=== PATIENT | female | born 1945 | race African-American/Black ===

== ENCOUNTER 2018-04-09 20:39 | Emergency (ER) | payer MEDICARE ==
[2018-04-09] MEDS: IOHEXOL 240 MG/ML 50ML VIAL. PO (22:32)
[2018-04-09] MEDS ORDERED: CONTRAST GIVEN. MC (22:45)
== END 2018-04-10 00:04 | disposition home or self-care (01) ==
LOC: ER 04-10 00:04
DX: Z43.1 Encounter for attention to gastrostomy (principal); I10 Essential (primary) hypertension; I25.10 Atherosclerotic heart disease of native coronary artery without angina pectoris; Z95.0 Presence of cardiac pacemaker; Z90.710 Acquired absence of both cervix and uterus; Z95.5 Presence of coronary angioplasty implant and graft; Z90.49 Acquired absence of other specified parts of digestive tract; Z88.0 Allergy status to penicillin; Z88.2 Allergy status to sulfonamides
CPT/HCPCS: 74018; 99283-25; 99284-25; Q9966

== ENCOUNTER 2018-04-16 18:23 | Inpatient (IN) | payer MEDICARE ==
[2018-04-16 18:38] LABS: ADD MAN DIFF? NO
[2018-04-16 18:41] LABS: BASO # 0.1 x10^3/uL (0.0-0.2); BASO % 1 % (0-3); EOS # 0.2 x10^3/uL (0.0-0.7); EOS % 2 % (0-3); HEMATOCRIT 46.7 % (36.0-47.0); HEMOGLOBIN 15.3 g/dL (12.0-15.5); LYMPH # 2.2 x10^3/uL (1.0-4.8); LYMPH % 29 % (24-48); MEAN CORPUSCULAR HEMOGLOBIN 29 pg (25-35); MEAN CORPUSCULAR HGB CONC 33 g/dL (31-37); MEAN CORPUSCULAR VOLUME 89 fL (79-100); MONO # 0.6 x10^3/uL (0.0-1.1); MONO % 8 % (0-9); NEUT # 4.6 x10^3uL (1.8-7.7); NEUT % 61 % (31-73); PLATELET COUNT 173 x10^3/uL (140-400); RED BLOOD COUNT 5.25 x10^6/uL (3.50-5.40); RED CELL DISTRIBUTION WIDTH 14.3 % (11.5-14.5); WHITE BLOOD COUNT 7.6 x10^3/uL (4.0-11.0)
[2018-04-16] MEDS: ASPIRIN CHEWABLE 81 MG TABLET. PO (18:45)
[2018-04-16 18:59] LABS: ETHANOL < 10 mg/dL (0-10)
[2018-04-16] MEDS: NITROGLYCERIN OINT 1 GM PACKET. TP (19:00)
[2018-04-16] MEDS: FUROSEMIDE 20 MG/2 ML VIAL. IVP (19:00)
[2018-04-16 19:01] LABS: ANION GAP 9 (6-14); BLOOD UREA NITROGEN 14 mg/dL (7-20); BUN/CREATININE RATIO 16 (6-20); CALCIUM 9.2 mg/dL (8.5-10.1); CARBON DIOXIDE 28 mmol/L (21-32); CHLORIDE 106 mmol/L (98-107); CREATININE 0.9 mg/dL (0.6-1.0); GFR 74.1; GLUCOSE 105 mg/dL (70-99); POTASSIUM 4.1 mmol/L (3.5-5.1); SODIUM 143 mmol/L (136-145)
[2018-04-16 19:04] LABS: ALBUMIN 3.7 g/dL (3.4-5.0); ALBUMIN/GLOBULIN RATIO 1.2 (1.0-1.7); ALK PHOS 130 U/L (46-116); ALT (SGPT) 44 U/L (14-59); AST (SGOT) 36 U/L (15-37); TOTAL BILIRUBIN 0.7 mg/dL (0.2-1.0); TOTAL PROTEIN 6.8 g/dL (6.4-8.2)
[2018-04-16 19:06] LABS: TROPONINI 0.023 ng/mL (0.000-0.055)
[2018-04-16 19:09] LABS: NT-PRO BNP 12898 pg/mL (0-124)
[2018-04-16] MEDS: IPRATRPIUM/ALBUTEROL 0.5/2.5MG 3 ML NEBU. NEB ×2 (19:16→20:00)
[2018-04-16] MEDS ORDERED: hydrALAZINE 20 MG/ML VIAL. IVP (19:45)
[2018-04-16] MEDS ORDERED: DOCUSATE SODIUM 100 MG CAPSULE. PO (19:45)
[2018-04-16 20:27] LABS: AMPHETAMINE/METHAMPHETAMINE NEG (NEG); BARBITURATES NEG (NEG); BENZODIAZEPINES NEG (NEG); CANNABINOIDS POS (NEG); COCAINE NEG (NEG); ETHANOL, URINE NEG (NEG); METHADONE NEG (NEG); OPIATES NEG (NEG); PHENCYCLIDINE NEG (NEG)
[2018-04-16 20:39] LABS: BASE EXCESS ABG -1 mmol/L (-3-3); HCO3 ABG 25 mmol/L (21-28); PCO2 ABG 46 mmHg (35-46); PH ABG 7.35 (7.35-7.45); PO2 ABG 109 mmHg (65-108); SAT O2 ABG 98 % (92-99)
[2018-04-16 20:40] LABS: FIO2 ABG 40
[2018-04-16] MEDS: FAMOTIDINE 20 MG TABLET. PO (21:24)
[2018-04-16] MEDS: ENOXAPARIN 30 MG/0.3 ML SYRINGE. SQ (21:24)
[2018-04-16] MEDS: methylPREDNISolone SOD SUCC PF 40 MG/ML VIAL. IV (21:24)
[2018-04-16] MEDS: ONDANSETRON PF 4 MG/2 ML VIAL. IV (22:09)
[2018-04-17 05:31] LABS: BASO % 0 % (0-3); EOS % 0 % (0-3); HEMATOCRIT 39.7 % (36.0-47.0); HEMOGLOBIN 12.9 g/dL (12.0-15.5); LYMPH # 0.5 x10^3/uL (1.0-4.8); LYMPH % 7 % (24-48); MEAN CORPUSCULAR HEMOGLOBIN 29 pg (25-35); MEAN CORPUSCULAR HGB CONC 33 g/dL (31-37); MEAN CORPUSCULAR VOLUME 89 fL (79-100); MONO # 0.2 x10^3/uL (0.0-1.1); MONO % 2 % (0-9); NEUT # 6.4 x10^3uL (1.8-7.7); NEUT % 91 % (31-73); PLATELET COUNT 141 x10^3/uL (140-400); RED BLOOD COUNT 4.46 x10^6/uL (3.50-5.40); RED CELL DISTRIBUTION WIDTH 14.2 % (11.5-14.5); WHITE BLOOD COUNT 7.1 x10^3/uL (4.0-11.0)
[2018-04-17 05:50] LABS: ADD MAN DIFF? YES
[2018-04-17 06:15] LABS: TROPONINI 0.026 ng/mL (0.000-0.055)
[2018-04-17 06:18] LABS: ANION GAP 6 (6-14); BLOOD UREA NITROGEN 15 mg/dL (7-20); CALCIUM 8.8 mg/dL (8.5-10.1); CARBON DIOXIDE 30 mmol/L (21-32); CHLORIDE 107 mmol/L (98-107); CREATININE 0.9 mg/dL (0.6-1.0); GFR 74.1; GLUCOSE 101 mg/dL (70-99); POTASSIUM 4.1 mmol/L (3.5-5.1); SODIUM 143 mmol/L (136-145)
[2018-04-17 07:18] LABS: % BANDS 1 % (0-9); % LYMPHS 5 % (24-48); % MONOS 2 % (0-10); % SEGS 92 % (35-66); PLT ESTIMATE ADEQUATE (ADEQUATE)
[2018-04-17] MEDS: IPRATRPIUM/ALBUTEROL 0.5/2.5MG 3 ML NEBU. NEB ×4 (08:48→19:34)
[2018-04-17] MEDS: methylPREDNISolone SOD SUCC PF 40 MG/ML VIAL. IV ×2 (08:53→21:32)
[2018-04-17] MEDS: FUROSEMIDE 40 MG/4 ML VIAL. IVP (08:53)
[2018-04-17] MEDS: CARVEDILOL 6.25 MG TABLET. PO (17:35)
[2018-04-17] MEDS: ATORVASTATIN CALCIUM 40 MG TABLET. PO (21:31)
[2018-04-17] MEDS: FAMOTIDINE 20 MG TABLET. PO (21:31)
[2018-04-17] MEDS: ENOXAPARIN 30 MG/0.3 ML SYRINGE. SQ (21:35)
[2018-04-18 04:49] LABS: ADD MAN DIFF? NO
[2018-04-18 05:04] LABS: BASO % 0 % (0-3); EOS % 0 % (0-3); HEMATOCRIT 37.8 % (36.0-47.0); HEMOGLOBIN 12.7 g/dL (12.0-15.5); LYMPH # 0.6 x10^3/uL (1.0-4.8); LYMPH % 4 % (24-48); MEAN CORPUSCULAR HEMOGLOBIN 30 pg (25-35); MEAN CORPUSCULAR HGB CONC 34 g/dL (31-37); MEAN CORPUSCULAR VOLUME 88 fL (79-100); MONO # 0.4 x10^3/uL (0.0-1.1); MONO % 2 % (0-9); NEUT # 14.4 x10^3uL (1.8-7.7); NEUT % 94 % (31-73); PLATELET COUNT 155 x10^3/uL (140-400); RED BLOOD COUNT 4.29 x10^6/uL (3.50-5.40); RED CELL DISTRIBUTION WIDTH 14.4 % (11.5-14.5); WHITE BLOOD COUNT 15.3 x10^3/uL (4.0-11.0)
[2018-04-18 05:18] LABS: ANION GAP 1 (6-14); BLOOD UREA NITROGEN 22 mg/dL (7-20); CALCIUM 9.1 mg/dL (8.5-10.1); CARBON DIOXIDE 33 mmol/L (21-32); CHLORIDE 104 mmol/L (98-107); GFR 65.6; GLUCOSE 158 mg/dL (70-99); POTASSIUM 4.4 mmol/L (3.5-5.1); SODIUM 138 mmol/L (136-145)
[2018-04-18] MEDS: IPRATRPIUM/ALBUTEROL 0.5/2.5MG 3 ML NEBU. NEB ×4 (07:51→19:23)
[2018-04-18] MEDS: FUROSEMIDE 40 MG/4 ML VIAL. IVP (08:18)
[2018-04-18] MEDS: methylPREDNISolone SOD SUCC PF 40 MG/ML VIAL. IV ×2 (08:18→20:24)
[2018-04-18] MEDS: CARVEDILOL 6.25 MG TABLET. PO ×2 (08:19→17:18)
[2018-04-18] MEDS: ASPIRIN ENTERIC COATED 325 MG TABLET.DR. PO (08:19)
[2018-04-18] MEDS ORDERED: FUROSEMIDE 40 MG/4 ML VIAL. IVP (09:00)
[2018-04-18] MEDS: ACETAMINOPHEN 325 MG TABLET. PO (12:27)
[2018-04-18] MEDS: ONDANSETRON PF 4 MG/2 ML VIAL. IV (17:37)
[2018-04-18] MEDS: MORPHINE SULFATE 2 MG/ML DISP.SYRIN. IV ×2 (17:37→20:24)
[2018-04-18] MEDS: NITROGLYCERIN SUBLINGUAL 0.4 MG BOTTLE OF 25. SL (19:07)
[2018-04-18 20:13] LABS: TROPONINI < 0.017 ng/mL (0.000-0.055)
[2018-04-18] MEDS: ENOXAPARIN 30 MG/0.3 ML SYRINGE. SQ (20:54)
[2018-04-18] MEDS: ATORVASTATIN CALCIUM 40 MG TABLET. PO (20:54)
[2018-04-18] MEDS: FAMOTIDINE 20 MG TABLET. PO (20:54)
[2018-04-18 22:49] LABS: TROPONINI 0.017 ng/mL (0.000-0.055)
[2018-04-19] MEDS: ALBUTEROL SULFATE 2.5 MG/3 ML NEBU. NEB (04:30)
[2018-04-19 05:27] LABS: ADD MAN DIFF? NO
[2018-04-19 05:34] LABS: BASO % 0 % (0-3); EOS % 0 % (0-3); HEMATOCRIT 37.7 % (36.0-47.0); HEMOGLOBIN 12.1 g/dL (12.0-15.5); LYMPH # 0.6 x10^3/uL (1.0-4.8); LYMPH % 4 % (24-48); MEAN CORPUSCULAR HEMOGLOBIN 29 pg (25-35); MEAN CORPUSCULAR HGB CONC 32 g/dL (31-37); MEAN CORPUSCULAR VOLUME 89 fL (79-100); MONO # 0.5 x10^3/uL (0.0-1.1); MONO % 4 % (0-9); NEUT # 12.6 x10^3uL (1.8-7.7); NEUT % 92 % (31-73); PLATELET COUNT 155 x10^3/uL (140-400); RED BLOOD COUNT 4.23 x10^6/uL (3.50-5.40); RED CELL DISTRIBUTION WIDTH 14.1 % (11.5-14.5); WHITE BLOOD COUNT 13.7 x10^3/uL (4.0-11.0)
[2018-04-19 05:44] LABS: BLOOD UREA NITROGEN 27 mg/dL (7-20); CARBON DIOXIDE 35 mmol/L (21-32); CHLORIDE 101 mmol/L (98-107); GFR 65.6; GLUCOSE 174 mg/dL (70-99); POTASSIUM 4.3 mmol/L (3.5-5.1); SODIUM 135 mmol/L (136-145)
[2018-04-19 05:53] LABS: TROPONINI < 0.017 ng/mL (0.000-0.055)
[2018-04-19] MEDS: IPRATRPIUM/ALBUTEROL 0.5/2.5MG 3 ML NEBU. NEB ×4 (07:23→19:53)
[2018-04-19] MEDS: methylPREDNISolone SOD SUCC PF 40 MG/ML VIAL. IV ×2 (09:58→21:02)
[2018-04-19] MEDS: ASPIRIN ENTERIC COATED 325 MG TABLET.DR. PO (09:59)
[2018-04-19] MEDS: FUROSEMIDE 40 MG/4 ML VIAL. IVP (09:59)
[2018-04-19] MEDS: CARVEDILOL 6.25 MG TABLET. PO ×2 (09:59→18:17)
[2018-04-19] MEDS: traMADol 50 MG TABLET PO ×2 (10:17→21:02)
[2018-04-19] MEDS: ATORVASTATIN CALCIUM 40 MG TABLET. PO (21:01)
[2018-04-19] MEDS: ENOXAPARIN 30 MG/0.3 ML SYRINGE. SQ (21:01)
[2018-04-19] MEDS: LISINOPRIL 5 MG TABLET. PO (21:01)
[2018-04-19] MEDS: FAMOTIDINE 20 MG TABLET. PO (21:01)
[2018-04-20] MEDS: ASPIRIN ENTERIC COATED 325 MG TABLET.DR. PO (08:38)
[2018-04-20] MEDS: CARVEDILOL 6.25 MG TABLET. PO (08:40)
[2018-04-20] MEDS: IPRATRPIUM/ALBUTEROL 0.5/2.5MG 3 ML NEBU. NEB ×2 (08:57→11:54)
[2018-04-20] MEDS: methylPREDNISolone SOD SUCC PF 40 MG/ML VIAL. IV (10:08)
[2018-04-20] MEDS: FUROSEMIDE 40 MG/4 ML VIAL. IVP (10:09)
[2018-04-20] MEDS: traMADol 50 MG TABLET PO ×2 (13:11→13:25)
[2018-04-21] MEDS ORDERED: FUROSEMIDE 40 MG TABLET. PO (09:00)
== END 2018-04-20 16:40 | disposition home or self-care (01) | DRG 291 ==
LOC: ER 18:23 → 2 NORTH 19:15
PROC: 5A09357 Assistance with Respiratory Ventilation, Less than 24 Consecutive Hours, Continuous Positive Airway Pressure (ICD-10-PCS; principal; 2018-04-16)
DX: I50.23 Acute on chronic systolic (congestive) heart failure (principal); J96.21 Acute and chronic respiratory failure with hypoxia; R64 Cachexia; I11.0 Hypertensive heart disease with heart failure; I25.10 Atherosclerotic heart disease of native coronary artery without angina pectoris; E78.5 Hyperlipidemia, unspecified; J44.9 Chronic obstructive pulmonary disease, unspecified; F19.10 Other psychoactive substance abuse, uncomplicated; F17.210 Nicotine dependence, cigarettes, uncomplicated; I25.5 Ischemic cardiomyopathy; I44.7 Left bundle-branch block, unspecified; F12.90 Cannabis use, unspecified, uncomplicated; G47.33 Obstructive sleep apnea (adult) (pediatric); I34.0 Nonrheumatic mitral (valve) insufficiency; K22.2 Esophageal obstruction; Z79.01 Long term (current) use of anticoagulants; Z90.710 Acquired absence of both cervix and uterus; Z88.0 Allergy status to penicillin; Z88.2 Allergy status to sulfonamides; Z93.1 Gastrostomy status; Z82.49 Family history of ischemic heart disease and other diseases of the circulatory system; Z95.5 Presence of coronary angioplasty implant and graft; Z95.810 Presence of automatic (implantable) cardiac defibrillator; Z87.442 Personal history of urinary calculi; Z82.3 Family history of stroke; Z90.49 Acquired absence of other specified parts of digestive tract; Z91.14 Patient's other noncompliance with medication regimen
CPT/HCPCS: 36415; 36600; 71045; 74018; 80048; 80053; 80307; 82805; 83880; 84484; 85007; 85025; 93005; 93306; 94618; 94640; 94660; 94760; 96374; 96375; 97161-GP; 97165-GO; 97530-GP; 99285; 99285-25; G0480; J1650; J1940; J2060; J2270; J2405; J2920; J7613; J7620

== ENCOUNTER 2018-05-21 20:58 | Inpatient (IN) | payer MEDICARE ==
[2018-05-21] MEDS ORDERED: CONTRAST GIVEN. MC (22:15)
[2018-05-21 23:02] LABS: ADD MAN DIFF? NO
[2018-05-21 23:07] LABS: BASO % 1 % (0-3); EOS # 0.7 x10^3/uL (0.0-0.7); EOS % 9 % (0-3); HEMATOCRIT 41.7 % (36.0-47.0); HEMOGLOBIN 13.9 g/dL (12.0-15.5); LYMPH # 1.5 x10^3/uL (1.0-4.8); LYMPH % 20 % (24-48); MEAN CORPUSCULAR HEMOGLOBIN 29 pg (25-35); MEAN CORPUSCULAR HGB CONC 33 g/dL (31-37); MEAN CORPUSCULAR VOLUME 88 fL (79-100); MONO # 0.5 x10^3/uL (0.0-1.1); MONO % 7 % (0-9); NEUT # 4.7 x10^3uL (1.8-7.7); NEUT % 64 % (31-73); PLATELET COUNT 194 x10^3/uL (140-400); RED BLOOD COUNT 4.76 x10^6/uL (3.50-5.40); RED CELL DISTRIBUTION WIDTH 14.1 % (11.5-14.5); WHITE BLOOD COUNT 7.5 x10^3/uL (4.0-11.0)
[2018-05-21 23:18] LABS: D-DIMER 1.61 ug/mlFEU (0.00-0.50)
[2018-05-21 23:18] LABS: ANION GAP 6 (6-14); BLOOD UREA NITROGEN 17 mg/dL (7-20); BUN/CREATININE RATIO 21 (6-20); CALCIUM 8.9 mg/dL (8.5-10.1); CARBON DIOXIDE 28 mmol/L (21-32); CHLORIDE 102 mmol/L (98-107); CREATININE 0.8 mg/dL (0.6-1.0); GFR 84.8; GLUCOSE 147 mg/dL (70-99); POTASSIUM 4.1 mmol/L (3.5-5.1); SODIUM 136 mmol/L (136-145)
[2018-05-21 23:24] LABS: ALBUMIN 2.7 g/dL (3.4-5.0); ALBUMIN/GLOBULIN RATIO 0.8 (1.0-1.7); ALK PHOS 111 U/L (46-116); ALT (SGPT) 16 U/L (14-59); AST (SGOT) 15 U/L (15-37); LIPASE 80 U/L (73-393); TOTAL BILIRUBIN 0.2 mg/dL (0.2-1.0)
[2018-05-21 23:26] LABS: TROPONINI < 0.017 ng/mL (0.000-0.055)
[2018-05-21 23:29] LABS: NT-PRO BNP 12283 pg/mL (0-124)
[2018-05-21] MEDS: IOHEXOL 300 MG/ML 100ML VIAL. IV (23:30)
[2018-05-21] MEDS: IV NORMAL SALINE 500ML BAG 500 ML IV (23:51)
[2018-05-21] MEDS: diphenhydrAMINE 50 MG/ML VIAL IVP (23:51)
[2018-05-21] MEDS: METOCLOPRAMIDE HCL 10 MG/2 ML VIAL. IV (23:51)
[2018-05-21] MEDS: fentaNYL PF VIAL 100 MCG/2 ML VIAL IV (23:53)
[2018-05-22] MEDS: ONDANSETRON PF 4 MG/2 ML VIAL. IV (01:43)
[2018-05-22] MEDS: fentaNYL PF VIAL 100 MCG/2 ML VIAL IV (01:44)
[2018-05-22 05:01] LABS: TROPONINI < 0.017 ng/mL (0.000-0.055)
[2018-05-22] MEDS: IPRATRPIUM/ALBUTEROL 0.5/2.5MG 3 ML NEBU. NEB ×4 (05:03→19:40)
[2018-05-22 05:05] LABS: BASE EXCESS ABG 3 mmol/L (-3-3); HCO3 ABG 29 mmol/L (21-28); PCO2 ABG 50 mmHg (35-46); PH ABG 7.38 (7.35-7.45); SAT O2 ABG 77 % (92-99)
[2018-05-22] MEDS: FUROSEMIDE 40 MG/4 ML VIAL. IVP (05:11)
[2018-05-22 05:22] LABS: PO2 ABG 44 mmHg (65-108)
[2018-05-22 10:04] LABS: TROPONINI < 0.017 ng/mL (0.000-0.055)
[2018-05-22] MEDS ORDERED: HYDROcodone/APAP 5/325MG 1 TAB TABLET PO (11:00)
[2018-05-22] MEDS ORDERED: ONDANSETRON PF 4 MG/2 ML VIAL. IV (11:00)
[2018-05-22] MEDS ORDERED: BENZOCAINE ONE 20% MUCOSAL SPRAY. MM (11:00)
[2018-05-22] MEDS ORDERED: traMADol 50 MG TABLET PO ×2 (11:00)
[2018-05-22] MEDS ORDERED: oxyCODONE/APAP 5/325 1 TAB TABLET PO (11:00)
[2018-05-22] MEDS ORDERED: hydrALAZINE 20 MG/ML VIAL. IVP (11:00)
[2018-05-22] MEDS ORDERED: MORPHINE SULFATE 2 MG/ML DISP.SYRIN. IV (11:00)
[2018-05-22] MEDS ORDERED: DOCUSATE SODIUM 100 MG CAPSULE. PO (11:00)
[2018-05-22] MEDS ORDERED: ACETAMINOPHEN 325 MG TABLET. PO (11:00)
[2018-05-22] MEDS ORDERED: ONDANSETRON ODT 4 MG TAB.RAPDIS. PO (11:15)
[2018-05-22] MEDS ORDERED: ALBUTEROL SULFATE 2.5 MG/3 ML NEBU. NEB (14:15)
[2018-05-22] MEDS: LISINOPRIL 20 MG TABLET PO (16:15)
[2018-05-22] MEDS: POTASSIUM CHLORIDE 20 MEQ TABLET.ER. PO (16:15)
[2018-05-22] MEDS: CARVEDILOL 6.25 MG TABLET. PO ×2 (16:16→16:40)
[2018-05-22] MEDS: ASPIRIN ENTERIC COATED 325 MG TABLET.DR. PO (16:16)
[2018-05-22] MEDS: CLOPIDOGREL BISULFATE 75 MG TABLET PO (16:16)
[2018-05-22] MEDS: CHOLECALCIFEROL (VITAMIN D3) 1,000 UNIT TABLET PO ×2 (16:16→17:21)
[2018-05-22] MEDS: PANTOPRAZOLE 40 MG TABLET.DR. PO (16:16)
[2018-05-22] MEDS: GABAPENTIN 300 MG CAPSULE. PO ×2 (16:16→20:29)
[2018-05-22] MEDS: FUROSEMIDE 40 MG TABLET. PO (16:16)
[2018-05-22] MEDS: ENOXAPARIN 40 MG/0.4 ML SYRINGE. SQ (16:17)
[2018-05-22] MEDS: ATORVASTATIN CALCIUM 40 MG TABLET. PO (20:29)
[2018-05-22] MEDS ORDERED: FAMOTIDINE 20 MG TABLET. PO (21:00)
[2018-05-23 04:50] LABS: ADD MAN DIFF? YES; BASO % 0 % (0-3); EOS # 1.4 x10^3/uL (0.0-0.7); EOS % 19 % (0-3); HEMATOCRIT 39.2 % (36.0-47.0); HEMOGLOBIN 13.1 g/dL (12.0-15.5); LYMPH # 1.7 x10^3/uL (1.0-4.8); LYMPH % 24 % (24-48); MEAN CORPUSCULAR HEMOGLOBIN 29 pg (25-35); MEAN CORPUSCULAR HGB CONC 34 g/dL (31-37); MEAN CORPUSCULAR VOLUME 88 fL (79-100); MONO # 0.5 x10^3/uL (0.0-1.1); MONO % 7 % (0-9); NEUT # 3.6 x10^3uL (1.8-7.7); NEUT % 50 % (31-73); PLATELET COUNT 184 x10^3/uL (140-400); RED BLOOD COUNT 4.47 x10^6/uL (3.50-5.40); RED CELL DISTRIBUTION WIDTH 14.4 % (11.5-14.5); WHITE BLOOD COUNT 7.2 x10^3/uL (4.0-11.0)
[2018-05-23 05:04] LABS: ANION GAP 1 (6-14); BLOOD UREA NITROGEN 21 mg/dL (7-20); CARBON DIOXIDE 35 mmol/L (21-32); CHLORIDE 102 mmol/L (98-107); CREATININE 0.9 mg/dL (0.6-1.0); GFR 74.1; GLUCOSE 91 mg/dL (70-99); POTASSIUM 3.9 mmol/L (3.5-5.1); SODIUM 138 mmol/L (136-145)
[2018-05-23] MEDS: IPRATRPIUM/ALBUTEROL 0.5/2.5MG 3 ML NEBU. NEB ×2 (07:06→12:52)
[2018-05-23] MEDS: GABAPENTIN 300 MG CAPSULE. PO (07:53)
[2018-05-23] MEDS: ASPIRIN ENTERIC COATED 325 MG TABLET.DR. PO (07:53)
[2018-05-23] MEDS: CARVEDILOL 6.25 MG TABLET. PO (07:54)
[2018-05-23] MEDS: CHOLECALCIFEROL (VITAMIN D3) 1,000 UNIT TABLET PO (07:54)
[2018-05-23] MEDS: CLOPIDOGREL BISULFATE 75 MG TABLET PO (07:54)
[2018-05-23] MEDS: LISINOPRIL 20 MG TABLET PO (07:54)
[2018-05-23] MEDS: FUROSEMIDE 40 MG TABLET. PO (07:54)
[2018-05-23] MEDS: PANTOPRAZOLE 40 MG TABLET.DR. PO (07:55)
[2018-05-23] MEDS: POTASSIUM CHLORIDE 20 MEQ TABLET.ER. PO (07:55)
[2018-05-23 11:23] LABS: % BANDS 1 % (0-9); % EOS 12 % (0-5); % LYMPHS 29 % (24-48); % MONOS 9 % (0-10); % SEGS 49 % (35-66); PLT ESTIMATE ADEQUATE (ADEQUATE)
[2018-05-23 12:47] LABS: BASE EXCESS ABG 4 mmol/L (-3-3); HCO3 ABG 30 mmol/L (21-28); PCO2 ABG 47 mmHg (35-46); PH ABG 7.42 (7.35-7.45); PO2 ABG 72 mmHg (65-108); SAT O2 ABG 94 % (92-99)
== END 2018-05-23 17:56 | disposition home or self-care (01) | DRG 291 ==
LOC: 2 SOUTH 05-22 00:14 → ER 20:58 → 2 SOUTH 05-22 01:47
DX: I11.0 Hypertensive heart disease with heart failure (principal); J96.02 Acute respiratory failure with hypercapnia; J96.01 Acute respiratory failure with hypoxia; I50.23 Acute on chronic systolic (congestive) heart failure; I25.10 Atherosclerotic heart disease of native coronary artery without angina pectoris; E78.5 Hyperlipidemia, unspecified; J44.9 Chronic obstructive pulmonary disease, unspecified; R13.10 Dysphagia, unspecified; K21.9 Gastro-esophageal reflux disease without esophagitis; K25.9 Gastric ulcer, unspecified as acute or chronic, without hemorrhage or perforation; I34.0 Nonrheumatic mitral (valve) insufficiency; I42.9 Cardiomyopathy, unspecified; I25.2 Old myocardial infarction; Z95.810 Presence of automatic (implantable) cardiac defibrillator; Z95.5 Presence of coronary angioplasty implant and graft; Z90.710 Acquired absence of both cervix and uterus; Z90.49 Acquired absence of other specified parts of digestive tract; Z93.1 Gastrostomy status; Z79.01 Long term (current) use of anticoagulants; Z88.0 Allergy status to penicillin; Z88.2 Allergy status to sulfonamides; Z88.8 Allergy status to other drugs, medicaments and biological substances; Z82.49 Family history of ischemic heart disease and other diseases of the circulatory system
CPT/HCPCS: 36415; 36600; 71046; 74177; 80048; 80053; 82805; 83690; 83880; 84484; 85007; 85025; 85379; 93005; 94640; 94760; 96374; 96375; 99285; 99285-25; J1200; J1650; J1940; J2405; J2765; J3010; J7040; J7620; Q9967

== ENCOUNTER 2018-06-22 02:30 | Inpatient (IN) | payer MEDICARE, OTHER ==
[~2018-06-22] VITALS: Ht 170.2 cm; Wt 47.2 kg
[~2018-06-22 02:30] MED LIST: ASPI325T11 PO; ATOR40TA59 PO; BENZ1SPR MM; CARV3.12 PO; CARV6.252 PO; CEPH-264 PO; CHOL2000 PO; CLOP75TA PO; FURO20TA3 PO; FURO40TA4 PO; GABA-586 PO; HYDR-2678 PO; HYDR-2758 PO; IPRA3AMP29 NEB; LEVO500T59 PO; LISI-334 PO; MINO100C PO; ONDA4TAB7 PO; OXYC-323 PO; POTA20TA12 PO; Pantoprazole PO; RANI150T21 PO; SIMV40TA3 PO; TRAM-48 PO
[2018-06-22] MEDS ORDERED: IPRATRPIUM/ALBUTEROL 0.5/2.5MG 3 ML NEBU. ONE (02:37)
--- NOTE | 2018-06-22 02:42 | PHYS DOC ---
Past Medical History Past Medical History: CAD, Hypertension, [place], Other Additional Past Medical Histor: patient is a pacemaker she is on Coumadin Past Surgical History: Appendectomy, Hysterectomy, Pacemaker, Other Additional Past Surgical Histo: cardiac stents; defibrilator Alcohol Use: None Drug Use: None Adult General Chief Complaint Chief Complaint: SHORTNESS OF BREATH HPI HPI Patient is a 73 year old female who presents with shortness of breath and posttussive emesis. She states that she has a history of COPD and started to have wheezing and coughing and severe shortness of breath over the last few hours. She presents to the emergency department 84% on room air. She is not on home oxygen. States that she has not recently been on any corticosteroids. She also admits to a diffuse nonradiating chest discomfort described as a tightness. Review of Systems Review of Systems Constitutional: Denies fever or chills Eyes: Denies change in visual acuity, redness, or eye pain Cardiovascular: No additional information not addressed in HPI GI: Denies abdominal pain, nausea, vomiting Integument: Denies rash or skin lesions Neurologic: Denies headache, focal weakness or sensory changes Endocrine: Denies polyuria or polydipsia All other systems were reviewed and found to be within normal limits, except as documented in this note. Family History Family History noncontributory Current Medications Current Medications Current Medications Medications (Trade) Dose Ordered Sig/Lisandra Start Time Stop Time Status Last Admin Dose Admin Albuterol/ Ipratropium (Duoneb) 3 ml RTQID 06/22/18 08:00 06/23/18 07:59 UNV Methylprednisolone Sodium Succinate (SOLU-Medrol 125MG VIAL) 125 mg 1X ONCE 06/22/18 02:45 06/22/18 02:46 DC 06/22/18 03:45 125 MG Nitroglycerin (Nitrostat) 0.4 mg PRN Q5MIN PRN 06/22/18 04:30 06/23/18 04:29 UNV Ondansetron HCl (Zofran) 4 mg PRN Q8HRS PRN 06/22/18 04:30 06/23/18 04:29 UNV Allergies Allergies Allergies Coded Allergies Type Severity Reaction Last Updated Verified Penicillins Allergy Intermediate hives 08/03/16 Yes Sulfa (Sulfonamide Antibiotics) Allergy Intermediate hives 08/03/16 Yes Physical Exam Physical Exam GENERAL: Awake, alert distress, tachypneic, mild retractions, speaks in 1 word sentences HEAD/NECK/EYES: Normocephalic, Neck supple, PERRL ENT trachea midline, bilateral JVD seen with coughing and thin body habitus RESP: Bilateral inspiratory and expiratory wheezing CV: Regular rhythm, normal perfusion ABD/GI: Soft, non-tender, no guarding, no rebound, no palpable pulsatile mass BACK: Inspection NL EXT: Neurovascularly intact, no deformities SKIN: Warm, dry NEURO: Oriented X3, normal speech, no motor deficits, no sensory deficits, CN II - XII intact PSYCH: Cooperative, appropriate affect Current Patient Data Vital Signs Vital Signs Date Time Temp Pulse Resp B/P (MAP) Pulse Ox O2 Delivery O2 Flow Rate FiO2 06/22/18 02:45 90 Nasal Cannula 1.5 06/22/18 02:30 97.4 73 24 174/82 (112) 97.4 Lab Values Laboratory Tests Test 06/22/18 02:40 White Blood Count 10.4 x10^3/uL (4.0-11.0) Red Blood Count 4.67 x10^6/uL (3.50-5.40) Hemoglobin 13.9 g/dL (12.0-15.5) Hematocrit 41.6 % (36.0-47.0) Mean Corpuscular Volume 89 fL (79-100) Mean Corpuscular Hemoglobin 30 pg (25-35) Mean Corpuscular Hemoglobin Concent 34 g/dL (31-37) Red Cell Distribution Width 14.8 % (11.5-14.5) H Platelet Count 189 x10^3/uL (140-400) Neutrophils (%) (Auto) 69 % (31-73) Lymphocytes (%) (Auto) 17 % (24-48) L Monocytes (%) (Auto) 6 % (0-9) Eosinophils (%) (Auto) 8 % (0-3) H Basophils (%) (Auto) 1 % (0-3) Neutrophils # (Auto) 7.2 x10^3uL (1.8-7.7) Lymphocytes # (Auto) 1.8 x10^3/uL (1.0-4.8) Monocytes # (Auto) 0.6 x10^3/uL (0.0-1.1) Eosinophils # (Auto) 0.8 x10^3/uL (0.0-0.7) H Basophils # (Auto) 0.0 x10^3/uL (0.0-0.2) D-Dimer (Jenny) 1.13 ug/mlFEU (0.00-0.50) H Sodium Level 140 mmol/L (136-145) Potassium Level 4.3 mmol/L (3.5-5.1) Chloride Level 103 mmol/L (98-107) Carbon Dioxide Level 31 mmol/L (21-32) Anion Gap 6 (6-14) Blood Urea Nitrogen 23 mg/dL (7-20) H Creatinine 1.2 mg/dL (0.6-1.0) H Estimated GFR (Cockcroft-Gault) 53.1 BUN/Creatinine Ratio 19 (6-20) Glucose Level 106 mg/dL (70-99) H Calcium Level 10.1 mg/dL (8.5-10.1) Total Bilirubin 0.3 mg/dL (0.2-1.0) Aspartate Amino Transferase (AST) 26 U/L (15-37) Alanine Aminotransferase (ALT) 27 U/L (14-59) Alkaline Phosphatase 120 U/L (46-116) H Troponin I Quantitative < 0.017 ng/mL (0.000-0.055) MF-Xuv-S-Type Natriuretic Peptide 2675 pg/mL (0-124) H Total Protein 7.5 g/dL (6.4-8.2) Albumin 3.4 g/dL (3.4-5.0) Albumin/Globulin Ratio 0.8 (1.0-1.7) L Lipase 138 U/L (73-393) Laboratory Tests 06/22/18 02:40 Laboratory Tests 06/22/18 02:40 EKG EKG EKG interpreted by me at 4:02 AM reveals sinus rhythm at 78 bpm with septal Q waves, nonspecific ST and T-wave changes, interventricular block with QRS at 128 ms. No previous available currently. Radiology/Procedures Radiology/Procedures Portable chest x ray does not show any new confluent infiltrate to suggest bacterial pneumonia] Impressions: Hypoxemia Bronchospasm Congestive heart failure Course & Med Decision Making Course & Med Decision Making Pertinent Labs and Imaging studies reviewed. (See chart for details) Medical record review reveals the patient has severe systolic heart failure with an ejection fraction most recently at 10%. Here in our emergency department she has had near complete improvement with DuoNeb, Solu-Medrol and oxygen. She was very wheezy initially. Admitting for observation, nasal cannula oxygen, reassessment. D-dimer of uncertain significance. I really doubt VTE at this point, I atif this lab initially when patient was in hypoxic respiratory distress. After record review and thorough exam i think we can forego CT scan at this time, mild CKD. Will order bilateral lower extremity Dopplers and can VQ scan if suspicious Plan: Admission for oxygen, further eval. Tele. Admitting physician: Dr. Tarah Steven Disclaimer Tenisha Disclaimer This electronic medical record was generated, in whole or in part, using a voice recognition dictation system. Departure Departure Condition: STABLE Referrals: PARK ARNOLD Jr, MD (PCP) VISH RENEE DO Jun 22, 2018 02:42
[2018-06-22] MEDS ORDERED: methylPREDNISolone SOD SUCC PF 125 MG/2 ML VIAL. IV ONE (02:45)
[2018-06-22] MEDS ORDERED: IPRATRPIUM/ALBUTEROL 0.5/2.5MG 3 ML NEBU. NEB ONE (02:45)
[2018-06-22] MEDS ORDERED: ONDANSETRON PF 4 MG/2 ML VIAL. IV ONE (02:45)
[2018-06-22 02:51] LABS: BASO % 1 % (0-3); EOS # 0.8 x10^3/uL (0.0-0.7); EOS % 8 % (0-3); HEMATOCRIT 41.6 % (36.0-47.0); HEMOGLOBIN 13.9 g/dL (12.0-15.5); LYMPH # 1.8 x10^3/uL (1.0-4.8); LYMPH % 17 % (24-48); MEAN CORPUSCULAR HEMOGLOBIN 30 pg (25-35); MEAN CORPUSCULAR HGB CONC 34 g/dL (31-37); MEAN CORPUSCULAR VOLUME 89 fL (79-100); MONO # 0.6 x10^3/uL (0.0-1.1); MONO % 6 % (0-9); NEUT # 7.2 x10^3uL (1.8-7.7); NEUT % 69 % (31-73); PLATELET COUNT 189 x10^3/uL (140-400); RED BLOOD COUNT 4.67 x10^6/uL (3.50-5.40); RED CELL DISTRIBUTION WIDTH 14.8 % (11.5-14.5); WHITE BLOOD COUNT 10.4 x10^3/uL (4.0-11.0)
[2018-06-22 03:07] LABS: CALCIUM 10.1 mg/dL (8.5-10.1); CREATININE 1.2 mg/dL (0.6-1.0); GFR 53.1; POTASSIUM 4.3 mmol/L (3.5-5.1)
[2018-06-22 03:13] LABS: ALBUMIN 3.4 g/dL (3.4-5.0); ALBUMIN/GLOBULIN RATIO 0.8 (1.0-1.7); TOTAL BILIRUBIN 0.3 mg/dL (0.2-1.0); TOTAL PROTEIN 7.5 g/dL (6.4-8.2)
[2018-06-22] MEDS ORDERED: ONDANSETRON PF 4 MG/2 ML VIAL. IV PRN ×2 (04:30→09:15)
[2018-06-22] MEDS ORDERED: NITROGLYCERIN SUBLINGUAL 0.4 MG BOTTLE OF 25. SL PRN (04:30)
--- NOTE | 2018-06-22 05:02 | RAD ---
INDICATION: ELEVATED D DIMER DYSPNEA COMPARISON: None. TECHNIQUE: Grayscale, color and doppler ultrasound images were obtained of the bilateral lower extremity venous vasculature. RIGHT: No thrombus identified in the common femoral vein, femoral vein, popliteal vein or visualized calf veins. LEFT: No thrombus identified in the common femoral vein, femoral vein, popliteal vein or visualized calf veins. Calcific atherosclerosis. IMPRESSION: 1. No thrombus identified in deep venous system of bilateral lower extremities. Electronically signed by: Kody Jaimes MD (06/22/2018 4:59 AM) [facility]
[2018-06-22] MEDS ORDERED: PANT20TA2 PO (06:15)
--- NOTE | 2018-06-22 06:49 | EKG ---
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
[2018-06-22 07:00] VITALS: BP 140/72
[2018-06-22] MEDS: IPRATRPIUM/ALBUTEROL 0.5/2.5MG 3 ML NEBU. NEB SCH ×4 (07:01→19:29)
--- NOTE | 2018-06-22 08:03 | RAD ---
Portable chest, 06/22/2018: HISTORY: Shortness of breath Comparison is made to a study from 05/21/2018. A left-sided transvenous pacemaker remains in place with 2 leads extending into the right heart. The heart is mildly enlarged. There is calcific plaquing of the aorta. There are prominent reticular opacities in the lungs, worse in the right upper chest. These are unchanged. Similar findings were present on several older studies. A component of fibrosis is suspected. No new pulmonary abnormality is seen. There are calcified mediastinal and right hilar lymph nodes due to old granulomatous disease. No pleural fluid is evident. IMPRESSION: 1. Unchanged reticular pulmonary opacities, worse on the right, suggesting fibrosis with a possible superimposed component of residual pneumonitis. 2. No new abnormality is detected. Electronically signed by: Steven Latif MD (06/22/2018 7:59 AM) [facility]
[2018-06-22] MEDS ORDERED: ACETAMINOPHEN 500 MG TABLET PO PRN (09:00)
[2018-06-22] MEDS ORDERED: ACETAMINOPHEN/CODEINE 300/30MG TABLET. PO PRN (09:00)
[2018-06-22 09:51] VITALS: BP 140/72
[2018-06-22] MEDS ORDERED: ONDANSETRON ODT 4 MG TAB.RAPDIS. PO PRN (10:00)
[2018-06-22] MEDS: BENZONATATE 100 MG CAPSULE. PO SCH ×3 (10:00→20:43)
[2018-06-22] MEDS: CLOPIDOGREL BISULFATE 75 MG TABLET PO SCH (10:30)
[2018-06-22] MEDS: LISINOPRIL 20 MG TABLET PO SCH (10:30)
[2018-06-22] MEDS: CARVEDILOL 6.25 MG TABLET. PO SCH ×2 (10:30→17:00)
[2018-06-22] MEDS: ASPIRIN ENTERIC COATED 325 MG TABLET.DR. PO SCH (10:31)
[2018-06-22] MEDS: FUROSEMIDE 40 MG TABLET. PO SCH (10:31)
[2018-06-22] MEDS: PANTOPRAZOLE 40 MG TABLET.DR. PO SCH (10:31)
[2018-06-22] MEDS: guaiFENesin DM 200MG/20MG 10 ML SYRUP PO PRN ×2 (10:31→20:43)
[2018-06-22] MEDS: CHOLECALCIFEROL (VITAMIN D3) 1,000 UNIT TABLET PO SCH ×2 (10:31→18:20)
[2018-06-22] MEDS: traMADol 50 MG TABLET PO PRN (10:31)
[2018-06-22 11:19] VITALS: BP 110/57
--- NOTE | 2018-06-22 12:56 | PDOC1 ---
History and Physical Date of Admission Date of Admission DATE: 06/22/18 TIME: 12:48 Identification/Chief Complaint Chief Complaint Can't breathe, chest pressure, it is a task to breathe Source Source: Caregiver, Chart review, Patient History of Present Illness History of Present Illness Pleasant 73-year-old female known to Dr. Espino, indwelling pacer may be for a. fib? On Plavix? Admitted because of 84% saturations at the ER. Hx COPD per documentation but she claims some docs say she does not have COPD, on albuterol at homePrev smoker, less than a pack a day, quit some 1-2 yrs ago, . Her main issue is it is a task for her to breathe. Chest pressure and heaviness she describes as if I were standing on her chest. She does have history of cardiac issues, indwelling pacemaker. Unknown if she has actually coronary artery disease. Chest x-ray shows inflammatory changes but no consolidation. Ultrasound otherwise negative for DVT this was done because of low sats at the ER 84% with a d-dimer 1.13 The rest of the labs okay, except creatinine GFR 53, creatinine 1.2 Normal hemoglobin and normal WBC. I am consulted pulmonary and cardiology given the concerning chest heaviness and pressure known pacemaker, . Also pulmonary for hypoxia. SHe claims she was just here 2 months ago and a CAT scan of the chest was done when she was admitted for the same. Reviewed her old records, she did have an abdominal pelvis CT but not a chest CT. We'll order one Past Medical History Cardiovascular: CAD, CHF, HTN, Syncope, Hyperlipidemia Pulmonary: COPD CENTRAL NERVOUS SYSTEM: Other GI: No pertinent hx, Other Heme/Onc: No pertinent hx Hepatobiliary: No pertinent hx Psych: No pertinent hx Musculoskeletal: Other Rheumatologic: No pertinent hx Infectious disease: No pertinent hx Renal/: UTI Endocrine: No pertinent hx Past Surgical History Past Surgical History: Pacemaker, Appendectomy, Hysterectomy, Other Family History Family History: Coronary Artery Disease Social History Smoke: Quit ALCOHOL: none Drugs: Marijuana Current Medications Current Medications Current Medications Albuterol/ Ipratropium (Duoneb) 3 ml STK-MED ONCE .ROUTE ; Start 06/22/18 at 02: 37; Stop 06/22/18 at 02:38; Status DC Methylprednisolone Sodium Succinate (SOLU-Medrol 125MG VIAL) 125 mg 1X ONCE IV Last administered on 06/22/18at 03:45; Start 06/22/18 at 02:45; Stop 06/22/18 at 02:46; Status DC Albuterol/ Ipratropium (Duoneb) 3 ml 1X ONCE NEB Last administered on at 02:45; Start 06/22/18 at 02:45; Stop 06/22/18 at 02:46; Status DC Ondansetron HCl (Zofran) 4 mg 1X ONCE IV Last administered on 06/22/18at 03:45 ; Start 06/22/18 at 02:45; Stop 06/22/18 at 02:46; Status DC Ondansetron HCl (Zofran) 4 mg PRN Q8HRS PRN IV NAUSEA/VOMITING; Start 06/22/18 at 04:30; Stop 06/22/18 at 09:02; Status DC Nitroglycerin (Nitrostat) 0.4 mg PRN Q5MIN PRN SL CHEST PAIN; Start 06/22/18 at 04:30; Stop 06/23/18 at 04:29 Albuterol/ Ipratropium (Duoneb) 3 ml RTQID NEB Last administered on 06/22/18at 11:15; Start 06/22/18 at 08:00; Stop 06/23/18 at 07:59 Ondansetron HCl (Zofran) 4 mg PRN Q6HRS PRN IV NAUSEA/VOMITING; Start 06/22/18 at 09:15 Benzonatate (Tessalon Perle) 100 mg [id number] PO ; Start 06/22/18 at 10:00 Acetaminophen (Tylenol) 500 mg PRN Q6HRS PRN PO MILD PAIN / TEMP; Start at 09:00 Acetaminophen/ Codeine Phosphate (Tylenol #3) 1 tab PRN Q6HRS PRN PO MODERATE PAIN; Start 06/22/18 at 09:00 Guaifenesin (Robitussin Dm) 10 ml PRN Q6HRS PRN PO COUGH Last administered on at 10:31; Start 06/22/18 at 09:00 Aspirin (Ecotrin) 325 mg DAILY PO Last administered on 06/22/18at 10:31; Start 06/22/18 at 10:00 Atorvastatin Calcium (Lipitor) 40 mg HS PO ; Start 06/22/18 at 21:00 Carvedilol (Coreg) 6.25 mg BIDWMEALS PO Last administered on 06/22/18at 10:30; Start 06/22/18 at 10:00 Clopidogrel Bisulfate (Plavix) 75 mg DAILY PO Last administered on 06/22/18at 10 :30; Start 06/22/18 at 10:00 Furosemide (Lasix) 40 mg DAILY PO Last administered on 06/22/18at 10:31; Start 06/22/18 at 10:00 Lisinopril (Prinivil) 20 mg DAILY PO Last administered on 06/22/18 10:30; Start 06/22/18 at 10:00 Tramadol HCl (Ultram) 50 mg Q6HRS PRN PO MILD TO MODERATE PAIN Last administered on 06/22/18at 10:31; Start 06/22/18 at 09:15 Vitamin D (Vitamin D3) 1,000 unit BIDAFTMEAL PO Last administered on 06/22/18at 10:31; Start 06/22/18 at 10:00 Ondansetron HCl (Zofran Odt) 8 mg PRN Q8HRS PRN PO NAUSEA/VOMITING; Start 06/22 at 10:00 Pantoprazole Sodium (Protonix) 40 mg DAILYAC PO Last administered on 06/22/18at 10:31; Start 06/22/18 at 11:30 Active Scripts Active Furosemide 40 Mg Tablet 40 Mg PO DAILY 30 Days Zofran (Ondansetron Hcl) 4 Mg Tablet 1 Tab PO Q8HRS PRN Reported Protonix (Pantoprazole Sodium) 20 Mg Tablet.dr 40 Mg PO PRN DAILY PRN Ultram (Tramadol Hcl) 50 Mg Tablet 50 Mg PO Q6HRS PRN Duoneb 0.5-3(2.5) Mg/3 Ml (Albuterol/Ipratropium) 3 Ml Ampul.neb 3 Ml NEB QID Atorvastatin Calcium 40 Mg Tablet 40 Mg PO HS Lisinopril 20 Mg Tablet 20 Mg PO DAILY Carvedilol 6.25 Mg Tablet 6.25 Mg PO BIDWMEALS Vitamin D (Cholecalciferol (Vitamin D3)) 2,000 Unit Capsule 2,000 Unit PO BIDAFTMEAL Aspirin Ec (Aspirin) 325 Mg Tablet.dr 325 Mg PO DAILY Clopidogrel (Clopidogrel Bisulfate) 75 Mg Tablet 75 Mg PO DAILY Allergies Allergies: Coded Allergies: Penicillins (Verified Allergy, Intermediate, hives, 08/03/16) Sulfa (Sulfonamide Antibiotics) (Verified Allergy, Intermediate, hives, ) ROS Review of System as per history of present illness, the rest of ROS 14 point negative Pos for : SOA, weight loss? Chest pressure Physical Exam General: Alert, Oriented X3, Cooperative, No acute distress HEENT: Atraumatic, PERRLA, EOMI Lungs: Normal air movement, Other (decrease breath sounds, no crackles, no appreciable wheezing) Heart: S1S2, RRR, no thrills, no rubs Cardiovascular: S1, S2 Breasts: Normal, Rt breast nml w/o mass, Lt breast nml w/o mass, Nipples normal Abdomen: Normal bowel sounds, Soft, No tenderness, No hepatosplenomegaly, No masses Rectal Exam: not examined PELVIC: Nml ext genitalia Extremities: No clubbing, No cyanosis, No edema, Normal pulses, No tenderness/ swelling Skin: No rashes, No breakdown, No significant lesion Neuro: Normal gait, Normal speech, Strength at 5/5 X4 ext, Normal tone, Sensation intact, Cranial nerves 3-12 NL, Reflexes 2+ Psych/Mental Status: Mental status NL, Mood NL Vitals Vitals Vital Signs Date Time Temp Pulse Resp B/P (MAP) Pulse Ox O2 Delivery O2 Flow Rate FiO2 06/22/18 11:19 98.6 75 20 110/57 (74) 97 Nasal Cannula 1.5 98.6 Labs Labs Laboratory Tests Test 06/22/18 02:40 06/22/18 07:20 White Blood Count 10.4 x10^3/uL (4.0-11.0) Red Blood Count 4.67 x10^6/uL (3.50-5.40) Hemoglobin 13.9 g/dL (12.0-15.5) Hematocrit 41.6 % (36.0-47.0) Mean Corpuscular Volume 89 fL (79-100) Mean Corpuscular Hemoglobin 30 pg (25-35) Mean Corpuscular Hemoglobin Concent 34 g/dL (31-37) Red Cell Distribution Width 14.8 % (11.5-14.5) Platelet Count 189 x10^3/uL (140-400) Neutrophils (%) (Auto) 69 % (31-73) Lymphocytes (%) (Auto) 17 % (24-48) Monocytes (%) (Auto) 6 % (0-9) Eosinophils (%) (Auto) 8 % (0-3) Basophils (%) (Auto) 1 % (0-3) Neutrophils # (Auto) 7.2 x10^3uL (1.8-7.7) Lymphocytes # (Auto) 1.8 x10^3/uL (1.0-4.8) Monocytes # (Auto) 0.6 x10^3/uL (0.0-1.1) Eosinophils # (Auto) 0.8 x10^3/uL (0.0-0.7) Basophils # (Auto) 0.0 x10^3/uL (0.0-0.2) D-Dimer (Jenny) 1.13 ug/mlFEU (0.00-0.50) Sodium Level 140 mmol/L (136-145) Potassium Level 4.3 mmol/L (3.5-5.1) Chloride Level 103 mmol/L (98-107) Carbon Dioxide Level 31 mmol/L (21-32) Anion Gap 6 (6-14) Blood Urea Nitrogen 23 mg/dL (7-20) Creatinine 1.2 mg/dL (0.6-1.0) Estimated GFR (Cockcroft-Gault) 53.1 BUN/Creatinine Ratio 19 (6-20) Glucose Level 106 mg/dL (70-99) Calcium Level 10.1 mg/dL (8.5-10.1) Total Bilirubin 0.3 mg/dL (0.2-1.0) Aspartate Amino Transf (AST/SGOT) 26 U/L (15-37) Alanine Aminotransferase (ALT/SGPT) 27 U/L (14-59) Alkaline Phosphatase 120 U/L (46-116) Troponin I Quantitative < 0.017 ng/mL (0.000-0.055) < 0.017 ng/mL (0.000-0.055) NQ-Jqz-A-Type Natriuretic Peptide 2675 pg/mL (0-124) Total Protein 7.5 g/dL (6.4-8.2) Albumin 3.4 g/dL (3.4-5.0) Albumin/Globulin Ratio 0.8 (1.0-1.7) Lipase 138 U/L (73-393) Laboratory Tests Test 06/22/18 02:40 06/22/18 07:20 White Blood Count 10.4 x10^3/uL (4.0-11.0) Red Blood Count 4.67 x10^6/uL (3.50-5.40) Hemoglobin 13.9 g/dL (12.0-15.5) Hematocrit 41.6 % (36.0-47.0) Mean Corpuscular Volume 89 fL (79-100) Mean Corpuscular Hemoglobin 30 pg (25-35) Mean Corpuscular Hemoglobin Concent 34 g/dL (31-37) Red Cell Distribution Width 14.8 % (11.5-14.5) Platelet Count 189 x10^3/uL (140-400) Neutrophils (%) (Auto) 69 % (31-73) Lymphocytes (%) (Auto) 17 % (24-48) Monocytes (%) (Auto) 6 % (0-9) Eosinophils (%) (Auto) 8 % (0-3) Basophils (%) (Auto) 1 % (0-3) Neutrophils # (Auto) 7.2 x10^3uL (1.8-7.7) Lymphocytes # (Auto) 1.8 x10^3/uL (1.0-4.8) Monocytes # (Auto) 0.6 x10^3/uL (0.0-1.1) Eosinophils # (Auto) 0.8 x10^3/uL (0.0-0.7) Basophils # (Auto) 0.0 x10^3/uL (0.0-0.2) D-Dimer (Jenny) 1.13 ug/mlFEU (0.00-0.50) Sodium Level 140 mmol/L (136-145) Potassium Level 4.3 mmol/L (3.5-5.1) Chloride Level 103 mmol/L (98-107) Carbon Dioxide Level 31 mmol/L (21-32) Anion Gap 6 (6-14) Blood Urea Nitrogen 23 mg/dL (7-20) Creatinine 1.2 mg/dL (0.6-1.0) Estimated GFR (Cockcroft-Gault) 53.1 BUN/Creatinine Ratio 19 (6-20) Glucose Level 106 mg/dL (70-99) Calcium Level 10.1 mg/dL (8.5-10.1) Total Bilirubin 0.3 mg/dL (0.2-1.0) Aspartate Amino Transf (AST/SGOT) 26 U/L (15-37) Alanine Aminotransferase (ALT/SGPT) 27 U/L (14-59) Alkaline Phosphatase 120 U/L (46-116) Troponin I Quantitative < 0.017 ng/mL (0.000-0.055) < 0.017 ng/mL (0.000-0.055) PU-Lyp-Z-Type Natriuretic Peptide 2675 pg/mL (0-124) Total Protein 7.5 g/dL (6.4-8.2) Albumin 3.4 g/dL (3.4-5.0) Albumin/Globulin Ratio 0.8 (1.0-1.7) Lipase 138 U/L (73-393) VTE Prophylaxis Ordered VTE Prophylaxis Devices: Yes VTE Pharmacological Prophylaxi: Yes Assessment/Plan Assessment/Plan Chest heaviness Indwelling pacer History of A. fib? On Plavix? Undernourished-BMI 15.3 Hypoxic respiratory failure POA, 84% sats at ER Elevated d-dimer, no DVT on US Inflammatory changes on chest x-ray History of COPD by documentation-only on albuterol when necessary at home PLAN: pulmo and cards consults Cardiac diet home meds have been reconciled Cough medicine Jasmyne's Nutrition consult for the BMI of 15 Further recs pending above MIRANDA MORENO MD Jun 22, 2018 12:56
[2018-06-22] MEDS ORDERED: IOHEXOL 300 MG/ML 100ML VIAL. IV ONE (13:30)
[2018-06-22] MEDS ORDERED: CONTRAST GIVEN. MC PRN (13:45)
--- NOTE | 2018-06-22 14:32 | PDOC2 ---
CARDIAC CONSULT DATE OF CONSULT Date of Consult DATE: 06/22/18 TIME: 14:22 REASON FOR CONSULT Reason for Consult: Chest heaviness REFERRING PHYSICIAN Referring Physician: Dawood SOURCE Source: Chart review, Patient HISTORY OF PRESENT ILLNESS HISTORY OF PRESENT ILLNESS This is a pleasant 73 yo female admitted for complains of SOA. Reports that she has always been SOA particularly with exertion but this has been increasing in the last 3 weeks. Also she has had episodes of wheezing and increasing coughing with clear to white sputum. Recently she started having epigastric tenderness which sometimes radiates up to her throat and feeling tightness but also has some burning sensation. She has chronic dysphagia and has PEG tube to which she feeds herself with TF about 10 cans daily. She has COPD and hx of CAD and valvular insufficiency. No leg swelling, jaw or arm pain. No diaphoresis, fever or chills. Upon admission adn O2 placement her SOA has improved significantly but remains to have coughing which is mainly nonproductive. Her pain to her chest and epigastric region are reproducible. With her episodic and intractable cough sometimes she does feel like some stuff goes up to her throat but has not coughed out any TF contents so far. Verbalized compliance with her medications. PAST MEDICAL HISTORY Past Medical History Cardiovascular: CAD, CHF, HTN, Syncope, Hyperlipidemia, severe MR Pulmonary: COPD CENTRAL NERVOUS SYSTEM: Other GI: GERD Heme/Onc: No pertinent hx Hepatobiliary: No pertinent hx Psych: No pertinent hx Musculoskeletal: Other Rheumatologic: No pertinent hx Infectious disease: No pertinent hx Renal/: UTI Endocrine: No pertinent hx PAST SURGICAL HISTORY Past Surgical History AICD, Appendectomy, Hysterectomy, Other (coronary stents) FAMILY HISTORY Family History: Coronary Artery Disease SOCIAL HISTORY Smoke: No ALCOHOL: none Drugs: None Lives: with Family CURRENT MEDICATIONS CURRENT MEDICATIONS Current Medications Medications (Trade) Dose Ordered Sig/Lisandra Route PRN Reason Start Time Stop Time Status Last Admin Dose Admin Methylprednisolone Sodium Succinate (SOLU-Medrol 125MG VIAL) 125 mg 1X ONCE IV 06/22/18 02:45 06/22/18 02:46 DC 06/22/18 03:45 Albuterol/ Ipratropium (Duoneb) 3 ml 1X ONCE NEB 06/22/18 02:45 06/22/18 02:46 DC 06/22/18 02:45 Ondansetron HCl (Zofran) 4 mg 1X ONCE IV 06/22/18 02:45 06/22/18 02:46 DC 06/22/18 03:45 Albuterol/ Ipratropium (Duoneb) 3 ml RTQID NEB 06/22/18 08:00 06/23/18 07:59 06/22/18 11:15 Guaifenesin (Robitussin Dm) 10 ml PRN Q6HRS PRN PO COUGH 06/22/18 09:00 06/22/18 10:31 Aspirin (Ecotrin) 325 mg DAILY PO 06/22/18 10:00 06/22/18 10:31 Carvedilol (Coreg) 6.25 mg BIDWMEALS PO 06/22/18 10:00 06/22/18 10:30 Clopidogrel Bisulfate (Plavix) 75 mg DAILY PO 06/22/18 10:00 06/22/18 10:30 Furosemide (Lasix) 40 mg DAILY PO 06/22/18 10:00 06/22/18 10:31 Lisinopril (Prinivil) 20 mg DAILY PO 06/22/18 10:00 06/22/18 10:30 Tramadol HCl (Ultram) 50 mg Q6HRS PRN PO MILD TO MODERATE PAIN 06/22/18 09:15 06/22/18 10:31 Vitamin D (Vitamin D3) 1,000 unit BIDAFTMEAL PO 06/22/18 10:00 06/22/18 10:31 Pantoprazole Sodium (Protonix) 40 mg DAILYAC PO 06/22/18 11:30 06/22/18 10:31 ALLERGIES ALLERGIES: Coded Allergies: Penicillins (Verified Allergy, Intermediate, hives, 08/03/16) Sulfa (Sulfonamide Antibiotics) (Verified Allergy, Intermediate, hives, ) ROS Review of System 14 point ROS evaluated with pertinent positives noted per HPI PHYSICAL EXAM General: Alert, Oriented X3, Cooperative, No acute distress HEENT: Atraumatic, Mucous membr. moist/pink Lungs: Other (diminished with faint Upper wheeze) Heart: Regular rate Abdomen: Soft, No tenderness Extremities: No cyanosis, No edema Skin: No breakdown, No significant lesion Neuro: Normal speech, Sensation intact Psych/Mental Status: Mental status NL, Mood NL MUSCULOSKELETAL: Osteoarthritic changes both hands VITALS VITALS Vital Signs Date Time Temp Pulse Resp B/P (MAP) Pulse Ox O2 Delivery O2 Flow Rate FiO2 06/22/18 11:30 Nasal Cannula 2.0 06/22/18 11:19 98.6 75 20 110/57 (74) 97 98.6 LABS Lab: Laboratory Tests Test 06/22/18 02:40 06/22/18 07:20 White Blood Count 10.4 x10^3/uL (4.0-11.0) Red Blood Count 4.67 x10^6/uL (3.50-5.40) Hemoglobin 13.9 g/dL (12.0-15.5) Hematocrit 41.6 % (36.0-47.0) Mean Corpuscular Volume 89 fL (79-100) Mean Corpuscular Hemoglobin 30 pg (25-35) Mean Corpuscular Hemoglobin Concent 34 g/dL (31-37) Red Cell Distribution Width 14.8 % (11.5-14.5) Platelet Count 189 x10^3/uL (140-400) Neutrophils (%) (Auto) 69 % (31-73) Lymphocytes (%) (Auto) 17 % (24-48) Monocytes (%) (Auto) 6 % (0-9) Eosinophils (%) (Auto) 8 % (0-3) Basophils (%) (Auto) 1 % (0-3) Neutrophils # (Auto) 7.2 x10^3uL (1.8-7.7) Lymphocytes # (Auto) 1.8 x10^3/uL (1.0-4.8) Monocytes # (Auto) 0.6 x10^3/uL (0.0-1.1) Eosinophils # (Auto) 0.8 x10^3/uL (0.0-0.7) Basophils # (Auto) 0.0 x10^3/uL (0.0-0.2) D-Dimer (Jenny) 1.13 ug/mlFEU (0.00-0.50) Sodium Level 140 mmol/L (136-145) Potassium Level 4.3 mmol/L (3.5-5.1) Chloride Level 103 mmol/L (98-107) Carbon Dioxide Level 31 mmol/L (21-32) Anion Gap 6 (6-14) Blood Urea Nitrogen 23 mg/dL (7-20) Creatinine 1.2 mg/dL (0.6-1.0) Estimated GFR (Cockcroft-Gault) 53.1 BUN/Creatinine Ratio 19 (6-20) Glucose Level 106 mg/dL (70-99) Calcium Level 10.1 mg/dL (8.5-10.1) Total Bilirubin 0.3 mg/dL (0.2-1.0) Aspartate Amino Transf (AST/SGOT) 26 U/L (15-37) Alanine Aminotransferase (ALT/SGPT) 27 U/L (14-59) Alkaline Phosphatase 120 U/L (46-116) Troponin I Quantitative < 0.017 ng/mL (0.000-0.055) < 0.017 ng/mL (0.000-0.055) OF-Mjp-M-Type Natriuretic Peptide 2675 pg/mL (0-124) Total Protein 7.5 g/dL (6.4-8.2) Albumin 3.4 g/dL (3.4-5.0) Albumin/Globulin Ratio 0.8 (1.0-1.7) Lipase 138 U/L (73-393) ECHOCARDIOGRAM ECHOCARDIOGRAM <Conclusion> Left ventricle systolic function is severely impaired. The Ejection Fraction is 10-15%. There is severe global hypokinesis of the left ventricle. Doppler and Color-flow revealed severe mitral regurgitation. Doppler and Color Flow revealed mild tricuspid regurgitation. There is mild- moderate pulmonary hypertension. The PA pressure was estimated at 43 mmHg. DATE: 04/18/18 1311 STRESS TEST STRESS TEST Conclusion 1. Regadenoson cardioisotope stress test showed small inferior wall infarct without any ischemia. 2. Moderate global left ventricle systolic dysfunction with ejection fraction calculated at 32%. 3. Intermediate risk for cardiovascular events based on low ejection fraction. DATE: 01/08/15 1556 ASSESSMENT/PLAN ASSESSMENT/PLAN 1. Suspect possible aspiration with chronic dysphagia/PEG feedings 2. Atypical CP: troponin series normal. EKG SR with LBBB, no acute changes by compraison. 3. AECOPD 4. CAD: stable. 5. AICD in situ: paced rhythm 6. Chronic systolic CHF: clinically mild and more from pulmonary issues. 7. Severe MR: treated medically, not a surgical candidate. 8. 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 HTN: controlled Recommendations 1. Continue home regimen including lasix therapy, DAPT. .US neg for DVT. CTA pending. 2. Will likely need O2 supplementation PRN as an outpt. 3. Noted wt before was 104 and currently 98#. Will check optivol ranges to note any fluid overload but doubt this. Will also check any underlying arrhythmias,. JARVIS NIEVES [employer] Jun 22, 2018 14:32
[2018-06-22 15:00] VITALS: BP 117/63
--- NOTE | 2018-06-22 15:38 | PDOC ---
PULMONARY PROGRESS NOTES Vitals Vital Signs Date Time Temp Pulse Resp B/P (MAP) Pulse Ox O2 Delivery O2 Flow Rate FiO2 06/22/18 15:24 Nasal Cannula 1.5 06/22/18 11:19 98.6 75 20 110/57 (74) 97 98.6 General: Alert, No acute distress Lungs: Clear Cardiovascular: S1, S2 Abdomen: Soft Extremities: No Edema Labs Laboratory Tests Test 06/22/18 02:40 06/22/18 07:20 White Blood Count 10.4 x10^3/uL (4.0-11.0) Red Blood Count 4.67 x10^6/uL (3.50-5.40) Hemoglobin 13.9 g/dL (12.0-15.5) Hematocrit 41.6 % (36.0-47.0) Mean Corpuscular Volume 89 fL (79-100) Mean Corpuscular Hemoglobin 30 pg (25-35) Mean Corpuscular Hemoglobin Concent 34 g/dL (31-37) Red Cell Distribution Width 14.8 % (11.5-14.5) Platelet Count 189 x10^3/uL (140-400) Neutrophils (%) (Auto) 69 % (31-73) Lymphocytes (%) (Auto) 17 % (24-48) Monocytes (%) (Auto) 6 % (0-9) Eosinophils (%) (Auto) 8 % (0-3) Basophils (%) (Auto) 1 % (0-3) Neutrophils # (Auto) 7.2 x10^3uL (1.8-7.7) Lymphocytes # (Auto) 1.8 x10^3/uL (1.0-4.8) Monocytes # (Auto) 0.6 x10^3/uL (0.0-1.1) Eosinophils # (Auto) 0.8 x10^3/uL (0.0-0.7) Basophils # (Auto) 0.0 x10^3/uL (0.0-0.2) D-Dimer (Jenny) 1.13 ug/mlFEU (0.00-0.50) Sodium Level 140 mmol/L (136-145) Potassium Level 4.3 mmol/L (3.5-5.1) Chloride Level 103 mmol/L (98-107) Carbon Dioxide Level 31 mmol/L (21-32) Anion Gap 6 (6-14) Blood Urea Nitrogen 23 mg/dL (7-20) Creatinine 1.2 mg/dL (0.6-1.0) Estimated GFR (Cockcroft-Gault) 53.1 BUN/Creatinine Ratio 19 (6-20) Glucose Level 106 mg/dL (70-99) Calcium Level 10.1 mg/dL (8.5-10.1) Total Bilirubin 0.3 mg/dL (0.2-1.0) Aspartate Amino Transf (AST/SGOT) 26 U/L (15-37) Alanine Aminotransferase (ALT/SGPT) 27 U/L (14-59) Alkaline Phosphatase 120 U/L (46-116) Troponin I Quantitative < 0.017 ng/mL (0.000-0.055) < 0.017 ng/mL (0.000-0.055) HU-Guw-Y-Type Natriuretic Peptide 2675 pg/mL (0-124) Total Protein 7.5 g/dL (6.4-8.2) Albumin 3.4 g/dL (3.4-5.0) Albumin/Globulin Ratio 0.8 (1.0-1.7) Lipase 138 U/L (73-393) Laboratory Tests Test 06/22/18 02:40 06/22/18 07:20 White Blood Count 10.4 x10^3/uL (4.0-11.0) Red Blood Count 4.67 x10^6/uL (3.50-5.40) Hemoglobin 13.9 g/dL (12.0-15.5) Hematocrit 41.6 % (36.0-47.0) Mean Corpuscular Volume 89 fL (79-100) Mean Corpuscular Hemoglobin 30 pg (25-35) Mean Corpuscular Hemoglobin Concent 34 g/dL (31-37) Red Cell Distribution Width 14.8 % (11.5-14.5) Platelet Count 189 x10^3/uL (140-400) Neutrophils (%) (Auto) 69 % (31-73) Lymphocytes (%) (Auto) 17 % (24-48) Monocytes (%) (Auto) 6 % (0-9) Eosinophils (%) (Auto) 8 % (0-3) Basophils (%) (Auto) 1 % (0-3) Neutrophils # (Auto) 7.2 x10^3uL (1.8-7.7) Lymphocytes # (Auto) 1.8 x10^3/uL (1.0-4.8) Monocytes # (Auto) 0.6 x10^3/uL (0.0-1.1) Eosinophils # (Auto) 0.8 x10^3/uL (0.0-0.7) Basophils # (Auto) 0.0 x10^3/uL (0.0-0.2) D-Dimer (Jenny) 1.13 ug/mlFEU (0.00-0.50) Sodium Level 140 mmol/L (136-145) Potassium Level 4.3 mmol/L (3.5-5.1) Chloride Level 103 mmol/L (98-107) Carbon Dioxide Level 31 mmol/L (21-32) Anion Gap 6 (6-14) Blood Urea Nitrogen 23 mg/dL (7-20) Creatinine 1.2 mg/dL (0.6-1.0) Estimated GFR (Cockcroft-Gault) 53.1 BUN/Creatinine Ratio 19 (6-20) Glucose Level 106 mg/dL (70-99) Calcium Level 10.1 mg/dL (8.5-10.1) Total Bilirubin 0.3 mg/dL (0.2-1.0) Aspartate Amino Transf (AST/SGOT) 26 U/L (15-37) Alanine Aminotransferase (ALT/SGPT) 27 U/L (14-59) Alkaline Phosphatase 120 U/L (46-116) Troponin I Quantitative < 0.017 ng/mL (0.000-0.055) < 0.017 ng/mL (0.000-0.055) KJ-Vja-X-Type Natriuretic Peptide 2675 pg/mL (0-124) Total Protein 7.5 g/dL (6.4-8.2) Albumin 3.4 g/dL (3.4-5.0) Albumin/Globulin Ratio 0.8 (1.0-1.7) Lipase 138 U/L (73-393) Medications Active Scripts Medications Dose Route/Sig Max Daily Dose Days Date Category Protonix (Pantoprazole Sodium) 20 Mg Tablet.dr 40 Mg PO PRN DAILY PRN 06/22/18 Reported Furosemide 40 Mg Tablet 40 Mg PO DAILY 30 05/23/18 Rx Ultram (Tramadol Hcl) 50 Mg Tablet 50 Mg PO Q6HRS PRN 04/20/18 Reported Duoneb 0.5-3(2.5) Mg/3 Ml (Albuterol/Ipratropium) 3 Ml Ampul.neb 3 Ml NEB QID 04/17/18 Reported Zofran (Ondansetron Hcl) 4 Mg Tablet 1 Tab PO Q8HRS PRN 05/19/16 Rx Atorvastatin Calcium 40 Mg Tablet 40 Mg PO HS 09/24/15 Reported Lisinopril 20 Mg Tablet 20 Mg PO DAILY 09/24/15 Reported Carvedilol 6.25 Mg Tablet 6.25 Mg PO BIDWMEALS 09/24/15 Reported Vitamin D (Cholecalciferol (Vitamin D3)) 2,000 Unit Capsule 2,000 Unit PO BIDAFTMEAL 01/07/15 Reported Aspirin Ec (Aspirin) 325 Mg Tablet.dr 325 Mg PO DAILY 01/07/15 Reported Clopidogrel (Clopidogrel Bisulfate) 75 Mg Tablet 75 Mg PO DAILY 01/07/15 Reported Impression . FULL NOTE DICTATED ABNORMAL CXR AECOPD WILL REVIEW CT AND MAKE FURTHER RECOMMENDATION REGGIE CONTRERAS MD Jun 22, 2018 15:38
--- NOTE | 2018-06-22 15:38 | RAD ---
CT of the chest with contrast, 06/22/2018: HISTORY: Pneumonia Multidetector CT imaging was performed following an IV bolus injection of iodinated contrast material. Comparison is made to an exam from 07/05/2016. Transvenous pacing leads extend into the right heart. There is moderate calcific plaquing of the thoracic aorta and its branches without evidence of aneurysm. Scattered coronary artery calcifications are present. The heart is moderately enlarged. The esophagus appears to be somewhat thick walled at the midthoracic level. Debris in the lumen may be contributing to this appearance. There are large calcified right paratracheal and right hilar lymph nodes due to old granulomatous disease. There are calcified granulomata in the right lung. There are mixed reticular and airspace opacities in the right upper lobe which appear to have worsened slightly since the previous study. There is mild atelectasis in the posterior costophrenic angle on the right. There is new mild streaky atelectasis/infiltrate posteriorly in the left base. No significant pleural fluid is evident. IMPRESSION: 1. Cardiomegaly with moderate calcific plaquing of the aorta and coronary arteries. 2. Chronic right upper lobe infiltrate has worsened slightly since 07/05/2016, suggesting a combination of scarring and chronic pneumonitis. 3. Enlarged, calcified right hilar and mediastinal lymph nodes due to old granulomatous disease. 4. New mild left basilar atelectasis and/or pneumonitis. 5. Apparent mural thickening in the mid esophagus may be inflammatory. A neoplastic etiology cannot be excluded. PQRS Compliance Statement: One or more of the following individualized dose reduction techniques were utilized for this examination: 1. Automated exposure control 2. Adjustment of the mA and/or kV according to patient size 3. Use of iterative reconstruction technique Electronically signed by: Steven Latif MD (06/22/2018 3:35 PM) [facility]
[2018-06-22] MEDS: predniSONE 10 MG TABLET PO SCH (18:21)
[2018-06-22 19:00] VITALS: BP 109/56
[2018-06-22] MEDS: ATORVASTATIN CALCIUM 40 MG TABLET. PO SCH (20:42)
--- NOTE | 2018-06-22 20:48 | CONS ---
DATE OF CONSULTATION: 06/22/2018 ATTENDING PHYSICIAN: Dr. Seya. REASON FOR CONSULTATION: The patient seen in pulmonary consultation at the request of Dr. Seay for shortness of air, abnormal x-ray. HISTORY OF PRESENT ILLNESS: The patient is a 73-year-old female with a history of cardiomyopathy, ejection fraction previously estimated at 15%, status post dual chamber ICD. She presented with increasing shortness of breath, was found to have saturations in the Emergency Room of 84% on room air. She has a cough productive of thick white sputum. No fever or chills. Chest x-ray was reviewed. There is reticular nodular infiltrates, possible fibrosis. She normally does not wear oxygen at home. She quit tobacco many years ago. Denies any lower extremity edema. PAST MEDICAL HISTORY: Coronary artery disease, cardiomyopathy, ejection fraction 15%, hypertension, previous myocardial infarction. PAST SURGICAL HISTORY: Previous defibrillator, cardiac stenting, appendectomy, hysterectomy, pacemaker implantation. She had previous PEG tube placement. ALLERGIES: PENICILLIN, SULFA. REVIEW OF SYSTEMS: CONSTITUTIONAL: No fever or chills. EYES: No change in visual acuity. HEENT: No nasal congestion or sore throat. PULMONARY: As indicated above. CARDIOVASCULAR: No chest pain or pressure. GASTROINTESTINAL: No nausea, vomiting, or diarrhea. GENITOURINARY: No dysuria or frequency. MUSCULOSKELETAL: No localized muscle aches or joint pains. SKIN: No new skin rashes. NEUROLOGIC: No headaches, diplopia. FAMILY HISTORY: Noncontributory. SOCIAL HISTORY: She quit tobacco 1-1/2 years ago. CURRENT MEDICATIONS: List was reviewed. PHYSICAL EXAMINATION: VITAL SIGNS: The patient was in no respiratory distress, currently on 2 L of oxygen supplementation, saturation above 92%. HEENT: Eyes, the sclerae were nonicteric. NECK: Jugular venous distention was not elevated. No lymphadenopathy. CHEST: Full expansion. LUNGS: Poor airway flow with some scattered rhonchi. CARDIOVASCULAR: Regular rate and rhythm with S1, S2, no S3. ABDOMEN: Soft, nontender, nondistended. EXTREMITIES: No clubbing, cyanosis and no pitting edema. NEUROLOGIC: The patient was awake, alert, following commands. A detailed neuro exam was not performed. LABORATORY DATA: Reviewed. D-dimer was elevated. White count was normal. Electrolytes were noted. BUN was elevated. Creatinine was elevated. Albumin was 3.4. BMP was elevated. Chest x-ray as indicated above. IMPRESSION: 1. Acute exacerbation of chronic obstructive pulmonary disease. 2. Acute hypoxemic respiratory failure secondary to ischemic cardiomyopathy, acute exacerbation of chronic obstructive pulmonary disease, possibly pulmonary fibrosis. 3. Chest heaviness. 4. Negative venous Dopplers of the lower extremities. 5. Low body mass index. PLAN: 1. Recommend continue current medical regimen. 2. CT chest. 3. DVT and GI prophylaxis. 4. Increase caloric intake. I do appreciate the privilege in sharing this patient's care. REGGIE CONTRERAS MD DR: CAROLA/murali JOB#: [id number] / [id number]
[2018-06-22 22:33] VITALS: BP 117/60
[2018-06-23 02:37] VITALS: BP 107/69
[2018-06-23 07:00] VITALS: BP 131/80
[2018-06-23] MEDS: IPRATRPIUM/ALBUTEROL 0.5/2.5MG 3 ML NEBU. NEB SCH ×2 (07:18→15:40)
[2018-06-23] MEDS: traMADol 50 MG TABLET PO PRN (08:33)
[2018-06-23] MEDS: CARVEDILOL 6.25 MG TABLET. PO SCH ×2 (08:34→17:14)
[2018-06-23] MEDS: ASPIRIN ENTERIC COATED 325 MG TABLET.DR. PO SCH (08:34)
[2018-06-23] MEDS: guaiFENesin DM 200MG/20MG 10 ML SYRUP PO PRN ×2 (08:34→17:14)
[2018-06-23] MEDS: FUROSEMIDE 40 MG TABLET. PO SCH (08:34)
[2018-06-23] MEDS: CLOPIDOGREL BISULFATE 75 MG TABLET PO SCH (08:34)
[2018-06-23] MEDS: LISINOPRIL 20 MG TABLET PO SCH (08:34)
[2018-06-23] MEDS: predniSONE 10 MG TABLET PO SCH (08:34)
[2018-06-23] MEDS: CHOLECALCIFEROL (VITAMIN D3) 1,000 UNIT TABLET PO SCH ×2 (08:34→17:14)
[2018-06-23] MEDS: PANTOPRAZOLE 40 MG TABLET.DR. PO SCH (08:34)
[2018-06-23] MEDS: BENZONATATE 100 MG CAPSULE. PO SCH ×3 (08:34→21:22)
--- NOTE | 2018-06-23 08:42 | PDOC ---
PULMONARY PROGRESS NOTES Vitals Vital Signs Date Time Temp Pulse Resp B/P (MAP) Pulse Ox O2 Delivery O2 Flow Rate FiO2 06/23/18 08:34 75 131/80 06/23/18 08:33 Nasal Cannula 1.5 06/23/18 07:18 96 06/23/18 07:00 97.7 20 97.7 General: Alert, No acute distress Lungs: Clear Cardiovascular: S1, S2 Abdomen: Soft Extremities: No Edema Labs Laboratory Tests Test 06/22/18 02:40 06/22/18 07:20 White Blood Count 10.4 x10^3/uL (4.0-11.0) Red Blood Count 4.67 x10^6/uL (3.50-5.40) Hemoglobin 13.9 g/dL (12.0-15.5) Hematocrit 41.6 % (36.0-47.0) Mean Corpuscular Volume 89 fL (79-100) Mean Corpuscular Hemoglobin 30 pg (25-35) Mean Corpuscular Hemoglobin Concent 34 g/dL (31-37) Red Cell Distribution Width 14.8 % (11.5-14.5) Platelet Count 189 x10^3/uL (140-400) Neutrophils (%) (Auto) 69 % (31-73) Lymphocytes (%) (Auto) 17 % (24-48) Monocytes (%) (Auto) 6 % (0-9) Eosinophils (%) (Auto) 8 % (0-3) Basophils (%) (Auto) 1 % (0-3) Neutrophils # (Auto) 7.2 x10^3uL (1.8-7.7) Lymphocytes # (Auto) 1.8 x10^3/uL (1.0-4.8) Monocytes # (Auto) 0.6 x10^3/uL (0.0-1.1) Eosinophils # (Auto) 0.8 x10^3/uL (0.0-0.7) Basophils # (Auto) 0.0 x10^3/uL (0.0-0.2) D-Dimer (Jenny) 1.13 ug/mlFEU (0.00-0.50) Sodium Level 140 mmol/L (136-145) Potassium Level 4.3 mmol/L (3.5-5.1) Chloride Level 103 mmol/L (98-107) Carbon Dioxide Level 31 mmol/L (21-32) Anion Gap 6 (6-14) Blood Urea Nitrogen 23 mg/dL (7-20) Creatinine 1.2 mg/dL (0.6-1.0) Estimated GFR (Cockcroft-Gault) 53.1 BUN/Creatinine Ratio 19 (6-20) Glucose Level 106 mg/dL (70-99) Calcium Level 10.1 mg/dL (8.5-10.1) Total Bilirubin 0.3 mg/dL (0.2-1.0) Aspartate Amino Transf (AST/SGOT) 26 U/L (15-37) Alanine Aminotransferase (ALT/SGPT) 27 U/L (14-59) Alkaline Phosphatase 120 U/L (46-116) Troponin I Quantitative < 0.017 ng/mL (0.000-0.055) < 0.017 ng/mL (0.000-0.055) XI-Ryi-I-Type Natriuretic Peptide 2675 pg/mL (0-124) Total Protein 7.5 g/dL (6.4-8.2) Albumin 3.4 g/dL (3.4-5.0) Albumin/Globulin Ratio 0.8 (1.0-1.7) Lipase 138 U/L (73-393) Medications Active Scripts Medications Dose Route/Sig Max Daily Dose Days Date Category Protonix (Pantoprazole Sodium) 20 Mg Tablet.dr 40 Mg PO PRN DAILY PRN 06/22/18 Reported Furosemide 40 Mg Tablet 40 Mg PO DAILY 30 05/23/18 Rx Ultram (Tramadol Hcl) 50 Mg Tablet 50 Mg PO Q6HRS PRN 04/20/18 Reported Duoneb 0.5-3(2.5) Mg/3 Ml (Albuterol/Ipratropium) 3 Ml Ampul.neb 3 Ml NEB QID 04/17/18 Reported Zofran (Ondansetron Hcl) 4 Mg Tablet 1 Tab PO Q8HRS PRN 05/19/16 Rx Atorvastatin Calcium 40 Mg Tablet 40 Mg PO HS 09/24/15 Reported Lisinopril 20 Mg Tablet 20 Mg PO DAILY 09/24/15 Reported Carvedilol 6.25 Mg Tablet 6.25 Mg PO BIDWMEALS 09/24/15 Reported Vitamin D (Cholecalciferol (Vitamin D3)) 2,000 Unit Capsule 2,000 Unit PO BIDAFTMEAL 01/07/15 Reported Aspirin Ec (Aspirin) 325 Mg Tablet.dr 325 Mg PO DAILY 01/07/15 Reported Clopidogrel (Clopidogrel Bisulfate) 75 Mg Tablet 75 Mg PO DAILY 01/07/15 Reported Impression . IMPRESSION: 1. Acute exacerbation of chronic obstructive pulmonary disease. 2. Acute hypoxemic respiratory failure secondary to ischemic cardiomyopathy, acute exacerbation of chronic obstructive pulmonary disease, possibly pulmonary fibrosis. 3. Chest heaviness. 4. Negative venous Dopplers of the lower extremities. 5. Low body mass index. IMPRESSION: 1. Cardiomegaly with moderate calcific plaquing of the aorta and coronary arteries. 2. Chronic right upper lobe infiltrate has worsened slightly since 07/05/2016, suggesting a combination of scarring and chronic pneumonitis. 3. Enlarged, calcified right hilar and mediastinal lymph nodes due to old granulomatous disease. 4. New mild left basilar atelectasis and/or pneumonitis. 5. Apparent mural thickening in the mid esophagus may be inflammatory. A neoplastic etiology cannot be excluded. Plan . 1. Recommend continue current medical regimen. 2. CT chest. 3. DVT and GI prophylaxis. 4. Increase caloric intake. REGGIE CONTRERAS MD Jun 23, 2018 08:42
[2018-06-23 09:45] LABS: CALCIUM 10.1 mg/dL (8.5-10.1); CREATININE 0.9 mg/dL (0.6-1.0); GFR 74.1; MAGNESIUM 2.1 mg/dL (1.8-2.4); POTASSIUM 4.3 mmol/L (3.5-5.1)
--- NOTE | 2018-06-23 10:31 | PDOC ---
PROGRESS NOTES Chief Complaint Chief Complaint Chest heaviness Indwelling pacer History of A. fib? On Plavix? Undernourished-BMI 15.3 Hypoxic respiratory failure POA, 84% sats at ER Elevated d-dimer, no DVT on US Inflammatory changes on chest x-ray History of COPD by documentation-only on albuterol when necessary at home History of Present Illness History of Present Illness nauseated and vomited today Does not want home health-has had passed experiences with that and she claims didn't really help much She does her own tube feeds, 2 cans per session, 10 cans in a day She lives at home with good functionality on good days No PT needs per PT assessment yesterday 06/22/18 Undernourished Has tried Marinol and Megace in the past with no help Plan: Hold discharge Supportive meds Continue tube feeds CT scan results provided and discussed with her, no acute findings dc tmr - she knows Vitals Vitals Vital Signs Date Time Temp Pulse Resp B/P (MAP) Pulse Ox O2 Delivery O2 Flow Rate FiO2 06/23/18 08:34 75 131/80 06/23/18 08:33 Nasal Cannula 1.5 06/23/18 07:18 96 06/23/18 07:00 97.7 20 97.7 Physical Exam General: Alert, Oriented X3, Cooperative, No acute distress Heart: Regular rate Lungs: Clear Abdomen: Soft, No tenderness Extremities: No cyanosis, No edema Skin: No breakdown, No significant lesion Labs LABS Laboratory Tests Test 06/23/18 09:00 Sodium Level 138 mmol/L (136-145) Potassium Level 4.3 mmol/L (3.5-5.1) Chloride Level 99 mmol/L (98-107) Carbon Dioxide Level 33 mmol/L (21-32) Anion Gap 6 (6-14) Blood Urea Nitrogen 23 mg/dL (7-20) Creatinine 0.9 mg/dL (0.6-1.0) Estimated GFR (Cockcroft-Gault) 74.1 Glucose Level 149 mg/dL (70-99) Calcium Level 10.1 mg/dL (8.5-10.1) Magnesium Level 2.1 mg/dL (1.8-2.4) Review of Systems Review of Systems Nauseated, vomited, weak, poor by mouth, the rest of ROS 14 point negative Assessment and Plan Assessmemt and Plan Problems Medical Problems: (1) Acute bronchospasm Status: Acute (2) Acute CHF Status: Acute (3) Hypoxemia Status: Acute Comment Review of Relevant I have reviewed the following items loren (where applicable) has been applied. Labs Laboratory Tests Test 06/22/18 02:40 06/22/18 07:20 06/23/18 09:00 White Blood Count 10.4 x10^3/uL (4.0-11.0) Red Blood Count 4.67 x10^6/uL (3.50-5.40) Hemoglobin 13.9 g/dL (12.0-15.5) Hematocrit 41.6 % (36.0-47.0) Mean Corpuscular Volume 89 fL (79-100) Mean Corpuscular Hemoglobin 30 pg (25-35) Mean Corpuscular Hemoglobin Concent 34 g/dL (31-37) Red Cell Distribution Width 14.8 % (11.5-14.5) Platelet Count 189 x10^3/uL (140-400) Neutrophils (%) (Auto) 69 % (31-73) Lymphocytes (%) (Auto) 17 % (24-48) Monocytes (%) (Auto) 6 % (0-9) Eosinophils (%) (Auto) 8 % (0-3) Basophils (%) (Auto) 1 % (0-3) Neutrophils # (Auto) 7.2 x10^3uL (1.8-7.7) Lymphocytes # (Auto) 1.8 x10^3/uL (1.0-4.8) Monocytes # (Auto) 0.6 x10^3/uL (0.0-1.1) Eosinophils # (Auto) 0.8 x10^3/uL (0.0-0.7) Basophils # (Auto) 0.0 x10^3/uL (0.0-0.2) D-Dimer (Jenny) 1.13 ug/mlFEU (0.00-0.50) Sodium Level 140 mmol/L (136-145) 138 mmol/L (136-145) Potassium Level 4.3 mmol/L (3.5-5.1) 4.3 mmol/L (3.5-5.1) Chloride Level 103 mmol/L (98-107) 99 mmol/L (98-107) Carbon Dioxide Level 31 mmol/L (21-32) 33 mmol/L (21-32) Anion Gap 6 (6-14) 6 (6-14) Blood Urea Nitrogen 23 mg/dL (7-20) 23 mg/dL (7-20) Creatinine 1.2 mg/dL (0.6-1.0) 0.9 mg/dL (0.6-1.0) Estimated GFR (Cockcroft-Gault) 53.1 74.1 BUN/Creatinine Ratio 19 (6-20) Glucose Level 106 mg/dL (70-99) 149 mg/dL (70-99) Calcium Level 10.1 mg/dL (8.5-10.1) 10.1 mg/dL (8.5-10.1) Total Bilirubin 0.3 mg/dL (0.2-1.0) Aspartate Amino Transf (AST/SGOT) 26 U/L (15-37) Alanine Aminotransferase (ALT/SGPT) 27 U/L (14-59) Alkaline Phosphatase 120 U/L (46-116) Troponin I Quantitative < 0.017 ng/mL (0.000-0.055) < 0.017 ng/mL (0.000-0.055) FS-Zeu-B-Type Natriuretic Peptide 2675 pg/mL (0-124) Total Protein 7.5 g/dL (6.4-8.2) Albumin 3.4 g/dL (3.4-5.0) Albumin/Globulin Ratio 0.8 (1.0-1.7) Lipase 138 U/L (73-393) Magnesium Level 2.1 mg/dL (1.8-2.4) Laboratory Tests Test 06/23/18 09:00 Sodium Level 138 mmol/L (136-145) Potassium Level 4.3 mmol/L (3.5-5.1) Chloride Level 99 mmol/L (98-107) Carbon Dioxide Level 33 mmol/L (21-32) Anion Gap 6 (6-14) Blood Urea Nitrogen 23 mg/dL (7-20) Creatinine 0.9 mg/dL (0.6-1.0) Estimated GFR (Cockcroft-Gault) 74.1 Glucose Level 149 mg/dL (70-99) Calcium Level 10.1 mg/dL (8.5-10.1) Magnesium Level 2.1 mg/dL (1.8-2.4) Medications Current Medications Albuterol/ Ipratropium (Duoneb) 3 ml STK-MED ONCE .ROUTE ; Start 06/22/18 at 02: 37; Stop 06/22/18 at 02:38; Status DC Methylprednisolone Sodium Succinate (SOLU-Medrol 125MG VIAL) 125 mg 1X ONCE IV Last administered on 06/22/18at 03:45; Start 06/22/18 at 02:45; Stop 06/22/18 at 02:46; Status DC Albuterol/ Ipratropium (Duoneb) 3 ml 1X ONCE NEB Last administered on at 02:45; Start 06/22/18 at 02:45; Stop 06/22/18 at 02:46; Status DC Ondansetron HCl (Zofran) 4 mg 1X ONCE IV Last administered on 06/22/18at 03:45 ; Start 06/22/18 at 02:45; Stop 06/22/18 at 02:46; Status DC Ondansetron HCl (Zofran) 4 mg PRN Q8HRS PRN IV NAUSEA/VOMITING; Start 06/22/18 at 04:30; Stop 06/22/18 at 09:02; Status DC Nitroglycerin (Nitrostat) 0.4 mg PRN Q5MIN PRN SL CHEST PAIN; Start 06/22/18 at 04:30; Stop 06/23/18 at 04:29; Status DC Albuterol/ Ipratropium (Duoneb) 3 ml RTQID NEB Last administered on 06/23/18at 07:18; Start 06/22/18 at 08:00; Stop 06/23/18 at 07:59; Status DC Ondansetron HCl (Zofran) 4 mg PRN Q6HRS PRN IV NAUSEA/VOMITING; Start 06/22/18 at 09:15 Benzonatate (Tessalon Perle) 100 mg [id number] PO Last administered on 06/23/18at 08 :34; Start 06/22/18 at 10:00 Acetaminophen (Tylenol) 500 mg PRN Q6HRS PRN PO MILD PAIN / TEMP; Start at 09:00 Acetaminophen/ Codeine Phosphate (Tylenol #3) 1 tab PRN Q6HRS PRN PO MODERATE PAIN; Start 06/22/18 at 09:00 Guaifenesin (Robitussin Dm) 10 ml PRN Q6HRS PRN PO COUGH Last administered on 08:34; Start 06/22/18 at 09:00 Aspirin (Ecotrin) 325 mg DAILY PO Last administered on 06/23/18 08:34; Start 06/22/18 at 10:00 Atorvastatin Calcium (Lipitor) 40 mg HS PO Last administered on 06/22/18 20:42 ; Start 06/22/18 at 21:00 Carvedilol (Coreg) 6.25 mg BIDWMEALS PO Last administered on 06/23/18 08:34; Start 06/22/18 at 10:00 Clopidogrel Bisulfate (Plavix) 75 mg DAILY PO Last administered on 06/23/18 08 :34; Start 06/22/18 at 10:00 Furosemide (Lasix) 40 mg DAILY PO Last administered on 06/23/18 08:34; Start 06/22/18 at 10:00 Lisinopril (Prinivil) 20 mg DAILY PO Last administered on 06/23/18 08:34; Start 06/22/18 at 10:00 Tramadol HCl (Ultram) 50 mg Q6HRS PRN PO MILD TO MODERATE PAIN Last administered on 06/23/18 08:33; Start 06/22/18 at 09:15 Vitamin D (Vitamin D3) 1,000 unit BIDAFTMEAL PO Last administered on 06/23/18 08:34; Start 06/22/18 at 10:00 Ondansetron HCl (Zofran Odt) 8 mg PRN Q8HRS PRN PO NAUSEA/VOMITING Last administered on 06/23/18 08:47; Start 06/22/18 at 10:00 Pantoprazole Sodium (Protonix) 40 mg DAILYAC PO Last administered on 06/23/18 08:34; Start 06/22/18 at 11:30 Iohexol (Omnipaque 300 Mg/ml) 60 ml 1X ONCE IV Last administered on 06/22/18 13:30; Start 06/22/18 at 13:30; Stop 06/22/18 at 13:32; Status DC Info (CONTRAST GIVEN -- Rx MONITORING) 1 each PRN DAILY PRN MC SEE COMMENTS; Start 06/22/18 at 13:45; Stop 06/24/18 at 13:44 Prednisone (Prednisone) 30 mg DAILY PO Last administered on 06/23/18at 08:34; Start 06/22/18 at 15:45 Active Scripts Active Furosemide 40 Mg Tablet 40 Mg PO DAILY 30 Days Zofran (Ondansetron Hcl) 4 Mg Tablet 1 Tab PO Q8HRS PRN Reported Protonix (Pantoprazole Sodium) 20 Mg Tablet.dr 40 Mg PO PRN DAILY PRN Ultram (Tramadol Hcl) 50 Mg Tablet 50 Mg PO Q6HRS PRN Duoneb 0.5-3(2.5) Mg/3 Ml (Albuterol/Ipratropium) 3 Ml Ampul.neb 3 Ml NEB QID Atorvastatin Calcium 40 Mg Tablet 40 Mg PO HS Lisinopril 20 Mg Tablet 20 Mg PO DAILY Carvedilol 6.25 Mg Tablet 6.25 Mg PO BIDWMEALS Vitamin D (Cholecalciferol (Vitamin D3)) 2,000 Unit Capsule 2,000 Unit PO BIDAFTMEAL Aspirin Ec (Aspirin) 325 Mg Tablet.dr 325 Mg PO DAILY Clopidogrel (Clopidogrel Bisulfate) 75 Mg Tablet 75 Mg PO DAILY Vitals/I & O Vital Sign - Last 24 Hours 06/22/18 06/22/18 06/22/18 06/22/18 10:30 10:30 10:31 11:07 Pulse 75 75 B/P (MAP) 110/57 110/57 O2 Delivery Nasal Cannula Nasal Cannula O2 Flow Rate 2.0 2.0 06/22/18 06/22/18 06/22/18 06/22/18 11:15 11:19 11:30 15:00 Temp 98.6 97.4 98.6 97.4 Pulse 75 74 Resp 20 20 B/P (MAP) 110/57 (74) 117/63 (81) Pulse Ox 97 99 O2 Delivery Nasal Cannula Nasal Cannula Nasal Cannula Room Air O2 Flow Rate 1.5 1.5 2.0 06/22/18 06/22/18 06/22/18 06/22/18 15:24 17:00 19:00 19:29 Temp 98.1 98.1 Pulse 77 86 Resp 18 B/P (MAP) 104/55 109/56 (73) Pulse Ox 96 O2 Delivery Nasal Cannula Nasal Cannula Nasal Cannula O2 Flow Rate 1.5 2.0 1.5 06/22/18 06/22/18 06/23/18 06/23/18 20:00 22:33 02:37 07:00 Temp 98.9 98.7 97.7 98.9 98.7 97.7 Pulse 72 81 75 Resp 15 18 20 B/P (MAP) 117/60 (79) 107/69 (82) 131/80 (97) Pulse Ox 92 98 95 O2 Delivery Nasal Cannula Nasal Cannula Nasal Cannula Nasal Cannula O2 Flow Rate 1.5 2.0 2.0 2.0 06/23/18 06/23/18 06/23/18 06/23/18 07:18 07:45 08:33 08:34 Pulse 75 B/P (MAP) 131/80 Pulse Ox 96 O2 Delivery Nasal Cannula Nasal Cannula Nasal Cannula O2 Flow Rate 1.5 1.5 1.5 06/23/18 08:34 Pulse 75 B/P (MAP) 131/80 Intake and Output 06/22/18 06/22/18 06/23/18 15:00 23:00 07:00 Intake Total 120 ml 2652 ml 50 ml Output Total 30 ml 550 ml Balance 120 ml 2622 ml -500 ml Nutrition Consultation Dietary Evaluation: Comments: REC Jevity 1.5 bolus 4 x day with 175 ml flushes with each bolus continue diet as tolerated Expected Outcomes/Goals: to meet > 75% est nutr needs via TF/ po intake Malnutrition Findings: Body Fat Depletion (Non Severe: Mod to Severe Weight Status: Underweight MIRANDA MORENO MD Jun 23, 2018 10:31
[2018-06-23 10:49] VITALS: BP 128/55
[2018-06-23] MEDS ORDERED: DOXY100C2 PO (11:26)
[2018-06-23] MEDS: DOXYCYCLINE HYCLATE 100 MG TABLET PO SCH ×2 (12:15→21:22)
--- NOTE | 2018-06-23 13:14 | PDOC ---
CARDIO Progress Notes Date and Time Date of Service 06/23/2018 Time of Evaluation 1230 Subjective Subjective: No Chest Pain, No shortness of breath, No Palpitations, Other ( feels better todya, eats solid food but gets stuck and vomits it out. ) Vitals Vitals Vital Signs Date Time Temp Pulse Resp B/P (MAP) Pulse Ox O2 Delivery O2 Flow Rate FiO2 06/23/18 11:48 96 Room Air 06/23/18 10:49 97.8 76 20 128/55 (79) 97.8 06/23/18 10:00 1.5 Weight Weight [ ] Input and Output Intake and Output Intake and Output 06/23/18 07:00 Intake Total 2822 ml Output Total 580 ml Balance 2242 ml Intake Oral 170 ml Tube Feeding 2652 ml Output Urine Total 550 ml Gastric Drainage Total 30 ml Laboratory Labs Laboratory Tests Test 06/23/18 09:00 Sodium Level 138 mmol/L (136-145) Potassium Level 4.3 mmol/L (3.5-5.1) Chloride Level 99 mmol/L (98-107) Carbon Dioxide Level 33 mmol/L (21-32) Anion Gap 6 (6-14) Blood Urea Nitrogen 23 mg/dL (7-20) Creatinine 0.9 mg/dL (0.6-1.0) Estimated GFR (Cockcroft-Gault) 74.1 Glucose Level 149 mg/dL (70-99) Calcium Level 10.1 mg/dL (8.5-10.1) Magnesium Level 2.1 mg/dL (1.8-2.4) Physical Exam HEENT: Neck Supple W Full Motion Chest: Symmetric LUNGS: Other (basilar crackles) Heart: S1S2, RRR (SR) Abdomen: Soft N/T Extremities: No Edema, No Calf Tenderness Neurology: alert, oriented, follow commands Assessment Assessment 1. Suspect possible aspiration with chronic dysphagia/PEG feedings: Pulmonary following 2. Atypical CP: troponin series normal. EKG SR with LBBB, no acute changes by comparison. 3. AECOPD 4. CAD: stable. 5. AICD in situ: Medtronic. AAI=DDD, no arrhythmias, optivol within baseline.Normal functioning device. 6. Chronic systolic CHF: compensated 7. Severe MR: treated medically, not a surgical candidate. 8. 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 Remains compensated 9. HTN: controlled Recommendations 1. Continue current cardiac regimen 2. Will likely need O2 supplementation PRN as an outpt. 3. Nothing further cardiac shen. Follow up in office in 4 weeks. JARVIS NIEVES APRN Jun 23, 2018 13:13
[2018-06-23 15:00] VITALS: BP 129/71
[2018-06-23 19:00] VITALS: BP 123/57
[2018-06-23] MEDS: ATORVASTATIN CALCIUM 40 MG TABLET. PO SCH (21:22)
[2018-06-23 23:00] VITALS: BP 119/56
[2018-06-24] VITALS (10 sets, daily range): BP systolic 95–154; BP diastolic 45–83
[2018-06-24 05:46] LABS: BASE EXCESS COOX 5 mmol/L (-3-3); HCO3 COOX 30 mmol/L (21-28); METHEMOGLOBIN 0.3 % (0.0-1.9); OXYHEMOGLOBIN 94.8 %; PCO2 COOX 42 mmHg (35-46); PO2 COOX 77 mmHg (65-108); SAT O2 COOX 95 % (92-99)
[2018-06-24] MEDS: methylPREDNISolone SOD SUCC PF 125 MG/2 ML VIAL. IV SCH (05:50)
[2018-06-24] MEDS ORDERED: FUROSEMIDE 40 MG/4 ML VIAL. IVP ONE (06:00)
[2018-06-24] MEDS ORDERED: IPRATRPIUM/ALBUTEROL 0.5/2.5MG 3 ML NEBU. NEB ONE (06:00)
[2018-06-24] MEDS ORDERED: LORazepam 0.5 MG TABLET PO ONE (06:15)
--- NOTE | 2018-06-24 07:43 | RAD ---
Portable chest, 06/24/2018: HISTORY: Shortness of breath Comparison is made to a study from 06/22/2018. The left-sided transvenous pacing device is unchanged. The heart is mildly enlarged. The pulmonary vascularity is within normal limits. Mild right upper lobe parenchymal opacities are unchanged. Much of this is probably due to scarring. No new pulmonary abnormality is seen. No pleural fluid is evident. IMPRESSION: No significant change since 06/22/2018. Electronically signed by: Steven Latif MD (06/24/2018 7:40 AM) [facility]
[2018-06-24] MEDS: PANTOPRAZOLE 40 MG TABLET.DR. PO SCH (08:18)
[2018-06-24] MEDS: DOXYCYCLINE HYCLATE 100 MG TABLET PO SCH ×2 (08:18→20:53)
[2018-06-24] MEDS: BENZONATATE 100 MG CAPSULE. PO SCH ×3 (08:18→20:52)
[2018-06-24] MEDS: CHOLECALCIFEROL (VITAMIN D3) 1,000 UNIT TABLET PO SCH ×2 (08:19→17:36)
[2018-06-24] MEDS: CARVEDILOL 6.25 MG TABLET. PO SCH ×2 (08:19→17:36)
[2018-06-24] MEDS: ASPIRIN ENTERIC COATED 325 MG TABLET.DR. PO SCH (08:19)
[2018-06-24] MEDS: FUROSEMIDE 40 MG TABLET. PO SCH (08:19)
[2018-06-24] MEDS: LISINOPRIL 20 MG TABLET PO SCH (08:19)
[2018-06-24] MEDS: CLOPIDOGREL BISULFATE 75 MG TABLET PO SCH (08:19)
--- NOTE | 2018-06-24 09:16 | PDOC ---
CARDIO Progress Notes Date and Time Date of Service 06/24/2018 Time of Evaluation 0850 Subjective Subjective: No Chest Pain, No shortness of breath, No Palpitations Vitals Vitals Vital Signs Date Time Temp Pulse Resp B/P (MAP) Pulse Ox O2 Delivery O2 Flow Rate FiO2 06/24/18 08:19 64 140/80 06/24/18 07:07 Nasal Cannula 2.0 06/24/18 06:45 14 98 06/24/18 06:30 99.0 99.0 Weight Weight [ ] Input and Output Intake and Output Intake and Output 06/24/18 07:00 Intake Total 6410 ml Output Total 30 ml Balance 6380 ml Intake Oral 1300 ml Tube Feeding 5110 ml Output Urine Total 0 ml Gastric Drainage Total 30 ml # Voids 2 Laboratory Labs Laboratory Tests Test 06/24/18 05:31 O2 Saturation 95 % (92-99) Arterial Blood pH 7.46 (7.35-7.45) Arterial Blood pCO2 at Patient Temp 42 mmHg (35-46) Arterial Blood pO2 at Patient Temp 77 mmHg (65-108) Arterial Blood HCO3 30 mmol/L (21-28) Arterial Blood Base Excess 5 mmol/L (-3-3) Oxyhemoglobin 94.8 % Methemoglobin 0.3 % (0.0-1.9) Carbon Monoxide, Quantitative 0.2 % (0.0-1.9) FiO2 36 Physical Exam HEENT: Neck Supple W Full Motion Chest: Symmetric LUNGS: Other (diminished bases) Heart: S1S2, RRR (SR), murmurs (3/6 systolic murmur to LLS border) Abdomen: Soft N/T Extremities: No Edema, No Calf Tenderness Neurology: alert, oriented, follow commands Assessment Assessment 1. Suspect possible aspiration with chronic dysphagia/PEG feedings: Pulmonary following 2. Atypical CP: troponin series normal. EKG SR with LBBB, no acute changes by comparison. 3. AECOPD 4. CAD: stable. 5. AICD in situ: [employer]ment[employer]tronic. AAI=DDD, no arrhythmias, optivol within baseline.Normal functioning device. 6. Chronic systolic CHF: compensated 7. Severe MR: treated medically, not a surgical candidate. 8. 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 Compensated 9. HTN: controlled 10. Anxiety/panic? Pt transferred to ICU with rapid response this AM notified due to SOA. Potential reactive airway issue. Pt remains to be eating solids and liquids by mouth and intermittently vomits it out if feels that it gets stuck and she did this multiple times yesterday. Received x1 lasix IV and solumedrol. CXR are unchanged with no pulmonary vascular congestion or effusion. O2 sat at 98% at 2LPM. No CP, palpitations, no rhythm ectopies. Recommendations 1. Seh follow every 6 months with [facility]. GI reeval? Defer to PCP 2. Will likely need O2 supplementation PRN as an outpt. Continue with present cardiac regimen. 3. Follow up in office in 4 weeks. 4. May transfer to [facility] 5. SANIYA, Mg, CBC JARVIS NIEVES AUDIO VISUAL TECH Jun 24, 2018 09:16
--- NOTE | 2018-06-24 09:25 | PDOC ---
PULMONARY PROGRESS NOTES Subjective PT THIS AM MORE SOA STATES SAME THING HAPPENS TO HER AT HOME Vitals Vital Signs Date Time Temp Pulse Resp B/P (MAP) Pulse Ox O2 Delivery O2 Flow Rate FiO2 06/24/18 09:00 62 15 149/81 (103) 99 Nasal Cannula 2.0 06/24/18 08:00 98.4 98.4 ROS: No Nausea, No Chest Pain, No Abdominal Pain, No Increase Cough General: Alert, No acute distress Lungs: Crackles Cardiovascular: S1, S2 Abdomen: Soft Extremities: No Edema Labs Laboratory Tests Test 06/23/18 09:00 06/24/18 05:31 Sodium Level 138 mmol/L (136-145) Potassium Level 4.3 mmol/L (3.5-5.1) Chloride Level 99 mmol/L (98-107) Carbon Dioxide Level 33 mmol/L (21-32) Anion Gap 6 (6-14) Blood Urea Nitrogen 23 mg/dL (7-20) Creatinine 0.9 mg/dL (0.6-1.0) Estimated GFR (Cockcroft-Gault) 74.1 Glucose Level 149 mg/dL (70-99) Calcium Level 10.1 mg/dL (8.5-10.1) Magnesium Level 2.1 mg/dL (1.8-2.4) O2 Saturation 95 % (92-99) Arterial Blood pH 7.46 (7.35-7.45) Arterial Blood pCO2 at Patient Temp 42 mmHg (35-46) Arterial Blood pO2 at Patient Temp 77 mmHg (65-108) Arterial Blood HCO3 30 mmol/L (21-28) Arterial Blood Base Excess 5 mmol/L (-3-3) Oxyhemoglobin 94.8 % Methemoglobin 0.3 % (0.0-1.9) Carbon Monoxide, Quantitative 0.2 % (0.0-1.9) FiO2 36 Laboratory Tests Test 06/24/18 05:31 O2 Saturation 95 % (92-99) Arterial Blood pH 7.46 (7.35-7.45) Arterial Blood pCO2 at Patient Temp 42 mmHg (35-46) Arterial Blood pO2 at Patient Temp 77 mmHg (65-108) Arterial Blood HCO3 30 mmol/L (21-28) Arterial Blood Base Excess 5 mmol/L (-3-3) Oxyhemoglobin 94.8 % Methemoglobin 0.3 % (0.0-1.9) Carbon Monoxide, Quantitative 0.2 % (0.0-1.9) FiO2 36 Medications Active Scripts Medications Dose Route/Sig Max Daily Dose Days Date Category Protonix (Pantoprazole Sodium) 20 Mg Tablet.dr 40 Mg PO PRN DAILY PRN 06/22/18 Reported Furosemide 40 Mg Tablet 40 Mg PO DAILY 30 05/23/18 Rx Ultram (Tramadol Hcl) 50 Mg Tablet 50 Mg PO Q6HRS PRN 04/20/18 Reported Duoneb 0.5-3(2.5) Mg/3 Ml (Albuterol/Ipratropium) 3 Ml Ampul.neb 3 Ml NEB QID 04/17/18 Reported Zofran (Ondansetron Hcl) 4 Mg Tablet 1 Tab PO Q8HRS PRN 05/19/16 Rx Atorvastatin Calcium 40 Mg Tablet 40 Mg PO HS 09/24/15 Reported Lisinopril 20 Mg Tablet 20 Mg PO DAILY 09/24/15 Reported Carvedilol 6.25 Mg Tablet 6.25 Mg PO BIDWMEALS 09/24/15 Reported Vitamin D (Cholecalciferol (Vitamin D3)) 2,000 Unit Capsule 2,000 Unit PO BIDAFTMEAL 01/07/15 Reported Aspirin Ec (Aspirin) 325 Mg Tablet.dr 325 Mg PO DAILY 01/07/15 Reported Clopidogrel (Clopidogrel Bisulfate) 75 Mg Tablet 75 Mg PO DAILY 01/07/15 Reported Impression . IMPRESSION: 1. Acute exacerbation of chronic obstructive pulmonary disease. 2. Acute hypoxemic respiratory failure secondary to ischemic cardiomyopathy, acute exacerbation of chronic obstructive pulmonary disease, possibly pulmonary fibrosis. 3. Chest heaviness. 4. Negative venous Dopplers of the lower extremities. 5. Low body mass index. IMPRESSION: 1. Cardiomegaly with moderate calcific plaquing of the aorta and coronary arteries. 2. Chronic right upper lobe infiltrate has worsened slightly since 07/05/2016, suggesting a combination of scarring and chronic pneumonitis. 3. Enlarged, calcified right hilar and mediastinal lymph nodes due to old granulomatous disease. 4. New mild left basilar atelectasis and/or pneumonitis. 5. Apparent mural thickening in the mid esophagus may be inflammatory. A neoplastic etiology cannot be excluded. Plan . ADD CLINDAMYCIN ADD ATIVAN SPOKE WITH FAMILY DYSPNEA IS MULTIFACTORIAL ENCOURAGE ORAL INTAKE 1. Recommend continue current medical regimen. 2. CT chest. 3. DVT and GI prophylaxis. 4. Increase caloric intake. REGGIE CONTRERAS MD Jun 24, 2018 09:25
[2018-06-24 10:21] LABS: HEMATOCRIT 40.1 % (36.0-47.0); HEMOGLOBIN 13.6 g/dL (12.0-15.5); RED BLOOD COUNT 4.53 x10^6/uL (3.50-5.40); RED CELL DISTRIBUTION WIDTH 14.6 % (11.5-14.5)
[2018-06-24 10:26] LABS: CALCIUM 9.3 mg/dL (8.5-10.1); GFR 65.6; MAGNESIUM 2.1 mg/dL (1.8-2.4); POTASSIUM 3.7 mmol/L (3.5-5.1)
[2018-06-24] MEDS: IPRATRPIUM/ALBUTEROL 0.5/2.5MG 3 ML NEBU. NEB SCH ×4 (11:01→22:11)
--- NOTE | 2018-06-24 11:06 | PDOC ---
PROGRESS NOTES Chief Complaint Chief Complaint Chest heaviness Indwelling pacer A.fib Undernourished-BMI 15.3 Hx bulimia Hypoxic respiratory failure Elevated d-dimer, no DVT on US, neg chest CT Inflammatory changes on chest x-ray Questionable hx COPD History of Present Illness History of Present Illness Pt seen and examined Family present at bedside Pt reports improved breathing Vitals Vitals Vital Signs Date Time Temp Pulse Resp B/P (MAP) Pulse Ox O2 Delivery O2 Flow Rate FiO2 06/24/18 10:00 75 16 95/45 (62) 98 Nasal Cannula 2.0 06/24/18 08:00 98.4 98.4 Physical Exam General: Alert, Cooperative, No acute distress, Other (malnourished) Heart: Regular rate, No murmurs Lungs: Clear Abdomen: Soft, No tenderness Extremities: No cyanosis, No edema Skin: No breakdown, No significant lesion Labs LABS Laboratory Tests Test 06/24/18 05:31 06/24/18 09:50 O2 Saturation 95 % (92-99) Arterial Blood pH 7.46 (7.35-7.45) Arterial Blood pCO2 at Patient Temp 42 mmHg (35-46) Arterial Blood pO2 at Patient Temp 77 mmHg (65-108) Arterial Blood HCO3 30 mmol/L (21-28) Arterial Blood Base Excess 5 mmol/L (-3-3) Oxyhemoglobin 94.8 % Methemoglobin 0.3 % (0.0-1.9) Carbon Monoxide, Quantitative 0.2 % (0.0-1.9) FiO2 36 White Blood Count 13.0 x10^3/uL (4.0-11.0) Red Blood Count 4.53 x10^6/uL (3.50-5.40) Hemoglobin 13.6 g/dL (12.0-15.5) Hematocrit 40.1 % (36.0-47.0) Mean Corpuscular Volume 88 fL (79-100) Mean Corpuscular Hemoglobin 30 pg (25-35) Mean Corpuscular Hemoglobin Concent 34 g/dL (31-37) Red Cell Distribution Width 14.6 % (11.5-14.5) Platelet Count 186 x10^3/uL (140-400) Sodium Level 137 mmol/L (136-145) Potassium Level 3.7 mmol/L (3.5-5.1) Chloride Level 98 mmol/L (98-107) Carbon Dioxide Level 35 mmol/L (21-32) Anion Gap 4 (6-14) Blood Urea Nitrogen 23 mg/dL (7-20) Creatinine 1.0 mg/dL (0.6-1.0) Estimated GFR (Cockcroft-Gault) 65.6 Glucose Level 191 mg/dL (70-99) Calcium Level 9.3 mg/dL (8.5-10.1) Magnesium Level 2.1 mg/dL (1.8-2.4) Review of Systems Review of Systems CO fatigue CO weakness Assessment and Plan Assessmemt and Plan Problems Medical Problems: (1) Acute bronchospasm Status: Acute (2) Acute CHF Status: Acute (3) Hypoxemia Status: Acute Chest heaviness Indwelling pacer A.fib Undernourished-BMI 15.3 Hx bulimia Hypoxic respiratory failure Elevated d-dimer, no DVT on US, neg chest CT Inflammatory changes on chest x-ray Questionable hx COPD Plan: ICU monitoring Diuresis GI consult O2 nasal cannula Labs Home meds PT/OT Possible transfer to floor Comment Review of Relevant I have reviewed the following items loren (where applicable) has been applied. Labs Laboratory Tests Test 06/23/18 09:00 06/24/18 05:31 06/24/18 09:50 Sodium Level 138 mmol/L (136-145) 137 mmol/L (136-145) Potassium Level 4.3 mmol/L (3.5-5.1) 3.7 mmol/L (3.5-5.1) Chloride Level 99 mmol/L (98-107) 98 mmol/L (98-107) Carbon Dioxide Level 33 mmol/L (21-32) 35 mmol/L (21-32) Anion Gap 6 (6-14) 4 (6-14) Blood Urea Nitrogen 23 mg/dL (7-20) 23 mg/dL (7-20) Creatinine 0.9 mg/dL (0.6-1.0) 1.0 mg/dL (0.6-1.0) Estimated GFR (Cockcroft-Gault) 74.1 65.6 Glucose Level 149 mg/dL (70-99) 191 mg/dL (70-99) Calcium Level 10.1 mg/dL (8.5-10.1) 9.3 mg/dL (8.5-10.1) Magnesium Level 2.1 mg/dL (1.8-2.4) 2.1 mg/dL (1.8-2.4) O2 Saturation 95 % (92-99) Arterial Blood pH 7.46 (7.35-7.45) Arterial Blood pCO2 at Patient Temp 42 mmHg (35-46) Arterial Blood pO2 at Patient Temp 77 mmHg (65-108) Arterial Blood HCO3 30 mmol/L (21-28) Arterial Blood Base Excess 5 mmol/L (-3-3) Oxyhemoglobin 94.8 % Methemoglobin 0.3 % (0.0-1.9) Carbon Monoxide, Quantitative 0.2 % (0.0-1.9) FiO2 36 White Blood Count 13.0 x10^3/uL (4.0-11.0) Red Blood Count 4.53 x10^6/uL (3.50-5.40) Hemoglobin 13.6 g/dL (12.0-15.5) Hematocrit 40.1 % (36.0-47.0) Mean Corpuscular Volume 88 fL (79-100) Mean Corpuscular Hemoglobin 30 pg (25-35) Mean Corpuscular Hemoglobin Concent 34 g/dL (31-37) Red Cell Distribution Width 14.6 % (11.5-14.5) Platelet Count 186 x10^3/uL (140-400) Laboratory Tests Test 06/24/18 05:31 06/24/18 09:50 O2 Saturation 95 % (92-99) Arterial Blood pH 7.46 (7.35-7.45) Arterial Blood pCO2 at Patient Temp 42 mmHg (35-46) Arterial Blood pO2 at Patient Temp 77 mmHg (65-108) Arterial Blood HCO3 30 mmol/L (21-28) Arterial Blood Base Excess 5 mmol/L (-3-3) Oxyhemoglobin 94.8 % Methemoglobin 0.3 % (0.0-1.9) Carbon Monoxide, Quantitative 0.2 % (0.0-1.9) FiO2 36 White Blood Count 13.0 x10^3/uL (4.0-11.0) Red Blood Count 4.53 x10^6/uL (3.50-5.40) Hemoglobin 13.6 g/dL (12.0-15.5) Hematocrit 40.1 % (36.0-47.0) Mean Corpuscular Volume 88 fL (79-100) Mean Corpuscular Hemoglobin 30 pg (25-35) Mean Corpuscular Hemoglobin Concent 34 g/dL (31-37) Red Cell Distribution Width 14.6 % (11.5-14.5) Platelet Count 186 x10^3/uL (140-400) Sodium Level 137 mmol/L (136-145) Potassium Level 3.7 mmol/L (3.5-5.1) Chloride Level 98 mmol/L (98-107) Carbon Dioxide Level 35 mmol/L (21-32) Anion Gap 4 (6-14) Blood Urea Nitrogen 23 mg/dL (7-20) Creatinine 1.0 mg/dL (0.6-1.0) Estimated GFR (Cockcroft-Gault) 65.6 Glucose Level 191 mg/dL (70-99) Calcium Level 9.3 mg/dL (8.5-10.1) Magnesium Level 2.1 mg/dL (1.8-2.4) Medications Current Medications Albuterol/ Ipratropium (Duoneb) 3 ml STK-MED ONCE .ROUTE ; Start 06/22/18 at 02: 37; Stop 06/22/18 at 02:38; Status DC Methylprednisolone Sodium Succinate (SOLU-Medrol 125MG VIAL) 125 mg 1X ONCE IV Last administered on 06/22/18at 03:45; Start 06/22/18 at 02:45; Stop 06/22/18 at 02:46; Status DC Albuterol/ Ipratropium (Duoneb) 3 ml 1X ONCE NEB Last administered on at 02:45; Start 06/22/18 at 02:45; Stop 06/22/18 at 02:46; Status DC Ondansetron HCl (Zofran) 4 mg 1X ONCE IV Last administered on 06/22/18at 03:45 ; Start 06/22/18 at 02:45; Stop 06/22/18 at 02:46; Status DC Ondansetron HCl (Zofran) 4 mg PRN Q8HRS PRN IV NAUSEA/VOMITING; Start 06/22/18 at 04:30; Stop 06/22/18 at 09:02; Status DC Nitroglycerin (Nitrostat) 0.4 mg PRN Q5MIN PRN SL CHEST PAIN; Start 06/22/18 at 04:30; Stop 06/23/18 at 04:29; Status DC Albuterol/ Ipratropium (Duoneb) 3 ml RTQID NEB Last administered on 06/23/18at 15:40; Start 06/22/18 at 08:00; Stop 06/23/18 at 07:59; Status DC Ondansetron HCl (Zofran) 4 mg PRN Q6HRS PRN IV NAUSEA/VOMITING; Start 06/22/18 at 09:15 Benzonatate (Tessalon Perle) 100 mg [id number] PO Last administered on 06/24/18at 08 :18; Start 06/22/18 at 10:00 Acetaminophen (Tylenol) 500 mg PRN Q6HRS PRN PO MILD PAIN / TEMP; Start at 09:00 Acetaminophen/ Codeine Phosphate (Tylenol #3) 1 tab PRN Q6HRS PRN PO MODERATE PAIN; Start 06/22/18 at 09:00 Guaifenesin (Robitussin Dm) 10 ml PRN Q6HRS PRN PO COUGH Last administered on at 17:14; Start 06/22/18 at 09:00 Aspirin (Ecotrin) 325 mg DAILY PO Last administered on 06/24/18 08:19; Start 06/22/18 at 10:00 Atorvastatin Calcium (Lipitor) 40 mg HS PO Last administered on 06/23/18at 21:22 ; Start 06/22/18 at 21:00 Carvedilol (Coreg) 6.25 mg BIDWMEALS PO Last administered on 06/24/18 08:19; Start 06/22/18 at 10:00 Clopidogrel Bisulfate (Plavix) 75 mg DAILY PO Last administered on 06/24/18 08 :19; Start 06/22/18 at 10:00 Furosemide (Lasix) 40 mg DAILY PO Last administered on 06/24/18 08:19; Start 06/22/18 at 10:00 Lisinopril (Prinivil) 20 mg DAILY PO Last administered on 06/24/18 08:19; Start 06/22/18 at 10:00 Tramadol HCl (Ultram) 50 mg Q6HRS PRN PO MILD TO MODERATE PAIN Last administered on 06/23/18at 08:33; Start 06/22/18 at 09:15 Vitamin D (Vitamin D3) 1,000 unit BIDAFTMEAL PO Last administered on 06/24/18at 08:19; Start 06/22/18 at 10:00 Ondansetron HCl (Zofran Odt) 8 mg PRN Q8HRS PRN PO NAUSEA/VOMITING Last administered on 06/23/18at 08:47; Start 06/22/18 at 10:00 Pantoprazole Sodium (Protonix) 40 mg DAILYAC PO Last administered on 06/24/18at 08:18; Start 06/22/18 at 11:30 Iohexol (Omnipaque 300 Mg/ml) 60 ml 1X ONCE IV Last administered on 06/22/18at 13:30; Start 06/22/18 at 13:30; Stop 06/22/18 at 13:32; Status DC Info (CONTRAST GIVEN -- Rx MONITORING) 1 each PRN DAILY PRN MC SEE COMMENTS; Start 06/22/18 at 13:45; Stop 06/24/18 at 13:44 Prednisone (Prednisone) 30 mg DAILY PO Last administered on 06/23/18at 08:34; Start 06/22/18 at 15:45; Stop 06/24/18 at 05:41; Status DC Doxycycline Hyclate (Vibra-Tab) 100 mg BID PO Last administered on 06/24/18at 08 :18; Start 06/23/18 at 11:30 Albuterol/ Ipratropium (Duoneb) 3 ml 1X ONCE NEB Last administered on at 07:04; Start 06/24/18 at 06:00; Stop 06/24/18 at 06:01; Status DC Methylprednisolone Sodium Succinate (SOLU-Medrol 125MG VIAL) 125 mg DAILY IV Last administered on 06/24/18at 05:50; Start 06/24/18 at 06:00 Furosemide (Lasix) 40 mg 1X ONCE IVP Last administered on 06/24/18at 05:50; Start 06/24/18 at 06:00; Stop 06/24/18 at 06:01; Status DC Albuterol/ Ipratropium (Duoneb) 3 ml RTQID NEB ; Start 06/24/18 at 08:00 Lorazepam (Ativan) 0.5 mg 1X ONCE PO ; Start 06/24/18 at 06:15; Stop 06/24/18 at 06:16; Status DC Active Scripts Active Doxycycline Hyclate 100 Mg Capsule 1 Cap PO BID Furosemide 40 Mg Tablet 40 Mg PO DAILY 30 Days Zofran (Ondansetron Hcl) 4 Mg Tablet 1 Tab PO Q8HRS PRN Reported Protonix (Pantoprazole Sodium) 20 Mg Tablet.dr 40 Mg PO PRN DAILY PRN Ultram (Tramadol Hcl) 50 Mg Tablet 50 Mg PO Q6HRS PRN Duoneb 0.5-3(2.5) Mg/3 Ml (Albuterol/Ipratropium) 3 Ml Ampul.neb 3 Ml NEB QID Atorvastatin Calcium 40 Mg Tablet 40 Mg PO HS Lisinopril 20 Mg Tablet 20 Mg PO DAILY Carvedilol 6.25 Mg Tablet 6.25 Mg PO BIDWMEALS Vitamin D (Cholecalciferol (Vitamin D3)) 2,000 Unit Capsule 2,000 Unit PO BIDAFTMEAL Aspirin Ec (Aspirin) 325 Mg Tablet.dr 325 Mg PO DAILY Clopidogrel (Clopidogrel Bisulfate) 75 Mg Tablet 75 Mg PO DAILY Vitals/I & O Vital Sign - Last 24 Hours 06/23/18 06/23/18 06/23/18 06/23/18 11:48 15:00 15:42 17:14 Pulse 75 76 Resp 18 B/P (MAP) 129/71 (90) 128/67 Pulse Ox 96 100 O2 Delivery Room Air Room Air Room Air 06/23/18 06/23/18 06/23/18 06/24/18 19:00 20:00 23:00 03:00 Temp 97.9 98.1 98.1 97.9 98.1 98.1 Pulse 71 68 68 Resp 16 15 14 B/P (MAP) 123/57 (79) 119/56 (77) 118/57 (77) Pulse Ox 94 96 96 O2 Delivery Room Air Room Air Nasal Cannula Room Air O2 Flow Rate 2.0 06/24/18 06/24/18 06/24/18 06/24/18 06:00 06:28 06:30 06:45 Temp 99.0 99.0 Pulse 68 60 Resp 14 14 B/P (MAP) 154/83 (106) 143/75 (97) Pulse Ox 100 98 98 98 O2 Delivery BiPAP/CPAP Room Air Nasal Cannula Nasal Cannula O2 Flow Rate 2.0 2.0 06/24/18 06/24/18 06/24/18 06/24/18 07:07 08:00 08:00 08:19 Temp 98.4 98.4 Pulse 62 64 Resp 15 B/P (MAP) 117/52 (73) 140/80 Pulse Ox 99 O2 Delivery Nasal Cannula Nasal Cannula Nasal Cannula O2 Flow Rate 2.0 2.0 2.0 06/24/18 06/24/18 06/24/18 08:19 09:00 10:00 Pulse 64 62 75 Resp 15 16 B/P (MAP) 140/80 149/81 (103) 95/45 (62) Pulse Ox 99 98 O2 Delivery Nasal Cannula Nasal Cannula O2 Flow Rate 2.0 2.0 Intake and Output 06/23/18 06/23/18 06/24/18 15:00 23:00 07:00 Intake Total 4106 ml 2304 ml Output Total 30 ml 0 ml Balance 4076 ml 2304 ml 0 ml Nutrition Consultation Dietary Evaluation: Comments: REC Jevity 1.5 bolus 4 x day with 175 ml flushes with each bolus continue diet as tolerated Expected Outcomes/Goals: to meet > 75% est nutr needs via TF/ po intake Malnutrition Findings: Body Fat Depletion (Non Severe: Mod to Severe Weight Status: Underweight AGUILAR NI III DO Jun 24, 2018 11:06
[2018-06-24] MEDS: LACTOBACILLUS RHAMNOSUS GG 1 CAPSULE. PO SCH ×2 (12:45→20:53)
--- NOTE | 2018-06-24 13:30 | PDOC2 ---
GI CONSULT Reason For Consult: Abnormal CT findings HPI: HPI: 73 y/o female who we have seen in the past. Admitted on 06/22/18 w/ acute resp failure - h/o COPD, cardiomyopathy. CT chest noted mural thickening in mid esophagus, we were asked to see for same. She has a long h/o dysphagia with previous EGDs and esophageal dilations in the past. She tells me dilations help "for awhile." [facility] records received from 2016: EGD - Schatzki's ring dilated to 17mm, 2 cm hiatal hernia, normal stomach, normal duodenum. Distal esophagus biopsy c/w reflux, proximal esophagus w/ increased eosinophils possibly c/w eosinophilic esophagitis. Esophagram - esophageal dysmotility. Esophageal manometry - abnormal w/ reduced esophageal compliance and functional outflow obstruction from EoE vs achalasia. She is unaware of any diagnosis of achalasia or EoE. Videoswalllow was negative for aspiration here in 2016. EGD by Dr. Emery in 07/2016: benign esophageal stricture dilated to 54Fr w/ normal stomach and duodenum. Esophageal biopsies were c/w reflux and negative for Maharaj's or malignancy. Takes an occasional "acid pill" (can't tell me which one - "all of them"). Eventually had a PEG placed @ . Thinks her last EGD was there about 1 year ago. Uses PEG daily and also eats/drinks by mouth daily. Despite this, is losing weight. Has a good appetite and denies n/v. Solid foods get stuck in the mid chest (not daily - occurred yesterday while eating ramon and eggs, can' t say when occurred before that) and then she coughs it up with phlegm. Never has issues with liquids. Denies odynophagia, abd pain, diarrhea, constipation, and bleeding. Last colonoscopy w/ polyps @ [facility] in ~12/2015. No GB, liver, or pancreas history. PMH: PMH: CAD s/p PCI, CHF, cardiomyopathy, HTN, HLD, mitral regurg, COPD, GERD, hepatic steatosis, nephrolithiasis, UTI, AICD, bony fractures, appendectomy, hysterectomy FH: Family History: CVA Social History: Smoke: <1 pack per day Drugs: Marijuana ROS: GEN: Denies fevers, chills, sweats HEENT: Denies blurred vision, sore throat CV: Denies chest pain RESP: Denies shortness of air, cough GI: Per HPI : Denies hematuria, dysuria ENDO: +weight loss NEURO: Denies confusion, dizziness MSK: Denies weakness, joint pain/swelling SKIN: Denies jaundice, pruritus Vitals: Vitals: Vital Signs Date Time Temp Pulse Resp B/P (MAP) Pulse Ox O2 Delivery O2 Flow Rate FiO2 06/24/18 11:03 Nasal Cannula 2.0 06/24/18 11:00 77 14 100/53 (69) 97 06/24/18 08:00 98.4 98.4 Labs: Labs: Laboratory Tests Test 06/24/18 05:31 06/24/18 09:50 O2 Saturation 95 % (92-99) Arterial Blood pH 7.46 (7.35-7.45) Arterial Blood pCO2 at Patient Temp 42 mmHg (35-46) Arterial Blood pO2 at Patient Temp 77 mmHg (65-108) Arterial Blood HCO3 30 mmol/L (21-28) Arterial Blood Base Excess 5 mmol/L (-3-3) Oxyhemoglobin 94.8 % Methemoglobin 0.3 % (0.0-1.9) Carbon Monoxide, Quantitative 0.2 % (0.0-1.9) FiO2 36 White Blood Count 13.0 x10^3/uL (4.0-11.0) Red Blood Count 4.53 x10^6/uL (3.50-5.40) Hemoglobin 13.6 g/dL (12.0-15.5) Hematocrit 40.1 % (36.0-47.0) Mean Corpuscular Volume 88 fL (79-100) Mean Corpuscular Hemoglobin 30 pg (25-35) Mean Corpuscular Hemoglobin Concent 34 g/dL (31-37) Red Cell Distribution Width 14.6 % (11.5-14.5) Platelet Count 186 x10^3/uL (140-400) Sodium Level 137 mmol/L (136-145) Potassium Level 3.7 mmol/L (3.5-5.1) Chloride Level 98 mmol/L (98-107) Carbon Dioxide Level 35 mmol/L (21-32) Anion Gap 4 (6-14) Blood Urea Nitrogen 23 mg/dL (7-20) Creatinine 1.0 mg/dL (0.6-1.0) Estimated GFR (Cockcroft-Gault) 65.6 Glucose Level 191 mg/dL (70-99) Calcium Level 9.3 mg/dL (8.5-10.1) Magnesium Level 2.1 mg/dL (1.8-2.4) Allergies: Coded Allergies: Penicillins (Verified Allergy, Intermediate, hives, 08/03/16) Sulfa (Sulfonamide Antibiotics) (Verified Allergy, Intermediate, hives, ) Medications: Current Medications Medications (Trade) Dose Ordered Sig/Lisandra Route PRN Reason Start Time Stop Time Status Last Admin Dose Admin Albuterol/ Ipratropium (Duoneb) 3 ml 1X ONCE NEB 06/24/18 06:00 06/24/18 06:01 DC 06/24/18 07:04 Methylprednisolone Sodium Succinate (SOLU-Medrol 125MG VIAL) 125 mg DAILY IV 06/24/18 06:00 06/24/18 05:50 Furosemide (Lasix) 40 mg 1X ONCE IVP 06/24/18 06:00 06/24/18 06:01 DC 06/24/18 05:50 Albuterol/ Ipratropium (Duoneb) 3 ml RTQID NEB 06/24/18 08:00 06/24/18 11:02 Lactobacillus Rhamnosus (Culturelle) 1 cap BID PO 06/24/18 12:00 06/24/18 12:45 Imaging: Imaging: CXR 06/22/18 IMPRESSION: 1. Unchanged reticular pulmonary opacities, worse on the right, suggesting fibrosis with a possible superimposed component of residual pneumonitis. 2. No new abnormality is detected. LE US IMPRESSION: 1. No thrombus identified in deep venous system of bilateral lower extremities. Chest CT IMPRESSION: 1. Cardiomegaly with moderate calcific plaquing of the aorta and coronary arteries. 2. Chronic right upper lobe infiltrate has worsened slightly since 07/05/2016, suggesting a combination of scarring and chronic pneumonitis. 3. Enlarged, calcified right hilar and mediastinal lymph nodes due to old granulomatous disease. 4. New mild left basilar atelectasis and/or pneumonitis. 5. Apparent mural thickening in the mid esophagus may be inflammatory. A neoplastic etiology cannot be excluded. CXR 06/24/18 IMPRESSION: No significant change since 06/22/2018. PE: GEN: NAD, thin HEENT: Atraumatic, PERRL LUNGS: NC, diminished HEART: RRR ABD: NABS, S/ND/NT, PEG in place - bumper was loose - tightened EXTREMITY: No edema SKIN: No rashes, no jaundice NEURO/PSYCH: A & O 3 A/P: A/P: Acute resp failure Abnormal CT report - thickening of esophagus Dysphagia (unclear cause w/ extensive workup) w/ PEG in place GERD - on PPI here CRC screen, h/o colon polyps -- Reviewed CT findings w/ Dr. Hodges - similar findings on past imaging. Continue PPI. Okay to eat by mouth and use PEG. FARHAN AKINS Jun 24, 2018 13:30
[2018-06-24] MEDS: CLINDAMYCIN 600MG PREMIX 50 ML IV SCH ×2 (14:24→22:20)
[2018-06-24] MEDS: ATORVASTATIN CALCIUM 40 MG TABLET. PO SCH (20:53)
[2018-06-24] MEDS: traMADol 50 MG TABLET PO PRN (20:53)
[2018-06-25] VITALS (7 sets, daily range): BP systolic 102–137; BP diastolic 48–89
[2018-06-25] MEDS: CLINDAMYCIN 600MG PREMIX 50 ML IV SCH ×3 (06:33→22:29)
[2018-06-25] MEDS: traMADol 50 MG TABLET PO PRN ×2 (06:35→20:45)
[2018-06-25] MEDS: IPRATRPIUM/ALBUTEROL 0.5/2.5MG 3 ML NEBU. NEB SCH ×4 (07:54→20:00)
[2018-06-25] MEDS: LACTOBACILLUS RHAMNOSUS GG 1 CAPSULE. PO SCH ×2 (08:28→20:45)
[2018-06-25] MEDS: DOXYCYCLINE HYCLATE 100 MG TABLET PO SCH ×2 (08:29→20:45)
[2018-06-25] MEDS: BENZONATATE 100 MG CAPSULE. PO SCH ×3 (08:29→20:45)
[2018-06-25] MEDS: PANTOPRAZOLE 40 MG TABLET.DR. PO SCH (08:29)
[2018-06-25] MEDS: LISINOPRIL 20 MG TABLET PO SCH (08:29)
[2018-06-25] MEDS: FUROSEMIDE 40 MG TABLET. PO SCH (08:29)
[2018-06-25] MEDS: CLOPIDOGREL BISULFATE 75 MG TABLET PO SCH (08:29)
[2018-06-25] MEDS: methylPREDNISolone SOD SUCC PF 125 MG/2 ML VIAL. IV SCH (08:30)
[2018-06-25] MEDS: ASPIRIN ENTERIC COATED 325 MG TABLET.DR. PO SCH (08:30)
[2018-06-25] MEDS: CARVEDILOL 6.25 MG TABLET. PO SCH ×2 (08:30→17:26)
[2018-06-25] MEDS: CHOLECALCIFEROL (VITAMIN D3) 1,000 UNIT TABLET PO SCH ×2 (08:30→17:25)
--- NOTE | 2018-06-25 08:45 | PDOC ---
PULMONARY PROGRESS NOTES Subjective PT THIS AM MORE SOA STATES SAME THING HAPPENS TO HER AT HOME Vitals Vital Signs Date Time Temp Pulse Resp B/P (MAP) Pulse Ox O2 Delivery O2 Flow Rate FiO2 06/25/18 08:30 64 137/75 06/25/18 08:28 98 Nasal Cannula 2.0 06/25/18 06:35 20 06/25/18 05:00 97.7 97.7 ROS: No Nausea, No Chest Pain, No Abdominal Pain, No Increase Cough General: Alert, No acute distress Lungs: Crackles Cardiovascular: S1, S2 Abdomen: Soft Extremities: No Edema Labs Laboratory Tests Test 06/23/18 09:00 06/24/18 05:31 06/24/18 06:30 06/24/18 09:50 Sodium Level 138 mmol/L (136-145) 137 mmol/L (136-145) Potassium Level 4.3 mmol/L (3.5-5.1) 3.7 mmol/L (3.5-5.1) Chloride Level 99 mmol/L (98-107) 98 mmol/L (98-107) Carbon Dioxide Level 33 mmol/L (21-32) 35 mmol/L (21-32) Anion Gap 6 (6-14) 4 (6-14) Blood Urea Nitrogen 23 mg/dL (7-20) 23 mg/dL (7-20) Creatinine 0.9 mg/dL (0.6-1.0) 1.0 mg/dL (0.6-1.0) Estimated GFR (Cockcroft-Gault) 74.1 65.6 Glucose Level 149 mg/dL (70-99) 191 mg/dL (70-99) Calcium Level 10.1 mg/dL (8.5-10.1) 9.3 mg/dL (8.5-10.1) Magnesium Level 2.1 mg/dL (1.8-2.4) 2.1 mg/dL (1.8-2.4) O2 Saturation 95 % (92-99) Arterial Blood pH 7.46 (7.35-7.45) Arterial Blood pCO2 at Patient Temp 42 mmHg (35-46) Arterial Blood pO2 at Patient Temp 77 mmHg (65-108) Arterial Blood HCO3 30 mmol/L (21-28) Arterial Blood Base Excess 5 mmol/L (-3-3) Oxyhemoglobin 94.8 % Methemoglobin 0.3 % (0.0-1.9) Carbon Monoxide, Quantitative 0.2 % (0.0-1.9) FiO2 36 Nasal Screen MRSA (PCR) Negative (Negative) White Blood Count 13.0 x10^3/uL (4.0-11.0) Red Blood Count 4.53 x10^6/uL (3.50-5.40) Hemoglobin 13.6 g/dL (12.0-15.5) Hematocrit 40.1 % (36.0-47.0) Mean Corpuscular Volume 88 fL (79-100) Mean Corpuscular Hemoglobin 30 pg (25-35) Mean Corpuscular Hemoglobin Concent 34 g/dL (31-37) Red Cell Distribution Width 14.6 % (11.5-14.5) Platelet Count 186 x10^3/uL (140-400) Laboratory Tests Test 06/24/18 09:50 White Blood Count 13.0 x10^3/uL (4.0-11.0) Red Blood Count 4.53 x10^6/uL (3.50-5.40) Hemoglobin 13.6 g/dL (12.0-15.5) Hematocrit 40.1 % (36.0-47.0) Mean Corpuscular Volume 88 fL (79-100) Mean Corpuscular Hemoglobin 30 pg (25-35) Mean Corpuscular Hemoglobin Concent 34 g/dL (31-37) Red Cell Distribution Width 14.6 % (11.5-14.5) Platelet Count 186 x10^3/uL (140-400) Sodium Level 137 mmol/L (136-145) Potassium Level 3.7 mmol/L (3.5-5.1) Chloride Level 98 mmol/L (98-107) Carbon Dioxide Level 35 mmol/L (21-32) Anion Gap 4 (6-14) Blood Urea Nitrogen 23 mg/dL (7-20) Creatinine 1.0 mg/dL (0.6-1.0) Estimated GFR (Cockcroft-Gault) 65.6 Glucose Level 191 mg/dL (70-99) Calcium Level 9.3 mg/dL (8.5-10.1) Magnesium Level 2.1 mg/dL (1.8-2.4) Medications Active Scripts Medications Dose Route/Sig Max Daily Dose Days Date Category Protonix (Pantoprazole Sodium) 20 Mg Tablet.dr 40 Mg PO PRN DAILY PRN 06/22/18 Reported Furosemide 40 Mg Tablet 40 Mg PO DAILY 30 05/23/18 Rx Ultram (Tramadol Hcl) 50 Mg Tablet 50 Mg PO Q6HRS PRN 04/20/18 Reported Duoneb 0.5-3(2.5) Mg/3 Ml (Albuterol/Ipratropium) 3 Ml Ampul.neb 3 Ml NEB QID 04/17/18 Reported Zofran (Ondansetron Hcl) 4 Mg Tablet 1 Tab PO Q8HRS PRN 05/19/16 Rx Atorvastatin Calcium 40 Mg Tablet 40 Mg PO HS 09/24/15 Reported Lisinopril 20 Mg Tablet 20 Mg PO DAILY 09/24/15 Reported Carvedilol 6.25 Mg Tablet 6.25 Mg PO BIDWMEALS 09/24/15 Reported Vitamin D (Cholecalciferol (Vitamin D3)) 2,000 Unit Capsule 2,000 Unit PO BIDAFTMEAL 01/07/15 Reported Aspirin Ec (Aspirin) 325 Mg Tablet.dr 325 Mg PO DAILY 01/07/15 Reported Clopidogrel (Clopidogrel Bisulfate) 75 Mg Tablet 75 Mg PO DAILY 01/07/15 Reported Impression . IMPRESSION: 1. Acute exacerbation of chronic obstructive pulmonary disease. 2. Acute hypoxemic respiratory failure secondary to ischemic cardiomyopathy, acute exacerbation of chronic obstructive pulmonary disease, possibly pulmonary fibrosis. 3. Chest heaviness. 4. Negative venous Doppler of the lower extremities. 5. Low body mass index. 6. S/P PEG IMPRESSION: 1. Cardiomegaly with moderate calcific plaquing of the aorta and coronary arteries. 2. Chronic right upper lobe infiltrate has worsened slightly since 07/05/2016, suggesting a combination of scarring and chronic pneumonitis. 3. Enlarged, calcified right hilar and mediastinal lymph nodes due to old granulomatous disease. 4. New mild left basilar atelectasis and/or pneumonitis. 5. Apparent mural thickening in the mid esophagus may be inflammatory. A neoplastic etiology cannot be excluded. Plan . RESP STATUS IS COMPENSATED OK TO D/C IN AM CLINDAMYCIN [employer] PROGNOSIS REGGIE CONTRERAS MD Jun 25, 2018 08:45
--- NOTE | 2018-06-25 11:52 | PDOC ---
PROGRESS NOTES Chief Complaint Chief Complaint Chest heaviness Indwelling pacer A.fib Undernourished-BMI 15.3 Hx bulimia Hypoxic respiratory failure Elevated d-dimer, no DVT on US, neg chest CT Inflammatory changes on chest x-ray Questionable hx COPD History of Present Illness History of Present Illness continues to improve, but complaining of some chest pain with coughing as well as mucous staying, keeps tryign to throw up Vitals Vitals Vital Signs Date Time Temp Pulse Resp B/P (MAP) Pulse Ox O2 Delivery O2 Flow Rate FiO2 06/25/18 11:39 95 Nasal Cannula 2.0 06/25/18 11:00 96.3 138 18 129/87 (101) 96.3 Physical Exam General: Alert, Cooperative, No acute distress, Other (malnourished) Heart: Regular rate, No murmurs Lungs: Crackles Abdomen: Soft, No tenderness Extremities: No cyanosis, No edema Skin: No breakdown, No significant lesion Assessment and Plan Assessmemt and Plan Problems Medical Problems: (1) Acute bronchospasm Status: Acute (2) Acute CHF Status: Acute (3) Hypoxemia Status: Acute Plan - i will add flutter valve - continue ambulation - tube feeds see orders Comment Review of Relevant I have reviewed the following items loren (where applicable) has been applied. Labs Laboratory Tests Test 06/24/18 05:31 06/24/18 06:30 06/24/18 09:50 O2 Saturation 95 % (92-99) Arterial Blood pH 7.46 (7.35-7.45) Arterial Blood pCO2 at Patient Temp 42 mmHg (35-46) Arterial Blood pO2 at Patient Temp 77 mmHg (65-108) Arterial Blood HCO3 30 mmol/L (21-28) Arterial Blood Base Excess 5 mmol/L (-3-3) Oxyhemoglobin 94.8 % Methemoglobin 0.3 % (0.0-1.9) Carbon Monoxide, Quantitative 0.2 % (0.0-1.9) FiO2 36 Nasal Screen MRSA (PCR) Negative (Negative) White Blood Count 13.0 x10^3/uL (4.0-11.0) Red Blood Count 4.53 x10^6/uL (3.50-5.40) Hemoglobin 13.6 g/dL (12.0-15.5) Hematocrit 40.1 % (36.0-47.0) Mean Corpuscular Volume 88 fL (79-100) Mean Corpuscular Hemoglobin 30 pg (25-35) Mean Corpuscular Hemoglobin Concent 34 g/dL (31-37) Red Cell Distribution Width 14.6 % (11.5-14.5) Platelet Count 186 x10^3/uL (140-400) Sodium Level 137 mmol/L (136-145) Potassium Level 3.7 mmol/L (3.5-5.1) Chloride Level 98 mmol/L (98-107) Carbon Dioxide Level 35 mmol/L (21-32) Anion Gap 4 (6-14) Blood Urea Nitrogen 23 mg/dL (7-20) Creatinine 1.0 mg/dL (0.6-1.0) Estimated GFR (Cockcroft-Gault) 65.6 Glucose Level 191 mg/dL (70-99) Calcium Level 9.3 mg/dL (8.5-10.1) Magnesium Level 2.1 mg/dL (1.8-2.4) Medications Current Medications Albuterol/ Ipratropium (Duoneb) 3 ml STK-MED ONCE .ROUTE ; Start 06/22/18 at 02: 37; Stop 06/22/18 at 02:38; Status DC Methylprednisolone Sodium Succinate (SOLU-Medrol 125MG VIAL) 125 mg 1X ONCE IV Last administered on 06/22/18at 03:45; Start 06/22/18 at 02:45; Stop 06/22/18 at 02:46; Status DC Albuterol/ Ipratropium (Duoneb) 3 ml 1X ONCE NEB Last administered on at 02:45; Start 06/22/18 at 02:45; Stop 06/22/18 at 02:46; Status DC Ondansetron HCl (Zofran) 4 mg 1X ONCE IV Last administered on 06/22/18at 03:45 ; Start 06/22/18 at 02:45; Stop 06/22/18 at 02:46; Status DC Ondansetron HCl (Zofran) 4 mg PRN Q8HRS PRN IV NAUSEA/VOMITING; Start 06/22/18 at 04:30; Stop 06/22/18 at 09:02; Status DC Nitroglycerin (Nitrostat) 0.4 mg PRN Q5MIN PRN SL CHEST PAIN; Start 06/22/18 at 04:30; Stop 06/23/18 at 04:29; Status DC Albuterol/ Ipratropium (Duoneb) 3 ml RTQID NEB Last administered on 06/23/18at 15:40; Start 06/22/18 at 08:00; Stop 06/23/18 at 07:59; Status DC Ondansetron HCl (Zofran) 4 mg PRN Q6HRS PRN IV NAUSEA/VOMITING; Start 06/22/18 at 09:15 Benzonatate (Tessalon Perle) 100 mg [id number] PO Last administered on 06/25/18at 08 :29; Start 06/22/18 at 10:00 Acetaminophen (Tylenol) 500 mg PRN Q6HRS PRN PO MILD PAIN / TEMP; Start at 09:00 Acetaminophen/ Codeine Phosphate (Tylenol #3) 1 tab PRN Q6HRS PRN PO MODERATE- SEVERE PAIN 2ND CHOIC; Start 06/22/18 at 09:00 Guaifenesin (Robitussin Dm) 10 ml PRN Q6HRS PRN PO COUGH Last administered on at 17:14; Start 06/22/18 at 09:00 Aspirin (Ecotrin) 325 mg DAILY PO Last administered on 06/25/18 08:30; Start 06/22/18 at 10:00 Atorvastatin Calcium (Lipitor) 40 mg HS PO Last administered on 06/24/18at 20:53 ; Start 06/22/18 at 21:00 Carvedilol (Coreg) 6.25 mg BIDWMEALS PO Last administered on 06/25/18at 08:30; Start 06/22/18 at 10:00 Clopidogrel Bisulfate (Plavix) 75 mg DAILY PO Last administered on 06/25/18 08 :29; Start 06/22/18 at 10:00 Furosemide (Lasix) 40 mg DAILY PO Last administered on 06/25/18 08:29; Start 06/22/18 at 10:00 Lisinopril (Prinivil) 20 mg DAILY PO Last administered on 06/25/18 08:29; Start 06/22/18 at 10:00 Tramadol HCl (Ultram) 50 mg Q6HRS PRN PO MODERATE-SEVERE PAIN 1ST CHOIC Last administered on 06/25/18at 06:35; Start 06/22/18 at 09:15 Vitamin D (Vitamin D3) 1,000 unit BIDAFTMEAL PO Last administered on 06/25/18at 08:30; Start 06/22/18 at 10:00 Ondansetron HCl (Zofran Odt) 8 mg PRN Q8HRS PRN PO NAUSEA/VOMITING Last administered on 06/23/18at 08:47; Start 06/22/18 at 10:00 Pantoprazole Sodium (Protonix) 40 mg DAILYAC PO Last administered on 06/25/18 08:29; Start 06/22/18 at 11:30 Iohexol (Omnipaque 300 Mg/ml) 60 ml 1X ONCE IV Last administered on 06/22/18at 13:30; Start 06/22/18 at 13:30; Stop 06/22/18 at 13:32; Status DC Info (CONTRAST GIVEN -- Rx MONITORING) 1 each PRN DAILY PRN MC SEE COMMENTS; Start 06/22/18 at 13:45; Stop 06/24/18 at 13:44; Status DC Prednisone (Prednisone) 30 mg DAILY PO Last administered on 06/23/18at 08:34; Start 06/22/18 at 15:45; Stop 06/24/18 at 05:41; Status DC Doxycycline Hyclate (Vibra-Tab) 100 mg BID PO Last administered on 06/25/18at 08 :29; Start 06/23/18 at 11:30 Albuterol/ Ipratropium (Duoneb) 3 ml 1X ONCE NEB Last administered on at 07:04; Start 06/24/18 at 06:00; Stop 06/24/18 at 06:01; Status DC Methylprednisolone Sodium Succinate (SOLU-Medrol 125MG VIAL) 125 mg DAILY IV Last administered on 06/25/18at 08:30; Start 06/24/18 at 06:00 Furosemide (Lasix) 40 mg 1X ONCE IVP Last administered on 06/24/18at 05:50; Start 06/24/18 at 06:00; Stop 06/24/18 at 06:01; Status DC Albuterol/ Ipratropium (Duoneb) 3 ml RTQID NEB Last administered on 06/25/18at 11:38; Start 06/24/18 at 08:00 Lorazepam (Ativan) 0.5 mg 1X ONCE PO ; Start 06/24/18 at 06:15; Stop 06/24/18 at 06:16; Status DC Lactobacillus Rhamnosus (Culturelle) 1 cap BID PO Last administered on at 08:28; Start 06/24/18 at 12:00 Lorazepam (Ativan) 0.5 mg PRN Q4HRS PRN IV ANXIETY / AGITATION; Start 06/24/18 at 13:15 Clindamycin Phosphate 50 ml @ 100 mls/hr Q8HRS IV Last administered on at 06:33; Start 06/24/18 at 14:00 Active Scripts Active Doxycycline Hyclate 100 Mg Capsule 1 Cap PO BID Furosemide 40 Mg Tablet 40 Mg PO DAILY 30 Days Zofran (Ondansetron Hcl) 4 Mg Tablet 1 Tab PO Q8HRS PRN Reported Protonix (Pantoprazole Sodium) 20 Mg Tablet.dr 40 Mg PO PRN DAILY PRN Ultram (Tramadol Hcl) 50 Mg Tablet 50 Mg PO Q6HRS PRN Duoneb 0.5-3(2.5) Mg/3 Ml (Albuterol/Ipratropium) 3 Ml Ampul.neb 3 Ml NEB QID Atorvastatin Calcium 40 Mg Tablet 40 Mg PO HS Lisinopril 20 Mg Tablet 20 Mg PO DAILY Carvedilol 6.25 Mg Tablet 6.25 Mg PO BIDWMEALS Vitamin D (Cholecalciferol (Vitamin D3)) 2,000 Unit Capsule 2,000 Unit PO BIDAFTMEAL Aspirin Ec (Aspirin) 325 Mg Tablet. 325 Mg PO DAILY Clopidogrel (Clopidogrel Bisulfate) 75 Mg Tablet 75 Mg PO DAILY Vitals/I & O Vital Sign - Last 24 Hours 06/24/18 06/24/18 06/24/18 06/24/18 14:15 16:00 16:18 17:36 Temp 97.7 97.7 Pulse 76 76 Resp 16 B/P (MAP) 118/64 (82) 118/64 Pulse Ox 94 98 O2 Delivery Nasal Cannula Nasal Cannula Nasal Cannula O2 Flow Rate 2.0 2.0 2.0 06/24/18 06/24/18 06/24/18 06/24/18 19:00 20:50 20:53 22:13 Temp 97.7 97.7 Pulse 75 Resp 16 20 B/P (MAP) 145/81 (102) Pulse Ox 97 98 O2 Delivery Nasal Cannula Nasal Cannula Nasal Cannula Nasal Cannula O2 Flow Rate 2.0 2.0 2.0 2.0 06/24/18 06/24/18 06/25/18 06/25/18 22:22 23:00 03:00 05:00 Temp 97.7 97.7 97.7 97.7 97.7 97.7 Pulse 77 70 64 Resp 20 16 16 16 B/P (MAP) 109/60 (76) 121/89 (100) 121/78 (92) Pulse Ox 97 98 95 O2 Delivery Nasal Cannula Nasal Cannula Nasal Cannula O2 Flow Rate 2.0 2.0 2.0 06/25/18 06/25/18 06/25/18 06/25/18 06:35 07:00 07:56 08:20 Temp 96.3 96.3 Pulse 64 Resp 20 18 B/P (MAP) 137/75 (95) Pulse Ox 97 98 O2 Delivery Nasal Cannula Nasal Cannula Nasal Cannula Nasal Cannula O2 Flow Rate 2.0 2.0 2.0 2.0 06/25/18 06/25/18 06/25/18 06/25/18 08:28 08:29 08:30 11:00 Temp 96.3 96.3 Pulse 64 64 138 Resp 18 B/P (MAP) 137/75 137/75 129/87 (101) Pulse Ox 98 95 O2 Delivery Nasal Cannula Nasal Cannula O2 Flow Rate 2.0 2.0 06/25/18 11:39 Pulse Ox 95 O2 Delivery Nasal Cannula O2 Flow Rate 2.0 Intake and Output 06/24/18 06/24/18 06/25/18 15:00 23:00 07:00 Intake Total 400 ml Output Total 1100 ml 650 ml 300 ml Balance -1100 ml -650 ml 100 ml Nutrition Consultation Dietary Evaluation: Recommendations by RD: Protein supplementation Comments: REC Osmolite 1.5 bolus 5 x day with 100 ml flushes with each bolus continue diet as tolerated REC Ensure TID ([place]) Expected Outcomes/Goals: to meet > 75% est nutr needs via TF/ po intake - met at times, goal ongoing Malnutrition Findings: Body Fat Depletion (Non Severe: Mod to Severe Weight Status: Underweight BONNIE ENG MD Jun 25, 2018 11:52
--- NOTE | 2018-06-25 13:27 | PDOC ---
Subjective: Subjective: Says she ate a couple bites PO earlier and then coughed up phlegm but not food. PEG functioning. Objective: Vital Signs: Vital Signs Date Time Temp Pulse Resp B/P (MAP) Pulse Ox O2 Delivery O2 Flow Rate FiO2 06/25/18 11:39 95 Nasal Cannula 2.0 06/25/18 11:00 96.3 138 18 116/68 (84) 96.3 PE: GEN: NAD, up to chair LUNGS: phlegmy cough HEART: RRR ABD: non-tender, PEG in place NEURO/PSYCH: A & O 3 A/P: Resp failure Chronic dysphagia w/ PEG -- Productive cough - she might be confusing with dysphagia or retching. Continue same per GI. FARHAN AKINS Jun 25, 2018 13:27
[2018-06-25] MEDS: ATORVASTATIN CALCIUM 40 MG TABLET. PO SCH (20:45)
[2018-06-26 03:00] VITALS: BP 114/62
[2018-06-26] MEDS: CLINDAMYCIN 600MG PREMIX 50 ML IV SCH ×3 (06:02→21:41)
[2018-06-26 07:30] VITALS: BP 135/80
--- NOTE | 2018-06-26 07:49 | PDOC ---
PULMONARY PROGRESS NOTES Subjective not on home 02, has cough, sob, no pain Vitals Vital Signs Date Time Temp Pulse Resp B/P (MAP) Pulse Ox O2 Delivery O2 Flow Rate FiO2 06/26/18 03:00 97.9 73 20 114/62 (79) 97 Nasal Cannula 2.0 97.9 ROS: No Nausea, No Chest Pain, No Abdominal Pain, No Increase Cough General: Alert, No acute distress Lungs: Wheezing, Crackles Cardiovascular: S1, S2 Abdomen: Soft, Non-tender Neuro Exam: Alert Extremities: No Edema Skin: Warm Labs Laboratory Tests Test 06/24/18 09:50 White Blood Count 13.0 x10^3/uL (4.0-11.0) Red Blood Count 4.53 x10^6/uL (3.50-5.40) Hemoglobin 13.6 g/dL (12.0-15.5) Hematocrit 40.1 % (36.0-47.0) Mean Corpuscular Volume 88 fL (79-100) Mean Corpuscular Hemoglobin 30 pg (25-35) Mean Corpuscular Hemoglobin Concent 34 g/dL (31-37) Red Cell Distribution Width 14.6 % (11.5-14.5) Platelet Count 186 x10^3/uL (140-400) Sodium Level 137 mmol/L (136-145) Potassium Level 3.7 mmol/L (3.5-5.1) Chloride Level 98 mmol/L (98-107) Carbon Dioxide Level 35 mmol/L (21-32) Anion Gap 4 (6-14) Blood Urea Nitrogen 23 mg/dL (7-20) Creatinine 1.0 mg/dL (0.6-1.0) Estimated GFR (Cockcroft-Gault) 65.6 Glucose Level 191 mg/dL (70-99) Calcium Level 9.3 mg/dL (8.5-10.1) Magnesium Level 2.1 mg/dL (1.8-2.4) Medications Active Scripts Medications Dose Route/Sig Max Daily Dose Days Date Category Protonix (Pantoprazole Sodium) 20 Mg Tablet.dr 40 Mg PO PRN DAILY PRN 06/22/18 Reported Furosemide 40 Mg Tablet 40 Mg PO DAILY 30 05/23/18 Rx Ultram (Tramadol Hcl) 50 Mg Tablet 50 Mg PO Q6HRS PRN 04/20/18 Reported Duoneb 0.5-3(2.5) Mg/3 Ml (Albuterol/Ipratropium) 3 Ml Ampul.neb 3 Ml NEB QID 04/17/18 Reported Zofran (Ondansetron Hcl) 4 Mg Tablet 1 Tab PO Q8HRS PRN 05/19/16 Rx Atorvastatin Calcium 40 Mg Tablet 40 Mg PO HS 09/24/15 Reported Lisinopril 20 Mg Tablet 20 Mg PO DAILY 09/24/15 Reported Carvedilol 6.25 Mg Tablet 6.25 Mg PO BIDWMEALS 09/24/15 Reported Vitamin D (Cholecalciferol (Vitamin D3)) 2,000 Unit Capsule 2,000 Unit PO BIDAFTMEAL 01/07/15 Reported Aspirin Ec (Aspirin) 325 Mg Tablet.dr 325 Mg PO DAILY 01/07/15 Reported Clopidogrel (Clopidogrel Bisulfate) 75 Mg Tablet 75 Mg PO DAILY 01/07/15 Reported Impression . IMPRESSION: 1. Acute exacerbation of chronic obstructive pulmonary disease. 2. Acute hypoxemic respiratory failure secondary to ischemic cardiomyopathy, acute exacerbation of chronic obstructive pulmonary disease, possibly pulmonary fibrosis. 3. Chest heaviness. 4. Negative venous Doppler of the lower extremities. 5. Low body mass index. 6. S/P PEG IMPRESSION: 1. Cardiomegaly with moderate calcific plaquing of the aorta and coronary arteries. 2. Chronic right upper lobe infiltrate has worsened slightly since 07/05/2016, suggesting a combination of scarring and chronic pneumonitis. 3. Enlarged, calcified right hilar and mediastinal lymph nodes due to old granulomatous disease. 4. New mild left basilar atelectasis and/or pneumonitis. 5. Apparent mural thickening in the mid esophagus may be inflammatory. A neoplastic etiology cannot be excluded. Plan . cont abx cont bronchodilator add ics change solumedrrol to 40 q 8hrs POOR LONGTERM PROGNOSIS 6 min walk bf discharge discussed w pt, rn MONTANA STEPHENS MD Jun 26, 2018 07:49
[2018-06-26] MEDS: DOXYCYCLINE HYCLATE 100 MG TABLET PO SCH ×2 (08:15→21:38)
[2018-06-26] MEDS: FUROSEMIDE 40 MG TABLET. PO SCH (08:16)
[2018-06-26] MEDS: ASPIRIN ENTERIC COATED 325 MG TABLET.DR. PO SCH (08:16)
[2018-06-26] MEDS: PANTOPRAZOLE 40 MG TABLET.DR. PO SCH (08:17)
[2018-06-26] MEDS: BENZONATATE 100 MG CAPSULE. PO SCH ×3 (08:17→21:42)
[2018-06-26] MEDS: CLOPIDOGREL BISULFATE 75 MG TABLET PO SCH (08:18)
[2018-06-26] MEDS: LACTOBACILLUS RHAMNOSUS GG 1 CAPSULE. PO SCH ×2 (08:18→21:38)
[2018-06-26] MEDS: CHOLECALCIFEROL (VITAMIN D3) 1,000 UNIT TABLET PO SCH ×2 (08:19→18:12)
[2018-06-26] MEDS: LISINOPRIL 20 MG TABLET PO SCH (08:20)
[2018-06-26] MEDS: CARVEDILOL 6.25 MG TABLET. PO SCH ×2 (08:21→18:12)
[2018-06-26] MEDS: IPRATRPIUM/ALBUTEROL 0.5/2.5MG 3 ML NEBU. NEB SCH ×4 (08:31→18:04)
[2018-06-26] MEDS: traMADol 50 MG TABLET PO PRN ×3 (08:41→21:39)
[2018-06-26 11:00] VITALS: BP 97/53
--- NOTE | 2018-06-26 11:34 | PDOC ---
PROGRESS NOTES Chief Complaint Chief Complaint Chest heaviness Indwelling pacer A.fib Undernourished-BMI 15.3 Hx bulimia Hypoxic respiratory failure Elevated d-dimer, no DVT on US, neg chest CT Inflammatory changes on chest x-ray Questionable hx COPD History of Present Illness History of Present Illness Some GI issues the last 2 days hence discharge plan of mine, when I saw her 2 days ago was halted some chronic issues for her at home which she manages by herself She's not ready to be on hospice, she tries to take care of herself as much she can She does not want home health, has experienced that before and she claims minimal benefit Pulmonary has not recommended discharge today because of some chest, coughing maybe emesis issues. Plan: Continue supportive care No DC today Vitals Vitals Vital Signs Date Time Temp Pulse Resp B/P (MAP) Pulse Ox O2 Delivery O2 Flow Rate FiO2 06/26/18 11:02 91 Room Air 06/26/18 08:41 2.0 06/26/18 08:21 64 135/80 06/26/18 07:30 97.8 18 97.8 Physical Exam General: Alert, Cooperative, No acute distress, Other (malnourished) Heart: Regular rate, No murmurs Lungs: Wheezing, Crackles Abdomen: Soft, No tenderness Extremities: No cyanosis, No edema Skin: No breakdown, No significant lesion Review of Systems Review of Systems Weak, coughing, minor emesis, the rest of ROS 14 point negative Assessment and Plan Assessmemt and Plan Problems Medical Problems: (1) Acute bronchospasm Status: Acute (2) Acute CHF Status: Acute (3) Hypoxemia Status: Acute Comment Review of Relevant I have reviewed the following items loren (where applicable) has been applied. Medications Current Medications Albuterol/ Ipratropium (Duoneb) 3 ml STK-MED ONCE .ROUTE ; Start 06/22/18 at 02: 37; Stop 06/22/18 at 02:38; Status DC Methylprednisolone Sodium Succinate (SOLU-Medrol 125MG VIAL) 125 mg 1X ONCE IV Last administered on 06/22/18at 03:45; Start 06/22/18 at 02:45; Stop 06/22/18 at 02:46; Status DC Albuterol/ Ipratropium (Duoneb) 3 ml 1X ONCE NEB Last administered on at 02:45; Start 06/22/18 at 02:45; Stop 06/22/18 at 02:46; Status DC Ondansetron HCl (Zofran) 4 mg 1X ONCE IV Last administered on 06/22/18at 03:45 ; Start 06/22/18 at 02:45; Stop 06/22/18 at 02:46; Status DC Ondansetron HCl (Zofran) 4 mg PRN Q8HRS PRN IV NAUSEA/VOMITING; Start 06/22/18 at 04:30; Stop 06/22/18 at 09:02; Status DC Nitroglycerin (Nitrostat) 0.4 mg PRN Q5MIN PRN SL CHEST PAIN; Start 06/22/18 at 04:30; Stop 06/23/18 at 04:29; Status DC Albuterol/ Ipratropium (Duoneb) 3 ml RTQID NEB Last administered on 06/23/18at 15:40; Start 06/22/18 at 08:00; Stop 06/23/18 at 07:59; Status DC Ondansetron HCl (Zofran) 4 mg PRN Q6HRS PRN IV NAUSEA/VOMITING; Start 06/22/18 at 09:15 Benzonatate (Tessalon Perle) 100 mg [id number] PO Last administered on 06/26/18at 08 :17; Start 06/22/18 at 10:00 Acetaminophen (Tylenol) 500 mg PRN Q6HRS PRN PO MILD PAIN / TEMP; Start at 09:00 Acetaminophen/ Codeine Phosphate (Tylenol #3) 1 tab PRN Q6HRS PRN PO MODERATE- SEVERE PAIN 2ND CHOIC; Start 06/22/18 at 09:00 Guaifenesin (Robitussin Dm) 10 ml PRN Q6HRS PRN PO COUGH Last administered on at 17:14; Start 06/22/18 at 09:00 Aspirin (Ecotrin) 325 mg DAILY PO Last administered on 06/26/18at 08:16; Start 06/22/18 at 10:00 Atorvastatin Calcium (Lipitor) 40 mg HS PO Last administered on 06/25/18at 20:45 ; Start 06/22/18 at 21:00 Carvedilol (Coreg) 6.25 mg BIDWMEALS PO Last administered on 06/26/18 08:21; Start 06/22/18 at 10:00 Clopidogrel Bisulfate (Plavix) 75 mg DAILY PO Last administered on 06/26/18 08 :18; Start 06/22/18 at 10:00 Furosemide (Lasix) 40 mg DAILY PO Last administered on 06/26/18 08:16; Start 06/22/18 at 10:00 Lisinopril (Prinivil) 20 mg DAILY PO Last administered on 06/26/18 08:20; Start 06/22/18 at 10:00 Tramadol HCl (Ultram) 50 mg Q6HRS PRN PO MODERATE-SEVERE PAIN 1ST [facility] Last administered on 06/26/18 08:41; Start 06/22/18 at 09:15 Vitamin D (Vitamin D3) 1,000 unit BIDAFTMEAL PO Last administered on 06/26/18 08:19; Start 06/22/18 at 10:00 Ondansetron HCl (Zofran Odt) 8 mg PRN Q8HRS PRN PO NAUSEA/VOMITING Last administered on 06/23/18 08:47; Start 06/22/18 at 10:00 Pantoprazole Sodium (Protonix) 40 mg DAILYAC PO Last administered on 06/26/18 08:17; Start 06/22/18 at 11:30 Iohexol (Omnipaque 300 Mg/ml) 60 ml 1X ONCE IV Last administered on 06/22/18 13:30; Start 06/22/18 at 13:30; Stop 06/22/18 at 13:32; Status DC Info (CONTRAST GIVEN -- Rx MONITORING) 1 each PRN DAILY PRN MC SEE COMMENTS; Start 06/22/18 at 13:45; Stop 06/24/18 at 13:44; Status DC Prednisone (Prednisone) 30 mg DAILY PO Last administered on 06/23/18 08:34; Start 06/22/18 at 15:45; Stop 06/24/18 at 05:41; Status DC Doxycycline Hyclate (Vibra-Tab) 100 mg BID PO Last administered on 06/26/18 08 :15; Start 06/23/18 at 11:30 Albuterol/ Ipratropium (Duoneb) 3 ml 1X ONCE NEB Last administered on at 07:04; Start 06/24/18 at 06:00; Stop 06/24/18 at 06:01; Status DC Methylprednisolone Sodium Succinate (SOLU-Medrol 125MG VIAL) 125 mg DAILY IV Last administered on 06/25/18at 08:30; Start 06/24/18 at 06:00; Stop 06/26/18 at 07:51; Status DC Furosemide (Lasix) 40 mg 1X ONCE IVP Last administered on 06/24/18at 05:50; Start 06/24/18 at 06:00; Stop 06/24/18 at 06:01; Status DC Albuterol/ Ipratropium (Duoneb) 3 ml RTQID NEB Last administered on 06/25/18at 20:00; Start 06/24/18 at 08:00; Stop 06/26/18 at 07:52; Status DC Lorazepam (Ativan) 0.5 mg 1X ONCE PO ; Start 06/24/18 at 06:15; Stop 06/24/18 at 06:16; Status DC Lactobacillus Rhamnosus (Culturelle) 1 cap BID PO Last administered on at 08:18; Start 06/24/18 at 12:00 Lorazepam (Ativan) 0.5 mg PRN Q4HRS PRN IV ANXIETY / AGITATION; Start 06/24/18 at 13:15 Clindamycin Phosphate 50 ml @ 100 mls/hr Q8HRS IV Last administered on at 06:02; Start 06/24/18 at 14:00 Albuterol/ Ipratropium (Duoneb) 3 ml Q4HRS NEB Last administered on 06/26/18at 11:01; Start 06/26/18 at 08:00 Methylprednisolone Sodium Succinate (SOLU-Medrol 40MG VIAL) 40 mg Q8HRS IV ; Start 06/26/18 at 14:00 Active Scripts Active Doxycycline Hyclate 100 Mg Capsule 1 Cap PO BID Furosemide 40 Mg Tablet 40 Mg PO DAILY 30 Days Zofran (Ondansetron Hcl) 4 Mg Tablet 1 Tab PO Q8HRS PRN Reported Protonix (Pantoprazole Sodium) 20 Mg Tablet.dr 40 Mg PO PRN DAILY PRN Ultram (Tramadol Hcl) 50 Mg Tablet 50 Mg PO Q6HRS PRN Duoneb 0.5-3(2.5) Mg/3 Ml (Albuterol/Ipratropium) 3 Ml Ampul.neb 3 Ml NEB QID Atorvastatin Calcium 40 Mg Tablet 40 Mg PO HS Lisinopril 20 Mg Tablet 20 Mg PO DAILY Carvedilol 6.25 Mg Tablet 6.25 Mg PO BIDWMEALS Vitamin D (Cholecalciferol (Vitamin D3)) 2,000 Unit Capsule 2,000 Unit PO BIDAFTMEAL Aspirin Ec (Aspirin) 325 Mg Tablet.dr 325 Mg PO DAILY Clopidogrel (Clopidogrel Bisulfate) 75 Mg Tablet 75 Mg PO DAILY Vitals/I & O Vital Sign - Last 24 Hours 06/25/18 06/25/18 06/25/18 06/25/18 11:39 15:00 15:14 17:26 Pulse 66 66 Resp 18 B/P (MAP) 102/48 (66) 102/48 Pulse Ox 95 98 96 O2 Delivery Nasal Cannula Nasal Cannula Nasal Cannula O2 Flow Rate 2.0 2.0 2.0 06/25/18 06/25/18 06/25/18 06/25/18 19:00 19:37 20:00 20:45 Temp 97.9 97.9 Pulse 74 Resp 17 B/P (MAP) 122/56 (78) Pulse Ox 94 96 96 O2 Delivery Nasal Cannula Nasal Cannula Nasal Cannula Nasal Cannula O2 Flow Rate 2.0 2.0 2.0 2.0 06/25/18 06/25/18 06/26/18 06/26/18 21:45 22:56 03:00 07:30 Temp 96.3 97.9 97.8 96.3 97.9 97.8 Pulse 75 73 64 Resp 18 20 18 B/P (MAP) 117/63 (81) 114/62 (79) 135/80 (98) Pulse Ox 96 96 97 96 O2 Delivery Nasal Cannula Nasal Cannula Nasal Cannula Nasal Cannula O2 Flow Rate 2.0 2.0 2.0 2.0 06/26/18 06/26/18 06/26/18 06/26/18 08:20 08:21 08:33 08:41 Pulse 64 64 B/P (MAP) 135/80 135/80 Pulse Ox 97 O2 Delivery Nasal Cannula Nasal Cannula O2 Flow Rate 2.0 2.0 06/26/18 11:02 Pulse Ox 91 O2 Delivery Room Air Intake and Output 06/25/18 06/25/18 06/26/18 15:00 23:00 07:00 Intake Total 50 ml 380 ml 610 ml Output Total 1 ml Balance 50 ml 380 ml 609 ml Nutrition Consultation Dietary Evaluation: Recommendations by RD: Protein supplementation Comments: REC Osmolite 1.5 bolus 5 x day with 100 ml flushes with each bolus continue diet as tolerated REC Ensure TID ([place]) Expected Outcomes/Goals: to meet > 75% est nutr needs via TF/ po intake - met at times, goal ongoing Malnutrition Findings: Body Fat Depletion (Non Severe: Mod to Severe Weight Status: Underweight MIRANDA MORENO MD Jun 26, 2018 11:34
[2018-06-26] MEDS: methylPREDNISolone SOD SUCC PF 40 MG/ML VIAL. IV SCH ×2 (14:46→21:46)
[2018-06-26 15:30] VITALS: BP 111/62
[2018-06-26 19:00] VITALS: BP 126/76
[2018-06-26] MEDS: ATORVASTATIN CALCIUM 40 MG TABLET. PO SCH (21:39)
[2018-06-26 23:00] VITALS: BP 142/77
[2018-06-27 03:00] VITALS: BP 128/74
[2018-06-27] MEDS: IPRATRPIUM/ALBUTEROL 0.5/2.5MG 3 ML NEBU. NEB SCH ×4 (04:00→12:07)
[2018-06-27] MEDS: CLINDAMYCIN 600MG PREMIX 50 ML IV SCH (05:11)
[2018-06-27] MEDS: methylPREDNISolone SOD SUCC PF 40 MG/ML VIAL. IV SCH (05:11)
[2018-06-27 07:00] VITALS: BP 130/74
--- NOTE | 2018-06-27 07:19 | PDOC ---
PULMONARY PROGRESS NOTES Subjective not on home 02, has cough, sob, no pain, is tired Vitals Vital Signs Date Time Temp Pulse Resp B/P (MAP) Pulse Ox O2 Delivery O2 Flow Rate FiO2 06/27/18 03:00 96.4 67 18 128/74 (92) 97 Nasal Cannula 2.0 96.4 ROS: No Nausea, No Chest Pain, No Abdominal Pain General: Alert, No acute distress HEENT: Other (nc at perrl nose throat clear) Lungs: Wheezing, Crackles Cardiovascular: S1, S2 Abdomen: Soft, Non-tender Neuro Exam: Alert Extremities: No Edema Skin: Warm Medications Active Scripts Medications Dose Route/Sig Max Daily Dose Days Date Category Protonix (Pantoprazole Sodium) 20 Mg Tablet.dr 40 Mg PO PRN DAILY PRN 06/22/18 Reported Furosemide 40 Mg Tablet 40 Mg PO DAILY 30 05/23/18 Rx Ultram (Tramadol Hcl) 50 Mg Tablet 50 Mg PO Q6HRS PRN 04/20/18 Reported Duoneb 0.5-3(2.5) Mg/3 Ml (Albuterol/Ipratropium) 3 Ml Ampul.neb 3 Ml NEB QID 04/17/18 Reported Zofran (Ondansetron Hcl) 4 Mg Tablet 1 Tab PO Q8HRS PRN 05/19/16 Rx Atorvastatin Calcium 40 Mg Tablet 40 Mg PO HS 09/24/15 Reported Lisinopril 20 Mg Tablet 20 Mg PO DAILY 09/24/15 Reported Carvedilol 6.25 Mg Tablet 6.25 Mg PO BIDWMEALS 09/24/15 Reported Vitamin D (Cholecalciferol (Vitamin D3)) 2,000 Unit Capsule 2,000 Unit PO BIDAFTMEAL 01/07/15 Reported Aspirin Ec (Aspirin) 325 Mg Tablet.dr 325 Mg PO DAILY 01/07/15 Reported Clopidogrel (Clopidogrel Bisulfate) 75 Mg Tablet 75 Mg PO DAILY 01/07/15 Reported Impression . IMPRESSION: 1. Acute exacerbation of chronic obstructive pulmonary disease . 2. Acute hypoxemic respiratory failure secondary to ischemic cardiomyopathy, acute exacerbation of chronic obstructive pulmonary disease, acute sys chf vs others 3. Chest heaviness. 4. Negative venous Doppler of the lower extremities. 5. Low body mass index. 6. S/P PEG IMPRESSION: 1. Cardiomegaly with moderate calcific plaquing of the aorta and coronary arteries. 2. Chronic right upper lobe infiltrate has worsened slightly since 07/05/2016, suggesting a combination of scarring and chronic pneumonitis. 3. Enlarged, calcified right hilar and mediastinal lymph nodes due to old granulomatous disease. 4. New mild left basilar atelectasis and/or pneumonitis. 5. Apparent mural thickening in the mid esophagus may be inflammatory. A neoplastic etiology cannot be excluded. Plan . cont abx for total of 7 days cont bronchodilator ics change solumedrrol to prednisone 40 mg daily w taper by 10 mg q 3d add singulair keep I<O POOR ALF PROGNOSIS 6 min walk bf discharge discussed w pt, rn, [place] Mari MD Jun 27, 2018 07:19
[2018-06-27] MEDS: CLOPIDOGREL BISULFATE 75 MG TABLET PO SCH (08:50)
[2018-06-27] MEDS: traMADol 50 MG TABLET PO PRN (08:52)
[2018-06-27] MEDS: LACTOBACILLUS RHAMNOSUS GG 1 CAPSULE. PO SCH (08:52)
[2018-06-27] MEDS: LISINOPRIL 20 MG TABLET PO SCH (08:54)
[2018-06-27] MEDS: CHOLECALCIFEROL (VITAMIN D3) 1,000 UNIT TABLET PO SCH (08:54)
[2018-06-27] MEDS: ASPIRIN ENTERIC COATED 325 MG TABLET.DR. PO SCH (08:55)
[2018-06-27] MEDS: DOXYCYCLINE HYCLATE 100 MG TABLET PO SCH (08:55)
[2018-06-27] MEDS: PANTOPRAZOLE 40 MG TABLET.DR. PO SCH (08:55)
[2018-06-27] MEDS: BENZONATATE 100 MG CAPSULE. PO SCH (08:55)
[2018-06-27] MEDS: CARVEDILOL 6.25 MG TABLET. PO SCH (08:56)
[2018-06-27] MEDS: FUROSEMIDE 40 MG TABLET. PO SCH (08:56)
[2018-06-27] MEDS ORDERED: predniSONE 20 MG TABLET PO SCH (09:00)
[2018-06-27 11:00] VITALS: BP 131/71
--- NOTE | 2018-06-27 11:29 | PDOC3 ---
Discharge Summary Visit Information Date of Admission: Jun 22, 2018 Date of Discharge: Jun 27, 2018 Admitting Diagnosis Comment: Chest heaviness Indwelling pacer A.fib Undernourished-BMI 15.3 Hx bulimia Hypoxic respiratory failure Elevated d-dimer, no DVT on US, neg chest CT Inflammatory changes on chest x-ray Questionable hx COPD Final Diagnosis Problems Medical Problems: (1) Acute bronchospasm Status: Acute (2) Acute CHF Status: Acute (3) Hypoxemia Status: Acute Brief Hospital Course Allergies Allergies Coded Allergies Type Severity Reaction Last Updated Verified Penicillins Allergy Intermediate hives 08/03/16 Yes Sulfa (Sulfonamide Antibiotics) Allergy Intermediate hives 08/03/16 Yes Vital Signs Vital Signs Date Time Temp Pulse Resp B/P (MAP) Pulse Ox O2 Delivery O2 Flow Rate FiO2 06/27/18 08:56 80 130/74 06/27/18 08:52 Nasal Cannula 2.0 06/27/18 08:03 93 06/27/18 07:00 98.0 22 98.0 Brief Hospital Course Ms. Mcduffie is a 73 old female, skin and bones, cachectic with a BMI 16 from multiple comorbidities namely below Chest heaviness Indwelling pacer A.fib Undernourished-BMI 15.3 Hx bulimia Hypoxic respiratory failure Elevated d-dimer, no DVT on US, neg chest CT Inflammatory changes on chest x-ray Questionable hx COPD comes in because of chest heaviness, known history A. fib indwelling pacer. Cards had no further recs. She is very cachectic history of bulimia. Indwelling PEG because of severe malnutrition, poor by mouth. Has had trial of Megace and marinol before but to no avail. Not interested in hospice, other services has recommend hospice. In any case she knows what to do, she feeds herself with tube feeds 10 cans in a day. Otherwise stable to go home today with no PT needs and no new meds except for doxycycline 100 by mouth twice a day for 7 days Consults performed pulmonary, cardiology Procedure performed none just tube feeds Discharge Information Condition at Discharge: Improved, Stable Disposition/Orders: D/C to Home Scheduled Aspirin (Aspirin Ec) 325 Mg Tablet.dr 325 MG PO DAILY, (Reported) Entered as Reported by: Hanane Benton on 01/07/152130 Last Action: Continued on 06/22/18901 by MIRANDA TERMULO Atorvastatin Calcium (Atorvastatin Calcium) 40 Mg Tablet, 40 MG PO HS for FOR CHOLESTEROL, #30 Ref 0 (Reported) Entered as Reported by: ALPHONSE GUTIERREZ RPH on 09/24/151647 Last Action: Continued on 06/22/18901 by MIRANDA MORENO Carvedilol (Carvedilol) 6.25 Mg Tablet, 6.25 MG PO BIDWMEALS, (Reported) Entered as Reported by: ALPHONSE GUTIERREZ RPH on 09/24/151647 Last Action: Continued on 06/22/18901 by MIRANDA MORENO Cholecalciferol (Vitamin D3) (Vitamin D) 2,000 Unit Capsule, 2,000 UNIT PO BIDAFTMEAL, (Reported) Entered as Reported by: Hanane Benton on 01/07/152130 Last Action: Converted on 06/22/18901 by MIRANDA MORENO Clopidogrel Bisulfate (Clopidogrel) 75 Mg Tablet, 75 MG PO DAILY for TO PREVENT BLOOD CLOTS, #30 Ref 0 (Reported) Entered as Reported by: Hanane Benton on 01/07/152130 Last Action: Continued on 06/22/18901 by MIRANDA MORENO Doxycycline Hyclate (Doxycycline Hyclate) 100 Mg Capsule, 1 CAP PO BID, #14 Prescribed by: MIRANDA MORENO on 06/23/18 1126 Furosemide (Furosemide) 40 Mg Tablet, 40 MG PO DAILY for 30 Days, #30 Prescribed by: ALFRED CASTORENA MD on 05/23/18 1133 Last Action: Continued on 06/22/18901 by MIRANDA MORENO Ipratropium/Albuterol Sulfate (Duoneb 0.5-3(2.5) Mg/3 Ml) 3 Ml Ampul.neb, 3 ML NEB QID, (Reported) Entered as Reported by: RENE JUAN on 04/17/18949 Last Action: Reviewed on 06/22/18901 by MIRANDA MORENO Lisinopril (Lisinopril) 20 Mg Tablet, 20 MG PO DAILY for FOR HYPERTENSION, #30 Ref 0 (Reported) Entered as Reported by: ALPHONSE GUTIERREZ RPH on 09/24/151647 Last Action: Continued on 06/22/18901 by MIRANDA MORENO Scheduled PRN Ondansetron Hcl (Zofran) 4 Mg Tablet, 1 TAB PO Q8HRS PRN for NAUSEA, #20 Prescribed by: KATIANA QUIROS D.O. on 05/19/16 1333 Last Action: Converted on 06/22/18901 by MIRANDA MORENO Pantoprazole Sodium (Protonix) 20 Mg Tablet.dr, 40 MG PO PRN DAILY PRN for HEARTBURN / GAS, (Reported) Entered as Reported by: ILANA MONTANEZ on 06/22/18614 Last Action: Converted on 06/22/18901 by MIRANDA MORENO Tramadol Hcl (Ultram) 50 Mg Tablet, 50 MG PO Q6HRS PRN for PAIN, Ref 0 (Reported ) Entered as Reported by: Braydon Arriaga on 04/20/18 1625 Last Action: Continued on 06/22/18901 by MIRANDA MORENO Discontinued Medications Gabapentin (Gabapentin) 300 Mg Capsule, 300 MG PO BID, (Reported) Entered as Reported by: Hanane Benton on 01/07/151 Last Action: Discontinued on 06/22/18614 by MIRANDA ARCEO MD Jun 27, 2018 11:29
[2018-06-27] MEDS ORDERED: MONTELUKAST SODIUM 10 MG TABLET. PO SCH (21:00)
== END 2018-06-27 14:45 | disposition home or self-care (01) | DRG 291 ==
LOC: ER 02:30 → 5 SOUTH 04:21 → 1 WEST ICU 06-24 06:33 → 5 NORTH 06-24 12:47
PROVIDERS: ADMIT Internal Medicine; ATTEND Internal Medicine
PROC: 5A09357 Assistance with Respiratory Ventilation, Less than 24 Consecutive Hours, Continuous Positive Airway Pressure (ICD-10-PCS; principal; 2018-06-24)
DX: I11.0 Hypertensive heart disease with heart failure (principal); J96.01 Acute respiratory failure with hypoxia; E43 Unspecified severe protein-calorie malnutrition; J44.1 Chronic obstructive pulmonary disease with (acute) exacerbation; R64 Cachexia; E46 Unspecified protein-calorie malnutrition; Z68.1 Body mass index [BMI] 19.9 or less, adult; I48.91 Unspecified atrial fibrillation; I50.23 Acute on chronic systolic (congestive) heart failure; I25.10 Atherosclerotic heart disease of native coronary artery without angina pectoris; E78.5 Hyperlipidemia, unspecified; K21.9 Gastro-esophageal reflux disease without esophagitis; I34.0 Nonrheumatic mitral (valve) insufficiency; I44.7 Left bundle-branch block, unspecified; I25.5 Ischemic cardiomyopathy; F17.210 Nicotine dependence, cigarettes, uncomplicated; Z82.3 Family history of stroke; Z86.59 Personal history of other mental and behavioral disorders; Z93.1 Gastrostomy status; Z90.710 Acquired absence of both cervix and uterus; Z90.49 Acquired absence of other specified parts of digestive tract; Z79.01 Long term (current) use of anticoagulants; Z82.49 Family history of ischemic heart disease and other diseases of the circulatory system; Z95.810 Presence of automatic (implantable) cardiac defibrillator; Z88.0 Allergy status to penicillin; Z88.2 Allergy status to sulfonamides; I25.2 Old myocardial infarction; Z95.5 Presence of coronary angioplasty implant and graft
CPT/HCPCS: 36415; 36600; 71045; 71260; 80048; 80053; 82805; 83690; 83735; 83880; 84484; 85025; 85027; 85379; 87641; 93005; 93970; 94618; 94640; 94660; 94667; 94760; 96374; 96375; J1940; J2405; J2920; J2930; J3490; J7512; J7620; Q0162; Q9967; 99285-25

== ENCOUNTER 2018-08-04 01:44 | Inpatient (IN) | payer OTHER ==
[~2018-08-04] VITALS: Ht 170.2 cm; Wt 49.0 kg
[~2018-08-04 01:44] MED LIST changes: +DOXY100C2 PO; +PANT20TA2 PO
[2018-08-04] MEDS ORDERED: IPRATRPIUM/ALBUTEROL 0.5/2.5MG 3 ML NEBU. NEB ONE (02:00)
[2018-08-04 02:09] LABS: BASO % 0 % (0-3); EOS # 0.5 x10^3/uL (0.0-0.7); EOS % 9 % (0-3); HEMOGLOBIN 14.6 g/dL (12.0-15.5); LYMPH # 1.8 x10^3/uL (1.0-4.8); LYMPH % 29 % (24-48); MEAN CORPUSCULAR HEMOGLOBIN 31 pg (25-35); MEAN CORPUSCULAR HGB CONC 34 g/dL (31-37); MEAN CORPUSCULAR VOLUME 90 fL (79-100); MONO # 0.5 x10^3/uL (0.0-1.1); MONO % 9 % (0-9); NEUT # 3.3 x10^3uL (1.8-7.7); NEUT % 54 % (31-73); PLATELET COUNT 202 x10^3/uL (140-400); RED BLOOD COUNT 4.78 x10^6/uL (3.50-5.40); RED CELL DISTRIBUTION WIDTH 14.3 % (11.5-14.5); WHITE BLOOD COUNT 6.2 x10^3/uL (4.0-11.0)
[2018-08-04] MEDS ORDERED: ONDANSETRON PF 4 MG/2 ML VIAL. IV ONE (02:15)
[2018-08-04 02:18] LABS: CALCIUM 10.4 mg/dL (8.5-10.1); GFR 65.6; POTASSIUM 3.9 mmol/L (3.5-5.1); PROTHROMBIN TIME PATIENT 14.4 SEC (11.7-14.0)
[2018-08-04] MEDS ORDERED: ONDANSETRON PF 4 MG/2 ML VIAL. IV PRN (02:45)
[2018-08-04] MEDS ORDERED: predniSONE 10 MG TABLET PO ONE (02:45)
[2018-08-04] MEDS ORDERED: IPRATRPIUM/ALBUTEROL 0.5/2.5MG 3 ML NEBU. NEB PRN (02:45)
[2018-08-04] MEDS ORDERED: ACETAMINOPHEN 325 MG TABLET. PO PRN (02:45)
--- NOTE | 2018-08-04 02:48 | PHYS DOC ---
Past Medical History Past Medical History: CAD, COPD, Hypertension, [place], Other Additional Past Medical Histor: patient is a pacemaker she is on Coumadin Past Surgical History: Appendectomy, Hysterectomy, Pacemaker, Other Additional Past Surgical Histo: cardiac stents; defibrilator, PEG TUBE FOR CHRONIC VOMITING Alcohol Use: None Drug Use: None Adult General Chief Complaint Chief Complaint: SHORTNESS OF BREATH HPI HPI Patient is a 73 year old female who presents with dyspnea. Ms. Mcduffie is a very pleasant 73-year-old female with a known history of COPD and congestive heart failure who presents to the ER with acute dyspnea. The patient states she has ongoing shortness of breath at baseline. This evening, she became acutely short of breath causing her to call EMS. On arrival to the ER, the patient is in significant distress with increased work of breathing. She does have wheezes bilaterally in all alvarez with diminished airflow and prolonged expiratory phase. The patient states she has not had a fever or chills. She has had a cough that she states has been mildly worse than normal. She does have sputum production which she describes to be at baseline. Her last admission was approximately one month earlier. The patient does not use oxygen at home. She denies chest pain. Review of Systems Review of Systems Constitutional: Denies fever or chills Eyes: Denies change in visual acuity HENT: Denies nasal congestion Respiratory: as documented above Cardiovascular: No additional information not addressed in HPI GI: Denies abdominal pain, nausea : Denies dysuria Musculoskeletal: Denies back pain Integument: Denies rash or skin lesions Neurologic: Denies headache All other systems were reviewed and found to be within normal limits, except as documented in this note. Current Medications Current Medications Current Medications Medications (Trade) Dose Ordered Sig/Lisandra Start Time Stop Time Status Last Admin Dose Admin Acetaminophen (Tylenol) 650 mg PRN Q4HRS PRN 08/04/18 02:45 08/05/18 02:44 UNV Albuterol/ Ipratropium (Duoneb) 3 ml 1X ONCE 08/04/18 02:00 08/04/18 02:01 DC 08/04/18 02:08 3 ML Ondansetron HCl (Zofran) 4 mg PRN Q8HRS PRN 08/04/18 02:45 08/05/18 02:44 UNV Allergies Allergies Allergies Coded Allergies Type Severity Reaction Last Updated Verified Penicillins Allergy Intermediate hives 08/03/16 Yes Sulfa (Sulfonamide Antibiotics) Allergy Intermediate hives 08/03/16 Yes Physical Exam Physical Exam Constitutional: Frail, chronically ill appearing elderly female in acute respiratory distress HENT: Normocephalic, atraumatic, bilateral external ears normal, oropharynx moist Eyes: PERRLA, EOMI Neck: Normal range of motion, Cardiovascular:Heart rate regular rhythm, no murmur Lungs & Thorax: wheezes bilaterally with diminished air mvt Abdomen: Bowel sounds normal, soft, no tenderness, no masses Skin: Warm, dry, no erythema, no rash Extremities: No edema Neurologic: Alert and oriented X 3 Psychologic: Affect normal Current Patient Data Vital Signs Vital Signs Date Time Temp Pulse Resp B/P (MAP) Pulse Ox O2 Delivery O2 Flow Rate FiO2 08/04/18 02:00 99 BiPAP/CPAP 08/04/18 01:54 98.4 88 30 141/91 (108) 98.4 Lab Values Laboratory Tests Test 08/04/18 01:56 White Blood Count 6.2 x10^3/uL (4.0-11.0) Red Blood Count 4.78 x10^6/uL (3.50-5.40) Hemoglobin 14.6 g/dL (12.0-15.5) Hematocrit 43.0 % (36.0-47.0) Mean Corpuscular Volume 90 fL (79-100) Mean Corpuscular Hemoglobin 31 pg (25-35) Mean Corpuscular Hemoglobin Concent 34 g/dL (31-37) Red Cell Distribution Width 14.3 % (11.5-14.5) Platelet Count 202 x10^3/uL (140-400) Neutrophils (%) (Auto) 54 % (31-73) Lymphocytes (%) (Auto) 29 % (24-48) Monocytes (%) (Auto) 9 % (0-9) Eosinophils (%) (Auto) 9 % (0-3) H Basophils (%) (Auto) 0 % (0-3) Neutrophils # (Auto) 3.3 x10^3uL (1.8-7.7) Lymphocytes # (Auto) 1.8 x10^3/uL (1.0-4.8) Monocytes # (Auto) 0.5 x10^3/uL (0.0-1.1) Eosinophils # (Auto) 0.5 x10^3/uL (0.0-0.7) Basophils # (Auto) 0.0 x10^3/uL (0.0-0.2) Prothrombin Time 14.4 SEC (11.7-14.0) H Prothrombin Time INR 1.2 (0.8-1.1) H PTT 35 SEC (24-38) Sodium Level 141 mmol/L (136-145) Potassium Level 3.9 mmol/L (3.5-5.1) Chloride Level 103 mmol/L (98-107) Carbon Dioxide Level 32 mmol/L (21-32) Anion Gap 6 (6-14) Blood Urea Nitrogen 23 mg/dL (7-20) H Creatinine 1.0 mg/dL (0.6-1.0) Estimated GFR (Cockcroft-Gault) 65.6 Glucose Level 98 mg/dL (70-99) Calcium Level 10.4 mg/dL (8.5-10.1) H Troponin I Quantitative < 0.017 ng/mL (0.000-0.055) JT-Uwl-G-Type Natriuretic Peptide 2029 pg/mL (0-124) H Laboratory Tests 08/04/18 01:56 Laboratory Tests 08/04/18 01:56 EKG EKG No STEMI Interpretation Time: 01:55 Radiology/Procedures Radiology/Procedures CXR: no significant change from prior. Course & Med Decision Making Course & Med Decision Making Pertinent Labs and Imaging studies reviewed. (See chart for details) Patient is evaluated immediately on arrival. She has significant respiratory distress. Respiratory therapy is called to the room. A DuoNeb treatment is started immediately. The patient is placed on BiPAP. Despite her distress, the patient has O2 saturations above 90%. She states this is normal, even when she is having exacerbation. Chest x-ray does not appear significantly changed from prior. Nonetheless, the patient will be treated for COPD exacerbation in the emergency department. The patient improved dramatically after a single DuoNeb treatment and about 30 minutes on BiPAP. After this, she is taken off BiPAP and placed on oxygen. Her room air saturation is 93%. On 3 L of oxygen per nasal cannula, her saturation improved to 97%. The patient feels subjectively much improved. She is given by mouth Levaquin and prednisone in the emergency department. Plan is for admission to the hospital for close observation. The patient is followed by pulmonary and cardiology at this facility. Her EKG is not. Acute and her troponin is not elevated. She has schedule appointments with Dr. Espino later this week. Consults are placed for cardiology and pulmonology to see the patient. Patient is agreeable to the admission plan of care. Dragon Disclaimer Dragon Disclaimer This electronic medical record was generated, in whole or in part, using a voice recognition dictation system. Departure Departure Impression: Primary Impression: COPD (chronic obstructive pulmonary disease) Additional Impression: CHF (congestive heart failure) Disposition: ADMITTED INPATIENT Condition: IMPROVED Problem Qualifiers MARIANGEL TATUM DO Aug 04, 2018 02:48
[2018-08-04 03:15] VITALS: BP 146/61
--- NOTE | 2018-08-04 06:16 | EKG ---
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
[2018-08-04 07:00] VITALS: BP 131/78
[2018-08-04] MEDS: ALBUTEROL SULFATE 2.5 MG/3 ML NEBU. NEB PRN (07:20)
[2018-08-04] MEDS: IPRATRPIUM/ALBUTEROL 0.5/2.5MG 3 ML NEBU. NEB SCH ×4 (08:41→20:13)
[2018-08-04] MEDS ORDERED: guaiFENesin DM 200MG/20MG 10 ML SYRUP PO PRN ×2 (08:45)
[2018-08-04] MEDS ORDERED: ONDANSETRON ODT 4 MG TAB.RAPDIS. PO PRN (08:45)
[2018-08-04] MEDS: FUROSEMIDE 40 MG TABLET. PO SCH (09:25)
[2018-08-04] MEDS: CARVEDILOL 6.25 MG TABLET. PO SCH ×2 (09:25→17:50)
[2018-08-04] MEDS: CLOPIDOGREL BISULFATE 75 MG TABLET PO SCH (09:26)
[2018-08-04] MEDS: ASPIRIN ENTERIC COATED 325 MG TABLET.DR. PO SCH (09:26)
[2018-08-04] MEDS: CHOLECALCIFEROL (VITAMIN D3) 1,000 UNIT TABLET PO SCH ×2 (09:26→17:49)
[2018-08-04] MEDS: LISINOPRIL 20 MG TABLET PO SCH (09:26)
[2018-08-04] MEDS: ONDANSETRON PF 4 MG/2 ML VIAL. IV PRN (10:21)
--- NOTE | 2018-08-04 10:57 | PDOC1 ---
History and Physical Date of Admission Date of Admission DATE: 08/04/18 TIME: 10:47 Identification/Chief Complaint Chief Complaint S OA Source Source: Caregiver, Chart review, Patient History of Present Illness History of Present Illness Patient is a 73-year-old -[place] female known to me as I last admitted her June 22 and with the following diagnoses: Chest heaviness Indwelling pacer A.fib Undernourished-BMI 15.3 Hx bulimia Hypoxic respiratory failure Elevated d-dimer, no DVT on US, neg chest CT Inflammatory changes on chest x-ray Questionable hx COPD SHe is very undernourished with a BMI of 15.6. She feeds herself at home with TFs. She's not ready for hospice or palliative. She comes in because of severe SOA and is still SOA at bedrest and talking short phrases to me. Labs show a BNP of 2000, calcium of 10.4 maybe some slight dehydration. She does take Lasix 40 once a day. CXR is still pending Admitted with pulmo and cards consulted Past Medical History Cardiovascular: CAD, CHF, HTN, Syncope, Hyperlipidemia Pulmonary: COPD CENTRAL NERVOUS SYSTEM: Other GI: No pertinent hx, Other Heme/Onc: No pertinent hx Hepatobiliary: No pertinent hx Psych: No pertinent hx Musculoskeletal: Other Rheumatologic: No pertinent hx Infectious disease: No pertinent hx Renal/: UTI Endocrine: No pertinent hx Past Surgical History Past Surgical History: Pacemaker, Appendectomy, Hysterectomy, Other Family History Family History: Coronary Artery Disease Social History Smoke: No ALCOHOL: none Drugs: Marijuana Current Problem List Problem List Problems Medical Problems: (1) CHF (congestive heart failure) Status: Acute (2) COPD (chronic obstructive pulmonary disease) Status: Acute Current Medications Current Medications Current Medications Albuterol/ Ipratropium (Duoneb) 3 ml 1X ONCE NEB Last administered on at 02:08; Start 08/04/18 at 02:00; Stop 08/04/18 at 02:01; Status DC Ondansetron HCl (Zofran) 4 mg 1X ONCE IV Last administered on 08/04/18at 02:18 ; Start 08/04/18 at 02:15; Stop 08/04/18 at 02:20; Status DC Ondansetron HCl (Zofran) 4 mg PRN Q8HRS PRN IV NAUSEA/VOMITING; Start at 02:45; Stop 08/04/18 at 08:33; Status DC Acetaminophen (Tylenol) 650 mg PRN Q4HRS PRN PO FEVER; Start 08/04/18 at 02:45 ; Stop 08/05/18 at 02:44 Prednisone (Prednisone) 50 mg 1X ONCE PO Last administered on 08/04/18at 02:57 ; Start 08/04/18 at 02:45; Stop 08/04/18 at 02:46; Status DC Levofloxacin (Levaquin) 500 mg 1X ONCE PO Last administered on 08/04/18at 02: 58; Start 08/04/18 at 02:45; Stop 08/04/18 at 02:46; Status DC Albuterol/ Ipratropium (Duoneb) 3 ml PRN Q4HRS PRN NEB dyspnea or wheezing.; Start 08/04/18 at 02:45; Stop 08/04/18 at 02:45; Status DC Albuterol Sulfate (Ventolin Neb Soln) 2.5 mg PRN Q4HRS PRN NEB dyspnea or wheezing. Last administered on 08/04/18at 07:20; Start 08/04/18 at 02:45 Influenza Virus Vaccine (Afluria Trivalent [id number] Syringe) 0.5 ml ONCE ONCE VAX IM Last administered on 08/04/18at 09:31; Start 08/04/18 at 09:00; Stop 08/04/18 at 09:01; Status DC Ondansetron HCl (Zofran) 4 mg PRN Q6HRS PRN IV NAUSEA/VOMITING Last administered on 08/04/18at 10:21; Start 08/04/18 at 08:45 Albuterol/ Ipratropium (Duoneb) 3 ml RTQID NEB ; Start 08/04/18 at 09:00 Guaifenesin (Robitussin Dm) 10 ml PRN Q6HRS PRN PO COUGH; Start 08/04/18 at 08 :45 Aspirin (Ecotrin) 325 mg DAILY PO Last administered on 08/04/18at 09:26; Start 08/04/18 at 09:00 Atorvastatin Calcium (Lipitor) 40 mg HS PO ; Start 08/04/18 at 21:00 Carvedilol (Coreg) 6.25 mg BIDWMEALS PO Last administered on 08/04/18 09:25; Start 08/04/18 at 09:00 Clopidogrel Bisulfate (Plavix) 75 mg DAILY PO Last administered on 08/04/18at 09:26; Start 08/04/18 at 09:00 Furosemide (Lasix) 40 mg DAILY PO Last administered on 08/04/18at 09:25; Start 08/04/18 at 09:00 Lisinopril (Prinivil) 20 mg DAILY PO Last administered on 08/04/18at 09:26; Start 08/04/18 at 09:00 Tramadol HCl (Ultram) 50 mg PRN Q6HRS PRN PO PAIN; Start 08/04/18 at 08:45 Vitamin D (Vitamin D3) 2,000 unit BIDAFTMEAL PO Last administered on 09:26; Start 08/04/18 at 09:00 Ondansetron HCl (Zofran Odt) 4 mg PRN Q8HRS PRN PO NAUSEA/VOMITING; Start at 08:45 Pantoprazole Sodium (Protonix) 40 mg PRN DAILY PRN PO HEARBURN/GAS; Start at 07:30 Guaifenesin (Robitussin Dm) 10 ml PRN Q6HRS PRN PO COUGH; Start 08/04/18 at 08 :45; Status UNV Active Scripts Active Doxycycline Hyclate 100 Mg Capsule 1 Cap PO BID Furosemide 40 Mg Tablet 40 Mg PO DAILY 30 Days Zofran (Ondansetron Hcl) 4 Mg Tablet 1 Tab PO Q8HRS PRN Reported Protonix (Pantoprazole Sodium) 20 Mg Tablet.dr 40 Mg PO PRN DAILY PRN Ultram (Tramadol Hcl) 50 Mg Tablet 50 Mg PO Q6HRS PRN Duoneb 0.5-3(2.5) Mg/3 Ml (Albuterol/Ipratropium) 3 Ml Ampul.neb 3 Ml NEB QID Atorvastatin Calcium 40 Mg Tablet 40 Mg PO HS Lisinopril 20 Mg Tablet 20 Mg PO DAILY Carvedilol 6.25 Mg Tablet 6.25 Mg PO BIDWMEALS Vitamin D (Cholecalciferol (Vitamin D3)) 2,000 Unit Capsule 2,000 Unit PO BIDAFTMEAL Aspirin Ec (Aspirin) 325 Mg Tablet.dr 325 Mg PO DAILY Clopidogrel (Clopidogrel Bisulfate) 75 Mg Tablet 75 Mg PO DAILY Allergies Allergies: Coded Allergies: Penicillins (Verified Allergy, Intermediate, hives, 08/03/16) Sulfa (Sulfonamide Antibiotics) (Verified Allergy, Intermediate, hives, ) ROS Review of System Weak, SOA, fatigue, no chest pain, no abdominal pain, poor appetite, Physical Exam General: Oriented X3, Cooperative, mild distress, Other (very weak looking, cachectic) Heart: S1S2, no thrills, no rubs, no gallops, no murmurs, other (sinus tachycardia, heart rate 90s) Cardiovascular: S1 Breasts: Normal, Rt breast nml w/o mass, Lt breast nml w/o mass, Nipples normal Abdomen: Normal bowel sounds, Soft, No tenderness, Other (PEG tube) Rectal Exam: not examined PELVIC: Nml ext genitalia Extremities: No clubbing, No cyanosis, No edema, Normal pulses, No tenderness/ swelling Skin: No breakdown, Other (minimal SQ tissue, cachectic looking) Neuro: Normal gait, Normal speech, Strength at 5/5 X4 ext, Normal tone, Sensation intact, Cranial nerves 3-12 NL, Reflexes 2+ Psych/Mental Status: Mental status NL, Mood NL Vitals Vitals Vital Signs Date Time Temp Pulse Resp B/P (MAP) Pulse Ox O2 Delivery O2 Flow Rate FiO2 08/04/18 09:26 88 131/78 08/04/18 07:24 94 Room Air 08/04/18 07:00 98.8 18 98.8 08/04/18 03:15 2.0 Labs Labs Laboratory Tests Test 08/04/18 01:56 08/04/18 05:25 08/04/18 08:15 White Blood Count 6.2 x10^3/uL (4.0-11.0) Red Blood Count 4.78 x10^6/uL (3.50-5.40) Hemoglobin 14.6 g/dL (12.0-15.5) Hematocrit 43.0 % (36.0-47.0) Mean Corpuscular Volume 90 fL (79-100) Mean Corpuscular Hemoglobin 31 pg (25-35) Mean Corpuscular Hemoglobin Concent 34 g/dL (31-37) Red Cell Distribution Width 14.3 % (11.5-14.5) Platelet Count 202 x10^3/uL (140-400) Neutrophils (%) (Auto) 54 % (31-73) Lymphocytes (%) (Auto) 29 % (24-48) Monocytes (%) (Auto) 9 % (0-9) Eosinophils (%) (Auto) 9 % (0-3) Basophils (%) (Auto) 0 % (0-3) Neutrophils # (Auto) 3.3 x10^3uL (1.8-7.7) Lymphocytes # (Auto) 1.8 x10^3/uL (1.0-4.8) Monocytes # (Auto) 0.5 x10^3/uL (0.0-1.1) Eosinophils # (Auto) 0.5 x10^3/uL (0.0-0.7) Basophils # (Auto) 0.0 x10^3/uL (0.0-0.2) Prothrombin Time 14.4 SEC (11.7-14.0) Prothromb Time International Ratio 1.2 (0.8-1.1) Activated Partial Thromboplast Time 35 SEC (24-38) Sodium Level 141 mmol/L (136-145) Potassium Level 3.9 mmol/L (3.5-5.1) Chloride Level 103 mmol/L (98-107) Carbon Dioxide Level 32 mmol/L (21-32) Anion Gap 6 (6-14) Blood Urea Nitrogen 23 mg/dL (7-20) Creatinine 1.0 mg/dL (0.6-1.0) Estimated GFR (Cockcroft-Gault) 65.6 Glucose Level 98 mg/dL (70-99) Calcium Level 10.4 mg/dL (8.5-10.1) Troponin I Quantitative < 0.017 ng/mL (0.000-0.055) 0.020 ng/mL (0.000-0.055) < 0.017 ng/mL (0.000-0.055) IP-Rvn-A-Type Natriuretic Peptide 2029 pg/mL (0-124) Laboratory Tests Test 08/04/18 01:56 08/04/18 05:25 08/04/18 08:15 White Blood Count 6.2 x10^3/uL (4.0-11.0) Red Blood Count 4.78 x10^6/uL (3.50-5.40) Hemoglobin 14.6 g/dL (12.0-15.5) Hematocrit 43.0 % (36.0-47.0) Mean Corpuscular Volume 90 fL (79-100) Mean Corpuscular Hemoglobin 31 pg (25-35) Mean Corpuscular Hemoglobin Concent 34 g/dL (31-37) Red Cell Distribution Width 14.3 % (11.5-14.5) Platelet Count 202 x10^3/uL (140-400) Neutrophils (%) (Auto) 54 % (31-73) Lymphocytes (%) (Auto) 29 % (24-48) Monocytes (%) (Auto) 9 % (0-9) Eosinophils (%) (Auto) 9 % (0-3) Basophils (%) (Auto) 0 % (0-3) Neutrophils # (Auto) 3.3 x10^3uL (1.8-7.7) Lymphocytes # (Auto) 1.8 x10^3/uL (1.0-4.8) Monocytes # (Auto) 0.5 x10^3/uL (0.0-1.1) Eosinophils # (Auto) 0.5 x10^3/uL (0.0-0.7) Basophils # (Auto) 0.0 x10^3/uL (0.0-0.2) Prothrombin Time 14.4 SEC (11.7-14.0) Prothromb Time International Ratio 1.2 (0.8-1.1) Activated Partial Thromboplast Time 35 SEC (24-38) Sodium Level 141 mmol/L (136-145) Potassium Level 3.9 mmol/L (3.5-5.1) Chloride Level 103 mmol/L (98-107) Carbon Dioxide Level 32 mmol/L (21-32) Anion Gap 6 (6-14) Blood Urea Nitrogen 23 mg/dL (7-20) Creatinine 1.0 mg/dL (0.6-1.0) Estimated GFR (Cockcroft-Gault) 65.6 Glucose Level 98 mg/dL (70-99) Calcium Level 10.4 mg/dL (8.5-10.1) Troponin I Quantitative < 0.017 ng/mL (0.000-0.055) 0.020 ng/mL (0.000-0.055) < 0.017 ng/mL (0.000-0.055) TU-Wop-W-Type Natriuretic Peptide 2029 pg/mL (0-124) VTE Prophylaxis Ordered VTE Prophylaxis Devices: Yes VTE Pharmacological Prophylaxi: Yes Assessment/Plan Assessment/Plan S OA-chest x-ray pending, BNP 2000 Indwelling pacer Chronic A.fib Undernourished-BMI 15.3/Cachexia Hx bulimia Hypoxic respiratory failure Questionable hx COPD Indwelling PEG PLAN: Chest x-ray Supportive meds I have reconciled home meds Nutrition consult Tube feeds She is not adjusted and palliative or hospice yet PT OT when more able at least 2 midnights admit MIRANDA MORENO MD Aug 04, 2018 10:57
[2018-08-04 11:00] VITALS: BP 100/53
--- NOTE | 2018-08-04 12:14 | PDOC2 ---
CARDIAC CONSULT DATE OF CONSULT Date of Consult DATE: 08/04/18 TIME: 12:02 REASON FOR CONSULT Reason for Consult: CHF REFERRING PHYSICIAN Referring Physician: Carrington SOURCE Source: Chart review, Patient HISTORY OF PRESENT ILLNESS HISTORY OF PRESENT ILLNESS This is a 73 yo female admitted for complains of SOA. Reports that she has been having SOA and has been coughing. She has dysphagia but consistently still eating. When she eats she feels food trapping and end up coughing with residual food coming out. Complains of heartburn and significant amount of throat secretions which she works so hard to expectorate. This leads to SOA and she has been using her inhalers about 5 x a day in addition to her nebulizer. She is compliant with her medications. No leg swelling or palpitations. PAST MEDICAL HISTORY Past Medical History Cardiovascular: CAD, CHF, HTN, Syncope, Hyperlipidemia, severe MR, chronic LBBB Pulmonary: COPD CENTRAL NERVOUS SYSTEM: Other GI: GERD Heme/Onc: No pertinent hx Hepatobiliary: No pertinent hx Psych: No pertinent hx Musculoskeletal: Other Rheumatologic: No pertinent hx Infectious disease: No pertinent hx Renal/: UTI Endocrine: No pertinent hx PAST SURGICAL HISTORY Past Surgical History AICD, Appendectomy, Hysterectomy, Other (coronary stents) FAMILY HISTORY Family History: Coronary Artery Disease SOCIAL HISTORY Smoke: No ALCOHOL: none Drugs: None Lives: with Family CURRENT MEDICATIONS CURRENT MEDICATIONS Current Medications Medications (Trade) Dose Ordered Sig/Lisandra Route PRN Reason Start Time Stop Time Status Last Admin Dose Admin Albuterol/ Ipratropium (Duoneb) 3 ml 1X ONCE NEB 08/04/18 02:00 08/04/18 02:01 DC 08/04/18 02:08 Ondansetron HCl (Zofran) 4 mg 1X ONCE IV 08/04/18 02:15 08/04/18 02:20 DC 08/04/18 02:18 Prednisone (Prednisone) 50 mg 1X ONCE PO 08/04/18 02:45 08/04/18 02:46 DC 08/04/18 02:57 Levofloxacin (Levaquin) 500 mg 1X ONCE PO 08/04/18 02:45 08/04/18 02:46 DC 08/04/18 02:58 Albuterol Sulfate (Ventolin Neb Soln) 2.5 mg PRN Q4HRS PRN NEB dyspnea or wheezing. 08/04/18 02:45 08/04/18 07:20 Influenza Virus Vaccine (Afluria Trivalent [id number] Syringe) 0.5 ml ONCE ONCE VAX IM 08/04/18 09:00 08/04/18 09:01 DC 08/04/18 09:31 Ondansetron HCl (Zofran) 4 mg PRN Q6HRS PRN IV NAUSEA/VOMITING 08/04/18 08:45 08/04/18 10:21 Albuterol/ Ipratropium (Duoneb) 3 ml RTQID NEB 08/04/18 09:00 08/04/18 11:34 Aspirin (Ecotrin) 325 mg DAILY PO 08/04/18 09:00 08/04/18 09:26 Carvedilol (Coreg) 6.25 mg BIDWMEALS PO 08/04/18 09:00 08/04/18 09:25 Clopidogrel Bisulfate (Plavix) 75 mg DAILY PO 08/04/18 09:00 08/04/18 09:26 Furosemide (Lasix) 40 mg DAILY PO 08/04/18 09:00 08/04/18 09:25 Lisinopril (Prinivil) 20 mg DAILY PO 08/04/18 09:00 08/04/18 09:26 Vitamin D (Vitamin D3) 2,000 unit BIDAFTMEAL PO 08/04/18 09:00 08/04/18 09:26 ALLERGIES ALLERGIES: Coded Allergies: Penicillins (Verified Allergy, Intermediate, hives, 08/03/16) Sulfa (Sulfonamide Antibiotics) (Verified Allergy, Intermediate, hives, ) ROS Review of System 14 point ROS evaluated with pertinent positives noted per HPI PHYSICAL EXAM General: Alert, Oriented X3, Cooperative HEENT: Atraumatic, Mucous membr. moist/pink Lungs: Clear to auscultation, Normal air movement Heart: Regular rate (SR with LBBB), Other (4/6 systolic murmur to apex) Abdomen: Soft, No tenderness, Other (PEG tube) Extremities: No cyanosis, No edema Skin: No breakdown, No significant lesion Neuro: Normal speech, Sensation intact Psych/Mental Status: Mental status NL, Other (anxious) MUSCULOSKELETAL: Osteoarthritic changes both hands VITALS VITALS Vital Signs Date Time Temp Pulse Resp B/P (MAP) Pulse Ox O2 Delivery O2 Flow Rate FiO2 08/04/18 11:35 Nasal Cannula 2.0 08/04/18 09:26 88 131/78 08/04/18 07:24 94 08/04/18 07:00 98.8 18 98.8 LABS Lab: Laboratory Tests Test 08/04/18 01:56 08/04/18 05:25 08/04/18 08:15 White Blood Count 6.2 x10^3/uL (4.0-11.0) Red Blood Count 4.78 x10^6/uL (3.50-5.40) Hemoglobin 14.6 g/dL (12.0-15.5) Hematocrit 43.0 % (36.0-47.0) Mean Corpuscular Volume 90 fL (79-100) Mean Corpuscular Hemoglobin 31 pg (25-35) Mean Corpuscular Hemoglobin Concent 34 g/dL (31-37) Red Cell Distribution Width 14.3 % (11.5-14.5) Platelet Count 202 x10^3/uL (140-400) Neutrophils (%) (Auto) 54 % (31-73) Lymphocytes (%) (Auto) 29 % (24-48) Monocytes (%) (Auto) 9 % (0-9) Eosinophils (%) (Auto) 9 % (0-3) Basophils (%) (Auto) 0 % (0-3) Neutrophils # (Auto) 3.3 x10^3uL (1.8-7.7) Lymphocytes # (Auto) 1.8 x10^3/uL (1.0-4.8) Monocytes # (Auto) 0.5 x10^3/uL (0.0-1.1) Eosinophils # (Auto) 0.5 x10^3/uL (0.0-0.7) Basophils # (Auto) 0.0 x10^3/uL (0.0-0.2) Prothrombin Time 14.4 SEC (11.7-14.0) Prothromb Time International Ratio 1.2 (0.8-1.1) Activated Partial Thromboplast Time 35 SEC (24-38) Sodium Level 141 mmol/L (136-145) Potassium Level 3.9 mmol/L (3.5-5.1) Chloride Level 103 mmol/L (98-107) Carbon Dioxide Level 32 mmol/L (21-32) Anion Gap 6 (6-14) Blood Urea Nitrogen 23 mg/dL (7-20) Creatinine 1.0 mg/dL (0.6-1.0) Estimated GFR (Cockcroft-Gault) 65.6 Glucose Level 98 mg/dL (70-99) Calcium Level 10.4 mg/dL (8.5-10.1) Troponin I Quantitative < 0.017 ng/mL (0.000-0.055) 0.020 ng/mL (0.000-0.055) < 0.017 ng/mL (0.000-0.055) KN-Mty-G-Type Natriuretic Peptide 2029 pg/mL (0-124) ECHOCARDIOGRAM ECHOCARDIOGRAM <Conclusion> Left ventricle systolic function is severely impaired. The Ejection Fraction is 10-15%. There is severe global hypokinesis of the left ventricle. Doppler and Color-flow revealed severe mitral regurgitation. Doppler and Color Flow revealed mild tricuspid regurgitation. There is mild- moderate pulmonary hypertension. The PA pressure was estimated at 43 mmHg. DATE: 04/18/18 1311 ASSESSMENT/PLAN ASSESSMENT/PLAN 1. AECOPD 2. Chronic systolic CHF: recent EF 10-15% compensated 3. CAD: stents in the past. clinically stable. 4. AICD in situ: Medtr[employer]. AAI=DDD, recent interrogation on 07/14 revealed no arrhythmias, optivol within baseline. Normal functioning device. 5. Severe MR: treated medically, not a surgical candidate. 6. 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 7. HTN: controlled 8. Chronic dysphagia with PEG: continues to eat via mouth despite Recommendations 1. Continue with current cardiac regimen. Lasix therapy. 2. Follow pulmonary recommendations 3. Poor terminal clerk prognosis. Supportive care. 4. She will likely need O2 supplement when Dcd. 5. I believe she needs to stop eating via mouth and use her PEG for feeding. Her solid intake with her dysphagia which likely then promote further inflammation to her esophageal region promoting increased thick formation of secretions. This then promote further cough exacerbation leading to anxiety,SOA , and significant exertion. Will defer to PCP. JARVIS NIEVES APRN Aug 04, 2018 12:14
[2018-08-04] MEDS: traMADol 50 MG TABLET PO PRN ×2 (13:42→19:55)
[2018-08-04 15:00] VITALS: BP 129/79
--- NOTE | 2018-08-04 17:18 | PDOC ---
PULMONARY PROGRESS NOTES Vitals Vital Signs Date Time Temp Pulse Resp B/P (MAP) Pulse Ox O2 Delivery O2 Flow Rate FiO2 08/04/18 15:00 97.7 80 20 129/79 (96) 86 Room Air 97.7 08/04/18 14:53 2.0 General: Alert, No acute distress HEENT: Other Lungs: Wheezing, Crackles Cardiovascular: S1 Abdomen: Soft, Non-tender Extremities: No Edema Labs Laboratory Tests Test 08/04/18 01:56 08/04/18 05:25 08/04/18 08:15 White Blood Count 6.2 x10^3/uL (4.0-11.0) Red Blood Count 4.78 x10^6/uL (3.50-5.40) Hemoglobin 14.6 g/dL (12.0-15.5) Hematocrit 43.0 % (36.0-47.0) Mean Corpuscular Volume 90 fL (79-100) Mean Corpuscular Hemoglobin 31 pg (25-35) Mean Corpuscular Hemoglobin Concent 34 g/dL (31-37) Red Cell Distribution Width 14.3 % (11.5-14.5) Platelet Count 202 x10^3/uL (140-400) Neutrophils (%) (Auto) 54 % (31-73) Lymphocytes (%) (Auto) 29 % (24-48) Monocytes (%) (Auto) 9 % (0-9) Eosinophils (%) (Auto) 9 % (0-3) Basophils (%) (Auto) 0 % (0-3) Neutrophils # (Auto) 3.3 x10^3uL (1.8-7.7) Lymphocytes # (Auto) 1.8 x10^3/uL (1.0-4.8) Monocytes # (Auto) 0.5 x10^3/uL (0.0-1.1) Eosinophils # (Auto) 0.5 x10^3/uL (0.0-0.7) Basophils # (Auto) 0.0 x10^3/uL (0.0-0.2) Prothrombin Time 14.4 SEC (11.7-14.0) Prothromb Time International Ratio 1.2 (0.8-1.1) Activated Partial Thromboplast Time 35 SEC (24-38) Sodium Level 141 mmol/L (136-145) Potassium Level 3.9 mmol/L (3.5-5.1) Chloride Level 103 mmol/L (98-107) Carbon Dioxide Level 32 mmol/L (21-32) Anion Gap 6 (6-14) Blood Urea Nitrogen 23 mg/dL (7-20) Creatinine 1.0 mg/dL (0.6-1.0) Estimated GFR (Cockcroft-Gault) 65.6 Glucose Level 98 mg/dL (70-99) Calcium Level 10.4 mg/dL (8.5-10.1) Troponin I Quantitative < 0.017 ng/mL (0.000-0.055) 0.020 ng/mL (0.000-0.055) < 0.017 ng/mL (0.000-0.055) KB-Tso-O-Type Natriuretic Peptide 2029 pg/mL (0-124) Laboratory Tests Test 08/04/18 01:56 08/04/18 05:25 08/04/18 08:15 White Blood Count 6.2 x10^3/uL (4.0-11.0) Red Blood Count 4.78 x10^6/uL (3.50-5.40) Hemoglobin 14.6 g/dL (12.0-15.5) Hematocrit 43.0 % (36.0-47.0) Mean Corpuscular Volume 90 fL (79-100) Mean Corpuscular Hemoglobin 31 pg (25-35) Mean Corpuscular Hemoglobin Concent 34 g/dL (31-37) Red Cell Distribution Width 14.3 % (11.5-14.5) Platelet Count 202 x10^3/uL (140-400) Neutrophils (%) (Auto) 54 % (31-73) Lymphocytes (%) (Auto) 29 % (24-48) Monocytes (%) (Auto) 9 % (0-9) Eosinophils (%) (Auto) 9 % (0-3) Basophils (%) (Auto) 0 % (0-3) Neutrophils # (Auto) 3.3 x10^3uL (1.8-7.7) Lymphocytes # (Auto) 1.8 x10^3/uL (1.0-4.8) Monocytes # (Auto) 0.5 x10^3/uL (0.0-1.1) Eosinophils # (Auto) 0.5 x10^3/uL (0.0-0.7) Basophils # (Auto) 0.0 x10^3/uL (0.0-0.2) Prothrombin Time 14.4 SEC (11.7-14.0) Prothromb Time International Ratio 1.2 (0.8-1.1) Activated Partial Thromboplast Time 35 SEC (24-38) Sodium Level 141 mmol/L (136-145) Potassium Level 3.9 mmol/L (3.5-5.1) Chloride Level 103 mmol/L (98-107) Carbon Dioxide Level 32 mmol/L (21-32) Anion Gap 6 (6-14) Blood Urea Nitrogen 23 mg/dL (7-20) Creatinine 1.0 mg/dL (0.6-1.0) Estimated GFR (Cockcroft-Gault) 65.6 Glucose Level 98 mg/dL (70-99) Calcium Level 10.4 mg/dL (8.5-10.1) Troponin I Quantitative < 0.017 ng/mL (0.000-0.055) 0.020 ng/mL (0.000-0.055) < 0.017 ng/mL (0.000-0.055) VU-Ieh-Z-Type Natriuretic Peptide 2029 pg/mL (0-124) Medications Active Scripts Medications Dose Route/Sig Max Daily Dose Days Date Category Doxycycline Hyclate 100 Mg Capsule 1 Cap PO BID 06/23/18 Rx Protonix (Pantoprazole Sodium) 20 Mg Tablet.dr 40 Mg PO PRN DAILY PRN 06/22/18 Reported Furosemide 40 Mg Tablet 40 Mg PO DAILY 30 05/23/18 Rx Ultram (Tramadol Hcl) 50 Mg Tablet 50 Mg PO Q6HRS PRN 04/20/18 Reported Duoneb 0.5-3(2.5) Mg/3 Ml (Albuterol/Ipratropium) 3 Ml Ampul.neb 3 Ml NEB QID 04/17/18 Reported Zofran (Ondansetron Hcl) 4 Mg Tablet 1 Tab PO Q8HRS PRN 05/19/16 Rx Atorvastatin Calcium 40 Mg Tablet 40 Mg PO HS 09/24/15 Reported Lisinopril 20 Mg Tablet 20 Mg PO DAILY 09/24/15 Reported Carvedilol 6.25 Mg Tablet 6.25 Mg PO BIDWMEALS 09/24/15 Reported Vitamin D (Cholecalciferol (Vitamin D3)) 2,000 Unit Capsule 2,000 Unit PO BIDAFTMEAL 01/07/15 Reported Aspirin Ec (Aspirin) 325 Mg Tablet.dr 325 Mg PO DAILY 01/07/15 Reported Clopidogrel (Clopidogrel Bisulfate) 75 Mg Tablet 75 Mg PO DAILY 01/07/15 Reported Impression . FULL NOTE DICTATED BRONCH IN AM FOR UPPER LOBE RIGHT INFILTRATE WORSE ON CT CHEST 06/29 COMPARED TO 06/27 REGGIE CONTRERAS MD Aug 04, 2018 17:18
[2018-08-04 19:00] VITALS: BP 110/65
[2018-08-04] MEDS: ATORVASTATIN CALCIUM 40 MG TABLET. PO SCH (19:55)
[2018-08-04 23:00] VITALS: BP 100/57
--- NOTE | 2018-08-04 23:43 | RAD ---
Indication:INPATIENT. ATRAUMATIC CHEST PAIN. Hx HTN, CHF, COPD, CARDIAC STENTS, PACEMAKER. PRIOR XRAY TECHNIQUE:Portable AP chest X-ray COMPARISON: 06/24/2018 FINDINGS: Heart is normal in size. Dual lead cardiac pacer is seen with its leads projecting over the heart. Calcified right hilar lymph nodes are seen. Diffuse interstitial opacities are seen without focal consolidation. There is patchy opacity in the right lung apex. No pneumothorax or pleural effusion. Utilized bony thorax is within normal limits. IMPRESSION: 1. Patchy opacity in the right lung apex. Please see report on CT chest from 06/22/2018. 2. Diffuse prominence of interstitium may be secondary to mild interstitial pulmonary edema or atypical/viral infection. Electronically signed by: Bar Gillespie DO (08/04/2018 11:41 PM) [facility]
[2018-08-05 03:00] VITALS: BP 107/61
[2018-08-05] MEDS: ALBUTEROL SULFATE 2.5 MG/3 ML NEBU. NEB PRN ×2 (03:15→12:27)
--- NOTE | 2018-08-05 04:40 | CONS ---
DATE OF CONSULTATION: 08/04/2018 ATTENDING PHYSICIAN: Torrie Seay M.D. REASON FOR CONSULTATION: The patient seen in Pulmonary consultation at the request of Dr. Seay for abnormal CT chest. HISTORY OF PRESENT ILLNESS: The patient is a 73-year old with an indwelling PEG tube for dysphagia. Body mass index of 15. She presented with increasing shortness of breath and some chest heaviness. Had elevated D-dimer. She underwent a CT chest. I reviewed the CT chest from 06/22/2018, which revealed worsening right upper lobe infiltrate compared to the film of June of 2016. The patient is short of breath mostly with exertion. She denies fever, chills, productive cough and no hemoptysis. PAST MEDICAL HISTORY: Remarkable for coronary artery disease, cardiomyopathy, ejection fraction 15%, hypertension and previous myocardial infarction. She also has dysphagia, bulimia and has a PEG tube in place. ALLERGIES: To SULFA. REVIEW OF SYSTEMS: CONSTITUTIONAL: No fever or chills. EYES: No change in visual acuity. HEENT: No nasal congestion or sore throat. PULMONARY: As indicated above. CARDIOVASCULAR: As indicated above. GASTROINTESTINAL: PEG in place. No nausea or vomiting. GENITOURINARY: No dysuria or frequency. MUSCULOSKELETAL: No localized muscle aches or joint pains. SKIN: No new skin rashes. NEUROLOGICAL: No headaches, diplopia or blurred vision. FAMILY HISTORY: Noncontributory. SOCIAL HISTORY: She quit tobacco a year and a half ago. CURRENT MEDICATIONS: List was reviewed. PHYSICAL EXAMINATION: GENERAL: The patient was in no respiratory distress. VITAL SIGNS: Stable. O2 saturation currently on 2 liters was 94%. HEENT: Eyes, the sclerae were nonicteric. NECK: Jugular venous distention was not elevated. No lymphadenopathy. CHEST: Full expansion. LUNGS: Crackles in the right base, otherwise no wheezes. CARDIOVASCULAR: Regular rate and rhythm with S1 and S2. No S3. ABDOMEN: Soft, nontender and nondistended. EXTREMITIES: No clubbing, cyanosis or edema. NEUROLOGICAL: The patient was awake, alert, following commands. A detailed neuro exam was not performed. LABORATORY DATA: Labs were reviewed. White count was normal. INR was 1.2. Electrolytes were noted. BNP was elevated. IMPRESSION: 1. Abnormal CT chest revealing right upper lobe infiltrate compared to the film of June of 2016 and it has increased in size. 2. Protein malnutrition, present upon admission. 3. Status post percutaneous endoscopic gastrostomy placement for dysphagia and bulimia. 4. Cardiomyopathy, ejection fraction 10%-15%. 5. Chronic obstructive pulmonary disease, unknown FEV1. PLAN: Considering the worsening of the right upper lobe infiltrate seen on CT of the chest, I will proceed with a diagnostic bronchoscopy. I have reviewed the risks, benefits and alternatives with the patient and family. She has consented. We will maintain n.p.o. after midnight and proceed with diagnostic testing in the a.m. I do appreciate the privilege in sharing in the patient's care. REGGIE CONTRERAS MD DR: CAROLA/murali JOB#: [id number] / [id number]
[2018-08-05 07:00] VITALS: BP 109/62
[2018-08-05] MEDS ORDERED: PANTOPRAZOLE 40 MG TABLET.DR. PO PRN (07:30)
[2018-08-05] MEDS: IPRATRPIUM/ALBUTEROL 0.5/2.5MG 3 ML NEBU. NEB SCH ×4 (07:53→19:33)
[2018-08-05] MEDS: CARVEDILOL 6.25 MG TABLET. PO SCH ×2 (08:00→16:32)
[2018-08-05] MEDS: FUROSEMIDE 40 MG TABLET. PO SCH (08:03)
[2018-08-05] MEDS: CHOLECALCIFEROL (VITAMIN D3) 1,000 UNIT TABLET PO SCH ×2 (08:03→16:32)
[2018-08-05] MEDS: LISINOPRIL 20 MG TABLET PO SCH (08:03)
[2018-08-05] MEDS: CLOPIDOGREL BISULFATE 75 MG TABLET PO SCH (08:03)
[2018-08-05] MEDS: ASPIRIN ENTERIC COATED 325 MG TABLET.DR. PO SCH (08:03)
[2018-08-05] MEDS ORDERED: 0.9 % SODIUM CHLORIDE 10 ML DISP.SYRIN. IV PRN (08:45)
[2018-08-05] MEDS ORDERED: EPINEPHrine 1 MG/ML VIAL INJ PRN (08:45)
[2018-08-05] MEDS ORDERED: LIDOCAINE 1% Multi-Dose 50 ML VIAL. INJ PRN (08:45)
[2018-08-05] MEDS ORDERED: LIDOCAINE 4% TOPICAL 50 ML SOLUTION. MM PRN (08:45)
[2018-08-05] MEDS ORDERED: LIDOCAINE 2% VISCOUS 100 ML BOTTLE. MM PRN (08:45)
[2018-08-05] MEDS ORDERED: EPINEPHrine 1 MG/ML VIAL ONE (08:48)
[2018-08-05] MEDS ORDERED: LIDOCAINE 2% VISCOUS 100 ML BOTTLE. ONE (08:49)
[2018-08-05] MEDS ORDERED: LIDOCAINE 4% TOPICAL 50 ML SOLUTION. ONE (08:49)
[2018-08-05] MEDS ORDERED: LIDOCAINE 1% Multi-Dose 50 ML VIAL. ONE (08:49)
--- NOTE | 2018-08-05 09:55 | PDOC ---
PULMONARY PROGRESS NOTES Subjective PT SEEN ON 08/05 NO NEW COMPLAINTS Vitals Vital Signs Date Time Temp Pulse Resp B/P (MAP) Pulse Ox O2 Delivery O2 Flow Rate FiO2 08/05/18 08:03 67 107/61 08/05/18 08:00 Nasal Cannula 2.0 08/05/18 07:54 95 08/05/18 07:00 98.7 20 98.7 General: Alert, No acute distress HEENT: Other Lungs: Crackles Cardiovascular: S1 Abdomen: Soft, Non-tender Neuro Exam: Alert Extremities: No Edema Skin: Warm Labs Laboratory Tests Test 08/04/18 01:56 08/04/18 05:25 08/04/18 08:15 White Blood Count 6.2 x10^3/uL (4.0-11.0) Red Blood Count 4.78 x10^6/uL (3.50-5.40) Hemoglobin 14.6 g/dL (12.0-15.5) Hematocrit 43.0 % (36.0-47.0) Mean Corpuscular Volume 90 fL (79-100) Mean Corpuscular Hemoglobin 31 pg (25-35) Mean Corpuscular Hemoglobin Concent 34 g/dL (31-37) Red Cell Distribution Width 14.3 % (11.5-14.5) Platelet Count 202 x10^3/uL (140-400) Neutrophils (%) (Auto) 54 % (31-73) Lymphocytes (%) (Auto) 29 % (24-48) Monocytes (%) (Auto) 9 % (0-9) Eosinophils (%) (Auto) 9 % (0-3) Basophils (%) (Auto) 0 % (0-3) Neutrophils # (Auto) 3.3 x10^3uL (1.8-7.7) Lymphocytes # (Auto) 1.8 x10^3/uL (1.0-4.8) Monocytes # (Auto) 0.5 x10^3/uL (0.0-1.1) Eosinophils # (Auto) 0.5 x10^3/uL (0.0-0.7) Basophils # (Auto) 0.0 x10^3/uL (0.0-0.2) Prothrombin Time 14.4 SEC (11.7-14.0) Prothromb Time International Ratio 1.2 (0.8-1.1) Activated Partial Thromboplast Time 35 SEC (24-38) Sodium Level 141 mmol/L (136-145) Potassium Level 3.9 mmol/L (3.5-5.1) Chloride Level 103 mmol/L (98-107) Carbon Dioxide Level 32 mmol/L (21-32) Anion Gap 6 (6-14) Blood Urea Nitrogen 23 mg/dL (7-20) Creatinine 1.0 mg/dL (0.6-1.0) Estimated GFR (Cockcroft-Gault) 65.6 Glucose Level 98 mg/dL (70-99) Calcium Level 10.4 mg/dL (8.5-10.1) Troponin I Quantitative < 0.017 ng/mL (0.000-0.055) 0.020 ng/mL (0.000-0.055) < 0.017 ng/mL (0.000-0.055) ZZ-Kzj-M-Type Natriuretic Peptide 2029 pg/mL (0-124) Medications Active Scripts Medications Dose Route/Sig Max Daily Dose Days Date Category Doxycycline Hyclate 100 Mg Capsule 1 Cap PO BID 06/23/18 Rx Protonix (Pantoprazole Sodium) 20 Mg Tablet.dr 40 Mg PO PRN DAILY PRN 06/22/18 Reported Furosemide 40 Mg Tablet 40 Mg PO DAILY 30 05/23/18 Rx Ultram (Tramadol Hcl) 50 Mg Tablet 50 Mg PO Q6HRS PRN 04/20/18 Reported Duoneb 0.5-3(2.5) Mg/3 Ml (Albuterol/Ipratropium) 3 Ml Ampul.neb 3 Ml NEB QID 04/17/18 Reported Zofran (Ondansetron Hcl) 4 Mg Tablet 1 Tab PO Q8HRS PRN 05/19/16 Rx Atorvastatin Calcium 40 Mg Tablet 40 Mg PO HS 09/24/15 Reported Lisinopril 20 Mg Tablet 20 Mg PO DAILY 09/24/15 Reported Carvedilol 6.25 Mg Tablet 6.25 Mg PO BIDWMEALS 09/24/15 Reported Vitamin D (Cholecalciferol (Vitamin D3)) 2,000 Unit Capsule 2,000 Unit PO BIDAFTMEAL 01/07/15 Reported Aspirin Ec (Aspirin) 325 Mg Tablet.dr 325 Mg PO DAILY 01/07/15 Reported Clopidogrel (Clopidogrel Bisulfate) 75 Mg Tablet 75 Mg PO DAILY 01/07/15 Reported Impression . IMPRESSION: 1. Abnormal CT chest revealing right upper lobe infiltrate compared to the film of June of 2016 and it has increased in size. 2. Protein malnutrition, present upon admission. 3. Status post percutaneous endoscopic gastrostomy placement for dysphagia and bulimia. 4. Cardiomyopathy, ejection fraction 10%-15%. 5. Chronic obstructive pulmonary disease, unknown FEV1. Plan . REVIEWED R/B/A TO BRONCH PT ACCEPTED CONTINUE THE SAME REGGIE CONTRERAS MD Aug 05, 2018 09:55
--- NOTE | 2018-08-05 09:56 | PDOC ---
PROGRESS NOTES Chief Complaint Chief Complaint SOA. Abnormal CT chest revealing right upper lobe infiltrate compared to the film of June of 2016 and it has increased in size. Indwelling pacer Chronic A.fib Undernourished-BMI 15.3/Cachexia Hx bulimia Hypoxic respiratory failure Questionable hx COPD Indwelling PEG History of Present Illness History of Present Illness Worsened chest x-ray- 1. Patchy opacity in the right lung apex. Please see report on CT chest from 06/22/2018. 2. Diffuse prominence of interstitium may be secondary to mild interstitial pulmonary edema or atypical/viral infection. pulmo planning bronchoscopy today Plan: Bronch later 1 PM Continue IV antibiotics, tube feeds, and other supportive meds She is not interested in hospice or palliative She does her tube feeds by herself-she wants to be independent Vitals Vitals Vital Signs Date Time Temp Pulse Resp B/P (MAP) Pulse Ox O2 Delivery O2 Flow Rate FiO2 08/05/18 08:03 67 107/61 08/05/18 08:00 Nasal Cannula 2.0 08/05/18 07:54 95 08/05/18 07:00 98.7 20 98.7 Physical Exam General: Alert, Oriented X3, Cooperative Heart: Regular rate (SR with LBBB), Other (4/6 systolic murmur to apex) Lungs: Wheezing, Crackles Abdomen: Soft, No tenderness, Other (PEG tube) Extremities: No cyanosis, No edema Skin: No breakdown, No significant lesion Review of Systems Review of Systems positive for: Weak, SOA, no chest pain, Pos for cough, phlegm, no fever, no abdominal issues Assessment and Plan Assessmemt and Plan Problems Medical Problems: (1) CHF (congestive heart failure) Status: Acute (2) COPD (chronic obstructive pulmonary disease) Status: Acute Comment Review of Relevant I have reviewed the following items loren (where applicable) has been applied. Labs Laboratory Tests Test 08/04/18 01:56 08/04/18 05:25 08/04/18 08:15 White Blood Count 6.2 x10^3/uL (4.0-11.0) Red Blood Count 4.78 x10^6/uL (3.50-5.40) Hemoglobin 14.6 g/dL (12.0-15.5) Hematocrit 43.0 % (36.0-47.0) Mean Corpuscular Volume 90 fL (79-100) Mean Corpuscular Hemoglobin 31 pg (25-35) Mean Corpuscular Hemoglobin Concent 34 g/dL (31-37) Red Cell Distribution Width 14.3 % (11.5-14.5) Platelet Count 202 x10^3/uL (140-400) Neutrophils (%) (Auto) 54 % (31-73) Lymphocytes (%) (Auto) 29 % (24-48) Monocytes (%) (Auto) 9 % (0-9) Eosinophils (%) (Auto) 9 % (0-3) Basophils (%) (Auto) 0 % (0-3) Neutrophils # (Auto) 3.3 x10^3uL (1.8-7.7) Lymphocytes # (Auto) 1.8 x10^3/uL (1.0-4.8) Monocytes # (Auto) 0.5 x10^3/uL (0.0-1.1) Eosinophils # (Auto) 0.5 x10^3/uL (0.0-0.7) Basophils # (Auto) 0.0 x10^3/uL (0.0-0.2) Prothrombin Time 14.4 SEC (11.7-14.0) Prothromb Time International Ratio 1.2 (0.8-1.1) Activated Partial Thromboplast Time 35 SEC (24-38) Sodium Level 141 mmol/L (136-145) Potassium Level 3.9 mmol/L (3.5-5.1) Chloride Level 103 mmol/L (98-107) Carbon Dioxide Level 32 mmol/L (21-32) Anion Gap 6 (6-14) Blood Urea Nitrogen 23 mg/dL (7-20) Creatinine 1.0 mg/dL (0.6-1.0) Estimated GFR (Cockcroft-Gault) 65.6 Glucose Level 98 mg/dL (70-99) Calcium Level 10.4 mg/dL (8.5-10.1) Troponin I Quantitative < 0.017 ng/mL (0.000-0.055) 0.020 ng/mL (0.000-0.055) < 0.017 ng/mL (0.000-0.055) WI-Zzp-N-Type Natriuretic Peptide 2029 pg/mL (0-124) Medications Current Medications Albuterol/ Ipratropium (Duoneb) 3 ml 1X ONCE NEB Last administered on at 02:08; Start 08/04/18 at 02:00; Stop 08/04/18 at 02:01; Status DC Ondansetron HCl (Zofran) 4 mg 1X ONCE IV Last administered on 08/04/18at 02:18 ; Start 08/04/18 at 02:15; Stop 08/04/18 at 02:20; Status DC Ondansetron HCl (Zofran) 4 mg PRN Q8HRS PRN IV NAUSEA/VOMITING; Start at 02:45; Stop 08/04/18 at 08:33; Status DC Acetaminophen (Tylenol) 650 mg PRN Q4HRS PRN PO FEVER; Start 08/04/18 at 02:45 ; Stop 08/05/18 at 02:45; Status DC Prednisone (Prednisone) 50 mg 1X ONCE PO Last administered on 08/04/18at 02:57 ; Start 08/04/18 at 02:45; Stop 08/04/18 at 02:46; Status DC Levofloxacin (Levaquin) 500 mg 1X ONCE PO Last administered on 08/04/18at 02: 58; Start 08/04/18 at 02:45; Stop 08/04/18 at 02:46; Status DC Albuterol/ Ipratropium (Duoneb) 3 ml PRN Q4HRS PRN NEB dyspnea or wheezing.; Start 08/04/18 at 02:45; Stop 08/04/18 at 02:45; Status DC Albuterol Sulfate (Ventolin Neb Soln) 2.5 mg PRN Q4HRS PRN NEB dyspnea or wheezing. Last administered on 08/05/18at 03:15; Start 08/04/18 at 02:45 Influenza Virus Vaccine (Afluria Trivalent [id number] Syringe) 0.5 ml ONCE ONCE VAX IM Last administered on 08/04/18at 09:31; Start 08/04/18 at 09:00; Stop 08/04/18 at 09:01; Status DC Ondansetron HCl (Zofran) 4 mg PRN Q6HRS PRN IV NAUSEA/VOMITING Last administered on 08/04/18at 10:21; Start 08/04/18 at 08:45 Albuterol/ Ipratropium (Duoneb) 3 ml RTQID NEB Last administered on 08/05/18at 07:53; Start 08/04/18 at 09:00 Guaifenesin (Robitussin Dm) 10 ml PRN Q6HRS PRN PO COUGH; Start 08/04/18 at 08 :45 Aspirin (Ecotrin) 325 mg DAILY PO Last administered on 08/04/18 09:26; Start 08/04/18 at 09:00 Atorvastatin Calcium (Lipitor) 40 mg HS PO Last administered on 08/04/18 19: 55; Start 08/04/18 at 21:00 Carvedilol (Coreg) 6.25 mg BIDWMEALS PO Last administered on 08/04/18 17:50; Start 08/04/18 at 09:00 Clopidogrel Bisulfate (Plavix) 75 mg DAILY PO Last administered on 08/04/18 09:26; Start 08/04/18 at 09:00 Furosemide (Lasix) 40 mg DAILY PO Last administered on 08/04/18 09:25; Start 08/04/18 at 09:00 Lisinopril (Prinivil) 20 mg DAILY PO Last administered on 08/04/18 09:26; Start 08/04/18 at 09:00 Tramadol HCl (Ultram) 50 mg PRN Q6HRS PRN PO PAIN Last administered on 19:55; Start 08/04/18 at 08:45 Vitamin D (Vitamin D3) 2,000 unit BIDAFTMEAL PO Last administered on 17:49; Start 08/04/18 at 09:00 Ondansetron HCl (Zofran Odt) 4 mg PRN Q8HRS PRN PO NAUSEA/VOMITING; Start at 08:45 Pantoprazole Sodium (Protonix) 40 mg PRN DAILY PRN PO HEARBURN/GAS; Start at 07:30 Guaifenesin (Robitussin Dm) 10 ml PRN Q6HRS PRN PO COUGH; Start 08/04/18 at 08 :45; Status UNV Sodium Chloride (Normal Saline Flush) 3 ml QSHIFT PRN IV AFTER MEDS AND BLOOD DRAWS; Start 08/05/18 at 08:45 Lidocaine HCl 100 ml PRN 1X PRN MM MOUTH PAIN; Start 08/05/18 at 08:45; Stop 08/06/18 at 08:44 Lidocaine HCl (Lidocaine 1% 50ml Vial) 50 ml PRN 1X PRN INJ SEE COMMENTS; Start 08/05/18 at 08:45; Stop 08/06/18 at 08:44 Epinephrine HCl (Adrenalin) 1 mg PRN 1X PRN INJ SEE COMMENTS; Start 08/05/18 at 08:45; Stop 08/06/18 at 08:44 Lidocaine HCl 50 ml PRN 1X PRN MM SEE COMMENTS; Start 08/05/18 at 08:45; Stop 08/06/18 at 08:44 Epinephrine HCl (Adrenalin) 1 mg STK-MED ONCE .ROUTE ; Start 08/05/18 at 08:48 ; Stop 08/05/18 at 08:49; Status DC Lidocaine HCl (Lidocaine 1% 50ml Vial) 50 ml STK-MED ONCE .ROUTE ; Start at 08:49; Stop 08/05/18 at 08:50; Status DC Lidocaine HCl 100 ml STK-MED ONCE .ROUTE ; Start 08/05/18 at 08:49; Stop 08/05 at 08:50; Status DC Lidocaine HCl 50 ml STK-MED ONCE .ROUTE ; Start 08/05/18 at 08:49; Stop at 08:50; Status DC Active Scripts Active Doxycycline Hyclate 100 Mg Capsule 1 Cap PO BID Furosemide 40 Mg Tablet 40 Mg PO DAILY 30 Days Zofran (Ondansetron Hcl) 4 Mg Tablet 1 Tab PO Q8HRS PRN Reported Protonix (Pantoprazole Sodium) 20 Mg Tablet.dr 40 Mg PO PRN DAILY PRN Ultram (Tramadol Hcl) 50 Mg Tablet 50 Mg PO Q6HRS PRN Duoneb 0.5-3(2.5) Mg/3 Ml (Albuterol/Ipratropium) 3 Ml Ampul.neb 3 Ml NEB QID Atorvastatin Calcium 40 Mg Tablet 40 Mg PO HS Lisinopril 20 Mg Tablet 20 Mg PO DAILY Carvedilol 6.25 Mg Tablet 6.25 Mg PO BIDWMEALS Vitamin D (Cholecalciferol (Vitamin D3)) 2,000 Unit Capsule 2,000 Unit PO BIDAFTMEAL Aspirin Ec (Aspirin) 325 Mg Tablet.dr 325 Mg PO DAILY Clopidogrel (Clopidogrel Bisulfate) 75 Mg Tablet 75 Mg PO DAILY Vitals/I & O Vital Sign - Last 24 Hours 08/04/18 08/04/18 08/04/18 08/04/18 11:00 11:35 13:42 14:53 Temp 97.7 97.7 Pulse 79 Resp 18 18 B/P (MAP) 100/53 (69) Pulse Ox 94 O2 Delivery 2L Nasal Cannula Nasal Cannula Nasal Cannula O2 Flow Rate 2.0 3.0 2.0 08/04/18 08/04/18 08/04/18 08/04/18 15:00 17:50 19:00 19:55 Temp 97.7 98.0 97.7 98.0 Pulse 80 80 73 Resp 20 20 18 B/P (MAP) 129/79 (96) 129/79 110/65 (80) Pulse Ox 86 93 O2 Delivery Room Air Nasal Cannula Nasal Cannula O2 Flow Rate 3.0 08/04/18 08/04/18 08/04/18 08/04/18 19:58 20:00 20:55 23:00 Temp 98.3 98.3 Pulse 77 Resp 16 20 B/P (MAP) 100/57 (71) Pulse Ox 94 94 97 O2 Delivery Nasal Cannula Nasal Cannula Nasal Cannula Nasal Cannula O2 Flow Rate 2.0 3.0 3.0 08/05/18 08/05/18 08/05/18 08/05/18 03:00 03:16 07:00 07:54 Temp 97.7 98.7 97.7 98.7 Pulse 67 71 Resp 20 20 B/P (MAP) 107/61 (76) 109/62 (78) Pulse Ox 94 95 99 95 O2 Delivery Nasal Cannula Nasal Cannula nebulizer; breathing treatment Nasal Cannula O2 Flow Rate 2.0 2.0 08/05/18 08/05/18 08/05/18 08:00 08:00 08:03 Pulse 67 67 B/P (MAP) 107/61 107/61 O2 Delivery Nasal Cannula O2 Flow Rate 2.0 Intake and Output 08/04/18 08/04/18 08/05/18 15:00 23:00 07:00 Intake Total 530 ml 1000 ml 100 ml Balance 530 ml 1000 ml 100 ml Nutrition Consultation Dietary Evaluation: Recommendations by RD: Increase Calorie Intake, Protein supplementation Comments: TF at goal providing > 100% est needs to promote wt gain Expected Outcomes/Goals: TF tolerance wt maintainance/ possibly some gain pending on disease process Interpretation of weight loss: >20% in 1 year Malnutrition Findings: Body Fat Depletion (Non Severe: Mod to Severe Weight Status: Underweight MIRANDA MORENO MD Aug 05, 2018 09:56
[2018-08-05] MEDS ORDERED: ETOMIDATE 20 MG/10 ML VIAL. IV ONE (12:00)
[2018-08-05] MEDS: IV RINGERS,LACTATED 1000ML 1,000 ML IV SCH ×2 (12:05→19:09)
[2018-08-05] MEDS ORDERED: PROPOFOL 0 ML IV ONE (12:09)
[2018-08-05] MEDS ORDERED: IV RINGERS,LACTATED 1000ML 1,000 ML IV SCH (12:12)
[2018-08-05] MEDS ORDERED: MORPHINE SULFATE 2 MG/ML VIAL. IV PRN (12:15)
[2018-08-05] MEDS ORDERED: ONDANSETRON PF 4 MG/2 ML VIAL. IV PRN (12:15)
[2018-08-05] MEDS ORDERED: fentaNYL PF VIAL 100 MCG/2 ML VIAL IV PRN ×2 (12:15)
[2018-08-05] MEDS ORDERED: HYDROmorphone 2 MG/ML VIAL IV PRN (12:15)
[2018-08-05] MEDS ORDERED: LIDOCAINE 1% PF 2 ML VIAL. ID PRN (12:15)
[2018-08-05] MEDS ORDERED: PROCHLORPERAZINE 10 MG/2 ML VIAL. IV PRN (12:15)
[2018-08-05 15:00] VITALS: BP 108/56
--- NOTE | 2018-08-05 15:49 | PDOC4 ---
PROCEDURE Procedure BRONCH NO ENDOBRONCHIAL LESIONS NO PURULENT SECRETION WILL AWAIT BAL RESULTS REGGIE CONTRERAS MD Aug 05, 2018 15:49
--- NOTE | 2018-08-05 16:21 | OP ---
DATE OF SURGERY: 08/05/2018 ATTENDING PHYSICIAN: Dr. Seay. PROCEDURE: Bronchoscopy, bronchoalveolar lavage. INDICATIONS: The patient with persistent right upper lobe infiltrate, worsening on current CT chest, weight loss and poor appetite, undergoing a diagnostic bronchoscopy, rule out the possibility of an atypical infection. Risks, benefits, and alternatives reviewed with the patient. She consented. SEDATION: Please see Anesthesia's notes. DESCRIPTION OF PROCEDURE: A timeout was performed prior to sedation. Vital signs and O2 saturation were maintained within normal limits throughout the procedure. The bronchoscope was passed through the right naris. The vocal cords were identified moving bilaterally without any dysfunction. The vocal cords were then anesthetized with a total 5 mL of 4% lidocaine. The bronchoscope was passed through the vocal cords into the proximal trachea, which was normal. The distal trachea was normal. The right and left segments and subsegments were visualized. There was minimal amount of secretions. The bronchoscope was then wedged into the right upper lobe and a bronchoalveolar lavage was performed, the return was clear. There were no endobronchial lesions visualized. FINDINGS: 1. Normal vocal cords. 2. No endobronchial lesions. 3. No significant mucus plugging. PLAN: We will await the BAL results. The patient tolerated procedure well with no immediate complications. REGGIE CONTRERAS MD DR: CAROLA/nts JOB#: [id number] / [id number]
[2018-08-05 19:00] VITALS: BP 107/50
[2018-08-05] MEDS: ATORVASTATIN CALCIUM 40 MG TABLET. PO SCH (20:05)
[2018-08-05 23:00] VITALS: BP 110/58
[2018-08-06] MEDS: ONDANSETRON PF 4 MG/2 ML VIAL. IV PRN ×2 (02:20→17:30)
[2018-08-06 03:01] VITALS: BP 133/77
[2018-08-06 07:00] VITALS: BP 109/54
[2018-08-06] MEDS: IPRATRPIUM/ALBUTEROL 0.5/2.5MG 3 ML NEBU. NEB SCH ×4 (07:35→18:36)
[2018-08-06 08:13] LABS: BASO % 0 % (0-3); EOS # 0.9 x10^3/uL (0.0-0.7); EOS % 12 % (0-3); HEMOGLOBIN 12.4 g/dL (12.0-15.5); LYMPH # 1.7 x10^3/uL (1.0-4.8); LYMPH % 22 % (24-48); MEAN CORPUSCULAR HEMOGLOBIN 30 pg (25-35); MEAN CORPUSCULAR HGB CONC 34 g/dL (31-37); MEAN CORPUSCULAR VOLUME 90 fL (79-100); MONO # 0.4 x10^3/uL (0.0-1.1); MONO % 6 % (0-9); NEUT # 4.5 x10^3uL (1.8-7.7); NEUT % 60 % (31-73); PLATELET COUNT 193 x10^3/uL (140-400); RED BLOOD COUNT 4.11 x10^6/uL (3.50-5.40); WHITE BLOOD COUNT 7.6 x10^3/uL (4.0-11.0)
[2018-08-06] MEDS: traMADol 50 MG TABLET PO PRN (08:30)
[2018-08-06] MEDS: ASPIRIN ENTERIC COATED 325 MG TABLET.DR. PO SCH (08:31)
[2018-08-06] MEDS: LISINOPRIL 20 MG TABLET PO SCH (08:31)
[2018-08-06] MEDS: FUROSEMIDE 40 MG TABLET. PO SCH (08:31)
[2018-08-06] MEDS: CARVEDILOL 6.25 MG TABLET. PO SCH (08:31)
[2018-08-06] MEDS: CLOPIDOGREL BISULFATE 75 MG TABLET PO SCH (08:31)
[2018-08-06] MEDS: CHOLECALCIFEROL (VITAMIN D3) 1,000 UNIT TABLET PO SCH ×2 (08:32→18:00)
[2018-08-06 08:34] LABS: ALBUMIN 2.6 g/dL (3.4-5.0); ALBUMIN/GLOBULIN RATIO 0.9 (1.0-1.7); CALCIUM 9.1 mg/dL (8.5-10.1); CREATININE 0.8 mg/dL (0.6-1.0); GFR 84.8; POTASSIUM 3.9 mmol/L (3.5-5.1); TOTAL BILIRUBIN 0.5 mg/dL (0.2-1.0); TOTAL PROTEIN 5.6 g/dL (6.4-8.2)
[2018-08-06] MEDS: IV RINGERS,LACTATED 1000ML 1,000 ML IV SCH (08:43)
[2018-08-06 11:00] VITALS: BP 84/42
--- NOTE | 2018-08-06 11:28 | PDOC ---
PROGRESS NOTES Chief Complaint Chief Complaint SOA. Abnormal CT chest revealing right upper lobe infiltrate compared to the film 06/27 s/p bronch (`08/05/18) Indwelling pacer Chronic A.fib Undernourished-BMI 15.3/Cachexia Hx bulimia Hypoxic respiratory failure Questionable hx COPD Indwelling PEG hypotension History of Present Illness History of Present Illness Status post broncho-I'm still waiting on results/official note Patient still weak No fevers, coughing up some phlegm Has not ambulated yet She does her tube feed herself at home and here She is not ready for palliative or hospice Plan: Blood pressure on the low side, 500 saline bolus now DC lactated Ringer's and do normal saline 100 mL an hour Continue tube feeds Nutrition has seen her We'll be here over the weekend PT OT when stronger Vitals Vitals Vital Signs Date Time Temp Pulse Resp B/P (MAP) Pulse Ox O2 Delivery O2 Flow Rate FiO2 08/06/18 08:31 82 109/54 08/06/18 08:30 Nasal Cannula 3.0 08/06/18 07:00 98.4 20 92 98.4 Physical Exam General: Alert, Oriented X3, Cooperative Heart: Regular rate (SR with LBBB), Normal S1, Normal S2, Other (4/6 systolic murmur to apex) Lungs: Wheezing, Crackles Abdomen: Soft, No tenderness, Other (PEG tube) Extremities: No cyanosis, No edema Skin: No breakdown, No significant lesion Labs LABS Laboratory Tests Test 08/06/18 07:40 08/06/18 07:44 White Blood Count 7.6 x10^3/uL (4.0-11.0) Red Blood Count 4.11 x10^6/uL (3.50-5.40) Hemoglobin 12.4 g/dL (12.0-15.5) Hematocrit 37.0 % (36.0-47.0) Mean Corpuscular Volume 90 fL (79-100) Mean Corpuscular Hemoglobin 30 pg (25-35) Mean Corpuscular Hemoglobin Concent 34 g/dL (31-37) Red Cell Distribution Width 14.0 % (11.5-14.5) Platelet Count 193 x10^3/uL (140-400) Neutrophils (%) (Auto) 60 % (31-73) Lymphocytes (%) (Auto) 22 % (24-48) Monocytes (%) (Auto) 6 % (0-9) Eosinophils (%) (Auto) 12 % (0-3) Basophils (%) (Auto) 0 % (0-3) Neutrophils # (Auto) 4.5 x10^3uL (1.8-7.7) Lymphocytes # (Auto) 1.7 x10^3/uL (1.0-4.8) Monocytes # (Auto) 0.4 x10^3/uL (0.0-1.1) Eosinophils # (Auto) 0.9 x10^3/uL (0.0-0.7) Basophils # (Auto) 0.0 x10^3/uL (0.0-0.2) Erythrocyte Sedimentation Rate 11 (0-25) Sodium Level 140 mmol/L (136-145) Potassium Level 3.9 mmol/L (3.5-5.1) Chloride Level 102 mmol/L (98-107) Carbon Dioxide Level 34 mmol/L (21-32) Anion Gap 4 (6-14) Blood Urea Nitrogen 21 mg/dL (7-20) Creatinine 0.8 mg/dL (0.6-1.0) Estimated GFR (Cockcroft-Gault) 84.8 BUN/Creatinine Ratio 26 (6-20) Glucose Level 91 mg/dL (70-99) Calcium Level 9.1 mg/dL (8.5-10.1) Total Bilirubin 0.5 mg/dL (0.2-1.0) Aspartate Amino Transf (AST/SGOT) 11 U/L (15-37) Alanine Aminotransferase (ALT/SGPT) 13 U/L (14-59) Alkaline Phosphatase 93 U/L (46-116) Total Protein 5.6 g/dL (6.4-8.2) Albumin 2.6 g/dL (3.4-5.0) Albumin/Globulin Ratio 0.9 (1.0-1.7) Review of Systems Review of Systems Weak, coughing some phlegm, the rest of ROS 14 point negative Assessment and Plan Assessmemt and Plan Problems Medical Problems: (1) CHF (congestive heart failure) Status: Acute (2) COPD (chronic obstructive pulmonary disease) Status: Acute Comment Review of Relevant I have reviewed the following items loren (where applicable) has been applied. Labs Laboratory Tests Test 08/06/18 07:40 08/06/18 07:44 White Blood Count 7.6 x10^3/uL (4.0-11.0) Red Blood Count 4.11 x10^6/uL (3.50-5.40) Hemoglobin 12.4 g/dL (12.0-15.5) Hematocrit 37.0 % (36.0-47.0) Mean Corpuscular Volume 90 fL (79-100) Mean Corpuscular Hemoglobin 30 pg (25-35) Mean Corpuscular Hemoglobin Concent 34 g/dL (31-37) Red Cell Distribution Width 14.0 % (11.5-14.5) Platelet Count 193 x10^3/uL (140-400) Neutrophils (%) (Auto) 60 % (31-73) Lymphocytes (%) (Auto) 22 % (24-48) Monocytes (%) (Auto) 6 % (0-9) Eosinophils (%) (Auto) 12 % (0-3) Basophils (%) (Auto) 0 % (0-3) Neutrophils # (Auto) 4.5 x10^3uL (1.8-7.7) Lymphocytes # (Auto) 1.7 x10^3/uL (1.0-4.8) Monocytes # (Auto) 0.4 x10^3/uL (0.0-1.1) Eosinophils # (Auto) 0.9 x10^3/uL (0.0-0.7) Basophils # (Auto) 0.0 x10^3/uL (0.0-0.2) Erythrocyte Sedimentation Rate 11 (0-25) Sodium Level 140 mmol/L (136-145) Potassium Level 3.9 mmol/L (3.5-5.1) Chloride Level 102 mmol/L (98-107) Carbon Dioxide Level 34 mmol/L (21-32) Anion Gap 4 (6-14) Blood Urea Nitrogen 21 mg/dL (7-20) Creatinine 0.8 mg/dL (0.6-1.0) Estimated GFR (Cockcroft-Gault) 84.8 BUN/Creatinine Ratio 26 (6-20) Glucose Level 91 mg/dL (70-99) Calcium Level 9.1 mg/dL (8.5-10.1) Total Bilirubin 0.5 mg/dL (0.2-1.0) Aspartate Amino Transf (AST/SGOT) 11 U/L (15-37) Alanine Aminotransferase (ALT/SGPT) 13 U/L (14-59) Alkaline Phosphatase 93 U/L (46-116) Total Protein 5.6 g/dL (6.4-8.2) Albumin 2.6 g/dL (3.4-5.0) Albumin/Globulin Ratio 0.9 (1.0-1.7) Laboratory Tests Test 08/06/18 07:40 08/06/18 07:44 White Blood Count 7.6 x10^3/uL (4.0-11.0) Red Blood Count 4.11 x10^6/uL (3.50-5.40) Hemoglobin 12.4 g/dL (12.0-15.5) Hematocrit 37.0 % (36.0-47.0) Mean Corpuscular Volume 90 fL (79-100) Mean Corpuscular Hemoglobin 30 pg (25-35) Mean Corpuscular Hemoglobin Concent 34 g/dL (31-37) Red Cell Distribution Width 14.0 % (11.5-14.5) Platelet Count 193 x10^3/uL (140-400) Neutrophils (%) (Auto) 60 % (31-73) Lymphocytes (%) (Auto) 22 % (24-48) Monocytes (%) (Auto) 6 % (0-9) Eosinophils (%) (Auto) 12 % (0-3) Basophils (%) (Auto) 0 % (0-3) Neutrophils # (Auto) 4.5 x10^3uL (1.8-7.7) Lymphocytes # (Auto) 1.7 x10^3/uL (1.0-4.8) Monocytes # (Auto) 0.4 x10^3/uL (0.0-1.1) Eosinophils # (Auto) 0.9 x10^3/uL (0.0-0.7) Basophils # (Auto) 0.0 x10^3/uL (0.0-0.2) Erythrocyte Sedimentation Rate 11 (0-25) Sodium Level 140 mmol/L (136-145) Potassium Level 3.9 mmol/L (3.5-5.1) Chloride Level 102 mmol/L (98-107) Carbon Dioxide Level 34 mmol/L (21-32) Anion Gap 4 (6-14) Blood Urea Nitrogen 21 mg/dL (7-20) Creatinine 0.8 mg/dL (0.6-1.0) Estimated GFR (Cockcroft-Gault) 84.8 BUN/Creatinine Ratio 26 (6-20) Glucose Level 91 mg/dL (70-99) Calcium Level 9.1 mg/dL (8.5-10.1) Total Bilirubin 0.5 mg/dL (0.2-1.0) Aspartate Amino Transf (AST/SGOT) 11 U/L (15-37) Alanine Aminotransferase (ALT/SGPT) 13 U/L (14-59) Alkaline Phosphatase 93 U/L (46-116) Total Protein 5.6 g/dL (6.4-8.2) Albumin 2.6 g/dL (3.4-5.0) Albumin/Globulin Ratio 0.9 (1.0-1.7) Microbiology 08/05/18 - Final, Complete Medications Current Medications Albuterol/ Ipratropium (Duoneb) 3 ml 1X ONCE NEB Last administered on at 02:08; Start 08/04/18 at 02:00; Stop 08/04/18 at 02:01; Status DC Ondansetron HCl (Zofran) 4 mg 1X ONCE IV Last administered on 08/04/18at 02:18 ; Start 08/04/18 at 02:15; Stop 08/04/18 at 02:20; Status DC Ondansetron HCl (Zofran) 4 mg PRN Q8HRS PRN IV NAUSEA/VOMITING; Start at 02:45; Stop 08/04/18 at 08:33; Status DC Acetaminophen (Tylenol) 650 mg PRN Q4HRS PRN PO FEVER; Start 08/04/18 at 02:45 ; Stop 08/05/18 at 02:45; Status DC Prednisone (Prednisone) 50 mg 1X ONCE PO Last administered on 08/04/18at 02:57 ; Start 08/04/18 at 02:45; Stop 08/04/18 at 02:46; Status DC Levofloxacin (Levaquin) 500 mg 1X ONCE PO Last administered on 08/04/18at 02: 58; Start 08/04/18 at 02:45; Stop 08/04/18 at 02:46; Status DC Albuterol/ Ipratropium (Duoneb) 3 ml PRN Q4HRS PRN NEB dyspnea or wheezing.; Start 08/04/18 at 02:45; Stop 08/04/18 at 02:45; Status DC Albuterol Sulfate (Ventolin Neb Soln) 2.5 mg PRN Q4HRS PRN NEB dyspnea or wheezing. Last administered on 08/05/18at 12:27; Start 08/04/18 at 02:45 Influenza Virus Vaccine (Afluria Trivalent [id number] Syringe) 0.5 ml ONCE ONCE VAX IM Last administered on 08/04/18 09:31; Start 08/04/18 at 09:00; Stop 08/04/18 at 09:01; Status DC Ondansetron HCl (Zofran) 4 mg PRN Q6HRS PRN IV NAUSEA/VOMITING Last administered on 08/06/18at 02:20; Start 08/04/18 at 08:45 Albuterol/ Ipratropium (Duoneb) 3 ml RTQID NEB Last administered on 08/06/18at 07:35; Start 08/04/18 at 09:00 Guaifenesin (Robitussin Dm) 10 ml PRN Q6HRS PRN PO COUGH; Start 08/04/18 at 08 :45 Aspirin (Ecotrin) 325 mg DAILY PO Last administered on 08/06/18 08:31; Start 08/04/18 at 09:00 Atorvastatin Calcium (Lipitor) 40 mg HS PO Last administered on 08/05/18at 20: 05; Start 08/04/18 at 21:00 Carvedilol (Coreg) 6.25 mg BIDWMEALS PO Last administered on 08/06/18 08:31; Start 08/04/18 at 09:00 Clopidogrel Bisulfate (Plavix) 75 mg DAILY PO Last administered on 08/06/18 08:31; Start 08/04/18 at 09:00 Furosemide (Lasix) 40 mg DAILY PO Last administered on 08/06/18 08:31; Start 08/04/18 at 09:00 Lisinopril (Prinivil) 20 mg DAILY PO Last administered on 10/26/18at 08:31; Start 08/04/18 at 09:00 Tramadol HCl (Ultram) 50 mg PRN Q6HRS PRN PO PAIN Last administered on at 08:30; Start 08/04/18 at 08:45 Vitamin D (Vitamin D3) 2,000 unit BIDAFTMEAL PO Last administered on at 08:32; Start 08/04/18 at 09:00 Ondansetron HCl (Zofran Odt) 4 mg PRN Q8HRS PRN PO NAUSEA/VOMITING; Start at 08:45 Pantoprazole Sodium (Protonix) 40 mg PRN DAILY PRN PO HEARBURN/GAS; Start at 07:30 Guaifenesin (Robitussin Dm) 10 ml PRN Q6HRS PRN PO COUGH; Start 08/04/18 at 08 :45; Status UNV Sodium Chloride (Normal Saline Flush) 3 ml QSHIFT PRN IV AFTER MEDS AND BLOOD DRAWS; Start 08/05/18 at 08:45 Lidocaine HCl 100 ml PRN 1X PRN MM MOUTH PAIN Last administered on 08/05/18at 12:28; Start 08/05/18 at 08:45; Stop 08/06/18 at 08:44; Status DC Lidocaine HCl (Lidocaine 1% 50ml Vial) 50 ml PRN 1X PRN INJ SEE COMMENTS Last administered on 08/05/18at 12:28; Start 08/05/18 at 08:45; Stop 08/06/18 at 08 :44; Status DC Epinephrine HCl (Adrenalin) 1 mg PRN 1X PRN INJ SEE COMMENTS; Start 08/05/18 at 08:45; Stop 08/06/18 at 08:44; Status DC Lidocaine HCl 50 ml PRN 1X PRN MM SEE COMMENTS Last administered on 08/05/18at 12:27; Start 08/05/18 at 08:45; Stop 08/06/18 at 08:44; Status DC Epinephrine HCl (Adrenalin) 1 mg STK-MED ONCE .ROUTE ; Start 08/05/18 at 08:48 ; Stop 08/05/18 at 08:49; Status DC Lidocaine HCl (Lidocaine 1% 50ml Vial) 50 ml STK-MED ONCE .ROUTE ; Start at 08:49; Stop 08/05/18 at 08:50; Status DC Lidocaine HCl 100 ml STK-MED ONCE .ROUTE ; Start 08/05/18 at 08:49; Stop 08/05 at 08:50; Status DC Lidocaine HCl 50 ml STK-MED ONCE .ROUTE ; Start 08/05/18 at 08:49; Stop at 08:50; Status DC Ringer's Solution 1,000 ml @ 100 mls/hr Q10H IV Last administered on at 08:43; Start 08/05/18 at 11:45; Stop 08/06/18 at 09:18; Status DC Propofol 0 ml @ As Directed STK-MED ONCE IV ; Start 08/05/18 at 12:09; Stop at 12:10; Status DC Ondansetron HCl (Zofran) 4 mg PRN Q6HRS PRN IV NAUSEA/VOMITING; Start at 12:15; Stop 08/06/18 at 12:14 Fentanyl Citrate (Fentanyl 2ml Vial) 25 mcg PRN Q5MIN PRN IV MILD PAIN; Start 08/05/18 at 12:15; Stop 08/06/18 at 12:14 Fentanyl Citrate (Fentanyl 2ml Vial) 50 mcg PRN Q5MIN PRN IV MODERATE TO SEVERE PAIN; Start 08/05/18 at 12:15; Stop 08/06/18 at 12:14 Morphine Sulfate (Morphine Sulfate) 1 mg PRN Q10MIN PRN IV SEVERE PAIN; Start 08/05/18 at 12:15; Stop 08/06/18 at 12:14 Ringer's Solution 1,000 ml @ 30 mls/hr Q24H IV ; Start 08/05/18 at 12:12; Stop 08/06/18 at 00:11; Status DC Lidocaine HCl (Xylocaine-Mpf 1% 2ml Vial) 2 ml 1X PRN PRN ID IV START; Start 08/05/18 at 12:15; Stop 08/06/18 at 12:14 Hydromorphone HCl (Dilaudid) 0.5 mg PRN Q10MIN PRN IV SEV PAIN, Second choice; Start 08/05/18 at 12:15; Stop 08/06/18 at 12:14 Prochlorperazine Edisylate (Compazine) 5 mg PACU PRN PRN IV NAUSEA, MRX1; Start 08/05/18 at 12:15; Stop 08/06/18 at 12:14 Etomidate (Amidate) 20 mg STK-MED ONCE IV ; Start 08/05/18 at 12:00; Stop at 09:05; Status DC Active Scripts Active Doxycycline Hyclate 100 Mg Capsule 1 Cap PO BID Furosemide 40 Mg Tablet 40 Mg PO DAILY 30 Days Zofran (Ondansetron Hcl) 4 Mg Tablet 1 Tab PO Q8HRS PRN Reported Protonix (Pantoprazole Sodium) 20 Mg Tablet.dr 40 Mg PO PRN DAILY PRN Ultram (Tramadol Hcl) 50 Mg Tablet 50 Mg PO Q6HRS PRN Duoneb 0.5-3(2.5) Mg/3 Ml (Albuterol/Ipratropium) 3 Ml Ampul.neb 3 Ml NEB QID Atorvastatin Calcium 40 Mg Tablet 40 Mg PO HS Lisinopril 20 Mg Tablet 20 Mg PO DAILY Carvedilol 6.25 Mg Tablet 6.25 Mg PO BIDWMEALS Vitamin D (Cholecalciferol (Vitamin D3)) 2,000 Unit Capsule 2,000 Unit PO BIDAFTMEAL Aspirin Ec (Aspirin) 325 Mg Tablet.dr 325 Mg PO DAILY Clopidogrel (Clopidogrel Bisulfate) 75 Mg Tablet 75 Mg PO DAILY Vitals/I & O Vital Sign - Last 24 Hours 08/05/18 08/05/18 08/05/18 08/05/18 11:58 11:58 12:30 13:10 Temp 98.4 97.0 98.4 97.0 Pulse 73 80 Resp 16 20 B/P (MAP) 190/110 Pulse Ox 92 97 O2 Delivery Nasal Cannula Nasal Cannula Simple Mask O2 Flow Rate 2.0 2.0 5 08/05/18 08/05/18 08/05/18 08/05/18 13:25 13:36 15:00 16:32 Temp 97.5 97.5 Pulse 74 80 82 82 Resp 20 16 20 B/P (MAP) 166/89 142/67 108/56 (73) 108/56 Pulse Ox 98 94 91 O2 Delivery Nasal Cannula Nasal Cannula Room Air O2 Flow Rate 5 3 10/25/18 10/25/18 10/25/18 10/25/18 19:00 19:37 20:00 23:00 Temp 98.2 98.7 98.2 98.7 Pulse 86 77 Resp 18 20 B/P (MAP) 107/50 (69) 110/58 (75) Pulse Ox 98 92 98 O2 Delivery Nasal Cannula Nasal Cannula Nasal Cannula Nasal Cannula O2 Flow Rate 2.0 3.0 3.0 2.0 08/06/18 08/06/18 08/06/18 08/06/18 03:01 07:00 07:37 08:30 Temp 98.0 98.4 98.0 98.4 Pulse 93 82 Resp 18 20 B/P (MAP) 133/77 (95) 109/54 (72) Pulse Ox 99 92 O2 Delivery Nasal Cannula Room Air Room Air Nasal Cannula O2 Flow Rate 2.0 3.0 08/06/18 08/06/18 08:31 08:31 Pulse 82 82 B/P (MAP) 109/54 109/54 Intake and Output 08/05/18 08/05/18 08/06/18 15:00 23:00 07:00 Intake Total 400 ml 300 ml Balance 400 ml 300 ml Nutrition Consultation Dietary Evaluation: Recommendations by RD: Increase Calorie Intake, Protein supplementation Comments: TF at goal providing > 100% est needs to promote wt gain Expected Outcomes/Goals: TF tolerance wt maintainance/ possibly some gain pending on disease process Interpretation of weight loss: >20% in 1 year Malnutrition Findings: Body Fat Depletion (Non Severe: Mod to Severe Weight Status: Underweight MIRANDA MORENO MD Aug 06, 2018 11:28
[2018-08-06] MEDS ORDERED: IV NORMAL SALINE 500ML BAG 500 ML IV ONE (11:30)
--- NOTE | 2018-08-06 11:57 | PDOC ---
PULMONARY PROGRESS NOTES Subjective NO INCREASE SOA AT TIMES NAUSEATED Vitals Vital Signs Date Time Temp Pulse Resp B/P (MAP) Pulse Ox O2 Delivery O2 Flow Rate FiO2 08/06/18 11:28 Room Air 08/06/18 08:31 82 109/54 08/06/18 08:30 3.0 08/06/18 07:00 98.4 20 92 98.4 ROS: No Chest Pain, No Abdominal Pain General: Alert, No acute distress HEENT: Other Lungs: Crackles Cardiovascular: S1 Abdomen: Soft, Non-tender Neuro Exam: Alert Extremities: No Edema Skin: Warm Labs Laboratory Tests Test 08/06/18 07:40 08/06/18 07:44 White Blood Count 7.6 x10^3/uL (4.0-11.0) Red Blood Count 4.11 x10^6/uL (3.50-5.40) Hemoglobin 12.4 g/dL (12.0-15.5) Hematocrit 37.0 % (36.0-47.0) Mean Corpuscular Volume 90 fL (79-100) Mean Corpuscular Hemoglobin 30 pg (25-35) Mean Corpuscular Hemoglobin Concent 34 g/dL (31-37) Red Cell Distribution Width 14.0 % (11.5-14.5) Platelet Count 193 x10^3/uL (140-400) Neutrophils (%) (Auto) 60 % (31-73) Lymphocytes (%) (Auto) 22 % (24-48) Monocytes (%) (Auto) 6 % (0-9) Eosinophils (%) (Auto) 12 % (0-3) Basophils (%) (Auto) 0 % (0-3) Neutrophils # (Auto) 4.5 x10^3uL (1.8-7.7) Lymphocytes # (Auto) 1.7 x10^3/uL (1.0-4.8) Monocytes # (Auto) 0.4 x10^3/uL (0.0-1.1) Eosinophils # (Auto) 0.9 x10^3/uL (0.0-0.7) Basophils # (Auto) 0.0 x10^3/uL (0.0-0.2) Erythrocyte Sedimentation Rate 11 (0-25) Sodium Level 140 mmol/L (136-145) Potassium Level 3.9 mmol/L (3.5-5.1) Chloride Level 102 mmol/L (98-107) Carbon Dioxide Level 34 mmol/L (21-32) Anion Gap 4 (6-14) Blood Urea Nitrogen 21 mg/dL (7-20) Creatinine 0.8 mg/dL (0.6-1.0) Estimated GFR (Cockcroft-Gault) 84.8 BUN/Creatinine Ratio 26 (6-20) Glucose Level 91 mg/dL (70-99) Calcium Level 9.1 mg/dL (8.5-10.1) Total Bilirubin 0.5 mg/dL (0.2-1.0) Aspartate Amino Transf (AST/SGOT) 11 U/L (15-37) Alanine Aminotransferase (ALT/SGPT) 13 U/L (14-59) Alkaline Phosphatase 93 U/L (46-116) Total Protein 5.6 g/dL (6.4-8.2) Albumin 2.6 g/dL (3.4-5.0) Albumin/Globulin Ratio 0.9 (1.0-1.7) Laboratory Tests Test 08/06/18 07:40 08/06/18 07:44 White Blood Count 7.6 x10^3/uL (4.0-11.0) Red Blood Count 4.11 x10^6/uL (3.50-5.40) Hemoglobin 12.4 g/dL (12.0-15.5) Hematocrit 37.0 % (36.0-47.0) Mean Corpuscular Volume 90 fL (79-100) Mean Corpuscular Hemoglobin 30 pg (25-35) Mean Corpuscular Hemoglobin Concent 34 g/dL (31-37) Red Cell Distribution Width 14.0 % (11.5-14.5) Platelet Count 193 x10^3/uL (140-400) Neutrophils (%) (Auto) 60 % (31-73) Lymphocytes (%) (Auto) 22 % (24-48) Monocytes (%) (Auto) 6 % (0-9) Eosinophils (%) (Auto) 12 % (0-3) Basophils (%) (Auto) 0 % (0-3) Neutrophils # (Auto) 4.5 x10^3uL (1.8-7.7) Lymphocytes # (Auto) 1.7 x10^3/uL (1.0-4.8) Monocytes # (Auto) 0.4 x10^3/uL (0.0-1.1) Eosinophils # (Auto) 0.9 x10^3/uL (0.0-0.7) Basophils # (Auto) 0.0 x10^3/uL (0.0-0.2) Erythrocyte Sedimentation Rate 11 (0-25) Sodium Level 140 mmol/L (136-145) Potassium Level 3.9 mmol/L (3.5-5.1) Chloride Level 102 mmol/L (98-107) Carbon Dioxide Level 34 mmol/L (21-32) Anion Gap 4 (6-14) Blood Urea Nitrogen 21 mg/dL (7-20) Creatinine 0.8 mg/dL (0.6-1.0) Estimated GFR (Cockcroft-Gault) 84.8 BUN/Creatinine Ratio 26 (6-20) Glucose Level 91 mg/dL (70-99) Calcium Level 9.1 mg/dL (8.5-10.1) Total Bilirubin 0.5 mg/dL (0.2-1.0) Aspartate Amino Transf (AST/SGOT) 11 U/L (15-37) Alanine Aminotransferase (ALT/SGPT) 13 U/L (14-59) Alkaline Phosphatase 93 U/L (46-116) Total Protein 5.6 g/dL (6.4-8.2) Albumin 2.6 g/dL (3.4-5.0) Albumin/Globulin Ratio 0.9 (1.0-1.7) Medications Active Scripts Medications Dose Route/Sig Max Daily Dose Days Date Category Doxycycline Hyclate 100 Mg Capsule 1 Cap PO BID 06/23/18 Rx Protonix (Pantoprazole Sodium) 20 Mg Tablet.dr 40 Mg PO PRN DAILY PRN 06/22/18 Reported Furosemide 40 Mg Tablet 40 Mg PO DAILY 30 05/23/18 Rx Ultram (Tramadol Hcl) 50 Mg Tablet 50 Mg PO Q6HRS PRN 04/20/18 Reported Duoneb 0.5-3(2.5) Mg/3 Ml (Albuterol/Ipratropium) 3 Ml Ampul.neb 3 Ml NEB QID 04/17/18 Reported Zofran (Ondansetron Hcl) 4 Mg Tablet 1 Tab PO Q8HRS PRN 05/19/16 Rx Atorvastatin Calcium 40 Mg Tablet 40 Mg PO HS 09/24/15 Reported Lisinopril 20 Mg Tablet 20 Mg PO DAILY 09/24/15 Reported Carvedilol 6.25 Mg Tablet 6.25 Mg PO BIDWMEALS 09/24/15 Reported Vitamin D (Cholecalciferol (Vitamin D3)) 2,000 Unit Capsule 2,000 Unit PO BIDAFTMEAL 01/07/15 Reported Aspirin Ec (Aspirin) 325 Mg Tablet.dr 325 Mg PO DAILY 01/07/15 Reported Clopidogrel (Clopidogrel Bisulfate) 75 Mg Tablet 75 Mg PO DAILY 01/07/15 Reported Impression . IMPRESSION: 1. Abnormal CT chest revealing right upper lobe infiltrate compared to the film of June of 2016 and it has increased in size. 2. Protein malnutrition, present upon admission. 3. Status post percutaneous endoscopic gastrostomy placement for dysphagia and bulimia. 4. Cardiomyopathy, ejection fraction 10%-15%. 5. Chronic obstructive pulmonary disease, unknown FEV1. BAL BRONCHIAL GRAM STAIN Final WBCS FEW RBCS FEW GRAM POSITIVE COCCI FEW GRAM POSITIVE RODS OCCASIONAL YEAST OCCASIONAL SQUAMOUS EPITHELIAL CELLS FEW Plan . EMPIRIC ANTIBX CONTINUE THE SAME INCREASE ORAL INTAKE D/W AT BEDSIDE REGGIE CONTRERAS MD Aug 06, 2018 11:57
[2018-08-06] MEDS: IV NORMAL SALINE 1000ML BAG 1,000 ML IV SCH ×2 (13:01→21:30)
[2018-08-06] MEDS ORDERED: MEROPENEM 1 GM in IV NORMAL SALINE 100ML 100 ML IV SCH (14:00)
[2018-08-06 15:00] VITALS: BP 109/63
[2018-08-06] MEDS ORDERED: PROCHLORPERAZINE 10 MG/2 ML VIAL. IV PRN (19:45)
[2018-08-06] MEDS: ALBUTEROL SULFATE 2.5 MG/3 ML NEBU. NEB PRN (19:52)
[2018-08-06] MEDS: ATORVASTATIN CALCIUM 40 MG TABLET. PO SCH (21:00)
[2018-08-06 23:15] VITALS: BP 115/63
[2018-08-07 03:00] VITALS: BP 119/60
[2018-08-07] MEDS: ALBUTEROL SULFATE 2.5 MG/3 ML NEBU. NEB PRN (03:04)
[2018-08-07 07:00] VITALS: BP 116/57
[2018-08-07] MEDS: IPRATRPIUM/ALBUTEROL 0.5/2.5MG 3 ML NEBU. NEB SCH ×4 (07:27→19:34)
[2018-08-07] MEDS: CHOLECALCIFEROL (VITAMIN D3) 1,000 UNIT TABLET PO SCH ×2 (09:09→18:00)
[2018-08-07] MEDS: CLOPIDOGREL BISULFATE 75 MG TABLET PO SCH (09:09)
[2018-08-07] MEDS: FUROSEMIDE 20 MG TABLET PO SCH (09:09)
[2018-08-07] MEDS: ASPIRIN ENTERIC COATED 325 MG TABLET.DR. PO SCH (09:09)
[2018-08-07] MEDS: LISINOPRIL 10 MG TABLET PO SCH (09:10)
[2018-08-07 11:04] VITALS: BP 116/58
--- NOTE | 2018-08-07 11:31 | PDOC ---
PROGRESS NOTES Chief Complaint Chief Complaint SOA. Abnormal CT chest revealing right upper lobe infiltrate compared to the film 06/27 s/p bronch (`08/05/18) Indwelling pacer Chronic A.fib Undernourished-BMI 15.3/Cachexia Hx bulimia Hypoxic respiratory failure Questionable hx COPD Indwelling PEG sec to SEVERE GASTROPARESIS hypotension responsive to fluids History of Present Illness History of Present Illness Bronch Results noted Discussed with Appreciate pulmonary Continue IV Levaquin and follow cultures Patient ate some pizza yesterday and vomited Did advise her to go slow, she is a known gastroparesis hence the indwelling G or J-tube Called by RN because of hypotension, asymptomatic Patient is cachectic, tends to run low Plan: Status post IV fluid bolus 1 L and normal saline 100 mL an hour with good response DC current IVF, history of CHF Just to boluses when necessary Back down to liquid diet Continue tube feeds per patient Continue IV Levaquin Follow cultures PT OT She is not interested yet in hospice or palliative Vitals Vitals Vital Signs Date Time Temp Pulse Resp B/P (MAP) Pulse Ox O2 Delivery O2 Flow Rate FiO2 08/07/18 11:04 98.0 76 16 116/58 (77) 97 Nasal Cannula 3.0 98.0 Physical Exam General: Alert, Oriented X3, Cooperative Heart: Regular rate (SR with LBBB), Normal S1, Normal S2, Other (4/6 systolic murmur to apex) Lungs: Crackles Abdomen: Soft, No tenderness, Other (PEG tube) Extremities: No cyanosis, No edema Skin: No breakdown, No significant lesion Review of Systems Review of Systems Asleep I did not awaken Assessment and Plan Assessmemt and Plan Problems Medical Problems: (1) CHF (congestive heart failure) Status: Acute (2) COPD (chronic obstructive pulmonary disease) Status: Acute Comment Review of Relevant I have reviewed the following items loren (where applicable) has been applied. Labs Laboratory Tests Test 08/06/18 07:40 08/06/18 07:44 White Blood Count 7.6 x10^3/uL (4.0-11.0) Red Blood Count 4.11 x10^6/uL (3.50-5.40) Hemoglobin 12.4 g/dL (12.0-15.5) Hematocrit 37.0 % (36.0-47.0) Mean Corpuscular Volume 90 fL (79-100) Mean Corpuscular Hemoglobin 30 pg (25-35) Mean Corpuscular Hemoglobin Concent 34 g/dL (31-37) Red Cell Distribution Width 14.0 % (11.5-14.5) Platelet Count 193 x10^3/uL (140-400) Neutrophils (%) (Auto) 60 % (31-73) Lymphocytes (%) (Auto) 22 % (24-48) Monocytes (%) (Auto) 6 % (0-9) Eosinophils (%) (Auto) 12 % (0-3) Basophils (%) (Auto) 0 % (0-3) Neutrophils # (Auto) 4.5 x10^3uL (1.8-7.7) Lymphocytes # (Auto) 1.7 x10^3/uL (1.0-4.8) Monocytes # (Auto) 0.4 x10^3/uL (0.0-1.1) Eosinophils # (Auto) 0.9 x10^3/uL (0.0-0.7) Basophils # (Auto) 0.0 x10^3/uL (0.0-0.2) Erythrocyte Sedimentation Rate 11 (0-25) Sodium Level 140 mmol/L (136-145) Potassium Level 3.9 mmol/L (3.5-5.1) Chloride Level 102 mmol/L (98-107) Carbon Dioxide Level 34 mmol/L (21-32) Anion Gap 4 (6-14) Blood Urea Nitrogen 21 mg/dL (7-20) Creatinine 0.8 mg/dL (0.6-1.0) Estimated GFR (Cockcroft-Gault) 84.8 BUN/Creatinine Ratio 26 (6-20) Glucose Level 91 mg/dL (70-99) Calcium Level 9.1 mg/dL (8.5-10.1) Total Bilirubin 0.5 mg/dL (0.2-1.0) Aspartate Amino Transf (AST/SGOT) 11 U/L (15-37) Alanine Aminotransferase (ALT/SGPT) 13 U/L (14-59) Alkaline Phosphatase 93 U/L (46-116) Total Protein 5.6 g/dL (6.4-8.2) Albumin 2.6 g/dL (3.4-5.0) Albumin/Globulin Ratio 0.9 (1.0-1.7) Microbiology 08/05/18 AFB Specimen Processing Tissue - Final, Resulted 08/05/18 Acid Fast Bacilli Culture, Resulted Pending 08/05/18 Gram Stain - Final, Resulted 08/05/18 Fungal Culture, Resulted Pending 08/05/18 Fungal Culture Result 1, Resulted Pending Medications Current Medications Albuterol/ Ipratropium (Duoneb) 3 ml 1X ONCE NEB Last administered on at 02:08; Start 08/04/18 at 02:00; Stop 08/04/18 at 02:01; Status DC Ondansetron HCl (Zofran) 4 mg 1X ONCE IV Last administered on 08/04/18at 02:18 ; Start 08/04/18 at 02:15; Stop 08/04/18 at 02:20; Status DC Ondansetron HCl (Zofran) 4 mg PRN Q8HRS PRN IV NAUSEA/VOMITING; Start at 02:45; Stop 08/04/18 at 08:33; Status DC Acetaminophen (Tylenol) 650 mg PRN Q4HRS PRN PO FEVER; Start 08/04/18 at 02:45 ; Stop 08/05/18 at 02:45; Status DC Prednisone (Prednisone) 50 mg 1X ONCE PO Last administered on 08/04/18at 02:57 ; Start 08/04/18 at 02:45; Stop 08/04/18 at 02:46; Status DC Levofloxacin (Levaquin) 500 mg 1X ONCE PO Last administered on 08/04/18at 02: 58; Start 08/04/18 at 02:45; Stop 08/04/18 at 02:46; Status DC Albuterol/ Ipratropium (Duoneb) 3 ml PRN Q4HRS PRN NEB dyspnea or wheezing.; Start 08/04/18 at 02:45; Stop 08/04/18 at 02:45; Status DC Albuterol Sulfate (Ventolin Neb Soln) 2.5 mg PRN Q4HRS PRN NEB dyspnea or wheezing. Last administered on 08/07/18at 03:04; Start 08/04/18 at 02:45 Influenza Virus Vaccine (Afluria Trivalent [id number] Syringe) 0.5 ml ONCE ONCE VAX IM Last administered on 08/04/18 09:31; Start 08/04/18 at 09:00; Stop 08/04/18 at 09:01; Status DC Ondansetron HCl (Zofran) 4 mg PRN Q6HRS PRN IV NAUSEA/VOMITING Last administered on 08/06/18 17:30; Start 08/04/18 at 08:45 Albuterol/ Ipratropium (Duoneb) 3 ml RTQID NEB Last administered on 08/07/18 07:27; Start 08/04/18 at 09:00 Guaifenesin (Robitussin Dm) 10 ml PRN Q6HRS PRN PO COUGH; Start 08/04/18 at 08 :45 Aspirin (Ecotrin) 325 mg DAILY PO Last administered on 08/07/18 09:09; Start 08/04/18 at 09:00 Atorvastatin Calcium (Lipitor) 40 mg HS PO Last administered on 08/05/18at 20: 05; Start 08/04/18 at 21:00 Carvedilol (Coreg) 6.25 mg BIDWMEALS PO Last administered on 08/06/18 08:31; Start 08/04/18 at 09:00; Stop 08/06/18 at 11:30; Status DC Clopidogrel Bisulfate (Plavix) 75 mg DAILY PO Last administered on 08/07/18 09:09; Start 08/04/18 at 09:00 Furosemide (Lasix) 40 mg DAILY PO Last administered on 08/06/18 08:31; Start 08/04/18 at 09:00; Stop 08/06/18 at 11:30; Status DC Lisinopril (Prinivil) 20 mg DAILY PO Last administered on 08/06/18 08:31; Start 08/04/18 at 09:00; Stop 08/06/18 at 11:30; Status DC Tramadol HCl (Ultram) 50 mg PRN Q6HRS PRN PO PAIN Last administered on 08:30; Start 08/04/18 at 08:45 Vitamin D (Vitamin D3) 2,000 unit BIDAFTMEAL PO Last administered on 09:09; Start 08/04/18 at 09:00 Ondansetron HCl (Zofran Odt) 4 mg PRN Q8HRS PRN PO NAUSEA/VOMITING; Start at 08:45 Pantoprazole Sodium (Protonix) 40 mg PRN DAILY PRN PO HEARBURN/GAS; Start at 07:30 Guaifenesin (Robitussin Dm) 10 ml PRN Q6HRS PRN PO COUGH; Start 08/04/18 at 08 :45; Status UNV Sodium Chloride (Normal Saline Flush) 3 ml QSHIFT PRN IV AFTER MEDS AND BLOOD DRAWS; Start 08/05/18 at 08:45 Lidocaine HCl 100 ml PRN 1X PRN MM MOUTH PAIN Last administered on 08/05/18at 12:28; Start 08/05/18 at 08:45; Stop 08/06/18 at 08:44; Status DC Lidocaine HCl (Lidocaine 1% 50ml Vial) 50 ml PRN 1X PRN INJ SEE COMMENTS Last administered on 08/05/18at 12:28; Start 08/05/18 at 08:45; Stop 08/06/18 at 08 :44; Status DC Epinephrine HCl (Adrenalin) 1 mg PRN 1X PRN INJ SEE COMMENTS; Start 08/05/18 at 08:45; Stop 08/06/18 at 08:44; Status DC Lidocaine HCl 50 ml PRN 1X PRN MM SEE COMMENTS Last administered on 08/05/18at 12:27; Start 08/05/18 at 08:45; Stop 08/06/18 at 08:44; Status DC Epinephrine HCl (Adrenalin) 1 mg STK-MED ONCE .ROUTE ; Start 08/05/18 at 08:48 ; Stop 08/05/18 at 08:49; Status DC Lidocaine HCl (Lidocaine 1% 50ml Vial) 50 ml STK-MED ONCE .ROUTE ; Start at 08:49; Stop 08/05/18 at 08:50; Status DC Lidocaine HCl 100 ml STK-MED ONCE .ROUTE ; Start 08/05/18 at 08:49; Stop 08/05 at 08:50; Status DC Lidocaine HCl 50 ml STK-MED ONCE .ROUTE ; Start 08/05/18 at 08:49; Stop at 08:50; Status DC Ringer's Solution 1,000 ml @ 100 mls/hr Q10H IV Last administered on at 08:43; Start 08/05/18 at 11:45; Stop 08/06/18 at 09:18; Status DC Propofol 0 ml @ As Directed STK-MED ONCE IV ; Start 08/05/18 at 12:09; Stop at 12:10; Status DC Ondansetron HCl (Zofran) 4 mg PRN Q6HRS PRN IV NAUSEA/VOMITING; Start at 12:15; Stop 08/06/18 at 12:14; Status DC Fentanyl Citrate (Fentanyl 2ml Vial) 25 mcg PRN Q5MIN PRN IV MILD PAIN; Start 08/05/18 at 12:15; Stop 08/06/18 at 12:14; Status DC Fentanyl Citrate (Fentanyl 2ml Vial) 50 mcg PRN Q5MIN PRN IV MODERATE TO SEVERE PAIN; Start 08/05/18 at 12:15; Stop 08/06/18 at 12:14; Status DC Morphine Sulfate (Morphine Sulfate) 1 mg PRN Q10MIN PRN IV SEVERE PAIN; Start 08/05/18 at 12:15; Stop 08/06/18 at 12:14; Status DC Ringer's Solution 1,000 ml @ 30 mls/hr Q24H IV ; Start 08/05/18 at 12:12; Stop 08/06/18 at 00:11; Status DC Lidocaine HCl (Xylocaine-Mpf 1% 2ml Vial) 2 ml 1X PRN PRN ID IV START; Start 08/05/18 at 12:15; Stop 08/06/18 at 12:14; Status DC Hydromorphone HCl (Dilaudid) 0.5 mg PRN Q10MIN PRN IV SEV PAIN, Second choice; Start 08/05/18 at 12:15; Stop 08/06/18 at 12:14; Status DC Prochlorperazine Edisylate (Compazine) 5 mg PACU PRN PRN IV NAUSEA, MRX1; Start 08/05/18 at 12:15; Stop 08/06/18 at 12:14; Status DC Etomidate (Amidate) 20 mg STK-MED ONCE IV ; Start 08/05/18 at 12:00; Stop at 09:05; Status DC Sodium Chloride 1,000 ml @ 100 mls/hr Q10H IV Last administered on 08/06/18at 13:01; Start 08/06/18 at 11:30; Stop 08/07/18 at 06:49; Status DC Sodium Chloride 500 ml @ 500 mls/hr 1X ONCE IV Last administered on at 11:30; Start 08/06/18 at 11:30; Stop 08/06/18 at 12:29; Status DC Furosemide (Lasix) 20 mg DAILY PO Last administered on 08/07/18at 09:09; Start 08/07/18 at 09:00 Lisinopril (Prinivil) 10 mg DAILY PO Last administered on 08/07/18at 09:10; Start 08/07/18 at 09:00 Meropenem 1 gm/ Sodium Chloride 100 ml @ 200 mls/hr Q8HRS IV ; Start 08/06/18 at 14:00; Status UNV Levofloxacin/ Dextrose 150 ml @ 100 mls/hr Q48H IV Last administered on at 12:58; Start 08/06/18 at 12:30 Prochlorperazine Edisylate (Compazine) 10 mg PRN Q6HRS PRN IV NAUSEA/VOMITING Last administered on 08/06/18at 20:00; Start 08/06/18 at 19:45 Lorazepam (Ativan) 1 mg PRN Q4HRS PRN IV ANXIETY / AGITATION Last administered on 08/07/18at 03:01; Start 08/06/18 at 20:00 Lactobacillus Rhamnosus (Culturelle) 1 cap BID PO ; Start 08/07/18 at 21:00; Stop 08/07/18 at 21:00; Status DC Active Scripts Active Doxycycline Hyclate 100 Mg Capsule 1 Cap PO BID Furosemide 40 Mg Tablet 40 Mg PO DAILY 30 Days Zofran (Ondansetron Hcl) 4 Mg Tablet 1 Tab PO Q8HRS PRN Reported Protonix (Pantoprazole Sodium) 20 Mg Tablet.dr 40 Mg PO PRN DAILY PRN Ultram (Tramadol Hcl) 50 Mg Tablet 50 Mg PO Q6HRS PRN Duoneb 0.5-3(2.5) Mg/3 Ml (Albuterol/Ipratropium) 3 Ml Ampul.neb 3 Ml NEB QID Atorvastatin Calcium 40 Mg Tablet 40 Mg PO HS Lisinopril 20 Mg Tablet 20 Mg PO DAILY Carvedilol 6.25 Mg Tablet 6.25 Mg PO BIDWMEALS Vitamin D (Cholecalciferol (Vitamin D3)) 2,000 Unit Capsule 2,000 Unit PO BIDAFTMEAL Aspirin Ec (Aspirin) 325 Mg Tablet. 325 Mg PO DAILY Clopidogrel (Clopidogrel Bisulfate) 75 Mg Tablet 75 Mg PO DAILY Vitals/I & O Vital Sign - Last 24 Hours 08/06/18 08/06/18 08/06/18 08/06/18 15:00 15:55 18:37 19:40 Temp 97.5 97.5 Pulse 70 Resp 20 B/P (MAP) 109/63 (78) Pulse Ox 96 O2 Delivery Nasal Cannula Room Air Room Air Nasal Cannula O2 Flow Rate 2.0 3.0 08/06/18 08/06/18 08/07/18 08/07/18 19:55 23:15 03:00 03:05 Temp 98.4 98.3 98.4 98.3 Pulse 76 77 Resp 22 16 B/P (MAP) 115/63 (80) 119/60 (79) Pulse Ox 99 92 94 99 O2 Delivery Room Air Nasal Cannula Nasal Cannula Nasal Cannula O2 Flow Rate 3.0 3.0 3.0 08/07/18 08/07/18 08/07/18 08/07/18 07:00 07:29 08:00 09:10 Temp 98.0 98.0 Pulse 76 76 Resp 16 B/P (MAP) 116/57 (76) 116/57 Pulse Ox 95 97 O2 Delivery Nasal Cannula Nasal Cannula Nasal Cannula O2 Flow Rate 3.0 3.0 3.0 08/07/18 08/07/18 10:01 11:04 Temp 98.0 98.0 Pulse 76 Resp 16 B/P (MAP) 116/58 (77) Pulse Ox 97 O2 Delivery Nasal Cannula Nasal Cannula O2 Flow Rate 3.0 3.0 Intake and Output 08/06/18 08/06/18 08/07/18 15:00 23:00 07:00 Intake Total 0 ml 1000 ml Output Total 400 ml 0 ml Balance 0 ml -400 ml 1000 ml Nutrition Consultation Dietary Evaluation: Recommendations by RD: Increase Calorie Intake, Protein supplementation Comments: TF at goal providing > 100% est needs to promote wt gain Expected Outcomes/Goals: TF tolerance wt maintainance/ possibly some gain pending on disease process Interpretation of weight loss: >20% in 1 year Malnutrition Findings: Body Fat Depletion (Non Severe: Mod to Severe Weight Status: Underweight MIRANDA MORENO MD Aug 07, 2018 11:31
--- NOTE | 2018-08-07 11:50 | PDOC ---
PULMONARY PROGRESS NOTES Subjective BETTER TODAY SOA WITH EXERTION Vitals Vital Signs Date Time Temp Pulse Resp B/P (MAP) Pulse Ox O2 Delivery O2 Flow Rate FiO2 08/07/18 11:04 98.0 76 16 116/58 (77) 97 Nasal Cannula 3.0 98.0 ROS: No Chest Pain, No Abdominal Pain General: Alert, No acute distress HEENT: Other Lungs: Crackles Cardiovascular: S1 Abdomen: Soft, Non-tender Neuro Exam: Alert Extremities: No Edema Skin: Warm Labs Laboratory Tests Test 08/06/18 07:40 08/06/18 07:44 White Blood Count 7.6 x10^3/uL (4.0-11.0) Red Blood Count 4.11 x10^6/uL (3.50-5.40) Hemoglobin 12.4 g/dL (12.0-15.5) Hematocrit 37.0 % (36.0-47.0) Mean Corpuscular Volume 90 fL (79-100) Mean Corpuscular Hemoglobin 30 pg (25-35) Mean Corpuscular Hemoglobin Concent 34 g/dL (31-37) Red Cell Distribution Width 14.0 % (11.5-14.5) Platelet Count 193 x10^3/uL (140-400) Neutrophils (%) (Auto) 60 % (31-73) Lymphocytes (%) (Auto) 22 % (24-48) Monocytes (%) (Auto) 6 % (0-9) Eosinophils (%) (Auto) 12 % (0-3) Basophils (%) (Auto) 0 % (0-3) Neutrophils # (Auto) 4.5 x10^3uL (1.8-7.7) Lymphocytes # (Auto) 1.7 x10^3/uL (1.0-4.8) Monocytes # (Auto) 0.4 x10^3/uL (0.0-1.1) Eosinophils # (Auto) 0.9 x10^3/uL (0.0-0.7) Basophils # (Auto) 0.0 x10^3/uL (0.0-0.2) Erythrocyte Sedimentation Rate 11 (0-25) Sodium Level 140 mmol/L (136-145) Potassium Level 3.9 mmol/L (3.5-5.1) Chloride Level 102 mmol/L (98-107) Carbon Dioxide Level 34 mmol/L (21-32) Anion Gap 4 (6-14) Blood Urea Nitrogen 21 mg/dL (7-20) Creatinine 0.8 mg/dL (0.6-1.0) Estimated GFR (Cockcroft-Gault) 84.8 BUN/Creatinine Ratio 26 (6-20) Glucose Level 91 mg/dL (70-99) Calcium Level 9.1 mg/dL (8.5-10.1) Total Bilirubin 0.5 mg/dL (0.2-1.0) Aspartate Amino Transf (AST/SGOT) 11 U/L (15-37) Alanine Aminotransferase (ALT/SGPT) 13 U/L (14-59) Alkaline Phosphatase 93 U/L (46-116) Total Protein 5.6 g/dL (6.4-8.2) Albumin 2.6 g/dL (3.4-5.0) Albumin/Globulin Ratio 0.9 (1.0-1.7) Medications Active Scripts Medications Dose Route/Sig Max Daily Dose Days Date Category Doxycycline Hyclate 100 Mg Capsule 1 Cap PO BID 06/23/18 Rx Protonix (Pantoprazole Sodium) 20 Mg Tablet.dr 40 Mg PO PRN DAILY PRN 06/22/18 Reported Furosemide 40 Mg Tablet 40 Mg PO DAILY 30 05/23/18 Rx Ultram (Tramadol Hcl) 50 Mg Tablet 50 Mg PO Q6HRS PRN 04/20/18 Reported Duoneb 0.5-3(2.5) Mg/3 Ml (Albuterol/Ipratropium) 3 Ml Ampul.neb 3 Ml NEB QID 04/17/18 Reported Zofran (Ondansetron Hcl) 4 Mg Tablet 1 Tab PO Q8HRS PRN 05/19/16 Rx Atorvastatin Calcium 40 Mg Tablet 40 Mg PO HS 09/24/15 Reported Lisinopril 20 Mg Tablet 20 Mg PO DAILY 09/24/15 Reported Carvedilol 6.25 Mg Tablet 6.25 Mg PO BIDWMEALS 09/24/15 Reported Vitamin D (Cholecalciferol (Vitamin D3)) 2,000 Unit Capsule 2,000 Unit PO BIDAFTMEAL 01/07/15 Reported Aspirin Ec (Aspirin) 325 Mg Tablet.dr 325 Mg PO DAILY 01/07/15 Reported Clopidogrel (Clopidogrel Bisulfate) 75 Mg Tablet 75 Mg PO DAILY 01/07/15 Reported Impression . IMPRESSION: 1. Abnormal CT chest revealing right upper lobe infiltrate compared to the film of June of 2016 and it has increased in size. 2. Protein malnutrition, present upon admission. 3. Status post percutaneous endoscopic gastrostomy placement for dysphagia and bulimia. 4. Cardiomyopathy, ejection fraction 10%-15%. 5. Chronic obstructive pulmonary disease, unknown FEV1. BAL BRONCHIAL GRAM STAIN Final WBCS FEW RBCS FEW GRAM POSITIVE COCCI FEW GRAM POSITIVE RODS OCCASIONAL YEAST OCCASIONAL SQUAMOUS EPITHELIAL CELLS FEW AFB SPECIMEN PROCESSING Final Concentration AFB CULTURE FINAL PENDING AFB CULTURE GRAM STAIN Final Negative Performed at: DA - [facility] [address], [place], [place] [id number] Freight Caller: EDWIN Marie MD, Phone: [phone] FUNGAL CULTURE,OTHER PENDING PEMA CULT RES 1 Plan . FOLLOW UP ON CULTURE EMPIRIC ANTIBX CONTINUE THE SAME INCREASE ORAL INTAKE REGGIE CONTRERAS MD Aug 07, 2018 11:50
[2018-08-07 15:00] VITALS: BP 102/52
[2018-08-07 19:00] VITALS: BP 129/68
[2018-08-07] MEDS: ATORVASTATIN CALCIUM 40 MG TABLET. PO SCH (19:53)
[2018-08-07] MEDS ORDERED: LACTOBACILLUS RHAMNOSUS GG 1 CAPSULE. PO SCH (21:00)
[2018-08-07 22:33] VITALS: BP 131/71
[2018-08-08 03:00] VITALS: BP 103/57
[2018-08-08 07:00] VITALS: BP 124/71
[2018-08-08] MEDS: IPRATRPIUM/ALBUTEROL 0.5/2.5MG 3 ML NEBU. NEB SCH ×4 (07:23→19:36)
[2018-08-08] MEDS: ASPIRIN ENTERIC COATED 325 MG TABLET.DR. PO SCH (09:43)
[2018-08-08] MEDS: CLOPIDOGREL BISULFATE 75 MG TABLET PO SCH (09:43)
[2018-08-08] MEDS: LISINOPRIL 10 MG TABLET PO SCH (09:43)
[2018-08-08] MEDS: CHOLECALCIFEROL (VITAMIN D3) 1,000 UNIT TABLET PO SCH ×2 (09:43→17:31)
[2018-08-08] MEDS: FUROSEMIDE 20 MG TABLET PO SCH (09:43)
[2018-08-08 11:00] VITALS: BP 99/45
--- NOTE | 2018-08-08 11:05 | PDOC ---
PROGRESS NOTES Chief Complaint Chief Complaint SOA. Abnormal CT chest revealing right upper lobe infiltrate compared to the film 06/27 s/p bronch (`08/05/18) - ff up/routine orquidea Indwelling pacer Chronic A.fib Undernourished-BMI 15.3/Cachexia Hx bulimia Hypoxic respiratory failure Questionable hx COPD Indwelling PEG sec to SEVERE GASTROPARESIS hypotension responsive to fluids History of Present Illness History of Present Illness Bronch Results noted - some respi orquidea Other results still pending SOme hypotension thursday that rsoved with IVF Cautious on hydration, hx CHF - though she is very dry and cachectic NOt interested in palliative/hospice yet She does her TF at home HAs PEG bec of severe gastroparesis hx PLAN: Continue IV Levaquin and follow bronch cultures COnt TF Boluses prn for hypotension - TSH and cortisol normal) Nutrtional supplements HOme on dc - she would like to remain independent Vitals Vitals Vital Signs Date Time Temp Pulse Resp B/P (MAP) Pulse Ox O2 Delivery O2 Flow Rate FiO2 08/08/18 09:43 84 124/71 08/08/18 08:00 Nasal Cannula 3.0 08/08/18 07:24 98 08/08/18 07:00 98.4 20 98.4 Physical Exam General: Alert, Oriented X3, Cooperative Heart: Regular rate (SR with LBBB), Normal S1, Normal S2, Other (4/6 systolic murmur to apex) Lungs: Crackles Abdomen: Soft, No tenderness, Other (PEG tube) Extremities: No cyanosis, No edema Skin: No breakdown, No significant lesion Review of Systems Review of Systems A 14 point ROS was completed with the following noted as positive: Other systems reviewed and negative. \CONSTITUTIONAL: No fever or chills EYES: No recent changes SKIN: No rash or itching CARDIOVASCULAR: No chest pain, syncope, palpitations, or edema RESPIRATORY: No SOB or cough GASTROINTESTINAL: No nausea, vomiting or abdominal pain NEUROLOGICAL: No headaches or weakness ENDOCRINE: No cold or heat intolerance GENITOURINARY: No urgency or frequency of urination MUSCULOSKELETAL: No back pain or joint pain LYMPHATICS: No enlarged lymph nodes PSYCHIATRIC: No anxiety or depression Assessment and Plan Assessmemt and Plan Problems Medical Problems: (1) CHF (congestive heart failure) Status: Acute (2) COPD (chronic obstructive pulmonary disease) Status: Acute Comment Review of Relevant I have reviewed the following items loren (where applicable) has been applied. Labs Microbiology 08/05/18 AFB Specimen Processing Tissue - Final, Resulted 08/05/18 Acid Fast Bacilli Culture, Resulted Pending 08/05/18 Gram Stain - Final, Resulted 08/05/18 Fungal Culture, Resulted Pending 08/05/18 Fungal Culture Result 1, Resulted Pending Medications Current Medications Albuterol/ Ipratropium (Duoneb) 3 ml 1X ONCE NEB Last administered on at 02:08; Start 08/04/18 at 02:00; Stop 08/04/18 at 02:01; Status DC Ondansetron HCl (Zofran) 4 mg 1X ONCE IV Last administered on 08/04/18at 02:18 ; Start 08/04/18 at 02:15; Stop 08/04/18 at 02:20; Status DC Ondansetron HCl (Zofran) 4 mg PRN Q8HRS PRN IV NAUSEA/VOMITING; Start at 02:45; Stop 08/04/18 at 08:33; Status DC Acetaminophen (Tylenol) 650 mg PRN Q4HRS PRN PO FEVER; Start 08/04/18 at 02:45 ; Stop 08/05/18 at 02:45; Status DC Prednisone (Prednisone) 50 mg 1X ONCE PO Last administered on 08/04/18at 02:57 ; Start 08/04/18 at 02:45; Stop 08/04/18 at 02:46; Status DC Levofloxacin (Levaquin) 500 mg 1X ONCE PO Last administered on 08/04/18at 02: 58; Start 08/04/18 at 02:45; Stop 08/04/18 at 02:46; Status DC Albuterol/ Ipratropium (Duoneb) 3 ml PRN Q4HRS PRN NEB dyspnea or wheezing.; Start 08/04/18 at 02:45; Stop 08/04/18 at 02:45; Status DC Albuterol Sulfate (Ventolin Neb Soln) 2.5 mg PRN Q4HRS PRN NEB dyspnea or wheezing. Last administered on 08/07/18at 03:04; Start 08/04/18 at 02:45 Influenza Virus Vaccine (Afluria Trivalent [id number] Syringe) 0.5 ml ONCE ONCE VAX IM Last administered on 08/04/18 09:31; Start 08/04/18 at 09:00; Stop 08/04/18 at 09:01; Status DC Ondansetron HCl (Zofran) 4 mg PRN Q6HRS PRN IV NAUSEA/VOMITING Last administered on 08/06/18 17:30; Start 08/04/18 at 08:45 Albuterol/ Ipratropium (Duoneb) 3 ml RTQID NEB Last administered on 08/08/18 07:23; Start 08/04/18 at 09:00 Guaifenesin (Robitussin Dm) 10 ml PRN Q6HRS PRN PO COUGH; Start 08/04/18 at 08 :45 Aspirin (Ecotrin) 325 mg DAILY PO Last administered on 08/08/18 09:43; Start 08/04/18 at 09:00 Atorvastatin Calcium (Lipitor) 40 mg HS PO Last administered on 08/07/18 19: 53; Start 08/04/18 at 21:00 Carvedilol (Coreg) 6.25 mg BIDWMEALS PO Last administered on 08/06/18 08:31; Start 08/04/18 at 09:00; Stop 08/06/18 at 11:30; Status DC Clopidogrel Bisulfate (Plavix) 75 mg DAILY PO Last administered on 08/08/18 09:43; Start 08/04/18 at 09:00 Furosemide (Lasix) 40 mg DAILY PO Last administered on 08/06/18 08:31; Start 08/04/18 at 09:00; Stop 08/06/18 at 11:30; Status DC Lisinopril (Prinivil) 20 mg DAILY PO Last administered on 08/06/18 08:31; Start 08/04/18 at 09:00; Stop 08/06/18 at 11:30; Status DC Tramadol HCl (Ultram) 50 mg PRN Q6HRS PRN PO PAIN Last administered on 08:30; Start 08/04/18 at 08:45 Vitamin D (Vitamin D3) 2,000 unit BIDAFTMEAL PO Last administered on 09:43; Start 08/04/18 at 09:00 Ondansetron HCl (Zofran Odt) 4 mg PRN Q8HRS PRN PO NAUSEA/VOMITING; Start at 08:45 Pantoprazole Sodium (Protonix) 40 mg PRN DAILY PRN PO HEARBURN/GAS; Start at 07:30 Guaifenesin (Robitussin Dm) 10 ml PRN Q6HRS PRN PO COUGH; Start 08/04/18 at 08 :45; Status UNV Sodium Chloride (Normal Saline Flush) 3 ml QSHIFT PRN IV AFTER MEDS AND BLOOD DRAWS; Start 08/05/18 at 08:45 Lidocaine HCl 100 ml PRN 1X PRN MM MOUTH PAIN Last administered on 08/05/18at 12:28; Start 08/05/18 at 08:45; Stop 08/06/18 at 08:44; Status DC Lidocaine HCl (Lidocaine 1% 50ml Vial) 50 ml PRN 1X PRN INJ SEE COMMENTS Last administered on 08/05/18at 12:28; Start 08/05/18 at 08:45; Stop 08/06/18 at 08 :44; Status DC Epinephrine HCl (Adrenalin) 1 mg PRN 1X PRN INJ SEE COMMENTS; Start 08/05/18 at 08:45; Stop 08/06/18 at 08:44; Status DC Lidocaine HCl 50 ml PRN 1X PRN MM SEE COMMENTS Last administered on 08/05/18at 12:27; Start 08/05/18 at 08:45; Stop 08/06/18 at 08:44; Status DC Epinephrine HCl (Adrenalin) 1 mg STK-MED ONCE .ROUTE ; Start 08/05/18 at 08:48 ; Stop 08/05/18 at 08:49; Status DC Lidocaine HCl (Lidocaine 1% 50ml Vial) 50 ml STK-MED ONCE .ROUTE ; Start at 08:49; Stop 08/05/18 at 08:50; Status DC Lidocaine HCl 100 ml STK-MED ONCE .ROUTE ; Start 08/05/18 at 08:49; Stop 08/05 at 08:50; Status DC Lidocaine HCl 50 ml STK-MED ONCE .ROUTE ; Start 08/05/18 at 08:49; Stop at 08:50; Status DC Ringer's Solution 1,000 ml @ 100 mls/hr Q10H IV Last administered on at 08:43; Start 08/05/18 at 11:45; Stop 08/06/18 at 09:18; Status DC Propofol 0 ml @ As Directed STK-MED ONCE IV ; Start 08/05/18 at 12:09; Stop at 12:10; Status DC Ondansetron HCl (Zofran) 4 mg PRN Q6HRS PRN IV NAUSEA/VOMITING; Start at 12:15; Stop 08/06/18 at 12:14; Status DC Fentanyl Citrate (Fentanyl 2ml Vial) 25 mcg PRN Q5MIN PRN IV MILD PAIN; Start 08/05/18 at 12:15; Stop 08/06/18 at 12:14; Status DC Fentanyl Citrate (Fentanyl 2ml Vial) 50 mcg PRN Q5MIN PRN IV MODERATE TO SEVERE PAIN; Start 08/05/18 at 12:15; Stop 08/06/18 at 12:14; Status DC Morphine Sulfate (Morphine Sulfate) 1 mg PRN Q10MIN PRN IV SEVERE PAIN; Start 08/05/18 at 12:15; Stop 08/06/18 at 12:14; Status DC Ringer's Solution 1,000 ml @ 30 mls/hr Q24H IV ; Start 08/05/18 at 12:12; Stop 08/06/18 at 00:11; Status DC Lidocaine HCl (Xylocaine-Mpf 1% 2ml Vial) 2 ml 1X PRN PRN ID IV START; Start 08/05/18 at 12:15; Stop 08/06/18 at 12:14; Status DC Hydromorphone HCl (Dilaudid) 0.5 mg PRN Q10MIN PRN IV SEV PAIN, Second choice; Start 08/05/18 at 12:15; Stop 08/06/18 at 12:14; Status DC Prochlorperazine Edisylate (Compazine) 5 mg PACU PRN PRN IV NAUSEA, MRX1; Start 08/05/18 at 12:15; Stop 08/06/18 at 12:14; Status DC Etomidate (Amidate) 20 mg STK-MED ONCE IV ; Start 08/05/18 at 12:00; Stop at 09:05; Status DC Sodium Chloride 1,000 ml @ 100 mls/hr Q10H IV Last administered on 08/06/18at 13:01; Start 08/06/18 at 11:30; Stop 08/07/18 at 06:49; Status DC Sodium Chloride 500 ml @ 500 mls/hr 1X ONCE IV Last administered on at 11:30; Start 08/06/18 at 11:30; Stop 08/06/18 at 12:29; Status DC Furosemide (Lasix) 20 mg DAILY PO Last administered on 08/08/18at 09:43; Start 08/07/18 at 09:00 Lisinopril (Prinivil) 10 mg DAILY PO Last administered on 08/08/18at 09:43; Start 08/07/18 at 09:00 Meropenem 1 gm/ Sodium Chloride 100 ml @ 200 mls/hr Q8HRS IV ; Start 08/06/18 at 14:00; Status UNV Levofloxacin/ Dextrose 150 ml @ 100 mls/hr Q48H IV Last administered on at 12:58; Start 08/06/18 at 12:30 Prochlorperazine Edisylate (Compazine) 10 mg PRN Q6HRS PRN IV NAUSEA/VOMITING Last administered on 08/06/18at 20:00; Start 08/06/18 at 19:45 Lorazepam (Ativan) 1 mg PRN Q4HRS PRN IV ANXIETY / AGITATION Last administered on 08/07/18at 19:54; Start 08/06/18 at 20:00 Lactobacillus Rhamnosus (Culturelle) 1 cap BID PO ; Start 08/07/18 at 21:00; Stop 08/07/18 at 21:00; Status DC Active Scripts Active Doxycycline Hyclate 100 Mg Capsule 1 Cap PO BID Furosemide 40 Mg Tablet 40 Mg PO DAILY 30 Days Zofran (Ondansetron Hcl) 4 Mg Tablet 1 Tab PO Q8HRS PRN Reported Protonix (Pantoprazole Sodium) 20 Mg Tablet.dr 40 Mg PO PRN DAILY PRN Ultram (Tramadol Hcl) 50 Mg Tablet 50 Mg PO Q6HRS PRN Duoneb 0.5-3(2.5) Mg/3 Ml (Albuterol/Ipratropium) 3 Ml Ampul.neb 3 Ml NEB QID Atorvastatin Calcium 40 Mg Tablet 40 Mg PO HS Lisinopril 20 Mg Tablet 20 Mg PO DAILY Carvedilol 6.25 Mg Tablet 6.25 Mg PO BIDWMEALS Vitamin D (Cholecalciferol (Vitamin D3)) 2,000 Unit Capsule 2,000 Unit PO BIDAFTMEAL Aspirin Ec (Aspirin) 325 Mg Tablet.dr 325 Mg PO DAILY Clopidogrel (Clopidogrel Bisulfate) 75 Mg Tablet 75 Mg PO DAILY Vitals/I & O Vital Sign - Last 24 Hours 08/07/18 08/07/18 08/07/18 08/07/18 11:04 15:00 15:29 19:00 Temp 98.0 97.8 98.1 98.0 97.8 98.1 Pulse 76 73 74 Resp 16 20 18 B/P (MAP) 116/58 (77) 102/52 (69) 129/68 (88) Pulse Ox 97 97 100 O2 Delivery Nasal Cannula Nasal Cannula Nasal Cannula Room Air O2 Flow Rate 3.0 3.0 3.0 08/07/18 08/07/18 08/07/18 08/08/18 19:35 20:00 22:33 03:00 Temp 97.7 97.9 97.7 97.9 Pulse 84 82 Resp 18 23 B/P (MAP) 131/71 (91) 103/57 (72) Pulse Ox 100 98 97 O2 Delivery Nasal Cannula Nasal Cannula Nasal Cannula Room Air O2 Flow Rate 3.0 3.0 3.0 3.0 08/08/18 08/08/18 08/08/18 08/08/18 07:00 07:24 08:00 09:43 Temp 98.4 98.4 Pulse 84 84 Resp 20 B/P (MAP) 124/71 (88) 124/71 Pulse Ox 96 98 O2 Delivery Nasal Cannula Nasal Cannula Nasal Cannula O2 Flow Rate 3.0 3.0 3.0 Intake and Output 08/07/18 08/07/18 08/08/18 15:00 23:00 07:00 Intake Total 100 ml 600 ml 310 ml Output Total 0 ml 0 ml Balance 100 ml 600 ml 310 ml Nutrition Consultation Dietary Evaluation: Recommendations by RD: Increase Calorie Intake, Protein supplementation Comments: TF at goal providing > 100% est needs to promote wt gain Expected Outcomes/Goals: TF tolerance wt maintainance/ possibly some gain pending on disease process Interpretation of weight loss: >20% in 1 year Malnutrition Findings: Body Fat Depletion (Non Severe: Mod to Severe Weight Status: Underweight MIRANDA MORENO MD Aug 08, 2018 11:05
--- NOTE | 2018-08-08 13:26 | PDOC ---
PULMONARY PROGRESS NOTES Subjective PT SLEEPY NOT MORE SOA Vitals Vital Signs Date Time Temp Pulse Resp B/P (MAP) Pulse Ox O2 Delivery O2 Flow Rate FiO2 08/08/18 11:11 100 Nasal Cannula 3.0 08/08/18 11:00 98.6 87 20 99/45 (63) 98.6 ROS: No Chest Pain, No Abdominal Pain General: Alert, No acute distress HEENT: Other Lungs: Crackles Cardiovascular: S1 Abdomen: Soft, Non-tender Neuro Exam: Alert Extremities: No Edema Skin: Warm Medications Active Scripts Medications Dose Route/Sig Max Daily Dose Days Date Category Doxycycline Hyclate 100 Mg Capsule 1 Cap PO BID 06/23/18 Rx Protonix (Pantoprazole Sodium) 20 Mg Tablet.dr 40 Mg PO PRN DAILY PRN 06/22/18 Reported Furosemide 40 Mg Tablet 40 Mg PO DAILY 30 05/23/18 Rx Ultram (Tramadol Hcl) 50 Mg Tablet 50 Mg PO Q6HRS PRN 04/20/18 Reported Duoneb 0.5-3(2.5) Mg/3 Ml (Albuterol/Ipratropium) 3 Ml Ampul.neb 3 Ml NEB QID 04/17/18 Reported Zofran (Ondansetron Hcl) 4 Mg Tablet 1 Tab PO Q8HRS PRN 05/19/16 Rx Atorvastatin Calcium 40 Mg Tablet 40 Mg PO HS 09/24/15 Reported Lisinopril 20 Mg Tablet 20 Mg PO DAILY 09/24/15 Reported Carvedilol 6.25 Mg Tablet 6.25 Mg PO BIDWMEALS 09/24/15 Reported Vitamin D (Cholecalciferol (Vitamin D3)) 2,000 Unit Capsule 2,000 Unit PO BIDAFTMEAL 01/07/15 Reported Aspirin Ec (Aspirin) 325 Mg Tablet.dr 325 Mg PO DAILY 01/07/15 Reported Clopidogrel (Clopidogrel Bisulfate) 75 Mg Tablet 75 Mg PO DAILY 01/07/15 Reported Impression . IMPRESSION: 1. Abnormal CT chest revealing right upper lobe infiltrate compared to the film of June of 2016 and it has increased in size. 2. Protein malnutrition, present upon admission. 3. Status post percutaneous endoscopic gastrostomy placement for dysphagia and bulimia. 4. Cardiomyopathy, ejection fraction 10%-15%. 5. Chronic obstructive pulmonary disease, unknown FEV1. BAL BRONCHIAL GRAM STAIN Final WBCS FEW RBCS FEW GRAM POSITIVE COCCI FEW GRAM POSITIVE RODS OCCASIONAL YEAST OCCASIONAL SQUAMOUS EPITHELIAL CELLS FEW AFB SPECIMEN PROCESSING Final Concentration AFB CULTURE FINAL PENDING AFB CULTURE GRAM STAIN Final Negative Performed at: DA - [facility] [address], [place], [place] [id number] Chief Nurse: EDWIN Marie MD, Phone: [phone] FUNGAL CULTURE,OTHER PENDING PEMA CULT RES 1 Plan . FOLLOW UP ON CULTURE SO FAR NO GROWTH EXPECT FOR YEAST NO NEED TO TREAT OK TO D/C IN AM FOLLOW UP IN MY OFFICE ORAL RX REGGIE CONTRERAS MD Aug 08, 2018 13:26
[2018-08-08 15:00] VITALS: BP 132/71
[2018-08-08 19:00] VITALS: BP 140/63
[2018-08-08] MEDS: ATORVASTATIN CALCIUM 40 MG TABLET. PO SCH (19:26)
[2018-08-08 23:00] VITALS: BP 139/74
[2018-08-08] MEDS: ALBUTEROL SULFATE 2.5 MG/3 ML NEBU. NEB PRN (23:20)
[2018-08-08] MEDS ORDERED: SODIUM CHLORIDE 0.65% NASAL SPRAY 45ML BOTTLE. NS PRN (23:30)
[2018-08-09 03:00] VITALS: BP 129/69
[2018-08-09] MEDS: ALBUTEROL SULFATE 2.5 MG/3 ML NEBU. NEB PRN (03:30)
[2018-08-09 04:33] LABS: BASO % 0 % (0-3); EOS # 1.4 x10^3/uL (0.0-0.7); EOS % 19 % (0-3); HEMATOCRIT 35.9 % (36.0-47.0); HEMOGLOBIN 12.3 g/dL (12.0-15.5); LYMPH # 1.7 x10^3/uL (1.0-4.8); LYMPH % 22 % (24-48); MEAN CORPUSCULAR HEMOGLOBIN 31 pg (25-35); MEAN CORPUSCULAR HGB CONC 34 g/dL (31-37); MEAN CORPUSCULAR VOLUME 90 fL (79-100); MONO # 0.5 x10^3/uL (0.0-1.1); MONO % 7 % (0-9); NEUT % 52 % (31-73); PLATELET COUNT 196 x10^3/uL (140-400); RED CELL DISTRIBUTION WIDTH 13.8 % (11.5-14.5); WHITE BLOOD COUNT 7.7 x10^3/uL (4.0-11.0)
[2018-08-09 07:21] VITALS: BP 142/76
[2018-08-09 07:55] LABS: % ATYL 2 % (0-0); % EOS 19 % (0-5); % LYMPHS 18 % (24-48); % MONOS 7 % (0-10); % SEGS 54 % (35-66); PLT ESTIMATE ADEQUATE (ADEQUATE)
[2018-08-09] MEDS: IPRATRPIUM/ALBUTEROL 0.5/2.5MG 3 ML NEBU. NEB SCH ×4 (08:05→20:10)
--- NOTE | 2018-08-09 09:17 | PDOC ---
PULMONARY PROGRESS NOTES Subjective PT DOES NOT FEEL WELL Vitals Vital Signs Date Time Temp Pulse Resp B/P (MAP) Pulse Ox O2 Delivery O2 Flow Rate FiO2 08/09/18 08:07 97 Nasal Cannula 3.0 08/09/18 07:21 98.8 87 16 142/76 (98) 98.8 ROS: No Chest Pain, No Abdominal Pain General: Alert, No acute distress HEENT: Other Lungs: Crackles Cardiovascular: S1 Abdomen: Soft, Non-tender Neuro Exam: Alert Extremities: No Edema Skin: Warm Labs Laboratory Tests Test 08/09/18 03:55 White Blood Count 7.7 x10^3/uL (4.0-11.0) Red Blood Count 4.00 x10^6/uL (3.50-5.40) Hemoglobin 12.3 g/dL (12.0-15.5) Hematocrit 35.9 % (36.0-47.0) Mean Corpuscular Volume 90 fL (79-100) Mean Corpuscular Hemoglobin 31 pg (25-35) Mean Corpuscular Hemoglobin Concent 34 g/dL (31-37) Red Cell Distribution Width 13.8 % (11.5-14.5) Platelet Count 196 x10^3/uL (140-400) Neutrophils (%) (Auto) 52 % (31-73) Lymphocytes (%) (Auto) 22 % (24-48) Monocytes (%) (Auto) 7 % (0-9) Eosinophils (%) (Auto) 19 % (0-3) Basophils (%) (Auto) 0 % (0-3) Neutrophils # (Auto) 4.0 x10^3uL (1.8-7.7) Lymphocytes # (Auto) 1.7 x10^3/uL (1.0-4.8) Monocytes # (Auto) 0.5 x10^3/uL (0.0-1.1) Eosinophils # (Auto) 1.4 x10^3/uL (0.0-0.7) Basophils # (Auto) 0.0 x10^3/uL (0.0-0.2) Segmented Neutrophils % 54 % (35-66) Lymphocytes % 18 % (24-48) Atypical Lymphocytes % (Manual) 2 % (0-0) Monocytes % 7 % (0-10) Eosinophils % 19 % (0-5) Platelet Estimate Adequate (ADEQUATE) Thyroid Stimulating Hormone (TSH) 1.045 uIU/mL (0.358-3.74) Laboratory Tests Test 08/09/18 03:55 White Blood Count 7.7 x10^3/uL (4.0-11.0) Red Blood Count 4.00 x10^6/uL (3.50-5.40) Hemoglobin 12.3 g/dL (12.0-15.5) Hematocrit 35.9 % (36.0-47.0) Mean Corpuscular Volume 90 fL (79-100) Mean Corpuscular Hemoglobin 31 pg (25-35) Mean Corpuscular Hemoglobin Concent 34 g/dL (31-37) Red Cell Distribution Width 13.8 % (11.5-14.5) Platelet Count 196 x10^3/uL (140-400) Neutrophils (%) (Auto) 52 % (31-73) Lymphocytes (%) (Auto) 22 % (24-48) Monocytes (%) (Auto) 7 % (0-9) Eosinophils (%) (Auto) 19 % (0-3) Basophils (%) (Auto) 0 % (0-3) Neutrophils # (Auto) 4.0 x10^3uL (1.8-7.7) Lymphocytes # (Auto) 1.7 x10^3/uL (1.0-4.8) Monocytes # (Auto) 0.5 x10^3/uL (0.0-1.1) Eosinophils # (Auto) 1.4 x10^3/uL (0.0-0.7) Basophils # (Auto) 0.0 x10^3/uL (0.0-0.2) Segmented Neutrophils % 54 % (35-66) Lymphocytes % 18 % (24-48) Atypical Lymphocytes % (Manual) 2 % (0-0) Monocytes % 7 % (0-10) Eosinophils % 19 % (0-5) Platelet Estimate Adequate (ADEQUATE) Thyroid Stimulating Hormone (TSH) 1.045 uIU/mL (0.358-3.74) Medications Active Scripts Medications Dose Route/Sig Max Daily Dose Days Date Category Doxycycline Hyclate 100 Mg Capsule 1 Cap PO BID 06/23/18 Rx Protonix (Pantoprazole Sodium) 20 Mg Tablet.dr 40 Mg PO PRN DAILY PRN 06/22/18 Reported Furosemide 40 Mg Tablet 40 Mg PO DAILY 30 05/23/18 Rx Ultram (Tramadol Hcl) 50 Mg Tablet 50 Mg PO Q6HRS PRN 04/20/18 Reported Duoneb 0.5-3(2.5) Mg/3 Ml (Albuterol/Ipratropium) 3 Ml Ampul.neb 3 Ml NEB QID 04/17/18 Reported Zofran (Ondansetron Hcl) 4 Mg Tablet 1 Tab PO Q8HRS PRN 05/19/16 Rx Atorvastatin Calcium 40 Mg Tablet 40 Mg PO HS 09/24/15 Reported Lisinopril 20 Mg Tablet 20 Mg PO DAILY 09/24/15 Reported Carvedilol 6.25 Mg Tablet 6.25 Mg PO BIDWMEALS 09/24/15 Reported Vitamin D (Cholecalciferol (Vitamin D3)) 2,000 Unit Capsule 2,000 Unit PO BIDAFTMEAL 01/07/15 Reported Aspirin Ec (Aspirin) 325 Mg Tablet.dr 325 Mg PO DAILY 01/07/15 Reported Clopidogrel (Clopidogrel Bisulfate) 75 Mg Tablet 75 Mg PO DAILY 01/07/15 Reported Impression . IMPRESSION: 1. Abnormal CT chest revealing right upper lobe infiltrate compared to the film of June of 2016 and it has increased in size. 2. Protein malnutrition, present upon admission. 3. Status post percutaneous endoscopic gastrostomy placement for dysphagia and bulimia. 4. Cardiomyopathy, ejection fraction 10%-15%. 5. Chronic obstructive pulmonary disease, unknown FEV1. 6. BULLEMIA 7. CHRONIC ASPIRATION BAL BRONCHIAL GRAM STAIN Final WBCS FEW RBCS FEW GRAM POSITIVE COCCI FEW GRAM POSITIVE RODS OCCASIONAL YEAST OCCASIONAL SQUAMOUS EPITHELIAL CELLS FEW AFB SPECIMEN PROCESSING Final Concentration AFB CULTURE FINAL PENDING AFB CULTURE GRAM STAIN Final Negative Performed at: DA - [facility] [address], [place], [place] [id number] Intervention Teacher: EDWIN Marie MD, Phone: [phone] FUNGAL CULTURE,OTHER PENDING PEMA CULT RES 1 Plan . FAMILY STATED PT UNABLE TO KEEP FOOD DOWN, I DON'T THINK PATIENT IS HONEST IN HER PROVIDING INFORMATION RN HAS NOT WITNESS ANY EMESIS THIS AM PT REFUSED TO EAT BREAKFAST THIS AM WILL CONSULT SPEECH AND OBTAIN A VIDEO SWALLOW FOLLOW UP ON CULTURE SO FAR NO GROWTH EXPECT FOR YEAST NO NEED TO TREAT FOLLOW UP ON PT RECOMMENDATION FOR HOME OR SNU HOPEFULLY HOME IN AM REGGIE CONTRERAS MD Aug 09, 2018 09:17
[2018-08-09] MEDS: ASPIRIN ENTERIC COATED 325 MG TABLET.DR. PO SCH (09:41)
[2018-08-09] MEDS: FUROSEMIDE 20 MG TABLET PO SCH (09:41)
[2018-08-09] MEDS: LISINOPRIL 10 MG TABLET PO SCH (09:41)
[2018-08-09] MEDS: CHOLECALCIFEROL (VITAMIN D3) 1,000 UNIT TABLET PO SCH ×2 (09:41→18:32)
[2018-08-09] MEDS: CLOPIDOGREL BISULFATE 75 MG TABLET PO SCH (09:42)
[2018-08-09] MEDS: traMADol 50 MG TABLET PO PRN ×2 (09:42→21:52)
[2018-08-09 11:00] VITALS: BP 140/64
[2018-08-09] MEDS ORDERED: LEVO250T7 PO (11:27)
--- NOTE | 2018-08-09 11:40 | PDOC ---
PROGRESS NOTES Chief Complaint Chief Complaint SOA. Abnormal CT chest revealing right upper lobe infiltrate compared to the film 06/27 s/p bronch (`08/05/18) - ff up/routine orquidea Indwelling pacer Chronic A.fib Undernourished-BMI 15.3/Cachexia Hx bulimia Hypoxic respiratory failure Questionable hx COPD Indwelling PEG sec to SEVERE GASTROPARESIS hypotension responsive to fluids fell today, 08/09, right chest wall pain, will try lidoderm patch, History of Present Illness History of Present Illness Bronch Results noted - some respi orquidea Other results still pending SOme hypotension thursday that rsoved with IVF Cautious on hydration, hx CHF - though she is very dry and cachectic NOt interested in palliative/hospice yet She does her TF at home HAs PEG bec of severe gastroparesis hx Gen surg consult, GI consult, vomiting and reflux from G tube, poor nutrition, may need J tube COnt TF aspiration pneumonitis, persits, Vitals Vitals Vital Signs Date Time Temp Pulse Resp B/P (MAP) Pulse Ox O2 Delivery O2 Flow Rate FiO2 08/09/18 11:00 98.9 93 16 140/64 (89) 96 Nasal Cannula 3.0 98.9 Physical Exam General: Alert, Oriented X3, Cooperative Heart: Regular rate (SR with LBBB), Normal S1, Normal S2, Other (4/6 systolic murmur to apex) Lungs: Crackles Abdomen: Soft, No tenderness, Other (PEG tube) Extremities: No cyanosis, No edema Skin: No breakdown, No significant lesion Labs LABS Laboratory Tests Test 08/09/18 03:55 White Blood Count 7.7 x10^3/uL (4.0-11.0) Red Blood Count 4.00 x10^6/uL (3.50-5.40) Hemoglobin 12.3 g/dL (12.0-15.5) Hematocrit 35.9 % (36.0-47.0) Mean Corpuscular Volume 90 fL (79-100) Mean Corpuscular Hemoglobin 31 pg (25-35) Mean Corpuscular Hemoglobin Concent 34 g/dL (31-37) Red Cell Distribution Width 13.8 % (11.5-14.5) Platelet Count 196 x10^3/uL (140-400) Neutrophils (%) (Auto) 52 % (31-73) Lymphocytes (%) (Auto) 22 % (24-48) Monocytes (%) (Auto) 7 % (0-9) Eosinophils (%) (Auto) 19 % (0-3) Basophils (%) (Auto) 0 % (0-3) Neutrophils # (Auto) 4.0 x10^3uL (1.8-7.7) Lymphocytes # (Auto) 1.7 x10^3/uL (1.0-4.8) Monocytes # (Auto) 0.5 x10^3/uL (0.0-1.1) Eosinophils # (Auto) 1.4 x10^3/uL (0.0-0.7) Basophils # (Auto) 0.0 x10^3/uL (0.0-0.2) Segmented Neutrophils % 54 % (35-66) Lymphocytes % 18 % (24-48) Atypical Lymphocytes % (Manual) 2 % (0-0) Monocytes % 7 % (0-10) Eosinophils % 19 % (0-5) Platelet Estimate Adequate (ADEQUATE) Thyroid Stimulating Hormone (TSH) 1.045 uIU/mL (0.358-3.74) Cortisol AM Sample 17.3 ug/dL (4.3-22.4) Assessment and Plan Assessmemt and Plan Problems Medical Problems: (1) CHF (congestive heart failure) Status: Acute (2) COPD (chronic obstructive pulmonary disease) Status: Acute Comment Review of Relevant I have reviewed the following items loren (where applicable) has been applied. Labs Laboratory Tests Test 08/09/18 03:55 White Blood Count 7.7 x10^3/uL (4.0-11.0) Red Blood Count 4.00 x10^6/uL (3.50-5.40) Hemoglobin 12.3 g/dL (12.0-15.5) Hematocrit 35.9 % (36.0-47.0) Mean Corpuscular Volume 90 fL (79-100) Mean Corpuscular Hemoglobin 31 pg (25-35) Mean Corpuscular Hemoglobin Concent 34 g/dL (31-37) Red Cell Distribution Width 13.8 % (11.5-14.5) Platelet Count 196 x10^3/uL (140-400) Neutrophils (%) (Auto) 52 % (31-73) Lymphocytes (%) (Auto) 22 % (24-48) Monocytes (%) (Auto) 7 % (0-9) Eosinophils (%) (Auto) 19 % (0-3) Basophils (%) (Auto) 0 % (0-3) Neutrophils # (Auto) 4.0 x10^3uL (1.8-7.7) Lymphocytes # (Auto) 1.7 x10^3/uL (1.0-4.8) Monocytes # (Auto) 0.5 x10^3/uL (0.0-1.1) Eosinophils # (Auto) 1.4 x10^3/uL (0.0-0.7) Basophils # (Auto) 0.0 x10^3/uL (0.0-0.2) Segmented Neutrophils % 54 % (35-66) Lymphocytes % 18 % (24-48) Atypical Lymphocytes % (Manual) 2 % (0-0) Monocytes % 7 % (0-10) Eosinophils % 19 % (0-5) Platelet Estimate Adequate (ADEQUATE) Thyroid Stimulating Hormone (TSH) 1.045 uIU/mL (0.358-3.74) Cortisol AM Sample 17.3 ug/dL (4.3-22.4) Laboratory Tests Test 08/09/18 03:55 White Blood Count 7.7 x10^3/uL (4.0-11.0) Red Blood Count 4.00 x10^6/uL (3.50-5.40) Hemoglobin 12.3 g/dL (12.0-15.5) Hematocrit 35.9 % (36.0-47.0) Mean Corpuscular Volume 90 fL (79-100) Mean Corpuscular Hemoglobin 31 pg (25-35) Mean Corpuscular Hemoglobin Concent 34 g/dL (31-37) Red Cell Distribution Width 13.8 % (11.5-14.5) Platelet Count 196 x10^3/uL (140-400) Neutrophils (%) (Auto) 52 % (31-73) Lymphocytes (%) (Auto) 22 % (24-48) Monocytes (%) (Auto) 7 % (0-9) Eosinophils (%) (Auto) 19 % (0-3) Basophils (%) (Auto) 0 % (0-3) Neutrophils # (Auto) 4.0 x10^3uL (1.8-7.7) Lymphocytes # (Auto) 1.7 x10^3/uL (1.0-4.8) Monocytes # (Auto) 0.5 x10^3/uL (0.0-1.1) Eosinophils # (Auto) 1.4 x10^3/uL (0.0-0.7) Basophils # (Auto) 0.0 x10^3/uL (0.0-0.2) Segmented Neutrophils % 54 % (35-66) Lymphocytes % 18 % (24-48) Atypical Lymphocytes % (Manual) 2 % (0-0) Monocytes % 7 % (0-10) Eosinophils % 19 % (0-5) Platelet Estimate Adequate (ADEQUATE) Thyroid Stimulating Hormone (TSH) 1.045 uIU/mL (0.358-3.74) Cortisol AM Sample 17.3 ug/dL (4.3-22.4) Microbiology 08/05/18 AFB Specimen Processing Tissue - Final, Resulted 08/05/18 Acid Fast Bacilli Culture, Resulted Pending 08/05/18 Gram Stain - Final, Resulted 08/05/18 Fungal Culture, Resulted Pending 08/05/18 Fungal Culture Result 1, Resulted Pending Medications Current Medications Albuterol/ Ipratropium (Duoneb) 3 ml 1X ONCE NEB Last administered on at 02:08; Start 08/04/18 at 02:00; Stop 08/04/18 at 02:01; Status DC Ondansetron HCl (Zofran) 4 mg 1X ONCE IV Last administered on 08/04/18at 02:18 ; Start 08/04/18 at 02:15; Stop 08/04/18 at 02:20; Status DC Ondansetron HCl (Zofran) 4 mg PRN Q8HRS PRN IV NAUSEA/VOMITING; Start at 02:45; Stop 08/04/18 at 08:33; Status DC Acetaminophen (Tylenol) 650 mg PRN Q4HRS PRN PO FEVER; Start 08/04/18 at 02:45 ; Stop 08/05/18 at 02:45; Status DC Prednisone (Prednisone) 50 mg 1X ONCE PO Last administered on 08/04/18at 02:57 ; Start 08/04/18 at 02:45; Stop 08/04/18 at 02:46; Status DC Levofloxacin (Levaquin) 500 mg 1X ONCE PO Last administered on 08/04/18at 02: 58; Start 08/04/18 at 02:45; Stop 08/04/18 at 02:46; Status DC Albuterol/ Ipratropium (Duoneb) 3 ml PRN Q4HRS PRN NEB dyspnea or wheezing.; Start 08/04/18 at 02:45; Stop 08/04/18 at 02:45; Status DC Albuterol Sulfate (Ventolin Neb Soln) 2.5 mg PRN Q4HRS PRN NEB dyspnea or wheezing. Last administered on 08/09/18 03:30; Start 08/04/18 at 02:45 Influenza Virus Vaccine (Afluria Trivalent [id number] Syringe) 0.5 ml ONCE ONCE VAX IM Last administered on 08/04/18 09:31; Start 08/04/18 at 09:00; Stop 08/04/18 at 09:01; Status DC Ondansetron HCl (Zofran) 4 mg PRN Q6HRS PRN IV NAUSEA/VOMITING Last administered on 08/06/18at 17:30; Start 08/04/18 at 08:45 Albuterol/ Ipratropium (Duoneb) 3 ml RTQID NEB Last administered on 08/09/18 08:05; Start 08/04/18 at 09:00 Guaifenesin (Robitussin Dm) 10 ml PRN Q6HRS PRN PO COUGH Last administered on 08/08/18at 19:21; Start 08/04/18 at 08:45 Aspirin (Ecotrin) 325 mg DAILY PO Last administered on 08/09/18 09:41; Start 08/04/18 at 09:00 Atorvastatin Calcium (Lipitor) 40 mg HS PO Last administered on 08/08/18 19: 26; Start 08/04/18 at 21:00 Carvedilol (Coreg) 6.25 mg BIDWMEALS PO Last administered on 08/06/18 08:31; Start 08/04/18 at 09:00; Stop 08/06/18 at 11:30; Status DC Clopidogrel Bisulfate (Plavix) 75 mg DAILY PO Last administered on 08/09/18 09:42; Start 08/04/18 at 09:00 Furosemide (Lasix) 40 mg DAILY PO Last administered on 08/06/18at 08:31; Start 08/04/18 at 09:00; Stop 08/06/18 at 11:30; Status DC Lisinopril (Prinivil) 20 mg DAILY PO Last administered on 08/06/18at 08:31; Start 08/04/18 at 09:00; Stop 08/06/18 at 11:30; Status DC Tramadol HCl (Ultram) 50 mg PRN Q6HRS PRN PO PAIN Last administered on at 09:42; Start 08/04/18 at 08:45 Vitamin D (Vitamin D3) 2,000 unit BIDAFTMEAL PO Last administered on at 09:41; Start 08/04/18 at 09:00 Ondansetron HCl (Zofran Odt) 4 mg PRN Q8HRS PRN PO NAUSEA/VOMITING; Start at 08:45 Pantoprazole Sodium (Protonix) 40 mg PRN DAILY PRN PO HEARBURN/GAS; Start at 07:30 Guaifenesin (Robitussin Dm) 10 ml PRN Q6HRS PRN PO COUGH; Start 08/04/18 at 08 :45; Status UNV Sodium Chloride (Normal Saline Flush) 3 ml QSHIFT PRN IV AFTER MEDS AND BLOOD DRAWS; Start 08/05/18 at 08:45 Lidocaine HCl 100 ml PRN 1X PRN MM MOUTH PAIN Last administered on 08/05/18at 12:28; Start 08/05/18 at 08:45; Stop 08/06/18 at 08:44; Status DC Lidocaine HCl (Lidocaine 1% 50ml Vial) 50 ml PRN 1X PRN INJ SEE COMMENTS Last administered on 08/05/18at 12:28; Start 08/05/18 at 08:45; Stop 08/06/18 at 08 :44; Status DC Epinephrine HCl (Adrenalin) 1 mg PRN 1X PRN INJ SEE COMMENTS; Start 08/05/18 at 08:45; Stop 08/06/18 at 08:44; Status DC Lidocaine HCl 50 ml PRN 1X PRN MM SEE COMMENTS Last administered on 08/05/18at 12:27; Start 08/05/18 at 08:45; Stop 08/06/18 at 08:44; Status DC Epinephrine HCl (Adrenalin) 1 mg STK-MED ONCE .ROUTE ; Start 08/05/18 at 08:48 ; Stop 08/05/18 at 08:49; Status DC Lidocaine HCl (Lidocaine 1% 50ml Vial) 50 ml STK-MED ONCE .ROUTE ; Start at 08:49; Stop 08/05/18 at 08:50; Status DC Lidocaine HCl 100 ml STK-MED ONCE .ROUTE ; Start 08/05/18 at 08:49; Stop 08/05 at 08:50; Status DC Lidocaine HCl 50 ml STK-MED ONCE .ROUTE ; Start 08/05/18 at 08:49; Stop at 08:50; Status DC Ringer's Solution 1,000 ml @ 100 mls/hr Q10H IV Last administered on at 08:43; Start 08/05/18 at 11:45; Stop 08/06/18 at 09:18; Status DC Propofol 0 ml @ As Directed STK-MED ONCE IV ; Start 08/05/18 at 12:09; Stop at 12:10; Status DC Ondansetron HCl (Zofran) 4 mg PRN Q6HRS PRN IV NAUSEA/VOMITING; Start at 12:15; Stop 08/06/18 at 12:14; Status DC Fentanyl Citrate (Fentanyl 2ml Vial) 25 mcg PRN Q5MIN PRN IV MILD PAIN; Start 08/05/18 at 12:15; Stop 08/06/18 at 12:14; Status DC Fentanyl Citrate (Fentanyl 2ml Vial) 50 mcg PRN Q5MIN PRN IV MODERATE TO SEVERE PAIN; Start 08/05/18 at 12:15; Stop 08/06/18 at 12:14; Status DC Morphine Sulfate (Morphine Sulfate) 1 mg PRN Q10MIN PRN IV SEVERE PAIN; Start 08/05/18 at 12:15; Stop 08/06/18 at 12:14; Status DC Ringer's Solution 1,000 ml @ 30 mls/hr Q24H IV ; Start 08/05/18 at 12:12; Stop 08/06/18 at 00:11; Status DC Lidocaine HCl (Xylocaine-Mpf 1% 2ml Vial) 2 ml 1X PRN PRN ID IV START; Start 08/05/18 at 12:15; Stop 08/06/18 at 12:14; Status DC Hydromorphone HCl (Dilaudid) 0.5 mg PRN Q10MIN PRN IV SEV PAIN, Second choice; Start 08/05/18 at 12:15; Stop 08/06/18 at 12:14; Status DC Prochlorperazine Edisylate (Compazine) 5 mg PACU PRN PRN IV NAUSEA, MRX1; Start 08/05/18 at 12:15; Stop 08/06/18 at 12:14; Status DC Etomidate (Amidate) 20 mg STK-MED ONCE IV ; Start 08/05/18 at 12:00; Stop at 09:05; Status DC Sodium Chloride 1,000 ml @ 100 mls/hr Q10H IV Last administered on 08/06/18at 13:01; Start 08/06/18 at 11:30; Stop 08/07/18 at 06:49; Status DC Sodium Chloride 500 ml @ 500 mls/hr 1X ONCE IV Last administered on at 11:30; Start 08/06/18 at 11:30; Stop 08/06/18 at 12:29; Status DC Furosemide (Lasix) 20 mg DAILY PO Last administered on 08/09/18at 09:41; Start 08/07/18 at 09:00 Lisinopril (Prinivil) 10 mg DAILY PO Last administered on 08/09/18at 09:41; Start 08/07/18 at 09:00 Meropenem 1 gm/ Sodium Chloride 100 ml @ 200 mls/hr Q8HRS IV ; Start 08/06/18 at 14:00; Status UNV Levofloxacin/ Dextrose 150 ml @ 100 mls/hr Q48H IV Last administered on at 13:15; Start 08/06/18 at 12:30; Stop 08/08/18 at 13:28; Status DC Prochlorperazine Edisylate (Compazine) 10 mg PRN Q6HRS PRN IV NAUSEA/VOMITING Last administered on 08/06/18at 20:00; Start 08/06/18 at 19:45 Lorazepam (Ativan) 1 mg PRN Q4HRS PRN IV ANXIETY / AGITATION Last administered on 08/09/18at 09:40; Start 08/06/18 at 20:00 Lactobacillus Rhamnosus (Culturelle) 1 cap BID PO ; Start 08/07/18 at 21:00; Stop 08/07/18 at 21:00; Status DC Levofloxacin (Levaquin) 250 mg DAILY06 PO Last administered on 08/09/18at 06:03 ; Start 08/09/18 at 06:00 Sodium Chloride (Saline Mist Nasal) 1 yenifer PRN Q1HR PRN NS NASAL CONGESTION Last administered on 08/09/18at 06:03; Start 08/08/18 at 23:30 Active Scripts Active Levofloxacin 250 Mg Tablet 250 Mg PO DAILY06 Doxycycline Hyclate 100 Mg Capsule 1 Cap PO BID Furosemide 40 Mg Tablet 40 Mg PO DAILY 30 Days Zofran (Ondansetron Hcl) 4 Mg Tablet 1 Tab PO Q8HRS PRN Reported Protonix (Pantoprazole Sodium) 20 Mg Tablet.dr 40 Mg PO PRN DAILY PRN Ultram (Tramadol Hcl) 50 Mg Tablet 50 Mg PO Q6HRS PRN Duoneb 0.5-3(2.5) Mg/3 Ml (Albuterol/Ipratropium) 3 Ml Ampul.neb 3 Ml NEB QID Atorvastatin Calcium 40 Mg Tablet 40 Mg PO HS Lisinopril 20 Mg Tablet 20 Mg PO DAILY Carvedilol 6.25 Mg Tablet 6.25 Mg PO BIDWMEALS Vitamin D (Cholecalciferol (Vitamin D3)) 2,000 Unit Capsule 2,000 Unit PO BIDAFTMEAL Aspirin Ec (Aspirin) 325 Mg Tablet.dr 325 Mg PO DAILY Clopidogrel (Clopidogrel Bisulfate) 75 Mg Tablet 75 Mg PO DAILY Vitals/I & O Vital Sign - Last 24 Hours 08/08/18 08/08/18 08/08/18 08/08/18 15:00 15:44 19:00 19:30 Temp 98.3 98.1 98.3 98.1 Pulse 77 62 Resp 18 18 B/P (MAP) 132/71 (91) 140/63 (88) Pulse Ox 92 96 99 O2 Delivery Nasal Cannula Room Air Nasal Cannula Nasal Cannula O2 Flow Rate 3.0 3.0 10/28/18 10/28/18 10/28/18 10/29/18 19:38 23:00 23:20 03:00 Temp 99.2 99.2 99.2 99.2 Pulse 84 88 Resp 18 20 B/P (MAP) 139/74 (95) 129/69 (89) Pulse Ox 96 97 95 92 O2 Delivery Nasal Cannula Room Air Nasal Cannula Nasal Cannula O2 Flow Rate 3.0 3.0 3.0 08/09/18 08/09/18 08/09/18 08/09/18 03:30 07:21 07:53 08:07 Temp 98.8 98.8 Pulse 87 Resp 16 B/P (MAP) 142/76 (98) Pulse Ox 95 94 97 O2 Delivery Nasal Cannula Room Air Nasal Cannula Nasal Cannula O2 Flow Rate 3.0 3.0 3.0 08/09/18 08/09/18 08/09/18 09:41 09:42 11:00 Temp 98.9 98.9 Pulse 87 93 Resp 16 B/P (MAP) 142/76 140/64 (89) Pulse Ox 97 96 O2 Delivery Nasal Cannula Nasal Cannula O2 Flow Rate 3.0 3.0 Intake and Output 08/08/18 08/08/18 08/09/18 15:00 23:00 07:00 Intake Total 420 ml 620 ml 0 ml Output Total 0 ml 0 ml 0 ml Balance 420 ml 620 ml 0 ml Nutrition Consultation Dietary Evaluation: Recommendations by RD: Increase Calorie Intake, Protein supplementation Comments: TF at goal providing > 100% est needs to promote wt gain Expected Outcomes/Goals: TF tolerance wt maintainance/ possibly some gain pending on disease process Interpretation of weight loss: >20% in 1 year Malnutrition Findings: Body Fat Depletion (Non Severe: Mod to Severe Weight Status: Underweight NIKKI JANSEN MD Aug 09, 2018 11:40
[2018-08-09] MEDS: LIDOCAINE (700MG/PATCH) PATCH. TD SCH (12:14)
--- NOTE | 2018-08-09 12:24 | PDOC2 ---
LAST DEGROOT Claudette CUSHION MAKER HAND 08/09/18 1224: CONSULT Date of Consult Date of Consult DATE: 08/09/18 TIME: 12:18 Reason for Consult Reason for Consult: n/v, possible j tube Referring Physician Referring Physician: Dr [email or web address] Identification/Chief Complaint Chief Complaint SOA Source Source: Chart review, Patient History of Present Illness Reason for Visit: Here for SOA. Worsening dyspnea, SOA. Noted to have CHF, COPD on tube feeds for dysphagia there was ? gastroparesis--however indicated previous work up was negative significant trouble with nausea, emesis Past Medical History Cardiovascular: CAD, CHF, HTN, Syncope, Hyperlipidemia Pulmonary: COPD CENTRAL NERVOUS SYSTEM: Other GI: No pertinent hx, Other Heme/Onc: No pertinent hx Hepatobiliary: No pertinent hx Psych: No pertinent hx Musculoskeletal: Other Rheumatologic: No pertinent hx Infectious disease: No pertinent hx Renal/: UTI Endocrine: No pertinent hx Past Surgical History Past Surgical History: Pacemaker, Appendectomy, Hysterectomy, Other Family History Family History: Coronary Artery Disease Social History No ALCOHOL: none Drugs: None Lives: with Family Domestic Violence: Neg Current Problem List Problem List Problems Medical Problems: (1) CHF (congestive heart failure) Status: Acute (2) COPD (chronic obstructive pulmonary disease) Status: Acute Current Medications Current Medications Current Medications Albuterol/ Ipratropium (Duoneb) 3 ml 1X ONCE NEB Last administered on at 02:08; Start 08/04/18 at 02:00; Stop 08/04/18 at 02:01; Status DC Ondansetron HCl (Zofran) 4 mg 1X ONCE IV Last administered on 08/04/18at 02:18 ; Start 08/04/18 at 02:15; Stop 08/04/18 at 02:20; Status DC Ondansetron HCl (Zofran) 4 mg PRN Q8HRS PRN IV NAUSEA/VOMITING; Start at 02:45; Stop 08/04/18 at 08:33; Status DC Acetaminophen (Tylenol) 650 mg PRN Q4HRS PRN PO FEVER; Start 08/04/18 at 02:45 ; Stop 08/05/18 at 02:45; Status DC Prednisone (Prednisone) 50 mg 1X ONCE PO Last administered on 08/04/18at 02:57 ; Start 08/04/18 at 02:45; Stop 08/04/18 at 02:46; Status DC Levofloxacin (Levaquin) 500 mg 1X ONCE PO Last administered on 08/04/18at 02: 58; Start 08/04/18 at 02:45; Stop 08/04/18 at 02:46; Status DC Albuterol/ Ipratropium (Duoneb) 3 ml PRN Q4HRS PRN NEB dyspnea or wheezing.; Start 08/04/18 at 02:45; Stop 08/04/18 at 02:45; Status DC Albuterol Sulfate (Ventolin Neb Soln) 2.5 mg PRN Q4HRS PRN NEB dyspnea or wheezing. Last administered on 08/09/18 03:30; Start 08/04/18 at 02:45 Influenza Virus Vaccine (Afluria Trivalent [id number] Syringe) 0.5 ml ONCE ONCE VAX IM Last administered on 08/04/18 09:31; Start 08/04/18 at 09:00; Stop 08/04/18 at 09:01; Status DC Ondansetron HCl (Zofran) 4 mg PRN Q6HRS PRN IV NAUSEA/VOMITING Last administered on 08/06/18at 17:30; Start 08/04/18 at 08:45 Albuterol/ Ipratropium (Duoneb) 3 ml RTQID NEB Last administered on 08/09/18at 12:03; Start 08/04/18 at 09:00 Guaifenesin (Robitussin Dm) 10 ml PRN Q6HRS PRN PO COUGH Last administered on 08/08/18at 19:21; Start 08/04/18 at 08:45 Aspirin (Ecotrin) 325 mg DAILY PO Last administered on 08/09/18 09:41; Start 08/04/18 at 09:00 Atorvastatin Calcium (Lipitor) 40 mg HS PO Last administered on 08/08/18 19: 26; Start 08/04/18 at 21:00 Carvedilol (Coreg) 6.25 mg BIDWMEALS PO Last administered on 08/06/18 08:31; Start 08/04/18 at 09:00; Stop 08/06/18 at 11:30; Status DC Clopidogrel Bisulfate (Plavix) 75 mg DAILY PO Last administered on 08/09/18at 09:42; Start 08/04/18 at 09:00 Furosemide (Lasix) 40 mg DAILY PO Last administered on 08/06/18at 08:31; Start 08/04/18 at 09:00; Stop 08/06/18 at 11:30; Status DC Lisinopril (Prinivil) 20 mg DAILY PO Last administered on 08/06/18at 08:31; Start 08/04/18 at 09:00; Stop 08/06/18 at 11:30; Status DC Tramadol HCl (Ultram) 50 mg PRN Q6HRS PRN PO PAIN Last administered on 09:42; Start 08/04/18 at 08:45 Vitamin D (Vitamin D3) 2,000 unit BIDAFTMEAL PO Last administered on 09:41; Start 08/04/18 at 09:00 Ondansetron HCl (Zofran Odt) 4 mg PRN Q8HRS PRN PO NAUSEA/VOMITING; Start at 08:45 Pantoprazole Sodium (Protonix) 40 mg PRN DAILY PRN PO HEARBURN/GAS; Start at 07:30 Guaifenesin (Robitussin Dm) 10 ml PRN Q6HRS PRN PO COUGH; Start 08/04/18 at 08 :45; Status UNV Sodium Chloride (Normal Saline Flush) 3 ml QSHIFT PRN IV AFTER MEDS AND BLOOD DRAWS; Start 08/05/18 at 08:45 Lidocaine HCl 100 ml PRN 1X PRN MM MOUTH PAIN Last administered on 08/05/18at 12:28; Start 08/05/18 at 08:45; Stop 08/06/18 at 08:44; Status DC Lidocaine HCl (Lidocaine 1% 50ml Vial) 50 ml PRN 1X PRN INJ SEE COMMENTS Last administered on 08/05/18at 12:28; Start 08/05/18 at 08:45; Stop 08/06/18 at 08 :44; Status DC Epinephrine HCl (Adrenalin) 1 mg PRN 1X PRN INJ SEE COMMENTS; Start 08/05/18 at 08:45; Stop 08/06/18 at 08:44; Status DC Lidocaine HCl 50 ml PRN 1X PRN MM SEE COMMENTS Last administered on 08/05/18at 12:27; Start 08/05/18 at 08:45; Stop 08/06/18 at 08:44; Status DC Epinephrine HCl (Adrenalin) 1 mg STK-MED ONCE .ROUTE ; Start 08/05/18 at 08:48 ; Stop 08/05/18 at 08:49; Status DC Lidocaine HCl (Lidocaine 1% 50ml Vial) 50 ml STK-MED ONCE .ROUTE ; Start at 08:49; Stop 08/05/18 at 08:50; Status DC Lidocaine HCl 100 ml STK-MED ONCE .ROUTE ; Start 08/05/18 at 08:49; Stop 08/05 at 08:50; Status DC Lidocaine HCl 50 ml STK-MED ONCE .ROUTE ; Start 08/05/18 at 08:49; Stop at 08:50; Status DC Ringer's Solution 1,000 ml @ 100 mls/hr Q10H IV Last administered on at 08:43; Start 08/05/18 at 11:45; Stop 08/06/18 at 09:18; Status DC Propofol 0 ml @ As Directed STK-MED ONCE IV ; Start 08/05/18 at 12:09; Stop at 12:10; Status DC Ondansetron HCl (Zofran) 4 mg PRN Q6HRS PRN IV NAUSEA/VOMITING; Start at 12:15; Stop 08/06/18 at 12:14; Status DC Fentanyl Citrate (Fentanyl 2ml Vial) 25 mcg PRN Q5MIN PRN IV MILD PAIN; Start 08/05/18 at 12:15; Stop 08/06/18 at 12:14; Status DC Fentanyl Citrate (Fentanyl 2ml Vial) 50 mcg PRN Q5MIN PRN IV MODERATE TO SEVERE PAIN; Start 08/05/18 at 12:15; Stop 08/06/18 at 12:14; Status DC Morphine Sulfate (Morphine Sulfate) 1 mg PRN Q10MIN PRN IV SEVERE PAIN; Start 08/05/18 at 12:15; Stop 08/06/18 at 12:14; Status DC Ringer's Solution 1,000 ml @ 30 mls/hr Q24H IV ; Start 08/05/18 at 12:12; Stop 08/06/18 at 00:11; Status DC Lidocaine HCl (Xylocaine-Mpf 1% 2ml Vial) 2 ml 1X PRN PRN ID IV START; Start 08/05/18 at 12:15; Stop 08/06/18 at 12:14; Status DC Hydromorphone HCl (Dilaudid) 0.5 mg PRN Q10MIN PRN IV SEV PAIN, Second choice; Start 08/05/18 at 12:15; Stop 08/06/18 at 12:14; Status DC Prochlorperazine Edisylate (Compazine) 5 mg PACU PRN PRN IV NAUSEA, MRX1; Start 08/05/18 at 12:15; Stop 08/06/18 at 12:14; Status DC Etomidate (Amidate) 20 mg STK-MED ONCE IV ; Start 08/05/18 at 12:00; Stop at 09:05; Status DC Sodium Chloride 1,000 ml @ 100 mls/hr Q10H IV Last administered on 08/06/18at 13:01; Start 08/06/18 at 11:30; Stop 08/07/18 at 06:49; Status DC Sodium Chloride 500 ml @ 500 mls/hr 1X ONCE IV Last administered on at 11:30; Start 08/06/18 at 11:30; Stop 08/06/18 at 12:29; Status DC Furosemide (Lasix) 20 mg DAILY PO Last administered on 08/09/18at 09:41; Start 08/07/18 at 09:00 Lisinopril (Prinivil) 10 mg DAILY PO Last administered on 08/09/18at 09:41; Start 08/07/18 at 09:00 Meropenem 1 gm/ Sodium Chloride 100 ml @ 200 mls/hr Q8HRS IV ; Start 08/06/18 at 14:00; Status UNV Levofloxacin/ Dextrose 150 ml @ 100 mls/hr Q48H IV Last administered on at 13:15; Start 08/06/18 at 12:30; Stop 08/08/18 at 13:28; Status DC Prochlorperazine Edisylate (Compazine) 10 mg PRN Q6HRS PRN IV NAUSEA/VOMITING Last administered on 08/06/18at 20:00; Start 08/06/18 at 19:45 Lorazepam (Ativan) 1 mg PRN Q4HRS PRN IV ANXIETY / AGITATION Last administered on 08/09/18at 09:40; Start 08/06/18 at 20:00 Lactobacillus Rhamnosus (Culturelle) 1 cap BID PO ; Start 08/07/18 at 21:00; Stop 08/07/18 at 21:00; Status DC Levofloxacin (Levaquin) 250 mg DAILY06 PO Last administered on 08/09/18at 06:03 ; Start 08/09/18 at 06:00 Sodium Chloride (Saline Mist Nasal) 1 yenifer PRN Q1HR PRN NS NASAL CONGESTION Last administered on 08/09/18at 06:03; Start 08/08/18 at 23:30 Lidocaine (Lidoderm) 1 patch DAILY TD Last administered on 08/09/18at 12:14; Start 08/09/18 at 11:45 Miscellaneous (Lidoderm Patch Removal) 1 ea QHS MC ; Start 08/09/18 at 21:00 Active Scripts Active Levofloxacin 250 Mg Tablet 250 Mg PO DAILY06 Doxycycline Hyclate 100 Mg Capsule 1 Cap PO BID Furosemide 40 Mg Tablet 40 Mg PO DAILY 30 Days Zofran (Ondansetron Hcl) 4 Mg Tablet 1 Tab PO Q8HRS PRN Reported Protonix (Pantoprazole Sodium) 20 Mg Tablet.dr 40 Mg PO PRN DAILY PRN Ultram (Tramadol Hcl) 50 Mg Tablet 50 Mg PO Q6HRS PRN Duoneb 0.5-3(2.5) Mg/3 Ml (Albuterol/Ipratropium) 3 Ml Ampul.neb 3 Ml NEB QID Atorvastatin Calcium 40 Mg Tablet 40 Mg PO HS Lisinopril 20 Mg Tablet 20 Mg PO DAILY Carvedilol 6.25 Mg Tablet 6.25 Mg PO BIDWMEALS Vitamin D (Cholecalciferol (Vitamin D3)) 2,000 Unit Capsule 2,000 Unit PO BIDAFTMEAL Aspirin Ec (Aspirin) 325 Mg Tablet.dr 325 Mg PO DAILY Clopidogrel (Clopidogrel Bisulfate) 75 Mg Tablet 75 Mg PO DAILY Allergies Allergies: Coded Allergies: Penicillins (Verified Allergy, Intermediate, hives, 08/05/18) Sulfa (Sulfonamide Antibiotics) (Verified Allergy, Intermediate, hives, ) ROS General: No: Chills, Other (fevers) PSYCHOLOGICAL ROS: No: Anxiety, Depression Eyes: No Blurry vision, No Double vision HEENT: No: Heacaches, Sore Throat Hematological and Lymphatic: YES: Bleeding Problems; No: Blood Clots Respiratory: YES: Cough, Shortness of breath Cardiovascular: No Chest Pain, No Palpitations Gastrointestinal: Yes Other (see hpi) Genitourinary: No Dysuria, No Hematuria Musculoskeletal: No Joint Pain, No Muscle Pain Neurological: No Impaired Coord/balance, No Numbness/Tingling Skin: No Pruritus, No Rash Physical Exam General: Alert, Oriented X3, Cooperative, No acute distress, Other (frail appearing, thin) HEENT: Atraumatic, Mucous membr. moist/pink Lungs: Clear to auscultation, Normal air movement Heart: Regular rate, Normal S1, Normal S2, No murmurs Abdomen: Soft, Other (peg in place) Extremities: No clubbing, No cyanosis Skin: No rashes, No breakdown Neuro: Normal gait, Normal speech Psych/Mental Status: Mental status NL, Mood NL MUSCULOSKELETAL: No deformity, No swelling Vitals VITALS Vital Signs Date Time Temp Pulse Resp B/P (MAP) Pulse Ox O2 Delivery O2 Flow Rate FiO2 08/09/18 12:04 95 Nasal Cannula 3.0 08/09/18 11:00 98.9 93 16 140/64 (89) 98.9 Labs Labs Laboratory Tests Test 08/09/18 03:55 White Blood Count 7.7 x10^3/uL (4.0-11.0) Red Blood Count 4.00 x10^6/uL (3.50-5.40) Hemoglobin 12.3 g/dL (12.0-15.5) Hematocrit 35.9 % (36.0-47.0) Mean Corpuscular Volume 90 fL (79-100) Mean Corpuscular Hemoglobin 31 pg (25-35) Mean Corpuscular Hemoglobin Concent 34 g/dL (31-37) Red Cell Distribution Width 13.8 % (11.5-14.5) Platelet Count 196 x10^3/uL (140-400) Neutrophils (%) (Auto) 52 % (31-73) Lymphocytes (%) (Auto) 22 % (24-48) Monocytes (%) (Auto) 7 % (0-9) Eosinophils (%) (Auto) 19 % (0-3) Basophils (%) (Auto) 0 % (0-3) Neutrophils # (Auto) 4.0 x10^3uL (1.8-7.7) Lymphocytes # (Auto) 1.7 x10^3/uL (1.0-4.8) Monocytes # (Auto) 0.5 x10^3/uL (0.0-1.1) Eosinophils # (Auto) 1.4 x10^3/uL (0.0-0.7) Basophils # (Auto) 0.0 x10^3/uL (0.0-0.2) Segmented Neutrophils % 54 % (35-66) Lymphocytes % 18 % (24-48) Atypical Lymphocytes % (Manual) 2 % (0-0) Monocytes % 7 % (0-10) Eosinophils % 19 % (0-5) Platelet Estimate Adequate (ADEQUATE) Thyroid Stimulating Hormone (TSH) 1.045 uIU/mL (0.358-3.74) Cortisol AM Sample 17.3 ug/dL (4.3-22.4) Laboratory Tests Test 08/09/18 03:55 White Blood Count 7.7 x10^3/uL (4.0-11.0) Red Blood Count 4.00 x10^6/uL (3.50-5.40) Hemoglobin 12.3 g/dL (12.0-15.5) Hematocrit 35.9 % (36.0-47.0) Mean Corpuscular Volume 90 fL (79-100) Mean Corpuscular Hemoglobin 31 pg (25-35) Mean Corpuscular Hemoglobin Concent 34 g/dL (31-37) Red Cell Distribution Width 13.8 % (11.5-14.5) Platelet Count 196 x10^3/uL (140-400) Neutrophils (%) (Auto) 52 % (31-73) Lymphocytes (%) (Auto) 22 % (24-48) Monocytes (%) (Auto) 7 % (0-9) Eosinophils (%) (Auto) 19 % (0-3) Basophils (%) (Auto) 0 % (0-3) Neutrophils # (Auto) 4.0 x10^3uL (1.8-7.7) Lymphocytes # (Auto) 1.7 x10^3/uL (1.0-4.8) Monocytes # (Auto) 0.5 x10^3/uL (0.0-1.1) Eosinophils # (Auto) 1.4 x10^3/uL (0.0-0.7) Basophils # (Auto) 0.0 x10^3/uL (0.0-0.2) Segmented Neutrophils % 54 % (35-66) Lymphocytes % 18 % (24-48) Atypical Lymphocytes % (Manual) 2 % (0-0) Monocytes % 7 % (0-10) Eosinophils % 19 % (0-5) Platelet Estimate Adequate (ADEQUATE) Thyroid Stimulating Hormone (TSH) 1.045 uIU/mL (0.358-3.74) Cortisol AM Sample 17.3 ug/dL (4.3-22.4) Assessment/Plan Assessment/Plan multiple issues including, CHF, COPD ? aspiration, swallow pending peg for dysphagia? No documented gastroparesis--testing at negative? malnutrition on plavix no surgical recs at this time, will review with OLI Anthony MD 08/09/181958: CONSULT Assessment/Plan Assessment/Plan Pt seen and examined. Agree with Ms. Degroot's note Pt reports weight loss and some sx concerning for aspiration continue w/u per GI question benefit of J-tube and pt poor surgical candidate would consider change out of PEG, but defer to GI Thanks for consult! LAST DEGROOT APRN Aug 09, 2018 12:24 OLI WATTERS MD Aug 09, 2018 19:59
--- NOTE | 2018-08-09 12:36 | PDOC2 ---
GI CONSULT Reason For Consult: Reflux, with G tube HPI: HPI: 73 y/o female known to us. Admitted last week w/ abnormal chest CT, now s/p bronchoscopy. Long h/o "dysphagia" w/ past workup as below. [facility] records received from 2016: EGD - Schatzki's ring dilated to 17mm, 2 cm hiatal hernia, normal stomach, normal duodenum. Distal esophagus biopsy c/w reflux, proximal esophagus w/ increased eosinophils possibly c/w eosinophilic esophagitis. Esophagram - esophageal dysmotility. Esophageal manometry - abnormal w/ reduced esophageal compliance and functional outflow obstruction from EoE vs achalasia. She is unaware of any diagnosis of achalasia or EoE. Videoswalllow was negative for aspiration here in 2016. EGD by Dr. Emery in 07/2016: benign esophageal stricture dilated to 54Fr w/ normal stomach and duodenum. Esophageal biopsies were c/w reflux and negative for Maharaj's or malignancy. CT chest in 06/2018 noted mural thickening in mid esophagus. CTA chest later that month also noted distal esophageal wall thickening. This admission, suggestion that gastroparesis is the reason for PEG. Tells me she is unaware of any h/o gastroparesis. She recalls previous GES @ , reportedly normal. Denies n/v, anorexia, and retching. Says "I'm hungry all the time." As in the past, she describes "coughing up phlegm" - denies vomiting or regurgitation. Sometimes (not daily) food gets caught in midchest. Says she's losing weight despite PEG feeds 2-3 times daily. Also says uses PEG for meds. Per discussion w/ RN, I think PEG feeds are irregular. Reviewed chart/nursing notes - has declined more than once this admission. She refused breakfast today. No vomiting witnessed by staff. Denies reflux, heartburn, indigestion, early satiety, and bloating. Denies abd pain. Denies hematochezia, melena, diarrhea, and constipation. Thinks PEG was replaced bedside @ sometimes last year, also thinks last EGD was sometime last year. Esophageal dilations in the past as above, unclear when last performed - these helped "for awhile." Last colonoscopy w/ polyps @ in ~12/2015. No GB, liver, or pancreas history. Says breathing is "terrible." Note orders for videoswallow, TRAINMAN eval, and surgery consult re: J tube. Also has discharge orders. PMH: PMH: CAD s/p PCI, CHF, cardiomyopathy, HTN, HLD, mitral regurg, COPD, GERD, hepatic steatosis, nephrolithiasis, UTI, AICD, bony fractures, appendectomy, hysterectomy FH: Family History: CVA Social History: Smoke: No ALCOHOL: none Drugs: None ROS: GEN: Denies fevers, chills, sweats HEENT: Denies blurred vision, sore throat CV: Denies chest pain RESP: +SOA +cough GI: Per HPI : Denies hematuria, dysuria ENDO: +weight loss NEURO: Denies confusion, dizziness MSK: +weakness SKIN: Denies jaundice, pruritus Vitals: Vitals: Vital Signs Date Time Temp Pulse Resp B/P (MAP) Pulse Ox O2 Delivery O2 Flow Rate FiO2 08/09/18 11:00 98.9 93 16 140/64 (89) 96 Nasal Cannula 3.0 98.9 Labs: Labs: Laboratory Tests Test 08/09/18 03:55 White Blood Count 7.7 x10^3/uL (4.0-11.0) Red Blood Count 4.00 x10^6/uL (3.50-5.40) Hemoglobin 12.3 g/dL (12.0-15.5) Hematocrit 35.9 % (36.0-47.0) Mean Corpuscular Volume 90 fL (79-100) Mean Corpuscular Hemoglobin 31 pg (25-35) Mean Corpuscular Hemoglobin Concent 34 g/dL (31-37) Red Cell Distribution Width 13.8 % (11.5-14.5) Platelet Count 196 x10^3/uL (140-400) Neutrophils (%) (Auto) 52 % (31-73) Lymphocytes (%) (Auto) 22 % (24-48) Monocytes (%) (Auto) 7 % (0-9) Eosinophils (%) (Auto) 19 % (0-3) Basophils (%) (Auto) 0 % (0-3) Neutrophils # (Auto) 4.0 x10^3uL (1.8-7.7) Lymphocytes # (Auto) 1.7 x10^3/uL (1.0-4.8) Monocytes # (Auto) 0.5 x10^3/uL (0.0-1.1) Eosinophils # (Auto) 1.4 x10^3/uL (0.0-0.7) Basophils # (Auto) 0.0 x10^3/uL (0.0-0.2) Segmented Neutrophils % 54 % (35-66) Lymphocytes % 18 % (24-48) Atypical Lymphocytes % (Manual) 2 % (0-0) Monocytes % 7 % (0-10) Eosinophils % 19 % (0-5) Platelet Estimate Adequate (ADEQUATE) Thyroid Stimulating Hormone (TSH) 1.045 uIU/mL (0.358-3.74) Cortisol AM Sample 17.3 ug/dL (4.3-22.4) AFB SPECIMEN PROCESSING Final Concentration AFB CULTURE FINAL PENDING AFB CULTURE GRAM STAIN Final Negative Performed at: [facility] [address], [place], [place] [id number] Packing Room Supervisor: EDWIN Marie MD, Phone: [phone] FUNGAL CULTURE,OTHER PENDING PEMA CULT RES 1 PENDING BRONCH CULTURE Final Final report BRONCH RES 1 Final Yeast isolated. 2+ Request for further identification must be made within 1 week. BRONCH RES 2 Final Comment Routine respiratory orquidea 2+ BRONCHIAL GRAM STAIN Final WBCS FEW RBCS FEW GRAM POSITIVE COCCI FEW GRAM POSITIVE RODS OCCASIONAL YEAST OCCASIONAL SQUAMOUS EPITHELIAL CELLS FEW Allergies: Coded Allergies: Penicillins (Verified Allergy, Intermediate, hives, 08/05/18) Sulfa (Sulfonamide Antibiotics) (Verified Allergy, Intermediate, hives, ) Medications: Current Medications Medications (Trade) Dose Ordered Sig/Lisandra Route PRN Reason Start Time Stop Time Status Last Admin Dose Admin Levofloxacin (Levaquin) 250 mg DAILY06 PO 08/09/18 06:00 08/09/18 06:03 Sodium Chloride (Saline Mist Nasal) 1 yenifer PRN Q1HR PRN NS NASAL CONGESTION 08/08/18 23:30 08/09/18 06:03 Imaging: Imaging: CXR 08/04 IMPRESSION: 1. Patchy opacity in the right lung apex. Please see report on CT chest from 08/2018. 2. Diffuse prominence of interstitium may be secondary to mild interstitial pulmonary edema or atypical/viral infection. Bronchoscopy 08/04 BRONCH NO ENDOBRONCHIAL LESIONS NO PURULENT SECRETION Ribs/CXR 08/09 (pending) PE: GEN: NAD, thin HEENT: Atraumatic, PERRLA LUNGS: clear anteriorly, resp therapy present HEART: RRR ABD: NABS, S/ND/NT, PEG in place - bumper was loose/tightened EXTREMITY: No edema SKIN: No rashes, no jaundice NEURO/PSYCH: A & O 3, flat/depressed A/P: A/P: Abnormal chest CT s/p bronchoscopy COPD, cardiomyopathy Dysphagia - long history, unclear etiology, extensive workup per HPI GERD PEG in place - functioning, she thinks replaced last year @ [facility] CRC screen, h/o colon polyps - UTD -- Suspect historian. Tells me she does not have daily dysphagia or vomiting/retching, but instead frequently coughs up phlegm. Encouraged more regular use of PEG tube/feeds if she doesn't feel like attempting PO intake due to "phlegm." She denies h/o gastroparesis - not sure J tube would help/change things. She also denies reflux but can document h/o GERD - has PO PPI ordered PRN, will change to scheduled dosing. Await pending studies. Other per Dr. Hodges. FARHAN AKINS Aug 09, 2018 12:36
[2018-08-09] MEDS: LANSOPRAZOLE 30 MG TAB.RAP.DR FT SCH (13:08)
[2018-08-09 15:05] VITALS: BP 124/61
--- NOTE | 2018-08-09 17:26 | RAD ---
RIBS RIGHT AND PA CHEST Clinical Indication: FALL TODAY LANDED ON RIGHT SIDE NOW HAVING RIGHT SIDED RIB PAIN Comparison: AP chest, August 04, 2018. Findings: Stable left chest dual-chamber ICD. Atherosclerotic aortic arch. Cardiac size is stable. Calcified right hilar lymph node is unchanged. Right apical opacity is unchanged. No pneumothorax. Acute traumatic minimally displaced right lateral fifth rib fracture. Right upper lobe calcified granulomas. IMPRESSION: 1. Acute traumatic minimally displaced right lateral fifth rib fracture. 2. Unchanged right apical opacity. Electronically signed by: Patrick Garcia MD (08/09/2018 5:23 PM) [id number]
[2018-08-09] MEDS: HYDROcodone/APAP 5/325MG 1 TAB TABLET PO PRN ×2 (18:33→22:19)
[2018-08-09 19:00] VITALS: BP 144/76
[2018-08-09] MEDS: PATCH REMOVAL. MC SCH (21:00)
[2018-08-09] MEDS: ATORVASTATIN CALCIUM 40 MG TABLET. PO SCH (21:52)
[2018-08-09 22:50] VITALS: BP 129/65
[2018-08-10 02:39] VITALS: BP 122/59
[2018-08-10 07:30] VITALS: BP 113/86
[2018-08-10] MEDS: IPRATRPIUM/ALBUTEROL 0.5/2.5MG 3 ML NEBU. NEB SCH ×4 (07:47→21:04)
--- NOTE | 2018-08-10 09:04 | PDOC ---
LAST FONSECA PASSENGER FLAGMAN 08/10/18 0904: SURGICAL PROGRESS NOTE Subjective just back from test Vital Signs Vital Signs Date Time Temp Pulse Resp B/P (MAP) Pulse Ox O2 Delivery O2 Flow Rate FiO2 08/10/18 07:49 95 Nasal Cannula 3.0 08/10/18 07:30 98.6 84 16 113/86 (95) 98.6 I&O Intake and Output 08/10/18 07:00 Intake Total 1824 ml Balance 1824 ml Intake Oral 0 ml Tube Feeding 1824 ml # Voids 4 General: Alert, Oriented X3, Cooperative, No acute distress Abdomen: Soft Labs Laboratory Tests Test 08/09/18 03:55 White Blood Count 7.7 x10^3/uL (4.0-11.0) Red Blood Count 4.00 x10^6/uL (3.50-5.40) Hemoglobin 12.3 g/dL (12.0-15.5) Hematocrit 35.9 % (36.0-47.0) Mean Corpuscular Volume 90 fL (79-100) Mean Corpuscular Hemoglobin 31 pg (25-35) Mean Corpuscular Hemoglobin Concent 34 g/dL (31-37) Red Cell Distribution Width 13.8 % (11.5-14.5) Platelet Count 196 x10^3/uL (140-400) Neutrophils (%) (Auto) 52 % (31-73) Lymphocytes (%) (Auto) 22 % (24-48) Monocytes (%) (Auto) 7 % (0-9) Eosinophils (%) (Auto) 19 % (0-3) Basophils (%) (Auto) 0 % (0-3) Neutrophils # (Auto) 4.0 x10^3uL (1.8-7.7) Lymphocytes # (Auto) 1.7 x10^3/uL (1.0-4.8) Monocytes # (Auto) 0.5 x10^3/uL (0.0-1.1) Eosinophils # (Auto) 1.4 x10^3/uL (0.0-0.7) Basophils # (Auto) 0.0 x10^3/uL (0.0-0.2) Segmented Neutrophils % 54 % (35-66) Lymphocytes % 18 % (24-48) Atypical Lymphocytes % (Manual) 2 % (0-0) Monocytes % 7 % (0-10) Eosinophils % 19 % (0-5) Platelet Estimate Adequate (ADEQUATE) Thyroid Stimulating Hormone (TSH) 1.045 uIU/mL (0.358-3.74) Cortisol AM Sample 17.3 ug/dL (4.3-22.4) Problem List Problems Medical Problems: (1) CHF (congestive heart failure) Status: Acute (2) COPD (chronic obstructive pulmonary disease) Status: Acute Assessment/Plan GEST pending rib fx noted on xrays no surgical plans, GI following OLI WATTERS MD 08/10/18 1533: SURGICAL PROGRESS NOTE Assessment/Plan Pt seen and examined. Agree with ms. Fonseca's note Pt with c/o rib pain and some nauseas and emesis abd soft cont w/u per GI LAST FONSECA APRN Aug 10, 2018 09:04 OLI WATTERS MD Aug 10, 2018 15:33
--- NOTE | 2018-08-10 10:53 | PDOC ---
PROGRESS NOTES Chief Complaint Chief Complaint SOA. Abnormal CT chest revealing right upper lobe infiltrate compared to the film 06/27 s/p bronch (`08/05/18) - Indwelling pacer Chronic A.fib Undernourished-BMI 15.3/Cachexia Hx bulimia Hypoxic respiratory failure Questionable hx COPD Indwelling PEG sec to SEVERE GASTROPARESIS hypotension responsive to fluids fell 08/09, right chest wall pain, on lidoderm patch, needs 6 min walk History of Present Illness History of Present Illness Bronch Results noted - some respi orquidea Other results still pending SOme hypotension thursday that rsoved with IVF Cautious on hydration, hx CHF - though she is very dry and cachectic GET 08/11 She does her TF at home HAs PEG bec of severe gastroparesis hx Gen surg consult, GI Following vomiting and reflux from G tube, poor nutrition, may need J tube COnt TF aspiration pneumonitis, persists, Vitals Vitals Vital Signs Date Time Temp Pulse Resp B/P (MAP) Pulse Ox O2 Delivery O2 Flow Rate FiO2 08/10/18 08:00 Nasal Cannula 3.0 08/10/18 07:49 95 08/10/18 07:30 98.6 84 16 113/86 (95) 98.6 Physical Exam General: Alert, Oriented X3, Cooperative, No acute distress Heart: Regular rate, Normal S1, Normal S2, No murmurs Lungs: Crackles Abdomen: Soft Extremities: No clubbing, No cyanosis Skin: No rashes, No breakdown Assessment and Plan Assessmemt and Plan Problems Medical Problems: (1) CHF (congestive heart failure) Status: Acute (2) COPD (chronic obstructive pulmonary disease) Status: Acute Comment Review of Relevant I have reviewed the following items loren (where applicable) has been applied. Labs Laboratory Tests Test 08/09/18 03:55 White Blood Count 7.7 x10^3/uL (4.0-11.0) Red Blood Count 4.00 x10^6/uL (3.50-5.40) Hemoglobin 12.3 g/dL (12.0-15.5) Hematocrit 35.9 % (36.0-47.0) Mean Corpuscular Volume 90 fL (79-100) Mean Corpuscular Hemoglobin 31 pg (25-35) Mean Corpuscular Hemoglobin Concent 34 g/dL (31-37) Red Cell Distribution Width 13.8 % (11.5-14.5) Platelet Count 196 x10^3/uL (140-400) Neutrophils (%) (Auto) 52 % (31-73) Lymphocytes (%) (Auto) 22 % (24-48) Monocytes (%) (Auto) 7 % (0-9) Eosinophils (%) (Auto) 19 % (0-3) Basophils (%) (Auto) 0 % (0-3) Neutrophils # (Auto) 4.0 x10^3uL (1.8-7.7) Lymphocytes # (Auto) 1.7 x10^3/uL (1.0-4.8) Monocytes # (Auto) 0.5 x10^3/uL (0.0-1.1) Eosinophils # (Auto) 1.4 x10^3/uL (0.0-0.7) Basophils # (Auto) 0.0 x10^3/uL (0.0-0.2) Segmented Neutrophils % 54 % (35-66) Lymphocytes % 18 % (24-48) Atypical Lymphocytes % (Manual) 2 % (0-0) Monocytes % 7 % (0-10) Eosinophils % 19 % (0-5) Platelet Estimate Adequate (ADEQUATE) Thyroid Stimulating Hormone (TSH) 1.045 uIU/mL (0.358-3.74) Cortisol AM Sample 17.3 ug/dL (4.3-22.4) Microbiology 08/05/18 AFB Specimen Processing Tissue - Final, Resulted 08/05/18 Acid Fast Bacilli Culture, Resulted Pending 08/05/18 Gram Stain - Final, Resulted 08/05/18 Fungal Culture, Resulted Pending 08/05/18 Fungal Culture Result 1, Resulted Pending Medications Current Medications Albuterol/ Ipratropium (Duoneb) 3 ml 1X ONCE NEB Last administered on at 02:08; Start 08/04/18 at 02:00; Stop 08/04/18 at 02:01; Status DC Ondansetron HCl (Zofran) 4 mg 1X ONCE IV Last administered on 08/04/18at 02:18 ; Start 08/04/18 at 02:15; Stop 08/04/18 at 02:20; Status DC Ondansetron HCl (Zofran) 4 mg PRN Q8HRS PRN IV NAUSEA/VOMITING; Start at 02:45; Stop 08/04/18 at 08:33; Status DC Acetaminophen (Tylenol) 650 mg PRN Q4HRS PRN PO FEVER; Start 08/04/18 at 02:45 ; Stop 08/05/18 at 02:45; Status DC Prednisone (Prednisone) 50 mg 1X ONCE PO Last administered on 08/04/18at 02:57 ; Start 08/04/18 at 02:45; Stop 08/04/18 at 02:46; Status DC Levofloxacin (Levaquin) 500 mg 1X ONCE PO Last administered on 08/04/18at 02: 58; Start 08/04/18 at 02:45; Stop 08/04/18 at 02:46; Status DC Albuterol/ Ipratropium (Duoneb) 3 ml PRN Q4HRS PRN NEB dyspnea or wheezing.; Start 08/04/18 at 02:45; Stop 08/04/18 at 02:45; Status DC Albuterol Sulfate (Ventolin Neb Soln) 2.5 mg PRN Q4HRS PRN NEB dyspnea or wheezing. Last administered on 08/09/18at 03:30; Start 08/04/18 at 02:45 Influenza Virus Vaccine (Afluria Trivalent [id number] Syringe) 0.5 ml ONCE ONCE VAX IM Last administered on 08/04/18at 09:31; Start 08/04/18 at 09:00; Stop 08/04/18 at 09:01; Status DC Ondansetron HCl (Zofran) 4 mg PRN Q6HRS PRN IV NAUSEA/VOMITING, 1ST CHOICE Last administered on 08/06/18at 17:30; Start 08/04/18 at 08:45 Albuterol/ Ipratropium (Duoneb) 3 ml RTQID NEB Last administered on 08/10/18at 07:47; Start 08/04/18 at 09:00 Guaifenesin (Robitussin Dm) 10 ml PRN Q6HRS PRN PO COUGH Last administered on 08/08/18at 19:21; Start 08/04/18 at 08:45 Aspirin (Ecotrin) 325 mg DAILY PO Last administered on 08/09/18at 09:41; Start 08/04/18 at 09:00 Atorvastatin Calcium (Lipitor) 40 mg HS PO Last administered on 08/09/18 21: 52; Start 08/04/18 at 21:00 Carvedilol (Coreg) 6.25 mg BIDWMEALS PO Last administered on 08/06/18 08:31; Start 08/04/18 at 09:00; Stop 08/06/18 at 11:30; Status DC Clopidogrel Bisulfate (Plavix) 75 mg DAILY PO Last administered on 08/09/18at 09:42; Start 08/04/18 at 09:00 Furosemide (Lasix) 40 mg DAILY PO Last administered on 08/06/18 08:31; Start 08/04/18 at 09:00; Stop 08/06/18 at 11:30; Status DC Lisinopril (Prinivil) 20 mg DAILY PO Last administered on 08/06/18 08:31; Start 08/04/18 at 09:00; Stop 08/06/18 at 11:30; Status DC Tramadol HCl (Ultram) 50 mg PRN Q6HRS PRN PO MILD PAIN Last administered on at 21:52; Start 08/04/18 at 08:45 Vitamin D (Vitamin D3) 2,000 unit BIDAFTMEAL PO Last administered on at 18:32; Start 08/04/18 at 09:00 Ondansetron HCl (Zofran Odt) 4 mg PRN Q8HRS PRN PO NAUSEA/VOMITING; Start at 08:45 Pantoprazole Sodium (Protonix) 40 mg PRN DAILY PRN PO HEARBURN/GAS; Start at 07:30; Stop 08/09/18 at 12:37; Status DC Guaifenesin (Robitussin Dm) 10 ml PRN Q6HRS PRN PO COUGH; Start 08/04/18 at 08 :45; Status UNV Sodium Chloride (Normal Saline Flush) 3 ml QSHIFT PRN IV AFTER MEDS AND BLOOD DRAWS; Start 08/05/18 at 08:45 Lidocaine HCl 100 ml PRN 1X PRN MM MOUTH PAIN Last administered on 08/05/18at 12:28; Start 08/05/18 at 08:45; Stop 08/06/18 at 08:44; Status DC Lidocaine HCl (Lidocaine 1% 50ml Vial) 50 ml PRN 1X PRN INJ SEE COMMENTS Last administered on 08/05/18at 12:28; Start 08/05/18 at 08:45; Stop 08/06/18 at 08 :44; Status DC Epinephrine HCl (Adrenalin) 1 mg PRN 1X PRN INJ SEE COMMENTS; Start 08/05/18 at 08:45; Stop 08/06/18 at 08:44; Status DC Lidocaine HCl 50 ml PRN 1X PRN MM SEE COMMENTS Last administered on 08/05/18at 12:27; Start 08/05/18 at 08:45; Stop 08/06/18 at 08:44; Status DC Epinephrine HCl (Adrenalin) 1 mg STK-MED ONCE .ROUTE ; Start 08/05/18 at 08:48 ; Stop 08/05/18 at 08:49; Status DC Lidocaine HCl (Lidocaine 1% 50ml Vial) 50 ml STK-MED ONCE .ROUTE ; Start at 08:49; Stop 08/05/18 at 08:50; Status DC Lidocaine HCl 100 ml STK-MED ONCE .ROUTE ; Start 08/05/18 at 08:49; Stop 08/05 at 08:50; Status DC Lidocaine HCl 50 ml STK-MED ONCE .ROUTE ; Start 08/05/18 at 08:49; Stop at 08:50; Status DC Ringer's Solution 1,000 ml @ 100 mls/hr Q10H IV Last administered on at 08:43; Start 08/05/18 at 11:45; Stop 08/06/18 at 09:18; Status DC Propofol 0 ml @ As Directed STK-MED ONCE IV ; Start 08/05/18 at 12:09; Stop at 12:10; Status DC Ondansetron HCl (Zofran) 4 mg PRN Q6HRS PRN IV NAUSEA/VOMITING; Start at 12:15; Stop 08/06/18 at 12:14; Status DC Fentanyl Citrate (Fentanyl 2ml Vial) 25 mcg PRN Q5MIN PRN IV MILD PAIN; Start 08/05/18 at 12:15; Stop 08/06/18 at 12:14; Status DC Fentanyl Citrate (Fentanyl 2ml Vial) 50 mcg PRN Q5MIN PRN IV MODERATE TO SEVERE PAIN; Start 08/05/18 at 12:15; Stop 08/06/18 at 12:14; Status DC Morphine Sulfate (Morphine Sulfate) 1 mg PRN Q10MIN PRN IV SEVERE PAIN; Start 08/05/18 at 12:15; Stop 08/06/18 at 12:14; Status DC Ringer's Solution 1,000 ml @ 30 mls/hr Q24H IV ; Start 08/05/18 at 12:12; Stop 08/06/18 at 00:11; Status DC Lidocaine HCl (Xylocaine-Mpf 1% 2ml Vial) 2 ml 1X PRN PRN ID IV START; Start 08/05/18 at 12:15; Stop 08/06/18 at 12:14; Status DC Hydromorphone HCl (Dilaudid) 0.5 mg PRN Q10MIN PRN IV SEV PAIN, Second choice; Start 08/05/18 at 12:15; Stop 08/06/18 at 12:14; Status DC Prochlorperazine Edisylate (Compazine) 5 mg PACU PRN PRN IV NAUSEA, MRX1; Start 08/05/18 at 12:15; Stop 08/06/18 at 12:14; Status DC Etomidate (Amidate) 20 mg STK-MED ONCE IV ; Start 08/05/18 at 12:00; Stop at 09:05; Status DC Sodium Chloride 1,000 ml @ 100 mls/hr Q10H IV Last administered on 08/06/18at 13:01; Start 08/06/18 at 11:30; Stop 08/07/18 at 06:49; Status DC Sodium Chloride 500 ml @ 500 mls/hr 1X ONCE IV Last administered on at 11:30; Start 08/06/18 at 11:30; Stop 08/06/18 at 12:29; Status DC Furosemide (Lasix) 20 mg DAILY PO Last administered on 08/09/18at 09:41; Start 08/07/18 at 09:00 Lisinopril (Prinivil) 10 mg DAILY PO Last administered on 08/09/18at 09:41; Start 08/07/18 at 09:00 Meropenem 1 gm/ Sodium Chloride 100 ml @ 200 mls/hr Q8HRS IV ; Start 08/06/18 at 14:00; Status UNV Levofloxacin/ Dextrose 150 ml @ 100 mls/hr Q48H IV Last administered on at 13:15; Start 08/06/18 at 12:30; Stop 08/08/18 at 13:28; Status DC Prochlorperazine Edisylate (Compazine) 10 mg PRN Q6HRS PRN IV NAUSEA/VOMITING, 2ND CHOICE Last administered on 08/06/18at 20:00; Start 08/06/18 at 19:45 Lorazepam (Ativan) 1 mg PRN Q4HRS PRN IV ANXIETY / AGITATION Last administered on 08/09/18at 22:19; Start 08/06/18 at 20:00 Lactobacillus Rhamnosus (Culturelle) 1 cap BID PO ; Start 08/07/18 at 21:00; Stop 08/07/18 at 21:00; Status DC Levofloxacin (Levaquin) 250 mg DAILY06 PO Last administered on 08/09/18at 06:03 ; Start 08/09/18 at 06:00 Sodium Chloride (Saline Mist Nasal) 1 yenifer PRN Q1HR PRN NS NASAL CONGESTION Last administered on 08/09/18at 06:03; Start 08/08/18 at 23:30 Lidocaine (Lidoderm) 1 patch DAILY TD Last administered on 08/09/18at 12:14; Start 08/09/18 at 11:45 Miscellaneous (Lidoderm Patch Removal) 1 ea QHS MC ; Start 08/09/18 at 21:00 Lansoprazole (Prevacid) 30 mg DAILYAC FT Last administered on 08/09/18at 13:08 ; Start 08/09/18 at 13:00 Acetaminophen/ Hydrocodone Bitart (Lortab 5/325) 1 tab PRN Q4HRS PRN PO MODERATE/SEVERE PAIN Last administered on 08/09/18at 22:19; Start 08/09/18 at 18:30 Active Scripts Active Levofloxacin 250 Mg Tablet 250 Mg PO DAILY06 Doxycycline Hyclate 100 Mg Capsule 1 Cap PO BID Furosemide 40 Mg Tablet 40 Mg PO DAILY 30 Days Zofran (Ondansetron Hcl) 4 Mg Tablet 1 Tab PO Q8HRS PRN Reported Protonix (Pantoprazole Sodium) 20 Mg Tablet.dr 40 Mg PO PRN DAILY PRN Ultram (Tramadol Hcl) 50 Mg Tablet 50 Mg PO Q6HRS PRN Duoneb 0.5-3(2.5) Mg/3 Ml (Albuterol/Ipratropium) 3 Ml Ampul.neb 3 Ml NEB QID Atorvastatin Calcium 40 Mg Tablet 40 Mg PO HS Lisinopril 20 Mg Tablet 20 Mg PO DAILY Carvedilol 6.25 Mg Tablet 6.25 Mg PO BIDWMEALS Vitamin D (Cholecalciferol (Vitamin D3)) 2,000 Unit Capsule 2,000 Unit PO BIDAFTMEAL Aspirin Ec (Aspirin) 325 Mg Tablet.dr 325 Mg PO DAILY Clopidogrel (Clopidogrel Bisulfate) 75 Mg Tablet 75 Mg PO DAILY Vitals/I & O Vital Sign - Last 24 Hours 08/09/18 08/09/18 08/09/18 08/09/18 11:00 12:04 15:05 15:44 Temp 98.9 98.6 98.9 98.6 Pulse 93 77 Resp 16 16 B/P (MAP) 140/64 (89) 124/61 (82) Pulse Ox 96 95 99 O2 Delivery Nasal Cannula Nasal Cannula Room Air Nasal Cannula O2 Flow Rate 3.0 3.0 3.0 08/09/18 08/09/18 08/09/18 08/09/18 19:00 19:33 20:00 20:13 Temp 98.7 98.7 Pulse 82 Resp 18 20 B/P (MAP) 144/76 (98) Pulse Ox 94 93 O2 Delivery Nasal Cannula Nasal Cannula Nasal Cannula Nasal Cannula O2 Flow Rate 3.0 3.0 3.0 08/09/18 08/09/18 08/09/18 08/09/18 21:52 22:19 22:50 22:52 Temp 98.6 98.6 Pulse 84 Resp 20 20 18 21 B/P (MAP) 129/65 (86) Pulse Ox 93 O2 Delivery Nasal Cannula Nasal Cannula Nasal Cannula Nasal Cannula O2 Flow Rate 3.0 08/10/18 08/10/18 08/10/18 08/10/18 02:39 07:30 07:49 08:00 Temp 98.9 98.6 98.9 98.6 Pulse 77 84 Resp 19 16 B/P (MAP) 122/59 (80) 113/86 (95) Pulse Ox 92 90 95 O2 Delivery Nasal Cannula Nasal Cannula Nasal Cannula Nasal Cannula O2 Flow Rate 3.0 3.0 3.0 3.0 Intake and Output 08/09/18 08/09/18 08/10/18 15:00 23:00 07:00 Intake Total 487 ml 1337 ml 0 ml Balance 487 ml 1337 ml 0 ml Nutrition Consultation Dietary Evaluation: Recommendations by RD: Increase Calorie Intake, Protein supplementation Comments: TF at goal providing > 100% est needs to promote wt gain Expected Outcomes/Goals: TF tolerance wt maintainance/ possibly some gain pending on disease process Interpretation of weight loss: >20% in 1 year Malnutrition Findings: Body Fat Depletion (Non Severe: Mod to Severe Weight Status: Underweight BAYLEE SIMS MD Aug 10, 2018 10:53
[2018-08-10 11:25] VITALS: BP 121/69
--- NOTE | 2018-08-10 11:40 | PDOC ---
Subjective: Subjective: Chest is sore from fall, doesn't feel well. Coughing up phlegm, kept eggs down for GES but "it's making me sick." Says didn't eat or do tube feeds last night. Objective: Vital Signs: Vital Signs Date Time Temp Pulse Resp B/P (MAP) Pulse Ox O2 Delivery O2 Flow Rate FiO2 08/10/18 11:25 98.6 83 18 121/69 (86) 92 Nasal Cannula 3.0 98.6 Imaging: X-Ray IMPRESSION: 1. Acute traumatic minimally displaced right lateral fifth rib fracture. 2. Unchanged right apical opacity. PE: GEN: NAD LUNGS: NC HEART: RRR ABD: non-tender, PEG NEURO/PSYCH: A & O 3, depressed A/P: H/o dysphagia w/ PEG, ?vomiting, GERD - previous workup detailed in consult note Rib fracture/chest pain -- Await GES. Continue PPI. Encouraged use of PEG. FARHAN AKINS Aug 10, 2018 11:40
--- NOTE | 2018-08-10 14:05 | RAD ---
Gastric Emptying Study 08/10/2018 Indication: long history of dysphagia, vomiting daily for about 3 years. Patient only ate egg with 1.4mCi Tc99m sulfur colloid. Procedure: Anterior and posterior projection static images are obtained over the stomach following oral administration of 2 mCi of 99 M technetium sulfur colloid in a solid meal (egg and toast). Time points include an immediate baseline, and 1, 2, 3, and 4 hours post ingestion. Findings: Overall there is progressive emptying of the stomach on spot views. Percentage gastric retention at... One hour is 37% (normal 34.8-91%). Two hours 21% (normal 2.7-60%). Three hours 21% (normal 0.5-28%). Four hours 17% (normal 0-10%). Impression: Delayed gastric emptying at the 4 hour time point consistent with mild (grade 1) delayed gastric emptying. Consensus Recommendations for Gastric Emptying Scintigraphy: A Joint Report of the [place] [employer]astro[employer] Society and the Society of Nuclear Medicine: J. Nucl. Med. Technol. December 2007 vol. 36 no. 1 44-54 Grading for severity of delayed GE based on the 4-h value: grade 1 (mild): 11?20% retention at 4 h grade 2 (moderate): 21?35% retention at 4 h grade 3 (severe): 36?50% retention at 4 h grade 4 (very severe): >50% retention at 4 h. Electronically signed by: Larry Andre MD (08/10/2018 2:02 PM) [id number]
[2018-08-10] MEDS: ONDANSETRON PF 4 MG/2 ML VIAL. IV PRN (14:33)
[2018-08-10] MEDS: LIDOCAINE (700MG/PATCH) PATCH. TD SCH (14:34)
[2018-08-10] MEDS: CLOPIDOGREL BISULFATE 75 MG TABLET PO SCH (14:36)
[2018-08-10] MEDS: ASPIRIN ENTERIC COATED 325 MG TABLET.DR. PO SCH (14:36)
[2018-08-10] MEDS: FUROSEMIDE 20 MG TABLET PO SCH (14:37)
[2018-08-10] MEDS: LISINOPRIL 10 MG TABLET PO SCH (14:37)
[2018-08-10] MEDS: HYDROcodone/APAP 5/325MG 1 TAB TABLET PO PRN ×2 (14:37→20:31)
[2018-08-10] MEDS: CHOLECALCIFEROL (VITAMIN D3) 1,000 UNIT TABLET PO SCH ×2 (14:37→18:00)
[2018-08-10] MEDS: LANSOPRAZOLE 30 MG TAB.RAP.DR FT SCH (14:37)
--- NOTE | 2018-08-10 15:25 | PDOC ---
PULMONARY PROGRESS NOTES Subjective no soa Vitals Vital Signs Date Time Temp Pulse Resp B/P (MAP) Pulse Ox O2 Delivery O2 Flow Rate FiO2 08/10/18 14:37 20 93 Nasal Cannula 08/10/18 14:37 83 121/69 08/10/18 11:25 98.6 3.0 98.6 ROS: No Chest Pain, No Abdominal Pain General: Alert, No acute distress HEENT: Other Lungs: Other (decrease bases) Cardiovascular: S1 Abdomen: Soft, Non-tender Neuro Exam: Alert Extremities: No Edema Skin: Warm Labs Laboratory Tests Test 08/09/18 03:55 White Blood Count 7.7 x10^3/uL (4.0-11.0) Red Blood Count 4.00 x10^6/uL (3.50-5.40) Hemoglobin 12.3 g/dL (12.0-15.5) Hematocrit 35.9 % (36.0-47.0) Mean Corpuscular Volume 90 fL (79-100) Mean Corpuscular Hemoglobin 31 pg (25-35) Mean Corpuscular Hemoglobin Concent 34 g/dL (31-37) Red Cell Distribution Width 13.8 % (11.5-14.5) Platelet Count 196 x10^3/uL (140-400) Neutrophils (%) (Auto) 52 % (31-73) Lymphocytes (%) (Auto) 22 % (24-48) Monocytes (%) (Auto) 7 % (0-9) Eosinophils (%) (Auto) 19 % (0-3) Basophils (%) (Auto) 0 % (0-3) Neutrophils # (Auto) 4.0 x10^3uL (1.8-7.7) Lymphocytes # (Auto) 1.7 x10^3/uL (1.0-4.8) Monocytes # (Auto) 0.5 x10^3/uL (0.0-1.1) Eosinophils # (Auto) 1.4 x10^3/uL (0.0-0.7) Basophils # (Auto) 0.0 x10^3/uL (0.0-0.2) Segmented Neutrophils % 54 % (35-66) Lymphocytes % 18 % (24-48) Atypical Lymphocytes % (Manual) 2 % (0-0) Monocytes % 7 % (0-10) Eosinophils % 19 % (0-5) Platelet Estimate Adequate (ADEQUATE) Thyroid Stimulating Hormone (TSH) 1.045 uIU/mL (0.358-3.74) Cortisol AM Sample 17.3 ug/dL (4.3-22.4) Medications Active Scripts Medications Dose Route/Sig Max Daily Dose Days Date Category Doxycycline Hyclate 100 Mg Capsule 1 Cap PO BID 06/23/18 Rx Protonix (Pantoprazole Sodium) 20 Mg Tablet.dr 40 Mg PO PRN DAILY PRN 06/22/18 Reported Furosemide 40 Mg Tablet 40 Mg PO DAILY 30 05/23/18 Rx Ultram (Tramadol Hcl) 50 Mg Tablet 50 Mg PO Q6HRS PRN 04/20/18 Reported Duoneb 0.5-3(2.5) Mg/3 Ml (Albuterol/Ipratropium) 3 Ml Ampul.neb 3 Ml NEB QID 04/17/18 Reported Zofran (Ondansetron Hcl) 4 Mg Tablet 1 Tab PO Q8HRS PRN 05/19/16 Rx Atorvastatin Calcium 40 Mg Tablet 40 Mg PO HS 09/24/15 Reported Lisinopril 20 Mg Tablet 20 Mg PO DAILY 09/24/15 Reported Carvedilol 6.25 Mg Tablet 6.25 Mg PO BIDWMEALS 09/24/15 Reported Vitamin D (Cholecalciferol (Vitamin D3)) 2,000 Unit Capsule 2,000 Unit PO BIDAFTMEAL 01/07/15 Reported Aspirin Ec (Aspirin) 325 Mg Tablet.dr 325 Mg PO DAILY 01/07/15 Reported Clopidogrel (Clopidogrel Bisulfate) 75 Mg Tablet 75 Mg PO DAILY 01/07/15 Reported Impression . IMPRESSION: 1. Abnormal CT chest revealing right upper lobe infiltrate compared to the film of June of 2016 and it has increased in size. 2. Protein malnutrition, present upon admission. 3. Status post percutaneous endoscopic gastrostomy placement for dysphagia and bulimia. 4. Cardiomyopathy, ejection fraction 10%-15%. 5. Chronic obstructive pulmonary disease, unknown FEV1. 6. BULLEMIA 7. CHRONIC ASPIRATION Plan . WANTS OXYGEN 6 MIN WALK AT [facility] RN HAS NOT WITNESS ANY EMESIS SPEECH REC FOLLOW UP ON BAL CULTURE. SO FAR NO GROWTH/ NORMAL LENORE. YEAST ISOLATED/ NO NEED TO TREAT FOLLOW UP ON PT RECOMMENDATION FOR HOME OR [facility] JEFF MARTIN MD Aug 10, 2018 15:25
[2018-08-10 15:40] VITALS: BP 128/64
[2018-08-10 19:00] VITALS: BP 119/67
[2018-08-10] MEDS: ATORVASTATIN CALCIUM 40 MG TABLET. PO SCH (20:31)
[2018-08-10] MEDS: PATCH REMOVAL. MC SCH (20:31)
[2018-08-10 22:41] VITALS: BP 126/60
[2018-08-11] MEDS: HYDROcodone/APAP 5/325MG 1 TAB TABLET PO PRN ×5 (00:56→22:20)
[2018-08-11] MEDS: ONDANSETRON PF 4 MG/2 ML VIAL. IV PRN (01:01)
[2018-08-11 02:49] VITALS: BP 120/61
[2018-08-11] MEDS: IPRATRPIUM/ALBUTEROL 0.5/2.5MG 3 ML NEBU. NEB SCH ×4 (05:46→20:03)
[2018-08-11 07:00] VITALS: BP 94/49
[2018-08-11 07:16] LABS: BASO % 0 % (0-3); EOS # 3.8 x10^3/uL (0.0-0.7); EOS % 32 % (0-3); HEMATOCRIT 37.8 % (36.0-47.0); HEMOGLOBIN 12.6 g/dL (12.0-15.5); LYMPH # 1.8 x10^3/uL (1.0-4.8); LYMPH % 15 % (24-48); MEAN CORPUSCULAR HEMOGLOBIN 30 pg (25-35); MEAN CORPUSCULAR HGB CONC 34 g/dL (31-37); MEAN CORPUSCULAR VOLUME 90 fL (79-100); MONO # 0.5 x10^3/uL (0.0-1.1); MONO % 5 % (0-9); NEUT # 5.7 x10^3uL (1.8-7.7); NEUT % 48 % (31-73); PLATELET COUNT 211 x10^3/uL (140-400); RED CELL DISTRIBUTION WIDTH 13.6 % (11.5-14.5); WHITE BLOOD COUNT 11.8 x10^3/uL (4.0-11.0)
[2018-08-11 07:39] LABS: ALBUMIN 2.6 g/dL (3.4-5.0); ALBUMIN/GLOBULIN RATIO 0.7 (1.0-1.7); CALCIUM 9.3 mg/dL (8.5-10.1); CREATININE 0.9 mg/dL (0.6-1.0); GFR 74.1; POTASSIUM 3.7 mmol/L (3.5-5.1); TOTAL BILIRUBIN 0.4 mg/dL (0.2-1.0); TOTAL PROTEIN 6.5 g/dL (6.4-8.2)
[2018-08-11] MEDS: LISINOPRIL 10 MG TABLET PO SCH (09:00)
--- NOTE | 2018-08-11 09:37 | PDOC ---
PULMONARY PROGRESS NOTES Subjective no soa had emesis x 1 yesterday Vitals Vital Signs Date Time Temp Pulse Resp B/P (MAP) Pulse Ox O2 Delivery O2 Flow Rate FiO2 08/11/18 07:00 98.2 90 18 94/49 (64) 97 3L 98.2 08/11/18 06:38 3.0 ROS: No Chest Pain, No Abdominal Pain General: Alert, No acute distress HEENT: Other Lungs: Other (decrease bases) Cardiovascular: S1 Abdomen: Soft, Non-tender Neuro Exam: Alert Extremities: No Edema Skin: Warm Labs Laboratory Tests Test 08/11/18 06:50 White Blood Count 11.8 x10^3/uL (4.0-11.0) Red Blood Count 4.20 x10^6/uL (3.50-5.40) Hemoglobin 12.6 g/dL (12.0-15.5) Hematocrit 37.8 % (36.0-47.0) Mean Corpuscular Volume 90 fL (79-100) Mean Corpuscular Hemoglobin 30 pg (25-35) Mean Corpuscular Hemoglobin Concent 34 g/dL (31-37) Red Cell Distribution Width 13.6 % (11.5-14.5) Platelet Count 211 x10^3/uL (140-400) Neutrophils (%) (Auto) 48 % (31-73) Lymphocytes (%) (Auto) 15 % (24-48) Monocytes (%) (Auto) 5 % (0-9) Eosinophils (%) (Auto) 32 % (0-3) Basophils (%) (Auto) 0 % (0-3) Neutrophils # (Auto) 5.7 x10^3uL (1.8-7.7) Lymphocytes # (Auto) 1.8 x10^3/uL (1.0-4.8) Monocytes # (Auto) 0.5 x10^3/uL (0.0-1.1) Eosinophils # (Auto) 3.8 x10^3/uL (0.0-0.7) Basophils # (Auto) 0.0 x10^3/uL (0.0-0.2) Sodium Level 138 mmol/L (136-145) Potassium Level 3.7 mmol/L (3.5-5.1) Chloride Level 100 mmol/L (98-107) Carbon Dioxide Level 32 mmol/L (21-32) Anion Gap 6 (6-14) Blood Urea Nitrogen 10 mg/dL (7-20) Creatinine 0.9 mg/dL (0.6-1.0) Estimated GFR (Cockcroft-Gault) 74.1 BUN/Creatinine Ratio 11 (6-20) Glucose Level 132 mg/dL (70-99) Calcium Level 9.3 mg/dL (8.5-10.1) Total Bilirubin 0.4 mg/dL (0.2-1.0) Aspartate Amino Transf (AST/SGOT) 17 U/L (15-37) Alanine Aminotransferase (ALT/SGPT) 12 U/L (14-59) Alkaline Phosphatase 106 U/L (46-116) Total Protein 6.5 g/dL (6.4-8.2) Albumin 2.6 g/dL (3.4-5.0) Albumin/Globulin Ratio 0.7 (1.0-1.7) Laboratory Tests Test 08/11/18 06:50 White Blood Count 11.8 x10^3/uL (4.0-11.0) Red Blood Count 4.20 x10^6/uL (3.50-5.40) Hemoglobin 12.6 g/dL (12.0-15.5) Hematocrit 37.8 % (36.0-47.0) Mean Corpuscular Volume 90 fL (79-100) Mean Corpuscular Hemoglobin 30 pg (25-35) Mean Corpuscular Hemoglobin Concent 34 g/dL (31-37) Red Cell Distribution Width 13.6 % (11.5-14.5) Platelet Count 211 x10^3/uL (140-400) Neutrophils (%) (Auto) 48 % (31-73) Lymphocytes (%) (Auto) 15 % (24-48) Monocytes (%) (Auto) 5 % (0-9) Eosinophils (%) (Auto) 32 % (0-3) Basophils (%) (Auto) 0 % (0-3) Neutrophils # (Auto) 5.7 x10^3uL (1.8-7.7) Lymphocytes # (Auto) 1.8 x10^3/uL (1.0-4.8) Monocytes # (Auto) 0.5 x10^3/uL (0.0-1.1) Eosinophils # (Auto) 3.8 x10^3/uL (0.0-0.7) Basophils # (Auto) 0.0 x10^3/uL (0.0-0.2) Sodium Level 138 mmol/L (136-145) Potassium Level 3.7 mmol/L (3.5-5.1) Chloride Level 100 mmol/L (98-107) Carbon Dioxide Level 32 mmol/L (21-32) Anion Gap 6 (6-14) Blood Urea Nitrogen 10 mg/dL (7-20) Creatinine 0.9 mg/dL (0.6-1.0) Estimated GFR (Cockcroft-Gault) 74.1 BUN/Creatinine Ratio 11 (6-20) Glucose Level 132 mg/dL (70-99) Calcium Level 9.3 mg/dL (8.5-10.1) Total Bilirubin 0.4 mg/dL (0.2-1.0) Aspartate Amino Transf (AST/SGOT) 17 U/L (15-37) Alanine Aminotransferase (ALT/SGPT) 12 U/L (14-59) Alkaline Phosphatase 106 U/L (46-116) Total Protein 6.5 g/dL (6.4-8.2) Albumin 2.6 g/dL (3.4-5.0) Albumin/Globulin Ratio 0.7 (1.0-1.7) Medications Active Scripts Medications Dose Route/Sig Max Daily Dose Days Date Category Doxycycline Hyclate 100 Mg Capsule 1 Cap PO BID 06/23/18 Rx Protonix (Pantoprazole Sodium) 20 Mg Tablet.dr 40 Mg PO PRN DAILY PRN 06/22/18 Reported Furosemide 40 Mg Tablet 40 Mg PO DAILY 30 05/23/18 Rx Ultram (Tramadol Hcl) 50 Mg Tablet 50 Mg PO Q6HRS PRN 04/20/18 Reported Duoneb 0.5-3(2.5) Mg/3 Ml (Albuterol/Ipratropium) 3 Ml Ampul.neb 3 Ml NEB QID 04/17/18 Reported Zofran (Ondansetron Hcl) 4 Mg Tablet 1 Tab PO Q8HRS PRN 05/19/16 Rx Atorvastatin Calcium 40 Mg Tablet 40 Mg PO HS 09/24/15 Reported Lisinopril 20 Mg Tablet 20 Mg PO DAILY 09/24/15 Reported Carvedilol 6.25 Mg Tablet 6.25 Mg PO BIDWMEALS 09/24/15 Reported Vitamin D (Cholecalciferol (Vitamin D3)) 2,000 Unit Capsule 2,000 Unit PO BIDAFTMEAL 01/07/15 Reported Aspirin Ec (Aspirin) 325 Mg Tablet.dr 325 Mg PO DAILY 01/07/15 Reported Clopidogrel (Clopidogrel Bisulfate) 75 Mg Tablet 75 Mg PO DAILY 01/07/15 Reported Impression . IMPRESSION: 1. Abnormal CT chest revealing right upper lobe infiltrate compared to the film of June of 2016 and it has increased in size. 2. Protein malnutrition, present upon admission. 3. Status post percutaneous endoscopic gastrostomy placement for dysphagia and bulimia. 4. Cardiomyopathy, ejection fraction 10%-15%. 5. Chronic obstructive pulmonary disease, unknown FEV1. 6. BULLEMIA 7. CHRONIC ASPIRATION/ Delayed gastric emptying (mild) Plan . WANTS OXYGEN 6 MIN WALK AT DC SPEECH/ GI REC FOLLOW UP ON BAL CULTURE. SO FAR NO GROWTH/ NORMAL [place]. YEAST ISOLATED/ NO NEED TO TREAT FOLLOW UP ON PT RECOMMENDATION FOR HOME OR SNU DC PLANS PER PCP F/U CXR OP JEFF MCDONNELL MD Aug 11, 2018 09:37
[2018-08-11] MEDS: CLOPIDOGREL BISULFATE 75 MG TABLET PO SCH (10:03)
[2018-08-11] MEDS: FUROSEMIDE 20 MG TABLET PO SCH (10:03)
[2018-08-11] MEDS: ASPIRIN ENTERIC COATED 325 MG TABLET.DR. PO SCH (10:03)
[2018-08-11] MEDS: LANSOPRAZOLE 30 MG TAB.RAP.DR FT SCH (10:03)
[2018-08-11] MEDS: CHOLECALCIFEROL (VITAMIN D3) 1,000 UNIT TABLET PO SCH ×2 (10:03→16:50)
[2018-08-11] MEDS: LIDOCAINE (700MG/PATCH) PATCH. TD SCH (10:06)
--- NOTE | 2018-08-11 10:23 | PDOC ---
Subjective: Subjective: Chest hurts - says pain meds not helping. Doesn't feel like eating PO but says took tube feeds this morning. Coughed up phlegm, denies vomiting. Objective: Vital Signs: Vital Signs Date Time Temp Pulse Resp B/P (MAP) Pulse Ox O2 Delivery O2 Flow Rate FiO2 08/11/18 10:04 20 93 Room Air 08/11/18 09:00 94/49 08/11/18 07:00 98.2 90 98.2 08/11/18 06:38 3.0 Labs: Laboratory Tests Test 08/11/18 06:50 White Blood Count 11.8 x10^3/uL Red Blood Count 4.20 x10^6/uL Hemoglobin 12.6 g/dL Hematocrit 37.8 % Mean Corpuscular Volume 90 fL Mean Corpuscular Hemoglobin 30 pg Mean Corpuscular Hemoglobin Concent 34 g/dL Red Cell Distribution Width 13.6 % Platelet Count 211 x10^3/uL Neutrophils (%) (Auto) 48 % Lymphocytes (%) (Auto) 15 % Monocytes (%) (Auto) 5 % Eosinophils (%) (Auto) 32 % Basophils (%) (Auto) 0 % Neutrophils # (Auto) 5.7 x10^3uL Lymphocytes # (Auto) 1.8 x10^3/uL Monocytes # (Auto) 0.5 x10^3/uL Eosinophils # (Auto) 3.8 x10^3/uL Basophils # (Auto) 0.0 x10^3/uL Sodium Level 138 mmol/L Potassium Level 3.7 mmol/L Chloride Level 100 mmol/L Carbon Dioxide Level 32 mmol/L Anion Gap 6 Blood Urea Nitrogen 10 mg/dL Creatinine 0.9 mg/dL Estimated GFR (Cockcroft-Gault) 74.1 BUN/Creatinine Ratio 11 Glucose Level 132 mg/dL Calcium Level 9.3 mg/dL Total Bilirubin 0.4 mg/dL Aspartate Amino Transf (AST/SGOT) 17 U/L Alanine Aminotransferase (ALT/SGPT) 12 U/L Alkaline Phosphatase 106 U/L Total Protein 6.5 g/dL Albumin 2.6 g/dL Albumin/Globulin Ratio 0.7 Imaging: GES Findings: Overall there is progressive emptying of the stomach on spot views. Percentage gastric retention at... One hour is 37% (normal 34.8-91%). Two hours 21% (normal 2.7-60%). Three hours 21% (normal 0.5-28%). Four hours 17% (normal 0-10%). Impression: Delayed gastric emptying at the 4 hour time point consistent with mild (grade 1) delayed gastric emptying. PE: GEN: uncomfortable, curled up in a ball on bed LUNGS: poor effort HEART: RRR ABD: soft, PEG in place NEURO/PSYCH: A & O 3, flat, keeps eyes closed A/P: H/o dysphagia/coughing/vomiting w/ PEG -h/o GERD, GES slightly abnormal as above Rib fracture/chest pain -- ?try Reglan Continue PPI. Use PEG as needed. Pain control per primary SIRIA-FARHAN GARRISON Aug 11, 2018 10:23
[2018-08-11 11:00] VITALS: BP 118/63
--- NOTE | 2018-08-11 11:03 | PDOC ---
PROGRESS NOTES Chief Complaint Chief Complaint SOA. Abnormal CT chest revealing right upper lobe infiltrate compared to the film 06/27 s/p bronch (`08/05/18) - Indwelling pacer Chronic A.fib Cardiomyopathy, ejection fraction 10%-15%. Undernourished-BMI 15.3/Cachexia Hx bulimia Hypoxic respiratory failure Questionable hx COPD Indwelling PEG sec to SEVERE GASTROPARESIS confirmed by GET hypotension responsive to fluids fell 08/09, right chest wall pain, on lidoderm patch, severe protein-caloric malnutrition QUALIFIED WITH 6 min walk for home o2 History of Present Illness History of Present Illness Bronch Results noted - some respi orquidea hypotension thursday that rsoved with IVF very dry and cachectic GET 08/11 She does her TF at home EMESIS REPORTED 08/11 HAs PEG bec of severe gastroparesis hx Gen surg consult, GI Following vomiting and reflux from G tube, poor nutrition, may need J tube COnt TF aspiration pneumonitis, persists, ct chest Vitals Vitals Vital Signs Date Time Temp Pulse Resp B/P (MAP) Pulse Ox O2 Delivery O2 Flow Rate FiO2 08/11/18 10:04 20 93 Room Air 08/11/18 09:00 94/49 08/11/18 07:00 98.2 90 98.2 08/11/18 06:38 3.0 Physical Exam General: Alert, Oriented X3, Cooperative, No acute distress, mild distress Heart: Regular rate, Normal S1, Normal S2, No murmurs Lungs: Clear, Other (decrease bases) Abdomen: Soft Extremities: No clubbing, No cyanosis Skin: No rashes, No breakdown Labs LABS Gastric Emptying Study 08/10/2018 Indication: long history of dysphagia, vomiting daily for about 3 years. Patient only ate egg with 1.4mCi Tc99m sulfur colloid. Procedure: Anterior and posterior projection static images are obtained over the stomach following oral administration of 2 mCi of 99 M technetium sulfur colloid in a solid meal (egg and toast). Time points include an immediate baseline, and 1, 2, 3, and 4 hours post ingestion. Findings: Overall there is progressive emptying of the stomach on spot views. Percentage gastric retention at... One hour is 37% (normal 34.8-91%). Two hours 21% (normal 2.7-60%). Three hours 21% (normal 0.5-28%). Four hours 17% (normal 0-10%). Impression: Delayed gastric emptying at the 4 hour time point consistent with mild (grade 1) delayed gastric emptying. Consensus Recommendations for Gastric Emptying Scintigraphy: A Joint Report of the [place] [employer] and the Society of Nuclear Medicine: J. Nucl. Med. Technol. December 2007 vol. 36 no. 1 44-54 Grading for severity of delayed GE based on the 4-h value: grade 1 (mild): 11?20% retention at 4 h grade 2 (moderate): 21?35% retention at 4 h grade 3 (severe): 36?50% retention at 4 h grade 4 (very severe): >50% retention at 4 h. Electronically signed by: Larry Talbert MD (08/10/2018 2:02 PM) [facility] DICTATED and SIGNED BY: LARRY TALBERT MD DATE: 08/10/18 1400 Laboratory Tests Test 08/11/18 06:50 White Blood Count 11.8 x10^3/uL (4.0-11.0) Red Blood Count 4.20 x10^6/uL (3.50-5.40) Hemoglobin 12.6 g/dL (12.0-15.5) Hematocrit 37.8 % (36.0-47.0) Mean Corpuscular Volume 90 fL (79-100) Mean Corpuscular Hemoglobin 30 pg (25-35) Mean Corpuscular Hemoglobin Concent 34 g/dL (31-37) Red Cell Distribution Width 13.6 % (11.5-14.5) Platelet Count 211 x10^3/uL (140-400) Neutrophils (%) (Auto) 48 % (31-73) Lymphocytes (%) (Auto) 15 % (24-48) Monocytes (%) (Auto) 5 % (0-9) Eosinophils (%) (Auto) 32 % (0-3) Basophils (%) (Auto) 0 % (0-3) Neutrophils # (Auto) 5.7 x10^3uL (1.8-7.7) Lymphocytes # (Auto) 1.8 x10^3/uL (1.0-4.8) Monocytes # (Auto) 0.5 x10^3/uL (0.0-1.1) Eosinophils # (Auto) 3.8 x10^3/uL (0.0-0.7) Basophils # (Auto) 0.0 x10^3/uL (0.0-0.2) Sodium Level 138 mmol/L (136-145) Potassium Level 3.7 mmol/L (3.5-5.1) Chloride Level 100 mmol/L (98-107) Carbon Dioxide Level 32 mmol/L (21-32) Anion Gap 6 (6-14) Blood Urea Nitrogen 10 mg/dL (7-20) Creatinine 0.9 mg/dL (0.6-1.0) Estimated GFR (Cockcroft-Gault) 74.1 BUN/Creatinine Ratio 11 (6-20) Glucose Level 132 mg/dL (70-99) Calcium Level 9.3 mg/dL (8.5-10.1) Total Bilirubin 0.4 mg/dL (0.2-1.0) Aspartate Amino Transf (AST/SGOT) 17 U/L (15-37) Alanine Aminotransferase (ALT/SGPT) 12 U/L (14-59) Alkaline Phosphatase 106 U/L (46-116) Total Protein 6.5 g/dL (6.4-8.2) Albumin 2.6 g/dL (3.4-5.0) Albumin/Globulin Ratio 0.7 (1.0-1.7) Assessment and Plan Assessmemt and Plan Problems Medical Problems: (1) CHF (congestive heart failure) Status: Acute (2) COPD (chronic obstructive pulmonary disease) Status: Acute Comment Review of Relevant I have reviewed the following items loren (where applicable) has been applied. Labs Laboratory Tests Test 08/11/18 06:50 White Blood Count 11.8 x10^3/uL (4.0-11.0) Red Blood Count 4.20 x10^6/uL (3.50-5.40) Hemoglobin 12.6 g/dL (12.0-15.5) Hematocrit 37.8 % (36.0-47.0) Mean Corpuscular Volume 90 fL (79-100) Mean Corpuscular Hemoglobin 30 pg (25-35) Mean Corpuscular Hemoglobin Concent 34 g/dL (31-37) Red Cell Distribution Width 13.6 % (11.5-14.5) Platelet Count 211 x10^3/uL (140-400) Neutrophils (%) (Auto) 48 % (31-73) Lymphocytes (%) (Auto) 15 % (24-48) Monocytes (%) (Auto) 5 % (0-9) Eosinophils (%) (Auto) 32 % (0-3) Basophils (%) (Auto) 0 % (0-3) Neutrophils # (Auto) 5.7 x10^3uL (1.8-7.7) Lymphocytes # (Auto) 1.8 x10^3/uL (1.0-4.8) Monocytes # (Auto) 0.5 x10^3/uL (0.0-1.1) Eosinophils # (Auto) 3.8 x10^3/uL (0.0-0.7) Basophils # (Auto) 0.0 x10^3/uL (0.0-0.2) Sodium Level 138 mmol/L (136-145) Potassium Level 3.7 mmol/L (3.5-5.1) Chloride Level 100 mmol/L (98-107) Carbon Dioxide Level 32 mmol/L (21-32) Anion Gap 6 (6-14) Blood Urea Nitrogen 10 mg/dL (7-20) Creatinine 0.9 mg/dL (0.6-1.0) Estimated GFR (Cockcroft-Gault) 74.1 BUN/Creatinine Ratio 11 (6-20) Glucose Level 132 mg/dL (70-99) Calcium Level 9.3 mg/dL (8.5-10.1) Total Bilirubin 0.4 mg/dL (0.2-1.0) Aspartate Amino Transf (AST/SGOT) 17 U/L (15-37) Alanine Aminotransferase (ALT/SGPT) 12 U/L (14-59) Alkaline Phosphatase 106 U/L (46-116) Total Protein 6.5 g/dL (6.4-8.2) Albumin 2.6 g/dL (3.4-5.0) Albumin/Globulin Ratio 0.7 (1.0-1.7) Laboratory Tests Test 08/11/18 06:50 White Blood Count 11.8 x10^3/uL (4.0-11.0) Red Blood Count 4.20 x10^6/uL (3.50-5.40) Hemoglobin 12.6 g/dL (12.0-15.5) Hematocrit 37.8 % (36.0-47.0) Mean Corpuscular Volume 90 fL (79-100) Mean Corpuscular Hemoglobin 30 pg (25-35) Mean Corpuscular Hemoglobin Concent 34 g/dL (31-37) Red Cell Distribution Width 13.6 % (11.5-14.5) Platelet Count 211 x10^3/uL (140-400) Neutrophils (%) (Auto) 48 % (31-73) Lymphocytes (%) (Auto) 15 % (24-48) Monocytes (%) (Auto) 5 % (0-9) Eosinophils (%) (Auto) 32 % (0-3) Basophils (%) (Auto) 0 % (0-3) Neutrophils # (Auto) 5.7 x10^3uL (1.8-7.7) Lymphocytes # (Auto) 1.8 x10^3/uL (1.0-4.8) Monocytes # (Auto) 0.5 x10^3/uL (0.0-1.1) Eosinophils # (Auto) 3.8 x10^3/uL (0.0-0.7) Basophils # (Auto) 0.0 x10^3/uL (0.0-0.2) Sodium Level 138 mmol/L (136-145) Potassium Level 3.7 mmol/L (3.5-5.1) Chloride Level 100 mmol/L (98-107) Carbon Dioxide Level 32 mmol/L (21-32) Anion Gap 6 (6-14) Blood Urea Nitrogen 10 mg/dL (7-20) Creatinine 0.9 mg/dL (0.6-1.0) Estimated GFR (Cockcroft-Gault) 74.1 BUN/Creatinine Ratio 11 (6-20) Glucose Level 132 mg/dL (70-99) Calcium Level 9.3 mg/dL (8.5-10.1) Total Bilirubin 0.4 mg/dL (0.2-1.0) Aspartate Amino Transf (AST/SGOT) 17 U/L (15-37) Alanine Aminotransferase (ALT/SGPT) 12 U/L (14-59) Alkaline Phosphatase 106 U/L (46-116) Total Protein 6.5 g/dL (6.4-8.2) Albumin 2.6 g/dL (3.4-5.0) Albumin/Globulin Ratio 0.7 (1.0-1.7) Microbiology 08/05/18 AFB Specimen Processing Tissue - Final, Resulted 08/05/18 Acid Fast Bacilli Culture, Resulted Pending 08/05/18 Gram Stain - Final, Resulted 08/05/18 Fungal Culture, Resulted Pending 08/05/18 Fungal Culture Result 1, Resulted Pending Medications Current Medications Albuterol/ Ipratropium (Duoneb) 3 ml 1X ONCE NEB Last administered on at 02:08; Start 08/04/18 at 02:00; Stop 08/04/18 at 02:01; Status DC Ondansetron HCl (Zofran) 4 mg 1X ONCE IV Last administered on 08/04/18at 02:18 ; Start 08/04/18 at 02:15; Stop 08/04/18 at 02:20; Status DC Ondansetron HCl (Zofran) 4 mg PRN Q8HRS PRN IV NAUSEA/VOMITING; Start at 02:45; Stop 08/04/18 at 08:33; Status DC Acetaminophen (Tylenol) 650 mg PRN Q4HRS PRN PO FEVER; Start 08/04/18 at 02:45 ; Stop 08/05/18 at 02:45; Status DC Prednisone (Prednisone) 50 mg 1X ONCE PO Last administered on 08/04/18at 02:57 ; Start 08/04/18 at 02:45; Stop 08/04/18 at 02:46; Status DC Levofloxacin (Levaquin) 500 mg 1X ONCE PO Last administered on 08/04/18at 02: 58; Start 08/04/18 at 02:45; Stop 08/04/18 at 02:46; Status DC Albuterol/ Ipratropium (Duoneb) 3 ml PRN Q4HRS PRN NEB dyspnea or wheezing.; Start 08/04/18 at 02:45; Stop 08/04/18 at 02:45; Status DC Albuterol Sulfate (Ventolin Neb Soln) 2.5 mg PRN Q4HRS PRN NEB dyspnea or wheezing. Last administered on 08/09/18at 03:30; Start 08/04/18 at 02:45 Influenza Virus Vaccine (Afluria Trivalent 3600-2643 Syringe) 0.5 ml ONCE ONCE VAX IM Last administered on 08/04/18 09:31; Start 08/04/18 at 09:00; Stop 08/04/18 at 09:01; Status DC Ondansetron HCl (Zofran) 4 mg PRN Q6HRS PRN IV NAUSEA/VOMITING, 1ST CHOICE Last administered on 08/11/18at 01:01; Start 08/04/18 at 08:45 Albuterol/ Ipratropium (Duoneb) 3 ml RTQID NEB Last administered on 08/11/18at 05:46; Start 08/04/18 at 09:00 Guaifenesin (Robitussin Dm) 10 ml PRN Q6HRS PRN PO COUGH Last administered on 08/08/18 19:21; Start 08/04/18 at 08:45 Aspirin (Ecotrin) 325 mg DAILY PO Last administered on 08/11/18at 10:03; Start 08/04/18 at 09:00 Atorvastatin Calcium (Lipitor) 40 mg HS PO Last administered on 08/10/18at 20: 31; Start 08/04/18 at 21:00 Carvedilol (Coreg) 6.25 mg BIDWMEALS PO Last administered on 08/06/18 08:31; Start 08/04/18 at 09:00; Stop 08/06/18 at 11:30; Status DC Clopidogrel Bisulfate (Plavix) 75 mg DAILY PO Last administered on 08/11/18at 10:03; Start 08/04/18 at 09:00 Furosemide (Lasix) 40 mg DAILY PO Last administered on 08/06/18at 08:31; Start 08/04/18 at 09:00; Stop 08/06/18 at 11:30; Status DC Lisinopril (Prinivil) 20 mg DAILY PO Last administered on 08/06/18at 08:31; Start 08/04/18 at 09:00; Stop 08/06/18 at 11:30; Status DC Tramadol HCl (Ultram) 50 mg PRN Q6HRS PRN PO MILD PAIN Last administered on at 21:52; Start 08/04/18 at 08:45 Vitamin D (Vitamin D3) 2,000 unit BIDAFTMEAL PO Last administered on at 10:03; Start 08/04/18 at 09:00 Ondansetron HCl (Zofran Odt) 4 mg PRN Q8HRS PRN PO NAUSEA/VOMITING; Start at 08:45 Pantoprazole Sodium (Protonix) 40 mg PRN DAILY PRN PO HEARBURN/GAS; Start at 07:30; Stop 08/09/18 at 12:37; Status DC Guaifenesin (Robitussin Dm) 10 ml PRN Q6HRS PRN PO COUGH; Start 08/04/18 at 08 :45; Status UNV Sodium Chloride (Normal Saline Flush) 3 ml QSHIFT PRN IV AFTER MEDS AND BLOOD DRAWS; Start 08/05/18 at 08:45 Lidocaine HCl 100 ml PRN 1X PRN MM MOUTH PAIN Last administered on 08/05/18at 12:28; Start 08/05/18 at 08:45; Stop 08/06/18 at 08:44; Status DC Lidocaine HCl (Lidocaine 1% 50ml Vial) 50 ml PRN 1X PRN INJ SEE COMMENTS Last administered on 08/05/18at 12:28; Start 08/05/18 at 08:45; Stop 08/06/18 at 08 :44; Status DC Epinephrine HCl (Adrenalin) 1 mg PRN 1X PRN INJ SEE COMMENTS; Start 08/05/18 at 08:45; Stop 08/06/18 at 08:44; Status DC Lidocaine HCl 50 ml PRN 1X PRN MM SEE COMMENTS Last administered on 08/05/18at 12:27; Start 08/05/18 at 08:45; Stop 08/06/18 at 08:44; Status DC Epinephrine HCl (Adrenalin) 1 mg STK-MED ONCE .ROUTE ; Start 08/05/18 at 08:48 ; Stop 08/05/18 at 08:49; Status DC Lidocaine HCl (Lidocaine 1% 50ml Vial) 50 ml STK-MED ONCE .ROUTE ; Start at 08:49; Stop 08/05/18 at 08:50; Status DC Lidocaine HCl 100 ml STK-MED ONCE .ROUTE ; Start 08/05/18 at 08:49; Stop 08/05 at 08:50; Status DC Lidocaine HCl 50 ml STK-MED ONCE .ROUTE ; Start 08/05/18 at 08:49; Stop at 08:50; Status DC Ringer's Solution 1,000 ml @ 100 mls/hr Q10H IV Last administered on at 08:43; Start 08/05/18 at 11:45; Stop 08/06/18 at 09:18; Status DC Propofol 0 ml @ As Directed STK-MED ONCE IV ; Start 08/05/18 at 12:09; Stop at 12:10; Status DC Ondansetron HCl (Zofran) 4 mg PRN Q6HRS PRN IV NAUSEA/VOMITING; Start at 12:15; Stop 08/06/18 at 12:14; Status DC Fentanyl Citrate (Fentanyl 2ml Vial) 25 mcg PRN Q5MIN PRN IV MILD PAIN; Start 08/05/18 at 12:15; Stop 08/06/18 at 12:14; Status DC Fentanyl Citrate (Fentanyl 2ml Vial) 50 mcg PRN Q5MIN PRN IV MODERATE TO SEVERE PAIN; Start 08/05/18 at 12:15; Stop 08/06/18 at 12:14; Status DC Morphine Sulfate (Morphine Sulfate) 1 mg PRN Q10MIN PRN IV SEVERE PAIN; Start 08/05/18 at 12:15; Stop 08/06/18 at 12:14; Status DC Ringer's Solution 1,000 ml @ 30 mls/hr Q24H IV ; Start 08/05/18 at 12:12; Stop 08/06/18 at 00:11; Status DC Lidocaine HCl (Xylocaine-Mpf 1% 2ml Vial) 2 ml 1X PRN PRN ID IV START; Start 08/05/18 at 12:15; Stop 08/06/18 at 12:14; Status DC Hydromorphone HCl (Dilaudid) 0.5 mg PRN Q10MIN PRN IV SEV PAIN, Second choice; Start 08/05/18 at 12:15; Stop 08/06/18 at 12:14; Status DC Prochlorperazine Edisylate (Compazine) 5 mg PACU PRN PRN IV NAUSEA, MRX1; Start 08/05/18 at 12:15; Stop 08/06/18 at 12:14; Status DC Etomidate (Amidate) 20 mg STK-MED ONCE IV ; Start 08/05/18 at 12:00; Stop at 09:05; Status DC Sodium Chloride 1,000 ml @ 100 mls/hr Q10H IV Last administered on 08/06/18at 13:01; Start 08/06/18 at 11:30; Stop 08/07/18 at 06:49; Status DC Sodium Chloride 500 ml @ 500 mls/hr 1X ONCE IV Last administered on at 11:30; Start 08/06/18 at 11:30; Stop 08/06/18 at 12:29; Status DC Furosemide (Lasix) 20 mg DAILY PO Last administered on 08/11/18at 10:03; Start 08/07/18 at 09:00 Lisinopril (Prinivil) 10 mg DAILY PO Last administered on 08/10/18at 14:37; Start 08/07/18 at 09:00 Meropenem 1 gm/ Sodium Chloride 100 ml @ 200 mls/hr Q8HRS IV ; Start 08/06/18 at 14:00; Status UNV Levofloxacin/ Dextrose 150 ml @ 100 mls/hr Q48H IV Last administered on at 13:15; Start 08/06/18 at 12:30; Stop 08/08/18 at 13:28; Status DC Prochlorperazine Edisylate (Compazine) 10 mg PRN Q6HRS PRN IV NAUSEA/VOMITING, 2ND CHOICE Last administered on 08/06/18at 20:00; Start 08/06/18 at 19:45 Lorazepam (Ativan) 1 mg PRN Q4HRS PRN IV ANXIETY / AGITATION Last administered on 08/11/18at 10:45; Start 08/06/18 at 20:00 Lactobacillus Rhamnosus (Culturelle) 1 cap BID PO ; Start 08/07/18 at 21:00; Stop 08/07/18 at 21:00; Status DC Levofloxacin (Levaquin) 250 mg DAILY06 PO Last administered on 08/11/18at 05:43 ; Start 08/09/18 at 06:00 Sodium Chloride (Saline Mist Nasal) 1 yenifer PRN Q1HR PRN NS NASAL CONGESTION Last administered on 08/09/18at 06:03; Start 08/08/18 at 23:30 Lidocaine (Lidoderm) 1 patch DAILY TD Last administered on 08/11/18at 10:06; Start 08/09/18 at 11:45 Miscellaneous (Lidoderm Patch Removal) 1 ea QHS MC Last administered on at 20:31; Start 08/09/18 at 21:00 Lansoprazole (Prevacid) 30 mg DAILYAC FT Last administered on 08/11/18at 10:03 ; Start 08/09/18 at 13:00 Acetaminophen/ Hydrocodone Bitart (Lortab 5/325) 1 tab PRN Q4HRS PRN PO MODERATE/SEVERE PAIN Last administered on 08/11/18at 10:04; Start 08/09/18 at 18:30 Active Scripts Active Levofloxacin 250 Mg Tablet 250 Mg PO DAILY06 Doxycycline Hyclate 100 Mg Capsule 1 Cap PO BID Furosemide 40 Mg Tablet 40 Mg PO DAILY 30 Days Zofran (Ondansetron Hcl) 4 Mg Tablet 1 Tab PO Q8HRS PRN Reported Protonix (Pantoprazole Sodium) 20 Mg Tablet.dr 40 Mg PO PRN DAILY PRN Ultram (Tramadol Hcl) 50 Mg Tablet 50 Mg PO Q6HRS PRN Duoneb 0.5-3(2.5) Mg/3 Ml (Albuterol/Ipratropium) 3 Ml Ampul.neb 3 Ml NEB QID Atorvastatin Calcium 40 Mg Tablet 40 Mg PO HS Lisinopril 20 Mg Tablet 20 Mg PO DAILY Carvedilol 6.25 Mg Tablet 6.25 Mg PO BIDWMEALS Vitamin D (Cholecalciferol (Vitamin D3)) 2,000 Unit Capsule 2,000 Unit PO BIDAFTMEAL Aspirin Ec (Aspirin) 325 Mg Tablet.dr 325 Mg PO DAILY Clopidogrel (Clopidogrel Bisulfate) 75 Mg Tablet 75 Mg PO DAILY Vitals/I & O Vital Sign - Last 24 Hours 08/10/18 08/10/18 08/10/18 08/10/18 11:22 11:25 14:37 14:37 Temp 98.6 98.6 Pulse 83 83 Resp 18 20 B/P (MAP) 121/69 (86) 121/69 Pulse Ox 97 92 93 O2 Delivery Nasal Cannula Nasal Cannula Nasal Cannula O2 Flow Rate 3.0 3.0 08/10/18 08/10/18 08/10/18 08/10/18 15:40 15:40 16:38 19:00 Temp 98.6 98.2 98.6 98.2 Pulse 83 78 Resp 20 18 19 B/P (MAP) 128/64 (85) 119/67 (84) Pulse Ox 93 92 100 O2 Delivery Nasal Cannula Nasal Cannula Nasal Cannula O2 Flow Rate 3.0 3.0 3.0 08/10/18 08/10/18 08/10/18 08/10/18 20:00 20:31 21:04 22:41 Temp 98.5 98.5 Pulse 88 Resp 17 B/P (MAP) 126/60 (82) Pulse Ox 98 97 O2 Delivery Nasal Cannula Nasal Cannula Nasal Cannula Nasal Cannula O2 Flow Rate 3.0 3.0 3.0 3.0 08/11/18 08/11/18 08/11/18 08/11/18 00:56 02:49 05:37 05:46 Temp 98.7 98.7 Pulse 71 Resp 18 B/P (MAP) 120/61 (80) Pulse Ox 96 O2 Delivery Nasal Cannula Nasal Cannula Nasal Cannula Nasal Cannula O2 Flow Rate 3.0 3.0 3.0 3.0 08/11/18 08/11/18 08/11/18 08/11/18 06:38 07:00 09:00 10:04 Temp 98.2 98.2 Pulse 90 Resp 18 20 B/P (MAP) 94/49 (64) 94/49 Pulse Ox 97 93 O2 Delivery Nasal Cannula 3L Room Air O2 Flow Rate 3.0 Intake and Output 08/10/18 08/10/18 08/11/18 15:00 23:00 07:00 Intake Total 287 ml 437 ml Output Total 150 ml Balance 137 ml 437 ml Nutrition Consultation Dietary Evaluation: Recommendations by RD: Increase Calorie Intake, Protein supplementation Comments: TF at goal providing > 100% est needs to promote wt gain Expected Outcomes/Goals: TF tolerance wt maintainance/ possibly some gain pending on disease process Interpretation of weight loss: >20% in 1 year Malnutrition Findings: Body Fat Depletion (Non Severe: Mod to Severe Weight Status: Underweight BAYLEE SIMS MD Aug 11, 2018 11:03
[2018-08-11] MEDS: METOCLOPRAMIDE ORAL SOLN 10 MG/10 ML SOLUTION. PO SCH ×3 (11:30→21:00)
--- NOTE | 2018-08-11 14:14 | RAD ---
CT CHEST WO CONTRAST Indication: RUL INFILTRATE HYPOXIA NO CONTRAST PREV SENT Exposure: One or more of the following individualized dose reduction techniques were utilized for this examination: 1. Automated exposure control 2. Adjustment of the mA and/or kV according to patient size 3. Use of iterative reconstruction technique. Comparison: June 22, 2018 Contrast: None FINDINGS: Vascular structures: Limited exam without contrast. Aorta is calcified, no evidence of aneurysm. Lymph nodes: Small axillary lymph nodes are identified, mildly increased in size on today's exam, measuring up to 11 mm in short axis. Fullness of the fabi bilaterally is again identified, could be vascular versus mild lymph node enlargement. Mild lymphoid prominence of the mediastinum appears similar, also difficult to evaluate without contrast and due to the lack of much fat. Thyroid gland:Visualized aspect is unremarkable. Heart: Enlarged, coronary artery calcifications. Esophagus: Moderate esophageal wall thickening greatest at its mid to distal aspect, appears similar to the prior study. Pleural spaces: Small pleural effusions bilaterally. Lungs: Right upper lobe opacity is similar to slightly larger on today's exam. Mild atelectasis/infiltrate in the lower lobes slightly worse on the right. Mild interstitial infiltrate in the right middle lobe has developed since the prior study. There is also mild new interstitial infiltrate in the posterior right lower lobe. Trachea and central airways: Patent. Bronchial wall thickening appears stable. Spine: Mild degenerative spondylosis. Bones: No destructive process Upper abdomen: Slices obtained through the upper most abdomen are limited by the noncontrast technique. Limited evaluation due to the lack of contrast and lack of much fat. Impression: 1. Chronic right upper lobe lesion or infiltrate similar to slightly worse since prior study. 2. Mild increase in interstitial infiltrates, typically in the right lung. 3. Esophageal wall thickening, appears similar. 4. Mild axillary lymph node enlargement, worse since prior study. Electronically signed by: Doug Marmolejo MD (08/11/2018 2:11 PM) [facility]
--- NOTE | 2018-08-11 14:17 | PDOC ---
SURGICAL PROGRESS NOTE Subjective Pt with c/o right rib pain, manuel PO, no abd pain Vital Signs Vital Signs Date Time Temp Pulse Resp B/P (MAP) Pulse Ox O2 Delivery O2 Flow Rate FiO2 08/11/18 11:08 Nasal Cannula 3.0 08/11/18 11:00 97.6 72 20 118/63 (81) 100 97.6 I&O Intake and Output 08/11/18 07:00 Intake Total 724 ml Output Total 150 ml Balance 574 ml Intake Oral 200 ml Tube Feeding 524 ml Emesis 150 ml # Voids 4 General: Alert, Oriented X3, Cooperative, mild distress Abdomen: Soft, No tenderness Labs Laboratory Tests Test 08/11/18 06:50 White Blood Count 11.8 x10^3/uL (4.0-11.0) Red Blood Count 4.20 x10^6/uL (3.50-5.40) Hemoglobin 12.6 g/dL (12.0-15.5) Hematocrit 37.8 % (36.0-47.0) Mean Corpuscular Volume 90 fL (79-100) Mean Corpuscular Hemoglobin 30 pg (25-35) Mean Corpuscular Hemoglobin Concent 34 g/dL (31-37) Red Cell Distribution Width 13.6 % (11.5-14.5) Platelet Count 211 x10^3/uL (140-400) Neutrophils (%) (Auto) 48 % (31-73) Lymphocytes (%) (Auto) 15 % (24-48) Monocytes (%) (Auto) 5 % (0-9) Eosinophils (%) (Auto) 32 % (0-3) Basophils (%) (Auto) 0 % (0-3) Neutrophils # (Auto) 5.7 x10^3uL (1.8-7.7) Lymphocytes # (Auto) 1.8 x10^3/uL (1.0-4.8) Monocytes # (Auto) 0.5 x10^3/uL (0.0-1.1) Eosinophils # (Auto) 3.8 x10^3/uL (0.0-0.7) Basophils # (Auto) 0.0 x10^3/uL (0.0-0.2) Sodium Level 138 mmol/L (136-145) Potassium Level 3.7 mmol/L (3.5-5.1) Chloride Level 100 mmol/L (98-107) Carbon Dioxide Level 32 mmol/L (21-32) Anion Gap 6 (6-14) Blood Urea Nitrogen 10 mg/dL (7-20) Creatinine 0.9 mg/dL (0.6-1.0) Estimated GFR (Cockcroft-Gault) 74.1 BUN/Creatinine Ratio 11 (6-20) Glucose Level 132 mg/dL (70-99) Calcium Level 9.3 mg/dL (8.5-10.1) Total Bilirubin 0.4 mg/dL (0.2-1.0) Aspartate Amino Transf (AST/SGOT) 17 U/L (15-37) Alanine Aminotransferase (ALT/SGPT) 12 U/L (14-59) Alkaline Phosphatase 106 U/L (46-116) Total Protein 6.5 g/dL (6.4-8.2) Albumin 2.6 g/dL (3.4-5.0) Albumin/Globulin Ratio 0.7 (1.0-1.7) Laboratory Tests Test 08/11/18 06:50 White Blood Count 11.8 x10^3/uL (4.0-11.0) Red Blood Count 4.20 x10^6/uL (3.50-5.40) Hemoglobin 12.6 g/dL (12.0-15.5) Hematocrit 37.8 % (36.0-47.0) Mean Corpuscular Volume 90 fL (79-100) Mean Corpuscular Hemoglobin 30 pg (25-35) Mean Corpuscular Hemoglobin Concent 34 g/dL (31-37) Red Cell Distribution Width 13.6 % (11.5-14.5) Platelet Count 211 x10^3/uL (140-400) Neutrophils (%) (Auto) 48 % (31-73) Lymphocytes (%) (Auto) 15 % (24-48) Monocytes (%) (Auto) 5 % (0-9) Eosinophils (%) (Auto) 32 % (0-3) Basophils (%) (Auto) 0 % (0-3) Neutrophils # (Auto) 5.7 x10^3uL (1.8-7.7) Lymphocytes # (Auto) 1.8 x10^3/uL (1.0-4.8) Monocytes # (Auto) 0.5 x10^3/uL (0.0-1.1) Eosinophils # (Auto) 3.8 x10^3/uL (0.0-0.7) Basophils # (Auto) 0.0 x10^3/uL (0.0-0.2) Sodium Level 138 mmol/L (136-145) Potassium Level 3.7 mmol/L (3.5-5.1) Chloride Level 100 mmol/L (98-107) Carbon Dioxide Level 32 mmol/L (21-32) Anion Gap 6 (6-14) Blood Urea Nitrogen 10 mg/dL (7-20) Creatinine 0.9 mg/dL (0.6-1.0) Estimated GFR (Cockcroft-Gault) 74.1 BUN/Creatinine Ratio 11 (6-20) Glucose Level 132 mg/dL (70-99) Calcium Level 9.3 mg/dL (8.5-10.1) Total Bilirubin 0.4 mg/dL (0.2-1.0) Aspartate Amino Transf (AST/SGOT) 17 U/L (15-37) Alanine Aminotransferase (ALT/SGPT) 12 U/L (14-59) Alkaline Phosphatase 106 U/L (46-116) Total Protein 6.5 g/dL (6.4-8.2) Albumin 2.6 g/dL (3.4-5.0) Albumin/Globulin Ratio 0.7 (1.0-1.7) Problem List Problems Medical Problems: (1) CHF (congestive heart failure) Status: Acute (2) COPD (chronic obstructive pulmonary disease) Status: Acute Assessment/Plan dysphagia cont eating per speech recs no surgical plan will sign off, but please call for questions. OLI WATTERS MD Aug 11, 2018 14:17
[2018-08-11 15:00] VITALS: BP 106/57
[2018-08-11 19:00] VITALS: BP 117/64
[2018-08-11] MEDS: ATORVASTATIN CALCIUM 40 MG TABLET. PO SCH (21:00)
[2018-08-11] MEDS: PATCH REMOVAL. MC SCH (21:00)
[2018-08-11 23:00] VITALS: BP 132/79
[2018-08-12] MEDS: ALBUTEROL SULFATE 2.5 MG/3 ML NEBU. NEB PRN (02:45)
[2018-08-12 03:00] VITALS: BP 139/85
[2018-08-12] MEDS: HYDROcodone/APAP 5/325MG 1 TAB TABLET PO PRN ×3 (03:35→13:36)
[2018-08-12 06:08] LABS: BASO % 0 % (0-3); EOS # 3.5 x10^3/uL (0.0-0.7); EOS % 28 % (0-3); HEMATOCRIT 34.3 % (36.0-47.0); HEMOGLOBIN 11.5 g/dL (12.0-15.5); LYMPH # 1.4 x10^3/uL (1.0-4.8); LYMPH % 11 % (24-48); MEAN CORPUSCULAR HEMOGLOBIN 30 pg (25-35); MEAN CORPUSCULAR HGB CONC 34 g/dL (31-37); MEAN CORPUSCULAR VOLUME 90 fL (79-100); MONO # 0.6 x10^3/uL (0.0-1.1); MONO % 5 % (0-9); NEUT % 56 % (31-73); PLATELET COUNT 223 x10^3/uL (140-400); RED BLOOD COUNT 3.83 x10^6/uL (3.50-5.40); RED CELL DISTRIBUTION WIDTH 13.6 % (11.5-14.5); WHITE BLOOD COUNT 12.6 x10^3/uL (4.0-11.0)
[2018-08-12 06:21] LABS: ALBUMIN 2.4 g/dL (3.4-5.0); ALBUMIN/GLOBULIN RATIO 0.7 (1.0-1.7); CREATININE 0.8 mg/dL (0.6-1.0); GFR 84.8; POTASSIUM 3.7 mmol/L (3.5-5.1); TOTAL BILIRUBIN 0.3 mg/dL (0.2-1.0)
[2018-08-12 07:00] VITALS: BP 112/67
[2018-08-12] MEDS: IPRATRPIUM/ALBUTEROL 0.5/2.5MG 3 ML NEBU. NEB SCH ×3 (07:10→15:11)
[2018-08-12] MEDS: LIDOCAINE (700MG/PATCH) PATCH. TD SCH (09:50)
[2018-08-12] MEDS: CLOPIDOGREL BISULFATE 75 MG TABLET PO SCH (09:51)
[2018-08-12] MEDS: METOCLOPRAMIDE ORAL SOLN 10 MG/10 ML SOLUTION. PO SCH ×2 (09:51→13:34)
[2018-08-12] MEDS: ASPIRIN ENTERIC COATED 325 MG TABLET.DR. PO SCH (09:52)
[2018-08-12] MEDS: FUROSEMIDE 20 MG TABLET PO SCH (09:52)
[2018-08-12] MEDS: LANSOPRAZOLE 30 MG TAB.RAP.DR FT SCH (09:53)
[2018-08-12] MEDS: LISINOPRIL 10 MG TABLET PO SCH (09:53)
[2018-08-12] MEDS: CHOLECALCIFEROL (VITAMIN D3) 1,000 UNIT TABLET PO SCH (09:54)
--- NOTE | 2018-08-12 10:23 | PDOC ---
PROGRESS NOTES Chief Complaint Chief Complaint SOA. Abnormal CT chest revealing right upper lobe infiltrate compared to the film 06/27 s/p bronch (`08/05/18) - Chronic right upper lobe lesion or infiltrate similar to slightly worse since prior study. Mild increase in interstitial infiltrates, typically in the right lung. Esophageal wall thickening, appears similar. by ct chest 08-11 Indwelling pacer Chronic A.fib Cardiomyopathy, ejection fraction 10%-15%. Undernourished-BMI 15.3/Cachexia Hx bulimia Hypoxic respiratory failure Questionable hx COPD Indwelling PEG sec to SEVERE GASTROPARESIS confirmed by GET hypotension responsive to fluids fell 08/09, right chest wall pain, on lidoderm patch, severe protein-caloric malnutrition QUALIFIED WITH 6 min walk for home o2 d/c home with [facility]/ home health History of Present Illness History of Present Illness Bronch Results noted - some respi orquidea hypotension thursday that rsoved with IVF very dry and cachectic GET 08/11 She does her TF at home EMESIS REPORTED 08/11 HAs PEG bec of severe gastroparesis hx Gen surg consult, GI Following vomiting and reflux from G tube, poor nutrition, may need J tube COnt TF aspiration pneumonitis, persists, ct chest Vitals Vitals Vital Signs Date Time Temp Pulse Resp B/P (MAP) Pulse Ox O2 Delivery O2 Flow Rate FiO2 08/12/18 09:53 88 112/67 08/12/18 09:52 94 Nasal Cannula 3.0 08/12/18 07:00 98.7 16 98.7 Physical Exam General: Alert, Oriented X3, Cooperative, mild distress Heart: Regular rate, Normal S1, Normal S2, No murmurs Lungs: Clear, Other (decrease bases) Abdomen: Normal bowel sounds, Soft, No tenderness Extremities: No clubbing, No cyanosis Skin: No rashes, No breakdown Labs LABS CT CHEST WO CONTRAST Indication: RUL INFILTRATE HYPOXIA NO CONTRAST PREV SENT Exposure: One or more of the following individualized dose reduction techniques were utilized for this examination: 1. Automated exposure control 2. Adjustment of the mA and/or kV according to patient size 3. Use of iterative reconstruction technique. Comparison: June 22, 2018 Contrast: None FINDINGS: Vascular structures: Limited exam without contrast. Aorta is calcified, no evidence of aneurysm. Lymph nodes: Small axillary lymph nodes are identified, mildly increased in size on today's exam, measuring up to 11 mm in short axis. Fullness of the fabi bilaterally is again identified, could be vascular versus mild lymph node enlargement. Mild lymphoid prominence of the mediastinum appears similar, also difficult to evaluate without contrast and due to the lack of much fat. Thyroid gland:Visualized aspect is unremarkable. Heart: Enlarged, coronary artery calcifications. Esophagus: Moderate esophageal wall thickening greatest at its mid to distal aspect, appears similar to the prior study. Pleural spaces: Small pleural effusions bilaterally. Lungs: Right upper lobe opacity is similar to slightly larger on today's exam. Mild atelectasis/infiltrate in the lower lobes slightly worse on the right. Mild interstitial infiltrate in the right middle lobe has developed since the prior study. There is also mild new interstitial infiltrate in the posterior right lower lobe. Trachea and central airways: Patent. Bronchial wall thickening appears stable. Spine: Mild degenerative spondylosis. Bones: No destructive process Upper abdomen: Slices obtained through the upper most abdomen are limited by the noncontrast technique. Limited evaluation due to the lack of contrast and lack of much fat. Impression: 1. Chronic right upper lobe lesion or infiltrate similar to slightly worse since prior study. 2. Mild increase in interstitial infiltrates, typically in the right lung. 3. Esophageal wall thickening, appears similar. 4. Mild axillary lymph node enlargement, worse since prior study. Electronically signed by: Doug Marmolejo MD (08/11/2018 2:11 PM) [facility] Laboratory Tests Test 08/12/18 05:13 White Blood Count 12.6 x10^3/uL (4.0-11.0) Red Blood Count 3.83 x10^6/uL (3.50-5.40) Hemoglobin 11.5 g/dL (12.0-15.5) Hematocrit 34.3 % (36.0-47.0) Mean Corpuscular Volume 90 fL (79-100) Mean Corpuscular Hemoglobin 30 pg (25-35) Mean Corpuscular Hemoglobin Concent 34 g/dL (31-37) Red Cell Distribution Width 13.6 % (11.5-14.5) Platelet Count 223 x10^3/uL (140-400) Neutrophils (%) (Auto) 56 % (31-73) Lymphocytes (%) (Auto) 11 % (24-48) Monocytes (%) (Auto) 5 % (0-9) Eosinophils (%) (Auto) 28 % (0-3) Basophils (%) (Auto) 0 % (0-3) Neutrophils # (Auto) 7.0 x10^3uL (1.8-7.7) Lymphocytes # (Auto) 1.4 x10^3/uL (1.0-4.8) Monocytes # (Auto) 0.6 x10^3/uL (0.0-1.1) Eosinophils # (Auto) 3.5 x10^3/uL (0.0-0.7) Basophils # (Auto) 0.0 x10^3/uL (0.0-0.2) Sodium Level 139 mmol/L (136-145) Potassium Level 3.7 mmol/L (3.5-5.1) Chloride Level 102 mmol/L (98-107) Carbon Dioxide Level 31 mmol/L (21-32) Anion Gap 6 (6-14) Blood Urea Nitrogen 11 mg/dL (7-20) Creatinine 0.8 mg/dL (0.6-1.0) Estimated GFR (Cockcroft-Gault) 84.8 BUN/Creatinine Ratio 14 (6-20) Glucose Level 85 mg/dL (70-99) Calcium Level 9.0 mg/dL (8.5-10.1) Total Bilirubin 0.3 mg/dL (0.2-1.0) Aspartate Amino Transf (AST/SGOT) 14 U/L (15-37) Alanine Aminotransferase (ALT/SGPT) 12 U/L (14-59) Alkaline Phosphatase 97 U/L (46-116) Total Protein 6.0 g/dL (6.4-8.2) Albumin 2.4 g/dL (3.4-5.0) Albumin/Globulin Ratio 0.7 (1.0-1.7) Assessment and Plan Assessmemt and Plan Problems Medical Problems: (1) CHF (congestive heart failure) Status: Acute (2) COPD (chronic obstructive pulmonary disease) Status: Acute Comment Review of Relevant I have reviewed the following items loren (where applicable) has been applied. Labs Laboratory Tests Test 08/11/18 06:50 08/12/18 05:13 White Blood Count 11.8 x10^3/uL (4.0-11.0) 12.6 x10^3/uL (4.0-11.0) Red Blood Count 4.20 x10^6/uL (3.50-5.40) 3.83 x10^6/uL (3.50-5.40) Hemoglobin 12.6 g/dL (12.0-15.5) 11.5 g/dL (12.0-15.5) Hematocrit 37.8 % (36.0-47.0) 34.3 % (36.0-47.0) Mean Corpuscular Volume 90 fL (79-100) 90 fL (79-100) Mean Corpuscular Hemoglobin 30 pg (25-35) 30 pg (25-35) Mean Corpuscular Hemoglobin Concent 34 g/dL (31-37) 34 g/dL (31-37) Red Cell Distribution Width 13.6 % (11.5-14.5) 13.6 % (11.5-14.5) Platelet Count 211 x10^3/uL (140-400) 223 x10^3/uL (140-400) Neutrophils (%) (Auto) 48 % (31-73) 56 % (31-73) Lymphocytes (%) (Auto) 15 % (24-48) 11 % (24-48) Monocytes (%) (Auto) 5 % (0-9) 5 % (0-9) Eosinophils (%) (Auto) 32 % (0-3) 28 % (0-3) Basophils (%) (Auto) 0 % (0-3) 0 % (0-3) Neutrophils # (Auto) 5.7 x10^3uL (1.8-7.7) 7.0 x10^3uL (1.8-7.7) Lymphocytes # (Auto) 1.8 x10^3/uL (1.0-4.8) 1.4 x10^3/uL (1.0-4.8) Monocytes # (Auto) 0.5 x10^3/uL (0.0-1.1) 0.6 x10^3/uL (0.0-1.1) Eosinophils # (Auto) 3.8 x10^3/uL (0.0-0.7) 3.5 x10^3/uL (0.0-0.7) Basophils # (Auto) 0.0 x10^3/uL (0.0-0.2) 0.0 x10^3/uL (0.0-0.2) Sodium Level 138 mmol/L (136-145) 139 mmol/L (136-145) Potassium Level 3.7 mmol/L (3.5-5.1) 3.7 mmol/L (3.5-5.1) Chloride Level 100 mmol/L (98-107) 102 mmol/L (98-107) Carbon Dioxide Level 32 mmol/L (21-32) 31 mmol/L (21-32) Anion Gap 6 (6-14) 6 (6-14) Blood Urea Nitrogen 10 mg/dL (7-20) 11 mg/dL (7-20) Creatinine 0.9 mg/dL (0.6-1.0) 0.8 mg/dL (0.6-1.0) Estimated GFR (Cockcroft-Gault) 74.1 84.8 BUN/Creatinine Ratio 11 (6-20) 14 (6-20) Glucose Level 132 mg/dL (70-99) 85 mg/dL (70-99) Calcium Level 9.3 mg/dL (8.5-10.1) 9.0 mg/dL (8.5-10.1) Total Bilirubin 0.4 mg/dL (0.2-1.0) 0.3 mg/dL (0.2-1.0) Aspartate Amino Transf (AST/SGOT) 17 U/L (15-37) 14 U/L (15-37) Alanine Aminotransferase (ALT/SGPT) 12 U/L (14-59) 12 U/L (14-59) Alkaline Phosphatase 106 U/L (46-116) 97 U/L (46-116) Total Protein 6.5 g/dL (6.4-8.2) 6.0 g/dL (6.4-8.2) Albumin 2.6 g/dL (3.4-5.0) 2.4 g/dL (3.4-5.0) Albumin/Globulin Ratio 0.7 (1.0-1.7) 0.7 (1.0-1.7) Laboratory Tests Test 08/12/18 05:13 White Blood Count 12.6 x10^3/uL (4.0-11.0) Red Blood Count 3.83 x10^6/uL (3.50-5.40) Hemoglobin 11.5 g/dL (12.0-15.5) Hematocrit 34.3 % (36.0-47.0) Mean Corpuscular Volume 90 fL (79-100) Mean Corpuscular Hemoglobin 30 pg (25-35) Mean Corpuscular Hemoglobin Concent 34 g/dL (31-37) Red Cell Distribution Width 13.6 % (11.5-14.5) Platelet Count 223 x10^3/uL (140-400) Neutrophils (%) (Auto) 56 % (31-73) Lymphocytes (%) (Auto) 11 % (24-48) Monocytes (%) (Auto) 5 % (0-9) Eosinophils (%) (Auto) 28 % (0-3) Basophils (%) (Auto) 0 % (0-3) Neutrophils # (Auto) 7.0 x10^3uL (1.8-7.7) Lymphocytes # (Auto) 1.4 x10^3/uL (1.0-4.8) Monocytes # (Auto) 0.6 x10^3/uL (0.0-1.1) Eosinophils # (Auto) 3.5 x10^3/uL (0.0-0.7) Basophils # (Auto) 0.0 x10^3/uL (0.0-0.2) Sodium Level 139 mmol/L (136-145) Potassium Level 3.7 mmol/L (3.5-5.1) Chloride Level 102 mmol/L (98-107) Carbon Dioxide Level 31 mmol/L (21-32) Anion Gap 6 (6-14) Blood Urea Nitrogen 11 mg/dL (7-20) Creatinine 0.8 mg/dL (0.6-1.0) Estimated GFR (Cockcroft-Gault) 84.8 BUN/Creatinine Ratio 14 (6-20) Glucose Level 85 mg/dL (70-99) Calcium Level 9.0 mg/dL (8.5-10.1) Total Bilirubin 0.3 mg/dL (0.2-1.0) Aspartate Amino Transf (AST/SGOT) 14 U/L (15-37) Alanine Aminotransferase (ALT/SGPT) 12 U/L (14-59) Alkaline Phosphatase 97 U/L (46-116) Total Protein 6.0 g/dL (6.4-8.2) Albumin 2.4 g/dL (3.4-5.0) Albumin/Globulin Ratio 0.7 (1.0-1.7) Microbiology 08/05/18 AFB Specimen Processing Tissue - Final, Resulted 08/05/18 Acid Fast Bacilli Culture, Resulted Pending 08/05/18 Gram Stain - Final, Resulted 08/05/18 Fungal Culture, Resulted Pending 08/05/18 Fungal Culture Result 1, Resulted Pending Medications Current Medications Albuterol/ Ipratropium (Duoneb) 3 ml 1X ONCE NEB Last administered on at 02:08; Start 08/04/18 at 02:00; Stop 08/04/18 at 02:01; Status DC Ondansetron HCl (Zofran) 4 mg 1X ONCE IV Last administered on 08/04/18at 02:18 ; Start 08/04/18 at 02:15; Stop 08/04/18 at 02:20; Status DC Ondansetron HCl (Zofran) 4 mg PRN Q8HRS PRN IV NAUSEA/VOMITING; Start at 02:45; Stop 08/04/18 at 08:33; Status DC Acetaminophen (Tylenol) 650 mg PRN Q4HRS PRN PO FEVER; Start 08/04/18 at 02:45 ; Stop 08/05/18 at 02:45; Status DC Prednisone (Prednisone) 50 mg 1X ONCE PO Last administered on 08/04/18at 02:57 ; Start 08/04/18 at 02:45; Stop 08/04/18 at 02:46; Status DC Levofloxacin (Levaquin) 500 mg 1X ONCE PO Last administered on 08/04/18at 02: 58; Start 08/04/18 at 02:45; Stop 08/04/18 at 02:46; Status DC Albuterol/ Ipratropium (Duoneb) 3 ml PRN Q4HRS PRN NEB dyspnea or wheezing.; Start 08/04/18 at 02:45; Stop 08/04/18 at 02:45; Status DC Albuterol Sulfate (Ventolin Neb Soln) 2.5 mg PRN Q4HRS PRN NEB dyspnea or wheezing. Last administered on 08/12/18 02:45; Start 08/04/18 at 02:45 Influenza Virus Vaccine (Afluria Trivalent [id number] Syringe) 0.5 ml ONCE ONCE VAX IM Last administered on 08/04/18 09:31; Start 08/04/18 at 09:00; Stop 08/04/18 at 09:01; Status DC Ondansetron HCl (Zofran) 4 mg PRN Q6HRS PRN IV NAUSEA/VOMITING, 1ST CHOICE Last administered on 08/11/18 01:01; Start 08/04/18 at 08:45 Albuterol/ Ipratropium (Duoneb) 3 ml RTQID NEB Last administered on 08/12/18 07:10; Start 08/04/18 at 09:00 Guaifenesin (Robitussin Dm) 10 ml PRN Q6HRS PRN PO COUGH Last administered on 08/08/18 19:21; Start 08/04/18 at 08:45 Aspirin (Ecotrin) 325 mg DAILY PO Last administered on 08/12/18 09:52; Start 08/04/18 at 09:00 Atorvastatin Calcium (Lipitor) 40 mg HS PO Last administered on 08/11/18 21: 00; Start 08/04/18 at 21:00 Carvedilol (Coreg) 6.25 mg BIDWMEALS PO Last administered on 08/06/18 08:31; Start 08/04/18 at 09:00; Stop 08/06/18 at 11:30; Status DC Clopidogrel Bisulfate (Plavix) 75 mg DAILY PO Last administered on 08/12/18 09 :51; Start 08/04/18 at 09:00 Furosemide (Lasix) 40 mg DAILY PO Last administered on 08/06/18 08:31; Start 08/04/18 at 09:00; Stop 08/06/18 at 11:30; Status DC Lisinopril (Prinivil) 20 mg DAILY PO Last administered on 08/06/18 08:31; Start 08/04/18 at 09:00; Stop 08/06/18 at 11:30; Status DC Tramadol HCl (Ultram) 50 mg PRN Q6HRS PRN PO MILD PAIN Last administered on 10/ 29/18at 21:52; Start 08/04/18 at 08:45 Vitamin D (Vitamin D3) 2,000 unit BIDAFTMEAL PO Last administered on 08/12/18at 09:54; Start 08/04/18 at 09:00 Ondansetron HCl (Zofran Odt) 4 mg PRN Q8HRS PRN PO NAUSEA/VOMITING; Start at 08:45 Pantoprazole Sodium (Protonix) 40 mg PRN DAILY PRN PO HEARBURN/GAS; Start at 07:30; Stop 08/09/18 at 12:37; Status DC Guaifenesin (Robitussin Dm) 10 ml PRN Q6HRS PRN PO COUGH; Start 08/04/18 at 08 :45; Status UNV Sodium Chloride (Normal Saline Flush) 3 ml QSHIFT PRN IV AFTER MEDS AND BLOOD DRAWS; Start 08/05/18 at 08:45 Lidocaine HCl 100 ml PRN 1X PRN MM MOUTH PAIN Last administered on 08/05/18at 12:28; Start 08/05/18 at 08:45; Stop 08/06/18 at 08:44; Status DC Lidocaine HCl (Lidocaine 1% 50ml Vial) 50 ml PRN 1X PRN INJ SEE COMMENTS Last administered on 08/05/18at 12:28; Start 08/05/18 at 08:45; Stop 08/06/18 at 08 :44; Status DC Epinephrine HCl (Adrenalin) 1 mg PRN 1X PRN INJ SEE COMMENTS; Start 08/05/18 at 08:45; Stop 08/06/18 at 08:44; Status DC Lidocaine HCl 50 ml PRN 1X PRN MM SEE COMMENTS Last administered on 08/05/18at 12:27; Start 08/05/18 at 08:45; Stop 08/06/18 at 08:44; Status DC Epinephrine HCl (Adrenalin) 1 mg STK-MED ONCE .ROUTE ; Start 08/05/18 at 08:48 ; Stop 08/05/18 at 08:49; Status DC Lidocaine HCl (Lidocaine 1% 50ml Vial) 50 ml STK-MED ONCE .ROUTE ; Start at 08:49; Stop 08/05/18 at 08:50; Status DC Lidocaine HCl 100 ml STK-MED ONCE .ROUTE ; Start 08/05/18 at 08:49; Stop 08/05 at 08:50; Status DC Lidocaine HCl 50 ml STK-MED ONCE .ROUTE ; Start 08/05/18 at 08:49; Stop at 08:50; Status DC Ringer's Solution 1,000 ml @ 100 mls/hr Q10H IV Last administered on at 08:43; Start 08/05/18 at 11:45; Stop 08/06/18 at 09:18; Status DC Propofol 0 ml @ As Directed STK-MED ONCE IV ; Start 08/05/18 at 12:09; Stop at 12:10; Status DC Ondansetron HCl (Zofran) 4 mg PRN Q6HRS PRN IV NAUSEA/VOMITING; Start at 12:15; Stop 08/06/18 at 12:14; Status DC Fentanyl Citrate (Fentanyl 2ml Vial) 25 mcg PRN Q5MIN PRN IV MILD PAIN; Start 08/05/18 at 12:15; Stop 08/06/18 at 12:14; Status DC Fentanyl Citrate (Fentanyl 2ml Vial) 50 mcg PRN Q5MIN PRN IV MODERATE TO SEVERE PAIN; Start 08/05/18 at 12:15; Stop 08/06/18 at 12:14; Status DC Morphine Sulfate (Morphine Sulfate) 1 mg PRN Q10MIN PRN IV SEVERE PAIN; Start 08/05/18 at 12:15; Stop 08/06/18 at 12:14; Status DC Ringer's Solution 1,000 ml @ 30 mls/hr Q24H IV ; Start 08/05/18 at 12:12; Stop 08/06/18 at 00:11; Status DC Lidocaine HCl (Xylocaine-Mpf 1% 2ml Vial) 2 ml 1X PRN PRN ID IV START; Start 08/05/18 at 12:15; Stop 08/06/18 at 12:14; Status DC Hydromorphone HCl (Dilaudid) 0.5 mg PRN Q10MIN PRN IV SEV PAIN, Second choice; Start 08/05/18 at 12:15; Stop 08/06/18 at 12:14; Status DC Prochlorperazine Edisylate (Compazine) 5 mg PACU PRN PRN IV NAUSEA, MRX1; Start 08/05/18 at 12:15; Stop 08/06/18 at 12:14; Status DC Etomidate (Amidate) 20 mg STK-MED ONCE IV ; Start 08/05/18 at 12:00; Stop at 09:05; Status DC Sodium Chloride 1,000 ml @ 100 mls/hr Q10H IV Last administered on 08/06/18at 13:01; Start 08/06/18 at 11:30; Stop 08/07/18 at 06:49; Status DC Sodium Chloride 500 ml @ 500 mls/hr 1X ONCE IV Last administered on at 11:30; Start 08/06/18 at 11:30; Stop 08/06/18 at 12:29; Status DC Furosemide (Lasix) 20 mg DAILY PO Last administered on 08/12/18at 09:52; Start 08/07/18 at 09:00 Lisinopril (Prinivil) 10 mg DAILY PO Last administered on 08/12/18at 09:53; Start 08/07/18 at 09:00 Meropenem 1 gm/ Sodium Chloride 100 ml @ 200 mls/hr Q8HRS IV ; Start 08/06/18 at 14:00; Status UNV Levofloxacin/ Dextrose 150 ml @ 100 mls/hr Q48H IV Last administered on at 13:15; Start 08/06/18 at 12:30; Stop 08/08/18 at 13:28; Status DC Prochlorperazine Edisylate (Compazine) 10 mg PRN Q6HRS PRN IV NAUSEA/VOMITING, 2ND CHOICE Last administered on 08/06/18at 20:00; Start 08/06/18 at 19:45 Lorazepam (Ativan) 1 mg PRN Q4HRS PRN IV ANXIETY / AGITATION Last administered on 08/11/18at 10:45; Start 08/06/18 at 20:00 Lactobacillus Rhamnosus (Culturelle) 1 cap BID PO ; Start 08/07/18 at 21:00; Stop 08/07/18 at 21:00; Status DC Levofloxacin (Levaquin) 250 mg DAILY06 PO Last administered on 08/12/18at 03:35 ; Start 08/09/18 at 06:00 Sodium Chloride (Saline Mist Nasal) 1 yenifer PRN Q1HR PRN NS NASAL CONGESTION Last administered on 08/09/18at 06:03; Start 08/08/18 at 23:30 Lidocaine (Lidoderm) 1 patch DAILY TD Last administered on 08/12/18at 09:50; Start 08/09/18 at 11:45 Miscellaneous (Lidoderm Patch Removal) 1 ea QHS MC Last administered on at 21:00; Start 08/09/18 at 21:00 Lansoprazole (Prevacid) 30 mg DAILYAC FT Last administered on 08/12/18at 09:53; Start 08/09/18 at 13:00 Acetaminophen/ Hydrocodone Bitart (Lortab 5/325) 1 tab PRN Q4HRS PRN PO MODERATE/SEVERE PAIN Last administered on 08/12/18at 09:52; Start 08/09/18 at 18 :30 Metoclopramide HCl (Reglan Oral Solution) 5 mg QIDACHS PO Last administered on 08/12/18at 09:51; Start 08/11/18 at 11:30 Active Scripts Active Levofloxacin 250 Mg Tablet 250 Mg PO DAILY06 Doxycycline Hyclate 100 Mg Capsule 1 Cap PO BID Furosemide 40 Mg Tablet 40 Mg PO DAILY 30 Days Zofran (Ondansetron Hcl) 4 Mg Tablet 1 Tab PO Q8HRS PRN Reported Protonix (Pantoprazole Sodium) 20 Mg Tablet.dr 40 Mg PO PRN DAILY PRN Ultram (Tramadol Hcl) 50 Mg Tablet 50 Mg PO Q6HRS PRN Duoneb 0.5-3(2.5) Mg/3 Ml (Albuterol/Ipratropium) 3 Ml Ampul.neb 3 Ml NEB QID Atorvastatin Calcium 40 Mg Tablet 40 Mg PO HS Lisinopril 20 Mg Tablet 20 Mg PO DAILY Carvedilol 6.25 Mg Tablet 6.25 Mg PO BIDWMEALS Vitamin D (Cholecalciferol (Vitamin D3)) 2,000 Unit Capsule 2,000 Unit PO BIDAFTMEAL Aspirin Ec (Aspirin) 325 Mg Tablet.dr 325 Mg PO DAILY Clopidogrel (Clopidogrel Bisulfate) 75 Mg Tablet 75 Mg PO DAILY Vitals/I & O Vital Sign - Last 24 Hours 08/11/18 08/11/18 08/11/18 08/11/18 11:00 11:08 15:00 16:35 Temp 97.6 98.8 97.6 98.8 Pulse 72 78 Resp 20 18 B/P (MAP) 118/63 (81) 106/57 (73) Pulse Ox 100 93 94 O2 Delivery 3L Nasal Cannula 3L Nasal Cannula O2 Flow Rate 3.0 2.0 08/11/18 08/11/18 08/11/18 08/11/18 17:47 19:00 19:00 20:00 Temp 98.8 98.8 Pulse 103 Resp 20 19 18 B/P (MAP) 117/64 (81) Pulse Ox 93 93 93 O2 Delivery Nasal Cannula Nasal Cannula Nasal Cannula O2 Flow Rate 3.0 08/11/18 08/11/18 08/11/18 08/12/18 20:05 22:20 23:00 02:46 Temp 99.3 99.3 Pulse 94 Resp 18 B/P (MAP) 132/79 (96) Pulse Ox 96 91 94 O2 Delivery Nasal Cannula Nasal Cannula Nasal Cannula Nasal Cannula O2 Flow Rate 3.0 3.0 2.0 3.0 08/12/18 08/12/18 08/12/18 08/12/18 03:00 03:35 04:35 07:00 Temp 98.5 98.7 98.5 98.7 Pulse 96 88 Resp 18 16 B/P (MAP) 139/85 (103) 112/67 (82) Pulse Ox 91 97 O2 Delivery Nasal Cannula Nasal Cannula Nasal Cannula Nasal Cannula O2 Flow Rate 2.0 3.0 3.0 3.0 08/12/18 08/12/18 08/12/18 07:11 09:52 09:53 Pulse 88 B/P (MAP) 112/67 Pulse Ox 94 94 O2 Delivery Nasal Cannula Nasal Cannula O2 Flow Rate 3.0 3.0 Intake and Output 08/11/18 08/11/18 08/12/18 15:00 23:00 07:00 Intake Total 887 ml 737 ml 630 ml Balance 887 ml 737 ml 630 ml Nutrition Consultation Dietary Evaluation: Recommendations by RD: Increase Calorie Intake, Protein supplementation Comments: TF at goal providing > 100% est needs to promote wt gain Expected Outcomes/Goals: TF tolerance wt maintainance/ possibly some gain pending on disease process Interpretation of weight loss: >20% in 1 year Malnutrition Findings: Body Fat Depletion (Non Severe: Mod to Severe Weight Status: Underweight FULBRIGHT,BAYLEE W MD Aug 12, 2018 10:23
[2018-08-12 11:00] VITALS: BP 127/58
--- NOTE | 2018-08-12 11:41 | PDOC ---
Subjective: Subjective: Tells me did tube feeds this morning. Thinks Reglan has helped her cough. Objective: Objective: Reviewed w/ RN - home today on O2? Vital Signs: Vital Signs Date Time Temp Pulse Resp B/P (MAP) Pulse Ox O2 Delivery O2 Flow Rate FiO2 08/12/18 11:11 Nasal Cannula 3.0 08/12/18 10:52 94 08/12/18 09:53 88 112/67 08/12/18 07:00 98.7 16 98.7 Labs: Laboratory Tests Test 08/12/18 05:13 White Blood Count 12.6 x10^3/uL Red Blood Count 3.83 x10^6/uL Hemoglobin 11.5 g/dL Hematocrit 34.3 % Mean Corpuscular Volume 90 fL Mean Corpuscular Hemoglobin 30 pg Mean Corpuscular Hemoglobin Concent 34 g/dL Red Cell Distribution Width 13.6 % Platelet Count 223 x10^3/uL Neutrophils (%) (Auto) 56 % Lymphocytes (%) (Auto) 11 % Monocytes (%) (Auto) 5 % Eosinophils (%) (Auto) 28 % Basophils (%) (Auto) 0 % Neutrophils # (Auto) 7.0 x10^3uL Lymphocytes # (Auto) 1.4 x10^3/uL Monocytes # (Auto) 0.6 x10^3/uL Eosinophils # (Auto) 3.5 x10^3/uL Basophils # (Auto) 0.0 x10^3/uL Sodium Level 139 mmol/L Potassium Level 3.7 mmol/L Chloride Level 102 mmol/L Carbon Dioxide Level 31 mmol/L Anion Gap 6 Blood Urea Nitrogen 11 mg/dL Creatinine 0.8 mg/dL Estimated GFR (Cockcroft-Gault) 84.8 BUN/Creatinine Ratio 14 Glucose Level 85 mg/dL Calcium Level 9.0 mg/dL Total Bilirubin 0.3 mg/dL Aspartate Amino Transf (AST/SGOT) 14 U/L Alanine Aminotransferase (ALT/SGPT) 12 U/L Alkaline Phosphatase 97 U/L Total Protein 6.0 g/dL Albumin 2.4 g/dL Albumin/Globulin Ratio 0.7 Imaging: Chest CT Impression: 1. Chronic right upper lobe lesion or infiltrate similar to slightly worse since prior study. 2. Mild increase in interstitial infiltrates, typically in the right lung. 3. Esophageal wall thickening, appears similar. 4. Mild axillary lymph node enlargement, worse since prior study. [employer] Bedside Swallow Eval Bedside swallow eval completed. Pt tells me she "chokes" and indicates this occurs when she feels food stop "here" pointing to mid-sternum. Pt also reported to RN and myself that she recently vomited. Limited po trials attempted this date. Most recent [facility] videoswallow was 06/2016 w/findings of mild oral dysphagia and WNLs pharyngeal stage. IMPRESSIONS: Current findings c/w previous video; oropharyngeal swallow WFLs. Suspect esophageal dysphagia given pt hx and current c/o. Pt has PEG for meds and supplemental non-oral nutrition. Oropharyngeal swallow appears safe for regular consistency items; however, pt restricts diet d/t esophageal issues. Would allow po intake of regular consistency as manuel. and encourage non-oral supplements as indicated. RECOMMENDATIONS: Adv to regular consistency diet w/thin liquids; supplemental non-oral nutrition via PEG as needed w/dietitian input. No further [employer] f/u indicated at this time. PE: GEN: NAD - has four unopened containers of PEG feed on tray, breakfast tray untouched LUNGS: NC HEART: RRR ABD: PEG in place NEURO/PSYCH: A & O 3 A/P: H/o abnormal swallowing w/ PEG -- Reglan helping? Really doing tube feeds? DC per primary. FARHAN AKINS Aug 12, 2018 11:41
[2018-08-12] MEDS ORDERED: VANCOMYCIN PER PHARMACY MC PRN (11:45)
[2018-08-12] MEDS ORDERED: VANCOMYCIN 1.25 GM in IV NORMAL SALINE 250ML 250 ML IV ONE (12:00)
[2018-08-12] MEDS: traMADol 50 MG TABLET PO PRN (13:36)
--- NOTE | 2018-08-12 13:53 | PDOC ---
PULMONARY PROGRESS NOTES Subjective c/o bilateral rib pain Vitals Vital Signs Date Time Temp Pulse Resp B/P (MAP) Pulse Ox O2 Delivery O2 Flow Rate FiO2 08/12/18 13:36 97 Nasal Cannula 3.0 08/12/18 11:00 98.9 95 16 127/58 (81) 98.9 ROS: No Chest Pain, No Abdominal Pain General: Alert, No acute distress HEENT: Other Lungs: Other (decrease bases) Cardiovascular: S1 Abdomen: Soft, Non-tender Neuro Exam: Alert Extremities: No Edema Skin: Warm Labs Laboratory Tests Test 08/11/18 06:50 08/12/18 05:13 White Blood Count 11.8 x10^3/uL (4.0-11.0) 12.6 x10^3/uL (4.0-11.0) Red Blood Count 4.20 x10^6/uL (3.50-5.40) 3.83 x10^6/uL (3.50-5.40) Hemoglobin 12.6 g/dL (12.0-15.5) 11.5 g/dL (12.0-15.5) Hematocrit 37.8 % (36.0-47.0) 34.3 % (36.0-47.0) Mean Corpuscular Volume 90 fL (79-100) 90 fL (79-100) Mean Corpuscular Hemoglobin 30 pg (25-35) 30 pg (25-35) Mean Corpuscular Hemoglobin Concent 34 g/dL (31-37) 34 g/dL (31-37) Red Cell Distribution Width 13.6 % (11.5-14.5) 13.6 % (11.5-14.5) Platelet Count 211 x10^3/uL (140-400) 223 x10^3/uL (140-400) Neutrophils (%) (Auto) 48 % (31-73) 56 % (31-73) Lymphocytes (%) (Auto) 15 % (24-48) 11 % (24-48) Monocytes (%) (Auto) 5 % (0-9) 5 % (0-9) Eosinophils (%) (Auto) 32 % (0-3) 28 % (0-3) Basophils (%) (Auto) 0 % (0-3) 0 % (0-3) Neutrophils # (Auto) 5.7 x10^3uL (1.8-7.7) 7.0 x10^3uL (1.8-7.7) Lymphocytes # (Auto) 1.8 x10^3/uL (1.0-4.8) 1.4 x10^3/uL (1.0-4.8) Monocytes # (Auto) 0.5 x10^3/uL (0.0-1.1) 0.6 x10^3/uL (0.0-1.1) Eosinophils # (Auto) 3.8 x10^3/uL (0.0-0.7) 3.5 x10^3/uL (0.0-0.7) Basophils # (Auto) 0.0 x10^3/uL (0.0-0.2) 0.0 x10^3/uL (0.0-0.2) Sodium Level 138 mmol/L (136-145) 139 mmol/L (136-145) Potassium Level 3.7 mmol/L (3.5-5.1) 3.7 mmol/L (3.5-5.1) Chloride Level 100 mmol/L (98-107) 102 mmol/L (98-107) Carbon Dioxide Level 32 mmol/L (21-32) 31 mmol/L (21-32) Anion Gap 6 (6-14) 6 (6-14) Blood Urea Nitrogen 10 mg/dL (7-20) 11 mg/dL (7-20) Creatinine 0.9 mg/dL (0.6-1.0) 0.8 mg/dL (0.6-1.0) Estimated GFR (Cockcroft-Gault) 74.1 84.8 BUN/Creatinine Ratio 11 (6-20) 14 (6-20) Glucose Level 132 mg/dL (70-99) 85 mg/dL (70-99) Calcium Level 9.3 mg/dL (8.5-10.1) 9.0 mg/dL (8.5-10.1) Total Bilirubin 0.4 mg/dL (0.2-1.0) 0.3 mg/dL (0.2-1.0) Aspartate Amino Transf (AST/SGOT) 17 U/L (15-37) 14 U/L (15-37) Alanine Aminotransferase (ALT/SGPT) 12 U/L (14-59) 12 U/L (14-59) Alkaline Phosphatase 106 U/L (46-116) 97 U/L (46-116) Total Protein 6.5 g/dL (6.4-8.2) 6.0 g/dL (6.4-8.2) Albumin 2.6 g/dL (3.4-5.0) 2.4 g/dL (3.4-5.0) Albumin/Globulin Ratio 0.7 (1.0-1.7) 0.7 (1.0-1.7) Laboratory Tests Test 08/12/18 05:13 White Blood Count 12.6 x10^3/uL (4.0-11.0) Red Blood Count 3.83 x10^6/uL (3.50-5.40) Hemoglobin 11.5 g/dL (12.0-15.5) Hematocrit 34.3 % (36.0-47.0) Mean Corpuscular Volume 90 fL (79-100) Mean Corpuscular Hemoglobin 30 pg (25-35) Mean Corpuscular Hemoglobin Concent 34 g/dL (31-37) Red Cell Distribution Width 13.6 % (11.5-14.5) Platelet Count 223 x10^3/uL (140-400) Neutrophils (%) (Auto) 56 % (31-73) Lymphocytes (%) (Auto) 11 % (24-48) Monocytes (%) (Auto) 5 % (0-9) Eosinophils (%) (Auto) 28 % (0-3) Basophils (%) (Auto) 0 % (0-3) Neutrophils # (Auto) 7.0 x10^3uL (1.8-7.7) Lymphocytes # (Auto) 1.4 x10^3/uL (1.0-4.8) Monocytes # (Auto) 0.6 x10^3/uL (0.0-1.1) Eosinophils # (Auto) 3.5 x10^3/uL (0.0-0.7) Basophils # (Auto) 0.0 x10^3/uL (0.0-0.2) Sodium Level 139 mmol/L (136-145) Potassium Level 3.7 mmol/L (3.5-5.1) Chloride Level 102 mmol/L (98-107) Carbon Dioxide Level 31 mmol/L (21-32) Anion Gap 6 (6-14) Blood Urea Nitrogen 11 mg/dL (7-20) Creatinine 0.8 mg/dL (0.6-1.0) Estimated GFR (Cockcroft-Gault) 84.8 BUN/Creatinine Ratio 14 (6-20) Glucose Level 85 mg/dL (70-99) Calcium Level 9.0 mg/dL (8.5-10.1) Total Bilirubin 0.3 mg/dL (0.2-1.0) Aspartate Amino Transf (AST/SGOT) 14 U/L (15-37) Alanine Aminotransferase (ALT/SGPT) 12 U/L (14-59) Alkaline Phosphatase 97 U/L (46-116) Total Protein 6.0 g/dL (6.4-8.2) Albumin 2.4 g/dL (3.4-5.0) Albumin/Globulin Ratio 0.7 (1.0-1.7) Medications Active Scripts Medications Dose Route/Sig Max Daily Dose Days Date Category Doxycycline Hyclate 100 Mg Capsule 1 Cap PO BID 06/23/18 Rx Protonix (Pantoprazole Sodium) 20 Mg Tablet.dr 40 Mg PO PRN DAILY PRN 06/22/18 Reported Furosemide 40 Mg Tablet 40 Mg PO DAILY 30 05/23/18 Rx Ultram (Tramadol Hcl) 50 Mg Tablet 50 Mg PO Q6HRS PRN 04/20/18 Reported Duoneb 0.5-3(2.5) Mg/3 Ml (Albuterol/Ipratropium) 3 Ml Ampul.neb 3 Ml NEB QID 04/17/18 Reported Zofran (Ondansetron Hcl) 4 Mg Tablet 1 Tab PO Q8HRS PRN 05/19/16 Rx Atorvastatin Calcium 40 Mg Tablet 40 Mg PO HS 09/24/15 Reported Lisinopril 20 Mg Tablet 20 Mg PO DAILY 09/24/15 Reported Carvedilol 6.25 Mg Tablet 6.25 Mg PO BIDWMEALS 09/24/15 Reported Vitamin D (Cholecalciferol (Vitamin D3)) 2,000 Unit Capsule 2,000 Unit PO BIDAFTMEAL 01/07/15 Reported Aspirin Ec (Aspirin) 325 Mg Tablet.dr 325 Mg PO DAILY 01/07/15 Reported Clopidogrel (Clopidogrel Bisulfate) 75 Mg Tablet 75 Mg PO DAILY 01/07/[address] chest 08/11 1. Chronic right upper lobe lesion or infiltrate similar to slightly worse since prior study. 2. Mild increase in interstitial infiltrates, typically in the right lung. 3. Esophageal wall thickening, appears similar. 4. Mild axillary lymph node enlargement, worse since prior study. Impression . IMPRESSION: 1. Abnormal CT chest revealing right upper lobe infiltrate compared to the film of June of 2016 and it has increased in size. s/p Bronch 2. Protein malnutrition, present upon admission. 3. Status post percutaneous endoscopic gastrostomy placement for dysphagia and bulimia. 4. Cardiomyopathy, ejection fraction 10%-15%. 5. Chronic obstructive pulmonary disease, unknown FEV1. 6. BULLEMIA 7. CHRONIC ASPIRATION/ Delayed gastric emptying (mild) Plan . 6 MIN WALK DONE/ QUALIFIES FOR O2 SPEECH/ GI REC FOLLOW UP ON BAL CULTURE. SO FAR NO GROWTH/ NORMAL LENORE. YEAST ISOLATED/ NO NEED TO TREAT FOLLOW UP ON PT RECOMMENDATION FOR HOME OR SNU DC PLANS PER PCP F/U CXR NEEDED ABX/ LEVAQUIN F/U CT IN 6-8 WEEKS JEFF MCDONNELL MD Aug 12, 2018 13:53
[2018-08-12 15:00] VITALS: BP 142/108
--- NOTE | 2018-08-12 15:52 | PDOC3 ---
Discharge Summary Date of Admission: Aug 04, 2018 Date of Discharge: Aug 12, 2018 Follow-Up: 1-2 days Admitting Diagnosis comment: Chief Complaint Chief Complaint SOA. Abnormal CT chest revealing right upper lobe infiltrate compared to the film 06/27 s/p bronch (`08/05/18) - Chronic right upper lobe lesion or infiltrate similar to slightly worse since prior study. Mild increase in interstitial infiltrates, typically in the right lung. Esophageal wall thickening, appears similar. by ct chest 08-11 Indwelling pacer Chronic A.fib Cardiomyopathy, ejection fraction 10%-15%. Undernourished-BMI 15.3/Cachexia Hx bulimia Hypoxic respiratory failure Questionable hx COPD Indwelling PEG sec to SEVERE GASTROPARESIS confirmed by GET hypotension responsive to fluids fell 08/09, right chest wall pain, on lidoderm patch, severe protein-caloric malnutrition QUALIFIED WITH 6 min walk for home o2 d/c home with levaquin/ home health History of Present Illness History of Present Illness Bronch Results noted - some respi orquidea hypotension thursday that rsoved with IVF very dry and cachectic GET 08/11 She does her TF at home EMESIS REPORTED 08/11, better HAs PEG bec of severe gastroparesis hx Gen surg consult, GI Following vomiting and reflux from G tube, stable COnt TF aspiration pneumonitis, d/c on levaquin ct chest 02 at home approved Vitals Vitals Vital Signs Date Time Temp Pulse Resp B/P (MAP) Pulse Ox O2 Delivery O2 Flow Rate FiO2 08/12/18 09:53 88 112/67 08/12/18 09:52 94 Nasal Cannula 3.0 08/12/18 07:00 98.7 16 98.7 Physical Exam General: Alert, Oriented X3, Cooperative, no distress Heart: Regular rate, Normal S1, Normal S2, No murmurs Lungs: Clear, Other (decrease bases) Abdomen: Normal bowel sounds, Soft, No tenderness Extremities: No clubbing, No cyanosis Skin: No rashes, No breakdown Labs LABS FINAL DIAGNOSIS Problems Medical Problems: (1) CHF (congestive heart failure) Status: Acute (2) COPD (chronic obstructive pulmonary disease) Status: Acute Brief Hospital Course Ms. Mcduffie is a 73 old [sex] who presented with [ pneumonitis] CONDITION AT DISCHARGE: Improved Discharge Medications Current Medications Albuterol/ Ipratropium (Duoneb) 3 ml 1X ONCE NEB Last administered on at 02:08; Start 08/04/18 at 02:00; Stop 08/04/18 at 02:01; Status DC Ondansetron HCl (Zofran) 4 mg 1X ONCE IV Last administered on 08/04/18at 02:18 ; Start 08/04/18 at 02:15; Stop 08/04/18 at 02:20; Status DC Ondansetron HCl (Zofran) 4 mg PRN Q8HRS PRN IV NAUSEA/VOMITING; Start at 02:45; Stop 08/04/18 at 08:33; Status DC Acetaminophen (Tylenol) 650 mg PRN Q4HRS PRN PO FEVER; Start 08/04/18 at 02:45 ; Stop 08/05/18 at 02:45; Status DC Prednisone (Prednisone) 50 mg 1X ONCE PO Last administered on 08/04/18at 02:57 ; Start 08/04/18 at 02:45; Stop 08/04/18 at 02:46; Status DC Levofloxacin (Levaquin) 500 mg 1X ONCE PO Last administered on 08/04/18at 02: 58; Start 08/04/18 at 02:45; Stop 08/04/18 at 02:46; Status DC Albuterol/ Ipratropium (Duoneb) 3 ml PRN Q4HRS PRN NEB dyspnea or wheezing.; Start 08/04/18 at 02:45; Stop 08/04/18 at 02:45; Status DC Albuterol Sulfate (Ventolin Neb Soln) 2.5 mg PRN Q4HRS PRN NEB dyspnea or wheezing. Last administered on 08/12/18at 02:45; Start 08/04/18 at 02:45 Influenza Virus Vaccine (Afluria Trivalent [id number] Syringe) 0.5 ml ONCE ONCE VAX IM Last administered on 08/04/18at 09:31; Start 08/04/18 at 09:00; Stop 08/04/18 at 09:01; Status DC Ondansetron HCl (Zofran) 4 mg PRN Q6HRS PRN IV NAUSEA/VOMITING, 1ST CHOICE Last administered on 08/11/18at 01:01; Start 08/04/18 at 08:45 Albuterol/ Ipratropium (Duoneb) 3 ml RTQID NEB Last administered on 08/12/18at 15:11; Start 08/04/18 at 09:00 Guaifenesin (Robitussin Dm) 10 ml PRN Q6HRS PRN PO COUGH Last administered on 08/08/18at 19:21; Start 08/04/18 at 08:45 Aspirin (Ecotrin) 325 mg DAILY PO Last administered on 08/12/18 09:52; Start 08/04/18 at 09:00 Atorvastatin Calcium (Lipitor) 40 mg HS PO Last administered on 08/11/18at 21: 00; Start 08/04/18 at 21:00 Carvedilol (Coreg) 6.25 mg BIDWMEALS PO Last administered on 08/06/18 08:31; Start 08/04/18 at 09:00; Stop 08/06/18 at 11:30; Status DC Clopidogrel Bisulfate (Plavix) 75 mg DAILY PO Last administered on 08/12/18at 09 :51; Start 08/04/18 at 09:00 Furosemide (Lasix) 40 mg DAILY PO Last administered on 08/06/18at 08:31; Start 08/04/18 at 09:00; Stop 08/06/18 at 11:30; Status DC Lisinopril (Prinivil) 20 mg DAILY PO Last administered on 08/06/18at 08:31; Start 08/04/18 at 09:00; Stop 08/06/18 at 11:30; Status DC Tramadol HCl (Ultram) 50 mg PRN Q6HRS PRN PO MILD PAIN Last administered on 08/12/18at 13:36; Start 08/04/18 at 08:45 Vitamin D (Vitamin D3) 2,000 unit BIDAFTMEAL PO Last administered on 08/12/18 09:54; Start 08/04/18 at 09:00 Ondansetron HCl (Zofran Odt) 4 mg PRN Q8HRS PRN PO NAUSEA/VOMITING; Start at 08:45 Pantoprazole Sodium (Protonix) 40 mg PRN DAILY PRN PO HEARBURN/GAS; Start at 07:30; Stop 08/09/18 at 12:37; Status DC Guaifenesin (Robitussin Dm) 10 ml PRN Q6HRS PRN PO COUGH; Start 08/04/18 at 08 :45; Status UNV Sodium Chloride (Normal Saline Flush) 3 ml QSHIFT PRN IV AFTER MEDS AND BLOOD DRAWS; Start 08/05/18 at 08:45 Lidocaine HCl 100 ml PRN 1X PRN MM MOUTH PAIN Last administered on 08/05/18at 12:28; Start 08/05/18 at 08:45; Stop 08/06/18 at 08:44; Status DC Lidocaine HCl (Lidocaine 1% 50ml Vial) 50 ml PRN 1X PRN INJ SEE COMMENTS Last administered on 08/05/18at 12:28; Start 08/05/18 at 08:45; Stop 08/06/18 at 08 :44; Status DC Epinephrine HCl (Adrenalin) 1 mg PRN 1X PRN INJ SEE COMMENTS; Start 08/05/18 at 08:45; Stop 08/06/18 at 08:44; Status DC Lidocaine HCl 50 ml PRN 1X PRN MM SEE COMMENTS Last administered on 08/05/18at 12:27; Start 08/05/18 at 08:45; Stop 08/06/18 at 08:44; Status DC Epinephrine HCl (Adrenalin) 1 mg STK-MED ONCE .ROUTE ; Start 08/05/18 at 08:48 ; Stop 08/05/18 at 08:49; Status DC Lidocaine HCl (Lidocaine 1% 50ml Vial) 50 ml STK-MED ONCE .ROUTE ; Start at 08:49; Stop 08/05/18 at 08:50; Status DC Lidocaine HCl 100 ml STK-MED ONCE .ROUTE ; Start 08/05/18 at 08:49; Stop 08/05 at 08:50; Status DC Lidocaine HCl 50 ml STK-MED ONCE .ROUTE ; Start 08/05/18 at 08:49; Stop at 08:50; Status DC Ringer's Solution 1,000 ml @ 100 mls/hr Q10H IV Last administered on at 08:43; Start 08/05/18 at 11:45; Stop 08/06/18 at 09:18; Status DC Propofol 0 ml @ As Directed STK-MED ONCE IV ; Start 08/05/18 at 12:09; Stop at 12:10; Status DC Ondansetron HCl (Zofran) 4 mg PRN Q6HRS PRN IV NAUSEA/VOMITING; Start at 12:15; Stop 08/06/18 at 12:14; Status DC Fentanyl Citrate (Fentanyl 2ml Vial) 25 mcg PRN Q5MIN PRN IV MILD PAIN; Start 08/05/18 at 12:15; Stop 08/06/18 at 12:14; Status DC Fentanyl Citrate (Fentanyl 2ml Vial) 50 mcg PRN Q5MIN PRN IV MODERATE TO SEVERE PAIN; Start 08/05/18 at 12:15; Stop 08/06/18 at 12:14; Status DC Morphine Sulfate (Morphine Sulfate) 1 mg PRN Q10MIN PRN IV SEVERE PAIN; Start 08/05/18 at 12:15; Stop 08/06/18 at 12:14; Status DC Ringer's Solution 1,000 ml @ 30 mls/hr Q24H IV ; Start 08/05/18 at 12:12; Stop 08/06/18 at 00:11; Status DC Lidocaine HCl (Xylocaine-Mpf 1% 2ml Vial) 2 ml 1X PRN PRN ID IV START; Start 08/05/18 at 12:15; Stop 08/06/18 at 12:14; Status DC Hydromorphone HCl (Dilaudid) 0.5 mg PRN Q10MIN PRN IV SEV PAIN, Second choice; Start 08/05/18 at 12:15; Stop 08/06/18 at 12:14; Status DC Prochlorperazine Edisylate (Compazine) 5 mg PACU PRN PRN IV NAUSEA, MRX1; Start 08/05/18 at 12:15; Stop 08/06/18 at 12:14; Status DC Etomidate (Amidate) 20 mg STK-MED ONCE IV ; Start 08/05/18 at 12:00; Stop at 09:05; Status DC Sodium Chloride 1,000 ml @ 100 mls/hr Q10H IV Last administered on 08/06/18at 13:01; Start 08/06/18 at 11:30; Stop 08/07/18 at 06:49; Status DC Sodium Chloride 500 ml @ 500 mls/hr 1X ONCE IV Last administered on at 11:30; Start 08/06/18 at 11:30; Stop 08/06/18 at 12:29; Status DC Furosemide (Lasix) 20 mg DAILY PO Last administered on 08/12/18at 09:52; Start 08/07/18 at 09:00 Lisinopril (Prinivil) 10 mg DAILY PO Last administered on 08/12/18at 09:53; Start 08/07/18 at 09:00 Meropenem 1 gm/ Sodium Chloride 100 ml @ 200 mls/hr Q8HRS IV ; Start 08/06/18 at 14:00; Status UNV Levofloxacin/ Dextrose 150 ml @ 100 mls/hr Q48H IV Last administered on at 13:15; Start 08/06/18 at 12:30; Stop 08/08/18 at 13:28; Status DC Prochlorperazine Edisylate (Compazine) 10 mg PRN Q6HRS PRN IV NAUSEA/VOMITING, 2ND CHOICE Last administered on 08/06/18at 20:00; Start 08/06/18 at 19:45 Lorazepam (Ativan) 1 mg PRN Q4HRS PRN IV ANXIETY / AGITATION Last administered on 08/11/18at 10:45; Start 08/06/18 at 20:00 Lactobacillus Rhamnosus (Culturelle) 1 cap BID PO ; Start 08/07/18 at 21:00; Stop 08/07/18 at 21:00; Status DC Levofloxacin (Levaquin) 250 mg DAILY06 PO Last administered on 08/12/18at 03:35 ; Start 08/09/18 at 06:00 Sodium Chloride (Saline Mist Nasal) 1 yenifer PRN Q1HR PRN NS NASAL CONGESTION Last administered on 08/09/18at 06:03; Start 08/08/18 at 23:30 Lidocaine (Lidoderm) 1 patch DAILY TD Last administered on 08/12/18at 09:50; Start 08/09/18 at 11:45 Miscellaneous (Lidoderm Patch Removal) 1 ea QHS MC Last administered on at 21:00; Start 08/09/18 at 21:00 Lansoprazole (Prevacid) 30 mg DAILYAC FT Last administered on 08/12/18at 09:53; Start 08/09/18 at 13:00 Acetaminophen/ Hydrocodone Bitart (Lortab 5/325) 1 tab PRN Q4HRS PRN PO MODERATE/SEVERE PAIN Last administered on 08/12/18at 13:36; Start 08/09/18 at 18 :30 Metoclopramide HCl (Reglan Oral Solution) 5 mg QIDACHS PO Last administered on 08/12/18at 13:34; Start 08/11/18 at 11:30 Vancomycin HCl (Vanco Per Pharmacy) 1 each PRN DAILY PRN MC SEE COMMENTS; Start 08/12/18 at 11:45 Vancomycin HCl 1.25 gm/Sodium Chloride 250 ml @ 167 mls/hr ONCE ONCE IV Last administered on 08/12/18at 13:35; Start 08/12/18 at 12:00; Stop 08/12/18 at 13:29 ; Status DC Active Scripts Active Levofloxacin 250 Mg Tablet 250 Mg PO DAILY06 Doxycycline Hyclate 100 Mg Capsule 1 Cap PO BID Furosemide 40 Mg Tablet 40 Mg PO DAILY 30 Days Zofran (Ondansetron Hcl) 4 Mg Tablet 1 Tab PO Q8HRS PRN Reported Protonix (Pantoprazole Sodium) 20 Mg Tablet.dr 40 Mg PO PRN DAILY PRN Ultram (Tramadol Hcl) 50 Mg Tablet 50 Mg PO Q6HRS PRN Duoneb 0.5-3(2.5) Mg/3 Ml (Albuterol/Ipratropium) 3 Ml Ampul.neb 3 Ml NEB QID Atorvastatin Calcium 40 Mg Tablet 40 Mg PO HS Lisinopril 20 Mg Tablet 20 Mg PO DAILY Carvedilol 6.25 Mg Tablet 6.25 Mg PO BIDWMEALS Vitamin D (Cholecalciferol (Vitamin D3)) 2,000 Unit Capsule 2,000 Unit PO BIDAFTMEAL Aspirin Ec (Aspirin) 325 Mg Tablet.dr 325 Mg PO DAILY Clopidogrel (Clopidogrel Bisulfate) 75 Mg Tablet 75 Mg PO DAILY Vital Signs Vital Signs Date Time Temp Pulse Resp B/P (MAP) Pulse Ox O2 Delivery O2 Flow Rate FiO2 08/12/18 15:14 95 Nasal Cannula 3.0 08/12/18 11:00 98.9 95 16 127/58 (81) 98.9 Labs Laboratory Tests Test 08/11/18 06:50 08/12/18 05:13 White Blood Count 11.8 x10^3/uL (4.0-11.0) 12.6 x10^3/uL (4.0-11.0) Red Blood Count 4.20 x10^6/uL (3.50-5.40) 3.83 x10^6/uL (3.50-5.40) Hemoglobin 12.6 g/dL (12.0-15.5) 11.5 g/dL (12.0-15.5) Hematocrit 37.8 % (36.0-47.0) 34.3 % (36.0-47.0) Mean Corpuscular Volume 90 fL (79-100) 90 fL (79-100) Mean Corpuscular Hemoglobin 30 pg (25-35) 30 pg (25-35) Mean Corpuscular Hemoglobin Concent 34 g/dL (31-37) 34 g/dL (31-37) Red Cell Distribution Width 13.6 % (11.5-14.5) 13.6 % (11.5-14.5) Platelet Count 211 x10^3/uL (140-400) 223 x10^3/uL (140-400) Neutrophils (%) (Auto) 48 % (31-73) 56 % (31-73) Lymphocytes (%) (Auto) 15 % (24-48) 11 % (24-48) Monocytes (%) (Auto) 5 % (0-9) 5 % (0-9) Eosinophils (%) (Auto) 32 % (0-3) 28 % (0-3) Basophils (%) (Auto) 0 % (0-3) 0 % (0-3) Neutrophils # (Auto) 5.7 x10^3uL (1.8-7.7) 7.0 x10^3uL (1.8-7.7) Lymphocytes # (Auto) 1.8 x10^3/uL (1.0-4.8) 1.4 x10^3/uL (1.0-4.8) Monocytes # (Auto) 0.5 x10^3/uL (0.0-1.1) 0.6 x10^3/uL (0.0-1.1) Eosinophils # (Auto) 3.8 x10^3/uL (0.0-0.7) 3.5 x10^3/uL (0.0-0.7) Basophils # (Auto) 0.0 x10^3/uL (0.0-0.2) 0.0 x10^3/uL (0.0-0.2) Sodium Level 138 mmol/L (136-145) 139 mmol/L (136-145) Potassium Level 3.7 mmol/L (3.5-5.1) 3.7 mmol/L (3.5-5.1) Chloride Level 100 mmol/L (98-107) 102 mmol/L (98-107) Carbon Dioxide Level 32 mmol/L (21-32) 31 mmol/L (21-32) Anion Gap 6 (6-14) 6 (6-14) Blood Urea Nitrogen 10 mg/dL (7-20) 11 mg/dL (7-20) Creatinine 0.9 mg/dL (0.6-1.0) 0.8 mg/dL (0.6-1.0) Estimated GFR (Cockcroft-Gault) 74.1 84.8 BUN/Creatinine Ratio 11 (6-20) 14 (6-20) Glucose Level 132 mg/dL (70-99) 85 mg/dL (70-99) Calcium Level 9.3 mg/dL (8.5-10.1) 9.0 mg/dL (8.5-10.1) Total Bilirubin 0.4 mg/dL (0.2-1.0) 0.3 mg/dL (0.2-1.0) Aspartate Amino Transf (AST/SGOT) 17 U/L (15-37) 14 U/L (15-37) Alanine Aminotransferase (ALT/SGPT) 12 U/L (14-59) 12 U/L (14-59) Alkaline Phosphatase 106 U/L (46-116) 97 U/L (46-116) Total Protein 6.5 g/dL (6.4-8.2) 6.0 g/dL (6.4-8.2) Albumin 2.6 g/dL (3.4-5.0) 2.4 g/dL (3.4-5.0) Albumin/Globulin Ratio 0.7 (1.0-1.7) 0.7 (1.0-1.7) Laboratory Tests Test 08/12/18 05:13 White Blood Count 12.6 x10^3/uL (4.0-11.0) Red Blood Count 3.83 x10^6/uL (3.50-5.40) Hemoglobin 11.5 g/dL (12.0-15.5) Hematocrit 34.3 % (36.0-47.0) Mean Corpuscular Volume 90 fL (79-100) Mean Corpuscular Hemoglobin 30 pg (25-35) Mean Corpuscular Hemoglobin Concent 34 g/dL (31-37) Red Cell Distribution Width 13.6 % (11.5-14.5) Platelet Count 223 x10^3/uL (140-400) Neutrophils (%) (Auto) 56 % (31-73) Lymphocytes (%) (Auto) 11 % (24-48) Monocytes (%) (Auto) 5 % (0-9) Eosinophils (%) (Auto) 28 % (0-3) Basophils (%) (Auto) 0 % (0-3) Neutrophils # (Auto) 7.0 x10^3uL (1.8-7.7) Lymphocytes # (Auto) 1.4 x10^3/uL (1.0-4.8) Monocytes # (Auto) 0.6 x10^3/uL (0.0-1.1) Eosinophils # (Auto) 3.5 x10^3/uL (0.0-0.7) Basophils # (Auto) 0.0 x10^3/uL (0.0-0.2) Sodium Level 139 mmol/L (136-145) Potassium Level 3.7 mmol/L (3.5-5.1) Chloride Level 102 mmol/L (98-107) Carbon Dioxide Level 31 mmol/L (21-32) Anion Gap 6 (6-14) Blood Urea Nitrogen 11 mg/dL (7-20) Creatinine 0.8 mg/dL (0.6-1.0) Estimated GFR (Cockcroft-Gault) 84.8 BUN/Creatinine Ratio 14 (6-20) Glucose Level 85 mg/dL (70-99) Calcium Level 9.0 mg/dL (8.5-10.1) Total Bilirubin 0.3 mg/dL (0.2-1.0) Aspartate Amino Transf (AST/SGOT) 14 U/L (15-37) Alanine Aminotransferase (ALT/SGPT) 12 U/L (14-59) Alkaline Phosphatase 97 U/L (46-116) Total Protein 6.0 g/dL (6.4-8.2) Albumin 2.4 g/dL (3.4-5.0) Albumin/Globulin Ratio 0.7 (1.0-1.7) Allergies Allergies Coded Allergies Type Severity Reaction Last Updated Verified Penicillins Allergy Intermediate hives 08/05/18 Yes Sulfa (Sulfonamide Antibiotics) Allergy Intermediate hives 08/05/18 Yes Disposition/Orders: D/C to Home w/ HH Patient Instructions d/c planning 33 min BAYLEE SIMS MD Aug 12, 2018 15:52
--- NOTE | 2018-08-12 15:53 | DISCH ---
DISCHARGE WITH HOME HEALTH DISCHARGE INFORMATION: Final Diagnosis: Problems Medical Problems: (1) CHF (congestive heart failure) Status: Acute (2) COPD (chronic obstructive pulmonary disease) Status: Acute Condition on Discharge: Stable CODE STATUS: Code Status: Full HOME HEALTH: Face to Face: I certify this patient is under my care and that I, or a nurse practitioner or physician's carpenter assistant working with me, had a face to face encounter that meets the physician face to face encounter requirements with this patient on []. Medical Complications: COPD Physical Therapy For: Evalulation/Treatment Occupational Therapy For: Evaluation/Treatment Home Health Aide For: Self-care BALL ENDER For: Community Resources Pt Meets Homebound Status: Unsteady balance w/ amb, POST DISCHARGE ORDERS: Activity Instructions for Disc: Resume previous activity, Activity as tolerated Weight Bearing Status after Di: No restrictions DIET AFTER DISCHARGE: Cardiac Wound/Incision Care: No wound care needed CHECKS AFTER DISCHARGE: Checks after discharge: Weigh Yourself Daily TREATMENT/EQUIPMENT ORDERS: Adaptive Equipment Issued: None Discharge Respiratory Equipmen: Oxygen CERTIFICATION STATEMENT: Certification Statement: Certification Statement: Based on the above finding, I certify that this patient is confined to the home and needs intermittent fpc care, physical therapy and/or speech therapy, or continues to need occupational therapy.~ This patient is under my care, and I have initiated the establishment of the plan of care.~ This patient will be followed by myself or a community physician who will periodically review the plan of care. Home Meds Active Scripts Levofloxacin (LEVOFLOXACIN) 250 Mg Tablet, 250 MG PO DAILY06, #10 TAB Prov:NIKKI JANSEN MD 08/09/18 Doxycycline Hyclate (DOXYCYCLINE HYCLATE) 100 Mg Capsule, 1 CAP PO BID, #14 CAP Prov:MIRANDA MORENO MD 06/23/18 Furosemide (FUROSEMIDE) 40 Mg Tablet, 40 MG PO DAILY for 30 Days, #30 TAB Prov:ALFRED CASTORENA MD 05/23/18 Ondansetron Hcl (ZOFRAN) 4 Mg Tablet, 1 TAB PO Q8HRS PRN for NAUSEA, #20 TAB Prov:KATIANA QUIROS DO 05/19/16 Reported Medications Pantoprazole Sodium (PROTONIX) 20 Mg Tablet.dr, 40 MG PO PRN DAILY PRN for HEARTBURN / GAS, TAB 06/22/18 Tramadol Hcl (ULTRAM) 50 Mg Tablet, 50 MG PO Q6HRS PRN for PAIN, TAB 0 Refills 04/20/18 Ipratropium/Albuterol Sulfate (DUONEB 0.5-3(2.5) MG/3 ML) 3 Ml Ampul.neb, 3 ML NEB QID, EACH 04/17/18 Atorvastatin Calcium (ATORVASTATIN CALCIUM) 40 Mg Tablet, 40 MG PO HS for FOR CHOLESTEROL, #30 TAB 0 Refills 09/24/15 Lisinopril (LISINOPRIL) 20 Mg Tablet, 20 MG PO DAILY for FOR HYPERTENSION, #30 TAB 0 Refills 09/24/15 Carvedilol (CARVEDILOL) 6.25 Mg Tablet, 6.25 MG PO BIDWMEALS, TAB 09/24/15 Cholecalciferol (Vitamin D3) (VITAMIN D) 2,000 Unit Capsule, 2000 UNIT PO BIDAFTMEAL 01/07/15 Aspirin (ASPIRIN EC) 325 Mg Tablet., 325 MG PO DAILY 01/07/15 Clopidogrel Bisulfate (CLOPIDOGREL) 75 Mg Tablet, 75 MG PO DAILY for TO PREVENT BLOOD CLOTS, #30 TAB 0 Refills 01/07/15 BAYLEE SIMS MD Aug 12, 2018 15:53
[2018-08-12] MEDS ORDERED: LEVO500T59 PO (15:56)
[2018-08-13] MEDS ORDERED: VANCOMYCIN 750 MG in IV NORMAL SALINE 250ML 250 ML IV SCH (13:30)
[2018-08-13] MEDS ORDERED: FLUT12AE2 INH (19:58)
[2018-08-13] MEDS ORDERED: TRAM50TA PO (19:58)
== END 2018-08-12 18:00 | disposition home health service (06) | DRG 177 ==
LOC: ER 01:44 → 5 SOUTH 02:30
PROVIDERS: ADMIT Family Medicine; ATTEND Family Medicine
PROC: 5A09357 Assistance with Respiratory Ventilation, Less than 24 Consecutive Hours, Continuous Positive Airway Pressure (ICD-10-PCS; 2018-08-04)
PROC: 0B9C8ZX Drainage of Right Upper Lung Lobe, Via Natural or Artificial Opening Endoscopic, Diagnostic (ICD-10-PCS; principal; 2018-08-05 12:30)
DX: J69.0 Pneumonitis due to inhalation of food and vomit (principal); E43 Unspecified severe protein-calorie malnutrition; J96.91 Respiratory failure, unspecified with hypoxia; I42.9 Cardiomyopathy, unspecified; I50.42 Chronic combined systolic (congestive) and diastolic (congestive) heart failure; J44.1 Chronic obstructive pulmonary disease with (acute) exacerbation; Z68.1 Body mass index [BMI] 19.9 or less, adult; E78.5 Hyperlipidemia, unspecified; I11.0 Hypertensive heart disease with heart failure; I25.10 Atherosclerotic heart disease of native coronary artery without angina pectoris; I34.0 Nonrheumatic mitral (valve) insufficiency; I25.2 Old myocardial infarction; I48.2 Chronic atrial fibrillation; K21.9 Gastro-esophageal reflux disease without esophagitis; K31.84 Gastroparesis; W18.39XA Other fall on same level, initial encounter; Y92.238 Other place in hospital as the place of occurrence of the external cause; Z79.01 Long term (current) use of anticoagulants; Z82.3 Family history of stroke; Z82.49 Family history of ischemic heart disease and other diseases of the circulatory system; Z86.59 Personal history of other mental and behavioral disorders; Z87.891 Personal history of nicotine dependence; Z90.49 Acquired absence of other specified parts of digestive tract; Z90.710 Acquired absence of both cervix and uterus; Z93.1 Gastrostomy status; Z95.5 Presence of coronary angioplasty implant and graft; Z95.810 Presence of automatic (implantable) cardiac defibrillator; Z88.0 Allergy status to penicillin; Z88.2 Allergy status to sulfonamides; Z79.899 Other long term (current) drug therapy; Y93.89 Activity, other specified; Y99.8 Other external cause status
CPT/HCPCS: 31622; 36415; 71045; 71101; 71250; 78264; 80048; 80053; 82533; 83880; 84443; 84484; 85007; 85025; 85610; 85651; 85730; 87070; 87102; 87116; 87205; 88112; 88305; 90471; 90756; 93005; 94618; 94640; 94660; 94760; A9541; J0780; J1956; J2060; J2405; J2704; J3370; J7030; J7040; J7050; J7120; J7512; J7613; J7620; J8597; 92610; 97110; 97116; 97530; 97535; 99285-25; Q2035

== ENCOUNTER 2018-08-13 15:58 | Inpatient (IN) | payer OTHER ==
[~2018-08-13] VITALS: Ht 152.4 cm; Wt 46.7 kg
[~2018-08-13 15:58] MED LIST changes: +LEVO250T7 PO
[2018-08-13 16:15] LABS: BASO # 0.1 x10^3/uL (0.0-0.2); BASO % 1 % (0-3); EOS # 4.3 x10^3/uL (0.0-0.7); EOS % 33 % (0-3); HEMOGLOBIN 13.5 g/dL (12.0-15.5); LYMPH # 2.2 x10^3/uL (1.0-4.8); LYMPH % 17 % (24-48); MEAN CORPUSCULAR HEMOGLOBIN 30 pg (25-35); MEAN CORPUSCULAR HGB CONC 34 g/dL (31-37); MEAN CORPUSCULAR VOLUME 90 fL (79-100); MONO # 0.6 x10^3/uL (0.0-1.1); MONO % 5 % (0-9); NEUT # 5.9 x10^3uL (1.8-7.7); NEUT % 45 % (31-73); PLATELET COUNT 277 x10^3/uL (140-400); RED BLOOD COUNT 4.46 x10^6/uL (3.50-5.40); RED CELL DISTRIBUTION WIDTH 14.1 % (11.5-14.5)
[2018-08-13] MEDS ORDERED: ALBUTEROL SULFATE 2.5 MG/3 ML NEBU. CONT NEB ONE (16:15)
[2018-08-13 16:24] LABS: PROTHROMBIN TIME PATIENT 12.8 SEC (11.7-14.0)
[2018-08-13 16:31] LABS: BASE EXCESS ABG 2 mmol/L (-3-3); HCO3 ABG 27 mmol/L (21-28); PCO2 ABG 46 mmHg (35-46); PO2 ABG 89 mmHg (65-108); SAT O2 ABG 96 % (92-99)
[2018-08-13 16:33] LABS: FIO2 ABG 35
[2018-08-13 16:34] LABS: CALCIUM 9.8 mg/dL (8.5-10.1); CREATININE 0.8 mg/dL (0.6-1.0); GFR 84.8; POTASSIUM 4.5 mmol/L (3.5-5.1)
[2018-08-13 16:40] LABS: ALBUMIN 2.8 g/dL (3.4-5.0); ALBUMIN/GLOBULIN RATIO 0.6 (1.0-1.7); TOTAL BILIRUBIN 0.3 mg/dL (0.2-1.0); TOTAL PROTEIN 7.3 g/dL (6.4-8.2)
--- NOTE | 2018-08-13 16:40 | RAD ---
Examination: PORTABLE CHEST 1V History: ER PATIENT. SHORTNESS OF AIR, SYNCOPE. Hx HTN, COPD, CAD, PACEMAKER. PRIOR XRAY Comparison/Correlation: 08/11/2018 CT chest without contrast Findings: Portable upright frontal view of the chest was obtained. Dual-lead left-sided ICD is present. Heart size is mildly enlarged. Pulmonary vasculature is congested. No pneumothorax. No significant effusion. No focal consolidation. Mild pulmonary hyperinflation noted. Impression: Mild pulmonary vasculature congestion. No significant change. Electronically signed by: Barrie Acosta MD (08/13/2018 4:36 PM) [facility]
[2018-08-13] MEDS ORDERED: FUROSEMIDE 20 MG/2 ML VIAL. IVP ONE (16:45)
[2018-08-13] MEDS ORDERED: levOFLOXacin PER PHARMACY. MC PRN ×2 (16:45→18:30)
[2018-08-13] MEDS ORDERED: methylPREDNISolone SOD SUCC PF 125 MG/2 ML VIAL. IV ONE (16:45)
[2018-08-13] MEDS ORDERED: VANCOMYCIN PER PHARMACY MC PRN (16:45)
[2018-08-13 16:55] LABS: % EOS 26 % (0-5); % LYMPHS 14 % (24-48); % MONOS 5 % (0-10); % SEGS 55 % (35-66); PLT ESTIMATE ADEQUATE (ADEQUATE); TOXIC GRANULATION SLIGHT; TOXIC VACUOLATION SLIGHT
[2018-08-13] MEDS ORDERED: VANCOMYCIN 1.25 GM in IV NORMAL SALINE 250ML 250 ML IV ONE (17:00)
--- NOTE | 2018-08-13 17:52 | PHYS DOC ---
Past Medical History Past Medical History: CAD, CHF, COPD, Hypertension, PA Past Surgical History: Appendectomy, Hysterectomy, Pacemaker, Other Additional Past Surgical Histo: cardiac stents; defibrilator, PEG TUBE FOR CHRONIC VOMITING Alcohol Use: None Drug Use: None Adult General Chief Complaint Chief Complaint: SHORTNESS OF BREATH HPI HPI Patient is a 73 year old female brought in by [facility] with a chief complaint of respiratory distress the patient was just here yesterday. She has a history of severe COPD as well as severe CHF with an EF of 10-15% she got more short of breath this afternoon she is on home oxygen daughter does not know why she is show short of breath because she felt the oxygen should take care of things. Patient says she has been coughing since she got home no definite fever does complain of right-sided chest pain which is not a new finding at all. She's been dealing with with that for some time no feveR. Review of Systems Review of Systems Limited by the patient's respiratory distress Current Medications Current Medications Current Medications Medications (Trade) Dose Ordered Sig/Lisandra Start Time Stop Time Status Last Admin Dose Admin Albuterol Sulfate (Ventolin Neb Soln) 10 mg 1X ONCE 08/13/18 16:15 08/13/18 16:16 DC 08/13/18 16:43 10 MG Albuterol/ Ipratropium (Duoneb) 3 ml RTQID 08/13/18 20:00 08/14/18 19:59 UNV Furosemide (Lasix) 20 mg 1X ONCE 08/13/18 16:45 08/13/18 16:46 DC 08/13/18 17:10 20 MG Levofloxacin/ Dextrose 100 ml @ 100 mls/hr 1X ONCE 08/13/18 18:00 08/13/18 18:59 08/13/18 17:12 100 MLS/HR Levofloxacin/ Dextrose (Levaquin Per Pharmacy) 1 each PRN DAILY PRN 08/13/18 16:45 UNV Methylprednisolone Sodium Succinate (SOLU-Medrol 125MG VIAL) 125 mg 1X ONCE 08/13/18 16:45 08/13/18 16:46 DC 08/13/18 17:09 125 MG Vancomycin HCl (Vanco Per Pharmacy) 1 each PRN DAILY PRN 08/13/18 16:45 UNV Vancomycin HCl 1.25 gm/Sodium Chloride 250 ml @ 166.667 mls/hr 1X ONCE 08/13/18 17:00 08/13/18 18:29 Allergies Allergies Allergies Coded Allergies Type Severity Reaction Last Updated Verified Penicillins Allergy Intermediate hives 08/05/18 Yes Sulfa (Sulfonamide Antibiotics) Allergy Intermediate hives 08/05/18 Yes Physical Exam Physical Exam Constitutional: Well developed, cachectic in moderate respiratory distress HENT: Normocephalic, atraumatic, bilateral external ears normal, oropharynx moist, no oral exudates, nose normal. [] Eyes: PERRLA, , conjunctiva normal, no discharge. [] Neck: Normal range of motion, no tenderness, supple, no stridor. [] Cardiovascular: Difficult due to the patient is on BiPAP but no loud murmur heard []patient has significant JVD Lungs & Thorax: Patient is wheezing bilaterally with increased respiratory effort accessory muscle use. Abdomen: Bowel sounds normal, soft, no tenderness, no masses, no pulsatile masses. [] Skin: Warm, dry, no erythema, no rash. [] \ Extremities: No tenderness, no cyanosis, no clubbing, ROM intact, no edema. [] Neurologic: Alert and responsive following commands , normal motor function, normal sensory function, no focal deficits noted. [] Psychologic: Anxiety noted Current Patient Data Vital Signs Vital Signs Date Time Temp Pulse Resp B/P (MAP) Pulse Ox O2 Delivery O2 Flow Rate FiO2 08/13/18 16:00 100 BiPAP/CPAP 08/13/18 15:58 98.0 101 26 180/112 (134) 98.0 Lab Values Laboratory Tests Test 08/13/18 16:00 08/13/18 16:15 White Blood Count 13.0 x10^3/uL (4.0-11.0) H Red Blood Count 4.46 x10^6/uL (3.50-5.40) Hemoglobin 13.5 g/dL (12.0-15.5) Hematocrit 40.0 % (36.0-47.0) Mean Corpuscular Volume 90 fL (79-100) Mean Corpuscular Hemoglobin 30 pg (25-35) Mean Corpuscular Hemoglobin Concent 34 g/dL (31-37) Red Cell Distribution Width 14.1 % (11.5-14.5) Platelet Count 277 x10^3/uL (140-400) Neutrophils (%) (Auto) 45 % (31-73) Lymphocytes (%) (Auto) 17 % (24-48) L Monocytes (%) (Auto) 5 % (0-9) Eosinophils (%) (Auto) 33 % (0-3) H Basophils (%) (Auto) 1 % (0-3) Neutrophils # (Auto) 5.9 x10^3uL (1.8-7.7) Lymphocytes # (Auto) 2.2 x10^3/uL (1.0-4.8) Monocytes # (Auto) 0.6 x10^3/uL (0.0-1.1) Eosinophils # (Auto) 4.3 x10^3/uL (0.0-0.7) H Basophils # (Auto) 0.1 x10^3/uL (0.0-0.2) Segmented Neutrophils % 55 % (35-66) Lymphocytes % 14 % (24-48) L Monocytes % 5 % (0-10) Eosinophils % 26 % (0-5) H Toxic Granulation Slight Toxic Vacuolation Slight Platelet Estimate Adequate (ADEQUATE) Prothrombin Time 12.8 SEC (11.7-14.0) Prothrombin Time INR 1.0 (0.8-1.1) Sodium Level 141 mmol/L (136-145) Potassium Level 4.5 mmol/L (3.5-5.1) Chloride Level 102 mmol/L (98-107) Carbon Dioxide Level 28 mmol/L (21-32) Anion Gap 11 (6-14) Blood Urea Nitrogen 10 mg/dL (7-20) Creatinine 0.8 mg/dL (0.6-1.0) Estimated GFR (Cockcroft-Gault) 84.8 BUN/Creatinine Ratio 13 (6-20) Glucose Level 83 mg/dL (70-99) Lactic Acid Level 1.4 mmol/L (0.4-2.0) Calcium Level 9.8 mg/dL (8.5-10.1) Total Bilirubin 0.3 mg/dL (0.2-1.0) Aspartate Amino Transferase (AST) 30 U/L (15-37) Alanine Aminotransferase (ALT) 21 U/L (14-59) Alkaline Phosphatase 131 U/L (46-116) H Troponin I Quantitative < 0.017 ng/mL (0.000-0.055) ME-Ada-A-Type Natriuretic Peptide 6822 pg/mL (0-124) H Total Protein 7.3 g/dL (6.4-8.2) Albumin 2.8 g/dL (3.4-5.0) L Albumin/Globulin Ratio 0.6 (1.0-1.7) L O2 Saturation 96 % (92-99) Arterial Blood pH 7.39 (7.35-7.45) Arterial Blood pCO2 at Patient Temp 46 mmHg (35-46) Arterial Blood pO2 at Patient Temp 89 mmHg (65-108) Arterial Blood HCO3 27 mmol/L (21-28) Arterial Blood Base Excess 2 mmol/L (-3-3) FiO2 35 Laboratory Tests 08/13/18 16:00 Laboratory Tests 08/13/18 16:00 EKG EKG []EKG shows a left bundle branch block pattern no obvious STEMI in light of that QRS is 124 interpreted by me the time of encounter overall similar to August 04, 2018 Radiology/Procedures Radiology/Procedures [] Impressions: Impression: Mild pulmonary vasculature congestion. No significant change. Electronically signed by: Barrie Zarate MD (08/13/2018 4:36 PM) [facility] DICTATED and SIGNED BY: BARRIE ZARATE MD DATE: 08/13/18 1639 Course & Med Decision Making Course & Med Decision Making Pertinent Labs and Imaging studies reviewed. (See chart for details) []Severe respiratory distress likely combination of COPD and congestive heart failure. Patient does have evidence of fluid overload on examination so a dose of Lasix was given. When patient was transferred from the EMS cot over to the ER but she had a witnessed syncopal the last approximately 20 seconds. He placed her on the monitor immediately his symptoms recurred and the patient was in the sinus rhythm did not appear to have any acute arrhythmia. She did wake up once we laid her head flat. Perhaps there was a hypovolemia type of syncope especially in light of the increased intrathoracic pressure of the BiPAP Patient was given the above treatment in the emergency room including nebulizers and treatment of COPD and CHF and we did give some broad-spectrum antibiotics due to her recent history of right upper no pneumonia which has been recurrent and I thought there might be some subtle right upper lobe changes on my read of the chest x-ray. Following the above treatment the patient was doing better interpretation of blood gas did show no acidosis oxygenation was adequate so we took the BiPAP off, for about 30 minutes and then she began to become more dyspneic so we replaced it with improvement in her symptoms. I spoke with Dr. Ames patient will be admitted to the [facility] for further management. I did notify the family about the severity of her underlying illness and tried to explain that nasal cannula oxygen at home will not entirely turn around her symptoms Dragon Disclaimer Dragon Disclaimer This electronic medical record was generated, in whole or in part, using a voice recognition dictation system. Departure Departure Impression: Primary Impression: CHF (congestive heart failure) Disposition: ADMITTED INPATIENT (ct OF) Admitting Physician: Trenton Orellana Condition: GUARDED Referrals: VAUGHN LOPEZ MD (PCP) EDWIN BRYAN MD Aug 13, 2018 17:51
[2018-08-13] MEDS ORDERED: IPRATRPIUM/ALBUTEROL 0.5/2.5MG 3 ML NEBU. NEB SCH (18:00)
--- NOTE | 2018-08-13 18:51 | EKG ---
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
[2018-08-13] MEDS: VANCOMYCIN PER PHARMACY MC PRN (19:40)
[2018-08-13 19:50] VITALS: BP 133/79
[2018-08-13] MEDS ORDERED: TRAM50TA PO (19:58)
[2018-08-13] MEDS ORDERED: FLUT12AE2 INH (19:58)
[2018-08-13] MEDS ORDERED: ONDANSETRON ODT 4 MG TAB.RAPDIS. PO PRN (20:45)
[2018-08-13] MEDS ORDERED: FLUTICASONE PROPIONATE INH SCH (21:00)
--- NOTE | 2018-08-13 21:05 | PDOC1 ---
History and Physical Date of Admission Date of Admission DATE: 08/13/18 TIME: 21:05 Identification/Chief Complaint Chief Complaint seen in ER a chief complaint of respiratory distress the patient was just here yesterday. She has a history of severe COPD as well as severe CHF with an EF of 10-15% she got more short of breath this afternoon she is on home oxygen daughter does not know why she is so short of breath because she felt the oxygen should be helping she has been coughing since she got home no definite fever does complain of right-sided chest pain STATES HOME HEALTH WILL NOT SHOW UP AT HER HOME UNTIL THURSDAY Past Medical History Cardiovascular: AFIB, CAD, CHF, HTN, Syncope, Hyperlipidemia Pulmonary: COPD CENTRAL NERVOUS SYSTEM: Other GI: No pertinent hx, Other Heme/Onc: No pertinent hx Hepatobiliary: No pertinent hx Psych: No pertinent hx Musculoskeletal: Other Rheumatologic: No pertinent hx Infectious disease: No pertinent hx Renal/: UTI Endocrine: No pertinent hx Past Surgical History Past Surgical History: Pacemaker, Appendectomy, Hysterectomy, Other Family History Family History: Coronary Artery Disease Social History Smoke: <1 pack per day ALCOHOL: none Drugs: None Current Problem List Problem List Problems Medical Problems: (1) CHF (congestive heart failure) Status: Acute Current Medications Current Medications Current Medications Albuterol Sulfate (Ventolin Neb Soln) 10 mg 1X ONCE CONT NEB Last administered on 08/13/18at 16:43; Start 08/13/18 at 16:15; Stop 08/13/18 at 16:16 ; Status DC Vancomycin HCl (Vanco Per Pharmacy) 1 each PRN DAILY PRN [facility] SEE COMMENTS; Start 08/13/18 at 16:45; Stop 08/13/18 at 18:18; Status DC Levofloxacin/ Dextrose (Levaquin Per Pharmacy) 1 each PRN DAILY PRN MC SEE COMMENTS; Start 08/13/18 at 16:45; Stop 08/13/18 at 18:18; Status DC Furosemide (Lasix) 20 mg 1X ONCE IVP Last administered on 08/13/18at 17:10; Start 08/13/18 at 16:45; Stop 08/13/18 at 16:46; Status DC Methylprednisolone Sodium Succinate (SOLU-Medrol 125MG VIAL) 125 mg 1X ONCE IV Last administered on 08/13/18at 17:09; Start 08/13/18 at 16:45; Stop 08/13/18 at 16:46; Status DC Vancomycin HCl 1.25 gm/Sodium Chloride 250 ml @ 166.667 mls/hr 1X ONCE IV Last administered on 08/13/18at 19:34; Start 08/13/18 at 17:00; Stop 08/13/18 at 18:39; Status DC Levofloxacin/ Dextrose 100 ml @ 100 mls/hr 1X ONCE IV Last administered on at 17:12; Start 08/13/18 at 18:00; Stop 08/13/18 at 18:59; Status DC Albuterol/ Ipratropium (Duoneb) 3 ml RTQID NEB Last administered on 08/13/18at 20:26; Start 08/13/18 at 18:00; Stop 08/13/18 at 20:37; Status DC Vancomycin HCl (Vanco Per Pharmacy) 1 each PRN DAILY PRN [facility] SEE COMMENTS Last administered on 08/13/18at 19:40; Start 08/13/18 at 18:30 Levofloxacin/ Dextrose (Levaquin Per Pharmacy) 1 each PRN DAILY PRN MC SEE COMMENTS; Start 08/13/18 at 18:30 Levofloxacin/ Dextrose 50 ml @ 50 mls/hr Q24H IV ; Start 08/14/18 at 17:00 Vancomycin HCl 750 mg/Sodium Chloride 250 ml @ 250 mls/hr Q24H IV ; Start 08/14 at 19:30 Vancomycin HCl (Vancomycin Trough Level) 1 each 1X ONCE MC ; Start 08/15/18 at 19:00; Stop 08/15/18 at 19:01 Lactobacillus Rhamnosus (Culturelle) 1 cap BID PO ; Start 08/13/18 at 21:00 Aspirin (Ecotrin) 325 mg DAILY PO ; Start 08/14/18 at 09:00 Atorvastatin Calcium (Lipitor) 40 mg HS PO ; Start 08/13/18 at 21:00 Carvedilol (Coreg) 6.25 mg BIDWMEALS PO ; Start 08/13/18 at 21:00 Clopidogrel Bisulfate (Plavix) 75 mg DAILY PO ; Start 08/14/18 at 09:00 Furosemide (Lasix) 40 mg DAILY PO ; Start 08/14/18 at 09:00 Albuterol/ Ipratropium (Duoneb) 3 ml RTQID NEB ; Start 08/14/18 at 08:00 Lisinopril (Prinivil) 20 mg DAILY PO ; Start 08/14/18 at 09:00 Tramadol HCl (Ultram) 50 mg PRN Q6HRS PRN PO PAIN; Start 08/13/18 at 20:15 Vitamin D (Vitamin D3) 2,000 unit BIDAFTMEAL PO ; Start 08/14/18 at 09:00 Non-Formulary Medication (Fluticasone Propionate (Flovent 220MCG Hfa)) 2 inh BID INH ; Start 08/13/18 at 21:00; Status UNV Ondansetron HCl (Zofran Odt) 4 mg PRN Q8HRS PRN PO NAUSEA/VOMITING; Start 08/13 at 20:45 Pantoprazole Sodium (Protonix) 40 mg PRN DAILY PRN PO HEARTBURN / GAS; Start 08/14/18 at 07:30 Budesonide (Pulmicort) 0.5 mg RTBID NEB ; Start 08/14/18 at 08:00 Active Scripts Active Levaquin (Levofloxacin) 500 Mg Tablet 1 Tab PO DAILY Levofloxacin 250 Mg Tablet 250 Mg PO DAILY06 Furosemide 40 Mg Tablet 40 Mg PO DAILY 30 Days Zofran (Ondansetron Hcl) 4 Mg Tablet 1 Tab PO Q8HRS PRN Reported Tramadol Hcl 50 Mg Tablet 1 Tab PO PRN Q6HRS PRN Flovent 220MCG Hfa (Fluticasone Propionate) 12 Gm Aer.w.adap 2 Inh INH BID Protonix (Pantoprazole Sodium) 20 Mg Tablet.dr 40 Mg PO PRN DAILY PRN Duoneb 0.5-3(2.5) Mg/3 Ml (Albuterol/Ipratropium) 3 Ml Ampul.neb 3 Ml NEB QID Atorvastatin Calcium 40 Mg Tablet 40 Mg PO HS Lisinopril 20 Mg Tablet 20 Mg PO DAILY Carvedilol 6.25 Mg Tablet 6.25 Mg PO BIDWMEALS Vitamin D (Cholecalciferol (Vitamin D3)) 2,000 Unit Capsule 2,000 Unit PO BIDAFTMEAL Aspirin Ec (Aspirin) 325 Mg Tablet. 325 Mg PO DAILY Clopidogrel (Clopidogrel Bisulfate) 75 Mg Tablet 75 Mg PO DAILY Allergies Allergies: Coded Allergies: Penicillins (Verified Allergy, Intermediate, hives, 08/05/18) Sulfa (Sulfonamide Antibiotics) (Verified Allergy, Intermediate, hives, ) ROS Review of System General: YES: Fatigue PSYCHOLOGICAL ROS: YES: Anxiety Hematological and Lymphatic: No: Bleeding Problems, Blood Clots, Blood Transfusions, Brusing, Night Sweats, Pallor, Swollen Lymph Nodes, Other ENDOCRINE: No: Breast Changes, Galactorrhea, Hair Pattern Changes, Hot Flashes , Malaise/lethargy, Mood Swings, Palpitations, Polydipsia/polyuria, Skin Changes , Temperature Intolerance, Unexpected Weight Changes, Other Respiratory: YES: Cough, Shortness of breath, SOB with excertion Cardiovascular: yes Chest Pain Gastrointestinal: Yes Vomiting Neurological: Yes Gait Disturbance Physical Exam Physical Exam Physical Exam Physical Exam Constitutional: Well developed, cachectic in MILD respiratory distress HENT: Normocephalic, atraumatic, bilateral external ears normal, oropharynx moist, no oral exudates, nose normal. [] Eyes: PERRLA, , conjunctiva normal, no discharge. [] Neck: Normal range of motion, no tenderness, supple, no stridor. [] Cardiovascular: Difficult due to the patient is on BiPAP but no loud murmur heard []patient has significant JVD Lungs & Thorax: Patient is wheezing bilaterally with increased respiratory effort accessory muscle use. Abdomen: Bowel sounds normal, soft, no tenderness, no masses, no pulsatile masses. [] Skin: Warm, dry, no erythema, no rash. [] \ Extremities: No tenderness, no cyanosis, no clubbing, ROM intact, no edema. [] Neurologic: Alert and responsive following commands , normal motor function, normal sensory function, no focal deficits noted. [] Psychologic: Anxiety General: Oriented X3, Cooperative, mild distress HEENT: EOMI, Mucous membr. moist/pink Breasts: Not examined Abdomen: Other (MILD TENDERNESS) Rectal Exam: not examined Extremities: No cyanosis Neuro: Normal speech, Cranial nerves 3-12 NL Psych/Mental Status: Mental status NL Vitals Vitals Vital Signs Date Time Temp Pulse Resp B/P (MAP) Pulse Ox O2 Delivery O2 Flow Rate FiO2 08/13/18 20:20 97 Nasal Cannula 2.0 08/13/18 19:50 98.6 96 21 133/79 (97) 98.6 Labs Labs Laboratory Tests Test 08/13/18 16:00 08/13/18 16:15 White Blood Count 13.0 x10^3/uL (4.0-11.0) Red Blood Count 4.46 x10^6/uL (3.50-5.40) Hemoglobin 13.5 g/dL (12.0-15.5) Hematocrit 40.0 % (36.0-47.0) Mean Corpuscular Volume 90 fL (79-100) Mean Corpuscular Hemoglobin 30 pg (25-35) Mean Corpuscular Hemoglobin Concent 34 g/dL (31-37) Red Cell Distribution Width 14.1 % (11.5-14.5) Platelet Count 277 x10^3/uL (140-400) Neutrophils (%) (Auto) 45 % (31-73) Lymphocytes (%) (Auto) 17 % (24-48) Monocytes (%) (Auto) 5 % (0-9) Eosinophils (%) (Auto) 33 % (0-3) Basophils (%) (Auto) 1 % (0-3) Neutrophils # (Auto) 5.9 x10^3uL (1.8-7.7) Lymphocytes # (Auto) 2.2 x10^3/uL (1.0-4.8) Monocytes # (Auto) 0.6 x10^3/uL (0.0-1.1) Eosinophils # (Auto) 4.3 x10^3/uL (0.0-0.7) Basophils # (Auto) 0.1 x10^3/uL (0.0-0.2) Segmented Neutrophils % 55 % (35-66) Lymphocytes % 14 % (24-48) Monocytes % 5 % (0-10) Eosinophils % 26 % (0-5) Toxic Granulation Slight Toxic Vacuolation Slight Platelet Estimate Adequate (ADEQUATE) Prothrombin Time 12.8 SEC (11.7-14.0) Prothromb Time International Ratio 1.0 (0.8-1.1) Sodium Level 141 mmol/L (136-145) Potassium Level 4.5 mmol/L (3.5-5.1) Chloride Level 102 mmol/L (98-107) Carbon Dioxide Level 28 mmol/L (21-32) Anion Gap 11 (6-14) Blood Urea Nitrogen 10 mg/dL (7-20) Creatinine 0.8 mg/dL (0.6-1.0) Estimated GFR (Cockcroft-Gault) 84.8 BUN/Creatinine Ratio 13 (6-20) Glucose Level 83 mg/dL (70-99) Lactic Acid Level 1.4 mmol/L (0.4-2.0) Calcium Level 9.8 mg/dL (8.5-10.1) Total Bilirubin 0.3 mg/dL (0.2-1.0) Aspartate Amino Transf (AST/SGOT) 30 U/L (15-37) Alanine Aminotransferase (ALT/SGPT) 21 U/L (14-59) Alkaline Phosphatase 131 U/L (46-116) Troponin I Quantitative < 0.017 ng/mL (0.000-0.055) SG-Hih-G-Type Natriuretic Peptide 6822 pg/mL (0-124) Total Protein 7.3 g/dL (6.4-8.2) Albumin 2.8 g/dL (3.4-5.0) Albumin/Globulin Ratio 0.6 (1.0-1.7) O2 Saturation 96 % (92-99) Arterial Blood pH 7.39 (7.35-7.45) Arterial Blood pCO2 at Patient Temp 46 mmHg (35-46) Arterial Blood pO2 at Patient Temp 89 mmHg (65-108) Arterial Blood HCO3 27 mmol/L (21-28) Arterial Blood Base Excess 2 mmol/L (-3-3) FiO2 35 Laboratory Tests Test 08/13/18 16:00 08/13/18 16:15 White Blood Count 13.0 x10^3/uL (4.0-11.0) Red Blood Count 4.46 x10^6/uL (3.50-5.40) Hemoglobin 13.5 g/dL (12.0-15.5) Hematocrit 40.0 % (36.0-47.0) Mean Corpuscular Volume 90 fL (79-100) Mean Corpuscular Hemoglobin 30 pg (25-35) Mean Corpuscular Hemoglobin Concent 34 g/dL (31-37) Red Cell Distribution Width 14.1 % (11.5-14.5) Platelet Count 277 x10^3/uL (140-400) Neutrophils (%) (Auto) 45 % (31-73) Lymphocytes (%) (Auto) 17 % (24-48) Monocytes (%) (Auto) 5 % (0-9) Eosinophils (%) (Auto) 33 % (0-3) Basophils (%) (Auto) 1 % (0-3) Neutrophils # (Auto) 5.9 x10^3uL (1.8-7.7) Lymphocytes # (Auto) 2.2 x10^3/uL (1.0-4.8) Monocytes # (Auto) 0.6 x10^3/uL (0.0-1.1) Eosinophils # (Auto) 4.3 x10^3/uL (0.0-0.7) Basophils # (Auto) 0.1 x10^3/uL (0.0-0.2) Segmented Neutrophils % 55 % (35-66) Lymphocytes % 14 % (24-48) Monocytes % 5 % (0-10) Eosinophils % 26 % (0-5) Toxic Granulation Slight Toxic Vacuolation Slight Platelet Estimate Adequate (ADEQUATE) Prothrombin Time 12.8 SEC (11.7-14.0) Prothromb Time International Ratio 1.0 (0.8-1.1) Sodium Level 141 mmol/L (136-145) Potassium Level 4.5 mmol/L (3.5-5.1) Chloride Level 102 mmol/L (98-107) Carbon Dioxide Level 28 mmol/L (21-32) Anion Gap 11 (6-14) Blood Urea Nitrogen 10 mg/dL (7-20) Creatinine 0.8 mg/dL (0.6-1.0) Estimated GFR (Cockcroft-Gault) 84.8 BUN/Creatinine Ratio 13 (6-20) Glucose Level 83 mg/dL (70-99) Lactic Acid Level 1.4 mmol/L (0.4-2.0) Calcium Level 9.8 mg/dL (8.5-10.1) Total Bilirubin 0.3 mg/dL (0.2-1.0) Aspartate Amino Transf (AST/SGOT) 30 U/L (15-37) Alanine Aminotransferase (ALT/SGPT) 21 U/L (14-59) Alkaline Phosphatase 131 U/L (46-116) Troponin I Quantitative < 0.017 ng/mL (0.000-0.055) AA-Ipw-C-Type Natriuretic Peptide 6822 pg/mL (0-124) Total Protein 7.3 g/dL (6.4-8.2) Albumin 2.8 g/dL (3.4-5.0) Albumin/Globulin Ratio 0.6 (1.0-1.7) O2 Saturation 96 % (92-99) Arterial Blood pH 7.39 (7.35-7.45) Arterial Blood pCO2 at Patient Temp 46 mmHg (35-46) Arterial Blood pO2 at Patient Temp 89 mmHg (65-108) Arterial Blood HCO3 27 mmol/L (21-28) Arterial Blood Base Excess 2 mmol/L (-3-3) FiO2 35 VTE Prophylaxis Ordered VTE Prophylaxis Devices: Yes VTE Pharmacological Prophylaxi: Yes Assessment/Plan Assessment/Plan failed outpatient management, lack of home health on discharge [employer] Abnormal CT chest revealing right upper lobe infiltrate compared to the film s/p bronch (`08/05/18) - Chronic right upper lobe lesion or infiltrate similar to slightly worse since prior study. Mild increase in interstitial infiltrates, typically in the right lung. Esophageal wall thickening, appears similar. by ct chest 08-11 Indwelling pacer Chronic A.fib Cardiomyopathy, ejection fraction 10%-15%. Undernourished-BMI 15.3/Cachexia Hx bulimia Hypoxic respiratory failure Questionable hx COPD Indwelling PEG sec to SEVERE GASTROPARESIS confirmed by GET, had emesis today hypotension responsive to fluids fell 08/09, right chest wall pain, on lidoderm patch, severe protein-caloric malnutrition PLAN RESTART MEDS IV FLUID SUPPORT IV VANC PULM consult iv reglan 5 mg q 6 hrs gi consult BAYLEE SIMS MD Aug 13, 2018 21:05
[2018-08-13] MEDS: LACTOBACILLUS RHAMNOSUS GG 1 CAPSULE. PO SCH (21:14)
[2018-08-13] MEDS: CARVEDILOL 6.25 MG TABLET. PO SCH (21:15)
[2018-08-13] MEDS: ATORVASTATIN CALCIUM 40 MG TABLET. PO SCH (21:15)
[2018-08-13] MEDS: traMADol 50 MG TABLET PO PRN (21:17)
[2018-08-13] MEDS: METOCLOPRAMIDE HCL 10 MG/2 ML VIAL. IV SCH (21:30)
[2018-08-13] MEDS: ALBUTEROL SULFATE 2.5 MG/3 ML NEBU. NEB PRN (23:05)
[2018-08-13 23:14] VITALS: BP 122/65
[2018-08-14] MEDS: ALBUTEROL SULFATE 2.5 MG/3 ML NEBU. NEB PRN (02:58)
[2018-08-14 03:40] VITALS: BP 107/67
[2018-08-14 05:27] LABS: BASO % 0 % (0-3); EOS # 0.1 x10^3/uL (0.0-0.7); EOS % 1 % (0-3); HEMATOCRIT 39.7 % (36.0-47.0); HEMOGLOBIN 13.2 g/dL (12.0-15.5); LYMPH # 0.8 x10^3/uL (1.0-4.8); LYMPH % 9 % (24-48); MEAN CORPUSCULAR HEMOGLOBIN 30 pg (25-35); MEAN CORPUSCULAR HGB CONC 33 g/dL (31-37); MEAN CORPUSCULAR VOLUME 89 fL (79-100); MONO # 0.2 x10^3/uL (0.0-1.1); MONO % 3 % (0-9); NEUT # 7.4 x10^3uL (1.8-7.7); NEUT % 87 % (31-73); PLATELET COUNT 274 x10^3/uL (140-400); RED BLOOD COUNT 4.45 x10^6/uL (3.50-5.40); RED CELL DISTRIBUTION WIDTH 13.6 % (11.5-14.5); WHITE BLOOD COUNT 8.5 x10^3/uL (4.0-11.0)
[2018-08-14 05:45] LABS: ALBUMIN 2.7 g/dL (3.4-5.0); ALBUMIN/GLOBULIN RATIO 0.6 (1.0-1.7); CALCIUM 9.9 mg/dL (8.5-10.1); CREATININE 0.8 mg/dL (0.6-1.0); GFR 84.8; POTASSIUM 4.4 mmol/L (3.5-5.1); TOTAL BILIRUBIN 0.3 mg/dL (0.2-1.0); TOTAL PROTEIN 7.3 g/dL (6.4-8.2)
[2018-08-14] MEDS: BUDESONIDE 0.5 MG/2 ML NEBU. NEB SCH ×2 (07:10→19:38)
[2018-08-14] MEDS: IPRATRPIUM/ALBUTEROL 0.5/2.5MG 3 ML NEBU. NEB SCH ×4 (07:10→19:38)
[2018-08-14 07:30] VITALS: BP 146/91
[2018-08-14] MEDS ORDERED: PANTOPRAZOLE 40 MG TABLET.DR. PO PRN (07:30)
[2018-08-14] MEDS ORDERED: FUROSEMIDE 40 MG/4 ML VIAL. IVP ONE (07:45)
[2018-08-14] MEDS ORDERED: methylPREDNISolone SOD SUCC PF 125 MG/2 ML VIAL. IV ONE (07:45)
--- NOTE | 2018-08-14 08:18 | PDOC ---
PROGRESS NOTES Chief Complaint Chief Complaint SOA. Abnormal CT chest revealing right upper lobe infiltrate compared to the film 06/27 s/p bronch (`08/05/18) - Chronic right upper lobe lesion or infiltrate similar to slightly worse since prior study. Mild increase in interstitial infiltrates, typically in the right lung. Esophageal wall thickening, appears similar. by ct chest 08-11 Indwelling pacer Chronic A.fib Cardiomyopathy, ejection fraction 10%-15%. Undernourished-BMI 15.3/Cachexia Hx bulimia Hypoxic respiratory failure Questionable hx COPD Indwelling PEG sec to SEVERE GASTROPARESIS confirmed by GET hypotension responsive to fluids fell 08/09, right chest wall pain, on lidoderm patch, severe protein-caloric malnutrition QUALIFIED WITH 6 min walk for home o2 History of Present Illness History of Present Illness Chief complaint of respiratory distress the patient was just here yesterday. She has a history of severe COPD as well as severe CHF with an EF of 10-15% she got more short of breath this afternoon she is on home oxygen daughter does not know why she is so short of breath, felt the oxygen should be helping, but did not have decreased saturations, though does have increased work of breathing She has been coughing since she got home no definite fever does complain of right-sided chest pain. Lives alone, was discharged, but home health was not able to show up to her home yesterday and not able to come until Thursday. Today c/o 8/10 right great toe pain and right sided rib pain not improved with her current pain regimen and severe anxiety, states she was unable to sleep at night. Stressed about her who drinks and smokes in the home, so he lives in a separate home many nights and she is anxious about living alone with no help. A/P: Pain - toe, ribs, will increase tramadol, prn morphine IV Anxiety - will add prn trazodone nightly and buspar TID prn as well as lorazepam 0.5mg TID PRN SOA. Abnormal CT chest revealing right upper lobe infiltrate compared to the film 06/27 s/p bronch (`08/05/18) - consult pulm Chronic right upper lobe lesion or infiltrate similar to slightly worse since prior study. Mild increase in interstitial infiltrates, typically in the right lung. Esophageal wall thickening, appears similar. by ct chest 08-11 Indwelling pacer Chronic A.fib Cardiomyopathy, ejection fraction 10%-15%. Undernourished-BMI 15.3/Cachexia Hx bulimia Hypoxic respiratory failure - improved, will see pulm Questionable hx COPD Indwelling PEG sec to SEVERE GASTROPARESIS confirmed by GET hypotension responsive to fluids fell 08/09, right chest wall pain, on lidoderm patch, severe protein-caloric malnutrition QUALIFIED WITH 6 min walk for home o2 FEN - Cardiac diet, supplements PPX - heparin FULL CODE Inpatient for at least 2 midnights with worsening dypsnea, anxiety, unsafe to be home alone Vitals Vitals Vital Signs Date Time Temp Pulse Resp B/P (MAP) Pulse Ox O2 Delivery O2 Flow Rate FiO2 08/14/18 07:30 97.9 104 30 146/91 (109) 96 Nasal Cannula 2.0 97.9 Physical Exam General: Oriented X3, Cooperative, mild distress Lungs: Wheezing, Other Abdomen: Other (MILD TENDERNESS) Extremities: No cyanosis Labs LABS Laboratory Tests Test 08/13/18 16:00 08/13/18 16:15 08/14/18 04:00 White Blood Count 13.0 x10^3/uL (4.0-11.0) 8.5 x10^3/uL (4.0-11.0) Red Blood Count 4.46 x10^6/uL (3.50-5.40) 4.45 x10^6/uL (3.50-5.40) Hemoglobin 13.5 g/dL (12.0-15.5) 13.2 g/dL (12.0-15.5) Hematocrit 40.0 % (36.0-47.0) 39.7 % (36.0-47.0) Mean Corpuscular Volume 90 fL (79-100) 89 fL (79-100) Mean Corpuscular Hemoglobin 30 pg (25-35) 30 pg (25-35) Mean Corpuscular Hemoglobin Concent 34 g/dL (31-37) 33 g/dL (31-37) Red Cell Distribution Width 14.1 % (11.5-14.5) 13.6 % (11.5-14.5) Platelet Count 277 x10^3/uL (140-400) 274 x10^3/uL (140-400) Neutrophils (%) (Auto) 45 % (31-73) 87 % (31-73) Lymphocytes (%) (Auto) 17 % (24-48) 9 % (24-48) Monocytes (%) (Auto) 5 % (0-9) 3 % (0-9) Eosinophils (%) (Auto) 33 % (0-3) 1 % (0-3) Basophils (%) (Auto) 1 % (0-3) 0 % (0-3) Neutrophils # (Auto) 5.9 x10^3uL (1.8-7.7) 7.4 x10^3uL (1.8-7.7) Lymphocytes # (Auto) 2.2 x10^3/uL (1.0-4.8) 0.8 x10^3/uL (1.0-4.8) Monocytes # (Auto) 0.6 x10^3/uL (0.0-1.1) 0.2 x10^3/uL (0.0-1.1) Eosinophils # (Auto) 4.3 x10^3/uL (0.0-0.7) 0.1 x10^3/uL (0.0-0.7) Basophils # (Auto) 0.1 x10^3/uL (0.0-0.2) 0.0 x10^3/uL (0.0-0.2) Segmented Neutrophils % 55 % (35-66) Lymphocytes % 14 % (24-48) Monocytes % 5 % (0-10) Eosinophils % 26 % (0-5) Toxic Granulation Slight Toxic Vacuolation Slight Platelet Estimate Adequate (ADEQUATE) Prothrombin Time 12.8 SEC (11.7-14.0) Prothromb Time International Ratio 1.0 (0.8-1.1) Sodium Level 141 mmol/L (136-145) 135 mmol/L (136-145) Potassium Level 4.5 mmol/L (3.5-5.1) 4.4 mmol/L (3.5-5.1) Chloride Level 102 mmol/L (98-107) 98 mmol/L (98-107) Carbon Dioxide Level 28 mmol/L (21-32) 28 mmol/L (21-32) Anion Gap 11 (6-14) 9 (6-14) Blood Urea Nitrogen 10 mg/dL (7-20) 16 mg/dL (7-20) Creatinine 0.8 mg/dL (0.6-1.0) 0.8 mg/dL (0.6-1.0) Estimated GFR (Cockcroft-Gault) 84.8 84.8 BUN/Creatinine Ratio 13 (6-20) 20 (6-20) Glucose Level 83 mg/dL (70-99) 165 mg/dL (70-99) Lactic Acid Level 1.4 mmol/L (0.4-2.0) Calcium Level 9.8 mg/dL (8.5-10.1) 9.9 mg/dL (8.5-10.1) Total Bilirubin 0.3 mg/dL (0.2-1.0) 0.3 mg/dL (0.2-1.0) Aspartate Amino Transf (AST/SGOT) 30 U/L (15-37) 23 U/L (15-37) Alanine Aminotransferase (ALT/SGPT) 21 U/L (14-59) 21 U/L (14-59) Alkaline Phosphatase 131 U/L (46-116) 123 U/L (46-116) Troponin I Quantitative < 0.017 ng/mL (0.000-0.055) FN-Gnt-K-Type Natriuretic Peptide 6822 pg/mL (0-124) Total Protein 7.3 g/dL (6.4-8.2) 7.3 g/dL (6.4-8.2) Albumin 2.8 g/dL (3.4-5.0) 2.7 g/dL (3.4-5.0) Albumin/Globulin Ratio 0.6 (1.0-1.7) 0.6 (1.0-1.7) O2 Saturation 96 % (92-99) Arterial Blood pH 7.39 (7.35-7.45) Arterial Blood pCO2 at Patient Temp 46 mmHg (35-46) Arterial Blood pO2 at Patient Temp 89 mmHg (65-108) Arterial Blood HCO3 27 mmol/L (21-28) Arterial Blood Base Excess 2 mmol/L (-3-3) FiO2 35 Assessment and Plan Assessmemt and Plan Problems Medical Problems: (1) CHF (congestive heart failure) Status: Acute Comment Review of Relevant I have reviewed the following items loren (where applicable) has been applied. Labs Laboratory Tests Test 08/13/18 16:00 08/13/18 16:15 08/14/18 04:00 White Blood Count 13.0 x10^3/uL (4.0-11.0) 8.5 x10^3/uL (4.0-11.0) Red Blood Count 4.46 x10^6/uL (3.50-5.40) 4.45 x10^6/uL (3.50-5.40) Hemoglobin 13.5 g/dL (12.0-15.5) 13.2 g/dL (12.0-15.5) Hematocrit 40.0 % (36.0-47.0) 39.7 % (36.0-47.0) Mean Corpuscular Volume 90 fL (79-100) 89 fL (79-100) Mean Corpuscular Hemoglobin 30 pg (25-35) 30 pg (25-35) Mean Corpuscular Hemoglobin Concent 34 g/dL (31-37) 33 g/dL (31-37) Red Cell Distribution Width 14.1 % (11.5-14.5) 13.6 % (11.5-14.5) Platelet Count 277 x10^3/uL (140-400) 274 x10^3/uL (140-400) Neutrophils (%) (Auto) 45 % (31-73) 87 % (31-73) Lymphocytes (%) (Auto) 17 % (24-48) 9 % (24-48) Monocytes (%) (Auto) 5 % (0-9) 3 % (0-9) Eosinophils (%) (Auto) 33 % (0-3) 1 % (0-3) Basophils (%) (Auto) 1 % (0-3) 0 % (0-3) Neutrophils # (Auto) 5.9 x10^3uL (1.8-7.7) 7.4 x10^3uL (1.8-7.7) Lymphocytes # (Auto) 2.2 x10^3/uL (1.0-4.8) 0.8 x10^3/uL (1.0-4.8) Monocytes # (Auto) 0.6 x10^3/uL (0.0-1.1) 0.2 x10^3/uL (0.0-1.1) Eosinophils # (Auto) 4.3 x10^3/uL (0.0-0.7) 0.1 x10^3/uL (0.0-0.7) Basophils # (Auto) 0.1 x10^3/uL (0.0-0.2) 0.0 x10^3/uL (0.0-0.2) Segmented Neutrophils % 55 % (35-66) Lymphocytes % 14 % (24-48) Monocytes % 5 % (0-10) Eosinophils % 26 % (0-5) Toxic Granulation Slight Toxic Vacuolation Slight Platelet Estimate Adequate (ADEQUATE) Prothrombin Time 12.8 SEC (11.7-14.0) Prothromb Time International Ratio 1.0 (0.8-1.1) Sodium Level 141 mmol/L (136-145) 135 mmol/L (136-145) Potassium Level 4.5 mmol/L (3.5-5.1) 4.4 mmol/L (3.5-5.1) Chloride Level 102 mmol/L (98-107) 98 mmol/L (98-107) Carbon Dioxide Level 28 mmol/L (21-32) 28 mmol/L (21-32) Anion Gap 11 (6-14) 9 (6-14) Blood Urea Nitrogen 10 mg/dL (7-20) 16 mg/dL (7-20) Creatinine 0.8 mg/dL (0.6-1.0) 0.8 mg/dL (0.6-1.0) Estimated GFR (Cockcroft-Gault) 84.8 84.8 BUN/Creatinine Ratio 13 (6-20) 20 (6-20) Glucose Level 83 mg/dL (70-99) 165 mg/dL (70-99) Lactic Acid Level 1.4 mmol/L (0.4-2.0) Calcium Level 9.8 mg/dL (8.5-10.1) 9.9 mg/dL (8.5-10.1) Total Bilirubin 0.3 mg/dL (0.2-1.0) 0.3 mg/dL (0.2-1.0) Aspartate Amino Transf (AST/SGOT) 30 U/L (15-37) 23 U/L (15-37) Alanine Aminotransferase (ALT/SGPT) 21 U/L (14-59) 21 U/L (14-59) Alkaline Phosphatase 131 U/L (46-116) 123 U/L (46-116) Troponin I Quantitative < 0.017 ng/mL (0.000-0.055) OF-Hfz-P-Type Natriuretic Peptide 6822 pg/mL (0-124) Total Protein 7.3 g/dL (6.4-8.2) 7.3 g/dL (6.4-8.2) Albumin 2.8 g/dL (3.4-5.0) 2.7 g/dL (3.4-5.0) Albumin/Globulin Ratio 0.6 (1.0-1.7) 0.6 (1.0-1.7) O2 Saturation 96 % (92-99) Arterial Blood pH 7.39 (7.35-7.45) Arterial Blood pCO2 at Patient Temp 46 mmHg (35-46) Arterial Blood pO2 at Patient Temp 89 mmHg (65-108) Arterial Blood HCO3 27 mmol/L (21-28) Arterial Blood Base Excess 2 mmol/L (-3-3) FiO2 35 Laboratory Tests Test 08/13/18 16:00 08/13/18 16:15 08/14/18 04:00 White Blood Count 13.0 x10^3/uL (4.0-11.0) 8.5 x10^3/uL (4.0-11.0) Red Blood Count 4.46 x10^6/uL (3.50-5.40) 4.45 x10^6/uL (3.50-5.40) Hemoglobin 13.5 g/dL (12.0-15.5) 13.2 g/dL (12.0-15.5) Hematocrit 40.0 % (36.0-47.0) 39.7 % (36.0-47.0) Mean Corpuscular Volume 90 fL (79-100) 89 fL (79-100) Mean Corpuscular Hemoglobin 30 pg (25-35) 30 pg (25-35) Mean Corpuscular Hemoglobin Concent 34 g/dL (31-37) 33 g/dL (31-37) Red Cell Distribution Width 14.1 % (11.5-14.5) 13.6 % (11.5-14.5) Platelet Count 277 x10^3/uL (140-400) 274 x10^3/uL (140-400) Neutrophils (%) (Auto) 45 % (31-73) 87 % (31-73) Lymphocytes (%) (Auto) 17 % (24-48) 9 % (24-48) Monocytes (%) (Auto) 5 % (0-9) 3 % (0-9) Eosinophils (%) (Auto) 33 % (0-3) 1 % (0-3) Basophils (%) (Auto) 1 % (0-3) 0 % (0-3) Neutrophils # (Auto) 5.9 x10^3uL (1.8-7.7) 7.4 x10^3uL (1.8-7.7) Lymphocytes # (Auto) 2.2 x10^3/uL (1.0-4.8) 0.8 x10^3/uL (1.0-4.8) Monocytes # (Auto) 0.6 x10^3/uL (0.0-1.1) 0.2 x10^3/uL (0.0-1.1) Eosinophils # (Auto) 4.3 x10^3/uL (0.0-0.7) 0.1 x10^3/uL (0.0-0.7) Basophils # (Auto) 0.1 x10^3/uL (0.0-0.2) 0.0 x10^3/uL (0.0-0.2) Segmented Neutrophils % 55 % (35-66) Lymphocytes % 14 % (24-48) Monocytes % 5 % (0-10) Eosinophils % 26 % (0-5) Toxic Granulation Slight Toxic Vacuolation Slight Platelet Estimate Adequate (ADEQUATE) Prothrombin Time 12.8 SEC (11.7-14.0) Prothromb Time International Ratio 1.0 (0.8-1.1) Sodium Level 141 mmol/L (136-145) 135 mmol/L (136-145) Potassium Level 4.5 mmol/L (3.5-5.1) 4.4 mmol/L (3.5-5.1) Chloride Level 102 mmol/L (98-107) 98 mmol/L (98-107) Carbon Dioxide Level 28 mmol/L (21-32) 28 mmol/L (21-32) Anion Gap 11 (6-14) 9 (6-14) Blood Urea Nitrogen 10 mg/dL (7-20) 16 mg/dL (7-20) Creatinine 0.8 mg/dL (0.6-1.0) 0.8 mg/dL (0.6-1.0) Estimated GFR (Cockcroft-Gault) 84.8 84.8 BUN/Creatinine Ratio 13 (6-20) 20 (6-20) Glucose Level 83 mg/dL (70-99) 165 mg/dL (70-99) Lactic Acid Level 1.4 mmol/L (0.4-2.0) Calcium Level 9.8 mg/dL (8.5-10.1) 9.9 mg/dL (8.5-10.1) Total Bilirubin 0.3 mg/dL (0.2-1.0) 0.3 mg/dL (0.2-1.0) Aspartate Amino Transf (AST/SGOT) 30 U/L (15-37) 23 U/L (15-37) Alanine Aminotransferase (ALT/SGPT) 21 U/L (14-59) 21 U/L (14-59) Alkaline Phosphatase 131 U/L (46-116) 123 U/L (46-116) Troponin I Quantitative < 0.017 ng/mL (0.000-0.055) CU-Rcv-Z-Type Natriuretic Peptide 6822 pg/mL (0-124) Total Protein 7.3 g/dL (6.4-8.2) 7.3 g/dL (6.4-8.2) Albumin 2.8 g/dL (3.4-5.0) 2.7 g/dL (3.4-5.0) Albumin/Globulin Ratio 0.6 (1.0-1.7) 0.6 (1.0-1.7) O2 Saturation 96 % (92-99) Arterial Blood pH 7.39 (7.35-7.45) Arterial Blood pCO2 at Patient Temp 46 mmHg (35-46) Arterial Blood pO2 at Patient Temp 89 mmHg (65-108) Arterial Blood HCO3 27 mmol/L (21-28) Arterial Blood Base Excess 2 mmol/L (-3-3) FiO2 35 Medications Current Medications Albuterol Sulfate (Ventolin Neb Soln) 10 mg 1X ONCE CONT NEB Last administered on 08/13/18at 16:43; Start 08/13/18 at 16:15; Stop 08/13/18 at 16:16 ; Status DC Vancomycin HCl (Vanco Per Pharmacy) 1 each PRN DAILY PRN MC SEE COMMENTS; Start 08/13/18 at 16:45; Stop 08/13/18 at 18:18; Status DC Levofloxacin/ Dextrose (Levaquin Per Pharmacy) 1 each PRN DAILY PRN MC SEE COMMENTS; Start 08/13/18 at 16:45; Stop 08/13/18 at 18:18; Status DC Furosemide (Lasix) 20 mg 1X ONCE IVP Last administered on 08/13/18at 17:10; Start 08/13/18 at 16:45; Stop 08/13/18 at 16:46; Status DC Methylprednisolone Sodium Succinate (SOLU-Medrol 125MG VIAL) 125 mg 1X ONCE IV Last administered on 08/13/18at 17:09; Start 08/13/18 at 16:45; Stop 08/13/18 at 16:46; Status DC Vancomycin HCl 1.25 gm/Sodium Chloride 250 ml @ 166.667 mls/hr 1X ONCE IV Last administered on 08/13/18at 19:34; Start 08/13/18 at 17:00; Stop 08/13/18 at 18:39; Status DC Levofloxacin/ Dextrose 100 ml @ 100 mls/hr 1X ONCE IV Last administered on at 17:12; Start 08/13/18 at 18:00; Stop 08/13/18 at 18:59; Status DC Albuterol/ Ipratropium (Duoneb) 3 ml RTQID NEB Last administered on 08/13/18at 20:26; Start 08/13/18 at 18:00; Stop 08/13/18 at 20:37; Status DC Vancomycin HCl (Vanco Per Pharmacy) 1 each PRN DAILY PRN MC SEE COMMENTS Last administered on 08/13/18at 19:40; Start 08/13/18 at 18:30 Levofloxacin/ Dextrose (Levaquin Per Pharmacy) 1 each PRN DAILY PRN MC SEE COMMENTS; Start 08/13/18 at 18:30 Levofloxacin/ Dextrose 50 ml @ 50 mls/hr Q24H IV ; Start 08/14/18 at 17:00 Vancomycin HCl 750 mg/Sodium Chloride 250 ml @ 250 mls/hr Q24H IV ; Start 08/14 at 19:30 Vancomycin HCl (Vancomycin Trough Level) 1 each 1X ONCE MC ; Start 08/15/18 at 19:00; Stop 08/15/18 at 19:01 Lactobacillus Rhamnosus (Culturelle) 1 cap BID PO Last administered on at 21:14; Start 08/13/18 at 21:00 Aspirin (Ecotrin) 325 mg DAILY PO ; Start 08/14/18 at 09:00 Atorvastatin Calcium (Lipitor) 40 mg HS PO Last administered on 08/13/18at 21:15 ; Start 08/13/18 at 21:00 Carvedilol (Coreg) 6.25 mg BIDWMEALS PO Last administered on 08/13/18at 21:15; Start 08/13/18 at 21:00 Clopidogrel Bisulfate (Plavix) 75 mg DAILY PO ; Start 08/14/18 at 09:00 Furosemide (Lasix) 40 mg DAILY PO ; Start 08/14/18 at 09:00 Albuterol/ Ipratropium (Duoneb) 3 ml RTQID NEB Last administered on 08/14/18at 07:10; Start 08/14/18 at 08:00 Lisinopril (Prinivil) 20 mg DAILY PO ; Start 08/14/18 at 09:00 Tramadol HCl (Ultram) 50 mg PRN Q6HRS PRN PO PAIN Last administered on at 21:17; Start 08/13/18 at 20:15 Vitamin D (Vitamin D3) 2,000 unit BIDAFTMEAL PO ; Start 08/14/18 at 09:00 Non-Formulary Medication (Fluticasone Propionate (Flovent 220MCG Hfa)) 2 inh BID INH ; Start 08/13/18 at 21:00; Status UNV Ondansetron HCl (Zofran Odt) 4 mg PRN Q8HRS PRN PO NAUSEA/VOMITING; Start 08/13 at 20:45 Pantoprazole Sodium (Protonix) 40 mg PRN DAILY PRN PO HEARTBURN / GAS; Start 08/14/18 at 07:30 Budesonide (Pulmicort) 0.5 mg RTBID NEB Last administered on 08/14/18at 07:10; Start 08/14/18 at 08:00 Levofloxacin/ Dextrose 100 ml @ 100 mls/hr Q24H IV ; Start 08/13/18 at 21:15; Status UNV Metoclopramide HCl (Reglan Vial) 5 mg QIDACHS IV ; Start 08/13/18 at 21:30 Albuterol Sulfate (Ventolin Neb Soln) 2.5 mg PRN Q4HRS PRN NEB SHORTNESS OF BREATH Last administered on 08/14/18at 02:58; Start 08/13/18 at 23:00 Furosemide (Lasix) 40 mg 1X ONCE IVP ; Start 08/14/18 at 07:45; Stop 08/14/18 at 07:46; Status DC Methylprednisolone Sodium Succinate (SOLU-Medrol 125MG VIAL) 80 mg 1X ONCE IV ; Start 08/14/18 at 07:45; Stop 08/14/18 at 07:46; Status DC Active Scripts Active Levaquin (Levofloxacin) 500 Mg Tablet 1 Tab PO DAILY Levofloxacin 250 Mg Tablet 250 Mg PO DAILY06 Furosemide 40 Mg Tablet 40 Mg PO DAILY 30 Days Zofran (Ondansetron Hcl) 4 Mg Tablet 1 Tab PO Q8HRS PRN Reported Tramadol Hcl 50 Mg Tablet 1 Tab PO PRN Q6HRS PRN Flovent 220MCG Hfa (Fluticasone Propionate) 12 Gm Aer.w.adap 2 Inh INH BID Protonix (Pantoprazole Sodium) 20 Mg Tablet.dr 40 Mg PO PRN DAILY PRN Duoneb 0.5-3(2.5) Mg/3 Ml (Albuterol/Ipratropium) 3 Ml Ampul.neb 3 Ml NEB QID Atorvastatin Calcium 40 Mg Tablet 40 Mg PO HS Lisinopril 20 Mg Tablet 20 Mg PO DAILY Carvedilol 6.25 Mg Tablet 6.25 Mg PO BIDWMEALS Vitamin D (Cholecalciferol (Vitamin D3)) 2,000 Unit Capsule 2,000 Unit PO BIDAFTMEAL Aspirin Ec (Aspirin) 325 Mg Tablet. 325 Mg PO DAILY Clopidogrel (Clopidogrel Bisulfate) 75 Mg Tablet 75 Mg PO DAILY Vitals/I & O Vital Sign - Last 24 Hours 08/13/18 08/13/18 08/13/18/2/18 15:58 16:00 16:27 16:57 Temp 98.0 98.0 Pulse 101 88 86 Resp 26 18 18 B/P (MAP) 180/112 (134) 147/85 (105) 144/87 (106) Pulse Ox 100 100 100 100 O2 Delivery BiPAP/CPAP BiPAP/CPAP BiPAP/CPAP BiPAP/CPAP 08/13/18 08/13/18 08/13/18 08/13/18 17:27 17:57 19:50 20:00 Temp 98.6 98.6 Pulse 90 90 96 Resp 20 18 21 B/P (MAP) 145/87 (106) 139/82 (101) 133/79 (97) Pulse Ox 100 100 97 O2 Delivery BiPAP/CPAP BiPAP/CPAP Nasal Cannula Nasal Cannula O2 Flow Rate 2.0 2.0 08/13/18 08/13/18 08/13/18 08/13/18 20:20 21:15 21:17 22:17 Pulse 96 Resp 20 20 B/P (MAP) 133/79 Pulse Ox 97 O2 Delivery Nasal Cannula Nasal Cannula O2 Flow Rate 2.0 2.0 08/13/18 08/13/18 08/14/18 08/14/18 23:05 23:14 02:57 03:40 Temp 98.7 98.8 98.7 98.8 Pulse 91 86 Resp 24 22 B/P (MAP) 122/65 (84) 107/67 (80) Pulse Ox 96 97 96 92 O2 Delivery Nasal Cannula Nasal Cannula Nasal Cannula Nasal Cannula O2 Flow Rate 2.0 2.0 2.0 2.0 08/14/18 08/14/18 08/14/18 07:10 07:12 07:30 Temp 97.9 97.9 Pulse 104 Resp 30 B/P (MAP) 146/91 (109) Pulse Ox 97 97 96 O2 Delivery Nasal Cannula Nasal Cannula Nasal Cannula O2 Flow Rate 2.0 2.0 2.0 Intake and Output 08/13/18 08/13/18 08/14/18 15:00 23:00 07:00 Intake Total 100 ml 240 ml Balance 100 ml 240 ml ARABELLA HEALY MD Aug 14, 2018 08:18
[2018-08-14] MEDS: METOCLOPRAMIDE HCL 10 MG/2 ML VIAL. IV SCH ×4 (08:40→20:03)
--- NOTE | 2018-08-14 09:44 | CONS ---
DATE OF CONSULTATION: PULMONARY CONSULTATION ATTENDING PHYSICIAN: Dr. Ames. REASON FOR CONSULTATION: Dyspnea and recurrent admission. HISTORY OF PRESENT ILLNESS: The patient is a 73-year-old female who was just discharged this . She has history of 50 years of tobacco use and she underwent prolonged stay at the hospital and treated for COPD exacerbation as well as abnormal CT chest that showed progression in the right upper lobe infiltrate. At that time, bronchoscopy was performed and no cultures grew. She was treated with antibiotics. She was discharged home on oxygen. She also had on and off emesis for which GI had done an extensive evaluation. She was found to have some reduced motility. The patient came back to the hospital with increased shortness of breath. She has a cough, which is nonproductive. She was wheezing. She was using her oxygen. She also had a recurrent emesis. No headaches. No diarrhea. No chest pains. No focal weakness. No rash. Chest x-ray was reviewed by me. It shows prominent interstitial markings, consistent with CHF. She has an EF of 10% to 15%. PAST MEDICAL HISTORY: 1. History of CAD. 2. History of CHF. 3. History of severe cardiomyopathy with an EF of 10% to 15%. 4. History of hypertension. 5. VT. 6. History of progressive right upper lobe infiltrate, status post bronchoscopy with recent cultures negative. 7. History of suspected severe COPD, with recently being placed on oxygen, smoked for about 50 years. PAST SURGICAL HISTORY: She has history of PEG tube, defibrillator and cardiac stents. ALLERGIES: PENICILLIN AND SULFA. REVIEW OF SYSTEMS: A 12-point system review obtained. Pertinent positives discussed in my history of present illness, otherwise noncontributory. All systems that were negative were reviewed as well. MEDICATIONS: Reviewed as listed in the MRAD, including antibiotic, vancomycin and Levaquin. She is also on bronchodilators, DuoNebs and budesonide. SOCIAL HISTORY: Smoked for about 50 years, quit 2 years ago. PHYSICAL EXAMINATION: GENERAL: On examination, she appears ill. VITAL SIGNS: Blood pressure 146/91, pulse ox 96% on 2 liters, afebrile. HEENT: Sclerae nonicteric. NECK: Supple. LUNGS: With bilateral faint expiratory wheezes. CARDIOVASCULAR EXAMINATION: Regular rate and rhythm. ABDOMEN: Soft. EXTREMITIES: With no pitting edema. LABORATORY DATA: Labs were reviewed. White cell count 8.5, hemoglobin 13.2 and platelets are 274,000. ABGs with a pH of 7.39, pCO2 of 46 and a pO2 of 89 on 35% oxygen. BUN and creatinine normal. IMPRESSION: 1. Dyspnea with recurrent respiratory failure secondary to combination of acute exacerbation of chronic obstructive pulmonary disease and [id number] systolic heart failure. 2. Abnormal chest x-ray with prominent interstitial markings, suggesting mild interstitial edema. 3. Severe cardiomyopathy with an ejection fraction of 10% to 15%, status post defibrillator. 4. History of progressive right upper lobe infiltrate based on recent CT chest, status post bronchoscopy during recent admission, with no evidence of any bacterial growth. Yeast was isolated, which was a contaminant. RECOMMENDATIONS: 1. Continue with present oxygen. 2. DuoNebs along with Pulmicort nebulizers. 3. IV steroids. 4. Diuresis. 5. If bronchospasm does not resolve, then consider holding carvedilol. 6. Continue empiric antibiotics. 7. Repeat CT chest in 4-6 weeks. 8. Discussed with RN and discussed with family. We will follow along with you. JEFF MCDONNELL MD DR: LINK/murali JOB#: [id number] / [id number]
--- NOTE | 2018-08-14 09:57 | RAD ---
EXAM: CHEST 1 VIEW History: Shortness of breath, vomiting COMPARISON: 08/13/2018 TECHNIQUE: Single portable radiograph of the chest FINDINGS: Mild cardiomegaly. Left-sided cardiac pacer AICD is identified. Mild prominent appearing bilateral interstitial lung markings. The costophrenic sulci are clear and well demarcated. IMPRESSION: Mild congestive changes unchanged. Electronically signed by: Darryn Gonzales MD (08/14/2018 9:54 AM) [facility]
[2018-08-14 10:47] VITALS: BP 130/68
[2018-08-14] MEDS: traMADol 50 MG TABLET PO PRN (10:48)
[2018-08-14] MEDS: busPIRone 10 MG TABLET. PO PRN (10:49)
[2018-08-14] MEDS: CHOLECALCIFEROL (VITAMIN D3) 1,000 UNIT TABLET PO SCH ×2 (10:49→17:03)
[2018-08-14] MEDS: ASPIRIN ENTERIC COATED 325 MG TABLET.DR. PO SCH (10:49)
[2018-08-14] MEDS: LACTOBACILLUS RHAMNOSUS GG 1 CAPSULE. PO SCH ×2 (10:49→20:03)
[2018-08-14] MEDS: LORazepam 0.5 MG TABLET PO PRN (10:49)
[2018-08-14] MEDS: CLOPIDOGREL BISULFATE 75 MG TABLET PO SCH (10:50)
[2018-08-14] MEDS: LISINOPRIL 20 MG TABLET PO SCH (10:50)
[2018-08-14] MEDS: CARVEDILOL 6.25 MG TABLET. PO SCH ×2 (10:50→17:03)
[2018-08-14] MEDS: VANCOMYCIN PER PHARMACY MC PRN (10:50)
[2018-08-14] MEDS: FUROSEMIDE 40 MG TABLET. PO SCH (10:50)
[2018-08-14] MEDS ORDERED: traMADol 50 MG TABLET PO ONE (11:30)
--- NOTE | 2018-08-14 12:10 | PDOC ---
G I PROGRESS NOTE Reason for Follow-up Gastroparesis/tube feedings Subjective Tolerating tube feedings Physical Exam Lungs decreased BS CV S1 S2 ABD +BS, soft, G tube intact Review of Relevant I have reviewed the following items loren (where applicable) has been applied. Labs Laboratory Tests Test 08/13/18 16:00 08/13/18 16:15 08/14/18 04:00 White Blood Count 13.0 x10^3/uL (4.0-11.0) 8.5 x10^3/uL (4.0-11.0) Red Blood Count 4.46 x10^6/uL (3.50-5.40) 4.45 x10^6/uL (3.50-5.40) Hemoglobin 13.5 g/dL (12.0-15.5) 13.2 g/dL (12.0-15.5) Hematocrit 40.0 % (36.0-47.0) 39.7 % (36.0-47.0) Mean Corpuscular Volume 90 fL (79-100) 89 fL (79-100) Mean Corpuscular Hemoglobin 30 pg (25-35) 30 pg (25-35) Mean Corpuscular Hemoglobin Concent 34 g/dL (31-37) 33 g/dL (31-37) Red Cell Distribution Width 14.1 % (11.5-14.5) 13.6 % (11.5-14.5) Platelet Count 277 x10^3/uL (140-400) 274 x10^3/uL (140-400) Neutrophils (%) (Auto) 45 % (31-73) 87 % (31-73) Lymphocytes (%) (Auto) 17 % (24-48) 9 % (24-48) Monocytes (%) (Auto) 5 % (0-9) 3 % (0-9) Eosinophils (%) (Auto) 33 % (0-3) 1 % (0-3) Basophils (%) (Auto) 1 % (0-3) 0 % (0-3) Neutrophils # (Auto) 5.9 x10^3uL (1.8-7.7) 7.4 x10^3uL (1.8-7.7) Lymphocytes # (Auto) 2.2 x10^3/uL (1.0-4.8) 0.8 x10^3/uL (1.0-4.8) Monocytes # (Auto) 0.6 x10^3/uL (0.0-1.1) 0.2 x10^3/uL (0.0-1.1) Eosinophils # (Auto) 4.3 x10^3/uL (0.0-0.7) 0.1 x10^3/uL (0.0-0.7) Basophils # (Auto) 0.1 x10^3/uL (0.0-0.2) 0.0 x10^3/uL (0.0-0.2) Segmented Neutrophils % 55 % (35-66) Lymphocytes % 14 % (24-48) Monocytes % 5 % (0-10) Eosinophils % 26 % (0-5) Toxic Granulation Slight Toxic Vacuolation Slight Platelet Estimate Adequate (ADEQUATE) Prothrombin Time 12.8 SEC (11.7-14.0) Prothromb Time International Ratio 1.0 (0.8-1.1) Sodium Level 141 mmol/L (136-145) 135 mmol/L (136-145) Potassium Level 4.5 mmol/L (3.5-5.1) 4.4 mmol/L (3.5-5.1) Chloride Level 102 mmol/L (98-107) 98 mmol/L (98-107) Carbon Dioxide Level 28 mmol/L (21-32) 28 mmol/L (21-32) Anion Gap 11 (6-14) 9 (6-14) Blood Urea Nitrogen 10 mg/dL (7-20) 16 mg/dL (7-20) Creatinine 0.8 mg/dL (0.6-1.0) 0.8 mg/dL (0.6-1.0) Estimated GFR (Cockcroft-Gault) 84.8 84.8 BUN/Creatinine Ratio 13 (6-20) 20 (6-20) Glucose Level 83 mg/dL (70-99) 165 mg/dL (70-99) Lactic Acid Level 1.4 mmol/L (0.4-2.0) Calcium Level 9.8 mg/dL (8.5-10.1) 9.9 mg/dL (8.5-10.1) Total Bilirubin 0.3 mg/dL (0.2-1.0) 0.3 mg/dL (0.2-1.0) Aspartate Amino Transf (AST/SGOT) 30 U/L (15-37) 23 U/L (15-37) Alanine Aminotransferase (ALT/SGPT) 21 U/L (14-59) 21 U/L (14-59) Alkaline Phosphatase 131 U/L (46-116) 123 U/L (46-116) Troponin I Quantitative < 0.017 ng/mL (0.000-0.055) QJ-Huz-A-Type Natriuretic Peptide 6822 pg/mL (0-124) Total Protein 7.3 g/dL (6.4-8.2) 7.3 g/dL (6.4-8.2) Albumin 2.8 g/dL (3.4-5.0) 2.7 g/dL (3.4-5.0) Albumin/Globulin Ratio 0.6 (1.0-1.7) 0.6 (1.0-1.7) O2 Saturation 96 % (92-99) Arterial Blood pH 7.39 (7.35-7.45) Arterial Blood pCO2 at Patient Temp 46 mmHg (35-46) Arterial Blood pO2 at Patient Temp 89 mmHg (65-108) Arterial Blood HCO3 27 mmol/L (21-28) Arterial Blood Base Excess 2 mmol/L (-3-3) FiO2 35 Laboratory Tests Test 08/13/18 16:00 08/13/18 16:15 08/14/18 04:00 White Blood Count 13.0 x10^3/uL (4.0-11.0) 8.5 x10^3/uL (4.0-11.0) Red Blood Count 4.46 x10^6/uL (3.50-5.40) 4.45 x10^6/uL (3.50-5.40) Hemoglobin 13.5 g/dL (12.0-15.5) 13.2 g/dL (12.0-15.5) Hematocrit 40.0 % (36.0-47.0) 39.7 % (36.0-47.0) Mean Corpuscular Volume 90 fL (79-100) 89 fL (79-100) Mean Corpuscular Hemoglobin 30 pg (25-35) 30 pg (25-35) Mean Corpuscular Hemoglobin Concent 34 g/dL (31-37) 33 g/dL (31-37) Red Cell Distribution Width 14.1 % (11.5-14.5) 13.6 % (11.5-14.5) Platelet Count 277 x10^3/uL (140-400) 274 x10^3/uL (140-400) Neutrophils (%) (Auto) 45 % (31-73) 87 % (31-73) Lymphocytes (%) (Auto) 17 % (24-48) 9 % (24-48) Monocytes (%) (Auto) 5 % (0-9) 3 % (0-9) Eosinophils (%) (Auto) 33 % (0-3) 1 % (0-3) Basophils (%) (Auto) 1 % (0-3) 0 % (0-3) Neutrophils # (Auto) 5.9 x10^3uL (1.8-7.7) 7.4 x10^3uL (1.8-7.7) Lymphocytes # (Auto) 2.2 x10^3/uL (1.0-4.8) 0.8 x10^3/uL (1.0-4.8) Monocytes # (Auto) 0.6 x10^3/uL (0.0-1.1) 0.2 x10^3/uL (0.0-1.1) Eosinophils # (Auto) 4.3 x10^3/uL (0.0-0.7) 0.1 x10^3/uL (0.0-0.7) Basophils # (Auto) 0.1 x10^3/uL (0.0-0.2) 0.0 x10^3/uL (0.0-0.2) Segmented Neutrophils % 55 % (35-66) Lymphocytes % 14 % (24-48) Monocytes % 5 % (0-10) Eosinophils % 26 % (0-5) Toxic Granulation Slight Toxic Vacuolation Slight Platelet Estimate Adequate (ADEQUATE) Prothrombin Time 12.8 SEC (11.7-14.0) Prothromb Time International Ratio 1.0 (0.8-1.1) Sodium Level 141 mmol/L (136-145) 135 mmol/L (136-145) Potassium Level 4.5 mmol/L (3.5-5.1) 4.4 mmol/L (3.5-5.1) Chloride Level 102 mmol/L (98-107) 98 mmol/L (98-107) Carbon Dioxide Level 28 mmol/L (21-32) 28 mmol/L (21-32) Anion Gap 11 (6-14) 9 (6-14) Blood Urea Nitrogen 10 mg/dL (7-20) 16 mg/dL (7-20) Creatinine 0.8 mg/dL (0.6-1.0) 0.8 mg/dL (0.6-1.0) Estimated GFR (Cockcroft-Gault) 84.8 84.8 BUN/Creatinine Ratio 13 (6-20) 20 (6-20) Glucose Level 83 mg/dL (70-99) 165 mg/dL (70-99) Lactic Acid Level 1.4 mmol/L (0.4-2.0) Calcium Level 9.8 mg/dL (8.5-10.1) 9.9 mg/dL (8.5-10.1) Total Bilirubin 0.3 mg/dL (0.2-1.0) 0.3 mg/dL (0.2-1.0) Aspartate Amino Transf (AST/SGOT) 30 U/L (15-37) 23 U/L (15-37) Alanine Aminotransferase (ALT/SGPT) 21 U/L (14-59) 21 U/L (14-59) Alkaline Phosphatase 131 U/L (46-116) 123 U/L (46-116) Troponin I Quantitative < 0.017 ng/mL (0.000-0.055) AY-Gpk-E-Type Natriuretic Peptide 6822 pg/mL (0-124) Total Protein 7.3 g/dL (6.4-8.2) 7.3 g/dL (6.4-8.2) Albumin 2.8 g/dL (3.4-5.0) 2.7 g/dL (3.4-5.0) Albumin/Globulin Ratio 0.6 (1.0-1.7) 0.6 (1.0-1.7) O2 Saturation 96 % (92-99) Arterial Blood pH 7.39 (7.35-7.45) Arterial Blood pCO2 at Patient Temp 46 mmHg (35-46) Arterial Blood pO2 at Patient Temp 89 mmHg (65-108) Arterial Blood HCO3 27 mmol/L (21-28) Arterial Blood Base Excess 2 mmol/L (-3-3) FiO2 35 Medications Current Medications Albuterol Sulfate (Ventolin Neb Soln) 10 mg 1X ONCE CONT NEB Last administered on 08/13/18at 16:43; Start 08/13/18 at 16:15; Stop 08/13/18 at 16:16 ; Status DC Vancomycin HCl (Vanco Per Pharmacy) 1 each PRN DAILY PRN MC SEE COMMENTS; Start 08/13/18 at 16:45; Stop 08/13/18 at 18:18; Status DC Levofloxacin/ Dextrose (Levaquin Per Pharmacy) 1 each PRN DAILY PRN MC SEE COMMENTS; Start 08/13/18 at 16:45; Stop 08/13/18 at 18:18; Status DC Furosemide (Lasix) 20 mg 1X ONCE IVP Last administered on 08/13/18at 17:10; Start 08/13/18 at 16:45; Stop 08/13/18 at 16:46; Status DC Methylprednisolone Sodium Succinate (SOLU-Medrol 125MG VIAL) 125 mg 1X ONCE IV Last administered on 08/13/18at 17:09; Start 08/13/18 at 16:45; Stop 08/13/18 at 16:46; Status DC Vancomycin HCl 1.25 gm/Sodium Chloride 250 ml @ 166.667 mls/hr 1X ONCE IV Last administered on 08/13/18at 19:34; Start 08/13/18 at 17:00; Stop 08/13/18 at 18:39; Status DC Levofloxacin/ Dextrose 100 ml @ 100 mls/hr 1X ONCE IV Last administered on at 17:12; Start 08/13/18 at 18:00; Stop 08/13/18 at 18:59; Status DC Albuterol/ Ipratropium (Duoneb) 3 ml RTQID NEB Last administered on 08/13/18at 20:26; Start 08/13/18 at 18:00; Stop 08/13/18 at 20:37; Status DC Vancomycin HCl (Vanco Per Pharmacy) 1 each PRN DAILY PRN MC SEE COMMENTS Last administered on 08/14/18 10:50; Start 08/13/18 at 18:30 Levofloxacin/ Dextrose (Levaquin Per Pharmacy) 1 each PRN DAILY PRN MC SEE COMMENTS; Start 08/13/18 at 18:30 Levofloxacin/ Dextrose 50 ml @ 50 mls/hr Q24H IV ; Start 08/14/18 at 17:00 Vancomycin HCl 750 mg/Sodium Chloride 250 ml @ 250 mls/hr Q24H IV ; Start 08/14 at 19:30 Vancomycin HCl (Vancomycin Trough Level) 1 each 1X ONCE MC ; Start 08/15/18 at 19:00; Stop 08/15/18 at 19:01 Lactobacillus Rhamnosus (Culturelle) 1 cap BID PO Last administered on 10:49; Start 08/13/18 at 21:00 Aspirin (Ecotrin) 325 mg DAILY PO Last administered on 08/14/18 10:49; Start 08/14/18 at 09:00 Atorvastatin Calcium (Lipitor) 40 mg HS PO Last administered on 08/13/18at 21:15 ; Start 08/13/18 at 21:00 Carvedilol (Coreg) 6.25 mg BIDWMEALS PO Last administered on 08/14/18 10:50; Start 08/13/18 at 21:00 Clopidogrel Bisulfate (Plavix) 75 mg DAILY PO Last administered on 08/14/18 10 :50; Start 08/14/18 at 09:00 Furosemide (Lasix) 40 mg DAILY PO Last administered on 08/14/18 10:50; Start 08/14/18 at 09:00 Albuterol/ Ipratropium (Duoneb) 3 ml RTQID NEB Last administered on 08/14/18 07:10; Start 08/14/18 at 08:00 Lisinopril (Prinivil) 20 mg DAILY PO Last administered on 08/14/18 10:50; Start 08/14/18 at 09:00 Tramadol HCl (Ultram) 50 mg PRN Q6HRS PRN PO PAIN Last administered on 10:48; Start 08/13/18 at 20:15 Vitamin D (Vitamin D3) 2,000 unit BIDAFTMEAL PO Last administered on 08/14/18 10:49; Start 08/14/18 at 09:00 Non-Formulary Medication (Fluticasone Propionate (Flovent 220MCG Hfa)) 2 inh BID INH ; Start 08/13/18 at 21:00; Status UNV Ondansetron HCl (Zofran Odt) 4 mg PRN Q8HRS PRN PO NAUSEA/VOMITING; Start 08/13 at 20:45 Pantoprazole Sodium (Protonix) 40 mg PRN DAILY PRN PO HEARTBURN / GAS; Start 08/14/18 at 07:30 Budesonide (Pulmicort) 0.5 mg RTBID NEB Last administered on 08/14/18at 07:10; Start 08/14/18 at 08:00 Levofloxacin/ Dextrose 100 ml @ 100 mls/hr Q24H IV ; Start 08/13/18 at 21:15; Status UNV Metoclopramide HCl (Reglan Vial) 5 mg QIDACHS IV Last administered on at 11:30; Start 08/13/18 at 21:30 Albuterol Sulfate (Ventolin Neb Soln) 2.5 mg PRN Q4HRS PRN NEB SHORTNESS OF BREATH Last administered on 08/14/18at 02:58; Start 08/13/18 at 23:00 Furosemide (Lasix) 40 mg 1X ONCE IVP Last administered on 08/14/18at 08:40; Start 08/14/18 at 07:45; Stop 08/14/18 at 07:46; Status DC Methylprednisolone Sodium Succinate (SOLU-Medrol 125MG VIAL) 80 mg 1X ONCE IV Last administered on 08/14/18at 08:40; Start 08/14/18 at 07:45; Stop 08/14/18 at 07:46; Status DC Methylprednisolone Sodium Succinate (SOLU-Medrol 125MG VIAL) 60 mg Q8HRS IV ; Start 08/14/18 at 14:00; Stop 08/14/18 at 14:00; Status DC Methylprednisolone Sodium Succinate (SOLU-Medrol 125MG VIAL) 60 mg DAILY IV ; Start 08/15/18 at 09:00 Trazodone HCl (Desyrel) 50 mg PRN QHS PRN PO INSOMNIA; Start 08/14/18 at 10:45 Buspirone HCl (Buspar) 10 mg PRN TID PRN PO ANXIETY, 1ST CHOICE Last administered on 08/14/18at 10:49; Start 08/14/18 at 10:45 Lorazepam (Ativan) 0.5 mg PRN Q8HRS PRN PO ANXIETY / AGITATION, 2ND CHOIC Last administered on 08/14/18at 10:49; Start 08/14/18 at 10:45 Tramadol HCl (Ultram) 100 mg PRN Q6HRS PRN PO PAIN; Start 08/14/18 at 11:00 Tramadol HCl (Ultram) 50 mg 1X ONCE PO Last administered on 08/14/18at 11:30; Start 08/14/18 at 11:30; Stop 08/14/18 at 11:31; Status DC Active Scripts Active Levaquin (Levofloxacin) 500 Mg Tablet 1 Tab PO DAILY Levofloxacin 250 Mg Tablet 250 Mg PO DAILY06 Furosemide 40 Mg Tablet 40 Mg PO DAILY 30 Days Zofran (Ondansetron Hcl) 4 Mg Tablet 1 Tab PO Q8HRS PRN Reported Tramadol Hcl 50 Mg Tablet 1 Tab PO PRN Q6HRS PRN Flovent 220MCG Hfa (Fluticasone Propionate) 12 Gm Aer.w.adap 2 Inh INH BID Protonix (Pantoprazole Sodium) 20 Mg Tablet.dr 40 Mg PO PRN DAILY PRN Duoneb 0.5-3(2.5) Mg/3 Ml (Albuterol/Ipratropium) 3 Ml Ampul.neb 3 Ml NEB QID Atorvastatin Calcium 40 Mg Tablet 40 Mg PO HS Lisinopril 20 Mg Tablet 20 Mg PO DAILY Carvedilol 6.25 Mg Tablet 6.25 Mg PO BIDWMEALS Vitamin D (Cholecalciferol (Vitamin D3)) 2,000 Unit Capsule 2,000 Unit PO BIDAFTMEAL Aspirin Ec (Aspirin) 325 Mg Tablet. 325 Mg PO DAILY Clopidogrel (Clopidogrel Bisulfate) 75 Mg Tablet 75 Mg PO DAILY Vitals/I & O Vital Sign - Last 24 Hours 08/13/18 08/13/18 08/13/18 08/13/18 15:58 16:00 16:27 16:57 Temp 98.0 98.0 Pulse 101 88 86 Resp 26 18 18 B/P (MAP) 180/112 (134) 147/85 (105) 144/87 (106) Pulse Ox 100 100 100 100 O2 Delivery BiPAP/CPAP BiPAP/CPAP BiPAP/CPAP BiPAP/CPAP 08/13/18 08/13/18 08/13/18 08/13/18 17:27 17:57 19:50 20:00 Temp 98.6 98.6 Pulse 90 90 96 Resp 20 18 21 B/P (MAP) 145/87 (106) 139/82 (101) 133/79 (97) Pulse Ox 100 100 97 O2 Delivery BiPAP/CPAP BiPAP/CPAP Nasal Cannula Nasal Cannula O2 Flow Rate 2.0 2.0 08/13/18 08/13/18 08/13/18 08/13/18 20:20 21:15 21:17 22:17 Pulse 96 Resp 20 20 B/P (MAP) 133/79 Pulse Ox 97 O2 Delivery Nasal Cannula Nasal Cannula O2 Flow Rate 2.0 2.0 08/13/18 08/13/18 08/14/18 08/14/18 23:05 23:14 02:57 03:40 Temp 98.7 98.8 98.7 98.8 Pulse 91 86 Resp 24 22 B/P (MAP) 122/65 (84) 107/67 (80) Pulse Ox 96 97 96 92 O2 Delivery Nasal Cannula Nasal Cannula Nasal Cannula Nasal Cannula O2 Flow Rate 2.0 2.0 2.0 2.0 08/14/18 08/14/18 08/14/18 08/14/18 07:10 07:12 07:30 08:00 Temp 97.9 97.9 Pulse 104 Resp 30 B/P (MAP) 146/91 (109) Pulse Ox 97 97 96 O2 Delivery Nasal Cannula Nasal Cannula Nasal Cannula Nasal Cannula O2 Flow Rate 2.0 2.0 2.0 2.0 08/14/18 08/14/18 08/14/18 08/14/18 10:47 10:48 10:50 10:50 Temp 97.9 97.9 Pulse 94 94 94 Resp 18 B/P (MAP) 130/68 (88) 130/68 130/68 Pulse Ox 97 O2 Delivery Nasal Cannula Room Air O2 Flow Rate 2.0 08/14/18 11:30 Resp 18 O2 Delivery Room Air Intake and Output 08/13/18 08/13/18 08/14/18 15:00 23:00 07:00 Intake Total 100 ml 240 ml Balance 100 ml 240 ml Problem List Problems Medical Problems: (1) CHF (congestive heart failure) Status: Acute Assessment Gastroapresis- with G tube, continue with feedings as tolerated COPD- therapy per pulmonary PROPERIN PATEL MD Aug 14, 2018 12:10
[2018-08-14] MEDS ORDERED: methylPREDNISolone SOD SUCC PF 125 MG/2 ML VIAL. IV SCH (14:00)
[2018-08-14 15:00] VITALS: BP 134/72
[2018-08-14 19:30] VITALS: BP 141/76
[2018-08-14] MEDS: VANCOMYCIN 750 MG in IV NORMAL SALINE 250ML 250 ML IV SCH (20:02)
[2018-08-14] MEDS: traZODone 50 MG TABLET. PO PRN (20:03)
[2018-08-14] MEDS: ATORVASTATIN CALCIUM 40 MG TABLET. PO SCH (20:03)
[2018-08-14 23:16] VITALS: BP 122/71
[2018-08-15] MEDS: ALBUTEROL SULFATE 2.5 MG/3 ML NEBU. NEB PRN (01:28)
[2018-08-15 03:00] VITALS: BP 119/72
[2018-08-15] MEDS: LORazepam 0.5 MG TABLET PO PRN ×2 (03:00→11:55)
[2018-08-15] MEDS: traMADol 50 MG TABLET PO PRN ×2 (03:05→09:13)
[2018-08-15 07:20] VITALS: BP 112/59
--- NOTE | 2018-08-15 07:24 | PDOC ---
PROGRESS NOTES Chief Complaint Chief Complaint SOA. Abnormal CT chest revealing right upper lobe infiltrate compared to the film 06/27 s/p bronch (`08/05/18) - Chronic right upper lobe lesion or infiltrate similar to slightly worse since prior study. Mild increase in interstitial infiltrates, typically in the right lung. Esophageal wall thickening, appears similar. by ct chest 08-11 Indwelling pacer Chronic A.fib Cardiomyopathy, ejection fraction 10%-15%. Undernourished-BMI 15.3/Cachexia Hx bulimia Hypoxic respiratory failure Questionable hx COPD Indwelling PEG sec to SEVERE GASTROPARESIS confirmed by GET hypotension responsive to fluids fell 08/09, right chest wall pain, on lidoderm patch, severe protein-caloric malnutrition QUALIFIED WITH 6 min walk for home o2 History of Present Illness History of Present Illness Chief complaint of respiratory distress the patient was just here yesterday. She has a history of severe COPD as well as severe CHF with an EF of 10-15% she got more short of breath this afternoon she is on home oxygen daughter does not know why she is so short of breath, felt the oxygen should be helping, but did not have decreased saturations, though does have increased work of breathing Lives alone, was discharged, but home health was not able to show up to her home yesterday and not able to come until Thursday08/17/18. She has been coughing since she got home no definite fever does complain of right-sided chest pain, still today.Today c/o not sleeping well due to shortness of breath and anxiety is improved. Stressed about her who drinks and smokes in the home, so he lives in a separate home many nights and she is anxious about living alone with no help. She is fearful to alone A/P: Pain - toe, ribs, will increase tramadol, prn morphine IV Anxiety - will add prn trazodone nightly and buspar TID prn as well as lorazepam 0.5mg TID PRN SOA. Abnormal CT chest revealing right upper lobe infiltrate compared to the film 06/27 s/p bronch (`08/05/18) - consult pulm Chronic right upper lobe lesion or infiltrate similar to slightly worse since prior study. Mild increase in interstitial infiltrates, typically in the right lung. Esophageal wall thickening, appears similar. by ct chest 08-11 Indwelling pacer Chronic A.fib Cardiomyopathy, ejection fraction 10%-15%. Undernourished-BMI 15.3/Cachexia Hx bulimia Hypoxic respiratory failure - improved, will see pulm Questionable hx COPD Indwelling PEG sec to SEVERE GASTROPARESIS confirmed by GET hypotension responsive to fluids fell 08/09, right chest wall pain, on lidoderm patch, severe protein-caloric malnutrition QUALIFIED WITH 6 min walk for home o2 FEN - Cardiac diet, supplements PPX - heparin FULL CODE Inpatient for at least 2 midnights with worsening dypsnea, anxiety, unsafe to be home alone Vitals Vitals Vital Signs Date Time Temp Pulse Resp B/P (MAP) Pulse Ox O2 Delivery O2 Flow Rate FiO2 08/15/18 03:05 22 Nasal Cannula 2.0 08/15/18 03:00 98.0 95 119/72 (88) 92 98.0 Physical Exam General: Oriented X3, Cooperative, mild distress Lungs: Wheezing, Other Abdomen: Other (MILD TENDERNESS) Extremities: No cyanosis Assessment and Plan Assessmemt and Plan Problems Medical Problems: (1) CHF (congestive heart failure) Status: Acute Comment Review of Relevant I have reviewed the following items loren (where applicable) has been applied. Labs Laboratory Tests Test 08/13/18 16:00 08/13/18 16:15 08/14/18 04:00 White Blood Count 13.0 x10^3/uL (4.0-11.0) 8.5 x10^3/uL (4.0-11.0) Red Blood Count 4.46 x10^6/uL (3.50-5.40) 4.45 x10^6/uL (3.50-5.40) Hemoglobin 13.5 g/dL (12.0-15.5) 13.2 g/dL (12.0-15.5) Hematocrit 40.0 % (36.0-47.0) 39.7 % (36.0-47.0) Mean Corpuscular Volume 90 fL (79-100) 89 fL (79-100) Mean Corpuscular Hemoglobin 30 pg (25-35) 30 pg (25-35) Mean Corpuscular Hemoglobin Concent 34 g/dL (31-37) 33 g/dL (31-37) Red Cell Distribution Width 14.1 % (11.5-14.5) 13.6 % (11.5-14.5) Platelet Count 277 x10^3/uL (140-400) 274 x10^3/uL (140-400) Neutrophils (%) (Auto) 45 % (31-73) 87 % (31-73) Lymphocytes (%) (Auto) 17 % (24-48) 9 % (24-48) Monocytes (%) (Auto) 5 % (0-9) 3 % (0-9) Eosinophils (%) (Auto) 33 % (0-3) 1 % (0-3) Basophils (%) (Auto) 1 % (0-3) 0 % (0-3) Neutrophils # (Auto) 5.9 x10^3uL (1.8-7.7) 7.4 x10^3uL (1.8-7.7) Lymphocytes # (Auto) 2.2 x10^3/uL (1.0-4.8) 0.8 x10^3/uL (1.0-4.8) Monocytes # (Auto) 0.6 x10^3/uL (0.0-1.1) 0.2 x10^3/uL (0.0-1.1) Eosinophils # (Auto) 4.3 x10^3/uL (0.0-0.7) 0.1 x10^3/uL (0.0-0.7) Basophils # (Auto) 0.1 x10^3/uL (0.0-0.2) 0.0 x10^3/uL (0.0-0.2) Segmented Neutrophils % 55 % (35-66) Lymphocytes % 14 % (24-48) Monocytes % 5 % (0-10) Eosinophils % 26 % (0-5) Toxic Granulation Slight Toxic Vacuolation Slight Platelet Estimate Adequate (ADEQUATE) Prothrombin Time 12.8 SEC (11.7-14.0) Prothromb Time International Ratio 1.0 (0.8-1.1) Sodium Level 141 mmol/L (136-145) 135 mmol/L (136-145) Potassium Level 4.5 mmol/L (3.5-5.1) 4.4 mmol/L (3.5-5.1) Chloride Level 102 mmol/L (98-107) 98 mmol/L (98-107) Carbon Dioxide Level 28 mmol/L (21-32) 28 mmol/L (21-32) Anion Gap 11 (6-14) 9 (6-14) Blood Urea Nitrogen 10 mg/dL (7-20) 16 mg/dL (7-20) Creatinine 0.8 mg/dL (0.6-1.0) 0.8 mg/dL (0.6-1.0) Estimated GFR (Cockcroft-Gault) 84.8 84.8 BUN/Creatinine Ratio 13 (6-20) 20 (6-20) Glucose Level 83 mg/dL (70-99) 165 mg/dL (70-99) Lactic Acid Level 1.4 mmol/L (0.4-2.0) Calcium Level 9.8 mg/dL (8.5-10.1) 9.9 mg/dL (8.5-10.1) Total Bilirubin 0.3 mg/dL (0.2-1.0) 0.3 mg/dL (0.2-1.0) Aspartate Amino Transf (AST/SGOT) 30 U/L (15-37) 23 U/L (15-37) Alanine Aminotransferase (ALT/SGPT) 21 U/L (14-59) 21 U/L (14-59) Alkaline Phosphatase 131 U/L (46-116) 123 U/L (46-116) Troponin I Quantitative < 0.017 ng/mL (0.000-0.055) SO-[id number]-Type Natriuretic Peptide 6822 pg/mL (0-124) Total Protein 7.3 g/dL (6.4-8.2) 7.3 g/dL (6.4-8.2) Albumin 2.8 g/dL (3.4-5.0) 2.7 g/dL (3.4-5.0) Albumin/Globulin Ratio 0.6 (1.0-1.7) 0.6 (1.0-1.7) O2 Saturation 96 % (92-99) Arterial Blood pH 7.39 (7.35-7.45) Arterial Blood pCO2 at Patient Temp 46 mmHg (35-46) Arterial Blood pO2 at Patient Temp 89 mmHg (65-108) Arterial Blood HCO3 27 mmol/L (21-28) Arterial Blood Base Excess 2 mmol/L (-3-3) FiO2 35 Microbiology 11/2/18 Blood Culture - Preliminary, Resulted NO GROWTH AFTER 1 DAY Medications Current Medications Albuterol Sulfate (Ventolin Neb Soln) 10 mg 1X ONCE CONT NEB Last administered on 08/13/18at 16:43; Start 08/13/18 at 16:15; Stop 08/13/18 at 16:16 ; Status DC Vancomycin HCl (Vanco Per Pharmacy) 1 each PRN DAILY PRN MC SEE COMMENTS; Start 08/13/18 at 16:45; Stop 08/13/18 at 18:18; Status DC Levofloxacin/ Dextrose (Levaquin Per Pharmacy) 1 each PRN DAILY PRN MC SEE COMMENTS; Start 08/13/18 at 16:45; Stop 08/13/18 at 18:18; Status DC Furosemide (Lasix) 20 mg 1X ONCE IVP Last administered on 08/13/18at 17:10; Start 08/13/18 at 16:45; Stop 08/13/18 at 16:46; Status DC Methylprednisolone Sodium Succinate (SOLU-Medrol 125MG VIAL) 125 mg 1X ONCE IV Last administered on 08/13/18at 17:09; Start 08/13/18 at 16:45; Stop 08/13/18 at 16:46; Status DC Vancomycin HCl 1.25 gm/Sodium Chloride 250 ml @ 166.667 mls/hr 1X ONCE IV Last administered on 08/13/18at 19:34; Start 08/13/18 at 17:00; Stop 08/13/18 at 18:39; Status DC Levofloxacin/ Dextrose 100 ml @ 100 mls/hr 1X ONCE IV Last administered on at 17:12; Start 08/13/18 at 18:00; Stop 08/13/18 at 18:59; Status DC Albuterol/ Ipratropium (Duoneb) 3 ml RTQID NEB Last administered on 08/13/18at 20:26; Start 08/13/18 at 18:00; Stop 08/13/18 at 20:37; Status DC Vancomycin HCl (Vanco Per Pharmacy) 1 each PRN DAILY PRN MC SEE COMMENTS Last administered on 08/14/18at 10:50; Start 08/13/18 at 18:30 Levofloxacin/ Dextrose (Levaquin Per Pharmacy) 1 each PRN DAILY PRN MC SEE COMMENTS; Start 08/13/18 at 18:30 Levofloxacin/ Dextrose 50 ml @ 50 mls/hr Q24H IV Last administered on 17:02; Start 08/14/18 at 17:00 Vancomycin HCl 750 mg/Sodium Chloride 250 ml @ 250 mls/hr Q24H IV Last administered on 08/14/18 20:02; Start 08/14/18 at 19:30 Vancomycin HCl (Vancomycin Trough Level) 1 each 1X ONCE MC ; Start 08/15/18 at 19:00; Stop 08/15/18 at 19:01 Lactobacillus Rhamnosus (Culturelle) 1 cap BID PO Last administered on 20:03; Start 08/13/18 at 21:00 Aspirin (Ecotrin) 325 mg DAILY PO Last administered on 08/14/18 10:49; Start 08/14/18 at 09:00 Atorvastatin Calcium (Lipitor) 40 mg HS PO Last administered on 08/14/18 20:03 ; Start 08/13/18 at 21:00 Carvedilol (Coreg) 6.25 mg BIDWMEALS PO Last administered on 08/14/18 17:03; Start 08/13/18 at 21:00 Clopidogrel Bisulfate (Plavix) 75 mg DAILY PO Last administered on 08/14/18 10 :50; Start 08/14/18 at 09:00 Furosemide (Lasix) 40 mg DAILY PO Last administered on 08/14/18 10:50; Start 08/14/18 at 09:00 Albuterol/ Ipratropium (Duoneb) 3 ml RTQID NEB Last administered on 08/14/18 19:38; Start 08/14/18 at 08:00 Lisinopril (Prinivil) 20 mg DAILY PO Last administered on 08/14/18 10:50; Start 08/14/18 at 09:00 Tramadol HCl (Ultram) 50 mg PRN Q6HRS PRN PO PAIN Last administered on 10:48; Start 08/13/18 at 20:15 Vitamin D (Vitamin D3) 2,000 unit BIDAFTMEAL PO Last administered on 08/14/18 17:03; Start 08/14/18 at 09:00 Non-Formulary Medication (Fluticasone Propionate (Flovent 220MCG Hfa)) 2 inh BID INH ; Start 08/13/18 at 21:00; Status UNV Ondansetron HCl (Zofran Odt) 4 mg PRN Q8HRS PRN PO NAUSEA/VOMITING; Start 08/13 at 20:45 Pantoprazole Sodium (Protonix) 40 mg PRN DAILY PRN PO HEARTBURN / GAS; Start 08/14/18 at 07:30 Budesonide (Pulmicort) 0.5 mg RTBID NEB Last administered on 08/14/18at 19:38; Start 08/14/18 at 08:00 Levofloxacin/ Dextrose 100 ml @ 100 mls/hr Q24H IV ; Start 08/13/18 at 21:15; Status UNV Metoclopramide HCl (Reglan Vial) 5 mg QIDACHS IV Last administered on at 20:03; Start 08/13/18 at 21:30 Albuterol Sulfate (Ventolin Neb Soln) 2.5 mg PRN Q4HRS PRN NEB SHORTNESS OF BREATH Last administered on 08/15/18at 01:28; Start 08/13/18 at 23:00 Furosemide (Lasix) 40 mg 1X ONCE IVP Last administered on 08/14/18at 08:40; Start 08/14/18 at 07:45; Stop 08/14/18 at 07:46; Status DC Methylprednisolone Sodium Succinate (SOLU-Medrol 125MG VIAL) 80 mg 1X ONCE IV Last administered on 08/14/18at 08:40; Start 08/14/18 at 07:45; Stop 08/14/18 at 07:46; Status DC Methylprednisolone Sodium Succinate (SOLU-Medrol 125MG VIAL) 60 mg Q8HRS IV ; Start 08/14/18 at 14:00; Stop 08/14/18 at 14:00; Status DC Methylprednisolone Sodium Succinate (SOLU-Medrol 125MG VIAL) 60 mg DAILY IV ; Start 08/15/18 at 09:00 Trazodone HCl (Desyrel) 50 mg PRN QHS PRN PO INSOMNIA Last administered on 08/14at 20:03; Start 08/14/18 at 10:45 Buspirone HCl (Buspar) 10 mg PRN TID PRN PO ANXIETY, 1ST CHOICE Last administered on 08/14/18at 10:49; Start 08/14/18 at 10:45 Lorazepam (Ativan) 0.5 mg PRN Q8HRS PRN PO ANXIETY / AGITATION, 2ND CHOIC Last administered on 08/15/18at 03:00; Start 08/14/18 at 10:45 Tramadol HCl (Ultram) 100 mg PRN Q6HRS PRN PO PAIN Last administered on at 03:05; Start 08/14/18 at 11:00 Tramadol HCl (Ultram) 50 mg 1X ONCE PO Last administered on 08/14/18at 11:30; Start 08/14/18 at 11:30; Stop 08/14/18 at 11:31; Status DC Active Scripts Active Levaquin (Levofloxacin) 500 Mg Tablet 1 Tab PO DAILY Levofloxacin 250 Mg Tablet 250 Mg PO DAILY06 Furosemide 40 Mg Tablet 40 Mg PO DAILY 30 Days Zofran (Ondansetron Hcl) 4 Mg Tablet 1 Tab PO Q8HRS PRN Reported Tramadol Hcl 50 Mg Tablet 1 Tab PO PRN Q6HRS PRN Flovent 220MCG Hfa (Fluticasone Propionate) 12 Gm Aer.w.adap 2 Inh INH BID Protonix (Pantoprazole Sodium) 20 Mg Tablet.dr 40 Mg PO PRN DAILY PRN Duoneb 0.5-3(2.5) Mg/3 Ml (Albuterol/Ipratropium) 3 Ml Ampul.neb 3 Ml NEB QID Atorvastatin Calcium 40 Mg Tablet 40 Mg PO HS Lisinopril 20 Mg Tablet 20 Mg PO DAILY Carvedilol 6.25 Mg Tablet 6.25 Mg PO BIDWMEALS Vitamin D (Cholecalciferol (Vitamin D3)) 2,000 Unit Capsule 2,000 Unit PO BIDAFTMEAL Aspirin Ec (Aspirin) 325 Mg Tablet. 325 Mg PO DAILY Clopidogrel (Clopidogrel Bisulfate) 75 Mg Tablet 75 Mg PO DAILY Vitals/I & O Vital Sign - Last 24 Hours 08/14/18 08/14/18 08/14/18 08/14/18 07:30 08:00 10:47 10:48 Temp 97.9 97.9 97.9 97.9 Pulse 104 94 Resp 30 22 18 B/P (MAP) 146/91 (109) 130/68 (88) Pulse Ox 96 97 O2 Delivery Nasal Cannula Nasal Cannula Nasal Cannula Room Air O2 Flow Rate 2.0 2.0 2.0 08/14/18 08/14/18 08/14/18 08/14/18 10:50 10:50 11:30 12:26 Pulse 94 94 Resp 18 18 B/P (MAP) 130/68 130/68 Pulse Ox 97 O2 Delivery Room Air Nasal Cannula O2 Flow Rate 2.0 08/14/18 08/14/18 08/14/18 08/14/18 12:26 13:13 15:00 16:30 Temp 97.6 97.6 Pulse 80 Resp 18 20 B/P (MAP) 134/72 (92) Pulse Ox 97 94 O2 Delivery Nasal Cannula Nasal Cannula Nasal Cannula Nasal Cannula O2 Flow Rate 2.0 2.0 2.0 2.0 08/14/18 08/14/18 08/14/18 08/14/18 17:03 19:30 19:39 19:39 Temp 98.6 98.6 Pulse 80 89 Resp 18 B/P (MAP) 134/72 141/76 (97) Pulse Ox 96 97 97 O2 Delivery Nasal Cannula Nasal Cannula Nasal Cannula O2 Flow Rate 2.0 2.0 2.0 08/14/18 08/14/18 08/15/18 08/15/18 20:00 23:16 01:27 03:00 Temp 98.0 98.0 98.0 98.0 Pulse 94 95 Resp 18 21 B/P (MAP) 122/71 (88) 119/72 (88) Pulse Ox 96 97 92 O2 Delivery Nasal Cannula Nasal Cannula Nasal Cannula Room Air O2 Flow Rate 2.0 2.0 2.0 08/15/18 03:05 Resp 22 O2 Delivery Nasal Cannula O2 Flow Rate 2.0 Intake and Output 08/14/18 08/14/18 08/15/18 15:00 23:00 07:00 Intake Total 300 ml 690 ml 120 ml Balance 300 ml 690 ml 120 ml ARABELLA HEALY MD Aug 15, 2018 07:24
[2018-08-15] MEDS: BUDESONIDE 0.5 MG/2 ML NEBU. NEB SCH ×2 (08:08→20:27)
[2018-08-15] MEDS: IPRATRPIUM/ALBUTEROL 0.5/2.5MG 3 ML NEBU. NEB SCH ×4 (08:08→20:27)
[2018-08-15] MEDS: METOCLOPRAMIDE HCL 10 MG/2 ML VIAL. IV SCH ×4 (09:13→22:00)
[2018-08-15] MEDS: methylPREDNISolone SOD SUCC PF 125 MG/2 ML VIAL. IV SCH (09:13)
[2018-08-15] MEDS: busPIRone 10 MG TABLET. PO PRN (09:13)
[2018-08-15] MEDS: FUROSEMIDE 40 MG TABLET. PO SCH (09:13)
[2018-08-15] MEDS: LACTOBACILLUS RHAMNOSUS GG 1 CAPSULE. PO SCH ×2 (09:14→21:59)
[2018-08-15] MEDS: CHOLECALCIFEROL (VITAMIN D3) 1,000 UNIT TABLET PO SCH ×2 (09:14→17:12)
[2018-08-15] MEDS: LISINOPRIL 20 MG TABLET PO SCH (09:14)
[2018-08-15] MEDS: CLOPIDOGREL BISULFATE 75 MG TABLET PO SCH (09:14)
[2018-08-15] MEDS: CARVEDILOL 6.25 MG TABLET. PO SCH ×2 (09:14→17:12)
[2018-08-15] MEDS: ASPIRIN ENTERIC COATED 325 MG TABLET.DR. PO SCH (09:14)
[2018-08-15 11:00] VITALS: BP 123/68
[2018-08-15] MEDS: VANCOMYCIN PER PHARMACY MC PRN ×2 (11:32→21:02)
--- NOTE | 2018-08-15 12:21 | PDOC ---
G I PROGRESS NOTE Reason for Follow-up Oropharyngeal dysphagia/gastroparesis Subjective Tolerating feedings Physical Exam Lungs decreased BS CV S1 S2 ABd +BS, soft, G tube in place Review of Relevant I have reviewed the following items loren (where applicable) has been applied. Labs Laboratory Tests Test 08/13/18 16:00 08/13/18 16:15 08/14/18 04:00 White Blood Count 13.0 x10^3/uL (4.0-11.0) 8.5 x10^3/uL (4.0-11.0) Red Blood Count 4.46 x10^6/uL (3.50-5.40) 4.45 x10^6/uL (3.50-5.40) Hemoglobin 13.5 g/dL (12.0-15.5) 13.2 g/dL (12.0-15.5) Hematocrit 40.0 % (36.0-47.0) 39.7 % (36.0-47.0) Mean Corpuscular Volume 90 fL (79-100) 89 fL (79-100) Mean Corpuscular Hemoglobin 30 pg (25-35) 30 pg (25-35) Mean Corpuscular Hemoglobin Concent 34 g/dL (31-37) 33 g/dL (31-37) Red Cell Distribution Width 14.1 % (11.5-14.5) 13.6 % (11.5-14.5) Platelet Count 277 x10^3/uL (140-400) 274 x10^3/uL (140-400) Neutrophils (%) (Auto) 45 % (31-73) 87 % (31-73) Lymphocytes (%) (Auto) 17 % (24-48) 9 % (24-48) Monocytes (%) (Auto) 5 % (0-9) 3 % (0-9) Eosinophils (%) (Auto) 33 % (0-3) 1 % (0-3) Basophils (%) (Auto) 1 % (0-3) 0 % (0-3) Neutrophils # (Auto) 5.9 x10^3uL (1.8-7.7) 7.4 x10^3uL (1.8-7.7) Lymphocytes # (Auto) 2.2 x10^3/uL (1.0-4.8) 0.8 x10^3/uL (1.0-4.8) Monocytes # (Auto) 0.6 x10^3/uL (0.0-1.1) 0.2 x10^3/uL (0.0-1.1) Eosinophils # (Auto) 4.3 x10^3/uL (0.0-0.7) 0.1 x10^3/uL (0.0-0.7) Basophils # (Auto) 0.1 x10^3/uL (0.0-0.2) 0.0 x10^3/uL (0.0-0.2) Segmented Neutrophils % 55 % (35-66) Lymphocytes % 14 % (24-48) Monocytes % 5 % (0-10) Eosinophils % 26 % (0-5) Toxic Granulation Slight Toxic Vacuolation Slight Platelet Estimate Adequate (ADEQUATE) Prothrombin Time 12.8 SEC (11.7-14.0) Prothromb Time International Ratio 1.0 (0.8-1.1) Sodium Level 141 mmol/L (136-145) 135 mmol/L (136-145) Potassium Level 4.5 mmol/L (3.5-5.1) 4.4 mmol/L (3.5-5.1) Chloride Level 102 mmol/L (98-107) 98 mmol/L (98-107) Carbon Dioxide Level 28 mmol/L (21-32) 28 mmol/L (21-32) Anion Gap 11 (6-14) 9 (6-14) Blood Urea Nitrogen 10 mg/dL (7-20) 16 mg/dL (7-20) Creatinine 0.8 mg/dL (0.6-1.0) 0.8 mg/dL (0.6-1.0) Estimated GFR (Cockcroft-Gault) 84.8 84.8 BUN/Creatinine Ratio 13 (6-20) 20 (6-20) Glucose Level 83 mg/dL (70-99) 165 mg/dL (70-99) Lactic Acid Level 1.4 mmol/L (0.4-2.0) Calcium Level 9.8 mg/dL (8.5-10.1) 9.9 mg/dL (8.5-10.1) Total Bilirubin 0.3 mg/dL (0.2-1.0) 0.3 mg/dL (0.2-1.0) Aspartate Amino Transf (AST/SGOT) 30 U/L (15-37) 23 U/L (15-37) Alanine Aminotransferase (ALT/SGPT) 21 U/L (14-59) 21 U/L (14-59) Alkaline Phosphatase 131 U/L (46-116) 123 U/L (46-116) Troponin I Quantitative < 0.017 ng/mL (0.000-0.055) BK-Oim-T-Type Natriuretic Peptide 6822 pg/mL (0-124) Total Protein 7.3 g/dL (6.4-8.2) 7.3 g/dL (6.4-8.2) Albumin 2.8 g/dL (3.4-5.0) 2.7 g/dL (3.4-5.0) Albumin/Globulin Ratio 0.6 (1.0-1.7) 0.6 (1.0-1.7) O2 Saturation 96 % (92-99) Arterial Blood pH 7.39 (7.35-7.45) Arterial Blood pCO2 at Patient Temp 46 mmHg (35-46) Arterial Blood pO2 at Patient Temp 89 mmHg (65-108) Arterial Blood HCO3 27 mmol/L (21-28) Arterial Blood Base Excess 2 mmol/L (-3-3) FiO2 35 Microbiology 08/13/18 Blood Culture - Preliminary, Resulted NO GROWTH AFTER 1 DAY Medications Current Medications Albuterol Sulfate (Ventolin Neb Soln) 10 mg 1X ONCE CONT NEB Last administered on 08/13/18at 16:43; Start 08/13/18 at 16:15; Stop 08/13/18 at 16:16 ; Status DC Vancomycin HCl (Vanco Per Pharmacy) 1 each PRN DAILY PRN MC SEE COMMENTS; Start 08/13/18 at 16:45; Stop 08/13/18 at 18:18; Status DC Levofloxacin/ Dextrose (Levaquin Per Pharmacy) 1 each PRN DAILY PRN MC SEE COMMENTS; Start 08/13/18 at 16:45; Stop 08/13/18 at 18:18; Status DC Furosemide (Lasix) 20 mg 1X ONCE IVP Last administered on 08/13/18at 17:10; Start 08/13/18 at 16:45; Stop 08/13/18 at 16:46; Status DC Methylprednisolone Sodium Succinate (SOLU-Medrol 125MG VIAL) 125 mg 1X ONCE IV Last administered on 08/13/18at 17:09; Start 08/13/18 at 16:45; Stop 08/13/18 at 16:46; Status DC Vancomycin HCl 1.25 gm/Sodium Chloride 250 ml @ 166.667 mls/hr 1X ONCE IV Last administered on 08/13/18at 19:34; Start 08/13/18 at 17:00; Stop 08/13/18 at 18:39; Status DC Levofloxacin/ Dextrose 100 ml @ 100 mls/hr 1X ONCE IV Last administered on at 17:12; Start 08/13/18 at 18:00; Stop 08/13/18 at 18:59; Status DC Albuterol/ Ipratropium (Duoneb) 3 ml RTQID NEB Last administered on 08/13/18at 20:26; Start 08/13/18 at 18:00; Stop 08/13/18 at 20:37; Status DC Vancomycin HCl (Vanco Per Pharmacy) 1 each PRN DAILY PRN MC SEE COMMENTS Last administered on 08/15/18at 11:32; Start 08/13/18 at 18:30 Levofloxacin/ Dextrose (Levaquin Per Pharmacy) 1 each PRN DAILY PRN MC SEE COMMENTS; Start 08/13/18 at 18:30 Levofloxacin/ Dextrose 50 ml @ 50 mls/hr Q24H IV Last administered on at 17:02; Start 08/14/18 at 17:00 Vancomycin HCl 750 mg/Sodium Chloride 250 ml @ 250 mls/hr Q24H IV Last administered on 08/14/18at 20:02; Start 08/14/18 at 19:30 Vancomycin HCl (Vancomycin Trough Level) 1 each 1X ONCE MC ; Start 08/15/18 at 19:00; Stop 08/15/18 at 19:01 Lactobacillus Rhamnosus (Culturelle) 1 cap BID PO Last administered on at 09:14; Start 08/13/18 at 21:00 Aspirin (Ecotrin) 325 mg DAILY PO Last administered on 08/15/18at 09:14; Start 08/14/18 at 09:00 Atorvastatin Calcium (Lipitor) 40 mg HS PO Last administered on 08/14/18 20:03 ; Start 08/13/18 at 21:00 Carvedilol (Coreg) 6.25 mg BIDWMEALS PO Last administered on 08/15/18 09:14; Start 08/13/18 at 21:00 Clopidogrel Bisulfate (Plavix) 75 mg DAILY PO Last administered on 08/15/18 09 :14; Start 08/14/18 at 09:00 Furosemide (Lasix) 40 mg DAILY PO Last administered on 08/15/18 09:13; Start 08/14/18 at 09:00 Albuterol/ Ipratropium (Duoneb) 3 ml RTQID NEB Last administered on 08/15/18 12:06; Start 08/14/18 at 08:00 Lisinopril (Prinivil) 20 mg DAILY PO Last administered on 08/15/18 09:14; Start 08/14/18 at 09:00 Tramadol HCl (Ultram) 50 mg PRN Q6HRS PRN PO MILD - MODERATE PAIN Last administered on 08/14/18 10:48; Start 08/13/18 at 20:15 Vitamin D (Vitamin D3) 2,000 unit BIDAFTMEAL PO Last administered on 08/15/18 09:14; Start 08/14/18 at 09:00 Non-Formulary Medication (Fluticasone Propionate (Flovent 220MCG Hfa)) 2 inh BID INH ; Start 08/13/18 at 21:00; Status UNV Ondansetron HCl (Zofran Odt) 4 mg PRN Q8HRS PRN PO NAUSEA/VOMITING; Start 08/13 at 20:45 Pantoprazole Sodium (Protonix) 40 mg PRN DAILY PRN PO HEARTBURN / GAS; Start 08/14/18 at 07:30 Budesonide (Pulmicort) 0.5 mg RTBID NEB Last administered on 08/15/18 08:08; Start 08/14/18 at 08:00 Levofloxacin/ Dextrose 100 ml @ 100 mls/hr Q24H IV ; Start 08/13/18 at 21:15; Status UNV Metoclopramide HCl (Reglan Vial) 5 mg QIDACHS IV Last administered on 11:52; Start 08/13/18 at 21:30 Albuterol Sulfate (Ventolin Neb Soln) 2.5 mg PRN Q4HRS PRN NEB SHORTNESS OF BREATH Last administered on 08/15/18at 01:28; Start 08/13/18 at 23:00 Furosemide (Lasix) 40 mg 1X ONCE IVP Last administered on 08/14/18 08:40; Start 08/14/18 at 07:45; Stop 08/14/18 at 07:46; Status DC Methylprednisolone Sodium Succinate (SOLU-Medrol 125MG VIAL) 80 mg 1X ONCE IV Last administered on 08/14/18 08:40; Start 08/14/18 at 07:45; Stop 08/14/18 at 07:46; Status DC Methylprednisolone Sodium Succinate (SOLU-Medrol 125MG VIAL) 60 mg Q8HRS IV ; Start 08/14/18 at 14:00; Stop 08/14/18 at 14:00; Status DC Methylprednisolone Sodium Succinate (SOLU-Medrol 125MG VIAL) 60 mg DAILY IV Last administered on 08/15/18 09:13; Start 08/15/18 at 09:00 Trazodone HCl (Desyrel) 50 mg PRN QHS PRN PO INSOMNIA Last administered on 08/14 20:03; Start 08/14/18 at 10:45 Buspirone HCl (Buspar) 10 mg PRN TID PRN PO ANXIETY, 1ST CHOICE Last administered on 08/15/18 09:13; Start 08/14/18 at 10:45 Lorazepam (Ativan) 0.5 mg PRN Q8HRS PRN PO ANXIETY / AGITATION, 2ND CHOIC Last administered on 08/15/18at 11:55; Start 08/14/18 at 10:45 Tramadol HCl (Ultram) 100 mg PRN Q6HRS PRN PO SEVERE PAIN Last administered on 08/15/18 09:13; Start 08/14/18 at 11:00 Tramadol HCl (Ultram) 50 mg 1X ONCE PO Last administered on 08/14/18 11:30; Start 08/14/18 at 11:30; Stop 08/14/18 at 11:31; Status DC Active Scripts Active Levaquin (Levofloxacin) 500 Mg Tablet 1 Tab PO DAILY Levofloxacin 250 Mg Tablet 250 Mg PO DAILY06 Furosemide 40 Mg Tablet 40 Mg PO DAILY 30 Days Zofran (Ondansetron Hcl) 4 Mg Tablet 1 Tab PO Q8HRS PRN Reported Tramadol Hcl 50 Mg Tablet 1 Tab PO PRN Q6HRS PRN Flovent 220MCG Hfa (Fluticasone Propionate) 12 Gm Aer.w.adap 2 Inh INH BID Protonix (Pantoprazole Sodium) 20 Mg Tablet.dr 40 Mg PO PRN DAILY PRN Duoneb 0.5-3(2.5) Mg/3 Ml (Albuterol/Ipratropium) 3 Ml Ampul.neb 3 Ml NEB QID Atorvastatin Calcium 40 Mg Tablet 40 Mg PO HS Lisinopril 20 Mg Tablet 20 Mg PO DAILY Carvedilol 6.25 Mg Tablet 6.25 Mg PO BIDWMEALS Vitamin D (Cholecalciferol (Vitamin D3)) 2,000 Unit Capsule 2,000 Unit PO BIDAFTMEAL Aspirin Ec (Aspirin) 325 Mg Tablet.dr 325 Mg PO DAILY Clopidogrel (Clopidogrel Bisulfate) 75 Mg Tablet 75 Mg PO DAILY Vitals/I & O Vital Sign - Last 24 Hours 08/14/18 08/14/18 08/14/18 08/14/18 12:26 12:26 13:13 15:00 Temp 97.6 97.6 Pulse 80 Resp 18 18 20 B/P (MAP) 134/72 (92) Pulse Ox 97 97 94 O2 Delivery Nasal Cannula Nasal Cannula Nasal Cannula Nasal Cannula O2 Flow Rate 2.0 2.0 2.0 2.0 08/14/18 08/14/18 08/14/18 08/14/18 16:30 17:03 19:30 19:39 Temp 98.6 98.6 Pulse 80 89 Resp 18 B/P (MAP) 134/72 141/76 (97) Pulse Ox 96 97 O2 Delivery Nasal Cannula Nasal Cannula Nasal Cannula O2 Flow Rate 2.0 2.0 2.0 08/14/18 08/14/18 08/14/18 08/15/18 19:39 20:00 23:16 01:27 Temp 98.0 98.0 Pulse 94 Resp 18 B/P (MAP) 122/71 (88) Pulse Ox 97 96 97 O2 Delivery Nasal Cannula Nasal Cannula Nasal Cannula Nasal Cannula O2 Flow Rate 2.0 2.0 2.0 2.0 08/15/18 08/15/18 08/15/18 08/15/18 03:00 03:05 07:20 08:00 Temp 98.0 99.1 98.0 99.1 Pulse 95 89 Resp 21 22 16 B/P (MAP) 119/72 (88) 112/59 (76) Pulse Ox 92 94 O2 Delivery Room Air Nasal Cannula Room Air Nasal Cannula O2 Flow Rate 2.0 2.0 08/15/18 08/15/18 08/15/18 08/15/18 08:10 08:18 09:13 09:14 Pulse 89 Resp 20 B/P (MAP) 112/59 Pulse Ox 98 98 O2 Delivery Nasal Cannula Nasal Cannula O2 Flow Rate 2.0 2.0 08/15/18 08/15/18 08/15/18 08/15/18 09:14 10:15 11:00 12:14 Temp 98.8 98.8 Pulse 89 89 Resp 18 18 B/P (MAP) 112/59 123/68 (86) Pulse Ox 98 91 O2 Delivery Nasal Cannula Room Air Nasal Cannula O2 Flow Rate 2.0 2.0 Intake and Output 08/14/18 08/14/18 08/15/18 15:00 23:00 07:00 Intake Total 300 ml 690 ml 120 ml Balance 300 ml 690 ml 120 ml Problem List Problems Medical Problems: (1) CHF (congestive heart failure) Status: Acute Assessment Gastroparesis- with G tube, tolerating feedings, CPM ERIN DAVIDSON MD Aug 15, 2018 12:21
--- NOTE | 2018-08-15 13:11 | PDOC ---
PULMONARY PROGRESS NOTES Subjective feels better Vitals Vital Signs Date Time Temp Pulse Resp B/P (MAP) Pulse Ox O2 Delivery O2 Flow Rate FiO2 08/15/18 12:14 Nasal Cannula 2.0 08/15/18 11:00 98.8 89 18 123/68 (86) 91 98.8 ROS: No Chest Pain, No Increase Cough General: Alert, No acute distress HEENT: Other Lungs: Clear Cardiovascular: S1 Abdomen: Soft, Non-tender Neuro Exam: Alert Extremities: No Edema Labs Laboratory Tests Test 08/13/18 16:00 08/13/18 16:15 08/14/18 04:00 White Blood Count 13.0 x10^3/uL (4.0-11.0) 8.5 x10^3/uL (4.0-11.0) Red Blood Count 4.46 x10^6/uL (3.50-5.40) 4.45 x10^6/uL (3.50-5.40) Hemoglobin 13.5 g/dL (12.0-15.5) 13.2 g/dL (12.0-15.5) Hematocrit 40.0 % (36.0-47.0) 39.7 % (36.0-47.0) Mean Corpuscular Volume 90 fL (79-100) 89 fL (79-100) Mean Corpuscular Hemoglobin 30 pg (25-35) 30 pg (25-35) Mean Corpuscular Hemoglobin Concent 34 g/dL (31-37) 33 g/dL (31-37) Red Cell Distribution Width 14.1 % (11.5-14.5) 13.6 % (11.5-14.5) Platelet Count 277 x10^3/uL (140-400) 274 x10^3/uL (140-400) Neutrophils (%) (Auto) 45 % (31-73) 87 % (31-73) Lymphocytes (%) (Auto) 17 % (24-48) 9 % (24-48) Monocytes (%) (Auto) 5 % (0-9) 3 % (0-9) Eosinophils (%) (Auto) 33 % (0-3) 1 % (0-3) Basophils (%) (Auto) 1 % (0-3) 0 % (0-3) Neutrophils # (Auto) 5.9 x10^3uL (1.8-7.7) 7.4 x10^3uL (1.8-7.7) Lymphocytes # (Auto) 2.2 x10^3/uL (1.0-4.8) 0.8 x10^3/uL (1.0-4.8) Monocytes # (Auto) 0.6 x10^3/uL (0.0-1.1) 0.2 x10^3/uL (0.0-1.1) Eosinophils # (Auto) 4.3 x10^3/uL (0.0-0.7) 0.1 x10^3/uL (0.0-0.7) Basophils # (Auto) 0.1 x10^3/uL (0.0-0.2) 0.0 x10^3/uL (0.0-0.2) Segmented Neutrophils % 55 % (35-66) Lymphocytes % 14 % (24-48) Monocytes % 5 % (0-10) Eosinophils % 26 % (0-5) Toxic Granulation Slight Toxic Vacuolation Slight Platelet Estimate Adequate (ADEQUATE) Prothrombin Time 12.8 SEC (11.7-14.0) Prothromb Time International Ratio 1.0 (0.8-1.1) Sodium Level 141 mmol/L (136-145) 135 mmol/L (136-145) Potassium Level 4.5 mmol/L (3.5-5.1) 4.4 mmol/L (3.5-5.1) Chloride Level 102 mmol/L (98-107) 98 mmol/L (98-107) Carbon Dioxide Level 28 mmol/L (21-32) 28 mmol/L (21-32) Anion Gap 11 (6-14) 9 (6-14) Blood Urea Nitrogen 10 mg/dL (7-20) 16 mg/dL (7-20) Creatinine 0.8 mg/dL (0.6-1.0) 0.8 mg/dL (0.6-1.0) Estimated GFR (Cockcroft-Gault) 84.8 84.8 BUN/Creatinine Ratio 13 (6-20) 20 (6-20) Glucose Level 83 mg/dL (70-99) 165 mg/dL (70-99) Lactic Acid Level 1.4 mmol/L (0.4-2.0) Calcium Level 9.8 mg/dL (8.5-10.1) 9.9 mg/dL (8.5-10.1) Total Bilirubin 0.3 mg/dL (0.2-1.0) 0.3 mg/dL (0.2-1.0) Aspartate Amino Transf (AST/SGOT) 30 U/L (15-37) 23 U/L (15-37) Alanine Aminotransferase (ALT/SGPT) 21 U/L (14-59) 21 U/L (14-59) Alkaline Phosphatase 131 U/L (46-116) 123 U/L (46-116) Troponin I Quantitative < 0.017 ng/mL (0.000-0.055) SX-Hep-L-Type Natriuretic Peptide 6822 pg/mL (0-124) Total Protein 7.3 g/dL (6.4-8.2) 7.3 g/dL (6.4-8.2) Albumin 2.8 g/dL (3.4-5.0) 2.7 g/dL (3.4-5.0) Albumin/Globulin Ratio 0.6 (1.0-1.7) 0.6 (1.0-1.7) O2 Saturation 96 % (92-99) Arterial Blood pH 7.39 (7.35-7.45) Arterial Blood pCO2 at Patient Temp 46 mmHg (35-46) Arterial Blood pO2 at Patient Temp 89 mmHg (65-108) Arterial Blood HCO3 27 mmol/L (21-28) Arterial Blood Base Excess 2 mmol/L (-3-3) FiO2 35 Medications Active Scripts Medications Dose Route/Sig Max Daily Dose Days Date Category Tramadol Hcl 50 Mg Tablet 1 Tab PO PRN Q6HRS PRN 08/13/18 Reported Flovent 220MCG Hfa (Fluticasone Propionate) 12 Gm Aer.w.adap 2 Inh INH BID 08/13/18 Reported Levaquin (Levofloxacin) 500 Mg Tablet 1 Tab PO DAILY 08/12/18 Rx Levofloxacin 250 Mg Tablet 250 Mg PO DAILY06 08/09/18 Rx Protonix (Pantoprazole Sodium) 20 Mg Tablet.dr 40 Mg PO PRN DAILY PRN 06/22/18 Reported Furosemide 40 Mg Tablet 40 Mg PO DAILY 30 05/23/18 Rx Duoneb 0.5-3(2.5) Mg/3 Ml (Albuterol/Ipratropium) 3 Ml Ampul.neb 3 Ml NEB QID 04/17/18 Reported Zofran (Ondansetron Hcl) 4 Mg Tablet 1 Tab PO Q8HRS PRN 05/19/16 Rx Atorvastatin Calcium 40 Mg Tablet 40 Mg PO HS 09/24/15 Reported Lisinopril 20 Mg Tablet 20 Mg PO DAILY 09/24/15 Reported Carvedilol 6.25 Mg Tablet 6.25 Mg PO BIDWMEALS 09/24/15 Reported Vitamin D (Cholecalciferol (Vitamin D3)) 2,000 Unit Capsule 2,000 Unit PO BIDAFTMEAL 01/07/15 Reported Aspirin Ec (Aspirin) 325 Mg Tablet.dr 325 Mg PO DAILY 01/07/15 Reported Clopidogrel (Clopidogrel Bisulfate) 75 Mg Tablet 75 Mg PO DAILY 01/07/15 Reported Impression . 1. Dyspnea with recurrent respiratory failure secondary to combination of acute exacerbation of chronic obstructive pulmonary disease and kmmek-dy-esooswk systolic heart failure. 2. Abnormal chest x-ray with prominent interstitial markings, suggesting mild interstitial edema. 3. Severe cardiomyopathy with an ejection fraction of 10% to 15%, status post defibrillator. 4. History of progressive right upper lobe infiltrate based on recent CT chest, status post bronchoscopy during recent previous admission, with no evidence of any bacterial growth. Yeast was isolated, which was a contaminant. Plan . 1. Continue with present oxygen. 2. DuoNebs along with Pulmicort nebulizers. 3. IV steroids with taper 4. Diuresis. 5. f/u cxr in few days 6. Continue empiric antibiotics. 7. Repeat CT chest in 4-6 weeks. 8. Discussed with JEFF MARTINS MD Aug 15, 2018 13:11
[2018-08-15 15:00] VITALS: BP 110/49
[2018-08-15 19:00] VITALS: BP 128/63
[2018-08-15 19:25] LABS: VANC TR 8.6 mcg/mL (10.0-20.0)
[2018-08-15] MEDS: VANCOMYCIN 750 MG in IV NORMAL SALINE 250ML 250 ML IV SCH (19:46)
[2018-08-15] MEDS: ATORVASTATIN CALCIUM 40 MG TABLET. PO SCH (21:59)
[2018-08-15 23:00] VITALS: BP 159/77
[2018-08-16 03:00] VITALS: BP 118/66
[2018-08-16] MEDS: traMADol 50 MG TABLET PO PRN ×3 (04:20→20:49)
[2018-08-16] MEDS: ALBUTEROL SULFATE 2.5 MG/3 ML NEBU. NEB PRN (05:03)
[2018-08-16 07:00] VITALS: BP 135/72
[2018-08-16] MEDS: VANCOMYCIN PER PHARMACY MC PRN ×2 (07:12→13:49)
[2018-08-16] MEDS: IPRATRPIUM/ALBUTEROL 0.5/2.5MG 3 ML NEBU. NEB SCH ×4 (07:26→18:18)
[2018-08-16] MEDS: BUDESONIDE 0.5 MG/2 ML NEBU. NEB SCH ×2 (07:26→18:18)
[2018-08-16] MEDS: METOCLOPRAMIDE HCL 10 MG/2 ML VIAL. IV SCH ×4 (08:30→20:48)
[2018-08-16] MEDS: VANCOMYCIN 750 MG in IV NORMAL SALINE 250ML 250 ML IV SCH ×2 (08:30→20:47)
[2018-08-16] MEDS: methylPREDNISolone SOD SUCC PF 125 MG/2 ML VIAL. IV SCH (08:31)
[2018-08-16] MEDS ORDERED: ACETAMINOPHEN 325 MG TABLET. PO PRN (09:30)
[2018-08-16] MEDS ORDERED: MORPHINE SULFATE 2 MG/ML VIAL. IV PRN (09:30)
[2018-08-16] MEDS ORDERED: ONDANSETRON PF 4 MG/2 ML VIAL. IV PRN (09:30)
[2018-08-16] MEDS ORDERED: DOCUSATE SODIUM 100 MG CAPSULE. PO PRN (09:30)
--- NOTE | 2018-08-16 09:56 | PDOC ---
PULMONARY PROGRESS NOTES Subjective feels better Vitals Vital Signs Date Time Temp Pulse Resp B/P (MAP) Pulse Ox O2 Delivery O2 Flow Rate FiO2 08/16/18 09:32 Nasal Cannula 2.0 08/16/18 07:25 97 08/16/18 07:00 98.5 74 18 135/72 (93) 98.5 ROS: No Chest Pain, No Increase Cough General: Alert, No acute distress HEENT: Other Lungs: Clear Cardiovascular: S1 Abdomen: Soft, Non-tender Neuro Exam: Alert Extremities: No Edema Labs Laboratory Tests Test 08/15/18 19:00 Vancomycin Level Trough 8.6 mcg/mL (10.0-20.0) Vancomycin Last Dose Date 08/14/18 Vancomycin Last Dose Time 193 Laboratory Tests Test 08/15/18 19:00 Vancomycin Level Trough 8.6 mcg/mL (10.0-20.0) Vancomycin Last Dose Date 08/14/18 Vancomycin Last Dose Time 193 Medications Active Scripts Medications Dose Route/Sig Max Daily Dose Days Date Category Tramadol Hcl 50 Mg Tablet 1 Tab PO PRN Q6HRS PRN 08/13/18 Reported Flovent 220MCG Hfa (Fluticasone Propionate) 12 Gm Aer.w.adap 2 Inh INH BID 08/13/18 Reported Levaquin (Levofloxacin) 500 Mg Tablet 1 Tab PO DAILY 08/12/18 Rx Levofloxacin 250 Mg Tablet 250 Mg PO DAILY06 08/09/18 Rx Protonix (Pantoprazole Sodium) 20 Mg Tablet.dr 40 Mg PO PRN DAILY PRN 06/22/18 Reported Furosemide 40 Mg Tablet 40 Mg PO DAILY 30 05/23/18 Rx Duoneb 0.5-3(2.5) Mg/3 Ml (Albuterol/Ipratropium) 3 Ml Ampul.neb 3 Ml NEB QID 04/17/18 Reported Zofran (Ondansetron Hcl) 4 Mg Tablet 1 Tab PO Q8HRS PRN 05/19/16 Rx Atorvastatin Calcium 40 Mg Tablet 40 Mg PO HS 09/24/15 Reported Lisinopril 20 Mg Tablet 20 Mg PO DAILY 09/24/15 Reported Carvedilol 6.25 Mg Tablet 6.25 Mg PO BIDWMEALS 09/24/15 Reported Vitamin D (Cholecalciferol (Vitamin D3)) 2,000 Unit Capsule 2,000 Unit PO BIDAFTMEAL 01/07/15 Reported Aspirin Ec (Aspirin) 325 Mg Tablet.dr 325 Mg PO DAILY 01/07/15 Reported Clopidogrel (Clopidogrel Bisulfate) 75 Mg Tablet 75 Mg PO DAILY 01/07/15 Reported Impression . 1. Dyspnea with recurrent respiratory failure secondary to combination of acute exacerbation of chronic obstructive pulmonary disease and oiojf-ii-jroefoo systolic heart failure. 2. Abnormal chest x-ray with prominent interstitial markings, suggesting mild interstitial edema. 3. Severe cardiomyopathy with an ejection fraction of 10% to 15%, status post defibrillator. 4. History of progressive right upper lobe infiltrate based on recent CT chest, status post bronchoscopy during recent previous admission, with no evidence of any bacterial growth. Yeast was isolated, which was a contaminant. Plan . 1. Continue with present oxygen. 2. DuoNebs along with Pulmicort nebulizers. 3. IV steroids with taper 4. Diuresis. 5. f/u cxr in few days 6. Continue empiric antibiotics. 7. Repeat CT chest in 4-6 weeks. 8. Discussed with REGGIE CLAIRE MD Aug 16, 2018 09:56
[2018-08-16 10:57] VITALS: BP 137/76
--- NOTE | 2018-08-16 12:10 | PDOC ---
Subjective: Subjective: RN called Dr. Fernández and me this morning - PEG is cracked, unable to use. Pt worried about her heart meds - I told the nurse she could try taking pills by mouth. Pt says she "couldn't keep any pills down" this morning. 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 witnessed. Last PO around 5:30 a.m. per pt. Objective: Objective: Has IV Reglan and PO PPI PRN. Vital Signs: Vital Signs Date Time Temp Pulse Resp B/P (MAP) Pulse Ox O2 Delivery O2 Flow Rate FiO2 08/16/18 10:57 98.7 74 18 137/76 (96) 94 Room Air 98.7 08/16/18 09:32 2.0 Labs: Laboratory Tests Test 08/15/18 19:00 Vancomycin Level Trough 8.6 mcg/mL Vancomycin Last Dose Date 08/14/18 Vancomycin Last Dose Time 1930 PE: GEN: NAD LUNGS: no wheezing HEART: RRR ABD: PEG w/ tape NEURO/PSYCH: A & O 3, depressed A/P: H/o abnormal swallowing/vomiting/coughing w/ PEG in place -- PEG malfunction. Offered EGD w/ PEG replacement since she can't use the tube and is concerned about ability to take meds. She initially declined EGD because would prefer bedside replacement, but then told me "whatever's necessary." Will tentatively set up for this afternoon - would also be able to settle the issue of "esophageal thickening" on chest CTs. FARHAN AKINS Aug 16, 2018 12:10
[2018-08-16] MEDS ORDERED: PROPOFOL 20 ML IV ONE (12:46)
[2018-08-16] MEDS: IV RINGERS,LACTATED 1000ML 1,000 ML IV SCH ×2 (12:49→22:45)
--- NOTE | 2018-08-16 13:24 | PDOC4 ---
PROCEDURE Procedure EGD/PEG replacement Indication: failing/leaking g-tube Meds: per anesthesia Findings: E--tertiary contractions/no stricture. G--few erosions, antrum. Old g-tube. D--Normal to second portion. --balloon on old tube (18F) deflated and tube removed. String introduced per stoma; new tube in standard pull fashion. 'Scope reintroduced, confirming good tube placement. Esophageal biopsies from mid-esophagus re: EE? Oli. well. IMP: Successful tube replacement. REC: OK to use tube immediately. Await biopsies. Continue PPI, prokinetic. CARMEN LINARES MD Aug 16, 2018 13:24
[2018-08-16] MEDS: CHOLECALCIFEROL (VITAMIN D3) 1,000 UNIT TABLET PO SCH ×2 (14:19→18:00)
[2018-08-16] MEDS: LORazepam 0.5 MG TABLET PO PRN (14:19)
[2018-08-16] MEDS: FUROSEMIDE 40 MG TABLET. PO SCH (14:19)
[2018-08-16] MEDS: CLOPIDOGREL BISULFATE 75 MG TABLET PO SCH (14:19)
[2018-08-16] MEDS: ASPIRIN ENTERIC COATED 325 MG TABLET.DR. PO SCH (14:20)
[2018-08-16] MEDS: CARVEDILOL 6.25 MG TABLET. PO SCH ×2 (14:20→18:01)
[2018-08-16] MEDS: LACTOBACILLUS RHAMNOSUS GG 1 CAPSULE. PO SCH ×2 (14:20→20:48)
[2018-08-16] MEDS: LISINOPRIL 20 MG TABLET PO SCH (14:21)
--- NOTE | 2018-08-16 14:41 | PDOC ---
PROGRESS NOTES Chief Complaint Chief Complaint SOA. Abnormal CT chest revealing right upper lobe infiltrate compared to the film 06/27 s/p bronch (`08/05/18) - Chronic right upper lobe lesion or infiltrate similar to slightly worse since prior study. Mild increase in interstitial infiltrates, typically in the right lung. Esophageal wall thickening, appears similar. by ct chest 08-11 Indwelling pacer Chronic A.fib Cardiomyopathy, ejection fraction 10%-15%. Undernourished-BMI 15.3/Cachexia Hx bulimia Hypoxic respiratory failure Questionable hx COPD Indwelling PEG sec to SEVERE GASTROPARESIS/dysphagia confirmed by GET hypotension responsive to fluids fell 08/09, right chest wall pain, on lidoderm patch, severe protein-caloric malnutrition QUALIFIED WITH 6 min walk for home o2 plan; fu with pulm, gi will try to fix PEG today cont home meds dvt , gi ppx ivf PTOT empiric abx for now History of Present Illness History of Present Illness Chief complaint of respiratory distress the patient was just here yesterday. She has a history of severe COPD as well as severe CHF with an EF of 10-15% she got more short of breath this afternoon she is on home oxygen daughter does not know why she is so short of breath, felt the oxygen should be helping, but did not have decreased saturations, though does have increased work of breathing Lives alone, was discharged, but home health was not able to show up to her home yesterday and not able to come until Thursday08/17/18. PEG not working Vitals Vitals Vital Signs Date Time Temp Pulse Resp B/P (MAP) Pulse Ox O2 Delivery O2 Flow Rate FiO2 08/16/18 14:21 143/83 08/16/18 14:20 79 08/16/18 14:19 Nasal Cannula 08/16/18 13:50 16 97 2 08/16/18 13:20 98.0 98.0 Physical Exam General: Oriented X3, Cooperative, mild distress Lungs: Clear Abdomen: Other (MILD TENDERNESS) Extremities: No cyanosis Labs LABS Laboratory Tests Test 08/15/18 19:00 Vancomycin Level Trough 8.6 mcg/mL (10.0-20.0) Vancomycin Last Dose Date 08/14/18 Vancomycin Last Dose Time 1930 Assessment and Plan Assessmemt and Plan Problems Medical Problems: (1) CHF (congestive heart failure) Status: Acute Comment Review of Relevant I have reviewed the following items loren (where applicable) has been applied. Labs Laboratory Tests Test 08/15/18 19:00 Vancomycin Level Trough 8.6 mcg/mL (10.0-20.0) Vancomycin Last Dose Date 08/14/18 Vancomycin Last Dose Time 1929 Laboratory Tests Test 08/15/18 19:00 Vancomycin Level Trough 8.6 mcg/mL (10.0-20.0) Vancomycin Last Dose Date 08/14/18 Vancomycin Last Dose Time 1929 Microbiology 08/13/18 Blood Culture - Preliminary, Resulted NO GROWTH AFTER 2 DAYS Medications Current Medications Albuterol Sulfate (Ventolin Neb Soln) 10 mg 1X ONCE CONT NEB Last administered on 08/13/18at 16:43; Start 08/13/18 at 16:15; Stop 08/13/18 at 16:16 ; Status DC Vancomycin HCl (Vanco Per Pharmacy) 1 each PRN DAILY PRN MC SEE COMMENTS; Start 08/13/18 at 16:45; Stop 08/13/18 at 18:18; Status DC Levofloxacin/ Dextrose (Levaquin Per Pharmacy) 1 each PRN DAILY PRN MC SEE COMMENTS; Start 08/13/18 at 16:45; Stop 08/13/18 at 18:18; Status DC Furosemide (Lasix) 20 mg 1X ONCE IVP Last administered on 08/13/18at 17:10; Start 08/13/18 at 16:45; Stop 08/13/18 at 16:46; Status DC Methylprednisolone Sodium Succinate (SOLU-Medrol 125MG VIAL) 125 mg 1X ONCE IV Last administered on 08/13/18at 17:09; Start 08/13/18 at 16:45; Stop 08/13/18 at 16:46; Status DC Vancomycin HCl 1.25 gm/Sodium Chloride 250 ml @ 166.667 mls/hr 1X ONCE IV Last administered on 08/13/18at 19:34; Start 08/13/18 at 17:00; Stop 08/13/18 at 18:39; Status DC Levofloxacin/ Dextrose 100 ml @ 100 mls/hr 1X ONCE IV Last administered on at 17:12; Start 08/13/18 at 18:00; Stop 08/13/18 at 18:59; Status DC Albuterol/ Ipratropium (Duoneb) 3 ml RTQID NEB Last administered on 08/13/18 20:26; Start 08/13/18 at 18:00; Stop 08/13/18 at 20:37; Status DC Vancomycin HCl (Vanco Per Pharmacy) 1 each PRN DAILY PRN MC SEE COMMENTS Last administered on 08/16/18 13:49; Start 08/13/18 at 18:30 Levofloxacin/ Dextrose (Levaquin Per Pharmacy) 1 each PRN DAILY PRN MC SEE COMMENTS; Start 08/13/18 at 18:30 Levofloxacin/ Dextrose 50 ml @ 50 mls/hr Q24H IV Last administered on 17:13; Start 08/14/18 at 17:00 Vancomycin HCl 750 mg/Sodium Chloride 250 ml @ 250 mls/hr Q24H IV Last administered on 08/15/18 19:46; Start 08/14/18 at 19:30; Stop 08/15/18 at 21:01 ; Status DC Vancomycin HCl (Vancomycin Trough Level) 1 each 1X ONCE MC Last administered on 08/15/18 19:00; Start 08/15/18 at 19:00; Stop 08/15/18 at 19:01; Status DC Lactobacillus Rhamnosus (Culturelle) 1 cap BID PO Last administered on 14:20; Start 08/13/18 at 21:00 Aspirin (Ecotrin) 325 mg DAILY PO Last administered on 08/16/18 14:20; Start 08/14/18 at 09:00 Atorvastatin Calcium (Lipitor) 40 mg HS PO Last administered on 08/15/18 21:59 ; Start 08/13/18 at 21:00 Carvedilol (Coreg) 6.25 mg BIDWMEALS PO Last administered on 08/16/18 14:20; Start 08/13/18 at 21:00 Clopidogrel Bisulfate (Plavix) 75 mg DAILY PO Last administered on 08/16/18 14 :19; Start 08/14/18 at 09:00 Furosemide (Lasix) 40 mg DAILY PO Last administered on 08/16/18 14:19; Start 08/14/18 at 09:00 Albuterol/ Ipratropium (Duoneb) 3 ml RTQID NEB Last administered on 08/16/18 12:05; Start 08/14/18 at 08:00 Lisinopril (Prinivil) 20 mg DAILY PO Last administered on 08/16/18 14:21; Start 08/14/18 at 09:00 Tramadol HCl (Ultram) 50 mg PRN Q6HRS PRN PO MILD - MODERATE PAIN Last administered on 08/14/18at 10:48; Start 08/13/18 at 20:15; Stop 08/16/18 at 13:44 ; Status DC Vitamin D (Vitamin D3) 2,000 unit BIDAFTMEAL PO Last administered on 08/16/18 14:19; Start 08/14/18 at 09:00 Non-Formulary Medication (Fluticasone Propionate (Flovent 220MCG Hfa)) 2 inh BID INH ; Start 08/13/18 at 21:00; Status UNV Ondansetron HCl (Zofran Odt) 4 mg PRN Q8HRS PRN PO NAUSEA/VOMITING; Start 08/13 at 20:45 Pantoprazole Sodium (Protonix) 40 mg PRN DAILY PRN PO HEARTBURN / GAS; Start 08/14/18 at 07:30 Budesonide (Pulmicort) 0.5 mg RTBID NEB Last administered on 08/16/18 07:26; Start 08/14/18 at 08:00 Levofloxacin/ Dextrose 100 ml @ 100 mls/hr Q24H IV ; Start 08/13/18 at 21:15; Status UNV Metoclopramide HCl (Reglan Vial) 5 mg QIDACHS IV Last administered on 14:21; Start 08/13/18 at 21:30 Albuterol Sulfate (Ventolin Neb Soln) 2.5 mg PRN Q4HRS PRN NEB SHORTNESS OF BREATH Last administered on 08/16/18 05:03; Start 08/13/18 at 23:00 Furosemide (Lasix) 40 mg 1X ONCE IVP Last administered on 08/14/18at 08:40; Start 08/14/18 at 07:45; Stop 08/14/18 at 07:46; Status DC Methylprednisolone Sodium Succinate (SOLU-Medrol 125MG VIAL) 80 mg 1X ONCE IV Last administered on 08/14/18at 08:40; Start 08/14/18 at 07:45; Stop 08/14/18 at 07:46; Status DC Methylprednisolone Sodium Succinate (SOLU-Medrol 125MG VIAL) 60 mg Q8HRS IV ; Start 08/14/18 at 14:00; Stop 08/14/18 at 14:00; Status DC Methylprednisolone Sodium Succinate (SOLU-Medrol 125MG VIAL) 60 mg DAILY IV Last administered on 08/16/18at 08:31; Start 08/15/18 at 09:00 Trazodone HCl (Desyrel) 50 mg PRN QHS PRN PO INSOMNIA Last administered on 08/14at 20:03; Start 08/14/18 at 10:45 Buspirone HCl (Buspar) 10 mg PRN TID PRN PO ANXIETY, 1ST CHOICE Last administered on 08/15/18at 09:13; Start 08/14/18 at 10:45 Lorazepam (Ativan) 0.5 mg PRN Q8HRS PRN PO ANXIETY / AGITATION, 2ND CHOIC Last administered on 08/16/18at 14:19; Start 08/14/18 at 10:45 Tramadol HCl (Ultram) 100 mg PRN Q6HRS PRN PO SEVERE PAIN Last administered on 08/16/18at 04:20; Start 08/14/18 at 11:00; Stop 08/16/18 at 13:44; Status DC Tramadol HCl (Ultram) 50 mg 1X ONCE PO Last administered on 08/14/18at 11:30; Start 08/14/18 at 11:30; Stop 08/14/18 at 11:31; Status DC Vancomycin HCl 750 mg/Sodium Chloride 250 ml @ 250 mls/hr Q12H IV Last administered on 08/16/18at 08:30; Start 08/16/18 at 07:00 Acetaminophen (Tylenol) 650 mg PRN Q6HRS PRN PO FEVER; Start 08/16/18 at 09:30 Ondansetron HCl (Zofran) 4 mg PRN Q6HRS PRN IV NAUSEA/VOMITING; Start 08/16/18 at 09:30 Morphine Sulfate (Morphine Sulfate) 2 mg PRN Q2HR PRN IV MODERATE TO SEVERE PAIN Last administered on 08/16/18at 09:32; Start 08/16/18 at 09:30 Tramadol HCl (Ultram) 50 mg PRN Q6HRS PRN PO MILD TO MODERATE PAIN Last administered on 08/16/18at 14:19; Start 08/16/18 at 09:30 Docusate Sodium (Colace) 100 mg PRN DAILY PRN PO CONSTIPATION; Start 08/16/18 at 09:30 Ringer's Solution 1,000 ml @ 100 mls/hr Q10H IV Last administered on at 12:49; Start 08/16/18 at 12:45 Propofol 20 ml @ As Directed STK-MED ONCE IV ; Start 08/16/18 at 12:46; Stop at 12:47; Status DC Vancomycin HCl (Vancomycin Trough Level) 1 each 1X ONCE MC ; Start 08/17/18 at 06:30; Stop 08/17/18 at 06:31 Active Scripts Active Levaquin (Levofloxacin) 500 Mg Tablet 1 Tab PO DAILY Levofloxacin 250 Mg Tablet 250 Mg PO DAILY06 Furosemide 40 Mg Tablet 40 Mg PO DAILY 30 Days Zofran (Ondansetron Hcl) 4 Mg Tablet 1 Tab PO Q8HRS PRN Reported Tramadol Hcl 50 Mg Tablet 1 Tab PO PRN Q6HRS PRN Flovent 220MCG Hfa (Fluticasone Propionate) 12 Gm Aer.w.adap 2 Inh INH BID Protonix (Pantoprazole Sodium) 20 Mg Tablet.dr 40 Mg PO PRN DAILY PRN Duoneb 0.5-3(2.5) Mg/3 Ml (Albuterol/Ipratropium) 3 Ml Ampul.neb 3 Ml NEB QID Atorvastatin Calcium 40 Mg Tablet 40 Mg PO HS Lisinopril 20 Mg Tablet 20 Mg PO DAILY Carvedilol 6.25 Mg Tablet 6.25 Mg PO BIDWMEALS Vitamin D (Cholecalciferol (Vitamin D3)) 2,000 Unit Capsule 2,000 Unit PO BIDAFTMEAL Aspirin Ec (Aspirin) 325 Mg Tablet. 325 Mg PO DAILY Clopidogrel (Clopidogrel Bisulfate) 75 Mg Tablet 75 Mg PO DAILY Vitals/I & O Vital Sign - Last 24 Hours 08/15/18 08/15/18 08/15/18 08/15/18 15:00 15:48 17:12 19:00 Temp 98.6 97.5 98.6 97.5 Pulse 82 82 76 Resp 16 17 B/P (MAP) 110/49 (69) 110/49 128/63 (84) Pulse Ox 92 94 O2 Delivery Room Air Nasal Cannula Room Air O2 Flow Rate 2.0 08/15/18 08/15/18 08/15/18 08/16/18 20:00 20:26 23:00 03:00 Temp 97.6 97.4 97.6 97.4 Pulse 77 86 Resp 17 18 B/P (MAP) 159/77 (104) 118/66 (83) Pulse Ox 97 95 O2 Delivery Room Air Nasal Cannula Room Air Room Air O2 Flow Rate 2.0 08/16/18 08/16/18 08/16/18 08/16/18 04:20 05:03 05:20 07:00 Temp 98.5 98.5 Pulse 74 Resp 20 20 18 B/P (MAP) 135/72 (93) Pulse Ox 93 O2 Delivery Room Air Nasal Cannula Nasal Cannula Room Air O2 Flow Rate 2.0 2.0 08/16/18 08/16/18 08/16/18 08/16/18 07:25 08:00 09:32 10:02 Pulse Ox 97 O2 Delivery Nasal Cannula Nasal Cannula Nasal Cannula Nasal Cannula O2 Flow Rate 2.0 2.0 2.0 2.0 08/16/18 08/16/18 08/16/18 08/16/18 10:57 12:06 12:38 12:51 Temp 98.7 98.8 98.7 98.8 Pulse 74 74 Resp 18 20 B/P (MAP) 137/76 (96) Pulse Ox 94 97 97 O2 Delivery Room Air Nasal Cannula Nasal Cannula O2 Flow Rate 2.0 2.0 08/16/18 08/16/18 08/16/18 08/16/18 13:20 13:35 13:50 14:19 Temp 98.0 98.0 Pulse 76 77 73 Resp 16 16 16 B/P (MAP) 136/70 127/70 135/71 Pulse Ox 98 97 97 O2 Delivery Nasal Cannula Nasal Cannula Nasal Cannula Nasal Cannula O2 Flow Rate 2 2 2 08/16/18 08/16/18 14:20 14:21 Pulse 79 B/P (MAP) 143/83 Intake and Output 08/15/18 08/15/18 08/16/18 15:00 23:00 07:00 Intake Total 840 ml Balance 840 ml ALFRED CASTORENA MD Aug 16, 2018 14:41
[2018-08-16] MEDS ORDERED: SODIUM CHLORIDE 0.65% NASAL SPRAY 45ML BOTTLE. NS PRN (18:15)
[2018-08-16 19:31] VITALS: BP 122/63
[2018-08-16] MEDS: ATORVASTATIN CALCIUM 40 MG TABLET. PO SCH (20:48)
[2018-08-16] MEDS: traZODone 50 MG TABLET. PO PRN (20:49)
[2018-08-16 22:37] VITALS: BP 93/45
[2018-08-17 03:56] VITALS: BP 131/80
[2018-08-17 06:43] LABS: BASO # 0.1 x10^3/uL (0.0-0.2); BASO % 1 % (0-3); EOS # 0.6 x10^3/uL (0.0-0.7); EOS % 4 % (0-3); HEMATOCRIT 34.3 % (36.0-47.0); HEMOGLOBIN 11.5 g/dL (12.0-15.5); LYMPH # 2.5 x10^3/uL (1.0-4.8); LYMPH % 16 % (24-48); MEAN CORPUSCULAR HEMOGLOBIN 30 pg (25-35); MEAN CORPUSCULAR HGB CONC 34 g/dL (31-37); MEAN CORPUSCULAR VOLUME 90 fL (79-100); MONO # 1.1 x10^3/uL (0.0-1.1); MONO % 7 % (0-9); NEUT # 10.9 x10^3uL (1.8-7.7); NEUT % 72 % (31-73); PLATELET COUNT 277 x10^3/uL (140-400); RED CELL DISTRIBUTION WIDTH 14.1 % (11.5-14.5); WHITE BLOOD COUNT 15.1 x10^3/uL (4.0-11.0)
[2018-08-17 06:50] LABS: CALCIUM 8.8 mg/dL (8.5-10.1); CREATININE 0.8 mg/dL (0.6-1.0); GFR 84.8; POTASSIUM 4.1 mmol/L (3.5-5.1)
[2018-08-17 07:00] VITALS: BP 131/76
[2018-08-17] MEDS: traMADol 50 MG TABLET PO PRN (07:00)
[2018-08-17] MEDS: VANCOMYCIN PER PHARMACY MC PRN (07:15)
[2018-08-17] MEDS: VANCOMYCIN 750 MG in IV NORMAL SALINE 250ML 250 ML IV SCH (07:31)
[2018-08-17] MEDS: BUDESONIDE 0.5 MG/2 ML NEBU. NEB SCH (08:09)
[2018-08-17] MEDS: IPRATRPIUM/ALBUTEROL 0.5/2.5MG 3 ML NEBU. NEB SCH ×2 (08:09→11:29)
--- NOTE | 2018-08-17 08:35 | PDOC ---
PULMONARY PROGRESS NOTES Subjective feels better Vitals Vital Signs Date Time Temp Pulse Resp B/P (MAP) Pulse Ox O2 Delivery O2 Flow Rate FiO2 08/17/18 08:08 100 Nasal Cannula 2.0 08/17/18 07:00 98.9 78 18 131/76 (94) 98.9 ROS: No Chest Pain, No Increase Cough General: Alert, No acute distress HEENT: Other Lungs: Clear Cardiovascular: S1 Abdomen: Soft, Non-tender Neuro Exam: Alert Extremities: No Edema Labs Laboratory Tests Test 08/15/18 19:00 08/17/18 06:30 Vancomycin Level Trough 8.6 mcg/mL (10.0-20.0) 17.0 mcg/mL (10.0-20.0) Vancomycin Last Dose Date 08/14/18 08/16/18 Vancomycin Last Dose Time 1930 1900 White Blood Count 15.1 x10^3/uL (4.0-11.0) Red Blood Count 3.80 x10^6/uL (3.50-5.40) Hemoglobin 11.5 g/dL (12.0-15.5) Hematocrit 34.3 % (36.0-47.0) Mean Corpuscular Volume 90 fL (79-100) Mean Corpuscular Hemoglobin 30 pg (25-35) Mean Corpuscular Hemoglobin Concent 34 g/dL (31-37) Red Cell Distribution Width 14.1 % (11.5-14.5) Platelet Count 277 x10^3/uL (140-400) Neutrophils (%) (Auto) 72 % (31-73) Lymphocytes (%) (Auto) 16 % (24-48) Monocytes (%) (Auto) 7 % (0-9) Eosinophils (%) (Auto) 4 % (0-3) Basophils (%) (Auto) 1 % (0-3) Neutrophils # (Auto) 10.9 x10^3uL (1.8-7.7) Lymphocytes # (Auto) 2.5 x10^3/uL (1.0-4.8) Monocytes # (Auto) 1.1 x10^3/uL (0.0-1.1) Eosinophils # (Auto) 0.6 x10^3/uL (0.0-0.7) Basophils # (Auto) 0.1 x10^3/uL (0.0-0.2) Sodium Level 138 mmol/L (136-145) Potassium Level 4.1 mmol/L (3.5-5.1) Chloride Level 102 mmol/L (98-107) Carbon Dioxide Level 33 mmol/L (21-32) Anion Gap 3 (6-14) Blood Urea Nitrogen 21 mg/dL (7-20) Creatinine 0.8 mg/dL (0.6-1.0) Estimated GFR (Cockcroft-Gault) 84.8 Glucose Level 92 mg/dL (70-99) Calcium Level 8.8 mg/dL (8.5-10.1) Laboratory Tests Test 08/17/18 06:30 White Blood Count 15.1 x10^3/uL (4.0-11.0) Red Blood Count 3.80 x10^6/uL (3.50-5.40) Hemoglobin 11.5 g/dL (12.0-15.5) Hematocrit 34.3 % (36.0-47.0) Mean Corpuscular Volume 90 fL (79-100) Mean Corpuscular Hemoglobin 30 pg (25-35) Mean Corpuscular Hemoglobin Concent 34 g/dL (31-37) Red Cell Distribution Width 14.1 % (11.5-14.5) Platelet Count 277 x10^3/uL (140-400) Neutrophils (%) (Auto) 72 % (31-73) Lymphocytes (%) (Auto) 16 % (24-48) Monocytes (%) (Auto) 7 % (0-9) Eosinophils (%) (Auto) 4 % (0-3) Basophils (%) (Auto) 1 % (0-3) Neutrophils # (Auto) 10.9 x10^3uL (1.8-7.7) Lymphocytes # (Auto) 2.5 x10^3/uL (1.0-4.8) Monocytes # (Auto) 1.1 x10^3/uL (0.0-1.1) Eosinophils # (Auto) 0.6 x10^3/uL (0.0-0.7) Basophils # (Auto) 0.1 x10^3/uL (0.0-0.2) Sodium Level 138 mmol/L (136-145) Potassium Level 4.1 mmol/L (3.5-5.1) Chloride Level 102 mmol/L (98-107) Carbon Dioxide Level 33 mmol/L (21-32) Anion Gap 3 (6-14) Blood Urea Nitrogen 21 mg/dL (7-20) Creatinine 0.8 mg/dL (0.6-1.0) Estimated GFR (Cockcroft-Gault) 84.8 Glucose Level 92 mg/dL (70-99) Calcium Level 8.8 mg/dL (8.5-10.1) Vancomycin Level Trough 17.0 mcg/mL (10.0-20.0) Vancomycin Last Dose Date 08/16/18 Vancomycin Last Dose Time 1900 Medications Active Scripts Medications Dose Route/Sig Max Daily Dose Days Date Category Tramadol Hcl 50 Mg Tablet 1 Tab PO PRN Q6HRS PRN 08/13/18 Reported Flovent 220MCG Hfa (Fluticasone Propionate) 12 Gm Aer.w.adap 2 Inh INH BID 08/13/18 Reported Levaquin (Levofloxacin) 500 Mg Tablet 1 Tab PO DAILY 08/12/18 Rx Levofloxacin 250 Mg Tablet 250 Mg PO DAILY06 08/09/18 Rx Protonix (Pantoprazole Sodium) 20 Mg Tablet.dr 40 Mg PO PRN DAILY PRN 06/22/18 Reported Furosemide 40 Mg Tablet 40 Mg PO DAILY 30 05/23/18 Rx Duoneb 0.5-3(2.5) Mg/3 Ml (Albuterol/Ipratropium) 3 Ml Ampul.neb 3 Ml NEB QID 04/17/18 Reported Zofran (Ondansetron Hcl) 4 Mg Tablet 1 Tab PO Q8HRS PRN 05/19/16 Rx Atorvastatin Calcium 40 Mg Tablet 40 Mg PO HS 09/24/15 Reported Lisinopril 20 Mg Tablet 20 Mg PO DAILY 09/24/15 Reported Carvedilol 6.25 Mg Tablet 6.25 Mg PO BIDWMEALS 09/24/15 Reported Vitamin D (Cholecalciferol (Vitamin D3)) 2,000 Unit Capsule 2,000 Unit PO BIDAFTMEAL 01/07/15 Reported Aspirin Ec (Aspirin) 325 Mg Tablet.dr 325 Mg PO DAILY 01/07/15 Reported Clopidogrel (Clopidogrel Bisulfate) 75 Mg Tablet 75 Mg PO DAILY 01/07/15 Reported Impression . 1. Dyspnea with recurrent respiratory failure secondary to combination of acute exacerbation of chronic obstructive pulmonary disease and bipqy-mw-rhbnhil systolic heart failure. 2. Abnormal chest x-ray with prominent interstitial markings, suggesting mild interstitial edema. SUSPECT CHRONIC ASPIRATION 3. Severe cardiomyopathy with an ejection fraction of 10% to 15%, status post defibrillator. 4. History of progressive right upper lobe infiltrate based on recent CT chest, status post bronchoscopy during recent previous admission, with no evidence of any bacterial growth. Yeast was isolated, which was a contaminant. Plan . S/P REPLACEMENT OF PEG FOLLOW UP IN OFFICE REPEAT CT IN 8 WEEKS STEROIDS NO ANTIBX NEEDED OK TO D/C REGGIE CONTRERAS MD Aug 17, 2018 08:35
[2018-08-17] MEDS: ASPIRIN ENTERIC COATED 325 MG TABLET.DR. PO SCH (09:12)
[2018-08-17] MEDS: CLOPIDOGREL BISULFATE 75 MG TABLET PO SCH (09:13)
[2018-08-17] MEDS: LISINOPRIL 20 MG TABLET PO SCH (09:13)
[2018-08-17] MEDS: CHOLECALCIFEROL (VITAMIN D3) 1,000 UNIT TABLET PO SCH (09:13)
[2018-08-17] MEDS: FUROSEMIDE 40 MG TABLET. PO SCH (09:13)
[2018-08-17] MEDS: LACTOBACILLUS RHAMNOSUS GG 1 CAPSULE. PO SCH (09:13)
[2018-08-17] MEDS: CARVEDILOL 6.25 MG TABLET. PO SCH (09:13)
[2018-08-17] MEDS: METOCLOPRAMIDE HCL 10 MG/2 ML VIAL. IV SCH ×2 (09:14→11:55)
[2018-08-17] MEDS: methylPREDNISolone SOD SUCC PF 125 MG/2 ML VIAL. IV SCH (09:14)
[2018-08-17] MEDS ORDERED: HYDROcodone/APAP 5/325MG 1 TAB TABLET PO PRN (09:30)
[2018-08-17 11:00] VITALS: BP 135/61
--- NOTE | 2018-08-17 12:12 | PDOC ---
Subjective: Subjective: I asked about her new PEG tube and she said "I love this baby!" Objective: Objective: PEG functioning per RN, possible DC today. Vital Signs: Vital Signs Date Time Temp Pulse Resp B/P (MAP) Pulse Ox O2 Delivery O2 Flow Rate FiO2 08/17/18 11:30 94 Room Air 08/17/18 11:00 98.2 71 18 135/61 (85) 98.2 08/17/18 10:30 2.0 Labs: Laboratory Tests Test 08/17/18 06:30 White Blood Count 15.1 x10^3/uL Red Blood Count 3.80 x10^6/uL Hemoglobin 11.5 g/dL Hematocrit 34.3 % Mean Corpuscular Volume 90 fL Mean Corpuscular Hemoglobin 30 pg Mean Corpuscular Hemoglobin Concent 34 g/dL Red Cell Distribution Width 14.1 % Platelet Count 277 x10^3/uL Neutrophils (%) (Auto) 72 % Lymphocytes (%) (Auto) 16 % Monocytes (%) (Auto) 7 % Eosinophils (%) (Auto) 4 % Basophils (%) (Auto) 1 % Neutrophils # (Auto) 10.9 x10^3uL Lymphocytes # (Auto) 2.5 x10^3/uL Monocytes # (Auto) 1.1 x10^3/uL Eosinophils # (Auto) 0.6 x10^3/uL Basophils # (Auto) 0.1 x10^3/uL Sodium Level 138 mmol/L Potassium Level 4.1 mmol/L Chloride Level 102 mmol/L Carbon Dioxide Level 33 mmol/L Anion Gap 3 Blood Urea Nitrogen 21 mg/dL Creatinine 0.8 mg/dL Estimated GFR (Cockcroft-Gault) 84.8 Glucose Level 92 mg/dL Calcium Level 8.8 mg/dL Vancomycin Level Trough 17.0 mcg/mL Vancomycin Last Dose Date 08/16/18 Vancomycin Last Dose Time 1900 Imaging: EGD 08/16 E--tertiary contractions/no stricture. G--few erosions, antrum. Old g-tube. D--Normal to second portion. --balloon on old tube (18F) deflated and tube removed. String introduced per stoma; new tube in standard pull fashion. 'Scope reintroduced, confirming good tube placement. Esophageal biopsies from mid-esophagus re: EE? IMP: Successful tube replacement. PE: GEN: NAD, was asleep LUNGS: NC HEART: RRR ABD: soft, non-tender, new PEG - site clean/dry, removed gauze from under bumper NEURO/PSYCH: A & O 3 A/P: H/o abnormal swallowing -tertiary contractions on EGD, also biopsies take r/o EE S/p PEG replacement -- DC per primary - would send w/ Reglan. Follow-up re: EGD biopsies. FARHAN AKINS Aug 17, 2018 12:12
[2018-08-17] MEDS ORDERED: HYDR-2758 PO (15:36)
--- NOTE | 2018-08-17 15:39 | PDOC3 ---
Discharge Summary [facility] Date of Admission: Aug 13, 2018 Discharge Date: Aug 17, 2018 Admitting Diagnosis SOA. Abnormal CT chest revealing right upper lobe infiltrate compared to the film 06/27 s/p bronch (`08/05/18) - COPD exacerbation Indwelling pacer Chronic A.fib Cardiomyopathy, ejection fraction 10%-15%. Undernourished-BMI 15.3/Cachexia Hx bulimia Hypoxic respiratory failure Questionable hx COPD Indwelling PEG sec to mild GASTROPARESIS/dysphagia confirmed by GET hypotension responsive to fluids fell 08/09, right chest wall pain with rib fx severe protein-caloric malnutrition Final Diagnosis CONSULTS pulm gi Brief Hospital Course Ms. Mcduffie is a 73 old F, was just dced on 08/12 for COPD home with levaquin and HH, came on 08/13 for sob. has copd exacerbation, [place] with steroid, iv abx. then her indwelling PEG not working and was replaced on Thursday. dc home wo abx as per pulm, taper steroid. cont CAD home meds. dc time 35min. also has recent rt fib fx s/p fall, dc with lortab 15pills. General: Oriented X3, Cooperative, mild distress Lungs: Clear Abdomen: PEG in PLACE, no tenderness heart: normal s1, s2, no murmurs. Extremities: No cyanosis Patient History: Unknown Disposition home CONDITION AT DISCHARGE: Improved Scheduled Aspirin (Aspirin Ec), 325 MG PO DAILY, (Reported) Atorvastatin Calcium (Atorvastatin Calcium), 40 MG PO HS, (Reported) Carvedilol (Carvedilol), 6.25 MG PO BIDWMEALS, (Reported) Cholecalciferol (Vitamin D3) (Vitamin D), 2,000 UNIT PO BIDAFTMEAL, (Reported) Clopidogrel Bisulfate (Clopidogrel), 75 MG PO DAILY, (Reported) Fluticasone Propionate (Flovent 220MCG Hfa), 2 INH INH BID, (Reported) Furosemide (Furosemide), 40 MG PO DAILY Ipratropium/Albuterol Sulfate (Duoneb 0.5-3(2.5) Mg/3 Ml), 3 ML NEB QID, ( Reported) Lisinopril (Lisinopril), 20 MG PO DAILY, (Reported) Scheduled PRN Hydrocodone Bit/Acetaminophen (Hydrocodone-Apap 5-325 ), 1 TAB PO PRN Q4HRS PRN for SEVERE PAIN Ondansetron Hcl (Zofran), 1 TAB PO Q8HRS PRN for NAUSEA Pantoprazole Sodium (Protonix), 40 MG PO PRN DAILY PRN for HEARTBURN / GAS, ( Reported) Tramadol Hcl (Tramadol Hcl), 1 TAB PO PRN Q6HRS PRN for PAIN, (Reported) Discontinued Medications Levofloxacin (Levofloxacin), 250 MG PO DAILY06 Levofloxacin (Levaquin), 1 TAB PO DAILY Tramadol Hcl (Ultram), 50 MG PO Q6HRS PRN for PAIN, (Reported) ALFRED CASTORENA MD Aug 17, 2018 15:39
--- NOTE | 2018-08-17 16:08 | PATHOLOGY ---
[facility] Accession Number: [id number] . 01 Material submitted: . MID-ESOPHAGUS BIOPSY . 01 Clinical history: . Pre-OP DX: Malfunctioning PEG Post-OP DX: Esophagitis . 02 Diagnosis: Esophageal biopsy, middle esophagus: - Segments of hyperplastic squamous esophageal mucosa consistent with reflux esophagitis. See comment. QTP/08/17/2018 . 02 Comment: Sections of the middle esophageal biopsy reveal segments of tangential oriented hyperplastic squamous esophageal mucosa focally containing intraepithelial neutrophils and an occasional intraepithelial eosinophil. There is focal subepithelial tissue showing chronic inflammation and admixed eosinophils. The findings are consistent with reflux esophagitis. There is no evidence of Maharaj's change, dysplasia, or malignancy. (JPM:[facility] 08/17/2018) . 02 Electronically signed: . Jerry Pradhan MD, Pathologist NPI- [id number] . 01 Gross description: . Received in formalin labeled "HardridMila carlson, mid esophagus BX," are 2 segments of martinez soft tissue measuring 1.1 x 0.2 x 0.2 cm in aggregate dimensions and ranging from 0.5 to 0.6 cm in maximum dimension. The specimen is submitted entirely in cassette A1. (TSD; 08/16/2018) TOB/TOB . 02 Microscopic: . . . 02 Pathologist provided ICD-10: K21.0 . 02 CPT . 189085 Specimen Comment: A courtesy copy of this report has been sent to Specimen Comment: [phone], , , . Specimen Comment: Report sent to ,DR SIMS,DR LOPEZ Specimen Comment: DR BRYAN Specimen Comment: A duplicate report has been generated due to demographic updates. Performed at: 01 [facility] [address] [facility] [address], [place] [id number] MD Lai Veliz MD Phone: [phone] Performed at: 02 [facility] [address] [place], [place] [id number] MD Jerry Pradhan MD Phone: [phone]
== END 2018-08-17 16:05 | disposition home or self-care (01) | DRG 393 ==
LOC: ER 15:58 → 2 NORTH 17:00 → ER 18:18
PROVIDERS: ADMIT Family Medicine; ATTEND Family Medicine
PROC: 0DP6XUZ Removal of Feeding Device from Stomach, External Approach (ICD-10-PCS; principal; 2018-08-13)
PROC: 0DH68UZ Insertion of Feeding Device into Stomach, Via Natural or Artificial Opening Endoscopic (ICD-10-PCS; 2018-08-16)
PROC: 0DB58ZX Excision of Esophagus, Via Natural or Artificial Opening Endoscopic, Diagnostic (ICD-10-PCS; 2018-08-16 13:00)
DX: K94.23 Gastrostomy malfunction (principal); E43 Unspecified severe protein-calorie malnutrition; J96.91 Respiratory failure, unspecified with hypoxia; I50.23 Acute on chronic systolic (congestive) heart failure; J44.1 Chronic obstructive pulmonary disease with (acute) exacerbation; Z68.1 Body mass index [BMI] 19.9 or less, adult; I42.9 Cardiomyopathy, unspecified; I11.0 Hypertensive heart disease with heart failure; E78.5 Hyperlipidemia, unspecified; F17.210 Nicotine dependence, cigarettes, uncomplicated; F41.9 Anxiety disorder, unspecified; I25.10 Atherosclerotic heart disease of native coronary artery without angina pectoris; I48.2 Chronic atrial fibrillation; K22.9 Disease of esophagus, unspecified; K31.84 Gastroparesis; R13.10 Dysphagia, unspecified; Z82.49 Family history of ischemic heart disease and other diseases of the circulatory system; Z86.59 Personal history of other mental and behavioral disorders; Z90.49 Acquired absence of other specified parts of digestive tract; Z95.5 Presence of coronary angioplasty implant and graft; Z95.810 Presence of automatic (implantable) cardiac defibrillator; Z99.81 Dependence on supplemental oxygen; Z90.710 Acquired absence of both cervix and uterus; Z87.440 Personal history of urinary (tract) infections; Z88.0 Allergy status to penicillin; Z88.2 Allergy status to sulfonamides; I25.2 Old myocardial infarction; Z68.20 Body mass index [BMI] 20.0-20.9, adult
CPT/HCPCS: 36415; 36600; 43246; 71045; 80048; 80053; 80202; 82805; 83605; 83880; 84484; 85007; 85025; 85610; 87040; 88305; 93005; 94640; 94660; 94760; 96365; 96375; J1940; J1956; J2270; J2704; J2765; J2930; J3370; J7050; J7120; J7613; J7620; J7626; 99285-25; J7030

== ENCOUNTER 2018-11-24 22:27 | Inpatient (IN) | payer OTHER ==
[~2018-11-24] VITALS: Ht 167.6 cm; Wt 47.3 kg
[~2018-11-24 22:27] MED LIST changes: +ALBU2.5V8 INH; +CARV6.2511 PO; -CARV6.252 PO; +CITA10TA8 PO; +FLUT12AE2 INH; +FURO-69 PO; -GABA-586 PO; +GABA300C18 PO; -HYDR-2758 PO; +HYDR-2761 PO; -OXYC-323 PO; +OXYC1TAB15 PO; +RANI-376 PO; -RANI150T21 PO; +TRAM50TA PO
[2018-11-24] MEDS ORDERED: ADENOSINE 6 MG/2 ML VIAL. IV ONE (22:35)
[2018-11-24 22:48] LABS: BASO # 0.1 x10^3/uL (0.0-0.2); BASO % 1 % (0-3); EOS # 3.2 x10^3/uL (0.0-0.7); EOS % 18 % (0-3); HEMATOCRIT 35.7 % (36.0-47.0); HEMOGLOBIN 11.3 g/dL (12.0-15.5); LYMPH # 3.7 x10^3/uL (1.0-4.8); LYMPH % 21 % (24-48); MEAN CORPUSCULAR HEMOGLOBIN 29 pg (25-35); MEAN CORPUSCULAR HGB CONC 32 g/dL (31-37); MEAN CORPUSCULAR VOLUME 92 fL (79-100); MONO # 0.8 x10^3/uL (0.0-1.1); MONO % 5 % (0-9); NEUT # 10.1 x10^3uL (1.8-7.7); NEUT % 56 % (31-73); PLATELET COUNT 452 x10^3/uL (140-400); RED BLOOD COUNT 3.87 x10^6/uL (3.50-5.40); RED CELL DISTRIBUTION WIDTH 13.8 % (11.5-14.5)
[2018-11-24 22:57] LABS: CALCIUM 9.9 mg/dL (8.5-10.1); CREATININE 1.1 mg/dL (0.6-1.0); GFR 58.7; POTASSIUM 4.7 mmol/L (3.5-5.1)
[2018-11-24] MEDS ORDERED: ALBUTEROL SULFATE 2.5 MG/3 ML NEBU. CONT NEB ONE (23:00)
[2018-11-24] MEDS ORDERED: IPRATROPIUM BROMIDE 0.5 MG/2.5 ML NEBU. NEB ONE (23:00)
[2018-11-24 23:03] LABS: ALBUMIN/GLOBULIN RATIO 0.7 (1.0-1.7); TOTAL BILIRUBIN 0.7 mg/dL (0.2-1.0); TOTAL PROTEIN 7.3 g/dL (6.4-8.2)
[2018-11-24 23:11] LABS: BILIRUBIN,URINE NEGATIVE (NEG); CLARITY,URINE CLEAR; COLOR,URINE YELLOW; NITRITE,URINE NEGATIVE (NEG); PH,URINE 7.5; PROTEIN,URINE 100 mg/dL (NEG-TRACE)
--- NOTE | 2018-11-24 23:17 | RAD ---
AP portable chest radiograph 11/24/2018 Clinical History: Shortness of breath. An AP erect portable digital radiograph of the chest was obtained. Comparison study is dated 09/29/2018. A pacemaker/defibrillator is unchanged in position. The cardiac silhouette is borderline enlarged. The thoracic aorta is tortuous. Atherosclerotic calcification of the thoracic aorta is seen. Calcified hilar and mediastinal lymph nodes are again seen. Calcified granulomas are seen involving the right upper lobe. Slight prominence of pulmonary vasculature is seen which could reflect mild CHF. No pneumothorax or pleural effusion is seen. The osseous structures are unchanged. Impression: Slight prominence of the pulmonary vasculature is seen which could reflect mild CHF. Electronically signed by: Navneet Joyce MD (11/24/2018 11:14 PM) [facility]
[2018-11-24 23:20] LABS: BACTERIA,URINE FEW /HPF (0-FEW); RBC,URINE OCC /HPF (0-2)
[2018-11-24 23:21] LABS: SQUAMOUS EPITHELIAL CELL,UR OCC /LPF
[2018-11-24 23:35] LABS: % EOS 16 % (0-5); % LYMPHS 13 % (24-48); % MONOS 3 % (0-10); % SEGS 68 % (35-66); ANISOCYTOSIS SLIGHT; PLT ESTIMATE INCREASED (ADEQUATE)
[2018-11-24] MEDS ORDERED: ASPIRIN CHEWABLE 81 MG TABLET. PO ONE (23:45)
[2018-11-25] VITALS (8 sets, daily range): BP systolic 86–121; BP diastolic 51–64
[2018-11-25] MEDS ORDERED: FUROSEMIDE 40 MG/4 ML VIAL. IVP ONE
--- NOTE | 2018-11-25 00:13 | PHYS DOC ---
Past Medical History Past Medical History: CAD, CHF, COPD, Hypertension, [place] Additional Past Medical Histor: patient is a pacemaker she is on Coumadin Past Surgical History: Appendectomy, Hysterectomy, Pacemaker, Other Additional Past Surgical Histo: cardiac stents; defibrilator, PEG TUBE FOR CHRONIC VOMITING Alcohol Use: None Drug Use: None Adult General Chief Complaint Chief Complaint: SHORTNESS OF BREATH HPI HPI Patient is a 73 year old female who presents with shortness of breath. Patient was receiving bag valve ventilations from EMS which improved her oxygen saturation to the 80s from the 70s. History was limited from the patient due to the acuity of the situation. [] Review of Systems Review of Systems Unable to obtain due to the acuity in critical nature of the patient All other systems were reviewed and found to be within normal limits, except as documented in this note. Current Medications Current Medications Current Medications Medications (Trade) Dose Ordered Sig/Lisandra Start Time Stop Time Status Last Admin Dose Admin Adenosine (Adenocard) 6 mg STK-MED ONCE 11/24/18 22:35 11/24/18 22:36 DC Albuterol Sulfate (Ventolin Neb Soln) 10 mg 1X ONCE 11/24/18 23:00 11/24/18 23:01 DC 11/24/18 23:00 10 MG Aspirin (Children'S Aspirin) 324 mg 1X ONCE 11/24/18 23:45 11/24/18 23:46 DC 11/24/18 23:58 324 MG Furosemide (Lasix) 40 mg 1X ONCE 11/25/18 00:00 11/25/18 00:01 DC 11/25/18 00:03 40 MG Ipratropium [place] (Atrovent) 0.5 mg 1X ONCE 11/24/18 23:00 11/24/18 23:01 DC 11/24/18 23:00 0.5 MG Levofloxacin (Levaquin) 500 mg 1X ONCE 11/25/18 00:00 11/25/18 00:01 DC 11/25/18 00:03 500 MG Allergies Allergies Allergies Coded Allergies Type Severity Reaction Last Updated Verified Penicillins Allergy Intermediate hives 08/16/18 Yes Sulfa (Sulfonamide Antibiotics) Allergy Intermediate hives 08/16/18 Yes Physical Exam Physical Exam Constitutional: Well developed, cachectic, moderate respiratory distress, gasping for breath. [] HENT: Normocephalic, atraumatic, bilateral external ears normal, oropharynx moist, no oral exudates, nose normal. [] Eyes: PERRLA, EOMI, conjunctiva normal, no discharge. [] Neck: Normal range of motion, no tenderness, supple, no stridor. [] Cardiovascular:Heart rate regular rhythm, no murmur [] Lungs & Thorax: Bilateral breath sounds are diminished with crackles and wheezes Patient noted to have bandages over bilateral chest dated 11/20/18, patient incision appears clean and dry. Appears to be a new pacemaker having been placed.[] Abdomen: Bowel sounds normal, soft, no tenderness, no masses, no pulsatile masses. [] Skin: Warm, dry, no erythema, no rash. [] Back: No tenderness, no CVA tenderness. [] Extremities: No tenderness, no cyanosis, no clubbing, ROM intact, no edema. [] Neurologic: Alert. [] Psychologic: Unable to assess. [] Current Patient Data Vital Signs Vital Signs Date Time Temp Pulse Resp B/P (MAP) Pulse Ox O2 Delivery O2 Flow Rate FiO2 11/24/18 23:08 178/98 (124) 11/24/18 22:28 98.0 131 28 83 Bag Valve Mask 15.0 98.0 Lab Values Laboratory Tests Test 11/24/18 22:35 11/24/18 23:00 White Blood Count 18.0 x10^3/uL (4.0-11.0) H Red Blood Count 3.87 x10^6/uL (3.50-5.40) Hemoglobin 11.3 g/dL (12.0-15.5) L Hematocrit 35.7 % (36.0-47.0) L Mean Corpuscular Volume 92 fL (79-100) Mean Corpuscular Hemoglobin 29 pg (25-35) Mean Corpuscular Hemoglobin Concent 32 g/dL (31-37) Red Cell Distribution Width 13.8 % (11.5-14.5) Platelet Count 452 x10^3/uL (140-400) H Neutrophils (%) (Auto) 56 % (31-73) Lymphocytes (%) (Auto) 21 % (24-48) L Monocytes (%) (Auto) 5 % (0-9) Eosinophils (%) (Auto) 18 % (0-3) H Basophils (%) (Auto) 1 % (0-3) Neutrophils # (Auto) 10.1 x10^3uL (1.8-7.7) H Lymphocytes # (Auto) 3.7 x10^3/uL (1.0-4.8) Monocytes # (Auto) 0.8 x10^3/uL (0.0-1.1) Eosinophils # (Auto) 3.2 x10^3/uL (0.0-0.7) H Basophils # (Auto) 0.1 x10^3/uL (0.0-0.2) Segmented Neutrophils % 68 % (35-66) H Lymphocytes % 13 % (24-48) L Monocytes % 3 % (0-10) Eosinophils % 16 % (0-5) H Platelet Estimate Increased (ADEQUATE) Anisocytosis Slight Sodium Level 137 mmol/L (136-145) Potassium Level 4.7 mmol/L (3.5-5.1) Chloride Level 96 mmol/L (98-107) L Carbon Dioxide Level 28 mmol/L (21-32) Anion Gap 13 (6-14) Blood Urea Nitrogen 16 mg/dL (7-20) Creatinine 1.1 mg/dL (0.6-1.0) H Estimated GFR (Cockcroft-Gault) 58.7 BUN/Creatinine Ratio 15 (6-20) Glucose Level 199 mg/dL (70-99) H Lactic Acid Level 3.7 mmol/L (0.4-2.0) H Calcium Level 9.9 mg/dL (8.5-10.1) Total Bilirubin 0.7 mg/dL (0.2-1.0) Aspartate Amino Transferase (AST) 27 U/L (15-37) Alanine Aminotransferase (ALT) 16 U/L (14-59) Alkaline Phosphatase 127 U/L (46-116) H Creatine Kinase 53 U/L (26-192) Troponin I Quantitative 0.103 ng/mL (0.000-0.055) MO-Uuv-U-Type Natriuretic Peptide 2093 pg/mL (0-124) H Total Protein 7.3 g/dL (6.4-8.2) Albumin 3.0 g/dL (3.4-5.0) L Albumin/Globulin Ratio 0.7 (1.0-1.7) L Urine Collection Type U cath Urine Color Yellow Urine Clarity Clear Urine pH 7.5 Urine Specific [place] 1.020 Urine Protein 100 mg/dL (NEG-TRACE) Urine Glucose (UA) Negative mg/dL (NEG) Urine Ketones (Stick) Negative mg/dL (NEG) Urine Blood Negative (NEG) Urine Nitrite Negative (NEG) Urine Bilirubin Negative (NEG) Urine Urobilinogen Dipstick 1.0 mg/dL (0.2 mg/dL) Urine Leukocyte Esterase Small (NEG) Urine RBC Occ /HPF (0-2) Urine WBC 5-10 /HPF (0-4) Urine Squamous Epithelial Cells Occ /LPF Urine Bacteria Few /HPF (0-FEW) Urine Mucus Slight /LPF Laboratory Tests 11/24/18 22:35 Laboratory Tests 11/24/18 22:35 EKG EKG EKG of shows what appears to be a supraventricular rhythm although on reevaluation looks like it's paced at 133 bpm, this was significantly different than her previous EKG of 09/29/2018. As there is ED course progressed a repeat EKG was obtained at 2307 that shows a paced rhythm at 87 bpm, no accordance, no significant discordance, this is different than her previous which was not paced.[] Radiology/Procedures Radiology/Procedures AP portable chest radiograph 11/24/2018 Clinical History: Shortness of breath. An AP erect portable digital radiograph of the chest was obtained. Comparison study is dated 09/29/2018. A pacemaker/defibrillator is unchanged in position. The cardiac silhouette is borderline enlarged. The thoracic aorta is tortuous. Atherosclerotic calcification of the thoracic aorta is seen. Calcified hilar and mediastinal lymph nodes are again seen. Calcified granulomas are seen involving the right upper lobe. Slight prominence of pulmonary vasculature is seen which could reflect mild CHF. No pneumothorax or pleural effusion is seen. The osseous structures are unchanged. Impression: Slight prominence of the pulmonary vasculature is seen which could reflect mild CHF.[] Course & Med Decision Making Course & Med Decision Making Pertinent Labs and Imaging studies reviewed. (See chart for details) ED course: Patient arrived, was placed in bed, started on BiPAP shortly after arrival which improved her oxygen saturation to the mid to upper 90s, and she was feeling much better. Patient was noted to have a urinary tract infection as well as be in congestive heart failure and so was given treatment for both of those during her ED stay. Patient was additionally given nebulizer therapy for COPD. Due to the elevated troponin, patient was given aspirin. Patient never had any chest pain. Patient was admitted in improved condition. Critical care time of 45 minutes for direct patient care, interpretation of labs and imaging, and discussion with patient and family[] Dragon Disclaimer Dragon Disclaimer This electronic medical record was generated, in whole or in part, using a voice recognition dictation system. Departure Departure Impression: Primary Impression: COPD (chronic obstructive pulmonary disease) Additional Impressions: CHF (congestive heart failure) Non-STEMI (non-ST elevated myocardial infarction) Urinary tract infection Disposition: ADMITTED INPATIENT Admitting Physician: Torrie Seay Condition: IMPROVED Referrals: VAUGHN LOPEZ MD (PCP) Problem Qualifiers Primary Impression: COPD (chronic obstructive pulmonary disease) COPD type: unspecified COPD Qualified Codes: J44.9 - Chronic obstructive pulmonary disease, unspecified Additional Impressions: CHF (congestive heart failure) Heart failure type: unspecified Heart failure chronicity: acute on chronic Qualified Codes: I50.9 - Heart failure, unspecified Urinary tract infection Urinary tract infection type: site unspecified Hematuria presence: without hematuria Qualified Codes: N39.0 - Urinary tract infection, site not specified KARAN MONTES DO Nov 25, 2018 00:13
[2018-11-25] MEDS ORDERED: ACETAMINOPHEN 325 MG TABLET. PO PRN ×2 (00:15→14:15)
[2018-11-25] MEDS ORDERED: NITROGLYCERIN SUBLINGUAL 0.4 MG BOTTLE OF 25. SL PRN (00:15)
[2018-11-25] MEDS ORDERED: ONDANSETRON PF 4 MG/2 ML VIAL. IV PRN (00:15)
[2018-11-25] MEDS ORDERED: ALPRAZolam 0.25 MG TABLET PO ONE (01:00)
[2018-11-25] MEDS: ALBUTEROL SULFATE 2.5 MG/3 ML NEBU. NEB PRN (03:47)
[2018-11-25] MEDS ORDERED: methylPREDNISolone SOD SUCC PF 40 MG/ML VIAL. IV ONE (04:00)
[2018-11-25] MEDS: IPRATRPIUM/ALBUTEROL 0.5/2.5MG 3 ML NEBU. NEB SCH ×6 (07:51→20:30)
[2018-11-25] MEDS ORDERED: SERT50TA8 PO (08:02)
--- NOTE | 2018-11-25 08:23 | EKG ---
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
--- NOTE | 2018-11-25 08:24 | EKG ---
[facility] [address] [place] [address] Test Date: 2018-11-24 Test Time: 22:22:59 Pat Name: JUAN LUIS REED Department: Room: 246 1 Gender: Preservationist: : 1945 Requested By: JARVIS NIEVES Order Number: [id number] Reading MD: Rajeev Melissa MD Measurements Intervals [place] Rate: P: [place]: QRS: QRSD: T: QT: QTc: Interpretive Statements SR LBBB NO CLEAR ISCHEMIA Electronically Signed On 02-04-2019 14:41:50 CDT by Rajeev Melissa MD
[2018-11-25] MEDS: methylPREDNISolone SOD SUCC PF 40 MG/ML VIAL. IV SCH ×2 (09:18→21:24)
[2018-11-25] MEDS ORDERED: GUAI600T79 PO (09:57)
[2018-11-25] MEDS ORDERED: OXYC5SOL PO (09:57)
[2018-11-25] MEDS ORDERED: LISI2.5T PO (09:57)
[2018-11-25] MEDS ORDERED: PANT20TA2 PO (09:57)
[2018-11-25] MEDS ORDERED: SPIR25TA5 PO (09:57)
[2018-11-25] MEDS ORDERED: FLUT12AE IH (10:05)
[2018-11-25] MEDS ORDERED: ALBUTEROL SULFATE 2.5 MG/3 ML NEBU. INH PRN (10:15)
[2018-11-25] MEDS ORDERED: traMADol 50 MG TABLET PO PRN (10:15)
[2018-11-25] MEDS ORDERED: ONDANSETRON ODT 4 MG TAB.RAPDIS. PO PRN (10:30)
[2018-11-25] MEDS ORDERED: ALPR0.254 PO (10:32)
--- NOTE | 2018-11-25 10:36 | PDOC2 ---
CARDIAC CONSULT DATE OF CONSULT Date of Consult DATE: 11/25/18 TIME: 10:20 REASON FOR CONSULT Reason for Consult: NSTEMI, pacemaker REFERRING PHYSICIAN Referring Physician: Juan Carlos SOURCE Source: Chart review, Patient HISTORY OF PRESENT ILLNESS HISTORY OF PRESENT ILLNESS This is a 73 yo female admitted for complains of SOA. Reports that she just had a LHC with possible intervention last week and AICD replacement last week as well in [facility]. She was also treated with antibiotics over there. She was discharge Thursday this week and felt increasingly SOA in the last few days. Also has been having sharp pain across her chest from right to left. she does have chronic nausea and vomiting and per her past history she has issue of continuing to eat via mouth despite having dysphagia but also utlizes tube feeding. Currently she is sitting up and still having sharp chest pain but SOA is better. She has been coughing more with thick whitish phlegm. When helped arrived in her home her o2 sat was in the 70-80s. she actually could not remember what transpired from home to the hospital. No reports of any passing out or seziures and denies any CARRERA. PAST MEDICAL HISTORY Past Medical History Cardiovascular: CAD, CHF, HTN, Syncope, Hyperlipidemia, severe MR, severe cardiomyopathy Pulmonary: COPD CENTRAL NERVOUS SYSTEM: Other GI: GERD Heme/Onc: No pertinent hx Hepatobiliary: No pertinent hx Psych: No pertinent hx Musculoskeletal: Other Rheumatologic: No pertinent hx Infectious disease: No pertinent hx Renal/: UTI Endocrine: No pertinent hx PAST SURGICAL HISTORY Past Surgical History AICD and recent replacement including leads per pt, Appendectomy, Hysterectomy, Other (coronary stents), PEG FAMILY HISTORY Family History: Coronary Artery Disease SOCIAL HISTORY Smoke: No ALCOHOL: none Drugs: None Lives: with Family CURRENT MEDICATIONS CURRENT MEDICATIONS Current Medications Medications (Trade) Dose Ordered Sig/Lisandra Route PRN Reason Start Time Stop Time Status Last Admin Dose Admin Ipratropium [place] (Atrovent) 0.5 mg 1X ONCE NEB 11/24/18 23:00 11/24/18 23:01 DC 11/24/18 23:00 Albuterol Sulfate (Ventolin Neb Soln) 10 mg 1X ONCE CONT NEB 11/24/18 23:00 11/24/18 23:01 DC 11/24/18 23:00 Aspirin (Children'S Aspirin) 324 mg 1X ONCE PO 11/24/18 23:45 11/24/18 23:46 DC 11/24/18 23:58 Furosemide (Lasix) 40 mg 1X ONCE IVP 11/25/18 00:00 11/25/18 00:01 DC 11/25/18 00:03 Levofloxacin (Levaquin) 500 mg 1X ONCE PO 11/25/18 00:00 11/25/18 00:01 DC 11/25/18 00:03 Albuterol/ Ipratropium (Duoneb) 3 ml RTQID NEB 11/25/18 08:00 11/26/18 07:59 11/25/18 07:51 Alprazolam (Xanax) 0.25 mg 1X ONCE PO 11/25/18 01:00 11/25/18 01:01 DC 11/25/18 01:00 Methylprednisolone Sodium Succinate (SOLU-Medrol 40MG VIAL) 40 mg 1X ONCE IV 11/25/18 04:00 11/25/18 04:01 DC 11/25/18 05:58 Methylprednisolone Sodium Succinate (SOLU-Medrol 40MG VIAL) 40 mg Q12HR IV 11/25/18 09:00 11/25/18 09:18 Albuterol Sulfate (Ventolin Neb Soln) 2.5 mg PRN Q4HRS PRN NEB SHORTNESS OF BREATH 11/25/18 03:45 11/25/18 03:47 ALLERGIES ALLERGIES: Coded Allergies: Penicillins (Verified Allergy, Intermediate, hives, 08/16/18) Sulfa (Sulfonamide Antibiotics) (Verified Allergy, Intermediate, hives, ) morphine (Verified Allergy, Mild, Hives, 11/25/18) ROS Review of System 14 point ROS evaluated with pertinent positives noted per HPI PHYSICAL EXAM General: Alert, Oriented X3, Cooperative, No acute distress HEENT: Atraumatic, Mucous membr. moist/pink Lungs: Other (diminished bases) Heart: Regular rate (paced ), Other (4/6 systolic murmur to apex) Abdomen: Soft, No tenderness Extremities: No cyanosis, No edema Skin: No breakdown, No significant lesion Neuro: Normal speech, Sensation intact Psych/Mental Status: Mental status NL, Mood NL MUSCULOSKELETAL: Osteoarthritic changes both hands VITALS VITALS Vital Signs Date Time Temp Pulse Resp B/P (MAP) Pulse Ox O2 Delivery O2 Flow Rate FiO2 11/25/18 07:52 100 Nasal Cannula 3.0 11/25/18 07:00 98.0 88 18 119/58 (78) 98.0 LABS Lab: Laboratory Tests Test 11/24/18 22:35 11/24/18 23:00 11/25/18 03:20 11/25/18 06:20 White Blood Count 18.0 x10^3/uL (4.0-11.0) Red Blood Count 3.87 x10^6/uL (3.50-5.40) Hemoglobin 11.3 g/dL (12.0-15.5) Hematocrit 35.7 % (36.0-47.0) Mean Corpuscular Volume 92 fL (79-100) Mean Corpuscular Hemoglobin 29 pg (25-35) Mean Corpuscular Hemoglobin Concent 32 g/dL (31-37) Red Cell Distribution Width 13.8 % (11.5-14.5) Platelet Count 452 x10^3/uL (140-400) Neutrophils (%) (Auto) 56 % (31-73) Lymphocytes (%) (Auto) 21 % (24-48) Monocytes (%) (Auto) 5 % (0-9) Eosinophils (%) (Auto) 18 % (0-3) Basophils (%) (Auto) 1 % (0-3) Neutrophils # (Auto) 10.1 x10^3uL (1.8-7.7) Lymphocytes # (Auto) 3.7 x10^3/uL (1.0-4.8) Monocytes # (Auto) 0.8 x10^3/uL (0.0-1.1) Eosinophils # (Auto) 3.2 x10^3/uL (0.0-0.7) Basophils # (Auto) 0.1 x10^3/uL (0.0-0.2) Segmented Neutrophils % 68 % (35-66) Lymphocytes % 13 % (24-48) Monocytes % 3 % (0-10) Eosinophils % 16 % (0-5) Platelet Estimate Increased (ADEQUATE) Anisocytosis Slight Sodium Level 137 mmol/L (136-145) Potassium Level 4.7 mmol/L (3.5-5.1) Chloride Level 96 mmol/L (98-107) Carbon Dioxide Level 28 mmol/L (21-32) Anion Gap 13 (6-14) Blood Urea Nitrogen 16 mg/dL (7-20) Creatinine 1.1 mg/dL (0.6-1.0) Estimated GFR (Cockcroft-Gault) 58.7 BUN/Creatinine Ratio 15 (6-20) Glucose Level 199 mg/dL (70-99) Lactic Acid Level 3.7 mmol/L (0.4-2.0) 1.6 mmol/L (0.4-2.0) Calcium Level 9.9 mg/dL (8.5-10.1) Total Bilirubin 0.7 mg/dL (0.2-1.0) Aspartate Amino Transf (AST/SGOT) 27 U/L (15-37) Alanine Aminotransferase (ALT/SGPT) 16 U/L (14-59) Alkaline Phosphatase 127 U/L (46-116) Creatine Kinase 53 U/L (26-192) Troponin I Quantitative 0.103 ng/mL (0.000-0.055) 0.948 ng/mL (0.000-0.055) 1.028 ng/mL (0.000-0.055) YI-Bfj-P-Type Natriuretic Peptide 2093 pg/mL (0-124) Total Protein 7.3 g/dL (6.4-8.2) Albumin 3.0 g/dL (3.4-5.0) Albumin/Globulin Ratio 0.7 (1.0-1.7) Urine Collection Type U cath Urine Color Yellow Urine Clarity Clear Urine pH 7.5 Urine Specific [place] 1.020 Urine Protein 100 mg/dL (NEG-TRACE) Urine Glucose (UA) Negative mg/dL (NEG) Urine Ketones (Stick) Negative mg/dL (NEG) Urine Blood Negative (NEG) Urine Nitrite Negative (NEG) Urine Bilirubin Negative (NEG) Urine Urobilinogen Dipstick 1.0 mg/dL (0.2 mg/dL) Urine Leukocyte Esterase Small (NEG) Urine RBC Occ /HPF (0-2) Urine WBC 5-10 /HPF (0-4) Urine Squamous Epithelial Cells Occ /LPF Urine Bacteria Few /HPF (0-FEW) Urine Mucus Slight /LPF ECHOCARDIOGRAM ECHOCARDIOGRAM <Conclusion> Left ventricle systolic function is severely impaired. The Ejection Fraction is 10-15%. There is severe global hypokinesis of the left ventricle. Doppler and Color-flow revealed severe mitral regurgitation. Doppler and Color Flow revealed mild tricuspid regurgitation. There is mild- moderate pulmonary hypertension. The PA pressure was estimated at 43 mmHg. DATE: 04/18/18 1311 ASSESSMENT/PLAN ASSESSMENT/PLAN 1. NSTEMI: trending up trop at 1.0, Repeat EKG paced. complains of sharp chest pain. Demand mediated vs ischemia 2. Acute on chronic systolic CHF 3. AECOPD: SOA better. 4. Severe cardiomyopathy: EF at 10-15% 5. AICD in situ: medtronic S/P replacement including lead per pt last wk 6. CAD: possibly intervention from last week. 7. Severe MR: not a surgical candidate 8. Chronic dysphagia/PEG 9. HTN: controlled Recommendations 1. TTE. ASA, continue with secondary prevention measures as tolerated. 2. Repeat troponin. Restart plavix placed at . Heparin drip per protocol. Continue with lasix therapy. 3. Remove surgical dressing right chest from failed attempt for AICD and remove left chest dressing, Discussed with RN. 4. Interrogate device. Will obtain records [facility] then will review for further recommendations. Restart PPI. . JARVIS NIEVES APRN Nov 25, 2018 10:36
[2018-11-25] MEDS ORDERED: HEPARIN 25,000UTS/500ML PREMIX 500 ML IV PRN (11:15)
[2018-11-25] MEDS ORDERED: CLOPIDOGREL BISULFATE 75 MG TABLET PO ONE (11:15)
[2018-11-25 11:28] LABS: CALCIUM 9.9 mg/dL (8.5-10.1); CREATININE 1.2 mg/dL (0.6-1.0); GFR 53.1; MAGNESIUM 1.9 mg/dL (1.8-2.4)
--- NOTE | 2018-11-25 12:13 | CARD ---
MR#: [id number] Date of Study: 11/25/2018 Ordering Physician: JARVIS NIEVES, Referring Physician: MIRANDA MORENO, Tech: Ludy Gutierrez APPROVED REPORT EXAM: Two-dimensional and M-mode echocardiogram with Doppler and color Doppler. Other Information Quality : GoodHR: 96bpm INDICATION Congestive Heart Failure Surgery/Intervention Pacemaker: RISK FACTORS Hypertension Hyperlipidemia Previous smoker 2D DIMENSIONS RVDd3.1 (2.9-3.5cm)Left Atrium(2D)2.1 (1.6-4.0cm) IVSd1.5 (0.7-1.1cm)Aortic Root(2D)3.0 (2.0-3.7cm) LVDd4.7 (3.9-5.9cm)LVOT Diameter2.0 (1.8-2.4cm) PWd1.3 (0.7-1.1cm)LVDs3.8 (2.5-4.0cm) FS (%) 20.0 %SV41.6 ml Aortic Valve AoV Peak Raulito.139.9cm/sAoV VTI19.0cm AO Peak GR.7.8mmHgLVOT Peak Raulito.107.4cm/s LVOT VTI 15.91cmAO Mean GR.4mmHg FLEX (VMAX)2.54ya9VQG (VTI)2.76cm2 Mitral Valve MV E Gqqjndpe59.5cm/sMV E Peak Gr.81mmHg MV A Slyfnltt55.0cm/sE/A Ratio0.5 TDI E/Lateral E'9.5E/Medial E'12.7 Pulmonary Valve PV Peak Qdzdhbyz484.3cm/sPV Peak Grad.5mmHg Tricuspid Valve TR P. Phptmdzz847df/sRAP ERLXUUBA3rmBg TR Peak Gr.54jzRnACTO86nmBj Pulmonary Vein S1 Xqlydbuh63.9cm/sD2 Ixnhkhmd33.8cm/s LEFT VENTRICLE The Left Ventricle is mildly dilated. There is mild to moderate concentric left ventricular hypertrop hy. The systolic function is severly impaired. The Ejection Fraction is 20-25%. There is global hypok inesis of the left ventricle. Diastolic function indeterminate. RIGHT VENTRICLE The right ventricle is normal size. There is normal right ventricular wall thickness. The right ventr icular systolic function is normal. There is a device lead in the right ventricle. ATRIA The left atrium size is normal. The right atrium size is normal. The atrial septum is aneurysmal. AORTIC VALVE The aortic valve is normal in structure and function. Doppler and Color Flow revealed no significant aortic regurgitation. There is no significant aortic valvular stenosis. MITRAL VALVE The mitral valve is thickened but opens well. There is no evidence of mitral valve prolapse. There is no mitral valve stenosis. Doppler and Color-flow revealed mild to moderate mitral regurgitation. TRICUSPID VALVE The tricuspid valve is normal in structure and function. Doppler and Color Flow revealed mild tricusp id regurgitation. There is no tricuspid valve stenosis. PULMONIC VALVE The pulmonic valve is not well visualized. Doppler and Color Flow revealed no pulmonic valvular regur gitation. GREAT VESSELS The aortic root is normal in size. The IVC was not visualized. PERICARDIAL EFFUSION There is moderate left pleural effusion measuring 4.1 cm. There is a trace pericardial effusion. Critical Notification Critical Value: No <Conclusion> The Left Ventricle is mildly dilated. The systolic function is severly impaired. The Ejection Fraction is 20-25%. There is global hypokinesis of the left ventricle. There is mild to moderate concentric left ventricular hypertrophy. There is no significant aortic valvular stenosis. Doppler and Color Flow revealed no significant aortic regurgitation. Doppler and Color-flow revealed mild to moderate mitral regurgitation. Doppler and Color Flow revealed mild tricuspid regurgitation. Signed by : Jose Issa MD Electronically Approved : 11/25/2018 12:12:40
[2018-11-25] MEDS: SPIRONOLACTONE 25 MG TABLET PO SCH (12:19)
[2018-11-25] MEDS: PANTOPRAZOLE 40 MG TABLET.DR. PO SCH (12:19)
[2018-11-25] MEDS: FUROSEMIDE 20 MG TABLET PO SCH (12:19)
[2018-11-25] MEDS: SERTRALINE 50 MG TABLET. PO SCH (12:19)
[2018-11-25] MEDS: LISINOPRIL 5 MG TABLET. PO SCH (12:20)
[2018-11-25] MEDS: CARVEDILOL 6.25 MG TABLET. PO SCH ×2 (12:20→21:24)
[2018-11-25] MEDS: ALPRAZolam 0.25 MG TABLET PO SCH ×2 (12:22→21:22)
--- NOTE | 2018-11-25 12:26 | HP ---
ADMIT DATE: 11/25/2018 CHIEF COMPLAINT: Shortness of breath. HISTORY OF PRESENT ILLNESS: The patient is a pleasant 73-year-old female who presented to ER with shortness of breath. She just had a left heart catheterization with possible intervention last week and an AICD replacement last week as well at . She was also treated with antibiotics at . She was discharged on Thursday last week. She had increasing shortness of breath. She has some associated chest pain that has been occurring for several days. While in the ER, she is noted to have some heart failure and COPD exacerbation and UTI. I have discussed the case with ER physician. We are going to admit the patient and consult Cardiology. PAST MEDICAL HISTORY: COPD, CHF, GERD, hypertension, [place], pacemaker, chronic anticoagulation, appendectomy, hysterectomy, pacemaker, PEG tube for chronic vomiting, cardiac stents, defibrillator. ALLERGIES: PENICILLIN, SULFA AND MORPHINE. FAMILY HISTORY: Coronary artery disease. SOCIAL HISTORY: She does not drink, smoke or take drugs. MEDICATIONS: Reviewed, please refer to the MRAD. REVIEW OF SYSTEMS: GENERAL: No history of weight change, weakness or fevers. SKIN: No bruising, hair changes or rashes. EYES: No blurred, double or loss of vision. NOSE AND THROAT: No history of nosebleeds, hoarseness or sore throat. HEART: No history of palpitations, chest pain or shortness of breath on exertion. LUNGS: She complains of shortness of breath. GASTROINTESTINAL: Denies changes in appetite, nausea, vomiting, diarrhea or constipation. GENITOURINARY: No history of frequency, urgency, hesitancy or nocturia. NEUROLOGIC: Denies history of numbness, tingling, tremor or weakness. PSYCHIATRIC: No history of panic, anxiety or depression. ENDOCRINE: No history of heat or cold intolerance, polyuria or polydipsia. EXTREMITIES: Denies muscle weakness, joint pain, pain on walking or stiffness. PHYSICAL EXAMINATION: VITAL SIGNS: Temperature afebrile, pulse 98, respirations 18, blood pressure 144/90. GENERAL: She is alert, cooperative. HEART: Distant S1, S2 with a soft S3. LUNGS: Bibasilar crackles. ABDOMEN: Soft, positive bowel sounds with a PEG tube. EXTREMITIES: 1+ edema. SKIN: No rashes. PSYCHIATRIC: She is stable. VASCULAR: Good capillary refill. ENDOCRINE: No thyromegaly. LYMPHATICS: No cervical nodes. LABORATORY DATA: Urinalysis shows small leukocyte esterase with 5-10 white cells. Hemoglobin is 11.3, white count 18. Electrolytes: Sodium 136, potassium 4, chloride 97, bicarbonate 28, BUN 17, creatinine 1.2, glucose 142, troponin 0.94. Chest x-ray shows vascular congestion. ASSESSMENT AND PLAN: Multifactorial respiratory failure, probably secondary to chronic obstructive pulmonary disease, congestive heart failure and perhaps she could have pneumonia, but at this point, we do not see that. We will give her IV Lasix, DuoNeb, oxygen. Home meds, PT, OT, frequent labs. Consult Cardiology and Pulmonary. AGUILAR NI DO DR: ANDRES/murali JOB#: [id number] / [id number]
[2018-11-25] MEDS ORDERED: LIDO:MAALOX 1:1 20 ML SINGLE DOSE. SWSW ONE (14:15)
[2018-11-25] MEDS: LIDOCAINE (700MG/PATCH) PATCH. TD SCH (14:31)
[2018-11-25] MEDS: ACETAMINOPHEN 325 MG TABLET. PO PRN ×2 (14:31→21:23)
[2018-11-25] MEDS: CLINDAMYCIN 600MG PREMIX 50 ML IV SCH ×2 (14:31→22:53)
--- NOTE | 2018-11-25 19:49 | CONS ---
DATE OF CONSULTATION: 11/25/2018 ATTENDING PHYSICIAN: Dr. Seay. REASON FOR CONSULTATION: The patient seen in pulmonary consultation at the request of Dr. Seay for increasing shortness of air. HISTORY OF PRESENT ILLNESS: The patient is a 73-year-old female with a history of ischemic cardiomyopathy, 15% ejection fraction, COPD, chronic aspiration, severe malnutrition, status post PEG tube placement. She normally takes nutrients per mouth and per PEG. The patient became short of breath. She does not recall anything other than becoming short of breath and the next thing she knew she was in the hospital. She had some chest discomfort. She has been seen by Cardiology and is currently being treated for a non-ST segment elevation [place]. She is on IV heparin. An echocardiogram is currently pending. The patient denies fever, chills, nausea, vomiting. PAST MEDICAL HISTORY: 1. Remarkable for COPD, chronic respiratory failure. She has had persistent abnormal x-ray. 2. Eating disorder, status post PEG tube placement. 3. Coronary artery disease, cardiomyopathy, ejection fraction of 15%. 4. Hypertension. 5. Dysphagia. 6. Previous myocardial infarction. ALLERGIES: SULFA. REVIEW OF SYSTEMS: CONSTITUTIONAL: No fever or chills. EYES: No change in visual acuity. HEENT: No nasal congestion or sore throat. PULMONARY: As indicated above. CARDIOVASCULAR: No chest pain. No pressure. GASTROINTESTINAL: No nausea, vomiting, diarrhea. GENITOURINARY: No dysuria or frequency. MUSCULOSKELETAL: No localized muscle aches or joint pains. SKIN: No new skin rashes. CURRENT MEDICATIONS: List reviewed. ALLERGIES: PENICILLIN AND SULFA ALONG WITH MORPHINE. PHYSICAL EXAMINATION: VITAL SIGNS: On examination, the patient since admission has been afebrile. She is currently on 3 liters of oxygen supplementation. HEENT: Eyes, the sclerae were nonicteric. NECK: Jugular venous distention was not elevated. No lymphadenopathy. CHEST: Full expansion. LUNGS: Crackles throughout both lung alvarez, unchanged from previous exam. CARDIOVASCULAR: Regular rate and rhythm with S1, S2, no S3. ABDOMEN: Soft, nontender, nondistended. EXTREMITIES: No clubbing, cyanosis or edema. LABORATORY DATA: Chest x-ray reveals some vascular congestion compatible with CHF. White count was 18,000, hemoglobin and hematocrit were noted. UA was noted. IMPRESSION: 1. Acute on chronic respiratory failure. 2. Chronic obstructive pulmonary disease exacerbation. 3. Acute on chronic systolic heart failure. 4. Possible pneumonia. 5. Non-ST segment elevation myocardial infarction. 6. Eating disorder/bulimia. PLAN: 1. Follow Cardiology input. 2. Empiric antibiotics. 3. Steroids. 4. Nebulized treatments. I do appreciate the privilege in sharing this patient's care. REGGIE CONTRERAS MD DR: CAROLA/murali JOB#: [id number] / [id number]
[2018-11-25] MEDS: BUDESONIDE 0.5 MG/2 ML NEBU. NEB SCH (20:30)
[2018-11-25] MEDS ORDERED: NON FORMULARY ITEM (Fluticasone Propionate (Flovent 110MCG Hfa) 2 PUFF) IH SCH (21:00)
[2018-11-25] MEDS: PATCH REMOVAL. MC SCH (21:00)
[2018-11-25] MEDS: oxyCODONE IR 5 MG TABLET PO PRN (21:22)
[2018-11-25] MEDS: ATORVASTATIN CALCIUM 40 MG TABLET. PO SCH (21:23)
[2018-11-25] MEDS: CHOLECALCIFEROL (VITAMIN D3) 1,000 UNIT TABLET PO SCH (21:23)
[2018-11-25] MEDS: HEPARIN for IV BOLUS 10,000 UNIT/10 ML VIAL. IV PRN (22:57)
[2018-11-26] MEDS: ALBUTEROL SULFATE 2.5 MG/3 ML NEBU. NEB PRN (02:53)
[2018-11-26 03:52] VITALS: BP 130/61
[2018-11-26 05:03] LABS: BASO % 0 % (0-3); EOS % 0 % (0-3); HEMATOCRIT 30.1 % (36.0-47.0); LYMPH # 0.9 x10^3/uL (1.0-4.8); LYMPH % 5 % (24-48); MEAN CORPUSCULAR HEMOGLOBIN 30 pg (25-35); MEAN CORPUSCULAR HGB CONC 33 g/dL (31-37); MEAN CORPUSCULAR VOLUME 90 fL (79-100); MONO # 0.7 x10^3/uL (0.0-1.1); MONO % 4 % (0-9); NEUT # 15.8 x10^3uL (1.8-7.7); NEUT % 91 % (31-73); PLATELET COUNT 391 x10^3/uL (140-400); RED BLOOD COUNT 3.34 x10^6/uL (3.50-5.40); RED CELL DISTRIBUTION WIDTH 13.6 % (11.5-14.5); WHITE BLOOD COUNT 17.5 x10^3/uL (4.0-11.0)
[2018-11-26 05:23] LABS: ALBUMIN 2.5 g/dL (3.4-5.0); ALBUMIN/GLOBULIN RATIO 0.6 (1.0-1.7); CALCIUM 9.4 mg/dL (8.5-10.1); GFR 65.6; POTASSIUM 3.9 mmol/L (3.5-5.1); TOTAL BILIRUBIN 0.3 mg/dL (0.2-1.0); TOTAL PROTEIN 6.6 g/dL (6.4-8.2)
[2018-11-26] MEDS: CLINDAMYCIN 600MG PREMIX 50 ML IV SCH ×3 (05:32→21:18)
[2018-11-26] MEDS: HEPARIN for IV BOLUS 10,000 UNIT/10 ML VIAL. IV PRN ×2 (05:39→13:26)
[2018-11-26 07:00] VITALS: BP 133/66
[2018-11-26] MEDS: IPRATRPIUM/ALBUTEROL 0.5/2.5MG 3 ML NEBU. NEB SCH ×4 (07:19→20:00)
--- NOTE | 2018-11-26 08:43 | PDOC ---
PULMONARY PROGRESS NOTES Subjective PT FEELS BETTER Vitals Vital Signs Date Time Temp Pulse Resp B/P (MAP) Pulse Ox O2 Delivery O2 Flow Rate FiO2 11/26/18 07:19 97 Nasal Cannula 3.0 11/26/18 07:00 97.7 81 17 133/66 (88) 97.7 ROS: No Nausea, No Chest Pain, No Abdominal Pain, No Increase Cough General: Alert, No acute distress Lungs: Crackles, Other Cardiovascular: S1, S2 Abdomen: Soft, Non-tender Neuro Exam: Alert Extremities: No Edema Skin: Warm Labs Laboratory Tests Test 11/24/18 22:35 11/24/18 23:00 11/25/18 03:20 11/25/18 06:20 White Blood Count 18.0 x10^3/uL (4.0-11.0) Red Blood Count 3.87 x10^6/uL (3.50-5.40) Hemoglobin 11.3 g/dL (12.0-15.5) Hematocrit 35.7 % (36.0-47.0) Mean Corpuscular Volume 92 fL (79-100) Mean Corpuscular Hemoglobin 29 pg (25-35) Mean Corpuscular Hemoglobin Concent 32 g/dL (31-37) Red Cell Distribution Width 13.8 % (11.5-14.5) Platelet Count 452 x10^3/uL (140-400) Neutrophils (%) (Auto) 56 % (31-73) Lymphocytes (%) (Auto) 21 % (24-48) Monocytes (%) (Auto) 5 % (0-9) Eosinophils (%) (Auto) 18 % (0-3) Basophils (%) (Auto) 1 % (0-3) Neutrophils # (Auto) 10.1 x10^3uL (1.8-7.7) Lymphocytes # (Auto) 3.7 x10^3/uL (1.0-4.8) Monocytes # (Auto) 0.8 x10^3/uL (0.0-1.1) Eosinophils # (Auto) 3.2 x10^3/uL (0.0-0.7) Basophils # (Auto) 0.1 x10^3/uL (0.0-0.2) Segmented Neutrophils % 68 % (35-66) Lymphocytes % 13 % (24-48) Monocytes % 3 % (0-10) Eosinophils % 16 % (0-5) Platelet Estimate Increased (ADEQUATE) Anisocytosis Slight Sodium Level 137 mmol/L (136-145) Potassium Level 4.7 mmol/L (3.5-5.1) Chloride Level 96 mmol/L (98-107) Carbon Dioxide Level 28 mmol/L (21-32) Anion Gap 13 (6-14) Blood Urea Nitrogen 16 mg/dL (7-20) Creatinine 1.1 mg/dL (0.6-1.0) Estimated GFR (Cockcroft-Gault) 58.7 BUN/Creatinine Ratio 15 (6-20) Glucose Level 199 mg/dL (70-99) Lactic Acid Level 3.7 mmol/L (0.4-2.0) 1.6 mmol/L (0.4-2.0) Calcium Level 9.9 mg/dL (8.5-10.1) Total Bilirubin 0.7 mg/dL (0.2-1.0) Aspartate Amino Transf (AST/SGOT) 27 U/L (15-37) Alanine Aminotransferase (ALT/SGPT) 16 U/L (14-59) Alkaline Phosphatase 127 U/L (46-116) Creatine Kinase 53 U/L (26-192) Troponin I Quantitative 0.103 ng/mL (0.000-0.055) 0.948 ng/mL (0.000-0.055) 1.028 ng/mL (0.000-0.055) CF-Imq-Z-Type Natriuretic Peptide 2093 pg/mL (0-124) Total Protein 7.3 g/dL (6.4-8.2) Albumin 3.0 g/dL (3.4-5.0) Albumin/Globulin Ratio 0.7 (1.0-1.7) Urine Collection Type U cath Urine Color Yellow Urine Clarity Clear Urine pH 7.5 Urine Specific [place] 1.020 Urine Protein 100 mg/dL (NEG-TRACE) Urine Glucose (UA) Negative mg/dL (NEG) Urine Ketones (Stick) Negative mg/dL (NEG) Urine Blood Negative (NEG) Urine Nitrite Negative (NEG) Urine Bilirubin Negative (NEG) Urine Urobilinogen Dipstick 1.0 mg/dL (0.2 mg/dL) Urine Leukocyte Esterase Small (NEG) Urine RBC Occ /HPF (0-2) Urine WBC 5-10 /HPF (0-4) Urine Squamous Epithelial Cells Occ /LPF Urine Bacteria Few /HPF (0-FEW) Urine Mucus Slight /LPF Test 11/25/18 11:05 11/25/18 18:45 11/26/18 04:30 Sodium Level 136 mmol/L (136-145) 134 mmol/L (136-145) Potassium Level 4.0 mmol/L (3.5-5.1) 3.9 mmol/L (3.5-5.1) Chloride Level 97 mmol/L (98-107) 98 mmol/L (98-107) Carbon Dioxide Level 28 mmol/L (21-32) 28 mmol/L (21-32) Anion Gap 11 (6-14) 8 (6-14) Blood Urea Nitrogen 17 mg/dL (7-20) 24 mg/dL (7-20) Creatinine 1.2 mg/dL (0.6-1.0) 1.0 mg/dL (0.6-1.0) Estimated GFR (Cockcroft-Gault) 53.1 65.6 Glucose Level 142 mg/dL (70-99) 169 mg/dL (70-99) Calcium Level 9.9 mg/dL (8.5-10.1) 9.4 mg/dL (8.5-10.1) Magnesium Level 1.9 mg/dL (1.8-2.4) Troponin I Quantitative 1.121 ng/mL (0.000-0.055) Heparin Anti-Xa Act, Unfractionated < 0.10 IU/mL (0.30-0.70) 0.24 IU/mL (0.30-0.70) White Blood Count 17.5 x10^3/uL (4.0-11.0) Red Blood Count 3.34 x10^6/uL (3.50-5.40) Hemoglobin 10.0 g/dL (12.0-15.5) Hematocrit 30.1 % (36.0-47.0) Mean Corpuscular Volume 90 fL (79-100) Mean Corpuscular Hemoglobin 30 pg (25-35) Mean Corpuscular Hemoglobin Concent 33 g/dL (31-37) Red Cell Distribution Width 13.6 % (11.5-14.5) Platelet Count 391 x10^3/uL (140-400) Neutrophils (%) (Auto) 91 % (31-73) Lymphocytes (%) (Auto) 5 % (24-48) Monocytes (%) (Auto) 4 % (0-9) Eosinophils (%) (Auto) 0 % (0-3) Basophils (%) (Auto) 0 % (0-3) Neutrophils # (Auto) 15.8 x10^3uL (1.8-7.7) Lymphocytes # (Auto) 0.9 x10^3/uL (1.0-4.8) Monocytes # (Auto) 0.7 x10^3/uL (0.0-1.1) Eosinophils # (Auto) 0.0 x10^3/uL (0.0-0.7) Basophils # (Auto) 0.0 x10^3/uL (0.0-0.2) BUN/Creatinine Ratio 24 (6-20) Total Bilirubin 0.3 mg/dL (0.2-1.0) Aspartate Amino Transf (AST/SGOT) 16 U/L (15-37) Alanine Aminotransferase (ALT/SGPT) 14 U/L (14-59) Alkaline Phosphatase 100 U/L (46-116) Total Protein 6.6 g/dL (6.4-8.2) Albumin 2.5 g/dL (3.4-5.0) Albumin/Globulin Ratio 0.6 (1.0-1.7) Laboratory Tests Test 11/25/18 11:05 11/25/18 18:45 11/26/18 04:30 Sodium Level 136 mmol/L (136-145) 134 mmol/L (136-145) Potassium Level 4.0 mmol/L (3.5-5.1) 3.9 mmol/L (3.5-5.1) Chloride Level 97 mmol/L (98-107) 98 mmol/L (98-107) Carbon Dioxide Level 28 mmol/L (21-32) 28 mmol/L (21-32) Anion Gap 11 (6-14) 8 (6-14) Blood Urea Nitrogen 17 mg/dL (7-20) 24 mg/dL (7-20) Creatinine 1.2 mg/dL (0.6-1.0) 1.0 mg/dL (0.6-1.0) Estimated GFR (Cockcroft-Gault) 53.1 65.6 Glucose Level 142 mg/dL (70-99) 169 mg/dL (70-99) Calcium Level 9.9 mg/dL (8.5-10.1) 9.4 mg/dL (8.5-10.1) Magnesium Level 1.9 mg/dL (1.8-2.4) Troponin I Quantitative 1.121 ng/mL (0.000-0.055) Heparin Anti-Xa Act, Unfractionated < 0.10 IU/mL (0.30-0.70) 0.24 IU/mL (0.30-0.70) White Blood Count 17.5 x10^3/uL (4.0-11.0) Red Blood Count 3.34 x10^6/uL (3.50-5.40) Hemoglobin 10.0 g/dL (12.0-15.5) Hematocrit 30.1 % (36.0-47.0) Mean Corpuscular Volume 90 fL (79-100) Mean Corpuscular Hemoglobin 30 pg (25-35) Mean Corpuscular Hemoglobin Concent 33 g/dL (31-37) Red Cell Distribution Width 13.6 % (11.5-14.5) Platelet Count 391 x10^3/uL (140-400) Neutrophils (%) (Auto) 91 % (31-73) Lymphocytes (%) (Auto) 5 % (24-48) Monocytes (%) (Auto) 4 % (0-9) Eosinophils (%) (Auto) 0 % (0-3) Basophils (%) (Auto) 0 % (0-3) Neutrophils # (Auto) 15.8 x10^3uL (1.8-7.7) Lymphocytes # (Auto) 0.9 x10^3/uL (1.0-4.8) Monocytes # (Auto) 0.7 x10^3/uL (0.0-1.1) Eosinophils # (Auto) 0.0 x10^3/uL (0.0-0.7) Basophils # (Auto) 0.0 x10^3/uL (0.0-0.2) BUN/Creatinine Ratio 24 (6-20) Total Bilirubin 0.3 mg/dL (0.2-1.0) Aspartate Amino Transf (AST/SGOT) 16 U/L (15-37) Alanine Aminotransferase (ALT/SGPT) 14 U/L (14-59) Alkaline Phosphatase 100 U/L (46-116) Total Protein 6.6 g/dL (6.4-8.2) Albumin 2.5 g/dL (3.4-5.0) Albumin/Globulin Ratio 0.6 (1.0-1.7) Medications Active Scripts Medications Dose Route/Sig Max Daily Dose Days Date Category Alprazolam 0.25 Mg Tablet 1 Tab PO TID 11/25/18 Reported Flovent 110MCG Hfa (Fluticasone Propionate) 12 Gm Aer.w.adap 2 Puff IH BID 11/25/18 Reported Spironolactone 25 Mg Tablet 1 Tab PO DAILY 11/25/18 Reported Protonix (Pantoprazole Sodium) 20 Mg Tablet.dr 40 Mg PO DAILY 11/25/18 Reported Oxycodone Hcl 5 Mg/5 Ml Solution 5 Mg PO PRN Q4HRS PRN 11/25/18 Reported Lisinopril 2.5 Mg Tablet 2.5 Mg PO DAILY 11/25/18 Reported Guaifenesin 600 Mg Tablet.er 600 Mg PO BID 11/25/18 Reported Sertraline Hcl 50 Mg Tablet 50 Mg PO DAILY 11/25/18 Reported Lasix (Furosemide) 20 Mg Tablet 1 Tab PO DAILY 10/04/18 Rx Proair Hfa Inhaler (Albuterol Sulfate) 8.5 Gm Hfa.aer.ad 1 Puff INH PRN Q6HRS PRN 14 10/04/18 Rx Tramadol Hcl 50 Mg Tablet 1 Tab PO PRN Q6HRS PRN 08/13/18 Reported Duoneb 0.5-3(2.5) Mg/3 Ml (Albuterol/Ipratropium) 3 Ml Ampul.neb 3 Ml NEB QID 04/17/18 Reported Zofran (Ondansetron Hcl) 4 Mg Tablet 1 Tab PO Q8HRS PRN 05/19/16 Rx Atorvastatin Calcium 40 Mg Tablet 40 Mg PO HS 09/24/15 Reported Carvedilol (Carvedilol) 6.25 Mg Tablet 6.25 Mg PO BIDWMEALS 09/24/15 Reported Vitamin D (Cholecalciferol (Vitamin D3)) 2,000 Unit Capsule 2,000 Unit PO BIDAFTMEAL 01/07/15 Reported Aspirin Ec (Aspirin) 325 Mg Tablet.dr 325 Mg PO DAILY 01/07/15 Reported Impression . IMPRESSION: 1. Acute on chronic respiratory failure. 2. Chronic obstructive pulmonary disease exacerbation. 3. Acute on chronic systolic heart failure. 4. Possible pneumonia. 5. Non-ST segment elevation myocardial infarction. 6. Eating disorder/bulimia. Impression: Slight prominence of the pulmonary vasculature is seen which could reflect mild CHF. Plan . PT BETTER FOLLOW CARD INPUT ANTIBX STEROIDS REGGIE CONTRERAS MD Nov 26, 2018 08:43
[2018-11-26] MEDS: ALPRAZolam 0.25 MG TABLET PO SCH ×3 (09:16→21:19)
[2018-11-26] MEDS: CHOLECALCIFEROL (VITAMIN D3) 1,000 UNIT TABLET PO SCH ×2 (09:16→17:35)
[2018-11-26] MEDS: methylPREDNISolone SOD SUCC PF 40 MG/ML VIAL. IV SCH ×2 (09:16→21:19)
[2018-11-26] MEDS: PANTOPRAZOLE 40 MG TABLET.DR. PO SCH (09:16)
[2018-11-26] MEDS: ASPIRIN 325 MG TABLET PO SCH (09:16)
[2018-11-26] MEDS: LISINOPRIL 5 MG TABLET. PO SCH (09:17)
[2018-11-26] MEDS: SERTRALINE 50 MG TABLET. PO SCH (09:17)
[2018-11-26] MEDS: SPIRONOLACTONE 25 MG TABLET PO SCH (09:17)
[2018-11-26] MEDS: FUROSEMIDE 20 MG TABLET PO SCH (09:18)
[2018-11-26] MEDS: CLOPIDOGREL BISULFATE 75 MG TABLET PO SCH (09:18)
[2018-11-26] MEDS: CARVEDILOL 6.25 MG TABLET. PO SCH ×2 (09:18→17:35)
[2018-11-26] MEDS: oxyCODONE IR 5 MG TABLET PO PRN (09:19)
[2018-11-26] MEDS: LIDOCAINE (700MG/PATCH) PATCH. TD SCH (09:23)
[2018-11-26] MEDS: ONDANSETRON PF 4 MG/2 ML VIAL. IV PRN (10:14)
[2018-11-26 11:03] VITALS: BP 116/55
[2018-11-26] MEDS: BUDESONIDE 0.5 MG/2 ML NEBU. NEB SCH ×2 (11:08→20:57)
--- NOTE | 2018-11-26 11:48 | PDOC ---
CARDIO Progress Notes Date and Time Date of Service 11/26/18 Time of Evaluation 1110 Subjective Subjective: No Chest Pain, No Palpitations, Other (SOA improved) Vitals Vitals Vital Signs Date Time Temp Pulse Resp B/P (MAP) Pulse Ox O2 Delivery O2 Flow Rate FiO2 11/26/18 11:09 100 Nasal Cannula 3.0 11/26/18 11:03 97.7 89 17 116/55 (75) 97.7 Weight Weight [ ] Input and Output Intake and Output Intake and Output 11/26/18 07:00 Intake Total 740 ml Balance 740 ml Intake Oral 200 ml IV Total 200 ml Tube Feeding 240 ml Other 100 ml Laboratory Labs Laboratory Tests Test 11/25/18 18:45 11/26/18 04:30 Heparin Anti-Xa Act, Unfractionated < 0.10 IU/mL (0.30-0.70) 0.24 IU/mL (0.30-0.70) White Blood Count 17.5 x10^3/uL (4.0-11.0) Red Blood Count 3.34 x10^6/uL (3.50-5.40) Hemoglobin 10.0 g/dL (12.0-15.5) Hematocrit 30.1 % (36.0-47.0) Mean Corpuscular Volume 90 fL (79-100) Mean Corpuscular Hemoglobin 30 pg (25-35) Mean Corpuscular Hemoglobin Concent 33 g/dL (31-37) Red Cell Distribution Width 13.6 % (11.5-14.5) Platelet Count 391 x10^3/uL (140-400) Neutrophils (%) (Auto) 91 % (31-73) Lymphocytes (%) (Auto) 5 % (24-48) Monocytes (%) (Auto) 4 % (0-9) Eosinophils (%) (Auto) 0 % (0-3) Basophils (%) (Auto) 0 % (0-3) Neutrophils # (Auto) 15.8 x10^3uL (1.8-7.7) Lymphocytes # (Auto) 0.9 x10^3/uL (1.0-4.8) Monocytes # (Auto) 0.7 x10^3/uL (0.0-1.1) Eosinophils # (Auto) 0.0 x10^3/uL (0.0-0.7) Basophils # (Auto) 0.0 x10^3/uL (0.0-0.2) Sodium Level 134 mmol/L (136-145) Potassium Level 3.9 mmol/L (3.5-5.1) Chloride Level 98 mmol/L (98-107) Carbon Dioxide Level 28 mmol/L (21-32) Anion Gap 8 (6-14) Blood Urea Nitrogen 24 mg/dL (7-20) Creatinine 1.0 mg/dL (0.6-1.0) Estimated GFR (Cockcroft-Gault) 65.6 BUN/Creatinine Ratio 24 (6-20) Glucose Level 169 mg/dL (70-99) Calcium Level 9.4 mg/dL (8.5-10.1) Total Bilirubin 0.3 mg/dL (0.2-1.0) Aspartate Amino Transf (AST/SGOT) 16 U/L (15-37) Alanine Aminotransferase (ALT/SGPT) 14 U/L (14-59) Alkaline Phosphatase 100 U/L (46-116) Troponin I Quantitative 0.492 ng/mL (0.000-0.055) Total Protein 6.6 g/dL (6.4-8.2) Albumin 2.5 g/dL (3.4-5.0) Albumin/Globulin Ratio 0.6 (1.0-1.7) Microbiology Micro Microbiology 11/24/18 Blood Culture - Preliminary, Resulted NO GROWTH AFTER 1 DAY Physical Exam HEENT: Neck Supple W Full Motion Chest: Symmetric LUNGS: Other (coarse throughout ) Heart: S1S2, RRR Abdomen: Soft N/T Extremities: No Edema Neurology: alert, oriented, follow commands Assessment Assessment 1. NSTEMI: trop peak 1.121. Cardiac cath 11/12/18 as noted below. 2. Acute on chronic systolic CHF; appears compensated 3. CAD: s/p PCI/stent to RCA in 2014. 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 No intervention performed. 4. AECOPD and possible PNA. SOA improved. Continue as per pulmoary. 5. Severe cardiomyopathy: LVEF at 10-15% 6. AICD in situ; ([employer]). s/p upgrade to CONTENT ASSISTANT-D last week with epicardial lead placement by CTS. Device interrogation without any acute abnormalities 7. HTN: controlled 8. Severe MR: not a surgical candidate 9. Chronic dysphagia; s/p PEG Recommendations Secondary prevention including DAPT with ASA and Plavix Discontinue heparin gtt after 24 hours. Continue optimization therapy including ACEi, BB, and lasix. Supportive care Records obtained from Cardiac catheterization 11/12/18 Conclusion 1. CAD with mild disease of the left coronary system and a focal area of in- stent restenosis of 70% in the RCA 2. 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 Slightly low cardiac output Taken for upgrade of pacemaker to CONTENT ASSISTANT-D with unsuccessful in placing the LV lead. Was taken 11/17/18 for epicardial lead placement with CTS OSCAR CORRAL APRN Nov 26, 2018 11:48
--- NOTE | 2018-11-26 11:54 | PDOC ---
PROGRESS NOTES Chief Complaint Chief Complaint NSTEMI CHF UTI COPD GERD Hypertension Pacemaker PEG tube for chronic vomiting Cardiac stents Defibrillator History of Present Illness History of Present Illness Patient was seen and examined in her room this morning. PEG tube in place. Her troponin trended upwards last night, most recently 1.121. Her BNP is 2093. She continues to note some shortness of breath. Currently on empiric IV clindamycin. Cardiology and pulmonary following. Awaiting previous records from [facility]. Discussed with RN. Vitals Vitals Vital Signs Date Time Temp Pulse Resp B/P (MAP) Pulse Ox O2 Delivery O2 Flow Rate FiO2 11/26/18 11:09 100 Nasal Cannula 3.0 11/26/18 11:03 97.7 89 17 116/55 (75) 97.7 Physical Exam General: Alert, Oriented X3, Cooperative, No acute distress Heart: Regular rate (paced ), Normal S1, Normal S2, Other (4/6 systolic murmur to apex) Lungs: Crackles, Other (no rhonchi) Abdomen: Soft, No tenderness Extremities: No cyanosis, No edema Skin: No rashes, No breakdown, No significant lesion Labs LABS Laboratory Tests Test 11/25/18 18:45 11/26/18 04:30 Heparin Anti-Xa Act, Unfractionated < 0.10 IU/mL (0.30-0.70) 0.24 IU/mL (0.30-0.70) White Blood Count 17.5 x10^3/uL (4.0-11.0) Red Blood Count 3.34 x10^6/uL (3.50-5.40) Hemoglobin 10.0 g/dL (12.0-15.5) Hematocrit 30.1 % (36.0-47.0) Mean Corpuscular Volume 90 fL (79-100) Mean Corpuscular Hemoglobin 30 pg (25-35) Mean Corpuscular Hemoglobin Concent 33 g/dL (31-37) Red Cell Distribution Width 13.6 % (11.5-14.5) Platelet Count 391 x10^3/uL (140-400) Neutrophils (%) (Auto) 91 % (31-73) Lymphocytes (%) (Auto) 5 % (24-48) Monocytes (%) (Auto) 4 % (0-9) Eosinophils (%) (Auto) 0 % (0-3) Basophils (%) (Auto) 0 % (0-3) Neutrophils # (Auto) 15.8 x10^3uL (1.8-7.7) Lymphocytes # (Auto) 0.9 x10^3/uL (1.0-4.8) Monocytes # (Auto) 0.7 x10^3/uL (0.0-1.1) Eosinophils # (Auto) 0.0 x10^3/uL (0.0-0.7) Basophils # (Auto) 0.0 x10^3/uL (0.0-0.2) Sodium Level 134 mmol/L (136-145) Potassium Level 3.9 mmol/L (3.5-5.1) Chloride Level 98 mmol/L (98-107) Carbon Dioxide Level 28 mmol/L (21-32) Anion Gap 8 (6-14) Blood Urea Nitrogen 24 mg/dL (7-20) Creatinine 1.0 mg/dL (0.6-1.0) Estimated GFR (Cockcroft-Gault) 65.6 BUN/Creatinine Ratio 24 (6-20) Glucose Level 169 mg/dL (70-99) Calcium Level 9.4 mg/dL (8.5-10.1) Total Bilirubin 0.3 mg/dL (0.2-1.0) Aspartate Amino Transf (AST/SGOT) 16 U/L (15-37) Alanine Aminotransferase (ALT/SGPT) 14 U/L (14-59) Alkaline Phosphatase 100 U/L (46-116) Troponin I Quantitative 0.492 ng/mL (0.000-0.055) Total Protein 6.6 g/dL (6.4-8.2) Albumin 2.5 g/dL (3.4-5.0) Albumin/Globulin Ratio 0.6 (1.0-1.7) Review of Systems Review of Systems Complains of nausea, weakness, and shortness of breath. Denies fever or cough. Assessment and Plan Assessmemt and Plan Assessment: NSTEMI CHF UTI COPD GERD Hypertension Pacemaker PEG tube for chronic vomiting Cardiac stents Defibrillator Plan: 1. Cardiac monitoring 2. Empiric IV clindamycin 3. PO Lasix 4. Awaiting records from 5. [facility] 6. Home meds 7. PT/OT 8. Monitor labs 9. Oxygen via [place] 10. Appreciate cardiology input Comment Review of Relevant I have reviewed the following items loren (where applicable) has been applied. Labs Laboratory Tests Test 11/24/18 22:35 11/24/18 23:00 11/25/18 03:20 11/25/18 06:20 White Blood Count 18.0 x10^3/uL (4.0-11.0) Red Blood Count 3.87 x10^6/uL (3.50-5.40) Hemoglobin 11.3 g/dL (12.0-15.5) Hematocrit 35.7 % (36.0-47.0) Mean Corpuscular Volume 92 fL (79-100) Mean Corpuscular Hemoglobin 29 pg (25-35) Mean Corpuscular Hemoglobin Concent 32 g/dL (31-37) Red Cell Distribution Width 13.8 % (11.5-14.5) Platelet Count 452 x10^3/uL (140-400) Neutrophils (%) (Auto) 56 % (31-73) Lymphocytes (%) (Auto) 21 % (24-48) Monocytes (%) (Auto) 5 % (0-9) Eosinophils (%) (Auto) 18 % (0-3) Basophils (%) (Auto) 1 % (0-3) Neutrophils # (Auto) 10.1 x10^3uL (1.8-7.7) Lymphocytes # (Auto) 3.7 x10^3/uL (1.0-4.8) Monocytes # (Auto) 0.8 x10^3/uL (0.0-1.1) Eosinophils # (Auto) 3.2 x10^3/uL (0.0-0.7) Basophils # (Auto) 0.1 x10^3/uL (0.0-0.2) Segmented Neutrophils % 68 % (35-66) Lymphocytes % 13 % (24-48) Monocytes % 3 % (0-10) Eosinophils % 16 % (0-5) Platelet Estimate Increased (ADEQUATE) Anisocytosis Slight Sodium Level 137 mmol/L (136-145) Potassium Level 4.7 mmol/L (3.5-5.1) Chloride Level 96 mmol/L (98-107) Carbon Dioxide Level 28 mmol/L (21-32) Anion Gap 13 (6-14) Blood Urea Nitrogen 16 mg/dL (7-20) Creatinine 1.1 mg/dL (0.6-1.0) Estimated GFR (Cockcroft-Gault) 58.7 BUN/Creatinine Ratio 15 (6-20) Glucose Level 199 mg/dL (70-99) Lactic Acid Level 3.7 mmol/L (0.4-2.0) 1.6 mmol/L (0.4-2.0) Calcium Level 9.9 mg/dL (8.5-10.1) Total Bilirubin 0.7 mg/dL (0.2-1.0) Aspartate Amino Transf (AST/SGOT) 27 U/L (15-37) Alanine Aminotransferase (ALT/SGPT) 16 U/L (14-59) Alkaline Phosphatase 127 U/L (46-116) Creatine Kinase 53 U/L (26-192) Troponin I Quantitative 0.103 ng/mL (0.000-0.055) 0.948 ng/mL (0.000-0.055) 1.028 ng/mL (0.000-0.055) HB-Oiz-I-Type Natriuretic Peptide 2093 pg/mL (0-124) Total Protein 7.3 g/dL (6.4-8.2) Albumin 3.0 g/dL (3.4-5.0) Albumin/Globulin Ratio 0.7 (1.0-1.7) Urine Collection Type U cath Urine Color Yellow Urine Clarity Clear Urine pH 7.5 Urine Specific [place] 1.020 Urine Protein 100 mg/dL (NEG-TRACE) Urine Glucose (UA) Negative mg/dL (NEG) Urine Ketones (Stick) Negative mg/dL (NEG) Urine Blood Negative (NEG) Urine Nitrite Negative (NEG) Urine Bilirubin Negative (NEG) Urine Urobilinogen Dipstick 1.0 mg/dL (0.2 mg/dL) Urine Leukocyte Esterase Small (NEG) Urine RBC Occ /HPF (0-2) Urine WBC 5-10 /HPF (0-4) Urine Squamous Epithelial Cells Occ /LPF Urine Bacteria Few /HPF (0-FEW) Urine Mucus Slight /LPF Test 11/25/18 11:05 11/25/18 18:45 11/26/18 04:30 Sodium Level 136 mmol/L (136-145) 134 mmol/L (136-145) Potassium Level 4.0 mmol/L (3.5-5.1) 3.9 mmol/L (3.5-5.1) Chloride Level 97 mmol/L (98-107) 98 mmol/L (98-107) Carbon Dioxide Level 28 mmol/L (21-32) 28 mmol/L (21-32) Anion Gap 11 (6-14) 8 (6-14) Blood Urea Nitrogen 17 mg/dL (7-20) 24 mg/dL (7-20) Creatinine 1.2 mg/dL (0.6-1.0) 1.0 mg/dL (0.6-1.0) Estimated GFR (Cockcroft-Gault) 53.1 65.6 Glucose Level 142 mg/dL (70-99) 169 mg/dL (70-99) Calcium Level 9.9 mg/dL (8.5-10.1) 9.4 mg/dL (8.5-10.1) Magnesium Level 1.9 mg/dL (1.8-2.4) Troponin I Quantitative 1.121 ng/mL (0.000-0.055) 0.492 ng/mL (0.000-0.055) Heparin Anti-Xa Act, Unfractionated < 0.10 IU/mL (0.30-0.70) 0.24 IU/mL (0.30-0.70) White Blood Count 17.5 x10^3/uL (4.0-11.0) Red Blood Count 3.34 x10^6/uL (3.50-5.40) Hemoglobin 10.0 g/dL (12.0-15.5) Hematocrit 30.1 % (36.0-47.0) Mean Corpuscular Volume 90 fL (79-100) Mean Corpuscular Hemoglobin 30 pg (25-35) Mean Corpuscular Hemoglobin Concent 33 g/dL (31-37) Red Cell Distribution Width 13.6 % (11.5-14.5) Platelet Count 391 x10^3/uL (140-400) Neutrophils (%) (Auto) 91 % (31-73) Lymphocytes (%) (Auto) 5 % (24-48) Monocytes (%) (Auto) 4 % (0-9) Eosinophils (%) (Auto) 0 % (0-3) Basophils (%) (Auto) 0 % (0-3) Neutrophils # (Auto) 15.8 x10^3uL (1.8-7.7) Lymphocytes # (Auto) 0.9 x10^3/uL (1.0-4.8) Monocytes # (Auto) 0.7 x10^3/uL (0.0-1.1) Eosinophils # (Auto) 0.0 x10^3/uL (0.0-0.7) Basophils # (Auto) 0.0 x10^3/uL (0.0-0.2) BUN/Creatinine Ratio 24 (6-20) Total Bilirubin 0.3 mg/dL (0.2-1.0) Aspartate Amino Transf (AST/SGOT) 16 U/L (15-37) Alanine Aminotransferase (ALT/SGPT) 14 U/L (14-59) Alkaline Phosphatase 100 U/L (46-116) Total Protein 6.6 g/dL (6.4-8.2) Albumin 2.5 g/dL (3.4-5.0) Albumin/Globulin Ratio 0.6 (1.0-1.7) Laboratory Tests Test 11/25/18 18:45 11/26/18 04:30 Heparin Anti-Xa Act, Unfractionated < 0.10 IU/mL (0.30-0.70) 0.24 IU/mL (0.30-0.70) White Blood Count 17.5 x10^3/uL (4.0-11.0) Red Blood Count 3.34 x10^6/uL (3.50-5.40) Hemoglobin 10.0 g/dL (12.0-15.5) Hematocrit 30.1 % (36.0-47.0) Mean Corpuscular Volume 90 fL (79-100) Mean Corpuscular Hemoglobin 30 pg (25-35) Mean Corpuscular Hemoglobin Concent 33 g/dL (31-37) Red Cell Distribution Width 13.6 % (11.5-14.5) Platelet Count 391 x10^3/uL (140-400) Neutrophils (%) (Auto) 91 % (31-73) Lymphocytes (%) (Auto) 5 % (24-48) Monocytes (%) (Auto) 4 % (0-9) Eosinophils (%) (Auto) 0 % (0-3) Basophils (%) (Auto) 0 % (0-3) Neutrophils # (Auto) 15.8 x10^3uL (1.8-7.7) Lymphocytes # (Auto) 0.9 x10^3/uL (1.0-4.8) Monocytes # (Auto) 0.7 x10^3/uL (0.0-1.1) Eosinophils # (Auto) 0.0 x10^3/uL (0.0-0.7) Basophils # (Auto) 0.0 x10^3/uL (0.0-0.2) Sodium Level 134 mmol/L (136-145) Potassium Level 3.9 mmol/L (3.5-5.1) Chloride Level 98 mmol/L (98-107) Carbon Dioxide Level 28 mmol/L (21-32) Anion Gap 8 (6-14) Blood Urea Nitrogen 24 mg/dL (7-20) Creatinine 1.0 mg/dL (0.6-1.0) Estimated GFR (Cockcroft-Gault) 65.6 BUN/Creatinine Ratio 24 (6-20) Glucose Level 169 mg/dL (70-99) Calcium Level 9.4 mg/dL (8.5-10.1) Total Bilirubin 0.3 mg/dL (0.2-1.0) Aspartate Amino Transf (AST/SGOT) 16 U/L (15-37) Alanine Aminotransferase (ALT/SGPT) 14 U/L (14-59) Alkaline Phosphatase 100 U/L (46-116) Troponin I Quantitative 0.492 ng/mL (0.000-0.055) Total Protein 6.6 g/dL (6.4-8.2) Albumin 2.5 g/dL (3.4-5.0) Albumin/Globulin Ratio 0.6 (1.0-1.7) Microbiology 11/24/18 Blood Culture - Preliminary, Resulted NO GROWTH AFTER 1 DAY Medications Current Medications Adenosine (Adenocard) 6 mg STK-MED ONCE IV ; Start 11/24/18 at 22:35; Stop 11/24 at 22:36; Status DC Ipratropium Steger (Atrovent) 0.5 mg 1X ONCE NEB Last administered on at 23:00; Start 11/24/18 at 23:00; Stop 11/24/18 at 23:01; Status DC Albuterol Sulfate (Ventolin Neb Soln) 10 mg 1X ONCE CONT NEB Last administered on 11/24/18at 23:00; Start 11/24/18 at 23:00; Stop 11/24/18 at 23:01 ; Status DC Aspirin (Children'S Aspirin) 324 mg 1X ONCE PO Last administered on 11/24/18at 23:58; Start 11/24/18 at 23:45; Stop 11/24/18 at 23:46; Status DC Furosemide (Lasix) 40 mg 1X ONCE IVP Last administered on 11/25/18at 00:03; Start 11/25/18 at 00:00; Stop 11/25/18 at 00:01; Status DC Levofloxacin (Levaquin) 500 mg 1X ONCE PO Last administered on 11/25/18at 00:03 ; Start 11/25/18 at 00:00; Stop 11/25/18 at 00:01; Status DC Ondansetron HCl (Zofran) 4 mg PRN Q8HRS PRN IV NAUSEA/VOMITING 1ST CHOICE; Start 11/25/18 at 00:15; Stop 11/25/18 at 03:31; Status DC Acetaminophen (Tylenol) 650 mg PRN Q4HRS PRN PO FEVER; Start 11/25/18 at 00:15 ; Stop 11/25/18 at 03:31; Status DC Nitroglycerin (Nitrostat) 0.4 mg PRN Q5MIN PRN SL CHEST PAIN; Start 11/25/18 at 00:15; Stop 11/26/18 at 00:14; Status DC Albuterol/ Ipratropium (Duoneb) 3 ml RTQID NEB Last administered on 11/25/18at 11:43; Start 11/25/18 at 08:00; Stop 11/26/18 at 07:59; Status DC Alprazolam (Xanax) 0.25 mg 1X ONCE PO Last administered on 11/25/18at 01:00; Start 11/25/18 at 01:00; Stop 11/25/18 at 01:01; Status DC Ondansetron HCl (Zofran) 4 mg PRN Q4HRS PRN IV NAUSEA/VOMITING 1ST CHOICE Last administered on 11/26/18 10:14; Start 11/25/18 at 03:30 Acetaminophen (Tylenol) 650 mg PRN Q6HRS PRN PO FEVER Last administered on 11/25 21:23; Start 11/25/18 at 03:30 Methylprednisolone Sodium Succinate (SOLU-Medrol 40MG VIAL) 40 mg 1X ONCE IV Last administered on 11/25/18 05:58; Start 11/25/18 at 04:00; Stop 11/25/18 at 04:01; Status DC Methylprednisolone Sodium Succinate (SOLU-Medrol 40MG VIAL) 40 mg Q12HR IV Last administered on 11/26/18 09:16; Start 11/25/18 at 09:00 Albuterol Sulfate (Ventolin Neb Soln) 2.5 mg PRN Q4HRS PRN NEB SHORTNESS OF BREATH Last administered on 11/26/18 02:53; Start 11/25/18 at 03:45 Albuterol Sulfate (Ventolin Neb Soln) 8.5 mg PRN Q6HRS PRN INH SHORTNESS OF BREATH; Start 11/25/18 at 10:15; Status UNV Aspirin ([employer] [place] Aspirin) 325 mg DAILY PO Last administered on 11/26/18 09:16; Start 11/26/18 at 09:00 Atorvastatin Calcium (Lipitor) 40 mg HS PO Last administered on 11/25/18 21:23 ; Start 11/25/18 at 21:00 Carvedilol (Coreg) 6.25 mg BIDWMEALS PO Last administered on 11/26/18 09:18; Start 11/25/18 at 10:00 Furosemide (Lasix) 20 mg DAILY PO Last administered on 11/26/18 09:18; Start 11/25/18 at 10:30 Guaifenesin (Mucinex) 600 mg BID PO Last administered on 11/26/18 09:16; Start 11/25/18 at 21:00 Albuterol/ Ipratropium (Duoneb) 3 ml RTQID NEB Last administered on 11/26/18 11:08; Start 11/25/18 at 13:00 Sertraline HCl (Zoloft) 50 mg DAILY PO Last administered on 11/26/18 09:17; Start 11/25/18 at 11:00 Tramadol HCl (Ultram) 50 mg PRN Q6HRS PRN PO PAIN; Start 11/25/18 at 10:15 Vitamin D (Vitamin D3) 2,000 unit BIDAFTMEAL PO Last administered on 11/26/18 09:16; Start 11/25/18 at 18:00 Non-Formulary Medication (Fluticasone Propionate (Flovent 110MCG Hfa)) 2 puff BID IH ; Start 11/25/18 at 21:00; Status UNV Lisinopril (Prinivil) 2.5 mg DAILY PO Last administered on 11/26/18 09:17; Start 11/25/18 at 11:00 Ondansetron HCl (Zofran Odt) 4 mg PRN Q8HRS PRN PO NAUSEA/VOMITING; Start 11/25 at 10:30 Oxycodone HCl (Roxicodone) 5 mg PRN Q4HRS PRN PO PAIN Last administered on 11/26 09:19; Start 11/25/18 at 10:45 Pantoprazole Sodium (Protonix) 40 mg DAILYAC PO Last administered on 11/26/18 09:16; Start 11/25/18 at 11:00 Spironolactone (Aldactone) 25 mg DAILY PO Last administered on 11/26/18 09:17 ; Start 11/25/18 at 11:00 Budesonide (Pulmicort) 0.5 mg RTBID NEB Last administered on 11/26/18 11:08; Start 11/25/18 at 20:00 Alprazolam (Xanax) 0.25 mg TID PO Last administered on 11/26/18 09:16; Start 11/25/18 at 12:00 Heparin Sodium/ Dextrose 500 ml @ 0 mls/hr CONT PRN IV SEE I/O RECORD Last administered on 11/25/18at 12:18; Start 11/25/18 at 11:15 Heparin Sodium (Porcine) (Heparin Sodium) 1,250 unit PRN Q6HRS PRN IV FOR UFH LEVEL LESS THAN 0.2 Last administered on 11/26/18at 05:39; Start 11/25/18 at 11: 15 Clopidogrel Bisulfate (Plavix) 75 mg DAILYWBKFT PO Last administered on at 09:18; Start 11/26/18 at 08:00 Clopidogrel Bisulfate (Plavix) 75 mg 1X ONCE PO Last administered on at 12:19; Start 11/25/18 at 11:15; Stop 11/25/18 at 11:16; Status DC Clindamycin Phosphate 50 ml @ 100 mls/hr Q8HRS IV Last administered on at 05:32; Start 11/25/18 at 14:00 Lidocaine (Lidoderm) 1 patch DAILY TD Last administered on 11/26/18at 09:23; Start 11/25/18 at 14:00 Miscellaneous (Lidoderm Patch Removal) 1 ea QHS MC Last administered on at 21:00; Start 11/25/18 at 21:00 Acetaminophen (Tylenol) 650 mg PRN Q6HRS PRN PO MILD PAIN; Start 11/25/18 at 14 :15 Multi-Ingredient Mouthwash/Gargle (Gi Cocktail) 20 ml 1X ONCE SWSW ; Start at 14:15; Stop 11/25/18 at 14:16; Status DC Active Scripts Active Lasix (Furosemide) 20 Mg Tablet 1 Tab PO DAILY Proair Hfa Inhaler (Albuterol Sulfate) 8.5 Gm Hfa.aer.ad 1 Puff INH PRN Q6HRS PRN 14 Days Zofran (Ondansetron Hcl) 4 Mg Tablet 1 Tab PO Q8HRS PRN Reported Alprazolam 0.25 Mg Tablet 1 Tab PO TID Flovent 110MCG Hfa (Fluticasone Propionate) 12 Gm Aer.w.adap 2 Puff IH BID Spironolactone 25 Mg Tablet 1 Tab PO DAILY Protonix (Pantoprazole Sodium) 20 Mg Tablet.dr 40 Mg PO DAILY Oxycodone Hcl 5 Mg/5 Ml Solution 5 Mg PO PRN Q4HRS PRN Lisinopril 2.5 Mg Tablet 2.5 Mg PO DAILY Guaifenesin 600 Mg Tablet.er 600 Mg PO BID Sertraline Hcl 50 Mg Tablet 50 Mg PO DAILY Tramadol Hcl 50 Mg Tablet 1 Tab PO PRN Q6HRS PRN Duoneb 0.5-3(2.5) Mg/3 Ml (Albuterol/Ipratropium) 3 Ml Ampul.neb 3 Ml NEB QID Atorvastatin Calcium 40 Mg Tablet 40 Mg PO HS Carvedilol (Carvedilol) 6.25 Mg Tablet 6.25 Mg PO BIDWMEALS Vitamin D (Cholecalciferol (Vitamin D3)) 2,000 Unit Capsule 2,000 Unit PO BIDAFTMEAL Aspirin Ec (Aspirin) 325 Mg Tablet.dr 325 Mg PO DAILY Vitals/I & O Vital Sign - Last 24 Hours 11/25/18 11/25/18 11/25/18 11/25/18 12:20 12:20 15:00 15:47 Temp 98.3 98.3 Pulse 98 95 85 Resp 18 B/P (MAP) 104/52 104/52 103/58 (73) Pulse Ox 95 92 O2 Delivery Nasal Cannula Nasal Cannula O2 Flow Rate 3.0 3.0 11/25/18 11/25/18 11/25/18 11/25/18 18:33 19:00 20:00 20:31 Temp 98.0 98.0 Pulse 93 Resp 18 B/P (MAP) 121/64 (83) 117/55 (75) Pulse Ox 94 92 O2 Delivery Nasal Cannula Nasal Cannula Nasal Cannula O2 Flow Rate 3.0 2.0 3.0 11/25/18 11/25/18 11/26/18 11/26/18 21:24 23:38 02:52 03:52 Temp 97.9 98.2 97.9 98.2 Pulse 93 87 87 Resp 18 17 B/P (MAP) 117/55 105/51 (69) 130/61 (84) Pulse Ox 100 100 O2 Delivery Nasal Cannula Nasal Cannula Nasal Cannula O2 Flow Rate 3.0 3.0 3.0 11/26/18 11/26/18 11/26/18 11/26/18 07:00 07:19 09:17 09:18 Temp 97.7 97.7 Pulse 81 85 84 Resp 17 B/P (MAP) 133/66 (88) 124/63 124/63 Pulse Ox 95 97 O2 Delivery Nasal Cannula Nasal Cannula O2 Flow Rate 3.0 3.0 11/26/18 11/26/18 11/26/18 11/26/18 09:19 10:19 11:03 11:09 Temp 97.7 97.7 Pulse 89 Resp 20 20 17 B/P (MAP) 116/55 (75) Pulse Ox 98 91 100 O2 Delivery Nasal Cannula Nasal Cannula Nasal Cannula O2 Flow Rate 2.0 3.0 3.0 Intake and Output 11/25/18 11/25/18 11/26/18 15:00 23:00 07:00 Intake Total 100 ml 640 ml Balance 100 ml 640 ml Nutrition Consultation Dietary Evaluation: Recommendations by RD: Increase Calorie Intake Comments: REC regular diet to promote increased PO intake, allow more food options REC TF bolus feeds per following: Osmolite 1.5 bolus 5x/day (237 ml/1 carton per bolus) w/60 ml water flushes before and after each feeding Expected Outcomes/Goals: PO intake and TF intake to meet >75% est needs Malnutrition Findings: Food and Nutrition Intake (Sev: <50% est energy req 5days Body Fat Depletion (Non Severe: Mild Depletion Weight Status: Underweight CASTLE,NIAL K III DO Nov 26, 2018 11:54
[2018-11-26 14:46] VITALS: BP 105/53
[2018-11-26 19:15] VITALS: BP 92/46
[2018-11-26] MEDS: PATCH REMOVAL. MC SCH (21:00)
[2018-11-26] MEDS: LACTOBACILLUS RHAMNOSUS GG 1 CAPSULE. PO SCH (21:19)
[2018-11-26] MEDS: ATORVASTATIN CALCIUM 40 MG TABLET. PO SCH (21:19)
[2018-11-26 23:33] VITALS: BP 100/49
[2018-11-27] VITALS (7 sets, daily range): BP systolic 93–120; BP diastolic 50–58
[2018-11-27 05:39] LABS: BASO % 0 % (0-3); EOS % 0 % (0-3); HEMATOCRIT 28.8 % (36.0-47.0); HEMOGLOBIN 9.4 g/dL (12.0-15.5); LYMPH % 6 % (24-48); MEAN CORPUSCULAR HEMOGLOBIN 30 pg (25-35); MEAN CORPUSCULAR HGB CONC 33 g/dL (31-37); MEAN CORPUSCULAR VOLUME 91 fL (79-100); MONO # 0.5 x10^3/uL (0.0-1.1); MONO % 3 % (0-9); NEUT # 14.7 x10^3uL (1.8-7.7); NEUT % 91 % (31-73); PLATELET COUNT 380 x10^3/uL (140-400); RED BLOOD COUNT 3.18 x10^6/uL (3.50-5.40); RED CELL DISTRIBUTION WIDTH 14.5 % (11.5-14.5); WHITE BLOOD COUNT 16.1 x10^3/uL (4.0-11.0)
[2018-11-27 06:12] LABS: CALCIUM 9.1 mg/dL (8.5-10.1); CREATININE 0.9 mg/dL (0.6-1.0); GFR 74.1; POTASSIUM 4.4 mmol/L (3.5-5.1)
[2018-11-27] MEDS: CLINDAMYCIN 600MG PREMIX 50 ML IV SCH ×3 (06:25→21:33)
[2018-11-27] MEDS: BUDESONIDE 0.5 MG/2 ML NEBU. NEB SCH ×2 (07:25→20:00)
[2018-11-27] MEDS: IPRATRPIUM/ALBUTEROL 0.5/2.5MG 3 ML NEBU. NEB SCH ×4 (07:25→20:03)
--- NOTE | 2018-11-27 07:32 | PDOC ---
PULMONARY PROGRESS NOTES Subjective sob better, has cough, has occ chest wall pain Vitals Vital Signs Date Time Temp Pulse Resp B/P (MAP) Pulse Ox O2 Delivery O2 Flow Rate FiO2 11/27/18 07:27 99 Nasal Cannula 2.0 11/27/18 03:40 97.7 69 20 105/56 (72) 97.7 ROS: No Nausea, No Chest Pain, No Abdominal Pain, No Increase Cough General: Alert, No acute distress Lungs: Crackles, Other (no rhonchi) Cardiovascular: S1, S2 Abdomen: Soft, Non-tender Neuro Exam: Alert Extremities: No Edema Skin: Warm Labs Laboratory Tests Test 11/25/18 11:05 11/25/18 18:45 11/26/18 04:30 11/26/18 11:40 Sodium Level 136 mmol/L (136-145) 134 mmol/L (136-145) Potassium Level 4.0 mmol/L (3.5-5.1) 3.9 mmol/L (3.5-5.1) Chloride Level 97 mmol/L (98-107) 98 mmol/L (98-107) Carbon Dioxide Level 28 mmol/L (21-32) 28 mmol/L (21-32) Anion Gap 11 (6-14) 8 (6-14) Blood Urea Nitrogen 17 mg/dL (7-20) 24 mg/dL (7-20) Creatinine 1.2 mg/dL (0.6-1.0) 1.0 mg/dL (0.6-1.0) Estimated GFR (Cockcroft-Gault) 53.1 65.6 Glucose Level 142 mg/dL (70-99) 169 mg/dL (70-99) Calcium Level 9.9 mg/dL (8.5-10.1) 9.4 mg/dL (8.5-10.1) Magnesium Level 1.9 mg/dL (1.8-2.4) Troponin I Quantitative 1.121 ng/mL (0.000-0.055) 0.492 ng/mL (0.000-0.055) Heparin Anti-Xa Act, Unfractionated < 0.10 IU/mL (0.30-0.70) 0.24 IU/mL (0.30-0.70) 0.16 IU/mL (0.30-0.70) White Blood Count 17.5 x10^3/uL (4.0-11.0) Red Blood Count 3.34 x10^6/uL (3.50-5.40) Hemoglobin 10.0 g/dL (12.0-15.5) Hematocrit 30.1 % (36.0-47.0) Mean Corpuscular Volume 90 fL (79-100) Mean Corpuscular Hemoglobin 30 pg (25-35) Mean Corpuscular Hemoglobin Concent 33 g/dL (31-37) Red Cell Distribution Width 13.6 % (11.5-14.5) Platelet Count 391 x10^3/uL (140-400) Neutrophils (%) (Auto) 91 % (31-73) Lymphocytes (%) (Auto) 5 % (24-48) Monocytes (%) (Auto) 4 % (0-9) Eosinophils (%) (Auto) 0 % (0-3) Basophils (%) (Auto) 0 % (0-3) Neutrophils # (Auto) 15.8 x10^3uL (1.8-7.7) Lymphocytes # (Auto) 0.9 x10^3/uL (1.0-4.8) Monocytes # (Auto) 0.7 x10^3/uL (0.0-1.1) Eosinophils # (Auto) 0.0 x10^3/uL (0.0-0.7) Basophils # (Auto) 0.0 x10^3/uL (0.0-0.2) BUN/Creatinine Ratio 24 (6-20) Total Bilirubin 0.3 mg/dL (0.2-1.0) Aspartate Amino Transf (AST/SGOT) 16 U/L (15-37) Alanine Aminotransferase (ALT/SGPT) 14 U/L (14-59) Alkaline Phosphatase 100 U/L (46-116) Total Protein 6.6 g/dL (6.4-8.2) Albumin 2.5 g/dL (3.4-5.0) Albumin/Globulin Ratio 0.6 (1.0-1.7) Test 11/27/18 04:00 White Blood Count 16.1 x10^3/uL (4.0-11.0) Red Blood Count 3.18 x10^6/uL (3.50-5.40) Hemoglobin 9.4 g/dL (12.0-15.5) Hematocrit 28.8 % (36.0-47.0) Mean Corpuscular Volume 91 fL (79-100) Mean Corpuscular Hemoglobin 30 pg (25-35) Mean Corpuscular Hemoglobin Concent 33 g/dL (31-37) Red Cell Distribution Width 14.5 % (11.5-14.5) Platelet Count 380 x10^3/uL (140-400) Neutrophils (%) (Auto) 91 % (31-73) Lymphocytes (%) (Auto) 6 % (24-48) Monocytes (%) (Auto) 3 % (0-9) Eosinophils (%) (Auto) 0 % (0-3) Basophils (%) (Auto) 0 % (0-3) Neutrophils # (Auto) 14.7 x10^3uL (1.8-7.7) Lymphocytes # (Auto) 1.0 x10^3/uL (1.0-4.8) Monocytes # (Auto) 0.5 x10^3/uL (0.0-1.1) Eosinophils # (Auto) 0.0 x10^3/uL (0.0-0.7) Basophils # (Auto) 0.0 x10^3/uL (0.0-0.2) Sodium Level 135 mmol/L (136-145) Potassium Level 4.4 mmol/L (3.5-5.1) Chloride Level 99 mmol/L (98-107) Carbon Dioxide Level 29 mmol/L (21-32) Anion Gap 7 (6-14) Blood Urea Nitrogen 23 mg/dL (7-20) Creatinine 0.9 mg/dL (0.6-1.0) Estimated GFR (Cockcroft-Gault) 74.1 Glucose Level 144 mg/dL (70-99) Calcium Level 9.1 mg/dL (8.5-10.1) Laboratory Tests Test 11/26/18 11:40 11/27/18 04:00 Heparin Anti-Xa Act, Unfractionated 0.16 IU/mL (0.30-0.70) White Blood Count 16.1 x10^3/uL (4.0-11.0) Red Blood Count 3.18 x10^6/uL (3.50-5.40) Hemoglobin 9.4 g/dL (12.0-15.5) Hematocrit 28.8 % (36.0-47.0) Mean Corpuscular Volume 91 fL (79-100) Mean Corpuscular Hemoglobin 30 pg (25-35) Mean Corpuscular Hemoglobin Concent 33 g/dL (31-37) Red Cell Distribution Width 14.5 % (11.5-14.5) Platelet Count 380 x10^3/uL (140-400) Neutrophils (%) (Auto) 91 % (31-73) Lymphocytes (%) (Auto) 6 % (24-48) Monocytes (%) (Auto) 3 % (0-9) Eosinophils (%) (Auto) 0 % (0-3) Basophils (%) (Auto) 0 % (0-3) Neutrophils # (Auto) 14.7 x10^3uL (1.8-7.7) Lymphocytes # (Auto) 1.0 x10^3/uL (1.0-4.8) Monocytes # (Auto) 0.5 x10^3/uL (0.0-1.1) Eosinophils # (Auto) 0.0 x10^3/uL (0.0-0.7) Basophils # (Auto) 0.0 x10^3/uL (0.0-0.2) Sodium Level 135 mmol/L (136-145) Potassium Level 4.4 mmol/L (3.5-5.1) Chloride Level 99 mmol/L (98-107) Carbon Dioxide Level 29 mmol/L (21-32) Anion Gap 7 (6-14) Blood Urea Nitrogen 23 mg/dL (7-20) Creatinine 0.9 mg/dL (0.6-1.0) Estimated GFR (Cockcroft-Gault) 74.1 Glucose Level 144 mg/dL (70-99) Calcium Level 9.1 mg/dL (8.5-10.1) Medications Active Scripts Medications Dose Route/Sig Max Daily Dose Days Date Category Alprazolam 0.25 Mg Tablet 1 Tab PO TID 11/25/18 Reported Flovent 110MCG Hfa (Fluticasone Propionate) 12 Gm Aer.w.adap 2 Puff IH BID 11/25/18 Reported Spironolactone 25 Mg Tablet 1 Tab PO DAILY 11/25/18 Reported Protonix (Pantoprazole Sodium) 20 Mg Tablet.dr 40 Mg PO DAILY 11/25/18 Reported Oxycodone Hcl 5 Mg/5 Ml Solution 5 Mg PO PRN Q4HRS PRN 11/25/18 Reported Lisinopril 2.5 Mg Tablet 2.5 Mg PO DAILY 11/25/18 Reported Guaifenesin 600 Mg Tablet.er 600 Mg PO BID 11/25/18 Reported Sertraline Hcl 50 Mg Tablet 50 Mg PO DAILY 11/25/18 Reported Lasix (Furosemide) 20 Mg Tablet 1 Tab PO DAILY 10/04/18 Rx Proair Hfa Inhaler (Albuterol Sulfate) 8.5 Gm Hfa.aer.ad 1 Puff INH PRN Q6HRS PRN 14 10/04/18 Rx Tramadol Hcl 50 Mg Tablet 1 Tab PO PRN Q6HRS PRN 08/13/18 Reported Duoneb 0.5-3(2.5) Mg/3 Ml (Albuterol/Ipratropium) 3 Ml Ampul.neb 3 Ml NEB QID 04/17/18 Reported Zofran (Ondansetron Hcl) 4 Mg Tablet 1 Tab PO Q8HRS PRN 05/19/16 Rx Atorvastatin Calcium 40 Mg Tablet 40 Mg PO HS 09/24/15 Reported Carvedilol (Carvedilol) 6.25 Mg Tablet 6.25 Mg PO BIDWMEALS 09/24/15 Reported Vitamin D (Cholecalciferol (Vitamin D3)) 2,000 Unit Capsule 2,000 Unit PO BIDAFTMEAL 01/07/15 Reported Aspirin Ec (Aspirin) 325 Mg Tablet.dr 325 Mg PO DAILY 01/07/15 Reported Impression . IMPRESSION: 1. Acute on chronic respiratory failure. 2. Chronic obstructive pulmonary disease exacerbation. 3. Acute on chronic systolic heart failure. 4. Possible pneumonia. 5. Non-ST segment elevation myocardial infarction. 6. Eating disorder/bulimia. Impression: Slight prominence of the pulmonary vasculature is seen which could reflect mild CHF. Plan . PT BETTER FOLLOW CARD INPUT ANTIBX change solumedrol to prednisone 40 mg daily BD discussed w pt, rt [place] STEPHENS MD Nov 27, 2018 07:32
[2018-11-27] MEDS: CLOPIDOGREL BISULFATE 75 MG TABLET PO SCH (08:00)
[2018-11-27] MEDS: LISINOPRIL 5 MG TABLET. PO SCH (08:43)
[2018-11-27] MEDS: LIDOCAINE (700MG/PATCH) PATCH. TD SCH (08:43)
[2018-11-27] MEDS: CHOLECALCIFEROL (VITAMIN D3) 1,000 UNIT TABLET PO SCH ×2 (08:43→18:00)
[2018-11-27] MEDS: PANTOPRAZOLE 40 MG TABLET.DR. PO SCH (08:43)
[2018-11-27] MEDS: LACTOBACILLUS RHAMNOSUS GG 1 CAPSULE. PO SCH ×2 (08:43→21:37)
[2018-11-27] MEDS: ASPIRIN 325 MG TABLET PO SCH (08:44)
[2018-11-27] MEDS: ALPRAZolam 0.25 MG TABLET PO SCH ×3 (08:44→21:37)
[2018-11-27] MEDS: CARVEDILOL 6.25 MG TABLET. PO SCH ×2 (08:44→17:00)
[2018-11-27] MEDS: SPIRONOLACTONE 25 MG TABLET PO SCH (08:44)
[2018-11-27] MEDS: SERTRALINE 50 MG TABLET. PO SCH (08:44)
[2018-11-27] MEDS: predniSONE 20 MG TABLET PO SCH (08:45)
[2018-11-27] MEDS: FUROSEMIDE 20 MG TABLET PO SCH (08:45)
--- NOTE | 2018-11-27 10:08 | PDOC ---
Provider Note Provider Note S: No new events. Still is SOA with minimal activity O: VSS Looks cachectic and emaciated. Normal heart tones. Soft MR/TR murmurs Neck veins elevated Soft abd No edema. Labs: Hgb 9.4. Cr wnl Meds reviewed: ASA, Plavix, STatin Coreg 6.25mg bid Lisinopril 2.5mg daily OSH records reviewed. Impression: 1. Severe ICM with failure to thrive. Plan 1. She has class 4 symptoms, will start on milrinone. She is not a candidate for advanced therapies due to her debility. Depending on response to milrinone, may consider transfer to versus hospice eval. Thanks. BILL WILLS MD Nov 27, 2018 10:08
[2018-11-27] MEDS ORDERED: MILRINONE 20MG/100ML PREMIX 100 ML IV PRN (10:15)
--- NOTE | 2018-11-27 11:24 | PDOC ---
PROGRESS NOTES Chief Complaint Chief Complaint NSTEMI CHF UTI COPD GERD Hypertension Pacemaker PEG tube for chronic vomiting Cardiac stents Defibrillator History of Present Illness History of Present Illness Patient was seen and examined lying in bed in her room this morning. She continues to complain of slight chest pain. Cardiology following. Her EF is 10- 20%. Previous records from have been obtained. She will be started on IV milrinone today. She will continue on empiric IV clindamycin. Discussed with RN and Dr. Paredes. Vitals Vitals Vital Signs Date Time Temp Pulse Resp B/P (MAP) Pulse Ox O2 Delivery O2 Flow Rate FiO2 11/27/18 11:16 Nasal Cannula 2.0 11/27/18 08:44 73 110/58 11/27/18 07:27 99 11/27/18 07:00 97.8 16 97.8 Physical Exam General: Alert, Oriented X3, Cooperative, No acute distress Heart: Regular rate (paced ), Normal S1, Normal S2, Other (4/6 systolic murmur to apex) Lungs: Crackles, Other (no rhonchi) Abdomen: Soft, No tenderness Extremities: No clubbing, No cyanosis, No edema Skin: No rashes, No breakdown, No significant lesion Labs LABS Laboratory Tests Test 11/26/18 11:40 11/27/18 04:00 Heparin Anti-Xa Act, Unfractionated 0.16 IU/mL (0.30-0.70) White Blood Count 16.1 x10^3/uL (4.0-11.0) Red Blood Count 3.18 x10^6/uL (3.50-5.40) Hemoglobin 9.4 g/dL (12.0-15.5) Hematocrit 28.8 % (36.0-47.0) Mean Corpuscular Volume 91 fL (79-100) Mean Corpuscular Hemoglobin 30 pg (25-35) Mean Corpuscular Hemoglobin Concent 33 g/dL (31-37) Red Cell Distribution Width 14.5 % (11.5-14.5) Platelet Count 380 x10^3/uL (140-400) Neutrophils (%) (Auto) 91 % (31-73) Lymphocytes (%) (Auto) 6 % (24-48) Monocytes (%) (Auto) 3 % (0-9) Eosinophils (%) (Auto) 0 % (0-3) Basophils (%) (Auto) 0 % (0-3) Neutrophils # (Auto) 14.7 x10^3uL (1.8-7.7) Lymphocytes # (Auto) 1.0 x10^3/uL (1.0-4.8) Monocytes # (Auto) 0.5 x10^3/uL (0.0-1.1) Eosinophils # (Auto) 0.0 x10^3/uL (0.0-0.7) Basophils # (Auto) 0.0 x10^3/uL (0.0-0.2) Sodium Level 135 mmol/L (136-145) Potassium Level 4.4 mmol/L (3.5-5.1) Chloride Level 99 mmol/L (98-107) Carbon Dioxide Level 29 mmol/L (21-32) Anion Gap 7 (6-14) Blood Urea Nitrogen 23 mg/dL (7-20) Creatinine 0.9 mg/dL (0.6-1.0) Estimated GFR (Cockcroft-Gault) 74.1 Glucose Level 144 mg/dL (70-99) Calcium Level 9.1 mg/dL (8.5-10.1) Review of Systems Review of Systems Complains of chest pain and shortness of breath. Denies fever or chills. Assessment and Plan Assessmemt and Plan Assessment: NSTEMI CHF UTI COPD GERD Hypertension Pacemaker PEG tube for chronic vomiting Cardiac stents Defibrillator Plan: 1. Cardiac monitoring 2. IV milrinone starting today 3. Empiric IV clindamycin 4. PO Lasix 5. DuoNebs 6. Home meds 7. PT/OT 8. Monitor labs 9. Oxygen via NC 10. Appreciate cardiology input Comment Review of Relevant I have reviewed the following items loren (where applicable) has been applied. Labs Laboratory Tests Test 11/25/18 18:45 11/26/18 04:30 11/26/18 11:40 11/27/18 04:00 Heparin Anti-Xa Act, Unfractionated < 0.10 IU/mL (0.30-0.70) 0.24 IU/mL (0.30-0.70) 0.16 IU/mL (0.30-0.70) White Blood Count 17.5 x10^3/uL (4.0-11.0) 16.1 x10^3/uL (4.0-11.0) Red Blood Count 3.34 x10^6/uL (3.50-5.40) 3.18 x10^6/uL (3.50-5.40) Hemoglobin 10.0 g/dL (12.0-15.5) 9.4 g/dL (12.0-15.5) Hematocrit 30.1 % (36.0-47.0) 28.8 % (36.0-47.0) Mean Corpuscular Volume 90 fL (79-100) 91 fL (79-100) Mean Corpuscular Hemoglobin 30 pg (25-35) 30 pg (25-35) Mean Corpuscular Hemoglobin Concent 33 g/dL (31-37) 33 g/dL (31-37) Red Cell Distribution Width 13.6 % (11.5-14.5) 14.5 % (11.5-14.5) Platelet Count 391 x10^3/uL (140-400) 380 x10^3/uL (140-400) Neutrophils (%) (Auto) 91 % (31-73) 91 % (31-73) Lymphocytes (%) (Auto) 5 % (24-48) 6 % (24-48) Monocytes (%) (Auto) 4 % (0-9) 3 % (0-9) Eosinophils (%) (Auto) 0 % (0-3) 0 % (0-3) Basophils (%) (Auto) 0 % (0-3) 0 % (0-3) Neutrophils # (Auto) 15.8 x10^3uL (1.8-7.7) 14.7 x10^3uL (1.8-7.7) Lymphocytes # (Auto) 0.9 x10^3/uL (1.0-4.8) 1.0 x10^3/uL (1.0-4.8) Monocytes # (Auto) 0.7 x10^3/uL (0.0-1.1) 0.5 x10^3/uL (0.0-1.1) Eosinophils # (Auto) 0.0 x10^3/uL (0.0-0.7) 0.0 x10^3/uL (0.0-0.7) Basophils # (Auto) 0.0 x10^3/uL (0.0-0.2) 0.0 x10^3/uL (0.0-0.2) Sodium Level 134 mmol/L (136-145) 135 mmol/L (136-145) Potassium Level 3.9 mmol/L (3.5-5.1) 4.4 mmol/L (3.5-5.1) Chloride Level 98 mmol/L (98-107) 99 mmol/L (98-107) Carbon Dioxide Level 28 mmol/L (21-32) 29 mmol/L (21-32) Anion Gap 8 (6-14) 7 (6-14) Blood Urea Nitrogen 24 mg/dL (7-20) 23 mg/dL (7-20) Creatinine 1.0 mg/dL (0.6-1.0) 0.9 mg/dL (0.6-1.0) Estimated GFR (Cockcroft-Gault) 65.6 74.1 BUN/Creatinine Ratio 24 (6-20) Glucose Level 169 mg/dL (70-99) 144 mg/dL (70-99) Calcium Level 9.4 mg/dL (8.5-10.1) 9.1 mg/dL (8.5-10.1) Total Bilirubin 0.3 mg/dL (0.2-1.0) Aspartate Amino Transf (AST/SGOT) 16 U/L (15-37) Alanine Aminotransferase (ALT/SGPT) 14 U/L (14-59) Alkaline Phosphatase 100 U/L (46-116) Troponin I Quantitative 0.492 ng/mL (0.000-0.055) Total Protein 6.6 g/dL (6.4-8.2) Albumin 2.5 g/dL (3.4-5.0) Albumin/Globulin Ratio 0.6 (1.0-1.7) Laboratory Tests Test 11/26/18 11:40 11/27/18 04:00 Heparin Anti-Xa Act, Unfractionated 0.16 IU/mL (0.30-0.70) White Blood Count 16.1 x10^3/uL (4.0-11.0) Red Blood Count 3.18 x10^6/uL (3.50-5.40) Hemoglobin 9.4 g/dL (12.0-15.5) Hematocrit 28.8 % (36.0-47.0) Mean Corpuscular Volume 91 fL (79-100) Mean Corpuscular Hemoglobin 30 pg (25-35) Mean Corpuscular Hemoglobin Concent 33 g/dL (31-37) Red Cell Distribution Width 14.5 % (11.5-14.5) Platelet Count 380 x10^3/uL (140-400) Neutrophils (%) (Auto) 91 % (31-73) Lymphocytes (%) (Auto) 6 % (24-48) Monocytes (%) (Auto) 3 % (0-9) Eosinophils (%) (Auto) 0 % (0-3) Basophils (%) (Auto) 0 % (0-3) Neutrophils # (Auto) 14.7 x10^3uL (1.8-7.7) Lymphocytes # (Auto) 1.0 x10^3/uL (1.0-4.8) Monocytes # (Auto) 0.5 x10^3/uL (0.0-1.1) Eosinophils # (Auto) 0.0 x10^3/uL (0.0-0.7) Basophils # (Auto) 0.0 x10^3/uL (0.0-0.2) Sodium Level 135 mmol/L (136-145) Potassium Level 4.4 mmol/L (3.5-5.1) Chloride Level 99 mmol/L (98-107) Carbon Dioxide Level 29 mmol/L (21-32) Anion Gap 7 (6-14) Blood Urea Nitrogen 23 mg/dL (7-20) Creatinine 0.9 mg/dL (0.6-1.0) Estimated GFR (Cockcroft-Gault) 74.1 Glucose Level 144 mg/dL (70-99) Calcium Level 9.1 mg/dL (8.5-10.1) Microbiology 11/24/18 Blood Culture - Preliminary, Resulted NO GROWTH AFTER 2 DAYS 11/24/18 Urine Culture - Final, Complete 11/24/18 Urine Culture Result 1 (SARAH BETH) - Final, Complete Medications Current Medications Adenosine (Adenocard) 6 mg STK-MED ONCE IV ; Start 11/24/18 at 22:35; Stop 11/24 at 22:36; Status DC Ipratropium [place] (Atrovent) 0.5 mg 1X ONCE NEB Last administered on at 23:00; Start 11/24/18 at 23:00; Stop 11/24/18 at 23:01; Status DC Albuterol Sulfate (Ventolin Neb Soln) 10 mg 1X ONCE CONT NEB Last administered on 11/24/18at 23:00; Start 11/24/18 at 23:00; Stop 11/24/18 at 23:01 ; Status DC Aspirin (Children'S Aspirin) 324 mg 1X ONCE PO Last administered on 11/24/18at 23:58; Start 11/24/18 at 23:45; Stop 11/24/18 at 23:46; Status DC Furosemide (Lasix) 40 mg 1X ONCE IVP Last administered on 11/25/18at 00:03; Start 11/25/18 at 00:00; Stop 11/25/18 at 00:01; Status DC Levofloxacin (Levaquin) 500 mg 1X ONCE PO Last administered on 11/25/18at 00:03 ; Start 11/25/18 at 00:00; Stop 11/25/18 at 00:01; Status DC Ondansetron HCl (Zofran) 4 mg PRN Q8HRS PRN IV NAUSEA/VOMITING 1ST CHOICE; Start 11/25/18 at 00:15; Stop 11/25/18 at 03:31; Status DC Acetaminophen (Tylenol) 650 mg PRN Q4HRS PRN PO FEVER; Start 11/25/18 at 00:15 ; Stop 11/25/18 at 03:31; Status DC Nitroglycerin (Nitrostat) 0.4 mg PRN Q5MIN PRN SL CHEST PAIN; Start 11/25/18 at 00:15; Stop 11/26/18 at 00:14; Status DC Albuterol/ Ipratropium (Duoneb) 3 ml RTQID NEB Last administered on 11/25/18at 11:43; Start 11/25/18 at 08:00; Stop 11/26/18 at 07:59; Status DC Alprazolam (Xanax) 0.25 mg 1X ONCE PO Last administered on 11/25/18at 01:00; Start 11/25/18 at 01:00; Stop 11/25/18 at 01:01; Status DC Ondansetron HCl (Zofran) 4 mg PRN Q4HRS PRN IV NAUSEA/VOMITING 1ST CHOICE Last administered on 11/26/18at 10:14; Start 11/25/18 at 03:30 Acetaminophen (Tylenol) 650 mg PRN Q6HRS PRN PO FEVER Last administered on 11/25at 21:23; Start 11/25/18 at 03:30; Stop 11/26/18 at 14:58; Status DC Methylprednisolone Sodium Succinate (SOLU-Medrol 40MG VIAL) 40 mg 1X ONCE IV Last administered on 11/25/18at 05:58; Start 11/25/18 at 04:00; Stop 11/25/18 at 04:01; Status DC Methylprednisolone Sodium Succinate (SOLU-Medrol 40MG VIAL) 40 mg Q12HR IV Last administered on 11/26/18 21:19; Start 11/25/18 at 09:00; Stop 11/27/18 at 07:34; Status DC Albuterol Sulfate (Ventolin Neb Soln) 2.5 mg PRN Q4HRS PRN NEB SHORTNESS OF BREATH Last administered on 11/26/18at 02:53; Start 11/25/18 at 03:45 Albuterol Sulfate (Ventolin Neb Soln) 8.5 mg PRN Q6HRS PRN INH SHORTNESS OF BREATH; Start 11/25/18 at 10:15; Status UNV Aspirin (Andrea Aspirin) 325 mg DAILY PO Last administered on 11/27/18 08:44; Start 11/26/18 at 09:00 Atorvastatin Calcium (Lipitor) 40 mg HS PO Last administered on 11/26/18 21:19 ; Start 11/25/18 at 21:00 Carvedilol (Coreg) 6.25 mg BIDWMEALS PO Last administered on 11/27/18 08:44; Start 11/25/18 at 10:00 Furosemide (Lasix) 20 mg DAILY PO Last administered on 11/27/18at 08:45; Start 11/25/18 at 10:30 Guaifenesin (Mucinex) 600 mg BID PO Last administered on 11/27/18at 08:45; Start 11/25/18 at 21:00 Albuterol/ Ipratropium (Duoneb) 3 ml RTQID NEB Last administered on 11/27/18 11:15; Start 11/25/18 at 13:00 Sertraline HCl (Zoloft) 50 mg DAILY PO Last administered on 11/27/18 08:44; Start 11/25/18 at 11:00 Tramadol HCl (Ultram) 50 mg PRN Q6HRS PRN PO MODERATE PAIN; Start 11/25/18 at 10:15 Vitamin D (Vitamin D3) 2,000 unit BIDAFTMEAL PO Last administered on 11/27/18 08:43; Start 11/25/18 at 18:00 Non-Formulary Medication (Fluticasone Propionate (Flovent 110MCG Hfa)) 2 puff BID IH ; Start 11/25/18 at 21:00; Status UNV Lisinopril (Prinivil) 2.5 mg DAILY PO Last administered on 11/27/18 08:43; Start 11/25/18 at 11:00 Ondansetron HCl (Zofran Odt) 4 mg PRN Q8HRS PRN PO NAUSEA/VOMITING; Start 11/25 at 10:30 Oxycodone HCl (Roxicodone) 5 mg PRN Q4HRS PRN PO SEVERE PAIN Last administered on 11/26/18 09:19; Start 11/25/18 at 10:45 Pantoprazole Sodium (Protonix) 40 mg DAILYAC PO Last administered on 11/27/18 08:43; Start 11/25/18 at 11:00 Spironolactone (Aldactone) 25 mg DAILY PO Last administered on 11/27/18 08:44 ; Start 11/25/18 at 11:00 Budesonide (Pulmicort) 0.5 mg RTBID NEB Last administered on 11/27/18 07:25; Start 11/25/18 at 20:00 Alprazolam (Xanax) 0.25 mg TID PO Last administered on 11/27/18 08:44; Start 11/25/18 at 12:00 Heparin Sodium/ Dextrose 500 ml @ 0 mls/hr CONT PRN IV SEE I/O RECORD Last administered on 11/25/18 12:18; Start 11/25/18 at 11:15; Stop 11/26/18 at 17:14 ; Status DC Heparin Sodium (Porcine) (Heparin Sodium) 1,250 unit PRN Q6HRS PRN IV FOR UFH LEVEL LESS THAN 0.2 Last administered on 11/26/18at 13:26; Start 11/25/18 at 11: 15; Stop 11/26/18 at 17:14; Status DC Clopidogrel Bisulfate (Plavix) 75 mg DAILYWBKFT PO Last administered on at 09:18; Start 11/26/18 at 08:00 Clopidogrel Bisulfate (Plavix) 75 mg 1X ONCE PO Last administered on at 12:19; Start 11/25/18 at 11:15; Stop 11/25/18 at 11:16; Status DC Clindamycin Phosphate 50 ml @ 100 mls/hr Q8HRS IV Last administered on at 06:25; Start 11/25/18 at 14:00 Lidocaine (Lidoderm) 1 patch DAILY TD Last administered on 11/27/18at 08:43; Start 11/25/18 at 14:00 Miscellaneous (Lidoderm Patch Removal) 1 ea QHS MC Last administered on at 21:00; Start 11/25/18 at 21:00 Acetaminophen (Tylenol) 650 mg PRN Q6HRS PRN PO MILD PAIN; Start 11/25/18 at 14 :15 Multi-Ingredient Mouthwash/Gargle (Gi Cocktail) 20 ml 1X ONCE SWSW ; Start at 14:15; Stop 11/25/18 at 14:16; Status DC Lactobacillus Rhamnosus (Culturelle) 1 cap BID PO Last administered on at 08:43; Start 11/26/18 at 21:00 Prednisone (Prednisone) 40 mg DAILY PO Last administered on 11/27/18at 08:45; Start 11/27/18 at 09:00 Milrinone Lactate/ Dextrose 100 ml @ 5.46 mls/hr CONT PRN IV SEE I/O RECORD; Start 11/27/18 at 10:15 Active Scripts Active Lasix (Furosemide) 20 Mg Tablet 1 Tab PO DAILY Proair Hfa Inhaler (Albuterol Sulfate) 8.5 Gm Hfa.aer.ad 1 Puff INH PRN Q6HRS PRN 14 Days Zofran (Ondansetron Hcl) 4 Mg Tablet 1 Tab PO Q8HRS PRN Reported Alprazolam 0.25 Mg Tablet 1 Tab PO TID Flovent 110MCG Hfa (Fluticasone Propionate) 12 Gm Aer.w.adap 2 Puff IH BID Spironolactone 25 Mg Tablet 1 Tab PO DAILY Protonix (Pantoprazole Sodium) 20 Mg Tablet.dr 40 Mg PO DAILY Oxycodone Hcl 5 Mg/5 Ml Solution 5 Mg PO PRN Q4HRS PRN Lisinopril 2.5 Mg Tablet 2.5 Mg PO DAILY Guaifenesin 600 Mg Tablet.er 600 Mg PO BID Sertraline Hcl 50 Mg Tablet 50 Mg PO DAILY Tramadol Hcl 50 Mg Tablet 1 Tab PO PRN Q6HRS PRN Duoneb 0.5-3(2.5) Mg/3 Ml (Albuterol/Ipratropium) 3 Ml Ampul.neb 3 Ml NEB QID Atorvastatin Calcium 40 Mg Tablet 40 Mg PO HS Carvedilol (Carvedilol) 6.25 Mg Tablet 6.25 Mg PO BIDWMEALS Vitamin D (Cholecalciferol (Vitamin D3)) 2,000 Unit Capsule 2,000 Unit PO BIDAFTMEAL Aspirin Ec (Aspirin) 325 Mg Tablet.dr 325 Mg PO DAILY Vitals/I & O Vital Sign - Last 24 Hours 11/26/18 11/26/18 11/26/18 11/26/18 14:46 15:20 17:35 19:15 Temp 98.0 97.4 98.0 97.4 Pulse 81 81 76 Resp 17 18 B/P (MAP) 105/53 (70) 105/53 92/46 (61) Pulse Ox 96 99 98 O2 Delivery Nasal Cannula Nasal Cannula Nasal Cannula O2 Flow Rate 3.0 3.0 2.0 11/26/18 11/26/18 11/26/18 11/27/18 19:56 20:59 23:33 03:40 Temp 97.7 97.7 97.7 97.7 Pulse 79 69 Resp 17 20 B/P (MAP) 100/49 (66) 105/56 (72) Pulse Ox 98 98 96 O2 Delivery Nasal Cannula Nasal Cannula Nasal Cannula Nasal Cannula O2 Flow Rate 2.0 2.0 2.0 2.0 2/11/27/18 11/27/18 11/27/18 07:00 07:27 08:43 08:44 Temp 97.8 97.8 Pulse 73 73 73 Resp 16 B/P (MAP) 110/58 (75) 110/58 110/58 Pulse Ox 93 99 O2 Delivery Nasal Cannula Nasal Cannula O2 Flow Rate 2.0 2.0 11/27/18 11:16 O2 Delivery Nasal Cannula O2 Flow Rate 2.0 Intake and Output 11/26/18 11/26/18 11/27/18 14:59 22:59 06:59 Intake Total 714 ml 597 ml 50 ml Output Total 300 ml 700 ml Balance 714 ml 297 ml -650 ml Nutrition Consultation Dietary Evaluation: Recommendations by RD: Increase Calorie Intake Comments: REC regular diet to promote increased PO intake, allow more food options REC TF bolus feeds per following: Osmolite 1.5 bolus 5x/day (237 ml/1 carton per bolus) w/60 ml water flushes before and after each feeding Expected Outcomes/Goals: PO intake and TF intake to meet >75% est needs Malnutrition Findings: Food and Nutrition Intake (Sev: <50% est energy req 5days Body Fat Depletion (Non Severe: Mild Depletion Weight Status: Underweight CASTLE,NIAL K III DO Nov 27, 2018 11:24
[2018-11-27] MEDS: oxyCODONE IR 5 MG TABLET PO PRN (14:06)
[2018-11-27] MEDS: PATCH REMOVAL. MC SCH (21:00)
[2018-11-27] MEDS: ATORVASTATIN CALCIUM 40 MG TABLET. PO SCH (21:37)
[2018-11-28 03:00] VITALS: BP 111/55
[2018-11-28 04:58] LABS: BASO % 0 % (0-3); EOS # 0.2 x10^3/uL (0.0-0.7); EOS % 2 % (0-3); HEMOGLOBIN 9.5 g/dL (12.0-15.5); LYMPH # 2.1 x10^3/uL (1.0-4.8); LYMPH % 17 % (24-48); MEAN CORPUSCULAR HEMOGLOBIN 30 pg (25-35); MEAN CORPUSCULAR HGB CONC 33 g/dL (31-37); MEAN CORPUSCULAR VOLUME 90 fL (79-100); MONO % 8 % (0-9); NEUT # 9.3 x10^3uL (1.8-7.7); NEUT % 73 % (31-73); PLATELET COUNT 363 x10^3/uL (140-400); RED BLOOD COUNT 3.22 x10^6/uL (3.50-5.40); RED CELL DISTRIBUTION WIDTH 14.5 % (11.5-14.5); WHITE BLOOD COUNT 12.7 x10^3/uL (4.0-11.0)
[2018-11-28 05:49] LABS: CALCIUM 9.1 mg/dL (8.5-10.1); CREATININE 0.8 mg/dL (0.6-1.0); GFR 84.8
[2018-11-28] MEDS: CLINDAMYCIN 600MG PREMIX 50 ML IV SCH ×3 (06:23→21:05)
[2018-11-28 07:17] VITALS: BP 136/74
[2018-11-28] MEDS: IPRATRPIUM/ALBUTEROL 0.5/2.5MG 3 ML NEBU. NEB SCH ×4 (07:26→19:34)
[2018-11-28] MEDS: BUDESONIDE 0.5 MG/2 ML NEBU. NEB SCH ×2 (07:26→19:34)
[2018-11-28] MEDS: ASPIRIN 325 MG TABLET PO SCH (08:24)
[2018-11-28] MEDS: SPIRONOLACTONE 25 MG TABLET PO SCH (08:24)
[2018-11-28] MEDS: ALPRAZolam 0.25 MG TABLET PO SCH ×3 (08:24→20:09)
[2018-11-28] MEDS: FUROSEMIDE 20 MG TABLET PO SCH (08:24)
[2018-11-28] MEDS: CARVEDILOL 6.25 MG TABLET. PO SCH ×2 (08:24→17:00)
[2018-11-28] MEDS: LANSOPRAZOLE 30 MG TAB.RAP.DR FT SCH ×2 (08:24→16:23)
[2018-11-28] MEDS: LACTOBACILLUS RHAMNOSUS GG 1 CAPSULE. PO SCH ×2 (08:24→20:09)
[2018-11-28] MEDS: SERTRALINE 50 MG TABLET. PO SCH (08:24)
[2018-11-28] MEDS: CHOLECALCIFEROL (VITAMIN D3) 1,000 UNIT TABLET PO SCH ×2 (08:25→18:00)
[2018-11-28] MEDS: LISINOPRIL 5 MG TABLET. PO SCH (08:25)
[2018-11-28] MEDS: CLOPIDOGREL BISULFATE 75 MG TABLET PO SCH (08:25)
[2018-11-28] MEDS: predniSONE 20 MG TABLET PO SCH (08:25)
[2018-11-28] MEDS: FLUTICASONE 50MCG/NASAL SPRAY 16GM BOTTLE. NS SCH (08:26)
[2018-11-28] MEDS: LIDOCAINE (700MG/PATCH) PATCH. TD SCH (08:26)
[2018-11-28] MEDS: ONDANSETRON PF 4 MG/2 ML VIAL. IV PRN (09:14)
--- NOTE | 2018-11-28 09:48 | PDOC ---
PULMONARY PROGRESS NOTES Subjective sob better, has cough, has nasal congestion Vitals Vital Signs Date Time Temp Pulse Resp B/P (MAP) Pulse Ox O2 Delivery O2 Flow Rate FiO2 11/28/18 08:25 75 136/74 11/28/18 08:25 98 Nasal Cannula 2.0 11/28/18 07:17 99.0 24 99.0 ROS: No Nausea, No Chest Pain, No Abdominal Pain, No Increase Cough General: Alert, No acute distress Lungs: Crackles, Other (no rhonchi) Cardiovascular: S1, S2 Abdomen: Soft, Non-tender Neuro Exam: Alert Extremities: No Edema Skin: Warm Labs Laboratory Tests Test 11/26/18 11:40 11/27/18 04:00 11/28/18 04:30 Heparin Anti-Xa Act, Unfractionated 0.16 IU/mL (0.30-0.70) White Blood Count 16.1 x10^3/uL (4.0-11.0) 12.7 x10^3/uL (4.0-11.0) Red Blood Count 3.18 x10^6/uL (3.50-5.40) 3.22 x10^6/uL (3.50-5.40) Hemoglobin 9.4 g/dL (12.0-15.5) 9.5 g/dL (12.0-15.5) Hematocrit 28.8 % (36.0-47.0) 29.0 % (36.0-47.0) Mean Corpuscular Volume 91 fL (79-100) 90 fL (79-100) Mean Corpuscular Hemoglobin 30 pg (25-35) 30 pg (25-35) Mean Corpuscular Hemoglobin Concent 33 g/dL (31-37) 33 g/dL (31-37) Red Cell Distribution Width 14.5 % (11.5-14.5) 14.5 % (11.5-14.5) Platelet Count 380 x10^3/uL (140-400) 363 x10^3/uL (140-400) Neutrophils (%) (Auto) 91 % (31-73) 73 % (31-73) Lymphocytes (%) (Auto) 6 % (24-48) 17 % (24-48) Monocytes (%) (Auto) 3 % (0-9) 8 % (0-9) Eosinophils (%) (Auto) 0 % (0-3) 2 % (0-3) Basophils (%) (Auto) 0 % (0-3) 0 % (0-3) Neutrophils # (Auto) 14.7 x10^3uL (1.8-7.7) 9.3 x10^3uL (1.8-7.7) Lymphocytes # (Auto) 1.0 x10^3/uL (1.0-4.8) 2.1 x10^3/uL (1.0-4.8) Monocytes # (Auto) 0.5 x10^3/uL (0.0-1.1) 1.0 x10^3/uL (0.0-1.1) Eosinophils # (Auto) 0.0 x10^3/uL (0.0-0.7) 0.2 x10^3/uL (0.0-0.7) Basophils # (Auto) 0.0 x10^3/uL (0.0-0.2) 0.0 x10^3/uL (0.0-0.2) Sodium Level 135 mmol/L (136-145) 136 mmol/L (136-145) Potassium Level 4.4 mmol/L (3.5-5.1) 4.0 mmol/L (3.5-5.1) Chloride Level 99 mmol/L (98-107) 100 mmol/L (98-107) Carbon Dioxide Level 29 mmol/L (21-32) 28 mmol/L (21-32) Anion Gap 7 (6-14) 8 (6-14) Blood Urea Nitrogen 23 mg/dL (7-20) 21 mg/dL (7-20) Creatinine 0.9 mg/dL (0.6-1.0) 0.8 mg/dL (0.6-1.0) Estimated GFR (Cockcroft-Gault) 74.1 84.8 Glucose Level 144 mg/dL (70-99) 99 mg/dL (70-99) Calcium Level 9.1 mg/dL (8.5-10.1) 9.1 mg/dL (8.5-10.1) Laboratory Tests Test 11/28/18 04:30 White Blood Count 12.7 x10^3/uL (4.0-11.0) Red Blood Count 3.22 x10^6/uL (3.50-5.40) Hemoglobin 9.5 g/dL (12.0-15.5) Hematocrit 29.0 % (36.0-47.0) Mean Corpuscular Volume 90 fL (79-100) Mean Corpuscular Hemoglobin 30 pg (25-35) Mean Corpuscular Hemoglobin Concent 33 g/dL (31-37) Red Cell Distribution Width 14.5 % (11.5-14.5) Platelet Count 363 x10^3/uL (140-400) Neutrophils (%) (Auto) 73 % (31-73) Lymphocytes (%) (Auto) 17 % (24-48) Monocytes (%) (Auto) 8 % (0-9) Eosinophils (%) (Auto) 2 % (0-3) Basophils (%) (Auto) 0 % (0-3) Neutrophils # (Auto) 9.3 x10^3uL (1.8-7.7) Lymphocytes # (Auto) 2.1 x10^3/uL (1.0-4.8) Monocytes # (Auto) 1.0 x10^3/uL (0.0-1.1) Eosinophils # (Auto) 0.2 x10^3/uL (0.0-0.7) Basophils # (Auto) 0.0 x10^3/uL (0.0-0.2) Sodium Level 136 mmol/L (136-145) Potassium Level 4.0 mmol/L (3.5-5.1) Chloride Level 100 mmol/L (98-107) Carbon Dioxide Level 28 mmol/L (21-32) Anion Gap 8 (6-14) Blood Urea Nitrogen 21 mg/dL (7-20) Creatinine 0.8 mg/dL (0.6-1.0) Estimated GFR (Cockcroft-Gault) 84.8 Glucose Level 99 mg/dL (70-99) Calcium Level 9.1 mg/dL (8.5-10.1) Medications Active Scripts Medications Dose Route/Sig Max Daily Dose Days Date Category Alprazolam 0.25 Mg Tablet 1 Tab PO TID 11/25/18 Reported Flovent 110MCG Hfa (Fluticasone Propionate) 12 Gm Aer.w.adap 2 Puff IH BID 11/25/18 Reported Spironolactone 25 Mg Tablet 1 Tab PO DAILY 11/25/18 Reported Protonix (Pantoprazole Sodium) 20 Mg Tablet.dr 40 Mg PO DAILY 11/25/18 Reported Oxycodone Hcl 5 Mg/5 Ml Solution 5 Mg PO PRN Q4HRS PRN 11/25/18 Reported Lisinopril 2.5 Mg Tablet 2.5 Mg PO DAILY 11/25/18 Reported Guaifenesin 600 Mg Tablet.er 600 Mg PO BID 11/25/18 Reported Sertraline Hcl 50 Mg Tablet 50 Mg PO DAILY 11/25/18 Reported Lasix (Furosemide) 20 Mg Tablet 1 Tab PO DAILY 10/04/18 Rx Proair Hfa Inhaler (Albuterol Sulfate) 8.5 Gm Hfa.aer.ad 1 Puff INH PRN Q6HRS PRN 14 10/04/18 Rx Tramadol Hcl 50 Mg Tablet 1 Tab PO PRN Q6HRS PRN 08/13/18 Reported Duoneb 0.5-3(2.5) Mg/3 Ml (Albuterol/Ipratropium) 3 Ml Ampul.neb 3 Ml NEB QID 04/17/18 Reported Zofran (Ondansetron Hcl) 4 Mg Tablet 1 Tab PO Q8HRS PRN 05/19/16 Rx Atorvastatin Calcium 40 Mg Tablet 40 Mg PO HS 09/24/15 Reported Carvedilol (Carvedilol) 6.25 Mg Tablet 6.25 Mg PO BIDWMEALS 09/24/15 Reported Vitamin D (Cholecalciferol (Vitamin D3)) 2,000 Unit Capsule 2,000 Unit PO BIDAFTMEAL 01/07/15 Reported Aspirin Ec (Aspirin) 325 Mg Tablet.dr 325 Mg PO DAILY 01/07/15 Reported Impression . IMPRESSION: 1. Acute on chronic respiratory failure. 2. Chronic obstructive pulmonary disease exacerbation. 3. Acute on chronic systolic heart failure. 4. Possible pneumonia. 5. Non-ST segment elevation myocardial infarction. 6. Eating disorder/bulimia. Impression: Slight prominence of the pulmonary vasculature is seen which could reflect mild CHF. Plan . add flonase for nasal congestion, may help cough FOLLOW CARD INPUT ANTIBX prednisone 40 mg daily w taper by 10 mg q 3d BD discussed w pt, rt [place] STEPHENS MD Nov 28, 2018 09:48
--- NOTE | 2018-11-28 10:16 | PDOC ---
PROGRESS NOTES Chief Complaint Chief Complaint NSTEMI CHF UTI COPD GERD Hypertension Pacemaker PEG tube for chronic vomiting Cardiac stents Defibrillator History of Present Illness History of Present Illness Patient was seen and examined lying in bed in her room this morning. She continues to complain of slight chest pain. Cardiology following. Her EF is 10- 20%. Previous records from have been obtained. She was started on IV milrinone yesterday, but was not able to tolerate it. She will continue on empiric IV clindamycin. Discussed with RN. Long-term prognosis guarded. Will consult palliative care to discuss long-term goals of care. Vitals Vitals Vital Signs Date Time Temp Pulse Resp B/P (MAP) Pulse Ox O2 Delivery O2 Flow Rate FiO2 11/28/18 08:25 75 136/74 11/28/18 08:25 98 Nasal Cannula 2.0 11/28/18 07:17 99.0 24 99.0 Physical Exam General: Alert, Oriented X3, Cooperative, No acute distress Heart: Regular rate (paced ), Normal S1, Normal S2, Other (4/6 systolic murmur to apex) Lungs: Crackles, Other (no rhonchi) Abdomen: Soft, No tenderness Extremities: No clubbing, No cyanosis, No edema Skin: No rashes, No breakdown, No significant lesion Labs LABS Laboratory Tests Test 11/28/18 04:30 White Blood Count 12.7 x10^3/uL (4.0-11.0) Red Blood Count 3.22 x10^6/uL (3.50-5.40) Hemoglobin 9.5 g/dL (12.0-15.5) Hematocrit 29.0 % (36.0-47.0) Mean Corpuscular Volume 90 fL (79-100) Mean Corpuscular Hemoglobin 30 pg (25-35) Mean Corpuscular Hemoglobin Concent 33 g/dL (31-37) Red Cell Distribution Width 14.5 % (11.5-14.5) Platelet Count 363 x10^3/uL (140-400) Neutrophils (%) (Auto) 73 % (31-73) Lymphocytes (%) (Auto) 17 % (24-48) Monocytes (%) (Auto) 8 % (0-9) Eosinophils (%) (Auto) 2 % (0-3) Basophils (%) (Auto) 0 % (0-3) Neutrophils # (Auto) 9.3 x10^3uL (1.8-7.7) Lymphocytes # (Auto) 2.1 x10^3/uL (1.0-4.8) Monocytes # (Auto) 1.0 x10^3/uL (0.0-1.1) Eosinophils # (Auto) 0.2 x10^3/uL (0.0-0.7) Basophils # (Auto) 0.0 x10^3/uL (0.0-0.2) Sodium Level 136 mmol/L (136-145) Potassium Level 4.0 mmol/L (3.5-5.1) Chloride Level 100 mmol/L (98-107) Carbon Dioxide Level 28 mmol/L (21-32) Anion Gap 8 (6-14) Blood Urea Nitrogen 21 mg/dL (7-20) Creatinine 0.8 mg/dL (0.6-1.0) Estimated GFR (Cockcroft-Gault) 84.8 Glucose Level 99 mg/dL (70-99) Calcium Level 9.1 mg/dL (8.5-10.1) Review of Systems Review of Systems Complains of chest pain and weakness. Denies fever or chills. Assessment and Plan Assessmemt and Plan Assessment: NSTEMI CHF UTI COPD GERD Hypertension Pacemaker PEG tube for chronic vomiting Cardiac stents Defibrillator Plan: 1. Cardiac monitoring 2. Consult palliative care for long-term goals of treatment 3. Empiric IV clindamycin 4. PO Lasix 5. DuoNebs 6. Home meds 7. PT/OT 8. Monitor labs 9. Oxygen via NC 10. Appreciate cardiology input 11. Discharge disposition pending Comment Review of Relevant I have reviewed the following items loren (where applicable) has been applied. Labs Laboratory Tests Test 11/26/18 11:40 11/27/18 04:00 11/28/18 04:30 Heparin Anti-Xa Act, Unfractionated 0.16 IU/mL (0.30-0.70) White Blood Count 16.1 x10^3/uL (4.0-11.0) 12.7 x10^3/uL (4.0-11.0) Red Blood Count 3.18 x10^6/uL (3.50-5.40) 3.22 x10^6/uL (3.50-5.40) Hemoglobin 9.4 g/dL (12.0-15.5) 9.5 g/dL (12.0-15.5) Hematocrit 28.8 % (36.0-47.0) 29.0 % (36.0-47.0) Mean Corpuscular Volume 91 fL (79-100) 90 fL (79-100) Mean Corpuscular Hemoglobin 30 pg (25-35) 30 pg (25-35) Mean Corpuscular Hemoglobin Concent 33 g/dL (31-37) 33 g/dL (31-37) Red Cell Distribution Width 14.5 % (11.5-14.5) 14.5 % (11.5-14.5) Platelet Count 380 x10^3/uL (140-400) 363 x10^3/uL (140-400) Neutrophils (%) (Auto) 91 % (31-73) 73 % (31-73) Lymphocytes (%) (Auto) 6 % (24-48) 17 % (24-48) Monocytes (%) (Auto) 3 % (0-9) 8 % (0-9) Eosinophils (%) (Auto) 0 % (0-3) 2 % (0-3) Basophils (%) (Auto) 0 % (0-3) 0 % (0-3) Neutrophils # (Auto) 14.7 x10^3uL (1.8-7.7) 9.3 x10^3uL (1.8-7.7) Lymphocytes # (Auto) 1.0 x10^3/uL (1.0-4.8) 2.1 x10^3/uL (1.0-4.8) Monocytes # (Auto) 0.5 x10^3/uL (0.0-1.1) 1.0 x10^3/uL (0.0-1.1) Eosinophils # (Auto) 0.0 x10^3/uL (0.0-0.7) 0.2 x10^3/uL (0.0-0.7) Basophils # (Auto) 0.0 x10^3/uL (0.0-0.2) 0.0 x10^3/uL (0.0-0.2) Sodium Level 135 mmol/L (136-145) 136 mmol/L (136-145) Potassium Level 4.4 mmol/L (3.5-5.1) 4.0 mmol/L (3.5-5.1) Chloride Level 99 mmol/L (98-107) 100 mmol/L (98-107) Carbon Dioxide Level 29 mmol/L (21-32) 28 mmol/L (21-32) Anion Gap 7 (6-14) 8 (6-14) Blood Urea Nitrogen 23 mg/dL (7-20) 21 mg/dL (7-20) Creatinine 0.9 mg/dL (0.6-1.0) 0.8 mg/dL (0.6-1.0) Estimated GFR (Cockcroft-Gault) 74.1 84.8 Glucose Level 144 mg/dL (70-99) 99 mg/dL (70-99) Calcium Level 9.1 mg/dL (8.5-10.1) 9.1 mg/dL (8.5-10.1) Laboratory Tests Test 11/28/18 04:30 White Blood Count 12.7 x10^3/uL (4.0-11.0) Red Blood Count 3.22 x10^6/uL (3.50-5.40) Hemoglobin 9.5 g/dL (12.0-15.5) Hematocrit 29.0 % (36.0-47.0) Mean Corpuscular Volume 90 fL (79-100) Mean Corpuscular Hemoglobin 30 pg (25-35) Mean Corpuscular Hemoglobin Concent 33 g/dL (31-37) Red Cell Distribution Width 14.5 % (11.5-14.5) Platelet Count 363 x10^3/uL (140-400) Neutrophils (%) (Auto) 73 % (31-73) Lymphocytes (%) (Auto) 17 % (24-48) Monocytes (%) (Auto) 8 % (0-9) Eosinophils (%) (Auto) 2 % (0-3) Basophils (%) (Auto) 0 % (0-3) Neutrophils # (Auto) 9.3 x10^3uL (1.8-7.7) Lymphocytes # (Auto) 2.1 x10^3/uL (1.0-4.8) Monocytes # (Auto) 1.0 x10^3/uL (0.0-1.1) Eosinophils # (Auto) 0.2 x10^3/uL (0.0-0.7) Basophils # (Auto) 0.0 x10^3/uL (0.0-0.2) Sodium Level 136 mmol/L (136-145) Potassium Level 4.0 mmol/L (3.5-5.1) Chloride Level 100 mmol/L (98-107) Carbon Dioxide Level 28 mmol/L (21-32) Anion Gap 8 (6-14) Blood Urea Nitrogen 21 mg/dL (7-20) Creatinine 0.8 mg/dL (0.6-1.0) Estimated GFR (Cockcroft-Gault) 84.8 Glucose Level 99 mg/dL (70-99) Calcium Level 9.1 mg/dL (8.5-10.1) Microbiology 11/24/18 Blood Culture - Preliminary, Resulted NO GROWTH AFTER 3 DAYS 11/24/18 Urine Culture - Final, Complete 11/24/18 Urine Culture Result 1 (SARAH BETH) - Final, Complete Medications Current Medications Adenosine (Adenocard) 6 mg STK-MED ONCE IV ; Start 11/24/18 at 22:35; Stop 11/24 at 22:36; Status DC Ipratropium [place] (Atrovent) 0.5 mg 1X ONCE NEB Last administered on at 23:00; Start 11/24/18 at 23:00; Stop 11/24/18 at 23:01; Status DC Albuterol Sulfate (Ventolin Neb Soln) 10 mg 1X ONCE CONT NEB Last administered on 11/24/18at 23:00; Start 11/24/18 at 23:00; Stop 11/24/18 at 23:01 ; Status DC Aspirin (Children'S Aspirin) 324 mg 1X ONCE PO Last administered on 11/24/18at 23:58; Start 11/24/18 at 23:45; Stop 11/24/18 at 23:46; Status DC Furosemide (Lasix) 40 mg 1X ONCE IVP Last administered on 11/25/18at 00:03; Start 11/25/18 at 00:00; Stop 11/25/18 at 00:01; Status DC Levofloxacin (Levaquin) 500 mg 1X ONCE PO Last administered on 11/25/18at 00:03 ; Start 11/25/18 at 00:00; Stop 11/25/18 at 00:01; Status DC Ondansetron HCl (Zofran) 4 mg PRN Q8HRS PRN IV NAUSEA/VOMITING 1ST CHOICE; Start 11/25/18 at 00:15; Stop 11/25/18 at 03:31; Status DC Acetaminophen (Tylenol) 650 mg PRN Q4HRS PRN PO FEVER; Start 11/25/18 at 00:15 ; Stop 11/25/18 at 03:31; Status DC Nitroglycerin (Nitrostat) 0.4 mg PRN Q5MIN PRN SL CHEST PAIN; Start 11/25/18 at 00:15; Stop 11/26/18 at 00:14; Status DC Albuterol/ Ipratropium (Duoneb) 3 ml RTQID NEB Last administered on 11/25/18at 11:43; Start 11/25/18 at 08:00; Stop 11/26/18 at 07:59; Status DC Alprazolam (Xanax) 0.25 mg 1X ONCE PO Last administered on 11/25/18at 01:00; Start 11/25/18 at 01:00; Stop 11/25/18 at 01:01; Status DC Ondansetron HCl (Zofran) 4 mg PRN Q4HRS PRN IV NAUSEA/VOMITING 1ST CHOICE Last administered on 11/28/18at 09:14; Start 11/25/18 at 03:30 Acetaminophen (Tylenol) 650 mg PRN Q6HRS PRN PO FEVER Last administered on 11/25at 21:23; Start 11/25/18 at 03:30; Stop 11/26/18 at 14:58; Status DC Methylprednisolone Sodium Succinate (SOLU-Medrol 40MG VIAL) 40 mg 1X ONCE IV Last administered on 11/25/18at 05:58; Start 11/25/18 at 04:00; Stop 11/25/18 at 04:01; Status DC Methylprednisolone Sodium Succinate (SOLU-Medrol 40MG VIAL) 40 mg Q12HR IV Last administered on 11/26/18at 21:19; Start 11/25/18 at 09:00; Stop 11/27/18 at 07:34; Status DC Albuterol Sulfate (Ventolin Neb Soln) 2.5 mg PRN Q4HRS PRN NEB SHORTNESS OF BREATH Last administered on 11/26/18 02:53; Start 11/25/18 at 03:45 Albuterol Sulfate (Ventolin Neb Soln) 8.5 mg PRN Q6HRS PRN INH SHORTNESS OF BREATH; Start 11/25/18 at 10:15; Status UNV Aspirin (Andrea Aspirin) 325 mg DAILY PO Last administered on 11/27/18 08:44; Start 11/26/18 at 09:00; Stop 11/28/18 at 07:10; Status DC Atorvastatin Calcium (Lipitor) 40 mg HS PO Last administered on 11/27/18 21:37 ; Start 11/25/18 at 21:00 Carvedilol (Coreg) 6.25 mg BIDWMEALS PO Last administered on 11/28/18 08:24; Start 11/25/18 at 10:00 Furosemide (Lasix) 20 mg DAILY PO Last administered on 11/28/18 08:24; Start 11/25/18 at 10:30 Guaifenesin (Mucinex) 600 mg BID PO Last administered on 11/27/18 21:37; Start 11/25/18 at 21:00 Albuterol/ Ipratropium (Duoneb) 3 ml RTQID NEB Last administered on 11/28/18 07:26; Start 11/25/18 at 13:00 Sertraline HCl (Zoloft) 50 mg DAILY PO Last administered on 11/28/18 08:24; Start 11/25/18 at 11:00 Tramadol HCl (Ultram) 50 mg PRN Q6HRS PRN PO MODERATE PAIN Last administered on 11/28/18 08:25; Start 11/25/18 at 10:15 Vitamin D (Vitamin D3) 2,000 unit BIDAFTMEAL PO Last administered on 11/28/18 08:25; Start 11/25/18 at 18:00 Non-Formulary Medication (Fluticasone Propionate (Flovent 110MCG Hfa)) 2 puff BID IH ; Start 11/25/18 at 21:00; Status UNV Lisinopril (Prinivil) 2.5 mg DAILY PO Last administered on 11/28/18 08:25; Start 11/25/18 at 11:00 Ondansetron HCl (Zofran Odt) 4 mg PRN Q8HRS PRN PO NAUSEA/VOMITING; Start 11/25 at 10:30 Oxycodone HCl (Roxicodone) 5 mg PRN Q4HRS PRN PO SEVERE PAIN Last administered on 11/27/18 14:06; Start 11/25/18 at 10:45 Pantoprazole Sodium (Protonix) 40 mg DAILYAC PO Last administered on 11/27/18 08:43; Start 11/25/18 at 11:00; Stop 11/28/18 at 07:11; Status DC Spironolactone (Aldactone) 25 mg DAILY PO Last administered on 11/28/18 08:24 ; Start 11/25/18 at 11:00 Budesonide (Pulmicort) 0.5 mg RTBID NEB Last administered on 11/28/18 07:26; Start 11/25/18 at 20:00 Alprazolam (Xanax) 0.25 mg TID PO Last administered on 11/28/18 08:24; Start 11/25/18 at 12:00 Heparin Sodium/ Dextrose 500 ml @ 0 mls/hr CONT PRN IV SEE I/O RECORD Last administered on 11/25/18 12:18; Start 11/25/18 at 11:15; Stop 11/26/18 at 17:14 ; Status DC Heparin Sodium (Porcine) (Heparin Sodium) 1,250 unit PRN Q6HRS PRN IV FOR UFH LEVEL LESS THAN 0.2 Last administered on 11/26/18 13:26; Start 11/25/18 at 11: 15; Stop 11/26/18 at 17:14; Status DC Clopidogrel Bisulfate (Plavix) 75 mg DAILYWBKFT PO Last administered on 08:25; Start 11/26/18 at 08:00 Clopidogrel Bisulfate (Plavix) 75 mg 1X ONCE PO Last administered on 12:19; Start 11/25/18 at 11:15; Stop 11/25/18 at 11:16; Status DC Clindamycin Phosphate 50 ml @ 100 mls/hr Q8HRS IV Last administered on 06:23; Start 11/25/18 at 14:00 Lidocaine (Lidoderm) 1 patch DAILY TD Last administered on 11/28/18 08:26; Start 11/25/18 at 14:00 Miscellaneous (Lidoderm Patch Removal) 1 ea QHS MC Last administered on 21:00; Start 11/25/18 at 21:00 Acetaminophen (Tylenol) 650 mg PRN Q6HRS PRN PO MILD PAIN; Start 11/25/18 at 14 :15 Multi-Ingredient Mouthwash/Gargle (Gi Cocktail) 20 ml 1X ONCE SWSW ; Start at 14:15; Stop 11/25/18 at 14:16; Status DC Lactobacillus Rhamnosus (Culturelle) 1 cap BID PO Last administered on 08:24; Start 11/26/18 at 21:00 Prednisone (Prednisone) 40 mg DAILY PO Last administered on 11/28/18 08:25; Start 11/27/18 at 09:00 Milrinone Lactate/ Dextrose 100 ml @ 5.46 mls/hr CONT PRN IV SEE I/O RECORD Last administered on 11/27/18 12:23; Start 11/27/18 at 10:15 Fluticasone Propionate (Flonase) 2 spray DAILY NS Last administered on 08:26; Start 11/28/18 at 09:00 Aspirin (Andrea Aspirin) 325 mg DAILYWBKFT PO Last administered on 11/28/18 08: 24; Start 11/28/18 at 08:00 Lansoprazole (Prevacid) 30 mg BIDBFRMEAL FT Last administered on 11/28/18 08: 24; Start 11/28/18 at 07:30 Active Scripts Active Lasix (Furosemide) 20 Mg Tablet 1 Tab PO DAILY Proair Hfa Inhaler (Albuterol Sulfate) 8.5 Gm Hfa.aer.ad 1 Puff INH PRN Q6HRS PRN 14 Days Zofran (Ondansetron Hcl) 4 Mg Tablet 1 Tab PO Q8HRS PRN Reported Alprazolam 0.25 Mg Tablet 1 Tab PO TID Flovent 110MCG Hfa (Fluticasone Propionate) 12 Gm Aer.w.adap 2 Puff IH BID Spironolactone 25 Mg Tablet 1 Tab PO DAILY Protonix (Pantoprazole Sodium) 20 Mg Tablet.dr 40 Mg PO DAILY Oxycodone Hcl 5 Mg/5 Ml Solution 5 Mg PO PRN Q4HRS PRN Lisinopril 2.5 Mg Tablet 2.5 Mg PO DAILY Guaifenesin 600 Mg Tablet.er 600 Mg PO BID Sertraline Hcl 50 Mg Tablet 50 Mg PO DAILY Tramadol Hcl 50 Mg Tablet 1 Tab PO PRN Q6HRS PRN Duoneb 0.5-3(2.5) Mg/3 Ml (Albuterol/Ipratropium) 3 Ml Ampul.neb 3 Ml NEB QID Atorvastatin Calcium 40 Mg Tablet 40 Mg PO HS Carvedilol (Carvedilol) 6.25 Mg Tablet 6.25 Mg PO BIDWMEALS Vitamin D (Cholecalciferol (Vitamin D3)) 2,000 Unit Capsule 2,000 Unit PO BIDAFTMEAL Aspirin Ec (Aspirin) 325 Mg Tablet.dr 325 Mg PO DAILY Vitals/I & O Vital Sign - Last 24 Hours 11/27/18 11/27/18 11/27/18 11/27/18 11:00 11:16 13:45 14:06 Temp 98.2 98.2 Pulse 70 68 Resp 18 B/P (MAP) 114/51 (72) 97/50 (66) Pulse Ox 98 O2 Delivery Room Air Nasal Cannula Room Air O2 Flow Rate 2.0 11/27/18 11/27/18 11/27/18 11/27/18 15:00 15:25 15:30 17:00 Temp 98.2 98.2 Pulse 77 76 Resp 18 B/P (MAP) 93/52 (66) 103/56 Pulse Ox 100 O2 Delivery Room Air Nasal Cannula Room Air O2 Flow Rate 2.0 11/27/18 11/27/18 11/27/18 11/27/18 19:15 20:00 20:04 20:05 Temp 98.4 98.4 Pulse 76 Resp 18 B/P (MAP) 103/56 (72) Pulse Ox 91 O2 Delivery Room Air Nasal Cannula Room Air Room Air O2 Flow Rate 2.0 11/27/18 11/28/18 11/28/18 11/28/18 23:38 03:00 07:17 07:27 Temp 98.0 98.1 99.0 98.0 98.1 99.0 Pulse 75 70 75 Resp 18 18 24 B/P (MAP) 120/57 (78) 111/55 (73) 136/74 (94) Pulse Ox 94 95 94 98 O2 Delivery Room Air Room Air Room Air Room Air 11/28/18 11/28/18 11/28/18 11/28/18 08:00 08:24 08:25 08:25 Pulse 75 75 B/P (MAP) 136/74 136/74 Pulse Ox 98 O2 Delivery Nasal Cannula Nasal Cannula O2 Flow Rate 2.0 2.0 Intake and Output 11/27/18 11/27/18 11/28/18 15:00 23:00 07:00 Intake Total 360 ml 50 ml Output Total 650 ml 0 ml Balance -290 ml 50 ml Nutrition Consultation Dietary Evaluation: Recommendations by RD: Increase Calorie Intake Comments: REC regular diet to promote increased PO intake, allow more food options REC TF bolus feeds per following: Osmolite 1.5 bolus 5x/day (237 ml/1 carton per bolus) w/60 ml water flushes before and after each feeding Expected Outcomes/Goals: PO intake and TF intake to meet >75% est needs Malnutrition Findings: Food and Nutrition Intake (Sev: <50% est energy req 5days Body Fat Depletion (Non Severe: Mild Depletion Weight Status: Underweight CASTLE,NIAL K III DO Nov 28, 2018 10:16
--- NOTE | 2018-11-28 10:48 | PDOC ---
Provider Note Provider Note S: Unable to tolerate milrinone. Had some chills. States she is tired but thinks she can go home. O: Frail, emaciated, cachectic Normal heart tones. Bilateral rhonchi No edema. Labs reviewed. Cr stable. Impression: 1. 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 s/p recent epicardial lead placement 3. HTN 4. Failure to thrive. Plan 1. At this time, no further therapies available to help improve quality of life. She is not a great candidate due to frailty for advanced HF therapies. 2. If patient wishes aggressive care, transfer to , otherwise, consider palliative care consult/Hospice. Thanks. Will be available if any further issues. BILL WILLS MD Nov 28, 2018 10:48
[2018-11-28 11:00] VITALS: BP 95/38
[2018-11-28] MEDS: oxyCODONE IR 5 MG TABLET PO PRN (14:18)
[2018-11-28] MEDS: guaiFENesin DM 200MG/20MG 10 ML SYRUP PO PRN (14:19)
[2018-11-28 15:00] VITALS: BP 80/45
[2018-11-28 19:20] VITALS: BP 112/58
[2018-11-28] MEDS: ATORVASTATIN CALCIUM 40 MG TABLET. PO SCH (20:09)
[2018-11-28] MEDS: PATCH REMOVAL. MC SCH (21:00)
[2018-11-28 22:50] VITALS: BP 110/59
[2018-11-29 03:00] VITALS: BP 124/63
[2018-11-29] MEDS: oxyCODONE IR 5 MG TABLET PO PRN ×3 (03:05→18:16)
[2018-11-29 04:46] LABS: BASO % 0 % (0-3); EOS # 0.3 x10^3/uL (0.0-0.7); EOS % 2 % (0-3); HEMATOCRIT 29.7 % (36.0-47.0); HEMOGLOBIN 9.7 g/dL (12.0-15.5); LYMPH # 1.9 x10^3/uL (1.0-4.8); LYMPH % 16 % (24-48); MEAN CORPUSCULAR HEMOGLOBIN 30 pg (25-35); MEAN CORPUSCULAR HGB CONC 33 g/dL (31-37); MEAN CORPUSCULAR VOLUME 90 fL (79-100); MONO % 9 % (0-9); NEUT # 8.5 x10^3uL (1.8-7.7); NEUT % 73 % (31-73); PLATELET COUNT 378 x10^3/uL (140-400); RED BLOOD COUNT 3.29 x10^6/uL (3.50-5.40); RED CELL DISTRIBUTION WIDTH 14.6 % (11.5-14.5); WHITE BLOOD COUNT 11.7 x10^3/uL (4.0-11.0)
[2018-11-29 05:01] LABS: CALCIUM 8.9 mg/dL (8.5-10.1); CREATININE 0.8 mg/dL (0.6-1.0); GFR 84.8; POTASSIUM 4.1 mmol/L (3.5-5.1)
[2018-11-29] MEDS: CLINDAMYCIN 600MG PREMIX 50 ML IV SCH ×3 (05:20→21:11)
[2018-11-29 07:00] VITALS: BP 130/65
[2018-11-29] MEDS: CHOLECALCIFEROL (VITAMIN D3) 1,000 UNIT TABLET PO SCH ×2 (08:10→17:10)
[2018-11-29] MEDS: LACTOBACILLUS RHAMNOSUS GG 1 CAPSULE. PO SCH ×2 (08:10→20:34)
[2018-11-29] MEDS: SPIRONOLACTONE 25 MG TABLET PO SCH (08:10)
[2018-11-29] MEDS: ASPIRIN 325 MG TABLET PO SCH (08:11)
[2018-11-29] MEDS: CLOPIDOGREL BISULFATE 75 MG TABLET PO SCH (08:11)
[2018-11-29] MEDS: LISINOPRIL 5 MG TABLET. PO SCH (08:11)
[2018-11-29] MEDS: LANSOPRAZOLE 30 MG TAB.RAP.DR FT SCH ×2 (08:11→17:10)
[2018-11-29] MEDS: predniSONE 20 MG TABLET PO SCH (08:11)
[2018-11-29] MEDS: SERTRALINE 50 MG TABLET. PO SCH (08:11)
[2018-11-29] MEDS: ALPRAZolam 0.25 MG TABLET PO SCH ×3 (08:11→20:34)
[2018-11-29] MEDS: FUROSEMIDE 20 MG TABLET PO SCH (08:11)
[2018-11-29] MEDS: CARVEDILOL 6.25 MG TABLET. PO SCH ×2 (08:11→17:11)
[2018-11-29] MEDS: FLUTICASONE 50MCG/NASAL SPRAY 16GM BOTTLE. NS SCH (08:13)
[2018-11-29] MEDS: LIDOCAINE (700MG/PATCH) PATCH. TD SCH (08:14)
[2018-11-29] MEDS: BUDESONIDE 0.5 MG/2 ML NEBU. NEB SCH ×2 (08:27→19:34)
[2018-11-29] MEDS: IPRATRPIUM/ALBUTEROL 0.5/2.5MG 3 ML NEBU. NEB SCH ×4 (08:27→19:34)
--- NOTE | 2018-11-29 08:44 | PDOC ---
PROGRESS NOTES Chief Complaint Chief Complaint NSTEMI CHF UTI COPD GERD Hypertension Pacemaker PEG tube for chronic vomiting Cardiac stents Defibrillator History of Present Illness History of Present Illness Patient was seen and examined lying in bed in her room this morning. Her EF is 10-20%. Cardiology following. She will continue on IV clindamycin. Discussed with RN. Long-term prognosis guarded. Palliative care has been consulted to discuss long-term goals of care. Vitals Vitals Vital Signs Date Time Temp Pulse Resp B/P (MAP) Pulse Ox O2 Delivery O2 Flow Rate FiO2 11/29/18 08:27 98 Nasal Cannula 2.0 11/29/18 08:11 75 124/63 11/29/18 07:00 98.6 18 98.6 Physical Exam General: Alert, Oriented X3, Cooperative, No acute distress Heart: Regular rate (paced ), Normal S1, Normal S2, Other (4/6 systolic murmur to apex) Lungs: Crackles, Other (no rhonchi) Abdomen: Soft, No tenderness Extremities: No clubbing, No cyanosis, No edema Skin: No rashes, No breakdown, No significant lesion Labs LABS Laboratory Tests Test 11/29/18 03:40 White Blood Count 11.7 x10^3/uL (4.0-11.0) Red Blood Count 3.29 x10^6/uL (3.50-5.40) Hemoglobin 9.7 g/dL (12.0-15.5) Hematocrit 29.7 % (36.0-47.0) Mean Corpuscular Volume 90 fL (79-100) Mean Corpuscular Hemoglobin 30 pg (25-35) Mean Corpuscular Hemoglobin Concent 33 g/dL (31-37) Red Cell Distribution Width 14.6 % (11.5-14.5) Platelet Count 378 x10^3/uL (140-400) Neutrophils (%) (Auto) 73 % (31-73) Lymphocytes (%) (Auto) 16 % (24-48) Monocytes (%) (Auto) 9 % (0-9) Eosinophils (%) (Auto) 2 % (0-3) Basophils (%) (Auto) 0 % (0-3) Neutrophils # (Auto) 8.5 x10^3uL (1.8-7.7) Lymphocytes # (Auto) 1.9 x10^3/uL (1.0-4.8) Monocytes # (Auto) 1.0 x10^3/uL (0.0-1.1) Eosinophils # (Auto) 0.3 x10^3/uL (0.0-0.7) Basophils # (Auto) 0.0 x10^3/uL (0.0-0.2) Sodium Level 137 mmol/L (136-145) Potassium Level 4.1 mmol/L (3.5-5.1) Chloride Level 101 mmol/L (98-107) Carbon Dioxide Level 30 mmol/L (21-32) Anion Gap 6 (6-14) Blood Urea Nitrogen 19 mg/dL (7-20) Creatinine 0.8 mg/dL (0.6-1.0) Estimated GFR (Cockcroft-Gault) 84.8 Glucose Level 93 mg/dL (70-99) Calcium Level 8.9 mg/dL (8.5-10.1) Review of Systems Review of Systems Complains of chest pain and weakness. Denies fever or chills. Assessment and Plan Assessmemt and Plan Assessment: NSTEMI CHF UTI COPD GERD Hypertension Pacemaker PEG tube for chronic vomiting Cardiac stents Defibrillator Plan: 1. Cardiac monitoring 2. Palliative care consulted for long-term goals of treatment 3. Empiric IV clindamycin 4. PO Lasix 5. DuoNebs 6. Home meds 7. PT/OT 8. Monitor labs 9. Oxygen via NC 10. Appreciate cardiology input 11. Discharge disposition pending Comment Review of Relevant I have reviewed the following items loren (where applicable) has been applied. Labs Laboratory Tests Test 11/28/18 04:30 11/29/18 03:40 White Blood Count 12.7 x10^3/uL (4.0-11.0) 11.7 x10^3/uL (4.0-11.0) Red Blood Count 3.22 x10^6/uL (3.50-5.40) 3.29 x10^6/uL (3.50-5.40) Hemoglobin 9.5 g/dL (12.0-15.5) 9.7 g/dL (12.0-15.5) Hematocrit 29.0 % (36.0-47.0) 29.7 % (36.0-47.0) Mean Corpuscular Volume 90 fL (79-100) 90 fL (79-100) Mean Corpuscular Hemoglobin 30 pg (25-35) 30 pg (25-35) Mean Corpuscular Hemoglobin Concent 33 g/dL (31-37) 33 g/dL (31-37) Red Cell Distribution Width 14.5 % (11.5-14.5) 14.6 % (11.5-14.5) Platelet Count 363 x10^3/uL (140-400) 378 x10^3/uL (140-400) Neutrophils (%) (Auto) 73 % (31-73) 73 % (31-73) Lymphocytes (%) (Auto) 17 % (24-48) 16 % (24-48) Monocytes (%) (Auto) 8 % (0-9) 9 % (0-9) Eosinophils (%) (Auto) 2 % (0-3) 2 % (0-3) Basophils (%) (Auto) 0 % (0-3) 0 % (0-3) Neutrophils # (Auto) 9.3 x10^3uL (1.8-7.7) 8.5 x10^3uL (1.8-7.7) Lymphocytes # (Auto) 2.1 x10^3/uL (1.0-4.8) 1.9 x10^3/uL (1.0-4.8) Monocytes # (Auto) 1.0 x10^3/uL (0.0-1.1) 1.0 x10^3/uL (0.0-1.1) Eosinophils # (Auto) 0.2 x10^3/uL (0.0-0.7) 0.3 x10^3/uL (0.0-0.7) Basophils # (Auto) 0.0 x10^3/uL (0.0-0.2) 0.0 x10^3/uL (0.0-0.2) Sodium Level 136 mmol/L (136-145) 137 mmol/L (136-145) Potassium Level 4.0 mmol/L (3.5-5.1) 4.1 mmol/L (3.5-5.1) Chloride Level 100 mmol/L (98-107) 101 mmol/L (98-107) Carbon Dioxide Level 28 mmol/L (21-32) 30 mmol/L (21-32) Anion Gap 8 (6-14) 6 (6-14) Blood Urea Nitrogen 21 mg/dL (7-20) 19 mg/dL (7-20) Creatinine 0.8 mg/dL (0.6-1.0) 0.8 mg/dL (0.6-1.0) Estimated GFR (Cockcroft-Gault) 84.8 84.8 Glucose Level 99 mg/dL (70-99) 93 mg/dL (70-99) Calcium Level 9.1 mg/dL (8.5-10.1) 8.9 mg/dL (8.5-10.1) Laboratory Tests Test 11/29/18 03:40 White Blood Count 11.7 x10^3/uL (4.0-11.0) Red Blood Count 3.29 x10^6/uL (3.50-5.40) Hemoglobin 9.7 g/dL (12.0-15.5) Hematocrit 29.7 % (36.0-47.0) Mean Corpuscular Volume 90 fL (79-100) Mean Corpuscular Hemoglobin 30 pg (25-35) Mean Corpuscular Hemoglobin Concent 33 g/dL (31-37) Red Cell Distribution Width 14.6 % (11.5-14.5) Platelet Count 378 x10^3/uL (140-400) Neutrophils (%) (Auto) 73 % (31-73) Lymphocytes (%) (Auto) 16 % (24-48) Monocytes (%) (Auto) 9 % (0-9) Eosinophils (%) (Auto) 2 % (0-3) Basophils (%) (Auto) 0 % (0-3) Neutrophils # (Auto) 8.5 x10^3uL (1.8-7.7) Lymphocytes # (Auto) 1.9 x10^3/uL (1.0-4.8) Monocytes # (Auto) 1.0 x10^3/uL (0.0-1.1) Eosinophils # (Auto) 0.3 x10^3/uL (0.0-0.7) Basophils # (Auto) 0.0 x10^3/uL (0.0-0.2) Sodium Level 137 mmol/L (136-145) Potassium Level 4.1 mmol/L (3.5-5.1) Chloride Level 101 mmol/L (98-107) Carbon Dioxide Level 30 mmol/L (21-32) Anion Gap 6 (6-14) Blood Urea Nitrogen 19 mg/dL (7-20) Creatinine 0.8 mg/dL (0.6-1.0) Estimated GFR (Cockcroft-Gault) 84.8 Glucose Level 93 mg/dL (70-99) Calcium Level 8.9 mg/dL (8.5-10.1) Microbiology 11/24/18 Blood Culture - Preliminary, Resulted NO GROWTH AFTER 4 DAYS 11/24/18 Urine Culture - Final, Complete 11/24/18 Urine Culture Result 1 (SARAH BETH) - Final, Complete Medications Current Medications Adenosine (Adenocard) 6 mg STK-MED ONCE IV ; Start 11/24/18 at 22:35; Stop 11/24 at 22:36; Status DC Ipratropium Anderson (Atrovent) 0.5 mg 1X ONCE NEB Last administered on at 23:00; Start 11/24/18 at 23:00; Stop 11/24/18 at 23:01; Status DC Albuterol Sulfate (Ventolin Neb Soln) 10 mg 1X ONCE CONT NEB Last administered on 11/24/18at 23:00; Start 11/24/18 at 23:00; Stop 11/24/18 at 23:01 ; Status DC Aspirin (Children'S Aspirin) 324 mg 1X ONCE PO Last administered on 11/24/18at 23:58; Start 11/24/18 at 23:45; Stop 11/24/18 at 23:46; Status DC Furosemide (Lasix) 40 mg 1X ONCE IVP Last administered on 11/25/18at 00:03; Start 11/25/18 at 00:00; Stop 11/25/18 at 00:01; Status DC Levofloxacin (Levaquin) 500 mg 1X ONCE PO Last administered on 11/25/18at 00:03 ; Start 11/25/18 at 00:00; Stop 11/25/18 at 00:01; Status DC Ondansetron HCl (Zofran) 4 mg PRN Q8HRS PRN IV NAUSEA/VOMITING 1ST CHOICE; Start 11/25/18 at 00:15; Stop 11/25/18 at 03:31; Status DC Acetaminophen (Tylenol) 650 mg PRN Q4HRS PRN PO FEVER; Start 11/25/18 at 00:15 ; Stop 11/25/18 at 03:31; Status DC Nitroglycerin (Nitrostat) 0.4 mg PRN Q5MIN PRN SL CHEST PAIN; Start 11/25/18 at 00:15; Stop 11/26/18 at 00:14; Status DC Albuterol/ Ipratropium (Duoneb) 3 ml RTQID NEB Last administered on 11/25/18at 11:43; Start 11/25/18 at 08:00; Stop 11/26/18 at 07:59; Status DC Alprazolam (Xanax) 0.25 mg 1X ONCE PO Last administered on 11/25/18at 01:00; Start 11/25/18 at 01:00; Stop 11/25/18 at 01:01; Status DC Ondansetron HCl (Zofran) 4 mg PRN Q4HRS PRN IV NAUSEA/VOMITING 1ST CHOICE Last administered on 11/28/18at 09:14; Start 11/25/18 at 03:30 Acetaminophen (Tylenol) 650 mg PRN Q6HRS PRN PO FEVER Last administered on 11/25at 21:23; Start 11/25/18 at 03:30; Stop 11/26/18 at 14:58; Status DC Methylprednisolone Sodium Succinate (SOLU-Medrol 40MG VIAL) 40 mg 1X ONCE IV Last administered on 11/25/18at 05:58; Start 11/25/18 at 04:00; Stop 11/25/18 at 04:01; Status DC Methylprednisolone Sodium Succinate (SOLU-Medrol 40MG VIAL) 40 mg Q12HR IV Last administered on 11/26/18at 21:19; Start 11/25/18 at 09:00; Stop 11/27/18 at 07:34; Status DC Albuterol Sulfate (Ventolin Neb Soln) 2.5 mg PRN Q4HRS PRN NEB SHORTNESS OF BREATH Last administered on 11/26/18at 02:53; Start 11/25/18 at 03:45 Albuterol Sulfate (Ventolin Neb Soln) 8.5 mg PRN Q6HRS PRN INH SHORTNESS OF BREATH; Start 11/25/18 at 10:15; Status UNV Aspirin (Andrea Aspirin) 325 mg DAILY PO Last administered on 11/27/18 08:44; Start 11/26/18 at 09:00; Stop 11/28/18 at 07:10; Status DC Atorvastatin Calcium (Lipitor) 40 mg HS PO Last administered on 11/28/18 20:09 ; Start 11/25/18 at 21:00 Carvedilol (Coreg) 6.25 mg BIDWMEALS PO Last administered on 11/29/18 08:11; Start 11/25/18 at 10:00 Furosemide (Lasix) 20 mg DAILY PO Last administered on 11/29/18 08:11; Start 11/25/18 at 10:30 Guaifenesin (Mucinex) 600 mg BID PO Last administered on 11/27/18 21:37; Start 11/25/18 at 21:00; Stop 11/28/18 at 13:48; Status DC Albuterol/ Ipratropium (Duoneb) 3 ml RTQID NEB Last administered on 11/29/18 08:27; Start 11/25/18 at 13:00 Sertraline HCl (Zoloft) 50 mg DAILY PO Last administered on 11/29/18 08:11; Start 11/25/18 at 11:00 Tramadol HCl (Ultram) 50 mg PRN Q6HRS PRN PO MODERATE PAIN Last administered on 11/28/18 08:25; Start 11/25/18 at 10:15 Vitamin D (Vitamin D3) 2,000 unit BIDAFTMEAL PO Last administered on 11/29/18 08:10; Start 11/25/18 at 18:00 Non-Formulary Medication (Fluticasone Propionate (Flovent 110MCG Hfa)) 2 puff BID IH ; Start 11/25/18 at 21:00; Status UNV Lisinopril (Prinivil) 2.5 mg DAILY PO Last administered on 11/29/18 08:11; Start 11/25/18 at 11:00 Ondansetron HCl (Zofran Odt) 4 mg PRN Q8HRS PRN PO NAUSEA/VOMITING; Start 11/25 at 10:30 Oxycodone HCl (Roxicodone) 5 mg PRN Q4HRS PRN PO SEVERE PAIN Last administered on 11/29/18 03:05; Start 11/25/18 at 10:45 Pantoprazole Sodium (Protonix) 40 mg DAILYAC PO Last administered on 11/27/18 08:43; Start 11/25/18 at 11:00; Stop 11/28/18 at 07:11; Status DC Spironolactone (Aldactone) 25 mg DAILY PO Last administered on 11/29/18 08:10 ; Start 11/25/18 at 11:00 Budesonide (Pulmicort) 0.5 mg RTBID NEB Last administered on 11/29/18 08:27; Start 11/25/18 at 20:00 Alprazolam (Xanax) 0.25 mg TID PO Last administered on 11/29/18 08:11; Start 11/25/18 at 12:00 Heparin Sodium/ Dextrose 500 ml @ 0 mls/hr CONT PRN IV SEE I/O RECORD Last administered on 11/25/18 12:18; Start 11/25/18 at 11:15; Stop 11/26/18 at 17:14 ; Status DC Heparin Sodium (Porcine) (Heparin Sodium) 1,250 unit PRN Q6HRS PRN IV FOR UFH LEVEL LESS THAN 0.2 Last administered on 11/26/18 13:26; Start 11/25/18 at 11: 15; Stop 11/26/18 at 17:14; Status DC Clopidogrel Bisulfate (Plavix) 75 mg DAILYWBKFT PO Last administered on 08:11; Start 11/26/18 at 08:00 Clopidogrel Bisulfate (Plavix) 75 mg 1X ONCE PO Last administered on 12:19; Start 11/25/18 at 11:15; Stop 11/25/18 at 11:16; Status DC Clindamycin Phosphate 50 ml @ 100 mls/hr Q8HRS IV Last administered on 05:20; Start 11/25/18 at 14:00 Lidocaine (Lidoderm) 1 patch DAILY TD Last administered on 11/29/18 08:14; Start 11/25/18 at 14:00 Miscellaneous (Lidoderm Patch Removal) 1 ea QHS MC Last administered on at 21:00; Start 11/25/18 at 21:00 Acetaminophen (Tylenol) 650 mg PRN Q6HRS PRN PO MILD PAIN; Start 11/25/18 at 14 :15 Multi-Ingredient Mouthwash/Gargle (Gi Cocktail) 20 ml 1X ONCE SWSW ; Start at 14:15; Stop 11/25/18 at 14:16; Status DC Lactobacillus Rhamnosus (Culturelle) 1 cap BID PO Last administered on at 08:10; Start 11/26/18 at 21:00 Prednisone (Prednisone) 40 mg DAILY PO Last administered on 11/29/18at 08:11; Start 11/27/18 at 09:00 Milrinone Lactate/ Dextrose 100 ml @ 5.46 mls/hr CONT PRN IV SEE I/O RECORD Last administered on 11/27/18at 12:23; Start 11/27/18 at 10:15 Fluticasone Propionate (Flonase) 2 spray DAILY NS Last administered on at 08:13; Start 11/28/18 at 09:00 Aspirin (Andrea Aspirin) 325 mg DAILYWBKFT PO Last administered on 11/29/18at 08: 11; Start 11/28/18 at 08:00 Lansoprazole (Prevacid) 30 mg BIDBFRMEAL FT Last administered on 11/29/18at 08: 11; Start 11/28/18 at 07:30 Guaifenesin (Robitussin Dm) 10 ml PRN Q6HRS PRN PO COUGH Last administered on at 14:19; Start 11/28/18 at 13:45 Active Scripts Active Lasix (Furosemide) 20 Mg Tablet 1 Tab PO DAILY Proair Hfa Inhaler (Albuterol Sulfate) 8.5 Gm Hfa.aer.ad 1 Puff INH PRN Q6HRS PRN 14 Days Zofran (Ondansetron Hcl) 4 Mg Tablet 1 Tab PO Q8HRS PRN Reported Alprazolam 0.25 Mg Tablet 1 Tab PO TID Flovent 110MCG Hfa (Fluticasone Propionate) 12 Gm Aer.w.adap 2 Puff IH BID Spironolactone 25 Mg Tablet 1 Tab PO DAILY Protonix (Pantoprazole Sodium) 20 Mg Tablet.dr 40 Mg PO DAILY Oxycodone Hcl 5 Mg/5 Ml Solution 5 Mg PO PRN Q4HRS PRN Lisinopril 2.5 Mg Tablet 2.5 Mg PO DAILY Guaifenesin 600 Mg Tablet.er 600 Mg PO BID Sertraline Hcl 50 Mg Tablet 50 Mg PO DAILY Tramadol Hcl 50 Mg Tablet 1 Tab PO PRN Q6HRS PRN Duoneb 0.5-3(2.5) Mg/3 Ml (Albuterol/Ipratropium) 3 Ml Ampul.neb 3 Ml NEB QID Atorvastatin Calcium 40 Mg Tablet 40 Mg PO HS Carvedilol (Carvedilol) 6.25 Mg Tablet 6.25 Mg PO BIDWMEALS Vitamin D (Cholecalciferol (Vitamin D3)) 2,000 Unit Capsule 2,000 Unit PO BIDAFTMEAL Aspirin Ec (Aspirin) 325 Mg Tablet.dr 325 Mg PO DAILY Vitals/I & O Vital Sign - Last 24 Hours 11/28/18 11/28/18 11/28/18 11/28/18 09:30 11:00 11:52 14:18 Pulse 56 Resp 24 B/P (MAP) 95/38 (57) Pulse Ox 89 O2 Delivery Nasal Cannula Room Air Nasal Cannula Room Air O2 Flow Rate 2.0 2.0 11/28/18 11/28/18 11/28/18 11/28/18 15:00 15:30 15:56 17:00 Temp 97.8 97.8 Pulse 56 56 Resp 24 B/P (MAP) 80/45 (57) 80/45 Pulse Ox 97 97 O2 Delivery Room Air Nasal Cannula Nasal Cannula O2 Flow Rate 2.0 2.0 2.0 11/28/18 11/28/18 11/28/18 11/28/18 19:20 19:34 19:35 19:43 Temp 97.9 97.9 Pulse 75 Resp 20 B/P (MAP) 112/58 (76) Pulse Ox 95 97 97 O2 Delivery Nasal Cannula Nasal Cannula Nasal Cannula Nasal Cannula O2 Flow Rate 2.0 2.0 2.0 2.0 11/28/18 11/29/18 11/29/18 11/29/18 22:50 03:00 03:05 04:05 Temp 98.2 98.4 98.2 98.4 Pulse 69 75 Resp 18 18 18 18 B/P (MAP) 110/59 (76) 124/63 (83) Pulse Ox 95 97 O2 Delivery Nasal Cannula Nasal Cannula Nasal Cannula O2 Flow Rate 2.0 2.0 2.0 11/29/18 11/29/18 11/29/18 11/29/18 07:00 08:11 08:11 08:27 Temp 98.6 98.6 Pulse 78 75 75 Resp 18 B/P (MAP) 130/65 (86) 124/63 124/63 Pulse Ox 93 98 O2 Delivery Nasal Cannula Nasal Cannula O2 Flow Rate 2.0 2.0 Intake and Output 11/28/18 11/28/18 11/29/18 14:59 22:59 06:59 Intake Total 240 ml 50 ml 0 ml Balance 240 ml 50 ml 0 ml Nutrition Consultation Dietary Evaluation: Recommendations by RD: Increase Calorie Intake Comments: REC regular diet to promote increased PO intake, allow more food options REC TF bolus feeds per following: Osmolite 1.5 bolus 5x/day (237 ml/1 carton per bolus) w/60 ml water flushes before and after each feeding Expected Outcomes/Goals: PO intake and TF intake to meet >75% est needs Malnutrition Findings: Food and Nutrition Intake (Sev: <50% est energy req 5days Body Fat Depletion (Non Severe: Mild Depletion Weight Status: Underweight CASTLE,NIAL K III DO Nov 29, 2018 08:44
--- NOTE | 2018-11-29 10:37 | PDOC ---
CARDIO Progress Notes Date and Time Date of Service 11/29/18 Time of Evaluation 1015 Subjective Subjective: No Chest Pain, No Palpitations, Other (c/o left side pain- sharp) Vitals Vitals Vital Signs Date Time Temp Pulse Resp B/P (MAP) Pulse Ox O2 Delivery O2 Flow Rate FiO2 11/29/18 08:27 98 Nasal Cannula 2.0 11/29/18 08:11 75 124/63 11/29/18 07:00 98.6 18 98.6 Weight Weight [ ] Input and Output Intake and Output Intake and Output 11/29/18 07:00 Intake Total 290 ml Balance 290 ml Intake Oral 240 ml IV Total 50 ml # Voids 3 Laboratory Labs Laboratory Tests Test 11/29/18 03:40 White Blood Count 11.7 x10^3/uL (4.0-11.0) Red Blood Count 3.29 x10^6/uL (3.50-5.40) Hemoglobin 9.7 g/dL (12.0-15.5) Hematocrit 29.7 % (36.0-47.0) Mean Corpuscular Volume 90 fL (79-100) Mean Corpuscular Hemoglobin 30 pg (25-35) Mean Corpuscular Hemoglobin Concent 33 g/dL (31-37) Red Cell Distribution Width 14.6 % (11.5-14.5) Platelet Count 378 x10^3/uL (140-400) Neutrophils (%) (Auto) 73 % (31-73) Lymphocytes (%) (Auto) 16 % (24-48) Monocytes (%) (Auto) 9 % (0-9) Eosinophils (%) (Auto) 2 % (0-3) Basophils (%) (Auto) 0 % (0-3) Neutrophils # (Auto) 8.5 x10^3uL (1.8-7.7) Lymphocytes # (Auto) 1.9 x10^3/uL (1.0-4.8) Monocytes # (Auto) 1.0 x10^3/uL (0.0-1.1) Eosinophils # (Auto) 0.3 x10^3/uL (0.0-0.7) Basophils # (Auto) 0.0 x10^3/uL (0.0-0.2) Sodium Level 137 mmol/L (136-145) Potassium Level 4.1 mmol/L (3.5-5.1) Chloride Level 101 mmol/L (98-107) Carbon Dioxide Level 30 mmol/L (21-32) Anion Gap 6 (6-14) Blood Urea Nitrogen 19 mg/dL (7-20) Creatinine 0.8 mg/dL (0.6-1.0) Estimated GFR (Cockcroft-Gault) 84.8 Glucose Level 93 mg/dL (70-99) Calcium Level 8.9 mg/dL (8.5-10.1) Microbiology Micro Microbiology 11/24/18 Blood Culture - Preliminary, Resulted NO GROWTH AFTER 4 DAYS 11/24/18 Urine Culture - Final, Complete 11/24/18 Urine Culture Result 1 (SARAH BETH) - Final, Complete Physical Exam HEENT: Neck Supple W Full Motion Chest: Symmetric LUNGS: Other (diminished bases) Heart: S1S2, RRR Abdomen: Soft N/T Extremities: No Edema Neurology: alert, oriented, follow commands Assessment Assessment 1. NSTEMI: trop peak 1.121. Cardiac cath 11/12/18 as noted below. 2. Acute on chronic systolic CHF; milrinone gtt discontinue due to reaction. Appears compensated. Does however c/o FLORES. 3. CAD: s/p PCI/stent to RCA in 2014. 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 No intervention performed. 4. AECOPD and possible PNA. SOA improved. Continue as per pulmonary. 5. Severe cardiomyopathy: LVEF at 10-15% 6. AICD in situ; ([employer]). s/p upgrade to GLASS TINTER-D last week with epicardial lead placement by CTS. Device interrogation without any acute abnormalities 7. HTN: controlled 8. Severe MR: not a surgical candidate 9. Chronic dysphagia; s/p PEG Recommendations Secondary prevention including DAPT with ASA and Plavix Continue optimization therapy including ACEi, BB, and lasix. Given significant comorbidities and severe CMP, recommend palliative care consult to determine goals of care. Patient reports she wants no further surgeries. Supportive care OSCAR CORRAL APRN Nov 29, 2018 10:37
[2018-11-29 11:00] VITALS: BP 118/56
--- NOTE | 2018-11-29 13:02 | PDOC ---
PULMONARY PROGRESS NOTES Subjective sob better, has cough, has nasal congestion Vitals Vital Signs Date Time Temp Pulse Resp B/P (MAP) Pulse Ox O2 Delivery O2 Flow Rate FiO2 11/29/18 12:32 18 Nasal Cannula 2.0 11/29/18 11:43 99 11/29/18 11:00 98.0 68 118/56 (76) 98.0 ROS: No Nausea, No Chest Pain, No Abdominal Pain, No Increase Cough General: Alert, No acute distress Lungs: Other (no rhonchi) Cardiovascular: S1, S2 Abdomen: Soft, Non-tender Neuro Exam: Alert Extremities: No Edema Skin: Warm Labs Laboratory Tests Test 11/28/18 04:30 11/29/18 03:40 White Blood Count 12.7 x10^3/uL (4.0-11.0) 11.7 x10^3/uL (4.0-11.0) Red Blood Count 3.22 x10^6/uL (3.50-5.40) 3.29 x10^6/uL (3.50-5.40) Hemoglobin 9.5 g/dL (12.0-15.5) 9.7 g/dL (12.0-15.5) Hematocrit 29.0 % (36.0-47.0) 29.7 % (36.0-47.0) Mean Corpuscular Volume 90 fL (79-100) 90 fL (79-100) Mean Corpuscular Hemoglobin 30 pg (25-35) 30 pg (25-35) Mean Corpuscular Hemoglobin Concent 33 g/dL (31-37) 33 g/dL (31-37) Red Cell Distribution Width 14.5 % (11.5-14.5) 14.6 % (11.5-14.5) Platelet Count 363 x10^3/uL (140-400) 378 x10^3/uL (140-400) Neutrophils (%) (Auto) 73 % (31-73) 73 % (31-73) Lymphocytes (%) (Auto) 17 % (24-48) 16 % (24-48) Monocytes (%) (Auto) 8 % (0-9) 9 % (0-9) Eosinophils (%) (Auto) 2 % (0-3) 2 % (0-3) Basophils (%) (Auto) 0 % (0-3) 0 % (0-3) Neutrophils # (Auto) 9.3 x10^3uL (1.8-7.7) 8.5 x10^3uL (1.8-7.7) Lymphocytes # (Auto) 2.1 x10^3/uL (1.0-4.8) 1.9 x10^3/uL (1.0-4.8) Monocytes # (Auto) 1.0 x10^3/uL (0.0-1.1) 1.0 x10^3/uL (0.0-1.1) Eosinophils # (Auto) 0.2 x10^3/uL (0.0-0.7) 0.3 x10^3/uL (0.0-0.7) Basophils # (Auto) 0.0 x10^3/uL (0.0-0.2) 0.0 x10^3/uL (0.0-0.2) Sodium Level 136 mmol/L (136-145) 137 mmol/L (136-145) Potassium Level 4.0 mmol/L (3.5-5.1) 4.1 mmol/L (3.5-5.1) Chloride Level 100 mmol/L (98-107) 101 mmol/L (98-107) Carbon Dioxide Level 28 mmol/L (21-32) 30 mmol/L (21-32) Anion Gap 8 (6-14) 6 (6-14) Blood Urea Nitrogen 21 mg/dL (7-20) 19 mg/dL (7-20) Creatinine 0.8 mg/dL (0.6-1.0) 0.8 mg/dL (0.6-1.0) Estimated GFR (Cockcroft-Gault) 84.8 84.8 Glucose Level 99 mg/dL (70-99) 93 mg/dL (70-99) Calcium Level 9.1 mg/dL (8.5-10.1) 8.9 mg/dL (8.5-10.1) Laboratory Tests Test 11/29/18 03:40 White Blood Count 11.7 x10^3/uL (4.0-11.0) Red Blood Count 3.29 x10^6/uL (3.50-5.40) Hemoglobin 9.7 g/dL (12.0-15.5) Hematocrit 29.7 % (36.0-47.0) Mean Corpuscular Volume 90 fL (79-100) Mean Corpuscular Hemoglobin 30 pg (25-35) Mean Corpuscular Hemoglobin Concent 33 g/dL (31-37) Red Cell Distribution Width 14.6 % (11.5-14.5) Platelet Count 378 x10^3/uL (140-400) Neutrophils (%) (Auto) 73 % (31-73) Lymphocytes (%) (Auto) 16 % (24-48) Monocytes (%) (Auto) 9 % (0-9) Eosinophils (%) (Auto) 2 % (0-3) Basophils (%) (Auto) 0 % (0-3) Neutrophils # (Auto) 8.5 x10^3uL (1.8-7.7) Lymphocytes # (Auto) 1.9 x10^3/uL (1.0-4.8) Monocytes # (Auto) 1.0 x10^3/uL (0.0-1.1) Eosinophils # (Auto) 0.3 x10^3/uL (0.0-0.7) Basophils # (Auto) 0.0 x10^3/uL (0.0-0.2) Sodium Level 137 mmol/L (136-145) Potassium Level 4.1 mmol/L (3.5-5.1) Chloride Level 101 mmol/L (98-107) Carbon Dioxide Level 30 mmol/L (21-32) Anion Gap 6 (6-14) Blood Urea Nitrogen 19 mg/dL (7-20) Creatinine 0.8 mg/dL (0.6-1.0) Estimated GFR (Cockcroft-Gault) 84.8 Glucose Level 93 mg/dL (70-99) Calcium Level 8.9 mg/dL (8.5-10.1) Medications Active Scripts Medications Dose Route/Sig Max Daily Dose Days Date Category Alprazolam 0.25 Mg Tablet 1 Tab PO TID 11/25/18 Reported Flovent 110MCG Hfa (Fluticasone Propionate) 12 Gm Aer.w.adap 2 Puff IH BID 11/25/18 Reported Spironolactone 25 Mg Tablet 1 Tab PO DAILY 11/25/18 Reported Protonix (Pantoprazole Sodium) 20 Mg Tablet.dr 40 Mg PO DAILY 11/25/18 Reported Oxycodone Hcl 5 Mg/5 Ml Solution 5 Mg PO PRN Q4HRS PRN 11/25/18 Reported Lisinopril 2.5 Mg Tablet 2.5 Mg PO DAILY 11/25/18 Reported Guaifenesin 600 Mg Tablet.er 600 Mg PO BID 11/25/18 Reported Sertraline Hcl 50 Mg Tablet 50 Mg PO DAILY 11/25/18 Reported Lasix (Furosemide) 20 Mg Tablet 1 Tab PO DAILY 10/04/18 Rx Proair Hfa Inhaler (Albuterol Sulfate) 8.5 Gm Hfa.aer.ad 1 Puff INH PRN Q6HRS PRN 14 10/04/18 Rx Tramadol Hcl 50 Mg Tablet 1 Tab PO PRN Q6HRS PRN 08/13/18 Reported Duoneb 0.5-3(2.5) Mg/3 Ml (Albuterol/Ipratropium) 3 Ml Ampul.neb 3 Ml NEB QID 04/17/18 Reported Zofran (Ondansetron Hcl) 4 Mg Tablet 1 Tab PO Q8HRS PRN 05/19/16 Rx Atorvastatin Calcium 40 Mg Tablet 40 Mg PO HS 09/24/15 Reported Carvedilol (Carvedilol) 6.25 Mg Tablet 6.25 Mg PO BIDWMEALS 09/24/15 Reported Vitamin D (Cholecalciferol (Vitamin D3)) 2,000 Unit Capsule 2,000 Unit PO BIDAFTMEAL 01/07/15 Reported Aspirin Ec (Aspirin) 325 Mg Tablet.dr 325 Mg PO DAILY 01/07/15 Reported Impression . IMPRESSION: 1. Acute on chronic respiratory failure. 2. Chronic obstructive pulmonary disease with acute exacerbation. 3. Acute on chronic systolic heart failure. 4. Possible pneumonia. 5. Non-ST segment elevation myocardial infarction. 6. Eating disorder/bulimia. Impression: Slight prominence of the pulmonary vasculature is seen which could reflect mild CHF. Plan . flonase for nasal congestion, may help cough FOLLOW CARD INPUT ANTIBX prednisone taper BD dc plans per PCP discussed w pt, RN JEFF MCDONNELL MD Nov 29, 2018 13:02
[2018-11-29 15:00] VITALS: BP 93/51
--- NOTE | 2018-11-29 15:23 | PDOC2 ---
PALLIATIVE CARE Palliative Care Note Palliative Care Consult requested by Dr. Rascon to address goals of care. Medical assessment per medical record NSTEMI CHF--EF 10-15% UTI COPD GERD Hypertension Pacemaker PEG tube for chronic vomiting Cardiac stents Defibrillator Family meeting tomorrow at 1430. PETRONA YUSUF Nov 29, 2018 15:23
[2018-11-29 19:31] VITALS: BP 137/71
[2018-11-29] MEDS: PATCH REMOVAL. MC SCH (20:33)
[2018-11-29] MEDS: ATORVASTATIN CALCIUM 40 MG TABLET. PO SCH (20:34)
[2018-11-29 22:35] VITALS: BP 123/60
[2018-11-30 02:31] VITALS: BP 141/70
[2018-11-30 04:19] LABS: BASO % 0 % (0-3); EOS # 0.3 x10^3/uL (0.0-0.7); EOS % 2 % (0-3); HEMATOCRIT 31.6 % (36.0-47.0); HEMOGLOBIN 10.4 g/dL (12.0-15.5); LYMPH # 1.9 x10^3/uL (1.0-4.8); LYMPH % 16 % (24-48); MEAN CORPUSCULAR HEMOGLOBIN 30 pg (25-35); MEAN CORPUSCULAR HGB CONC 33 g/dL (31-37); MEAN CORPUSCULAR VOLUME 90 fL (79-100); MONO # 1.1 x10^3/uL (0.0-1.1); MONO % 9 % (0-9); NEUT # 8.8 x10^3uL (1.8-7.7); NEUT % 73 % (31-73); PLATELET COUNT 383 x10^3/uL (140-400); RED BLOOD COUNT 3.52 x10^6/uL (3.50-5.40); RED CELL DISTRIBUTION WIDTH 14.9 % (11.5-14.5); WHITE BLOOD COUNT 12.1 x10^3/uL (4.0-11.0)
[2018-11-30 04:32] LABS: CREATININE 0.7 mg/dL (0.6-1.0); POTASSIUM 3.9 mmol/L (3.5-5.1)
[2018-11-30] MEDS: CLINDAMYCIN 600MG PREMIX 50 ML IV SCH (05:10)
[2018-11-30 07:00] VITALS: BP 138/78
[2018-11-30] MEDS: IPRATRPIUM/ALBUTEROL 0.5/2.5MG 3 ML NEBU. NEB SCH ×4 (08:00→19:32)
[2018-11-30] MEDS: BUDESONIDE 0.5 MG/2 ML NEBU. NEB SCH ×2 (08:00→19:33)
[2018-11-30] MEDS: CHOLECALCIFEROL (VITAMIN D3) 1,000 UNIT TABLET PO SCH ×2 (08:17→17:09)
[2018-11-30] MEDS: LIDOCAINE (700MG/PATCH) PATCH. TD SCH (08:18)
[2018-11-30] MEDS: FUROSEMIDE 20 MG TABLET PO SCH (08:19)
[2018-11-30] MEDS: LANSOPRAZOLE 30 MG TAB.RAP.DR FT SCH ×2 (08:19→17:09)
[2018-11-30] MEDS: CARVEDILOL 6.25 MG TABLET. PO SCH ×2 (08:19→17:08)
[2018-11-30] MEDS: CLOPIDOGREL BISULFATE 75 MG TABLET PO SCH (08:19)
[2018-11-30] MEDS: LACTOBACILLUS RHAMNOSUS GG 1 CAPSULE. PO SCH ×2 (08:19→21:22)
[2018-11-30] MEDS: LISINOPRIL 5 MG TABLET. PO SCH (08:20)
[2018-11-30] MEDS: predniSONE 20 MG TABLET PO SCH (08:21)
[2018-11-30] MEDS: ALPRAZolam 0.25 MG TABLET PO SCH ×3 (08:21→21:21)
[2018-11-30] MEDS: ASPIRIN 325 MG TABLET PO SCH (08:21)
[2018-11-30] MEDS: SPIRONOLACTONE 25 MG TABLET PO SCH (08:21)
[2018-11-30] MEDS: SERTRALINE 50 MG TABLET. PO SCH (08:21)
[2018-11-30] MEDS: FLUTICASONE 50MCG/NASAL SPRAY 16GM BOTTLE. NS SCH (08:22)
[2018-11-30] MEDS: guaiFENesin DM 200MG/20MG 10 ML SYRUP PO PRN (08:33)
--- NOTE | 2018-11-30 09:44 | PDOC ---
PULMONARY PROGRESS NOTES Subjective sob better, has cough, has nasal congestion Vitals Vital Signs Date Time Temp Pulse Resp B/P (MAP) Pulse Ox O2 Delivery O2 Flow Rate FiO2 11/30/18 08:20 75 138/78 11/30/18 08:00 Room Air 11/30/18 07:00 98.1 18 94 98.1 11/29/18 19:36 2.0 ROS: No Nausea, No Chest Pain, No Abdominal Pain, No Increase Cough General: Alert, No acute distress Lungs: Other (no rhonchi) Cardiovascular: S1, S2 Abdomen: Soft, Non-tender Neuro Exam: Alert Extremities: No Edema Skin: Warm Labs Laboratory Tests Test 11/29/18 03:40 11/30/18 02:55 White Blood Count 11.7 x10^3/uL (4.0-11.0) 12.1 x10^3/uL (4.0-11.0) Red Blood Count 3.29 x10^6/uL (3.50-5.40) 3.52 x10^6/uL (3.50-5.40) Hemoglobin 9.7 g/dL (12.0-15.5) 10.4 g/dL (12.0-15.5) Hematocrit 29.7 % (36.0-47.0) 31.6 % (36.0-47.0) Mean Corpuscular Volume 90 fL (79-100) 90 fL (79-100) Mean Corpuscular Hemoglobin 30 pg (25-35) 30 pg (25-35) Mean Corpuscular Hemoglobin Concent 33 g/dL (31-37) 33 g/dL (31-37) Red Cell Distribution Width 14.6 % (11.5-14.5) 14.9 % (11.5-14.5) Platelet Count 378 x10^3/uL (140-400) 383 x10^3/uL (140-400) Neutrophils (%) (Auto) 73 % (31-73) 73 % (31-73) Lymphocytes (%) (Auto) 16 % (24-48) 16 % (24-48) Monocytes (%) (Auto) 9 % (0-9) 9 % (0-9) Eosinophils (%) (Auto) 2 % (0-3) 2 % (0-3) Basophils (%) (Auto) 0 % (0-3) 0 % (0-3) Neutrophils # (Auto) 8.5 x10^3uL (1.8-7.7) 8.8 x10^3uL (1.8-7.7) Lymphocytes # (Auto) 1.9 x10^3/uL (1.0-4.8) 1.9 x10^3/uL (1.0-4.8) Monocytes # (Auto) 1.0 x10^3/uL (0.0-1.1) 1.1 x10^3/uL (0.0-1.1) Eosinophils # (Auto) 0.3 x10^3/uL (0.0-0.7) 0.3 x10^3/uL (0.0-0.7) Basophils # (Auto) 0.0 x10^3/uL (0.0-0.2) 0.0 x10^3/uL (0.0-0.2) Sodium Level 137 mmol/L (136-145) 136 mmol/L (136-145) Potassium Level 4.1 mmol/L (3.5-5.1) 3.9 mmol/L (3.5-5.1) Chloride Level 101 mmol/L (98-107) 99 mmol/L (98-107) Carbon Dioxide Level 30 mmol/L (21-32) 30 mmol/L (21-32) Anion Gap 6 (6-14) 7 (6-14) Blood Urea Nitrogen 19 mg/dL (7-20) 17 mg/dL (7-20) Creatinine 0.8 mg/dL (0.6-1.0) 0.7 mg/dL (0.6-1.0) Estimated GFR (Cockcroft-Gault) 84.8 99.0 Glucose Level 93 mg/dL (70-99) 88 mg/dL (70-99) Calcium Level 8.9 mg/dL (8.5-10.1) 9.0 mg/dL (8.5-10.1) Laboratory Tests Test 11/30/18 02:55 White Blood Count 12.1 x10^3/uL (4.0-11.0) Red Blood Count 3.52 x10^6/uL (3.50-5.40) Hemoglobin 10.4 g/dL (12.0-15.5) Hematocrit 31.6 % (36.0-47.0) Mean Corpuscular Volume 90 fL (79-100) Mean Corpuscular Hemoglobin 30 pg (25-35) Mean Corpuscular Hemoglobin Concent 33 g/dL (31-37) Red Cell Distribution Width 14.9 % (11.5-14.5) Platelet Count 383 x10^3/uL (140-400) Neutrophils (%) (Auto) 73 % (31-73) Lymphocytes (%) (Auto) 16 % (24-48) Monocytes (%) (Auto) 9 % (0-9) Eosinophils (%) (Auto) 2 % (0-3) Basophils (%) (Auto) 0 % (0-3) Neutrophils # (Auto) 8.8 x10^3uL (1.8-7.7) Lymphocytes # (Auto) 1.9 x10^3/uL (1.0-4.8) Monocytes # (Auto) 1.1 x10^3/uL (0.0-1.1) Eosinophils # (Auto) 0.3 x10^3/uL (0.0-0.7) Basophils # (Auto) 0.0 x10^3/uL (0.0-0.2) Sodium Level 136 mmol/L (136-145) Potassium Level 3.9 mmol/L (3.5-5.1) Chloride Level 99 mmol/L (98-107) Carbon Dioxide Level 30 mmol/L (21-32) Anion Gap 7 (6-14) Blood Urea Nitrogen 17 mg/dL (7-20) Creatinine 0.7 mg/dL (0.6-1.0) Estimated GFR (Cockcroft-Gault) 99.0 Glucose Level 88 mg/dL (70-99) Calcium Level 9.0 mg/dL (8.5-10.1) Medications Active Scripts Medications Dose Route/Sig Max Daily Dose Days Date Category Alprazolam 0.25 Mg Tablet 1 Tab PO TID 11/25/18 Reported Flovent 110MCG Hfa (Fluticasone Propionate) 12 Gm Aer.w.adap 2 Puff IH BID 11/25/18 Reported Spironolactone 25 Mg Tablet 1 Tab PO DAILY 11/25/18 Reported Protonix (Pantoprazole Sodium) 20 Mg Tablet.dr 40 Mg PO DAILY 11/25/18 Reported Oxycodone Hcl 5 Mg/5 Ml Solution 5 Mg PO PRN Q4HRS PRN 11/25/18 Reported Lisinopril 2.5 Mg Tablet 2.5 Mg PO DAILY 11/25/18 Reported Guaifenesin 600 Mg Tablet.er 600 Mg PO BID 11/25/18 Reported Sertraline Hcl 50 Mg Tablet 50 Mg PO DAILY 11/25/18 Reported Lasix (Furosemide) 20 Mg Tablet 1 Tab PO DAILY 10/04/18 Rx Proair Hfa Inhaler (Albuterol Sulfate) 8.5 Gm Hfa.aer.ad 1 Puff INH PRN Q6HRS PRN 14 10/04/18 Rx Tramadol Hcl 50 Mg Tablet 1 Tab PO PRN Q6HRS PRN 08/13/18 Reported Duoneb 0.5-3(2.5) Mg/3 Ml (Albuterol/Ipratropium) 3 Ml Ampul.neb 3 Ml NEB QID 04/17/18 Reported Zofran (Ondansetron Hcl) 4 Mg Tablet 1 Tab PO Q8HRS PRN 05/19/16 Rx Atorvastatin Calcium 40 Mg Tablet 40 Mg PO HS 09/24/15 Reported Carvedilol (Carvedilol) 6.25 Mg Tablet 6.25 Mg PO BIDWMEALS 09/24/15 Reported Vitamin D (Cholecalciferol (Vitamin D3)) 2,000 Unit Capsule 2,000 Unit PO BIDAFTMEAL 01/07/15 Reported Aspirin Ec (Aspirin) 325 Mg Tablet.dr 325 Mg PO DAILY 01/07/15 Reported Impression . IMPRESSION: 1. Acute on chronic respiratory failure. 2. Chronic obstructive pulmonary disease with acute exacerbation. 3. Acute on chronic systolic heart failure. 4. Possible pneumonia. 5. Non-ST segment elevation myocardial infarction. 6. Eating disorder/bulimia. Impression: Slight prominence of the pulmonary vasculature is seen which could reflect mild CHF. Plan . 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
[2018-11-30 11:00] VITALS: BP 103/54
--- NOTE | 2018-11-30 13:22 | PDOC ---
PROGRESS NOTES Chief Complaint Chief Complaint NSTEMI: trop peak 1.121. Cardiac cath 11/12/18 as noted below. Acute on chronic systolic CHF; milrinone gtt discontinue due to reaction. Currently seems compensated CAD: s/p PCI/stent to RCA in 2014. 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 No intervention performed. Acute on chronic systolic heart failure. Ejection fraction of 10-15%. Milrinone discontinued as above. Mildly better compensated today. Followed by the heart failure clinic. AECOPD and possible PNA. SOA improved. Continue as per pulmonary. Severe cardiomyopathy: LVEF at 10-15% AICD in situ; ([employer]). s/p upgrade to OUTSIDE [employer]-D last week with epicardial lead placement by CTS. Device interrogation without any acute abnormalities HTN: controlled Severe MR: not a surgical candidate Chronic dysphagia; s/p PEG tube for chronic vomiting AICD. Upgraded last week at with epicardial lead placement by surgery. Device interrogation without acute abnormalities. Recommendations as per cardiology Secondary prevention including DAPT with ASA and Plavix Continue optimization therapy including ACEi, BB, and lasix. Given significant comorbidities and severe CMP, recommend palliative care consult to determine goals of care. Patient reports she wants no further surgeries. Supportive care Plan: given her multiple comorbidities nita will be seen by palliative care today medically optimized reassess in the am History of Present Illness History of Present Illness Patient with no acute events reported overnight. The patient is not complaining of chest pain dyspnea on exertion at the present time no orthopnea, reassurance provided, all concerns addressed to the best of my abilities Vitals Vitals Vital Signs Date Time Temp Pulse Resp B/P (MAP) Pulse Ox O2 Delivery O2 Flow Rate FiO2 11/30/18 11:00 98.6 71 18 103/54 (70) 92 Room Air 98.6 11/29/18 19:36 2.0 Physical Exam General: Alert, Oriented X3, Cooperative, No acute distress Heart: Regular rate, Normal S1, Normal S2, Other (4/6 systolic murmur to apex) Lungs: Clear, Other (no rhonchi) Abdomen: Normal bowel sounds, Soft Extremities: No clubbing, No cyanosis Skin: No rashes, No breakdown Labs LABS Laboratory Tests Test 11/30/18 02:55 White Blood Count 12.1 x10^3/uL (4.0-11.0) Red Blood Count 3.52 x10^6/uL (3.50-5.40) Hemoglobin 10.4 g/dL (12.0-15.5) Hematocrit 31.6 % (36.0-47.0) Mean Corpuscular Volume 90 fL (79-100) Mean Corpuscular Hemoglobin 30 pg (25-35) Mean Corpuscular Hemoglobin Concent 33 g/dL (31-37) Red Cell Distribution Width 14.9 % (11.5-14.5) Platelet Count 383 x10^3/uL (140-400) Neutrophils (%) (Auto) 73 % (31-73) Lymphocytes (%) (Auto) 16 % (24-48) Monocytes (%) (Auto) 9 % (0-9) Eosinophils (%) (Auto) 2 % (0-3) Basophils (%) (Auto) 0 % (0-3) Neutrophils # (Auto) 8.8 x10^3uL (1.8-7.7) Lymphocytes # (Auto) 1.9 x10^3/uL (1.0-4.8) Monocytes # (Auto) 1.1 x10^3/uL (0.0-1.1) Eosinophils # (Auto) 0.3 x10^3/uL (0.0-0.7) Basophils # (Auto) 0.0 x10^3/uL (0.0-0.2) Sodium Level 136 mmol/L (136-145) Potassium Level 3.9 mmol/L (3.5-5.1) Chloride Level 99 mmol/L (98-107) Carbon Dioxide Level 30 mmol/L (21-32) Anion Gap 7 (6-14) Blood Urea Nitrogen 17 mg/dL (7-20) Creatinine 0.7 mg/dL (0.6-1.0) Estimated GFR (Cockcroft-Gault) 99.0 Glucose Level 88 mg/dL (70-99) Calcium Level 9.0 mg/dL (8.5-10.1) Review of Systems Review of Systems Recommend as per history of present illness otherwise 14 point review of system is negative Assessment and Plan Assessmemt and Plan Problems Medical Problems: (1) CHF (congestive heart failure) Status: Acute (2) Non-STEMI (non-ST elevated myocardial infarction) Status: Acute (3) Urinary tract infection Status: Acute Comment Review of Relevant I have reviewed the following items loren (where applicable) has been applied. Labs Laboratory Tests Test 11/29/18 03:40 11/30/18 02:55 White Blood Count 11.7 x10^3/uL (4.0-11.0) 12.1 x10^3/uL (4.0-11.0) Red Blood Count 3.29 x10^6/uL (3.50-5.40) 3.52 x10^6/uL (3.50-5.40) Hemoglobin 9.7 g/dL (12.0-15.5) 10.4 g/dL (12.0-15.5) Hematocrit 29.7 % (36.0-47.0) 31.6 % (36.0-47.0) Mean Corpuscular Volume 90 fL (79-100) 90 fL (79-100) Mean Corpuscular Hemoglobin 30 pg (25-35) 30 pg (25-35) Mean Corpuscular Hemoglobin Concent 33 g/dL (31-37) 33 g/dL (31-37) Red Cell Distribution Width 14.6 % (11.5-14.5) 14.9 % (11.5-14.5) Platelet Count 378 x10^3/uL (140-400) 383 x10^3/uL (140-400) Neutrophils (%) (Auto) 73 % (31-73) 73 % (31-73) Lymphocytes (%) (Auto) 16 % (24-48) 16 % (24-48) Monocytes (%) (Auto) 9 % (0-9) 9 % (0-9) Eosinophils (%) (Auto) 2 % (0-3) 2 % (0-3) Basophils (%) (Auto) 0 % (0-3) 0 % (0-3) Neutrophils # (Auto) 8.5 x10^3uL (1.8-7.7) 8.8 x10^3uL (1.8-7.7) Lymphocytes # (Auto) 1.9 x10^3/uL (1.0-4.8) 1.9 x10^3/uL (1.0-4.8) Monocytes # (Auto) 1.0 x10^3/uL (0.0-1.1) 1.1 x10^3/uL (0.0-1.1) Eosinophils # (Auto) 0.3 x10^3/uL (0.0-0.7) 0.3 x10^3/uL (0.0-0.7) Basophils # (Auto) 0.0 x10^3/uL (0.0-0.2) 0.0 x10^3/uL (0.0-0.2) Sodium Level 137 mmol/L (136-145) 136 mmol/L (136-145) Potassium Level 4.1 mmol/L (3.5-5.1) 3.9 mmol/L (3.5-5.1) Chloride Level 101 mmol/L (98-107) 99 mmol/L (98-107) Carbon Dioxide Level 30 mmol/L (21-32) 30 mmol/L (21-32) Anion Gap 6 (6-14) 7 (6-14) Blood Urea Nitrogen 19 mg/dL (7-20) 17 mg/dL (7-20) Creatinine 0.8 mg/dL (0.6-1.0) 0.7 mg/dL (0.6-1.0) Estimated GFR (Cockcroft-Gault) 84.8 99.0 Glucose Level 93 mg/dL (70-99) 88 mg/dL (70-99) Calcium Level 8.9 mg/dL (8.5-10.1) 9.0 mg/dL (8.5-10.1) Laboratory Tests Test 11/30/18 02:55 White Blood Count 12.1 x10^3/uL (4.0-11.0) Red Blood Count 3.52 x10^6/uL (3.50-5.40) Hemoglobin 10.4 g/dL (12.0-15.5) Hematocrit 31.6 % (36.0-47.0) Mean Corpuscular Volume 90 fL (79-100) Mean Corpuscular Hemoglobin 30 pg (25-35) Mean Corpuscular Hemoglobin Concent 33 g/dL (31-37) Red Cell Distribution Width 14.9 % (11.5-14.5) Platelet Count 383 x10^3/uL (140-400) Neutrophils (%) (Auto) 73 % (31-73) Lymphocytes (%) (Auto) 16 % (24-48) Monocytes (%) (Auto) 9 % (0-9) Eosinophils (%) (Auto) 2 % (0-3) Basophils (%) (Auto) 0 % (0-3) Neutrophils # (Auto) 8.8 x10^3uL (1.8-7.7) Lymphocytes # (Auto) 1.9 x10^3/uL (1.0-4.8) Monocytes # (Auto) 1.1 x10^3/uL (0.0-1.1) Eosinophils # (Auto) 0.3 x10^3/uL (0.0-0.7) Basophils # (Auto) 0.0 x10^3/uL (0.0-0.2) Sodium Level 136 mmol/L (136-145) Potassium Level 3.9 mmol/L (3.5-5.1) Chloride Level 99 mmol/L (98-107) Carbon Dioxide Level 30 mmol/L (21-32) Anion Gap 7 (6-14) Blood Urea Nitrogen 17 mg/dL (7-20) Creatinine 0.7 mg/dL (0.6-1.0) Estimated GFR (Cockcroft-Gault) 99.0 Glucose Level 88 mg/dL (70-99) Calcium Level 9.0 mg/dL (8.5-10.1) Microbiology 11/24/18 Blood Culture - Final, Complete NO GROWTH AFTER 5 DAYS 11/24/18 Urine Culture - Final, Complete 11/24/18 Urine Culture Result 1 (SARAH BETH) - Final, Complete Medications Current Medications Adenosine (Adenocard) 6 mg STK-MED ONCE IV ; Start 11/24/18 at 22:35; Stop 11/24 at 22:36; Status DC Ipratropium [place] (Atrovent) 0.5 mg 1X ONCE NEB Last administered on at 23:00; Start 11/24/18 at 23:00; Stop 11/24/18 at 23:01; Status DC Albuterol Sulfate (Ventolin Neb Soln) 10 mg 1X ONCE CONT NEB Last administered on 11/24/18at 23:00; Start 11/24/18 at 23:00; Stop 11/24/18 at 23:01 ; Status DC Aspirin (Children'S Aspirin) 324 mg 1X ONCE PO Last administered on 11/24/18at 23:58; Start 11/24/18 at 23:45; Stop 11/24/18 at 23:46; Status DC Furosemide (Lasix) 40 mg 1X ONCE IVP Last administered on 11/25/18at 00:03; Start 11/25/18 at 00:00; Stop 11/25/18 at 00:01; Status DC Levofloxacin (Levaquin) 500 mg 1X ONCE PO Last administered on 11/25/18at 00:03 ; Start 11/25/18 at 00:00; Stop 11/25/18 at 00:01; Status DC Ondansetron HCl (Zofran) 4 mg PRN Q8HRS PRN IV NAUSEA/VOMITING 1ST CHOICE; Start 11/25/18 at 00:15; Stop 11/25/18 at 03:31; Status DC Acetaminophen (Tylenol) 650 mg PRN Q4HRS PRN PO FEVER; Start 11/25/18 at 00:15 ; Stop 11/25/18 at 03:31; Status DC Nitroglycerin (Nitrostat) 0.4 mg PRN Q5MIN PRN SL CHEST PAIN; Start 11/25/18 at 00:15; Stop 11/26/18 at 00:14; Status DC Albuterol/ Ipratropium (Duoneb) 3 ml RTQID NEB Last administered on 11/25/18at 11:43; Start 11/25/18 at 08:00; Stop 11/26/18 at 07:59; Status DC Alprazolam (Xanax) 0.25 mg 1X ONCE PO Last administered on 11/25/18at 01:00; Start 11/25/18 at 01:00; Stop 11/25/18 at 01:01; Status DC Ondansetron HCl (Zofran) 4 mg PRN Q4HRS PRN IV NAUSEA/VOMITING 1ST CHOICE Last administered on 11/28/18at 09:14; Start 11/25/18 at 03:30 Acetaminophen (Tylenol) 650 mg PRN Q6HRS PRN PO FEVER Last administered on 11/25at 21:23; Start 11/25/18 at 03:30; Stop 11/26/18 at 14:58; Status DC Methylprednisolone Sodium Succinate (SOLU-Medrol 40MG VIAL) 40 mg 1X ONCE IV Last administered on 11/25/18at 05:58; Start 11/25/18 at 04:00; Stop 11/25/18 at 04:01; Status DC Methylprednisolone Sodium Succinate (SOLU-Medrol 40MG VIAL) 40 mg Q12HR IV Last administered on 11/26/18at 21:19; Start 11/25/18 at 09:00; Stop 11/27/18 at 07:34; Status DC Albuterol Sulfate (Ventolin Neb Soln) 2.5 mg PRN Q4HRS PRN NEB SHORTNESS OF BREATH Last administered on 11/26/18at 02:53; Start 11/25/18 at 03:45 Albuterol Sulfate (Ventolin Neb Soln) 8.5 mg PRN Q6HRS PRN INH SHORTNESS OF BREATH; Start 11/25/18 at 10:15; Status UNV Aspirin (Andrea Aspirin) 325 mg DAILY PO Last administered on 11/27/18at 08:44; Start 11/26/18 at 09:00; Stop 11/28/18 at 07:10; Status DC Atorvastatin Calcium (Lipitor) 40 mg HS PO Last administered on 11/29/18at 20:34 ; Start 11/25/18 at 21:00 Carvedilol (Coreg) 6.25 mg BIDWMEALS PO Last administered on 11/30/18at 08:19; Start 11/25/18 at 10:00 Furosemide (Lasix) 20 mg DAILY PO Last administered on 11/30/18at 08:19; Start 11/25/18 at 10:30 Guaifenesin (Mucinex) 600 mg BID PO Last administered on 11/27/18at 21:37; Start 11/25/18 at 21:00; Stop 11/28/18 at 13:48; Status DC Albuterol/ Ipratropium (Duoneb) 3 ml RTQID NEB Last administered on 11/30/18at 12:00; Start 11/25/18 at 13:00 Sertraline HCl (Zoloft) 50 mg DAILY PO Last administered on 11/30/18at 08:21; Start 11/25/18 at 11:00 Tramadol HCl (Ultram) 50 mg PRN Q6HRS PRN PO MODERATE PAIN Last administered on 11/28/18 08:25; Start 11/25/18 at 10:15 Vitamin D (Vitamin D3) 2,000 unit BIDAFTMEAL PO Last administered on 11/30/18 08:17; Start 11/25/18 at 18:00 Non-Formulary Medication (Fluticasone Propionate (Flovent 110MCG Hfa)) 2 puff BID IH ; Start 11/25/18 at 21:00; Status UNV Lisinopril (Prinivil) 2.5 mg DAILY PO Last administered on 11/30/18 08:20; Start 11/25/18 at 11:00 Ondansetron HCl (Zofran Odt) 4 mg PRN Q8HRS PRN PO NAUSEA/VOMITING; Start 11/25 at 10:30 Oxycodone HCl (Roxicodone) 5 mg PRN Q4HRS PRN PO SEVERE PAIN Last administered on 11/29/18 18:16; Start 11/25/18 at 10:45 Pantoprazole Sodium (Protonix) 40 mg DAILYAC PO Last administered on 11/27/18 08:43; Start 11/25/18 at 11:00; Stop 11/28/18 at 07:11; Status DC Spironolactone (Aldactone) 25 mg DAILY PO Last administered on 11/30/18 08:21 ; Start 11/25/18 at 11:00 Budesonide (Pulmicort) 0.5 mg RTBID NEB Last administered on 11/30/18 08:00; Start 11/25/18 at 20:00 Alprazolam (Xanax) 0.25 mg TID PO Last administered on 11/30/18 08:21; Start 11/25/18 at 12:00 Heparin Sodium/ Dextrose 500 ml @ 0 mls/hr CONT PRN IV SEE I/O RECORD Last administered on 11/25/18at 12:18; Start 11/25/18 at 11:15; Stop 11/26/18 at 17:14 ; Status DC Heparin Sodium (Porcine) (Heparin Sodium) 1,250 unit PRN Q6HRS PRN IV FOR UFH LEVEL LESS THAN 0.2 Last administered on 11/26/18 13:26; Start 11/25/18 at 11: 15; Stop 11/26/18 at 17:14; Status DC Clopidogrel Bisulfate (Plavix) 75 mg DAILYWBKFT PO Last administered on 08:19; Start 11/26/18 at 08:00 Clopidogrel Bisulfate (Plavix) 75 mg 1X ONCE PO Last administered on at 12:19; Start 11/25/18 at 11:15; Stop 11/25/18 at 11:16; Status DC Clindamycin Phosphate 50 ml @ 100 mls/hr Q8HRS IV Last administered on 05:10; Start 11/25/18 at 14:00; Stop 11/30/18 at 12:39; Status DC Lidocaine (Lidoderm) 1 patch DAILY TD Last administered on 11/30/18 08:18; Start 11/25/18 at 14:00 Miscellaneous (Lidoderm Patch Removal) 1 ea QHS MC Last administered on at 20:33; Start 11/25/18 at 21:00 Acetaminophen (Tylenol) 650 mg PRN Q6HRS PRN PO MILD PAIN; Start 11/25/18 at 14 :15 Multi-Ingredient Mouthwash/Gargle (Gi Cocktail) 20 ml 1X ONCE SWSW ; Start at 14:15; Stop 11/25/18 at 14:16; Status DC Lactobacillus Rhamnosus (Culturelle) 1 cap BID PO Last administered on 08:19; Start 11/26/18 at 21:00 Prednisone (Prednisone) 40 mg DAILY PO Last administered on 11/30/18 08:21; Start 11/27/18 at 09:00 Milrinone Lactate/ Dextrose 100 ml @ 5.46 mls/hr CONT PRN IV SEE I/O RECORD Last administered on 11/27/18 12:23; Start 11/27/18 at 10:15; Stop 11/29/18 at 11:54; Status DC Fluticasone Propionate (Flonase) 2 spray DAILY NS Last administered on at 08:22; Start 11/28/18 at 09:00 Aspirin (Andrea Aspirin) 325 mg DAILYWBKFT PO Last administered on 11/30/18at 08: 21; Start 11/28/18 at 08:00 Lansoprazole (Prevacid) 30 mg BIDBFRMEAL FT Last administered on 11/30/18at 08: 19; Start 11/28/18 at 07:30 Guaifenesin (Robitussin Dm) 10 ml PRN Q6HRS PRN PO COUGH Last administered on at 08:33; Start 11/28/18 at 13:45 Active Scripts Active Lasix (Furosemide) 20 Mg Tablet 1 Tab PO DAILY Proair Hfa Inhaler (Albuterol Sulfate) 8.5 Gm Hfa.aer.ad 1 Puff INH PRN Q6HRS PRN 14 Days Zofran (Ondansetron Hcl) 4 Mg Tablet 1 Tab PO Q8HRS PRN Reported Alprazolam 0.25 Mg Tablet 1 Tab PO TID Flovent 110MCG Hfa (Fluticasone Propionate) 12 Gm Aer.w.adap 2 Puff IH BID Spironolactone 25 Mg Tablet 1 Tab PO DAILY Protonix (Pantoprazole Sodium) 20 Mg Tablet. 40 Mg PO DAILY Oxycodone Hcl 5 Mg/5 Ml Solution 5 Mg PO PRN Q4HRS PRN Lisinopril 2.5 Mg Tablet 2.5 Mg PO DAILY Guaifenesin 600 Mg Tablet.er 600 Mg PO BID Sertraline Hcl 50 Mg Tablet 50 Mg PO DAILY Tramadol Hcl 50 Mg Tablet 1 Tab PO PRN Q6HRS PRN Duoneb 0.5-3(2.5) Mg/3 Ml (Albuterol/Ipratropium) 3 Ml Ampul.neb 3 Ml NEB QID Atorvastatin Calcium 40 Mg Tablet 40 Mg PO HS Carvedilol (Carvedilol) 6.25 Mg Tablet 6.25 Mg PO BIDWMEALS Vitamin D (Cholecalciferol (Vitamin D3)) 2,000 Unit Capsule 2,000 Unit PO BIDAFTMEAL Aspirin Ec (Aspirin) 325 Mg Tablet. 325 Mg PO DAILY Vitals/I & O Vital Sign - Last 24 Hours 11/29/18 11/29/18 11/29/18 11/29/18 15:00 16:05 17:11 18:16 Temp 98.2 98.2 Pulse 68 71 Resp 18 20 B/P (MAP) 93/51 (65) 111/58 Pulse Ox 95 99 O2 Delivery Nasal Cannula Nasal Cannula O2 Flow Rate 2.0 2.0 11/29/18 11/29/18 11/29/18 11/29/18 19:16 19:21 19:31 19:36 Temp 98.0 98.0 Pulse 71 Resp 18 18 B/P (MAP) 137/71 (93) Pulse Ox 94 94 O2 Delivery Nasal Cannula Nasal Cannula Room Air Nasal Cannula O2 Flow Rate 2.0 2.0 2.0 11/29/18 11/29/18 11/30/18 11/30/18 19:36 22:35 02:31 07:00 Temp 98.6 98.0 98.1 98.6 98.0 98.1 Pulse 68 69 75 Resp 18 16 18 B/P (MAP) 123/60 (81) 141/70 (93) 138/78 (98) Pulse Ox 94 93 90 94 O2 Delivery Nasal Cannula Room Air Room Air Room Air O2 Flow Rate 2.0 11/30/18 11/30/18 11/30/18 11/30/18 08:00 08:19 08:20 11:00 Temp 98.6 98.6 Pulse 75 75 71 Resp 18 B/P (MAP) 138/78 138/78 103/54 (70) Pulse Ox 92 O2 Delivery Room Air Room Air Intake and Output 11/29/18 11/29/18 11/30/18 14:59 22:59 06:59 Intake Total 375 ml 280 ml 500 ml Output Total 500 ml Balance 375 ml 280 ml 0 ml Nutrition Consultation Dietary Evaluation: Recommendations by RD: Increase Calorie Intake Comments: REC regular diet to promote increased PO intake, allow more food options REC TF bolus feeds per following: Osmolite 1.5 bolus 5x/day (237 ml/1 carton per bolus) w/60 ml water flushes before and after each feeding Expected Outcomes/Goals: PO intake and TF intake to meet >75% est needs Malnutrition Findings: Food and Nutrition Intake (Sev: <50% est energy req 5days Body Fat Depletion (Non Severe: Mild Depletion Weight Status: Underweight TERRY SCHERER MD Nov 30, 2018 13:22
[2018-11-30 15:00] VITALS: BP 137/86
--- NOTE | 2018-11-30 15:15 | PDOC2 ---
PALLIATIVE CARE Palliative Care Note Palliative Care Patient alert. Multiple family members here; Arcadio, daughter Kathi, Maxine, Cami, Carmen ; sisters Shelli, Rosemary. several granddaughters Reviewed medical condition; . STEMI: trop peak 1.121. Cardiac cath 11/12/18 as noted below. Acute on chronic systolic CHF; milrinone gtt discontinue due to reaction. Currently seems compensated CAD: s/p PCI/stent to RCA in 2014. 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 No intervention performed. Acute on chronic systolic heart failure. Ejection fraction of 10-15%. Milrinone discontinued as above. Mildly better compensated today. Followed by the heart failure clinic. AECOPD and possible PNA. SOA improved. Continue as per pulmonary. Severe cardiomyopathy: LVEF at 10-15% AICD in situ; ([employer]). s/p upgrade to [employer] last week with epicardial lead placement by CTS. Device interrogation without any acute abnormalities HTN: controlled Severe MR: not a surgical candidate Chronic dysphagia; s/p PEG tube for chronic vomiting AICD. Upgraded last week at with epicardial lead placement by surgery. Device interrogation without acute abnormalities. Recommendations as per cardiology Secondary prevention including DAPT with ASA and Plavix Continue optimization therapy including ACEi, BB, and lasix. Given significant comorbidities and severe CMP, recommend palliative care consult to determine goals of care. Patient reports she wants no further surgeries. Supportive care Patient and family want to continue current treatment plan. Home with Home Health. Would like more hours and support if possible. They are not interested in Palliative Home Health or Hospice. Continue AICD, PEG tube support. Patient does not want to be left alone. Family will need to provide more support. Feedlot Manager will need to visit with patient to find out want options are available. No changes in treatment plan. Patient adamant about not going to long term for strengthening. Plan;Continue current treatment plan Home with HH. May want to consider other agency. Continue Full Code. Full Aggressive care. PETRONA YUSUF Nov 30, 2018 15:15
[2018-11-30] MEDS: oxyCODONE IR 5 MG TABLET PO PRN ×2 (15:26→21:22)
--- NOTE | 2018-11-30 16:33 | PDOC ---
PROGRESS NOTES Subjective Subjective Patient seen and examined She is less short of breath today. Objective Objective Vital Signs Date Time Temp Pulse Resp B/P (MAP) Pulse Ox O2 Delivery O2 Flow Rate FiO2 11/30/18 15:26 16 Room Air 11/30/18 15:00 98.4 72 137/86 (103) 95 98.4 11/29/18 19:36 2.0 Intake and Output 11/30/18 07:00 Intake Total 1155 ml Output Total 500 ml Balance 655 ml Intake Oral 1155 ml Output Urine Total 500 ml # Voids 2 Physical Exam Abdomen: Normal bowel sounds Heart: Regular rate General: mild distress Lungs: Other (mildly decreased breath sounds) Assessment Assessment Problems Medical Problems: (1) CHF (congestive heart failure) Status: Acute (2) Non-STEMI (non-ST elevated myocardial infarction) Status: Acute (3) Urinary tract infection Status: Acute 1. NSTEMI: trop peak 1.121. Cardiac cath at on 11/12/18 as noted below. 2. Acute on chronic systolic CHF; milrinone gtt discontinue due to reaction. She is feeling better. Continue present treatment. 3. CAD: s/p PCI/stent to RCA in 2014. 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 No intervention performed. 4. AECOPD and possible PNA. SOA improved. Continue as per pulmonary. 5. Severe cardiomyopathy: LVEF at 10-15% 6. AICD in situ; ([employer]). 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 Device interrogation without any acute abnormalities 7. HTN: controlled 8. Severe MR: not a surgical candidate 9. Chronic dysphagia; s/p PEG 10. The patient is improved today. Will continue present treatment. Family meeting today regarding goals of care. Followed in the heart failure service. Comment Review of Relevant I have reviewed the following items loren (where applicable) has been applied. Labs Laboratory Tests Test 11/29/18 03:40 11/30/18 02:55 White Blood Count 11.7 x10^3/uL (4.0-11.0) 12.1 x10^3/uL (4.0-11.0) Red Blood Count 3.29 x10^6/uL (3.50-5.40) 3.52 x10^6/uL (3.50-5.40) Hemoglobin 9.7 g/dL (12.0-15.5) 10.4 g/dL (12.0-15.5) Hematocrit 29.7 % (36.0-47.0) 31.6 % (36.0-47.0) Mean Corpuscular Volume 90 fL (79-100) 90 fL (79-100) Mean Corpuscular Hemoglobin 30 pg (25-35) 30 pg (25-35) Mean Corpuscular Hemoglobin Concent 33 g/dL (31-37) 33 g/dL (31-37) Red Cell Distribution Width 14.6 % (11.5-14.5) 14.9 % (11.5-14.5) Platelet Count 378 x10^3/uL (140-400) 383 x10^3/uL (140-400) Neutrophils (%) (Auto) 73 % (31-73) 73 % (31-73) Lymphocytes (%) (Auto) 16 % (24-48) 16 % (24-48) Monocytes (%) (Auto) 9 % (0-9) 9 % (0-9) Eosinophils (%) (Auto) 2 % (0-3) 2 % (0-3) Basophils (%) (Auto) 0 % (0-3) 0 % (0-3) Neutrophils # (Auto) 8.5 x10^3uL (1.8-7.7) 8.8 x10^3uL (1.8-7.7) Lymphocytes # (Auto) 1.9 x10^3/uL (1.0-4.8) 1.9 x10^3/uL (1.0-4.8) Monocytes # (Auto) 1.0 x10^3/uL (0.0-1.1) 1.1 x10^3/uL (0.0-1.1) Eosinophils # (Auto) 0.3 x10^3/uL (0.0-0.7) 0.3 x10^3/uL (0.0-0.7) Basophils # (Auto) 0.0 x10^3/uL (0.0-0.2) 0.0 x10^3/uL (0.0-0.2) Sodium Level 137 mmol/L (136-145) 136 mmol/L (136-145) Potassium Level 4.1 mmol/L (3.5-5.1) 3.9 mmol/L (3.5-5.1) Chloride Level 101 mmol/L (98-107) 99 mmol/L (98-107) Carbon Dioxide Level 30 mmol/L (21-32) 30 mmol/L (21-32) Anion Gap 6 (6-14) 7 (6-14) Blood Urea Nitrogen 19 mg/dL (7-20) 17 mg/dL (7-20) Creatinine 0.8 mg/dL (0.6-1.0) 0.7 mg/dL (0.6-1.0) Estimated GFR (Cockcroft-Gault) 84.8 99.0 Glucose Level 93 mg/dL (70-99) 88 mg/dL (70-99) Calcium Level 8.9 mg/dL (8.5-10.1) 9.0 mg/dL (8.5-10.1) Laboratory Tests Test 11/30/18 02:55 White Blood Count 12.1 x10^3/uL (4.0-11.0) Red Blood Count 3.52 x10^6/uL (3.50-5.40) Hemoglobin 10.4 g/dL (12.0-15.5) Hematocrit 31.6 % (36.0-47.0) Mean Corpuscular Volume 90 fL (79-100) Mean Corpuscular Hemoglobin 30 pg (25-35) Mean Corpuscular Hemoglobin Concent 33 g/dL (31-37) Red Cell Distribution Width 14.9 % (11.5-14.5) Platelet Count 383 x10^3/uL (140-400) Neutrophils (%) (Auto) 73 % (31-73) Lymphocytes (%) (Auto) 16 % (24-48) Monocytes (%) (Auto) 9 % (0-9) Eosinophils (%) (Auto) 2 % (0-3) Basophils (%) (Auto) 0 % (0-3) Neutrophils # (Auto) 8.8 x10^3uL (1.8-7.7) Lymphocytes # (Auto) 1.9 x10^3/uL (1.0-4.8) Monocytes # (Auto) 1.1 x10^3/uL (0.0-1.1) Eosinophils # (Auto) 0.3 x10^3/uL (0.0-0.7) Basophils # (Auto) 0.0 x10^3/uL (0.0-0.2) Sodium Level 136 mmol/L (136-145) Potassium Level 3.9 mmol/L (3.5-5.1) Chloride Level 99 mmol/L (98-107) Carbon Dioxide Level 30 mmol/L (21-32) Anion Gap 7 (6-14) Blood Urea Nitrogen 17 mg/dL (7-20) Creatinine 0.7 mg/dL (0.6-1.0) Estimated GFR (Cockcroft-Gault) 99.0 Glucose Level 88 mg/dL (70-99) Calcium Level 9.0 mg/dL (8.5-10.1) Microbiology 11/24/18 Blood Culture - Final, Complete NO GROWTH AFTER 5 DAYS 11/24/18 Urine Culture - Final, Complete 11/24/18 Urine Culture Result 1 (SARAH BETH) - Final, Complete Medications Current Medications Adenosine (Adenocard) 6 mg STK-MED ONCE IV ; Start 11/24/18 at 22:35; Stop 11/24 at 22:36; Status DC Ipratropium Herald (Atrovent) 0.5 mg 1X ONCE NEB Last administered on at 23:00; Start 11/24/18 at 23:00; Stop 11/24/18 at 23:01; Status DC Albuterol Sulfate (Ventolin Neb Soln) 10 mg 1X ONCE CONT NEB Last administered on 11/24/18at 23:00; Start 11/24/18 at 23:00; Stop 11/24/18 at 23:01 ; Status DC Aspirin (Children'S Aspirin) 324 mg 1X ONCE PO Last administered on 11/24/18at 23:58; Start 11/24/18 at 23:45; Stop 11/24/18 at 23:46; Status DC Furosemide (Lasix) 40 mg 1X ONCE IVP Last administered on 11/25/18at 00:03; Start 11/25/18 at 00:00; Stop 11/25/18 at 00:01; Status DC Levofloxacin (Levaquin) 500 mg 1X ONCE PO Last administered on 11/25/18at 00:03 ; Start 11/25/18 at 00:00; Stop 11/25/18 at 00:01; Status DC Ondansetron HCl (Zofran) 4 mg PRN Q8HRS PRN IV NAUSEA/VOMITING 1ST CHOICE; Start 11/25/18 at 00:15; Stop 11/25/18 at 03:31; Status DC Acetaminophen (Tylenol) 650 mg PRN Q4HRS PRN PO FEVER; Start 11/25/18 at 00:15 ; Stop 11/25/18 at 03:31; Status DC Nitroglycerin (Nitrostat) 0.4 mg PRN Q5MIN PRN SL CHEST PAIN; Start 11/25/18 at 00:15; Stop 11/26/18 at 00:14; Status DC Albuterol/ Ipratropium (Duoneb) 3 ml RTQID NEB Last administered on 11/25/18at 11:43; Start 11/25/18 at 08:00; Stop 11/26/18 at 07:59; Status DC Alprazolam (Xanax) 0.25 mg 1X ONCE PO Last administered on 11/25/18at 01:00; Start 11/25/18 at 01:00; Stop 11/25/18 at 01:01; Status DC Ondansetron HCl (Zofran) 4 mg PRN Q4HRS PRN IV NAUSEA/VOMITING 1ST CHOICE Last administered on 11/28/18at 09:14; Start 11/25/18 at 03:30 Acetaminophen (Tylenol) 650 mg PRN Q6HRS PRN PO FEVER Last administered on 11/25at 21:23; Start 11/25/18 at 03:30; Stop 11/26/18 at 14:58; Status DC Methylprednisolone Sodium Succinate (SOLU-Medrol 40MG VIAL) 40 mg 1X ONCE IV Last administered on 11/25/18at 05:58; Start 11/25/18 at 04:00; Stop 11/25/18 at 04:01; Status DC Methylprednisolone Sodium Succinate (SOLU-Medrol 40MG VIAL) 40 mg Q12HR IV Last administered on 11/26/18at 21:19; Start 11/25/18 at 09:00; Stop 11/27/18 at 07:34; Status DC Albuterol Sulfate (Ventolin Neb Soln) 2.5 mg PRN Q4HRS PRN NEB SHORTNESS OF BREATH Last administered on 11/26/18at 02:53; Start 11/25/18 at 03:45 Albuterol Sulfate (Ventolin Neb Soln) 8.5 mg PRN Q6HRS PRN INH SHORTNESS OF BREATH; Start 11/25/18 at 10:15; Status UNV Aspirin (Andrea Aspirin) 325 mg DAILY PO Last administered on 11/27/18at 08:44; Start 11/26/18 at 09:00; Stop 11/28/18 at 07:10; Status DC Atorvastatin Calcium (Lipitor) 40 mg HS PO Last administered on 11/29/18at 20:34 ; Start 11/25/18 at 21:00 Carvedilol (Coreg) 6.25 mg BIDWMEALS PO Last administered on 11/30/18 08:19; Start 11/25/18 at 10:00 Furosemide (Lasix) 20 mg DAILY PO Last administered on 11/30/18 08:19; Start 11/25/18 at 10:30 Guaifenesin (Mucinex) 600 mg BID PO Last administered on 11/27/18 21:37; Start 11/25/18 at 21:00; Stop 11/28/18 at 13:48; Status DC Albuterol/ Ipratropium (Duoneb) 3 ml RTQID NEB Last administered on 11/30/18at 12:00; Start 11/25/18 at 13:00 Sertraline HCl (Zoloft) 50 mg DAILY PO Last administered on 11/30/18 08:21; Start 11/25/18 at 11:00 Tramadol HCl (Ultram) 50 mg PRN Q6HRS PRN PO MODERATE PAIN Last administered on 11/28/18 08:25; Start 11/25/18 at 10:15 Vitamin D (Vitamin D3) 2,000 unit BIDAFTMEAL PO Last administered on 11/30/18 08:17; Start 11/25/18 at 18:00 Non-Formulary Medication (Fluticasone Propionate (Flovent 110MCG Hfa)) 2 puff BID IH ; Start 11/25/18 at 21:00; Status UNV Lisinopril (Prinivil) 2.5 mg DAILY PO Last administered on 11/30/18 08:20; Start 11/25/18 at 11:00 Ondansetron HCl (Zofran Odt) 4 mg PRN Q8HRS PRN PO NAUSEA/VOMITING; Start 11/25 at 10:30 Oxycodone HCl (Roxicodone) 5 mg PRN Q4HRS PRN PO SEVERE PAIN Last administered on 11/30/18 15:26; Start 11/25/18 at 10:45 Pantoprazole Sodium (Protonix) 40 mg DAILYAC PO Last administered on 11/27/18 08:43; Start 11/25/18 at 11:00; Stop 11/28/18 at 07:11; Status DC Spironolactone (Aldactone) 25 mg DAILY PO Last administered on 11/30/18 08:21 ; Start 11/25/18 at 11:00 Budesonide (Pulmicort) 0.5 mg RTBID NEB Last administered on 11/30/18 08:00; Start 11/25/18 at 20:00 Alprazolam (Xanax) 0.25 mg TID PO Last administered on 11/30/18 15:26; Start 11/25/18 at 12:00 Heparin Sodium/ Dextrose 500 ml @ 0 mls/hr CONT PRN IV SEE I/O RECORD Last administered on 11/25/18 12:18; Start 11/25/18 at 11:15; Stop 11/26/18 at 17:14 ; Status DC Heparin Sodium (Porcine) (Heparin Sodium) 1,250 unit PRN Q6HRS PRN IV FOR UFH LEVEL LESS THAN 0.2 Last administered on 11/26/18 13:26; Start 11/25/18 at 11: 15; Stop 11/26/18 at 17:14; Status DC Clopidogrel Bisulfate (Plavix) 75 mg DAILYWBKFT PO Last administered on 08:19; Start 11/26/18 at 08:00 Clopidogrel Bisulfate (Plavix) 75 mg 1X ONCE PO Last administered on 12:19; Start 11/25/18 at 11:15; Stop 11/25/18 at 11:16; Status DC Clindamycin Phosphate 50 ml @ 100 mls/hr Q8HRS IV Last administered on 05:10; Start 11/25/18 at 14:00; Stop 11/30/18 at 12:39; Status DC Lidocaine (Lidoderm) 1 patch DAILY TD Last administered on 11/30/18 08:18; Start 11/25/18 at 14:00 Miscellaneous (Lidoderm Patch Removal) 1 ea QHS MC Last administered on 20:33; Start 11/25/18 at 21:00 Acetaminophen (Tylenol) 650 mg PRN Q6HRS PRN PO MILD PAIN; Start 11/25/18 at 14 :15 Multi-Ingredient Mouthwash/Gargle (Gi Cocktail) 20 ml 1X ONCE SWSW ; Start at 14:15; Stop 11/25/18 at 14:16; Status DC Lactobacillus Rhamnosus (Culturelle) 1 cap BID PO Last administered on 08:19; Start 11/26/18 at 21:00 Prednisone (Prednisone) 40 mg DAILY PO Last administered on 11/30/18 08:21; Start 11/27/18 at 09:00 Milrinone Lactate/ Dextrose 100 ml @ 5.46 mls/hr CONT PRN IV SEE I/O RECORD Last administered on 11/27/18 12:23; Start 11/27/18 at 10:15; Stop 11/29/18 at 11:54; Status DC Fluticasone Propionate (Flonase) 2 spray DAILY NS Last administered on 08:22; Start 11/28/18 at 09:00 Aspirin (Andrea Aspirin) 325 mg DAILYWBKFT PO Last administered on 11/30/18 08: 21; Start 11/28/18 at 08:00 Lansoprazole (Prevacid) 30 mg BIDBFRMEAL FT Last administered on 11/30/18 08: 19; Start 11/28/18 at 07:30 Guaifenesin (Robitussin Dm) 10 ml PRN Q6HRS PRN PO COUGH Last administered on 08:33; Start 11/28/18 at 13:45 Active Scripts Active Lasix (Furosemide) 20 Mg Tablet 1 Tab PO DAILY Proair Hfa Inhaler (Albuterol Sulfate) 8.5 Gm Hfa.aer.ad 1 Puff INH PRN Q6HRS PRN 14 Days Zofran (Ondansetron Hcl) 4 Mg Tablet 1 Tab PO Q8HRS PRN Reported Alprazolam 0.25 Mg Tablet 1 Tab PO TID Flovent 110MCG Hfa (Fluticasone Propionate) 12 Gm Aer.w.adap 2 Puff IH BID Spironolactone 25 Mg Tablet 1 Tab PO DAILY Protonix (Pantoprazole Sodium) 20 Mg Tablet.dr 40 Mg PO DAILY Oxycodone Hcl 5 Mg/5 Ml Solution 5 Mg PO PRN Q4HRS PRN Lisinopril 2.5 Mg Tablet 2.5 Mg PO DAILY Guaifenesin 600 Mg Tablet.er 600 Mg PO BID Sertraline Hcl 50 Mg Tablet 50 Mg PO DAILY Tramadol Hcl 50 Mg Tablet 1 Tab PO PRN Q6HRS PRN Duoneb 0.5-3(2.5) Mg/3 Ml (Albuterol/Ipratropium) 3 Ml Ampul.neb 3 Ml NEB QID Atorvastatin Calcium 40 Mg Tablet 40 Mg PO HS Carvedilol (Carvedilol) 6.25 Mg Tablet 6.25 Mg PO BIDWMEALS Vitamin D (Cholecalciferol (Vitamin D3)) 2,000 Unit Capsule 2,000 Unit PO BIDAFTMEAL Aspirin Ec (Aspirin) 325 Mg Tablet.dr 325 Mg PO DAILY Vitals/I & O Vital Sign - Last 24 Hours 11/29/18 11/29/18 11/29/18 11/29/18 17:11 18:16 19:16 19:21 Pulse 71 Resp 20 18 B/P (MAP) 111/58 O2 Delivery Nasal Cannula Nasal Cannula O2 Flow Rate 2.0 2.0 11/29/18 11/29/18 11/29/18 11/29/18 19:31 19:36 19:36 22:35 Temp 98.0 98.6 98.0 98.6 Pulse 71 68 Resp 18 18 B/P (MAP) 137/71 (93) 123/60 (81) Pulse Ox 94 94 94 93 O2 Delivery Room Air Nasal Cannula Nasal Cannula Room Air O2 Flow Rate 2.0 2.0 11/30/18 11/30/18 11/30/18 11/30/18 02:31 07:00 08:00 08:19 Temp 98.0 98.1 98.0 98.1 Pulse 69 75 75 Resp 16 18 B/P (MAP) 141/70 (93) 138/78 (98) 138/78 Pulse Ox 90 94 O2 Delivery Room Air Room Air Room Air 11/30/18 11/30/18 11/30/18 11/30/18 08:20 11:00 15:00 15:26 Temp 98.6 98.4 98.6 98.4 Pulse 75 71 72 Resp 18 18 16 B/P (MAP) 138/78 103/54 (70) 137/86 (103) Pulse Ox 92 95 O2 Delivery Room Air Room Air Room Air Intake and Output 11/29/18 11/29/18 11/30/18 15:00 23:00 07:00 Intake Total 375 ml 280 ml 500 ml Output Total 500 ml Balance 375 ml 280 ml 0 ml Nutrition Consultation Dietary Evaluation: Recommendations by RD: Increase Calorie Intake Comments: Continue regular diet to promote increased PO intake, allow more food options Continue TF bolus feeds per following: Osmolite 1.5 bolus 5x/day (237 ml/1 carton per bolus) w/60 ml water flushes before and after each feeding Expected Outcomes/Goals: PO intake and TF intake to meet >75% est needs - met, goal ongoing Malnutrition Findings: Food and Nutrition Intake (Sev: <50% est energy req 5days Body Fat Depletion (Non Severe: Mild Depletion Weight Status: Underweight EBEN MERRITT MD Nov 30, 2018 16:33
[2018-11-30 19:40] VITALS: BP 107/59
[2018-11-30] MEDS: PATCH REMOVAL. MC SCH (21:00)
[2018-11-30] MEDS: ATORVASTATIN CALCIUM 40 MG TABLET. PO SCH (21:22)
[2018-11-30 22:35] VITALS: BP 119/63
[2018-12-01 03:35] VITALS: BP 146/76
[2018-12-01 04:38] LABS: BASO % 0 % (0-3); EOS # 0.3 x10^3/uL (0.0-0.7); EOS % 3 % (0-3); HEMATOCRIT 31.7 % (36.0-47.0); HEMOGLOBIN 10.6 g/dL (12.0-15.5); LYMPH # 2.3 x10^3/uL (1.0-4.8); LYMPH % 20 % (24-48); MEAN CORPUSCULAR HEMOGLOBIN 30 pg (25-35); MEAN CORPUSCULAR HGB CONC 34 g/dL (31-37); MEAN CORPUSCULAR VOLUME 89 fL (79-100); MONO % 8 % (0-9); NEUT # 8.1 x10^3uL (1.8-7.7); NEUT % 69 % (31-73); PLATELET COUNT 377 x10^3/uL (140-400); RED BLOOD COUNT 3.55 x10^6/uL (3.50-5.40); RED CELL DISTRIBUTION WIDTH 14.4 % (11.5-14.5); WHITE BLOOD COUNT 11.7 x10^3/uL (4.0-11.0)
[2018-12-01 04:49] LABS: CREATININE 0.7 mg/dL (0.6-1.0); POTASSIUM 3.8 mmol/L (3.5-5.1)
[2018-12-01] MEDS: BUDESONIDE 0.5 MG/2 ML NEBU. NEB SCH (07:23)
[2018-12-01] MEDS: IPRATRPIUM/ALBUTEROL 0.5/2.5MG 3 ML NEBU. NEB SCH ×2 (07:23→12:25)
[2018-12-01] MEDS: LANSOPRAZOLE 30 MG TAB.RAP.DR FT SCH (07:30)
[2018-12-01 07:47] VITALS: BP 144/77
[2018-12-01] MEDS: LIDOCAINE (700MG/PATCH) PATCH. TD SCH (09:00)
[2018-12-01 09:28] VITALS: BP 144/76
[2018-12-01] MEDS: CHOLECALCIFEROL (VITAMIN D3) 1,000 UNIT TABLET PO SCH (09:29)
[2018-12-01] MEDS: ASPIRIN 325 MG TABLET PO SCH (09:29)
[2018-12-01] MEDS: ALPRAZolam 0.25 MG TABLET PO SCH (09:29)
[2018-12-01] MEDS: CLOPIDOGREL BISULFATE 75 MG TABLET PO SCH (09:29)
[2018-12-01] MEDS: LACTOBACILLUS RHAMNOSUS GG 1 CAPSULE. PO SCH (09:29)
[2018-12-01] MEDS: SPIRONOLACTONE 25 MG TABLET PO SCH (09:30)
[2018-12-01] MEDS: FUROSEMIDE 20 MG TABLET PO SCH (09:30)
[2018-12-01] MEDS: SERTRALINE 50 MG TABLET. PO SCH (09:30)
[2018-12-01] MEDS: LISINOPRIL 5 MG TABLET. PO SCH (09:30)
[2018-12-01] MEDS: CARVEDILOL 6.25 MG TABLET. PO SCH (09:31)
--- NOTE | 2018-12-01 09:31 | PDOC ---
PULMONARY PROGRESS NOTES Subjective sob better, has cough, has nasal congestion Vitals Vital Signs Date Time Temp Pulse Resp B/P (MAP) Pulse Ox O2 Delivery O2 Flow Rate FiO2 12/01/18 09:28 65 144/76 (98) 12/01/18 07:47 98.3 18 95 Room Air 98.3 11/30/18 22:22 2.0 ROS: No Nausea, No Chest Pain, No Abdominal Pain, No Increase Cough General: Alert, No acute distress Lungs: Clear Cardiovascular: S1, S2 Abdomen: Soft, Non-tender Neuro Exam: Alert Extremities: No Edema Skin: Warm Labs Laboratory Tests Test 11/30/18 02:55 12/01/18 03:50 White Blood Count 12.1 x10^3/uL (4.0-11.0) 11.7 x10^3/uL (4.0-11.0) Red Blood Count 3.52 x10^6/uL (3.50-5.40) 3.55 x10^6/uL (3.50-5.40) Hemoglobin 10.4 g/dL (12.0-15.5) 10.6 g/dL (12.0-15.5) Hematocrit 31.6 % (36.0-47.0) 31.7 % (36.0-47.0) Mean Corpuscular Volume 90 fL (79-100) 89 fL (79-100) Mean Corpuscular Hemoglobin 30 pg (25-35) 30 pg (25-35) Mean Corpuscular Hemoglobin Concent 33 g/dL (31-37) 34 g/dL (31-37) Red Cell Distribution Width 14.9 % (11.5-14.5) 14.4 % (11.5-14.5) Platelet Count 383 x10^3/uL (140-400) 377 x10^3/uL (140-400) Neutrophils (%) (Auto) 73 % (31-73) 69 % (31-73) Lymphocytes (%) (Auto) 16 % (24-48) 20 % (24-48) Monocytes (%) (Auto) 9 % (0-9) 8 % (0-9) Eosinophils (%) (Auto) 2 % (0-3) 3 % (0-3) Basophils (%) (Auto) 0 % (0-3) 0 % (0-3) Neutrophils # (Auto) 8.8 x10^3uL (1.8-7.7) 8.1 x10^3uL (1.8-7.7) Lymphocytes # (Auto) 1.9 x10^3/uL (1.0-4.8) 2.3 x10^3/uL (1.0-4.8) Monocytes # (Auto) 1.1 x10^3/uL (0.0-1.1) 1.0 x10^3/uL (0.0-1.1) Eosinophils # (Auto) 0.3 x10^3/uL (0.0-0.7) 0.3 x10^3/uL (0.0-0.7) Basophils # (Auto) 0.0 x10^3/uL (0.0-0.2) 0.0 x10^3/uL (0.0-0.2) Sodium Level 136 mmol/L (136-145) 136 mmol/L (136-145) Potassium Level 3.9 mmol/L (3.5-5.1) 3.8 mmol/L (3.5-5.1) Chloride Level 99 mmol/L (98-107) 101 mmol/L (98-107) Carbon Dioxide Level 30 mmol/L (21-32) 31 mmol/L (21-32) Anion Gap 7 (6-14) 4 (6-14) Blood Urea Nitrogen 17 mg/dL (7-20) 14 mg/dL (7-20) Creatinine 0.7 mg/dL (0.6-1.0) 0.7 mg/dL (0.6-1.0) Estimated GFR (Cockcroft-Gault) 99.0 99.0 Glucose Level 88 mg/dL (70-99) 94 mg/dL (70-99) Calcium Level 9.0 mg/dL (8.5-10.1) 9.0 mg/dL (8.5-10.1) Laboratory Tests Test 12/01/18 03:50 White Blood Count 11.7 x10^3/uL (4.0-11.0) Red Blood Count 3.55 x10^6/uL (3.50-5.40) Hemoglobin 10.6 g/dL (12.0-15.5) Hematocrit 31.7 % (36.0-47.0) Mean Corpuscular Volume 89 fL (79-100) Mean Corpuscular Hemoglobin 30 pg (25-35) Mean Corpuscular Hemoglobin Concent 34 g/dL (31-37) Red Cell Distribution Width 14.4 % (11.5-14.5) Platelet Count 377 x10^3/uL (140-400) Neutrophils (%) (Auto) 69 % (31-73) Lymphocytes (%) (Auto) 20 % (24-48) Monocytes (%) (Auto) 8 % (0-9) Eosinophils (%) (Auto) 3 % (0-3) Basophils (%) (Auto) 0 % (0-3) Neutrophils # (Auto) 8.1 x10^3uL (1.8-7.7) Lymphocytes # (Auto) 2.3 x10^3/uL (1.0-4.8) Monocytes # (Auto) 1.0 x10^3/uL (0.0-1.1) Eosinophils # (Auto) 0.3 x10^3/uL (0.0-0.7) Basophils # (Auto) 0.0 x10^3/uL (0.0-0.2) Sodium Level 136 mmol/L (136-145) Potassium Level 3.8 mmol/L (3.5-5.1) Chloride Level 101 mmol/L (98-107) Carbon Dioxide Level 31 mmol/L (21-32) Anion Gap 4 (6-14) Blood Urea Nitrogen 14 mg/dL (7-20) Creatinine 0.7 mg/dL (0.6-1.0) Estimated GFR (Cockcroft-Gault) 99.0 Glucose Level 94 mg/dL (70-99) Calcium Level 9.0 mg/dL (8.5-10.1) Medications Active Scripts Medications Dose Route/Sig Max Daily Dose Days Date Category Alprazolam 0.25 Mg Tablet 1 Tab PO TID 11/25/18 Reported Flovent 110MCG Hfa (Fluticasone Propionate) 12 Gm Aer.w.adap 2 Puff IH BID 11/25/18 Reported Spironolactone 25 Mg Tablet 1 Tab PO DAILY 11/25/18 Reported Protonix (Pantoprazole Sodium) 20 Mg Tablet.dr 40 Mg PO DAILY 11/25/18 Reported Oxycodone Hcl 5 Mg/5 Ml Solution 5 Mg PO PRN Q4HRS PRN 11/25/18 Reported Lisinopril 2.5 Mg Tablet 2.5 Mg PO DAILY 11/25/18 Reported Guaifenesin 600 Mg Tablet.er 600 Mg PO BID 11/25/18 Reported Sertraline Hcl 50 Mg Tablet 50 Mg PO DAILY 11/25/18 Reported Lasix (Furosemide) 20 Mg Tablet 1 Tab PO DAILY 10/04/18 Rx Proair Hfa Inhaler (Albuterol Sulfate) 8.5 Gm Hfa.aer.ad 1 Puff INH PRN Q6HRS PRN 14 10/04/18 Rx Tramadol Hcl 50 Mg Tablet 1 Tab PO PRN Q6HRS PRN 08/13/18 Reported Duoneb 0.5-3(2.5) Mg/3 Ml (Albuterol/Ipratropium) 3 Ml Ampul.neb 3 Ml NEB QID 04/17/18 Reported Zofran (Ondansetron Hcl) 4 Mg Tablet 1 Tab PO Q8HRS PRN 05/19/16 Rx Atorvastatin Calcium 40 Mg Tablet 40 Mg PO HS 09/24/15 Reported Carvedilol (Carvedilol) 6.25 Mg Tablet 6.25 Mg PO BIDWMEALS 09/24/15 Reported Vitamin D (Cholecalciferol (Vitamin D3)) 2,000 Unit Capsule 2,000 Unit PO BIDAFTMEAL 01/07/15 Reported Aspirin Ec (Aspirin) 325 Mg Tablet.dr 325 Mg PO DAILY 01/07/15 Reported Impression . IMPRESSION: 1. Acute on chronic respiratory failure. 2. Chronic obstructive pulmonary disease with acute exacerbation. 3. Acute on chronic systolic heart failure. 4. Possible pneumonia. 5. Non-ST segment elevation myocardial infarction. 6. Eating disorder/bulimia. Impression: Slight prominence of the pulmonary vasculature is seen which could reflect mild CHF. Plan . clinically better FOLLOW CARD INPUT ANTIBX off PO prednisone taper BD dc plans per PCP discussed w pt, lay out technician meeting done. munir full code JEFF MCDONNELL MD Dec 01, 2018 09:31
[2018-12-01] MEDS: FLUTICASONE 50MCG/NASAL SPRAY 16GM BOTTLE. NS SCH (09:32)
[2018-12-01 10:38] VITALS: BP 130/63
[2018-12-01] MEDS ORDERED: CLOP75TA PO (11:56)
--- NOTE | 2018-12-01 11:57 | DISCH ---
DISCHARGE WITH HOME HEALTH DISCHARGE INFORMATION: Discharge Date: Dec 01, 2018 Final Diagnosis: Problems Medical Problems: (1) CHF (congestive heart failure) Status: Acute (2) Non-STEMI (non-ST elevated myocardial infarction) Status: Acute (3) Urinary tract infection Status: Acute Condition on Discharge: Stable CODE STATUS: Code Status: Full HOME HEALTH: Face to Face: I certify this patient is under my care and that I, or a nurse practitioner or physician's pharmacy assistant working with me, had a face to face encounter that meets the physician face to face encounter requirements with this patient on []. Medical Complications: CHF Nursing Home For: Assess Cardiopulm Status Physical Therapy For: Evalulation/Treatment Occupational Therapy For: Evaluation/Treatment POST DISCHARGE ORDERS: Activity Instructions for Disc: Resume previous activity, Activity as tolerated Weight Bearing Status after Di: Full weight bearing DIET AFTER DISCHARGE: Cardiac Wound/Incision Care: No wound care needed CHECKS AFTER DISCHARGE: Checks after discharge: Check blood press - daily, Weigh Yourself Daily TREATMENT/EQUIPMENT ORDERS: Adaptive Equipment Issued: None Discharge Respiratory Equipmen: Oxygen CERTIFICATION STATEMENT: Certification Statement: Certification Statement: Based on the above finding, I certify that this patient is confined to the home and needs intermittent usp care, physical therapy and/or speech therapy, or continues to need occupational therapy.~ This patient is under my care, and I have initiated the establishment of the plan of care.~ This patient will be followed by myself or a community physician who will periodically review the plan of care. Home Meds Active Scripts Clopidogrel Bisulfate (CLOPIDOGREL) 75 Mg Tablet, 75 MG PO DAILYWBKFT for antiplatelet for 30 Days, #30 TAB 3 Refills Prov:TERRY SCHERER MD 12/01/18 Furosemide (LASIX) 20 Mg Tablet, 1 TAB PO DAILY for chf, #30 TAB 1 Refill Prov:MIRANDA MORENO MD 10/04/18 Albuterol Sulfate (PROAIR HFA INHALER) 8.5 Gm Hfa.aer.ad, 1 PUFF INH PRN Q6HRS PRN for SHORTNESS OF BREATH for 14 Days, INHALER 0 Refills Prov:MIRANDA MORENO MD 10/04/18 Ondansetron Hcl (ZOFRAN) 4 Mg Tablet, 1 TAB PO Q8HRS PRN for NAUSEA, #20 TAB Prov:KATIANA QUIROS DO 05/19/16 Reported Medications Alprazolam (ALPRAZOLAM) 0.25 Mg Tablet, 1 TAB PO TID for anxiety, #90 TAB 11/25/18 Fluticasone Propionate (FLOVENT 110MCG HFA) 12 Gm Aer.w.adap, 2 PUFF IH BID for eospiophilic esophagitis, #1 INHALER 2 Refills 11/25/18 Spironolactone (SPIRONOLACTONE) 25 Mg Tablet, 1 TAB PO DAILY for diuretic , #90 TAB 1 Refill 11/25/18 Pantoprazole Sodium (PROTONIX) 20 Mg Tablet.dr, 40 MG PO DAILY for acid reflux, TAB 11/25/18 Oxycodone Hcl (OXYCODONE HCL) 5 Mg/5 Ml Solution, 5 MG PO PRN Q4HRS PRN for PAIN 11/25/18 Lisinopril (LISINOPRIL) 2.5 Mg Tablet, 2.5 MG PO DAILY for blood pressure 11/25/18 Guaifenesin (GUAIFENESIN) 600 Mg Tablet.er, 600 MG PO BID for cough, TAB.SR 11/25/18 Sertraline Hcl (SERTRALINE HCL) 50 Mg Tablet, 50 MG PO DAILY for depression 11/25/18 Tramadol Hcl (TRAMADOL HCL) 50 Mg Tablet, 1 TAB PO PRN Q6HRS PRN for PAIN 08/13/18 Ipratropium/Albuterol Sulfate (DUONEB 0.5-3(2.5) MG/3 ML) 3 Ml Ampul.neb, 3 ML NEB QID, EACH 04/17/18 Atorvastatin Calcium (ATORVASTATIN CALCIUM) 40 Mg Tablet, 40 MG PO HS for FOR CHOLESTEROL, #30 TAB 0 Refills 09/24/15 Carvedilol (CARVEDILOL ) 6.25 Mg Tablet, 6.25 MG PO BIDWMEALS, TAB 09/24/15 Cholecalciferol (Vitamin D3) (VITAMIN D) 2,000 Unit Capsule, 2000 UNIT PO BIDAFTMEAL 01/07/15 Aspirin (ASPIRIN EC) 325 Mg Tablet.dr, 325 MG PO DAILY 01/07/15 Discontinued Reported Medications Lisinopril (LISINOPRIL) 20 Mg Tablet, 20 MG PO DAILY for FOR HYPERTENSION, #30 TAB 0 Refills 09/24/15 Discontinued Scripts Levofloxacin (LEVAQUIN) 500 Mg Tablet, 1 TAB PO DAILY for briocnhitis, #7 TAB Prov:MIRANDA MORENO MD 10/04/18 TERRY SCHERER MD Dec 01, 2018 11:57
--- NOTE | 2018-12-01 12:07 | PDOC3 ---
Discharge Summary Visit Information Date of Admission: Nov 24, 2018 Date of Discharge: Dec 01, 2018 Admitting Diagnosis: Dyspnea secondary to acute exacerbation of chronic CHF Final Diagnosis Problems Medical Problems: (1) CHF (congestive heart failure) Status: Acute (2) Non-STEMI (non-ST elevated myocardial infarction) Status: Acute (3) Urinary tract infection Status: Acute Brief Hospital Course Allergies Allergies Coded Allergies Type Severity Reaction Last Updated Verified Penicillins Allergy Intermediate hives 08/16/18 Yes Sulfa (Sulfonamide Antibiotics) Allergy Intermediate hives 08/16/18 Yes morphine Allergy Mild Hives 11/25/18 Yes Vital Signs Vital Signs Date Time Temp Pulse Resp B/P (MAP) Pulse Ox O2 Delivery O2 Flow Rate FiO2 12/01/18 10:38 98.4 73 18 130/63 (85) 95 Room Air 98.4 11/30/18 22:22 2.0 General: Alert, Oriented X3, Cooperative, No acute distress Heart: Regular rate, Normal S1, Normal S2, Other (4/6 systolic murmur to apex) Lungs: Clear, Other (no rhonchi) Abdomen: Normal bowel sounds, Soft Extremities: No clubbing, No cyanosis Skin: No rashes, No breakdown Lab Results Laboratory Tests Test 11/30/18 02:55 12/01/18 03:50 White Blood Count 12.1 x10^3/uL (4.0-11.0) 11.7 x10^3/uL (4.0-11.0) Red Blood Count 3.52 x10^6/uL (3.50-5.40) 3.55 x10^6/uL (3.50-5.40) Hemoglobin 10.4 g/dL (12.0-15.5) 10.6 g/dL (12.0-15.5) Hematocrit 31.6 % (36.0-47.0) 31.7 % (36.0-47.0) Mean Corpuscular Volume 90 fL (79-100) 89 fL (79-100) Mean Corpuscular Hemoglobin 30 pg (25-35) 30 pg (25-35) Mean Corpuscular Hemoglobin Concent 33 g/dL (31-37) 34 g/dL (31-37) Red Cell Distribution Width 14.9 % (11.5-14.5) 14.4 % (11.5-14.5) Platelet Count 383 x10^3/uL (140-400) 377 x10^3/uL (140-400) Neutrophils (%) (Auto) 73 % (31-73) 69 % (31-73) Lymphocytes (%) (Auto) 16 % (24-48) 20 % (24-48) Monocytes (%) (Auto) 9 % (0-9) 8 % (0-9) Eosinophils (%) (Auto) 2 % (0-3) 3 % (0-3) Basophils (%) (Auto) 0 % (0-3) 0 % (0-3) Neutrophils # (Auto) 8.8 x10^3uL (1.8-7.7) 8.1 x10^3uL (1.8-7.7) Lymphocytes # (Auto) 1.9 x10^3/uL (1.0-4.8) 2.3 x10^3/uL (1.0-4.8) Monocytes # (Auto) 1.1 x10^3/uL (0.0-1.1) 1.0 x10^3/uL (0.0-1.1) Eosinophils # (Auto) 0.3 x10^3/uL (0.0-0.7) 0.3 x10^3/uL (0.0-0.7) Basophils # (Auto) 0.0 x10^3/uL (0.0-0.2) 0.0 x10^3/uL (0.0-0.2) Sodium Level 136 mmol/L (136-145) 136 mmol/L (136-145) Potassium Level 3.9 mmol/L (3.5-5.1) 3.8 mmol/L (3.5-5.1) Chloride Level 99 mmol/L (98-107) 101 mmol/L (98-107) Carbon Dioxide Level 30 mmol/L (21-32) 31 mmol/L (21-32) Anion Gap 7 (6-14) 4 (6-14) Blood Urea Nitrogen 17 mg/dL (7-20) 14 mg/dL (7-20) Creatinine 0.7 mg/dL (0.6-1.0) 0.7 mg/dL (0.6-1.0) Estimated GFR (Cockcroft-Gault) 99.0 99.0 Glucose Level 88 mg/dL (70-99) 94 mg/dL (70-99) Calcium Level 9.0 mg/dL (8.5-10.1) 9.0 mg/dL (8.5-10.1) Laboratory Tests Test 12/01/18 03:50 White Blood Count 11.7 x10^3/uL (4.0-11.0) Red Blood Count 3.55 x10^6/uL (3.50-5.40) Hemoglobin 10.6 g/dL (12.0-15.5) Hematocrit 31.7 % (36.0-47.0) Mean Corpuscular Volume 89 fL (79-100) Mean Corpuscular Hemoglobin 30 pg (25-35) Mean Corpuscular Hemoglobin Concent 34 g/dL (31-37) Red Cell Distribution Width 14.4 % (11.5-14.5) Platelet Count 377 x10^3/uL (140-400) Neutrophils (%) (Auto) 69 % (31-73) Lymphocytes (%) (Auto) 20 % (24-48) Monocytes (%) (Auto) 8 % (0-9) Eosinophils (%) (Auto) 3 % (0-3) Basophils (%) (Auto) 0 % (0-3) Neutrophils # (Auto) 8.1 x10^3uL (1.8-7.7) Lymphocytes # (Auto) 2.3 x10^3/uL (1.0-4.8) Monocytes # (Auto) 1.0 x10^3/uL (0.0-1.1) Eosinophils # (Auto) 0.3 x10^3/uL (0.0-0.7) Basophils # (Auto) 0.0 x10^3/uL (0.0-0.2) Sodium Level 136 mmol/L (136-145) Potassium Level 3.8 mmol/L (3.5-5.1) Chloride Level 101 mmol/L (98-107) Carbon Dioxide Level 31 mmol/L (21-32) Anion Gap 4 (6-14) Blood Urea Nitrogen 14 mg/dL (7-20) Creatinine 0.7 mg/dL (0.6-1.0) Estimated GFR (Cockcroft-Gault) 99.0 Glucose Level 94 mg/dL (70-99) Calcium Level 9.0 mg/dL (8.5-10.1) Brief Hospital Course The patient is a pleasant 73-year-old female who presented to ER with shortness of breath. She just had a left heart catheterization with possible intervention last week and an AICD replacement last week as well at . She was also treated with antibiotics at . She was discharged on Thursday last week. She had increasing shortness of breath. She has some associated chest pain that has been occurring for several days. While in the ER, she is noted to have some heart failure and COPD exacerbation and UTI. I have discussed the case with ER physician. We are going to admit the patient and consult Cardiology. (copied from H and P) Patient is a 73-year-old female who has multiple comorbidities including chronic congestive heart failure systolic dysfunction and an AICD in place given her poor ejection fraction. Patient was admitted for medical optimization. Echocardiogram was done with the following results: he Left Ventricle is mildly dilated. The systolic function is severly impaired. The Ejection Fraction is 20-25%. There is global hypokinesis of the left ventricle. There is mild to moderate concentric left ventricular hypertrophy. There is no significant aortic valvular stenosis. Doppler and Color Flow revealed no significant aortic regurgitation. Doppler and Color-flow revealed mild to moderate mitral regurgitation. Doppler and Color Flow revealed mild tricuspid regurgitation. Signed by : Jose Issa MD Patient was also seen by pulmonary and empiric antibiotics were started and prednisone as well. Patient improved with medical management at some point patient was started on milrinone an effort to optimize her that she had a reaction to the medication was discontinued by our process improvement consultant. She usually follows at [facility] for her care and during her hospital stay given the decline of her underlying disease a palliative care consult was requested but patient is not interested at the at the present time to enroll in hospice. Assurance was provided patient's medications were reconciled Plavix was added to her regimen. Signs and symptoms of alarm and decompensation were spent to the patient detail prior to dismissal. She will transition home with home health. Greater than 35 minutes were spent the discharge process the patient counseling crenation of care and arrangements for safe discharge` Discharge Information Condition at Discharge: Improved Follow Up: Weeks Disposition/Orders: D/C to Home Scheduled Alprazolam (Alprazolam) 0.25 Mg Tablet, 1 TAB PO TID for anxiety, #90 (Reported) Entered as Reported by: MELODY LAU on 11/25/18 1032 Last Action: Continued on 11/25/18 1053 by MELODY LAU Aspirin (Aspirin Ec) 325 Mg Tablet.dr, 325 MG PO DAILY, (Reported) Entered as Reported by: Hanane Benton on 01/07/152130 Last Action: Continued on 11/25/18 1010 by MELODY LAU Atorvastatin Calcium (Atorvastatin Calcium) 40 Mg Tablet, 40 MG PO HS for FOR CHOLESTEROL, #30 Ref 0 (Reported) Entered as Reported by: ALPHONSE GUTIERREZ RP on 09/24/151647 Last Action: Continued on 11/25/18 1010 by MELODY LAU Carvedilol (Carvedilol ) 6.25 Mg Tablet, 6.25 MG PO BIDWMEALS, (Reported) Entered as Reported by: ALPHONSE GUTIERREZ RPH on 09/24/151647 Last Action: Continued on 11/25/18 1010 by MELODY LAU Cholecalciferol (Vitamin D3) (Vitamin D) 2,000 Unit Capsule, 2,000 UNIT PO BIDAFTMEAL, (Reported) Entered as Reported by: Hanane Benton on 01/07/152130 Last Action: Converted on 11/25/18 1010 by MELODY LAU Clopidogrel Bisulfate (Clopidogrel) 75 Mg Tablet, 75 MG PO DAILYWBKFT for antiplatelet for 30 Days, #30 Ref 3 Prescribed by: TERRY SCHERER MD on 12/01/18 1156 Fluticasone Propionate (Flovent 110MCG Hfa) 12 Gm Aer.w.adap, 2 PUFF IH BID for eospiophilic esophagitis, #1 Ref 2 (Reported) Entered as Reported by: MELODY LAU on 11/25/18 1005 Last Action: Converted on 11/25/18 1010 by MELODY LAU Furosemide (Lasix) 20 Mg Tablet, 1 TAB PO DAILY for chf, #30 Ref 1 Prescribed by: MIRANDA MORENO on 10/04/18 1003 Last Action: Continued on 11/25/18 1010 by MELODY LAU Guaifenesin (Guaifenesin) 600 Mg Tablet.er, 600 MG PO BID for cough, (Reported) Entered as Reported by: MELODY LAU on 11/25/18956 Last Action: Continued on 11/25/181009 by MELODY LAU Ipratropium/Albuterol Sulfate (Duoneb 0.5-3(2.5) Mg/3 Ml) 3 Ml Ampul.neb, 3 ML NEB QID, (Reported) Entered as Reported by: RENE JUAN on 04/17/18 0950 Last Action: Continued on 11/25/181009 by MELODY LAU Lisinopril (Lisinopril) 2.5 Mg Tablet, 2.5 MG PO DAILY for blood pressure, ( Reported) Entered as Reported by: MELODY LAU on 11/25/18956 Last Action: Converted on 11/25/181009 by MELODY LAU Pantoprazole Sodium (Protonix) 20 Mg Tablet.dr, 40 MG PO DAILY for acid reflux, (Reported) Entered as Reported by: MELODY LAU on 11/25/18956 Last Action: Converted on 11/25/181009 by MELODY LAU Sertraline Hcl (Sertraline Hcl) 50 Mg Tablet, 50 MG PO DAILY for depression, ( Reported) Entered as Reported by: MELODY LAU on 11/25/18 0802 Last Action: Continued on 11/25/181009 by MELODY LAU Spironolactone (Spironolactone) 25 Mg Tablet, 1 TAB PO DAILY for diuretic , #90 Ref 1 (Reported) Entered as Reported by: MELODY LAU on 11/25/18956 Last Action: Converted on 11/25/181009 by MELODY LAU Scheduled PRN Albuterol Sulfate (Proair Hfa Inhaler) 8.5 Gm Hfa.aer.ad, 1 PUFF INH PRN Q6HRS PRN for SHORTNESS OF BREATH for 14 Days, Ref 0 Prescribed by: MIRANDA MORENO on 10/04/18 1003 Last Action: Continued on 11/25/181009 by MELODY LAU Ondansetron Hcl (Zofran) 4 Mg Tablet, 1 TAB PO Q8HRS PRN for NAUSEA, #20 Prescribed by: KATIANA QUIROS D.O. on 05/19/16 1333 Last Action: Converted on 11/25/18 1010 by MELODY LAU Oxycodone Hcl (Oxycodone Hcl) 5 Mg/5 Ml Solution, 5 MG PO PRN Q4HRS PRN for PAIN , (Reported) Entered as Reported by: MELODY LAU on 11/25/18 0957 Last Action: Converted on 11/25/18 1010 by MELODY LAU Tramadol Hcl (Tramadol Hcl) 50 Mg Tablet, 1 TAB PO PRN Q6HRS PRN for PAIN, ( Reported) Entered as Reported by: GABE LINARES RN on 08/13/18 195 Last Action: Continued on 11/25/18 1010 by MELODY LAU Discontinued Medications Levofloxacin (Levaquin) 500 Mg Tablet, 1 TAB PO DAILY for briocnhitis, #7 Discontinued Reason: doesnt doug Prescribed by: MIRANDA MORENO on 10/04/18 1004 Last Action: Discontinued on 11/25/18 0303 by Kait Nj Lisinopril (Lisinopril) 20 Mg Tablet, 20 MG PO DAILY for FOR HYPERTENSION, #30 Ref 0 (Reported) Entered as Reported by: ALPHONSE GUTIERREZ RPH on 09/24/15 1648 Last Action: Discontinued on 11/25/18956 by TERRY HORTA MD Dec 01, 2018 12:07
[2018-12-01] MEDS: oxyCODONE IR 5 MG TABLET PO PRN (12:49)
[2018-12-02] MEDS ORDERED: predniSONE 10 MG TABLET PO SCH (09:00)
[2019-03-28] MEDS ORDERED: PRED20TA PO (10:54)
[2019-03-28] MEDS ORDERED: guaiFENesin/CODEINE 100mg/10mg PO (10:54)
[2019-03-28] MEDS ORDERED: BUDE0.5A NEB (10:54)
[2019-03-28] MEDS ORDERED: TRAM50TA PO (10:54)
== END 2018-12-01 13:40 | disposition home health service (06) | DRG 871 ==
LOC: ER 22:27 → 2 SOUTH 23:47
PROVIDERS: ADMIT Internal Medicine; ATTEND Internal Medicine
PROC: 5A09357 Assistance with Respiratory Ventilation, Less than 24 Consecutive Hours, Continuous Positive Airway Pressure (ICD-10-PCS; principal; 2018-11-24)
PROC: 5A09357 Assistance with Respiratory Ventilation, Less than 24 Consecutive Hours, Continuous Positive Airway Pressure (ICD-10-PCS; 2018-11-25)
PROC: 4B02XSZ Measurement of Cardiac Pacemaker, External Approach (ICD-10-PCS; 2018-11-25)
DX: A41.9 Sepsis, unspecified organism (principal); J69.0 Pneumonitis due to inhalation of food and vomit; I21.4 Non-ST elevation (NSTEMI) myocardial infarction; I50.23 Acute on chronic systolic (congestive) heart failure; J96.20 Acute and chronic respiratory failure, unspecified whether with hypoxia or hypercapnia; F50.2 Bulimia nervosa; J44.1 Chronic obstructive pulmonary disease with (acute) exacerbation; N39.0 Urinary tract infection, site not specified; E78.5 Hyperlipidemia, unspecified; I11.0 Hypertensive heart disease with heart failure; I25.10 Atherosclerotic heart disease of native coronary artery without angina pectoris; I25.2 Old myocardial infarction; I25.5 Ischemic cardiomyopathy; I34.0 Nonrheumatic mitral (valve) insufficiency; K21.9 Gastro-esophageal reflux disease without esophagitis; R13.10 Dysphagia, unspecified; R62.7 Adult failure to thrive; Z79.01 Long term (current) use of anticoagulants; Z82.49 Family history of ischemic heart disease and other diseases of the circulatory system; Z86.59 Personal history of other mental and behavioral disorders; Z90.49 Acquired absence of other specified parts of digestive tract; Z90.710 Acquired absence of both cervix and uterus; Z93.1 Gastrostomy status; Z95.5 Presence of coronary angioplasty implant and graft; Z95.810 Presence of automatic (implantable) cardiac defibrillator; Z88.0 Allergy status to penicillin; Z88.2 Allergy status to sulfonamides; Z88.8 Allergy status to other drugs, medicaments and biological substances
CPT/HCPCS: 36415; 71045; 80048; 80053; 81001; 82550; 83605; 83735; 83880; 84484; 85007; 85025; 85520; 87040; 87086; 93005; 93306; 94640; 94760; 96374; J1644; J1940; J2260; J2405; J2920; J3490; J7512; J7613; J7620; J7626; J7644; 97116; 97530; 99285-25; G0378

== ENCOUNTER 2019-01-04 11:34 | Inpatient (IN) | payer OTHER ==
[~2019-01-04] VITALS: Ht 165.1 cm; Wt 51.8 kg
[2019-01-04] VITALS (8 sets, daily range): BP systolic 110–146; BP diastolic 65–85
[~2019-01-04 11:34] MED LIST changes: +ALPR0.254 PO; +FLUT12AE IH; +GUAI600T79 PO; +LISI2.5T PO; +OXYC5SOL PO; +SERT50TA8 PO; +SPIR25TA5 PO
[2019-01-04] MEDS ORDERED: ETOMIDATE 20 MG/10 ML VIAL. IV ONE (12:00)
[2019-01-04] MEDS ORDERED: SUCCINYLCHOLINE 200 MG/10 ML VIAL. IV ONE (12:00)
[2019-01-04 12:05] LABS: BASO # 0.1 x10^3/uL (0.0-0.2); BASO % 1 % (0-3); EOS # 4.5 x10^3/uL (0.0-0.7); EOS % 26 % (0-3); HEMATOCRIT 41.5 % (36.0-47.0); HEMOGLOBIN 12.9 g/dL (12.0-15.5); LYMPH # 5.8 x10^3/uL (1.0-4.8); LYMPH % 33 % (24-48); MEAN CORPUSCULAR HEMOGLOBIN 29 pg (25-35); MEAN CORPUSCULAR HGB CONC 31 g/dL (31-37); MEAN CORPUSCULAR VOLUME 94 fL (79-100); MONO # 0.9 x10^3/uL (0.0-1.1); MONO % 5 % (0-9); NEUT # 6.1 x10^3uL (1.8-7.7); NEUT % 35 % (31-73); PLATELET COUNT 246 x10^3/uL (140-400); RED BLOOD COUNT 4.43 x10^6/uL (3.50-5.40); RED CELL DISTRIBUTION WIDTH 15.4 % (11.5-14.5); WHITE BLOOD COUNT 17.3 x10^3/uL (4.0-11.0)
[2019-01-04 12:09] LABS: BILIRUBIN,URINE NEGATIVE (NEG); CLARITY,URINE CLEAR; COLOR,URINE YELLOW; NITRITE,URINE NEGATIVE (NEG); PROTEIN,URINE NEGATIVE (NEG-TRACE); UROBILINOGEN,URINE 0.2 mg/dL (0.2 mg/dL)
[2019-01-04] MEDS ORDERED: MIDAZOLAM HCL/PF 5 MG/5 ML VIAL. ONE ×2 (12:10→12:40)
[2019-01-04 12:16] LABS: CALCIUM 9.7 mg/dL (8.5-10.1); GFR 65.6
[2019-01-04 12:17] LABS: BARBITURATES NEG (NEG); BENZODIAZEPINES NEG (NEG); CANNABINOIDS NEG (NEG); COCAINE NEG (NEG); METHADONE NEG (NEG); OPIATES POS (NEG); PHENCYCLIDINE NEG (NEG)
[2019-01-04 12:19] LABS: AMPHETAMINE/METHAMPHETAMINE NEG (NEG)
--- NOTE | 2019-01-04 12:19 | RAD ---
CHEST AP ONLY History: INTUBATION. Comparison with November 24, 2018. Endotracheal tube is in place, with tip 5 cm above the kriss. Endogastric tube tip overlies the gastric bubble in the left upper quadrant but its proximal side port overlies the expected region of the distal esophagus, and could be advanced. Pacemaker defibrillator device is again seen. Interstitial markings are again identified in both lungs. No evidence of consolidating infiltrate. No pleural effusion or pneumothorax. Some widening of the superior mediastinum is again seen, likely vascular. IMPRESSION: 1. Endotracheal tube in place, tip about 5 cm above the kriss. 2. Endogastric tube distal tip appears to just overlie the stomach, could be advanced. 3. Interstitial markings are stable, no new consolidating infiltrate. Electronically signed by: Doug Marmolejo MD (01/04/2019 12:16 PM) [id number]
[2019-01-04] MEDS: MIDAZOLAM 100mg/100ml NS BAG 100 ML IV PRN ×3 (12:22→20:38)
[2019-01-04 12:23] LABS: ALBUMIN 3.3 g/dL (3.4-5.0); ALBUMIN/GLOBULIN RATIO 0.8 (1.0-1.7); TOTAL BILIRUBIN 0.3 mg/dL (0.2-1.0); TOTAL PROTEIN 7.6 g/dL (6.4-8.2)
[2019-01-04 12:27] LABS: AMORPHOUS SEDIMENT,UR PRESENT /HPF; BACTERIA,URINE 0 /HPF (0-FEW); HYALINE CASTS, URINE FEW /HPF; RBC,URINE 0 /HPF (0-2); SQUAMOUS EPITHELIAL CELL,UR FEW /LPF; WBC,URINE 0 /HPF (0-4)
[2019-01-04] MEDS ORDERED: methylPREDNISolone SOD SUCC PF 125 MG/2 ML VIAL. IV ONE (12:30)
[2019-01-04] MEDS ORDERED: IPRATRPIUM/ALBUTEROL 0.5/2.5MG 3 ML NEBU. NEB ONE (12:30)
[2019-01-04] MEDS: fentaNYL PF VIAL 100 MCG/2 ML VIAL IV PRN ×2 (12:35→21:15)
--- NOTE | 2019-01-04 12:41 | EKG ---
[facility] [address] [place] [address] Test Date: 2019-01-04 Test Time: 11:45:53 Pat Name: JUAN LUIS REED Department: Room: Gender: F Safety Inspector: : 1945 Requested By: KATIANA QUIROS Order Number: [id number] Reading MD: Rajeev Melissa MD Measurements Intervals [place] Rate: 114 P: 73 MN: 108 QRS: -161 QRSD: 166 T: -54 QT: 356 QTc: 494 Interpretive Statements SINUS TACHYCARDIA V-PACED Electronically Signed On 01-05-2019 10:48:14 CDT by Rajeev Melissa MD
[2019-01-04] MEDS: IV NORMAL SALINE 1000ML BAG 1,000 ML IV SCH ×4 (13:15→21:37)
--- NOTE | 2019-01-04 13:28 | PHYS DOC ---
Past Medical History Past Medical History: CAD, CHF, COPD, Hypertension, SC Additional Past Medical Histor: patient is a pacemaker she is on Coumadin Past Surgical History: Appendectomy, Hysterectomy, Pacemaker, Other Additional Past Surgical Histo: cardiac stents; defibrilator, PEG TUBE FOR CHRONIC VOMITING Alcohol Use: None Drug Use: None Adult General Chief Complaint Chief Complaint: RESP ARREST HPI HPI 73-year-old female with multiple medical problems presents via EMS in severe respiratory distress. According to the family, she started becoming more short of breath yesterday and throughout the day today became much worse. Coupled with her shortness of breath she is taking OxyContin for her chronic pain. EMS states they found an empty bottle of pills near where she was on their arrival. They tried Narcan en route but this did not help her respiratory status. EMS began bagging the patient with BVM. Patient is unable to provide any history secondary to the critical nature of her illness[] Review of Systems Review of Systems Review of systems is unobtainable secondary to the critical nature of the patient's illness and her altered mental status also, patient is intubated Current Medications Current Medications Current Medications Medications (Trade) Dose Ordered Sig/Lisandra Start Time Stop Time Status Last Admin Dose Admin Albuterol/ Ipratropium (Duoneb) 3 ml RTQID 01/04/19 16:00 01/05/19 15:59 Chlorhexidine Gluconate (Peridex) 15 ml BID 01/04/19 21:00 Etomidate (Amidate) 10 mg 1X ONCE 01/04/19 12:00 01/04/19 12:01 DC 01/04/19 11:39 10 MG Famotidine (Pepcid Vial) 20 mg BID 01/04/19 21:00 Fentanyl Citrate (Fentanyl 2ml Vial) 50 mcg PRN Q1HR PRN 01/04/19 11:45 01/04/19 12:35 50 MCG Methylprednisolone Sodium Succinate (SOLU-Medrol 125MG VIAL) 125 mg 1X ONCE 01/04/19 12:30 01/04/19 12:31 DC 01/04/19 12:44 125 MG Midazolam HCl (Versed) 5 mg 1X ONCE 01/04/19 13:30 01/04/19 13:31 Morphine Sulfate (Morphine Sulfate) 2 mg PRN Q1HR PRN 01/04/19 11:45 Sodium Chloride 1,000 ml @ 125 mls/hr Q8H 01/04/19 14:00 01/05/19 13:59 01/04/19 13:15 125 MLS/HR Succinylcholine Chloride (Anectine) 50 mg 1X ONCE 01/04/19 12:00 01/04/19 12:01 DC 01/04/19 11:39 50 MG Allergies Allergies Allergies Coded Allergies Type Severity Reaction Last Updated Verified Penicillins Allergy Intermediate hives 08/16/18 Yes Sulfa (Sulfonamide Antibiotics) Allergy Intermediate hives 08/16/18 Yes morphine Allergy Mild Hives 11/25/18 Yes Physical Exam Physical Exam Constitutional: Frail, elderly appears critically ill[] HENT: Dentures in place. [] Eyes: PERRLA, EOMI, conjunctiva normal, no discharge. [] Neck: Normal range of motion, no tenderness, supple, no stridor. [] Cardiovascular: Tachycardic no murmur[] Lungs & Thorax: Poor breath sounds bilaterally there is a AICD device and left upper chest[] Abdomen: Bowel sounds normal, soft, no tenderness, no masses, no pulsatile masses. Feeding tube in place [] Skin: Warm, dry, no erythema, no rash. [] Back: No tenderness, no CVA tenderness. [] Extremities: No tenderness, no cyanosis, no clubbing, ROM intact, no edema. [] Neurologic: Obtunded. [] Psychologic: Unable to assess. [] Current Patient Data Vital Signs Vital Signs Date Time Temp Pulse Resp B/P (MAP) Pulse Ox O2 Delivery O2 Flow Rate FiO2 01/04/19 12:35 16 95 Ventilator 01/04/19 11:34 97.4 113 176/107 (130) 15.0 97.4 Lab Values Laboratory Tests Test 01/04/19 11:45 01/04/19 12:00 White Blood Count 17.3 x10^3/uL (4.0-11.0) H Red Blood Count 4.43 x10^6/uL (3.50-5.40) Hemoglobin 12.9 g/dL (12.0-15.5) Hematocrit 41.5 % (36.0-47.0) Mean Corpuscular Volume 94 fL (79-100) Mean Corpuscular Hemoglobin 29 pg (25-35) Mean Corpuscular Hemoglobin Concent 31 g/dL (31-37) Red Cell Distribution Width 15.4 % (11.5-14.5) H Platelet Count 246 x10^3/uL (140-400) Neutrophils (%) (Auto) 35 % (31-73) Lymphocytes (%) (Auto) 33 % (24-48) Monocytes (%) (Auto) 5 % (0-9) Eosinophils (%) (Auto) 26 % (0-3) H Basophils (%) (Auto) 1 % (0-3) Neutrophils # (Auto) 6.1 x10^3uL (1.8-7.7) Lymphocytes # (Auto) 5.8 x10^3/uL (1.0-4.8) H Monocytes # (Auto) 0.9 x10^3/uL (0.0-1.1) Eosinophils # (Auto) 4.5 x10^3/uL (0.0-0.7) H Basophils # (Auto) 0.1 x10^3/uL (0.0-0.2) Platelet Estimate Pending Sodium Level 138 mmol/L (136-145) Potassium Level 5.0 mmol/L (3.5-5.1) Chloride Level 101 mmol/L (98-107) Carbon Dioxide Level 30 mmol/L (21-32) Anion Gap 7 (6-14) Blood Urea Nitrogen 10 mg/dL (7-20) Creatinine 1.0 mg/dL (0.6-1.0) Estimated GFR (Cockcroft-Gault) 65.6 BUN/Creatinine Ratio 10 (6-20) Glucose Level 178 mg/dL (70-99) H Lactic Acid Level 2.8 mmol/L (0.4-2.0) H Calcium Level 9.7 mg/dL (8.5-10.1) Total Bilirubin 0.3 mg/dL (0.2-1.0) Aspartate Amino Transferase (AST) 25 U/L (15-37) Alanine Aminotransferase (ALT) 14 U/L (14-59) Alkaline Phosphatase 148 U/L (46-116) H Creatine Kinase 89 U/L (26-192) Troponin I Quantitative 0.020 ng/mL (0.000-0.055) LM-Zzf-[id number]-Type Natriuretic Peptide 2832 pg/mL (0-124) H Total Protein 7.6 g/dL (6.4-8.2) Albumin 3.3 g/dL (3.4-5.0) L Albumin/Globulin Ratio 0.8 (1.0-1.7) L Ethyl Alcohol Level < 10 mg/dL (0-10) Urine Collection Type U cath Urine Color Yellow Urine Clarity Clear Urine pH 6.0 Urine Specific [place] 1.015 Urine Protein Negative mg/dL (NEG-TRACE) Urine Glucose (UA) Negative mg/dL (NEG) Urine Ketones (Stick) Negative mg/dL (NEG) Urine Blood Negative (NEG) Urine Nitrite Negative (NEG) Urine Bilirubin Negative (NEG) Urine Urobilinogen Dipstick 0.2 mg/dL (0.2 mg/dL) Urine Leukocyte Esterase Negative (NEG) Urine RBC 0 /HPF (0-2) Urine WBC 0 /HPF (0-4) Urine Squamous Epithelial Cells Few /LPF Urine Amorphous Sediment Present /HPF Urine Bacteria 0 /HPF (0-FEW) Urine Hyaline Casts Few /HPF Urine Mucus Slight /LPF Urine Opiates Screen Pos (NEG) Urine Methadone Screen Neg (NEG) Urine Barbiturates Neg (NEG) Urine Phencyclidine Screen Neg (NEG) Urine Amphetamine/Methamphetamine Neg (NEG) Urine Benzodiazepines Screen Neg (NEG) Urine Cocaine Screen Neg (NEG) Urine Cannabinoids Screen Neg (NEG) Urine Ethyl Alcohol Neg (NEG) Laboratory Tests 01/04/19 11:45 Laboratory Tests 01/04/19 11:45 EKG EKG [] Interpretation Time: EKG: Sinus tachycardia nonspecific intraventricular conduction delay rate 1:15 Radiology/Procedures Radiology/Procedures [] Impressions: REASON: intubated PROCEDURE: CHEST AP ONLY CHEST AP ONLY History: INTUBATION. Comparison with November 24, 2018. Endotracheal tube is in place, with tip 5 cm above the kriss. Endogastric tube tip overlies the gastric bubble in the left upper quadrant but its proximal side port overlies the expected region of the distal esophagus, and could be advanced. Pacemaker defibrillator device is again seen. Interstitial markings are again identified in both lungs. No evidence of consolidating infiltrate. No pleural effusion or pneumothorax. Some widening of the superior mediastinum is again seen, likely vascular. IMPRESSION: 1. Endotracheal tube in place, tip about 5 cm above the kriss. 2. Endogastric tube distal tip appears to just overlie the stomach, could be advanced. 3. Interstitial markings are stable, no new consolidating infiltrate. Course & Med Decision Making Course & Med Decision Making Pertinent Labs and Imaging studies reviewed. (See chart for details) [Procedure: Rapid sequence intubation Patient was hyperventilated and oxygenated up to an oxygen saturation of 100% then using 10 mg of etomidate and 50 mg of succinylcholine the patient was prepped and using a 4 Rashel blade the vocal cords were directly visualized and an 80 ET tube was passed to 21 cm at the lip. There was good CO2 color change. CRITICAL CARE: Time spent was 35 minutes. This includes medical management, evaluation, reevaluation, discussion with consultants and family. Critical Care does NOT include time spent on separately billed procedures. ED course: Evaluation reveals a 73-year-old critically ill female. She was in severe respiratory distress and was intubated on arrival to the emergency department. After intubation the patient stabilized her heart rate decreased and her blood pressure was in the 140 systolic range. I spoke with Dr. Ames who agreed to accept the patient for admission to the ICU. The patient does have a elevated white blood cell count and slightly elevated lactic acid however I do not feel the patient is septic at this time. She is afebrile and I feel like most of this is related to her hypoxia from her acute COPD exacerbation and likely sedation secondary to opioid use] Dragon Disclaimer Dragon Disclaimer This electronic medical record was generated, in whole or in part, using a voice recognition dictation system. Departure Departure Impression: Primary Impression: COPD exacerbation Additional Impression: Respiratory failure with hypoxia Disposition: ADMITTED INPATIENT Admitting Physician: Trenton Orellana Condition: CRITICAL Referrals: VAUGHN LOPEZ MD (PCP) Problem Qualifiers Additional Impression: Respiratory failure with hypoxia Chronicity: acute Qualified Codes: J96.01 - Acute respiratory failure with hypoxia KATIANA QUIROS DO Jan 04, 2019 13:28
[2019-01-04] MEDS ORDERED: MIDAZOLAM HCL/PF 5 MG/5 ML VIAL. IV ONE ×2 (13:30→15:15)
--- NOTE | 2019-01-04 13:35 | PDOC1 ---
History and Physical Date of Admission Date of Admission DATE: 01/04/19 TIME: 13:35 Identification/Chief Complaint Chief Complaint presentED via EMS in severe respiratory distress. According to the family, she started becoming more short of breath yesterday and throughout the day today became much worse. Coupled with her shortness of breath she is taking OxyContin for her chronic pain. EMS states they found an empty bottle of pills near where she was on their arrival. They tried Narcan en route but this did not help her respiratory status. INTUBATED IN ER, TROP MILD ELEVATION Past Medical History Past Medical History Past Medical History: CAD, CHF, COPD, Hypertension, ID Additional Past Medical Histor: patient is a pacemaker she is on Coumadin Past Surgical History: Appendectomy, Hysterectomy, Pacemaker, Other Additional Past Surgical Histo: cardiac stents; defibrilator, PEG TUBE FOR CHRONIC VOMITING Alcohol Use: None Drug Use: None FAMILY HX HTN Cardiovascular: AFIB, CAD, CHF, HTN, Syncope, Hyperlipidemia Pulmonary: COPD CENTRAL NERVOUS SYSTEM: Other GI: No pertinent hx, Other Heme/Onc: No pertinent hx Hepatobiliary: No pertinent hx Psych: No pertinent hx Musculoskeletal: Other Rheumatologic: No pertinent hx Infectious disease: No pertinent hx Renal/: UTI Endocrine: No pertinent hx Past Surgical History Past Surgical History: Pacemaker, Appendectomy, Hysterectomy, Other Family History Family History: Coronary Artery Disease, Hypertension Social History Smoke: <1 pack per day ALCOHOL: none Drugs: None Current Problem List Problem List Problems Medical Problems: (1) COPD exacerbation Status: Acute (2) Respiratory failure with hypoxia Status: Acute Current Medications Current Medications Current Medications Etomidate (Amidate) 10 mg 1X ONCE IV Last administered on 01/04/19at 11:39; Start 01/04/19 at 12:00; Stop 01/04/19 at 12:01; Status DC Succinylcholine Chloride (Anectine) 50 mg 1X ONCE IV Last administered on 01/04at 11:39; Start 01/04/19 at 12:00; Stop 01/04/19 at 12:01; Status DC Fentanyl Citrate (Fentanyl 2ml Vial) 25 mcg PRN Q1HR PRN IV SEE COMMENTS; Start 01/04/19 at 11:45 Fentanyl Citrate (Fentanyl 2ml Vial) 50 mcg PRN Q1HR PRN IV SEE COMMENTS Last administered on 01/04/19at 12:35; Start 01/04/19 at 11:45 Chlorhexidine Gluconate (Peridex) 15 ml BID MM ; Start 01/04/19 at 21:00 Famotidine (Pepcid Vial) 20 mg BID IVP ; Start 01/04/19 at 21:00 Morphine Sulfate (Morphine Sulfate) 2 mg PRN Q1HR PRN IV SEE COMMENTS.; Start 01/04/19 at 11:45 Midazolam HCl 100 ml @ 0 mls/hr CONT PRN IV SEE PROTOCOL Last administered on at 12:22; Start 01/04/19 at 12:00 Midazolam HCl (Versed) 5 mg STK-MED ONCE .ROUTE ; Start 01/04/19 at 12:10; Stop 01/04/19 at 12:11; Status DC Albuterol/ Ipratropium (Duoneb) 6 ml 1X ONCE NEB Last administered on at 13:12; Start 01/04/19 at 12:30; Stop 01/04/19 at 12:31; Status DC Methylprednisolone Sodium Succinate (SOLU-Medrol 125MG VIAL) 125 mg 1X ONCE IV Last administered on 01/04/19at 12:44; Start 01/04/19 at 12:30; Stop 01/04/19 at 12:31; Status DC Midazolam HCl (Versed) 5 mg STK-MED ONCE .ROUTE ; Start 01/04/19 at 12:40; Stop 01/04/19 at 12:41; Status DC Sodium Chloride 1,000 ml @ 125 mls/hr Q8H IV Last administered on 01/04/19at 13 :15; Start 01/04/19 at 14:00; Stop 01/05/19 at 13:59 Albuterol/ Ipratropium (Duoneb) 3 ml RTQID NEB ; Start 01/04/19 at 16:00; Stop 01/05/19 at 15:59 Midazolam HCl (Versed) 5 mg 1X ONCE IV ; Start 01/04/19 at 13:30; Stop at 13:31; Status DC Active Scripts Active Clopidogrel (Clopidogrel Bisulfate) 75 Mg Tablet 75 Mg PO DAILYWBKFT 30 Days Lasix (Furosemide) 20 Mg Tablet 1 Tab PO DAILY Proair Hfa Inhaler (Albuterol Sulfate) 8.5 Gm Hfa.aer.ad 1 Puff INH PRN Q6HRS PRN 14 Days Zofran (Ondansetron Hcl) 4 Mg Tablet 1 Tab PO Q8HRS PRN Reported Alprazolam 0.25 Mg Tablet 1 Tab PO TID Flovent 110MCG Hfa (Fluticasone Propionate) 12 Gm Aer.w.adap 2 Puff IH BID Spironolactone 25 Mg Tablet 1 Tab PO DAILY Protonix (Pantoprazole Sodium) 20 Mg Tablet.dr 40 Mg PO DAILY Oxycodone Hcl 5 Mg/5 Ml Solution 5 Mg PO PRN Q4HRS PRN Lisinopril 2.5 Mg Tablet 2.5 Mg PO DAILY Guaifenesin 600 Mg Tablet.er 600 Mg PO BID Sertraline Hcl 50 Mg Tablet 50 Mg PO DAILY Tramadol Hcl 50 Mg Tablet 1 Tab PO PRN Q6HRS PRN Duoneb 0.5-3(2.5) Mg/3 Ml (Albuterol/Ipratropium) 3 Ml Ampul.neb 3 Ml NEB QID Atorvastatin Calcium 40 Mg Tablet 40 Mg PO HS Carvedilol (Carvedilol) 6.25 Mg Tablet 6.25 Mg PO BIDWMEALS Vitamin D (Cholecalciferol (Vitamin D3)) 2,000 Unit Capsule 2,000 Unit PO BIDAFTMEAL Aspirin Ec (Aspirin) 325 Mg Tablet.dr 325 Mg PO DAILY Allergies Allergies: Coded Allergies: Penicillins (Verified Allergy, Intermediate, hives, 08/16/18) Sulfa (Sulfonamide Antibiotics) (Verified Allergy, Intermediate, hives, ) morphine (Verified Allergy, Mild, Hives, 11/25/18) ROS Review of System Review of Systems Review of Systems Review of systems is unobtainable secondary to the critical nature of the patient's illness and her altered mental status also, patient is intubated Physical Exam Physical Exam Physical Exam Physical Exam Constitutional: Frail, elderly appears critically ill[] HENT: Dentures in place. [] Eyes: PERRLA, EOMI, conjunctiva normal, no discharge. [] Neck: Normal range of motion, no tenderness, supple, no stridor. [] Cardiovascular: Tachycardic no murmur[] Lungs & Thorax: Poor breath sounds bilaterally there is a AICD device and left upper chest[] Abdomen: Bowel sounds normal, soft, no tenderness, no masses, no pulsatile masses. Feeding tube in place [] Skin: Warm, dry, no erythema, no rash. [] Back: No tenderness, no CVA tenderness. [] Extremities: No tenderness, no cyanosis, no clubbing, ROM intact, no edema. [] Neurologic: Obtunded. [] Psychologic: Unable to assess. [] General: Cooperative, moderate distress HEENT: PERRLA, EOMI Breasts: Not examined Abdomen: Soft Rectal Exam: not examined PELVIC: Examination not indicated Extremities: No cyanosis, No edema Vitals Vitals Vital Signs Date Time Temp Pulse Resp B/P (MAP) Pulse Ox O2 Delivery O2 Flow Rate FiO2 01/04/19 12:35 16 95 Ventilator 01/04/19 11:34 97.4 113 176/107 (130) 15.0 97.4 Labs Labs Laboratory Tests Test 01/04/19 11:45 01/04/19 12:00 White Blood Count 17.3 x10^3/uL (4.0-11.0) Red Blood Count 4.43 x10^6/uL (3.50-5.40) Hemoglobin 12.9 g/dL (12.0-15.5) Hematocrit 41.5 % (36.0-47.0) Mean Corpuscular Volume 94 fL (79-100) Mean Corpuscular Hemoglobin 29 pg (25-35) Mean Corpuscular Hemoglobin Concent 31 g/dL (31-37) Red Cell Distribution Width 15.4 % (11.5-14.5) Platelet Count 246 x10^3/uL (140-400) Neutrophils (%) (Auto) 35 % (31-73) Lymphocytes (%) (Auto) 33 % (24-48) Monocytes (%) (Auto) 5 % (0-9) Eosinophils (%) (Auto) 26 % (0-3) Basophils (%) (Auto) 1 % (0-3) Neutrophils # (Auto) 6.1 x10^3uL (1.8-7.7) Lymphocytes # (Auto) 5.8 x10^3/uL (1.0-4.8) Monocytes # (Auto) 0.9 x10^3/uL (0.0-1.1) Eosinophils # (Auto) 4.5 x10^3/uL (0.0-0.7) Basophils # (Auto) 0.1 x10^3/uL (0.0-0.2) Sodium Level 138 mmol/L (136-145) Potassium Level 5.0 mmol/L (3.5-5.1) Chloride Level 101 mmol/L (98-107) Carbon Dioxide Level 30 mmol/L (21-32) Anion Gap 7 (6-14) Blood Urea Nitrogen 10 mg/dL (7-20) Creatinine 1.0 mg/dL (0.6-1.0) Estimated GFR (Cockcroft-Gault) 65.6 BUN/Creatinine Ratio 10 (6-20) Glucose Level 178 mg/dL (70-99) Lactic Acid Level 2.8 mmol/L (0.4-2.0) Calcium Level 9.7 mg/dL (8.5-10.1) Total Bilirubin 0.3 mg/dL (0.2-1.0) Aspartate Amino Transf (AST/SGOT) 25 U/L (15-37) Alanine Aminotransferase (ALT/SGPT) 14 U/L (14-59) Alkaline Phosphatase 148 U/L (46-116) Creatine Kinase 89 U/L (26-192) Troponin I Quantitative 0.020 ng/mL (0.000-0.055) CN-Pmx-N-Type Natriuretic Peptide 2832 pg/mL (0-124) Total Protein 7.6 g/dL (6.4-8.2) Albumin 3.3 g/dL (3.4-5.0) Albumin/Globulin Ratio 0.8 (1.0-1.7) Ethyl Alcohol Level < 10 mg/dL (0-10) Urine Collection Type U cath Urine Color Yellow Urine Clarity Clear Urine pH 6.0 Urine Specific [place] 1.015 Urine Protein Negative mg/dL (NEG-TRACE) Urine Glucose (UA) Negative mg/dL (NEG) Urine Ketones (Stick) Negative mg/dL (NEG) Urine Blood Negative (NEG) Urine Nitrite Negative (NEG) Urine Bilirubin Negative (NEG) Urine Urobilinogen Dipstick 0.2 mg/dL (0.2 mg/dL) Urine Leukocyte Esterase Negative (NEG) Urine RBC 0 /HPF (0-2) Urine WBC 0 /HPF (0-4) Urine Squamous Epithelial Cells Few /LPF Urine Amorphous Sediment Present /HPF Urine Bacteria 0 /HPF (0-FEW) Urine Hyaline Casts Few /HPF Urine Mucus Slight /LPF Urine Opiates Screen Pos (NEG) Urine Methadone Screen Neg (NEG) Urine Barbiturates Neg (NEG) Urine Phencyclidine Screen Neg (NEG) Urine Amphetamine/Methamphetamine Neg (NEG) Urine Benzodiazepines Screen Neg (NEG) Urine Cocaine Screen Neg (NEG) Urine Cannabinoids Screen Neg (NEG) Urine Ethyl Alcohol Neg (NEG) Laboratory Tests Test 01/04/19 11:45 01/04/19 12:00 White Blood Count 17.3 x10^3/uL (4.0-11.0) Red Blood Count 4.43 x10^6/uL (3.50-5.40) Hemoglobin 12.9 g/dL (12.0-15.5) Hematocrit 41.5 % (36.0-47.0) Mean Corpuscular Volume 94 fL (79-100) Mean Corpuscular Hemoglobin 29 pg (25-35) Mean Corpuscular Hemoglobin Concent 31 g/dL (31-37) Red Cell Distribution Width 15.4 % (11.5-14.5) Platelet Count 246 x10^3/uL (140-400) Neutrophils (%) (Auto) 35 % (31-73) Lymphocytes (%) (Auto) 33 % (24-48) Monocytes (%) (Auto) 5 % (0-9) Eosinophils (%) (Auto) 26 % (0-3) Basophils (%) (Auto) 1 % (0-3) Neutrophils # (Auto) 6.1 x10^3uL (1.8-7.7) Lymphocytes # (Auto) 5.8 x10^3/uL (1.0-4.8) Monocytes # (Auto) 0.9 x10^3/uL (0.0-1.1) Eosinophils # (Auto) 4.5 x10^3/uL (0.0-0.7) Basophils # (Auto) 0.1 x10^3/uL (0.0-0.2) Sodium Level 138 mmol/L (136-145) Potassium Level 5.0 mmol/L (3.5-5.1) Chloride Level 101 mmol/L (98-107) Carbon Dioxide Level 30 mmol/L (21-32) Anion Gap 7 (6-14) Blood Urea Nitrogen 10 mg/dL (7-20) Creatinine 1.0 mg/dL (0.6-1.0) Estimated GFR (Cockcroft-Gault) 65.6 BUN/Creatinine Ratio 10 (6-20) Glucose Level 178 mg/dL (70-99) Lactic Acid Level 2.8 mmol/L (0.4-2.0) Calcium Level 9.7 mg/dL (8.5-10.1) Total Bilirubin 0.3 mg/dL (0.2-1.0) Aspartate Amino Transf (AST/SGOT) 25 U/L (15-37) Alanine Aminotransferase (ALT/SGPT) 14 U/L (14-59) Alkaline Phosphatase 148 U/L (46-116) Creatine Kinase 89 U/L (26-192) Troponin I Quantitative 0.020 ng/mL (0.000-0.055) OE-Ghs-V-Type Natriuretic Peptide 2832 pg/mL (0-124) Total Protein 7.6 g/dL (6.4-8.2) Albumin 3.3 g/dL (3.4-5.0) Albumin/Globulin Ratio 0.8 (1.0-1.7) Ethyl Alcohol Level < 10 mg/dL (0-10) Urine Collection Type U cath Urine Color Yellow Urine Clarity Clear Urine pH 6.0 Urine Specific [place] 1.015 Urine Protein Negative mg/dL (NEG-TRACE) Urine Glucose (UA) Negative mg/dL (NEG) Urine Ketones (Stick) Negative mg/dL (NEG) Urine Blood Negative (NEG) Urine Nitrite Negative (NEG) Urine Bilirubin Negative (NEG) Urine Urobilinogen Dipstick 0.2 mg/dL (0.2 mg/dL) Urine Leukocyte Esterase Negative (NEG) Urine RBC 0 /HPF (0-2) Urine WBC 0 /HPF (0-4) Urine Squamous Epithelial Cells Few /LPF Urine Amorphous Sediment Present /HPF Urine Bacteria 0 /HPF (0-FEW) Urine Hyaline Casts Few /HPF Urine Mucus Slight /LPF Urine Opiates Screen Pos (NEG) Urine Methadone Screen Neg (NEG) Urine Barbiturates Neg (NEG) Urine Phencyclidine Screen Neg (NEG) Urine Amphetamine/Methamphetamine Neg (NEG) Urine Benzodiazepines Screen Neg (NEG) Urine Cocaine Screen Neg (NEG) Urine Cannabinoids Screen Neg (NEG) Urine Ethyl Alcohol Neg (NEG) Images Images CHEST AP ONLY History: INTUBATION. Comparison with November 24, 2018. Endotracheal tube is in place, with tip 5 cm above the kriss. Endogastric tube tip overlies the gastric bubble in the left upper quadrant but its proximal side port overlies the expected region of the distal esophagus, and could be advanced. Pacemaker defibrillator device is again seen. Interstitial markings are again identified in both lungs. No evidence of consolidating infiltrate. No pleural effusion or pneumothorax. Some widening of the superior mediastinum is again seen, likely vascular. IMPRESSION: 1. Endotracheal tube in place, tip about 5 cm above the kriss. 2. Endogastric tube distal tip appears to just overlie the stomach, could be advanced. 3. Interstitial markings are stable, no new consolidating infiltrate. Electronically signed by: Dogu Marmolejo MD (01/04/2019 12:16 PM) [facility] DICTATED and SIGNED BY: DOUG MARMOLEJO MD DATE: 01/04/19 1216 CHEST AP ONLY History: INTUBATION. Comparison with November 24, 2018. Endotracheal tube is in place, with tip 5 cm above the kriss. Endogastric tube tip overlies the gastric bubble in the left upper quadrant but its proximal side port overlies the expected region of the distal esophagus, and could be advanced. Pacemaker defibrillator device is again seen. Interstitial markings are again identified in both lungs. No evidence of consolidating infiltrate. No pleural effusion or pneumothorax. Some widening of the superior mediastinum is again seen, likely vascular. IMPRESSION: 1. Endotracheal tube in place, tip about 5 cm above the kriss. 2. Endogastric tube distal tip appears to just overlie the stomach, could be advanced. 3. Interstitial markings are stable, no new consolidating infiltrate. Electronically signed by: Doug Marmolejo MD (01/04/2019 12:16 PM) [facility] The Left Ventricle is mildly dilated. The systolic function is severly impaired. The Ejection Fraction is 20-25%. There is global hypokinesis of the left ventricle. There is mild to moderate concentric left ventricular hypertrophy. There is no significant aortic valvular stenosis. Doppler and Color Flow revealed no significant aortic regurgitation. Doppler and Color-flow revealed mild to moderate mitral regurgitation. Doppler and Color Flow revealed mild tricuspid regurgitation. Signed by : Jose Issa MD VTE Prophylaxis Ordered VTE Prophylaxis Devices: Yes VTE Pharmacological Prophylaxi: Yes Assessment/Plan Assessment/Plan IMPRESSION ACUTE RESP FAILURE CAD: s/p PCI/stent to RCA in 2014. 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 No intervention performed. Acute on chronic systolic heart failure. Ejection fraction of 10-15%. . Followed by the heart failure clinic. AE COPD and possible PNA. CONSULT pulmonary. Severe cardiomyopathy: LVEF at 10-15% AICD in situ; HTN: Severe MR: not a surgical candidate Chronic dysphagia; s/p PEG tube for chronic vomiting AICD. Upgraded // at with epicardial lead placement by surgery. MILD ELEVATION OF TROPONIN I plan admit icu vent support cardiology consult frequent labs dvt prophylaxis ID CONSULT PULM CONSULT INR NOW SEPSIS PROTOCOL 44 min cc time BAYLEE SIMS MD Jan 04, 2019 13:35
[2019-01-04 13:48] LABS: BASE EXCESS COOX 2 mmol/L (-3-3); HCO3 COOX 28 mmol/L (21-28); METHEMOGLOBIN 0.4 % (0.0-1.9); OXYHEMOGLOBIN 89.6 %; PCO2 COOX 51 mmHg (35-46); PO2 COOX 61 mmHg (65-108); SAT O2 COOX 90 % (92-99)
[2019-01-04 13:51] LABS: % EOS 25 % (0-5); % LYMPHS 39 % (24-48); % MONOS 2 % (0-10); % SEGS 34 % (35-66); PLT ESTIMATE ADEQUATE (ADEQUATE)
[2019-01-04 13:52] LABS: ANISOCYTOSIS SLIGHT; BURR CELLS FEW; POIKILOCYTOSIS SLIGHT; SCHISTOCYTES OCC
[2019-01-04 13:53] LABS: ACANTHOCYTES OCC
[2019-01-04 14:14] LABS: INFLUENZA A PATIENT NEGATIVE (NEGATIVE); INFLUENZA B PATIENT NEGATIVE (NEGATIVE)
[2019-01-04] MEDS: IPRATRPIUM/ALBUTEROL 0.5/2.5MG 3 ML NEBU. NEB SCH ×2 (15:55→19:33)
[2019-01-04] MEDS ORDERED: IV NORMAL SALINE 500ML BAG 500 ML IV PRN (18:00)
[2019-01-04] MEDS ORDERED: VANCOMYCIN PER PHARMACY MC PRN (18:00)
--- NOTE | 2019-01-04 18:11 | PDOC ---
PULMONARY PROGRESS NOTES Vitals Vital Signs Date Time Temp Pulse Resp B/P (MAP) Pulse Ox O2 Delivery O2 Flow Rate FiO2 01/04/19 17:00 104 18 119/70 (86) 100 Ventilator 01/04/19 16:00 98.3 98.3 01/04/19 11:48 15.0 General: Alert, No acute distress Lungs: Clear Cardiovascular: S1, S2 Abdomen: Soft, Non-tender Extremities: No Edema Labs Laboratory Tests Test 01/04/19 11:45 01/04/19 12:00 01/04/19 13:33 01/04/19 13:35 White Blood Count 17.3 x10^3/uL (4.0-11.0) Red Blood Count 4.43 x10^6/uL (3.50-5.40) Hemoglobin 12.9 g/dL (12.0-15.5) Hematocrit 41.5 % (36.0-47.0) Mean Corpuscular Volume 94 fL (79-100) Mean Corpuscular Hemoglobin 29 pg (25-35) Mean Corpuscular Hemoglobin Concent 31 g/dL (31-37) Red Cell Distribution Width 15.4 % (11.5-14.5) Platelet Count 246 x10^3/uL (140-400) Neutrophils (%) (Auto) 35 % (31-73) Lymphocytes (%) (Auto) 33 % (24-48) Monocytes (%) (Auto) 5 % (0-9) Eosinophils (%) (Auto) 26 % (0-3) Basophils (%) (Auto) 1 % (0-3) Neutrophils # (Auto) 6.1 x10^3uL (1.8-7.7) Lymphocytes # (Auto) 5.8 x10^3/uL (1.0-4.8) Monocytes # (Auto) 0.9 x10^3/uL (0.0-1.1) Eosinophils # (Auto) 4.5 x10^3/uL (0.0-0.7) Basophils # (Auto) 0.1 x10^3/uL (0.0-0.2) Segmented Neutrophils % 34 % (35-66) Lymphocytes % 39 % (24-48) Monocytes % 2 % (0-10) Eosinophils % 25 % (0-5) Platelet Estimate Adequate (ADEQUATE) Poikilocytosis Slight Anisocytosis Slight Shiner Cells Few Acanthocytes Occ Schistocytes Occ Sodium Level 138 mmol/L (136-145) Potassium Level 5.0 mmol/L (3.5-5.1) Chloride Level 101 mmol/L (98-107) Carbon Dioxide Level 30 mmol/L (21-32) Anion Gap 7 (6-14) Blood Urea Nitrogen 10 mg/dL (7-20) Creatinine 1.0 mg/dL (0.6-1.0) Estimated GFR (Cockcroft-Gault) 65.6 BUN/Creatinine Ratio 10 (6-20) Glucose Level 178 mg/dL (70-99) Lactic Acid Level 2.8 mmol/L (0.4-2.0) Calcium Level 9.7 mg/dL (8.5-10.1) Total Bilirubin 0.3 mg/dL (0.2-1.0) Aspartate Amino Transf (AST/SGOT) 25 U/L (15-37) Alanine Aminotransferase (ALT/SGPT) 14 U/L (14-59) Alkaline Phosphatase 148 U/L (46-116) Creatine Kinase 89 U/L (26-192) Troponin I Quantitative 0.020 ng/mL (0.000-0.055) YV-Igs-J-Type Natriuretic Peptide 2832 pg/mL (0-124) Total Protein 7.6 g/dL (6.4-8.2) Albumin 3.3 g/dL (3.4-5.0) Albumin/Globulin Ratio 0.8 (1.0-1.7) Ethyl Alcohol Level < 10 mg/dL (0-10) Urine Collection Type U cath Urine Color Yellow Urine Clarity Clear Urine pH 6.0 Urine Specific [place] 1.015 Urine Protein Negative mg/dL (NEG-TRACE) Urine Glucose (UA) Negative mg/dL (NEG) Urine Ketones (Stick) Negative mg/dL (NEG) Urine Blood Negative (NEG) Urine Nitrite Negative (NEG) Urine Bilirubin Negative (NEG) Urine Urobilinogen Dipstick 0.2 mg/dL (0.2 mg/dL) Urine Leukocyte Esterase Negative (NEG) Urine RBC 0 /HPF (0-2) Urine WBC 0 /HPF (0-4) Urine Squamous Epithelial Cells Few /LPF Urine Amorphous Sediment Present /HPF Urine Bacteria 0 /HPF (0-FEW) Urine Hyaline Casts Few /HPF Urine Mucus Slight /LPF Urine Opiates Screen Pos (NEG) Urine Methadone Screen Neg (NEG) Urine Barbiturates Neg (NEG) Urine Phencyclidine Screen Neg (NEG) Urine Amphetamine/Methamphetamine Neg (NEG) Urine Benzodiazepines Screen Neg (NEG) Urine Cocaine Screen Neg (NEG) Urine Cannabinoids Screen Neg (NEG) Urine Ethyl Alcohol Neg (NEG) Influenza Type A Antigen Negative (NEGATIVE) Influenza Type B Antigen Negative (NEGATIVE) O2 Saturation 90 % (92-99) Arterial Blood pH 7.36 (7.35-7.45) Arterial Blood pCO2 at Patient Temp 51 mmHg (35-46) Arterial Blood pO2 at Patient Temp 61 mmHg (65-108) Arterial Blood HCO3 28 mmol/L (21-28) Arterial Blood Base Excess 2 mmol/L (-3-3) Oxyhemoglobin 89.6 % Methemoglobin 0.4 % (0.0-1.9) Carbon Monoxide, Quantitative 0.3 % (0.0-1.9) FiO2 40 Test 01/04/19 15:30 Lactic Acid Level 2.8 mmol/L (0.4-2.0) Troponin I Quantitative 0.187 ng/mL (0.000-0.055) Laboratory Tests Test 01/04/19 11:45 01/04/19 12:00 01/04/19 13:33 01/04/19 13:35 White Blood Count 17.3 x10^3/uL (4.0-11.0) Red Blood Count 4.43 x10^6/uL (3.50-5.40) Hemoglobin 12.9 g/dL (12.0-15.5) Hematocrit 41.5 % (36.0-47.0) Mean Corpuscular Volume 94 fL (79-100) Mean Corpuscular Hemoglobin 29 pg (25-35) Mean Corpuscular Hemoglobin Concent 31 g/dL (31-37) Red Cell Distribution Width 15.4 % (11.5-14.5) Platelet Count 246 x10^3/uL (140-400) Neutrophils (%) (Auto) 35 % (31-73) Lymphocytes (%) (Auto) 33 % (24-48) Monocytes (%) (Auto) 5 % (0-9) Eosinophils (%) (Auto) 26 % (0-3) Basophils (%) (Auto) 1 % (0-3) Neutrophils # (Auto) 6.1 x10^3uL (1.8-7.7) Lymphocytes # (Auto) 5.8 x10^3/uL (1.0-4.8) Monocytes # (Auto) 0.9 x10^3/uL (0.0-1.1) Eosinophils # (Auto) 4.5 x10^3/uL (0.0-0.7) Basophils # (Auto) 0.1 x10^3/uL (0.0-0.2) Segmented Neutrophils % 34 % (35-66) Lymphocytes % 39 % (24-48) Monocytes % 2 % (0-10) Eosinophils % 25 % (0-5) Platelet Estimate Adequate (ADEQUATE) Poikilocytosis Slight Anisocytosis Slight Shiner Cells Few Acanthocytes Occ Schistocytes Occ Sodium Level 138 mmol/L (136-145) Potassium Level 5.0 mmol/L (3.5-5.1) Chloride Level 101 mmol/L (98-107) Carbon Dioxide Level 30 mmol/L (21-32) Anion Gap 7 (6-14) Blood Urea Nitrogen 10 mg/dL (7-20) Creatinine 1.0 mg/dL (0.6-1.0) Estimated GFR (Cockcroft-Gault) 65.6 BUN/Creatinine Ratio 10 (6-20) Glucose Level 178 mg/dL (70-99) Lactic Acid Level 2.8 mmol/L (0.4-2.0) Calcium Level 9.7 mg/dL (8.5-10.1) Total Bilirubin 0.3 mg/dL (0.2-1.0) Aspartate Amino Transf (AST/SGOT) 25 U/L (15-37) Alanine Aminotransferase (ALT/SGPT) 14 U/L (14-59) Alkaline Phosphatase 148 U/L (46-116) Creatine Kinase 89 U/L (26-192) Troponin I Quantitative 0.020 ng/mL (0.000-0.055) ZO-Ivj-B-Type Natriuretic Peptide 2832 pg/mL (0-124) Total Protein 7.6 g/dL (6.4-8.2) Albumin 3.3 g/dL (3.4-5.0) Albumin/Globulin Ratio 0.8 (1.0-1.7) Ethyl Alcohol Level < 10 mg/dL (0-10) Urine Collection Type U cath Urine Color Yellow Urine Clarity Clear Urine pH 6.0 Urine Specific [place] 1.015 Urine Protein Negative mg/dL (NEG-TRACE) Urine Glucose (UA) Negative mg/dL (NEG) Urine Ketones (Stick) Negative mg/dL (NEG) Urine Blood Negative (NEG) Urine Nitrite Negative (NEG) Urine Bilirubin Negative (NEG) Urine Urobilinogen Dipstick 0.2 mg/dL (0.2 mg/dL) Urine Leukocyte Esterase Negative (NEG) Urine RBC 0 /HPF (0-2) Urine WBC 0 /HPF (0-4) Urine Squamous Epithelial Cells Few /LPF Urine Amorphous Sediment Present /HPF Urine Bacteria 0 /HPF (0-FEW) Urine Hyaline Casts Few /HPF Urine Mucus Slight /LPF Urine Opiates Screen Pos (NEG) Urine Methadone Screen Neg (NEG) Urine Barbiturates Neg (NEG) Urine Phencyclidine Screen Neg (NEG) Urine Amphetamine/Methamphetamine Neg (NEG) Urine Benzodiazepines Screen Neg (NEG) Urine Cocaine Screen Neg (NEG) Urine Cannabinoids Screen Neg (NEG) Urine Ethyl Alcohol Neg (NEG) Influenza Type A Antigen Negative (NEGATIVE) Influenza Type B Antigen Negative (NEGATIVE) O2 Saturation 90 % (92-99) Arterial Blood pH 7.36 (7.35-7.45) Arterial Blood pCO2 at Patient Temp 51 mmHg (35-46) Arterial Blood pO2 at Patient Temp 61 mmHg (65-108) Arterial Blood HCO3 28 mmol/L (21-28) Arterial Blood Base Excess 2 mmol/L (-3-3) Oxyhemoglobin 89.6 % Methemoglobin 0.4 % (0.0-1.9) Carbon Monoxide, Quantitative 0.3 % (0.0-1.9) FiO2 40 Test 01/04/19 15:30 Lactic Acid Level 2.8 mmol/L (0.4-2.0) Troponin I Quantitative 0.187 ng/mL (0.000-0.055) Medications Active Scripts Medications Dose Route/Sig Max Daily Dose Days Date Category Clopidogrel (Clopidogrel Bisulfate) 75 Mg Tablet 75 Mg PO DAILYWBKFT 30 12/01/18 Rx Alprazolam 0.25 Mg Tablet 1 Tab PO TID 11/25/18 Reported Flovent 110MCG Hfa (Fluticasone Propionate) 12 Gm Aer.w.adap 2 Puff IH BID 11/25/18 Reported Spironolactone 25 Mg Tablet 1 Tab PO DAILY 11/25/18 Reported Protonix (Pantoprazole Sodium) 20 Mg Tablet.dr 40 Mg PO DAILY 11/25/18 Reported Oxycodone Hcl 5 Mg/5 Ml Solution 5 Mg PO PRN Q4HRS PRN 11/25/18 Reported Lisinopril 2.5 Mg Tablet 2.5 Mg PO DAILY 11/25/18 Reported Guaifenesin 600 Mg Tablet.er 600 Mg PO BID 11/25/18 Reported Sertraline Hcl 50 Mg Tablet 50 Mg PO DAILY 11/25/18 Reported Lasix (Furosemide) 20 Mg Tablet 1 Tab PO DAILY 10/04/18 Rx Proair Hfa Inhaler (Albuterol Sulfate) 8.5 Gm Hfa.aer.ad 1 Puff INH PRN Q6HRS PRN 14 10/04/18 Rx Tramadol Hcl 50 Mg Tablet 1 Tab PO PRN Q6HRS PRN 08/13/18 Reported Duoneb 0.5-3(2.5) Mg/3 Ml (Albuterol/Ipratropium) 3 Ml Ampul.neb 3 Ml NEB QID 04/17/18 Reported Zofran (Ondansetron Hcl) 4 Mg Tablet 1 Tab PO Q8HRS PRN 05/19/16 Rx Atorvastatin Calcium 40 Mg Tablet 40 Mg PO HS 09/24/15 Reported Carvedilol (Carvedilol) 6.25 Mg Tablet 6.25 Mg PO BIDWMEALS 09/24/15 Reported Vitamin D (Cholecalciferol (Vitamin D3)) 2,000 Unit Capsule 2,000 Unit PO BIDAFTMEAL 01/07/15 Reported Aspirin Ec (Aspirin) 325 Mg Tablet. 325 Mg PO DAILY 01/07/15 Reported Impression . FULL NOTE DICTATED ACUTE RESP FAILURE MULTIFACTORIAL AGREE WITH CURRENT RX THANKS REGGIE CONTRERAS MD Jan 04, 2019 18:11
[2019-01-04] MEDS ORDERED: VANCOMYCIN 1 GM in IV NORMAL SALINE 250ML 250 ML IV ONE (19:00)
[2019-01-04 19:32] LABS: BILIRUBIN,URINE SMALL (NEG); CLARITY,URINE TURBID; COLOR,URINE AMBER; NITRITE,URINE NEGATIVE (NEG); PROTEIN,URINE 30 mg/dL (NEG-TRACE); UROBILINOGEN,URINE 0.2 mg/dL (0.2 mg/dL)
[2019-01-04 19:57] LABS: PROTHROMBIN TIME PATIENT 14.7 SEC (11.7-14.0)
--- NOTE | 2019-01-04 20:11 | NUR ---
Pharmacy Vancomycin Dosing Note S:Consulted to monitor and dose vancomycin started 01/04/19. O:JUAN LUIS REED is a 73 year old F with Empiric . Height: 5 feet, 5 inches Weight: 45.216325 kg [place] Body Weight: 57.00 Adjusted Body Weight: 52.60 Dosing Weight: Actual Other Antibiotics: Levaquin LABS: Last BUN: 10 Last Creatinine: 1.0 Creatinine Clearance: 36 mL/min Last WBC: 17.3 Last Procalcitonin: Tmax (past 24 hours): 98.3 Microbiology: I/O: Drug Levels: Last level: on at Last dose given 01/04/19 at 1942 Vancomycin Dosing: Loading Dose: 1000 mg x1 Dosing Weight: Actual Target Trough: 15-20 A: Based on weight and est. CrCl: P: 1. Vancomycin 1000mg, followed by Vancomycin 750 mg IV q24h. 2. Follow up Trough level on 01/06/19 at 1930. 3. Pharmacy will continue to monitor, follow and adjust therapy as needed. Thiago Hector FORMERLY [facility] [place], 01/04/192010
[2019-01-04 20:14] LABS: AMORPHOUS SEDIMENT,UR PRESENT /HPF; BACTERIA,URINE 0 /HPF (0-FEW); SQUAMOUS EPITHELIAL CELL,UR FEW /LPF; WBC,URINE OCC /HPF (0-4)
[2019-01-04 20:20] LABS: D-DIMER 3.99 ug/mlFEU (0.00-0.50)
[2019-01-04] MEDS: FAMOTIDINE 20 MG/2 ML VIAL IVP SCH (21:10)
[2019-01-04] MEDS: CHLORHEXIDINE 0.12% 15 ML MOUTHWASH. MM SCH (21:10)
[2019-01-05] VITALS (24 sets, daily range): BP systolic 72–162; BP diastolic 50–94
[2019-01-05] MEDS: fentaNYL PF VIAL 100 MCG/2 ML VIAL IV PRN (01:43)
[2019-01-05] MEDS ORDERED: FUROSEMIDE 20 MG/2 ML VIAL. IVP ONE (02:45)
[2019-01-05 03:35] LABS: BASO % 0 % (0-3); EOS % 0 % (0-3); HEMATOCRIT 36.9 % (36.0-47.0); HEMOGLOBIN 11.7 g/dL (12.0-15.5); LYMPH % 7 % (24-48); MEAN CORPUSCULAR HEMOGLOBIN 29 pg (25-35); MEAN CORPUSCULAR HGB CONC 32 g/dL (31-37); MEAN CORPUSCULAR VOLUME 91 fL (79-100); MONO # 0.9 x10^3/uL (0.0-1.1); MONO % 7 % (0-9); NEUT # 11.8 x10^3uL (1.8-7.7); NEUT % 86 % (31-73); PLATELET COUNT 213 x10^3/uL (140-400); RED BLOOD COUNT 4.06 x10^6/uL (3.50-5.40); RED CELL DISTRIBUTION WIDTH 14.9 % (11.5-14.5); WHITE BLOOD COUNT 13.7 x10^3/uL (4.0-11.0)
--- NOTE | 2019-01-05 06:09 | CONS ---
DATE OF CONSULTATION: 01/04/2019 ATTENDING PHYSICIAN: Dr. Ames. REASON FOR CONSULTATION: The patient is seen in pulmonary consultation at the request of Dr. Ames for vent management. HISTORY OF PRESENT ILLNESS: The patient is a 73-year-old that is well known to my service from previous hospitalization. She has had recurrent pneumonia secondary to aspiration. She has eating disorder. She has had PEG tube in place for chronic emesis and poor nutrition. She presented with severe respiratory distress. According to the family, she became more short of breath yesterday throughout the day. She had some OxyContin for chronic pain. She presented to the Emergency Room with pretty much out of it. There was an empty pill bottle at home. They tried Narcan en route, but did not help the respiratory distress. As a consequence, the patient was intubated. She is currently in the intensive care unit, assist control ventilation, rate of 18, tidal volume of 450, FiO2 45%. Influenza screen was negative. Toxicology screen was positive for opiates. UA was noted. Electrolytes were noted. BUN and creatinine were normal. White count was elevated at 17,000. Arterial blood gas, pH of 7.36, paCO2 of 51, pO2 of 61 on 40%. Chest x-ray revealed chronic interstitial lung markings. There are no new consolidations or infiltrates. PAST MEDICAL HISTORY: Recurrent pneumonia secondary to chronic emesis, eating disorder. She is status post PEG tube placement. She has a history of coronary artery disease, chronic heart failure, COPD, hypertension, previous pacemaker implantation. She is status post hysterectomy. She has had previous cardiac stenting. There is a history of AFib. PAST SURGICAL HISTORY: As above, pacemaker, appendectomy, hysterectomy. ALLERGIES: LISTED TO PENICILLIN, SULFA, MORPHINE. REVIEW OF SYSTEMS: Unobtainable secondary to the patient's condition. CURRENT MEDICATIONS: List was reviewed. PHYSICAL EXAMINATION: VITAL SIGNS: Stable. She was hemodynamically stable on assist control ventilation. HEENT: Eyes, the sclerae were nonicteric. NECK: Jugular venous distention was not elevated. No lymphadenopathy. CHEST: Full expansion. LUNGS: Crackles throughout both lung alvarez. CARDIOVASCULAR: Regular rate and rhythm with S1, S2, no S3. ABDOMEN: Soft, nontender, nondistended. She has a PEG in place. EXTREMITIES: No clubbing, cyanosis or edema. Labs and chest x-ray as indicated above. IMPRESSION: 1. Acute hypoxemic hypercapnic respiratory failure, multifactorial. 2. Overdose on OxyContin. 3. Chronic interstitial lung disease. 4. Chronic eating disorder, status post PEG tube placement. 5. Depression. 6. Chronic obstructive pulmonary disease. 7. Other comorbidities. 8. Severe cardiomyopathy, ejection fraction 10-15%. 9. Coronary artery disease, status post previous stenting. 10. Acute on chronic systolic, diastolic heart failure. PLAN: 1. Follow Cardiology input. 2. Recommend sepsis protocol for now. 3. ID consulted. I do appreciate the privilege in sharing in the patient's care. REGGIE CONTRERAS MD DR: CAROLA/murali JOB#: [id number] / [id number]
[2019-01-05] MEDS: IV NORMAL SALINE 1000ML BAG 1,000 ML IV SCH ×2 (06:21→23:56)
[2019-01-05] MEDS: MIDAZOLAM 100mg/100ml NS BAG 100 ML IV PRN ×2 (06:51→16:31)
--- NOTE | 2019-01-05 07:42 | PDOC ---
Infectious Disease Note Vital Signs: Vital Signs Vital Signs Date Time Temp Pulse Resp B/P (MAP) Pulse Ox O2 Delivery O2 Flow Rate FiO2 01/05/19 06:00 96 18 146/67 (93) 99 Ventilator 01/05/19 04:00 99.5 99.5 01/04/19 11:48 15.0 Medications: Inpatient Meds: Current Medications Medications (Trade) Dose Ordered Sig/Lisandra Start Time Stop Time Status Last Admin Dose Admin Albuterol/ Ipratropium (Duoneb) 3 ml RTQID 01/04/19 16:00 01/05/19 15:59 01/04/19 19:33 3 ML Chlorhexidine Gluconate (Peridex) 15 ml BID 01/04/19 21:00 01/04/19 21:10 15 ML Etomidate (Amidate) 10 mg 1X ONCE 01/04/19 12:00 01/04/19 12:01 DC 01/04/19 11:39 10 MG Famotidine (Pepcid Vial) 20 mg BID 01/04/19 21:00 01/04/19 21:10 20 MG Fentanyl Citrate (Fentanyl 2ml Vial) 50 mcg PRN Q1HR PRN 01/04/19 11:45 01/05/19 01:43 50 MCG Furosemide (Lasix) 20 mg 1X ONCE 01/05/19 02:45 01/05/19 02:46 DC 01/05/19 03:19 20 MG Levofloxacin/ Dextrose 50 ml @ 50 mls/hr Q24H 01/05/19 18:00 Methylprednisolone Sodium Succinate (SOLU-Medrol 125MG VIAL) 125 mg 1X ONCE 01/04/19 12:30 01/04/19 12:31 DC 01/04/19 12:44 125 MG Midazolam HCl (Versed) 5 mg 1X ONCE 01/04/19 15:15 01/04/19 15:16 DC 01/04/19 14:00 5 MG Morphine Sulfate (Morphine Sulfate) 2 mg PRN Q1HR PRN 01/04/19 11:45 Sodium Chloride 500 ml @ 1,000 mls/hr PRN Q30MIN PRN 01/04/19 18:00 Succinylcholine Chloride (Anectine) 50 mg 1X ONCE 01/04/19 12:00 01/04/19 12:01 DC 01/04/19 11:39 50 MG Vancomycin HCl (Vanco Per Pharmacy) 1 each PRN DAILY PRN 01/04/19 18:00 01/04/19 20:07 1 EACH Vancomycin HCl (Vancomycin Trough Level) 1 each 1X ONCE 01/06/19 19:30 01/06/19 19:31 Vancomycin HCl 750 mg/Sodium Chloride 250 ml @ 250 mls/hr Q24H 01/05/19 20:00 Vancomycin HCl 1 gm/Sodium Chloride 250 ml @ 250 mls/hr 1X ONCE 01/04/19 19:00 01/04/19 19:59 DC 01/04/19 19:42 250 MLS/HR Labs: Lab Laboratory Tests Test 01/04/19 11:45 01/04/19 12:00 01/04/19 13:33 01/04/19 13:35 White Blood Count 17.3 x10^3/uL (4.0-11.0) Red Blood Count 4.43 x10^6/uL (3.50-5.40) Hemoglobin 12.9 g/dL (12.0-15.5) Hematocrit 41.5 % (36.0-47.0) Mean Corpuscular Volume 94 fL (79-100) Mean Corpuscular Hemoglobin 29 pg (25-35) Mean Corpuscular Hemoglobin Concent 31 g/dL (31-37) Red Cell Distribution Width 15.4 % (11.5-14.5) Platelet Count 246 x10^3/uL (140-400) Neutrophils (%) (Auto) 35 % (31-73) Lymphocytes (%) (Auto) 33 % (24-48) Monocytes (%) (Auto) 5 % (0-9) Eosinophils (%) (Auto) 26 % (0-3) Basophils (%) (Auto) 1 % (0-3) Neutrophils # (Auto) 6.1 x10^3uL (1.8-7.7) Lymphocytes # (Auto) 5.8 x10^3/uL (1.0-4.8) Monocytes # (Auto) 0.9 x10^3/uL (0.0-1.1) Eosinophils # (Auto) 4.5 x10^3/uL (0.0-0.7) Basophils # (Auto) 0.1 x10^3/uL (0.0-0.2) Segmented Neutrophils % 34 % (35-66) Lymphocytes % 39 % (24-48) Monocytes % 2 % (0-10) Eosinophils % 25 % (0-5) Platelet Estimate Adequate (ADEQUATE) Poikilocytosis Slight Anisocytosis Slight [place] Cells Few Acanthocytes Occ Schistocytes Occ Sodium Level 138 mmol/L (136-145) Potassium Level 5.0 mmol/L (3.5-5.1) Chloride Level 101 mmol/L (98-107) Carbon Dioxide Level 30 mmol/L (21-32) Anion Gap 7 (6-14) Blood Urea Nitrogen 10 mg/dL (7-20) Creatinine 1.0 mg/dL (0.6-1.0) Estimated GFR (Cockcroft-Gault) 65.6 BUN/Creatinine Ratio 10 (6-20) Glucose Level 178 mg/dL (70-99) Lactic Acid Level 2.8 mmol/L (0.4-2.0) Calcium Level 9.7 mg/dL (8.5-10.1) Total Bilirubin 0.3 mg/dL (0.2-1.0) Aspartate Amino Transf (AST/SGOT) 25 U/L (15-37) Alanine Aminotransferase (ALT/SGPT) 14 U/L (14-59) Alkaline Phosphatase 148 U/L (46-116) Creatine Kinase 89 U/L (26-192) Troponin I Quantitative 0.020 ng/mL (0.000-0.055) QF-Mdl-Y-Type Natriuretic Peptide 2832 pg/mL (0-124) Total Protein 7.6 g/dL (6.4-8.2) Albumin 3.3 g/dL (3.4-5.0) Albumin/Globulin Ratio 0.8 (1.0-1.7) Ethyl Alcohol Level < 10 mg/dL (0-10) Urine Collection Type U cath Urine Color Yellow Urine Clarity Clear Urine pH 6.0 Urine Specific [place] 1.015 Urine Protein Negative mg/dL (NEG-TRACE) Urine Glucose (UA) Negative mg/dL (NEG) Urine Ketones (Stick) Negative mg/dL (NEG) Urine Blood Negative (NEG) Urine Nitrite Negative (NEG) Urine Bilirubin Negative (NEG) Urine Urobilinogen Dipstick 0.2 mg/dL (0.2 mg/dL) Urine Leukocyte Esterase Negative (NEG) Urine RBC 0 /HPF (0-2) Urine WBC 0 /HPF (0-4) Urine Squamous Epithelial Cells Few /LPF Urine Amorphous Sediment Present /HPF Urine Bacteria 0 /HPF (0-FEW) Urine Hyaline Casts Few /HPF Urine Mucus Slight /LPF Urine Opiates Screen Pos (NEG) Urine Methadone Screen Neg (NEG) Urine Barbiturates Neg (NEG) Urine Phencyclidine Screen Neg (NEG) Urine Amphetamine/Methamphetamine Neg (NEG) Urine Benzodiazepines Screen Neg (NEG) Urine Cocaine Screen Neg (NEG) Urine Cannabinoids Screen Neg (NEG) Urine Ethyl Alcohol Neg (NEG) Influenza Type A Antigen Negative (NEGATIVE) Influenza Type B Antigen Negative (NEGATIVE) O2 Saturation 90 % (92-99) Arterial Blood pH 7.36 (7.35-7.45) Arterial Blood pCO2 at Patient Temp 51 mmHg (35-46) Arterial Blood pO2 at Patient Temp 61 mmHg (65-108) Arterial Blood HCO3 28 mmol/L (21-28) Arterial Blood Base Excess 2 mmol/L (-3-3) Oxyhemoglobin 89.6 % Methemoglobin 0.4 % (0.0-1.9) Carbon Monoxide, Quantitative 0.3 % (0.0-1.9) FiO2 40 Test 01/04/19 15:30 01/04/19 19:00 01/04/19 19:30 01/05/19 03:25 Lactic Acid Level 2.8 mmol/L (0.4-2.0) 1.8 mmol/L (0.4-2.0) Troponin I Quantitative 0.187 ng/mL (0.000-0.055) 0.260 ng/mL (0.000-0.055) Urine Collection Type Unknown Urine Color [place] Urine Clarity Turbid Urine pH 6.0 Urine Specific [place] 1.020 Urine Protein 30 mg/dL (NEG-TRACE) Urine Glucose (UA) Negative mg/dL (NEG) Urine Ketones (Stick) 15 mg/dL (NEG) Urine Blood Large (NEG) Urine Nitrite Negative (NEG) Urine Bilirubin Small (NEG) Urine Urobilinogen Dipstick 0.2 mg/dL (0.2 mg/dL) Urine Leukocyte Esterase Small (NEG) Urine RBC 6-10 /HPF (0-2) Urine WBC Occ /HPF (0-4) Urine Squamous Epithelial Cells Few /LPF Urine Amorphous Sediment Present /HPF Urine Bacteria 0 /HPF (0-FEW) Prothrombin Time 14.7 SEC (11.7-14.0) Prothromb Time International Ratio 1.2 (0.8-1.1) Fibrinogen 418 mg/dL (200-440) D-Dimer (Jenny) 3.99 ug/mlFEU (0.00-0.50) Procalcitonin 1.11 ng/mL (0.00-0.10) White Blood Count 13.7 x10^3/uL (4.0-11.0) Red Blood Count 4.06 x10^6/uL (3.50-5.40) Hemoglobin 11.7 g/dL (12.0-15.5) Hematocrit 36.9 % (36.0-47.0) Mean Corpuscular Volume 91 fL (79-100) Mean Corpuscular Hemoglobin 29 pg (25-35) Mean Corpuscular Hemoglobin Concent 32 g/dL (31-37) Red Cell Distribution Width 14.9 % (11.5-14.5) Platelet Count 213 x10^3/uL (140-400) Neutrophils (%) (Auto) 86 % (31-73) Lymphocytes (%) (Auto) 7 % (24-48) Monocytes (%) (Auto) 7 % (0-9) Eosinophils (%) (Auto) 0 % (0-3) Basophils (%) (Auto) 0 % (0-3) Neutrophils # (Auto) 11.8 x10^3uL (1.8-7.7) Lymphocytes # (Auto) 1.0 x10^3/uL (1.0-4.8) Monocytes # (Auto) 0.9 x10^3/uL (0.0-1.1) Eosinophils # (Auto) 0.0 x10^3/uL (0.0-0.7) Basophils # (Auto) 0.0 x10^3/uL (0.0-0.2) Objective: Assessment: Pt seen and examined Consult dictated IMP Febrile illness Leucocytosis Lactic acidosis PENICILLIN allergy, but has tolerated amoxicillin per chart review Acute resp failure appears multifactorial Overdose on OxyContin. H/O Chronic interstitial lung disease. COPD h/o severe Cardiomyopathy, EF 10-15 % CAD/CHF Depression Chronic dysphagia; s/p PEG tube for chronic vomiting AICD HTN Severe MR,not a surgical candidate Plan: Plan of Care DC Levaquin /IV Vanc start zosyn ,pt has tolerated amoxicillin per chart review F/U C/S and labs in am Cont supportive care D/W RN [id number] Thank you AURELIA TERRY MD Jan 05, 2019 07:42
[2019-01-05] MEDS: IPRATRPIUM/ALBUTEROL 0.5/2.5MG 3 ML NEBU. NEB SCH ×4 (08:03→19:49)
--- NOTE | 2019-01-05 08:45 | RAD ---
Portable chest, 01/05/2019: HISTORY: Respiratory failure Comparison is made to yesterday's study. The ET tube tip lies well above the kriss. An NG tube extends into the proximal stomach. A left-sided transvenous pacing device is unchanged. Epicardial pacing leads overlie the left side of the heart. The left ventricle is enlarged. There are unchanged right apical pleural-parenchymal opacities compatible with scarring versus chronic infiltrate. There are granulomatous calcifications in the right chest. Additional minimal scattered parenchymal opacities are probably scars. No new pulmonary abnormality is seen. There is no evidence of pleural fluid. IMPRESSION: No significant change since yesterday's exam. Electronically signed by: Steven Latif MD (01/05/2019 8:41 AM) [facility]
[2019-01-05] MEDS: FAMOTIDINE 20 MG/2 ML VIAL IVP SCH (09:04)
--- NOTE | 2019-01-05 09:17 | PDOC ---
PULMONARY PROGRESS NOTES Subjective PT STABLE ON VENT AC MODE Vitals Vital Signs Date Time Temp Pulse Resp B/P (MAP) Pulse Ox O2 Delivery O2 Flow Rate FiO2 01/05/19 08:00 Mechanical Ventilator 01/05/19 08:00 102 18 154/93 (113) 100 01/05/19 07:00 98.0 98.0 01/04/19 11:48 15.0 Lungs: Crackles Cardiovascular: S1, S2 Extremities: No Edema Skin: Warm Labs Laboratory Tests Test 01/04/19 11:45 01/04/19 12:00 01/04/19 13:33 01/04/19 13:35 White Blood Count 17.3 x10^3/uL (4.0-11.0) Red Blood Count 4.43 x10^6/uL (3.50-5.40) Hemoglobin 12.9 g/dL (12.0-15.5) Hematocrit 41.5 % (36.0-47.0) Mean Corpuscular Volume 94 fL (79-100) Mean Corpuscular Hemoglobin 29 pg (25-35) Mean Corpuscular Hemoglobin Concent 31 g/dL (31-37) Red Cell Distribution Width 15.4 % (11.5-14.5) Platelet Count 246 x10^3/uL (140-400) Neutrophils (%) (Auto) 35 % (31-73) Lymphocytes (%) (Auto) 33 % (24-48) Monocytes (%) (Auto) 5 % (0-9) Eosinophils (%) (Auto) 26 % (0-3) Basophils (%) (Auto) 1 % (0-3) Neutrophils # (Auto) 6.1 x10^3uL (1.8-7.7) Lymphocytes # (Auto) 5.8 x10^3/uL (1.0-4.8) Monocytes # (Auto) 0.9 x10^3/uL (0.0-1.1) Eosinophils # (Auto) 4.5 x10^3/uL (0.0-0.7) Basophils # (Auto) 0.1 x10^3/uL (0.0-0.2) Segmented Neutrophils % 34 % (35-66) Lymphocytes % 39 % (24-48) Monocytes % 2 % (0-10) Eosinophils % 25 % (0-5) Platelet Estimate Adequate (ADEQUATE) Poikilocytosis Slight Anisocytosis Slight [place] Cells Few Acanthocytes Occ Schistocytes Occ Sodium Level 138 mmol/L (136-145) Potassium Level 5.0 mmol/L (3.5-5.1) Chloride Level 101 mmol/L (98-107) Carbon Dioxide Level 30 mmol/L (21-32) Anion Gap 7 (6-14) Blood Urea Nitrogen 10 mg/dL (7-20) Creatinine 1.0 mg/dL (0.6-1.0) Estimated GFR (Cockcroft-Gault) 65.6 BUN/Creatinine Ratio 10 (6-20) Glucose Level 178 mg/dL (70-99) Lactic Acid Level 2.8 mmol/L (0.4-2.0) Calcium Level 9.7 mg/dL (8.5-10.1) Total Bilirubin 0.3 mg/dL (0.2-1.0) Aspartate Amino Transf (AST/SGOT) 25 U/L (15-37) Alanine Aminotransferase (ALT/SGPT) 14 U/L (14-59) Alkaline Phosphatase 148 U/L (46-116) Creatine Kinase 89 U/L (26-192) Troponin I Quantitative 0.020 ng/mL (0.000-0.055) UL-Pqp-O-Type Natriuretic Peptide 2832 pg/mL (0-124) Total Protein 7.6 g/dL (6.4-8.2) Albumin 3.3 g/dL (3.4-5.0) Albumin/Globulin Ratio 0.8 (1.0-1.7) Ethyl Alcohol Level < 10 mg/dL (0-10) Urine Collection Type U cath Urine Color Yellow Urine Clarity Clear Urine pH 6.0 Urine Specific [place] 1.015 Urine Protein Negative mg/dL (NEG-TRACE) Urine Glucose (UA) Negative mg/dL (NEG) Urine Ketones (Stick) Negative mg/dL (NEG) Urine Blood Negative (NEG) Urine Nitrite Negative (NEG) Urine Bilirubin Negative (NEG) Urine Urobilinogen Dipstick 0.2 mg/dL (0.2 mg/dL) Urine Leukocyte Esterase Negative (NEG) Urine RBC 0 /HPF (0-2) Urine WBC 0 /HPF (0-4) Urine Squamous Epithelial Cells Few /LPF Urine Amorphous Sediment Present /HPF Urine Bacteria 0 /HPF (0-FEW) Urine Hyaline Casts Few /HPF Urine Mucus Slight /LPF Urine Opiates Screen Pos (NEG) Urine Methadone Screen Neg (NEG) Urine Barbiturates Neg (NEG) Urine Phencyclidine Screen Neg (NEG) Urine Amphetamine/Methamphetamine Neg (NEG) Urine Benzodiazepines Screen Neg (NEG) Urine Cocaine Screen Neg (NEG) Urine Cannabinoids Screen Neg (NEG) Urine Ethyl Alcohol Neg (NEG) Influenza Type A Antigen Negative (NEGATIVE) Influenza Type B Antigen Negative (NEGATIVE) O2 Saturation 90 % (92-99) Arterial Blood pH 7.36 (7.35-7.45) Arterial Blood pCO2 at Patient Temp 51 mmHg (35-46) Arterial Blood pO2 at Patient Temp 61 mmHg (65-108) Arterial Blood HCO3 28 mmol/L (21-28) Arterial Blood Base Excess 2 mmol/L (-3-3) Oxyhemoglobin 89.6 % Methemoglobin 0.4 % (0.0-1.9) Carbon Monoxide, Quantitative 0.3 % (0.0-1.9) FiO2 40 Test 01/04/19 15:30 01/04/19 19:00 01/04/19 19:30 01/05/19 03:25 Lactic Acid Level 2.8 mmol/L (0.4-2.0) 1.8 mmol/L (0.4-2.0) Troponin I Quantitative 0.187 ng/mL (0.000-0.055) 0.260 ng/mL (0.000-0.055) Urine Collection Type Unknown Urine Color [place] Urine Clarity Turbid Urine pH 6.0 Urine Specific [place] 1.020 Urine Protein 30 mg/dL (NEG-TRACE) Urine Glucose (UA) Negative mg/dL (NEG) Urine Ketones (Stick) 15 mg/dL (NEG) Urine Blood Large (NEG) Urine Nitrite Negative (NEG) Urine Bilirubin Small (NEG) Urine Urobilinogen Dipstick 0.2 mg/dL (0.2 mg/dL) Urine Leukocyte Esterase Small (NEG) Urine RBC 6-10 /HPF (0-2) Urine WBC Occ /HPF (0-4) Urine Squamous Epithelial Cells Few /LPF Urine Amorphous Sediment Present /HPF Urine Bacteria 0 /HPF (0-FEW) Prothrombin Time 14.7 SEC (11.7-14.0) Prothromb Time International Ratio 1.2 (0.8-1.1) Fibrinogen 418 mg/dL (200-440) D-Dimer (Jenny) 3.99 ug/mlFEU (0.00-0.50) Procalcitonin 1.11 ng/mL (0.00-0.10) White Blood Count 13.7 x10^3/uL (4.0-11.0) Red Blood Count 4.06 x10^6/uL (3.50-5.40) Hemoglobin 11.7 g/dL (12.0-15.5) Hematocrit 36.9 % (36.0-47.0) Mean Corpuscular Volume 91 fL (79-100) Mean Corpuscular Hemoglobin 29 pg (25-35) Mean Corpuscular Hemoglobin Concent 32 g/dL (31-37) Red Cell Distribution Width 14.9 % (11.5-14.5) Platelet Count 213 x10^3/uL (140-400) Neutrophils (%) (Auto) 86 % (31-73) Lymphocytes (%) (Auto) 7 % (24-48) Monocytes (%) (Auto) 7 % (0-9) Eosinophils (%) (Auto) 0 % (0-3) Basophils (%) (Auto) 0 % (0-3) Neutrophils # (Auto) 11.8 x10^3uL (1.8-7.7) Lymphocytes # (Auto) 1.0 x10^3/uL (1.0-4.8) Monocytes # (Auto) 0.9 x10^3/uL (0.0-1.1) Eosinophils # (Auto) 0.0 x10^3/uL (0.0-0.7) Basophils # (Auto) 0.0 x10^3/uL (0.0-0.2) Laboratory Tests Test 01/04/19 11:45 01/04/19 12:00 01/04/19 13:33 01/04/19 13:35 White Blood Count 17.3 x10^3/uL (4.0-11.0) Red Blood Count 4.43 x10^6/uL (3.50-5.40) Hemoglobin 12.9 g/dL (12.0-15.5) Hematocrit 41.5 % (36.0-47.0) Mean Corpuscular Volume 94 fL (79-100) Mean Corpuscular Hemoglobin 29 pg (25-35) Mean Corpuscular Hemoglobin Concent 31 g/dL (31-37) Red Cell Distribution Width 15.4 % (11.5-14.5) Platelet Count 246 x10^3/uL (140-400) Neutrophils (%) (Auto) 35 % (31-73) Lymphocytes (%) (Auto) 33 % (24-48) Monocytes (%) (Auto) 5 % (0-9) Eosinophils (%) (Auto) 26 % (0-3) Basophils (%) (Auto) 1 % (0-3) Neutrophils # (Auto) 6.1 x10^3uL (1.8-7.7) Lymphocytes # (Auto) 5.8 x10^3/uL (1.0-4.8) Monocytes # (Auto) 0.9 x10^3/uL (0.0-1.1) Eosinophils # (Auto) 4.5 x10^3/uL (0.0-0.7) Basophils # (Auto) 0.1 x10^3/uL (0.0-0.2) Segmented Neutrophils % 34 % (35-66) Lymphocytes % 39 % (24-48) Monocytes % 2 % (0-10) Eosinophils % 25 % (0-5) Platelet Estimate Adequate (ADEQUATE) Poikilocytosis Slight Anisocytosis Slight [place] Cells Few Acanthocytes Occ Schistocytes Occ Sodium Level 138 mmol/L (136-145) Potassium Level 5.0 mmol/L (3.5-5.1) Chloride Level 101 mmol/L (98-107) Carbon Dioxide Level 30 mmol/L (21-32) Anion Gap 7 (6-14) Blood Urea Nitrogen 10 mg/dL (7-20) Creatinine 1.0 mg/dL (0.6-1.0) Estimated GFR (Cockcroft-Gault) 65.6 BUN/Creatinine Ratio 10 (6-20) Glucose Level 178 mg/dL (70-99) Lactic Acid Level 2.8 mmol/L (0.4-2.0) Calcium Level 9.7 mg/dL (8.5-10.1) Total Bilirubin 0.3 mg/dL (0.2-1.0) Aspartate Amino Transf (AST/SGOT) 25 U/L (15-37) Alanine Aminotransferase (ALT/SGPT) 14 U/L (14-59) Alkaline Phosphatase 148 U/L (46-116) Creatine Kinase 89 U/L (26-192) Troponin I Quantitative 0.020 ng/mL (0.000-0.055) UG-Tzu-T-Type Natriuretic Peptide 2832 pg/mL (0-124) Total Protein 7.6 g/dL (6.4-8.2) Albumin 3.3 g/dL (3.4-5.0) Albumin/Globulin Ratio 0.8 (1.0-1.7) Ethyl Alcohol Level < 10 mg/dL (0-10) Urine Collection Type U cath Urine Color Yellow Urine Clarity Clear Urine pH 6.0 Urine Specific [place] 1.015 Urine Protein Negative mg/dL (NEG-TRACE) Urine Glucose (UA) Negative mg/dL (NEG) Urine Ketones (Stick) Negative mg/dL (NEG) Urine Blood Negative (NEG) Urine Nitrite Negative (NEG) Urine Bilirubin Negative (NEG) Urine Urobilinogen Dipstick 0.2 mg/dL (0.2 mg/dL) Urine Leukocyte Esterase Negative (NEG) Urine RBC 0 /HPF (0-2) Urine WBC 0 /HPF (0-4) Urine Squamous Epithelial Cells Few /LPF Urine Amorphous Sediment Present /HPF Urine Bacteria 0 /HPF (0-FEW) Urine Hyaline Casts Few /HPF Urine Mucus Slight /LPF Urine Opiates Screen Pos (NEG) Urine Methadone Screen Neg (NEG) Urine Barbiturates Neg (NEG) Urine Phencyclidine Screen Neg (NEG) Urine Amphetamine/Methamphetamine Neg (NEG) Urine Benzodiazepines Screen Neg (NEG) Urine Cocaine Screen Neg (NEG) Urine Cannabinoids Screen Neg (NEG) Urine Ethyl Alcohol Neg (NEG) Influenza Type A Antigen Negative (NEGATIVE) Influenza Type B Antigen Negative (NEGATIVE) O2 Saturation 90 % (92-99) Arterial Blood pH 7.36 (7.35-7.45) Arterial Blood pCO2 at Patient Temp 51 mmHg (35-46) Arterial Blood pO2 at Patient Temp 61 mmHg (65-108) Arterial Blood HCO3 28 mmol/L (21-28) Arterial Blood Base Excess 2 mmol/L (-3-3) Oxyhemoglobin 89.6 % Methemoglobin 0.4 % (0.0-1.9) Carbon Monoxide, Quantitative 0.3 % (0.0-1.9) FiO2 40 Test 01/04/19 15:30 01/04/19 19:00 01/04/19 19:30 01/05/19 03:25 Lactic Acid Level 2.8 mmol/L (0.4-2.0) 1.8 mmol/L (0.4-2.0) Troponin I Quantitative 0.187 ng/mL (0.000-0.055) 0.260 ng/mL (0.000-0.055) Urine Collection Type Unknown Urine Color [place] Urine Clarity Turbid Urine pH 6.0 Urine Specific [place] 1.020 Urine Protein 30 mg/dL (NEG-TRACE) Urine Glucose (UA) Negative mg/dL (NEG) Urine Ketones (Stick) 15 mg/dL (NEG) Urine Blood Large (NEG) Urine Nitrite Negative (NEG) Urine Bilirubin Small (NEG) Urine Urobilinogen Dipstick 0.2 mg/dL (0.2 mg/dL) Urine Leukocyte Esterase Small (NEG) Urine RBC 6-10 /HPF (0-2) Urine WBC Occ /HPF (0-4) Urine Squamous Epithelial Cells Few /LPF Urine Amorphous Sediment Present /HPF Urine Bacteria 0 /HPF (0-FEW) Prothrombin Time 14.7 SEC (11.7-14.0) Prothromb Time International Ratio 1.2 (0.8-1.1) Fibrinogen 418 mg/dL (200-440) D-Dimer (Jenny) 3.99 ug/mlFEU (0.00-0.50) Procalcitonin 1.11 ng/mL (0.00-0.10) White Blood Count 13.7 x10^3/uL (4.0-11.0) Red Blood Count 4.06 x10^6/uL (3.50-5.40) Hemoglobin 11.7 g/dL (12.0-15.5) Hematocrit 36.9 % (36.0-47.0) Mean Corpuscular Volume 91 fL (79-100) Mean Corpuscular Hemoglobin 29 pg (25-35) Mean Corpuscular Hemoglobin Concent 32 g/dL (31-37) Red Cell Distribution Width 14.9 % (11.5-14.5) Platelet Count 213 x10^3/uL (140-400) Neutrophils (%) (Auto) 86 % (31-73) Lymphocytes (%) (Auto) 7 % (24-48) Monocytes (%) (Auto) 7 % (0-9) Eosinophils (%) (Auto) 0 % (0-3) Basophils (%) (Auto) 0 % (0-3) Neutrophils # (Auto) 11.8 x10^3uL (1.8-7.7) Lymphocytes # (Auto) 1.0 x10^3/uL (1.0-4.8) Monocytes # (Auto) 0.9 x10^3/uL (0.0-1.1) Eosinophils # (Auto) 0.0 x10^3/uL (0.0-0.7) Basophils # (Auto) 0.0 x10^3/uL (0.0-0.2) Medications Active Scripts Medications Dose Route/Sig Max Daily Dose Days Date Category Clopidogrel (Clopidogrel Bisulfate) 75 Mg Tablet 75 Mg PO [id number] 30 12/01/18 Rx Alprazolam 0.25 Mg Tablet 1 Tab PO TID 11/25/18 Reported Flovent 110MCG Hfa (Fluticasone Propionate) 12 Gm Aer.w.adap 2 Puff IH BID 11/25/18 Reported Spironolactone 25 Mg Tablet 1 Tab PO DAILY 11/25/18 Reported Protonix (Pantoprazole Sodium) 20 Mg Tablet.dr 40 Mg PO DAILY 11/25/18 Reported Oxycodone Hcl 5 Mg/5 Ml Solution 5 Mg PO PRN Q4HRS PRN 11/25/18 Reported Lisinopril 2.5 Mg Tablet 2.5 Mg PO DAILY 11/25/18 Reported Guaifenesin 600 Mg Tablet.er 600 Mg PO BID 11/25/18 Reported Sertraline Hcl 50 Mg Tablet 50 Mg PO DAILY 11/25/18 Reported Lasix (Furosemide) 20 Mg Tablet 1 Tab PO DAILY 10/04/18 Rx Proair Hfa Inhaler (Albuterol Sulfate) 8.5 Gm Hfa.aer.ad 1 Puff INH PRN Q6HRS PRN 14 10/04/18 Rx Tramadol Hcl 50 Mg Tablet 1 Tab PO PRN Q6HRS PRN 08/13/18 Reported Duoneb 0.5-3(2.5) Mg/3 Ml (Albuterol/Ipratropium) 3 Ml Ampul.neb 3 Ml NEB QID 04/17/18 Reported Zofran (Ondansetron Hcl) 4 Mg Tablet 1 Tab PO Q8HRS PRN 05/19/16 Rx Atorvastatin Calcium 40 Mg Tablet 40 Mg PO HS 09/24/15 Reported Carvedilol (Carvedilol) 6.25 Mg Tablet 6.25 Mg PO BIDWMEALS 09/24/15 Reported Vitamin D (Cholecalciferol (Vitamin D3)) 2,000 Unit Capsule 2,000 Unit PO BIDAFTMEAL 01/07/15 Reported Aspirin Ec (Aspirin) 325 Mg Tablet.dr 325 Mg PO DAILY 01/07/15 Reported Impression . IMPRESSION: 1. Acute hypoxemic hypercapnic respiratory failure, multifactorial. ACUTE/ CHRONIC ASPIRATION 2. Overdose on OxyContin. 3. Chronic interstitial lung disease. 4. Chronic eating disorder, status post PEG tube placement. 5. Depression. 6. Chronic obstructive pulmonary disease. 7. Other comorbidities. 8. Severe cardiomyopathy, ejection fraction 10-15%. 9. Coronary artery disease, status post previous stenting. 10. Acute on chronic systolic, diastolic heart failure. Plan . CHRONIC ASPIRATION WILL BRONCH IN AM POSSIBLE EXTUBATE AFTER BRONCH WILL CONTINUE THE SAME D/W FRIEND AT BEDSIDE REGGIE CONTRERAS MD Jan 05, 2019 09:17
[2019-01-05 09:25] LABS: CHOLESTEROL/HDL RATIO 1.7
[2019-01-05 09:44] LABS: BASE EXCESS ABG -1 mmol/L (-3-3); HCO3 ABG 23 mmol/L (21-28); PCO2 ABG 35 mmHg (35-46); PO2 ABG 133 mmHg (65-108); SAT O2 ABG 98 % (92-99)
--- NOTE | 2019-01-05 09:45 | PDOC2 ---
CARDIAC CONSULT DATE OF CONSULT Date of Consult DATE: 01/05/19 TIME: 09:28 REASON FOR CONSULT Reason for Consult: Elevated troponin REFERRING PHYSICIAN Referring Physician: Dr. Ames SOURCE Source: Chart review HISTORY OF PRESENT ILLNESS HISTORY OF PRESENT ILLNESS This is a 73 yo female, with a history of severe cardiomyopathy, CAD, severe MR , HTN, and HLP, who presented secondary to respiratory distress. Patient presently intubated/sedated and unable to provide any information. Per chart review, family reports that she has been short of breath of the last day or so. Progressively worsened. EMS was called for respiratory distress. Patient takes OxyContin for chronic pain. EMS found empty bottle of pills near patient. They administered Narcan without any significant improvement in respiratory status. Patient was intubated upon arrival. 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 Pulmonary: COPD CENTRAL NERVOUS SYSTEM: Other GI: GERD Heme/Onc: No pertinent hx Hepatobiliary: No pertinent hx Psych: No pertinent hx Musculoskeletal: Other Rheumatologic: No pertinent hx Infectious disease: No pertinent hx Renal/: UTI Endocrine: No pertinent hx PAST SURGICAL HISTORY Past Surgical History Appendectomy, Hysterectomy, Other (coronary stents), PEG Past Surgical History: Pacemaker (MEDIA OPERATOR-D, epicardial lead placement by CTS at ), Other FAMILY HISTORY Family History: Coronary Artery Disease SOCIAL HISTORY Social History Smoke: No ALCOHOL: none Drugs: None Lives: with Family CURRENT MEDICATIONS CURRENT MEDICATIONS Current Medications Medications (Trade) Dose Ordered Sig/Lisandra Route PRN Reason Start Time Stop Time Status Last Admin Dose Admin Etomidate (Amidate) 10 mg 1X ONCE IV 01/04/19 12:00 01/04/19 12:01 DC 01/04/19 11:39 Succinylcholine Chloride (Anectine) 50 mg 1X ONCE IV 01/04/19 12:00 01/04/19 12:01 DC 01/04/19 11:39 Fentanyl Citrate (Fentanyl 2ml Vial) 50 mcg PRN Q1HR PRN IV SEE COMMENTS 01/04/19 11:45 01/05/19 01:43 Chlorhexidine Gluconate (Peridex) 15 ml BID MM 01/04/19 21:00 01/04/19 21:10 Famotidine (Pepcid Vial) 20 mg BID IVP 01/04/19 21:00 01/05/19 09:04 Midazolam HCl 100 ml @ 0 mls/hr CONT PRN IV SEE PROTOCOL 01/04/19 12:00 01/05/19 06:51 Albuterol/ Ipratropium (Duoneb) 6 ml 1X ONCE NEB 01/04/19 12:30 01/04/19 12:31 DC 01/04/19 13:12 Methylprednisolone Sodium Succinate (SOLU-Medrol 125MG VIAL) 125 mg 1X ONCE IV 01/04/19 12:30 01/04/19 12:31 DC 01/04/19 12:44 Sodium Chloride 1,000 ml @ 125 mls/hr Q8H IV 01/04/19 14:00 01/05/19 13:59 01/05/19 06:21 Albuterol/ Ipratropium (Duoneb) 3 ml RTQID NEB 01/04/19 16:00 01/05/19 15:59 01/05/19 08:03 Midazolam HCl (Versed) 5 mg 1X ONCE IV 01/04/19 13:30 01/04/19 13:31 DC 01/04/19 11:57 Midazolam HCl (Versed) 5 mg 1X ONCE IV 01/04/19 15:15 01/04/19 15:16 DC 01/04/19 14:00 Levofloxacin/ Dextrose 100 ml @ 100 mls/hr 1X ONCE IV 01/04/19 18:00 01/04/19 18:59 DC 01/04/19 18:34 Sodium Chloride 1,000 ml @ 1,710 mls/hr Q36M IV 01/04/19 18:30 01/04/19 19:30 DC 01/04/19 20:39 Vancomycin HCl (Vanco Per Pharmacy) 1 each PRN DAILY PRN MC SEE COMMENTS 01/04/19 18:00 01/05/19 07:48 DC 01/04/19 20:07 Vancomycin HCl 1 gm/Sodium Chloride 250 ml @ 250 mls/hr 1X ONCE IV 01/04/19 19:00 01/04/19 19:59 DC 01/04/19 19:42 Furosemide (Lasix) 20 mg 1X ONCE IVP 01/05/19 02:45 01/05/19 02:46 DC 01/05/19 03:19 ALLERGIES ALLERGIES: Coded Allergies: Penicillins (Verified Allergy, Intermediate, hives, 08/16/18) Sulfa (Sulfonamide Antibiotics) (Verified Allergy, Intermediate, hives, ) morphine (Verified Allergy, Mild, Hives, 11/25/18) ROS Review of System unobtainable PHYSICAL EXAM General: Other (sedated) Lungs: Clear to auscultation, Other (intubated) Heart: Other (100% v-paced with underlying SR, distant heart tones) Abdomen: Soft, No tenderness Extremities: No edema, Normal pulses Neuro: Other (unable to assess) Psych/Mental Status: Other (edated) MUSCULOSKELETAL: No deformity, Osteoarthritic changes both hands VITALS VITALS Vital Signs Date Time Temp Pulse Resp B/P (MAP) Pulse Ox O2 Delivery O2 Flow Rate FiO2 01/05/19 08:00 Mechanical Ventilator 01/05/19 08:00 102 18 154/93 (113) 100 01/05/19 07:00 98.0 98.0 01/04/19 11:48 15.0 LABS Lab: Laboratory Tests Test 01/04/19 11:45 01/04/19 12:00 01/04/19 13:33 01/04/19 13:35 White Blood Count 17.3 x10^3/uL (4.0-11.0) Red Blood Count 4.43 x10^6/uL (3.50-5.40) Hemoglobin 12.9 g/dL (12.0-15.5) Hematocrit 41.5 % (36.0-47.0) Mean Corpuscular Volume 94 fL (79-100) Mean Corpuscular Hemoglobin 29 pg (25-35) Mean Corpuscular Hemoglobin Concent 31 g/dL (31-37) Red Cell Distribution Width 15.4 % (11.5-14.5) Platelet Count 246 x10^3/uL (140-400) Neutrophils (%) (Auto) 35 % (31-73) Lymphocytes (%) (Auto) 33 % (24-48) Monocytes (%) (Auto) 5 % (0-9) Eosinophils (%) (Auto) 26 % (0-3) Basophils (%) (Auto) 1 % (0-3) Neutrophils # (Auto) 6.1 x10^3uL (1.8-7.7) Lymphocytes # (Auto) 5.8 x10^3/uL (1.0-4.8) Monocytes # (Auto) 0.9 x10^3/uL (0.0-1.1) Eosinophils # (Auto) 4.5 x10^3/uL (0.0-0.7) Basophils # (Auto) 0.1 x10^3/uL (0.0-0.2) Segmented Neutrophils % 34 % (35-66) Lymphocytes % 39 % (24-48) Monocytes % 2 % (0-10) Eosinophils % 25 % (0-5) Platelet Estimate Adequate (ADEQUATE) Poikilocytosis Slight Anisocytosis Slight [place] Cells Few Acanthocytes Occ Schistocytes Occ Sodium Level 138 mmol/L (136-145) Potassium Level 5.0 mmol/L (3.5-5.1) Chloride Level 101 mmol/L (98-107) Carbon Dioxide Level 30 mmol/L (21-32) Anion Gap 7 (6-14) Blood Urea Nitrogen 10 mg/dL (7-20) Creatinine 1.0 mg/dL (0.6-1.0) Estimated GFR (Cockcroft-Gault) 65.6 BUN/Creatinine Ratio 10 (6-20) Glucose Level 178 mg/dL (70-99) Lactic Acid Level 2.8 mmol/L (0.4-2.0) Calcium Level 9.7 mg/dL (8.5-10.1) Total Bilirubin 0.3 mg/dL (0.2-1.0) Aspartate Amino Transf (AST/SGOT) 25 U/L (15-37) Alanine Aminotransferase (ALT/SGPT) 14 U/L (14-59) Alkaline Phosphatase 148 U/L (46-116) Creatine Kinase 89 U/L (26-192) Troponin I Quantitative 0.020 ng/mL (0.000-0.055) BT-Kko-W-Type Natriuretic Peptide 2832 pg/mL (0-124) Total Protein 7.6 g/dL (6.4-8.2) Albumin 3.3 g/dL (3.4-5.0) Albumin/Globulin Ratio 0.8 (1.0-1.7) Ethyl Alcohol Level < 10 mg/dL (0-10) Urine Collection Type U cath Urine Color Yellow Urine Clarity Clear Urine pH 6.0 Urine Specific [place] 1.015 Urine Protein Negative mg/dL (NEG-TRACE) Urine Glucose (UA) Negative mg/dL (NEG) Urine Ketones (Stick) Negative mg/dL (NEG) Urine Blood Negative (NEG) Urine Nitrite Negative (NEG) Urine Bilirubin Negative (NEG) Urine Urobilinogen Dipstick 0.2 mg/dL (0.2 mg/dL) Urine Leukocyte Esterase Negative (NEG) Urine RBC 0 /HPF (0-2) Urine WBC 0 /HPF (0-4) Urine Squamous Epithelial Cells Few /LPF Urine Amorphous Sediment Present /HPF Urine Bacteria 0 /HPF (0-FEW) Urine Hyaline Casts Few /HPF Urine Mucus Slight /LPF Urine Opiates Screen Pos (NEG) Urine Methadone Screen Neg (NEG) Urine Barbiturates Neg (NEG) Urine Phencyclidine Screen Neg (NEG) Urine Amphetamine/Methamphetamine Neg (NEG) Urine Benzodiazepines Screen Neg (NEG) Urine Cocaine Screen Neg (NEG) Urine Cannabinoids Screen Neg (NEG) Urine Ethyl Alcohol Neg (NEG) Influenza Type A Antigen Negative (NEGATIVE) Influenza Type B Antigen Negative (NEGATIVE) O2 Saturation 90 % (92-99) Arterial Blood pH 7.36 (7.35-7.45) Arterial Blood pCO2 at Patient Temp 51 mmHg (35-46) Arterial Blood pO2 at Patient Temp 61 mmHg (65-108) Arterial Blood HCO3 28 mmol/L (21-28) Arterial Blood Base Excess 2 mmol/L (-3-3) Oxyhemoglobin 89.6 % Methemoglobin 0.4 % (0.0-1.9) Carbon Monoxide, Quantitative 0.3 % (0.0-1.9) FiO2 40 Test 01/04/19 15:30 01/04/19 19:00 01/04/19 19:30 01/05/19 03:25 Lactic Acid Level 2.8 mmol/L (0.4-2.0) 1.8 mmol/L (0.4-2.0) Troponin I Quantitative 0.187 ng/mL (0.000-0.055) 0.260 ng/mL (0.000-0.055) Urine Collection Type Unknown Urine Color [place] Urine Clarity Turbid Urine pH 6.0 Urine Specific [place] 1.020 Urine Protein 30 mg/dL (NEG-TRACE) Urine Glucose (UA) Negative mg/dL (NEG) Urine Ketones (Stick) 15 mg/dL (NEG) Urine Blood Large (NEG) Urine Nitrite Negative (NEG) Urine Bilirubin Small (NEG) Urine Urobilinogen Dipstick 0.2 mg/dL (0.2 mg/dL) Urine Leukocyte Esterase Small (NEG) Urine RBC 6-10 /HPF (0-2) Urine WBC Occ /HPF (0-4) Urine Squamous Epithelial Cells Few /LPF Urine Amorphous Sediment Present /HPF Urine Bacteria 0 /HPF (0-FEW) Prothrombin Time 14.7 SEC (11.7-14.0) Prothromb Time International Ratio 1.2 (0.8-1.1) Fibrinogen 418 mg/dL (200-440) D-Dimer (Jenny) 3.99 ug/mlFEU (0.00-0.50) Procalcitonin 1.11 ng/mL (0.00-0.10) White Blood Count 13.7 x10^3/uL (4.0-11.0) Red Blood Count 4.06 x10^6/uL (3.50-5.40) Hemoglobin 11.7 g/dL (12.0-15.5) Hematocrit 36.9 % (36.0-47.0) Mean Corpuscular Volume 91 fL (79-100) Mean Corpuscular Hemoglobin 29 pg (25-35) Mean Corpuscular Hemoglobin Concent 32 g/dL (31-37) Red Cell Distribution Width 14.9 % (11.5-14.5) Platelet Count 213 x10^3/uL (140-400) Neutrophils (%) (Auto) 86 % (31-73) Lymphocytes (%) (Auto) 7 % (24-48) Monocytes (%) (Auto) 7 % (0-9) Eosinophils (%) (Auto) 0 % (0-3) Basophils (%) (Auto) 0 % (0-3) Neutrophils # (Auto) 11.8 x10^3uL (1.8-7.7) Lymphocytes # (Auto) 1.0 x10^3/uL (1.0-4.8) Monocytes # (Auto) 0.9 x10^3/uL (0.0-1.1) Eosinophils # (Auto) 0.0 x10^3/uL (0.0-0.7) Basophils # (Auto) 0.0 x10^3/uL (0.0-0.2) Triglycerides Level 48 mg/dL (0-150) Cholesterol Level 106 mg/dL (0-200) LDL Cholesterol, Calculated 32 mg/dL (0-100) VLDL Cholesterol, Calculated 10 mg/dL (0-40) Non-HDL Cholesterol Calculated 42 mg/dL (0-129) HDL Cholesterol 64 mg/dL (40-60) Cholesterol/HDL Ratio 1.7 ECHOCARDIOGRAM ECHOCARDIOGRAM <Conclusion> Left ventricle systolic function is severely impaired. The Ejection Fraction is 10-15%. There is severe global hypokinesis of the left ventricle. Doppler and Color-flow revealed severe mitral regurgitation. Doppler and Color Flow revealed mild tricuspid regurgitation. There is mild- moderate pulmonary hypertension. The PA pressure was estimated at 43 mmHg. DATE: 04/18/18 1311 <Conclusion> The Left Ventricle is mildly dilated. The systolic function is severly impaired. The Ejection Fraction is 20-25%. There is global hypokinesis of the left ventricle. There is mild to moderate concentric left ventricular hypertrophy. There is no significant aortic valvular stenosis. Doppler and Color Flow revealed no significant aortic regurgitation. Doppler and Color-flow revealed mild to moderate mitral regurgitation. DATE: 11/25/18 1212 STRESS TEST STRESS TEST Conclusion 1. Regadenoson cardioisotope stress test showed small inferior wall infarct without any ischemia. 2. Moderate global left ventricle systolic dysfunction with ejection fraction calculated at 32%. 3. DATE: 01/08/15 1556 HEART CATH HEART CATH Records obtained from Cardiac catheterization 11/12/18 Conclusion 1. CAD with mild disease of the left coronary system and a focal area of in- stent restenosis of 70% in the RCA 2. 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 Slightly low cardiac output Taken for upgrade of pacemaker to MEDIA OPERATOR-D with unsuccessful in placing the LV lead. Was taken 11/17/18 for epicardial lead placement with CTS ASSESSMENT/PLAN ASSESSMENT/PLAN 1. Acute on chronic respiratory failure secondary, multifactorial 2. Mild acute on chronic systolic CHF; CXR without significant vascular congestion 3. NSTEMI: trop highest 0.26. Cardiac cath 11/12/18 at without intervention as noted above. 4. CAD: s/p PCI/stent to RCA in 2014. 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 No intervention performed. 5. Severe cardiomyopathy: LVEF at 20-25% 6. Leukocytosis, lactic acidosis, fevers. probable aspiration. ? sepsis 7. AECOPD 8. Possibly opioid overdose; on OxyContin for chronic pain 9. AICD in situ; ([employer]). s/p upgrade to MEDIA OPERATOR-D last month with epicardial lead placement by CTS. Recent device interrogation without any acute abnormalities 10. HTN: mildly elevated 11. BENJA 12. Moderate-severe MR: not a surgical candidate 13. Chronic dysphagia; s/p PEG Recommendations Secondary prevention including DAPT with ASA and Plavix Resume optimization therapy including ACEi, BB. May hold or Lasix for now. Supportive care from a CV standpoint Follow pulmonary OSCAR López APRN Jan 05, 2019 09:45
[2019-01-05 09:53] LABS: FIO2 ABG 40
--- NOTE | 2019-01-05 10:29 | PDOC ---
PROGRESS NOTES History of Present Illness History of Present Illness Assessment/Plan Assessment/Plan IMPRESSION ACUTE RESP FAILURE possible oxycontin accidental overdose CAD: s/p PCI/stent to RCA in 2015. 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 No intervention performed. Acute on chronic systolic heart failure. Ejection fraction of 10-15%. . Followed by the heart failure clinic. AE COPD and possible PNA. CONSULT pulmonary. bronch in AM Severe cardiomyopathy: LVEF at 10-15% AICD in situ; HTN: Severe MR: not a surgical candidate Chronic dysphagia; s/p PEG tube for chronic vomiting AICD. Upgraded // at with epicardial lead placement by surgery. MILD ELEVATION OF TROPONIN I The systolic function is severely impaired. The Ejection Fraction is 20-25%. There is global hypokinesis of the left ventricle. There is mild to moderate concentric left ventricular hypertrophy. plan CONT icu monitoring vent support cardiology consult frequent labs dvt prophylaxis ID CONSULT PULM following SEPSIS PROTOCOL 34 min cc time Vitals Vitals Vital Signs Date Time Temp Pulse Resp B/P (MAP) Pulse Ox O2 Delivery O2 Flow Rate FiO2 01/05/19 10:26 100 Ventilator 01/05/19 08:00 102 18 154/93 (113) 01/05/19 07:00 98.0 98.0 01/04/19 11:48 15.0 Physical Exam General: Cooperative, moderate distress Heart: Regular rate Lungs: Clear, Crackles Abdomen: Normal bowel sounds, Soft, No tenderness Extremities: No cyanosis, No edema, No tenderness/swelling Labs LABS LEFT VENTRICLE The Left Ventricle is mildly dilated. There is mild to moderate concentric left ventricular hypertrophy. The systolic function is severly impaired. The Ejection Fraction is 20-25%. There is global hypokinesis of the left ventricle. Diastolic function indeterminate. RIGHT VENTRICLE The right ventricle is normal size. There is normal right ventricular wall thickness. The right ventricular systolic function is normal. There is a device lead in the right ventricle. ATRIA The left atrium size is normal. The right atrium size is normal. The atrial septum is aneurysmal. AORTIC VALVE The aortic valve is normal in structure and function. Doppler and Color Flow revealed no significant aortic regurgitation. There is no significant aortic valvular stenosis. MITRAL VALVE The mitral valve is thickened but opens well. There is no evidence of mitral valve prolapse. There is no mitral valve stenosis. Doppler and Color-flow revealed mild to moderate mitral regurgitation. TRICUSPID VALVE The tricuspid valve is normal in structure and function. Doppler and Color Flow revealed mild tricuspid regurgitation. There is no tricuspid valve stenosis. PULMONIC VALVE The pulmonic valve is not well visualized. Doppler and Color Flow revealed no pulmonic valvular regurgitation. GREAT VESSELS The aortic root is normal in size. The IVC was not visualized. PERICARDIAL EFFUSION There is moderate left pleural effusion measuring 4.1 cm. There is a trace pericardial effusion. Critical Notification Critical Value: No <Conclusion> The Left Ventricle is mildly dilated. The systolic function is severly impaired. The Ejection Fraction is 20-25%. There is global hypokinesis of the left ventricle. There is mild to moderate concentric left ventricular hypertrophy. There is no significant aortic valvular stenosis. Doppler and Color Flow revealed no significant aortic regurgitation. Doppler and Color-flow revealed mild to moderate mitral regurgitation. Doppler and Color Flow revealed mild tricuspid regurgitation. Signed by : Jose Issa MD Electronically Approved : 11/25/2018 12:12:40 Portable chest, 01/05/2019: HISTORY: Respiratory failure Comparison is made to yesterday's study. The ET tube tip lies well above the kriss. An NG tube extends into the proximal stomach. A left-sided transvenous pacing device is unchanged. Epicardial pacing leads overlie the left side of the heart. The left ventricle is enlarged. There are unchanged right apical pleural-parenchymal opacities compatible with scarring versus chronic infiltrate. There are granulomatous calcifications in the right chest. Additional minimal scattered parenchymal opacities are probably scars. No new pulmonary abnormality is seen. There is no evidence of pleural fluid. IMPRESSION: No significant change since yesterday's exam. Electronically signed by: Steven Latif MD (01/05/2019 8:41 AM) [facility] Laboratory Tests Test 01/04/19 11:45 01/04/19 12:00 01/04/19 13:33 01/04/19 13:35 White Blood Count 17.3 x10^3/uL (4.0-11.0) Red Blood Count 4.43 x10^6/uL (3.50-5.40) Hemoglobin 12.9 g/dL (12.0-15.5) Hematocrit 41.5 % (36.0-47.0) Mean Corpuscular Volume 94 fL (79-100) Mean Corpuscular Hemoglobin 29 pg (25-35) Mean Corpuscular Hemoglobin Concent 31 g/dL (31-37) Red Cell Distribution Width 15.4 % (11.5-14.5) Platelet Count 246 x10^3/uL (140-400) Neutrophils (%) (Auto) 35 % (31-73) Lymphocytes (%) (Auto) 33 % (24-48) Monocytes (%) (Auto) 5 % (0-9) Eosinophils (%) (Auto) 26 % (0-3) Basophils (%) (Auto) 1 % (0-3) Neutrophils # (Auto) 6.1 x10^3uL (1.8-7.7) Lymphocytes # (Auto) 5.8 x10^3/uL (1.0-4.8) Monocytes # (Auto) 0.9 x10^3/uL (0.0-1.1) Eosinophils # (Auto) 4.5 x10^3/uL (0.0-0.7) Basophils # (Auto) 0.1 x10^3/uL (0.0-0.2) Segmented Neutrophils % 34 % (35-66) Lymphocytes % 39 % (24-48) Monocytes % 2 % (0-10) Eosinophils % 25 % (0-5) Platelet Estimate Adequate (ADEQUATE) Poikilocytosis Slight Anisocytosis Slight Bernardo Cells Few Acanthocytes Occ Schistocytes Occ Sodium Level 138 mmol/L (136-145) Potassium Level 5.0 mmol/L (3.5-5.1) Chloride Level 101 mmol/L (98-107) Carbon Dioxide Level 30 mmol/L (21-32) Anion Gap 7 (6-14) Blood Urea Nitrogen 10 mg/dL (7-20) Creatinine 1.0 mg/dL (0.6-1.0) Estimated GFR (Cockcroft-Gault) 65.6 BUN/Creatinine Ratio 10 (6-20) Glucose Level 178 mg/dL (70-99) Lactic Acid Level 2.8 mmol/L (0.4-2.0) Calcium Level 9.7 mg/dL (8.5-10.1) Total Bilirubin 0.3 mg/dL (0.2-1.0) Aspartate Amino Transf (AST/SGOT) 25 U/L (15-37) Alanine Aminotransferase (ALT/SGPT) 14 U/L (14-59) Alkaline Phosphatase 148 U/L (46-116) Creatine Kinase 89 U/L (26-192) Troponin I Quantitative 0.020 ng/mL (0.000-0.055) DH-Yqe-C-Type Natriuretic Peptide 2832 pg/mL (0-124) Total Protein 7.6 g/dL (6.4-8.2) Albumin 3.3 g/dL (3.4-5.0) Albumin/Globulin Ratio 0.8 (1.0-1.7) Ethyl Alcohol Level < 10 mg/dL (0-10) Urine Collection Type U cath Urine Color Yellow Urine Clarity Clear Urine pH 6.0 Urine Specific [place] 1.015 Urine Protein Negative mg/dL (NEG-TRACE) Urine Glucose (UA) Negative mg/dL (NEG) Urine Ketones (Stick) Negative mg/dL (NEG) Urine Blood Negative (NEG) Urine Nitrite Negative (NEG) Urine Bilirubin Negative (NEG) Urine Urobilinogen Dipstick 0.2 mg/dL (0.2 mg/dL) Urine Leukocyte Esterase Negative (NEG) Urine RBC 0 /HPF (0-2) Urine WBC 0 /HPF (0-4) Urine Squamous Epithelial Cells Few /LPF Urine Amorphous Sediment Present /HPF Urine Bacteria 0 /HPF (0-FEW) Urine Hyaline Casts Few /HPF Urine Mucus Slight /LPF Urine Opiates Screen Pos (NEG) Urine Methadone Screen Neg (NEG) Urine Barbiturates Neg (NEG) Urine Phencyclidine Screen Neg (NEG) Urine Amphetamine/Methamphetamine Neg (NEG) Urine Benzodiazepines Screen Neg (NEG) Urine Cocaine Screen Neg (NEG) Urine Cannabinoids Screen Neg (NEG) Urine Ethyl Alcohol Neg (NEG) Influenza Type A Antigen Negative (NEGATIVE) Influenza Type B Antigen Negative (NEGATIVE) O2 Saturation 90 % (92-99) Arterial Blood pH 7.36 (7.35-7.45) Arterial Blood pCO2 at Patient Temp 51 mmHg (35-46) Arterial Blood pO2 at Patient Temp 61 mmHg (65-108) Arterial Blood HCO3 28 mmol/L (21-28) Arterial Blood Base Excess 2 mmol/L (-3-3) Oxyhemoglobin 89.6 % Methemoglobin 0.4 % (0.0-1.9) Carbon Monoxide, Quantitative 0.3 % (0.0-1.9) FiO2 40 Test 01/04/19 15:30 01/04/19 19:00 01/04/19 19:30 01/05/19 03:25 Lactic Acid Level 2.8 mmol/L (0.4-2.0) 1.8 mmol/L (0.4-2.0) Troponin I Quantitative 0.187 ng/mL (0.000-0.055) 0.260 ng/mL (0.000-0.055) Urine Collection Type Unknown Urine Color Matie Urine Clarity Turbid Urine pH 6.0 Urine Specific [place] 1.020 Urine Protein 30 mg/dL (NEG-TRACE) Urine Glucose (UA) Negative mg/dL (NEG) Urine Ketones (Stick) 15 mg/dL (NEG) Urine Blood Large (NEG) Urine Nitrite Negative (NEG) Urine Bilirubin Small (NEG) Urine Urobilinogen Dipstick 0.2 mg/dL (0.2 mg/dL) Urine Leukocyte Esterase Small (NEG) Urine RBC 6-10 /HPF (0-2) Urine WBC Occ /HPF (0-4) Urine Squamous Epithelial Cells Few /LPF Urine Amorphous Sediment Present /HPF Urine Bacteria 0 /HPF (0-FEW) Prothrombin Time 14.7 SEC (11.7-14.0) Prothromb Time International Ratio 1.2 (0.8-1.1) Fibrinogen 418 mg/dL (200-440) D-Dimer (Jenny) 3.99 ug/mlFEU (0.00-0.50) Procalcitonin 1.11 ng/mL (0.00-0.10) White Blood Count 13.7 x10^3/uL (4.0-11.0) Red Blood Count 4.06 x10^6/uL (3.50-5.40) Hemoglobin 11.7 g/dL (12.0-15.5) Hematocrit 36.9 % (36.0-47.0) Mean Corpuscular Volume 91 fL (79-100) Mean Corpuscular Hemoglobin 29 pg (25-35) Mean Corpuscular Hemoglobin Concent 32 g/dL (31-37) Red Cell Distribution Width 14.9 % (11.5-14.5) Platelet Count 213 x10^3/uL (140-400) Neutrophils (%) (Auto) 86 % (31-73) Lymphocytes (%) (Auto) 7 % (24-48) Monocytes (%) (Auto) 7 % (0-9) Eosinophils (%) (Auto) 0 % (0-3) Basophils (%) (Auto) 0 % (0-3) Neutrophils # (Auto) 11.8 x10^3uL (1.8-7.7) Lymphocytes # (Auto) 1.0 x10^3/uL (1.0-4.8) Monocytes # (Auto) 0.9 x10^3/uL (0.0-1.1) Eosinophils # (Auto) 0.0 x10^3/uL (0.0-0.7) Basophils # (Auto) 0.0 x10^3/uL (0.0-0.2) Triglycerides Level 48 mg/dL (0-150) Cholesterol Level 106 mg/dL (0-200) LDL Cholesterol, Calculated 32 mg/dL (0-100) VLDL Cholesterol, Calculated 10 mg/dL (0-40) Non-HDL Cholesterol Calculated 42 mg/dL (0-129) HDL Cholesterol 64 mg/dL (40-60) Cholesterol/HDL Ratio 1.7 Test 01/05/19 09:10 O2 Saturation 98 % (92-99) Arterial Blood pH 7.44 (7.35-7.45) Arterial Blood pCO2 at Patient Temp 35 mmHg (35-46) Arterial Blood pO2 at Patient Temp 133 mmHg (65-108) Arterial Blood HCO3 23 mmol/L (21-28) Arterial Blood Base Excess -1 mmol/L (-3-3) FiO2 40 Assessment and Plan Assessmemt and Plan Problems Medical Problems: (1) COPD exacerbation Status: Acute (2) Respiratory failure with hypoxia Status: Acute Past Medical History Past Medical History Past Medical History: CAD, CHF, COPD, Hypertension, [place] Additional Past Medical Histor: pacemaker Past Surgical History: Appendectomy, Hysterectomy, Pacemaker, Other Additional Past Surgical Histo: cardiac stents; defibrilator, PEG TUBE FOR CHRONIC VOMITING Alcohol Use: None Drug Use: None FAMILY HX HTN Cardiovascular: AFIB, CAD, CHF, HTN, Syncope, Hyperlipidemia Pulmonary: COPD CENTRAL NERVOUS SYSTEM: Other GI: No pertinent hx, Other Heme/Onc: No pertinent hx Hepatobiliary: No pertinent hx Psych: No pertinent hx Musculoskeletal: Other Rheumatologic: No pertinent hx Infectious disease: No pertinent hx Renal/: UTI Endocrine: No pertinent hx Past Surgical History Past Surgical History: Pacemaker, Appendectomy, Hysterectomy, Other Family History Family History: Coronary Artery Disease, Hypertension Social History Smoke: <1 pack per day ALCOHOL: none Comment Review of Relevant I have reviewed the following items loren (where applicable) has been applied. Labs Laboratory Tests Test 01/04/19 11:45 01/04/19 12:00 01/04/19 13:33 01/04/19 13:35 White Blood Count 17.3 x10^3/uL (4.0-11.0) Red Blood Count 4.43 x10^6/uL (3.50-5.40) Hemoglobin 12.9 g/dL (12.0-15.5) Hematocrit 41.5 % (36.0-47.0) Mean Corpuscular Volume 94 fL (79-100) Mean Corpuscular Hemoglobin 29 pg (25-35) Mean Corpuscular Hemoglobin Concent 31 g/dL (31-37) Red Cell Distribution Width 15.4 % (11.5-14.5) Platelet Count 246 x10^3/uL (140-400) Neutrophils (%) (Auto) 35 % (31-73) Lymphocytes (%) (Auto) 33 % (24-48) Monocytes (%) (Auto) 5 % (0-9) Eosinophils (%) (Auto) 26 % (0-3) Basophils (%) (Auto) 1 % (0-3) Neutrophils # (Auto) 6.1 x10^3uL (1.8-7.7) Lymphocytes # (Auto) 5.8 x10^3/uL (1.0-4.8) Monocytes # (Auto) 0.9 x10^3/uL (0.0-1.1) Eosinophils # (Auto) 4.5 x10^3/uL (0.0-0.7) Basophils # (Auto) 0.1 x10^3/uL (0.0-0.2) Segmented Neutrophils % 34 % (35-66) Lymphocytes % 39 % (24-48) Monocytes % 2 % (0-10) Eosinophils % 25 % (0-5) Platelet Estimate Adequate (ADEQUATE) Poikilocytosis Slight Anisocytosis Slight [place] Cells Few Acanthocytes Occ Schistocytes Occ Sodium Level 138 mmol/L (136-145) Potassium Level 5.0 mmol/L (3.5-5.1) Chloride Level 101 mmol/L (98-107) Carbon Dioxide Level 30 mmol/L (21-32) Anion Gap 7 (6-14) Blood Urea Nitrogen 10 mg/dL (7-20) Creatinine 1.0 mg/dL (0.6-1.0) Estimated GFR (Cockcroft-Gault) 65.6 BUN/Creatinine Ratio 10 (6-20) Glucose Level 178 mg/dL (70-99) Lactic Acid Level 2.8 mmol/L (0.4-2.0) Calcium Level 9.7 mg/dL (8.5-10.1) Total Bilirubin 0.3 mg/dL (0.2-1.0) Aspartate Amino Transf (AST/SGOT) 25 U/L (15-37) Alanine Aminotransferase (ALT/SGPT) 14 U/L (14-59) Alkaline Phosphatase 148 U/L (46-116) Creatine Kinase 89 U/L (26-192) Troponin I Quantitative 0.020 ng/mL (0.000-0.055) VN-Liv-U-Type Natriuretic Peptide 2832 pg/mL (0-124) Total Protein 7.6 g/dL (6.4-8.2) Albumin 3.3 g/dL (3.4-5.0) Albumin/Globulin Ratio 0.8 (1.0-1.7) Ethyl Alcohol Level < 10 mg/dL (0-10) Urine Collection Type U cath Urine Color Yellow Urine Clarity Clear Urine pH 6.0 Urine Specific [place] 1.015 Urine Protein Negative mg/dL (NEG-TRACE) Urine Glucose (UA) Negative mg/dL (NEG) Urine Ketones (Stick) Negative mg/dL (NEG) Urine Blood Negative (NEG) Urine Nitrite Negative (NEG) Urine Bilirubin Negative (NEG) Urine Urobilinogen Dipstick 0.2 mg/dL (0.2 mg/dL) Urine Leukocyte Esterase Negative (NEG) Urine RBC 0 /HPF (0-2) Urine WBC 0 /HPF (0-4) Urine Squamous Epithelial Cells Few /LPF Urine Amorphous Sediment Present /HPF Urine Bacteria 0 /HPF (0-FEW) Urine Hyaline Casts Few /HPF Urine Mucus Slight /LPF Urine Opiates Screen Pos (NEG) Urine Methadone Screen Neg (NEG) Urine Barbiturates Neg (NEG) Urine Phencyclidine Screen Neg (NEG) Urine Amphetamine/Methamphetamine Neg (NEG) Urine Benzodiazepines Screen Neg (NEG) Urine Cocaine Screen Neg (NEG) Urine Cannabinoids Screen Neg (NEG) Urine Ethyl Alcohol Neg (NEG) Influenza Type A Antigen Negative (NEGATIVE) Influenza Type B Antigen Negative (NEGATIVE) O2 Saturation 90 % (92-99) Arterial Blood pH 7.36 (7.35-7.45) Arterial Blood pCO2 at Patient Temp 51 mmHg (35-46) Arterial Blood pO2 at Patient Temp 61 mmHg (65-108) Arterial Blood HCO3 28 mmol/L (21-28) Arterial Blood Base Excess 2 mmol/L (-3-3) Oxyhemoglobin 89.6 % Methemoglobin 0.4 % (0.0-1.9) Carbon Monoxide, Quantitative 0.3 % (0.0-1.9) FiO2 40 Test 01/04/19 15:30 01/04/19 19:00 01/04/19 19:30 01/05/19 03:25 Lactic Acid Level 2.8 mmol/L (0.4-2.0) 1.8 mmol/L (0.4-2.0) Troponin I Quantitative 0.187 ng/mL (0.000-0.055) 0.260 ng/mL (0.000-0.055) Urine Collection Type Unknown Urine Color Maite Urine Clarity Turbid Urine pH 6.0 Urine Specific [place] 1.020 Urine Protein 30 mg/dL (NEG-TRACE) Urine Glucose (UA) Negative mg/dL (NEG) Urine Ketones (Stick) 15 mg/dL (NEG) Urine Blood Large (NEG) Urine Nitrite Negative (NEG) Urine Bilirubin Small (NEG) Urine Urobilinogen Dipstick 0.2 mg/dL (0.2 mg/dL) Urine Leukocyte Esterase Small (NEG) Urine RBC 6-10 /HPF (0-2) Urine WBC Occ /HPF (0-4) Urine Squamous Epithelial Cells Few /LPF Urine Amorphous Sediment Present /HPF Urine Bacteria 0 /HPF (0-FEW) Prothrombin Time 14.7 SEC (11.7-14.0) Prothromb Time International Ratio 1.2 (0.8-1.1) Fibrinogen 418 mg/dL (200-440) D-Dimer (Jenny) 3.99 ug/mlFEU (0.00-0.50) Procalcitonin 1.11 ng/mL (0.00-0.10) White Blood Count 13.7 x10^3/uL (4.0-11.0) Red Blood Count 4.06 x10^6/uL (3.50-5.40) Hemoglobin 11.7 g/dL (12.0-15.5) Hematocrit 36.9 % (36.0-47.0) Mean Corpuscular Volume 91 fL (79-100) Mean Corpuscular Hemoglobin 29 pg (25-35) Mean Corpuscular Hemoglobin Concent 32 g/dL (31-37) Red Cell Distribution Width 14.9 % (11.5-14.5) Platelet Count 213 x10^3/uL (140-400) Neutrophils (%) (Auto) 86 % (31-73) Lymphocytes (%) (Auto) 7 % (24-48) Monocytes (%) (Auto) 7 % (0-9) Eosinophils (%) (Auto) 0 % (0-3) Basophils (%) (Auto) 0 % (0-3) Neutrophils # (Auto) 11.8 x10^3uL (1.8-7.7) Lymphocytes # (Auto) 1.0 x10^3/uL (1.0-4.8) Monocytes # (Auto) 0.9 x10^3/uL (0.0-1.1) Eosinophils # (Auto) 0.0 x10^3/uL (0.0-0.7) Basophils # (Auto) 0.0 x10^3/uL (0.0-0.2) Triglycerides Level 48 mg/dL (0-150) Cholesterol Level 106 mg/dL (0-200) LDL Cholesterol, Calculated 32 mg/dL (0-100) VLDL Cholesterol, Calculated 10 mg/dL (0-40) Non-HDL Cholesterol Calculated 42 mg/dL (0-129) HDL Cholesterol 64 mg/dL (40-60) Cholesterol/HDL Ratio 1.7 Test 01/05/19 09:10 O2 Saturation 98 % (92-99) Arterial Blood pH 7.44 (7.35-7.45) Arterial Blood pCO2 at Patient Temp 35 mmHg (35-46) Arterial Blood pO2 at Patient Temp 133 mmHg (65-108) Arterial Blood HCO3 23 mmol/L (21-28) Arterial Blood Base Excess -1 mmol/L (-3-3) FiO2 40 Laboratory Tests Test 01/04/19 11:45 01/04/19 12:00 01/04/19 13:33 01/04/19 13:35 White Blood Count 17.3 x10^3/uL (4.0-11.0) Red Blood Count 4.43 x10^6/uL (3.50-5.40) Hemoglobin 12.9 g/dL (12.0-15.5) Hematocrit 41.5 % (36.0-47.0) Mean Corpuscular Volume 94 fL (79-100) Mean Corpuscular Hemoglobin 29 pg (25-35) Mean Corpuscular Hemoglobin Concent 31 g/dL (31-37) Red Cell Distribution Width 15.4 % (11.5-14.5) Platelet Count 246 x10^3/uL (140-400) Neutrophils (%) (Auto) 35 % (31-73) Lymphocytes (%) (Auto) 33 % (24-48) Monocytes (%) (Auto) 5 % (0-9) Eosinophils (%) (Auto) 26 % (0-3) Basophils (%) (Auto) 1 % (0-3) Neutrophils # (Auto) 6.1 x10^3uL (1.8-7.7) Lymphocytes # (Auto) 5.8 x10^3/uL (1.0-4.8) Monocytes # (Auto) 0.9 x10^3/uL (0.0-1.1) Eosinophils # (Auto) 4.5 x10^3/uL (0.0-0.7) Basophils # (Auto) 0.1 x10^3/uL (0.0-0.2) Segmented Neutrophils % 34 % (35-66) Lymphocytes % 39 % (24-48) Monocytes % 2 % (0-10) Eosinophils % 25 % (0-5) Platelet Estimate Adequate (ADEQUATE) Poikilocytosis Slight Anisocytosis Slight [place] Cells Few Acanthocytes Occ Schistocytes Occ Sodium Level 138 mmol/L (136-145) Potassium Level 5.0 mmol/L (3.5-5.1) Chloride Level 101 mmol/L (98-107) Carbon Dioxide Level 30 mmol/L (21-32) Anion Gap 7 (6-14) Blood Urea Nitrogen 10 mg/dL (7-20) Creatinine 1.0 mg/dL (0.6-1.0) Estimated GFR (Cockcroft-Gault) 65.6 BUN/Creatinine Ratio 10 (6-20) Glucose Level 178 mg/dL (70-99) Lactic Acid Level 2.8 mmol/L (0.4-2.0) Calcium Level 9.7 mg/dL (8.5-10.1) Total Bilirubin 0.3 mg/dL (0.2-1.0) Aspartate Amino Transf (AST/SGOT) 25 U/L (15-37) Alanine Aminotransferase (ALT/SGPT) 14 U/L (14-59) Alkaline Phosphatase 148 U/L (46-116) Creatine Kinase 89 U/L (26-192) Troponin I Quantitative 0.020 ng/mL (0.000-0.055) UM-Fnh-V-Type Natriuretic Peptide 2832 pg/mL (0-124) Total Protein 7.6 g/dL (6.4-8.2) Albumin 3.3 g/dL (3.4-5.0) Albumin/Globulin Ratio 0.8 (1.0-1.7) Ethyl Alcohol Level < 10 mg/dL (0-10) Urine Collection Type U cath Urine Color Yellow Urine Clarity Clear Urine pH 6.0 Urine Specific [place] 1.015 Urine Protein Negative mg/dL (NEG-TRACE) Urine Glucose (UA) Negative mg/dL (NEG) Urine Ketones (Stick) Negative mg/dL (NEG) Urine Blood Negative (NEG) Urine Nitrite Negative (NEG) Urine Bilirubin Negative (NEG) Urine Urobilinogen Dipstick 0.2 mg/dL (0.2 mg/dL) Urine Leukocyte Esterase Negative (NEG) Urine RBC 0 /HPF (0-2) Urine WBC 0 /HPF (0-4) Urine Squamous Epithelial Cells Few /LPF Urine Amorphous Sediment Present /HPF Urine Bacteria 0 /HPF (0-FEW) Urine Hyaline Casts Few /HPF Urine Mucus Slight /LPF Urine Opiates Screen Pos (NEG) Urine Methadone Screen Neg (NEG) Urine Barbiturates Neg (NEG) Urine Phencyclidine Screen Neg (NEG) Urine Amphetamine/Methamphetamine Neg (NEG) Urine Benzodiazepines Screen Neg (NEG) Urine Cocaine Screen Neg (NEG) Urine Cannabinoids Screen Neg (NEG) Urine Ethyl Alcohol Neg (NEG) Influenza Type A Antigen Negative (NEGATIVE) Influenza Type B Antigen Negative (NEGATIVE) O2 Saturation 90 % (92-99) Arterial Blood pH 7.36 (7.35-7.45) Arterial Blood pCO2 at Patient Temp 51 mmHg (35-46) Arterial Blood pO2 at Patient Temp 61 mmHg (65-108) Arterial Blood HCO3 28 mmol/L (21-28) Arterial Blood Base Excess 2 mmol/L (-3-3) Oxyhemoglobin 89.6 % Methemoglobin 0.4 % (0.0-1.9) Carbon Monoxide, Quantitative 0.3 % (0.0-1.9) FiO2 40 Test 01/04/19 15:30 01/04/19 19:00 01/04/19 19:30 01/05/19 03:25 Lactic Acid Level 2.8 mmol/L (0.4-2.0) 1.8 mmol/L (0.4-2.0) Troponin I Quantitative 0.187 ng/mL (0.000-0.055) 0.260 ng/mL (0.000-0.055) Urine Collection Type Unknown Urine Color Maite Urine Clarity Turbid Urine pH 6.0 Urine Specific [place] 1.020 Urine Protein 30 mg/dL (NEG-TRACE) Urine Glucose (UA) Negative mg/dL (NEG) Urine Ketones (Stick) 15 mg/dL (NEG) Urine Blood Large (NEG) Urine Nitrite Negative (NEG) Urine Bilirubin Small (NEG) Urine Urobilinogen Dipstick 0.2 mg/dL (0.2 mg/dL) Urine Leukocyte Esterase Small (NEG) Urine RBC 6-10 /HPF (0-2) Urine WBC Occ /HPF (0-4) Urine Squamous Epithelial Cells Few /LPF Urine Amorphous Sediment Present /HPF Urine Bacteria 0 /HPF (0-FEW) Prothrombin Time 14.7 SEC (11.7-14.0) Prothromb Time International Ratio 1.2 (0.8-1.1) Fibrinogen 418 mg/dL (200-440) D-Dimer (Jenny) 3.99 ug/mlFEU (0.00-0.50) Procalcitonin 1.11 ng/mL (0.00-0.10) White Blood Count 13.7 x10^3/uL (4.0-11.0) Red Blood Count 4.06 x10^6/uL (3.50-5.40) Hemoglobin 11.7 g/dL (12.0-15.5) Hematocrit 36.9 % (36.0-47.0) Mean Corpuscular Volume 91 fL (79-100) Mean Corpuscular Hemoglobin 29 pg (25-35) Mean Corpuscular Hemoglobin Concent 32 g/dL (31-37) Red Cell Distribution Width 14.9 % (11.5-14.5) Platelet Count 213 x10^3/uL (140-400) Neutrophils (%) (Auto) 86 % (31-73) Lymphocytes (%) (Auto) 7 % (24-48) Monocytes (%) (Auto) 7 % (0-9) Eosinophils (%) (Auto) 0 % (0-3) Basophils (%) (Auto) 0 % (0-3) Neutrophils # (Auto) 11.8 x10^3uL (1.8-7.7) Lymphocytes # (Auto) 1.0 x10^3/uL (1.0-4.8) Monocytes # (Auto) 0.9 x10^3/uL (0.0-1.1) Eosinophils # (Auto) 0.0 x10^3/uL (0.0-0.7) Basophils # (Auto) 0.0 x10^3/uL (0.0-0.2) Triglycerides Level 48 mg/dL (0-150) Cholesterol Level 106 mg/dL (0-200) LDL Cholesterol, Calculated 32 mg/dL (0-100) VLDL Cholesterol, Calculated 10 mg/dL (0-40) Non-HDL Cholesterol Calculated 42 mg/dL (0-129) HDL Cholesterol 64 mg/dL (40-60) Cholesterol/HDL Ratio 1.7 Test 01/05/19 09:10 O2 Saturation 98 % (92-99) Arterial Blood pH 7.44 (7.35-7.45) Arterial Blood pCO2 at Patient Temp 35 mmHg (35-46) Arterial Blood pO2 at Patient Temp 133 mmHg (65-108) Arterial Blood HCO3 23 mmol/L (21-28) Arterial Blood Base Excess -1 mmol/L (-3-3) FiO2 40 Medications Current Medications Etomidate (Amidate) 10 mg 1X ONCE IV Last administered on 01/04/19 11:39; Start 01/04/19 at 12:00; Stop 01/04/19 at 12:01; Status DC Succinylcholine Chloride (Anectine) 50 mg 1X ONCE IV Last administered on 01/04at 11:39; Start 01/04/19 at 12:00; Stop 01/04/19 at 12:01; Status DC Fentanyl Citrate (Fentanyl 2ml Vial) 25 mcg PRN Q1HR PRN IV SEE COMMENTS; Start 01/04/19 at 11:45 Fentanyl Citrate (Fentanyl 2ml Vial) 50 mcg PRN Q1HR PRN IV SEE COMMENTS Last administered on 01/05/19at 01:43; Start 01/04/19 at 11:45 Chlorhexidine Gluconate (Peridex) 15 ml BID MM Last administered on 01/04/19at 21:10; Start 01/04/19 at 21:00 Famotidine (Pepcid Vial) 20 mg BID IVP Last administered on 01/05/19at 09:04; Start 01/04/19 at 21:00 Morphine Sulfate (Morphine Sulfate) 2 mg PRN Q1HR PRN IV SEE COMMENTS.; Start 01/04/19 at 11:45 Midazolam HCl 100 ml @ 0 mls/hr CONT PRN IV SEE PROTOCOL Last administered on at 06:51; Start 01/04/19 at 12:00 Midazolam HCl (Versed) 5 mg STK-MED ONCE .ROUTE ; Start 01/04/19 at 12:10; Stop 01/04/19 at 12:11; Status DC Albuterol/ Ipratropium (Duoneb) 6 ml 1X ONCE NEB Last administered on at 13:12; Start 01/04/19 at 12:30; Stop 01/04/19 at 12:31; Status DC Methylprednisolone Sodium Succinate (SOLU-Medrol 125MG VIAL) 125 mg 1X ONCE IV Last administered on 01/04/19at 12:44; Start 01/04/19 at 12:30; Stop 01/04/19 at 12:31; Status DC Midazolam HCl (Versed) 5 mg STK-MED ONCE .ROUTE ; Start 01/04/19 at 12:40; Stop 01/04/19 at 12:41; Status DC Sodium Chloride 1,000 ml @ 125 mls/hr Q8H IV Last administered on 01/05/19at 06 :21; Start 01/04/19 at 14:00; Stop 01/05/19 at 13:59 Albuterol/ Ipratropium (Duoneb) 3 ml RTQID NEB Last administered on 01/05/19at 08:03; Start 01/04/19 at 16:00; Stop 01/05/19 at 15:59 Midazolam HCl (Versed) 5 mg 1X ONCE IV Last administered on 01/04/19at 11:57; Start 01/04/19 at 13:30; Stop 01/04/19 at 13:31; Status DC Midazolam HCl (Versed) 5 mg 1X ONCE IV Last administered on 01/04/19at 14:00; Start 01/04/19 at 15:15; Stop 01/04/19 at 15:16; Status DC Levofloxacin/ Dextrose 100 ml @ 100 mls/hr 1X ONCE IV Last administered on at 18:34; Start 01/04/19 at 18:00; Stop 01/04/19 at 18:59; Status DC Sodium Chloride 1,000 ml @ 1,710 mls/hr Q36M IV Last administered on at 20:39; Start 01/04/19 at 18:30; Stop 01/04/19 at 19:30; Status DC Sodium Chloride 500 ml @ 1,000 mls/hr PRN Q30MIN PRN IV SEE COMMENTS; Start at 18:00 Vancomycin HCl (Vanco Per Pharmacy) 1 each PRN DAILY PRN MC SEE COMMENTS Last administered on 01/04/19at 20:07; Start 01/04/19 at 18:00; Stop 01/05/19 at 07:48 ; Status DC Levofloxacin/ Dextrose 50 ml @ 50 mls/hr Q24H IV ; Start 01/05/19 at 18:00; Stop 01/05/19 at 18:00; Status DC Vancomycin HCl 1 gm/Sodium Chloride 250 ml @ 250 mls/hr 1X ONCE IV Last administered on 01/04/19at 19:42; Start 01/04/19 at 19:00; Stop 01/04/19 at 19:59 ; Status DC Vancomycin HCl 750 mg/Sodium Chloride 250 ml @ 250 mls/hr Q24H IV ; Start 01/05 at 20:00; Stop 01/05/19 at 20:00; Status DC Vancomycin HCl (Vancomycin Trough Level) 1 each 1X ONCE MC ; Start 01/06/19 at 19:30; Stop 01/06/19 at 19:30; Status DC Furosemide (Lasix) 20 mg 1X ONCE IVP Last administered on 01/05/19at 03:19; Start 01/05/19 at 02:45; Stop 01/05/19 at 02:46; Status DC Aspirin (Andrea Aspirin) 325 mg DAILYWBKFT PO ; Start 01/05/19 at 11:00 Atorvastatin Calcium (Lipitor) 40 mg HS PO ; Start 01/05/19 at 21:00 Carvedilol (Coreg) 6.25 mg BIDWMEALS PO ; Start 01/05/19 at 11:00 Clopidogrel Bisulfate (Plavix) 75 mg DAILYWBKFT PO ; Start 01/05/19 at 11:00 Lisinopril (Prinivil) 2.5 mg DAILY PO ; Start 01/05/19 at 11:00 Active Scripts Active Clopidogrel (Clopidogrel Bisulfate) 75 Mg Tablet 75 Mg PO DAILYWBKFT 30 Days Lasix (Furosemide) 20 Mg Tablet 1 Tab PO DAILY Proair Hfa Inhaler (Albuterol Sulfate) 8.5 Gm Hfa.aer.ad 1 Puff INH PRN Q6HRS PRN 14 Days Zofran (Ondansetron Hcl) 4 Mg Tablet 1 Tab PO Q8HRS PRN Reported Alprazolam 0.25 Mg Tablet 1 Tab PO TID Flovent 110MCG Hfa (Fluticasone Propionate) 12 Gm Aer.w.adap 2 Puff IH BID Spironolactone 25 Mg Tablet 1 Tab PO DAILY Protonix (Pantoprazole Sodium) 20 Mg Tablet.dr 40 Mg PO DAILY Oxycodone Hcl 5 Mg/5 Ml Solution 5 Mg PO PRN Q4HRS PRN Lisinopril 2.5 Mg Tablet 2.5 Mg PO DAILY Guaifenesin 600 Mg Tablet.er 600 Mg PO BID Sertraline Hcl 50 Mg Tablet 50 Mg PO DAILY Tramadol Hcl 50 Mg Tablet 1 Tab PO PRN Q6HRS PRN Duoneb 0.5-3(2.5) Mg/3 Ml (Albuterol/Ipratropium) 3 Ml Ampul.neb 3 Ml NEB QID Atorvastatin Calcium 40 Mg Tablet 40 Mg PO HS Carvedilol (Carvedilol) 6.25 Mg Tablet 6.25 Mg PO BIDWMEALS Vitamin D (Cholecalciferol (Vitamin D3)) 2,000 Unit Capsule 2,000 Unit PO BIDAFTMEAL Aspirin Ec (Aspirin) 325 Mg Tablet.dr 325 Mg PO DAILY Vitals/I & O Vital Sign - Last 24 Hours 01/04/19 01/04/19 01/04/19 01/04/19 11:34 11:43 11:48 11:55 Temp 97.4 97.4 Pulse 113 128 108 Resp 16 15 17 B/P (MAP) 176/107 (130) 158/97 (117) 136/88 (104) Pulse Ox 100 100 100 100 O2 Delivery Bag Valve Mask Bag Valve Mask Bag Valve Mask Ventilator O2 Flow Rate 15.0 15.0 15.0 01/04/19 01/04/19 01/04/19 01/04/19 12:05 12:18 12:35 12:38 Pulse 96 98 Resp 16 B/P (MAP) 126/83 (97) 134/72 (92) Pulse Ox 97 95 O2 Delivery Ventilator Ventilator 01/04/19 01/04/19 01/04/19 01/04/19 12:48 13:00 13:18 13:28 Pulse 88 84 84 84 Resp 14 16 16 16 B/P (MAP) 99/58 (72) 101/59 (73) 103/63 (76) 110/62 (78) Pulse Ox 93 94 98 100 O2 Delivery Ventilator Ventilator Ventilator Ventilator 01/04/19 01/04/19 01/04/19 01/04/19 13:33 13:43 13:45 13:48 Pulse 84 84 86 Resp 15 16 15 B/P (MAP) 113/69 (84) 103/70 (81) 106/66 (79) Pulse Ox 100 100 100 100 O2 Delivery Ventilator Ventilator Ventilator Ventilator 01/04/19 01/04/19 01/04/19 01/04/19 13:53 14:08 14:23 14:30 Pulse 84 86 88 Resp 16 12 16 B/P (MAP) 103/69 (80) 124/65 (84) 146/75 (98) Pulse Ox 100 100 100 O2 Delivery Ventilator Ventilator Ventilator Mechanical Ventilator 01/04/19 01/04/19 01/04/19 01/04/19 15:00 15:50 16:00 16:00 Temp 98.3 98.3 Pulse 96 103 Resp 18 18 B/P (MAP) 136/71 (92) 110/65 (80) Pulse Ox 100 100 100 O2 Delivery Ventilator Ventilator Mechanical Ventilator Ventilator 01/04/19 01/04/19 01/04/19 01/04/19 17:00 18:00 18:24 19:00 Temp 100.1 100.1 Pulse 104 102 106 Resp 18 18 18 B/P (MAP) 119/70 (86) 123/71 (88) 122/74 (90) Pulse Ox 100 100 100 100 O2 Delivery Ventilator Ventilator Ventilator Ventilator 01/04/19 01/04/19 01/04/19 01/04/19 19:33 20:00 20:00 21:00 Pulse 108 106 Resp 20 20 B/P (MAP) 137/79 (98) 146/85 (105) Pulse Ox 100 100 100 O2 Delivery Ventilator Ventilator Mechanical Ventilator Ventilator 01/04/19 01/04/19 01/04/19 01/04/19 21:15 21:25 22:00 23:30 Pulse 106 Resp 20 18 B/P (MAP) 142/78 (99) Pulse Ox 100 100 100 100 O2 Delivery Ventilator Ventilator Ventilator Ventilator 01/04/19 01/05/19 01/05/19 01/05/19 23:59 00:00 01:00 01:43 Temp 99.8 99.8 Pulse 108 105 Resp 19 20 20 B/P (MAP) 152/90 (110) 161/94 (116) Pulse Ox 100 100 100 O2 Delivery Mechanical Ventilator Ventilator Ventilator Ventilator 01/05/19 01/05/19 01/05/19 01/05/19 01:45 02:00 02:13 02:55 Pulse 104 Resp 19 20 B/P (MAP) 147/85 (105) Pulse Ox 100 100 100 100 O2 Delivery Ventilator Ventilator Ventilator Ventilator 01/05/19 01/05/19 01/05/19 01/05/19 03:00 04:00 04:00 05:00 Temp 99.5 99.5 Pulse 104 106 104 Resp 20 17 17 B/P (MAP) 150/92 (111) 148/93 (111) 161/94 (116) Pulse Ox 100 100 100 O2 Delivery Ventilator Mechanical Ventilator Ventilator Ventilator 01/05/19 01/05/19 01/05/19 01/05/19 05:33 06:00 07:00 07:53 Temp 98.0 98.0 Pulse 96 102 Resp 18 18 B/P (MAP) 146/67 (93) 162/93 (116) Pulse Ox 100 99 100 100 O2 Delivery Ventilator Ventilator Ventilator Ventilator 01/05/19 01/05/19 01/05/19 08:00 08:00 10:26 Pulse 102 Resp 18 B/P (MAP) 154/93 (113) Pulse Ox 100 100 O2 Delivery Ventilator Mechanical Ventilator Ventilator Intake and Output 01/04/19 01/04/19 01/05/19 15:00 23:00 07:00 Intake Total 0 ml 478.12 ml 1365 ml Output Total 450 ml 145 ml 900 ml Balance -450 ml 333.12 ml 465 ml BAYLEE SIMS MD Jan 05, 2019 10:29
[2019-01-05 10:30] LABS: CALCIUM 8.9 mg/dL (8.5-10.1); CREATININE 1.2 mg/dL (0.6-1.0); GFR 53.1; POTASSIUM 4.8 mmol/L (3.5-5.1)
[2019-01-05] MEDS: ASPIRIN 325 MG TABLET PO SCH (10:58)
[2019-01-05] MEDS: PIPERACILLIN/TAZOBACTAM 3.375 GM in IV NORMAL SALINE 50ML 50 ML IV SCH ×3 (10:58→23:58)
[2019-01-05] MEDS: CHLORHEXIDINE 0.12% 15 ML MOUTHWASH. MM SCH ×2 (10:58→21:12)
[2019-01-05] MEDS: CARVEDILOL 6.25 MG TABLET. PO SCH ×2 (11:00→16:32)
[2019-01-05] MEDS: CLOPIDOGREL BISULFATE 75 MG TABLET PO SCH (11:00)
[2019-01-05] MEDS: LISINOPRIL 5 MG TABLET. PO SCH (11:00)
--- NOTE | 2019-01-05 11:14 | NUR ---
SS following for discharge planning. SS reviewed pt chart. Pt is from home with spouse and is currently on the vent. Pt has had previous home healthcare services in the past with [facility], phone [phone]; fax [phone]. SS will continue to follow for discharge planning.
--- NOTE | 2019-01-05 15:45 | NUR ---
OG dc'd; PEG in place and working without problem.
--- NOTE | 2019-01-05 17:46 | NUR ---
Patient turned every 2 hours to prevent skin breakdown. Coccyx intact without signs of breakdown. Vaginal blood smear when cleaning patient's bianca-area.
--- NOTE | 2019-01-05 19:17 | CONS ---
DATE OF CONSULTATION: 01/05/2019 REFERRING PHYSICIAN: Dr. Ames. REASON FOR CONSULTATION: Possible pneumonia. HISTORY OF PRESENT ILLNESS: A 73-year-old female, with recent hospitalization, presented to the ER when she was found to have more shortness of breath prior to admission. The patient has been on OxyContin for chronic pain. She presented to the ER with an empty pill bottle at home. EMS tried Narcan en route, but that did not improve her respiratory status. In the ER, she was intubated and admitted to ICU. Influenza screen was negative. White count was elevated at 17,000. Chest x-ray showed chronic interstitial lung markings. No new consolidation or infiltrate. The patient had a low grade fever of around 100 degrees. The patient was started on empiric IV vancomycin and Levaquin. ID consult has been requested for antibiotic management. The patient is currently intubated. She has NG tube placed. No major concerns overnight per RN at bedside. PAST MEDICAL HISTORY: Chronic dysphagia, status post PEG tube placement, coronary artery disease, severe cardiomyopathy with ejection fraction 10-15%, chronic heart failure, COPD on O2 at home, hypertension, AICD placement, history of MR, not a surgical candidate. History of atrial fibrillation, history of coronary artery disease, status post stenting, status post hysterectomy. PAST SURGICAL HISTORY: Pacemaker, appendectomy, hysterectomy. ALLERGIES: PENICILLIN, BUT HAS TOLERATED AMOXICILLIN PER CHART REVIEW, SULFA, MORPHINE. REVIEW OF SYSTEMS: Unable to obtain as the patient is intubated. CURRENT MEDICATIONS: IV vancomycin and Levaquin. PHYSICAL EXAMINATION: VITAL SIGNS: Temperature 99.5, T-max 100.1, pulse 96, respiratory rate 18, blood pressure 146/67, oxygen saturation 99% on ventilator, FiO2 of 40%. GENERAL: Intubated, appears comfortable, cachectic, thin lady. HEENT: Anicteric. ETT and OGT in place. NECK: Supple. LUNGS: Decreased breath sounds at bases, otherwise clear. HEART: S1, S2. ABDOMEN: Soft, nontender, nondistended. PEG tube in place. EXTREMITIES: No edema, no cyanosis. DERMATOLOGIC: Warm, dry. No generalized rash. LINES: PIV site looks okay. LABORATORY DATA: WBC 13.7, was 17.3; hemoglobin 11.7, was 12.9 and platelets 213. Sodium 138, potassium 5.0, chloride 101, bicarb 30, lactate 2.8, glucose 178. LFTs, alkaline phosphatase 148, otherwise within normal limits. BNP 2832. Troponin 0.020, this morning was 0.260. Procalcitonin 1.11. Lactate is down to 1.8. Influenza screen negative. UA shows large blood, occasional wbc's, leukocyte esterase small. IMAGING: Chest x-ray, endotracheal tube is in place, endogastric tube is in place. Interstitial markings are stable. No new consolidating infiltrate. IMPRESSION: 1. Fever. 2. Leukocytosis. 3. History of PENICILLIN allergy, but per chart review, has tolerated amoxicillin, SULFA causes swelling. 4. History of chronic respiratory failure, on home O2. 5. Encephalopathy, etiology unclear, likely from OxyContin, though did not respond to Narcan in the ER. 6. Bilateral pulmonary infiltrates with chronic interstitial lung changes. 7. History of multiple hospitalizations. 8. History of severe cardiomyopathy, ejection fraction 10-15%. 9. Coronary artery disease/congestive heart failure/stent/automatic implantable cardioverter defibrillator. 10. Depression. 11. Severe mitral regurgitation, not a surgical candidate per [facility]. 12. Lactic acidosis. RECOMMENDATIONS: 1. Discontinue IV vancomycin and Levaquin. 2. Start the patient on empiric Zosyn for now, will deescalate soon. The patient has tolerated amoxicillin per chart review in the past. Follow up cultures and lab in a.m. Continue supportive care. Discussed with RN. Thank you, Dr. Ames, for consulting Infectious Disease to participate in this patient's care. If you have any questions, do not hesitate to contact me. AURELIA TERRY MD DR: BRITNEY/murali JOB#: [id number] / [id number]
[2019-01-05] MEDS ORDERED: VANCOMYCIN 750 MG in IV NORMAL SALINE 250ML 250 ML IV SCH (20:00)
[2019-01-05] MEDS ORDERED: CHLORHEXIDINE 0.12% 15 ML MOUTHWASH. MM SCH (21:00)
[2019-01-05] MEDS: ATORVASTATIN CALCIUM 40 MG TABLET. PO SCH (21:12)
[2019-01-05] MEDS ORDERED: IV NORMAL SALINE 500ML BAG 500 ML IV ONE (22:00)
[2019-01-06] VITALS (25 sets, daily range): BP systolic 84–157; BP diastolic 45–85
[2019-01-06] MEDS: MIDAZOLAM 100mg/100ml NS BAG 100 ML IV PRN (04:04)
[2019-01-06] MEDS: IV NORMAL SALINE 1000ML BAG 1,000 ML IV SCH ×3 (05:41→21:31)
[2019-01-06] MEDS: PIPERACILLIN/TAZOBACTAM 3.375 GM in IV NORMAL SALINE 50ML 50 ML IV SCH ×4 (05:41→23:30)
[2019-01-06 05:50] LABS: BASO % 0 % (0-3); EOS # 3.4 x10^3/uL (0.0-0.7); EOS % 22 % (0-3); HEMATOCRIT 33.5 % (36.0-47.0); HEMOGLOBIN 10.7 g/dL (12.0-15.5); LYMPH # 1.1 x10^3/uL (1.0-4.8); LYMPH % 7 % (24-48); MEAN CORPUSCULAR HEMOGLOBIN 29 pg (25-35); MEAN CORPUSCULAR HGB CONC 32 g/dL (31-37); MEAN CORPUSCULAR VOLUME 91 fL (79-100); MONO # 0.7 x10^3/uL (0.0-1.1); MONO % 5 % (0-9); NEUT # 9.8 x10^3uL (1.8-7.7); NEUT % 65 % (31-73); PLATELET COUNT 174 x10^3/uL (140-400); PROTHROMBIN TIME PATIENT 14.8 SEC (11.7-14.0); RED BLOOD COUNT 3.69 x10^6/uL (3.50-5.40); RED CELL DISTRIBUTION WIDTH 15.1 % (11.5-14.5)
[2019-01-06 06:05] LABS: ALBUMIN 2.2 g/dL (3.4-5.0); ALBUMIN/GLOBULIN RATIO 0.7 (1.0-1.7); CALCIUM 8.5 mg/dL (8.5-10.1); CREATININE 1.1 mg/dL (0.6-1.0); GFR 58.7; POTASSIUM 4.1 mmol/L (3.5-5.1); TOTAL BILIRUBIN 0.4 mg/dL (0.2-1.0); TOTAL PROTEIN 5.5 g/dL (6.4-8.2)
[2019-01-06] MEDS: IPRATRPIUM/ALBUTEROL 0.5/2.5MG 3 ML NEBU. NEB SCH ×4 (07:21→20:00)
[2019-01-06 07:26] LABS: BASE EXCESS ABG 0 mmol/L (-3-3); HCO3 ABG 26 mmol/L (21-28); PCO2 ABG 47 mmHg (35-46); PO2 ABG 95 mmHg (65-108); SAT O2 ABG 96 % (92-99)
--- NOTE | 2019-01-06 07:44 | PDOC ---
Infectious Disease Note Subjective: Subjective pt intubated low grade fever awaiting bronch today ROS: ROS unable to obtain Vital Signs: Vital Signs Vital Signs Date Time Temp Pulse Resp B/P (MAP) Pulse Ox O2 Delivery O2 Flow Rate FiO2 01/06/19 07:08 99 Ventilator 01/06/19 06:00 91 19 98/60 (73) 01/06/19 04:00 98.4 98.4 Physical Exam: PHYSICAL EXAM GENERAL: Intubated, appears comfortable, cachectic, thin lady. HEENT: Anicteric. ETT and OGT in place. NECK: Supple. LUNGS: Decreased breath sounds at bases, otherwise clear. HEART: S1, S2. ABDOMEN: Soft, nontender, nondistended. PEG tube in place. EXTREMITIES: No edema, no cyanosis. DERMATOLOGIC: Warm, dry. No generalized rash. LINES: PIV site looks okay. Medications: Inpatient Meds: Current Medications Medications (Trade) Dose Ordered Sig/Lisandra Start Time Stop Time Status Last Admin Dose Admin Albuterol/ Ipratropium (Duoneb) 3 ml RTQID 01/05/19 16:00 01/06/19 07:21 3 ML Aspirin (Andrea Aspirin) 325 mg DAILYWBKFT 01/05/19 11:00 01/05/19 10:58 325 MG Atorvastatin Calcium (Lipitor) 40 mg HS 01/05/19 21:00 01/05/19 21:12 40 MG Carvedilol (Coreg) 6.25 mg BIDWMEALS 01/05/19 11:00 01/05/19 16:32 6.25 MG Chlorhexidine Gluconate (Peridex) 15 ml BID 01/05/19 21:00 UNV Clopidogrel Bisulfate (Plavix) 75 mg DAILYWBKFT 01/05/19 11:00 01/05/19 11:00 75 MG Enoxaparin Sodium (Lovenox 30mg Syringe) 30 mg Q24H 01/06/19 09:00 Enoxaparin Sodium (Lovenox 60mg Syringe) 50 mg DAILY 01/05/19 11:30 01/05/19 14:08 DC 01/05/19 10:58 50 MG Enoxaparin Sodium (Lovenox Per Pharmacy Treatment Dosing) 1 each PRN DAILY PRN 01/05/19 10:45 01/05/19 14:06 DC Etomidate (Amidate) 10 mg 1X ONCE 01/04/19 12:00 01/04/19 12:01 DC 01/04/19 11:39 10 MG Famotidine (Pepcid Vial) 20 mg DAILY 01/06/19 09:00 Fentanyl Citrate 30 ml @ 0 mls/hr CONT PRN 01/05/19 12:15 01/05/19 21:14 2.5 MLS/HR Fentanyl Citrate (Fentanyl 2ml Vial) 50 mcg PRN Q1HR PRN 01/04/19 11:45 01/05/19 01:43 50 MCG Furosemide (Lasix) 20 mg 1X ONCE 01/05/19 02:45 01/05/19 02:46 DC 01/05/19 03:19 20 MG Levofloxacin/ Dextrose 50 ml @ 50 mls/hr Q24H 01/05/19 18:00 01/05/19 18:00 DC Lisinopril (Prinivil) 2.5 mg DAILY 01/05/19 11:00 01/05/19 11:00 2.5 MG Methylprednisolone Sodium Succinate (SOLU-Medrol 125MG VIAL) 125 mg 1X ONCE 01/04/19 12:30 01/04/19 12:31 DC 01/04/19 12:44 125 MG Midazolam HCl (Versed) 5 mg 1X ONCE 01/04/19 15:15 01/04/19 15:16 DC 01/04/19 14:00 5 MG Morphine Sulfate (Morphine Sulfate) 2 mg PRN Q1HR PRN 01/04/19 11:45 Piperacillin Sod/ Tazobactam Sod 3.375 gm/Sodium Chloride 50 ml @ 100 mls/hr Q6HRS 01/05/19 11:00 01/06/19 05:41 100 MLS/HR Sodium Chloride 500 ml @ 500 mls/hr 1X ONCE 01/05/19 22:00 01/05/19 22:59 DC Succinylcholine Chloride (Anectine) 50 mg 1X ONCE 01/04/19 12:00 01/04/19 12:01 DC 01/04/19 11:39 50 MG Vancomycin HCl (Vanco Per Pharmacy) 1 each PRN DAILY PRN 01/04/19 18:00 01/05/19 07:48 DC 01/04/19 20:07 1 EACH Vancomycin HCl (Vancomycin Trough Level) 1 each 1X ONCE 01/06/19 19:30 01/06/19 19:30 DC Vancomycin HCl 750 mg/Sodium Chloride 250 ml @ 250 mls/hr Q24H 01/05/19 20:00 01/05/19 20:00 DC Vancomycin HCl 1 gm/Sodium Chloride 250 ml @ 250 mls/hr 1X ONCE 01/04/19 19:00 01/04/19 19:59 DC 01/04/19 19:42 250 MLS/HR Labs: Lab Laboratory Tests Test 01/05/19 09:10 01/05/19 17:55 01/05/19 23:29 01/06/19 04:40 O2 Saturation 98 % (92-99) Arterial Blood pH 7.44 (7.35-7.45) Arterial Blood pCO2 at Patient Temp 35 mmHg (35-46) Arterial Blood pO2 at Patient Temp 133 mmHg (65-108) Arterial Blood HCO3 23 mmol/L (21-28) Arterial Blood Base Excess -1 mmol/L (-3-3) FiO2 40 Glucose (Fingerstick) 100 mg/dL (70-99) 106 mg/dL (70-99) White Blood Count 15.0 x10^3/uL (4.0-11.0) Red Blood Count 3.69 x10^6/uL (3.50-5.40) Hemoglobin 10.7 g/dL (12.0-15.5) Hematocrit 33.5 % (36.0-47.0) Mean Corpuscular Volume 91 fL (79-100) Mean Corpuscular Hemoglobin 29 pg (25-35) Mean Corpuscular Hemoglobin Concent 32 g/dL (31-37) Red Cell Distribution Width 15.1 % (11.5-14.5) Platelet Count 174 x10^3/uL (140-400) Neutrophils (%) (Auto) 65 % (31-73) Lymphocytes (%) (Auto) 7 % (24-48) Monocytes (%) (Auto) 5 % (0-9) Eosinophils (%) (Auto) 22 % (0-3) Basophils (%) (Auto) 0 % (0-3) Neutrophils # (Auto) 9.8 x10^3uL (1.8-7.7) Lymphocytes # (Auto) 1.1 x10^3/uL (1.0-4.8) Monocytes # (Auto) 0.7 x10^3/uL (0.0-1.1) Eosinophils # (Auto) 3.4 x10^3/uL (0.0-0.7) Basophils # (Auto) 0.0 x10^3/uL (0.0-0.2) Prothrombin Time 14.8 SEC (11.7-14.0) Prothromb Time International Ratio 1.2 (0.8-1.1) Sodium Level 142 mmol/L (136-145) Potassium Level 4.1 mmol/L (3.5-5.1) Chloride Level 108 mmol/L (98-107) Carbon Dioxide Level 26 mmol/L (21-32) Anion Gap 8 (6-14) Blood Urea Nitrogen 22 mg/dL (7-20) Creatinine 1.1 mg/dL (0.6-1.0) Estimated GFR (Cockcroft-Gault) 58.7 BUN/Creatinine Ratio 20 (6-20) Glucose Level 110 mg/dL (70-99) Calcium Level 8.5 mg/dL (8.5-10.1) Total Bilirubin 0.4 mg/dL (0.2-1.0) Aspartate Amino Transf (AST/SGOT) 12 U/L (15-37) Alanine Aminotransferase (ALT/SGPT) 10 U/L (14-59) Alkaline Phosphatase 88 U/L (46-116) Total Protein 5.5 g/dL (6.4-8.2) Albumin 2.2 g/dL (3.4-5.0) Albumin/Globulin Ratio 0.7 (1.0-1.7) Objective: Assessment: Febrile illness source resp Leucocytosis Lactic acidosis PENICILLIN allergy, but has tolerated amoxicillin per chart review Acute resp failure appears multifactorial, aspiration Overdose on OxyContin. H/O Chronic interstitial lung disease. COPD h/o severe Cardiomyopathy, EF 10-15 % CAD/CHF Depression Chronic dysphagia; s/p PEG tube for chronic vomiting AICD HTN Severe MR,not a surgical candidate Plan: Plan of Care zosyn ,pt has tolerated amoxicillin per chart review F/U C/S and labs in am awaiting bronch today Cont supportive care D/W AURELIA HOSKINS MD Jan 06, 2019 07:44
--- NOTE | 2019-01-06 07:55 | RAD ---
Portable chest, 01/06/2019: HISTORY: Respiratory failure Comparison is made to yesterday's study. The NG tube has been removed. An ET tube remains in place in satisfactory position. A left-sided transvenous pacing device is unchanged. The left ventricle is prominent. Right apical pleural/parenchymal opacities are unchanged compatible scarring versus chronic infiltrate. The pulmonary markings remain mildly prominent in an interstitial pattern. This is probably due to fibrosis, although low-grade interstitial edema cannot be excluded. No pleural fluid is evident. No new abnormality is detected. IMPRESSION: No significant change since yesterday's study. Electronically signed by: Steven Latif MD (01/06/2019 7:52 AM) [facility]
[2019-01-06] MEDS: CLOPIDOGREL BISULFATE 75 MG TABLET PO SCH (08:01)
[2019-01-06] MEDS: CHLORHEXIDINE 0.12% 15 ML MOUTHWASH. MM SCH ×2 (08:01→21:30)
[2019-01-06] MEDS: LISINOPRIL 5 MG TABLET. PO SCH (08:03)
[2019-01-06] MEDS: CARVEDILOL 6.25 MG TABLET. PO SCH ×2 (08:03→16:40)
[2019-01-06] MEDS: ASPIRIN 325 MG TABLET PO SCH (08:04)
[2019-01-06] MEDS: FAMOTIDINE 20 MG/2 ML VIAL IVP SCH (08:04)
[2019-01-06] MEDS: ENOXAPARIN 30 MG/0.3 ML SYRINGE. SQ SCH (08:04)
--- NOTE | 2019-01-06 09:14 | PDOC ---
PROGRESS NOTES History of Present Illness History of Present Illness Assessment/Plan Assessment/Plan IMPRESSION ACUTE RESP FAILURE possible oxycontin accidental overdose CAD: s/p PCI/stent to RCA in 2014. 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 No intervention performed. Acute on chronic systolic heart failure. Ejection fraction of 10-15%. . Followed by the heart failure clinic. AE COPD and possible PNA. CONSULT pulmonary. bronch in AM Severe cardiomyopathy: LVEF at 10-15% AICD in situ; HTN: Severe MR: not a surgical candidate Chronic dysphagia; s/p PEG tube for chronic vomiting AICD. Upgraded // at with epicardial lead placement by surgery. MILD ELEVATION OF TROPONIN I The systolic function is severely impaired. The Ejection Fraction is 20-25%. There is global hypokinesis of the left ventricle. There is mild to moderate concentric left ventricular hypertrophy. plan BRONCH IN AM CONT icu monitoring vent support cardiology consult frequent labs dvt prophylaxis ID CONSULT PULM following SEPSIS PROTOCOL 37 min cc time Vitals Vitals Vital Signs Date Time Temp Pulse Resp B/P (MAP) Pulse Ox O2 Delivery O2 Flow Rate FiO2 01/06/19 08:03 84 107/57 01/06/19 08:00 Mechanical Ventilator 01/06/19 08:00 16 99 01/06/19 07:00 99.6 99.6 Physical Exam Physical Exam GENERAL: Intubated, appears comfortable, cachectic, thin lady. HEENT: Anicteric. ETT and OGT in place. NECK: Supple. LUNGS: Decreased breath sounds at bases, otherwise clear. HEART: S1, S2. ABDOMEN: Soft, nontender, nondistended. PEG tube in place. EXTREMITIES: No edema, no cyanosis. DERMATOLOGIC: Warm, dry. No generalized rash. LINES: PIV site looks okay. General: Other (sedated) Heart: Other (100% v-paced with underlying SR, distant heart tones) Lungs: Clear, Crackles Abdomen: Soft, No tenderness Extremities: No edema, Normal pulses Labs LABS SEX: F EXAM STATUS: ADM IN ORD. PHYSICIAN: REGGIE CONTRERAS MD REASON: RF PROCEDURE: PORTABLE CHEST 1V Portable chest, 01/06/2019: HISTORY: Respiratory failure Comparison is made to yesterday's study. The NG tube has been removed. An ET tube remains in place in satisfactory position. A left-sided transvenous pacing device is unchanged. The left ventricle is prominent. Right apical pleural/parenchymal opacities are unchanged compatible scarring versus chronic infiltrate. The pulmonary markings remain mildly prominent in an interstitial pattern. This is probably due to fibrosis, although low-grade interstitial edema cannot be excluded. No pleural fluid is evident. No new abnormality is detected. IMPRESSION: No significant change since yesterday's study. Electronically signed by: Steven June MD (01/06/2019 7:52 AM) [facility] DICTATED and SIGNED BY: STEVEN JUNE MD DATE: 01/06/19 0752 Laboratory Tests Test 01/05/19 17:55 01/05/19 23:29 01/06/19 04:40 Glucose (Fingerstick) 100 mg/dL (70-99) 106 mg/dL (70-99) White Blood Count 15.0 x10^3/uL (4.0-11.0) Red Blood Count 3.69 x10^6/uL (3.50-5.40) Hemoglobin 10.7 g/dL (12.0-15.5) Hematocrit 33.5 % (36.0-47.0) Mean Corpuscular Volume 91 fL (79-100) Mean Corpuscular Hemoglobin 29 pg (25-35) Mean Corpuscular Hemoglobin Concent 32 g/dL (31-37) Red Cell Distribution Width 15.1 % (11.5-14.5) Platelet Count 174 x10^3/uL (140-400) Neutrophils (%) (Auto) 65 % (31-73) Lymphocytes (%) (Auto) 7 % (24-48) Monocytes (%) (Auto) 5 % (0-9) Eosinophils (%) (Auto) 22 % (0-3) Basophils (%) (Auto) 0 % (0-3) Neutrophils # (Auto) 9.8 x10^3uL (1.8-7.7) Lymphocytes # (Auto) 1.1 x10^3/uL (1.0-4.8) Monocytes # (Auto) 0.7 x10^3/uL (0.0-1.1) Eosinophils # (Auto) 3.4 x10^3/uL (0.0-0.7) Basophils # (Auto) 0.0 x10^3/uL (0.0-0.2) Prothrombin Time 14.8 SEC (11.7-14.0) Prothromb Time International Ratio 1.2 (0.8-1.1) Sodium Level 142 mmol/L (136-145) Potassium Level 4.1 mmol/L (3.5-5.1) Chloride Level 108 mmol/L (98-107) Carbon Dioxide Level 26 mmol/L (21-32) Anion Gap 8 (6-14) Blood Urea Nitrogen 22 mg/dL (7-20) Creatinine 1.1 mg/dL (0.6-1.0) Estimated GFR (Cockcroft-Gault) 58.7 BUN/Creatinine Ratio 20 (6-20) Glucose Level 110 mg/dL (70-99) Calcium Level 8.5 mg/dL (8.5-10.1) Total Bilirubin 0.4 mg/dL (0.2-1.0) Aspartate Amino Transf (AST/SGOT) 12 U/L (15-37) Alanine Aminotransferase (ALT/SGPT) 10 U/L (14-59) Alkaline Phosphatase 88 U/L (46-116) Total Protein 5.5 g/dL (6.4-8.2) Albumin 2.2 g/dL (3.4-5.0) Albumin/Globulin Ratio 0.7 (1.0-1.7) Assessment and Plan Assessmemt and Plan Problems Medical Problems: (1) COPD exacerbation Status: Acute (2) Respiratory failure with hypoxia Status: Acute Comment Review of Relevant I have reviewed the following items loren (where applicable) has been applied. Labs Laboratory Tests Test 01/04/19 11:45 01/04/19 12:00 01/04/19 13:33 01/04/19 13:35 White Blood Count 17.3 x10^3/uL (4.0-11.0) Red Blood Count 4.43 x10^6/uL (3.50-5.40) Hemoglobin 12.9 g/dL (12.0-15.5) Hematocrit 41.5 % (36.0-47.0) Mean Corpuscular Volume 94 fL (79-100) Mean Corpuscular Hemoglobin 29 pg (25-35) Mean Corpuscular Hemoglobin Concent 31 g/dL (31-37) Red Cell Distribution Width 15.4 % (11.5-14.5) Platelet Count 246 x10^3/uL (140-400) Neutrophils (%) (Auto) 35 % (31-73) Lymphocytes (%) (Auto) 33 % (24-48) Monocytes (%) (Auto) 5 % (0-9) Eosinophils (%) (Auto) 26 % (0-3) Basophils (%) (Auto) 1 % (0-3) Neutrophils # (Auto) 6.1 x10^3uL (1.8-7.7) Lymphocytes # (Auto) 5.8 x10^3/uL (1.0-4.8) Monocytes # (Auto) 0.9 x10^3/uL (0.0-1.1) Eosinophils # (Auto) 4.5 x10^3/uL (0.0-0.7) Basophils # (Auto) 0.1 x10^3/uL (0.0-0.2) Segmented Neutrophils % 34 % (35-66) Lymphocytes % 39 % (24-48) Monocytes % 2 % (0-10) Eosinophils % 25 % (0-5) Platelet Estimate Adequate (ADEQUATE) Poikilocytosis Slight Anisocytosis Slight Bernardo Cells Few Acanthocytes Occ Schistocytes Occ Sodium Level 138 mmol/L (136-145) Potassium Level 5.0 mmol/L (3.5-5.1) Chloride Level 101 mmol/L (98-107) Carbon Dioxide Level 30 mmol/L (21-32) Anion Gap 7 (6-14) Blood Urea Nitrogen 10 mg/dL (7-20) Creatinine 1.0 mg/dL (0.6-1.0) Estimated GFR (Cockcroft-Gault) 65.6 BUN/Creatinine Ratio 10 (6-20) Glucose Level 178 mg/dL (70-99) Lactic Acid Level 2.8 mmol/L (0.4-2.0) Calcium Level 9.7 mg/dL (8.5-10.1) Total Bilirubin 0.3 mg/dL (0.2-1.0) Aspartate Amino Transf (AST/SGOT) 25 U/L (15-37) Alanine Aminotransferase (ALT/SGPT) 14 U/L (14-59) Alkaline Phosphatase 148 U/L (46-116) Creatine Kinase 89 U/L (26-192) Troponin I Quantitative 0.020 ng/mL (0.000-0.055) EJ-Gos-P-Type Natriuretic Peptide 2832 pg/mL (0-124) Total Protein 7.6 g/dL (6.4-8.2) Albumin 3.3 g/dL (3.4-5.0) Albumin/Globulin Ratio 0.8 (1.0-1.7) Ethyl Alcohol Level < 10 mg/dL (0-10) Urine Collection Type U cath Urine Color Yellow Urine Clarity Clear Urine pH 6.0 Urine Specific [place] 1.015 Urine Protein Negative mg/dL (NEG-TRACE) Urine Glucose (UA) Negative mg/dL (NEG) Urine Ketones (Stick) Negative mg/dL (NEG) Urine Blood Negative (NEG) Urine Nitrite Negative (NEG) Urine Bilirubin Negative (NEG) Urine Urobilinogen Dipstick 0.2 mg/dL (0.2 mg/dL) Urine Leukocyte Esterase Negative (NEG) Urine RBC 0 /HPF (0-2) Urine WBC 0 /HPF (0-4) Urine Squamous Epithelial Cells Few /LPF Urine Amorphous Sediment Present /HPF Urine Bacteria 0 /HPF (0-FEW) Urine Hyaline Casts Few /HPF Urine Mucus Slight /LPF Urine Opiates Screen Pos (NEG) Urine Methadone Screen Neg (NEG) Urine Barbiturates Neg (NEG) Urine Phencyclidine Screen Neg (NEG) Urine Amphetamine/Methamphetamine Neg (NEG) Urine Benzodiazepines Screen Neg (NEG) Urine Cocaine Screen Neg (NEG) Urine Cannabinoids Screen Neg (NEG) Urine Ethyl Alcohol Neg (NEG) Influenza Type A Antigen Negative (NEGATIVE) Influenza Type B Antigen Negative (NEGATIVE) O2 Saturation 90 % (92-99) Arterial Blood pH 7.36 (7.35-7.45) Arterial Blood pCO2 at Patient Temp 51 mmHg (35-46) Arterial Blood pO2 at Patient Temp 61 mmHg (65-108) Arterial Blood HCO3 28 mmol/L (21-28) Arterial Blood Base Excess 2 mmol/L (-3-3) Oxyhemoglobin 89.6 % Methemoglobin 0.4 % (0.0-1.9) Carbon Monoxide, Quantitative 0.3 % (0.0-1.9) FiO2 40 Test 01/04/19 14:40 01/04/19 15:30 01/04/19 19:00 01/04/19 19:30 Nasal Screen MRSA (PCR) Negative (Negative) Lactic Acid Level 2.8 mmol/L (0.4-2.0) 1.8 mmol/L (0.4-2.0) Troponin I Quantitative 0.187 ng/mL (0.000-0.055) 0.260 ng/mL (0.000-0.055) Urine Collection Type Unknown Urine Color Ma[place] Urine Clarity Turbid Urine pH 6.0 Urine Specific [place] 1.020 Urine Protein 30 mg/dL (NEG-TRACE) Urine Glucose (UA) Negative mg/dL (NEG) Urine Ketones (Stick) 15 mg/dL (NEG) Urine Blood Large (NEG) Urine Nitrite Negative (NEG) Urine Bilirubin Small (NEG) Urine Urobilinogen Dipstick 0.2 mg/dL (0.2 mg/dL) Urine Leukocyte Esterase Small (NEG) Urine RBC 6-10 /HPF (0-2) Urine WBC Occ /HPF (0-4) Urine Squamous Epithelial Cells Few /LPF Urine Amorphous Sediment Present /HPF Urine Bacteria 0 /HPF (0-FEW) Prothrombin Time 14.7 SEC (11.7-14.0) Prothromb Time International Ratio 1.2 (0.8-1.1) Fibrinogen 418 mg/dL (200-440) D-Dimer (Jenny) 3.99 ug/mlFEU (0.00-0.50) Procalcitonin 1.11 ng/mL (0.00-0.10) Test 01/05/19 03:25 01/05/19 09:10 01/05/19 17:55 01/05/19 23:29 White Blood Count 13.7 x10^3/uL (4.0-11.0) Red Blood Count 4.06 x10^6/uL (3.50-5.40) Hemoglobin 11.7 g/dL (12.0-15.5) Hematocrit 36.9 % (36.0-47.0) Mean Corpuscular Volume 91 fL (79-100) Mean Corpuscular Hemoglobin 29 pg (25-35) Mean Corpuscular Hemoglobin Concent 32 g/dL (31-37) Red Cell Distribution Width 14.9 % (11.5-14.5) Platelet Count 213 x10^3/uL (140-400) Neutrophils (%) (Auto) 86 % (31-73) Lymphocytes (%) (Auto) 7 % (24-48) Monocytes (%) (Auto) 7 % (0-9) Eosinophils (%) (Auto) 0 % (0-3) Basophils (%) (Auto) 0 % (0-3) Neutrophils # (Auto) 11.8 x10^3uL (1.8-7.7) Lymphocytes # (Auto) 1.0 x10^3/uL (1.0-4.8) Monocytes # (Auto) 0.9 x10^3/uL (0.0-1.1) Eosinophils # (Auto) 0.0 x10^3/uL (0.0-0.7) Basophils # (Auto) 0.0 x10^3/uL (0.0-0.2) Sodium Level 140 mmol/L (136-145) Potassium Level 4.8 mmol/L (3.5-5.1) Chloride Level 104 mmol/L (98-107) Carbon Dioxide Level 25 mmol/L (21-32) Anion Gap 11 (6-14) Blood Urea Nitrogen 17 mg/dL (7-20) Creatinine 1.2 mg/dL (0.6-1.0) Estimated GFR (Cockcroft-Gault) 53.1 Glucose Level 147 mg/dL (70-99) Calcium Level 8.9 mg/dL (8.5-10.1) Triglycerides Level 48 mg/dL (0-150) Cholesterol Level 106 mg/dL (0-200) LDL Cholesterol, Calculated 32 mg/dL (0-100) VLDL Cholesterol, Calculated 10 mg/dL (0-40) Non-HDL Cholesterol Calculated 42 mg/dL (0-129) HDL Cholesterol 64 mg/dL (40-60) Cholesterol/HDL Ratio 1.7 O2 Saturation 98 % (92-99) Arterial Blood pH 7.44 (7.35-7.45) Arterial Blood pCO2 at Patient Temp 35 mmHg (35-46) Arterial Blood pO2 at Patient Temp 133 mmHg (65-108) Arterial Blood HCO3 23 mmol/L (21-28) Arterial Blood Base Excess -1 mmol/L (-3-3) FiO2 40 Glucose (Fingerstick) 100 mg/dL (70-99) 106 mg/dL (70-99) Test 01/06/19 04:40 White Blood Count 15.0 x10^3/uL (4.0-11.0) Red Blood Count 3.69 x10^6/uL (3.50-5.40) Hemoglobin 10.7 g/dL (12.0-15.5) Hematocrit 33.5 % (36.0-47.0) Mean Corpuscular Volume 91 fL (79-100) Mean Corpuscular Hemoglobin 29 pg (25-35) Mean Corpuscular Hemoglobin Concent 32 g/dL (31-37) Red Cell Distribution Width 15.1 % (11.5-14.5) Platelet Count 174 x10^3/uL (140-400) Neutrophils (%) (Auto) 65 % (31-73) Lymphocytes (%) (Auto) 7 % (24-48) Monocytes (%) (Auto) 5 % (0-9) Eosinophils (%) (Auto) 22 % (0-3) Basophils (%) (Auto) 0 % (0-3) Neutrophils # (Auto) 9.8 x10^3uL (1.8-7.7) Lymphocytes # (Auto) 1.1 x10^3/uL (1.0-4.8) Monocytes # (Auto) 0.7 x10^3/uL (0.0-1.1) Eosinophils # (Auto) 3.4 x10^3/uL (0.0-0.7) Basophils # (Auto) 0.0 x10^3/uL (0.0-0.2) Prothrombin Time 14.8 SEC (11.7-14.0) Prothromb Time International Ratio 1.2 (0.8-1.1) Sodium Level 142 mmol/L (136-145) Potassium Level 4.1 mmol/L (3.5-5.1) Chloride Level 108 mmol/L (98-107) Carbon Dioxide Level 26 mmol/L (21-32) Anion Gap 8 (6-14) Blood Urea Nitrogen 22 mg/dL (7-20) Creatinine 1.1 mg/dL (0.6-1.0) Estimated GFR (Cockcroft-Gault) 58.7 BUN/Creatinine Ratio 20 (6-20) Glucose Level 110 mg/dL (70-99) Calcium Level 8.5 mg/dL (8.5-10.1) Total Bilirubin 0.4 mg/dL (0.2-1.0) Aspartate Amino Transf (AST/SGOT) 12 U/L (15-37) Alanine Aminotransferase (ALT/SGPT) 10 U/L (14-59) Alkaline Phosphatase 88 U/L (46-116) Total Protein 5.5 g/dL (6.4-8.2) Albumin 2.2 g/dL (3.4-5.0) Albumin/Globulin Ratio 0.7 (1.0-1.7) Laboratory Tests Test 01/05/19 17:55 01/05/19 23:29 01/06/19 04:40 Glucose (Fingerstick) 100 mg/dL (70-99) 106 mg/dL (70-99) White Blood Count 15.0 x10^3/uL (4.0-11.0) Red Blood Count 3.69 x10^6/uL (3.50-5.40) Hemoglobin 10.7 g/dL (12.0-15.5) Hematocrit 33.5 % (36.0-47.0) Mean Corpuscular Volume 91 fL (79-100) Mean Corpuscular Hemoglobin 29 pg (25-35) Mean Corpuscular Hemoglobin Concent 32 g/dL (31-37) Red Cell Distribution Width 15.1 % (11.5-14.5) Platelet Count 174 x10^3/uL (140-400) Neutrophils (%) (Auto) 65 % (31-73) Lymphocytes (%) (Auto) 7 % (24-48) Monocytes (%) (Auto) 5 % (0-9) Eosinophils (%) (Auto) 22 % (0-3) Basophils (%) (Auto) 0 % (0-3) Neutrophils # (Auto) 9.8 x10^3uL (1.8-7.7) Lymphocytes # (Auto) 1.1 x10^3/uL (1.0-4.8) Monocytes # (Auto) 0.7 x10^3/uL (0.0-1.1) Eosinophils # (Auto) 3.4 x10^3/uL (0.0-0.7) Basophils # (Auto) 0.0 x10^3/uL (0.0-0.2) Prothrombin Time 14.8 SEC (11.7-14.0) Prothromb Time International Ratio 1.2 (0.8-1.1) Sodium Level 142 mmol/L (136-145) Potassium Level 4.1 mmol/L (3.5-5.1) Chloride Level 108 mmol/L (98-107) Carbon Dioxide Level 26 mmol/L (21-32) Anion Gap 8 (6-14) Blood Urea Nitrogen 22 mg/dL (7-20) Creatinine 1.1 mg/dL (0.6-1.0) Estimated GFR (Cockcroft-Gault) 58.7 BUN/Creatinine Ratio 20 (6-20) Glucose Level 110 mg/dL (70-99) Calcium Level 8.5 mg/dL (8.5-10.1) Total Bilirubin 0.4 mg/dL (0.2-1.0) Aspartate Amino Transf (AST/SGOT) 12 U/L (15-37) Alanine Aminotransferase (ALT/SGPT) 10 U/L (14-59) Alkaline Phosphatase 88 U/L (46-116) Total Protein 5.5 g/dL (6.4-8.2) Albumin 2.2 g/dL (3.4-5.0) Albumin/Globulin Ratio 0.7 (1.0-1.7) Microbiology 01/04/19 Blood Culture - Preliminary, Resulted NO GROWTH AFTER 1 DAY Medications Current Medications Etomidate (Amidate) 10 mg 1X ONCE IV Last administered on 01/04/19at 11:39; Start 01/04/19 at 12:00; Stop 01/04/19 at 12:01; Status DC Succinylcholine Chloride (Anectine) 50 mg 1X ONCE IV Last administered on 01/04at 11:39; Start 01/04/19 at 12:00; Stop 01/04/19 at 12:01; Status DC Fentanyl Citrate (Fentanyl 2ml Vial) 25 mcg PRN Q1HR PRN IV SEE COMMENTS; Start 01/04/19 at 11:45 Fentanyl Citrate (Fentanyl 2ml Vial) 50 mcg PRN Q1HR PRN IV SEE COMMENTS Last administered on 01/05/19at 01:43; Start 01/04/19 at 11:45 Chlorhexidine Gluconate (Peridex) 15 ml BID MM Last administered on 01/06/19at 08:01; Start 01/04/19 at 21:00 Famotidine (Pepcid Vial) 20 mg BID IVP Last administered on 01/05/19at 09:04; Start 01/04/19 at 21:00; Stop 01/05/19 at 10:32; Status DC Morphine Sulfate (Morphine Sulfate) 2 mg PRN Q1HR PRN IV SEE COMMENTS.; Start 01/04/19 at 11:45 Midazolam HCl 100 ml @ 0 mls/hr CONT PRN IV SEE PROTOCOL Last administered on at 04:04; Start 01/04/19 at 12:00 Midazolam HCl (Versed) 5 mg STK-MED ONCE .ROUTE ; Start 01/04/19 at 12:10; Stop 01/04/19 at 12:11; Status DC Albuterol/ Ipratropium (Duoneb) 6 ml 1X ONCE NEB Last administered on at 13:12; Start 01/04/19 at 12:30; Stop 01/04/19 at 12:31; Status DC Methylprednisolone Sodium Succinate (SOLU-Medrol 125MG VIAL) 125 mg 1X ONCE IV Last administered on 01/04/19at 12:44; Start 01/04/19 at 12:30; Stop 01/04/19 at 12:31; Status DC Midazolam HCl (Versed) 5 mg STK-MED ONCE .ROUTE ; Start 01/04/19 at 12:40; Stop 01/04/19 at 12:41; Status DC Sodium Chloride 1,000 ml @ 125 mls/hr Q8H IV Last administered on 01/05/19at 06 :21; Start 01/04/19 at 14:00; Stop 01/05/19 at 13:59; Status DC Albuterol/ Ipratropium (Duoneb) 3 ml RTQID NEB Last administered on 01/05/19at 15:53; Start 01/04/19 at 16:00; Stop 01/05/19 at 15:59; Status DC Midazolam HCl (Versed) 5 mg 1X ONCE IV Last administered on 01/04/19at 11:57; Start 01/04/19 at 13:30; Stop 01/04/19 at 13:31; Status DC Midazolam HCl (Versed) 5 mg 1X ONCE IV Last administered on 01/04/19at 14:00; Start 01/04/19 at 15:15; Stop 01/04/19 at 15:16; Status DC Levofloxacin/ Dextrose 100 ml @ 100 mls/hr 1X ONCE IV Last administered on at 18:34; Start 01/04/19 at 18:00; Stop 01/04/19 at 18:59; Status DC Sodium Chloride 1,000 ml @ 1,710 mls/hr Q36M IV Last administered on at 20:39; Start 01/04/19 at 18:30; Stop 01/04/19 at 19:30; Status DC Sodium Chloride 500 ml @ 1,000 mls/hr PRN Q30MIN PRN IV SEE COMMENTS; Start at 18:00 Vancomycin HCl (Vanco Per Pharmacy) 1 each PRN DAILY PRN MC SEE COMMENTS Last administered on 01/04/19at 20:07; Start 01/04/19 at 18:00; Stop 01/05/19 at 07:48 ; Status DC Levofloxacin/ Dextrose 50 ml @ 50 mls/hr Q24H IV ; Start 01/05/19 at 18:00; Stop 01/05/19 at 18:00; Status DC Vancomycin HCl 1 gm/Sodium Chloride 250 ml @ 250 mls/hr 1X ONCE IV Last administered on 01/04/19at 19:42; Start 01/04/19 at 19:00; Stop 01/04/19 at 19:59 ; Status DC Vancomycin HCl 750 mg/Sodium Chloride 250 ml @ 250 mls/hr Q24H IV ; Start 01/05 at 20:00; Stop 01/05/19 at 20:00; Status DC Vancomycin HCl (Vancomycin Trough Level) 1 each 1X ONCE MC ; Start 01/06/19 at 19:30; Stop 01/06/19 at 19:30; Status DC Furosemide (Lasix) 20 mg 1X ONCE IVP Last administered on 01/05/19at 03:19; Start 01/05/19 at 02:45; Stop 01/05/19 at 02:46; Status DC Aspirin (Andrea Aspirin) 325 mg DAILYWBKFT PO Last administered on 01/06/19at 08: 04; Start 01/05/19 at 11:00 Atorvastatin Calcium (Lipitor) 40 mg HS PO Last administered on 01/05/19 21:12 ; Start 01/05/19 at 21:00 Carvedilol (Coreg) 6.25 mg BIDWMEALS PO Last administered on 01/06/19 08:03; Start 01/05/19 at 11:00 Clopidogrel Bisulfate (Plavix) 75 mg DAILYWBKFT PO Last administered on 08:01; Start 01/05/19 at 11:00 Lisinopril (Prinivil) 2.5 mg DAILY PO Last administered on 01/06/19 08:03; Start 01/05/19 at 11:00 Famotidine (Pepcid Vial) 20 mg DAILY IVP Last administered on 01/06/19 08:04; Start 01/06/19 at 09:00 Piperacillin Sod/ Tazobactam Sod 3.375 gm/Sodium Chloride 50 ml @ 100 mls/hr Q6HRS IV Last administered on 01/06/19at 05:41; Start 01/05/19 at 11:00 Enoxaparin Sodium (Lovenox Per Pharmacy Treatment Dosing) 1 each PRN DAILY PRN MC SEE COMMENTS; Start 01/05/19 at 10:45; Stop 01/05/19 at 14:06; Status DC Enoxaparin Sodium (Lovenox 60mg Syringe) 50 mg DAILY SQ Last administered on at 10:58; Start 01/05/19 at 11:30; Stop 01/05/19 at 14:08; Status DC Fentanyl Citrate 30 ml @ 0 mls/hr CONT PRN IV SEE PROTOCOL Last administered on 01/05/19at 21:14; Start 01/05/19 at 12:15 Chlorhexidine Gluconate (Peridex) 15 ml BID MM ; Start 01/05/19 at 21:00; Status UNV Enoxaparin Sodium (Lovenox 30mg Syringe) 30 mg Q24H SQ Last administered on at 08:04; Start 01/06/19 at 09:00 Albuterol/ Ipratropium (Duoneb) 3 ml RTQID NEB Last administered on 01/06/19 07:21; Start 01/05/19 at 16:00 Sodium Chloride 1,000 ml @ 125 mls/hr Q8H IV Last administered on 01/06/19at 05 :41; Start 01/05/19 at 22:00 Sodium Chloride 500 ml @ 500 mls/hr 1X ONCE IV ; Start 01/05/19 at 22:00; Stop 01/05/19 at 22:59; Status DC Active Scripts Active Clopidogrel (Clopidogrel Bisulfate) 75 Mg Tablet 75 Mg PO DAILYWBKFT 30 Days Lasix (Furosemide) 20 Mg Tablet 1 Tab PO DAILY Proair Hfa Inhaler (Albuterol Sulfate) 8.5 Gm Hfa.aer.ad 1 Puff INH PRN Q6HRS PRN 14 Days Zofran (Ondansetron Hcl) 4 Mg Tablet 1 Tab PO Q8HRS PRN Reported Alprazolam 0.25 Mg Tablet 1 Tab PO TID Flovent 110MCG Hfa (Fluticasone Propionate) 12 Gm Aer.w.adap 2 Puff IH BID Spironolactone 25 Mg Tablet 1 Tab PO DAILY Protonix (Pantoprazole Sodium) 20 Mg Tablet.dr 40 Mg PO DAILY Oxycodone Hcl 5 Mg/5 Ml Solution 5 Mg PO PRN Q4HRS PRN Lisinopril 2.5 Mg Tablet 2.5 Mg PO DAILY Guaifenesin 600 Mg Tablet.er 600 Mg PO BID Sertraline Hcl 50 Mg Tablet 50 Mg PO DAILY Tramadol Hcl 50 Mg Tablet 1 Tab PO PRN Q6HRS PRN Duoneb 0.5-3(2.5) Mg/3 Ml (Albuterol/Ipratropium) 3 Ml Ampul.neb 3 Ml NEB QID Atorvastatin Calcium 40 Mg Tablet 40 Mg PO HS Carvedilol (Carvedilol) 6.25 Mg Tablet 6.25 Mg PO BIDWMEALS Vitamin D (Cholecalciferol (Vitamin D3)) 2,000 Unit Capsule 2,000 Unit PO BIDAFTMEAL Aspirin Ec (Aspirin) 325 Mg Tablet. 325 Mg PO DAILY Vitals/I & O Vital Sign - Last 24 Hours 01/05/19 01/05/19 01/05/19 01/05/19 10:00 10:26 11:00 11:00 Temp 98.9 98.9 Pulse 103 103 103 Resp 18 B/P (MAP) 155/92 (113) 162/94 162/94 Pulse Ox 100 100 O2 Delivery Ventilator Ventilator 3/27/19 3/27/19 3/27/19 3/27/19 11:00 11:54 12:00 12:00 Temp 98.5 98.5 Pulse 102 104 Resp 18 18 B/P (MAP) 162/94 (116) 151/94 (113) Pulse Ox 100 100 100 O2 Delivery Ventilator Ventilator Mechanical Ventilator Ventilator 01/05/19 01/05/19 01/05/19 01/05/19 12:56 13:00 13:33 14:00 Pulse 109 100 Resp 26 22 20 B/P (MAP) 157/92 (113) 119/78 (92) Pulse Ox 97 100 97 O2 Delivery Ventilator Ventilator Ventilator 01/05/19 01/05/19 01/05/19 01/05/19 15:00 15:53 16:00 16:00 Temp 98.6 98.6 Pulse 99 96 Resp 18 20 B/P (MAP) 119/76 (90) 133/84 (100) Pulse Ox 94 100 94 O2 Delivery Ventilator Ventilator Ventilator Mechanical Ventilator 01/05/19 01/05/19 01/05/19 01/05/19 16:32 17:00 17:58 18:00 Pulse 92 92 92 Resp 18 20 B/P (MAP) 133/84 100/59 (73) 107/63 (78) Pulse Ox 99 98 99 O2 Delivery Ventilator Ventilator Ventilator 01/05/19 01/05/19 01/05/19 01/05/19 19:00 19:50 20:00 20:00 Temp 98.5 98.5 Pulse 95 95 Resp 17 18 B/P (MAP) 99/64 (76) 72/55 (61) Pulse Ox 98 98 99 O2 Delivery Ventilator Ventilator Mechanical Ventilator Ventilator 01/05/19 01/05/19 01/05/19 01/05/19 21:00 21:14 21:44 22:00 Pulse 98 100 Resp 22 20 20 22 B/P (MAP) 79/52 (61) 80/50 (60) Pulse Ox 99 99 100 99 O2 Delivery Ventilator Ventilator Ventilator Ventilator 01/05/19 01/05/19 01/05/19 01/06/19 23:00 23:04 23:59 00:00 Temp 98.6 98.6 Pulse 100 96 Resp 22 21 B/P (MAP) 126/69 (88) 116/71 (86) Pulse Ox 99 99 100 O2 Delivery Ventilator Ventilator Mechanical Ventilator Ventilator 01/06/19 01/06/19 01/06/19 01/06/19 01:00 01:26 02:00 03:00 Pulse 94 94 92 Resp 19 19 22 B/P (MAP) 112/65 (81) 110/64 (79) 112/63 (79) Pulse Ox 99 99 99 98 O2 Delivery Ventilator Ventilator Ventilator Ventilator 01/06/19 01/06/19 01/06/19 01/06/19 03:17 04:00 04:00 05:00 Temp 98.4 98.4 Pulse 84 88 Resp 20 19 B/P (MAP) 103/63 (76) 102/64 (77) Pulse Ox 99 100 100 O2 Delivery Ventilator Ventilator Mechanical Ventilator Ventilator 01/06/19 01/06/19 01/06/19 01/06/19 05:54 06:00 07:00 07:08 Temp 99.6 99.6 Pulse 91 90 Resp 19 16 B/P (MAP) 98/60 (73) 106/62 (77) Pulse Ox 99 99 99 99 O2 Delivery Ventilator Ventilator Ventilator Ventilator 01/06/19 01/06/19 01/06/19 01/06/19 08:00 08:00 08:03 08:03 Pulse 84 84 84 Resp 16 B/P (MAP) 107/57 (74) 107/57 107/57 Pulse Ox 99 O2 Delivery Ventilator Mechanical Ventilator Intake and Output 01/05/19 01/05/19 01/06/19 14:59 22:59 06:59 Intake Total 50 ml 1456.85 ml 2142 ml Output Total 810 ml 170 ml 335 ml Balance -760 ml 1286.85 ml 1807 ml Nutrition Consultation Dietary Evaluation: Recommendations by RD: Increase Calorie Intake Comments: Recommend osmolite 1.2 starting at 20mL/hr, increasing 10mL @ 8hr until goal rate of 45mL/hr w/ 50mL water flushes Q 4hr. Expected Outcomes/Goals: TF to meet >75% estimated needs Interpretation of weight loss: >20% in 1 year Malnutrition Findings: Body Fat Depletion (Non Severe: Mild Depletion Weight Status: Underweight BAYLEE SIMS MD Jan 06, 2019 09:14
--- NOTE | 2019-01-06 11:01 | PDOC ---
PULMONARY PROGRESS NOTES Subjective PT STABLE ON VENT AC MODE Vitals Vital Signs Date Time Temp Pulse Resp B/P (MAP) Pulse Ox O2 Delivery O2 Flow Rate FiO2 01/06/19 10:17 99 Ventilator 01/06/19 10:00 70 16 93/53 (66) 01/06/19 07:00 99.6 99.6 Lungs: Clear, Crackles Cardiovascular: S1, S2 Extremities: No Edema Skin: Warm Labs Laboratory Tests Test 01/04/19 11:45 01/04/19 12:00 01/04/19 13:33 01/04/19 13:35 White Blood Count 17.3 x10^3/uL (4.0-11.0) Red Blood Count 4.43 x10^6/uL (3.50-5.40) Hemoglobin 12.9 g/dL (12.0-15.5) Hematocrit 41.5 % (36.0-47.0) Mean Corpuscular Volume 94 fL (79-100) Mean Corpuscular Hemoglobin 29 pg (25-35) Mean Corpuscular Hemoglobin Concent 31 g/dL (31-37) Red Cell Distribution Width 15.4 % (11.5-14.5) Platelet Count 246 x10^3/uL (140-400) Neutrophils (%) (Auto) 35 % (31-73) Lymphocytes (%) (Auto) 33 % (24-48) Monocytes (%) (Auto) 5 % (0-9) Eosinophils (%) (Auto) 26 % (0-3) Basophils (%) (Auto) 1 % (0-3) Neutrophils # (Auto) 6.1 x10^3uL (1.8-7.7) Lymphocytes # (Auto) 5.8 x10^3/uL (1.0-4.8) Monocytes # (Auto) 0.9 x10^3/uL (0.0-1.1) Eosinophils # (Auto) 4.5 x10^3/uL (0.0-0.7) Basophils # (Auto) 0.1 x10^3/uL (0.0-0.2) Segmented Neutrophils % 34 % (35-66) Lymphocytes % 39 % (24-48) Monocytes % 2 % (0-10) Eosinophils % 25 % (0-5) Platelet Estimate Adequate (ADEQUATE) Poikilocytosis Slight Anisocytosis Slight [place] Cells Few Acanthocytes Occ Schistocytes Occ Sodium Level 138 mmol/L (136-145) Potassium Level 5.0 mmol/L (3.5-5.1) Chloride Level 101 mmol/L (98-107) Carbon Dioxide Level 30 mmol/L (21-32) Anion Gap 7 (6-14) Blood Urea Nitrogen 10 mg/dL (7-20) Creatinine 1.0 mg/dL (0.6-1.0) Estimated GFR (Cockcroft-Gault) 65.6 BUN/Creatinine Ratio 10 (6-20) Glucose Level 178 mg/dL (70-99) Lactic Acid Level 2.8 mmol/L (0.4-2.0) Calcium Level 9.7 mg/dL (8.5-10.1) Total Bilirubin 0.3 mg/dL (0.2-1.0) Aspartate Amino Transf (AST/SGOT) 25 U/L (15-37) Alanine Aminotransferase (ALT/SGPT) 14 U/L (14-59) Alkaline Phosphatase 148 U/L (46-116) Creatine Kinase 89 U/L (26-192) Troponin I Quantitative 0.020 ng/mL (0.000-0.055) RA-Nyw-O-Type Natriuretic Peptide 2832 pg/mL (0-124) Total Protein 7.6 g/dL (6.4-8.2) Albumin 3.3 g/dL (3.4-5.0) Albumin/Globulin Ratio 0.8 (1.0-1.7) Ethyl Alcohol Level < 10 mg/dL (0-10) Urine Collection Type U cath Urine Color Yellow Urine Clarity Clear Urine pH 6.0 Urine Specific [place] 1.015 Urine Protein Negative mg/dL (NEG-TRACE) Urine Glucose (UA) Negative mg/dL (NEG) Urine Ketones (Stick) Negative mg/dL (NEG) Urine Blood Negative (NEG) Urine Nitrite Negative (NEG) Urine Bilirubin Negative (NEG) Urine Urobilinogen Dipstick 0.2 mg/dL (0.2 mg/dL) Urine Leukocyte Esterase Negative (NEG) Urine RBC 0 /HPF (0-2) Urine WBC 0 /HPF (0-4) Urine Squamous Epithelial Cells Few /LPF Urine Amorphous Sediment Present /HPF Urine Bacteria 0 /HPF (0-FEW) Urine Hyaline Casts Few /HPF Urine Mucus Slight /LPF Urine Opiates Screen Pos (NEG) Urine Methadone Screen Neg (NEG) Urine Barbiturates Neg (NEG) Urine Phencyclidine Screen Neg (NEG) Urine Amphetamine/Methamphetamine Neg (NEG) Urine Benzodiazepines Screen Neg (NEG) Urine Cocaine Screen Neg (NEG) Urine Cannabinoids Screen Neg (NEG) Urine Ethyl Alcohol Neg (NEG) Influenza Type A Antigen Negative (NEGATIVE) Influenza Type B Antigen Negative (NEGATIVE) O2 Saturation 90 % (92-99) Arterial Blood pH 7.36 (7.35-7.45) Arterial Blood pCO2 at Patient Temp 51 mmHg (35-46) Arterial Blood pO2 at Patient Temp 61 mmHg (65-108) Arterial Blood HCO3 28 mmol/L (21-28) Arterial Blood Base Excess 2 mmol/L (-3-3) Oxyhemoglobin 89.6 % Methemoglobin 0.4 % (0.0-1.9) Carbon Monoxide, Quantitative 0.3 % (0.0-1.9) FiO2 40 Test 01/04/19 14:40 01/04/19 15:30 01/04/19 19:00 01/04/19 19:30 Nasal Screen MRSA (PCR) Negative (Negative) Lactic Acid Level 2.8 mmol/L (0.4-2.0) 1.8 mmol/L (0.4-2.0) Troponin I Quantitative 0.187 ng/mL (0.000-0.055) 0.260 ng/mL (0.000-0.055) Urine Collection Type Unknown Urine Color Ma[place] Urine Clarity Turbid Urine pH 6.0 Urine Specific [place] 1.020 Urine Protein 30 mg/dL (NEG-TRACE) Urine Glucose (UA) Negative mg/dL (NEG) Urine Ketones (Stick) 15 mg/dL (NEG) Urine Blood Large (NEG) Urine Nitrite Negative (NEG) Urine Bilirubin Small (NEG) Urine Urobilinogen Dipstick 0.2 mg/dL (0.2 mg/dL) Urine Leukocyte Esterase Small (NEG) Urine RBC 6-10 /HPF (0-2) Urine WBC Occ /HPF (0-4) Urine Squamous Epithelial Cells Few /LPF Urine Amorphous Sediment Present /HPF Urine Bacteria 0 /HPF (0-FEW) Prothrombin Time 14.7 SEC (11.7-14.0) Prothromb Time International Ratio 1.2 (0.8-1.1) Fibrinogen 418 mg/dL (200-440) D-Dimer (Jenny) 3.99 ug/mlFEU (0.00-0.50) Procalcitonin 1.11 ng/mL (0.00-0.10) Test 01/05/19 03:25 01/05/19 09:10 01/05/19 17:55 01/05/19 23:29 White Blood Count 13.7 x10^3/uL (4.0-11.0) Red Blood Count 4.06 x10^6/uL (3.50-5.40) Hemoglobin 11.7 g/dL (12.0-15.5) Hematocrit 36.9 % (36.0-47.0) Mean Corpuscular Volume 91 fL (79-100) Mean Corpuscular Hemoglobin 29 pg (25-35) Mean Corpuscular Hemoglobin Concent 32 g/dL (31-37) Red Cell Distribution Width 14.9 % (11.5-14.5) Platelet Count 213 x10^3/uL (140-400) Neutrophils (%) (Auto) 86 % (31-73) Lymphocytes (%) (Auto) 7 % (24-48) Monocytes (%) (Auto) 7 % (0-9) Eosinophils (%) (Auto) 0 % (0-3) Basophils (%) (Auto) 0 % (0-3) Neutrophils # (Auto) 11.8 x10^3uL (1.8-7.7) Lymphocytes # (Auto) 1.0 x10^3/uL (1.0-4.8) Monocytes # (Auto) 0.9 x10^3/uL (0.0-1.1) Eosinophils # (Auto) 0.0 x10^3/uL (0.0-0.7) Basophils # (Auto) 0.0 x10^3/uL (0.0-0.2) Sodium Level 140 mmol/L (136-145) Potassium Level 4.8 mmol/L (3.5-5.1) Chloride Level 104 mmol/L (98-107) Carbon Dioxide Level 25 mmol/L (21-32) Anion Gap 11 (6-14) Blood Urea Nitrogen 17 mg/dL (7-20) Creatinine 1.2 mg/dL (0.6-1.0) Estimated GFR (Cockcroft-Gault) 53.1 Glucose Level 147 mg/dL (70-99) Calcium Level 8.9 mg/dL (8.5-10.1) Triglycerides Level 48 mg/dL (0-150) Cholesterol Level 106 mg/dL (0-200) LDL Cholesterol, Calculated 32 mg/dL (0-100) VLDL Cholesterol, Calculated 10 mg/dL (0-40) Non-HDL Cholesterol Calculated 42 mg/dL (0-129) HDL Cholesterol 64 mg/dL (40-60) Cholesterol/HDL Ratio 1.7 O2 Saturation 98 % (92-99) Arterial Blood pH 7.44 (7.35-7.45) Arterial Blood pCO2 at Patient Temp 35 mmHg (35-46) Arterial Blood pO2 at Patient Temp 133 mmHg (65-108) Arterial Blood HCO3 23 mmol/L (21-28) Arterial Blood Base Excess -1 mmol/L (-3-3) FiO2 40 Glucose (Fingerstick) 100 mg/dL (70-99) 106 mg/dL (70-99) Test 01/06/19 04:40 White Blood Count 15.0 x10^3/uL (4.0-11.0) Red Blood Count 3.69 x10^6/uL (3.50-5.40) Hemoglobin 10.7 g/dL (12.0-15.5) Hematocrit 33.5 % (36.0-47.0) Mean Corpuscular Volume 91 fL (79-100) Mean Corpuscular Hemoglobin 29 pg (25-35) Mean Corpuscular Hemoglobin Concent 32 g/dL (31-37) Red Cell Distribution Width 15.1 % (11.5-14.5) Platelet Count 174 x10^3/uL (140-400) Neutrophils (%) (Auto) 65 % (31-73) Lymphocytes (%) (Auto) 7 % (24-48) Monocytes (%) (Auto) 5 % (0-9) Eosinophils (%) (Auto) 22 % (0-3) Basophils (%) (Auto) 0 % (0-3) Neutrophils # (Auto) 9.8 x10^3uL (1.8-7.7) Lymphocytes # (Auto) 1.1 x10^3/uL (1.0-4.8) Monocytes # (Auto) 0.7 x10^3/uL (0.0-1.1) Eosinophils # (Auto) 3.4 x10^3/uL (0.0-0.7) Basophils # (Auto) 0.0 x10^3/uL (0.0-0.2) Prothrombin Time 14.8 SEC (11.7-14.0) Prothromb Time International Ratio 1.2 (0.8-1.1) Sodium Level 142 mmol/L (136-145) Potassium Level 4.1 mmol/L (3.5-5.1) Chloride Level 108 mmol/L (98-107) Carbon Dioxide Level 26 mmol/L (21-32) Anion Gap 8 (6-14) Blood Urea Nitrogen 22 mg/dL (7-20) Creatinine 1.1 mg/dL (0.6-1.0) Estimated GFR (Cockcroft-Gault) 58.7 BUN/Creatinine Ratio 20 (6-20) Glucose Level 110 mg/dL (70-99) Calcium Level 8.5 mg/dL (8.5-10.1) Total Bilirubin 0.4 mg/dL (0.2-1.0) Aspartate Amino Transf (AST/SGOT) 12 U/L (15-37) Alanine Aminotransferase (ALT/SGPT) 10 U/L (14-59) Alkaline Phosphatase 88 U/L (46-116) Total Protein 5.5 g/dL (6.4-8.2) Albumin 2.2 g/dL (3.4-5.0) Albumin/Globulin Ratio 0.7 (1.0-1.7) Laboratory Tests Test 01/05/19 17:55 01/05/19 23:29 01/06/19 04:40 Glucose (Fingerstick) 100 mg/dL (70-99) 106 mg/dL (70-99) White Blood Count 15.0 x10^3/uL (4.0-11.0) Red Blood Count 3.69 x10^6/uL (3.50-5.40) Hemoglobin 10.7 g/dL (12.0-15.5) Hematocrit 33.5 % (36.0-47.0) Mean Corpuscular Volume 91 fL (79-100) Mean Corpuscular Hemoglobin 29 pg (25-35) Mean Corpuscular Hemoglobin Concent 32 g/dL (31-37) Red Cell Distribution Width 15.1 % (11.5-14.5) Platelet Count 174 x10^3/uL (140-400) Neutrophils (%) (Auto) 65 % (31-73) Lymphocytes (%) (Auto) 7 % (24-48) Monocytes (%) (Auto) 5 % (0-9) Eosinophils (%) (Auto) 22 % (0-3) Basophils (%) (Auto) 0 % (0-3) Neutrophils # (Auto) 9.8 x10^3uL (1.8-7.7) Lymphocytes # (Auto) 1.1 x10^3/uL (1.0-4.8) Monocytes # (Auto) 0.7 x10^3/uL (0.0-1.1) Eosinophils # (Auto) 3.4 x10^3/uL (0.0-0.7) Basophils # (Auto) 0.0 x10^3/uL (0.0-0.2) Prothrombin Time 14.8 SEC (11.7-14.0) Prothromb Time International Ratio 1.2 (0.8-1.1) Sodium Level 142 mmol/L (136-145) Potassium Level 4.1 mmol/L (3.5-5.1) Chloride Level 108 mmol/L (98-107) Carbon Dioxide Level 26 mmol/L (21-32) Anion Gap 8 (6-14) Blood Urea Nitrogen 22 mg/dL (7-20) Creatinine 1.1 mg/dL (0.6-1.0) Estimated GFR (Cockcroft-Gault) 58.7 BUN/Creatinine Ratio 20 (6-20) Glucose Level 110 mg/dL (70-99) Calcium Level 8.5 mg/dL (8.5-10.1) Total Bilirubin 0.4 mg/dL (0.2-1.0) Aspartate Amino Transf (AST/SGOT) 12 U/L (15-37) Alanine Aminotransferase (ALT/SGPT) 10 U/L (14-59) Alkaline Phosphatase 88 U/L (46-116) Total Protein 5.5 g/dL (6.4-8.2) Albumin 2.2 g/dL (3.4-5.0) Albumin/Globulin Ratio 0.7 (1.0-1.7) Medications Active Scripts Medications Dose Route/Sig Max Daily Dose Days Date Category Clopidogrel (Clopidogrel Bisulfate) 75 Mg Tablet 75 Mg PO DAILYWBKFT 30 12/01/18 Rx Alprazolam 0.25 Mg Tablet 1 Tab PO TID 11/25/18 Reported Flovent 110MCG Hfa (Fluticasone Propionate) 12 Gm Aer.w.adap 2 Puff IH BID 11/25/18 Reported Spironolactone 25 Mg Tablet 1 Tab PO DAILY 11/25/18 Reported Protonix (Pantoprazole Sodium) 20 Mg Tablet.dr 40 Mg PO DAILY 11/25/18 Reported Oxycodone Hcl 5 Mg/5 Ml Solution 5 Mg PO PRN Q4HRS PRN 11/25/18 Reported Lisinopril 2.5 Mg Tablet 2.5 Mg PO DAILY 11/25/18 Reported Guaifenesin 600 Mg Tablet.er 600 Mg PO BID 11/25/18 Reported Sertraline Hcl 50 Mg Tablet 50 Mg PO DAILY 11/25/18 Reported Lasix (Furosemide) 20 Mg Tablet 1 Tab PO DAILY 10/04/18 Rx Proair Hfa Inhaler (Albuterol Sulfate) 8.5 Gm Hfa.aer.ad 1 Puff INH PRN Q6HRS PRN 14 10/04/18 Rx Tramadol Hcl 50 Mg Tablet 1 Tab PO PRN Q6HRS PRN 08/13/18 Reported Duoneb 0.5-3(2.5) Mg/3 Ml (Albuterol/Ipratropium) 3 Ml Ampul.neb 3 Ml NEB QID 04/17/18 Reported Zofran (Ondansetron Hcl) 4 Mg Tablet 1 Tab PO Q8HRS PRN 05/19/16 Rx Atorvastatin Calcium 40 Mg Tablet 40 Mg PO HS 09/24/15 Reported Carvedilol (Carvedilol) 6.25 Mg Tablet 6.25 Mg PO BIDWMEALS 09/24/15 Reported Vitamin D (Cholecalciferol (Vitamin D3)) 2,000 Unit Capsule 2,000 Unit PO BIDAFTMEAL 01/07/15 Reported Aspirin Ec (Aspirin) 325 Mg Tablet.dr 325 Mg PO DAILY 01/07/15 Reported Impression . IMPRESSION: 1. Acute hypoxemic hypercapnic respiratory failure, multifactorial. ACUTE/ CHRONIC ASPIRATION 2. Overdose on OxyContin. 3. Chronic interstitial lung disease. 4. Chronic eating disorder, status post PEG tube placement. 5. Depression. 6. Chronic obstructive pulmonary disease. 7. Other comorbidities. 8. Severe cardiomyopathy, ejection fraction 10-15%. 9. Coronary artery disease, status post previous stenting. 10. Acute on chronic systolic, diastolic heart failure. Plan . CHRONIC ASPIRATION ON ANTIBX WILL BRONCH TODAY SPOKE WITH FAMILY POSSIBLE EXTUBATE TODAY WILL HOLD SEDATION REGGIE CONTRERAS MD Jan 06, 2019 11:01
[2019-01-06 11:35] LABS: FIO2 ABG 40
--- NOTE | 2019-01-06 11:54 | PDOC ---
CARDIO Progress Notes Date and Time Date of Service 01/06/19 Time of Evaluation 1120 Subjective Subjective: Other (intbuated) Vitals Vitals Vital Signs Date Time Temp Pulse Resp B/P (MAP) Pulse Ox O2 Delivery O2 Flow Rate FiO2 01/06/19 10:17 99 Ventilator 01/06/19 10:00 70 16 93/53 (66) 01/06/19 07:00 99.6 99.6 Weight Weight [ ] Input and Output Intake and Output Intake and Output 01/06/19 07:00 Intake Total 3648.85 ml Output Total 1115 ml Balance 2533.85 ml IV Total 3252.85 ml Tube Feeding 246 ml Other 150 ml Output Urine Total 1115 ml Laboratory Labs Laboratory Tests Test 01/05/19 17:55 01/05/19 23:29 01/06/19 04:40 01/06/19 07:20 Glucose (Fingerstick) 100 mg/dL (70-99) 106 mg/dL (70-99) White Blood Count 15.0 x10^3/uL (4.0-11.0) Red Blood Count 3.69 x10^6/uL (3.50-5.40) Hemoglobin 10.7 g/dL (12.0-15.5) Hematocrit 33.5 % (36.0-47.0) Mean Corpuscular Volume 91 fL (79-100) Mean Corpuscular Hemoglobin 29 pg (25-35) Mean Corpuscular Hemoglobin Concent 32 g/dL (31-37) Red Cell Distribution Width 15.1 % (11.5-14.5) Platelet Count 174 x10^3/uL (140-400) Neutrophils (%) (Auto) 65 % (31-73) Lymphocytes (%) (Auto) 7 % (24-48) Monocytes (%) (Auto) 5 % (0-9) Eosinophils (%) (Auto) 22 % (0-3) Basophils (%) (Auto) 0 % (0-3) Neutrophils # (Auto) 9.8 x10^3uL (1.8-7.7) Lymphocytes # (Auto) 1.1 x10^3/uL (1.0-4.8) Monocytes # (Auto) 0.7 x10^3/uL (0.0-1.1) Eosinophils # (Auto) 3.4 x10^3/uL (0.0-0.7) Basophils # (Auto) 0.0 x10^3/uL (0.0-0.2) Prothrombin Time 14.8 SEC (11.7-14.0) Prothromb Time International Ratio 1.2 (0.8-1.1) Sodium Level 142 mmol/L (136-145) Potassium Level 4.1 mmol/L (3.5-5.1) Chloride Level 108 mmol/L (98-107) Carbon Dioxide Level 26 mmol/L (21-32) Anion Gap 8 (6-14) Blood Urea Nitrogen 22 mg/dL (7-20) Creatinine 1.1 mg/dL (0.6-1.0) Estimated GFR (Cockcroft-Gault) 58.7 BUN/Creatinine Ratio 20 (6-20) Glucose Level 110 mg/dL (70-99) Calcium Level 8.5 mg/dL (8.5-10.1) Total Bilirubin 0.4 mg/dL (0.2-1.0) Aspartate Amino Transf (AST/SGOT) 12 U/L (15-37) Alanine Aminotransferase (ALT/SGPT) 10 U/L (14-59) Alkaline Phosphatase 88 U/L (46-116) Total Protein 5.5 g/dL (6.4-8.2) Albumin 2.2 g/dL (3.4-5.0) Albumin/Globulin Ratio 0.7 (1.0-1.7) O2 Saturation 96 % (92-99) Arterial Blood pH 7.36 (7.35-7.45) Arterial Blood pCO2 at Patient Temp 47 mmHg (35-46) Arterial Blood pO2 at Patient Temp 95 mmHg (65-108) Arterial Blood HCO3 26 mmol/L (21-28) Arterial Blood Base Excess 0 mmol/L (-3-3) FiO2 40 Microbiology Micro Microbiology 01/04/19 Blood Culture - Preliminary, Resulted NO GROWTH AFTER 1 DAY Physical Exam HEENT: Neck Supple W Full Motion Chest: Symmetric LUNGS: Other (intubated) Heart: S1S2, RRR (100% paced with underlying SR, distant heart tones) Abdomen: Soft N/T Extremities: No Edema Neurology: other (sedated) Assessment Assessment 1. Acute on chronic respiratory failure secondary, multifactorial. 2. Mild acute on chronic systolic CHF; CXR without significant vascular congestion 3. NSTEMI: trop highest 0.26. Cardiac cath 11/12/18 at without intervention as noted above. 4. CAD: s/p PCI/stent to RCA in 2014. 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 No intervention performed. 5. Severe cardiomyopathy: LVEF at 20-25% 6. Leukocytosis, lactic acidosis, fevers. probable acute on chronic aspiration. Bronch today 7. AECOPD 8. Possible opioid overdose; on OxyContin for chronic pain 9. AICD in situ; ([employer]). s/p upgrade to [employer]-D last month with epicardial lead placement by CTS. Recent device interrogation without any acute abnormalities 10. HTN: mildly elevated 11. BENJA 12. Moderate-severe MR: not a surgical candidate 13. Chronic dysphagia; s/p PEG Recommendations Secondary prevention including DAPT with ASA and Plavix Optimization therapy Supportive care from a CV standpoint Lung optimization as per OSCAR Darnell APRN Jan 06, 2019 11:53
--- NOTE | 2019-01-06 14:33 | NUR ---
Patient placed on sedation vacation per Dr. Ramires at 1240. Educated family trial procedure. Family verbalized understanding.
--- NOTE | 2019-01-06 14:56 | OP ---
DATE OF SURGERY: 01/06/2019 ATTENDING PHYSICIAN: Trenton Ames MD. SURGEON: Reggie Contreras MD. PROCEDURE: Bronchoscopy, bronchoalveolar lavage. INDICATIONS: The patient with recurrent mucus plugging, respiratory failure, eating disorder and dysphagia, undergoing a diagnostic bronchoscopy. Risks, benefits, and alternatives reviewed with the patient's family, they consented. SEDATION: The patient had been on mechanical ventilation, sedated with IV propofol. DESCRIPTION OF PROCEDURE: Timeout was performed prior to initiating the procedure. The bronchoscope was then passed through the orally placed endotracheal tube. The endotracheal tube was properly positioned above the kriss. The right and left segments and subsegments were visualized. There were no endobronchial lesions. There was minimal amount of mucus plugging in the bases. There was no evidence of active bleeding. FINDINGS: 1. Properly positioned endotracheal tube. 2. No endobronchial lesion. 3. Minimal mucous plugging in the bases. PLAN: 1. We will await the BAL results. The patient tolerated procedure well with no immediate complication. 2. Hold sedation, possible extubation later on today. REGGIE CONTRERAS MD DR: CAROLA/murali JOB#: [id number] / [id number]
[2019-01-06] MEDS: FUROSEMIDE 20 MG TABLET PO SCH (16:40)
[2019-01-06] MEDS: ATORVASTATIN CALCIUM 40 MG TABLET. PO SCH (21:30)
[2019-01-06] MEDS: fentaNYL PF VIAL 100 MCG/2 ML VIAL IV PRN (23:42)
[2019-01-07] VITALS (26 sets, daily range): BP systolic 85–214; BP diastolic 48–106
[2019-01-07] MEDS: MIDAZOLAM 100mg/100ml NS BAG 100 ML IV PRN (01:01)
[2019-01-07] MEDS: IV NORMAL SALINE 1000ML BAG 1,000 ML IV SCH (04:28)
[2019-01-07 04:56] LABS: BASO # 0.1 x10^3/uL (0.0-0.2); BASO % 1 % (0-3); EOS # 0.6 x10^3/uL (0.0-0.7); EOS % 4 % (0-3); HEMATOCRIT 34.9 % (36.0-47.0); HEMOGLOBIN 11.1 g/dL (12.0-15.5); LYMPH # 1.3 x10^3/uL (1.0-4.8); LYMPH % 7 % (24-48); MEAN CORPUSCULAR HEMOGLOBIN 29 pg (25-35); MEAN CORPUSCULAR HGB CONC 32 g/dL (31-37); MEAN CORPUSCULAR VOLUME 91 fL (79-100); MONO # 1.2 x10^3/uL (0.0-1.1); MONO % 7 % (0-9); NEUT % 83 % (31-73); PLATELET COUNT 181 x10^3/uL (140-400); RED BLOOD COUNT 3.85 x10^6/uL (3.50-5.40); WHITE BLOOD COUNT 18.2 x10^3/uL (4.0-11.0)
[2019-01-07 05:05] LABS: PROTHROMBIN TIME PATIENT 14.5 SEC (11.7-14.0)
[2019-01-07 05:25] LABS: ALBUMIN 2.2 g/dL (3.4-5.0); ALBUMIN/GLOBULIN RATIO 0.6 (1.0-1.7); CALCIUM 8.5 mg/dL (8.5-10.1); CREATININE 0.9 mg/dL (0.6-1.0); GFR 74.1; POTASSIUM 3.1 mmol/L (3.5-5.1); TOTAL BILIRUBIN 0.4 mg/dL (0.2-1.0); TOTAL PROTEIN 6.1 g/dL (6.4-8.2)
[2019-01-07] MEDS: PIPERACILLIN/TAZOBACTAM 3.375 GM in IV NORMAL SALINE 50ML 50 ML IV SCH ×3 (06:38→17:36)
[2019-01-07] MEDS: IPRATRPIUM/ALBUTEROL 0.5/2.5MG 3 ML NEBU. NEB SCH ×4 (07:19→20:04)
[2019-01-07] MEDS ORDERED: POTASSIUM CHLORIDE 20 MEQ/15 ML ORAL LIQUID. PEG ONE (07:30)
[2019-01-07 07:38] LABS: BASE EXCESS ABG 0 mmol/L (-3-3); HCO3 ABG 25 mmol/L (21-28); PCO2 ABG 40 mmHg (35-46); PO2 ABG 107 mmHg (65-108); SAT O2 ABG 98 % (92-99)
--- NOTE | 2019-01-07 08:08 | RAD ---
Portable chest, 01/07/2019: HISTORY: Respiratory failure Comparison is made to yesterday's study. The ET tube tip lies well above the kriss. A left-sided transvenous pacing device is unchanged. The left ventricle is enlarged. The pulmonary vascularity is prominent. Right apical pleural-parenchymal opacities are unchanged. A left basilar opacity has developed obscuring the hemidiaphragm. This probably represents atelectasis/infiltrate although pleural fluid cannot be excluded. IMPRESSION: 1. Mild vascular congestion. 2. New left basilar infiltrate. Electronically signed by: Steven Latif MD (01/07/2019 8:05 AM) [facility]
[2019-01-07] MEDS: CLOPIDOGREL BISULFATE 75 MG TABLET PO SCH (08:17)
[2019-01-07] MEDS: CHLORHEXIDINE 0.12% 15 ML MOUTHWASH. MM SCH ×2 (08:17→21:10)
[2019-01-07] MEDS: FAMOTIDINE 20 MG/2 ML VIAL IVP SCH (08:18)
[2019-01-07] MEDS: LISINOPRIL 5 MG TABLET. PO SCH (08:19)
[2019-01-07] MEDS: CARVEDILOL 6.25 MG TABLET. PO SCH ×2 (08:20→17:43)
[2019-01-07] MEDS: ASPIRIN 325 MG TABLET PO SCH (08:20)
[2019-01-07] MEDS: FUROSEMIDE 20 MG TABLET PO SCH (08:21)
[2019-01-07 08:48] LABS: FIO2 ABG 40
--- NOTE | 2019-01-07 08:50 | PDOC ---
Infectious Disease Note Subjective: Subjective pt intubated off versed s/p bronch no diarrhea,tolerating tube feedings well ROS: ROS Negative except for above. Vital Signs: Vital Signs Vital Signs Date Time Temp Pulse Resp B/P (MAP) Pulse Ox O2 Delivery O2 Flow Rate FiO2 01/07/19 08:20 80 121/79 01/07/19 08:00 16 100 Ventilator 01/07/19 07:00 99.0 99.0 01/07/19 00:12 15.0 Physical Exam: PHYSICAL EXAM GENERAL: Intubated, appears comfortable, cachectic, thin lady. HEENT: Anicteric. ETT and OGT in place. NECK: Supple. LUNGS: Decreased breath sounds at bases, otherwise clear. HEART: S1, S2. ABDOMEN: Soft, nontender, nondistended. PEG tube in place. EXTREMITIES: No edema, no cyanosis. DERMATOLOGIC: Warm, dry. No generalized rash. LINES: PIV site looks okay. Medications: Inpatient Meds: Current Medications Medications (Trade) Dose Ordered Sig/Lisandra Start Time Stop Time Status Last Admin Dose Admin Albuterol/ Ipratropium (Duoneb) 3 ml RTQID 01/05/19 16:00 01/07/19 07:19 3 ML Aspirin (Andrea Aspirin) 325 mg DAILYWBKFT 01/05/19 11:00 01/07/19 08:20 325 MG Atorvastatin Calcium (Lipitor) 40 mg HS 01/05/19 21:00 01/06/19 21:30 40 MG Carvedilol (Coreg) 6.25 mg BIDWMEALS 01/05/19 11:00 01/07/19 08:20 6.25 MG Chlorhexidine Gluconate (Peridex) 15 ml BID 01/05/19 21:00 UNV Clopidogrel Bisulfate (Plavix) 75 mg DAILYWBKFT 01/05/19 11:00 01/07/19 08:17 75 MG Enoxaparin Sodium (Lovenox 30mg Syringe) 30 mg Q24H 01/06/19 09:00 01/06/19 08:04 30 MG Enoxaparin Sodium (Lovenox 60mg Syringe) 50 mg DAILY 01/05/19 11:30 01/05/19 14:08 DC 01/05/19 10:58 50 MG Enoxaparin Sodium (Lovenox Per Pharmacy Treatment Dosing) 1 each PRN DAILY PRN 01/05/19 10:45 01/05/19 14:06 DC Etomidate (Amidate) 10 mg 1X ONCE 01/04/19 12:00 01/04/19 12:01 DC 01/04/19 11:39 10 MG Famotidine (Pepcid Vial) 20 mg DAILY 01/06/19 09:00 01/07/19 08:18 20 MG Fentanyl Citrate 30 ml @ 0 mls/hr CONT PRN 01/05/19 12:15 01/06/19 09:54 0 MLS/HR Fentanyl Citrate (Fentanyl 2ml Vial) 50 mcg PRN Q1HR PRN 01/04/19 11:45 01/06/19 23:42 50 MCG Furosemide (Lasix) 20 mg DAILY 01/06/19 15:00 01/07/19 08:21 20 MG Levofloxacin/ Dextrose 50 ml @ 50 mls/hr Q24H 01/05/19 18:00 01/05/19 18:00 DC Lisinopril (Prinivil) 2.5 mg DAILY 01/05/19 11:00 01/07/19 08:19 2.5 MG Methylprednisolone Sodium Succinate (SOLU-Medrol 125MG VIAL) 125 mg 1X ONCE 01/04/19 12:30 01/04/19 12:31 DC 01/04/19 12:44 125 MG Midazolam HCl (Versed) 5 mg 1X ONCE 01/04/19 15:15 01/04/19 15:16 DC 01/04/19 14:00 5 MG Morphine Sulfate (Morphine Sulfate) 2 mg PRN Q1HR PRN 01/04/19 11:45 Piperacillin Sod/ Tazobactam Sod 3.375 gm/Sodium Chloride 50 ml @ 100 mls/hr Q6HRS 01/05/19 11:00 01/07/19 06:38 100 MLS/HR Potassium Chloride (KCl Oral Soln) 40 meq 1X ONCE 01/07/19 07:30 01/07/19 07:31 DC 01/07/19 08:17 40 MEQ Sodium Chloride 500 ml @ 500 mls/hr 1X ONCE 01/05/19 22:00 01/05/19 22:59 DC Succinylcholine Chloride (Anectine) 50 mg 1X ONCE 01/04/19 12:00 01/04/19 12:01 DC 01/04/19 11:39 50 MG Vancomycin HCl (Vanco Per Pharmacy) 1 each PRN DAILY PRN 01/04/19 18:00 01/05/19 07:48 DC 01/04/19 20:07 1 EACH Vancomycin HCl (Vancomycin Trough Level) 1 each 1X ONCE 01/06/19 19:30 01/06/19 19:30 DC Vancomycin HCl 750 mg/Sodium Chloride 250 ml @ 250 mls/hr Q24H 01/05/19 20:00 01/05/19 20:00 DC Vancomycin HCl 1 gm/Sodium Chloride 250 ml @ 250 mls/hr 1X ONCE 01/04/19 19:00 01/04/19 19:59 DC 01/04/19 19:42 250 MLS/HR Labs: Lab Laboratory Tests Test 01/07/19 04:35 White Blood Count 18.2 x10^3/uL (4.0-11.0) Red Blood Count 3.85 x10^6/uL (3.50-5.40) Hemoglobin 11.1 g/dL (12.0-15.5) Hematocrit 34.9 % (36.0-47.0) Mean Corpuscular Volume 91 fL (79-100) Mean Corpuscular Hemoglobin 29 pg (25-35) Mean Corpuscular Hemoglobin Concent 32 g/dL (31-37) Red Cell Distribution Width 15.0 % (11.5-14.5) Platelet Count 181 x10^3/uL (140-400) Neutrophils (%) (Auto) 83 % (31-73) Lymphocytes (%) (Auto) 7 % (24-48) Monocytes (%) (Auto) 7 % (0-9) Eosinophils (%) (Auto) 4 % (0-3) Basophils (%) (Auto) 1 % (0-3) Neutrophils # (Auto) 15.0 x10^3uL (1.8-7.7) Lymphocytes # (Auto) 1.3 x10^3/uL (1.0-4.8) Monocytes # (Auto) 1.2 x10^3/uL (0.0-1.1) Eosinophils # (Auto) 0.6 x10^3/uL (0.0-0.7) Basophils # (Auto) 0.1 x10^3/uL (0.0-0.2) Prothrombin Time 14.5 SEC (11.7-14.0) Prothromb Time International Ratio 1.2 (0.8-1.1) Sodium Level 142 mmol/L (136-145) Potassium Level 3.1 mmol/L (3.5-5.1) Chloride Level 107 mmol/L (98-107) Carbon Dioxide Level 27 mmol/L (21-32) Anion Gap 8 (6-14) Blood Urea Nitrogen 14 mg/dL (7-20) Creatinine 0.9 mg/dL (0.6-1.0) Estimated GFR (Cockcroft-Gault) 74.1 BUN/Creatinine Ratio 16 (6-20) Glucose Level 168 mg/dL (70-99) Calcium Level 8.5 mg/dL (8.5-10.1) Magnesium Level 1.8 mg/dL (1.8-2.4) Total Bilirubin 0.4 mg/dL (0.2-1.0) Aspartate Amino Transf (AST/SGOT) 14 U/L (15-37) Alanine Aminotransferase (ALT/SGPT) 11 U/L (14-59) Alkaline Phosphatase 92 U/L (46-116) Total Protein 6.1 g/dL (6.4-8.2) Albumin 2.2 g/dL (3.4-5.0) Albumin/Globulin Ratio 0.6 (1.0-1.7) Objective: Assessment: Febrile illness source resp resolved cults neg so far Leucocytosis trending upwards,? reactive Lactic acidosis resolved PENICILLIN allergy, but has tolerated amoxicillin per chart review Acute resp failure appears multifactorial, aspiration Overdose on OxyContin. H/O Chronic interstitial lung disease. COPD h/o severe Cardiomyopathy, EF 10-15 % CAD/CHF Depression Chronic dysphagia; s/p PEG tube for chronic vomiting AICD HTN Severe MR,not a surgical candidate Plan: Plan of Care zosyn F/U C/S and labs in am f/u bronch c/s monitor wbc Cont supportive care D/W AURELIA HOSKINS MD Jan 07, 2019 08:50
--- NOTE | 2019-01-07 09:14 | NUR ---
SS following up with discharge planning. Pt still on vent. SS will continue to follow for discharge planning.
--- NOTE | 2019-01-07 09:29 | PDOC ---
PULMONARY PROGRESS NOTES Subjective ON PS NOT READY FOR EXTUBATION Vitals Vital Signs Date Time Temp Pulse Resp B/P (MAP) Pulse Ox O2 Delivery O2 Flow Rate FiO2 01/07/19 09:00 88 16 125/54 (77) 100 Ventilator 01/07/19 07:00 99.0 99.0 01/07/19 00:12 15.0 Lungs: Clear, Crackles Cardiovascular: S1, S2 Extremities: No Edema Skin: Warm Labs Laboratory Tests Test 01/05/19 17:55 01/05/19 23:29 01/06/19 04:40 01/06/19 07:20 Glucose (Fingerstick) 100 mg/dL (70-99) 106 mg/dL (70-99) White Blood Count 15.0 x10^3/uL (4.0-11.0) Red Blood Count 3.69 x10^6/uL (3.50-5.40) Hemoglobin 10.7 g/dL (12.0-15.5) Hematocrit 33.5 % (36.0-47.0) Mean Corpuscular Volume 91 fL (79-100) Mean Corpuscular Hemoglobin 29 pg (25-35) Mean Corpuscular Hemoglobin Concent 32 g/dL (31-37) Red Cell Distribution Width 15.1 % (11.5-14.5) Platelet Count 174 x10^3/uL (140-400) Neutrophils (%) (Auto) 65 % (31-73) Lymphocytes (%) (Auto) 7 % (24-48) Monocytes (%) (Auto) 5 % (0-9) Eosinophils (%) (Auto) 22 % (0-3) Basophils (%) (Auto) 0 % (0-3) Neutrophils # (Auto) 9.8 x10^3uL (1.8-7.7) Lymphocytes # (Auto) 1.1 x10^3/uL (1.0-4.8) Monocytes # (Auto) 0.7 x10^3/uL (0.0-1.1) Eosinophils # (Auto) 3.4 x10^3/uL (0.0-0.7) Basophils # (Auto) 0.0 x10^3/uL (0.0-0.2) Prothrombin Time 14.8 SEC (11.7-14.0) Prothromb Time International Ratio 1.2 (0.8-1.1) Sodium Level 142 mmol/L (136-145) Potassium Level 4.1 mmol/L (3.5-5.1) Chloride Level 108 mmol/L (98-107) Carbon Dioxide Level 26 mmol/L (21-32) Anion Gap 8 (6-14) Blood Urea Nitrogen 22 mg/dL (7-20) Creatinine 1.1 mg/dL (0.6-1.0) Estimated GFR (Cockcroft-Gault) 58.7 BUN/Creatinine Ratio 20 (6-20) Glucose Level 110 mg/dL (70-99) Calcium Level 8.5 mg/dL (8.5-10.1) Total Bilirubin 0.4 mg/dL (0.2-1.0) Aspartate Amino Transf (AST/SGOT) 12 U/L (15-37) Alanine Aminotransferase (ALT/SGPT) 10 U/L (14-59) Alkaline Phosphatase 88 U/L (46-116) Total Protein 5.5 g/dL (6.4-8.2) Albumin 2.2 g/dL (3.4-5.0) Albumin/Globulin Ratio 0.7 (1.0-1.7) O2 Saturation 96 % (92-99) Arterial Blood pH 7.36 (7.35-7.45) Arterial Blood pCO2 at Patient Temp 47 mmHg (35-46) Arterial Blood pO2 at Patient Temp 95 mmHg (65-108) Arterial Blood HCO3 26 mmol/L (21-28) Arterial Blood Base Excess 0 mmol/L (-3-3) FiO2 40 Test 01/07/19 04:35 01/07/19 07:20 White Blood Count 18.2 x10^3/uL (4.0-11.0) Red Blood Count 3.85 x10^6/uL (3.50-5.40) Hemoglobin 11.1 g/dL (12.0-15.5) Hematocrit 34.9 % (36.0-47.0) Mean Corpuscular Volume 91 fL (79-100) Mean Corpuscular Hemoglobin 29 pg (25-35) Mean Corpuscular Hemoglobin Concent 32 g/dL (31-37) Red Cell Distribution Width 15.0 % (11.5-14.5) Platelet Count 181 x10^3/uL (140-400) Neutrophils (%) (Auto) 83 % (31-73) Lymphocytes (%) (Auto) 7 % (24-48) Monocytes (%) (Auto) 7 % (0-9) Eosinophils (%) (Auto) 4 % (0-3) Basophils (%) (Auto) 1 % (0-3) Neutrophils # (Auto) 15.0 x10^3uL (1.8-7.7) Lymphocytes # (Auto) 1.3 x10^3/uL (1.0-4.8) Monocytes # (Auto) 1.2 x10^3/uL (0.0-1.1) Eosinophils # (Auto) 0.6 x10^3/uL (0.0-0.7) Basophils # (Auto) 0.1 x10^3/uL (0.0-0.2) Prothrombin Time 14.5 SEC (11.7-14.0) Prothromb Time International Ratio 1.2 (0.8-1.1) Sodium Level 142 mmol/L (136-145) Potassium Level 3.1 mmol/L (3.5-5.1) Chloride Level 107 mmol/L (98-107) Carbon Dioxide Level 27 mmol/L (21-32) Anion Gap 8 (6-14) Blood Urea Nitrogen 14 mg/dL (7-20) Creatinine 0.9 mg/dL (0.6-1.0) Estimated GFR (Cockcroft-Gault) 74.1 BUN/Creatinine Ratio 16 (6-20) Glucose Level 168 mg/dL (70-99) Calcium Level 8.5 mg/dL (8.5-10.1) Magnesium Level 1.8 mg/dL (1.8-2.4) Total Bilirubin 0.4 mg/dL (0.2-1.0) Aspartate Amino Transf (AST/SGOT) 14 U/L (15-37) Alanine Aminotransferase (ALT/SGPT) 11 U/L (14-59) Alkaline Phosphatase 92 U/L (46-116) Total Protein 6.1 g/dL (6.4-8.2) Albumin 2.2 g/dL (3.4-5.0) Albumin/Globulin Ratio 0.6 (1.0-1.7) O2 Saturation 98 % (92-99) Arterial Blood pH 7.41 (7.35-7.45) Arterial Blood pCO2 at Patient Temp 40 mmHg (35-46) Arterial Blood pO2 at Patient Temp 107 mmHg (65-108) Arterial Blood HCO3 25 mmol/L (21-28) Arterial Blood Base Excess 0 mmol/L (-3-3) FiO2 40 Laboratory Tests Test 01/07/19 04:35 01/07/19 07:20 White Blood Count 18.2 x10^3/uL (4.0-11.0) Red Blood Count 3.85 x10^6/uL (3.50-5.40) Hemoglobin 11.1 g/dL (12.0-15.5) Hematocrit 34.9 % (36.0-47.0) Mean Corpuscular Volume 91 fL (79-100) Mean Corpuscular Hemoglobin 29 pg (25-35) Mean Corpuscular Hemoglobin Concent 32 g/dL (31-37) Red Cell Distribution Width 15.0 % (11.5-14.5) Platelet Count 181 x10^3/uL (140-400) Neutrophils (%) (Auto) 83 % (31-73) Lymphocytes (%) (Auto) 7 % (24-48) Monocytes (%) (Auto) 7 % (0-9) Eosinophils (%) (Auto) 4 % (0-3) Basophils (%) (Auto) 1 % (0-3) Neutrophils # (Auto) 15.0 x10^3uL (1.8-7.7) Lymphocytes # (Auto) 1.3 x10^3/uL (1.0-4.8) Monocytes # (Auto) 1.2 x10^3/uL (0.0-1.1) Eosinophils # (Auto) 0.6 x10^3/uL (0.0-0.7) Basophils # (Auto) 0.1 x10^3/uL (0.0-0.2) Prothrombin Time 14.5 SEC (11.7-14.0) Prothromb Time International Ratio 1.2 (0.8-1.1) Sodium Level 142 mmol/L (136-145) Potassium Level 3.1 mmol/L (3.5-5.1) Chloride Level 107 mmol/L (98-107) Carbon Dioxide Level 27 mmol/L (21-32) Anion Gap 8 (6-14) Blood Urea Nitrogen 14 mg/dL (7-20) Creatinine 0.9 mg/dL (0.6-1.0) Estimated GFR (Cockcroft-Gault) 74.1 BUN/Creatinine Ratio 16 (6-20) Glucose Level 168 mg/dL (70-99) Calcium Level 8.5 mg/dL (8.5-10.1) Magnesium Level 1.8 mg/dL (1.8-2.4) Total Bilirubin 0.4 mg/dL (0.2-1.0) Aspartate Amino Transf (AST/SGOT) 14 U/L (15-37) Alanine Aminotransferase (ALT/SGPT) 11 U/L (14-59) Alkaline Phosphatase 92 U/L (46-116) Total Protein 6.1 g/dL (6.4-8.2) Albumin 2.2 g/dL (3.4-5.0) Albumin/Globulin Ratio 0.6 (1.0-1.7) O2 Saturation 98 % (92-99) Arterial Blood pH 7.41 (7.35-7.45) Arterial Blood pCO2 at Patient Temp 40 mmHg (35-46) Arterial Blood pO2 at Patient Temp 107 mmHg (65-108) Arterial Blood HCO3 25 mmol/L (21-28) Arterial Blood Base Excess 0 mmol/L (-3-3) FiO2 40 Medications Active Scripts Medications Dose Route/Sig Max Daily Dose Days Date Category Clopidogrel (Clopidogrel Bisulfate) 75 Mg Tablet 75 Mg PO [id number] 30 12/01/18 Rx Alprazolam 0.25 Mg Tablet 1 Tab PO TID 11/25/18 Reported Flovent 110MCG Hfa (Fluticasone Propionate) 12 Gm Aer.w.adap 2 Puff IH BID 11/25/18 Reported Spironolactone 25 Mg Tablet 1 Tab PO DAILY 11/25/18 Reported Protonix (Pantoprazole Sodium) 20 Mg Tablet.dr 40 Mg PO DAILY 11/25/18 Reported Oxycodone Hcl 5 Mg/5 Ml Solution 5 Mg PO PRN Q4HRS PRN 11/25/18 Reported Lisinopril 2.5 Mg Tablet 2.5 Mg PO DAILY 11/25/18 Reported Guaifenesin 600 Mg Tablet.er 600 Mg PO BID 11/25/18 Reported Sertraline Hcl 50 Mg Tablet 50 Mg PO DAILY 11/25/18 Reported Lasix (Furosemide) 20 Mg Tablet 1 Tab PO DAILY 10/04/18 Rx Proair Hfa Inhaler (Albuterol Sulfate) 8.5 Gm Hfa.aer.ad 1 Puff INH PRN Q6HRS PRN 14 10/04/18 Rx Tramadol Hcl 50 Mg Tablet 1 Tab PO PRN Q6HRS PRN 08/13/18 Reported Duoneb 0.5-3(2.5) Mg/3 Ml (Albuterol/Ipratropium) 3 Ml Ampul.neb 3 Ml NEB QID 04/17/18 Reported Zofran (Ondansetron Hcl) 4 Mg Tablet 1 Tab PO Q8HRS PRN 05/19/16 Rx Atorvastatin Calcium 40 Mg Tablet 40 Mg PO HS 09/24/15 Reported Carvedilol (Carvedilol) 6.25 Mg Tablet 6.25 Mg PO BIDWMEALS 09/24/15 Reported Vitamin D (Cholecalciferol (Vitamin D3)) 2,000 Unit Capsule 2,000 Unit PO BIDAFTMEAL 01/07/15 Reported Aspirin Ec (Aspirin) 325 Mg Tablet.dr 325 Mg PO DAILY 01/07/15 Reported Impression . IMPRESSION: 1. Acute hypoxemic hypercapnic respiratory failure, multifactorial. ACUTE/ CHRONIC ASPIRATION 2. Overdose on OxyContin. 3. Chronic interstitial lung disease. 4. Chronic eating disorder, status post PEG tube placement. 5. Depression. 6. Chronic obstructive pulmonary disease. 7. Other comorbidities. 8. Severe cardiomyopathy, ejection fraction 10-15%. 9. Coronary artery disease, status post previous stenting. 10. Acute on chronic systolic, diastolic heart failure. Plan . CHRONIC ASPIRATION ON ANTIBX BAL SO FAR NEGATIVE NOT READY FOR EXTUBATION WILL CONTINUE PS ENTERAL FEEDING DVT GI PROPH CCT 30 MIN REGGIE CONTRERAS MD Jan 07, 2019 09:29
[2019-01-07] MEDS: ENOXAPARIN 30 MG/0.3 ML SYRINGE. SQ SCH (09:58)
[2019-01-07] MEDS: MORPHINE SULFATE 2 MG/ML VIAL. IV PRN (10:01)
--- NOTE | 2019-01-07 10:26 | PDOC ---
PROGRESS NOTES History of Present Illness History of Present Illness Assessment/Plan Assessment/Plan IMPRESSION ACUTE RESP FAILURE possible oxycontin accidental overdose CAD: s/p PCI/stent to RCA in 2015. 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 No intervention performed. Acute on chronic systolic heart failure. Ejection fraction of 10-15%. . Followed by the heart failure clinic. AE COPD and possible PNA. CONSULT pulmonary. bronch in AM Severe cardiomyopathy: LVEF at 10-15% AICD in situ; HTN: Severe MR: not a surgical candidate Chronic dysphagia; s/p PEG tube for chronic vomiting AICD. Upgraded // at with epicardial lead placement by surgery. MILD ELEVATION OF TROPONIN I The systolic function is severely impaired. The Ejection Fraction is 20-25%. There is global hypokinesis of the left ventricle. There is mild to moderate concentric left ventricular hypertrophy. plan BRONCH IN AM CONT icu monitoring vent support cardiology consult frequent labs dvt prophylaxis ID CONSULT PULM following SEPSIS PROTOCOL 33 min cc time Vitals Vitals Vital Signs Date Time Temp Pulse Resp B/P (MAP) Pulse Ox O2 Delivery O2 Flow Rate FiO2 01/07/19 10:01 33 100 Ventilator 01/07/19 09:00 88 125/54 (77) 01/07/19 07:00 99.0 99.0 01/07/19 00:12 15.0 Physical Exam Physical Exam GENERAL: Intubated, sedated, appears comfortable, cachectic, thin lady. frail HEENT: Anicteric. ETT and OGT in place. NECK: Supple. LUNGS: clear. HEART: S1, S2. ABDOMEN: Soft, nontender, nondistended. PEG tube in place. EXTREMITIES: No edema, no cyanosis. DERMATOLOGIC: Warm, dry. No generalized rash. LINES: PIV site looks okay. General: No acute distress, Other (sedated) Heart: Other (100% v-paced with underlying SR, distant heart tones) Lungs: Clear, Crackles Abdomen: Normal bowel sounds, Soft, No tenderness, No hepatosplenomegaly, No masses Extremities: No cyanosis, No edema, Normal pulses Skin: No significant lesion Labs LABS Laboratory Tests Test 01/07/19 04:35 01/07/19 07:20 White Blood Count 18.2 x10^3/uL (4.0-11.0) Red Blood Count 3.85 x10^6/uL (3.50-5.40) Hemoglobin 11.1 g/dL (12.0-15.5) Hematocrit 34.9 % (36.0-47.0) Mean Corpuscular Volume 91 fL (79-100) Mean Corpuscular Hemoglobin 29 pg (25-35) Mean Corpuscular Hemoglobin Concent 32 g/dL (31-37) Red Cell Distribution Width 15.0 % (11.5-14.5) Platelet Count 181 x10^3/uL (140-400) Neutrophils (%) (Auto) 83 % (31-73) Lymphocytes (%) (Auto) 7 % (24-48) Monocytes (%) (Auto) 7 % (0-9) Eosinophils (%) (Auto) 4 % (0-3) Basophils (%) (Auto) 1 % (0-3) Neutrophils # (Auto) 15.0 x10^3uL (1.8-7.7) Lymphocytes # (Auto) 1.3 x10^3/uL (1.0-4.8) Monocytes # (Auto) 1.2 x10^3/uL (0.0-1.1) Eosinophils # (Auto) 0.6 x10^3/uL (0.0-0.7) Basophils # (Auto) 0.1 x10^3/uL (0.0-0.2) Prothrombin Time 14.5 SEC (11.7-14.0) Prothromb Time International Ratio 1.2 (0.8-1.1) Sodium Level 142 mmol/L (136-145) Potassium Level 3.1 mmol/L (3.5-5.1) Chloride Level 107 mmol/L (98-107) Carbon Dioxide Level 27 mmol/L (21-32) Anion Gap 8 (6-14) Blood Urea Nitrogen 14 mg/dL (7-20) Creatinine 0.9 mg/dL (0.6-1.0) Estimated GFR (Cockcroft-Gault) 74.1 BUN/Creatinine Ratio 16 (6-20) Glucose Level 168 mg/dL (70-99) Calcium Level 8.5 mg/dL (8.5-10.1) Magnesium Level 1.8 mg/dL (1.8-2.4) Total Bilirubin 0.4 mg/dL (0.2-1.0) Aspartate Amino Transf (AST/SGOT) 14 U/L (15-37) Alanine Aminotransferase (ALT/SGPT) 11 U/L (14-59) Alkaline Phosphatase 92 U/L (46-116) Total Protein 6.1 g/dL (6.4-8.2) Albumin 2.2 g/dL (3.4-5.0) Albumin/Globulin Ratio 0.6 (1.0-1.7) O2 Saturation 98 % (92-99) Arterial Blood pH 7.41 (7.35-7.45) Arterial Blood pCO2 at Patient Temp 40 mmHg (35-46) Arterial Blood pO2 at Patient Temp 107 mmHg (65-108) Arterial Blood HCO3 25 mmol/L (21-28) Arterial Blood Base Excess 0 mmol/L (-3-3) FiO2 40 Assessment and Plan Assessmemt and Plan Problems Medical Problems: (1) COPD exacerbation Status: Acute (2) Respiratory failure with hypoxia Status: Acute Comment Review of Relevant I have reviewed the following items loren (where applicable) has been applied. Labs Laboratory Tests Test 01/05/19 17:55 01/05/19 23:29 01/06/19 04:40 01/06/19 07:20 Glucose (Fingerstick) 100 mg/dL (70-99) 106 mg/dL (70-99) White Blood Count 15.0 x10^3/uL (4.0-11.0) Red Blood Count 3.69 x10^6/uL (3.50-5.40) Hemoglobin 10.7 g/dL (12.0-15.5) Hematocrit 33.5 % (36.0-47.0) Mean Corpuscular Volume 91 fL (79-100) Mean Corpuscular Hemoglobin 29 pg (25-35) Mean Corpuscular Hemoglobin Concent 32 g/dL (31-37) Red Cell Distribution Width 15.1 % (11.5-14.5) Platelet Count 174 x10^3/uL (140-400) Neutrophils (%) (Auto) 65 % (31-73) Lymphocytes (%) (Auto) 7 % (24-48) Monocytes (%) (Auto) 5 % (0-9) Eosinophils (%) (Auto) 22 % (0-3) Basophils (%) (Auto) 0 % (0-3) Neutrophils # (Auto) 9.8 x10^3uL (1.8-7.7) Lymphocytes # (Auto) 1.1 x10^3/uL (1.0-4.8) Monocytes # (Auto) 0.7 x10^3/uL (0.0-1.1) Eosinophils # (Auto) 3.4 x10^3/uL (0.0-0.7) Basophils # (Auto) 0.0 x10^3/uL (0.0-0.2) Prothrombin Time 14.8 SEC (11.7-14.0) Prothromb Time International Ratio 1.2 (0.8-1.1) Sodium Level 142 mmol/L (136-145) Potassium Level 4.1 mmol/L (3.5-5.1) Chloride Level 108 mmol/L (98-107) Carbon Dioxide Level 26 mmol/L (21-32) Anion Gap 8 (6-14) Blood Urea Nitrogen 22 mg/dL (7-20) Creatinine 1.1 mg/dL (0.6-1.0) Estimated GFR (Cockcroft-Gault) 58.7 BUN/Creatinine Ratio 20 (6-20) Glucose Level 110 mg/dL (70-99) Calcium Level 8.5 mg/dL (8.5-10.1) Total Bilirubin 0.4 mg/dL (0.2-1.0) Aspartate Amino Transf (AST/SGOT) 12 U/L (15-37) Alanine Aminotransferase (ALT/SGPT) 10 U/L (14-59) Alkaline Phosphatase 88 U/L (46-116) Total Protein 5.5 g/dL (6.4-8.2) Albumin 2.2 g/dL (3.4-5.0) Albumin/Globulin Ratio 0.7 (1.0-1.7) O2 Saturation 96 % (92-99) Arterial Blood pH 7.36 (7.35-7.45) Arterial Blood pCO2 at Patient Temp 47 mmHg (35-46) Arterial Blood pO2 at Patient Temp 95 mmHg (65-108) Arterial Blood HCO3 26 mmol/L (21-28) Arterial Blood Base Excess 0 mmol/L (-3-3) FiO2 40 Test 01/07/19 04:35 3/29/19 07:20 White Blood Count 18.2 x10^3/uL (4.0-11.0) Red Blood Count 3.85 x10^6/uL (3.50-5.40) Hemoglobin 11.1 g/dL (12.0-15.5) Hematocrit 34.9 % (36.0-47.0) Mean Corpuscular Volume 91 fL (79-100) Mean Corpuscular Hemoglobin 29 pg (25-35) Mean Corpuscular Hemoglobin Concent 32 g/dL (31-37) Red Cell Distribution Width 15.0 % (11.5-14.5) Platelet Count 181 x10^3/uL (140-400) Neutrophils (%) (Auto) 83 % (31-73) Lymphocytes (%) (Auto) 7 % (24-48) Monocytes (%) (Auto) 7 % (0-9) Eosinophils (%) (Auto) 4 % (0-3) Basophils (%) (Auto) 1 % (0-3) Neutrophils # (Auto) 15.0 x10^3uL (1.8-7.7) Lymphocytes # (Auto) 1.3 x10^3/uL (1.0-4.8) Monocytes # (Auto) 1.2 x10^3/uL (0.0-1.1) Eosinophils # (Auto) 0.6 x10^3/uL (0.0-0.7) Basophils # (Auto) 0.1 x10^3/uL (0.0-0.2) Prothrombin Time 14.5 SEC (11.7-14.0) Prothromb Time International Ratio 1.2 (0.8-1.1) Sodium Level 142 mmol/L (136-145) Potassium Level 3.1 mmol/L (3.5-5.1) Chloride Level 107 mmol/L (98-107) Carbon Dioxide Level 27 mmol/L (21-32) Anion Gap 8 (6-14) Blood Urea Nitrogen 14 mg/dL (7-20) Creatinine 0.9 mg/dL (0.6-1.0) Estimated GFR (Cockcroft-Gault) 74.1 BUN/Creatinine Ratio 16 (6-20) Glucose Level 168 mg/dL (70-99) Calcium Level 8.5 mg/dL (8.5-10.1) Magnesium Level 1.8 mg/dL (1.8-2.4) Total Bilirubin 0.4 mg/dL (0.2-1.0) Aspartate Amino Transf (AST/SGOT) 14 U/L (15-37) Alanine Aminotransferase (ALT/SGPT) 11 U/L (14-59) Alkaline Phosphatase 92 U/L (46-116) Total Protein 6.1 g/dL (6.4-8.2) Albumin 2.2 g/dL (3.4-5.0) Albumin/Globulin Ratio 0.6 (1.0-1.7) O2 Saturation 98 % (92-99) Arterial Blood pH 7.41 (7.35-7.45) Arterial Blood pCO2 at Patient Temp 40 mmHg (35-46) Arterial Blood pO2 at Patient Temp 107 mmHg (65-108) Arterial Blood HCO3 25 mmol/L (21-28) Arterial Blood Base Excess 0 mmol/L (-3-3) FiO2 40 Laboratory Tests Test 01/07/19 04:35 01/07/19 07:20 White Blood Count 18.2 x10^3/uL (4.0-11.0) Red Blood Count 3.85 x10^6/uL (3.50-5.40) Hemoglobin 11.1 g/dL (12.0-15.5) Hematocrit 34.9 % (36.0-47.0) Mean Corpuscular Volume 91 fL (79-100) Mean Corpuscular Hemoglobin 29 pg (25-35) Mean Corpuscular Hemoglobin Concent 32 g/dL (31-37) Red Cell Distribution Width 15.0 % (11.5-14.5) Platelet Count 181 x10^3/uL (140-400) Neutrophils (%) (Auto) 83 % (31-73) Lymphocytes (%) (Auto) 7 % (24-48) Monocytes (%) (Auto) 7 % (0-9) Eosinophils (%) (Auto) 4 % (0-3) Basophils (%) (Auto) 1 % (0-3) Neutrophils # (Auto) 15.0 x10^3uL (1.8-7.7) Lymphocytes # (Auto) 1.3 x10^3/uL (1.0-4.8) Monocytes # (Auto) 1.2 x10^3/uL (0.0-1.1) Eosinophils # (Auto) 0.6 x10^3/uL (0.0-0.7) Basophils # (Auto) 0.1 x10^3/uL (0.0-0.2) Prothrombin Time 14.5 SEC (11.7-14.0) Prothromb Time International Ratio 1.2 (0.8-1.1) Sodium Level 142 mmol/L (136-145) Potassium Level 3.1 mmol/L (3.5-5.1) Chloride Level 107 mmol/L (98-107) Carbon Dioxide Level 27 mmol/L (21-32) Anion Gap 8 (6-14) Blood Urea Nitrogen 14 mg/dL (7-20) Creatinine 0.9 mg/dL (0.6-1.0) Estimated GFR (Cockcroft-Gault) 74.1 BUN/Creatinine Ratio 16 (6-20) Glucose Level 168 mg/dL (70-99) Calcium Level 8.5 mg/dL (8.5-10.1) Magnesium Level 1.8 mg/dL (1.8-2.4) Total Bilirubin 0.4 mg/dL (0.2-1.0) Aspartate Amino Transf (AST/SGOT) 14 U/L (15-37) Alanine Aminotransferase (ALT/SGPT) 11 U/L (14-59) Alkaline Phosphatase 92 U/L (46-116) Total Protein 6.1 g/dL (6.4-8.2) Albumin 2.2 g/dL (3.4-5.0) Albumin/Globulin Ratio 0.6 (1.0-1.7) O2 Saturation 98 % (92-99) Arterial Blood pH 7.41 (7.35-7.45) Arterial Blood pCO2 at Patient Temp 40 mmHg (35-46) Arterial Blood pO2 at Patient Temp 107 mmHg (65-108) Arterial Blood HCO3 25 mmol/L (21-28) Arterial Blood Base Excess 0 mmol/L (-3-3) FiO2 40 Microbiology 01/04/19 Blood Culture - Preliminary, Resulted NO GROWTH AFTER 2 DAYS 01/06/19 - Final, Complete 01/04/19 Urine Culture - Final, Complete 01/04/19 Urine Culture Result 1 (SARAH BETH) - Final, Complete Medications Current Medications Etomidate (Amidate) 10 mg 1X ONCE IV Last administered on 01/04/19 11:39; Start 01/04/19 at 12:00; Stop 01/04/19 at 12:01; Status DC Succinylcholine Chloride (Anectine) 50 mg 1X ONCE IV Last administered on 01/04at 11:39; Start 01/04/19 at 12:00; Stop 01/04/19 at 12:01; Status DC Fentanyl Citrate (Fentanyl 2ml Vial) 25 mcg PRN Q1HR PRN IV SEE COMMENTS; Start 01/04/19 at 11:45 Fentanyl Citrate (Fentanyl 2ml Vial) 50 mcg PRN Q1HR PRN IV SEE COMMENTS Last administered on 01/06/19at 23:42; Start 01/04/19 at 11:45 Chlorhexidine Gluconate (Peridex) 15 ml BID MM Last administered on 01/07/19at 08:17; Start 01/04/19 at 21:00 Famotidine (Pepcid Vial) 20 mg BID IVP Last administered on 01/05/19at 09:04; Start 01/04/19 at 21:00; Stop 01/05/19 at 10:32; Status DC Morphine Sulfate (Morphine Sulfate) 2 mg PRN Q1HR PRN IV SEE COMMENTS. Last administered on 01/07/19at 10:01; Start 01/04/19 at 11:45 Midazolam HCl 100 ml @ 0 mls/hr CONT PRN IV SEE PROTOCOL Last administered on at 01:01; Start 01/04/19 at 12:00 Midazolam HCl (Versed) 5 mg STK-MED ONCE .ROUTE ; Start 01/04/19 at 12:10; Stop 01/04/19 at 12:11; Status DC Albuterol/ Ipratropium (Duoneb) 6 ml 1X ONCE NEB Last administered on at 13:12; Start 01/04/19 at 12:30; Stop 01/04/19 at 12:31; Status DC Methylprednisolone Sodium Succinate (SOLU-Medrol 125MG VIAL) 125 mg 1X ONCE IV Last administered on 01/04/19at 12:44; Start 01/04/19 at 12:30; Stop 01/04/19 at 12:31; Status DC Midazolam HCl (Versed) 5 mg STK-MED ONCE .ROUTE ; Start 01/04/19 at 12:40; Stop 01/04/19 at 12:41; Status DC Sodium Chloride 1,000 ml @ 125 mls/hr Q8H IV Last administered on 01/05/19at 06 :21; Start 01/04/19 at 14:00; Stop 01/05/19 at 13:59; Status DC Albuterol/ Ipratropium (Duoneb) 3 ml RTQID NEB Last administered on 01/05/19at 15:53; Start 01/04/19 at 16:00; Stop 01/05/19 at 15:59; Status DC Midazolam HCl (Versed) 5 mg 1X ONCE IV Last administered on 01/04/19at 11:57; Start 01/04/19 at 13:30; Stop 01/04/19 at 13:31; Status DC Midazolam HCl (Versed) 5 mg 1X ONCE IV Last administered on 01/04/19at 14:00; Start 01/04/19 at 15:15; Stop 01/04/19 at 15:16; Status DC Levofloxacin/ Dextrose 100 ml @ 100 mls/hr 1X ONCE IV Last administered on at 18:34; Start 01/04/19 at 18:00; Stop 01/04/19 at 18:59; Status DC Sodium Chloride 1,000 ml @ 1,710 mls/hr Q36M IV Last administered on at 20:39; Start 01/04/19 at 18:30; Stop 01/04/19 at 19:30; Status DC Sodium Chloride 500 ml @ 1,000 mls/hr PRN Q30MIN PRN IV SEE COMMENTS; Start at 18:00 Vancomycin HCl (Vanco Per Pharmacy) 1 each PRN DAILY PRN MC SEE COMMENTS Last administered on 01/04/19at 20:07; Start 01/04/19 at 18:00; Stop 01/05/19 at 07:48 ; Status DC Levofloxacin/ Dextrose 50 ml @ 50 mls/hr Q24H IV ; Start 01/05/19 at 18:00; Stop 01/05/19 at 18:00; Status DC Vancomycin HCl 1 gm/Sodium Chloride 250 ml @ 250 mls/hr 1X ONCE IV Last administered on 01/04/19at 19:42; Start 01/04/19 at 19:00; Stop 01/04/19 at 19:59 ; Status DC Vancomycin HCl 750 mg/Sodium Chloride 250 ml @ 250 mls/hr Q24H IV ; Start 01/05 at 20:00; Stop 01/05/19 at 20:00; Status DC Vancomycin HCl (Vancomycin Trough Level) 1 each 1X ONCE MC ; Start 01/06/19 at 19:30; Stop 01/06/19 at 19:30; Status DC Furosemide (Lasix) 20 mg 1X ONCE IVP Last administered on 01/05/19at 03:19; Start 01/05/19 at 02:45; Stop 01/05/19 at 02:46; Status DC Aspirin (Andrea Aspirin) 325 mg DAILYWBKFT PO Last administered on 01/07/19 08: 20; Start 01/05/19 at 11:00 Atorvastatin Calcium (Lipitor) 40 mg HS PO Last administered on 01/06/19at 21:30 ; Start 01/05/19 at 21:00 Carvedilol (Coreg) 6.25 mg BIDWMEALS PO Last administered on 01/07/19 08:20; Start 01/05/19 at 11:00 Clopidogrel Bisulfate (Plavix) 75 mg DAILYWBKFT PO Last administered on 08:17; Start 01/05/19 at 11:00 Lisinopril (Prinivil) 2.5 mg DAILY PO Last administered on 01/07/19 08:19; Start 01/05/19 at 11:00 Famotidine (Pepcid Vial) 20 mg DAILY IVP Last administered on 01/07/19at 08:18; Start 01/06/19 at 09:00 Piperacillin Sod/ Tazobactam Sod 3.375 gm/Sodium Chloride 50 ml @ 100 mls/hr Q6HRS IV Last administered on 01/07/19at 06:38; Start 01/05/19 at 11:00 Enoxaparin Sodium (Lovenox Per Pharmacy Treatment Dosing) 1 each PRN DAILY PRN MC SEE COMMENTS; Start 01/05/19 at 10:45; Stop 01/05/19 at 14:06; Status DC Enoxaparin Sodium (Lovenox 60mg Syringe) 50 mg DAILY SQ Last administered on at 10:58; Start 01/05/19 at 11:30; Stop 01/05/19 at 14:08; Status DC Fentanyl Citrate 30 ml @ 0 mls/hr CONT PRN IV SEE PROTOCOL Last administered on 01/06/19at 09:54; Start 01/05/19 at 12:15 Chlorhexidine Gluconate (Peridex) 15 ml BID MM ; Start 01/05/19 at 21:00; Status UNV Enoxaparin Sodium (Lovenox 30mg Syringe) 30 mg Q24H SQ Last administered on at 09:58; Start 01/06/19 at 09:00 Albuterol/ Ipratropium (Duoneb) 3 ml RTQID NEB Last administered on 01/07/19 07:19; Start 01/05/19 at 16:00 Sodium Chloride 1,000 ml @ 125 mls/hr Q8H IV Last administered on 01/07/19 04 :28; Start 01/05/19 at 22:00 Sodium Chloride 500 ml @ 500 mls/hr 1X ONCE IV ; Start 01/05/19 at 22:00; Stop 01/05/19 at 22:59; Status DC Furosemide (Lasix) 20 mg DAILY PO Last administered on 01/07/19at 08:21; Start 01/06/19 at 15:00 Potassium Chloride (KCl Oral Soln) 40 meq 1X ONCE PEG Last administered on at 08:17; Start 01/07/19 at 07:30; Stop 01/07/19 at 07:31; Status DC Active Scripts Active Clopidogrel (Clopidogrel Bisulfate) 75 Mg Tablet 75 Mg PO DAILYWBKFT 30 Days Lasix (Furosemide) 20 Mg Tablet 1 Tab PO DAILY Proair Hfa Inhaler (Albuterol Sulfate) 8.5 Gm Hfa.aer.ad 1 Puff INH PRN Q6HRS PRN 14 Days Zofran (Ondansetron Hcl) 4 Mg Tablet 1 Tab PO Q8HRS PRN Reported Alprazolam 0.25 Mg Tablet 1 Tab PO TID Flovent 110MCG Hfa (Fluticasone Propionate) 12 Gm Aer.w.adap 2 Puff IH BID Spironolactone 25 Mg Tablet 1 Tab PO DAILY Protonix (Pantoprazole Sodium) 20 Mg Tablet.dr 40 Mg PO DAILY Oxycodone Hcl 5 Mg/5 Ml Solution 5 Mg PO PRN Q4HRS PRN Lisinopril 2.5 Mg Tablet 2.5 Mg PO DAILY Guaifenesin 600 Mg Tablet.er 600 Mg PO BID Sertraline Hcl 50 Mg Tablet 50 Mg PO DAILY Tramadol Hcl 50 Mg Tablet 1 Tab PO PRN Q6HRS PRN Duoneb 0.5-3(2.5) Mg/3 Ml (Albuterol/Ipratropium) 3 Ml Ampul.neb 3 Ml NEB QID Atorvastatin Calcium 40 Mg Tablet 40 Mg PO HS Carvedilol (Carvedilol) 6.25 Mg Tablet 6.25 Mg PO BIDWMEALS Vitamin D (Cholecalciferol (Vitamin D3)) 2,000 Unit Capsule 2,000 Unit PO BIDAFTMEAL Aspirin Ec (Aspirin) 325 Mg Tablet.dr 325 Mg PO DAILY Vitals/I & O Vital Sign - Last 24 Hours 01/06/19 01/06/19 01/06/19 01/06/19 11:00 12:00 12:00 12:33 Pulse 74 74 Resp 16 22 B/P (MAP) 90/45 (60) 134/71 (92) Pulse Ox 100 100 97 O2 Delivery Ventilator Mechanical Ventilator Ventilator Ventilator 01/06/19 01/06/19 01/06/19 01/06/19 13:00 14:00 15:00 16:00 Pulse 74 82 86 Resp 16 16 16 B/P (MAP) 103/54 (70) 113/53 (73) 129/66 (87) Pulse Ox 100 100 100 O2 Delivery Ventilator Ventilator Ventilator Mechanical Ventilator 01/06/19 01/06/19 01/06/19 01/06/19 16:00 16:40 16:48 16:48 Pulse 84 84 Resp 17 B/P (MAP) 106/57 (73) 106/57 Pulse Ox 100 97 97 O2 Delivery Ventilator Ventilator Ventilator 01/06/19 01/06/19 01/06/19 01/06/19 17:08 18:02 19:00 19:56 Pulse 79 83 84 Resp 16 16 17 B/P (MAP) 111/60 (77) 115/68 (84) 129/72 (91) Pulse Ox 100 100 100 97 O2 Delivery Ventilator Ventilator Ventilator Ventilator 01/06/19 01/06/19 01/06/19 01/06/19 20:00 20:00 21:00 21:52 Temp 100.0 100.0 Pulse 92 97 Resp 17 17 B/P (MAP) 157/85 (109) 127/66 (86) Pulse Ox 100 100 97 O2 Delivery Mechanical Ventilator Ventilator Ventilator Ventilator 01/06/19 01/06/19 01/06/19 01/06/19 22:00 23:00 23:36 23:42 Pulse 87 89 Resp 17 17 2 B/P (MAP) 137/72 (93) 132/61 (84) Pulse Ox 100 100 97 100 O2 Delivery Ventilator Ventilator Ventilator Ventilator 01/06/19 01/07/19 01/07/19 01/07/19 23:59 00:02 00:12 01:00 Temp 100.4 98.7 100.4 98.7 Pulse 87 90 Resp 17 20 17 B/P (MAP) 141/80 (100) 180/100 (126) Pulse Ox 100 100 100 O2 Delivery Ventilator Mechanical Ventilator Ventilator Ventilator O2 Flow Rate 15.0 01/07/19 01/07/19 01/07/19 01/07/19 01:34 02:00 03:00 03:18 Pulse 87 86 Resp 17 17 B/P (MAP) 153/75 (101) 119/60 (79) Pulse Ox 100 100 100 100 O2 Delivery Ventilator Ventilator Ventilator Ventilator 01/07/19 01/07/19 01/07/19 01/07/19 04:00 04:00 05:00 05:42 Temp 98.5 98.5 Pulse 85 83 Resp 17 17 B/P (MAP) 130/65 (86) 145/65 (91) Pulse Ox 100 100 100 O2 Delivery Mechanical Ventilator Ventilator Ventilator Ventilator 01/07/19 01/07/19 01/07/19 01/07/19 06:00 07:00 07:19 08:00 Temp 99.0 99.0 Pulse 92 82 Resp 17 17 B/P (MAP) 151/75 (100) 144/62 (89) Pulse Ox 100 100 100 O2 Delivery Ventilator Ventilator Ventilator Mechanical Ventilator 01/07/19 01/07/19 01/07/19 01/07/19 08:00 08:19 08:20 09:00 Pulse 78 80 80 88 Resp 16 16 B/P (MAP) 121/79 (93) 121/79 121/79 125/54 (77) Pulse Ox 100 100 O2 Delivery Ventilator Ventilator 01/07/19 10:01 Resp 33 Pulse Ox 100 O2 Delivery Ventilator Intake and Output 01/06/19 01/06/19 01/07/19 15:00 23:00 07:00 Intake Total 51 ml 2021 ml 777 ml Output Total 420 ml 1385 ml 1500 ml Balance -369 ml 636 ml -723 ml Nutrition Consultation Dietary Evaluation: Recommendations by RD: Increase Calorie Intake Comments: Recommend osmolite 1.2 starting at 20mL/hr, increasing 10mL @ 8hr until goal rate of 45mL/hr w/ 50mL water flushes Q 4hr. Expected Outcomes/Goals: TF to meet >75% estimated needs Interpretation of weight loss: >20% in 1 year Malnutrition Findings: Body Fat Depletion (Non Severe: Mild Depletion Weight Status: Underweight BAYLEE SIMS MD Jan 07, 2019 10:26
--- NOTE | 2019-01-07 11:12 | NUR ---
[id number] Awakening, opens eyes but does not follow command. Informed of "breathing trial" later today. AM ABG good( see documentation). Q 2H turn effective as evidenced by intact skin integrety. Tolerates tube feed/water bolus-residual checks at 60-100. [id number] Cpap trial started@0920 w 14/5 setting allowing patient to pull 350-425+ volume. Initial RR 15 , SBP 154,HR 80. Trial terminated ,intolerance as evidenced by RR >30,[id number],HR 118. Returned to vent/previous settings. Difficulty 'calming.' MS followed 30 min later w prn Fentanyl assisted in decreasing anxiety,VS. Will attempt trial again later
[2019-01-07] MEDS: fentaNYL PF VIAL 100 MCG/2 ML VIAL IV PRN ×3 (12:26→21:23)
[2019-01-07] MEDS ORDERED: ATROPINE 0.5 MG/5 ML DISP.SYRINGE. IV PRN (14:15)
[2019-01-07] MEDS ORDERED: IV NORMAL SALINE 500ML BAG 500 ML IV PRN (14:15)
[2019-01-07] MEDS ORDERED: hydrALAZINE 20 MG/ML VIAL. IVP PRN (14:30)
[2019-01-07] MEDS ORDERED: FUROSEMIDE 20 MG/2 ML VIAL. IVP ONE (14:30)
--- NOTE | 2019-01-07 14:30 | PDOC ---
CARDIO Progress Notes Date and Time Date of Service 01/07/2019 Time of Evaluation 1330 Subjective Subjective: Other (intbuated) Vitals Vitals Vital Signs Date Time Temp Pulse Resp B/P (MAP) Pulse Ox O2 Delivery O2 Flow Rate FiO2 01/07/19 13:57 99 15.0 01/07/19 11:52 Mechanical Ventilator 01/07/19 10:35 29 01/07/19 10:30 106 189/104 (132) 01/07/19 07:00 99.0 99.0 Weight Weight [ ] Input and Output Intake and Output Intake and Output 01/07/19 07:00 Intake Total 2849 ml Output Total 3305 ml Balance -456 ml Intake Oral 0 ml IV Total 2476 ml Tube Feeding 273 ml Blood Product IV Normal Saline Flush 100 ml Output Urine Total 2825 ml Gastric Drainage Total 480 ml Laboratory Labs Laboratory Tests Test 01/07/19 04:35 01/07/19 07:20 White Blood Count 18.2 x10^3/uL (4.0-11.0) Red Blood Count 3.85 x10^6/uL (3.50-5.40) Hemoglobin 11.1 g/dL (12.0-15.5) Hematocrit 34.9 % (36.0-47.0) Mean Corpuscular Volume 91 fL (79-100) Mean Corpuscular Hemoglobin 29 pg (25-35) Mean Corpuscular Hemoglobin Concent 32 g/dL (31-37) Red Cell Distribution Width 15.0 % (11.5-14.5) Platelet Count 181 x10^3/uL (140-400) Neutrophils (%) (Auto) 83 % (31-73) Lymphocytes (%) (Auto) 7 % (24-48) Monocytes (%) (Auto) 7 % (0-9) Eosinophils (%) (Auto) 4 % (0-3) Basophils (%) (Auto) 1 % (0-3) Neutrophils # (Auto) 15.0 x10^3uL (1.8-7.7) Lymphocytes # (Auto) 1.3 x10^3/uL (1.0-4.8) Monocytes # (Auto) 1.2 x10^3/uL (0.0-1.1) Eosinophils # (Auto) 0.6 x10^3/uL (0.0-0.7) Basophils # (Auto) 0.1 x10^3/uL (0.0-0.2) Prothrombin Time 14.5 SEC (11.7-14.0) Prothromb Time International Ratio 1.2 (0.8-1.1) Sodium Level 142 mmol/L (136-145) Potassium Level 3.1 mmol/L (3.5-5.1) Chloride Level 107 mmol/L (98-107) Carbon Dioxide Level 27 mmol/L (21-32) Anion Gap 8 (6-14) Blood Urea Nitrogen 14 mg/dL (7-20) Creatinine 0.9 mg/dL (0.6-1.0) Estimated GFR (Cockcroft-Gault) 74.1 BUN/Creatinine Ratio 16 (6-20) Glucose Level 168 mg/dL (70-99) Calcium Level 8.5 mg/dL (8.5-10.1) Magnesium Level 1.8 mg/dL (1.8-2.4) Total Bilirubin 0.4 mg/dL (0.2-1.0) Aspartate Amino Transf (AST/SGOT) 14 U/L (15-37) Alanine Aminotransferase (ALT/SGPT) 11 U/L (14-59) Alkaline Phosphatase 92 U/L (46-116) Total Protein 6.1 g/dL (6.4-8.2) Albumin 2.2 g/dL (3.4-5.0) Albumin/Globulin Ratio 0.6 (1.0-1.7) O2 Saturation 98 % (92-99) Arterial Blood pH 7.41 (7.35-7.45) Arterial Blood pCO2 at Patient Temp 40 mmHg (35-46) Arterial Blood pO2 at Patient Temp 107 mmHg (65-108) Arterial Blood HCO3 25 mmol/L (21-28) Arterial Blood Base Excess 0 mmol/L (-3-3) FiO2 40 Microbiology Micro Microbiology 01/04/19 Blood Culture - Preliminary, Resulted NO GROWTH AFTER 2 DAYS 01/06/19 - Final, Complete 01/04/19 Urine Culture - Final, Complete 01/04/19 Urine Culture Result 1 (SARAH BETH) - Final, Complete Physical Exam HEENT: Neck Supple W Full Motion Chest: Symmetric LUNGS: Other (intubated) Heart: S1S2, RRR (100% V paced with underlying SR, distant heart tones) Abdomen: Soft N/T Extremities: No Edema Neurology: other (sedated) Assessment Assessment 1. Acute on chronic respiratory failure secondary, multifactorial, not ready to wean. Vent 2. Mild acute on chronic systolic CHF 3. NSTEMI: trop highest 0.26. Cardiac cath 11/12/18 at without intervention as noted above. 4. CAD: s/p PCI/stent to RCA in 2014. 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 No intervention performed. 5. Severe cardiomyopathy: LVEF at 20-25% 6. Leukocytosis, lactic acidosis, fevers. probable acute on chronic aspiration. Bronch today 7. AECOPD 8. Possible opioid overdose; on OxyContin for chronic pain 9. AICD in situ; ([employer]). s/p upgrade to [employer] last month with epicardial lead placement by CTS. Recent device interrogation without any acute abnormalities 10. HTN: mildly elevated 11. BENJA 12. Moderate-severe MR: not a surgical candidate 13. Chronic dysphagia; s/p PEG 14. HTN: labile today Recommendations Lasix therapy. Hydralazine IV PRN Secondary prevention including DAPT with ASA and Plavix Optimization therapy Supportive care from a CV standpoint Lung optimization as per JARVIS Suarez [employer]ICE Jan 07, 2019 14:30
--- NOTE | 2019-01-07 18:41 | NUR ---
To remain on vent per pulmonary w repeat trial in am. Mild sedative started . More comfortable . Fent x2 prior to precidex. Cont to monitor and w POC
[2019-01-07] MEDS: DEXMEDETOMIDINE 200 MCG in IV NORMAL SALINE 50ML 48 ML IV PRN ×2 (19:06→23:39)
[2019-01-07] MEDS: ATORVASTATIN CALCIUM 40 MG TABLET. PO SCH (21:10)
[2019-01-08] VITALS (24 sets, daily range): BP systolic 99–174; BP diastolic 45–91
[2019-01-08] MEDS: fentaNYL PF VIAL 100 MCG/2 ML VIAL IV PRN ×8 (01:32→21:27)
[2019-01-08] MEDS: PIPERACILLIN/TAZOBACTAM 3.375 GM in IV NORMAL SALINE 50ML 50 ML IV SCH ×4 (01:33→18:17)
[2019-01-08] MEDS: DEXMEDETOMIDINE 200 MCG in IV NORMAL SALINE 50ML 48 ML IV PRN ×7 (03:23→22:15)
[2019-01-08 07:13] LABS: ALBUMIN 1.7 g/dL (3.4-5.0); ALBUMIN/GLOBULIN RATIO 0.4 (1.0-1.7); CALCIUM 8.9 mg/dL (8.5-10.1); CREATININE 0.6 mg/dL (0.6-1.0); GFR 118.2; POTASSIUM 3.4 mmol/L (3.5-5.1); TOTAL BILIRUBIN 0.2 mg/dL (0.2-1.0); TOTAL PROTEIN 5.5 g/dL (6.4-8.2)
[2019-01-08 07:15] LABS: PROTHROMBIN TIME PATIENT 14.1 SEC (11.7-14.0)
[2019-01-08 07:22] LABS: BASO % 0 % (0-3); EOS # 2.4 x10^3/uL (0.0-0.7); EOS % 18 % (0-3); HEMATOCRIT 31.2 % (36.0-47.0); HEMOGLOBIN 10.1 g/dL (12.0-15.5); LYMPH # 1.5 x10^3/uL (1.0-4.8); LYMPH % 11 % (24-48); MEAN CORPUSCULAR HEMOGLOBIN 30 pg (25-35); MEAN CORPUSCULAR HGB CONC 33 g/dL (31-37); MEAN CORPUSCULAR VOLUME 91 fL (79-100); MONO # 0.9 x10^3/uL (0.0-1.1); MONO % 7 % (0-9); NEUT # 8.5 x10^3uL (1.8-7.7); NEUT % 64 % (31-73); PLATELET COUNT 159 x10^3/uL (140-400); RED BLOOD COUNT 3.42 x10^6/uL (3.50-5.40); RED CELL DISTRIBUTION WIDTH 14.8 % (11.5-14.5); WHITE BLOOD COUNT 13.2 x10^3/uL (4.0-11.0)
[2019-01-08] MEDS: IPRATRPIUM/ALBUTEROL 0.5/2.5MG 3 ML NEBU. NEB SCH ×4 (07:32→20:25)
[2019-01-08 07:50] LABS: BASE EXCESS ABG 3 mmol/L (-3-3); HCO3 ABG 29 mmol/L (21-28); PCO2 ABG 49 mmHg (35-46); PO2 ABG 107 mmHg (65-108); SAT O2 ABG 97 % (92-99)
[2019-01-08 07:53] LABS: FIO2 ABG 40
--- NOTE | 2019-01-08 08:42 | PDOC ---
Infectious Disease Note Subjective Subjective Remains intubated, FiO2 40% No fevers last 24 hours ROS ROS Unobtainable, intubated Vital Sign Vital Signs Vital Signs Date Time Temp Pulse Resp B/P (MAP) Pulse Ox O2 Delivery O2 Flow Rate FiO2 01/08/19 07:32 100 Ventilator 01/08/19 05:00 60 16 139/74 (95) 01/08/19 04:00 98.0 98.0 01/07/19 14:30 15.0 Physical Exam PHYSICAL EXAM GENERAL: Awake, intubated, mitts HEENT: ELEONORA, ETT LUNGS: clear HEART: S1, S2, paced ABDOMEN: Nondistended, soft, no grimace or gurding to palpation, PEG : [place] EXTREMITIES: No edema, no cyanosis. DERMATOLOGIC: Warm, dry. No generalized rash. PIV Labs Lab Laboratory Tests Test 01/08/19 06:10 01/08/19 07:40 White Blood Count 13.2 x10^3/uL (4.0-11.0) Red Blood Count 3.42 x10^6/uL (3.50-5.40) Hemoglobin 10.1 g/dL (12.0-15.5) Hematocrit 31.2 % (36.0-47.0) Mean Corpuscular Volume 91 fL (79-100) Mean Corpuscular Hemoglobin 30 pg (25-35) Mean Corpuscular Hemoglobin Concent 33 g/dL (31-37) Red Cell Distribution Width 14.8 % (11.5-14.5) Platelet Count 159 x10^3/uL (140-400) Neutrophils (%) (Auto) 64 % (31-73) Lymphocytes (%) (Auto) 11 % (24-48) Monocytes (%) (Auto) 7 % (0-9) Eosinophils (%) (Auto) 18 % (0-3) Basophils (%) (Auto) 0 % (0-3) Neutrophils # (Auto) 8.5 x10^3uL (1.8-7.7) Lymphocytes # (Auto) 1.5 x10^3/uL (1.0-4.8) Monocytes # (Auto) 0.9 x10^3/uL (0.0-1.1) Eosinophils # (Auto) 2.4 x10^3/uL (0.0-0.7) Basophils # (Auto) 0.0 x10^3/uL (0.0-0.2) Prothrombin Time 14.1 SEC (11.7-14.0) Prothromb Time International Ratio 1.1 (0.8-1.1) Sodium Level 142 mmol/L (136-145) Potassium Level 3.4 mmol/L (3.5-5.1) Chloride Level 106 mmol/L (98-107) Carbon Dioxide Level 28 mmol/L (21-32) Anion Gap 8 (6-14) Blood Urea Nitrogen 14 mg/dL (7-20) Creatinine 0.6 mg/dL (0.6-1.0) Estimated GFR (Cockcroft-Gault) 118.2 BUN/Creatinine Ratio 23 (6-20) Glucose Level 167 mg/dL (70-99) Calcium Level 8.9 mg/dL (8.5-10.1) Total Bilirubin 0.2 mg/dL (0.2-1.0) Aspartate Amino Transf (AST/SGOT) 11 U/L (15-37) Alanine Aminotransferase (ALT/SGPT) 9 U/L (14-59) Alkaline Phosphatase 77 U/L (46-116) Total Protein 5.5 g/dL (6.4-8.2) Albumin 1.7 g/dL (3.4-5.0) Albumin/Globulin Ratio 0.4 (1.0-1.7) O2 Saturation 97 % (92-99) Arterial Blood pH 7.39 (7.35-7.45) Arterial Blood pCO2 at Patient Temp 49 mmHg (35-46) Arterial Blood pO2 at Patient Temp 107 mmHg (65-108) Arterial Blood HCO3 29 mmol/L (21-28) Arterial Blood Base Excess 3 mmol/L (-3-3) FiO2 40 Micro 01/04/19 Blood Culture - Preliminary, Resulted NO GROWTH AFTER 3 DAYS URINE CULTURE RES 1 Final No growth BRONCHIAL GRAM STAIN Final WBCS MANY RBCS MANY ORGANISMS NONE SEEN Objective Assessment Febrile illness source resp resolved cults neg so far Leucocytosis trending upwards,? reactive Lactic acidosis resolved PENICILLIN allergy, but has tolerated amoxicillin per chart review Acute resp failure appears multifactorial, aspiration - s/p bronchoscopy, 01/06 cultures pending Overdose on OxyContin. H/O Chronic interstitial lung disease. COPD h/o severe Cardiomyopathy, EF 10-15 % CAD/CHF Depression Chronic dysphagia; s/p PEG tube for chronic vomiting AICD HTN Severe MR,not a surgical candidate Plan Plan of Care Adelinesyteresita since 01/05 f/u bronch c/s monitor wbc Cont supportive care D/W RN Attending Co-Sign Attending Co-Sign The patient was seen and interviewed as well as examined at the bedside. The chart was reviewed. The case was discussed. Agree with the plan of care. PAVEL ZEE APRN Jan 08, 2019 08:42 TAMIKO GUZMÁN MD Jan 08, 2019 12:20
--- NOTE | 2019-01-08 10:16 | PDOC ---
PROGRESS NOTES History of Present Illness History of Present Illness Assessment/Plan Assessment/Plan IMPRESSION ACUTE RESP FAILURE possible oxycontin accidental overdose HYPOKALEMIA CAD: s/p PCI/stent to RCA in 2015. 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 No intervention performed. Acute on chronic systolic heart failure. Ejection fraction of 10-15%. . Followed by the heart failure clinic. AE COPD and possible PNA. CONSULT pulmonary. bronch 01/07 Severe cardiomyopathy: LVEF at 10-15% AICD in situ; HTN: Severe MR: not a surgical candidate Chronic dysphagia; s/p PEG tube for chronic vomiting AICD. Upgraded // at with epicardial lead placement by surgery. MILD ELEVATION OF TROPONIN I The systolic function is severely impaired. The Ejection Fraction is 20-25%. There is global hypokinesis of the left ventricle. There is mild to moderate concentric left ventricular hypertrophy. plan BRONCH 01/07 CONT icu monitoring vent support cardiology consult frequent labs dvt prophylaxis ID CONSULT PULM following SEPSIS PROTOCOL REPLACE K [id number] 01/08 35 min cc time Vitals Vitals Vital Signs Date Time Temp Pulse Resp B/P (MAP) Pulse Ox O2 Delivery O2 Flow Rate FiO2 01/08/19 08:38 28 100 15.0 01/08/19 07:32 Ventilator 01/08/19 05:00 60 139/74 (95) 01/08/19 04:00 98.0 98.0 Physical Exam Physical Exam GENERAL: Awake, intubated, mitts HEENT: ELEONORA, ETT LUNGS: clear HEART: S1, S2, paced ABDOMEN: Nondistended, soft, no grimace or gurding to palpation, PEG : [place] EXTREMITIES: No edema, no cyanosis. DERMATOLOGIC: Warm, dry. No generalized rash. PIV PEEP 5 T-tube trial in AM General: Cooperative, No acute distress, Other (CONFUSED, ENCEPHALOPATHIC) Heart: Regular rate, Other (100% v-paced with underlying SR, distant heart tones) Lungs: Crackles, Other (COARSE) Abdomen: Normal bowel sounds, Soft, No tenderness, No hepatosplenomegaly, No masses Extremities: No cyanosis, No edema, Normal pulses Skin: No significant lesion Labs LABS Laboratory Tests Test 01/08/19 06:10 01/08/19 07:40 White Blood Count 13.2 x10^3/uL (4.0-11.0) Red Blood Count 3.42 x10^6/uL (3.50-5.40) Hemoglobin 10.1 g/dL (12.0-15.5) Hematocrit 31.2 % (36.0-47.0) Mean Corpuscular Volume 91 fL (79-100) Mean Corpuscular Hemoglobin 30 pg (25-35) Mean Corpuscular Hemoglobin Concent 33 g/dL (31-37) Red Cell Distribution Width 14.8 % (11.5-14.5) Platelet Count 159 x10^3/uL (140-400) Neutrophils (%) (Auto) 64 % (31-73) Lymphocytes (%) (Auto) 11 % (24-48) Monocytes (%) (Auto) 7 % (0-9) Eosinophils (%) (Auto) 18 % (0-3) Basophils (%) (Auto) 0 % (0-3) Neutrophils # (Auto) 8.5 x10^3uL (1.8-7.7) Lymphocytes # (Auto) 1.5 x10^3/uL (1.0-4.8) Monocytes # (Auto) 0.9 x10^3/uL (0.0-1.1) Eosinophils # (Auto) 2.4 x10^3/uL (0.0-0.7) Basophils # (Auto) 0.0 x10^3/uL (0.0-0.2) Prothrombin Time 14.1 SEC (11.7-14.0) Prothromb Time International Ratio 1.1 (0.8-1.1) Sodium Level 142 mmol/L (136-145) Potassium Level 3.4 mmol/L (3.5-5.1) Chloride Level 106 mmol/L (98-107) Carbon Dioxide Level 28 mmol/L (21-32) Anion Gap 8 (6-14) Blood Urea Nitrogen 14 mg/dL (7-20) Creatinine 0.6 mg/dL (0.6-1.0) Estimated GFR (Cockcroft-Gault) 118.2 BUN/Creatinine Ratio 23 (6-20) Glucose Level 167 mg/dL (70-99) Calcium Level 8.9 mg/dL (8.5-10.1) Total Bilirubin 0.2 mg/dL (0.2-1.0) Aspartate Amino Transf (AST/SGOT) 11 U/L (15-37) Alanine Aminotransferase (ALT/SGPT) 9 U/L (14-59) Alkaline Phosphatase 77 U/L (46-116) Total Protein 5.5 g/dL (6.4-8.2) Albumin 1.7 g/dL (3.4-5.0) Albumin/Globulin Ratio 0.4 (1.0-1.7) O2 Saturation 97 % (92-99) Arterial Blood pH 7.39 (7.35-7.45) Arterial Blood pCO2 at Patient Temp 49 mmHg (35-46) Arterial Blood pO2 at Patient Temp 107 mmHg (65-108) Arterial Blood HCO3 29 mmol/L (21-28) Arterial Blood Base Excess 3 mmol/L (-3-3) FiO2 40 Assessment and Plan Assessmemt and Plan Problems Medical Problems: (1) COPD exacerbation Status: Acute (2) Respiratory failure with hypoxia Status: Acute Comment Review of Relevant I have reviewed the following items loren (where applicable) has been applied. Labs Laboratory Tests Test 01/07/19 04:35 01/07/19 07:20 01/08/19 06:10 01/08/19 07:40 White Blood Count 18.2 x10^3/uL (4.0-11.0) 13.2 x10^3/uL (4.0-11.0) Red Blood Count 3.85 x10^6/uL (3.50-5.40) 3.42 x10^6/uL (3.50-5.40) Hemoglobin 11.1 g/dL (12.0-15.5) 10.1 g/dL (12.0-15.5) Hematocrit 34.9 % (36.0-47.0) 31.2 % (36.0-47.0) Mean Corpuscular Volume 91 fL (79-100) 91 fL (79-100) Mean Corpuscular Hemoglobin 29 pg (25-35) 30 pg (25-35) Mean Corpuscular Hemoglobin Concent 32 g/dL (31-37) 33 g/dL (31-37) Red Cell Distribution Width 15.0 % (11.5-14.5) 14.8 % (11.5-14.5) Platelet Count 181 x10^3/uL (140-400) 159 x10^3/uL (140-400) Neutrophils (%) (Auto) 83 % (31-73) 64 % (31-73) Lymphocytes (%) (Auto) 7 % (24-48) 11 % (24-48) Monocytes (%) (Auto) 7 % (0-9) 7 % (0-9) Eosinophils (%) (Auto) 4 % (0-3) 18 % (0-3) Basophils (%) (Auto) 1 % (0-3) 0 % (0-3) Neutrophils # (Auto) 15.0 x10^3uL (1.8-7.7) 8.5 x10^3uL (1.8-7.7) Lymphocytes # (Auto) 1.3 x10^3/uL (1.0-4.8) 1.5 x10^3/uL (1.0-4.8) Monocytes # (Auto) 1.2 x10^3/uL (0.0-1.1) 0.9 x10^3/uL (0.0-1.1) Eosinophils # (Auto) 0.6 x10^3/uL (0.0-0.7) 2.4 x10^3/uL (0.0-0.7) Basophils # (Auto) 0.1 x10^3/uL (0.0-0.2) 0.0 x10^3/uL (0.0-0.2) Prothrombin Time 14.5 SEC (11.7-14.0) 14.1 SEC (11.7-14.0) Prothromb Time International Ratio 1.2 (0.8-1.1) 1.1 (0.8-1.1) Sodium Level 142 mmol/L (136-145) 142 mmol/L (136-145) Potassium Level 3.1 mmol/L (3.5-5.1) 3.4 mmol/L (3.5-5.1) Chloride Level 107 mmol/L (98-107) 106 mmol/L (98-107) Carbon Dioxide Level 27 mmol/L (21-32) 28 mmol/L (21-32) Anion Gap 8 (6-14) 8 (6-14) Blood Urea Nitrogen 14 mg/dL (7-20) 14 mg/dL (7-20) Creatinine 0.9 mg/dL (0.6-1.0) 0.6 mg/dL (0.6-1.0) Estimated GFR (Cockcroft-Gault) 74.1 118.2 BUN/Creatinine Ratio 16 (6-20) 23 (6-20) Glucose Level 168 mg/dL (70-99) 167 mg/dL (70-99) Calcium Level 8.5 mg/dL (8.5-10.1) 8.9 mg/dL (8.5-10.1) Magnesium Level 1.8 mg/dL (1.8-2.4) Total Bilirubin 0.4 mg/dL (0.2-1.0) 0.2 mg/dL (0.2-1.0) Aspartate Amino Transf (AST/SGOT) 14 U/L (15-37) 11 U/L (15-37) Alanine Aminotransferase (ALT/SGPT) 11 U/L (14-59) 9 U/L (14-59) Alkaline Phosphatase 92 U/L (46-116) 77 U/L (46-116) Total Protein 6.1 g/dL (6.4-8.2) 5.5 g/dL (6.4-8.2) Albumin 2.2 g/dL (3.4-5.0) 1.7 g/dL (3.4-5.0) Albumin/Globulin Ratio 0.6 (1.0-1.7) 0.4 (1.0-1.7) O2 Saturation 98 % (92-99) 97 % (92-99) Arterial Blood pH 7.41 (7.35-7.45) 7.39 (7.35-7.45) Arterial Blood pCO2 at Patient Temp 40 mmHg (35-46) 49 mmHg (35-46) Arterial Blood pO2 at Patient Temp 107 mmHg (65-108) 107 mmHg (65-108) Arterial Blood HCO3 25 mmol/L (21-28) 29 mmol/L (21-28) Arterial Blood Base Excess 0 mmol/L (-3-3) 3 mmol/L (-3-3) FiO2 40 40 Laboratory Tests Test 01/08/19 06:10 01/08/19 07:40 White Blood Count 13.2 x10^3/uL (4.0-11.0) Red Blood Count 3.42 x10^6/uL (3.50-5.40) Hemoglobin 10.1 g/dL (12.0-15.5) Hematocrit 31.2 % (36.0-47.0) Mean Corpuscular Volume 91 fL (79-100) Mean Corpuscular Hemoglobin 30 pg (25-35) Mean Corpuscular Hemoglobin Concent 33 g/dL (31-37) Red Cell Distribution Width 14.8 % (11.5-14.5) Platelet Count 159 x10^3/uL (140-400) Neutrophils (%) (Auto) 64 % (31-73) Lymphocytes (%) (Auto) 11 % (24-48) Monocytes (%) (Auto) 7 % (0-9) Eosinophils (%) (Auto) 18 % (0-3) Basophils (%) (Auto) 0 % (0-3) Neutrophils # (Auto) 8.5 x10^3uL (1.8-7.7) Lymphocytes # (Auto) 1.5 x10^3/uL (1.0-4.8) Monocytes # (Auto) 0.9 x10^3/uL (0.0-1.1) Eosinophils # (Auto) 2.4 x10^3/uL (0.0-0.7) Basophils # (Auto) 0.0 x10^3/uL (0.0-0.2) Prothrombin Time 14.1 SEC (11.7-14.0) Prothromb Time International Ratio 1.1 (0.8-1.1) Sodium Level 142 mmol/L (136-145) Potassium Level 3.4 mmol/L (3.5-5.1) Chloride Level 106 mmol/L (98-107) Carbon Dioxide Level 28 mmol/L (21-32) Anion Gap 8 (6-14) Blood Urea Nitrogen 14 mg/dL (7-20) Creatinine 0.6 mg/dL (0.6-1.0) Estimated GFR (Cockcroft-Gault) 118.2 BUN/Creatinine Ratio 23 (6-20) Glucose Level 167 mg/dL (70-99) Calcium Level 8.9 mg/dL (8.5-10.1) Total Bilirubin 0.2 mg/dL (0.2-1.0) Aspartate Amino Transf (AST/SGOT) 11 U/L (15-37) Alanine Aminotransferase (ALT/SGPT) 9 U/L (14-59) Alkaline Phosphatase 77 U/L (46-116) Total Protein 5.5 g/dL (6.4-8.2) Albumin 1.7 g/dL (3.4-5.0) Albumin/Globulin Ratio 0.4 (1.0-1.7) O2 Saturation 97 % (92-99) Arterial Blood pH 7.39 (7.35-7.45) Arterial Blood pCO2 at Patient Temp 49 mmHg (35-46) Arterial Blood pO2 at Patient Temp 107 mmHg (65-108) Arterial Blood HCO3 29 mmol/L (21-28) Arterial Blood Base Excess 3 mmol/L (-3-3) FiO2 40 Microbiology 01/04/19 Blood Culture - Preliminary, Resulted NO GROWTH AFTER 3 DAYS 01/06/19 - Final, Complete 01/04/19 Urine Culture - Final, Complete 01/04/19 Urine Culture Result 1 (SARAH BETH) - Final, Complete Medications Current Medications Etomidate (Amidate) 10 mg 1X ONCE IV Last administered on 01/04/19 11:39; Start 01/04/19 at 12:00; Stop 01/04/19 at 12:01; Status DC Succinylcholine Chloride (Anectine) 50 mg 1X ONCE IV Last administered on 01/04at 11:39; Start 01/04/19 at 12:00; Stop 01/04/19 at 12:01; Status DC Fentanyl Citrate (Fentanyl 2ml Vial) 25 mcg PRN Q1HR PRN IV SEE COMMENTS Last administered on 01/08/19 08:38; Start 01/04/19 at 11:45 Fentanyl Citrate (Fentanyl 2ml Vial) 50 mcg PRN Q1HR PRN IV SEE COMMENTS Last administered on 01/08/19 02:06; Start 01/04/19 at 11:45 Chlorhexidine Gluconate (Peridex) 15 ml BID MM Last administered on 01/07/19 21:10; Start 01/04/19 at 21:00 Famotidine (Pepcid Vial) 20 mg BID IVP Last administered on 3/27/19at 09:04; Start 01/04/19 at 21:00; Stop 01/05/19 at 10:32; Status DC Morphine Sulfate (Morphine Sulfate) 2 mg PRN Q1HR PRN IV SEE COMMENTS. Last administered on 01/07/19at 10:01; Start 01/04/19 at 11:45 Midazolam HCl 100 ml @ 0 mls/hr CONT PRN IV SEE PROTOCOL Last administered on at 01:01; Start 01/04/19 at 12:00; Stop 01/07/19 at 11:43; Status DC Midazolam HCl (Versed) 5 mg STK-MED ONCE .ROUTE ; Start 01/04/19 at 12:10; Stop 01/04/19 at 12:11; Status DC Albuterol/ Ipratropium (Duoneb) 6 ml 1X ONCE NEB Last administered on at 13:12; Start 01/04/19 at 12:30; Stop 01/04/19 at 12:31; Status DC Methylprednisolone Sodium Succinate (SOLU-Medrol 125MG VIAL) 125 mg 1X ONCE IV Last administered on 01/04/19at 12:44; Start 01/04/19 at 12:30; Stop 01/04/19 at 12:31; Status DC Midazolam HCl (Versed) 5 mg STK-MED ONCE .ROUTE ; Start 01/04/19 at 12:40; Stop 01/04/19 at 12:41; Status DC Sodium Chloride 1,000 ml @ 125 mls/hr Q8H IV Last administered on 01/05/19at 06 :21; Start 01/04/19 at 14:00; Stop 01/05/19 at 13:59; Status DC Albuterol/ Ipratropium (Duoneb) 3 ml RTQID NEB Last administered on 01/05/19at 15:53; Start 01/04/19 at 16:00; Stop 01/05/19 at 15:59; Status DC Midazolam HCl (Versed) 5 mg 1X ONCE IV Last administered on 01/04/19at 11:57; Start 01/04/19 at 13:30; Stop 01/04/19 at 13:31; Status DC Midazolam HCl (Versed) 5 mg 1X ONCE IV Last administered on 01/04/19at 14:00; Start 01/04/19 at 15:15; Stop 01/04/19 at 15:16; Status DC Levofloxacin/ Dextrose 100 ml @ 100 mls/hr 1X ONCE IV Last administered on at 18:34; Start 01/04/19 at 18:00; Stop 01/04/19 at 18:59; Status DC Sodium Chloride 1,000 ml @ 1,710 mls/hr Q36M IV Last administered on at 20:39; Start 01/04/19 at 18:30; Stop 01/04/19 at 19:30; Status DC Sodium Chloride 500 ml @ 1,000 mls/hr PRN Q30MIN PRN IV SEE COMMENTS; Start at 18:00 Vancomycin HCl (Vanco Per Pharmacy) 1 each PRN DAILY PRN MC SEE COMMENTS Last administered on 01/04/19at 20:07; Start 01/04/19 at 18:00; Stop 01/05/19 at 07:48 ; Status DC Levofloxacin/ Dextrose 50 ml @ 50 mls/hr Q24H IV ; Start 01/05/19 at 18:00; Stop 01/05/19 at 18:00; Status DC Vancomycin HCl 1 gm/Sodium Chloride 250 ml @ 250 mls/hr 1X ONCE IV Last administered on 01/04/19at 19:42; Start 01/04/19 at 19:00; Stop 01/04/19 at 19:59 ; Status DC Vancomycin HCl 750 mg/Sodium Chloride 250 ml @ 250 mls/hr Q24H IV ; Start 01/05 at 20:00; Stop 01/05/19 at 20:00; Status DC Vancomycin HCl (Vancomycin Trough Level) 1 each 1X ONCE MC ; Start 01/06/19 at 19:30; Stop 01/06/19 at 19:30; Status DC Furosemide (Lasix) 20 mg 1X ONCE IVP Last administered on 01/05/19at 03:19; Start 01/05/19 at 02:45; Stop 01/05/19 at 02:46; Status DC Aspirin (Andrea Aspirin) 325 mg DAILYWBKFT PO Last administered on 01/07/19at 08: 20; Start 01/05/19 at 11:00 Atorvastatin Calcium (Lipitor) 40 mg HS PO Last administered on 01/07/19at 21:10 ; Start 01/05/19 at 21:00 Carvedilol (Coreg) 6.25 mg BIDWMEALS PO Last administered on 01/07/19 17:43; Start 01/05/19 at 11:00 Clopidogrel Bisulfate (Plavix) 75 mg DAILYWBKFT PO Last administered on 08:17; Start 01/05/19 at 11:00 Lisinopril (Prinivil) 2.5 mg DAILY PO Last administered on 01/07/19 08:19; Start 01/05/19 at 11:00 Famotidine (Pepcid Vial) 20 mg DAILY IVP Last administered on 01/07/19 08:18; Start 01/06/19 at 09:00 Piperacillin Sod/ Tazobactam Sod 3.375 gm/Sodium Chloride 50 ml @ 100 mls/hr Q6HRS IV Last administered on 01/08/19 06:10; Start 01/05/19 at 11:00 Enoxaparin Sodium (Lovenox Per Pharmacy Treatment Dosing) 1 each PRN DAILY PRN MC SEE COMMENTS; Start 01/05/19 at 10:45; Stop 01/05/19 at 14:06; Status DC Enoxaparin Sodium (Lovenox 60mg Syringe) 50 mg DAILY SQ Last administered on at 10:58; Start 01/05/19 at 11:30; Stop 01/05/19 at 14:08; Status DC Fentanyl Citrate 30 ml @ 0 mls/hr CONT PRN IV SEE PROTOCOL Last administered on 01/06/19at 09:54; Start 01/05/19 at 12:15; Stop 01/07/19 at 11:43; Status DC Chlorhexidine Gluconate (Peridex) 15 ml BID MM ; Start 01/05/19 at 21:00; Status UNV Enoxaparin Sodium (Lovenox 30mg Syringe) 30 mg Q24H SQ Last administered on 09:58; Start 01/06/19 at 09:00 Albuterol/ Ipratropium (Duoneb) 3 ml RTQID NEB Last administered on 01/08/19 07:32; Start 01/05/19 at 16:00 Sodium Chloride 1,000 ml @ 125 mls/hr Q8H IV Last administered on 3/29/19at 04 :28; Start 01/05/19 at 22:00; Stop 01/07/19 at 11:43; Status DC Sodium Chloride 500 ml @ 500 mls/hr 1X ONCE IV ; Start 01/05/19 at 22:00; Stop 01/05/19 at 22:59; Status DC Furosemide (Lasix) 20 mg DAILY PO Last administered on 01/07/19at 08:21; Start 01/06/19 at 15:00 Potassium Chloride (KCl Oral Soln) 40 meq 1X ONCE PEG Last administered on at 08:17; Start 01/07/19 at 07:30; Stop 01/07/19 at 07:31; Status DC Dexmedetomidine HCl 200 mcg/ Sodium Chloride 50 ml @ 0 mls/hr CONT PRN IV PER PROTOCOL Last administered on 01/08/19at 08:05; Start 01/07/19 at 14:15 Sodium Chloride 500 ml @ 500 mls/hr 1X PRN PRN IV SEE COMMENTS; Start at 14:15 Atropine Sulfate (ATROPINE 0.5mg SYRINGE) 0.5 mg PRN Q5MIN PRN IV SEE COMMENTS ; Start 01/07/19 at 14:15 Furosemide (Lasix) 20 mg 1X ONCE IVP Last administered on 01/07/19at 14:30; Start 01/07/19 at 14:30; Stop 01/07/19 at 14:31; Status DC Hydralazine HCl (Apresoline Inj) 10 mg PRN Q4HRS PRN IVP ELEVATED BP, SEE COMMENTS; Start 01/07/19 at 14:30 Active Scripts Active Clopidogrel (Clopidogrel Bisulfate) 75 Mg Tablet 75 Mg PO DAILYWBKFT 30 Days Lasix (Furosemide) 20 Mg Tablet 1 Tab PO DAILY Proair Hfa Inhaler (Albuterol Sulfate) 8.5 Gm Hfa.aer.ad 1 Puff INH PRN Q6HRS PRN 14 Days Zofran (Ondansetron Hcl) 4 Mg Tablet 1 Tab PO Q8HRS PRN Reported Alprazolam 0.25 Mg Tablet 1 Tab PO TID Flovent 110MCG Hfa (Fluticasone Propionate) 12 Gm Aer.w.adap 2 Puff IH BID Spironolactone 25 Mg Tablet 1 Tab PO DAILY Protonix (Pantoprazole Sodium) 20 Mg Tablet.dr 40 Mg PO DAILY Oxycodone Hcl 5 Mg/5 Ml Solution 5 Mg PO PRN Q4HRS PRN Lisinopril 2.5 Mg Tablet 2.5 Mg PO DAILY Guaifenesin 600 Mg Tablet.er 600 Mg PO BID Sertraline Hcl 50 Mg Tablet 50 Mg PO DAILY Tramadol Hcl 50 Mg Tablet 1 Tab PO PRN Q6HRS PRN Duoneb 0.5-3(2.5) Mg/3 Ml (Albuterol/Ipratropium) 3 Ml Ampul.neb 3 Ml NEB QID Atorvastatin Calcium 40 Mg Tablet 40 Mg PO HS Carvedilol (Carvedilol) 6.25 Mg Tablet 6.25 Mg PO BIDWMEALS Vitamin D (Cholecalciferol (Vitamin D3)) 2,000 Unit Capsule 2,000 Unit PO BIDAFTMEAL Aspirin Ec (Aspirin) 325 Mg Tablet. 325 Mg PO DAILY Vitals/I & O Vital Sign - Last 24 Hours 01/07/19 01/07/19 01/07/19 01/07/19 10:30 10:35 11:14 11:30 Pulse 106 88 Resp 25 29 28 B/P (MAP) 189/104 (132) 160/99 (119) Pulse Ox 100 100 99 100 O2 Delivery Ventilator Ventilator Ventilator Ventilator 01/07/19 01/07/19 01/07/19 01/07/19 11:52 12:00 12:26 13:00 Temp 98.8 98.8 Pulse 74 66 Resp 16 16 B/P (MAP) 104/48 (66) 109/53 (71) Pulse Ox 100 99 99 O2 Delivery Mechanical Ventilator Ventilator Ventilator O2 Flow Rate 15.0 01/07/19 01/07/19 01/07/19 01/07/19 13:10 13:57 14:00 14:30 Pulse 80 Resp 28 B/P (MAP) Pulse Ox 100 99 100 100 O2 Delivery Ventilator Ventilator O2 Flow Rate 15.0 15.0 01/07/19 01/07/19 01/07/19 01/07/19 15:00 15:33 16:00 16:00 Temp 98.5 98.5 Pulse 68 62 Resp 16 16 B/P (MAP) 109/54 (72) 109/54 (72) Pulse Ox 99 99 100 O2 Delivery Ventilator Ventilator Ventilator Mechanical Ventilator 301/07/19 01/07/19 01/07/19 17:00 17:43 17:50 18:00 Pulse 58 60 58 Resp 16 15 B/P (MAP) 85/48 (60) 117/55 119/60 (79) Pulse Ox 100 100 100 O2 Delivery Ventilator Ventilator Ventilator 01/07/19 01/07/19 01/07/19 01/07/19 19:00 20:00 20:00 20:01 Temp 98.3 98.3 Pulse 60 60 Resp 17 16 B/P (MAP) 123/67 (85) 125/66 (85) Pulse Ox 100 100 100 O2 Delivery Ventilator Mechanical Ventilator Ventilator Ventilator 01/07/19 01/07/19 01/07/19 01/07/19 21:00 21:51 22:00 23:00 Pulse 60 60 60 Resp 16 16 16 B/P (MAP) 135/68 (90) 110/56 (74) 153/75 (101) Pulse Ox 100 100 100 100 O2 Delivery Ventilator Ventilator Ventilator Ventilator 01/07/19 01/08/19 01/08/19 01/08/19 23:09 00:00 00:00 01:00 Pulse 60 60 Resp 16 16 B/P (MAP) 131/65 (87) 123/61 (81) Pulse Ox 100 100 100 O2 Delivery Ventilator Mechanical Ventilator Ventilator Ventilator 01/08/19 01/08/19 01/08/19 01/08/19 01:23 02:00 03:00 03:11 Pulse 60 60 Resp 16 16 B/P (MAP) 102/48 (66) 113/52 (72) Pulse Ox 100 100 100 100 O2 Delivery Ventilator Ventilator Ventilator Ventilator 01/08/19 01/08/19 01/08/19 01/08/19 04:00 04:00 05:00 05:43 Temp 98.0 98.0 Pulse 60 60 Resp 16 16 B/P (MAP) 130/69 (89) 139/74 (95) Pulse Ox 100 100 100 O2 Delivery Mechanical Ventilator Ventilator Ventilator Ventilator 01/08/19 01/08/19 01/08/19 06:40 07:32 08:38 Resp 28 Pulse Ox 100 100 100 O2 Delivery Ventilator O2 Flow Rate 15.0 15.0 Intake and Output 01/07/19 01/07/19 01/08/19 15:00 23:00 07:00 Intake Total 110 ml 810 ml 319 ml Output Total 760 ml 365 ml 170 ml Balance -650 ml 445 ml 149 ml Nutrition Consultation Dietary Evaluation: Recommendations by RD: Increase Calorie Intake Comments: Recommend osmolite 1.2 starting at 20mL/hr, increasing 10mL @ 8hr until goal rate of 45mL/hr w/ 50mL water flushes Q 4hr. Expected Outcomes/Goals: TF to meet >75% estimated needs Interpretation of weight loss: >20% in 1 year Malnutrition Findings: Body Fat Depletion (Non Severe: Mild Depletion Weight Status: Underweight BAYLEE SIMS MD Jan 08, 2019 10:16
--- NOTE | 2019-01-08 10:37 | PDOC ---
PULMONARY PROGRESS NOTES Subjective AGITATED AND INCREASE HR DURING TRIAL Vitals Vital Signs Date Time Temp Pulse Resp B/P (MAP) Pulse Ox O2 Delivery O2 Flow Rate FiO2 01/08/19 08:38 28 100 15.0 01/08/19 07:32 Ventilator 01/08/19 05:00 60 139/74 (95) 01/08/19 04:00 98.0 98.0 Lungs: Clear, Crackles Cardiovascular: S1, S2 Extremities: No Edema Skin: Warm Labs Laboratory Tests Test 01/07/19 04:35 01/07/19 07:20 01/08/19 06:10 01/08/19 07:40 White Blood Count 18.2 x10^3/uL (4.0-11.0) 13.2 x10^3/uL (4.0-11.0) Red Blood Count 3.85 x10^6/uL (3.50-5.40) 3.42 x10^6/uL (3.50-5.40) Hemoglobin 11.1 g/dL (12.0-15.5) 10.1 g/dL (12.0-15.5) Hematocrit 34.9 % (36.0-47.0) 31.2 % (36.0-47.0) Mean Corpuscular Volume 91 fL (79-100) 91 fL (79-100) Mean Corpuscular Hemoglobin 29 pg (25-35) 30 pg (25-35) Mean Corpuscular Hemoglobin Concent 32 g/dL (31-37) 33 g/dL (31-37) Red Cell Distribution Width 15.0 % (11.5-14.5) 14.8 % (11.5-14.5) Platelet Count 181 x10^3/uL (140-400) 159 x10^3/uL (140-400) Neutrophils (%) (Auto) 83 % (31-73) 64 % (31-73) Lymphocytes (%) (Auto) 7 % (24-48) 11 % (24-48) Monocytes (%) (Auto) 7 % (0-9) 7 % (0-9) Eosinophils (%) (Auto) 4 % (0-3) 18 % (0-3) Basophils (%) (Auto) 1 % (0-3) 0 % (0-3) Neutrophils # (Auto) 15.0 x10^3uL (1.8-7.7) 8.5 x10^3uL (1.8-7.7) Lymphocytes # (Auto) 1.3 x10^3/uL (1.0-4.8) 1.5 x10^3/uL (1.0-4.8) Monocytes # (Auto) 1.2 x10^3/uL (0.0-1.1) 0.9 x10^3/uL (0.0-1.1) Eosinophils # (Auto) 0.6 x10^3/uL (0.0-0.7) 2.4 x10^3/uL (0.0-0.7) Basophils # (Auto) 0.1 x10^3/uL (0.0-0.2) 0.0 x10^3/uL (0.0-0.2) Prothrombin Time 14.5 SEC (11.7-14.0) 14.1 SEC (11.7-14.0) Prothromb Time International Ratio 1.2 (0.8-1.1) 1.1 (0.8-1.1) Sodium Level 142 mmol/L (136-145) 142 mmol/L (136-145) Potassium Level 3.1 mmol/L (3.5-5.1) 3.4 mmol/L (3.5-5.1) Chloride Level 107 mmol/L (98-107) 106 mmol/L (98-107) Carbon Dioxide Level 27 mmol/L (21-32) 28 mmol/L (21-32) Anion Gap 8 (6-14) 8 (6-14) Blood Urea Nitrogen 14 mg/dL (7-20) 14 mg/dL (7-20) Creatinine 0.9 mg/dL (0.6-1.0) 0.6 mg/dL (0.6-1.0) Estimated GFR (Cockcroft-Gault) 74.1 118.2 BUN/Creatinine Ratio 16 (6-20) 23 (6-20) Glucose Level 168 mg/dL (70-99) 167 mg/dL (70-99) Calcium Level 8.5 mg/dL (8.5-10.1) 8.9 mg/dL (8.5-10.1) Magnesium Level 1.8 mg/dL (1.8-2.4) Total Bilirubin 0.4 mg/dL (0.2-1.0) 0.2 mg/dL (0.2-1.0) Aspartate Amino Transf (AST/SGOT) 14 U/L (15-37) 11 U/L (15-37) Alanine Aminotransferase (ALT/SGPT) 11 U/L (14-59) 9 U/L (14-59) Alkaline Phosphatase 92 U/L (46-116) 77 U/L (46-116) Total Protein 6.1 g/dL (6.4-8.2) 5.5 g/dL (6.4-8.2) Albumin 2.2 g/dL (3.4-5.0) 1.7 g/dL (3.4-5.0) Albumin/Globulin Ratio 0.6 (1.0-1.7) 0.4 (1.0-1.7) O2 Saturation 98 % (92-99) 97 % (92-99) Arterial Blood pH 7.41 (7.35-7.45) 7.39 (7.35-7.45) Arterial Blood pCO2 at Patient Temp 40 mmHg (35-46) 49 mmHg (35-46) Arterial Blood pO2 at Patient Temp 107 mmHg (65-108) 107 mmHg (65-108) Arterial Blood HCO3 25 mmol/L (21-28) 29 mmol/L (21-28) Arterial Blood Base Excess 0 mmol/L (-3-3) 3 mmol/L (-3-3) FiO2 40 40 Laboratory Tests Test 01/08/19 06:10 01/08/19 07:40 White Blood Count 13.2 x10^3/uL (4.0-11.0) Red Blood Count 3.42 x10^6/uL (3.50-5.40) Hemoglobin 10.1 g/dL (12.0-15.5) Hematocrit 31.2 % (36.0-47.0) Mean Corpuscular Volume 91 fL (79-100) Mean Corpuscular Hemoglobin 30 pg (25-35) Mean Corpuscular Hemoglobin Concent 33 g/dL (31-37) Red Cell Distribution Width 14.8 % (11.5-14.5) Platelet Count 159 x10^3/uL (140-400) Neutrophils (%) (Auto) 64 % (31-73) Lymphocytes (%) (Auto) 11 % (24-48) Monocytes (%) (Auto) 7 % (0-9) Eosinophils (%) (Auto) 18 % (0-3) Basophils (%) (Auto) 0 % (0-3) Neutrophils # (Auto) 8.5 x10^3uL (1.8-7.7) Lymphocytes # (Auto) 1.5 x10^3/uL (1.0-4.8) Monocytes # (Auto) 0.9 x10^3/uL (0.0-1.1) Eosinophils # (Auto) 2.4 x10^3/uL (0.0-0.7) Basophils # (Auto) 0.0 x10^3/uL (0.0-0.2) Prothrombin Time 14.1 SEC (11.7-14.0) Prothromb Time International Ratio 1.1 (0.8-1.1) Sodium Level 142 mmol/L (136-145) Potassium Level 3.4 mmol/L (3.5-5.1) Chloride Level 106 mmol/L (98-107) Carbon Dioxide Level 28 mmol/L (21-32) Anion Gap 8 (6-14) Blood Urea Nitrogen 14 mg/dL (7-20) Creatinine 0.6 mg/dL (0.6-1.0) Estimated GFR (Cockcroft-Gault) 118.2 BUN/Creatinine Ratio 23 (6-20) Glucose Level 167 mg/dL (70-99) Calcium Level 8.9 mg/dL (8.5-10.1) Total Bilirubin 0.2 mg/dL (0.2-1.0) Aspartate Amino Transf (AST/SGOT) 11 U/L (15-37) Alanine Aminotransferase (ALT/SGPT) 9 U/L (14-59) Alkaline Phosphatase 77 U/L (46-116) Total Protein 5.5 g/dL (6.4-8.2) Albumin 1.7 g/dL (3.4-5.0) Albumin/Globulin Ratio 0.4 (1.0-1.7) O2 Saturation 97 % (92-99) Arterial Blood pH 7.39 (7.35-7.45) Arterial Blood pCO2 at Patient Temp 49 mmHg (35-46) Arterial Blood pO2 at Patient Temp 107 mmHg (65-108) Arterial Blood HCO3 29 mmol/L (21-28) Arterial Blood Base Excess 3 mmol/L (-3-3) FiO2 40 Medications Active Scripts Medications Dose Route/Sig Max Daily Dose Days Date Category Clopidogrel (Clopidogrel Bisulfate) 75 Mg Tablet 75 Mg PO DAILYWBKFT 30 12/01/18 Rx Alprazolam 0.25 Mg Tablet 1 Tab PO TID 11/25/18 Reported Flovent 110MCG Hfa (Fluticasone Propionate) 12 Gm Aer.w.adap 2 Puff IH BID 11/25/18 Reported Spironolactone 25 Mg Tablet 1 Tab PO DAILY 11/25/18 Reported Protonix (Pantoprazole Sodium) 20 Mg Tablet.dr 40 Mg PO DAILY 11/25/18 Reported Oxycodone Hcl 5 Mg/5 Ml Solution 5 Mg PO PRN Q4HRS PRN 11/25/18 Reported Lisinopril 2.5 Mg Tablet 2.5 Mg PO DAILY 11/25/18 Reported Guaifenesin 600 Mg Tablet.er 600 Mg PO BID 11/25/18 Reported Sertraline Hcl 50 Mg Tablet 50 Mg PO DAILY 11/25/18 Reported Lasix (Furosemide) 20 Mg Tablet 1 Tab PO DAILY 10/04/18 Rx Proair Hfa Inhaler (Albuterol Sulfate) 8.5 Gm Hfa.aer.ad 1 Puff INH PRN Q6HRS PRN 14 10/04/18 Rx Tramadol Hcl 50 Mg Tablet 1 Tab PO PRN Q6HRS PRN 08/13/18 Reported Duoneb 0.5-3(2.5) Mg/3 Ml (Albuterol/Ipratropium) 3 Ml Ampul.neb 3 Ml NEB QID 04/17/18 Reported Zofran (Ondansetron Hcl) 4 Mg Tablet 1 Tab PO Q8HRS PRN 05/19/16 Rx Atorvastatin Calcium 40 Mg Tablet 40 Mg PO HS 09/24/15 Reported Carvedilol (Carvedilol) 6.25 Mg Tablet 6.25 Mg PO BIDWMEALS 09/24/15 Reported Vitamin D (Cholecalciferol (Vitamin D3)) 2,000 Unit Capsule 2,000 Unit PO BIDAFTMEAL 01/07/15 Reported Aspirin Ec (Aspirin) 325 Mg Tablet.dr 325 Mg PO DAILY 01/07/15 Reported Impression . IMPRESSION: 1. Acute hypoxemic hypercapnic respiratory failure, multifactorial. ACUTE/ CHRONIC ASPIRATION 2. Overdose on OxyContin. 3. Chronic interstitial lung disease. 4. Chronic eating disorder, status post PEG tube placement. 5. Depression. 6. Chronic obstructive pulmonary disease. 7. Other comorbidities. 8. Severe cardiomyopathy, ejection fraction 10-15%. 9. Coronary artery disease, status post previous stenting. 10. Acute on chronic systolic, diastolic heart failure. Plan . D/W RN WILL CONTINUE SUPPORT FOR NOW CHRONIC ASPIRATION ON ANTIBX BAL SO FAR NEGATIVE NOT READY FOR EXTUBATION WILL CONTINUE PS ENTERAL FEEDING DVT GI PROPH CCT 30 MIN REGGIE CONTRERAS MD Jan 08, 2019 10:37
[2019-01-08] MEDS: FAMOTIDINE 20 MG/2 ML VIAL IVP SCH (11:08)
[2019-01-08] MEDS: LISINOPRIL 5 MG TABLET. PO SCH (11:09)
[2019-01-08] MEDS: FUROSEMIDE 20 MG TABLET PO SCH (11:09)
[2019-01-08] MEDS: ASPIRIN 325 MG TABLET PO SCH (11:09)
[2019-01-08] MEDS: CLOPIDOGREL BISULFATE 75 MG TABLET PO SCH (11:09)
[2019-01-08] MEDS: CARVEDILOL 6.25 MG TABLET. PO SCH ×2 (11:10→18:16)
[2019-01-08] MEDS: CHLORHEXIDINE 0.12% 15 ML MOUTHWASH. MM SCH ×2 (11:11→23:53)
[2019-01-08] MEDS ORDERED: POTASSIUM CHL 20MEQ PREMIX 50 ML IV ONE (12:00)
[2019-01-08] MEDS: POTASSIUM CHLORIDE 10MEQ 100 ML IV SCH ×2 (13:34→14:36)
[2019-01-08] MEDS: ENOXAPARIN 30 MG/0.3 ML SYRINGE. SQ SCH (16:47)
[2019-01-08] MEDS: ATORVASTATIN CALCIUM 40 MG TABLET. PO SCH (21:27)
[2019-01-08] MEDS: MORPHINE SULFATE 2 MG/ML VIAL. IV PRN (23:42)
[2019-01-09] VITALS (23 sets, daily range): BP systolic 119–187; BP diastolic 62–112
[2019-01-09] MEDS: fentaNYL PF VIAL 100 MCG/2 ML VIAL IV PRN ×9 (01:12→23:03)
[2019-01-09] MEDS: PIPERACILLIN/TAZOBACTAM 3.375 GM in IV NORMAL SALINE 50ML 50 ML IV SCH ×5 (01:16→23:03)
[2019-01-09] MEDS: DEXMEDETOMIDINE 200 MCG in IV NORMAL SALINE 50ML 48 ML IV PRN ×3 (02:00→08:56)
[2019-01-09 04:51] LABS: BASO # 0.1 x10^3/uL (0.0-0.2); BASO % 1 % (0-3); EOS # 1.6 x10^3/uL (0.0-0.7); EOS % 14 % (0-3); HEMATOCRIT 33.1 % (36.0-47.0); HEMOGLOBIN 10.5 g/dL (12.0-15.5); LYMPH # 1.1 x10^3/uL (1.0-4.8); LYMPH % 9 % (24-48); MEAN CORPUSCULAR HEMOGLOBIN 29 pg (25-35); MEAN CORPUSCULAR HGB CONC 32 g/dL (31-37); MEAN CORPUSCULAR VOLUME 91 fL (79-100); MONO # 0.9 x10^3/uL (0.0-1.1); MONO % 8 % (0-9); NEUT # 8.3 x10^3uL (1.8-7.7); NEUT % 69 % (31-73); PLATELET COUNT 194 x10^3/uL (140-400); RED BLOOD COUNT 3.65 x10^6/uL (3.50-5.40); RED CELL DISTRIBUTION WIDTH 14.8 % (11.5-14.5)
[2019-01-09 05:12] LABS: PROTHROMBIN TIME PATIENT 13.9 SEC (11.7-14.0)
[2019-01-09 05:31] LABS: ALBUMIN/GLOBULIN RATIO 0.5 (1.0-1.7); CALCIUM 9.5 mg/dL (8.5-10.1); CREATININE 0.6 mg/dL (0.6-1.0); GFR 118.2; POTASSIUM 3.3 mmol/L (3.5-5.1); TOTAL BILIRUBIN 0.3 mg/dL (0.2-1.0); TOTAL PROTEIN 6.2 g/dL (6.4-8.2)
[2019-01-09] MEDS: IPRATRPIUM/ALBUTEROL 0.5/2.5MG 3 ML NEBU. NEB SCH ×4 (07:29→19:57)
--- NOTE | 2019-01-09 07:33 | PDOC ---
Infectious Disease Note Subjective Subjective Remains intubated, FiO2 40% No fevers last 24 hours Awake since 1:00 this morning Tolerating tube feedings At my exam extubated. No F/C/S/SOA. worried about a little swelling in left hand and legs ROS ROS per HPI Vital Sign Vital Signs Vital Signs Date Time Temp Pulse Resp B/P (MAP) Pulse Ox O2 Delivery O2 Flow Rate FiO2 01/09/19 07:24 100 Ventilator 01/09/19 06:07 15.0 01/09/19 06:00 62 16 155/77 (103) 01/09/19 04:00 97.9 97.9 Physical Exam PHYSICAL EXAM GENERAL: Sitting upright in bed, trying to communicate by writing, alert, NAD . Extubated and Sitting on side of bed and returned from [employer]. Cassandrao k HEENT: ELEONORA, ETT. ETT out - OC- clear LUNGS: clear HEART: S1, S2, paced ABDOMEN: Nondistended, soft, nontender, PEG : [place] EXTREMITIES: No edema, no cyanosis. Trace edema SKIN: Warm, dry. No generalized rash. NEURO: Coop and answering questions PIV Labs Lab Laboratory Tests Test 01/08/19 07:40 01/09/19 04:20 O2 Saturation 97 % (92-99) Arterial Blood pH 7.39 (7.35-7.45) Arterial Blood pCO2 at Patient Temp 49 mmHg (35-46) Arterial Blood pO2 at Patient Temp 107 mmHg (65-108) Arterial Blood HCO3 29 mmol/L (21-28) Arterial Blood Base Excess 3 mmol/L (-3-3) FiO2 40 White Blood Count 12.0 x10^3/uL (4.0-11.0) Red Blood Count 3.65 x10^6/uL (3.50-5.40) Hemoglobin 10.5 g/dL (12.0-15.5) Hematocrit 33.1 % (36.0-47.0) Mean Corpuscular Volume 91 fL (79-100) Mean Corpuscular Hemoglobin 29 pg (25-35) Mean Corpuscular Hemoglobin Concent 32 g/dL (31-37) Red Cell Distribution Width 14.8 % (11.5-14.5) Platelet Count 194 x10^3/uL (140-400) Neutrophils (%) (Auto) 69 % (31-73) Lymphocytes (%) (Auto) 9 % (24-48) Monocytes (%) (Auto) 8 % (0-9) Eosinophils (%) (Auto) 14 % (0-3) Basophils (%) (Auto) 1 % (0-3) Neutrophils # (Auto) 8.3 x10^3uL (1.8-7.7) Lymphocytes # (Auto) 1.1 x10^3/uL (1.0-4.8) Monocytes # (Auto) 0.9 x10^3/uL (0.0-1.1) Eosinophils # (Auto) 1.6 x10^3/uL (0.0-0.7) Basophils # (Auto) 0.1 x10^3/uL (0.0-0.2) Prothrombin Time 13.9 SEC (11.7-14.0) Prothromb Time International Ratio 1.1 (0.8-1.1) Sodium Level 141 mmol/L (136-145) Potassium Level 3.3 mmol/L (3.5-5.1) Chloride Level 104 mmol/L (98-107) Carbon Dioxide Level 30 mmol/L (21-32) Anion Gap 7 (6-14) Blood Urea Nitrogen 12 mg/dL (7-20) Creatinine 0.6 mg/dL (0.6-1.0) Estimated GFR (Cockcroft-Gault) 118.2 BUN/Creatinine Ratio 20 (6-20) Glucose Level 142 mg/dL (70-99) Calcium Level 9.5 mg/dL (8.5-10.1) Total Bilirubin 0.3 mg/dL (0.2-1.0) Aspartate Amino Transf (AST/SGOT) 21 U/L (15-37) Alanine Aminotransferase (ALT/SGPT) 14 U/L (14-59) Alkaline Phosphatase 80 U/L (46-116) Total Protein 6.2 g/dL (6.4-8.2) Albumin 2.0 g/dL (3.4-5.0) Albumin/Globulin Ratio 0.5 (1.0-1.7) Micro 01/04/19 Blood Culture - Preliminary, Resulted NO GROWTH AFTER 4 DAYS URINE CULTURE RES 1 Final No growth BRONCH RES 1 Preliminary Comment Routine respiratory orquidea 01/07. GRAM STAIN EVALUATION Final Comment This specimen is of good quality and is acceptable for routine bacterial culture. Objective Assessment Febrile illness source resp resolved cults neg so far Leucocytosis, improving Lactic acidosis resolved PENICILLIN allergy, but has tolerated amoxicillin per chart review Acute resp failure appears multifactorial, aspiration - s/p bronchoscopy, 01/06 culture routine resp orquidea - now extubated Overdose on OxyContin. H/O Chronic interstitial lung disease. COPD h/o severe Cardiomyopathy, EF 10-15 % CAD/CHF Depression Chronic dysphagia; s/p PEG tube for chronic vomiting AICD HTN Severe MR,not a surgical candidate Plan Plan of Care Zosyn since 01/05 wean soon monitor labs/temp T-trial today passed and extubated Supportive care D/w RN Attending Co-Sign Attending Co-Sign The patient was seen and interviewed as well as examined at the bedside. The chart was reviewed. The case was discussed. Agree with the plan of care. PAVEL ZEE APRN Jan 09, 2019 07:33 TAMIKO GUZMÁN MD Jan 09, 2019 13:36
[2019-01-09 08:18] LABS: BASE EXCESS ABG 4 mmol/L (-3-3); HCO3 ABG 29 mmol/L (21-28); PCO2 ABG 46 mmHg (35-46); PO2 ABG 73 mmHg (65-108); SAT O2 ABG 94 % (92-99)
[2019-01-09 08:28] LABS: FIO2 ABG 40% T-TUBE
[2019-01-09] MEDS: ENOXAPARIN 30 MG/0.3 ML SYRINGE. SQ SCH (09:28)
[2019-01-09] MEDS: CLOPIDOGREL BISULFATE 75 MG TABLET PO SCH (09:28)
[2019-01-09] MEDS: ASPIRIN 325 MG TABLET PO SCH (09:28)
[2019-01-09] MEDS: CHLORHEXIDINE 0.12% 15 ML MOUTHWASH. MM SCH (09:29)
[2019-01-09] MEDS: CARVEDILOL 6.25 MG TABLET. PO SCH ×2 (09:29→17:24)
[2019-01-09] MEDS: LISINOPRIL 5 MG TABLET. PO SCH (09:29)
[2019-01-09] MEDS: FAMOTIDINE 20 MG/2 ML VIAL IVP SCH (09:29)
[2019-01-09] MEDS: FUROSEMIDE 20 MG TABLET PO SCH (09:33)
--- NOTE | 2019-01-09 10:04 | NUR ---
Patient awake with family at bedside while morning nursing report was given at bedside. Respiratory therapist began a T tube trial at 0745 on patient and ended at 0820. Patient passed. ABG are stable, VSS, patient A/O, anxious. Been in several times to explain possibilities and procedures of being extubated.
[2019-01-09] MEDS: POTASSIUM CHLORIDE 10MEQ 100 ML IV SCH ×2 (11:47→13:08)
--- NOTE | 2019-01-09 12:07 | PDOC ---
PULMONARY PROGRESS NOTES Subjective PT DID WELL ON TRIAL WANTS TUBE OUT MORE AWAKE Vitals Vital Signs Date Time Temp Pulse Resp B/P (MAP) Pulse Ox O2 Delivery O2 Flow Rate FiO2 01/09/19 11:47 100 15.0 01/09/19 11:00 Ventilator 01/09/19 10:08 19 01/09/19 10:00 66 153/93 (113) 01/09/19 07:00 98.0 98.0 Lungs: Crackles, Other (COARSE) Cardiovascular: S1, S2 Extremities: No Edema Skin: Warm Labs Laboratory Tests Test 01/08/19 06:10 01/08/19 07:40 01/09/19 04:20 01/09/19 08:15 White Blood Count 13.2 x10^3/uL (4.0-11.0) 12.0 x10^3/uL (4.0-11.0) Red Blood Count 3.42 x10^6/uL (3.50-5.40) 3.65 x10^6/uL (3.50-5.40) Hemoglobin 10.1 g/dL (12.0-15.5) 10.5 g/dL (12.0-15.5) Hematocrit 31.2 % (36.0-47.0) 33.1 % (36.0-47.0) Mean Corpuscular Volume 91 fL (79-100) 91 fL (79-100) Mean Corpuscular Hemoglobin 30 pg (25-35) 29 pg (25-35) Mean Corpuscular Hemoglobin Concent 33 g/dL (31-37) 32 g/dL (31-37) Red Cell Distribution Width 14.8 % (11.5-14.5) 14.8 % (11.5-14.5) Platelet Count 159 x10^3/uL (140-400) 194 x10^3/uL (140-400) Neutrophils (%) (Auto) 64 % (31-73) 69 % (31-73) Lymphocytes (%) (Auto) 11 % (24-48) 9 % (24-48) Monocytes (%) (Auto) 7 % (0-9) 8 % (0-9) Eosinophils (%) (Auto) 18 % (0-3) 14 % (0-3) Basophils (%) (Auto) 0 % (0-3) 1 % (0-3) Neutrophils # (Auto) 8.5 x10^3uL (1.8-7.7) 8.3 x10^3uL (1.8-7.7) Lymphocytes # (Auto) 1.5 x10^3/uL (1.0-4.8) 1.1 x10^3/uL (1.0-4.8) Monocytes # (Auto) 0.9 x10^3/uL (0.0-1.1) 0.9 x10^3/uL (0.0-1.1) Eosinophils # (Auto) 2.4 x10^3/uL (0.0-0.7) 1.6 x10^3/uL (0.0-0.7) Basophils # (Auto) 0.0 x10^3/uL (0.0-0.2) 0.1 x10^3/uL (0.0-0.2) Prothrombin Time 14.1 SEC (11.7-14.0) 13.9 SEC (11.7-14.0) Prothromb Time International Ratio 1.1 (0.8-1.1) 1.1 (0.8-1.1) Sodium Level 142 mmol/L (136-145) 141 mmol/L (136-145) Potassium Level 3.4 mmol/L (3.5-5.1) 3.3 mmol/L (3.5-5.1) Chloride Level 106 mmol/L (98-107) 104 mmol/L (98-107) Carbon Dioxide Level 28 mmol/L (21-32) 30 mmol/L (21-32) Anion Gap 8 (6-14) 7 (6-14) Blood Urea Nitrogen 14 mg/dL (7-20) 12 mg/dL (7-20) Creatinine 0.6 mg/dL (0.6-1.0) 0.6 mg/dL (0.6-1.0) Estimated GFR (Cockcroft-Gault) 118.2 118.2 BUN/Creatinine Ratio 23 (6-20) 20 (6-20) Glucose Level 167 mg/dL (70-99) 142 mg/dL (70-99) Calcium Level 8.9 mg/dL (8.5-10.1) 9.5 mg/dL (8.5-10.1) Total Bilirubin 0.2 mg/dL (0.2-1.0) 0.3 mg/dL (0.2-1.0) Aspartate Amino Transf (AST/SGOT) 11 U/L (15-37) 21 U/L (15-37) Alanine Aminotransferase (ALT/SGPT) 9 U/L (14-59) 14 U/L (14-59) Alkaline Phosphatase 77 U/L (46-116) 80 U/L (46-116) Total Protein 5.5 g/dL (6.4-8.2) 6.2 g/dL (6.4-8.2) Albumin 1.7 g/dL (3.4-5.0) 2.0 g/dL (3.4-5.0) Albumin/Globulin Ratio 0.4 (1.0-1.7) 0.5 (1.0-1.7) O2 Saturation 97 % (92-99) 94 % (92-99) Arterial Blood pH 7.39 (7.35-7.45) 7.42 (7.35-7.45) Arterial Blood pCO2 at Patient Temp 49 mmHg (35-46) 46 mmHg (35-46) Arterial Blood pO2 at Patient Temp 107 mmHg (65-108) 73 mmHg (65-108) Arterial Blood HCO3 29 mmol/L (21-28) 29 mmol/L (21-28) Arterial Blood Base Excess 3 mmol/L (-3-3) 4 mmol/L (-3-3) FiO2 40 40% t-tube Laboratory Tests Test 01/09/19 04:20 01/09/19 08:15 White Blood Count 12.0 x10^3/uL (4.0-11.0) Red Blood Count 3.65 x10^6/uL (3.50-5.40) Hemoglobin 10.5 g/dL (12.0-15.5) Hematocrit 33.1 % (36.0-47.0) Mean Corpuscular Volume 91 fL (79-100) Mean Corpuscular Hemoglobin 29 pg (25-35) Mean Corpuscular Hemoglobin Concent 32 g/dL (31-37) Red Cell Distribution Width 14.8 % (11.5-14.5) Platelet Count 194 x10^3/uL (140-400) Neutrophils (%) (Auto) 69 % (31-73) Lymphocytes (%) (Auto) 9 % (24-48) Monocytes (%) (Auto) 8 % (0-9) Eosinophils (%) (Auto) 14 % (0-3) Basophils (%) (Auto) 1 % (0-3) Neutrophils # (Auto) 8.3 x10^3uL (1.8-7.7) Lymphocytes # (Auto) 1.1 x10^3/uL (1.0-4.8) Monocytes # (Auto) 0.9 x10^3/uL (0.0-1.1) Eosinophils # (Auto) 1.6 x10^3/uL (0.0-0.7) Basophils # (Auto) 0.1 x10^3/uL (0.0-0.2) Prothrombin Time 13.9 SEC (11.7-14.0) Prothromb Time International Ratio 1.1 (0.8-1.1) Sodium Level 141 mmol/L (136-145) Potassium Level 3.3 mmol/L (3.5-5.1) Chloride Level 104 mmol/L (98-107) Carbon Dioxide Level 30 mmol/L (21-32) Anion Gap 7 (6-14) Blood Urea Nitrogen 12 mg/dL (7-20) Creatinine 0.6 mg/dL (0.6-1.0) Estimated GFR (Cockcroft-Gault) 118.2 BUN/Creatinine Ratio 20 (6-20) Glucose Level 142 mg/dL (70-99) Calcium Level 9.5 mg/dL (8.5-10.1) Total Bilirubin 0.3 mg/dL (0.2-1.0) Aspartate Amino Transf (AST/SGOT) 21 U/L (15-37) Alanine Aminotransferase (ALT/SGPT) 14 U/L (14-59) Alkaline Phosphatase 80 U/L (46-116) Total Protein 6.2 g/dL (6.4-8.2) Albumin 2.0 g/dL (3.4-5.0) Albumin/Globulin Ratio 0.5 (1.0-1.7) O2 Saturation 94 % (92-99) Arterial Blood pH 7.42 (7.35-7.45) Arterial Blood pCO2 at Patient Temp 46 mmHg (35-46) Arterial Blood pO2 at Patient Temp 73 mmHg (65-108) Arterial Blood HCO3 29 mmol/L (21-28) Arterial Blood Base Excess 4 mmol/L (-3-3) FiO2 40% t-tube Medications Active Scripts Medications Dose Route/Sig Max Daily Dose Days Date Category Clopidogrel (Clopidogrel Bisulfate) 75 Mg Tablet 75 Mg PO DAILYWBKFT 30 12/01/18 Rx Alprazolam 0.25 Mg Tablet 1 Tab PO TID 11/25/18 Reported Flovent 110MCG Hfa (Fluticasone Propionate) 12 Gm Aer.w.adap 2 Puff IH BID 11/25/18 Reported Spironolactone 25 Mg Tablet 1 Tab PO DAILY 11/25/18 Reported Protonix (Pantoprazole Sodium) 20 Mg Tablet.dr 40 Mg PO DAILY 11/25/18 Reported Oxycodone Hcl 5 Mg/5 Ml Solution 5 Mg PO PRN Q4HRS PRN 11/25/18 Reported Lisinopril 2.5 Mg Tablet 2.5 Mg PO DAILY 11/25/18 Reported Guaifenesin 600 Mg Tablet.er 600 Mg PO BID 11/25/18 Reported Sertraline Hcl 50 Mg Tablet 50 Mg PO DAILY 11/25/18 Reported Lasix (Furosemide) 20 Mg Tablet 1 Tab PO DAILY 10/04/18 Rx Proair Hfa Inhaler (Albuterol Sulfate) 8.5 Gm Hfa.aer.ad 1 Puff INH PRN Q6HRS PRN 14 10/04/18 Rx Tramadol Hcl 50 Mg Tablet 1 Tab PO PRN Q6HRS PRN 08/13/18 Reported Duoneb 0.5-3(2.5) Mg/3 Ml (Albuterol/Ipratropium) 3 Ml Ampul.neb 3 Ml NEB QID 04/17/18 Reported Zofran (Ondansetron Hcl) 4 Mg Tablet 1 Tab PO Q8HRS PRN 05/19/16 Rx Atorvastatin Calcium 40 Mg Tablet 40 Mg PO HS 09/24/15 Reported Carvedilol (Carvedilol) 6.25 Mg Tablet 6.25 Mg PO BIDWMEALS 09/24/15 Reported Vitamin D (Cholecalciferol (Vitamin D3)) 2,000 Unit Capsule 2,000 Unit PO BIDAFTMEAL 01/07/15 Reported Aspirin Ec (Aspirin) 325 Mg Tablet.dr 325 Mg PO DAILY 01/07/15 Reported Impression . IMPRESSION: 1. Acute hypoxemic hypercapnic respiratory failure, multifactorial. ACUTE/ CHRONIC ASPIRATION S/P BRONCH 2. Overdose on OxyContin. 3. Chronic interstitial lung disease. 4. Chronic eating disorder, status post PEG tube placement. 5. Depression. 6. Chronic obstructive pulmonary disease. 7. Other comorbidities. 8. Severe cardiomyopathy, ejection fraction 10-15%. 9. Coronary artery disease, status post previous stenting. 10. Acute on chronic systolic, diastolic heart failure. 01/06 BRONCH FINDINGS: 1. Properly positioned endotracheal tube. 2. No endobronchial lesion. 3. Minimal mucous plugging in the bases. Plan . DID WELL ON TRAIL WILL EXUTBATE SO FAR ALL CULTURES NEG ANTIBX PER ID CHRONIC ASPIRATION ON ANTIBX ENTERAL FEEDING DVT GI PROPH SPOKE WITH FAMILY CCT 30 MIN REGGIE CONTRERAS MD Jan 09, 2019 12:07
--- NOTE | 2019-01-09 12:25 | PDOC ---
PROGRESS NOTES History of Present Illness History of Present Illness Assessment/Plan Assessment/Plan IMPRESSION ACUTE RESP FAILURE possible oxycontin accidental overdose HYPOKALEMIA on replacement rx CAD: s/p PCI/stent to RCA in 2014. 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 No intervention performed. Acute on chronic systolic heart failure. Ejection fraction of 10-15%. . Followed by the heart failure clinic. AE COPD and possible PNA. CONSULT pulmonary. bronch 01/07 Severe cardiomyopathy: LVEF at 10-15% AICD in situ; HTN: Severe MR: not a surgical candidate Chronic dysphagia; s/p PEG tube for chronic vomiting AICD. Upgraded // at with epicardial lead placement by surgery. MILD ELEVATION OF TROPONIN I The systolic function is severely impaired. The Ejection Fraction is 20-25%. There is global hypokinesis of the left ventricle. There is mild to moderate concentric left ventricular hypertrophy. plan BRONCH 01/07 CONT icu monitoring vent support hopefully extubate 01/09 cardiology consult frequent labs dvt prophylaxis ID CONSULT PULM following SEPSIS PROTOCOL REPLACE K [id number] 01/08 t-tube trial today 39 min cc time Vitals Vitals Vital Signs Date Time Temp Pulse Resp B/P (MAP) Pulse Ox O2 Delivery O2 Flow Rate FiO2 01/09/19 11:47 100 15.0 01/09/19 11:30 Nasal Cannula 01/09/19 10:08 19 01/09/19 10:00 66 153/93 (113) 01/09/19 07:00 98.0 98.0 Physical Exam Physical Exam GENERAL: Sitting upright in bed, communicate by writing, alert, NAD moves all ext HEENT: ELEONORA, ETT LUNGS: clear HEART: S1, S2, paced ABDOMEN: Nondistended, soft, nontender, PEG : [place] EXTREMITIES: No edema, no cyanosis. SKIN: Warm, dry. No generalized rash. PIV General: Alert, Cooperative, No acute distress, mild distress, Other (less confused, writing on clipboard to communicate) Heart: Regular rate, Normal S1, Other (100% v-paced with underlying SR, distant heart tones) Lungs: Crackles, Other (COARSE) Abdomen: Normal bowel sounds, Soft, No tenderness, No hepatosplenomegaly, No masses Extremities: No cyanosis, No edema, Normal pulses Skin: No significant lesion Labs LABS Laboratory Tests Test 01/09/19 04:20 01/09/19 08:15 White Blood Count 12.0 x10^3/uL (4.0-11.0) Red Blood Count 3.65 x10^6/uL (3.50-5.40) Hemoglobin 10.5 g/dL (12.0-15.5) Hematocrit 33.1 % (36.0-47.0) Mean Corpuscular Volume 91 fL (79-100) Mean Corpuscular Hemoglobin 29 pg (25-35) Mean Corpuscular Hemoglobin Concent 32 g/dL (31-37) Red Cell Distribution Width 14.8 % (11.5-14.5) Platelet Count 194 x10^3/uL (140-400) Neutrophils (%) (Auto) 69 % (31-73) Lymphocytes (%) (Auto) 9 % (24-48) Monocytes (%) (Auto) 8 % (0-9) Eosinophils (%) (Auto) 14 % (0-3) Basophils (%) (Auto) 1 % (0-3) Neutrophils # (Auto) 8.3 x10^3uL (1.8-7.7) Lymphocytes # (Auto) 1.1 x10^3/uL (1.0-4.8) Monocytes # (Auto) 0.9 x10^3/uL (0.0-1.1) Eosinophils # (Auto) 1.6 x10^3/uL (0.0-0.7) Basophils # (Auto) 0.1 x10^3/uL (0.0-0.2) Prothrombin Time 13.9 SEC (11.7-14.0) Prothromb Time International Ratio 1.1 (0.8-1.1) Sodium Level 141 mmol/L (136-145) Potassium Level 3.3 mmol/L (3.5-5.1) Chloride Level 104 mmol/L (98-107) Carbon Dioxide Level 30 mmol/L (21-32) Anion Gap 7 (6-14) Blood Urea Nitrogen 12 mg/dL (7-20) Creatinine 0.6 mg/dL (0.6-1.0) Estimated GFR (Cockcroft-Gault) 118.2 BUN/Creatinine Ratio 20 (6-20) Glucose Level 142 mg/dL (70-99) Calcium Level 9.5 mg/dL (8.5-10.1) Total Bilirubin 0.3 mg/dL (0.2-1.0) Aspartate Amino Transf (AST/SGOT) 21 U/L (15-37) Alanine Aminotransferase (ALT/SGPT) 14 U/L (14-59) Alkaline Phosphatase 80 U/L (46-116) Total Protein 6.2 g/dL (6.4-8.2) Albumin 2.0 g/dL (3.4-5.0) Albumin/Globulin Ratio 0.5 (1.0-1.7) O2 Saturation 94 % (92-99) Arterial Blood pH 7.42 (7.35-7.45) Arterial Blood pCO2 at Patient Temp 46 mmHg (35-46) Arterial Blood pO2 at Patient Temp 73 mmHg (65-108) Arterial Blood HCO3 29 mmol/L (21-28) Arterial Blood Base Excess 4 mmol/L (-3-3) FiO2 40% t-tube Assessment and Plan Assessmemt and Plan Problems Medical Problems: (1) COPD exacerbation Status: Acute (2) Respiratory failure with hypoxia Status: Acute Comment Review of Relevant I have reviewed the following items loren (where applicable) has been applied. Labs Laboratory Tests Test 01/08/19 06:10 01/08/19 07:40 01/09/19 04:20 01/09/19 08:15 White Blood Count 13.2 x10^3/uL (4.0-11.0) 12.0 x10^3/uL (4.0-11.0) Red Blood Count 3.42 x10^6/uL (3.50-5.40) 3.65 x10^6/uL (3.50-5.40) Hemoglobin 10.1 g/dL (12.0-15.5) 10.5 g/dL (12.0-15.5) Hematocrit 31.2 % (36.0-47.0) 33.1 % (36.0-47.0) Mean Corpuscular Volume 91 fL (79-100) 91 fL (79-100) Mean Corpuscular Hemoglobin 30 pg (25-35) 29 pg (25-35) Mean Corpuscular Hemoglobin Concent 33 g/dL (31-37) 32 g/dL (31-37) Red Cell Distribution Width 14.8 % (11.5-14.5) 14.8 % (11.5-14.5) Platelet Count 159 x10^3/uL (140-400) 194 x10^3/uL (140-400) Neutrophils (%) (Auto) 64 % (31-73) 69 % (31-73) Lymphocytes (%) (Auto) 11 % (24-48) 9 % (24-48) Monocytes (%) (Auto) 7 % (0-9) 8 % (0-9) Eosinophils (%) (Auto) 18 % (0-3) 14 % (0-3) Basophils (%) (Auto) 0 % (0-3) 1 % (0-3) Neutrophils # (Auto) 8.5 x10^3uL (1.8-7.7) 8.3 x10^3uL (1.8-7.7) Lymphocytes # (Auto) 1.5 x10^3/uL (1.0-4.8) 1.1 x10^3/uL (1.0-4.8) Monocytes # (Auto) 0.9 x10^3/uL (0.0-1.1) 0.9 x10^3/uL (0.0-1.1) Eosinophils # (Auto) 2.4 x10^3/uL (0.0-0.7) 1.6 x10^3/uL (0.0-0.7) Basophils # (Auto) 0.0 x10^3/uL (0.0-0.2) 0.1 x10^3/uL (0.0-0.2) Prothrombin Time 14.1 SEC (11.7-14.0) 13.9 SEC (11.7-14.0) Prothromb Time International Ratio 1.1 (0.8-1.1) 1.1 (0.8-1.1) Sodium Level 142 mmol/L (136-145) 141 mmol/L (136-145) Potassium Level 3.4 mmol/L (3.5-5.1) 3.3 mmol/L (3.5-5.1) Chloride Level 106 mmol/L (98-107) 104 mmol/L (98-107) Carbon Dioxide Level 28 mmol/L (21-32) 30 mmol/L (21-32) Anion Gap 8 (6-14) 7 (6-14) Blood Urea Nitrogen 14 mg/dL (7-20) 12 mg/dL (7-20) Creatinine 0.6 mg/dL (0.6-1.0) 0.6 mg/dL (0.6-1.0) Estimated GFR (Cockcroft-Gault) 118.2 118.2 BUN/Creatinine Ratio 23 (6-20) 20 (6-20) Glucose Level 167 mg/dL (70-99) 142 mg/dL (70-99) Calcium Level 8.9 mg/dL (8.5-10.1) 9.5 mg/dL (8.5-10.1) Total Bilirubin 0.2 mg/dL (0.2-1.0) 0.3 mg/dL (0.2-1.0) Aspartate Amino Transf (AST/SGOT) 11 U/L (15-37) 21 U/L (15-37) Alanine Aminotransferase (ALT/SGPT) 9 U/L (14-59) 14 U/L (14-59) Alkaline Phosphatase 77 U/L (46-116) 80 U/L (46-116) Total Protein 5.5 g/dL (6.4-8.2) 6.2 g/dL (6.4-8.2) Albumin 1.7 g/dL (3.4-5.0) 2.0 g/dL (3.4-5.0) Albumin/Globulin Ratio 0.4 (1.0-1.7) 0.5 (1.0-1.7) O2 Saturation 97 % (92-99) 94 % (92-99) Arterial Blood pH 7.39 (7.35-7.45) 7.42 (7.35-7.45) Arterial Blood pCO2 at Patient Temp 49 mmHg (35-46) 46 mmHg (35-46) Arterial Blood pO2 at Patient Temp 107 mmHg (65-108) 73 mmHg (65-108) Arterial Blood HCO3 29 mmol/L (21-28) 29 mmol/L (21-28) Arterial Blood Base Excess 3 mmol/L (-3-3) 4 mmol/L (-3-3) FiO2 40 40% t-tube Laboratory Tests Test 01/09/19 04:20 01/09/19 08:15 White Blood Count 12.0 x10^3/uL (4.0-11.0) Red Blood Count 3.65 x10^6/uL (3.50-5.40) Hemoglobin 10.5 g/dL (12.0-15.5) Hematocrit 33.1 % (36.0-47.0) Mean Corpuscular Volume 91 fL (79-100) Mean Corpuscular Hemoglobin 29 pg (25-35) Mean Corpuscular Hemoglobin Concent 32 g/dL (31-37) Red Cell Distribution Width 14.8 % (11.5-14.5) Platelet Count 194 x10^3/uL (140-400) Neutrophils (%) (Auto) 69 % (31-73) Lymphocytes (%) (Auto) 9 % (24-48) Monocytes (%) (Auto) 8 % (0-9) Eosinophils (%) (Auto) 14 % (0-3) Basophils (%) (Auto) 1 % (0-3) Neutrophils # (Auto) 8.3 x10^3uL (1.8-7.7) Lymphocytes # (Auto) 1.1 x10^3/uL (1.0-4.8) Monocytes # (Auto) 0.9 x10^3/uL (0.0-1.1) Eosinophils # (Auto) 1.6 x10^3/uL (0.0-0.7) Basophils # (Auto) 0.1 x10^3/uL (0.0-0.2) Prothrombin Time 13.9 SEC (11.7-14.0) Prothromb Time International Ratio 1.1 (0.8-1.1) Sodium Level 141 mmol/L (136-145) Potassium Level 3.3 mmol/L (3.5-5.1) Chloride Level 104 mmol/L (98-107) Carbon Dioxide Level 30 mmol/L (21-32) Anion Gap 7 (6-14) Blood Urea Nitrogen 12 mg/dL (7-20) Creatinine 0.6 mg/dL (0.6-1.0) Estimated GFR (Cockcroft-Gault) 118.2 BUN/Creatinine Ratio 20 (6-20) Glucose Level 142 mg/dL (70-99) Calcium Level 9.5 mg/dL (8.5-10.1) Total Bilirubin 0.3 mg/dL (0.2-1.0) Aspartate Amino Transf (AST/SGOT) 21 U/L (15-37) Alanine Aminotransferase (ALT/SGPT) 14 U/L (14-59) Alkaline Phosphatase 80 U/L (46-116) Total Protein 6.2 g/dL (6.4-8.2) Albumin 2.0 g/dL (3.4-5.0) Albumin/Globulin Ratio 0.5 (1.0-1.7) O2 Saturation 94 % (92-99) Arterial Blood pH 7.42 (7.35-7.45) Arterial Blood pCO2 at Patient Temp 46 mmHg (35-46) Arterial Blood pO2 at Patient Temp 73 mmHg (65-108) Arterial Blood HCO3 29 mmol/L (21-28) Arterial Blood Base Excess 4 mmol/L (-3-3) FiO2 40% t-tube Microbiology 01/04/19 Blood Culture - Preliminary, Resulted NO GROWTH AFTER 4 DAYS 01/07/19 - Final, Resulted 01/07/19 - Final, Resulted 01/07/19 - Final, Resulted 01/07/19 Gram Stain Evaluation - Final, Resulted 01/07/19 Sputum Culture - Preliminary, Resulted 01/07/19 Sputum Result 1 - Final, Resulted 01/04/19 Urine Culture - Final, Complete 01/04/19 Urine Culture Result 1 (SARAH BETH) - Final, Complete Medications Current Medications Etomidate (Amidate) 10 mg 1X ONCE IV Last administered on 01/04/19 11:39; Start 01/04/19 at 12:00; Stop 01/04/19 at 12:01; Status DC Succinylcholine Chloride (Anectine) 50 mg 1X ONCE IV Last administered on 01/04 11:39; Start 01/04/19 at 12:00; Stop 01/04/19 at 12:01; Status DC Fentanyl Citrate (Fentanyl 2ml Vial) 25 mcg PRN Q1HR PRN IV SEE COMMENTS Last administered on 01/08/19 08:38; Start 01/04/19 at 11:45 Fentanyl Citrate (Fentanyl 2ml Vial) 50 mcg PRN Q1HR PRN IV SEE COMMENTS Last administered on 01/09/19at 11:47; Start 01/04/19 at 11:45 Chlorhexidine Gluconate (Peridex) 15 ml BID MM Last administered on 01/09/19 09:29; Start 01/04/19 at 21:00 Famotidine (Pepcid Vial) 20 mg BID IVP Last administered on 01/05/19 09:04; Start 01/04/19 at 21:00; Stop 01/05/19 at 10:32; Status DC Morphine Sulfate (Morphine Sulfate) 2 mg PRN Q1HR PRN IV SEE COMMENTS. Last administered on 01/08/19at 23:42; Start 01/04/19 at 11:45 Midazolam HCl 100 ml @ 0 mls/hr CONT PRN IV SEE PROTOCOL Last administered on at 01:01; Start 01/04/19 at 12:00; Stop 01/07/19 at 11:43; Status DC Midazolam HCl (Versed) 5 mg STK-MED ONCE .ROUTE ; Start 01/04/19 at 12:10; Stop 01/04/19 at 12:11; Status DC Albuterol/ Ipratropium (Duoneb) 6 ml 1X ONCE NEB Last administered on at 13:12; Start 01/04/19 at 12:30; Stop 01/04/19 at 12:31; Status DC Methylprednisolone Sodium Succinate (SOLU-Medrol 125MG VIAL) 125 mg 1X ONCE IV Last administered on 01/04/19at 12:44; Start 01/04/19 at 12:30; Stop 01/04/19 at 12:31; Status DC Midazolam HCl (Versed) 5 mg STK-MED ONCE .ROUTE ; Start 01/04/19 at 12:40; Stop 01/04/19 at 12:41; Status DC Sodium Chloride 1,000 ml @ 125 mls/hr Q8H IV Last administered on 01/05/19 06 :21; Start 01/04/19 at 14:00; Stop 01/05/19 at 13:59; Status DC Albuterol/ Ipratropium (Duoneb) 3 ml RTQID NEB Last administered on 01/05/19at 15:53; Start 01/04/19 at 16:00; Stop 01/05/19 at 15:59; Status DC Midazolam HCl (Versed) 5 mg 1X ONCE IV Last administered on 01/04/19at 11:57; Start 01/04/19 at 13:30; Stop 01/04/19 at 13:31; Status DC Midazolam HCl (Versed) 5 mg 1X ONCE IV Last administered on 01/04/19at 14:00; Start 01/04/19 at 15:15; Stop 01/04/19 at 15:16; Status DC Levofloxacin/ Dextrose 100 ml @ 100 mls/hr 1X ONCE IV Last administered on at 18:34; Start 01/04/19 at 18:00; Stop 01/04/19 at 18:59; Status DC Sodium Chloride 1,000 ml @ 1,710 mls/hr Q36M IV Last administered on at 20:39; Start 01/04/19 at 18:30; Stop 01/04/19 at 19:30; Status DC Sodium Chloride 500 ml @ 1,000 mls/hr PRN Q30MIN PRN IV SEE COMMENTS; Start at 18:00 Vancomycin HCl (Vanco Per Pharmacy) 1 each PRN DAILY PRN MC SEE COMMENTS Last administered on 01/04/19at 20:07; Start 01/04/19 at 18:00; Stop 01/05/19 at 07:48 ; Status DC Levofloxacin/ Dextrose 50 ml @ 50 mls/hr Q24H IV ; Start 01/05/19 at 18:00; Stop 01/05/19 at 18:00; Status DC Vancomycin HCl 1 gm/Sodium Chloride 250 ml @ 250 mls/hr 1X ONCE IV Last administered on 01/04/19at 19:42; Start 01/04/19 at 19:00; Stop 01/04/19 at 19:59 ; Status DC Vancomycin HCl 750 mg/Sodium Chloride 250 ml @ 250 mls/hr Q24H IV ; Start 01/05 at 20:00; Stop 01/05/19 at 20:00; Status DC Vancomycin HCl (Vancomycin Trough Level) 1 each 1X ONCE MC ; Start 01/06/19 at 19:30; Stop 01/06/19 at 19:30; Status DC Furosemide (Lasix) 20 mg 1X ONCE IVP Last administered on 01/05/19at 03:19; Start 01/05/19 at 02:45; Stop 01/05/19 at 02:46; Status DC Aspirin (Andrea Aspirin) 325 mg DAILYWBKFT PO Last administered on 01/09/19 09: 28; Start 01/05/19 at 11:00 Atorvastatin Calcium (Lipitor) 40 mg HS PO Last administered on 01/08/19 21:27 ; Start 01/05/19 at 21:00 Carvedilol (Coreg) 6.25 mg BIDWMEALS PO Last administered on 01/09/19 09:29; Start 01/05/19 at 11:00 Clopidogrel Bisulfate (Plavix) 75 mg DAILYWBKFT PO Last administered on 09:28; Start 01/05/19 at 11:00 Lisinopril (Prinivil) 2.5 mg DAILY PO Last administered on 01/09/19 09:29; Start 01/05/19 at 11:00 Famotidine (Pepcid Vial) 20 mg DAILY IVP Last administered on 01/09/19 09:29; Start 01/06/19 at 09:00 Piperacillin Sod/ Tazobactam Sod 3.375 gm/Sodium Chloride 50 ml @ 100 mls/hr Q6HRS IV Last administered on 01/09/19 11:48; Start 01/05/19 at 11:00 Enoxaparin Sodium (Lovenox Per Pharmacy Treatment Dosing) 1 each PRN DAILY PRN MC SEE COMMENTS; Start 01/05/19 at 10:45; Stop 01/05/19 at 14:06; Status DC Enoxaparin Sodium (Lovenox 60mg Syringe) 50 mg DAILY SQ Last administered on at 10:58; Start 01/05/19 at 11:30; Stop 01/05/19 at 14:08; Status DC Fentanyl Citrate 30 ml @ 0 mls/hr CONT PRN IV SEE PROTOCOL Last administered on 01/06/19 09:54; Start 01/05/19 at 12:15; Stop 01/07/19 at 11:43; Status DC Chlorhexidine Gluconate (Peridex) 15 ml BID MM ; Start 01/05/19 at 21:00; Status UNV Enoxaparin Sodium (Lovenox 30mg Syringe) 30 mg Q24H SQ Last administered on 09:28; Start 01/06/19 at 09:00 Albuterol/ Ipratropium (Duoneb) 3 ml RTQID NEB Last administered on 01/09/19at 11:00; Start 01/05/19 at 16:00 Sodium Chloride 1,000 ml @ 125 mls/hr Q8H IV Last administered on 01/07/19at 04 :28; Start 01/05/19 at 22:00; Stop 01/07/19 at 11:43; Status DC Sodium Chloride 500 ml @ 500 mls/hr 1X ONCE IV ; Start 01/05/19 at 22:00; Stop 01/05/19 at 22:59; Status DC Furosemide (Lasix) 20 mg DAILY PO Last administered on 01/09/19at 09:33; Start 01/06/19 at 15:00 Potassium Chloride (KCl Oral Soln) 40 meq 1X ONCE PEG Last administered on at 08:17; Start 01/07/19 at 07:30; Stop 01/07/19 at 07:31; Status DC Dexmedetomidine HCl 200 mcg/ Sodium Chloride 50 ml @ 0 mls/hr CONT PRN IV PER PROTOCOL Last administered on 01/09/19at 08:56; Start 01/07/19 at 14:15 Sodium Chloride 500 ml @ 500 mls/hr 1X PRN PRN IV SEE COMMENTS; Start at 14:15 Atropine Sulfate (ATROPINE 0.5mg SYRINGE) 0.5 mg PRN Q5MIN PRN IV SEE COMMENTS ; Start 01/07/19 at 14:15 Furosemide (Lasix) 20 mg 1X ONCE IVP Last administered on 01/07/19at 14:30; Start 01/07/19 at 14:30; Stop 01/07/19 at 14:31; Status DC Hydralazine HCl (Apresoline Inj) 10 mg PRN Q4HRS PRN IVP ELEVATED BP, SEE COMMENTS; Start 01/07/19 at 14:30 Potassium Chloride/Water 50 ml @ 50 mls/hr 1X ONCE IV ; Start 01/08/19 at 12:00 ; Stop 01/08/19 at 12:59; Status UNV Potassium Chloride/Water 100 ml @ 100 mls/hr Q1H IV Last administered on at 14:36; Start 01/08/19 at 12:00; Stop 01/08/19 at 13:59; Status DC Potassium Chloride/Water 100 ml @ 100 mls/hr Q1H IV Last administered on at 11:47; Start 01/09/19 at 12:00; Stop 01/09/19 at 13:59 Active Scripts Active Clopidogrel (Clopidogrel Bisulfate) 75 Mg Tablet 75 Mg PO DAILYWBKFT 30 Days Lasix (Furosemide) 20 Mg Tablet 1 Tab PO DAILY Proair Hfa Inhaler (Albuterol Sulfate) 8.5 Gm Hfa.aer.ad 1 Puff INH PRN Q6HRS PRN 14 Days Zofran (Ondansetron Hcl) 4 Mg Tablet 1 Tab PO Q8HRS PRN Reported Alprazolam 0.25 Mg Tablet 1 Tab PO TID Flovent 110MCG Hfa (Fluticasone Propionate) 12 Gm Aer.w.adap 2 Puff IH BID Spironolactone 25 Mg Tablet 1 Tab PO DAILY Protonix (Pantoprazole Sodium) 20 Mg Tablet.dr 40 Mg PO DAILY Oxycodone Hcl 5 Mg/5 Ml Solution 5 Mg PO PRN Q4HRS PRN Lisinopril 2.5 Mg Tablet 2.5 Mg PO DAILY Guaifenesin 600 Mg Tablet.er 600 Mg PO BID Sertraline Hcl 50 Mg Tablet 50 Mg PO DAILY Tramadol Hcl 50 Mg Tablet 1 Tab PO PRN Q6HRS PRN Duoneb 0.5-3(2.5) Mg/3 Ml (Albuterol/Ipratropium) 3 Ml Ampul.neb 3 Ml NEB QID Atorvastatin Calcium 40 Mg Tablet 40 Mg PO HS Carvedilol (Carvedilol) 6.25 Mg Tablet 6.25 Mg PO BIDWMEALS Vitamin D (Cholecalciferol (Vitamin D3)) 2,000 Unit Capsule 2,000 Unit PO BIDAFTMEAL Aspirin Ec (Aspirin) 325 Mg Tablet.dr 325 Mg PO DAILY Vitals/I & O Vital Sign - Last 24 Hours 01/08/19 01/08/19 01/08/19 01/08/19 12:40 13:00 14:03 15:00 Temp 98.0 98.0 Pulse 60 59 62 Resp 15 16 17 B/P (MAP) 146/71 (96) 150/75 (100) 152/78 (102) Pulse Ox 98 100 100 100 O2 Delivery Ventilator Ventilator Ventilator 01/08/19 01/08/19 01/08/19 01/08/19 15:04 16:00 16:00 16:49 Pulse 68 Resp 22 B/P (MAP) 136/67 (90) Pulse Ox 100 99 100 O2 Delivery Ventilator Ventilator Mechanical Ventilator O2 Flow Rate 15.0 01/08/19 01/08/19 01/08/19 01/08/19 17:00 18:16 18:22 19:00 Pulse 63 59 59 62 Resp 16 17 16 B/P (MAP) 150/74 (99) 146/71 146/71 (96) 154/76 (102) Pulse Ox 100 100 100 O2 Delivery Ventilator Ventilator 01/08/19 01/08/19 01/08/19 01/08/19 19:47 20:00 20:00 20:26 Temp 98.1 98.1 Pulse 62 Resp 16 B/P (MAP) 174/91 (118) Pulse Ox 100 100 100 O2 Delivery Ventilator Mechanical Ventilator Ventilator O2 Flow Rate 15.0 01/08/19 01/08/19 01/08/19 01/08/19 21:00 21:27 22:00 23:00 Pulse 78 62 66 Resp 16 16 16 B/P (MAP) 140/63 (88) 133/62 (85) 154/73 (100) Pulse Ox 100 100 100 100 O2 Delivery Ventilator Ventilator Ventilator O2 Flow Rate 15.0 01/08/19 01/08/19 01/09/19 01/09/19 23:31 23:42 00:01 00:01 Temp 98.0 98.0 Pulse 66 Resp 16 B/P (MAP) 155/84 (107) Pulse Ox 100 100 100 O2 Delivery Ventilator Ventilator Ventilator Mechanical Ventilator 01/09/19 01/09/19 01/09/19 01/09/19 00:12 01:00 01:12 01:59 Pulse 81 Resp 16 B/P (MAP) 156/86 (109) Pulse Ox 100 100 100 100 O2 Delivery Ventilator Ventilator Ventilator O2 Flow Rate 15.0 01/09/19 01/09/19 01/09/19 01/09/19 02:00 03:00 03:32 04:00 Temp 97.9 97.9 Pulse 64 72 62 Resp 16 16 16 B/P (MAP) 149/89 (109) 160/75 (103) 135/72 (93) Pulse Ox 100 100 100 100 O2 Delivery Ventilator Ventilator Ventilator O2 Flow Rate 15.0 01/09/19 01/09/19 01/09/19 01/09/19 04:00 04:46 05:00 06:00 Pulse 64 62 Resp 16 16 B/P (MAP) 125/66 (85) 155/77 (103) Pulse Ox 99 100 100 O2 Delivery Mechanical Ventilator Ventilator Ventilator Ventilator 01/09/19 01/09/19 01/09/19 01/09/19 06:07 06:37 07:00 07:24 Temp 98.0 98.0 Pulse 70 Resp 16 B/P (MAP) 146/71 (96) Pulse Ox 99 99 100 O2 Delivery Ventilator Ventilator Ventilator O2 Flow Rate 15.0 01/09/19 01/09/19 01/09/19 01/09/19 07:28 07:45 08:00 08:00 Pulse 72 Resp 17 B/P (MAP) 141/77 (98) Pulse Ox 100 100 98 O2 Delivery Ventilator Mechanical Ventilator O2 Flow Rate 15.0 01/09/19 01/09/19 01/09/19 01/09/19 08:21 09:00 09:29 09:29 Pulse 56 69 66 Resp 17 B/P (MAP) 138/63 (88) 138/63 138/63 Pulse Ox 98 100 O2 Delivery Ventilator Ventilator 01/09/19 01/09/19 01/09/19 01/09/19 09:38 10:00 10:08 11:00 Pulse 66 Resp 20 19 B/P (MAP) 153/93 (113) Pulse Ox 98 100 100 100 O2 Delivery Ventilator Ventilator O2 Flow Rate 15.0 15.0 01/09/19 01/09/19 11:30 11:47 Pulse Ox 100 O2 Delivery Nasal Cannula O2 Flow Rate 4.0 15.0 Intake and Output 01/08/19 01/08/19 01/09/19 15:00 23:00 07:00 Intake Total 140 ml 180 ml 2833 ml Output Total 635 ml 635 ml 270 ml Balance -495 ml -455 ml 2563 ml Nutrition Consultation Dietary Evaluation: Recommendations by RD: Increase Calorie Intake Comments: Recommend osmolite 1.2 starting at 20mL/hr, increasing 10mL @ 8hr until goal rate of 45mL/hr w/ 50mL water flushes Q 4hr. Expected Outcomes/Goals: TF to meet >75% estimated needs Interpretation of weight loss: >20% in 1 year Malnutrition Findings: Body Fat Depletion (Non Severe: Mild Depletion Weight Status: Underweight BAYLEE SIMS MD Jan 09, 2019 12:25
[2019-01-09] MEDS ORDERED: traMADol 50 MG TABLET PO PRN (20:00)
[2019-01-09] MEDS: ATORVASTATIN CALCIUM 40 MG TABLET. PO SCH (20:40)
[2019-01-09] MEDS: ALPRAZolam 0.25 MG TABLET PO SCH (20:40)
[2019-01-09] MEDS: oxyCODONE IR 5 MG TABLET PO PRN (20:41)
[2019-01-10] VITALS (15 sets, daily range): BP systolic 143–184; BP diastolic 69–92
--- NOTE | 2019-01-10 02:30 | NUR ---
Nursing Note Pt called the nurse into the room, she had pulled out her leung catheter with balloon intact. Pt states she was never aware she had a leung and didn't know what it was for so she pulled it out. Pt states only having slight pain at site, but no bleeding noted. Pt cleaned her own bianca area up with wipes, doesn't want a pull up on, only pajama pants. States she knows when she needs to urinate, and that she would call when she needed to void next. Pt reeducated about leaving the tubes and equipment alone and to call for any questions. Pt vu. Will monitor.
[2019-01-10] MEDS: fentaNYL PF VIAL 100 MCG/2 ML VIAL IV PRN (03:44)
[2019-01-10] MEDS: ALBUTEROL SULFATE 2.5 MG/3 ML NEBU. NEB PRN (04:19)
[2019-01-10] MEDS: PIPERACILLIN/TAZOBACTAM 3.375 GM in IV NORMAL SALINE 50ML 50 ML IV SCH ×3 (06:10→17:48)
--- NOTE | 2019-01-10 07:00 | PDOC ---
Infectious Disease Note Subjective Subjective Doing well and very hungry. No sleeping No F/C/S/SOA. + cough with sputum. ROS ROS o/w neg Vital Sign Vital Signs Vital Signs Date Time Temp Pulse Resp B/P (MAP) Pulse Ox O2 Delivery O2 Flow Rate FiO2 01/10/19 06:01 87 20 157/82 (107) 98 Nasal Cannula 2.0 01/10/19 04:00 98.7 98.7 Physical Exam PHYSICAL EXAM GENERAL: Sitting upright in bed, trying to communicate by writing, alert, NAD . Extubated and Sitting on side of bed and returned from [employer]. Doingo k HEENT: ELEONORA, ETT. ETT out - OC- clear LUNGS: clear HEART: S1, S2, paced ABDOMEN: Nondistended, soft, nontender, PEG : [place] EXTREMITIES: No edema, no cyanosis. Trace edema SKIN: Warm, dry. No generalized rash. NEURO: Coop and answering questions PIV Labs Lab Laboratory Tests Test 01/09/19 08:15 O2 Saturation 94 % (92-99) Arterial Blood pH 7.42 (7.35-7.45) Arterial Blood pCO2 at Patient Temp 46 mmHg (35-46) Arterial Blood pO2 at Patient Temp 73 mmHg (65-108) Arterial Blood HCO3 29 mmol/L (21-28) Arterial Blood Base Excess 4 mmol/L (-3-3) FiO2 40% t-tube Micro Microbiology 01/04/19 Blood Culture - Final, Complete NO GROWTH AFTER 5 DAYS 01/07/19 - Final, Resulted 01/07/19 - Final, Resulted 01/07/19 - Final, Resulted 01/07/19 Gram Stain Evaluation - Final, Resulted 01/07/19 Sputum Culture - Preliminary, Resulted 01/07/19 Sputum Result 1 - Final, Resulted 01/04/19 Urine Culture - Final, Complete 01/04/19 Urine Culture Result 1 (SARAH BETH) - Final, Complete Objective Assessment Febrile illness source resp resolved cults neg so far Leucocytosis, improving Lactic acidosis resolved PENICILLIN allergy, but has tolerated amoxicillin per chart review Acute resp failure appears multifactorial, aspiration - s/p bronchoscopy, 01/06 culture routine resp orquidea - now extubated Overdose on OxyContin. H/O Chronic interstitial lung disease. COPD h/o severe Cardiomyopathy, EF 10-15 % CAD/CHF Depression Chronic dysphagia; s/p PEG tube for chronic vomiting AICD HTN Severe MR,not a surgical candidate Plan Plan of Care Zosyn since 01/05 wean soon monitor labs/temp Ok to transfer up Await Speech eval Supportive care D/w TAMIKO JOVEL MD Jan 10, 2019 07:00
[2019-01-10] MEDS: LISINOPRIL 5 MG TABLET. PO SCH (08:33)
[2019-01-10] MEDS: ASPIRIN 325 MG TABLET PO SCH (08:33)
[2019-01-10] MEDS: ENOXAPARIN 30 MG/0.3 ML SYRINGE. SQ SCH (08:34)
[2019-01-10] MEDS: CARVEDILOL 6.25 MG TABLET. PO SCH ×2 (08:34→16:37)
[2019-01-10] MEDS: FUROSEMIDE 20 MG TABLET PO SCH (08:34)
[2019-01-10] MEDS: CLOPIDOGREL BISULFATE 75 MG TABLET PO SCH (08:34)
[2019-01-10] MEDS: FAMOTIDINE 20 MG/2 ML VIAL IVP SCH (08:35)
[2019-01-10] MEDS: ALPRAZolam 0.25 MG TABLET PO SCH ×3 (08:36→21:00)
[2019-01-10] MEDS: IPRATRPIUM/ALBUTEROL 0.5/2.5MG 3 ML NEBU. NEB SCH ×4 (08:41→20:26)
--- NOTE | 2019-01-10 08:57 | PDOC ---
PULMONARY PROGRESS NOTES Subjective UP IN CHAIR EXTUBATED 01/09 Vitals Vital Signs Date Time Temp Pulse Resp B/P (MAP) Pulse Ox O2 Delivery O2 Flow Rate FiO2 01/10/19 08:41 100 Nasal Cannula 2.0 01/10/19 08:34 67 165/92 01/10/19 08:00 21 01/10/19 07:00 98.7 98.7 ROS: No Nausea, No Chest Pain, No Abdominal Pain Lungs: Crackles Cardiovascular: S1, S2 Abdomen: Soft Neuro Exam: Alert Extremities: No Edema Skin: Warm Labs Laboratory Tests Test 01/09/19 04:20 01/09/19 08:15 White Blood Count 12.0 x10^3/uL (4.0-11.0) Red Blood Count 3.65 x10^6/uL (3.50-5.40) Hemoglobin 10.5 g/dL (12.0-15.5) Hematocrit 33.1 % (36.0-47.0) Mean Corpuscular Volume 91 fL (79-100) Mean Corpuscular Hemoglobin 29 pg (25-35) Mean Corpuscular Hemoglobin Concent 32 g/dL (31-37) Red Cell Distribution Width 14.8 % (11.5-14.5) Platelet Count 194 x10^3/uL (140-400) Neutrophils (%) (Auto) 69 % (31-73) Lymphocytes (%) (Auto) 9 % (24-48) Monocytes (%) (Auto) 8 % (0-9) Eosinophils (%) (Auto) 14 % (0-3) Basophils (%) (Auto) 1 % (0-3) Neutrophils # (Auto) 8.3 x10^3uL (1.8-7.7) Lymphocytes # (Auto) 1.1 x10^3/uL (1.0-4.8) Monocytes # (Auto) 0.9 x10^3/uL (0.0-1.1) Eosinophils # (Auto) 1.6 x10^3/uL (0.0-0.7) Basophils # (Auto) 0.1 x10^3/uL (0.0-0.2) Prothrombin Time 13.9 SEC (11.7-14.0) Prothromb Time International Ratio 1.1 (0.8-1.1) Sodium Level 141 mmol/L (136-145) Potassium Level 3.3 mmol/L (3.5-5.1) Chloride Level 104 mmol/L (98-107) Carbon Dioxide Level 30 mmol/L (21-32) Anion Gap 7 (6-14) Blood Urea Nitrogen 12 mg/dL (7-20) Creatinine 0.6 mg/dL (0.6-1.0) Estimated GFR (Cockcroft-Gault) 118.2 BUN/Creatinine Ratio 20 (6-20) Glucose Level 142 mg/dL (70-99) Calcium Level 9.5 mg/dL (8.5-10.1) Total Bilirubin 0.3 mg/dL (0.2-1.0) Aspartate Amino Transf (AST/SGOT) 21 U/L (15-37) Alanine Aminotransferase (ALT/SGPT) 14 U/L (14-59) Alkaline Phosphatase 80 U/L (46-116) Total Protein 6.2 g/dL (6.4-8.2) Albumin 2.0 g/dL (3.4-5.0) Albumin/Globulin Ratio 0.5 (1.0-1.7) O2 Saturation 94 % (92-99) Arterial Blood pH 7.42 (7.35-7.45) Arterial Blood pCO2 at Patient Temp 46 mmHg (35-46) Arterial Blood pO2 at Patient Temp 73 mmHg (65-108) Arterial Blood HCO3 29 mmol/L (21-28) Arterial Blood Base Excess 4 mmol/L (-3-3) FiO2 40% t-tube Medications Active Scripts Medications Dose Route/Sig Max Daily Dose Days Date Category Clopidogrel (Clopidogrel Bisulfate) 75 Mg Tablet 75 Mg PO [id number] 30 12/01/18 Rx Alprazolam 0.25 Mg Tablet 1 Tab PO TID 11/25/18 Reported Flovent 110MCG Hfa (Fluticasone Propionate) 12 Gm Aer.w.adap 2 Puff IH BID 11/25/18 Reported Spironolactone 25 Mg Tablet 1 Tab PO DAILY 11/25/18 Reported Protonix (Pantoprazole Sodium) 20 Mg Tablet.dr 40 Mg PO DAILY 11/25/18 Reported Oxycodone Hcl 5 Mg/5 Ml Solution 5 Mg PO PRN Q4HRS PRN 11/25/18 Reported Lisinopril 2.5 Mg Tablet 2.5 Mg PO DAILY 11/25/18 Reported Guaifenesin 600 Mg Tablet.er 600 Mg PO BID 11/25/18 Reported Sertraline Hcl 50 Mg Tablet 50 Mg PO DAILY 11/25/18 Reported Lasix (Furosemide) 20 Mg Tablet 1 Tab PO DAILY 10/04/18 Rx Proair Hfa Inhaler (Albuterol Sulfate) 8.5 Gm Hfa.aer.ad 1 Puff INH PRN Q6HRS PRN 14 10/04/18 Rx Tramadol Hcl 50 Mg Tablet 1 Tab PO PRN Q6HRS PRN 08/13/18 Reported Duoneb 0.5-3(2.5) Mg/3 Ml (Albuterol/Ipratropium) 3 Ml Ampul.neb 3 Ml NEB QID 04/17/18 Reported Zofran (Ondansetron Hcl) 4 Mg Tablet 1 Tab PO Q8HRS PRN 05/19/16 Rx Atorvastatin Calcium 40 Mg Tablet 40 Mg PO HS 09/24/15 Reported Carvedilol (Carvedilol) 6.25 Mg Tablet 6.25 Mg PO BIDWMEALS 09/24/15 Reported Vitamin D (Cholecalciferol (Vitamin D3)) 2,000 Unit Capsule 2,000 Unit PO BIDAFTMEAL 01/07/15 Reported Aspirin Ec (Aspirin) 325 Mg Tablet.dr 325 Mg PO DAILY 01/07/15 Reported Impression . IMPRESSION: 1. Acute hypoxemic hypercapnic respiratory failure, multifactorial. ACUTE/ CHRONIC ASPIRATION S/P BRONCH 2. Overdose on OxyContin. 3. Chronic interstitial lung disease. SEC TO CHRONIC ASPIRATION 4. Chronic eating disorder, status post PEG tube placement. 5. Depression. 6. Chronic obstructive pulmonary disease. 7. Other comorbidities. 8. Severe cardiomyopathy, ejection fraction 10-15%. 9. Coronary artery disease, status post previous stenting. 10. Acute on chronic systolic, diastolic heart failure. BAL ORDERED: BRONCH CULTURE Procedure Result BRONCH CULTURE Final Final report BRONCH RES 1 Final Comment Routine respiratory orquidea [facility]formed at: [facility] [id number], [place], [place] [id number] 01/06 BRONCH FINDINGS: 1. Properly positioned endotracheal tube. 2. No endobronchial lesion. 3. Minimal mucous plugging in the bases. Plan . FAILED SPEECH EVAL NPO FOR NOW OK TO TRANSFER TO FLOOR D/W RN PT DOES NOT WANT TO BE ON HOSPICE SO FAR ALL CULTURES NEG ANTIBX PER ID G FEEDING DVT GI PROPH CCT 30 MIN REGGIE CONTRERAS MD Jan 10, 2019 08:57
[2019-01-10 09:26] LABS: BASO % 1 % (0-3); EOS # 2.5 x10^3/uL (0.0-0.7); EOS % 25 % (0-3); HEMATOCRIT 34.3 % (36.0-47.0); LYMPH # 1.4 x10^3/uL (1.0-4.8); LYMPH % 14 % (24-48); MEAN CORPUSCULAR HEMOGLOBIN 29 pg (25-35); MEAN CORPUSCULAR HGB CONC 32 g/dL (31-37); MEAN CORPUSCULAR VOLUME 90 fL (79-100); MONO # 0.9 x10^3/uL (0.0-1.1); MONO % 9 % (0-9); NEUT # 5.3 x10^3uL (1.8-7.7); NEUT % 52 % (31-73); PLATELET COUNT 235 x10^3/uL (140-400); RED BLOOD COUNT 3.82 x10^6/uL (3.50-5.40); RED CELL DISTRIBUTION WIDTH 14.5 % (11.5-14.5); WHITE BLOOD COUNT 10.2 x10^3/uL (4.0-11.0)
[2019-01-10 09:36] LABS: ALBUMIN/GLOBULIN RATIO 0.5 (1.0-1.7); CALCIUM 9.2 mg/dL (8.5-10.1); CREATININE 0.6 mg/dL (0.6-1.0); GFR 118.2; TOTAL BILIRUBIN 0.4 mg/dL (0.2-1.0); TOTAL PROTEIN 5.8 g/dL (6.4-8.2)
--- NOTE | 2019-01-10 11:02 | PDOC ---
PROGRESS NOTES History of Present Illness History of Present Illness Assessment/Plan Assessment/Plan IMPRESSION ACUTE RESP FAILURE possible oxycontin accidental overdose HYPOKALEMIA on replacement rx CAD: s/p PCI/stent to RCA in 2014. 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 No intervention performed. Acute on chronic systolic heart failure. Ejection fraction of 10-15%. . Followed by the heart failure clinic. AE COPD and possible PNA. CONSULT pulmonary. bronch 01/07 Severe cardiomyopathy: LVEF at 10-15% AICD in situ; HTN: Severe MR: not a surgical candidate Chronic dysphagia; s/p PEG tube for chronic vomiting AICD. Upgraded // at with epicardial lead placement by surgery. MILD ELEVATION OF TROPONIN I The systolic function is severely impaired. The Ejection Fraction is 20-25%. There is global hypokinesis of the left ventricle. There is mild to moderate concentric left ventricular hypertrophy. 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 Extubated and Sitting on side of bed and returned from [facility]. Cassandrao k HEENT: ELEONORA, ETT. ETT out - OC- clear LUNGS: clear HEART: S1, S2, paced ABDOMEN: Nondistended, soft, nontender, PEG : [place] EXTREMITIES: No edema, no cyanosis. Trace edema SKIN: Warm, dry. No generalized rash. NEURO: Coop and answering questions PIV General: Alert, Oriented X3, Cooperative, No acute distress, Other (NO TOO CONFUSED, ORIENTED NEAR BASELINE) Heart: Regular rate, Normal S1, Other (100% v-paced with underlying SR, distant heart tones) Lungs: Crackles, Other (COARSE) Abdomen: Normal bowel sounds, Soft, No tenderness, No hepatosplenomegaly, No masses Extremities: No cyanosis, No edema, Normal pulses Skin: No rashes, No significant lesion Labs LABS Laboratory Tests Test 01/10/19 08:50 White Blood Count 10.2 x10^3/uL (4.0-11.0) Red Blood Count 3.82 x10^6/uL (3.50-5.40) Hemoglobin 11.0 g/dL (12.0-15.5) Hematocrit 34.3 % (36.0-47.0) Mean Corpuscular Volume 90 fL (79-100) Mean Corpuscular Hemoglobin 29 pg (25-35) Mean Corpuscular Hemoglobin Concent 32 g/dL (31-37) Red Cell Distribution Width 14.5 % (11.5-14.5) Platelet Count 235 x10^3/uL (140-400) Neutrophils (%) (Auto) 52 % (31-73) Lymphocytes (%) (Auto) 14 % (24-48) Monocytes (%) (Auto) 9 % (0-9) Eosinophils (%) (Auto) 25 % (0-3) Basophils (%) (Auto) 1 % (0-3) Neutrophils # (Auto) 5.3 x10^3uL (1.8-7.7) Lymphocytes # (Auto) 1.4 x10^3/uL (1.0-4.8) Monocytes # (Auto) 0.9 x10^3/uL (0.0-1.1) Eosinophils # (Auto) 2.5 x10^3/uL (0.0-0.7) Basophils # (Auto) 0.0 x10^3/uL (0.0-0.2) Sodium Level 141 mmol/L (136-145) Potassium Level 3.0 mmol/L (3.5-5.1) Chloride Level 104 mmol/L (98-107) Carbon Dioxide Level 33 mmol/L (21-32) Anion Gap 4 (6-14) Blood Urea Nitrogen 7 mg/dL (7-20) Creatinine 0.6 mg/dL (0.6-1.0) Estimated GFR (Cockcroft-Gault) 118.2 BUN/Creatinine Ratio 12 (6-20) Glucose Level 129 mg/dL (70-99) Calcium Level 9.2 mg/dL (8.5-10.1) Total Bilirubin 0.4 mg/dL (0.2-1.0) Aspartate Amino Transf (AST/SGOT) 22 U/L (15-37) Alanine Aminotransferase (ALT/SGPT) 15 U/L (14-59) Alkaline Phosphatase 76 U/L (46-116) Total Protein 5.8 g/dL (6.4-8.2) Albumin 2.0 g/dL (3.4-5.0) Albumin/Globulin Ratio 0.5 (1.0-1.7) Assessment and Plan Assessmemt and Plan Problems Medical Problems: (1) COPD exacerbation Status: Acute (2) Respiratory failure with hypoxia Status: Acute PROCEDURE Procedure EGD/PEG replacement Indication: failing/leaking g-tube Meds: per anesthesia Findings: E--tertiary contractions/no stricture. G--few erosions, antrum. Old g-tube. D--Normal to second portion. --balloon on old tube (18F) deflated and tube removed. String introduced per stoma; new tube in standard pull fashion. 'Scope reintroduced, confirming good tube placement. Esophageal biopsies from mid-esophagus re: EE? Oli. well. IMP: Successful tube replacement. REC: OK to use tube immediately. Await biopsies. Continue PPI, prokinetic. CARMEN LINARES MD Aug 16, 2018 13:24 SIGNED BY: CARMEN LINARES MD DATE: 08/16/18 9665 Comment Review of Relevant I have reviewed the following items loren (where applicable) has been applied. Labs Laboratory Tests Test 01/09/19 04:20 01/09/19 08:15 01/10/19 08:50 White Blood Count 12.0 x10^3/uL (4.0-11.0) 10.2 x10^3/uL (4.0-11.0) Red Blood Count 3.65 x10^6/uL (3.50-5.40) 3.82 x10^6/uL (3.50-5.40) Hemoglobin 10.5 g/dL (12.0-15.5) 11.0 g/dL (12.0-15.5) Hematocrit 33.1 % (36.0-47.0) 34.3 % (36.0-47.0) Mean Corpuscular Volume 91 fL (79-100) 90 fL (79-100) Mean Corpuscular Hemoglobin 29 pg (25-35) 29 pg (25-35) Mean Corpuscular Hemoglobin Concent 32 g/dL (31-37) 32 g/dL (31-37) Red Cell Distribution Width 14.8 % (11.5-14.5) 14.5 % (11.5-14.5) Platelet Count 194 x10^3/uL (140-400) 235 x10^3/uL (140-400) Neutrophils (%) (Auto) 69 % (31-73) 52 % (31-73) Lymphocytes (%) (Auto) 9 % (24-48) 14 % (24-48) Monocytes (%) (Auto) 8 % (0-9) 9 % (0-9) Eosinophils (%) (Auto) 14 % (0-3) 25 % (0-3) Basophils (%) (Auto) 1 % (0-3) 1 % (0-3) Neutrophils # (Auto) 8.3 x10^3uL (1.8-7.7) 5.3 x10^3uL (1.8-7.7) Lymphocytes # (Auto) 1.1 x10^3/uL (1.0-4.8) 1.4 x10^3/uL (1.0-4.8) Monocytes # (Auto) 0.9 x10^3/uL (0.0-1.1) 0.9 x10^3/uL (0.0-1.1) Eosinophils # (Auto) 1.6 x10^3/uL (0.0-0.7) 2.5 x10^3/uL (0.0-0.7) Basophils # (Auto) 0.1 x10^3/uL (0.0-0.2) 0.0 x10^3/uL (0.0-0.2) Prothrombin Time 13.9 SEC (11.7-14.0) Prothromb Time International Ratio 1.1 (0.8-1.1) Sodium Level 141 mmol/L (136-145) 141 mmol/L (136-145) Potassium Level 3.3 mmol/L (3.5-5.1) 3.0 mmol/L (3.5-5.1) Chloride Level 104 mmol/L (98-107) 104 mmol/L (98-107) Carbon Dioxide Level 30 mmol/L (21-32) 33 mmol/L (21-32) Anion Gap 7 (6-14) 4 (6-14) Blood Urea Nitrogen 12 mg/dL (7-20) 7 mg/dL (7-20) Creatinine 0.6 mg/dL (0.6-1.0) 0.6 mg/dL (0.6-1.0) Estimated GFR (Cockcroft-Gault) 118.2 118.2 BUN/Creatinine Ratio 20 (6-20) 12 (6-20) Glucose Level 142 mg/dL (70-99) 129 mg/dL (70-99) Calcium Level 9.5 mg/dL (8.5-10.1) 9.2 mg/dL (8.5-10.1) Total Bilirubin 0.3 mg/dL (0.2-1.0) 0.4 mg/dL (0.2-1.0) Aspartate Amino Transf (AST/SGOT) 21 U/L (15-37) 22 U/L (15-37) Alanine Aminotransferase (ALT/SGPT) 14 U/L (14-59) 15 U/L (14-59) Alkaline Phosphatase 80 U/L (46-116) 76 U/L (46-116) Total Protein 6.2 g/dL (6.4-8.2) 5.8 g/dL (6.4-8.2) Albumin 2.0 g/dL (3.4-5.0) 2.0 g/dL (3.4-5.0) Albumin/Globulin Ratio 0.5 (1.0-1.7) 0.5 (1.0-1.7) O2 Saturation 94 % (92-99) Arterial Blood pH 7.42 (7.35-7.45) Arterial Blood pCO2 at Patient Temp 46 mmHg (35-46) Arterial Blood pO2 at Patient Temp 73 mmHg (65-108) Arterial Blood HCO3 29 mmol/L (21-28) Arterial Blood Base Excess 4 mmol/L (-3-3) FiO2 40% t-tube Laboratory Tests Test 01/10/19 08:50 White Blood Count 10.2 x10^3/uL (4.0-11.0) Red Blood Count 3.82 x10^6/uL (3.50-5.40) Hemoglobin 11.0 g/dL (12.0-15.5) Hematocrit 34.3 % (36.0-47.0) Mean Corpuscular Volume 90 fL (79-100) Mean Corpuscular Hemoglobin 29 pg (25-35) Mean Corpuscular Hemoglobin Concent 32 g/dL (31-37) Red Cell Distribution Width 14.5 % (11.5-14.5) Platelet Count 235 x10^3/uL (140-400) Neutrophils (%) (Auto) 52 % (31-73) Lymphocytes (%) (Auto) 14 % (24-48) Monocytes (%) (Auto) 9 % (0-9) Eosinophils (%) (Auto) 25 % (0-3) Basophils (%) (Auto) 1 % (0-3) Neutrophils # (Auto) 5.3 x10^3uL (1.8-7.7) Lymphocytes # (Auto) 1.4 x10^3/uL (1.0-4.8) Monocytes # (Auto) 0.9 x10^3/uL (0.0-1.1) Eosinophils # (Auto) 2.5 x10^3/uL (0.0-0.7) Basophils # (Auto) 0.0 x10^3/uL (0.0-0.2) Sodium Level 141 mmol/L (136-145) Potassium Level 3.0 mmol/L (3.5-5.1) Chloride Level 104 mmol/L (98-107) Carbon Dioxide Level 33 mmol/L (21-32) Anion Gap 4 (6-14) Blood Urea Nitrogen 7 mg/dL (7-20) Creatinine 0.6 mg/dL (0.6-1.0) Estimated GFR (Cockcroft-Gault) 118.2 BUN/Creatinine Ratio 12 (6-20) Glucose Level 129 mg/dL (70-99) Calcium Level 9.2 mg/dL (8.5-10.1) Total Bilirubin 0.4 mg/dL (0.2-1.0) Aspartate Amino Transf (AST/SGOT) 22 U/L (15-37) Alanine Aminotransferase (ALT/SGPT) 15 U/L (14-59) Alkaline Phosphatase 76 U/L (46-116) Total Protein 5.8 g/dL (6.4-8.2) Albumin 2.0 g/dL (3.4-5.0) Albumin/Globulin Ratio 0.5 (1.0-1.7) Microbiology 01/04/19 Blood Culture - Final, Complete NO GROWTH AFTER 5 DAYS 01/07/19 - Final, Resulted 01/07/19 - Final, Resulted 01/07/19 - Final, Resulted 01/07/19 Gram Stain Evaluation - Final, Resulted 01/07/19 Sputum Culture - Preliminary, Resulted 01/07/19 Sputum Result 1 - Final, Resulted 01/04/19 Urine Culture - Final, Complete 01/04/19 Urine Culture Result 1 (SARAH BETH) - Final, Complete Medications Current Medications Etomidate (Amidate) 10 mg 1X ONCE IV Last administered on 01/04/19 11:39; Start 01/04/19 at 12:00; Stop 01/04/19 at 12:01; Status DC Succinylcholine Chloride (Anectine) 50 mg 1X ONCE IV Last administered on 01/04at 11:39; Start 01/04/19 at 12:00; Stop 01/04/19 at 12:01; Status DC Fentanyl Citrate (Fentanyl 2ml Vial) 25 mcg PRN Q1HR PRN IV SEE COMMENTS Last administered on 01/09/19at 18:15; Start 01/04/19 at 11:45; Stop 01/09/19 at 20:08 ; Status DC Fentanyl Citrate (Fentanyl 2ml Vial) 50 mcg PRN Q1HR PRN IV SEE COMMENTS Last administered on 01/09/19at 15:37; Start 01/04/19 at 11:45; Stop 01/09/19 at 20:08 ; Status DC Chlorhexidine Gluconate (Peridex) 15 ml BID MM Last administered on 01/09/19at 09:29; Start 01/04/19 at 21:00; Stop 01/09/19 at 19:30; Status DC Famotidine (Pepcid Vial) 20 mg BID IVP Last administered on 01/05/19at 09:04; Start 01/04/19 at 21:00; Stop 01/05/19 at 10:32; Status DC Morphine Sulfate (Morphine Sulfate) 2 mg PRN Q1HR PRN IV SEE COMMENTS. Last administered on 01/08/19at 23:42; Start 01/04/19 at 11:45; Stop 01/09/19 at 20:08 ; Status DC Midazolam HCl 100 ml @ 0 mls/hr CONT PRN IV SEE PROTOCOL Last administered on at 01:01; Start 01/04/19 at 12:00; Stop 01/07/19 at 11:43; Status DC Midazolam HCl (Versed) 5 mg STK-MED ONCE .ROUTE ; Start 01/04/19 at 12:10; Stop 01/04/19 at 12:11; Status DC Albuterol/ Ipratropium (Duoneb) 6 ml 1X ONCE NEB Last administered on at 13:12; Start 01/04/19 at 12:30; Stop 01/04/19 at 12:31; Status DC Methylprednisolone Sodium Succinate (SOLU-Medrol 125MG VIAL) 125 mg 1X ONCE IV Last administered on 01/04/19at 12:44; Start 01/04/19 at 12:30; Stop 01/04/19 at 12:31; Status DC Midazolam HCl (Versed) 5 mg STK-MED ONCE .ROUTE ; Start 01/04/19 at 12:40; Stop 01/04/19 at 12:41; Status DC Sodium Chloride 1,000 ml @ 125 mls/hr Q8H IV Last administered on 01/05/19at 06 :21; Start 01/04/19 at 14:00; Stop 01/05/19 at 13:59; Status DC Albuterol/ Ipratropium (Duoneb) 3 ml RTQID NEB Last administered on 01/05/19at 15:53; Start 01/04/19 at 16:00; Stop 01/05/19 at 15:59; Status DC Midazolam HCl (Versed) 5 mg 1X ONCE IV Last administered on 01/04/19at 11:57; Start 01/04/19 at 13:30; Stop 01/04/19 at 13:31; Status DC Midazolam HCl (Versed) 5 mg 1X ONCE IV Last administered on 01/04/19at 14:00; Start 01/04/19 at 15:15; Stop 01/04/19 at 15:16; Status DC Levofloxacin/ Dextrose 100 ml @ 100 mls/hr 1X ONCE IV Last administered on at 18:34; Start 01/04/19 at 18:00; Stop 01/04/19 at 18:59; Status DC Sodium Chloride 1,000 ml @ 1,710 mls/hr Q36M IV Last administered on at 20:39; Start 01/04/19 at 18:30; Stop 01/04/19 at 19:30; Status DC Sodium Chloride 500 ml @ 1,000 mls/hr PRN Q30MIN PRN IV SEE COMMENTS; Start at 18:00 Vancomycin HCl (Vanco Per Pharmacy) 1 each PRN DAILY PRN MC SEE COMMENTS Last administered on 01/04/19at 20:07; Start 01/04/19 at 18:00; Stop 01/05/19 at 07:48 ; Status DC Levofloxacin/ Dextrose 50 ml @ 50 mls/hr Q24H IV ; Start 01/05/19 at 18:00; Stop 01/05/19 at 18:00; Status DC Vancomycin HCl 1 gm/Sodium Chloride 250 ml @ 250 mls/hr 1X ONCE IV Last administered on 01/04/19at 19:42; Start 01/04/19 at 19:00; Stop 01/04/19 at 19:59 ; Status DC Vancomycin HCl 750 mg/Sodium Chloride 250 ml @ 250 mls/hr Q24H IV ; Start 01/05 at 20:00; Stop 01/05/19 at 20:00; Status DC Vancomycin HCl (Vancomycin Trough Level) 1 each 1X ONCE MC ; Start 01/06/19 at 19:30; Stop 01/06/19 at 19:30; Status DC Furosemide (Lasix) 20 mg 1X ONCE IVP Last administered on 01/05/19at 03:19; Start 01/05/19 at 02:45; Stop 01/05/19 at 02:46; Status DC Aspirin (Andrea Aspirin) 325 mg DAILYWBKFT PO Last administered on 01/10/19at 08: 33; Start 01/05/19 at 11:00 Atorvastatin Calcium (Lipitor) 40 mg HS PO Last administered on 01/09/19at 20:40 ; Start 01/05/19 at 21:00 Carvedilol (Coreg) 6.25 mg BIDWMEALS PO Last administered on 01/10/19 08:34; Start 01/05/19 at 11:00 Clopidogrel Bisulfate (Plavix) 75 mg DAILYWBKFT PO Last administered on 08:34; Start 01/05/19 at 11:00 Lisinopril (Prinivil) 2.5 mg DAILY PO Last administered on 01/10/19 08:33; Start 01/05/19 at 11:00 Famotidine (Pepcid Vial) 20 mg DAILY IVP Last administered on 01/10/19 08:35; Start 01/06/19 at 09:00 Piperacillin Sod/ Tazobactam Sod 3.375 gm/Sodium Chloride 50 ml @ 100 mls/hr Q6HRS IV Last administered on 01/10/19 06:10; Start 01/05/19 at 11:00 Enoxaparin Sodium (Lovenox Per Pharmacy Treatment Dosing) 1 each PRN DAILY PRN MC SEE COMMENTS; Start 01/05/19 at 10:45; Stop 01/05/19 at 14:06; Status DC Enoxaparin Sodium (Lovenox 60mg Syringe) 50 mg DAILY SQ Last administered on at 10:58; Start 01/05/19 at 11:30; Stop 01/05/19 at 14:08; Status DC Fentanyl Citrate 30 ml @ 0 mls/hr CONT PRN IV SEE PROTOCOL Last administered on 01/06/19at 09:54; Start 01/05/19 at 12:15; Stop 01/07/19 at 11:43; Status DC Chlorhexidine Gluconate (Peridex) 15 ml BID MM ; Start 01/05/19 at 21:00; Status UNV Enoxaparin Sodium (Lovenox 30mg Syringe) 30 mg Q24H SQ Last administered on 01/10 08:34; Start 01/06/19 at 09:00 Albuterol/ Ipratropium (Duoneb) 3 ml RTQID NEB Last administered on 01/10/19 08 :41; Start 01/05/19 at 16:00 Sodium Chloride 1,000 ml @ 125 mls/hr Q8H IV Last administered on 01/07/19at 04 :28; Start 01/05/19 at 22:00; Stop 01/07/19 at 11:43; Status DC Sodium Chloride 500 ml @ 500 mls/hr 1X ONCE IV ; Start 01/05/19 at 22:00; Stop 01/05/19 at 22:59; Status DC Furosemide (Lasix) 20 mg DAILY PO Last administered on 01/10/19at 08:34; Start at 15:00 Potassium Chloride (KCl Oral Soln) 40 meq 1X ONCE PEG Last administered on at 08:17; Start 01/07/19 at 07:30; Stop 01/07/19 at 07:31; Status DC Dexmedetomidine HCl 200 mcg/ Sodium Chloride 50 ml @ 0 mls/hr CONT PRN IV PER PROTOCOL Last administered on 01/09/19at 08:56; Start 01/07/19 at 14:15 Sodium Chloride 500 ml @ 500 mls/hr 1X PRN PRN IV SEE COMMENTS; Start at 14:15 Atropine Sulfate (ATROPINE 0.5mg SYRINGE) 0.5 mg PRN Q5MIN PRN IV SEE COMMENTS ; Start 01/07/19 at 14:15 Furosemide (Lasix) 20 mg 1X ONCE IVP Last administered on 01/07/19at 14:30; Start 01/07/19 at 14:30; Stop 01/07/19 at 14:31; Status DC Hydralazine HCl (Apresoline Inj) 10 mg PRN Q4HRS PRN IVP ELEVATED BP, SEE COMMENTS; Start 01/07/19 at 14:30 Potassium Chloride/Water 50 ml @ 50 mls/hr 1X ONCE IV ; Start 01/08/19 at 12:00 ; Stop 01/08/19 at 12:59; Status UNV Potassium Chloride/Water 100 ml @ 100 mls/hr Q1H IV Last administered on at 14:36; Start 01/08/19 at 12:00; Stop 01/08/19 at 13:59; Status DC Potassium Chloride/Water 100 ml @ 100 mls/hr Q1H IV Last administered on at 13:08; Start 01/09/19 at 12:00; Stop 01/09/19 at 13:59; Status DC Fentanyl Citrate (Fentanyl 2ml Vial) 50 mcg PRN Q2HR PRN IV PAIN Last administered on 01/10/19at 03:44; Start 01/09/19 at 20:00 Alprazolam (Xanax) 0.25 mg TID PO Last administered on 01/10/19at 08:36; Start at 21:00 Tramadol HCl (Ultram) 50 mg PRN Q6HRS PRN PO MILD PAIN; Start 01/09/19 at 20:00 Oxycodone HCl (Roxicodone) 5 mg PRN Q4HRS PRN PO SEVERE PAIN Last administered on 01/09/19at 20:41; Start 01/09/19 at 20:15 Albuterol Sulfate (Ventolin Neb Soln) 2.5 mg PRN Q4HRS PRN NEB SHORTNESS OF BREATH Last administered on 01/10/19at 04:19; Start 01/10/19 at 04:00 Active Scripts Active Clopidogrel (Clopidogrel Bisulfate) 75 Mg Tablet 75 Mg PO DAILYWBKFT 30 Days Lasix (Furosemide) 20 Mg Tablet 1 Tab PO DAILY Proair Hfa Inhaler (Albuterol Sulfate) 8.5 Gm Hfa.aer.ad 1 Puff INH PRN Q6HRS PRN 14 Days Zofran (Ondansetron Hcl) 4 Mg Tablet 1 Tab PO Q8HRS PRN Reported Alprazolam 0.25 Mg Tablet 1 Tab PO TID Flovent 110MCG Hfa (Fluticasone Propionate) 12 Gm Aer.w.adap 2 Puff IH BID Spironolactone 25 Mg Tablet 1 Tab PO DAILY Protonix (Pantoprazole Sodium) 20 Mg Tablet.dr 40 Mg PO DAILY Oxycodone Hcl 5 Mg/5 Ml Solution 5 Mg PO PRN Q4HRS PRN Lisinopril 2.5 Mg Tablet 2.5 Mg PO DAILY Guaifenesin 600 Mg Tablet.er 600 Mg PO BID Sertraline Hcl 50 Mg Tablet 50 Mg PO DAILY Tramadol Hcl 50 Mg Tablet 1 Tab PO PRN Q6HRS PRN Duoneb 0.5-3(2.5) Mg/3 Ml (Albuterol/Ipratropium) 3 Ml Ampul.neb 3 Ml NEB QID Atorvastatin Calcium 40 Mg Tablet 40 Mg PO HS Carvedilol (Carvedilol) 6.25 Mg Tablet 6.25 Mg PO BIDWMEALS Vitamin D (Cholecalciferol (Vitamin D3)) 2,000 Unit Capsule 2,000 Unit PO BIDAFTMEAL Aspirin Ec (Aspirin) 325 Mg Tablet.dr 325 Mg PO DAILY Vitals/I & O Vital Sign - Last 24 Hours 01/09/19 01/09/19 01/09/19 01/09/19 11:30 11:47 12:00 12:00 Pulse 66 Resp 17 B/P (MAP) 149/76 (100) Pulse Ox 100 100 O2 Delivery Nasal Cannula Room Air Nasal Cannula O2 Flow Rate 4.0 15.0 5.0 01/09/19 01/09/19 01/09/19 01/09/19 13:00 14:00 15:06 15:37 Pulse 76 76 79 Resp 20 20 14 13 B/P (MAP) 119/62 (81) 140/80 (100) 164/82 (109) Pulse Ox 99 100 100 98 O2 Delivery Nasal Cannula Nasal Cannula Nasal Cannula Nasal Cannula O2 Flow Rate 5.0 5.0 01/09/19 01/09/19 01/09/19 01/09/19 15:41 16:00 16:00 16:07 Temp 97.8 97.8 Pulse 88 B/P (MAP) 169/80 (109) Pulse Ox 99 98 99 O2 Delivery Nasal Cannula Nasal Cannula Nasal Cannula Nasal Cannula O2 Flow Rate 2.0 5.0 5.0 2.0 01/09/19 01/09/19 01/09/19 01/09/19 17:00 17:24 18:00 18:15 Pulse 80 79 85 Resp 14 16 20 B/P (MAP) 171/112 (131) 164/82 183/88 (119) Pulse Ox 98 98 21 O2 Delivery Nasal Cannula Nasal Cannula Nasal Cannula O2 Flow Rate 5.0 5.0 01/09/19 01/09/19 01/09/19 01/09/19 18:45 19:00 19:55 20:00 Temp 98.7 98.7 Pulse 80 Resp 17 B/P (MAP) 172/84 (113) Pulse Ox 21 98 97 O2 Delivery Nasal Cannula Nasal Cannula Nasal Cannula Nasal Cannula O2 Flow Rate 5.0 2.0 2.0 2.0 01/09/19 01/09/19 01/09/19 01/09/19 20:00 20:41 21:00 21:41 Pulse 86 70 Resp 16 22 18 20 B/P (MAP) 149/76 (100) 187/86 (119) Pulse Ox 100 99 O2 Delivery Nasal Cannula Nasal Cannula Nasal Cannula Nasal Cannula O2 Flow Rate 2.0 2.0 2.0 2.0 01/09/19 01/09/19 01/09/19 01/10/19 22:00 23:00 23:03 00:00 Pulse 84 84 Resp 16 16 24 B/P (MAP) 168/90 (116) Pulse Ox 99 96 O2 Delivery Nasal Cannula Nasal Cannula Nasal Cannula Nasal Cannula O2 Flow Rate 2.0 2.0 2.0 2.0 01/10/19 01/10/19 01/10/19 01/10/19 00:00 00:59 02:00 03:00 Temp 98.4 98.4 Pulse 85 83 86 16 Resp 16 16 24 16 B/P (MAP) 175/91 (119) 154/90 (111) 173/88 (116) 184/81 (115) Pulse Ox 98 96 99 98 O2 Delivery Nasal Cannula Nasal Cannula Nasal Cannula Nasal Cannula O2 Flow Rate 2.0 2.0 2.0 2.0 01/10/19 01/10/19 01/10/19 01/10/19 03:44 04:00 04:14 04:18 Temp 98.7 98.7 Pulse 82 Resp 18 28 18 B/P (MAP) 169/90 (116) Pulse Ox 99 98 O2 Delivery Nasal Cannula Nasal Cannula Nasal Cannula Nasal Cannula O2 Flow Rate 2.0 2.0 2.0 2.0 01/10/19 01/10/19 01/10/19 01/10/19 04:19 05:00 06:01 07:00 Temp 98.7 98.7 Pulse 84 87 92 Resp 19 20 22 B/P (MAP) 172/90 (117) 157/82 (107) 150/77 (101) Pulse Ox 98 98 94 O2 Delivery Nasal Cannula Nasal Cannula Nasal Cannula Nasal Cannula O2 Flow Rate 2.0 2.0 2.0 2.0 01/10/19 01/10/19 01/10/19 01/10/19 07:49 08:00 08:33 08:34 Pulse 67 67 67 Resp 21 B/P (MAP) 165/92 (116) 165/92 165/92 Pulse Ox 100 O2 Delivery Nasal Cannula Nasal Cannula O2 Flow Rate 2.0 2.0 01/10/19 01/10/19 01/10/19 08:41 09:00 10:00 Pulse 78 76 Resp 17 16 B/P (MAP) 159/83 (108) 154/82 (106) Pulse Ox 100 99 100 O2 Delivery Nasal Cannula Nasal Cannula Nasal Cannula O2 Flow Rate 2.0 2.0 2.0 Intake and Output 01/09/19 01/09/19 01/10/19 14:59 22:59 06:59 Intake Total 100 ml 702 ml 595 ml Output Total 295 ml 540 ml 325 ml Balance -195 ml 162 ml 270 ml Nutrition Consultation Dietary Evaluation: Recommendations by RD: Increase Calorie Intake Comments: Recommend osmolite 1.2 starting at 20mL/hr, increasing 10mL @ 8hr until goal rate of 45mL/hr w/ 50mL water flushes Q 4hr. Expected Outcomes/Goals: TF to meet >75% estimated needs Interpretation of weight loss: >20% in 1 year Malnutrition Findings: Body Fat Depletion (Non Severe: Mild Depletion Weight Status: Underweight BAYLEE SIMS MD Jan 10, 2019 11:02
--- NOTE | 2019-01-10 13:05 | PDOC2 ---
GI CONSULT Reason For Consult: PEG tube button dysfunction HPI: HPI: 73 y/o female admitted 01/04 w/ resp distress - was intubated, now extubated. We have seen her many times. Long h/o abnormal swallowing. This time, a cap for one of the ports broke off; we are asked to see re: this. She says tube is functioning but leaky. She's not sure what meds she takes at home. On IV famotidine, Plavix, and ASA here. Says breathing is better and that she's hungry. Denies n/v, abd pain, diarrhea, constipation (last stooled this morning ), and bleeding. [facility] records received from 2016: EGD - Schatzki's ring dilated to 17mm, 2 cm hiatal hernia, normal stomach, normal duodenum. Distal esophagus biopsy c/w reflux, proximal esophagus w/ increased eosinophils possibly c/w eosinophilic esophagitis. Esophagram - esophageal dysmotility. Esophageal manometry - abnormal w/ reduced esophageal compliance and functional outflow obstruction from EoE vs achalasia. (She is unaware of any diagnosis of achalasia or EoE.) Videoswalllow was negative for aspiration here in 2015. EGD by Dr. Emery in 07/2016: benign esophageal stricture dilated to 54Fr w/ normal stomach and duodenum. Esophageal biopsies were c/w reflux and negative for Maharaj's or malignancy. CT chest in 06/2018 noted mural thickening in mid esophagus. CTA chest later that month also noted distal esophageal wall thickening. CT chest in 07/2018 mentioned the same. GES 07/2018: mildly delayed gastric emptying w/ 17% retention @ 4 hrs. EGD 08/2018: tertiary contractions (no stricture), few gastric erosions, normal duodenum, PEG replaced. Mid esophagus biopsies c/w reflux (no Maharaj's on EoE) . Was tried on Reglan then. Per past GI notes, she reported esophageal dilations helped "for awhile." Also previously reported last colonoscopy w/ polyps in ~12/2015 @ [facility]. No GB or pancreas history. Hepatic steatosis on past imaging. 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), CHF, cardiomyopathy, HTN, HLD, mitral regurg, COPD, GERD, dysphagia, hepatic steatosis, nephrolithiasis, UTI, syncope appendectomy, hysterectomy, AICD, PEG placement, bronchoscopy FH: Family History: CVA Social History: Smoke: <1 pack per day ALCOHOL: none Drugs: None ROS: GEN: Denies fevers, chills, sweats HEENT: Denies blurred vision, sore throat CV: Denies chest pain RESP: +cough GI: Per HPI : Denies hematuria, dysuria ENDO: Denies weight changes NEURO: Denies confusion, dizziness MSK: +weakness SKIN: Denies jaundice, pruritus Vitals: Vitals: Vital Signs Date Time Temp Pulse Resp B/P (MAP) Pulse Ox O2 Delivery O2 Flow Rate FiO2 01/10/19 12:39 99 Nasal Cannula 2.0 01/10/19 11:00 98.2 79 18 154/89 (110) 98.2 Labs: Labs: Laboratory Tests Test 01/10/19 08:50 White Blood Count 10.2 x10^3/uL (4.0-11.0) Red Blood Count 3.82 x10^6/uL (3.50-5.40) Hemoglobin 11.0 g/dL (12.0-15.5) Hematocrit 34.3 % (36.0-47.0) Mean Corpuscular Volume 90 fL (79-100) Mean Corpuscular Hemoglobin 29 pg (25-35) Mean Corpuscular Hemoglobin Concent 32 g/dL (31-37) Red Cell Distribution Width 14.5 % (11.5-14.5) Platelet Count 235 x10^3/uL (140-400) Neutrophils (%) (Auto) 52 % (31-73) Lymphocytes (%) (Auto) 14 % (24-48) Monocytes (%) (Auto) 9 % (0-9) Eosinophils (%) (Auto) 25 % (0-3) Basophils (%) (Auto) 1 % (0-3) Neutrophils # (Auto) 5.3 x10^3uL (1.8-7.7) Lymphocytes # (Auto) 1.4 x10^3/uL (1.0-4.8) Monocytes # (Auto) 0.9 x10^3/uL (0.0-1.1) Eosinophils # (Auto) 2.5 x10^3/uL (0.0-0.7) Basophils # (Auto) 0.0 x10^3/uL (0.0-0.2) Sodium Level 141 mmol/L (136-145) Potassium Level 3.0 mmol/L (3.5-5.1) Chloride Level 104 mmol/L (98-107) Carbon Dioxide Level 33 mmol/L (21-32) Anion Gap 4 (6-14) Blood Urea Nitrogen 7 mg/dL (7-20) Creatinine 0.6 mg/dL (0.6-1.0) Estimated GFR (Cockcroft-Gault) 118.2 BUN/Creatinine Ratio 12 (6-20) Glucose Level 129 mg/dL (70-99) Calcium Level 9.2 mg/dL (8.5-10.1) Total Bilirubin 0.4 mg/dL (0.2-1.0) Aspartate Amino Transf (AST/SGOT) 22 U/L (15-37) Alanine Aminotransferase (ALT/SGPT) 15 U/L (14-59) Alkaline Phosphatase 76 U/L (46-116) Total Protein 5.8 g/dL (6.4-8.2) Albumin 2.0 g/dL (3.4-5.0) Albumin/Globulin Ratio 0.5 (1.0-1.7) ORDERED: SPUTUM CULTURE Procedure Result GRAM STAIN WHITE BLOOD CELLS Final None seen GRAM STAIN EPITHELIAL CELLS Final Few GRAM STAIN RESULT 1 Final No organisms seen GRAM STAIN EVALUATION Final Comment This specimen is of good quality and is acceptable for routine bacterial culture. Performed at: - [facility] [address], [place], [place] [id number] Furniture Polisher: EDWIN Marie MD, Phone: [phone] SPUTUM CULTURE-LC Final Final report SPUTUM CULT RES 1 Final Comment Routine respiratory orquidea BRONCH CULTURE Final Final report BRONCH RES 1 Final Comment Routine respiratory orquidea URINE CULTURE Final Final report URINE CULTURE RES 1 Final No growth BLOOD CULTURE Final NO GROWTH AFTER 5 DAYS Allergies: Coded Allergies: Penicillins (Verified Allergy, Intermediate, hives, 01/10/19) tolerates amoxicillin Sulfa (Sulfonamide Antibiotics) (Verified Allergy, Intermediate, hives, ) morphine (Verified Allergy, Intermediate, Hives, 01/09/19) Medications: Current Medications Medications (Trade) Dose Ordered Sig/Lisandra Route PRN Reason Start Time Stop Time Status Last Admin Dose Admin Fentanyl Citrate (Fentanyl 2ml Vial) 50 mcg PRN Q2HR PRN IV PAIN 01/09/19 20:00 01/10/19 03:44 Alprazolam (Xanax) 0.25 mg TID PO 01/09/19 21:00 01/10/19 08:36 Oxycodone HCl (Roxicodone) 5 mg PRN Q4HRS PRN PO SEVERE PAIN 01/09/19 20:15 01/09/19 20:41 Albuterol Sulfate (Ventolin Neb Soln) 2.5 mg PRN Q4HRS PRN NEB SHORTNESS OF BREATH 01/10/19 04:00 01/10/19 04:19 Imaging: Imaging: CXR 01/07 IMPRESSION: 1. Mild vascular congestion. 2. New left basilar infiltrate. [employer] Bedside Swallow Eval: Pt demo's inconsistent overt and subtle s/s aspiration across all consistencies tested. Hyolaryngeal mvmt is mildly decreased to palpation. Pt's voice is mod' ly breathy, as is volitional cough, which is c/w decreased airway closure. Pt has PEG tube for supplemental nutrition, hydration, & PRN for meds d/t hx of chronic vomiting and esophageal dysphagia. Pt has no hx of oropharyngeal dysphagia. See full [employer] BSE report for add'l details. Impressions: Pharyngeal dysphagia w/ mod-high risk for aspiration w/ PO intake c /w laryngeal dysfunction s/p 5-day intubation. Also suspect incomplete airway closure at the level of the glottis, given phonation quality and spontaneous cough quality. Mod-high risk for aspiration w/ PO intake currently. Anticipate return to PO intake w/ increased number of days post extubation. Recommendations: Continue NPO. Will continue [employer] f/u to address dysphagia, including reassessment to determine safety of PO intake. PE: GEN: NAD, up to chair, thin HEENT: Atraumatic, PERRL LUNGS: productive cough, NC, diminished HEART: RRR ABD: NABS, S/ND/NT, PEG in place, cap broken/taped EXTREMITY: No edema SKIN: No rashes, no jaundice NEURO/PSYCH: A & O 3 A/P: A/P: Acute on chronic resp failure, NSTEMI - s/p bronch, extubated CAD, cardiomyopathy, mitral regurg H/o abnormal swallowing w/ PEG in place ---> cap on port is broken GERD, mildly delayed gastric emptying, h/o abnormal esophagus ("wall thickening ") on past CTs CRC screen, h/o polyps - UTD Hepatic steatosis Leukocytosis (resolved), normocytic anemia, hypokalemia -- Will check w/ outpt re: replacement adapter for PEG. ?PPI in place of H2 lolita - has also used Reglan in the past, will review w/ Dr. Hodges. FARHAN AKINS Jan 10, 2019 13:05
[2019-01-10 13:21] LABS: % BANDS 1 % (0-9); % BASOS 1 % (0-3); % EOS 24 % (0-5); % LYMPHS 10 % (24-48); % MONOS 7 % (0-10); % SEGS 57 % (35-66); PLT ESTIMATE ADEQUATE (ADEQUATE)
--- NOTE | 2019-01-10 13:32 | PDOC ---
CARDIO Progress Notes Date and Time Date of Service 01/10/19 Time of Evaluation 1210 Subjective Subjective: No Chest Pain, No shortness of breath, No Palpitations Vitals Vitals Vital Signs Date Time Temp Pulse Resp B/P (MAP) Pulse Ox O2 Delivery O2 Flow Rate FiO2 01/10/19 12:39 99 Nasal Cannula 2.0 01/10/19 11:00 98.2 79 18 154/89 (110) 98.2 Weight Weight [ ] Input and Output Intake and Output Intake and Output 01/10/19 06:59 Intake Total 1397 ml Output Total 1160 ml Balance 237 ml Intake Oral 0 ml IV Total 50 ml Tube Feeding 1097 ml Other 250 ml Output Urine Total 1160 ml # Bowel Movements 2 Laboratory Labs Laboratory Tests Test 01/10/19 08:50 White Blood Count 10.2 x10^3/uL (4.0-11.0) Red Blood Count 3.82 x10^6/uL (3.50-5.40) Hemoglobin 11.0 g/dL (12.0-15.5) Hematocrit 34.3 % (36.0-47.0) Mean Corpuscular Volume 90 fL (79-100) Mean Corpuscular Hemoglobin 29 pg (25-35) Mean Corpuscular Hemoglobin Concent 32 g/dL (31-37) Red Cell Distribution Width 14.5 % (11.5-14.5) Platelet Count 235 x10^3/uL (140-400) Neutrophils (%) (Auto) 52 % (31-73) Lymphocytes (%) (Auto) 14 % (24-48) Monocytes (%) (Auto) 9 % (0-9) Eosinophils (%) (Auto) 25 % (0-3) Basophils (%) (Auto) 1 % (0-3) Neutrophils # (Auto) 5.3 x10^3uL (1.8-7.7) Lymphocytes # (Auto) 1.4 x10^3/uL (1.0-4.8) Monocytes # (Auto) 0.9 x10^3/uL (0.0-1.1) Eosinophils # (Auto) 2.5 x10^3/uL (0.0-0.7) Basophils # (Auto) 0.0 x10^3/uL (0.0-0.2) Segmented Neutrophils % 57 % (35-66) Band Neutrophils % 1 % (0-9) Lymphocytes % 10 % (24-48) Monocytes % 7 % (0-10) Eosinophils % 24 % (0-5) Basophils % 1 % (0-3) Platelet Estimate Adequate (ADEQUATE) Sodium Level 141 mmol/L (136-145) Potassium Level 3.0 mmol/L (3.5-5.1) Chloride Level 104 mmol/L (98-107) Carbon Dioxide Level 33 mmol/L (21-32) Anion Gap 4 (6-14) Blood Urea Nitrogen 7 mg/dL (7-20) Creatinine 0.6 mg/dL (0.6-1.0) Estimated GFR (Cockcroft-Gault) 118.2 BUN/Creatinine Ratio 12 (6-20) Glucose Level 129 mg/dL (70-99) Calcium Level 9.2 mg/dL (8.5-10.1) Total Bilirubin 0.4 mg/dL (0.2-1.0) Aspartate Amino Transf (AST/SGOT) 22 U/L (15-37) Alanine Aminotransferase (ALT/SGPT) 15 U/L (14-59) Alkaline Phosphatase 76 U/L (46-116) Total Protein 5.8 g/dL (6.4-8.2) Albumin 2.0 g/dL (3.4-5.0) Albumin/Globulin Ratio 0.5 (1.0-1.7) Microbiology Micro Microbiology 01/04/19 Blood Culture - Final, Complete NO GROWTH AFTER 5 DAYS 01/07/19 - Final, Complete 01/07/19 - Final, Complete 01/07/19 - Final, Complete 01/07/19 Gram Stain Evaluation - Final, Complete 01/07/19 Sputum Culture - Final, Complete 01/07/19 Sputum Result 1 - Final, Complete 01/04/19 Urine Culture - Final, Complete 01/04/19 Urine Culture Result 1 (SAARH BETH) - Final, Complete Physical Exam HEENT: Neck Supple W Full Motion Chest: Symmetric LUNGS: Other (diminished bases) Heart: S1S2, RRR (100% V paced with underlying SR), murmurs (2/6 systolic murmur ) Abdomen: Soft N/T Extremities: No Edema Neurology: alert, follow commands Assessment Assessment 1. Acute on chronic respiratory failure secondary, multifactorial, extubated 2. Mild acute on chronic systolic CHF; appears compensated. 3. NSTEMI: trop highest 0.26. Cardiac cath 11/12/18 at without intervention 4. CAD: s/p PCI/stent to RCA in 2014. 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 No intervention performed. 5. Severe cardiomyopathy: LVEF at 20-25% 6. Leukocytosis, lactic acidosis, fevers. probable acute on chronic aspiration. 7. AECOPD 8. Possible opioid overdose; on OxyContin for chronic pain 9. AICD in situ; (CyberXtronic). s/p upgrade to BILL CUTTER-D last month with epicardial lead placement by CTS. Recent device interrogation without any acute abnormalities 10. HTN: elevated. 11. BENJA; resolved. 12. Moderate-severe MR: not a surgical candidate 13. Chronic dysphagia; s/p PEG 14. HTN: labile today Recommendations Oral Lasix therapy. Increase lisinopril Secondary prevention including DAPT with ASA and Plavix Optimization therapy Supportive care from a CV standpoint Lung optimization as per OSCAR Darnell APRN Jan 10, 2019 13:32
[2019-01-10] MEDS ORDERED: LISINOPRIL 5 MG TABLET. PO ONE (16:00)
--- NOTE | 2019-01-10 16:22 | NUR ---
SW following pt. PT/OT recommends SNU. Spoke with pt at bedside regarding SNU. Pt has walked 220ft with a device. SW discussed insurance might likely deny SNU request. Pt stated she would like to go home with home health. Pt stated she does not want to use [facility] and agreeable with [facility]. Will continue to follow.
[2019-01-10] MEDS: ATORVASTATIN CALCIUM 40 MG TABLET. PO SCH (21:00)
[2019-01-11 03:20] VITALS: BP 152/67
[2019-01-11] MEDS: ALBUTEROL SULFATE 2.5 MG/3 ML NEBU. NEB PRN (04:01)
[2019-01-11 05:25] LABS: BASO # 0.1 x10^3/uL (0.0-0.2); BASO % 1 % (0-3); EOS # 2.9 x10^3/uL (0.0-0.7); EOS % 26 % (0-3); HEMATOCRIT 34.7 % (36.0-47.0); HEMOGLOBIN 11.3 g/dL (12.0-15.5); LYMPH # 1.7 x10^3/uL (1.0-4.8); LYMPH % 16 % (24-48); MEAN CORPUSCULAR HEMOGLOBIN 29 pg (25-35); MEAN CORPUSCULAR HGB CONC 33 g/dL (31-37); MEAN CORPUSCULAR VOLUME 90 fL (79-100); MONO # 0.9 x10^3/uL (0.0-1.1); MONO % 9 % (0-9); NEUT # 5.4 x10^3uL (1.8-7.7); NEUT % 49 % (31-73); PLATELET COUNT 247 x10^3/uL (140-400); RED BLOOD COUNT 3.87 x10^6/uL (3.50-5.40); RED CELL DISTRIBUTION WIDTH 14.4 % (11.5-14.5)
[2019-01-11 05:48] LABS: CALCIUM 9.6 mg/dL (8.5-10.1); CREATININE 0.6 mg/dL (0.6-1.0); GFR 118.2
[2019-01-11] MEDS: PIPERACILLIN/TAZOBACTAM 3.375 GM in IV NORMAL SALINE 50ML 50 ML IV SCH ×3 (06:00)
[2019-01-11 06:10] LABS: POTASSIUM 2.8 mmol/L (3.5-5.1)
[2019-01-11] MEDS: IPRATRPIUM/ALBUTEROL 0.5/2.5MG 3 ML NEBU. NEB SCH ×4 (07:20→19:40)
[2019-01-11 07:25] VITALS: BP 157/76
[2019-01-11] MEDS ORDERED: POTASSIUM CHLORIDE 20 MEQ TABLET.ER. PO ONE (07:30)
[2019-01-11] MEDS: CLOPIDOGREL BISULFATE 75 MG TABLET PO SCH (08:03)
[2019-01-11] MEDS: ALPRAZolam 0.25 MG TABLET PO SCH ×3 (08:03→19:41)
[2019-01-11] MEDS: ENOXAPARIN 30 MG/0.3 ML SYRINGE. SQ SCH (08:03)
[2019-01-11] MEDS: ASPIRIN 325 MG TABLET PO SCH (08:03)
[2019-01-11] MEDS: CARVEDILOL 6.25 MG TABLET. PO SCH ×2 (08:04→17:40)
[2019-01-11] MEDS: FAMOTIDINE 20 MG/2 ML VIAL IVP SCH (08:05)
[2019-01-11] MEDS: FUROSEMIDE 20 MG TABLET PO SCH (08:05)
[2019-01-11] MEDS: POTASSIUM CHLORIDE 10MEQ 100 ML IV SCH ×4 (08:28→12:26)
[2019-01-11] MEDS ORDERED: LISINOPRIL 10 MG TABLET PO SCH (09:00)
--- NOTE | 2019-01-11 09:00 | PDOC ---
Subjective: Subjective: New adapter functioning per pt and RN. Objective: Vital Signs: Vital Signs Date Time Temp Pulse Resp B/P (MAP) Pulse Ox O2 Delivery O2 Flow Rate FiO2 01/11/19 08:04 82 157/76 01/11/19 08:00 Nasal Cannula 2.0 01/11/19 07:25 97.9 20 100 97.9 Labs: Laboratory Tests Test 01/11/19 05:00 White Blood Count 11.0 x10^3/uL Red Blood Count 3.87 x10^6/uL Hemoglobin 11.3 g/dL Hematocrit 34.7 % Mean Corpuscular Volume 90 fL Mean Corpuscular Hemoglobin 29 pg Mean Corpuscular Hemoglobin Concent 33 g/dL Red Cell Distribution Width 14.4 % Platelet Count 247 x10^3/uL Neutrophils (%) (Auto) 49 % Lymphocytes (%) (Auto) 16 % Monocytes (%) (Auto) 9 % Eosinophils (%) (Auto) 26 % Basophils (%) (Auto) 1 % Neutrophils # (Auto) 5.4 x10^3uL Lymphocytes # (Auto) 1.7 x10^3/uL Monocytes # (Auto) 0.9 x10^3/uL Eosinophils # (Auto) 2.9 x10^3/uL Basophils # (Auto) 0.1 x10^3/uL Sodium Level 141 mmol/L Potassium Level 2.8 mmol/L Chloride Level 102 mmol/L Carbon Dioxide Level 34 mmol/L Anion Gap 5 Blood Urea Nitrogen 7 mg/dL Creatinine 0.6 mg/dL Estimated GFR (Cockcroft-Gault) 118.2 Glucose Level 125 mg/dL Calcium Level 9.6 mg/dL PE: GEN: NAD - trash can beside bed w/ yellow phlegm LUNGS: NC HEART: RRR ABD: NABS, S/ND/NT, PEG in place NEURO/PSYCH: A & O 3 A/P: H/o abnormal swallowing w/ PEG s/p adapter replacement 01/10 Chronic resp failure Hypokalemia - per primary -- Continue same per GI. FARHAN AKINS Jan 11, 2019 09:00
--- NOTE | 2019-01-11 10:23 | PDOC ---
Infectious Disease Note Subjective Subjective Frustrated because very hungry and has some nausea with hunger No F/C/S/SOA. + cough with sputum improving. Vital Sign Vital Signs Vital Signs Date Time Temp Pulse Resp B/P (MAP) Pulse Ox O2 Delivery O2 Flow Rate FiO2 01/11/19 08:04 82 157/76 01/11/19 08:00 Nasal Cannula 2.0 01/11/19 07:25 97.9 20 100 97.9 Physical Exam PHYSICAL EXAM GENERAL: Sitting upright in chair. alert, NAD. HEENT: ELEONORA,- OC- clear LUNGS: clear HEART: S1, S2, paced ABDOMEN: Nondistended, soft, nontender, PEG EXTREMITIES: No edema, no cyanosis. Trace edema SKIN: Warm, dry. No generalized rash. NEURO: Coop and answering questions PIV Labs Lab Laboratory Tests Test 01/11/19 05:00 White Blood Count 11.0 x10^3/uL (4.0-11.0) Red Blood Count 3.87 x10^6/uL (3.50-5.40) Hemoglobin 11.3 g/dL (12.0-15.5) Hematocrit 34.7 % (36.0-47.0) Mean Corpuscular Volume 90 fL (79-100) Mean Corpuscular Hemoglobin 29 pg (25-35) Mean Corpuscular Hemoglobin Concent 33 g/dL (31-37) Red Cell Distribution Width 14.4 % (11.5-14.5) Platelet Count 247 x10^3/uL (140-400) Neutrophils (%) (Auto) 49 % (31-73) Lymphocytes (%) (Auto) 16 % (24-48) Monocytes (%) (Auto) 9 % (0-9) Eosinophils (%) (Auto) 26 % (0-3) Basophils (%) (Auto) 1 % (0-3) Neutrophils # (Auto) 5.4 x10^3uL (1.8-7.7) Lymphocytes # (Auto) 1.7 x10^3/uL (1.0-4.8) Monocytes # (Auto) 0.9 x10^3/uL (0.0-1.1) Eosinophils # (Auto) 2.9 x10^3/uL (0.0-0.7) Basophils # (Auto) 0.1 x10^3/uL (0.0-0.2) Sodium Level 141 mmol/L (136-145) Potassium Level 2.8 mmol/L (3.5-5.1) Chloride Level 102 mmol/L (98-107) Carbon Dioxide Level 34 mmol/L (21-32) Anion Gap 5 (6-14) Blood Urea Nitrogen 7 mg/dL (7-20) Creatinine 0.6 mg/dL (0.6-1.0) Estimated GFR (Cockcroft-Gault) 118.2 Glucose Level 125 mg/dL (70-99) Calcium Level 9.6 mg/dL (8.5-10.1) Micro Microbiology 01/04/19 Blood Culture - Final, Complete NO GROWTH AFTER 5 DAYS 01/07/19 - Final, Resulted 01/07/19 - Final, Resulted 01/07/19 - Final, Resulted 01/07/19 Gram Stain Evaluation - Final, Resulted 01/07/19 Sputum Culture - Preliminary, Resulted 01/07/19 Sputum Result 1 - Final, Resulted 01/04/19 Urine Culture - Final, Complete 01/04/19 Urine Culture Result 1 (SARAH BETH) - Final, Complete Objective Assessment Dysphagia s/p swallow 01/10 - NPO Febrile illness source resp resolved cults neg so far Leucocytosis, improving Lactic acidosis resolved PENICILLIN allergy, but has tolerated amoxicillin per chart review Acute resp failure appears multifactorial, aspiration - s/p bronchoscopy, 01/06 culture routine resp orquidea - now extubated Overdose on OxyContin. H/O Chronic interstitial lung disease. COPD h/o severe Cardiomyopathy, EF 10-15 % CAD/CHF Depression Chronic dysphagia; s/p PEG tube for chronic vomiting AICD HTN Severe MR,not a surgical candidate Plan Plan of Care [facility] since 01/05 will d/c monitor labs/temp Await further Speech eval Supportive care D/w TAMIKO JOVEL MD Jan 11, 2019 10:23
--- NOTE | 2019-01-11 11:18 | PDOC ---
PROGRESS NOTES Chief Complaint Chief Complaint Respiratory failure w/ hypoxia - Chronic Aspiration COPD exacerbation Interstitial Lung dz Dysphagia s/p PEG placement Hypokalemia, on replacement rx HTN Severe MR: not a surgical candidate Lactic acidosis, improved Cardiomyopathy, EF 10-15% CAD: s/p PCI/stent to RCA in 2014 History of Present Illness History of Present Illness Pt is a pleasant 73yo Female admitted for respiratory failure with hypoxia, COPD exacerbation and a hx of chronic aspiration. Pt seen and examined this morning, sitting upright in bed watching tv. Complains of being hungry and wanting to eat, but failed swallow study yesterday w [employer] Asked for a note stating need for a home caregiver On O2, breathing comfortable TF @ 60cc Vitals Vitals Vital Signs Date Time Temp Pulse Resp B/P (MAP) Pulse Ox O2 Delivery O2 Flow Rate FiO2 01/11/19 08:04 82 157/76 01/11/19 08:00 Nasal Cannula 2.0 01/11/19 07:25 97.9 20 100 97.9 Physical Exam Physical Exam GENERAL: Sitting upright in bed General: Alert, Oriented X3, Cooperative, No acute distress, Other Heart: Regular rate, Normal S1, Normal S2, Other (100% v-paced with underlying SR, distant heart tones) Lungs: Other (no acute respiratory distress, On O2, Symetric chest rise, no excessory muscles of respiration) Abdomen: Normal bowel sounds, Soft, No tenderness, No hepatosplenomegaly, Other (PEG tube, C/D/I) Extremities: No clubbing, No cyanosis, No edema, Normal pulses Skin: No rashes, No breakdown, No significant lesion, Other (PIV, ecchymosis of Left arm) Labs LABS Laboratory Tests Test 01/11/19 05:00 White Blood Count 11.0 x10^3/uL (4.0-11.0) Red Blood Count 3.87 x10^6/uL (3.50-5.40) Hemoglobin 11.3 g/dL (12.0-15.5) Hematocrit 34.7 % (36.0-47.0) Mean Corpuscular Volume 90 fL (79-100) Mean Corpuscular Hemoglobin 29 pg (25-35) Mean Corpuscular Hemoglobin Concent 33 g/dL (31-37) Red Cell Distribution Width 14.4 % (11.5-14.5) Platelet Count 247 x10^3/uL (140-400) Neutrophils (%) (Auto) 49 % (31-73) Lymphocytes (%) (Auto) 16 % (24-48) Monocytes (%) (Auto) 9 % (0-9) Eosinophils (%) (Auto) 26 % (0-3) Basophils (%) (Auto) 1 % (0-3) Neutrophils # (Auto) 5.4 x10^3uL (1.8-7.7) Lymphocytes # (Auto) 1.7 x10^3/uL (1.0-4.8) Monocytes # (Auto) 0.9 x10^3/uL (0.0-1.1) Eosinophils # (Auto) 2.9 x10^3/uL (0.0-0.7) Basophils # (Auto) 0.1 x10^3/uL (0.0-0.2) Sodium Level 141 mmol/L (136-145) Potassium Level 2.8 mmol/L (3.5-5.1) Chloride Level 102 mmol/L (98-107) Carbon Dioxide Level 34 mmol/L (21-32) Anion Gap 5 (6-14) Blood Urea Nitrogen 7 mg/dL (7-20) Creatinine 0.6 mg/dL (0.6-1.0) Estimated GFR (Cockcroft-Gault) 118.2 Glucose Level 125 mg/dL (70-99) Calcium Level 9.6 mg/dL (8.5-10.1) Review of Systems Review of Systems Denies any N/V Denies any F/C Assessment and Plan Assessmemt and Plan Assessment: Respiratory failure w/ hypoxia - Chronic Aspiration COPD exacerbation Interstitial Lung dz Dysphagia s/p PEG placement Hypokalemia, on replacement rx HTN Severe MR: not a surgical candidate Lactic acidosis, improved Cardiomyopathy, EF 10-15% CAD: s/p PCI/stent to RCA in 2014 Plan: Replenish K+ Recheck labs in AM [employer] to work with pt today and evaluate po intake Continue Osmolite 1.2 TF @60cc Continue breathing treatments, Duonebs PEG tube, s/p adapter replacement 01/10, appreciate GI recommendations Continue to monitor for S&S of infection D/c Zosyn per ID, appreciate ID recommendations Note provided for home caregiver PT/OT/[employer] Home meds Problems Medical Problems: (1) COPD exacerbation Status: Acute (2) Respiratory failure with hypoxia Status: Acute Comment Review of Relevant I have reviewed the following items loren (where applicable) has been applied. Labs Laboratory Tests Test 01/10/19 08:50 01/11/19 05:00 White Blood Count 10.2 x10^3/uL (4.0-11.0) 11.0 x10^3/uL (4.0-11.0) Red Blood Count 3.82 x10^6/uL (3.50-5.40) 3.87 x10^6/uL (3.50-5.40) Hemoglobin 11.0 g/dL (12.0-15.5) 11.3 g/dL (12.0-15.5) Hematocrit 34.3 % (36.0-47.0) 34.7 % (36.0-47.0) Mean Corpuscular Volume 90 fL (79-100) 90 fL (79-100) Mean Corpuscular Hemoglobin 29 pg (25-35) 29 pg (25-35) Mean Corpuscular Hemoglobin Concent 32 g/dL (31-37) 33 g/dL (31-37) Red Cell Distribution Width 14.5 % (11.5-14.5) 14.4 % (11.5-14.5) Platelet Count 235 x10^3/uL (140-400) 247 x10^3/uL (140-400) Neutrophils (%) (Auto) 52 % (31-73) 49 % (31-73) Lymphocytes (%) (Auto) 14 % (24-48) 16 % (24-48) Monocytes (%) (Auto) 9 % (0-9) 9 % (0-9) Eosinophils (%) (Auto) 25 % (0-3) 26 % (0-3) Basophils (%) (Auto) 1 % (0-3) 1 % (0-3) Neutrophils # (Auto) 5.3 x10^3uL (1.8-7.7) 5.4 x10^3uL (1.8-7.7) Lymphocytes # (Auto) 1.4 x10^3/uL (1.0-4.8) 1.7 x10^3/uL (1.0-4.8) Monocytes # (Auto) 0.9 x10^3/uL (0.0-1.1) 0.9 x10^3/uL (0.0-1.1) Eosinophils # (Auto) 2.5 x10^3/uL (0.0-0.7) 2.9 x10^3/uL (0.0-0.7) Basophils # (Auto) 0.0 x10^3/uL (0.0-0.2) 0.1 x10^3/uL (0.0-0.2) Segmented Neutrophils % 57 % (35-66) Band Neutrophils % 1 % (0-9) Lymphocytes % 10 % (24-48) Monocytes % 7 % (0-10) Eosinophils % 24 % (0-5) Basophils % 1 % (0-3) Platelet Estimate Adequate (ADEQUATE) Sodium Level 141 mmol/L (136-145) 141 mmol/L (136-145) Potassium Level 3.0 mmol/L (3.5-5.1) 2.8 mmol/L (3.5-5.1) Chloride Level 104 mmol/L (98-107) 102 mmol/L (98-107) Carbon Dioxide Level 33 mmol/L (21-32) 34 mmol/L (21-32) Anion Gap 4 (6-14) 5 (6-14) Blood Urea Nitrogen 7 mg/dL (7-20) 7 mg/dL (7-20) Creatinine 0.6 mg/dL (0.6-1.0) 0.6 mg/dL (0.6-1.0) Estimated GFR (Cockcroft-Gault) 118.2 118.2 BUN/Creatinine Ratio 12 (6-20) Glucose Level 129 mg/dL (70-99) 125 mg/dL (70-99) Calcium Level 9.2 mg/dL (8.5-10.1) 9.6 mg/dL (8.5-10.1) Total Bilirubin 0.4 mg/dL (0.2-1.0) Aspartate Amino Transf (AST/SGOT) 22 U/L (15-37) Alanine Aminotransferase (ALT/SGPT) 15 U/L (14-59) Alkaline Phosphatase 76 U/L (46-116) Total Protein 5.8 g/dL (6.4-8.2) Albumin 2.0 g/dL (3.4-5.0) Albumin/Globulin Ratio 0.5 (1.0-1.7) Laboratory Tests Test 01/11/19 05:00 White Blood Count 11.0 x10^3/uL (4.0-11.0) Red Blood Count 3.87 x10^6/uL (3.50-5.40) Hemoglobin 11.3 g/dL (12.0-15.5) Hematocrit 34.7 % (36.0-47.0) Mean Corpuscular Volume 90 fL (79-100) Mean Corpuscular Hemoglobin 29 pg (25-35) Mean Corpuscular Hemoglobin Concent 33 g/dL (31-37) Red Cell Distribution Width 14.4 % (11.5-14.5) Platelet Count 247 x10^3/uL (140-400) Neutrophils (%) (Auto) 49 % (31-73) Lymphocytes (%) (Auto) 16 % (24-48) Monocytes (%) (Auto) 9 % (0-9) Eosinophils (%) (Auto) 26 % (0-3) Basophils (%) (Auto) 1 % (0-3) Neutrophils # (Auto) 5.4 x10^3uL (1.8-7.7) Lymphocytes # (Auto) 1.7 x10^3/uL (1.0-4.8) Monocytes # (Auto) 0.9 x10^3/uL (0.0-1.1) Eosinophils # (Auto) 2.9 x10^3/uL (0.0-0.7) Basophils # (Auto) 0.1 x10^3/uL (0.0-0.2) Sodium Level 141 mmol/L (136-145) Potassium Level 2.8 mmol/L (3.5-5.1) Chloride Level 102 mmol/L (98-107) Carbon Dioxide Level 34 mmol/L (21-32) Anion Gap 5 (6-14) Blood Urea Nitrogen 7 mg/dL (7-20) Creatinine 0.6 mg/dL (0.6-1.0) Estimated GFR (Cockcroft-Gault) 118.2 Glucose Level 125 mg/dL (70-99) Calcium Level 9.6 mg/dL (8.5-10.1) Microbiology 01/04/19 Blood Culture - Final, Complete NO GROWTH AFTER 5 DAYS 01/07/19 - Final, Complete 01/07/19 - Final, Complete 01/07/19 - Final, Complete 01/07/19 Gram Stain Evaluation - Final, Complete 01/07/19 Sputum Culture - Final, Complete 01/07/19 Sputum Result 1 - Final, Complete 01/04/19 Urine Culture - Final, Complete 01/04/19 Urine Culture Result 1 (SARAH BETH) - Final, Complete Medications Current Medications Etomidate (Amidate) 10 mg 1X ONCE IV Last administered on 01/04/19 11:39; Start 01/04/19 at 12:00; Stop 01/04/19 at 12:01; Status DC Succinylcholine Chloride (Anectine) 50 mg 1X ONCE IV Last administered on 01/04at 11:39; Start 01/04/19 at 12:00; Stop 01/04/19 at 12:01; Status DC Fentanyl Citrate (Fentanyl 2ml Vial) 25 mcg PRN Q1HR PRN IV SEE COMMENTS Last administered on 01/09/19at 18:15; Start 01/04/19 at 11:45; Stop 01/09/19 at 20:08 ; Status DC Fentanyl Citrate (Fentanyl 2ml Vial) 50 mcg PRN Q1HR PRN IV SEE COMMENTS Last administered on 01/09/19at 15:37; Start 01/04/19 at 11:45; Stop 01/09/19 at 20:08 ; Status DC Chlorhexidine Gluconate (Peridex) 15 ml BID MM Last administered on 01/09/19at 09:29; Start 01/04/19 at 21:00; Stop 01/09/19 at 19:30; Status DC Famotidine (Pepcid Vial) 20 mg BID IVP Last administered on 01/05/19at 09:04; Start 01/04/19 at 21:00; Stop 01/05/19 at 10:32; Status DC Morphine Sulfate (Morphine Sulfate) 2 mg PRN Q1HR PRN IV SEE COMMENTS. Last administered on 01/08/19at 23:42; Start 01/04/19 at 11:45; Stop 01/09/19 at 20:08 ; Status DC Midazolam HCl 100 ml @ 0 mls/hr CONT PRN IV SEE PROTOCOL Last administered on at 01:01; Start 01/04/19 at 12:00; Stop 01/07/19 at 11:43; Status DC Midazolam HCl (Versed) 5 mg STK-MED ONCE .ROUTE ; Start 01/04/19 at 12:10; Stop 01/04/19 at 12:11; Status DC Albuterol/ Ipratropium (Duoneb) 6 ml 1X ONCE NEB Last administered on at 13:12; Start 01/04/19 at 12:30; Stop 01/04/19 at 12:31; Status DC Methylprednisolone Sodium Succinate (SOLU-Medrol 125MG VIAL) 125 mg 1X ONCE IV Last administered on 01/04/19at 12:44; Start 01/04/19 at 12:30; Stop 01/04/19 at 12:31; Status DC Midazolam HCl (Versed) 5 mg STK-MED ONCE .ROUTE ; Start 01/04/19 at 12:40; Stop 01/04/19 at 12:41; Status DC Sodium Chloride 1,000 ml @ 125 mls/hr Q8H IV Last administered on 01/05/19at 06 :21; Start 01/04/19 at 14:00; Stop 01/05/19 at 13:59; Status DC Albuterol/ Ipratropium (Duoneb) 3 ml RTQID NEB Last administered on 01/05/19at 15:53; Start 01/04/19 at 16:00; Stop 01/05/19 at 15:59; Status DC Midazolam HCl (Versed) 5 mg 1X ONCE IV Last administered on 01/04/19at 11:57; Start 01/04/19 at 13:30; Stop 01/04/19 at 13:31; Status DC Midazolam HCl (Versed) 5 mg 1X ONCE IV Last administered on 01/04/19at 14:00; Start 01/04/19 at 15:15; Stop 01/04/19 at 15:16; Status DC Levofloxacin/ Dextrose 100 ml @ 100 mls/hr 1X ONCE IV Last administered on at 18:34; Start 01/04/19 at 18:00; Stop 01/04/19 at 18:59; Status DC Sodium Chloride 1,000 ml @ 1,710 mls/hr Q36M IV Last administered on at 20:39; Start 01/04/19 at 18:30; Stop 01/04/19 at 19:30; Status DC Sodium Chloride 500 ml @ 1,000 mls/hr PRN Q30MIN PRN IV SEE COMMENTS; Start at 18:00; Stop 01/10/19 at 14:29; Status DC Vancomycin HCl (Vanco Per Pharmacy) 1 each PRN DAILY PRN MC SEE COMMENTS Last administered on 01/04/19at 20:07; Start 01/04/19 at 18:00; Stop 01/05/19 at 07:48 ; Status DC Levofloxacin/ Dextrose 50 ml @ 50 mls/hr Q24H IV ; Start 01/05/19 at 18:00; Stop 01/05/19 at 18:00; Status DC Vancomycin HCl 1 gm/Sodium Chloride 250 ml @ 250 mls/hr 1X ONCE IV Last administered on 01/04/19at 19:42; Start 01/04/19 at 19:00; Stop 01/04/19 at 19:59 ; Status DC Vancomycin HCl 750 mg/Sodium Chloride 250 ml @ 250 mls/hr Q24H IV ; Start 01/05 at 20:00; Stop 01/05/19 at 20:00; Status DC Vancomycin HCl (Vancomycin Trough Level) 1 each 1X ONCE MC ; Start 01/06/19 at 19:30; Stop 01/06/19 at 19:30; Status DC Furosemide (Lasix) 20 mg 1X ONCE IVP Last administered on 01/05/19at 03:19; Start 01/05/19 at 02:45; Stop 01/05/19 at 02:46; Status DC Aspirin (Andrea Aspirin) 325 mg DAILYWBKFT PO Last administered on 01/11/19 08: 03; Start 01/05/19 at 11:00 Atorvastatin Calcium (Lipitor) 40 mg HS PO Last administered on 01/09/19at 20:40 ; Start 01/05/19 at 21:00 Carvedilol (Coreg) 6.25 mg BIDWMEALS PO Last administered on 01/11/19 08:04; Start 01/05/19 at 11:00 Clopidogrel Bisulfate (Plavix) 75 mg DAILYWBKFT PO Last administered on 4/2/ 19at 08:03; Start 01/05/19 at 11:00 Lisinopril (Prinivil) 2.5 mg DAILY PO Last administered on 01/10/19at 08:33; Start 01/05/19 at 11:00; Stop 01/10/19 at 15:35; Status DC Famotidine (Pepcid Vial) 20 mg DAILY IVP Last administered on 01/11/19at 08:05; Start 01/06/19 at 09:00 Piperacillin Sod/ Tazobactam Sod 3.375 gm/Sodium Chloride 50 ml @ 100 mls/hr Q6HRS IV Last administered on 01/11/19at 06:00; Start 01/05/19 at 11:00; Stop 01/11/19 at 10:46; Status DC Enoxaparin Sodium (Lovenox Per Pharmacy Treatment Dosing) 1 each PRN DAILY PRN MC SEE COMMENTS; Start 01/05/19 at 10:45; Stop 01/05/19 at 14:06; Status DC Enoxaparin Sodium (Lovenox 60mg Syringe) 50 mg DAILY SQ Last administered on at 10:58; Start 01/05/19 at 11:30; Stop 01/05/19 at 14:08; Status DC Fentanyl Citrate 30 ml @ 0 mls/hr CONT PRN IV SEE PROTOCOL Last administered on 01/06/19at 09:54; Start 01/05/19 at 12:15; Stop 01/07/19 at 11:43; Status DC Chlorhexidine Gluconate (Peridex) 15 ml BID MM ; Start 01/05/19 at 21:00; Status UNV Enoxaparin Sodium (Lovenox 30mg Syringe) 30 mg Q24H SQ Last administered on 01/11 08:03; Start 01/06/19 at 09:00 Albuterol/ Ipratropium (Duoneb) 3 ml RTQID NEB Last administered on 01/11/19at 07 :20; Start 01/05/19 at 16:00 Sodium Chloride 1,000 ml @ 125 mls/hr Q8H IV Last administered on 01/07/19at 04 :28; Start 01/05/19 at 22:00; Stop 01/07/19 at 11:43; Status DC Sodium Chloride 500 ml @ 500 mls/hr 1X ONCE IV ; Start 01/05/19 at 22:00; Stop 01/05/19 at 22:59; Status DC Furosemide (Lasix) 20 mg DAILY PO Last administered on 01/11/19at 08:05; Start at 15:00 Potassium Chloride (KCl Oral Soln) 40 meq 1X ONCE PEG Last administered on at 08:17; Start 01/07/19 at 07:30; Stop 01/07/19 at 07:31; Status DC Dexmedetomidine HCl 200 mcg/ Sodium Chloride 50 ml @ 0 mls/hr CONT PRN IV PER PROTOCOL Last administered on 01/09/19at 08:56; Start 01/07/19 at 14:15; Stop 01/10/19 at 14:29; Status DC Sodium Chloride 500 ml @ 500 mls/hr 1X PRN PRN IV SEE COMMENTS; Start at 14:15; Stop 01/10/19 at 14:29; Status DC Atropine Sulfate (ATROPINE 0.5mg SYRINGE) 0.5 mg PRN Q5MIN PRN IV SEE COMMENTS ; Start 01/07/19 at 14:15; Stop 01/10/19 at 14:29; Status DC Furosemide (Lasix) 20 mg 1X ONCE IVP Last administered on 01/07/19at 14:30; Start 01/07/19 at 14:30; Stop 01/07/19 at 14:31; Status DC Hydralazine HCl (Apresoline Inj) 10 mg PRN Q4HRS PRN IVP ELEVATED BP, SEE COMMENTS; Start 01/07/19 at 14:30 Potassium Chloride/Water 50 ml @ 50 mls/hr 1X ONCE IV ; Start 01/08/19 at 12:00 ; Stop 01/08/19 at 12:59; Status UNV Potassium Chloride/Water 100 ml @ 100 mls/hr Q1H IV Last administered on at 14:36; Start 01/08/19 at 12:00; Stop 01/08/19 at 13:59; Status DC Potassium Chloride/Water 100 ml @ 100 mls/hr Q1H IV Last administered on at 13:08; Start 01/09/19 at 12:00; Stop 01/09/19 at 13:59; Status DC Fentanyl Citrate (Fentanyl 2ml Vial) 50 mcg PRN Q2HR PRN IV MODERATE - SEVERE PAIN Last administered on 01/10/19at 03:44; Start 01/09/19 at 20:00 Alprazolam (Xanax) 0.25 mg TID PO Last administered on 01/11/19 08:03; Start at 21:00 Tramadol HCl (Ultram) 50 mg PRN Q6HRS PRN PO MILD PAIN; Start 01/09/19 at 20:00 Oxycodone HCl (Roxicodone) 5 mg PRN Q4HRS PRN PO SEVERE PAIN Last administered on 01/09/19at 20:41; Start 01/09/19 at 20:15 Albuterol Sulfate (Ventolin Neb Soln) 2.5 mg PRN Q4HRS PRN NEB SHORTNESS OF BREATH Last administered on 01/11/19 04:01; Start 01/10/19 at 04:00 Lisinopril (Prinivil) 10 mg DAILY PO Last administered on 01/11/19at 08:04; Start 01/11/19 at 09:00 Lisinopril (Prinivil) 5 mg 1X ONCE PO Last administered on 01/10/19at 16:37; Start 01/10/19 at 16:00; Stop 01/10/19 at 16:01; Status DC Potassium Chloride/Water 100 ml @ 100 mls/hr Q1H IV Last administered on 10:49; Start 01/11/19 at 08:00; Stop 01/11/19 at 11:59 Potassium Chloride (Klor-Con) 40 meq 1X ONCE PO Last administered on 01/11/19 08:04; Start 01/11/19 at 07:30; Stop 01/11/19 at 07:31; Status DC Active Scripts Active Clopidogrel (Clopidogrel Bisulfate) 75 Mg Tablet 75 Mg PO DAILYWBKFT 30 Days Lasix (Furosemide) 20 Mg Tablet 1 Tab PO DAILY Proair Hfa Inhaler (Albuterol Sulfate) 8.5 Gm Hfa.aer.ad 1 Puff INH PRN Q6HRS PRN 14 Days Zofran (Ondansetron Hcl) 4 Mg Tablet 1 Tab PO Q8HRS PRN Reported Alprazolam 0.25 Mg Tablet 1 Tab PO TID Flovent 110MCG Hfa (Fluticasone Propionate) 12 Gm Aer.w.adap 2 Puff IH BID Spironolactone 25 Mg Tablet 1 Tab PO DAILY Protonix (Pantoprazole Sodium) 20 Mg Tablet.dr 40 Mg PO DAILY Oxycodone Hcl 5 Mg/5 Ml Solution 5 Mg PO PRN Q4HRS PRN Lisinopril 2.5 Mg Tablet 2.5 Mg PO DAILY Guaifenesin 600 Mg Tablet.er 600 Mg PO BID Sertraline Hcl 50 Mg Tablet 50 Mg PO DAILY Tramadol Hcl 50 Mg Tablet 1 Tab PO PRN Q6HRS PRN Duoneb 0.5-3(2.5) Mg/3 Ml (Albuterol/Ipratropium) 3 Ml Ampul.neb 3 Ml NEB QID Atorvastatin Calcium 40 Mg Tablet 40 Mg PO HS Carvedilol (Carvedilol) 6.25 Mg Tablet 6.25 Mg PO BIDWMEALS Vitamin D (Cholecalciferol (Vitamin D3)) 2,000 Unit Capsule 2,000 Unit PO BIDAFTMEAL Aspirin Ec (Aspirin) 325 Mg Tablet. 325 Mg PO DAILY Vitals/I & O Vital Sign - Last 24 Hours 01/10/19 01/10/19 01/10/19 01/10/19 11:00 12:39 15:30 16:37 Temp 98.2 99.0 98.2 99.0 Pulse 79 76 76 Resp 18 18 B/P (MAP) 154/89 (110) 156/78 (104) 156/78 Pulse Ox 99 99 100 O2 Delivery Nasal Cannula Nasal Cannula Nasal Cannula O2 Flow Rate 2.0 2.0 2.0 01/10/19 01/10/19 01/10/19 01/10/19 16:37 16:47 19:20 20:00 Temp 98.1 98.1 Pulse 76 75 Resp 18 B/P (MAP) 156/78 143/74 (97) Pulse Ox 98 100 O2 Delivery Nasal Cannula Nasal Cannula Nasal Cannula O2 Flow Rate 2.0 2.0 2.0 01/10/19 01/10/19 01/11/19 01/11/19 20:27 23:20 03:20 04:01 Temp 98.6 97.6 98.6 97.6 Pulse 77 78 Resp 20 20 B/P (MAP) 147/69 (95) 152/67 (95) Pulse Ox 98 98 100 O2 Delivery Nasal Cannula Nasal Cannula Nasal Cannula Nasal Cannula O2 Flow Rate 0.5 2.0 2.0 2.0 01/11/19 01/11/19 01/11/19 01/11/19 07:25 08:00 08:04 08:04 Temp 97.9 97.9 Pulse 82 82 82 Resp 20 B/P (MAP) 157/76 (103) 157/76 157/76 Pulse Ox 100 O2 Delivery Nasal Cannula Nasal Cannula O2 Flow Rate 2.0 2.0 Intake and Output 01/10/19 01/10/19 01/11/19 15:00 23:00 07:00 Intake Total 481 ml 200 ml 450 ml Output Total 0 ml 0 ml Balance 481 ml 200 ml 450 ml Nutrition Consultation Dietary Evaluation: Recommendations by RD: Increase Calorie Intake Comments: REC increase continuous TF to following: Osmolite 1.2@goal rate 60 ml/hr w/100 ml water flushes q4 hrs When able/appropriate, recommend switching to bolus feedings per following: Osmolite 1.5 bolus 5x/day (1 carton/237 ml per bolus) w/150 ml water flush w/each feeding Expected Outcomes/Goals: TF to meet >75% estimated needs - not met, goal ongoing Interpretation of weight loss: >20% in 1 year Malnutrition Findings: Body Fat Depletion (Non Severe: Mild Depletion Weight Status: Underweight CASTLE,NIAL K III DO Jan 11, 2019 11:18
[2019-01-11 11:20] VITALS: BP 137/80
--- NOTE | 2019-01-11 13:40 | PDOC ---
PULMONARY PROGRESS NOTES Subjective C/O COUGH, WHITE SPUTUM EXTUBATED 01/09 Vitals Vital Signs Date Time Temp Pulse Resp B/P (MAP) Pulse Ox O2 Delivery O2 Flow Rate FiO2 01/11/19 11:20 98.0 77 22 137/80 (99) 100 Nasal Cannula 2.0 98.0 ROS: No Nausea, No Chest Pain, No Abdominal Pain General: Alert, No acute distress Lungs: Other (decrease bs) Cardiovascular: S1, S2 Abdomen: Soft Neuro Exam: Alert Extremities: No Edema Skin: Warm Labs Laboratory Tests Test 01/10/19 08:50 01/11/19 05:00 White Blood Count 10.2 x10^3/uL (4.0-11.0) 11.0 x10^3/uL (4.0-11.0) Red Blood Count 3.82 x10^6/uL (3.50-5.40) 3.87 x10^6/uL (3.50-5.40) Hemoglobin 11.0 g/dL (12.0-15.5) 11.3 g/dL (12.0-15.5) Hematocrit 34.3 % (36.0-47.0) 34.7 % (36.0-47.0) Mean Corpuscular Volume 90 fL (79-100) 90 fL (79-100) Mean Corpuscular Hemoglobin 29 pg (25-35) 29 pg (25-35) Mean Corpuscular Hemoglobin Concent 32 g/dL (31-37) 33 g/dL (31-37) Red Cell Distribution Width 14.5 % (11.5-14.5) 14.4 % (11.5-14.5) Platelet Count 235 x10^3/uL (140-400) 247 x10^3/uL (140-400) Neutrophils (%) (Auto) 52 % (31-73) 49 % (31-73) Lymphocytes (%) (Auto) 14 % (24-48) 16 % (24-48) Monocytes (%) (Auto) 9 % (0-9) 9 % (0-9) Eosinophils (%) (Auto) 25 % (0-3) 26 % (0-3) Basophils (%) (Auto) 1 % (0-3) 1 % (0-3) Neutrophils # (Auto) 5.3 x10^3uL (1.8-7.7) 5.4 x10^3uL (1.8-7.7) Lymphocytes # (Auto) 1.4 x10^3/uL (1.0-4.8) 1.7 x10^3/uL (1.0-4.8) Monocytes # (Auto) 0.9 x10^3/uL (0.0-1.1) 0.9 x10^3/uL (0.0-1.1) Eosinophils # (Auto) 2.5 x10^3/uL (0.0-0.7) 2.9 x10^3/uL (0.0-0.7) Basophils # (Auto) 0.0 x10^3/uL (0.0-0.2) 0.1 x10^3/uL (0.0-0.2) Segmented Neutrophils % 57 % (35-66) Band Neutrophils % 1 % (0-9) Lymphocytes % 10 % (24-48) Monocytes % 7 % (0-10) Eosinophils % 24 % (0-5) Basophils % 1 % (0-3) Platelet Estimate Adequate (ADEQUATE) Sodium Level 141 mmol/L (136-145) 141 mmol/L (136-145) Potassium Level 3.0 mmol/L (3.5-5.1) 2.8 mmol/L (3.5-5.1) Chloride Level 104 mmol/L (98-107) 102 mmol/L (98-107) Carbon Dioxide Level 33 mmol/L (21-32) 34 mmol/L (21-32) Anion Gap 4 (6-14) 5 (6-14) Blood Urea Nitrogen 7 mg/dL (7-20) 7 mg/dL (7-20) Creatinine 0.6 mg/dL (0.6-1.0) 0.6 mg/dL (0.6-1.0) Estimated GFR (Cockcroft-Gault) 118.2 118.2 BUN/Creatinine Ratio 12 (6-20) Glucose Level 129 mg/dL (70-99) 125 mg/dL (70-99) Calcium Level 9.2 mg/dL (8.5-10.1) 9.6 mg/dL (8.5-10.1) Total Bilirubin 0.4 mg/dL (0.2-1.0) Aspartate Amino Transf (AST/SGOT) 22 U/L (15-37) Alanine Aminotransferase (ALT/SGPT) 15 U/L (14-59) Alkaline Phosphatase 76 U/L (46-116) Total Protein 5.8 g/dL (6.4-8.2) Albumin 2.0 g/dL (3.4-5.0) Albumin/Globulin Ratio 0.5 (1.0-1.7) Laboratory Tests Test 01/11/19 05:00 White Blood Count 11.0 x10^3/uL (4.0-11.0) Red Blood Count 3.87 x10^6/uL (3.50-5.40) Hemoglobin 11.3 g/dL (12.0-15.5) Hematocrit 34.7 % (36.0-47.0) Mean Corpuscular Volume 90 fL (79-100) Mean Corpuscular Hemoglobin 29 pg (25-35) Mean Corpuscular Hemoglobin Concent 33 g/dL (31-37) Red Cell Distribution Width 14.4 % (11.5-14.5) Platelet Count 247 x10^3/uL (140-400) Neutrophils (%) (Auto) 49 % (31-73) Lymphocytes (%) (Auto) 16 % (24-48) Monocytes (%) (Auto) 9 % (0-9) Eosinophils (%) (Auto) 26 % (0-3) Basophils (%) (Auto) 1 % (0-3) Neutrophils # (Auto) 5.4 x10^3uL (1.8-7.7) Lymphocytes # (Auto) 1.7 x10^3/uL (1.0-4.8) Monocytes # (Auto) 0.9 x10^3/uL (0.0-1.1) Eosinophils # (Auto) 2.9 x10^3/uL (0.0-0.7) Basophils # (Auto) 0.1 x10^3/uL (0.0-0.2) Sodium Level 141 mmol/L (136-145) Potassium Level 2.8 mmol/L (3.5-5.1) Chloride Level 102 mmol/L (98-107) Carbon Dioxide Level 34 mmol/L (21-32) Anion Gap 5 (6-14) Blood Urea Nitrogen 7 mg/dL (7-20) Creatinine 0.6 mg/dL (0.6-1.0) Estimated GFR (Cockcroft-Gault) 118.2 Glucose Level 125 mg/dL (70-99) Calcium Level 9.6 mg/dL (8.5-10.1) Medications Active Scripts Medications Dose Route/Sig Max Daily Dose Days Date Category Clopidogrel (Clopidogrel Bisulfate) 75 Mg Tablet 75 Mg PO DAILYWBKFT 30 12/01/18 Rx Alprazolam 0.25 Mg Tablet 1 Tab PO TID 11/25/18 Reported Flovent 110MCG Hfa (Fluticasone Propionate) 12 Gm Aer.w.adap 2 Puff IH BID 11/25/18 Reported Spironolactone 25 Mg Tablet 1 Tab PO DAILY 11/25/18 Reported Protonix (Pantoprazole Sodium) 20 Mg Tablet.dr 40 Mg PO DAILY 11/25/18 Reported Oxycodone Hcl 5 Mg/5 Ml Solution 5 Mg PO PRN Q4HRS PRN 11/25/18 Reported Lisinopril 2.5 Mg Tablet 2.5 Mg PO DAILY 11/25/18 Reported Guaifenesin 600 Mg Tablet.er 600 Mg PO BID 11/25/18 Reported Sertraline Hcl 50 Mg Tablet 50 Mg PO DAILY 11/25/18 Reported Lasix (Furosemide) 20 Mg Tablet 1 Tab PO DAILY 10/04/18 Rx Proair Hfa Inhaler (Albuterol Sulfate) 8.5 Gm Hfa.aer.ad 1 Puff INH PRN Q6HRS PRN 14 10/04/18 Rx Tramadol Hcl 50 Mg Tablet 1 Tab PO PRN Q6HRS PRN 08/13/18 Reported Duoneb 0.5-3(2.5) Mg/3 Ml (Albuterol/Ipratropium) 3 Ml Ampul.neb 3 Ml NEB QID 04/17/18 Reported Zofran (Ondansetron Hcl) 4 Mg Tablet 1 Tab PO Q8HRS PRN 05/19/16 Rx Atorvastatin Calcium 40 Mg Tablet 40 Mg PO HS 09/24/15 Reported Carvedilol (Carvedilol) 6.25 Mg Tablet 6.25 Mg PO BIDWMEALS 09/24/15 Reported Vitamin D (Cholecalciferol (Vitamin D3)) 2,000 Unit Capsule 2,000 Unit PO BIDAFTMEAL 01/07/15 Reported Aspirin Ec (Aspirin) 325 Mg Tablet. 325 Mg PO DAILY 01/07/15 Reported Impression . IMPRESSION: 1. Acute hypoxemic hypercapnic respiratory failure, multifactorial. ACUTE/ CHRONIC ASPIRATION S/P BRONCH 2. Overdose on OxyContin. 3. Chronic interstitial lung disease. SEC TO CHRONIC ASPIRATION 4. Chronic eating disorder, status post PEG tube placement. 5. Depression. 6. Chronic obstructive pulmonary disease. 7. Other comorbidities. 8. Severe cardiomyopathy, ejection fraction 20%./ moderate MR, 9. Coronary artery disease, status post previous stenting. 10. Acute on chronic systolic, diastolic heart failure. BAL ORDERED: BRONCH CULTURE Procedure Result BRONCH CULTURE Final Final report BRONCH RES 1 Final Comment Routine respiratory orquidea Performed at: DA - [facility] [id number] [facility] [address], [place], [place] [id number] 01/06 BRONCH FINDINGS: 1. Properly positioned endotracheal tube. 2. No endobronchial lesion. 3. Minimal mucous plugging in the bases. Plan . SPEECH F/U REPEAT CXR NEBS PT DOES NOT WANT TO BE ON HOSPICE SO FAR ALL CULTURES NEG ANTIBX PER ID G FEEDING DVT GI PROPH JEFF MCDONNELL MD Jan 11, 2019 13:40
[2019-01-11 15:17] VITALS: BP 164/79
--- NOTE | 2019-01-11 15:37 | RAD ---
EXAM: Chest, single view. HISTORY: Congestive heart failure. COMPARISON: 01/07/2019 FINDINGS: A frontal view of the chest is obtained. There is stable mild pulmonary congestion. There has been slight interval increase in a suspected small left pleural effusion with basilar atelectasis. There is a stable prominent cardiac silhouette. There is a cardiac pacemaker defibrillator unchanged in position. There is no pneumothorax. IMPRESSION: 1. Stable pulmonary congestion. 2. Suspected increased small left pleural effusion with basilar atelectasis. Electronically signed by: Fany Cole MD (01/11/2019 3:34 PM) [place] [id number]
[2019-01-11 19:20] VITALS: BP 122/86
[2019-01-11] MEDS: fentaNYL PF VIAL 100 MCG/2 ML VIAL IV PRN ×2 (19:41→23:29)
[2019-01-11] MEDS: ATORVASTATIN CALCIUM 40 MG TABLET. PO SCH (19:41)
[2019-01-11 23:20] VITALS: BP 136/60
[2019-01-12 03:20] VITALS: BP 130/61
[2019-01-12] MEDS: ALBUTEROL SULFATE 2.5 MG/3 ML NEBU. NEB PRN (04:06)
[2019-01-12 05:26] LABS: BASO # 0.1 x10^3/uL (0.0-0.2); BASO % 1 % (0-3); EOS # 3.3 x10^3/uL (0.0-0.7); EOS % 31 % (0-3); HEMATOCRIT 32.1 % (36.0-47.0); HEMOGLOBIN 10.6 g/dL (12.0-15.5); LYMPH # 1.8 x10^3/uL (1.0-4.8); LYMPH % 17 % (24-48); MEAN CORPUSCULAR HEMOGLOBIN 30 pg (25-35); MEAN CORPUSCULAR HGB CONC 33 g/dL (31-37); MEAN CORPUSCULAR VOLUME 90 fL (79-100); MONO # 0.9 x10^3/uL (0.0-1.1); MONO % 8 % (0-9); NEUT # 4.5 x10^3uL (1.8-7.7); NEUT % 42 % (31-73); PLATELET COUNT 238 x10^3/uL (140-400); RED BLOOD COUNT 3.55 x10^6/uL (3.50-5.40); RED CELL DISTRIBUTION WIDTH 14.3 % (11.5-14.5); WHITE BLOOD COUNT 10.6 x10^3/uL (4.0-11.0)
[2019-01-12 05:56] LABS: CALCIUM 9.5 mg/dL (8.5-10.1); CREATININE 0.6 mg/dL (0.6-1.0); GFR 118.2; POTASSIUM 3.7 mmol/L (3.5-5.1)
[2019-01-12 07:04] VITALS: BP 145/67
[2019-01-12] MEDS: IPRATRPIUM/ALBUTEROL 0.5/2.5MG 3 ML NEBU. NEB SCH ×4 (07:48→19:29)
[2019-01-12] MEDS: LISINOPRIL 20 MG TABLET PO SCH (09:24)
[2019-01-12] MEDS: ASPIRIN 325 MG TABLET PO SCH (09:24)
[2019-01-12] MEDS: ALPRAZolam 0.25 MG TABLET PO SCH ×3 (09:25→21:43)
[2019-01-12] MEDS: CLOPIDOGREL BISULFATE 75 MG TABLET PO SCH (09:25)
[2019-01-12] MEDS: FAMOTIDINE 20 MG/2 ML VIAL IVP SCH (09:25)
[2019-01-12] MEDS: CARVEDILOL 6.25 MG TABLET. PO SCH ×2 (09:25→17:00)
[2019-01-12] MEDS: FUROSEMIDE 20 MG TABLET PO SCH (09:25)
[2019-01-12] MEDS: ENOXAPARIN 30 MG/0.3 ML SYRINGE. SQ SCH (09:26)
--- NOTE | 2019-01-12 09:33 | NUR ---
SW following pt. Spoke with pt again about SNU after discussing concern of pt going home with home health. SW discussed options and benefits. Pt chose [facility] stating she has been there before. Pt also reported she will inform family regarding plan. YEE phoned and faxed referral to [facility]. Pt admission and acceptance pending. Will continue to follow.
[2019-01-12] MEDS: oxyCODONE IR 5 MG TABLET PO PRN ×2 (09:36→14:29)
--- NOTE | 2019-01-12 09:55 | PDOC ---
Infectious Disease Note Subjective Subjective Frustrated because very hungry and waiting swallow No F/C/S A little SOA but feels maybe a little anxiety + cough with sputum improving. Vital Sign Vital Signs Vital Signs Date Time Temp Pulse Resp B/P (MAP) Pulse Ox O2 Delivery O2 Flow Rate FiO2 01/12/19 09:36 Nasal Cannula 2.0 01/12/19 09:25 85 145/67 01/12/19 07:49 100 01/12/19 07:04 98.4 17 98.4 Physical Exam PHYSICAL EXAM GENERAL: Sitting upright in bed. alert, NAD. smiling HEENT: ELEONORA,- OC- clear LUNGS: clear HEART: S1, S2, paced ABDOMEN: Nondistended, soft, nontender, PEG EXTREMITIES: No edema, no cyanosis. Trace edema SKIN: Warm, dry. No generalized rash. NEURO: Coop and answering questions PIV Labs Lab Laboratory Tests Test 01/12/19 04:25 White Blood Count 10.6 x10^3/uL (4.0-11.0) Red Blood Count 3.55 x10^6/uL (3.50-5.40) Hemoglobin 10.6 g/dL (12.0-15.5) Hematocrit 32.1 % (36.0-47.0) Mean Corpuscular Volume 90 fL (79-100) Mean Corpuscular Hemoglobin 30 pg (25-35) Mean Corpuscular Hemoglobin Concent 33 g/dL (31-37) Red Cell Distribution Width 14.3 % (11.5-14.5) Platelet Count 238 x10^3/uL (140-400) Neutrophils (%) (Auto) 42 % (31-73) Lymphocytes (%) (Auto) 17 % (24-48) Monocytes (%) (Auto) 8 % (0-9) Eosinophils (%) (Auto) 31 % (0-3) Basophils (%) (Auto) 1 % (0-3) Neutrophils # (Auto) 4.5 x10^3uL (1.8-7.7) Lymphocytes # (Auto) 1.8 x10^3/uL (1.0-4.8) Monocytes # (Auto) 0.9 x10^3/uL (0.0-1.1) Eosinophils # (Auto) 3.3 x10^3/uL (0.0-0.7) Basophils # (Auto) 0.1 x10^3/uL (0.0-0.2) Sodium Level 146 mmol/L (136-145) Potassium Level 3.7 mmol/L (3.5-5.1) Chloride Level 105 mmol/L (98-107) Carbon Dioxide Level 33 mmol/L (21-32) Anion Gap 8 (6-14) Blood Urea Nitrogen 9 mg/dL (7-20) Creatinine 0.6 mg/dL (0.6-1.0) Estimated GFR (Cockcroft-Gault) 118.2 Glucose Level 96 mg/dL (70-99) Calcium Level 9.5 mg/dL (8.5-10.1) Micro Microbiology 01/04/19 Blood Culture - Final, Complete NO GROWTH AFTER 5 DAYS 01/07/19 - Final, Resulted 01/07/19 - Final, Resulted 01/07/19 - Final, Resulted 01/07/19 Gram Stain Evaluation - Final, Resulted 01/07/19 Sputum Culture - Preliminary, Resulted 01/07/19 Sputum Result 1 - Final, Resulted 01/04/19 Urine Culture - Final, Complete 01/04/19 Urine Culture Result 1 (SARAH BETH) - Final, Complete Objective Assessment Dysphagia s/p swallow 01/10 - NPO awaiting f/u Febrile illness source resp resolved cults neg so far Leucocytosis, improving Lactic acidosis resolved PENICILLIN allergy, but has tolerated amoxicillin per chart review Acute resp failure appears multifactorial, aspiration - s/p bronchoscopy, 01/06 culture routine resp orquidea - now extubated Overdose on OxyContin. H/O Chronic interstitial lung disease. COPD h/o severe Cardiomyopathy, EF 10-15 % CAD/CHF Depression Chronic dysphagia; s/p PEG tube for chronic vomiting AICD HTN Severe MR,not a surgical candidate Plan Plan of Care Zosyn since 01/05 d/c 01/11 so far ok monitor labs/temp Await further Speech eval Supportive care D/w RN D/w family TAMIKO GUZMÁN MD Jan 12, 2019 09:55
--- NOTE | 2019-01-12 11:00 | NUR ---
Pt has been accepted at [facility] pending insurance approval. Caren has submitted for auth. Insurance auth for SNU pending. Will continue to follow. Discussed with Physician.
--- NOTE | 2019-01-12 11:03 | PDOC ---
Objective: Vital Signs: Vital Signs Date Time Temp Pulse Resp B/P (MAP) Pulse Ox O2 Delivery O2 Flow Rate FiO2 01/12/19 09:36 Nasal Cannula 2.0 01/12/19 09:25 85 145/67 01/12/19 07:49 100 01/12/19 07:04 98.4 17 98.4 Labs: Laboratory Tests Test 01/12/19 04:25 White Blood Count 10.6 x10^3/uL Red Blood Count 3.55 x10^6/uL Hemoglobin 10.6 g/dL Hematocrit 32.1 % Mean Corpuscular Volume 90 fL Mean Corpuscular Hemoglobin 30 pg Mean Corpuscular Hemoglobin Concent 33 g/dL Red Cell Distribution Width 14.3 % Platelet Count 238 x10^3/uL Neutrophils (%) (Auto) 42 % Lymphocytes (%) (Auto) 17 % Monocytes (%) (Auto) 8 % Eosinophils (%) (Auto) 31 % Basophils (%) (Auto) 1 % Neutrophils # (Auto) 4.5 x10^3uL Lymphocytes # (Auto) 1.8 x10^3/uL Monocytes # (Auto) 0.9 x10^3/uL Eosinophils # (Auto) 3.3 x10^3/uL Basophils # (Auto) 0.1 x10^3/uL Sodium Level 146 mmol/L Potassium Level 3.7 mmol/L Chloride Level 105 mmol/L Carbon Dioxide Level 33 mmol/L Anion Gap 8 Blood Urea Nitrogen 9 mg/dL Creatinine 0.6 mg/dL Estimated GFR (Cockcroft-Gault) 118.2 Glucose Level 96 mg/dL Calcium Level 9.5 mg/dL Imaging: CXR 01/11 IMPRESSION: 1. Stable pulmonary congestion. 2. Suspected increased small left pleural effusion with basilar atelectasis. PE: working w/ [employer] A/P: H/o abnormal swallowing, PEG in place Chronic resp failure -- Will follow after [employer] emilee. FARHAN AKINS Jan 12, 2019 11:03
--- NOTE | 2019-01-12 11:33 | PDOC ---
PULMONARY PROGRESS NOTES Subjective C/O COUGH, WHITE SPUTUM EXTUBATED 01/09 Vitals Vital Signs Date Time Temp Pulse Resp B/P (MAP) Pulse Ox O2 Delivery O2 Flow Rate FiO2 01/12/19 11:22 99 Nasal Cannula 2.0 01/12/19 09:25 85 145/67 01/12/19 07:04 98.4 17 98.4 ROS: No Nausea, No Chest Pain, No Abdominal Pain General: Alert, No acute distress Lungs: Other (decrease bs) Cardiovascular: S1, S2 Abdomen: Soft Neuro Exam: Alert Extremities: No Edema Skin: Warm Labs Laboratory Tests Test 01/11/19 05:00 01/12/19 04:25 White Blood Count 11.0 x10^3/uL (4.0-11.0) 10.6 x10^3/uL (4.0-11.0) Red Blood Count 3.87 x10^6/uL (3.50-5.40) 3.55 x10^6/uL (3.50-5.40) Hemoglobin 11.3 g/dL (12.0-15.5) 10.6 g/dL (12.0-15.5) Hematocrit 34.7 % (36.0-47.0) 32.1 % (36.0-47.0) Mean Corpuscular Volume 90 fL (79-100) 90 fL (79-100) Mean Corpuscular Hemoglobin 29 pg (25-35) 30 pg (25-35) Mean Corpuscular Hemoglobin Concent 33 g/dL (31-37) 33 g/dL (31-37) Red Cell Distribution Width 14.4 % (11.5-14.5) 14.3 % (11.5-14.5) Platelet Count 247 x10^3/uL (140-400) 238 x10^3/uL (140-400) Neutrophils (%) (Auto) 49 % (31-73) 42 % (31-73) Lymphocytes (%) (Auto) 16 % (24-48) 17 % (24-48) Monocytes (%) (Auto) 9 % (0-9) 8 % (0-9) Eosinophils (%) (Auto) 26 % (0-3) 31 % (0-3) Basophils (%) (Auto) 1 % (0-3) 1 % (0-3) Neutrophils # (Auto) 5.4 x10^3uL (1.8-7.7) 4.5 x10^3uL (1.8-7.7) Lymphocytes # (Auto) 1.7 x10^3/uL (1.0-4.8) 1.8 x10^3/uL (1.0-4.8) Monocytes # (Auto) 0.9 x10^3/uL (0.0-1.1) 0.9 x10^3/uL (0.0-1.1) Eosinophils # (Auto) 2.9 x10^3/uL (0.0-0.7) 3.3 x10^3/uL (0.0-0.7) Basophils # (Auto) 0.1 x10^3/uL (0.0-0.2) 0.1 x10^3/uL (0.0-0.2) Sodium Level 141 mmol/L (136-145) 146 mmol/L (136-145) Potassium Level 2.8 mmol/L (3.5-5.1) 3.7 mmol/L (3.5-5.1) Chloride Level 102 mmol/L (98-107) 105 mmol/L (98-107) Carbon Dioxide Level 34 mmol/L (21-32) 33 mmol/L (21-32) Anion Gap 5 (6-14) 8 (6-14) Blood Urea Nitrogen 7 mg/dL (7-20) 9 mg/dL (7-20) Creatinine 0.6 mg/dL (0.6-1.0) 0.6 mg/dL (0.6-1.0) Estimated GFR (Cockcroft-Gault) 118.2 118.2 Glucose Level 125 mg/dL (70-99) 96 mg/dL (70-99) Calcium Level 9.6 mg/dL (8.5-10.1) 9.5 mg/dL (8.5-10.1) Laboratory Tests Test 01/12/19 04:25 White Blood Count 10.6 x10^3/uL (4.0-11.0) Red Blood Count 3.55 x10^6/uL (3.50-5.40) Hemoglobin 10.6 g/dL (12.0-15.5) Hematocrit 32.1 % (36.0-47.0) Mean Corpuscular Volume 90 fL (79-100) Mean Corpuscular Hemoglobin 30 pg (25-35) Mean Corpuscular Hemoglobin Concent 33 g/dL (31-37) Red Cell Distribution Width 14.3 % (11.5-14.5) Platelet Count 238 x10^3/uL (140-400) Neutrophils (%) (Auto) 42 % (31-73) Lymphocytes (%) (Auto) 17 % (24-48) Monocytes (%) (Auto) 8 % (0-9) Eosinophils (%) (Auto) 31 % (0-3) Basophils (%) (Auto) 1 % (0-3) Neutrophils # (Auto) 4.5 x10^3uL (1.8-7.7) Lymphocytes # (Auto) 1.8 x10^3/uL (1.0-4.8) Monocytes # (Auto) 0.9 x10^3/uL (0.0-1.1) Eosinophils # (Auto) 3.3 x10^3/uL (0.0-0.7) Basophils # (Auto) 0.1 x10^3/uL (0.0-0.2) Sodium Level 146 mmol/L (136-145) Potassium Level 3.7 mmol/L (3.5-5.1) Chloride Level 105 mmol/L (98-107) Carbon Dioxide Level 33 mmol/L (21-32) Anion Gap 8 (6-14) Blood Urea Nitrogen 9 mg/dL (7-20) Creatinine 0.6 mg/dL (0.6-1.0) Estimated GFR (Cockcroft-Gault) 118.2 Glucose Level 96 mg/dL (70-99) Calcium Level 9.5 mg/dL (8.5-10.1) Medications Active Scripts Medications Dose Route/Sig Max Daily Dose Days Date Category Clopidogrel (Clopidogrel Bisulfate) 75 Mg Tablet 75 Mg PO DAILYWBKFT 30 12/01/18 Rx Alprazolam 0.25 Mg Tablet 1 Tab PO TID 11/25/18 Reported Flovent 110MCG Hfa (Fluticasone Propionate) 12 Gm Aer.w.adap 2 Puff IH BID 11/25/18 Reported Spironolactone 25 Mg Tablet 1 Tab PO DAILY 11/25/18 Reported Protonix (Pantoprazole Sodium) 20 Mg Tablet.dr 40 Mg PO DAILY 11/25/18 Reported Oxycodone Hcl 5 Mg/5 Ml Solution 5 Mg PO PRN Q4HRS PRN 11/25/18 Reported Lisinopril 2.5 Mg Tablet 2.5 Mg PO DAILY 11/25/18 Reported Guaifenesin 600 Mg Tablet.er 600 Mg PO BID 11/25/18 Reported Sertraline Hcl 50 Mg Tablet 50 Mg PO DAILY 11/25/18 Reported Lasix (Furosemide) 20 Mg Tablet 1 Tab PO DAILY 10/04/18 Rx Proair Hfa Inhaler (Albuterol Sulfate) 8.5 Gm Hfa.aer.ad 1 Puff INH PRN Q6HRS PRN 14 10/04/18 Rx Tramadol Hcl 50 Mg Tablet 1 Tab PO PRN Q6HRS PRN 08/13/18 Reported Duoneb 0.5-3(2.5) Mg/3 Ml (Albuterol/Ipratropium) 3 Ml Ampul.neb 3 Ml NEB QID 04/17/18 Reported Zofran (Ondansetron Hcl) 4 Mg Tablet 1 Tab PO Q8HRS PRN 05/19/16 Rx Atorvastatin Calcium 40 Mg Tablet 40 Mg PO HS 09/24/15 Reported Carvedilol (Carvedilol) 6.25 Mg Tablet 6.25 Mg PO BIDWMEALS 09/24/15 Reported Vitamin D (Cholecalciferol (Vitamin D3)) 2,000 Unit Capsule 2,000 Unit PO BIDAFTMEAL 01/07/15 Reported Aspirin Ec (Aspirin) 325 Mg Tablet. 325 Mg PO DAILY 01/07/15 Reported Comments CXR 4/2 MILD CHF Impression . IMPRESSION: 1. Acute hypoxemic hypercapnic respiratory failure, multifactorial. ACUTE/ CHRONIC ASPIRATION S/P BRONCH 2. Overdose on OxyContin. 3. Chronic interstitial lung disease. SEC TO CHRONIC ASPIRATION 4. Chronic eating disorder, status post PEG tube placement. 5. Depression. 6. Chronic obstructive pulmonary disease. 7. Other comorbidities. 8. Severe cardiomyopathy, ejection fraction 20%./ moderate MR, 9. Coronary artery disease, status post previous stenting. 10. Acute on chronic systolic, diastolic heart failure. 11. Persistent cough, likely congestive BAL ORDERED: BRONCH CULTURE Procedure Result BRONCH CULTURE Final Final report BRONCH RES 1 Final Comment Routine respiratory orquidea Performed at: DA - [facility] [address], [place], [place] [id number] 01/06 BRONCH FINDINGS: 1. Properly positioned endotracheal tube. 2. No endobronchial lesion. 3. Minimal mucous plugging in the bases. Plan . SPEECH F/U REPEAT CXR REVIEWED EXTRA LASIX ( EF 25%) NEBS PT DOES NOT WANT TO BE ON HOSPICE SO FAR ALL CULTURES NEG ANTIBX PER ID DVT GI PROPH JEFF MCDONNELL MD Jan 12, 2019 11:33
--- NOTE | 2019-01-12 11:34 | PDOC ---
PROGRESS NOTES Chief Complaint Chief Complaint Respiratory failure w/ hypoxia - Chronic Aspiration COPD exacerbation Interstitial Lung dz Dysphagia s/p PEG placement Hypokalemia, on replacement rx HTN Severe MR: not a surgical candidate Lactic acidosis, improved Cardiomyopathy, EF 10-15% CAD: s/p PCI/stent to RCA in 2014 History of Present Illness History of Present Illness Pt is a pleasant 73yo Female admitted for respiratory failure with hypoxia, COPD exacerbation and a hx of chronic aspiration. Pt sitting upright in bed, nursing at bedside Discussed care with RN Continues to complain of hunger and wanting to eat, failed swallow study w COMMERCIAL ENERGY AUDITOR On O2, breathing comfortable, sating 99% TF @ 60cc Vitals Vitals Vital Signs Date Time Temp Pulse Resp B/P (MAP) Pulse Ox O2 Delivery O2 Flow Rate FiO2 01/12/19 09:36 Nasal Cannula 2.0 01/12/19 09:25 85 145/67 01/12/19 07:49 100 01/12/19 07:04 98.4 17 98.4 Physical Exam Physical Exam General: Alert, Oriented X3, Cooperative, No acute distress Heart: Regular rate, Normal S1, Normal S2, Other (100% v-paced with underlying SR, distant heart tones) Lungs: Clear, Other (decrease bs, no crackles or wheezing, On 2L nc) Abdomen: Normal bowel sounds, Soft, No tenderness, No hepatosplenomegaly, Other (PEG tube C/D/I, s/p new peg adapter on 01/10) Extremities: No clubbing, No cyanosis, Normal pulses Skin: No rashes, No breakdown, No significant lesion, Other (PIV, ecchymosis of Left arm) Labs LABS Laboratory Tests Test 01/12/19 04:25 White Blood Count 10.6 x10^3/uL (4.0-11.0) Red Blood Count 3.55 x10^6/uL (3.50-5.40) Hemoglobin 10.6 g/dL (12.0-15.5) Hematocrit 32.1 % (36.0-47.0) Mean Corpuscular Volume 90 fL (79-100) Mean Corpuscular Hemoglobin 30 pg (25-35) Mean Corpuscular Hemoglobin Concent 33 g/dL (31-37) Red Cell Distribution Width 14.3 % (11.5-14.5) Platelet Count 238 x10^3/uL (140-400) Neutrophils (%) (Auto) 42 % (31-73) Lymphocytes (%) (Auto) 17 % (24-48) Monocytes (%) (Auto) 8 % (0-9) Eosinophils (%) (Auto) 31 % (0-3) Basophils (%) (Auto) 1 % (0-3) Neutrophils # (Auto) 4.5 x10^3uL (1.8-7.7) Lymphocytes # (Auto) 1.8 x10^3/uL (1.0-4.8) Monocytes # (Auto) 0.9 x10^3/uL (0.0-1.1) Eosinophils # (Auto) 3.3 x10^3/uL (0.0-0.7) Basophils # (Auto) 0.1 x10^3/uL (0.0-0.2) Sodium Level 146 mmol/L (136-145) Potassium Level 3.7 mmol/L (3.5-5.1) Chloride Level 105 mmol/L (98-107) Carbon Dioxide Level 33 mmol/L (21-32) Anion Gap 8 (6-14) Blood Urea Nitrogen 9 mg/dL (7-20) Creatinine 0.6 mg/dL (0.6-1.0) Estimated GFR (Cockcroft-Gault) 118.2 Glucose Level 96 mg/dL (70-99) Calcium Level 9.5 mg/dL (8.5-10.1) Review of Systems Review of Systems Denies N/v Denies F/c Denies CP, admits to some SOA Assessment and Plan Assessmemt and Plan Assessment: Respiratory failure w/ hypoxia - Chronic Aspiration COPD exacerbation Interstitial Lung dz Dysphagia s/p PEG placement Hypokalemia HTN Severe MR: not a surgical candidate Lactic acidosis, improved Cardiomyopathy, EF 10-15% CAD: s/p PCI/stent to RCA in 2014 Plan: COMMERCIAL ENERGY AUDITOR to work with pt, re-evaluate po intake RD recommendation to increase caloric intake and switch to bolus feeds when able , Osmolite 1.2 TF @60cc/hr I.S. ordered, breathing treatments, Duonebs, Lasix 20 PO, appreciate Pulm recommendations Discharge disposition pending, SNU eval HypoKalemia resolved, 3.7 today Recheck labs in AM PEG tube, s/p adapter replacement 01/10, appreciate GI recommendations Monitor for S&S of infection Abx per ID, appreciate recommendations PT/OT/COMMERCIAL ENERGY AUDITOR Home meds Problems Medical Problems: (1) COPD exacerbation Status: Acute (2) Respiratory failure with hypoxia Status: Acute Comment Review of Relevant I have reviewed the following items loren (where applicable) has been applied. Labs Laboratory Tests Test 01/11/19 05:00 01/12/19 04:25 White Blood Count 11.0 x10^3/uL (4.0-11.0) 10.6 x10^3/uL (4.0-11.0) Red Blood Count 3.87 x10^6/uL (3.50-5.40) 3.55 x10^6/uL (3.50-5.40) Hemoglobin 11.3 g/dL (12.0-15.5) 10.6 g/dL (12.0-15.5) Hematocrit 34.7 % (36.0-47.0) 32.1 % (36.0-47.0) Mean Corpuscular Volume 90 fL (79-100) 90 fL (79-100) Mean Corpuscular Hemoglobin 29 pg (25-35) 30 pg (25-35) Mean Corpuscular Hemoglobin Concent 33 g/dL (31-37) 33 g/dL (31-37) Red Cell Distribution Width 14.4 % (11.5-14.5) 14.3 % (11.5-14.5) Platelet Count 247 x10^3/uL (140-400) 238 x10^3/uL (140-400) Neutrophils (%) (Auto) 49 % (31-73) 42 % (31-73) Lymphocytes (%) (Auto) 16 % (24-48) 17 % (24-48) Monocytes (%) (Auto) 9 % (0-9) 8 % (0-9) Eosinophils (%) (Auto) 26 % (0-3) 31 % (0-3) Basophils (%) (Auto) 1 % (0-3) 1 % (0-3) Neutrophils # (Auto) 5.4 x10^3uL (1.8-7.7) 4.5 x10^3uL (1.8-7.7) Lymphocytes # (Auto) 1.7 x10^3/uL (1.0-4.8) 1.8 x10^3/uL (1.0-4.8) Monocytes # (Auto) 0.9 x10^3/uL (0.0-1.1) 0.9 x10^3/uL (0.0-1.1) Eosinophils # (Auto) 2.9 x10^3/uL (0.0-0.7) 3.3 x10^3/uL (0.0-0.7) Basophils # (Auto) 0.1 x10^3/uL (0.0-0.2) 0.1 x10^3/uL (0.0-0.2) Sodium Level 141 mmol/L (136-145) 146 mmol/L (136-145) Potassium Level 2.8 mmol/L (3.5-5.1) 3.7 mmol/L (3.5-5.1) Chloride Level 102 mmol/L (98-107) 105 mmol/L (98-107) Carbon Dioxide Level 34 mmol/L (21-32) 33 mmol/L (21-32) Anion Gap 5 (6-14) 8 (6-14) Blood Urea Nitrogen 7 mg/dL (7-20) 9 mg/dL (7-20) Creatinine 0.6 mg/dL (0.6-1.0) 0.6 mg/dL (0.6-1.0) Estimated GFR (Cockcroft-Gault) 118.2 118.2 Glucose Level 125 mg/dL (70-99) 96 mg/dL (70-99) Calcium Level 9.6 mg/dL (8.5-10.1) 9.5 mg/dL (8.5-10.1) Laboratory Tests Test 01/12/19 04:25 White Blood Count 10.6 x10^3/uL (4.0-11.0) Red Blood Count 3.55 x10^6/uL (3.50-5.40) Hemoglobin 10.6 g/dL (12.0-15.5) Hematocrit 32.1 % (36.0-47.0) Mean Corpuscular Volume 90 fL (79-100) Mean Corpuscular Hemoglobin 30 pg (25-35) Mean Corpuscular Hemoglobin Concent 33 g/dL (31-37) Red Cell Distribution Width 14.3 % (11.5-14.5) Platelet Count 238 x10^3/uL (140-400) Neutrophils (%) (Auto) 42 % (31-73) Lymphocytes (%) (Auto) 17 % (24-48) Monocytes (%) (Auto) 8 % (0-9) Eosinophils (%) (Auto) 31 % (0-3) Basophils (%) (Auto) 1 % (0-3) Neutrophils # (Auto) 4.5 x10^3uL (1.8-7.7) Lymphocytes # (Auto) 1.8 x10^3/uL (1.0-4.8) Monocytes # (Auto) 0.9 x10^3/uL (0.0-1.1) Eosinophils # (Auto) 3.3 x10^3/uL (0.0-0.7) Basophils # (Auto) 0.1 x10^3/uL (0.0-0.2) Sodium Level 146 mmol/L (136-145) Potassium Level 3.7 mmol/L (3.5-5.1) Chloride Level 105 mmol/L (98-107) Carbon Dioxide Level 33 mmol/L (21-32) Anion Gap 8 (6-14) Blood Urea Nitrogen 9 mg/dL (7-20) Creatinine 0.6 mg/dL (0.6-1.0) Estimated GFR (Cockcroft-Gault) 118.2 Glucose Level 96 mg/dL (70-99) Calcium Level 9.5 mg/dL (8.5-10.1) Microbiology 01/04/19 Blood Culture - Final, Complete NO GROWTH AFTER 5 DAYS 01/07/19 - Final, Complete 01/07/19 - Final, Complete 01/07/19 - Final, Complete 01/07/19 Gram Stain Evaluation - Final, Complete 01/07/19 Sputum Culture - Final, Complete 01/07/19 Sputum Result 1 - Final, Complete 01/04/19 Urine Culture - Final, Complete 01/04/19 Urine Culture Result 1 (SARAH BETH) - Final, Complete Medications Current Medications Etomidate (Amidate) 10 mg 1X ONCE IV Last administered on 01/04/19at 11:39; Start 01/04/19 at 12:00; Stop 01/04/19 at 12:01; Status DC Succinylcholine Chloride (Anectine) 50 mg 1X ONCE IV Last administered on 01/04at 11:39; Start 01/04/19 at 12:00; Stop 01/04/19 at 12:01; Status DC Fentanyl Citrate (Fentanyl 2ml Vial) 25 mcg PRN Q1HR PRN IV SEE COMMENTS Last administered on 01/09/19at 18:15; Start 01/04/19 at 11:45; Stop 01/09/19 at 20:08 ; Status DC Fentanyl Citrate (Fentanyl 2ml Vial) 50 mcg PRN Q1HR PRN IV SEE COMMENTS Last administered on 01/09/19at 15:37; Start 01/04/19 at 11:45; Stop 01/09/19 at 20:08 ; Status DC Chlorhexidine Gluconate (Peridex) 15 ml BID MM Last administered on 01/09/19at 09:29; Start 01/04/19 at 21:00; Stop 01/09/19 at 19:30; Status DC Famotidine (Pepcid Vial) 20 mg BID IVP Last administered on 01/05/19at 09:04; Start 01/04/19 at 21:00; Stop 01/05/19 at 10:32; Status DC Morphine Sulfate (Morphine Sulfate) 2 mg PRN Q1HR PRN IV SEE COMMENTS. Last administered on 01/08/19at 23:42; Start 01/04/19 at 11:45; Stop 01/09/19 at 20:08 ; Status DC Midazolam HCl 100 ml @ 0 mls/hr CONT PRN IV SEE PROTOCOL Last administered on at 01:01; Start 01/04/19 at 12:00; Stop 01/07/19 at 11:43; Status DC Midazolam HCl (Versed) 5 mg STK-MED ONCE .ROUTE ; Start 01/04/19 at 12:10; Stop 01/04/19 at 12:11; Status DC Albuterol/ Ipratropium (Duoneb) 6 ml 1X ONCE NEB Last administered on at 13:12; Start 01/04/19 at 12:30; Stop 01/04/19 at 12:31; Status DC Methylprednisolone Sodium Succinate (SOLU-Medrol 125MG VIAL) 125 mg 1X ONCE IV Last administered on 01/04/19at 12:44; Start 01/04/19 at 12:30; Stop 01/04/19 at 12:31; Status DC Midazolam HCl (Versed) 5 mg STK-MED ONCE .ROUTE ; Start 01/04/19 at 12:40; Stop 01/04/19 at 12:41; Status DC Sodium Chloride 1,000 ml @ 125 mls/hr Q8H IV Last administered on 01/05/19at 06 :21; Start 01/04/19 at 14:00; Stop 01/05/19 at 13:59; Status DC Albuterol/ Ipratropium (Duoneb) 3 ml RTQID NEB Last administered on 01/05/19at 15:53; Start 01/04/19 at 16:00; Stop 01/05/19 at 15:59; Status DC Midazolam HCl (Versed) 5 mg 1X ONCE IV Last administered on 01/04/19at 11:57; Start 01/04/19 at 13:30; Stop 01/04/19 at 13:31; Status DC Midazolam HCl (Versed) 5 mg 1X ONCE IV Last administered on 01/04/19at 14:00; Start 01/04/19 at 15:15; Stop 01/04/19 at 15:16; Status DC Levofloxacin/ Dextrose 100 ml @ 100 mls/hr 1X ONCE IV Last administered on at 18:34; Start 01/04/19 at 18:00; Stop 01/04/19 at 18:59; Status DC Sodium Chloride 1,000 ml @ 1,710 mls/hr Q36M IV Last administered on at 20:39; Start 01/04/19 at 18:30; Stop 01/04/19 at 19:30; Status DC Sodium Chloride 500 ml @ 1,000 mls/hr PRN Q30MIN PRN IV SEE COMMENTS; Start at 18:00; Stop 01/10/19 at 14:29; Status DC Vancomycin HCl (Vanco Per Pharmacy) 1 each PRN DAILY PRN MC SEE COMMENTS Last administered on 01/04/19at 20:07; Start 01/04/19 at 18:00; Stop 01/05/19 at 07:48 ; Status DC Levofloxacin/ Dextrose 50 ml @ 50 mls/hr Q24H IV ; Start 01/05/19 at 18:00; Stop 01/05/19 at 18:00; Status DC Vancomycin HCl 1 gm/Sodium Chloride 250 ml @ 250 mls/hr 1X ONCE IV Last administered on 01/04/19at 19:42; Start 01/04/19 at 19:00; Stop 01/04/19 at 19:59 ; Status DC Vancomycin HCl 750 mg/Sodium Chloride 250 ml @ 250 mls/hr Q24H IV ; Start 01/05 at 20:00; Stop 01/05/19 at 20:00; Status DC Vancomycin HCl (Vancomycin Trough Level) 1 each 1X ONCE MC ; Start 01/06/19 at 19:30; Stop 01/06/19 at 19:30; Status DC Furosemide (Lasix) 20 mg 1X ONCE IVP Last administered on 01/05/19at 03:19; Start 01/05/19 at 02:45; Stop 01/05/19 at 02:46; Status DC Aspirin (Andrea Aspirin) 325 mg DAILYWBKFT PO Last administered on 01/12/19 09: 24; Start 01/05/19 at 11:00 Atorvastatin Calcium (Lipitor) 40 mg HS PO Last administered on 01/11/19 19:41 ; Start 01/05/19 at 21:00 Carvedilol (Coreg) 6.25 mg BIDWMEALS PO Last administered on 01/12/19 09:25; Start 01/05/19 at 11:00 Clopidogrel Bisulfate (Plavix) 75 mg DAILYWBKFT PO Last administered on 09:25; Start 01/05/19 at 11:00 Lisinopril (Prinivil) 2.5 mg DAILY PO Last administered on 01/10/19 08:33; Start 01/05/19 at 11:00; Stop 01/10/19 at 15:35; Status DC Famotidine (Pepcid Vial) 20 mg DAILY IVP Last administered on 01/12/19 09:25; Start 01/06/19 at 09:00 Piperacillin Sod/ Tazobactam Sod 3.375 gm/Sodium Chloride 50 ml @ 100 mls/hr Q6HRS IV Last administered on 01/11/19 06:00; Start 01/05/19 at 11:00; Stop 01/11/19 at 10:46; Status DC Enoxaparin Sodium (Lovenox Per Pharmacy Treatment Dosing) 1 each PRN DAILY PRN MC SEE COMMENTS; Start 01/05/19 at 10:45; Stop 01/05/19 at 14:06; Status DC Enoxaparin Sodium (Lovenox 60mg Syringe) 50 mg DAILY SQ Last administered on at 10:58; Start 01/05/19 at 11:30; Stop 01/05/19 at 14:08; Status DC Fentanyl Citrate 30 ml @ 0 mls/hr CONT PRN IV SEE PROTOCOL Last administered on 01/06/19at 09:54; Start 01/05/19 at 12:15; Stop 01/07/19 at 11:43; Status DC Chlorhexidine Gluconate (Peridex) 15 ml BID MM ; Start 01/05/19 at 21:00; Status UNV Enoxaparin Sodium (Lovenox 30mg Syringe) 30 mg Q24H SQ Last administered on 01/12 09:26; Start 01/06/19 at 09:00 Albuterol/ Ipratropium (Duoneb) 3 ml RTQID NEB Last administered on 01/12/19 07 :48; Start 01/05/19 at 16:00 Sodium Chloride 1,000 ml @ 125 mls/hr Q8H IV Last administered on 01/07/19 04 :28; Start 01/05/19 at 22:00; Stop 01/07/19 at 11:43; Status DC Sodium Chloride 500 ml @ 500 mls/hr 1X ONCE IV ; Start 01/05/19 at 22:00; Stop 01/05/19 at 22:59; Status DC Furosemide (Lasix) 20 mg DAILY PO Last administered on 01/12/19 09:25; Start at 15:00 Potassium Chloride (KCl Oral Soln) 40 meq 1X ONCE PEG Last administered on 08:17; Start 01/07/19 at 07:30; Stop 01/07/19 at 07:31; Status DC Dexmedetomidine HCl 200 mcg/ Sodium Chloride 50 ml @ 0 mls/hr CONT PRN IV PER PROTOCOL Last administered on 01/09/19at 08:56; Start 01/07/19 at 14:15; Stop 01/10/19 at 14:29; Status DC Sodium Chloride 500 ml @ 500 mls/hr 1X PRN PRN IV SEE COMMENTS; Start at 14:15; Stop 01/10/19 at 14:29; Status DC Atropine Sulfate (ATROPINE 0.5mg SYRINGE) 0.5 mg PRN Q5MIN PRN IV SEE COMMENTS ; Start 01/07/19 at 14:15; Stop 01/10/19 at 14:29; Status DC Furosemide (Lasix) 20 mg 1X ONCE IVP Last administered on 01/07/19at 14:30; Start 01/07/19 at 14:30; Stop 01/07/19 at 14:31; Status DC Hydralazine HCl (Apresoline Inj) 10 mg PRN Q4HRS PRN IVP ELEVATED BP, SEE COMMENTS; Start 01/07/19 at 14:30 Potassium Chloride/Water 50 ml @ 50 mls/hr 1X ONCE IV ; Start 01/08/19 at 12:00 ; Stop 01/08/19 at 12:59; Status UNV Potassium Chloride/Water 100 ml @ 100 mls/hr Q1H IV Last administered on at 14:36; Start 01/08/19 at 12:00; Stop 01/08/19 at 13:59; Status DC Potassium Chloride/Water 100 ml @ 100 mls/hr Q1H IV Last administered on at 13:08; Start 01/09/19 at 12:00; Stop 01/09/19 at 13:59; Status DC Fentanyl Citrate (Fentanyl 2ml Vial) 50 mcg PRN Q2HR PRN IV MODERATE - SEVERE PAIN Last administered on 01/11/19at 23:29; Start 01/09/19 at 20:00 Alprazolam (Xanax) 0.25 mg TID PO Last administered on 01/12/19at 09:25; Start at 21:00 Tramadol HCl (Ultram) 50 mg PRN Q6HRS PRN PO MILD PAIN; Start 01/09/19 at 20:00 Oxycodone HCl (Roxicodone) 5 mg PRN Q4HRS PRN PO SEVERE PAIN Last administered on 01/12/19at 09:36; Start 01/09/19 at 20:15 Albuterol Sulfate (Ventolin Neb Soln) 2.5 mg PRN Q4HRS PRN NEB SHORTNESS OF BREATH Last administered on 01/12/19 04:06; Start 01/10/19 at 04:00 Lisinopril (Prinivil) 10 mg DAILY PO Last administered on 01/11/19at 08:04; Start 01/11/19 at 09:00; Stop 01/12/19 at 08:10; Status DC Lisinopril (Prinivil) 5 mg 1X ONCE PO Last administered on 01/10/19at 16:37; Start 01/10/19 at 16:00; Stop 01/10/19 at 16:01; Status DC Potassium Chloride/Water 100 ml @ 100 mls/hr Q1H IV Last administered on at 12:26; Start 01/11/19 at 08:00; Stop 01/11/19 at 11:59; Status DC Potassium Chloride (Klor-Con) 40 meq 1X ONCE PO Last administered on 01/11/19at 08:04; Start 01/11/19 at 07:30; Stop 01/11/19 at 07:31; Status DC Lisinopril (Prinivil) 20 mg DAILY PO Last administered on 01/12/19at 09:24; Start 01/12/19 at 09:00 Active Scripts Active Clopidogrel (Clopidogrel Bisulfate) 75 Mg Tablet 75 Mg PO DAILYWBKFT 30 Days Lasix (Furosemide) 20 Mg Tablet 1 Tab PO DAILY Proair Hfa Inhaler (Albuterol Sulfate) 8.5 Gm Hfa.aer.ad 1 Puff INH PRN Q6HRS PRN 14 Days Zofran (Ondansetron Hcl) 4 Mg Tablet 1 Tab PO Q8HRS PRN Reported Alprazolam 0.25 Mg Tablet 1 Tab PO TID Flovent 110MCG Hfa (Fluticasone Propionate) 12 Gm Aer.w.adap 2 Puff IH BID Spironolactone 25 Mg Tablet 1 Tab PO DAILY Protonix (Pantoprazole Sodium) 20 Mg Tablet.dr 40 Mg PO DAILY Oxycodone Hcl 5 Mg/5 Ml Solution 5 Mg PO PRN Q4HRS PRN Lisinopril 2.5 Mg Tablet 2.5 Mg PO DAILY Guaifenesin 600 Mg Tablet.er 600 Mg PO BID Sertraline Hcl 50 Mg Tablet 50 Mg PO DAILY Tramadol Hcl 50 Mg Tablet 1 Tab PO PRN Q6HRS PRN Duoneb 0.5-3(2.5) Mg/3 Ml (Albuterol/Ipratropium) 3 Ml Ampul.neb 3 Ml NEB QID Atorvastatin Calcium 40 Mg Tablet 40 Mg PO HS Carvedilol (Carvedilol) 6.25 Mg Tablet 6.25 Mg PO BIDWMEALS Vitamin D (Cholecalciferol (Vitamin D3)) 2,000 Unit Capsule 2,000 Unit PO BIDAFTMEAL Aspirin Ec (Aspirin) 325 Mg Tablet.dr 325 Mg PO DAILY Vitals/I & O Vital Sign - Last 24 Hours 01/11/19 01/11/19 01/11/19 01/11/19 15:17 15:23 17:40 19:20 Temp 98.9 98.1 98.9 98.1 Pulse 83 83 84 Resp 18 18 B/P (MAP) 164/79 (107) 164/79 122/86 (98) Pulse Ox 95 98 94 O2 Delivery Nasal Cannula Nasal Cannula Nasal Cannula O2 Flow Rate 2.0 2.0 2.0 01/11/19 01/11/19 01/11/19 01/11/19 19:40 19:41 20:00 23:20 Temp 99.4 99.4 Pulse 81 Resp 18 B/P (MAP) 136/60 (85) Pulse Ox 98 98 100 O2 Delivery Nasal Cannula Nasal Cannula Nasal Cannula Nasal Cannula O2 Flow Rate 2.0 2.0 2.0 2.0 01/11/19 01/11/19 01/12/19 01/12/19 23:29 23:59 03:20 04:06 Temp 98.5 98.5 Pulse 88 Resp 18 17 18 B/P (MAP) 130/61 (84) Pulse Ox 98 98 100 O2 Delivery Nasal Cannula Nasal Cannula Nasal Cannula Nasal Cannula O2 Flow Rate 2.0 2.0 2.0 2.0 01/12/19 01/12/19 01/12/19 01/12/19 07:04 07:49 08:00 09:24 Temp 98.4 98.4 Pulse 85 85 Resp 17 B/P (MAP) 145/67 (93) 145/67 Pulse Ox 100 100 O2 Delivery Nasal Cannula Nasal Cannula Nasal Cannula O2 Flow Rate 2.0 2.0 2.0 01/12/19 01/12/19 09:25 09:36 Pulse 85 B/P (MAP) 145/67 O2 Delivery Nasal Cannula O2 Flow Rate 2.0 Intake and Output 01/11/19 01/11/19 01/12/19 14:59 22:59 06:59 Intake Total 60 ml 0 ml 0 ml Output Total 60 ml Balance 0 ml 0 ml 0 ml Nutrition Consultation Dietary Evaluation: Recommendations by RD: Increase Calorie Intake Comments: REC increase continuous TF to following: Osmolite 1.2@goal rate 60 ml/hr w/100 ml water flushes q4 hrs When able/appropriate, recommend switching to bolus feedings per following: Osmolite 1.5 bolus 5x/day (1 carton/237 ml per bolus) w/150 ml water flush w/each feeding Expected Outcomes/Goals: TF to meet >75% estimated needs - not met, goal ongoing Interpretation of weight loss: >20% in 1 year Malnutrition Findings: Body Fat Depletion (Non Severe: Mild Depletion Weight Status: Underweight LASTNIAL K III DO Jan 12, 2019 11:34
[2019-01-12] MEDS ORDERED: FUROSEMIDE 20 MG/2 ML VIAL. IVP ONE (11:45)
[2019-01-12] MEDS: fentaNYL PF VIAL 100 MCG/2 ML VIAL IV PRN ×2 (12:50→21:44)
[2019-01-12 14:22] VITALS: BP 130/47
[2019-01-12 19:54] VITALS: BP 167/78
[2019-01-12] MEDS: ATORVASTATIN CALCIUM 40 MG TABLET. PO SCH (21:43)
[2019-01-13 00:12] VITALS: BP 134/57
[2019-01-13] MEDS: ALBUTEROL SULFATE 2.5 MG/3 ML NEBU. NEB PRN (01:40)
[2019-01-13 03:20] VITALS: BP 178/84
[2019-01-13] MEDS: IPRATRPIUM/ALBUTEROL 0.5/2.5MG 3 ML NEBU. NEB SCH ×3 (06:28→16:12)
--- NOTE | 2019-01-13 08:16 | NUR ---
SW following pt. Insurance has approved SNU. RN and Physician notified. SW will await for dc order and proceed accordingly.
--- NOTE | 2019-01-13 08:23 | PDOC ---
Infectious Disease Note Subjective Subjective Happy with food. But feels can't breath No F/C/S/CP Still mild anxiety + cough with sputum improving. Vital Sign Vital Signs Vital Signs Date Time Temp Pulse Resp B/P (MAP) Pulse Ox O2 Delivery O2 Flow Rate FiO2 01/13/19 06:28 99 Nasal Cannula 1.0 01/13/19 03:20 98.1 82 16 178/84 (115) 98.1 Physical Exam PHYSICAL EXAM GENERAL: Sitting in bed alert, NAD. smiling HEENT: ELEONORA,- OC- clear LUNGS: clear HEART: S1, S2, paced ABDOMEN: Nondistended, soft, nontender, PEG EXTREMITIES: No edema, no cyanosis. Trace edema SKIN: Warm, dry. No generalized rash. NEURO: Coop and answering questions PIV Labs Micro Microbiology 01/04/19 Blood Culture - Final, Complete NO GROWTH AFTER 5 DAYS 01/07/19 - Final, Resulted 01/07/19 - Final, Resulted 01/07/19 - Final, Resulted 01/07/19 Gram Stain Evaluation - Final, Resulted 01/07/19 Sputum Culture - Preliminary, Resulted 01/07/19 Sputum Result 1 - Final, Resulted 01/04/19 Urine Culture - Final, Complete 01/04/19 Urine Culture Result 1 (SARAH BETH) - Final, Complete Objective Assessment SOA - PE benign - no crackles or swelling - appears comfortable Dysphagia s/p swallow 01/12 - on dysphagia diet Febrile illness source resp resolved cults neg so far Leucocytosis, improving Lactic acidosis resolved PENICILLIN allergy, but has tolerated amoxicillin per chart review Acute resp failure appears multifactorial, aspiration - s/p bronchoscopy, 01/06 culture routine resp orquidea - now extubated Overdose on OxyContin. H/O Chronic interstitial lung disease. COPD h/o severe Cardiomyopathy, EF 10-15 % CAD/CHF Depression Chronic dysphagia; s/p PEG tube for chronic vomiting AICD HTN Severe MR,not a surgical candidate Plan Plan of Care Off abx and AF ? mild anxiety Await Pulm f/u ID to sign off D/w TAMIKO JOVEL MD Jan 13, 2019 08:23
[2019-01-13 08:56] LABS: BASO # 0.1 x10^3/uL (0.0-0.2); BASO % 1 % (0-3); EOS # 3.6 x10^3/uL (0.0-0.7); EOS % 30 % (0-3); HEMATOCRIT 32.1 % (36.0-47.0); HEMOGLOBIN 10.7 g/dL (12.0-15.5); LYMPH % 17 % (24-48); MEAN CORPUSCULAR HEMOGLOBIN 30 pg (25-35); MEAN CORPUSCULAR HGB CONC 33 g/dL (31-37); MEAN CORPUSCULAR VOLUME 90 fL (79-100); MONO # 0.9 x10^3/uL (0.0-1.1); MONO % 8 % (0-9); NEUT # 5.3 x10^3uL (1.8-7.7); NEUT % 45 % (31-73); PLATELET COUNT 282 x10^3/uL (140-400); RED BLOOD COUNT 3.55 x10^6/uL (3.50-5.40); RED CELL DISTRIBUTION WIDTH 14.3 % (11.5-14.5); WHITE BLOOD COUNT 11.9 x10^3/uL (4.0-11.0)
[2019-01-13] MEDS ORDERED: FAMOTIDINE 20 MG TABLET. PO SCH (09:00)
[2019-01-13 09:18] LABS: CREATININE 0.7 mg/dL (0.6-1.0); POTASSIUM 3.6 mmol/L (3.5-5.1)
[2019-01-13] MEDS: ASPIRIN 325 MG TABLET PO SCH (09:48)
[2019-01-13] MEDS: FUROSEMIDE 20 MG TABLET PO SCH (09:49)
[2019-01-13] MEDS: CARVEDILOL 6.25 MG TABLET. PO SCH (09:49)
[2019-01-13] MEDS: CLOPIDOGREL BISULFATE 75 MG TABLET PO SCH (09:49)
[2019-01-13] MEDS: ALPRAZolam 0.25 MG TABLET PO SCH ×2 (09:49→14:05)
[2019-01-13] MEDS: LISINOPRIL 20 MG TABLET PO SCH (09:49)
[2019-01-13] MEDS: ENOXAPARIN 30 MG/0.3 ML SYRINGE. SQ SCH (09:54)
[2019-01-13 10:25] VITALS: BP 169/105
--- NOTE | 2019-01-13 11:08 | PDOC ---
PROGRESS NOTES Chief Complaint Chief Complaint Respiratory failure w/ hypoxia - Chronic Aspiration COPD exacerbation Interstitial Lung dz Dysphagia s/p PEG placement Hypokalemia, on replacement rx HTN Severe MR: not a surgical candidate Lactic acidosis, improved Cardiomyopathy, EF 10-15% CAD: s/p PCI/stent to RCA in 2014 History of Present Illness History of Present Illness Pt is a pleasant 73yo Female admitted for respiratory failure with hypoxia, COPD exacerbation and a hx of chronic aspiration. Pt resting comfortably this morning, NAD Was evaluated by PHARMACEUTICAL COMPOUNDING SUPERVISOR yesterday and upgraded to D2 diet On O2, breathing comfortable TF @ 60cc Vitals Vitals Vital Signs Date Time Temp Pulse Resp B/P (MAP) Pulse Ox O2 Delivery O2 Flow Rate FiO2 01/13/19 10:25 98.0 86 16 169/105 (126) 95 Nasal Cannula 2.0 98.0 Physical Exam General: No acute distress, Other (Resting comfortably ) Heart: Regular rate, Normal S1, Normal S2, Other (100% v-paced with underlying SR, distant heart tones) Lungs: Clear, Other (decrease bs, no crackles or wheezing, On 2L nc) Abdomen: Normal bowel sounds, Soft, No tenderness, No hepatosplenomegaly, Other (PEG tube C/D/I, s/p new peg adapter on 01/10) Extremities: No clubbing, No cyanosis, Normal pulses Skin: No rashes, No breakdown, No significant lesion, Other (PIV, ecchymosis of Left arm) Labs LABS Laboratory Tests Test 01/13/19 07:53 White Blood Count 11.9 x10^3/uL (4.0-11.0) Red Blood Count 3.55 x10^6/uL (3.50-5.40) Hemoglobin 10.7 g/dL (12.0-15.5) Hematocrit 32.1 % (36.0-47.0) Mean Corpuscular Volume 90 fL (79-100) Mean Corpuscular Hemoglobin 30 pg (25-35) Mean Corpuscular Hemoglobin Concent 33 g/dL (31-37) Red Cell Distribution Width 14.3 % (11.5-14.5) Platelet Count 282 x10^3/uL (140-400) Neutrophils (%) (Auto) 45 % (31-73) Lymphocytes (%) (Auto) 17 % (24-48) Monocytes (%) (Auto) 8 % (0-9) Eosinophils (%) (Auto) 30 % (0-3) Basophils (%) (Auto) 1 % (0-3) Neutrophils # (Auto) 5.3 x10^3uL (1.8-7.7) Lymphocytes # (Auto) 2.0 x10^3/uL (1.0-4.8) Monocytes # (Auto) 0.9 x10^3/uL (0.0-1.1) Eosinophils # (Auto) 3.6 x10^3/uL (0.0-0.7) Basophils # (Auto) 0.1 x10^3/uL (0.0-0.2) Sodium Level 143 mmol/L (136-145) Potassium Level 3.6 mmol/L (3.5-5.1) Chloride Level 104 mmol/L (98-107) Carbon Dioxide Level 32 mmol/L (21-32) Anion Gap 7 (6-14) Blood Urea Nitrogen 8 mg/dL (7-20) Creatinine 0.7 mg/dL (0.6-1.0) Estimated GFR (Cockcroft-Gault) 99.0 Glucose Level 98 mg/dL (70-99) Calcium Level 10.0 mg/dL (8.5-10.1) Review of Systems Review of Systems Pt resting comfortably Assessment and Plan Assessmemt and Plan Assessment: Respiratory failure w/ hypoxia - Chronic Aspiration COPD exacerbation Interstitial Lung dz Dysphagia s/p PEG placement Hypokalemia HTN Severe MR: not a surgical candidate Lactic acidosis, improved Cardiomyopathy, EF 10-15% CAD: s/p PCI/stent to RCA in 2014 Plan: D/c [facility] PHARMACEUTICAL COMPOUNDING SUPERVISOR working with pt, upgraded to D2 diet I.S., breathing treatments, Duonebs, Lasix 20 PO, appreciate Pulm recommendations HypoKalemia resolved PEG tube, s/p adapter replacement 01/10, appreciate GI recommendations Monitoring for S&S of infection, afebrile Abx per ID PT/OT/PHARMACEUTICAL COMPOUNDING SUPERVISOR Home meds Problems Medical Problems: (1) COPD exacerbation Status: Acute (2) Respiratory failure with hypoxia Status: Acute Comment Review of Relevant I have reviewed the following items loren (where applicable) has been applied. Labs Laboratory Tests Test 01/12/19 04:25 01/13/19 07:53 White Blood Count 10.6 x10^3/uL (4.0-11.0) 11.9 x10^3/uL (4.0-11.0) Red Blood Count 3.55 x10^6/uL (3.50-5.40) 3.55 x10^6/uL (3.50-5.40) Hemoglobin 10.6 g/dL (12.0-15.5) 10.7 g/dL (12.0-15.5) Hematocrit 32.1 % (36.0-47.0) 32.1 % (36.0-47.0) Mean Corpuscular Volume 90 fL (79-100) 90 fL (79-100) Mean Corpuscular Hemoglobin 30 pg (25-35) 30 pg (25-35) Mean Corpuscular Hemoglobin Concent 33 g/dL (31-37) 33 g/dL (31-37) Red Cell Distribution Width 14.3 % (11.5-14.5) 14.3 % (11.5-14.5) Platelet Count 238 x10^3/uL (140-400) 282 x10^3/uL (140-400) Neutrophils (%) (Auto) 42 % (31-73) 45 % (31-73) Lymphocytes (%) (Auto) 17 % (24-48) 17 % (24-48) Monocytes (%) (Auto) 8 % (0-9) 8 % (0-9) Eosinophils (%) (Auto) 31 % (0-3) 30 % (0-3) Basophils (%) (Auto) 1 % (0-3) 1 % (0-3) Neutrophils # (Auto) 4.5 x10^3uL (1.8-7.7) 5.3 x10^3uL (1.8-7.7) Lymphocytes # (Auto) 1.8 x10^3/uL (1.0-4.8) 2.0 x10^3/uL (1.0-4.8) Monocytes # (Auto) 0.9 x10^3/uL (0.0-1.1) 0.9 x10^3/uL (0.0-1.1) Eosinophils # (Auto) 3.3 x10^3/uL (0.0-0.7) 3.6 x10^3/uL (0.0-0.7) Basophils # (Auto) 0.1 x10^3/uL (0.0-0.2) 0.1 x10^3/uL (0.0-0.2) Sodium Level 146 mmol/L (136-145) 143 mmol/L (136-145) Potassium Level 3.7 mmol/L (3.5-5.1) 3.6 mmol/L (3.5-5.1) Chloride Level 105 mmol/L (98-107) 104 mmol/L (98-107) Carbon Dioxide Level 33 mmol/L (21-32) 32 mmol/L (21-32) Anion Gap 8 (6-14) 7 (6-14) Blood Urea Nitrogen 9 mg/dL (7-20) 8 mg/dL (7-20) Creatinine 0.6 mg/dL (0.6-1.0) 0.7 mg/dL (0.6-1.0) Estimated GFR (Cockcroft-Gault) 118.2 99.0 Glucose Level 96 mg/dL (70-99) 98 mg/dL (70-99) Calcium Level 9.5 mg/dL (8.5-10.1) 10.0 mg/dL (8.5-10.1) Laboratory Tests Test 01/13/19 07:53 White Blood Count 11.9 x10^3/uL (4.0-11.0) Red Blood Count 3.55 x10^6/uL (3.50-5.40) Hemoglobin 10.7 g/dL (12.0-15.5) Hematocrit 32.1 % (36.0-47.0) Mean Corpuscular Volume 90 fL (79-100) Mean Corpuscular Hemoglobin 30 pg (25-35) Mean Corpuscular Hemoglobin Concent 33 g/dL (31-37) Red Cell Distribution Width 14.3 % (11.5-14.5) Platelet Count 282 x10^3/uL (140-400) Neutrophils (%) (Auto) 45 % (31-73) Lymphocytes (%) (Auto) 17 % (24-48) Monocytes (%) (Auto) 8 % (0-9) Eosinophils (%) (Auto) 30 % (0-3) Basophils (%) (Auto) 1 % (0-3) Neutrophils # (Auto) 5.3 x10^3uL (1.8-7.7) Lymphocytes # (Auto) 2.0 x10^3/uL (1.0-4.8) Monocytes # (Auto) 0.9 x10^3/uL (0.0-1.1) Eosinophils # (Auto) 3.6 x10^3/uL (0.0-0.7) Basophils # (Auto) 0.1 x10^3/uL (0.0-0.2) Sodium Level 143 mmol/L (136-145) Potassium Level 3.6 mmol/L (3.5-5.1) Chloride Level 104 mmol/L (98-107) Carbon Dioxide Level 32 mmol/L (21-32) Anion Gap 7 (6-14) Blood Urea Nitrogen 8 mg/dL (7-20) Creatinine 0.7 mg/dL (0.6-1.0) Estimated GFR (Cockcroft-Gault) 99.0 Glucose Level 98 mg/dL (70-99) Calcium Level 10.0 mg/dL (8.5-10.1) Microbiology 01/04/19 Blood Culture - Final, Complete NO GROWTH AFTER 5 DAYS 01/07/19 - Final, Complete 01/07/19 - Final, Complete 01/07/19 - Final, Complete 01/07/19 Gram Stain Evaluation - Final, Complete 01/07/19 Sputum Culture - Final, Complete 01/07/19 Sputum Result 1 - Final, Complete 01/04/19 Urine Culture - Final, Complete 01/04/19 Urine Culture Result 1 (SARAH BETH) - Final, Complete Medications Current Medications Etomidate (Amidate) 10 mg 1X ONCE IV Last administered on 01/04/19at 11:39; Start 01/04/19 at 12:00; Stop 01/04/19 at 12:01; Status DC Succinylcholine Chloride (Anectine) 50 mg 1X ONCE IV Last administered on 01/04at 11:39; Start 01/04/19 at 12:00; Stop 01/04/19 at 12:01; Status DC Fentanyl Citrate (Fentanyl 2ml Vial) 25 mcg PRN Q1HR PRN IV SEE COMMENTS Last administered on 01/09/19 18:15; Start 01/04/19 at 11:45; Stop 01/09/19 at 20:08 ; Status DC Fentanyl Citrate (Fentanyl 2ml Vial) 50 mcg PRN Q1HR PRN IV SEE COMMENTS Last administered on 01/09/19at 15:37; Start 01/04/19 at 11:45; Stop 01/09/19 at 20:08 ; Status DC Chlorhexidine Gluconate (Peridex) 15 ml BID MM Last administered on 01/09/19at 09:29; Start 01/04/19 at 21:00; Stop 01/09/19 at 19:30; Status DC Famotidine (Pepcid Vial) 20 mg BID IVP Last administered on 01/05/19 09:04; Start 01/04/19 at 21:00; Stop 01/05/19 at 10:32; Status DC Morphine Sulfate (Morphine Sulfate) 2 mg PRN Q1HR PRN IV SEE COMMENTS. Last administered on 01/08/19at 23:42; Start 01/04/19 at 11:45; Stop 01/09/19 at 20:08 ; Status DC Midazolam HCl 100 ml @ 0 mls/hr CONT PRN IV SEE PROTOCOL Last administered on at 01:01; Start 01/04/19 at 12:00; Stop 01/07/19 at 11:43; Status DC Midazolam HCl (Versed) 5 mg STK-MED ONCE .ROUTE ; Start 01/04/19 at 12:10; Stop 01/04/19 at 12:11; Status DC Albuterol/ Ipratropium (Duoneb) 6 ml 1X ONCE NEB Last administered on at 13:12; Start 01/04/19 at 12:30; Stop 01/04/19 at 12:31; Status DC Methylprednisolone Sodium Succinate (SOLU-Medrol 125MG VIAL) 125 mg 1X ONCE IV Last administered on 01/04/19at 12:44; Start 01/04/19 at 12:30; Stop 01/04/19 at 12:31; Status DC Midazolam HCl (Versed) 5 mg STK-MED ONCE .ROUTE ; Start 01/04/19 at 12:40; Stop 01/04/19 at 12:41; Status DC Sodium Chloride 1,000 ml @ 125 mls/hr Q8H IV Last administered on 01/05/19at 06 :21; Start 01/04/19 at 14:00; Stop 01/05/19 at 13:59; Status DC Albuterol/ Ipratropium (Duoneb) 3 ml RTQID NEB Last administered on 01/05/19at 15:53; Start 01/04/19 at 16:00; Stop 01/05/19 at 15:59; Status DC Midazolam HCl (Versed) 5 mg 1X ONCE IV Last administered on 01/04/19at 11:57; Start 01/04/19 at 13:30; Stop 01/04/19 at 13:31; Status DC Midazolam HCl (Versed) 5 mg 1X ONCE IV Last administered on 01/04/19at 14:00; Start 01/04/19 at 15:15; Stop 01/04/19 at 15:16; Status DC Levofloxacin/ Dextrose 100 ml @ 100 mls/hr 1X ONCE IV Last administered on at 18:34; Start 01/04/19 at 18:00; Stop 01/04/19 at 18:59; Status DC Sodium Chloride 1,000 ml @ 1,710 mls/hr Q36M IV Last administered on at 20:39; Start 01/04/19 at 18:30; Stop 01/04/19 at 19:30; Status DC Sodium Chloride 500 ml @ 1,000 mls/hr PRN Q30MIN PRN IV SEE COMMENTS; Start at 18:00; Stop 01/10/19 at 14:29; Status DC Vancomycin HCl (Vanco Per Pharmacy) 1 each PRN DAILY PRN MC SEE COMMENTS Last administered on 01/04/19at 20:07; Start 01/04/19 at 18:00; Stop 01/05/19 at 07:48 ; Status DC Levofloxacin/ Dextrose 50 ml @ 50 mls/hr Q24H IV ; Start 01/05/19 at 18:00; Stop 01/05/19 at 18:00; Status DC Vancomycin HCl 1 gm/Sodium Chloride 250 ml @ 250 mls/hr 1X ONCE IV Last administered on 01/04/19at 19:42; Start 01/04/19 at 19:00; Stop 01/04/19 at 19:59 ; Status DC Vancomycin HCl 750 mg/Sodium Chloride 250 ml @ 250 mls/hr Q24H IV ; Start 01/05 at 20:00; Stop 01/05/19 at 20:00; Status DC Vancomycin HCl (Vancomycin Trough Level) 1 each 1X ONCE MC ; Start 01/06/19 at 19:30; Stop 01/06/19 at 19:30; Status DC Furosemide (Lasix) 20 mg 1X ONCE IVP Last administered on 01/05/19at 03:19; Start 01/05/19 at 02:45; Stop 01/05/19 at 02:46; Status DC Aspirin (Andrea Aspirin) 325 mg DAILYWBKFT PO Last administered on 01/13/19 09: 48; Start 01/05/19 at 11:00 Atorvastatin Calcium (Lipitor) 40 mg HS PO Last administered on 01/12/19 21:43 ; Start 01/05/19 at 21:00 Carvedilol (Coreg) 6.25 mg BIDWMEALS PO Last administered on 01/13/19 09:49; Start 01/05/19 at 11:00 Clopidogrel Bisulfate (Plavix) 75 mg DAILYWBKFT PO Last administered on 09:49; Start 01/05/19 at 11:00 Lisinopril (Prinivil) 2.5 mg DAILY PO Last administered on 01/10/19at 08:33; Start 01/05/19 at 11:00; Stop 01/10/19 at 15:35; Status DC Famotidine (Pepcid Vial) 20 mg DAILY IVP Last administered on 01/12/19 09:25; Start 01/06/19 at 09:00; Stop 01/12/19 at 15:20; Status DC Piperacillin Sod/ Tazobactam Sod 3.375 gm/Sodium Chloride 50 ml @ 100 mls/hr Q6HRS IV Last administered on 01/11/19at 06:00; Start 01/05/19 at 11:00; Stop 01/11/19 at 10:46; Status DC Enoxaparin Sodium (Lovenox Per Pharmacy Treatment Dosing) 1 each PRN DAILY PRN MC SEE COMMENTS; Start 01/05/19 at 10:45; Stop 01/05/19 at 14:06; Status DC Enoxaparin Sodium (Lovenox 60mg Syringe) 50 mg DAILY SQ Last administered on at 10:58; Start 01/05/19 at 11:30; Stop 01/05/19 at 14:08; Status DC Fentanyl Citrate 30 ml @ 0 mls/hr CONT PRN IV SEE PROTOCOL Last administered on 01/06/19 09:54; Start 01/05/19 at 12:15; Stop 01/07/19 at 11:43; Status DC Chlorhexidine Gluconate (Peridex) 15 ml BID MM ; Start 01/05/19 at 21:00; Status UNV Enoxaparin Sodium (Lovenox 30mg Syringe) 30 mg Q24H SQ Last administered on 01/13 09:54; Start 01/06/19 at 09:00 Albuterol/ Ipratropium (Duoneb) 3 ml RTQID NEB Last administered on 01/13/19 06 :28; Start 01/05/19 at 16:00 Sodium Chloride 1,000 ml @ 125 mls/hr Q8H IV Last administered on 01/07/19 04 :28; Start 01/05/19 at 22:00; Stop 01/07/19 at 11:43; Status DC Sodium Chloride 500 ml @ 500 mls/hr 1X ONCE IV ; Start 01/05/19 at 22:00; Stop 01/05/19 at 22:59; Status DC Furosemide (Lasix) 20 mg DAILY PO Last administered on 01/13/19 09:49; Start at 15:00 Potassium Chloride (KCl Oral Soln) 40 meq 1X ONCE PEG Last administered on 08:17; Start 01/07/19 at 07:30; Stop 01/07/19 at 07:31; Status DC Dexmedetomidine HCl 200 mcg/ Sodium Chloride 50 ml @ 0 mls/hr CONT PRN IV PER PROTOCOL Last administered on 01/09/19at 08:56; Start 01/07/19 at 14:15; Stop 01/10/19 at 14:29; Status DC Sodium Chloride 500 ml @ 500 mls/hr 1X PRN PRN IV SEE COMMENTS; Start at 14:15; Stop 01/10/19 at 14:29; Status DC Atropine Sulfate (ATROPINE 0.5mg SYRINGE) 0.5 mg PRN Q5MIN PRN IV SEE COMMENTS ; Start 01/07/19 at 14:15; Stop 01/10/19 at 14:29; Status DC Furosemide (Lasix) 20 mg 1X ONCE IVP Last administered on 01/07/19at 14:30; Start 01/07/19 at 14:30; Stop 01/07/19 at 14:31; Status DC Hydralazine HCl (Apresoline Inj) 10 mg PRN Q4HRS PRN IVP ELEVATED BP, SEE COMMENTS; Start 01/07/19 at 14:30 Potassium Chloride/Water 50 ml @ 50 mls/hr 1X ONCE IV ; Start 01/08/19 at 12:00 ; Stop 01/08/19 at 12:59; Status UNV Potassium Chloride/Water 100 ml @ 100 mls/hr Q1H IV Last administered on at 14:36; Start 01/08/19 at 12:00; Stop 01/08/19 at 13:59; Status DC Potassium Chloride/Water 100 ml @ 100 mls/hr Q1H IV Last administered on at 13:08; Start 01/09/19 at 12:00; Stop 01/09/19 at 13:59; Status DC Fentanyl Citrate (Fentanyl 2ml Vial) 50 mcg PRN Q2HR PRN IV MODERATE - SEVERE PAIN Last administered on 01/12/19 21:44; Start 01/09/19 at 20:00 Alprazolam (Xanax) 0.25 mg TID PO Last administered on 01/13/19 09:49; Start at 21:00 Tramadol HCl (Ultram) 50 mg PRN Q6HRS PRN PO MILD PAIN; Start 01/09/19 at 20:00 Oxycodone HCl (Roxicodone) 5 mg PRN Q4HRS PRN PO SEVERE PAIN Last administered on 01/12/19 14:29; Start 01/09/19 at 20:15 Albuterol Sulfate (Ventolin Neb Soln) 2.5 mg PRN Q4HRS PRN NEB SHORTNESS OF BREATH Last administered on 01/13/19 01:40; Start 01/10/19 at 04:00 Lisinopril (Prinivil) 10 mg DAILY PO Last administered on 4/2/19at 08:04; Start 01/11/19 at 09:00; Stop 01/12/19 at 08:10; Status DC Lisinopril (Prinivil) 5 mg 1X ONCE PO Last administered on 01/10/19at 16:37; Start 01/10/19 at 16:00; Stop 01/10/19 at 16:01; Status DC Potassium Chloride/Water 100 ml @ 100 mls/hr Q1H IV Last administered on at 12:26; Start 01/11/19 at 08:00; Stop 01/11/19 at 11:59; Status DC Potassium Chloride (Klor-Con) 40 meq 1X ONCE PO Last administered on 01/11/19at 08:04; Start 01/11/19 at 07:30; Stop 01/11/19 at 07:31; Status DC Lisinopril (Prinivil) 20 mg DAILY PO Last administered on 01/13/19at 09:49; Start 01/12/19 at 09:00 Furosemide (Lasix) 20 mg 1X ONCE IVP Last administered on 01/12/19at 12:41; Start 01/12/19 at 11:45; Stop 01/12/19 at 11:46; Status DC Famotidine (Pepcid) 20 mg DAILY PO Last administered on 01/13/19 09:49; Start 01/13/19 at 09:00 Active Scripts Active Clopidogrel (Clopidogrel Bisulfate) 75 Mg Tablet 75 Mg PO DAILYWBKFT 30 Days Lasix (Furosemide) 20 Mg Tablet 1 Tab PO DAILY Proair Hfa Inhaler (Albuterol Sulfate) 8.5 Gm Hfa.aer.ad 1 Puff INH PRN Q6HRS PRN 14 Days Zofran (Ondansetron Hcl) 4 Mg Tablet 1 Tab PO Q8HRS PRN Reported Alprazolam 0.25 Mg Tablet 1 Tab PO TID Flovent 110MCG Hfa (Fluticasone Propionate) 12 Gm Aer.w.adap 2 Puff IH BID Spironolactone 25 Mg Tablet 1 Tab PO DAILY Protonix (Pantoprazole Sodium) 20 Mg Tablet.dr 40 Mg PO DAILY Oxycodone Hcl 5 Mg/5 Ml Solution 5 Mg PO PRN Q4HRS PRN Lisinopril 2.5 Mg Tablet 2.5 Mg PO DAILY Guaifenesin 600 Mg Tablet.er 600 Mg PO BID Sertraline Hcl 50 Mg Tablet 50 Mg PO DAILY Tramadol Hcl 50 Mg Tablet 1 Tab PO PRN Q6HRS PRN Duoneb 0.5-3(2.5) Mg/3 Ml (Albuterol/Ipratropium) 3 Ml Ampul.neb 3 Ml NEB QID Atorvastatin Calcium 40 Mg Tablet 40 Mg PO HS Carvedilol (Carvedilol) 6.25 Mg Tablet 6.25 Mg PO BIDWMEALS Vitamin D (Cholecalciferol (Vitamin D3)) 2,000 Unit Capsule 2,000 Unit PO BIDAFTMEAL Aspirin Ec (Aspirin) 325 Mg Tablet.dr 325 Mg PO DAILY Vitals/I & O Vital Sign - Last 24 Hours 01/12/19 01/12/19 01/12/19 01/12/19 11:22 14:22 14:29 15:28 Temp 97.5 97.5 Pulse 76 Resp 18 B/P (MAP) 130/47 (74) Pulse Ox 99 99 99 O2 Delivery Nasal Cannula Nasal Cannula Nasal Cannula Nasal Cannula O2 Flow Rate 2.0 2.0 2.0 01/12/19 01/12/19 01/12/19 01/12/19 17:00 19:31 19:54 20:00 Temp 98.7 98.7 Pulse 76 80 Resp 16 B/P (MAP) 130/47 167/78 (107) Pulse Ox 99 98 O2 Delivery Nasal Cannula Nasal Cannula Nasal Cannula O2 Flow Rate 1.0 2.0 2.0 01/12/19 01/12/19 01/13/19 01/13/19 21:44 22:14 00:12 01:40 Temp 98.4 98.4 Pulse 74 Resp 18 18 16 B/P (MAP) 134/57 (82) Pulse Ox 98 98 99 99 O2 Delivery Nasal Cannula Nasal Cannula Nasal Cannula Nasal Cannula O2 Flow Rate 2.0 2.0 2.0 1.0 01/13/19 01/13/19 01/13/19 01/13/19 03:20 06:28 09:49 09:49 Temp 98.1 98.1 Pulse 82 82 82 Resp 16 B/P (MAP) 178/84 (115) 178/84 178/84 Pulse Ox 96 99 O2 Delivery Nasal Cannula Nasal Cannula O2 Flow Rate 2.0 1.0 01/13/19 10:25 Temp 98.0 98.0 Pulse 86 Resp 16 B/P (MAP) 169/105 (126) Pulse Ox 95 O2 Delivery Nasal Cannula O2 Flow Rate 2.0 Intake and Output 01/12/19 01/12/19 01/13/19 15:00 23:00 07:00 Intake Total 545 ml 200 ml 440 ml Output Total 0 ml 0 ml Balance 545 ml 200 ml 440 ml Nutrition Consultation Dietary Evaluation: Recommendations by RD: PPN/TPN Comments: changed TF to bolus per home regimen Po diet per PHARMACEUT[employer] COMPOUNDING SUPERVISOR: continue Expected Outcomes/Goals: tolerance of po intake, to meet >75% estimated needs via meals and bolus TF Interpretation of weight loss: >20% in 1 year Malnutrition Findings: Body Fat Depletion (Non Severe: Mild Depletion Weight Status: Underweight AGUILAR NI III DO Jan 13, 2019 11:08
--- NOTE | 2019-01-13 11:40 | SNU/HH DC ---
DISCHARGE ORDERS DISCHARGE INFORMATION: FINAL DIAGNOSIS Problems Medical Problems: (1) COPD exacerbation Status: Acute (2) Respiratory failure with hypoxia Status: Acute CONDITION ON DISCHARGE: Stable CODE STATUS: Code Status: Full [facility]: SNF STAY <30 DAYS: Yes HOSPICE: HOSPICE: No HOSPICE EVAL & TREAT: No LTAC: ADMIT TO LTAC: No POST DISCHARGE ORDERS: ACTIVITY ORDERS: Activity as tolerated, Other, see below WEIGHT BEARING STATUS: As tolerated DIET AFTER DISCHARGE: Cardiac WOUND/INCISION CARE: Other, see below CHECKS AFTER DISCHARGE: CHECKS AFTER DISCHARGE: Check blood press - daily TREATMENT/EQUIPMENT ORDERS: ADAPTIVE EQUIPMENT NEEDED: None RESPIRATORY EQUIPMENT NEEDED: Oxygen Physical Therapy For: Evalulation/Treatment Occupational Therapy For: Evaluation/Treatment DISCHARGE MEDICATIONS: Home Meds Active Scripts Clopidogrel Bisulfate (CLOPIDOGREL) 75 Mg Tablet, 75 MG PO DAILYWBKFT for antiplatelet for 30 Days, #30 TAB 3 Refills Prov:TERRY SCHERER MD 12/01/18 Furosemide (LASIX) 20 Mg Tablet, 1 TAB PO DAILY for chf, #30 TAB 1 Refill Prov:MIARNDA MORENO MD 10/04/18 Albuterol Sulfate (PROAIR HFA INHALER) 8.5 Gm Hfa.aer.ad, 1 PUFF INH PRN Q6HRS PRN for SHORTNESS OF BREATH for 14 Days, INHALER 0 Refills Prov:MIRANDA MORENO MD 10/04/18 Ondansetron Hcl (ZOFRAN) 4 Mg Tablet, 1 TAB PO Q8HRS PRN for NAUSEA, #20 TAB Prov:KATIANA QUIROS DO 05/19/16 Reported Medications Alprazolam (ALPRAZOLAM) 0.25 Mg Tablet, 1 TAB PO TID for anxiety, #90 TAB 11/25/18 Fluticasone Propionate (FLOVENT 110MCG HFA) 12 Gm Aer.w.adap, 2 PUFF IH BID for eospiophilic esophagitis, #1 INHALER 2 Refills 11/25/18 Spironolactone (SPIRONOLACTONE) 25 Mg Tablet, 1 TAB PO DAILY for diuretic , #90 TAB 1 Refill 11/25/18 Pantoprazole Sodium (PROTONIX) 20 Mg Tablet.dr, 40 MG PO DAILY for acid reflux, TAB 11/25/18 Oxycodone Hcl (OXYCODONE HCL) 5 Mg/5 Ml Solution, 5 MG PO PRN Q4HRS PRN for PAIN 11/25/18 Lisinopril (LISINOPRIL) 2.5 Mg Tablet, 2.5 MG PO DAILY for blood pressure 11/25/18 Guaifenesin (GUAIFENESIN) 600 Mg Tablet.er, 600 MG PO BID for cough, TAB.SR 11/25/18 Sertraline Hcl (SERTRALINE HCL) 50 Mg Tablet, 50 MG PO DAILY for depression 11/25/18 Tramadol Hcl (TRAMADOL HCL) 50 Mg Tablet, 1 TAB PO PRN Q6HRS PRN for PAIN 08/13/18 Ipratropium/Albuterol Sulfate (DUONEB 0.5-3(2.5) MG/3 ML) 3 Ml Ampul.neb, 3 ML NEB QID, EACH 04/17/18 Atorvastatin Calcium (ATORVASTATIN CALCIUM) 40 Mg Tablet, 40 MG PO HS for FOR CHOLESTEROL, #30 TAB 0 Refills 09/24/15 Carvedilol (CARVEDILOL ) 6.25 Mg Tablet, 6.25 MG PO BIDWMEALS, TAB 09/24/15 Cholecalciferol (Vitamin D3) (VITAMIN D) 2,000 Unit Capsule, 2000 UNIT PO BIDAFTMEAL 01/07/15 Aspirin (ASPIRIN EC) 325 Mg Tablet., 325 MG PO DAILY 01/07/15 AGUILAR NI III DO Jan 13, 2019 11:40
--- NOTE | 2019-01-13 12:08 | PDOC ---
Subjective: Subjective: PEG functioning. Swallowing okay but doesn't want the food here. Going to rehab today. Objective: Vital Signs: Vital Signs Date Time Temp Pulse Resp B/P (MAP) Pulse Ox O2 Delivery O2 Flow Rate FiO2 01/13/19 11:54 Nasal Cannula 1.0 01/13/19 10:25 98.0 86 16 169/105 (126) 95 98.0 Labs: Laboratory Tests Test 01/13/19 07:53 White Blood Count 11.9 x10^3/uL Red Blood Count 3.55 x10^6/uL Hemoglobin 10.7 g/dL Hematocrit 32.1 % Mean Corpuscular Volume 90 fL Mean Corpuscular Hemoglobin 30 pg Mean Corpuscular Hemoglobin Concent 33 g/dL Red Cell Distribution Width 14.3 % Platelet Count 282 x10^3/uL Neutrophils (%) (Auto) 45 % Lymphocytes (%) (Auto) 17 % Monocytes (%) (Auto) 8 % Eosinophils (%) (Auto) 30 % Basophils (%) (Auto) 1 % Neutrophils # (Auto) 5.3 x10^3uL Lymphocytes # (Auto) 2.0 x10^3/uL Monocytes # (Auto) 0.9 x10^3/uL Eosinophils # (Auto) 3.6 x10^3/uL Basophils # (Auto) 0.1 x10^3/uL Sodium Level 143 mmol/L Potassium Level 3.6 mmol/L Chloride Level 104 mmol/L Carbon Dioxide Level 32 mmol/L Anion Gap 7 Blood Urea Nitrogen 8 mg/dL Creatinine 0.7 mg/dL Estimated GFR (Cockcroft-Gault) 99.0 Glucose Level 98 mg/dL Calcium Level 10.0 mg/dL PE: GEN: NAD, sitting in bed, friend present, a few bites of breakfast eaten LUNGS: NC NEURO/PSYCH: A & O 3 - less talkative today A/P: H/o abnormal swallowing, PEG in place Chronic resp failure, HTN -- DC per primary. FARHAN AKINS Jan 13, 2019 12:08
[2019-01-13 12:26] VITALS: BP 138/76
--- NOTE | 2019-01-13 12:30 | PDOC ---
PULMONARY PROGRESS NOTES Subjective cough better with lasix EXTUBATED 01/09 Vitals Vital Signs Date Time Temp Pulse Resp B/P (MAP) Pulse Ox O2 Delivery O2 Flow Rate FiO2 01/13/19 12:26 98.7 78 17 138/76 (96) 98 Nasal Cannula 2.0 98.7 ROS: No Nausea, No Chest Pain, No Abdominal Pain General: Alert, No acute distress Lungs: Clear Cardiovascular: S1, S2 Abdomen: Soft Neuro Exam: Alert Extremities: No Edema Skin: Warm Labs Laboratory Tests Test 01/12/19 04:25 01/13/19 07:53 White Blood Count 10.6 x10^3/uL (4.0-11.0) 11.9 x10^3/uL (4.0-11.0) Red Blood Count 3.55 x10^6/uL (3.50-5.40) 3.55 x10^6/uL (3.50-5.40) Hemoglobin 10.6 g/dL (12.0-15.5) 10.7 g/dL (12.0-15.5) Hematocrit 32.1 % (36.0-47.0) 32.1 % (36.0-47.0) Mean Corpuscular Volume 90 fL (79-100) 90 fL (79-100) Mean Corpuscular Hemoglobin 30 pg (25-35) 30 pg (25-35) Mean Corpuscular Hemoglobin Concent 33 g/dL (31-37) 33 g/dL (31-37) Red Cell Distribution Width 14.3 % (11.5-14.5) 14.3 % (11.5-14.5) Platelet Count 238 x10^3/uL (140-400) 282 x10^3/uL (140-400) Neutrophils (%) (Auto) 42 % (31-73) 45 % (31-73) Lymphocytes (%) (Auto) 17 % (24-48) 17 % (24-48) Monocytes (%) (Auto) 8 % (0-9) 8 % (0-9) Eosinophils (%) (Auto) 31 % (0-3) 30 % (0-3) Basophils (%) (Auto) 1 % (0-3) 1 % (0-3) Neutrophils # (Auto) 4.5 x10^3uL (1.8-7.7) 5.3 x10^3uL (1.8-7.7) Lymphocytes # (Auto) 1.8 x10^3/uL (1.0-4.8) 2.0 x10^3/uL (1.0-4.8) Monocytes # (Auto) 0.9 x10^3/uL (0.0-1.1) 0.9 x10^3/uL (0.0-1.1) Eosinophils # (Auto) 3.3 x10^3/uL (0.0-0.7) 3.6 x10^3/uL (0.0-0.7) Basophils # (Auto) 0.1 x10^3/uL (0.0-0.2) 0.1 x10^3/uL (0.0-0.2) Sodium Level 146 mmol/L (136-145) 143 mmol/L (136-145) Potassium Level 3.7 mmol/L (3.5-5.1) 3.6 mmol/L (3.5-5.1) Chloride Level 105 mmol/L (98-107) 104 mmol/L (98-107) Carbon Dioxide Level 33 mmol/L (21-32) 32 mmol/L (21-32) Anion Gap 8 (6-14) 7 (6-14) Blood Urea Nitrogen 9 mg/dL (7-20) 8 mg/dL (7-20) Creatinine 0.6 mg/dL (0.6-1.0) 0.7 mg/dL (0.6-1.0) Estimated GFR (Cockcroft-Gault) 118.2 99.0 Glucose Level 96 mg/dL (70-99) 98 mg/dL (70-99) Calcium Level 9.5 mg/dL (8.5-10.1) 10.0 mg/dL (8.5-10.1) Laboratory Tests Test 01/13/19 07:53 White Blood Count 11.9 x10^3/uL (4.0-11.0) Red Blood Count 3.55 x10^6/uL (3.50-5.40) Hemoglobin 10.7 g/dL (12.0-15.5) Hematocrit 32.1 % (36.0-47.0) Mean Corpuscular Volume 90 fL (79-100) Mean Corpuscular Hemoglobin 30 pg (25-35) Mean Corpuscular Hemoglobin Concent 33 g/dL (31-37) Red Cell Distribution Width 14.3 % (11.5-14.5) Platelet Count 282 x10^3/uL (140-400) Neutrophils (%) (Auto) 45 % (31-73) Lymphocytes (%) (Auto) 17 % (24-48) Monocytes (%) (Auto) 8 % (0-9) Eosinophils (%) (Auto) 30 % (0-3) Basophils (%) (Auto) 1 % (0-3) Neutrophils # (Auto) 5.3 x10^3uL (1.8-7.7) Lymphocytes # (Auto) 2.0 x10^3/uL (1.0-4.8) Monocytes # (Auto) 0.9 x10^3/uL (0.0-1.1) Eosinophils # (Auto) 3.6 x10^3/uL (0.0-0.7) Basophils # (Auto) 0.1 x10^3/uL (0.0-0.2) Sodium Level 143 mmol/L (136-145) Potassium Level 3.6 mmol/L (3.5-5.1) Chloride Level 104 mmol/L (98-107) Carbon Dioxide Level 32 mmol/L (21-32) Anion Gap 7 (6-14) Blood Urea Nitrogen 8 mg/dL (7-20) Creatinine 0.7 mg/dL (0.6-1.0) Estimated GFR (Cockcroft-Gault) 99.0 Glucose Level 98 mg/dL (70-99) Calcium Level 10.0 mg/dL (8.5-10.1) Medications Active Scripts Medications Dose Route/Sig Max Daily Dose Days Date Category Clopidogrel (Clopidogrel Bisulfate) 75 Mg Tablet 75 Mg PO DAILYWBKFT 30 12/01/18 Rx Alprazolam 0.25 Mg Tablet 1 Tab PO TID 11/25/18 Reported Flovent 110MCG Hfa (Fluticasone Propionate) 12 Gm Aer.w.adap 2 Puff IH BID 11/25/18 Reported Spironolactone 25 Mg Tablet 1 Tab PO DAILY 11/25/18 Reported Protonix (Pantoprazole Sodium) 20 Mg Tablet. 40 Mg PO DAILY 11/25/18 Reported Oxycodone Hcl 5 Mg/5 Ml Solution 5 Mg PO PRN Q4HRS PRN 11/25/18 Reported Lisinopril 2.5 Mg Tablet 2.5 Mg PO DAILY 11/25/18 Reported Guaifenesin 600 Mg Tablet.er 600 Mg PO BID 11/25/18 Reported Sertraline Hcl 50 Mg Tablet 50 Mg PO DAILY 11/25/18 Reported Lasix (Furosemide) 20 Mg Tablet 1 Tab PO DAILY 10/04/18 Rx Proair Hfa Inhaler (Albuterol Sulfate) 8.5 Gm Hfa.aer.ad 1 Puff INH PRN Q6HRS PRN 14 10/04/18 Rx Tramadol Hcl 50 Mg Tablet 1 Tab PO PRN Q6HRS PRN 08/13/18 Reported Duoneb 0.5-3(2.5) Mg/3 Ml (Albuterol/Ipratropium) 3 Ml Ampul.neb 3 Ml NEB QID 04/17/18 Reported Zofran (Ondansetron Hcl) 4 Mg Tablet 1 Tab PO Q8HRS PRN 05/19/16 Rx Atorvastatin Calcium 40 Mg Tablet 40 Mg PO HS 09/24/15 Reported Carvedilol (Carvedilol) 6.25 Mg Tablet 6.25 Mg PO BIDWMEALS 09/24/15 Reported Vitamin D (Cholecalciferol (Vitamin D3)) 2,000 Unit Capsule 2,000 Unit PO BIDAFTMEAL 01/07/15 Reported Aspirin Ec (Aspirin) 325 Mg Tablet. 325 Mg PO DAILY 01/07/15 Reported Comments CXR 4/2 MILD CHF Impression . 1. Acute hypoxemic hypercapnic respiratory failure, multifactorial. ACUTE/ CHRONIC ASPIRATION S/P BRONCH 2. Overdose on OxyContin. 3. Chronic interstitial lung disease. SEC TO CHRONIC ASPIRATION 4. Chronic eating disorder, status post PEG tube placement. 5. Depression. 6. Chronic obstructive pulmonary disease. 7. Other comorbidities. 8. Severe cardiomyopathy, ejection fraction 20%./ moderate MR, 9. Coronary artery disease, status post previous stenting. 10. Acute on chronic systolic, diastolic heart failure. 11. cough, likely congestive, improved with lasix BAL ORDERED: BRONCH CULTURE Procedure Result BRONCH CULTURE Final Final report BRONCH RES 1 Final Comment Routine respiratory orquidea Performed at: DA - [facility] [address], [place], [place] [id number] 01/06 BRONCH FINDINGS: 1. Properly positioned endotracheal tube. 2. No endobronchial lesion. 3. Minimal mucous plugging in the bases. Plan . CLINICALLY BETTER SPEECH F/U REPEAT CXR REVIEWED EXTRA LASIX PRN( EF 25%) NEBS PT DOES NOT WANT TO BE ON HOSPICE SO FAR ALL CULTURES NEG ANTIBX PER ID DVT GI PROPH OK WITH DC TO JEFF BILLINGS MD Jan 13, 2019 12:30
--- NOTE | 2019-01-13 13:21 | NUR ---
YEE following pt. SW phoned and faxed orders to [facility]. Pt will transport via facility arranged w/c van at 1700. Pt's choice and right forms verbally consented by pt and copies in chart. Pt reported she has been in [facility] in the past and will notify her family about plan. Discussed with RN and Packet on chart.
[2019-01-13] MEDS: oxyCODONE IR 5 MG TABLET PO PRN (14:06)
--- NOTE | 2019-01-13 14:53 | DS ---
DATE OF DISCHARGE: 01/13/2019 ADMISSION DIAGNOSES: 1. Respiratory failure with hypoxia. 2. Chronic obstructive pulmonary disease. 3. Interstitial lung disease. 4. Dysphagia with history of PEG. 5. Hypokalemia. DISCHARGE DIAGNOSES: 1. Resolving respiratory failure. 2. Chronic obstructive pulmonary disease. 3. Debility. 4. Interstitial lung disease. 5. PEG placement. 6. Hypokalemia. 7. Hypertension. 8. Severe mitral regurgitation. 9. Lactic acidosis. 10. Cardiomyopathy with a 10-15% ejection fraction. 11. Coronary artery disease with a stent to the right coronary artery. CONSULTS: GI, Pulmonary and Infectious Disease. PROCEDURES: Bronchoscopy with bronchioalveolar lavage. HOSPITAL COURSE: The patient is a pleasant elderly female who has chronic lung disease and was admitted with respiratory failure with her known COPD. She was admitted. The above consults were obtained. She was taken for a bronchoscopy. We have given IV antibiotics, DuoNebs, steroids and oxygen, physical therapy, occupational therapy, continued her home meds. This morning when I saw and examined her, she was resting, in no apparent distress. Her heart tones were normal. Her lungs were improving. I discussed the case with the case management team. [facility] has [facility]. We plan to discharge to [facility]. Continue the current meds. DISPOSITION: [facility]. ACTIVITY: As tolerated. DIET: Honey thickened liquids per Speech Therapy and we will continue with her PEG feeds. MEDICATIONS: Please see the MRAD. TOTAL TIME ON DISCHARGE: 32 minutes. AGUILAR NI DO DR: ANDRES/murali JOB#: [id number] / [id number]
[2019-01-13 15:28] VITALS: BP 136/81
--- NOTE | 2019-01-13 17:10 | NUR ---
Patient discharged to custodial facility. Report called to nurse at [facility]. IV dc'd. All belongings with patient. Transportation here to get patient at this time. Discharge packet with scripts send with transportation specialist. Patient wheeled out in wheelchair.
== END 2019-01-13 17:10 | DRG 917 ==
LOC: ER 11:34 → 1 WEST ICU 12:57 → 6 SOUTH 01-10 15:18
PROVIDERS: ADMIT Family Medicine; ATTEND Family Medicine
PROC: 5A1955Z Respiratory Ventilation, Greater than 96 Consecutive Hours (ICD-10-PCS; 2019-01-04)
PROC: 0BH17EZ Insertion of Endotracheal Airway into Trachea, Via Natural or Artificial Opening (ICD-10-PCS; 2019-01-04)
PROC: 0B9F8ZX Drainage of Right Lower Lung Lobe, Via Natural or Artificial Opening Endoscopic, Diagnostic (ICD-10-PCS; 2019-01-06)
PROC: 0DH68UZ Insertion of Feeding Device into Stomach, Via Natural or Artificial Opening Endoscopic (ICD-10-PCS; principal; 2019-01-10)
PROC: 0DB28ZX Excision of Middle Esophagus, Via Natural or Artificial Opening Endoscopic, Diagnostic (ICD-10-PCS; 2019-01-10)
PROC: 0DP6XUZ Removal of Feeding Device from Stomach, External Approach (ICD-10-PCS; 2019-01-10)
DX: T40.2X1A Poisoning by other opioids, accidental (unintentional), initial encounter (principal); I21.4 Non-ST elevation (NSTEMI) myocardial infarction; I50.43 Acute on chronic combined systolic (congestive) and diastolic (congestive) heart failure; J96.21 Acute and chronic respiratory failure with hypoxia; J96.22 Acute and chronic respiratory failure with hypercapnia; A41.9 Sepsis, unspecified organism; J69.0 Pneumonitis due to inhalation of food and vomit; G93.40 Encephalopathy, unspecified; I42.9 Cardiomyopathy, unspecified; J44.1 Chronic obstructive pulmonary disease with (acute) exacerbation; J84.9 Interstitial pulmonary disease, unspecified; N17.9 Acute kidney failure, unspecified; K94.23 Gastrostomy malfunction; E78.5 Hyperlipidemia, unspecified; E87.6 Hypokalemia; F17.210 Nicotine dependence, cigarettes, uncomplicated; F32.9 Major depressive disorder, single episode, unspecified; F41.9 Anxiety disorder, unspecified; F50.9 Eating disorder, unspecified; G89.29 Other chronic pain; I11.0 Hypertensive heart disease with heart failure; I25.10 Atherosclerotic heart disease of native coronary artery without angina pectoris; I48.91 Unspecified atrial fibrillation; K21.9 Gastro-esophageal reflux disease without esophagitis; N20.0 Calculus of kidney; R13.13 Dysphagia, pharyngeal phase; Z82.3 Family history of stroke; Z79.01 Long term (current) use of anticoagulants; Z82.49 Family history of ischemic heart disease and other diseases of the circulatory system; Z86.59 Personal history of other mental and behavioral disorders; Z87.01 Personal history of pneumonia (recurrent); Z88.0 Allergy status to penicillin; Z90.49 Acquired absence of other specified parts of digestive tract; Z90.710 Acquired absence of both cervix and uterus; Z95.0 Presence of cardiac pacemaker; Z95.5 Presence of coronary angioplasty implant and graft; Z95.810 Presence of automatic (implantable) cardiac defibrillator; Z99.81 Dependence on supplemental oxygen; Z88.2 Allergy status to sulfonamides
CPT/HCPCS: 31500; 31622; 36415; 36600; 51702; 71045; 80048; 80053; 80061; 80307; 81001; 82550; 82805; 82962; 83605; 83735; 83880; 84145; 84484; 85007; 85025; 85379; 85384; 85610; 87040; 87070; 87086; 87205; 87641; 87804; 93005; 94002; 94003; 94640; 94760; G0480; J0330; J1650; J1940; J1956; J2250; J2270; J2543; J2930; J3010; J3370; J3480; J3490; J7030; J7050; J7613; J7620; 92526; 92610; 97110; 97116; 97530; 97535; 99291-25

== ENCOUNTER 2019-04-10 13:20 | Emergency (ER) | payer MEDICARE ==
[~2019-04-10] VITALS: Ht 170.2 cm; Wt 48.1 kg
[~2019-04-10 13:20] MED LIST changes: +BUDE0.5A NEB; +PRED20TA PO; +guaiFENesin/CODEINE 100mg/10mg PO
[2019-04-10] MEDS ORDERED: methylPREDNISolone SOD SUCC PF 125 MG/2 ML VIAL. IV ONE (14:00)
[2019-04-10] MEDS ORDERED: IPRATRPIUM/ALBUTEROL 0.5/2.5MG 3 ML NEBU. NEB ONE (14:00)
--- NOTE | 2019-04-10 14:07 | PHYS DOC ---
Past Medical History Past Medical History: CAD, CHF, COPD, Hypertension, [place] Additional Past Medical Histor: patient has a pacemaker Past Surgical History: Appendectomy, Hysterectomy, Pacemaker, Other Additional Past Surgical Histo: cardiac stents; defibrilator, PEG TUBE FOR CHRONIC VOMITING Alcohol Use: None Drug Use: None Adult General Chief Complaint Chief Complaint: SHORTNESS OF BREATH HPI HPI Patient is a 74-year-old female, former smoker, with a history of end-stage C OPD, recently hospitalized here for respiratory failure, notes from her recent hospital stay have been reviewed, who presents to the emergency department for evaluation. The patient states that for the past 2 days she has had some mild increasing shortness of breath, along with a cough productive of some clear sputum, minimal amounts. She denies any pain, including any chest pain. She has not had any nausea, vomiting. She denies any dizziness or lightheadedness, numbness, weakness, fevers or chills. Exertion seems to worsen her shortness of breath. She has been taking nebulizers at home without significant improvement in her symptoms. There are no alleviating or exacerbating factors to the p atient's symptoms, except as noted above. Review of Systems Review of Systems Constitutional: Denies fever or chills [] Eyes: Denies change in visual acuity, redness, or eye pain [] HENT: Denies nasal congestion or sore throat [] Respiratory: See history of present illness [] Cardiovascular:The patient denies any chest pain, palpitations, or orthopnea [] GI: Denies abdominal pain, nausea, vomiting, bloody stools or diarrhea [] : Denies dysuria or hematuria [] Musculoskeletal: Denies back pain or joint pain [] Integument: Denies rash or skin lesions [] Neurologic: Denies headache, focal weakness or sensory changes [] Endocrine: Denies polyuria or polydipsia [] All other systems were reviewed and found to be within normal limits, except as documented in this note. Current Medications Current Medications Current Medications Medications (Trade) Dose Ordered Sig/Lisandra Start Time Stop Time Status Last Admin Dose Admin Albuterol/ Ipratropium (Duoneb) 3 ml 1X ONCE 04/10/19 14:00 04/10/19 14:01 DC 04/10/19 14:28 3 ML Lorazepam (Ativan Inj) 0.5 mg 1X ONCE 04/10/19 15:15 04/10/19 15:16 DC 04/10/19 15:13 0.5 MG Methylprednisolone Sodium Succinate (SOLU-Medrol 125MG VIAL) 125 mg 1X ONCE 04/10/19 14:00 04/10/19 14:01 DC 04/10/19 14:26 125 MG Allergies Allergies Allergies Coded Allergies Type Severity Reaction Last Updated Verified Penicillins Allergy Intermediate hives 01/10/19 Yes Sulfa (Sulfonamide Antibiotics) Allergy Intermediate hives 08/16/18 Yes morphine Allergy Intermediate Hives 01/09/19 Yes Physical Exam Physical Exam PHYSICAL EXAM: CONSTITUTIONAL: Well developed, well nourished HEAD: normocephalic, atraumatic EENT: PERRL, EOMI. Conjunctivae normal color, sclerae non-icteric; moist mucous membranes. NECK: Supple, non-tender; no meningismus. LUNGS: There are globally diminished breath sounds, some faint crackles at the bases bilaterally, there are scattered wheezes, mild, throughout all lung alvarez. HEART: Regular rate and rhythm, no murmur CHEST: No deformity; non-tender ABDOMEN: The abdomen is soft, and non-tender, no masses or bruits. EXTREM: Normal ROM; no deformity, no calf tenderness. Normal pulses palpable in all extremities. There is no pedal edema. SKIN: No rash; no diaphoresis NEURO: Alert; normal speech and cognition; CN's grossly intact; strength grossly intact without focal deficit. BACK: No CVA TTP. Current Patient Data Vital Signs Vital Signs Date Time Temp Pulse Resp B/P (MAP) Pulse Ox O2 Delivery O2 Flow Rate FiO2 04/10/19 14:28 95 Room Air 04/10/19 13:25 97.7 69 17 176/96 (122) 97.7 Lab Values Laboratory Tests Test 04/10/19 14:13 04/10/19 14:35 04/10/19 15:42 White Blood Count 6.7 x10^3/uL (4.0-11.0) Red Blood Count 4.39 x10^6/uL (3.50-5.40) Hemoglobin 12.9 g/dL (12.0-15.5) Hematocrit 38.7 % (36.0-47.0) Mean Corpuscular Volume 88 fL (79-100) Mean Corpuscular Hemoglobin 29 pg (25-35) Mean Corpuscular Hemoglobin Concent 33 g/dL (31-37) Red Cell Distribution Width 15.4 % (11.5-14.5) H Platelet Count 246 x10^3/uL (140-400) Neutrophils (%) (Auto) 58 % (31-73) Lymphocytes (%) (Auto) 22 % (24-48) L Monocytes (%) (Auto) 7 % (0-9) Eosinophils (%) (Auto) 12 % (0-3) H Basophils (%) (Auto) 1 % (0-3) Neutrophils # (Auto) 3.9 x10^3uL (1.8-7.7) Lymphocytes # (Auto) 1.5 x10^3/uL (1.0-4.8) Monocytes # (Auto) 0.5 x10^3/uL (0.0-1.1) Eosinophils # (Auto) 0.8 x10^3/uL (0.0-0.7) H Basophils # (Auto) 0.1 x10^3/uL (0.0-0.2) Sodium Level 140 mmol/L (136-145) Potassium Level 4.1 mmol/L (3.5-5.1) Chloride Level 103 mmol/L (98-107) Carbon Dioxide Level 28 mmol/L (21-32) Anion Gap 9 (6-14) Blood Urea Nitrogen 17 mg/dL (7-20) Creatinine 0.8 mg/dL (0.6-1.0) Estimated GFR (Cockcroft-Gault) 84.6 BUN/Creatinine Ratio 21 (6-20) H Glucose Level 87 mg/dL (70-99) Calcium Level 10.2 mg/dL (8.5-10.1) H Total Bilirubin 0.3 mg/dL (0.2-1.0) Aspartate Amino Transferase (AST) 15 U/L (15-37) Alanine Aminotransferase (ALT) 15 U/L (14-59) Alkaline Phosphatase 127 U/L (46-116) H Troponin I Quantitative < 0.017 ng/mL (0.000-0.055) TG-Qby-C-Type Natriuretic Peptide 3822 pg/mL (0-449) H Total Protein 7.7 g/dL (6.4-8.2) Albumin 3.5 g/dL (3.4-5.0) Albumin/Globulin Ratio 0.8 (1.0-1.7) L O2 Saturation 91 % (92-99) L Arterial Blood pH 7.43 (7.35-7.45) Arterial Blood pCO2 at Patient Temp 40 mmHg (35-46) Arterial Blood pO2 at Patient Temp 62 mmHg (65-108) L Arterial Blood HCO3 26 mmol/L (21-28) Arterial Blood Base Excess 2 mmol/L (-3-3) FiO2 21 Prothrombin Time 13.2 SEC (11.7-14.0) Prothrombin Time INR 1.0 (0.8-1.1) Laboratory Tests 04/10/19 14:13 Laboratory Tests 04/10/19 14:13 EKG EKG []Atrial sensed, ventricular paced rhythm at a rate of 60 bpm with QRS widening there are no acute ischemic ST-T changes Radiology/Procedures Radiology/Procedures []PROCEDURE: CHEST PA & LATERAL EXAM: CHEST 2 VIEWS. HISTORY: Shortness of breath. COMPARISON: 03/23/2019. FINDINGS: Frontal and lateral views of the chest are obtained. A left-sided pacemaker/defibrillator has its leads in the right right atrium and right ventricle. Transthoracic lead is noted along the lateral aspect of the left ventricle. Hyperinflation is consistent with chronic obstructive pulmonary disease. There are calcified granulomas in the right hilum, right paratracheal lymph nodes and right upper lobe. Opacity in the right upper lobe has been present chronically and likely represents scarring. There is no pneumothorax or pleural effusion. The heart is moderately enlarged. There are atherosclerotic calcifications of the aorta. IMPRESSION: 1. Right upper lobe opacity appears chronic and likely represents scarring. 2. Chronic obstructive pulmonary disease. 3. Moderate cardiomegaly. Course & Med Decision Making Course & Med Decision Making Pertinent Labs and Imaging studies reviewed. (See chart for details) []5:10 PM: The patient's condition remains stable. She is feeling significantly better at this time after Ativan. Breathing is unlabored. Her blood gas, which was drawn on room air, is not concerning especially since the patient states that she normally wears 2 L of oxygen chronically, something she has not been on constantly while in the emergency department. Rash and saturation, on her oxygen at this time, is in the upper 90s and she is having no respiratory distress. She states that she takes Xanax, and has run out, and has an appointment scheduled with her PCP for this coming Thursday. Review of the [employer]NAGER reveals that the patient takes 0.25 mg Xanax once daily. I discussed importance of close follow-up with her PCP as scheduled, and return precautions in detail. Dragon Disclaimer Dragon Disclaimer This electronic medical record was generated, in whole or in part, using a voice recognition dictation system. Departure Departure Impression: Primary Impression: Dyspnea Additional Impressions: COPD (chronic obstructive pulmonary disease) Anxiety Disposition: HOME, SELF-CARE Condition: STABLE Referrals: VAUGHN LOPEZ MD (PCP) Patient Instructions: Anxiety and Panic Attacks, Chronic Obstructive Pulmonary Disease, Shortness of Breath Scripts Alprazolam (XANAX) 0.25 Mg Tablet 1 TAB PO DAILY, #6 TAB Prov: JALYN GILL MD 04/10/19 Problem Qualifiers JALYN GILL MD Apr 10, 2019 14:07
[2019-04-10 14:26] LABS: BASO # 0.1 x10^3/uL (0.0-0.2); BASO % 1 % (0-3); EOS # 0.8 x10^3/uL (0.0-0.7); EOS % 12 % (0-3); HEMATOCRIT 38.7 % (36.0-47.0); HEMOGLOBIN 12.9 g/dL (12.0-15.5); LYMPH # 1.5 x10^3/uL (1.0-4.8); LYMPH % 22 % (24-48); MEAN CORPUSCULAR HEMOGLOBIN 29 pg (25-35); MEAN CORPUSCULAR HGB CONC 33 g/dL (31-37); MEAN CORPUSCULAR VOLUME 88 fL (79-100); MONO # 0.5 x10^3/uL (0.0-1.1); MONO % 7 % (0-9); NEUT # 3.9 x10^3uL (1.8-7.7); NEUT % 58 % (31-73); PLATELET COUNT 246 x10^3/uL (140-400); RED BLOOD COUNT 4.39 x10^6/uL (3.50-5.40); RED CELL DISTRIBUTION WIDTH 15.4 % (11.5-14.5); WHITE BLOOD COUNT 6.7 x10^3/uL (4.0-11.0)
[2019-04-10 14:37] LABS: CALCIUM 10.2 mg/dL (8.5-10.1); CREATININE 0.8 mg/dL (0.6-1.0); GFR 84.6; POTASSIUM 4.1 mmol/L (3.5-5.1)
[2019-04-10 14:43] LABS: ALBUMIN 3.5 g/dL (3.4-5.0); ALBUMIN/GLOBULIN RATIO 0.8 (1.0-1.7); TOTAL BILIRUBIN 0.3 mg/dL (0.2-1.0); TOTAL PROTEIN 7.7 g/dL (6.4-8.2)
[2019-04-10 14:46] LABS: BASE EXCESS ABG 2 mmol/L (-3-3); HCO3 ABG 26 mmol/L (21-28); PCO2 ABG 40 mmHg (35-46); PO2 ABG 62 mmHg (65-108); SAT O2 ABG 91 % (92-99)
[2019-04-10 14:49] LABS: FIO2 ABG 21
[2019-04-10 16:01] LABS: PROTHROMBIN TIME PATIENT 13.2 SEC (11.7-14.0)
--- NOTE | 2019-04-10 16:27 | RAD ---
EXAM: CHEST 2 VIEWS. HISTORY: Shortness of breath. COMPARISON: 03/23/2019. FINDINGS: Frontal and lateral views of the chest are obtained. A left-sided pacemaker/defibrillator has its leads in the right right atrium and right ventricle. Transthoracic lead is noted along the lateral aspect of the left ventricle. Hyperinflation is consistent with chronic obstructive pulmonary disease. There are calcified granulomas in the right hilum, right paratracheal lymph nodes and right upper lobe. Opacity in the right upper lobe has been present chronically and likely represents scarring. There is no pneumothorax or pleural effusion. The heart is moderately enlarged. There are atherosclerotic calcifications of the aorta. IMPRESSION: 1. Right upper lobe opacity appears chronic and likely represents scarring. 2. Chronic obstructive pulmonary disease. 3. Moderate cardiomegaly. Electronically signed by: Dannielle Rivera MD (04/10/2019 4:24 PM) [facility]
[2019-04-10 16:30] VITALS: BP 143/91
[2019-04-10] MEDS ORDERED: ALPR0.25 PO (17:25)
--- NOTE | 2019-04-10 18:23 | EKG ---
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
--- NOTE | 2019-04-11 07:32 | EKG ---
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
== END 2019-04-10 17:43 | disposition home or self-care (01) ==
LOC: ER 13:20
DX: J44.9 Chronic obstructive pulmonary disease, unspecified (principal); F41.9 Anxiety disorder, unspecified; I11.0 Hypertensive heart disease with heart failure; I50.9 Heart failure, unspecified; I25.10 Atherosclerotic heart disease of native coronary artery without angina pectoris; I25.2 Old myocardial infarction; Z90.89 Acquired absence of other organs; Z90.710 Acquired absence of both cervix and uterus; Z95.5 Presence of coronary angioplasty implant and graft; Z95.810 Presence of automatic (implantable) cardiac defibrillator; Z88.0 Allergy status to penicillin; Z88.2 Allergy status to sulfonamides; Z88.5 Allergy status to narcotic agent
CPT/HCPCS: 36415; 36600; 71046; 80053; 82805; 83880; 84484; 85025; 85610; 93005; 94640; 96374; 96375; 99285; J2060; J2930; J7620

== ENCOUNTER 2020-04-11 17:29 | Emergency (ER) | payer MEDICARE ==
[~2020-04-11] VITALS: Ht 170.2 cm; Wt 54.5 kg
[~2020-04-11 17:29] MED LIST changes: +ALPR0.25 PO; -MINO100C PO; +MINO100C61 PO; +SIMV40TA18 PO; -SIMV40TA3 PO
--- NOTE | 2020-04-11 18:25 | PHYS DOC ---
Past Medical History Past Medical History: CAD, CHF, COPD, Hypertension, [place] Additional Past Medical Histor: patient has a pacemaker Past Surgical History: Appendectomy, Hysterectomy, Pacemaker, Other Additional Past Surgical Histo: cardiac stents; defibrilator, PEG TUBE FOR CHRONIC VOMITING Smoking Status: Former Smoker Alcohol Use: None Drug Use: None General Adult EDM: Chief Complaint: AICD FIRED OR SHOCKED HPI: HPI: Patient is a 75 year oldzro-vsmi-lzl female past medical history hypertension hyperlipidemia chf copd coronary artery disease status post stents AICD in place presents with a chief complaint of AICD discharge. Patient states she has had multiple episodes of AICD discharge starting yesterday. Patient relates discharge to fireworks going off. Patient states whenever neighbors set off fireworks she feels a discomfort in her chest the brings her down to her knees. No associated shortness of breath, nausea or vomiting. EKG performed shows a paced sinus rhythm. Pain episodes only with fireworks. Patient has no complaints of pain at this time. Device was interrogated----device is acting appropriate no electrical discharges were documented. Review of Systems: Review of Systems: Constitutional: Denies fever or chills. [] Eyes: Denies change in visual acuity. [] HENT: Denies nasal congestion or sore throat. [] Respiratory: Denies cough or shortness of breath. [] Cardiovascular: Positive chest pain positive palpitation GI: Denies abdominal pain, nausea, vomiting, bloody stools or diarrhea. [] : Denies dysuria. [] Musculoskeletal: Denies back pain or joint pain. [] Integument: Denies rash. [] Neurologic: Denies headache, focal weakness or sensory changes. [] Endocrine: Denies polyuria or polydipsia. [] Lymphatic: Denies swollen glands. [] Psychiatric: Denies depression or anxiety. [] Heart Score: HEART Score for Chest Pain: HEART Score for Chest Pain Response (Comments) Value History Slighlty/Non-Suspicious 0 ECG Nonspecific Repolarizatio 1 Age >45 - < 65 1 Risk Factors >3 Risk Factors or Hx CAD 2 Troponin >1-<3x Normal Limit 1 Total 5 Risk Factors: Risk Factors: DM, Current or recent (<one month) smoker, HTN, HLP, family history of CAD, obesity. Risk Scores: Score 0 - 3: 2.5% MACE over next 6 weeks - Discharge Home Score 4 - 6: 20.3% MACE over next 6 weeks - Admit for Clinical Observation Score 7 - 10: 72.7% MACE over next 6 weeks - Early Invasive Strategies Allergies: Allergies: Allergies Coded Allergies Type Severity Reaction Last Updated Verified Penicillins Allergy Intermediate hives 01/10/19 Yes Sulfa (Sulfonamide Antibiotics) Allergy Intermediate hives 08/16/18 Yes morphine Allergy Intermediate Hives 01/09/19 Yes Physical Exam: PE: Constitutional: Well developed, well nourished, no acute distress, non-toxic appearance. [] HENT: Normocephalic, atraumatic, bilateral external ears normal, oropharynx mois t, no oral exudates, nose normal. [] Eyes: PERRLA, EOMI, conjunctiva normal, no discharge. [] Neck: Normal range of motion, no tenderness, supple, no stridor. [] Cardiovascular:Heart rate regular rhythm, no murmur [] Lungs & Thorax: Bilateral breath sounds clear to auscultation [] Abdomen: Bowel sounds normal, soft, no tenderness, no masses, no pulsatile masses. [] Skin: Warm, dry, no erythema, no rash. [] Back: No tenderness, no CVA tenderness. [] Extremities: No tenderness, no cyanosis, no clubbing, ROM intact, no edema. [] Neurologic: Alert and oriented X 3, normal motor function, normal sensory function, no focal deficits noted. [] Psychologic: Affect normal, judgement normal, mood normal. [] Current Patient Data: Vital Signs: Vital Signs Date Time Temp Pulse Resp B/P (MAP) Pulse Ox O2 Delivery O2 Flow Rate FiO2 04/11/20 17:54 81 20 165/95 (118) 100 04/11/20 17:41 97.3 Room Air 97.3 EKG: EKG: []time 1741 rate 81 sinus rhythm intraventricular block Radiology/Procedures: Radiology/Procedures: [] Impression: Comparisons: None FINDINGS: AICD with leads terminating the right atrium and ventricle. The cardiomediastinal silhouette and pulmonary vessels are within normal limits. Calcified right hilar nodes noted. Persistent right upper lung opacity not significant changed compared to the exam from last year. Main lungs are clear. No pleural effusion. IMPRESSION: No acute pulmonary process. Electronically signed by: Elva Luna MD (04/11/2020 6:59 PM) [id number] Course & Med Decision Making: Course & Med Decision Making Pertinent Labs and Imaging studies reviewed. (See chart for details) [] Patient was evaluated for chief complaint. Work-up consisted of labs radiologic imaging and EKG. Results reviewed and discussed with patient. Patient's device interrogated no discharge were logged. Patient's BNP noted to be 700. Patient advised double her Lasix dose for the next 3 days. Patient advised to follow-up with her primary care physician as needed. Dragon Disclaimer: Dragon Disclaimer: This electronic medical record was generated, in whole or in part, using a voice recognition dictation system. Departure Departure Impression: Primary Impression: Palpitation Additional Impression: Elevated brain natriuretic peptide (BNP) level Disposition: 01 HOME, SELF-CARE Condition: STABLE Referrals: MEHUL VANN D.O. (PCP) Patient Instructions: BNP and NT-proBNP, Palpitations Justicifation of Admission Dx: Justifications for Admission: Justification of Admission Dx: N/A ELLI LIM DO Apr 11, 2020 18:24
[2020-04-11 18:27] LABS: BASO # 0.1 x10^3/uL (0.0-0.2); BASO % 1 % (0-3); EOS # 0.4 x10^3/uL (0.0-0.7); EOS % 3 % (0-3); HEMATOCRIT 48.2 % (36.0-47.0); HEMOGLOBIN 15.8 g/dL (12.0-15.5); LYMPH # 2.6 x10^3/uL (1.0-4.8); LYMPH % 18 % (24-48); MEAN CORPUSCULAR HEMOGLOBIN 29 pg (25-35); MEAN CORPUSCULAR HGB CONC 33 g/dL (31-37); MEAN CORPUSCULAR VOLUME 89 fL (79-100); MONO # 1.1 x10^3/uL (0.0-1.1); MONO % 8 % (0-9); NEUT # 10.3 x10^3/uL (1.8-7.7); NEUT % 71 % (31-73); PLATELET COUNT 250 x10^3/uL (140-400); RED BLOOD COUNT 5.44 x10^6/uL (3.50-5.40); RED CELL DISTRIBUTION WIDTH 14.9 % (11.5-14.5); WHITE BLOOD COUNT 14.5 x10^3/uL (4.0-11.0)
--- NOTE | 2020-04-11 19:02 | RAD ---
Exam: Chest one view INDICATION: AICD fired TECHNIQUE: Frontal view of the chest Comparisons: None FINDINGS: AICD with leads terminating the right atrium and ventricle. The cardiomediastinal silhouette and pulmonary vessels are within normal limits. Calcified right hilar nodes noted. Persistent right upper lung opacity not significant changed compared to the exam from last year. Main lungs are clear. No pleural effusion. IMPRESSION: No acute pulmonary process. Electronically signed by: Elva Luna MD (04/11/2020 6:59 PM) [id number]
[2020-04-11 19:33] LABS: CALCIUM 9.7 mg/dL (8.5-10.1); CREATININE 1.1 mg/dL (0.6-1.0); GFR 58.4; MAGNESIUM 2.5 mg/dL (1.8-2.4); POTASSIUM 4.1 mmol/L (3.5-5.1)
[2020-04-11 20:05] VITALS: BP 166/89
--- NOTE | 2020-04-12 06:00 | EKG ---
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
== END 2020-04-11 20:17 | disposition home or self-care (01) ==
LOC: ER 17:29
DX: R00.2 Palpitations (principal); R07.89 Other chest pain; R79.89 Other specified abnormal findings of blood chemistry; I11.0 Hypertensive heart disease with heart failure; I50.9 Heart failure, unspecified; J44.9 Chronic obstructive pulmonary disease, unspecified; I25.10 Atherosclerotic heart disease of native coronary artery without angina pectoris; Z90.49 Acquired absence of other specified parts of digestive tract; Z98.890 Other specified postprocedural states; Z90.710 Acquired absence of both cervix and uterus; Z90.89 Acquired absence of other organs; Z87.891 Personal history of nicotine dependence; Z88.0 Allergy status to penicillin; Z88.2 Allergy status to sulfonamides; Z88.6 Allergy status to analgesic agent
CPT/HCPCS: 36415; 71045; 80048; 83735; 83880; 84484; 85025; 93005; 99285

== ENCOUNTER 2021-02-08 18:58 | Emergency (ER) | payer MEDICARE ==
[~2021-02-08] VITALS: Ht 170.2 cm; Wt 48.0 kg
[~2021-02-08 18:58] MED LIST changes: -LISI-334 PO; +LISI20TA18 PO; +SERT-267 PO; -SERT50TA8 PO
--- NOTE | 2021-02-08 19:40 | PHYS DOC ---
Past Medical History Past Medical History: CAD, CHF, COPD, Hypertension, [place] Additional Past Medical Histor: patient has a pacemaker Past Surgical History: Appendectomy, Hysterectomy, Pacemaker, Other Additional Past Surgical Histo: cardiac stents; defibrilator, PEG TUBE FOR CHRONIC VOMITING Smoking Status: Current Some Day Smoker Alcohol Use: None Drug Use: None General Adult EDM: Chief Complaint: MECHANICAL FALL HPI: HPI: Patient is a 76 year old female who presents with was at his house when she tripped and fell landing on her left elbow. She states that she has sharp shooting pain going up the left elbow up into the arm and the top of the shoulder into the side of the left neck and down the arm. She states that she makes a fist she has sharp shooting pain up her arm. Patient is not wanting to move her arm at the joints but she does have range of motion of the joints. She denies numbness or tingling, focal weakness, hitting her head, LOC, dizziness, headache, vision changes, blood thinners, back pain. Review of Systems: Review of Systems: Constitutional: Denies fever or chills. [] Eyes: Denies change in visual acuity. [] HENT: Denies nasal congestion or sore throat. [] Respiratory: Denies cough or shortness of breath. [] Cardiovascular: Denies chest pain or edema. [] GI: Denies abdominal pain, nausea, vomiting, bloody stools or diarrhea. [] : Denies dysuria. [] Musculoskeletal: Denies back pain or joint pain. [] Integument: Denies rash. [] Neurologic: Denies headache, focal weakness or sensory changes. [] Endocrine: Denies polyuria or polydipsia. [] Lymphatic: Denies swollen glands. [] Psychiatric: Denies depression or anxiety. [] Heart Score: C/O Chest Pain: No Risk Factors: Risk Factors: DM, Current or recent (<one month) smoker, HTN, HLP, family history of CAD, obesity. Risk Scores: Score 0 - 3: 2.5% MACE over next 6 weeks - Discharge Home Score 4 - 6: 20.3% MACE over next 6 weeks - Admit for Clinical Observation Score 7 - 10: 72.7% MACE over next 6 weeks - Early Invasive Strategies Allergies: Allergies: Allergies Coded Allergies Type Severity Reaction Last Updated Verified Penicillins Allergy Intermediate hives 01/10/19 Yes Sulfa (Sulfonamide Antibiotics) Allergy Intermediate hives 08/16/18 Yes morphine Allergy Intermediate Hives 01/09/19 Yes Physical Exam: PE: Constitutional: Well developed, well nourished, no acute distress, non-toxic appearance. [] HENT: Normocephalic, atraumatic, bilateral external ears normal, oropharynx moist, no oral exudates, nose normal. [] Eyes: PERRLA, EOMI, conjunctiva normal, no discharge. [] Neck: Normal range of motion, no tenderness, supple, no stridor. [] Cardiovascular:Heart rate regular rhythm, no murmur [] Lungs & Thorax: Bilateral breath sounds clear to auscultation [] Abdomen: Bowel sounds normal, soft, no tenderness, no masses, no pulsatile masses. [] Skin: Warm, dry, no erythema, no rash. [] Back: No tenderness, no CVA tenderness. [] Extremities: No tenderness, no cyanosis, no clubbing, ROM intact, no edema. [] Neurologic: Alert and oriented X 3, normal motor function, normal sensory fun ction, no focal deficits noted. [] Psychologic: Affect normal, judgement normal, mood normal. Normal physical exam [] Current Patient Data: Vital Signs: Vital Signs Date Time Temp Pulse Resp B/P (MAP) Pulse Ox O2 Delivery O2 Flow Rate FiO2 02/08/21 19:00 98.6 94 18 109/65 (80) 98 Room Air 98.6 EKG: EKG: [] Radiology/Procedures: Radiology/Procedures: [] Impression: [facility] [address] [place], [place] [id number] IMAGING REPORT Signed PATIENT: JUAN LUIS REED LACCOUNT: [id number] : 1945 LOCATION: ER AGE: 76 SEX: F EXAM STATUS: PRE ER ORD. PHYSICIAN: STUART CADENA APRN REASON: FALL, PAIN PROCEDURE: CERVICAL SPINE 5V Exam: Cervical spine 5 views. Left shoulder 3 views. Left humerus 2 views. Left elbow 3 views. Left forearm 2 views. Left wrist 3 views INDICATION: Fall with pain of the left arm and neck TECHNIQUE: Frontal, lateral, bilateral oblique and odontoid views of the cervical spine. Frontal view of the left shoulder with internal and external rotation and transscapular Y views. Frontal and lateral views of the left humerus and left forearm. Frontal, lateral and oblique views of the left elbow and left wrist Comparisons: None FINDINGS: Cervical spine: Vertebral body heights are well-maintained. Straightening of cervical spine which may positional. Multilevel spondylotic change in cervical spine with degenerative disc disease throughout the mid cervical spine. Prevertebral soft tissues are unremarkable. Mild osteophytic neural foraminal stenosis noted bilaterally at C4-C5 and C5-C6. Shoulder: Bone mineralization is normal. No acute or healed fractures. Soft tissues are unremarkable. Joint spaces are well-maintained. Humerus: Bone mineralization is normal. No acute or healed fractures. Soft tissues are unremarkable. Joint spaces are well-maintained. Elbow: Bone mineralization is normal. No acute or healed fractures. Soft tissues are unremarkable. Joint spaces are well-maintained. Forearm: Bone mineralization is normal. No acute or healed fractures. Soft tissues are unremarkable. Joint spaces are well-maintained. Wrist: Bone mineralization is normal. No acute or healed fractures. Soft tissues are unremarkable. Joint spaces are well-maintained. IMPRESSION: 1. Spondylotic change in cervical spine as described above. 2. No acute osseous abnormality left shoulder. 3. No acute osseous abnormality of the left humerus. 4. No acute osseous abnormality of the left elbow. 5. No acute osseous abnormality of the left forearm. 6. No acute osseous abnormality of the left wrist. Electronically signed by: Elva Cotter MD (02/08/2021 8:17 PM) [facility] DICTATED and SIGNED BY: ELVA COTTER MD DATE: 02/08/[id number] 0 Course & Med Decision Making: Course & Med Decision Making Pertinent Labs and Imaging studies reviewed. (See chart for details) See HPI. Alert and oriented x4. Speaks in full complete sentences. Ambulatory with a steady gait. Skin pink warm and dry. No swelling, bruising, abrasions or deformities to any extremity or joints. Radial pulse strong and present. Cap refill less than 2 seconds. It is painful but patient does have full range of motion at the shoulder, elbow, wrist and in her fingers. Sensations intact. Patient rating her pain an sharp shooting 8 out of 10. There is no tenderness to any of her joints. There is no tenderness to the extremity itself. X-ray shows no acute findings. Patient is put in a shoulder sling. She is discharged home. [] Tenisha Disclaimer: Tenisha Disclaimer: This electronic medical record was generated, in whole or in part, using a voice recognition dictation system. Departure Departure Impression: Primary Impression: Arm pain, left Additional Impression: Fall Qualified Codes: W19.XXXA - Unspecified fall, initial encounter Disposition: HOME / SELF CARE / HOMELESS Condition: STABLE Referrals: MEHUL VANN D.O. (PCP) Patient Instructions: Contusion, Fall Prevention and Home Safety Additional Instructions: Follow-up with primary care provider. Drink plenty of fluids. Take ibuprofen or Tylenol for your pain. Use ice or heating pad. STUART CADENA CANOE INSPECTOR FINAL Feb 08, 2021 19:40
[2021-02-08] MEDS: HYDROcodone/APAP 5/325MG 1 TAB TABLET PO ONE (19:55)
--- NOTE | 2021-02-08 20:19 | RAD ---
Exam: Cervical spine 5 views. Left shoulder 3 views. Left humerus 2 views. Left elbow 3 views. Left f orearm 2 views. Left wrist 3 views INDICATION: Fall with pain of the left arm and neck TECHNIQUE: Frontal, lateral, bilateral oblique and odontoid views of the cervical spine. Frontal view of the left shoulder with internal and external rotation and transscapular Y views. Frontal and late ral views of the left humerus and left forearm. Frontal, lateral and oblique views of the left elbow and left wrist Comparisons: None FINDINGS: Cervical spine: Vertebral body heights are well-maintained. Straightening of cervical spine which may positional. Mul tilevel spondylotic change in cervical spine with degenerative disc disease throughout the mid cervic al spine. Prevertebral soft tissues are unremarkable. Mild osteophytic neural foraminal stenosis note d bilaterally at C4-C5 and C5-C6. Shoulder: Bone mineralization is normal. No acute or healed fractures. Soft tissues are unremarkable. Joint spa miriam are well-maintained. Humerus: Bone mineralization is normal. No acute or healed fractures. Soft tissues are unremarkable. Joint spa miriam are well-maintained. Elbow: Bone mineralization is normal. No acute or healed fractures. Soft tissues are unremarkable. Joint spa miriam are well-maintained. Forearm: Bone mineralization is normal. No acute or healed fractures. Soft tissues are unremarkable. Joint spa miriam are well-maintained. Wrist: Bone mineralization is normal. No acute or healed fractures. Soft tissues are unremarkable. Joint spa miriam are well-maintained. IMPRESSION: 1. Spondylotic change in cervical spine as described above. 2. No acute osseous abnormality left shoulder. 3. No acute osseous abnormality of the left humerus. 4. No acute osseous abnormality of the left elbow. 5. No acute osseous abnormality of the left forearm. 6. No acute osseous abnormality of the left wrist. Electronically signed by: Elva Luna MD (02/08/2021 8:17 PM) [facility]
[2021-02-08 20:50] VITALS: BP 116/70
== END 2021-02-08 20:50 | disposition home or self-care (01) ==
LOC: ER 18:58
DX: M79.602 Pain in left arm (principal); M25.522 Pain in left elbow; M50.30 Other cervical disc degeneration, unspecified cervical region; M25.512 Pain in left shoulder; M25.532 Pain in left wrist
CPT/HCPCS: 72050; 73030; 73060; 73080; 73090; 73120; 99284

== ENCOUNTER 2021-10-04 14:56 | Emergency (ER) | payer MEDICARE ==
[~2021-10-04] VITALS: Ht 170.2 cm; Wt 47.7 kg
[~2021-10-04 14:56] MED LIST changes: -DOXY100C2 PO; +DOXY100C3 PO; -LEVO250T7 PO; +LEVO250T8 PO; -LISI2.5T PO; +LISI2.5T12 PO; +[UNRECOGNIZED DRUG - CODE] PO
--- NOTE | 2021-10-04 15:43 | PHYS DOC ---
Past Medical History Past Medical History: CAD, CHF, COPD, Hypertension, [place] Additional Past Medical Histor: PACEMAKER, VERTIGO, HYPOKALEMIA,domenica button Past Surgical History: Appendectomy, Hysterectomy, Pacemaker, Other Additional Past Surgical Histo: cardiac stents; defibrilator, PEG TUBE FOR CHRONIC VOMITING Smoking Status: Current Every Day Smoker Alcohol Use: None Drug Use: None General Adult EDM: Chief Complaint: CHEST PAIN HPI: HPI: Patient is a 76 year old female that presents with left shoulder pain. Roughly 4 days ago, she noticed pain and swelling in her left shoulder with significant pain that radiates to her neck and upper back in the region of her trapezius muscle. She has had headaches. She denies trauma or recent falls and denies fever, chills, shortness of breath, chest pain or numbness in her arms or legs. Ibuprofen and massage mildly reduces pain and shoulder swelling, but oxycodone/acetaminophen does not provide symptomatic relief. The pain is aggravated by self-resolved episodes of vomiting and turning her head. She states that she has not experienced symptoms like this in the past. She has a significant heart history and has a left chest pacemaker placed. Review of Systems: Review of Systems: Fourteen body systems of review of systems have been reviewed. See HPI for pertinent positives and negative responses, other shen all other systems are negative, non-pertinent or non-contributory Heart Score: C/O Chest Pain: Yes HEART Score for Chest Pain: HEART Score for Chest Pain Response (Comments) Value History Highly Suspicious 2 ECG Normal 0 Age > 65 2 Risk Factors >3 Risk Factors or Hx CAD 2 Troponin < Normal Limit 0 Total 6 Risk Factors: Risk Factors: DM, Current or recent (<one month) smoker, HTN, HLP, family history of CAD, obesity. Risk Scores: Score 0 - 3: 2.5% MACE over next 6 weeks - Discharge Home Score 4 - 6: 20.3% MACE over next 6 weeks - Admit for Clinical Observation Score 7 - 10: 72.7% MACE over next 6 weeks - Early Invasive Strategies Allergies: Allergies: Allergies Coded Allergies Type Severity Reaction Last Updated Verified Tetanus Vaccines and Toxoid Allergy Severe Swelling 10/04/21 Yes Penicillins Allergy Intermediate hives 10/04/21 Yes Sulfa (Sulfonamide Antibiotics) Allergy Intermediate hives 10/04/21 Yes morphine Allergy Intermediate Hives 10/04/21 Yes Physical Exam: PE: Constitutional: Well developed, thin and appears malnourished, no acute distress, non-toxic appearance. HENT: Normocephalic, atraumatic, bilateral external ears normal, oropharynx moist, no oral exudates, nose normal. Eyes: PERRLA, EOMI, conjunctiva normal, no discharge. Neck: Impaired range of motion with flexion and rotation to the right with palpable spasm present to left trapezius muscle belly, no nuchal rigidity or meningeal signs, supple, no stridor. Cardiovascular: Heart rate regular, sinus rhythm, no murmurs rubs or gallops. Pacemaker present to left upper outer chest Lungs & Thorax: Bilateral breath sounds clear to auscultation Abdomen: Bowel sounds normal, soft, no tenderness, no masses, no pulsatile masses. Nonsurgical abdomen, no peritoneal signs Skin: Warm, dry, no erythema, no rash. Back: No tenderness, no CVA tenderness. Extremities: No tenderness, no cyanosis, no clubbing, ROM intact, no edema. Neurologic: Alert and oriented X 3, grossly normal motor & sensory function, no focal deficits noted. Psychologic: Anxious affect and mood Current Patient Data: Labs: Laboratory Tests Test 10/04/21 15:25 White Blood Count 13.6 x10^3/uL Red Blood Count 4.58 x10^6/uL Hemoglobin 13.5 g/dL Hematocrit 40.4 % Mean Corpuscular Volume 88 fL Mean Corpuscular Hemoglobin 30 pg Mean Corpuscular Hemoglobin Concent 34 g/dL Red Cell Distribution Width 14.7 % Platelet Count 237 x10^3/uL Neutrophils (%) (Auto) 77 % Lymphocytes (%) (Auto) 11 % Monocytes (%) (Auto) 8 % Eosinophils (%) (Auto) 3 % Basophils (%) (Auto) 1 % Neutrophils # (Auto) 10.5 x10^3/uL Lymphocytes # (Auto) 1.5 x10^3/uL Monocytes # (Auto) 1.1 x10^3/uL Eosinophils # (Auto) 0.4 x10^3/uL Basophils # (Auto) 0.1 x10^3/uL Sodium Level 135 mmol/L Potassium Level 4.0 mmol/L Chloride Level 97 mmol/L Carbon Dioxide Level 30 mmol/L Anion Gap 8 Blood Urea Nitrogen 32 mg/dL Creatinine 1.2 mg/dL Estimated GFR (Cockcroft-Gault) 52.7 BUN/Creatinine Ratio 27 Glucose Level 136 mg/dL Calcium Level 9.0 mg/dL Total Bilirubin 0.2 mg/dL Aspartate Amino Transf (AST/SGOT) 14 U/L Alanine Aminotransferase (ALT/SGPT) 17 U/L Alkaline Phosphatase 106 U/L Troponin I High Sensitivity 12 ng/L SZ-Ezh-U-Type Natriuretic Peptide 218 pg/mL Total Protein 5.8 g/dL Albumin 2.8 g/dL Albumin/Globulin Ratio 0.9 Current Medications Medications (Trade) Dose Ordered Sig/Lisandra Route PRN Reason Start Time Stop Time Status Last Admin Dose Admin Aspirin (Aspirin Chewable) 324 mg 1X ONCE PO 10/04/21 15:45 10/04/21 15:46 DC 10/04/21 15:54 Fentanyl Citrate (Fentanyl 2ml Vial) 50 mcg 1X ONCE IVP 10/04/21 15:45 10/04/21 15:46 DC 10/04/21 15:55 Fentanyl Citrate (Fentanyl 2ml Vial) 50 mcg 1X ONCE IVP 10/04/21 17:15 10/04/21 17:18 DC Orphenadrine Citrate (Norflex) 60 mg 1X ONCE IM 10/04/21 17:30 10/04/21 17:31 DC 10/04/21 17:35 Vital Signs: Vital Signs Date Time Temp Pulse Resp B/P (MAP) Pulse Ox O2 Delivery O2 Flow Rate FiO2 10/04/21 15:09 99.5 70 20 114/60 (78) 96 Room Air 99.5 EKG: EKG: EKG ordered and interpreted by myself at 1510 hrs. as ventricular paced rhythm at 70 bpm, prolonged QRS at 178 and QTC of 498 otherwise unremarkable intervals, right axis deviation, T wave inversion noted in lead I and aVL, no STEMI Radiology/Procedures: Radiology/Procedures: PROCEDURE: XR CHEST 1V.10/04/2021 4:13 PM REASON FOR STUDY: Reason: LT CHEST PAIN / Spl. Instructions: / History: . COMPARISON: Study of 04/11/2020. FINDINGS: Pacemaker device remains in place. There is some increased opacity at the left base. This could indicate early infiltrate or atelectasis. No pleural fluid is seen. There is some soft tissue prominence along the upper right mediastinum, although this is not clearly changed from prior exams. The heart appears mildly enlarged, but unchanged. IMPRESSION: Mild left basilar opacity. Electronically signed by: Jose Waller Jr., MD (10/04/2021 4:14 PM) [id number] Course & Med Decision Making: Course & Med Decision Making ABCs unremarkable HPI physical exam and comprehensive ER work-up nonconcerning for any emergent or surgical issues Patient presenting for left-sided neck pain that is likely musculoskeletal in nature, most likely diagnosis left trapezius spasm that improved with IV pain medication. Supportive care practices advised. Patient requesting more medications specifically muscle relaxers, risk benefits of these discussed at length in an elderly patient who I am concerned about is a high fall risk. She states that she is very sedentary and her provides 24/ care for her, she is adamant about receiving muscle relaxers and so, 60 mg IM orphenadrine and subsequent short-term low-dose cyclobenzaprine prescription written Patient also reported chest pain throughout visit that was more so related to left upper outer chest near her neck. Troponin and EKG unremarkable. Discussed likely atypical/noncardiac etiology as this pain is related to her left neck pain Also disclosed entirety of ER work-up with patient with concern for left lower lobe pneumonia versus atelectasis. Patient having no respiratory symptoms but in light of elevated white blood cell count and high risk patient, patient requesting antibiotics which I feel is appropriate. Doxycycline given There was no trauma or other mechanism of injury requiring need for imaging of t he neck during this ER visit. Ultimately, patient fit for discharge home with continued supportive care practices and primary care follow-up in outpatient setting Tenisha Disclaimer: Tenisha Disclaimer: This electronic medical record was generated, in whole or in part, using a voice recognition dictation system. Departure Departure Impression: Primary Impression: CAP (community acquired pneumonia) Additional Impression: Neck pain on left side Disposition: 01 HOME / SELF CARE / HOMELESS Condition: STABLE Referrals: MEHUL VANN D.O. (PCP) Additional Instructions: As discussed prior to ER departure, your vitals, physical exam and comprehensive ER work-up were nonconcerning for any emergent or surgical issues. As disclosed, you have findings concerning for early/developing left lower lobe p neumonia and so, decision was made to start you on antibiotics. Given your drug allergies, doxycycline medication was chosen with a dose taken in the ER and subsequent prescription written. Please take this as prescribed to completion and ensure you follow-up with your primary care provider regarding this. In addition, the neck pain which is left-sided is likely musculoskeletal in nature. Without trauma or other known inciting event/exposure/mechanism of injury, this will likely resolve with continued supportive care. You were given IV pain medication and subsequent muscle relaxer. I discussed my concern for giving the muscle relaxers among other medications such as narcotic pain medication given your age and fall risk. Joint decision was made to discharge you home with an extremely short term and low-dose muscle relaxer that should be used in conjunction with Tylenol, your previously prescribed Tylenol 3, and other supportive care practices such as heat application and neck stretches. Again, you need to contact your PCP to review ER visit today and need for close outpatient follow-up. If any concerning signs or symptoms present prior to outpatient follow-up please do not hesitate to come back for repeat evaluation. Is a pleasure to take care of you and I wish you the best going forward Scripts Cyclobenzaprine Hcl (CYCLOBENZAPRINE HCL) 5 Mg Tablet 1 TAB PO QHS, #5 TAB Prov: JONATHAN DIAZ DO 10/04/21 Doxycycline Hyclate (DOXYCYCLINE HYCLATE) 100 Mg Tablet 1 TAB PO BID for pneumonia, #13 TAB Prov: JONATHAN DIAZ DO 10/04/21 JONATHAN DIAZ DO Oct 04, 2021 15:43
[2021-10-04] MEDS ORDERED: fentaNYL PF VIAL 100 MCG/2 ML VIAL IVP ONE ×2 (15:45→17:15)
[2021-10-04] MEDS ORDERED: ASPIRIN CHEWABLE 81 MG TABLET. PO ONE (15:45)
[2021-10-04 15:46] LABS: BASO # 0.1 x10^3/uL (0.0-0.2); BASO % 1 % (0-3); EOS # 0.4 x10^3/uL (0.0-0.7); EOS % 3 % (0-3); HEMATOCRIT 40.4 % (36.0-47.0); HEMOGLOBIN 13.5 g/dL (12.0-15.5); LYMPH # 1.5 x10^3/uL (1.0-4.8); LYMPH % 11 % (24-48); MEAN CORPUSCULAR HEMOGLOBIN 30 pg (25-35); MEAN CORPUSCULAR HGB CONC 34 g/dL (31-37); MEAN CORPUSCULAR VOLUME 88 fL (79-100); MONO # 1.1 x10^3/uL (0.0-1.1); MONO % 8 % (0-9); NEUT # 10.5 x10^3/uL (1.8-7.7); NEUT % 77 % (31-73); PLATELET COUNT 237 x10^3/uL (140-400); RED BLOOD COUNT 4.58 x10^6/uL (3.50-5.40); RED CELL DISTRIBUTION WIDTH 14.7 % (11.5-14.5); WHITE BLOOD COUNT 13.6 x10^3/uL (4.0-11.0)
[2021-10-04 15:55] LABS: CREATININE 1.2 mg/dL (0.6-1.0); GFR 52.7
[2021-10-04 16:03] LABS: ALBUMIN 2.8 g/dL (3.4-5.0); ALBUMIN/GLOBULIN RATIO 0.9 (1.0-1.7); TOTAL BILIRUBIN 0.2 mg/dL (0.2-1.0); TOTAL PROTEIN 5.8 g/dL (6.4-8.2)
--- NOTE | 2021-10-04 16:17 | RAD ---
PROCEDURE: XR CHEST 1V.10/04/2021 4:13 PM REASON FOR STUDY: Reason: LT CHEST PAIN / Spl. Instructions: / History: . COMPARISON: Study of 04/11/2020. FINDINGS: Pacemaker device remains in place. There is some increased opacity at the left base. This c ould indicate early infiltrate or atelectasis. No pleural fluid is seen. There is some soft tissue pr ominence along the upper right mediastinum, although this is not clearly changed from prior exams. Th e heart appears mildly enlarged, but unchanged. IMPRESSION: Mild left basilar opacity. Electronically signed by: Jose Waller Jr., MD (10/04/2021 4:14 PM) [id number]
--- NOTE | 2021-10-04 16:45 | EKG ---
[facility] [address] [place] [address] Test Date: 2021-10-04 Test Time: 15:06:46 Pat Name: JUAN LUIS REED Department: Room: Gender: F Dye Maker: : 1945 Requested By: JONATHAN DIAZ Order Number: [id number] Reading MD: Rajeev Melissa MD Measurements Intervals [place] Rate: 70 P: 80 AR: 80 QRS: -121 QRSD: 178 T: 129 QT: 458 QTc: 498 Interpretive Statements V-PACED Electronically Signed On 10-07-2021 13:23:21 [employer]ORTS LEADERSHIP INSTRUCTOR by Rajeev Melissa MD
[2021-10-04] MEDS ORDERED: ORPHENADRINE CITRATE 60 MG/2 ML VIAL. IM ONE (17:30)
[2021-10-04] MEDS ORDERED: DOXY100T PO (17:52)
[2021-10-04] MEDS ORDERED: CYCL5TAB PO (17:53)
[2021-10-04] MEDS ORDERED: DOXYCYCLINE HYCLATE 100 MG TABLET PO ONE (18:00)
[2021-10-04 18:25] VITALS: BP 129/66
== END 2021-10-04 18:25 | disposition home or self-care (01) ==
LOC: ER 14:56
DX: J18.9 Pneumonia, unspecified organism (principal); M54.2 Cervicalgia; M54.6 Pain in thoracic spine; R51.9 Headache, unspecified; I11.0 Hypertensive heart disease with heart failure; I50.9 Heart failure, unspecified; J44.9 Chronic obstructive pulmonary disease, unspecified; I25.10 Atherosclerotic heart disease of native coronary artery without angina pectoris; I25.2 Old myocardial infarction; F17.200 Nicotine dependence, unspecified, uncomplicated; Z95.0 Presence of cardiac pacemaker; Z95.5 Presence of coronary angioplasty implant and graft; Z88.0 Allergy status to penicillin; Z88.2 Allergy status to sulfonamides; Z88.5 Allergy status to narcotic agent; Z88.7 Allergy status to serum and vaccine
CPT/HCPCS: 36415; 71045; 80053; 83880; 84484; 85025; 93005; 96372; 96374; 99284; J2360; J3010

== ENCOUNTER 2021-10-24 06:37 | Emergency (ER) | payer MEDICARE ==
[~2021-10-24] VITALS: Ht 160 cm; Wt 55.0 kg
[~2021-10-24 06:37] MED LIST changes: +CYCL5TAB PO; +DOXY100T PO
[2021-10-24] MEDS ORDERED: ONDANSETRON PF 4 MG/2 ML VIAL. IVP ONE ×2 (08:15→12:15)
[2021-10-24] MEDS ORDERED: IV NORMAL SALINE 1000ML BAG 1,000 ML IV ONE (08:15)
[2021-10-24] MEDS ORDERED: fentaNYL PF VIAL 100 MCG/2 ML VIAL IVP ONE (08:15)
--- NOTE | 2021-10-24 08:55 | EKG ---
[facility] [address] [place] [address] Test Date: 2021-10-24 Test Time: 08:38:28 Pat Name: JUAN LUIS REED Department: Room: Gender: F Route Sales Trainee: : 1945 Requested By: JALYN VASQUEZ Order Number: [id number] Reading MD: Jose Issa Measurements Intervals [place] Rate: 76 P: 90 FL: 76 QRS: -66 QRSD: 110 T: 15 QT: 446 QTc: 507 Interpretive Statements V PACED Electronically Signed On 10-26-2021 16:17:17 HEALTH CARE SANITARY TECHNICIAN by Jose Issa
[2021-10-24 09:02] LABS: BASO # 0.1 x10^3/uL (0.0-0.2); BASO % 1 % (0-3); EOS # 0.9 x10^3/uL (0.0-0.7); EOS % 7 % (0-3); HEMATOCRIT 42.2 % (36.0-47.0); HEMOGLOBIN 13.8 g/dL (12.0-15.5); LYMPH # 1.7 x10^3/uL (1.0-4.8); LYMPH % 13 % (24-48); MEAN CORPUSCULAR HEMOGLOBIN 29 pg (25-35); MEAN CORPUSCULAR HGB CONC 33 g/dL (31-37); MEAN CORPUSCULAR VOLUME 89 fL (79-100); MONO # 0.9 x10^3/uL (0.0-1.1); MONO % 7 % (0-9); NEUT # 9.8 x10^3/uL (1.8-7.7); NEUT % 73 % (31-73); PLATELET COUNT 286 x10^3/uL (140-400); RED BLOOD COUNT 4.76 x10^6/uL (3.50-5.40); RED CELL DISTRIBUTION WIDTH 14.2 % (11.5-14.5); WHITE BLOOD COUNT 13.4 x10^3/uL (4.0-11.0)
[2021-10-24 09:09] LABS: CALCIUM 10.1 mg/dL (8.5-10.1); GFR 65.1; POTASSIUM 3.5 mmol/L (3.5-5.1)
[2021-10-24 09:15] LABS: ALBUMIN/GLOBULIN RATIO 0.9 (1.0-1.7); TOTAL BILIRUBIN 0.2 mg/dL (0.2-1.0); TOTAL PROTEIN 6.5 g/dL (6.4-8.2)
[2021-10-24] MEDS ORDERED: IOHEXOL 300 MG/ML 100ML VIAL. IV ONE (09:15)
--- NOTE | 2021-10-24 09:15 | PHYS DOC ---
Past Medical History Past Medical History: CAD, CHF, COPD, Hypertension, [place] Additional Past Medical Histor: PACEMAKER, VERTIGO, HYPOKALEMIA,domenica button Past Surgical History: Other Additional Past Surgical Histo: G tube, throat Smoking Status: Former Smoker Alcohol Use: None Drug Use: None Adult General Chief Complaint Chief Complaint: NAUSEA[facility]VOMITING[facility] HPI Patient is a 76 year old female presenting to the emergency department for evaluation of multiple complaints including nausea vomiting diarrhea and abdominal pain that has been going on for at least the past 6 days. She says she has a PEG tube placed for esophageal spasm but she still does take in nutrition by mouth and said that she is very hungry. She says that she feels ge neralized malaise and weakness and is having difficulty getting around at home. She says that she has put her tube feedings down her PEG tube but she vomits them back up. She says that she does not have significant abdominal pain rather she feels cramping when she vomits. She is in no acute distress with normal vital signs. Review of Systems Review of Systems Constitutional: Denies fever or chills [] Eyes: Denies change in visual acuity, redness, or eye pain [] HENT: Denies nasal congestion or sore throat [] Respiratory: Denies cough or shortness of breath [] Cardiovascular: No additional information not addressed in HPI [] GI: + abdominal pain, nausea, vomiting, diarrhea [] : Denies dysuria or hematuria [] Musculoskeletal: Denies back pain or joint pain [] Integument: Denies rash or skin lesions [] Neurologic: Denies headache, focal weakness or sensory changes [] Endocrine: Denies polyuria or polydipsia [] All other systems were reviewed and found to be within normal limits, except as documented in this note. Current Medications Current Medications Current Medications Medications (Trade) Dose Ordered Sig/Lisandra Start Time Stop Time Status Last Admin Dose Admin Fentanyl Citrate (Fentanyl 2ml Vial) 50 mcg 1X ONCE 10/24/21 08:15 10/24/21 08:21 DC 10/24/21 08:52 50 MCG Info (CONTRAST GIVEN -- Rx MONITORING) 1 each PRN DAILY PRN 10/24/21 09:30 10/26/21 09:29 Iohexol (Omnipaque 300 Mg/ml) 75 ml 1X ONCE 10/24/21 09:15 10/24/21 09:17 DC 10/24/21 09:15 75 ML Ondansetron HCl (Zofran) 4 mg 1X ONCE 10/24/21 12:15 10/24/21 12:16 DC 10/24/21 12:15 4 MG Sodium Chloride 1,000 ml @ 1,000 mls/hr 1X ONCE 10/24/21 08:15 10/24/21 09:14 DC 10/24/21 08:15 1,000 MLS/HR Allergies Allergies Allergies Coded Allergies Type Severity Reaction Last Updated Verified Tetanus Vaccines and Toxoid Allergy Severe Swelling 10/24/21 Yes Penicillins Allergy Intermediate hives 10/24/21 Yes Sulfa (Sulfonamide Antibiotics) Allergy Intermediate hives 10/24/21 Yes morphine Allergy Intermediate Hives 10/24/21 Yes Physical Exam Physical Exam Constitutional: Well developed, well nourished, no acute distress, non-toxic appearance. [] HENT: Normocephalic, atraumatic, bilateral external ears normal, oropharynx moist, no oral exudates, nose normal. [] Eyes: PERRLA, EOMI, conjunctiva normal, no discharge. [] Neck: Normal range of motion, no tenderness, supple, no stridor. [] Cardiovascular:Heart rate regular rhythm, no murmur [] Lungs & Thorax: Bilateral breath sounds clear to auscultation [] Abdomen: Bowel sounds normal, soft, no tenderness, no masses, no pulsatile m asses. [] Skin: Warm, dry, no erythema, no rash. [] Back: No tenderness, no CVA tenderness. [] Extremities: No tenderness, no cyanosis, no clubbing, ROM intact, no edema. [] Neurologic: Alert and oriented X 3, normal motor function, normal sensory function, no focal deficits noted. [] Psychologic: Affect normal, judgement normal, mood normal. [] Current Patient Data Vital Signs Vital Signs Date Time Temp Pulse Resp B/P (MAP) Pulse Ox O2 Delivery O2 Flow Rate FiO2 10/24/21 13:00 100 15 145/81 (102) 98 Room Air 10/24/21 08:14 98.1 98.1 Lab Values Laboratory Tests Test 10/24/21 08:42 White Blood Count 13.4 x10^3/uL (4.0-11.0) H Red Blood Count 4.76 x10^6/uL (3.50-5.40) Hemoglobin 13.8 g/dL (12.0-15.5) Hematocrit 42.2 % (36.0-47.0) Mean Corpuscular Volume 89 fL (79-100) Mean Corpuscular Hemoglobin 29 pg (25-35) Mean Corpuscular Hemoglobin Concent 33 g/dL (31-37) Red Cell Distribution Width 14.2 % (11.5-14.5) Platelet Count 286 x10^3/uL (140-400) Neutrophils (%) (Auto) 73 % (31-73) Lymphocytes (%) (Auto) 13 % (24-48) L Monocytes (%) (Auto) 7 % (0-9) Eosinophils (%) (Auto) 7 % (0-3) H Basophils (%) (Auto) 1 % (0-3) Neutrophils # (Auto) 9.8 x10^3/uL (1.8-7.7) H Lymphocytes # (Auto) 1.7 x10^3/uL (1.0-4.8) Monocytes # (Auto) 0.9 x10^3/uL (0.0-1.1) Eosinophils # (Auto) 0.9 x10^3/uL (0.0-0.7) H Basophils # (Auto) 0.1 x10^3/uL (0.0-0.2) Sodium Level 130 mmol/L (136-145) L Potassium Level 3.5 mmol/L (3.5-5.1) Chloride Level 93 mmol/L (98-107) L Carbon Dioxide Level 32 mmol/L (21-32) Anion Gap 5 (6-14) L Blood Urea Nitrogen 19 mg/dL (7-20) Creatinine 1.0 mg/dL (0.6-1.0) Estimated GFR (Cockcroft-Gault) 65.1 BUN/Creatinine Ratio 19 (6-20) Glucose Level 130 mg/dL (70-99) H Calcium Level 10.1 mg/dL (8.5-10.1) Total Bilirubin 0.2 mg/dL (0.2-1.0) Aspartate Amino Transferase (AST) 17 U/L (15-37) Alanine Aminotransferase (ALT) 20 U/L (14-59) Alkaline Phosphatase 117 U/L (46-116) H Troponin I High Sensitivity 11 ng/L (4-50) TM-Nfp-V-Type Natriuretic Peptide 349 pg/mL (0-449) Total Protein 6.5 g/dL (6.4-8.2) Albumin 3.0 g/dL (3.4-5.0) L Albumin/Globulin Ratio 0.9 (1.0-1.7) L Lipase 70 U/L (73-393) L Thyroid Stimulating Hormone (TSH) 1.843 uIU/mL (0.358-3.74) SARS-CoV-2 RNA (FRED) Negative (Negative) SARS-CoV-2 Antigen (Rapid) Negative (NEGATIVE) Laboratory Tests 10/24/21 08:42 Laboratory Tests 10/24/21 08:42 EKG EKG Normal sinus rhythm at [address] elevation or depression normal intervals except for a mildly increased QTC. Radiology/Procedures Radiology/Procedures [] Course & Med Decision Making Course & Med Decision Making I will check labs and imaging treat her symptoms and reassess. Patient has no significant abnormalities on her work-up I did discuss all incidental findings on labs and imaging and the need for follow-up. Patient told me that she has lost 7 pounds since Viet and that she cannot hold anything down either orally or by G-tube. I told that this is very concerning given the weight loss and weakness with concerns for malnourishment and dehydration and that she has been seen for this twice now and there has been no improvement. I have recommended admission the hospital for GI consultation. Patient refuse stating that she has grandchildren coming tomorrow and she does not want to stay in the hospital at this time but she will call her GI doctor ric QUINN for further instruction. Patient is asking for medications for nausea and reflux as she has continuous burning sensation in her abdomen and she says she is not taking any PPIs or H2 blockers at this time. I will prescribe Prilosec and Zofran and told her to follow-up with her GI doctor soon as possible and come back to the emergency department with worsening pain fevers vomiting or other general concerns. Patient aware and agreeable with plan and verbalized understanding of the above instructions. Dragon Disclaimer Dragon Disclaimer This electronic medical record was generated, in whole or in part, using a voice recognition dictation system. Departure Departure Impression: Primary Impression: Weight loss Additional Impressions: Intractable nausea and vomiting Weakness generalized Disposition: HOME / SELF CARE / HOMELESS Condition: STABLE Referrals: MEHUL VANN D.O. (PCP) Patient Instructions: Nausea and Vomiting Scripts Omeprazole Magnesium (PRILOSEC OTC) 20 Mg Tablet.dr 40 MG PO DAILY for 30 Days, #60 TAB Prov: JALYN VASQUEZ DO 10/24/21 Ondansetron (ONDANSETRON ODT) 4 Mg Tab.rapdis 4 MG PO QID PRN for NAUSEA/VOMITING, #20 TAB Prov: JALYN VASQUEZ DO 10/24/21 Problem Qualifiers JALYN VASQUEZ DO Oct 24, 2021 09:15
[2021-10-24] MEDS ORDERED: CONTRAST GIVEN. MC PRN (09:30)
--- NOTE | 2021-10-24 10:09 | RAD ---
Exam Date: 10/24/2021 9:[address] ABDOMEN+PELVIS W Indication: Reason: abd pain, n,v / Spl. Instructions: omni 300 75ml / History: . TECHNIQUE: CT examination of the abdomen and pelvis was performed following the administration of no nionic intravenous contrast. One or more of the following dose reduction techniques were utilized: *Automated exposure control (AEC) *Adjustment of mA and/or kV according to patient size *Use of iterative reconstruction technique *CT scan done according to ALARA, or ALARA/IMAGE GENTLY COMPARISON: CTs from May 21, 2018 and June 22, 2018 and August 11, 2018 FINDINGS: There is a 5 mm nodule in the middle lobe on image 1 series 2, which was not present in 2018. Comple te left lower lobe atelectasis is noted. Coronary artery calcifications are noted. A percutaneous gastrostomy tube is noted. Calcified granulomas are seen in the spleen. There is a l eft renal cyst. The liver, gallbladder, spleen, pancreas, adrenal glands and kidneys are otherwise normal. Urinary bladder is normal in appearance. There is no bowel obstruction or inflammation. No evidence for acute appendicitis. Moderate atherosclerotic calcifications are seen. No lymphadenopathy or ascites is seen. Degenerative changes are seen in the spine. IMPRESSION: No evidence of acute intra-abdominal pathology. Complete left lower lobe atelectasis noted. Consider further workup including imaging of the chest. 5 mm right lung base nodule is new since 2018. According to the 2017 Fleischner Society Guidelines f or Management of Incidental Pulmonary Nodules Detected on CT, for low risk patients (minimal or absen t history of smoking or other known risk factors), non-calcified solid nodules less than or equal to 6 mm in diameter do not require routine follow up. If risk factors exist or the nodule has an upper l obe location, a follow up CT is optional in 12 months. If unchanged at that time, no further follow u p is needed. Electronically signed by: Tito Gates MD (10/24/2021 10:06 AM) [facility]
[2021-10-24 13:00] VITALS: BP 145/81
[2021-10-24] MEDS ORDERED: OMEP20TA63 PO (14:25)
[2021-10-24] MEDS ORDERED: ONDA4TAB12 PO (14:25)
== END 2021-10-24 14:46 | disposition home or self-care (01) ==
LOC: ER 06:37
DX: R11.2 Nausea with vomiting, unspecified (principal); Z20.822 Contact with and (suspected) exposure to COVID-19; R53.1 Weakness; R63.4 Abnormal weight loss; Z68.21 Body mass index [BMI] 21.0-21.9, adult; J44.9 Chronic obstructive pulmonary disease, unspecified; I11.0 Hypertensive heart disease with heart failure; I50.9 Heart failure, unspecified; I25.10 Atherosclerotic heart disease of native coronary artery without angina pectoris; I25.2 Old myocardial infarction; Z95.0 Presence of cardiac pacemaker; Z87.891 Personal history of nicotine dependence; Z88.0 Allergy status to penicillin; Z88.2 Allergy status to sulfonamides; Z88.5 Allergy status to narcotic agent; Z88.7 Allergy status to serum and vaccine
CPT/HCPCS: 36415; 74177; 80053; 83690; 83880; 84443; 84484; 85025; 87426; 93005; 96361; 96374; 96375; 96376; 99284; J2405; J3010; J7030; Q9967; U0003; U0005; 99285-25

== ENCOUNTER 2021-12-27 01:08 | Emergency (ER) | payer MEDICARE ==
[~2021-12-27] VITALS: Ht 170.2 cm; Wt 45.4 kg
[~2021-12-27 01:08] MED LIST changes: +OMEP20TA63 PO; +ONDA4TAB12 PO
[2021-12-27 02:18] LABS: CALCIUM 9.8 mg/dL (8.5-10.1); GFR 65.1; POTASSIUM 3.6 mmol/L (3.5-5.1)
[2021-12-27 02:30] VITALS: BP 129/65
--- NOTE | 2021-12-27 02:30 | ED.ADGEN ---
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 PPm Smoking Status: Current Every Day Smoker Alcohol Use: None Drug Use: None General Adult EDM: Chief Complaint: TREMORS HPI: HPI: Patient is a 76-year-old female who presents to the emergency room complaining of tremors that started over the last week. Patient states that she has been constantly [place] worse when she tries to do anything. She states they wake her out of her sleep. Patient does have chronic nutritional issues. She also has recently started sertraline 2 weeks ago. She denies any kind of pain. She states she gets small breaks from the tremors but then they return. Tremors her entire body. Review of Systems: Review of Systems: Complete ROS is negative unless otherwise documented in HPI Allergies: Allergies: Allergies Coded Allergies Type Severity Reaction Last Updated Verified Tetanus Vaccines and Toxoid Allergy Severe Swelling 12/27/21 Yes Penicillins Allergy Intermediate hives 12/27/21 Yes Sulfa (Sulfonamide Antibiotics) Allergy Intermediate hives 12/27/21 Yes morphine Allergy Intermediate Hives 12/27/21 Yes Physical Exam: PE: General: Awake, alert, NAD. Cachectic, well hydrated. Cooperative HEENT: Atraumatic, EOMI, PERRL, airway patent, moist oral mucosa Neck: Supple, trachea midline Respiratory: CTA bilaterally, normal effort, no wheezing/crackles CV: RRR, no murmur, cap refill <2 GI: Soft, nondistended, nontender, no masses MSK: No obvious deformities Skin: Warm, dry, intact Neuro: A&O x3, speech NL, sensory and motor grossly intact, no focal deficits, full body tremors Psych: Normal affect, normal mood, not suicidal or homicidal Current Patient Data: Labs: Laboratory Tests Test 12/27/21 01:55 Sodium Level 137 mmol/L (136-145) Potassium Level 3.6 mmol/L (3.5-5.1) Chloride Level 101 mmol/L (98-107) Carbon Dioxide Level 27 mmol/L (21-32) Anion Gap 9 (6-14) Blood Urea Nitrogen 15 mg/dL (7-20) Creatinine 1.0 mg/dL (0.6-1.0) Estimated GFR (Cockcroft-Gault) 65.1 Glucose Level 113 mg/dL (70-99) H Calcium Level 9.8 mg/dL (8.5-10.1) Magnesium Level 2.0 mg/dL (1.8-2.4) Laboratory Tests 12/27/21 01:55 Vital Signs: Vital Signs Date Time Temp Pulse Resp B/P (MAP) Pulse Ox O2 Delivery O2 Flow Rate FiO2 12/27/21 01:15 99.1 95 18 135/75 (95) 100 Room Air 99.1 EKG: EKG: [] Heart Score: C/O Chest Pain: N/A Risk Factors: Risk Factors: DM, Current or recent (<one month) smoker, HTN, HLP, family history of CAD, obesity. Risk Scores: Score 0 - 3: 2.5% MACE over next 6 weeks - Discharge Home Score 4 - 6: 20.3% MACE over next 6 weeks - Admit for Clinical Observation Score 7 - 10: 72.7% MACE over next 6 weeks - Early Invasive Strategies Radiology/Procedures: Radiology/Procedures: [] Course & Med Decision Making: Course & Med Decision Making Pertinent Labs and Imaging studies reviewed. (See chart for details) Patient is 76-year-old female who presents to the emergency room with full body tremors. Vitals are normal at this time. Patient otherwise has no other complaints. Is likely that her tremors are due to taking Zoloft. Did do you electrolytes to rule out other causes of tremors. Electrolytes are normal. Recommended that she stop taking the Zoloft and patient agrees. Patient's test results and vitals while in the ED were fully reviewed and discussed with the patient. Patient is stable and at this time does not need admission to the hospital. We have discussed strict return precautions and the importance of following up with their Primary Care Physician. Patient stated understanding and was given an opportunity to ask any questions. Patient is in agreement with plan. Tenisha Disclaimer: Tenisha Disclaimer: This electronic medical record was generated, in whole or in part, using a voice recognition dictation system. Departure Departure Impression: Primary Impression: Coarse tremors Additional Impression: Medication adverse effect Disposition: HOME / SELF CARE / HOMELESS Condition: STABLE Referrals: MEHUL VANN D.O. (PCP) Patient Instructions: Tremor Problem Qualifiers ZACK OAKLEY MD Dec 27, 2021 02:30
== END 2021-12-27 02:43 | disposition home or self-care (01) ==
LOC: ER 01:08
DX: G25.2 Other specified forms of tremor (principal); T43.225A Adverse effect of selective serotonin reuptake inhibitors, initial encounter; J44.9 Chronic obstructive pulmonary disease, unspecified; I11.0 Hypertensive heart disease with heart failure; I50.9 Heart failure, unspecified; I25.10 Atherosclerotic heart disease of native coronary artery without angina pectoris; I25.2 Old myocardial infarction; F17.200 Nicotine dependence, unspecified, uncomplicated; Z88.0 Allergy status to penicillin; Z88.2 Allergy status to sulfonamides; Z88.5 Allergy status to narcotic agent; Z88.7 Allergy status to serum and vaccine; Y92.89 Other specified places as the place of occurrence of the external cause
CPT/HCPCS: 36415; 80048; 83735; 99283